=== PATIENT | female | born 1955 | race Caucasian/White ===

== ENCOUNTER 2016-09-29 16:54 | Observation (INO) | payer MEDICARE, OTHER ==
[2016-09-29 20:44] LABS: ABSOLUTE EOSINOPHILS # (AUTO) 0.1 10^3/uL (0.0-0.6); ABSOLUTE LYMPHOCYTES (AUTO) 1.5 10^3/uL (0.5-4.7); ABSOLUTE MONOCYTES (AUTO) 0.5 10^3/uL (0.1-1.4); ABSOLUTE NEUT (AUTO) 3.5 10^3/uL (1.7-8.2); BASOPHILS % (AUTO) 0.2 % (0-2); EOSINOPHILS % (AUTO) 1.1 % (0-6); HEMATOCRIT 27.2 % (36.0-47.0); HEMOGLOBIN 8.8 g/dL (12.0-15.5); HGB HCT DIFFERENCE -0.8; LYMPHOCYTES % (AUTO) 26.7 % (13-45); MEAN CORPUSCULAR HEMOGLOBIN 27.4 pg (27.0-33.4); MEAN CORPUSCULAR HGB CONC 32.3 g/dL (32.0-36.0); MEAN CORPUSCULAR VOLUME 85 fl (80-97); MONOCYTES % (AUTO) 9.6 % (3-13); RED BLOOD COUNT 3.22 10^6/uL (3.72-5.28); SEGMENTED NEUTROPHILS % (AUTO) 62.4 % (42-78); WHITE BLOOD COUNT 5.6 10^3/uL (4.0-10.5)
[2016-09-29 20:57] LABS: ALANINE AMINOTRANSFERASE 22 U/L (9-52); ALBUMIN 3.6 g/dL (3.5-5.0); ALKALINE PHOSPHATASE 97 U/L (38-126); ANION GAP 12 (5-19); ASPARTATE AMINO TRANSFERASE 16 U/L (14-36); BILIRUBIN,TOTAL 0.4 mg/dL (0.2-1.3); BLOOD UREA NITROGEN 14 mg/dL (7-20); CALCIUM 8.9 mg/dL (8.4-10.2); CARBON DIOXIDE 23 mmol/L (22-30); CHLORIDE 102 mmol/L (98-107); CREATININE RESULT 1.29 mg/dL (0.52-1.25); GLUCOSE 93 mg/dL (75-110); IRON 57 ug/dL (37-170); POTASSIUM 4.6 mmol/L (3.6-5.0); SODIUM 136.7 mmol/L (137-145); TOTAL PROTEIN 5.6 g/dL (6.3-8.2)
--- NOTE | 2016-09-29 20:59 | EKG REPORT ---
SEVERITY:- BORDERLINE ECG - SINUS RHYTHM LOW VOLTAGE THROUGHOUT : Confirmed by: Juan Manuel Clarke MD 29-Sep-2016 20:58:38
[2016-09-29 21:28] LABS: THYROID STIMULATING HORMONE < 0.02 uIU/mL (0.47-4.68)
[2016-09-29 21:57] LABS: APPEARANCE,URINE CLOUDY; BILIRUBIN,URINE NEGATIVE (NEGATIVE); GLUCOSE, URINE NEGATIVE (NEGATIVE); KETONES,URINE NEGATIVE (NEGATIVE); LEUKOCYTE ESTERASE,URINE LARGE (NEGATIVE); NITRITE,URINE NEGATIVE (NEGATIVE); PROTEIN,URINE NEGATIVE (NEGATIVE); URINE SPECIFIC GRAVITY 1.004; UROBILINOGEN,URINE NEGATIVE mg/dL (<2.0)
[2016-09-29] MEDS: KETOROLAC TROMETHAMINE INJ/PF 30 MG/1 ML SDV IV SCH (22:11)
[2016-09-29] MEDS: DOXYCYCLINE HYCLATE 100 MG TABLET PO SCH (22:16)
[2016-09-29] MEDS: AZTREONAM 1 GM in DEXTROSE 5%-WATER 50 ML IV SCH (22:17)
[2016-09-30] MEDS: KETOROLAC TROMETHAMINE INJ/PF 30 MG/1 ML SDV IV SCH ×3 (03:42→12:12)
[2016-09-30] MEDS ORDERED: ONDANSETRON HCL 8 MG TABLET PO PRN (04:49)
[2016-09-30] MEDS ORDERED: CARVEDILOL PHOSPHATE 40 MG PO SCH ×2 (05:00→15:00)
[2016-09-30] MEDS ORDERED: CYANOCOBALAMIN INJ SCH (05:00)
[2016-09-30] MEDS ORDERED: (PENDING PHARMACY ID) (Losartan/Hydrochlorothiazide [Losartan-Hctz 100-25 Mg Tab] 1 TAB) PO SCH (05:00)
[2016-09-30] MEDS ORDERED: HYDROCODONE BITARTRATE 40 MG PO SCH (05:00)
[2016-09-30] MEDS: GABAPENTIN 300 MG CAPSULE PO SCH ×3 (09:03→21:31)
[2016-09-30] MEDS: CLOPIDOGREL BISULFATE 75 MG TABLET PO SCH (09:04)
[2016-09-30] MEDS: ATORVASTATIN CALCIUM 40 MG TABLET PO SCH (09:04)
[2016-09-30] MEDS: DOXYCYCLINE HYCLATE 100 MG TABLET PO SCH ×2 (09:04→17:00)
[2016-09-30] MEDS: AZTREONAM 1 GM in DEXTROSE 5%-WATER 50 ML IV SCH ×3 (09:05→21:30)
[2016-09-30] MEDS: LUBIPROSTONE 24 MCG CAPSULE PO SCH ×2 (10:27→16:59)
[2016-09-30] MEDS: HYDROXYCHLOROQUINE SULFATE 200 MG TABLET PO SCH ×2 (10:27→17:00)
[2016-09-30] MEDS ORDERED: IRON SUCROSE COMPLEX INJ/PF 100 MG/5 ML SDV IV ONE (14:18)
[2016-09-30] MEDS ORDERED: KETOROLAC TROMETHAMINE INJ/PF 30 MG/1 ML SDV IV ONE (15:00)
[2016-09-30] MEDS ORDERED: HYDROCODONE/ACETAMINOPHEN 10-325 MG TABLET PO ONE (15:45)
[2016-09-30 16:03] LABS: ABSOLUTE LYMPHOCYTES (AUTO) 0.8 10^3/uL (0.5-4.7); ABSOLUTE MONOCYTES (AUTO) 0.5 10^3/uL (0.1-1.4); ABSOLUTE NEUT (AUTO) 5.9 10^3/uL (1.7-8.2); BASOPHILS % (AUTO) 0.1 % (0-2); EOSINOPHILS % (AUTO) 0.7 % (0-6); HEMOGLOBIN 8.3 g/dL (12.0-15.5); HGB HCT DIFFERENCE -0.1; MEAN CORPUSCULAR HEMOGLOBIN 27.7 pg (27.0-33.4); MEAN CORPUSCULAR VOLUME 84 fl (80-97); MONOCYTES % (AUTO) 7.4 % (3-13); RED BLOOD COUNT 2.99 10^6/uL (3.72-5.28); RED CELL DISTRIBUTION WIDTH 13.7 % (11.5-14.0); SEGMENTED NEUTROPHILS % (AUTO) 80.8 % (42-78); WHITE BLOOD COUNT 7.3 10^3/uL (4.0-10.5)
[2016-09-30 16:20] LABS: ALANINE AMINOTRANSFERASE 23 U/L (9-52); ALBUMIN 3.3 g/dL (3.5-5.0); ALKALINE PHOSPHATASE 95 U/L (38-126); ANION GAP 9 (5-19); ASPARTATE AMINO TRANSFERASE 18 U/L (14-36); BILIRUBIN,TOTAL 0.4 mg/dL (0.2-1.3); BLOOD UREA NITROGEN 20 mg/dL (7-20); CALCIUM 8.6 mg/dL (8.4-10.2); CARBON DIOXIDE 24 mmol/L (22-30); CHLORIDE 101 mmol/L (98-107); CREATININE RESULT 1.35 mg/dL (0.52-1.25); GLUCOSE 89 mg/dL (75-110); POTASSIUM 5.1 mmol/L (3.6-5.0); SODIUM 134.4 mmol/L (137-145); TOTAL PROTEIN 5.2 g/dL (6.3-8.2)
[2016-09-30] MEDS ORDERED: HYDROCODONE/ACETAMINOPHEN 10-325 MG TABLET PO SCH (18:00)
--- NOTE | 2016-09-30 18:08 | PDOC H&P ---
History of Present Illness Admission Date/PCP: 09/29/16 17:34 IAN MUÑOZ, History of Present Illness: VALENTE MUNOZ is a 61 year old female, she came to the office because of cellulitis of the right breast, she has a history of recurrent cellulitis of the right breast. She also complained of swelling of the the right side of the body, in the office, she was evaluated. She has cellulitis of the right breast on that is also increased extracellular volume of the lower extremities, right more than left. Past Medical History Cardiac Medical History: Reports: Congestive Heart Failure, Coronary Artery Disease, DVT, Myocardial Infarction - ? x 12 yrs ago, Hyperlipidema, Hypertension, Pulmonary Embolism Pulmonary Medical History: Reports: Bronchitis, Chronic Obstructive Pulmonary Disease (COPD) Endocrine Medical History: Reports: Hypothyroidism, Other - Syndrome of inappropriate ADH secretion Malignancy Medical History: Reports: Cervical Cancer, Ovarian Cancer GI Medical History: Reports: Gastroesophageal Reflux Disease, Hiatal Hernia - Repaired Musculoskeltal Medical History: Reports: Arthritis - Lupus, Fibromyalgia - Lupus Skin Medical History: Reports: Other - Systemic lupus erythematosus Psychiatric Medical History: Reports: Depression Hematology: Reports: Anemia Infectious Medical History: Reports: Clostridium Difficile - Was negative in October2015. Not yet successfully collected stool Past Surgical History Past Surgical History: Reports: Appendectomy, Cardiac Catheterization - X2, Section, Cholecystectomy, Coronary Stent - 3 stents, Herniorrhaphy, Hysterectomy, Orthopedic Surgery - Right knee, bilateral knee replacements and hip replacement metal plate in, Tonsillectomy Social History Smoking Status: Former Smoker Number of Years Smokin Last Time Smoked: 2012 Frequency of Alcohol Use: Occasional Hx Recreational Drug Use: No Drugs: None Hx Prescription Drug Abuse: No Family History Family History: Arthritis, COPD, Hyperlipidemia, Hypertension, Malignancy, Thyroid Disfunction Parental Family History Reviewed: Yes Children Family History Reviewed: Yes Sibling(s) Family History Reviewed.: Yes Medication/Allergy Home Medications: Atorvastatin Calcium 40 mg PO DAILY 08/25/16 Carvedilol Phosphate [Coreg CR 40 mg Ext. Release Capsule] 40 mg PO DAILY Clopidogrel Bisulfate [Clopidogrel] 75 mg PO DAILY 08/25/16 Cyanocobalamin (Vitamin B-12) [Vitamin B-12] 1 ml INJ ASDIR 08/25/16 Gabapentin 600 mg PO TID 08/25/16 Hydrocodone Bit/Acetaminophen [Hydrocodon-Acetaminophn 10-325] 10 - 325 mg PO Q6 08/25/16 Hydrocodone Bitartrate [Zohydro ER] 40 mg PO Q12 08/25/16 Hydroxychloroquine Sulfate 200 mg PO BID 08/25/16 Ipratropium/Albuterol Sulfate [Duoneb 3 ml Ampul] 2.5 mg IH PRN PRN 08/25/16 Levothyroxine Sodium 100 mcg PO DAILY #0 08/25/16 Losartan/Hydrochlorothiazide [Losartan-Hctz 100-25 mg Tab] 1 tab PO DAILY Lubiprostone [Amitiza 24 Mcg Capsule] 24 mcg PO BIDBS 08/25/16 Ondansetron HCl [Zofran 8 mg Tablet] 8 mg PO TIDP PRN 08/25/16 Promethazine HCl 25 mg PO Q8HP PRN 08/25/16 Tolvaptan [Samsca 15 mg Tablet] 15 mg PO DAILY@1930 #30 tablet 08/25/16 Allergies/Adverse Reactions: hydrocortisone [From Cortizone-10] Allergy (Severe, Verified 12/13/15 18:58) Anaphylaxis irbesartan [From Avapro] Allergy (Severe, Verified 12/13/15 18:58) swelling of face levofloxacin [From Levaquin] Allergy (Severe, Verified 12/13/15 18:58) GI upset/lips swell lidocaine [Lidocaine] Allergy (Severe, Verified 12/13/15 18:58) Anaphylaxis methadone [Methadone] Allergy (Severe, Verified 12/13/15 18:58) eyes swell nitrofurantoin macrocrystalline [From Macrobid] Allergy (Severe, Verified 10:34) Generalized edema Penicillins Allergy (Severe, Verified 12/13/15 18:58) eyes swelled pregabalin [From Lyrica] Allergy (Severe, Verified 12/13/15 18:58) Equilibrium Issues venom-honey bee [bee venom (honey bee)] Allergy (Verified 03/23/16 14:35) Anaphylaxis ciprofloxacin [From Cipro] Adverse Reaction (Severe, Verified 12/13/15 18:58) GI upset Review of Systems Constitutional: ABSENT: as per HPI, anorexia, chills, fatigue, fever(s), headache(s), night sweats, weakness, weight gain, weight loss, other Eyes: ABSENT: as per HPI, visual disturbances, other Ears: ABSENT: as per HPI, hearing changes, other Breasts: PRESENT: as per HPI Cardiovascular: ABSENT: as per HPI, chest pain, dyspnea on exertion, edema, orthropnea, palpitations, other Gastrointestinal: ABSENT: as per HPI, abdominal pain, bloating, coffee ground emesis, constipation, diarrhea, dysphagia, heartburn, hematemesis, hematochezia , melena, nausea, vomiting, other Endocrine: ABSENT: as per HPI, cold intolerance, flushing, heat intolerance, menstrual abnormalities, polydipsia, polyphagia, polyuria, other Physical Exam Vital Signs: Temp Pulse Resp BP Pulse Ox 97.9 F 76 16 121/52 L 99 09/30/16 15:30 09/30/16 15:30 09/30/16 15:30 09/30/16 15:30 09/30/16 15:30 Intake & Output 09/29/16 09/30/16 10/01/16 06:59 06:59 06:59 Intake Total 1081 740 Output Total 1400 400 Balance -319 340 Weight 98.1 kg General appearance: PRESENT: no acute distress Eye exam: PRESENT: PERRLA Mouth exam: PRESENT: moist Neck exam: PRESENT: full ROM Respiratory exam: PRESENT: clear to auscultation martínez Cardiovascular exam: PRESENT: +S1, +S2 GI/Abdominal exam: PRESENT: soft Extremities exam: PRESENT: pedal edema Musculoskeletal exam: PRESENT: other - lower extremity swelling Neurological exam: PRESENT: alert, CN II-XII grossly intact Skin exam: PRESENT: other - There is erythema, induration, tenderness of the right breast Results Laboratory Results: 09/30/16 15:55 09/30/16 15:55 09/29/16 09/29/16 09/29/16 20:25 20:25 20:25 WBC 5.6 RBC 3.22 L Hgb 8.8 L Hct 27.2 L MCV 85 MCH 27.4 MCHC 32.3 RDW 14.0 Plt Count 225 Seg Neutrophils % 62.4 Lymphocytes % 26.7 Monocytes % 9.6 Eosinophils % 1.1 Basophils % 0.2 Absolute Neutrophils 3.5 Absolute Lymphocytes 1.5 Absolute Monocytes 0.5 Absolute Eosinophils 0.1 Absolute Basophils 0.0 Sodium 136.7 L Potassium 4.6 Chloride 102 Carbon Dioxide 23 Anion Gap 12 BUN 14 Creatinine 1.29 H Est GFR ( Amer) 51 L Est GFR (Non-Af Amer) 42 L Glucose 93 Calcium 8.9 Iron 57 TIBC % Saturation Ferritin 143.00 Total Bilirubin 0.4 AST 16 ALT 22 Alkaline Phosphatase 97 Total Protein 5.6 L Albumin 3.6 TSH < 0.02 L Free T4 1.86 Free T3 pg/mL 3.40 Urine Color Urine Appearance Urine pH Ur Specific [place] Urine Protein Urine Glucose (UA) Urine Ketones Urine Blood Urine Nitrite Ur Leukocyte Esterase Urine WBC (Auto) Urine RBC (Auto) 09/29/16 09/29/16 09/30/16 20:25 21:00 15:55 WBC 7.3 RBC 2.99 L Hgb 8.3 L Hct 25.0 L MCV 84 MCH 27.7 MCHC 33.0 RDW 13.7 Plt Count 198 Seg Neutrophils % 80.8 H Lymphocytes % 11.0 L Monocytes % 7.4 Eosinophils % 0.7 Basophils % 0.1 Absolute Neutrophils 5.9 Absolute Lymphocytes 0.8 Absolute Monocytes 0.5 Absolute Eosinophils 0.0 Absolute Basophils 0.0 Sodium Potassium Chloride Carbon Dioxide Anion Gap BUN Creatinine Est GFR ( Amer) Est GFR (Non-Af Amer) Glucose Calcium Iron 57 TIBC 217 L % Saturation 26 Ferritin Total Bilirubin AST ALT Alkaline Phosphatase Total Protein Albumin TSH Free T4 Free T3 pg/mL Urine Color YELLOW Urine Appearance CLOUDY Urine pH 6.0 Ur Specific [place] 1.004 Urine Protein NEGATIVE Urine Glucose (UA) NEGATIVE Urine Ketones NEGATIVE Urine Blood SMALL H Urine Nitrite NEGATIVE Ur Leukocyte Esterase LARGE H Urine WBC (Auto) 161 Urine RBC (Auto) 4 09/30/16 15:55 WBC RBC Hgb Hct MCV MCH MCHC RDW Plt Count Seg Neutrophils % Lymphocytes % Monocytes % Eosinophils % Basophils % Absolute Neutrophils Absolute Lymphocytes Absolute Monocytes Absolute Eosinophils Absolute Basophils Sodium 134.4 L Potassium 5.1 H Chloride 101 Carbon Dioxide 24 Anion Gap 9 BUN 20 Creatinine 1.35 H Est GFR ( Amer) 48 L Est GFR (Non-Af Amer) 40 L Glucose 89 Calcium 8.6 Iron TIBC % Saturation Ferritin Total Bilirubin 0.4 AST 18 ALT 23 Alkaline Phosphatase 95 Total Protein 5.2 L Albumin 3.3 L TSH Free T4 Free T3 pg/mL Urine Color Urine Appearance Urine pH Ur Specific [place] Urine Protein Urine Glucose (UA) Urine Ketones Urine Blood Urine Nitrite Ur Leukocyte Esterase Urine WBC (Auto) Urine RBC (Auto) Impressions: Chest X-Ray 09/29/16 00:00 IMPRESSION: NO ACUTE CARDIOPULMONARY PROCESS. NO SIGNIFICANT CHANGE FROM PRIOR STUDY. Assessment & Plan - Diagnosis (1) Cellulitis of right breast Is this a current diagnosis for this admission?: YesPlan: Patient is admitted and she is started on intravenous aztreonam and Doxycycline (2) Syndrome of inappropriate ADH (SIADH) secretion Is this a current diagnosis for this admission?: Yes (3) Chronic pain syndrome Is this a current diagnosis for this admission?: Yes
[2016-09-30] MEDS: TOLVAPTAN 15 MG TABLET PO SCH (18:53)
[2016-09-30] MEDS: HYDROCODONE/ACETAMINOPHEN 10-325 MG TABLET PO SCH (21:31)
[2016-10-01] MEDS: HYDROCODONE/ACETAMINOPHEN 10-325 MG TABLET PO SCH ×6 (02:41→22:03)
[2016-10-01] MEDS: AZTREONAM 1 GM in DEXTROSE 5%-WATER 50 ML IV SCH ×3 (06:19→21:58)
[2016-10-01] MEDS: GABAPENTIN 300 MG CAPSULE PO SCH ×3 (06:27→21:58)
[2016-10-01] MEDS: LUBIPROSTONE 24 MCG CAPSULE PO SCH ×2 (07:53→17:58)
[2016-10-01] MEDS: ATORVASTATIN CALCIUM 40 MG TABLET PO SCH (10:06)
[2016-10-01] MEDS: PROMETHAZINE HCL 25 MG TABLET PO PRN ×2 (10:06→18:00)
[2016-10-01] MEDS: DOXYCYCLINE HYCLATE 100 MG TABLET PO SCH ×2 (10:07→17:59)
[2016-10-01] MEDS: LOSARTAN POTASSIUM 50 MG TABLET PO SCH (10:07)
[2016-10-01] MEDS: HYDROCHLOROTHIAZIDE 25 MG TABLET PO SCH (10:08)
[2016-10-01] MEDS: CLOPIDOGREL BISULFATE 75 MG TABLET PO SCH (10:09)
[2016-10-01] MEDS: HYDROXYCHLOROQUINE SULFATE 200 MG TABLET PO SCH ×2 (10:09→17:59)
--- NOTE | 2016-10-01 18:18 | PDOC PROGRESS REPORT ---
Subjective Progress Note for:: 10/08/16 Subjective:: Patient was admitted for observation because of cellulitis of the right breast, she is on IV antibiotic she complained of pain pain in the right hip area, bilateral hip x-ray was done it showed right total hip arthroplasty. There is no evidence of hardware complication no dislocation or fracture. Also found was the degenerative changes in the right hip including joint space narrowing and osteophyte formation. There is fusion noted Physical Exam Vital Signs: Temp Pulse Resp BP Pulse Ox 97.9 F 83 18 145/63 H 100 10/01/16 16:02 10/01/16 16:02 10/01/16 16:02 10/01/16 16:02 10/01/16 16:02 Intake & Output 09/30/16 10/01/16 10/02/16 06:59 06:59 06:59 Intake Total 1081 2800 960 Output Total 1400 2500 1000 Balance -319 300 -40 Weight 98.1 kg 97.5 kg General appearance: PRESENT: no acute distress Eye exam: PRESENT: PERRLA Respiratory exam: PRESENT: clear to auscultation martínez Cardiovascular exam: PRESENT: +S1, +S2 Results Laboratory Results: 09/30/16 15:55 09/30/16 15:55 09/29/16 21:00 Catheterized Urine Urine Culture - Final Serratia Marcescens Impressions: Chest X-Ray 09/29/16 00:00 IMPRESSION: NO ACUTE CARDIOPULMONARY PROCESS. NO SIGNIFICANT CHANGE FROM PRIOR STUDY. Hip X-Ray 10/01/16 00:00 IMPRESSION: No acute abnormality identified in the pelvis. Right total hip arthroplasty intact without complication. Degenerate changes noted in the left hip. Assessment & Plan - Diagnosis (1) Cellulitis of right breast Is this a current diagnosis for this admission?: Yes (2) Syndrome of inappropriate ADH (SIADH) secretion Is this a current diagnosis for this admission?: Yes (3) Chronic pain syndrome Is this a current diagnosis for this admission?: Yes (4) Urinary tract infection Qualifiers: Urinary tract infection type: site unspecified Hematuria presence: without hematuria Qualified Code(s): N39.0 - Urinary tract infection, site not specified Is this a current diagnosis for this admission?: YesPlan: She has serretia UTI
[2016-10-01] MEDS: CARVEDILOL 12.5 MG TABLET PO SCH (21:57)
[2016-10-01] MEDS: TOLVAPTAN 15 MG TABLET PO SCH (22:02)
[2016-10-02] MEDS: HYDROCODONE/ACETAMINOPHEN 10-325 MG TABLET PO SCH ×5 (02:06→18:08)
[2016-10-02] MEDS: GABAPENTIN 300 MG CAPSULE PO SCH ×2 (06:23→14:45)
[2016-10-02] MEDS: AZTREONAM 1 GM in DEXTROSE 5%-WATER 50 ML IV SCH ×2 (06:24→14:44)
--- NOTE | 2016-10-02 08:17 | Physician Advisory Note ---
Physician Advisor ProgressNote .: Pursuant to the plan for [facility], I have reviewed the medical record for this patient. Physician Advisor Statement: Possible documentation opportunities if attending agrees: 1. Medical Necessity: please see bolded points below. 2. "chronic diastolic CHF with mild pulmonary HTN" [ECHO also showed mod Aortic Regurg] 3. "obesity with BMI 40.2" 4. "Mild Acute Kidney Injury" [baseline Cr 0.91-1.00 on 08/25/17, Cr 1.35 on arrival] 5. "Anemia of " [Ac Blood Loss due to ___? Chronic nutritional/blood loss ___ deficiency? Chronic Kidney dz? Chronic hypothyroidism? ... - can't say just 'Anemia of Chronic Dz' anymore without specifying the type of dz] - Hgb was 11.8 on 07/10, 10.5 on 08/25, now 8.8 & 8.3. As always, please document each day the potential clinical problems you are concerned could occur if pt not kept in hospital for tx at this time. Discussion: 61yo female w/ chronic co-morbidities including chr diast CHF, CAD/MD, HTN, PE, COPD, SIADH, hypothyroidism, cervical CA, ovarian CA, fibromyalgia, SLE, chr pain - presented 09/30 w/recurrence of Rt breast cellulitis. (+) Na 134.4, K 5.1, Hgb 8.3, Cr 1.35, TIBC 217, (+)U/A. Attending ordered IV Aztreonam & po doxy. Status: AFebrile, VSS, no leukocytosis. Cellulitis severity/extent unclear from documentation. No reported failing of outpt tx prior to arrival. Appropriate to bring in as Outpt Observation initially, as was also stated by EHR. After 1 MN of care, documentation needs to indicate reasons pt could not go home for continued care outpt. Reviewers are not allowed to assume anything. If cellulitis is not sufficiently improved after 1st MN of hospital care for pt to be safely d/c'd home, & attending documents this, status can be appropriately changed to Inpatient at that point. Of course, if cellulitis IS improved sufficiently after 1st MN, then a reviewer will expect pt should be d/c'd home at that point, unless other issues are documented that require continued hospital level care. - If pt has h/o [id number] cellulitis, that would also be useful to document. Thanks for your help with documentation accuracy/specificity improvement! Bettie uHnt MD [facility] Physician Advisor, Fellow of [facility], [place]
[2016-10-02] MEDS: CLOPIDOGREL BISULFATE 75 MG TABLET PO SCH (10:35)
[2016-10-02] MEDS: LUBIPROSTONE 24 MCG CAPSULE PO SCH ×2 (10:35→18:08)
[2016-10-02] MEDS: LOSARTAN POTASSIUM 50 MG TABLET PO SCH (10:35)
[2016-10-02] MEDS: ATORVASTATIN CALCIUM 40 MG TABLET PO SCH (10:36)
[2016-10-02] MEDS: HYDROCHLOROTHIAZIDE 25 MG TABLET PO SCH (10:36)
[2016-10-02] MEDS: DOXYCYCLINE HYCLATE 100 MG TABLET PO SCH ×2 (10:36→18:07)
[2016-10-02] MEDS: HYDROXYCHLOROQUINE SULFATE 200 MG TABLET PO SCH ×2 (10:37→18:08)
[2016-10-02] MEDS: CARVEDILOL 12.5 MG TABLET PO SCH (10:37)
[2016-10-02] MEDS: PROMETHAZINE HCL 25 MG TABLET PO PRN (11:56)
[2016-10-02 14:24] LABS: PTH INTACT 69 pg/mL (15-65)
[2016-10-02] MEDS ORDERED: FUROSEMIDE INJ/PF 40 MG/4 ML SDV IV ONE (17:25)
[2016-10-02] MEDS ORDERED: FUROSEMIDE INJ/PF 100 MG/10 ML SDV IV ONE (18:15)
--- NOTE | 2016-10-02 18:16 | PDOC DISCHARGE SUMMARY ---
General - Admit/Disc Date/PCP Admission Date/Primary Care Provider: 09/29/16 17:34 IAN MUÑOZ, Discharge Date: 10/02/16 - Discharge Diagnosis (1) Cellulitis of right breast Is this a current diagnosis for this admission?: Yes (2) Syndrome of inappropriate ADH (SIADH) secretion Is this a current diagnosis for this admission?: Yes (3) Chronic pain syndrome Is this a current diagnosis for this admission?: Yes (4) Urinary tract infection Is this a current diagnosis for this admission?: Yes - Additional Information Discharge Diet: As Tolerated Discharge Activity: Activity As Tolerated Home Medications: Atorvastatin Calcium 40 mg PO DAILY 08/25/16 Carvedilol Phosphate [Coreg CR 40 mg Ext. Release Capsule] 40 mg PO DAILY Clopidogrel Bisulfate [Clopidogrel] 75 mg PO DAILY 08/25/16 Cyanocobalamin (Vitamin B-12) [Vitamin B-12] 1 ml INJ ASDIR 08/25/16 Gabapentin 600 mg PO TID 08/25/16 Hydrocodone Bit/Acetaminophen [Hydrocodon-Acetaminophn 10-325] 10 - 325 mg PO Q6 08/25/16 Hydrocodone Bitartrate [Zohydro ER] 40 mg PO Q12 08/25/16 Hydroxychloroquine Sulfate 200 mg PO BID 08/25/16 Ipratropium/Albuterol Sulfate [Duoneb 3 ml Ampul] 2.5 mg IH PRN PRN 08/25/16 Levothyroxine Sodium 100 mcg PO DAILY #0 08/25/16 Losartan/Hydrochlorothiazide [Losartan-Hctz 100-25 mg Tab] 1 tab PO DAILY Lubiprostone [Amitiza 24 Mcg Capsule] 24 mcg PO BIDBS 08/25/16 Ondansetron HCl [Zofran 8 mg Tablet] 8 mg PO TIDP PRN 08/25/16 Promethazine HCl 25 mg PO Q8HP PRN 08/25/16 Tolvaptan [Samsca 15 mg Tablet] 15 mg PO DAILY@1930 #30 tablet 08/25/16 Ciprofloxacin HCl [Cipro 500 mg Tablet] 500 mg PO BID #14 tablet 10/02/16 History of Present Illness History of Present Illness: VALENTE Hassan ROULAANJALI is a 61 year old female, she came to the office because of cellulitis of the right breast, she has a history of recurrent cellulitis of the right breast. She also complained of swelling of the the right side of the body, in the office, she was evaluated. She has cellulitis of the right breast on that is also increased extracellular volume of the lower extremities, right more than left. Hospital Course Hospital Course: Patient was admitted because of cellulitis of the right breast, she was also found to have Serratia UTI. Because of concern that she may have occult infection and because of that. Nuclear medicine white blood cell scan of the whole body was done and it was negative for any abscess or any infection process. She was admitted for observation. She'll be discharged home today Physical Exam Vital Signs: Temp Pulse Resp BP Pulse Ox 97.3 F 71 18 146/64 H 100 10/02/16 16:40 10/02/16 16:40 10/02/16 16:40 10/02/16 16:40 10/02/16 16:40 Intake & Output 10/01/16 10/02/16 10/03/16 06:59 06:59 06:59 Intake Total 2800 2380 722 Output Total 2500 3900 1500 Balance 300 1520 -778 Weight 97.5 kg 99.6 kg General appearance: PRESENT: no acute distress Eye exam: PRESENT: PERRLA Respiratory exam: PRESENT: clear to auscultation martínez Cardiovascular exam: PRESENT: +S1, +S2 Neurological exam: PRESENT: alert Results Laboratory Results: 09/30/16 15:55 09/30/16 15:55 09/30/16 18:45 PTH Intact 69 H Impressions: Chest X-Ray 09/29/16 00:00 IMPRESSION: NO ACUTE CARDIOPULMONARY PROCESS. NO SIGNIFICANT CHANGE FROM PRIOR STUDY. Hip X-Ray 10/01/16 00:00 IMPRESSION: No acute abnormality identified in the pelvis. Right total hip arthroplasty intact without complication. Degenerate changes noted in the left hip. WBC Scan Nuclear Medicine 10/02/16 06:30 IMPRESSION: No focal ectopic uptake worrisome for focal abscess
[2016-10-02] MEDS: TOLVAPTAN 15 MG TABLET PO SCH (18:57)
[2016-10-02 20:56] VITALS: BP 127/61
[2016-10-03 07:12] LABS: VITAMIN D 1,25 DIHYDROXY <5.0 pg/mL (19.9-79.3)
[2016-10-11] MEDS ORDERED: CYANOCOBALAMIN (VITAMIN B-12) INJ 1000 MCG/1 ML VIAL IM SCH (10:00)
== END 2016-10-02 21:15 | disposition home or self-care (01) ==
LOC: 3S 16:54 → UNDOADMOB 16:54 → 3S 17:30 → UNDOADMOB 17:30 → OBSVTOIN 17:34 → INTOOBSV 17:34 → 3S 17:34
PROVIDERS: ADMIT Internal Medicine; ATTEND Internal Medicine
DX: N61.0 Mastitis without abscess (principal); E22.2 Syndrome of inappropriate secretion of antidiuretic hormone; G89.4 Chronic pain syndrome; N39.0 Urinary tract infection, site not specified; I50.9 Heart failure, unspecified; I25.10 Atherosclerotic heart disease of native coronary artery without angina pectoris; I25.2 Old myocardial infarction; E78.5 Hyperlipidemia, unspecified; I10 Essential (primary) hypertension; J44.9 Chronic obstructive pulmonary disease, unspecified; Z86.711 Personal history of pulmonary embolism; E03.9 Hypothyroidism, unspecified; K21.9 Gastro-esophageal reflux disease without esophagitis; L93.0 Discoid lupus erythematosus; F32.9 Major depressive disorder, single episode, unspecified; Z87.891 Personal history of nicotine dependence; D50.9 Iron deficiency anemia, unspecified
CPT/HCPCS: 36415 ×2; 87040; 87086; 84439; 82962; 82728; 83540; 83550; 84443; 82570; 85025 ×2; 87088; 80076; 80048; 80053; 83970; 81001; 87186; 84481; 82652; 71020; 73522; 78806; 93005; 93010; G0378 ×4; G0379; A9569; A9521; J1756; A9270 ×29; J1940; J1885 ×2; J3490 ×4; S0119

== ENCOUNTER 2016-11-08 06:09 | Inpatient (IN) | payer MEDICARE, OTHER ==
--- NOTE | 2016-11-08 06:53 | ER Document Report ---
ED General - General Time seen by provider: 06:50 Mode of Arrival: Ambulatory Information source: Patient TRAVEL OUTSIDE OF THE [place] IN LAST 30 DAYS: No - HPI Onset: This morning - see HPI note; 03:00 Associated symptoms: Fever, Shortness of breath <NADINE BLOUNT - Last Filed: 11/08/16 08:19> <CHAYAFATEMEH - Last Filed: 11/08/16 17:48> - General Stated Complaint: ALTERED MENTAL STATUS Notes: Patient is a 61 year old female presenting to the emergency department for altered mental status. Patient started becoming altered around 03:00 this morning. Patient is in the ED with family members who state that the patient has episodes where she gets low potassium and sodium. Patient has been evaluated for this before the emergency department. Patient has a fever of 103.8 F and was given Tylenol via EMS. Patient was found to have an O2 saturation in the 80s and was placed on O2. Patient was supposed to see a surgeon today to possibly remove a growth on her right hip. Patient's PCP is Dr. Hilliard. (NADINE BLOUNT) - Related Data Allergies/Adverse Reactions: hydrocortisone [From Cortizone-10] Allergy (Severe, Verified 11/08/16 07:03) Anaphylaxis irbesartan [From Avapro] Allergy (Severe, Verified 11/08/16 07:03) swelling of face levofloxacin [From Levaquin] Allergy (Severe, Verified 11/08/16 07:03) GI upset/lips swell lidocaine [Lidocaine] Allergy (Severe, Verified 11/08/16 07:03) Anaphylaxis methadone [Methadone] Allergy (Severe, Verified 11/08/16 07:03) eyes swell nitrofurantoin macrocrystalline [From Macrobid] Allergy (Severe, Verified 07:03) Generalized edema Penicillins Allergy (Severe, Verified 11/08/16 07:03) eyes swelled pregabalin [From Lyrica] Allergy (Severe, Verified 11/08/16 07:03) Equilibrium Issues venom-honey bee [bee venom (honey bee)] Allergy (Verified 11/08/16 07:03) Anaphylaxis ciprofloxacin [From Cipro] Adverse Reaction (Severe, Verified 11/08/16 07:03) GI upset Home Medications: Current Home Medications Atorvastatin Calcium [Lipitor 10 mg Tablet] 10 mg PO QHS 11/08/16 [History] Carvedilol Phosphate [Coreg CR 40 mg Ext. Release Capsule] 40 mg PO DAILY [History] Clopidogrel Bisulfate [Plavix 75 mg Tablet] 75 mg PO DAILY 11/08/16 [History] Cyanocobalamin (Vitamin B-12) [Vitamin B-12] 1 ml SQ Q30MP PRN 11/08/16 [History ] Cyclobenzaprine HCl [Flexeril 10 mg Tablet] 10 mg PO Q8 11/08/16 [History] Gabapentin [Neurontin] 600 mg PO TID 11/08/16 [History] Hydrocodone Bit/Acetaminophen [Hydrocodon-Acetaminophn 10-325] 1 tab PO Q6 11/08 [History] Hydrocodone Bitartrate [Zohydro ER] 40 mg PO BID 11/08/16 [History] Hydroxychloroquine Sulfate [Plaquenil 200 mg Tablet] 200 mg PO BID 11/08/16 [ History] Levothyroxine Sodium [Synthroid] 200 mcg PO DAILY 11/08/16 [History] Losartan/Hydrochlorothiazide [Hyzaar 100-25 Tablet] 1 tab PO DAILY 11/08/16 [ History] Lubiprostone [Amitiza 24 Mcg Capsule] 24 mcg PO BID 11/08/16 [History] Meloxicam [Mobic 7.5 mg Tablet] 7.5 mg PO DAILY 11/08/16 [History] Ondansetron HCl [Zofran 8 mg Tablet] 8 mg PO TIDP PRN 11/08/16 [History] Tolvaptan [Samsca 15 mg Tablet] 15 mg PO DAILY 11/08/16 [History] Past Medical History - General Information source: Relative, Emergency Med Personnel - Social History Smoking Status: Unknown if Ever Smoked Family History: Arthritis, COPD, Hyperlipidemia, Hypertension, Malignancy, Thyroid Disfunction - Past Medical History Cardiac Medical History: Reports: Hx Congestive Heart Failure, Hx Coronary Artery Disease, Hx DVT, Hx Heart Attack - ? x 12 yrs ago, Hx Hypercholesterolemia, Hx Hypertension, Hx Pulmonary Embolism Pulmonary Medical History: Reports: Hx Bronchitis, Hx COPD Endocrine Medical History: Reports: Hx Hypothyroidism, Other - SIADH Renal/ Medical History: Reports: Hx Ovarian Cysts Malignancy Medical History: Reports: Hx Cervical Cancer, Hx Ovarian Cancer GI Medical History: Reports: Hx Gastroesophageal Reflux Disease, Hx Hiatal Hernia - Repaired, Hx Irritable Bowel, Hx Colonoscopy, Hx Endoscopy Musculoskeltal Medical History: Reports Hx Arthritis - Lupus, Reports Hx Fibromyalgia - Lupus, Reports Hx Musculoskeletal Deformity, Reports Hx Musculoskeletal Trauma Skin Medical History: Reports Hx Cellulitis - Recently treated, right breast Psychiatric Medical History: Reports: Hx Anxiety, Hx Depression Traumatic Medical History: Reports: Hx Fractures - Knee and hip Infectious Medical History: Reports: Hx C-Diff - Was negative in October2015. Not yet successfully collected stool Past Surgical History: Reports: Hx Appendectomy, Hx Bowel Surgery - Polyps, adhesions, Hx Cardiac Catheterization - X2, Hx Cardiac Surgery - 2 stents 2014, Hx Section, Hx Cholecystectomy, Hx Coronary Stent - 3 stents, Hx Herniorrhaphy, Hx Hysterectomy, Hx Orthopedic Surgery - Right knee, bilateral knee replacements and hip replacement metal plate in, Hx Tonsillectomy - Immunizations Immunizations up to date: Yes Hx Pneumococcal Vaccination: 05/20/11 <NADINE BLOUNT - Last Filed: 11/08/16 08:19> Review of Systems - Review of Systems -: Yes ROS unobtainable due to patient's medical condition <NADINE BLOUNT - Last Filed: 11/08/16 08:19> Physical Exam - Vital signs Interpretation: Tachypneic, Febrile - 103.8 - General General appearance: Other - confused and altered In distress: Mild - HEENT Head: Normocephalic, Atraumatic Eyes: Normal Pupils: PERRL Mucous membranes: Moist - Respiratory Respiratory status: No respiratory distress Chest status: Nontender Breath sounds: Rhonchi, Wheezing Chest palpation: Normal - Cardiovascular Rhythm: Regular Heart sounds: Normal auscultation Murmur: No - Abdominal Inspection: Obese Distension: No distension Bowel sounds: Normal Tenderness: Nontender Organomegaly: No organomegaly - Back Back: Normal, Nontender - Extremities General upper extremity: Normal inspection, Normal ROM, Normal strength General lower extremity: Normal inspection, Normal ROM, Normal strength. No: Edema - Neurological Neuro grossly intact: Yes Cognition: Confused [place] Coma Scale Eye Opening: Spontaneous [place] Coma Scale Verbal: Confused [place] Coma Scale Motor: Obeys Commands [place] Coma Scale Total: 14 Speech: Normal - Psychological Associated symptoms: Normal affect, Normal mood - Skin Skin Temperature: Warm Skin Moisture: Dry <NADINE BLOUNT - Last Filed: 11/08/16 08:19> <FATEMEH LARKIN - Last Filed: 11/08/16 17:48> - Vital signs Vitals: Resp 28 H 11/08/16 06:21 Resp 28 H 11/08/16 06:21 (NADINE BLOUNT) Course - Laboratory Result Diagrams: 11/08/16 06:40 11/08/16 06:40 <NADINE BLOUNT - Last Filed: 11/08/16 08:19> - Laboratory Result Diagrams: 11/08/16 06:40 11/08/16 06:40 <FATEMEH LARKIN - Last Filed: 11/08/16 17:48> - Vital Signs Vital signs: Temp Pulse Resp BP Pulse Ox 98.0 F 73 11 L 97/50 L 99 11/08/16 16:45 11/08/16 15:09 11/08/16 17:01 11/08/16 17:01 11/08/16 17:01 - Laboratory Laboratory results interpreted by me: 11/08/16 11/08/16 11/08/16 06:40 06:40 06:40 WBC 12.7 H Hgb 11.3 L Hct 33.0 L RDW 14.7 H Seg Neuts % (Manual) 86 H Lymphocytes % (Manual) 7 L Abs Neuts (Manual) 10.9 H VBG pH 7.25 L Sodium 125.9 L Potassium 5.7 H Chloride 95 L Carbon Dioxide 18 L BUN 37 H Creatinine 1.89 H Est GFR ( Amer) 33 L Est GFR (Non-Af Amer) 27 L Phosphorus Alkaline Phosphatase 164 H Creatine Kinase 194 H TSH Urine Protein Urine Blood Urine Nitrite Ur Leukocyte Esterase 11/08/16 11/08/16 11/08/16 06:40 06:40 06:51 WBC Hgb Hct RDW Seg Neuts % (Manual) Lymphocytes % (Manual) Abs Neuts (Manual) VBG pH Sodium Potassium Chloride Carbon Dioxide BUN Creatinine Est GFR ( Amer) Est GFR (Non-Af Amer) Phosphorus 4.6 H Alkaline Phosphatase Creatine Kinase TSH < 0.02 L Urine Protein 30 H Urine Blood SMALL H Urine Nitrite POSITIVE H Ur Leukocyte Esterase LARGE H Critical Care Note - Critical Care Note Total time excluding time spent on procedures (mins): 40 <FATEMEH LARKIN - Last Filed: 11/08/16 17:48> Discharge <NADINE BLOUNT - Last Filed: 11/08/16 08:19> - Discharge Admitting Provider: [facility] Unit Admitted: [facility] <FATEMEH LARKIN - Last Filed: 11/08/16 17:48> - Discharge Clinical Impression: Hyponatremia syndrome, History of SIADH, Dehydration, Metabolic acidosis, Hyperkalemia Urinary tract infection Qualifiers: Urinary tract infection type: site unspecified Hematuria presence: without hematuria Qualified Code(s): N39.0 - Urinary tract infection, site not specified Fever Qualifiers: Fever type: unspecified Qualified Code(s): R50.9 - Fever, unspecified Leukocytosis Qualifiers: Leukocytosis type: other Qualified Code(s): D72.828 - Other elevated white blood cell count Condition: Good Disposition: ADMITTED INPATIENT Scribe Attestation: 11/08/16 07:43 I personally performed the services described in the documentation, reviewed and edited the documentation which was dictated to the scribe in my presence, and it accurately records my words and actions. (FATEMEH LARKIN) Scribe Documentation - Scribe Written by Scribe:: Nadine Blount 11/08/16 08:20 acting as scribe for :: Chaya <NADINE BLOUNT - Last Filed: 11/08/16 08:19>
[2016-11-08] MEDS ORDERED: IPRATROPIUM/ALBUTEROL 0.5-2.5 MG/3 ML AMPUL NEB ONE (06:55)
[2016-11-08 07:01] LABS: VENOUS BLOOD HCO3 21.3 mmol/L (20-32); VENOUS BLOOD PCO2 49.3 mmHg (35-63); VENOUS BLOOD PH 7.25 (7.30-7.42)
[2016-11-08 07:09] LABS: PROTHROMBIN TIME 12.6 SEC (11.4-15.4)
[2016-11-08 07:10] LABS: HEMOGLOBIN 11.3 g/dL (12.0-15.5); HGB HCT DIFFERENCE 0.9; MEAN CORPUSCULAR HEMOGLOBIN 27.5 pg (27.0-33.4); MEAN CORPUSCULAR HGB CONC 34.3 g/dL (32.0-36.0); MEAN CORPUSCULAR VOLUME 80 fl (80-97); RED BLOOD COUNT 4.11 10^6/uL (3.72-5.28); RED CELL DISTRIBUTION WIDTH 14.7 % (11.5-14.0); WHITE BLOOD COUNT 12.7 10^3/uL (4.0-10.5)
[2016-11-08 07:13] LABS: APPEARANCE,URINE CLOUDY; BILIRUBIN,URINE NEGATIVE (NEGATIVE); GLUCOSE, URINE NEGATIVE (NEGATIVE); KETONES,URINE NEGATIVE (NEGATIVE); LEUKOCYTE ESTERASE,URINE LARGE (NEGATIVE); NITRITE,URINE POSITIVE (NEGATIVE); PROTEIN,URINE 30 mg/dL (NEGATIVE); URINE SPECIFIC GRAVITY 1.009; UROBILINOGEN,URINE NEGATIVE mg/dL (<2.0)
[2016-11-08] MEDS ORDERED: CEFTRIAXONE 1 GM/D5W RTU 50 ML IV ONE (07:21)
[2016-11-08 07:28] LABS: ALANINE AMINOTRANSFERASE 28 U/L (9-52); ALBUMIN 4.3 g/dL (3.5-5.0); ALKALINE PHOSPHATASE 164 U/L (38-126); ANION GAP 13 (5-19); ASPARTATE AMINO TRANSFERASE 29 U/L (14-36); BILIRUBIN,TOTAL 1.1 mg/dL (0.2-1.3); BLOOD UREA NITROGEN 37 mg/dL (7-20); CALCIUM 9.4 mg/dL (8.4-10.2); CARBON DIOXIDE 18 mmol/L (22-30); CHLORIDE 95 mmol/L (98-107); CREATINE KINASE 194 U/L (30-135); CREATININE RESULT 1.89 mg/dL (0.52-1.25); GLUCOSE 95 mg/dL (75-110); MAGNESIUM 1.8 mg/dL (1.6-2.3); POTASSIUM 5.7 mmol/L (3.6-5.0); SODIUM 125.9 mmol/L (137-145); TOTAL PROTEIN 6.8 g/dL (6.3-8.2)
[2016-11-08] MEDS ORDERED: NORMAL SALINE 1000 ML 1,000 ML IV ONE (07:33)
[2016-11-08 07:38] LABS: BASOPHILS % (MANUAL) 0 % (0-2); EOSINOPHILS % (MANUAL) 2 % (0-6); LYMPHOCYTES % (MANUAL) 7 % (13-45); TOTAL CELLS COUNTED 100
[2016-11-08 07:39] LABS: ANISOCYTOSIS SLIGHT; BURR CELLS 1+; POIKILOCYTOSIS 1+
[2016-11-08 07:40] LABS: CREATINE KINASE MB 1.29 ng/mL (<4.55); TROPONIN I < 0.012 ng/mL
--- NOTE | 2016-11-08 08:31 | EKG REPORT ---
SEVERITY:- BORDERLINE ECG - SINUS TACHYCARDIA WITH IRREGULAR RATE 68-129 LOW VOLTAGE THROUGHOUT : Confirmed by: Juan Manuel Clarke MD 08-Nov-2016 08:31:05
[2016-11-08 14:14] LABS: LIPASE 34.8 U/L (23-300); MAGNESIUM 1.8 mg/dL (1.6-2.3); PHOSPHORUS 4.6 mg/dL (2.5-4.5)
[2016-11-08 14:45] LABS: THYROID STIMULATING HORMONE < 0.02 uIU/mL (0.47-4.68)
[2016-11-08] MEDS ORDERED: ENOXAPARIN SODIUM INJ 30 MG/0.3 ML DISP.SYRIN SUBCUT ONE (15:00)
[2016-11-08 15:33] LABS: CREATINE KINASE MB 1.43 ng/mL (<4.55)
[2016-11-08 15:36] LABS: TROPONIN I < 0.012 ng/mL
[2016-11-08 15:37] LABS: URINE BARBITURATES SCREEN NEGATIVE; URINE METHADONE SCREEN NEGATIVE; URINE OPIATES LOW UNCONFIRMED POSITIVE; URINE PHENCYCLIDINE SCREEN NEGATIVE
[2016-11-08] MEDS: NORMAL SALINE 1000 ML 1,000 ML IV PRN (16:33)
--- NOTE | 2016-11-08 18:31 | PDOC H&P ---
History of Present Illness Admission Date/PCP: 11/08/16 13:26 History of Present Illness: VALENTE MUNOZ is a 61 year old female, she has multiple comorbid conditions , she came to the emergency room this morning because of the altered mental status , she was obtunded and poorly responsive, she also had fever with 104 temperature, and emergency room she was evaluated she was found to have urinary tract infection. History taking was a challenge because she is obtunded. She had blood test in the emergency room, there was leukocytosis, metabolic acidosis, venous blood glucose was gone and the pH was 7.2, this suggest metabolic acidosis. She has a history of urinary incontinence/urinary retention and she does self catheterization, this increases risk of UTI. She also had hypotension in the ED , she is known to have SIADH, The sodium was 129 , she was treated with normal saline intravenously in the ED Past Medical History Cardiac Medical History: Reports: Congestive Heart Failure, Coronary Artery Disease, DVT, Myocardial Infarction - ? x 12 yrs ago, Hyperlipidema, Hypertension, Pulmonary Embolism Pulmonary Medical History: Reports: Bronchitis, Chronic Obstructive Pulmonary Disease (COPD) Endocrine Medical History: Reports: Hypothyroidism, Other - SIADH Malignancy Medical History: Reports: Cervical Cancer, Ovarian Cancer GI Medical History: Reports: Gastroesophageal Reflux Disease, Hiatal Hernia - Repaired Musculoskeltal Medical History: Reports: Arthritis - Lupus, Fibromyalgia - Lupus Psychiatric Medical History: Reports: Depression Hematology: Reports: Anemia Infectious Medical History: Reports: Clostridium Difficile - Was negative in October2015. Not yet successfully collected stool Past Surgical History Past Surgical History: Reports: Appendectomy, Cardiac Catheterization - X2, Section, Cholecystectomy, Coronary Stent - 3 stents, Herniorrhaphy, Hysterectomy, Orthopedic Surgery - Right knee, bilateral knee replacements and hip replacement metal plate in, Tonsillectomy Social History Smoking Status: Former Smoker Frequency of Alcohol Use: Occasional Hx Recreational Drug Use: No Drugs: None Hx Prescription Drug Abuse: No - Advance Directive Resuscitation Status: Full Code Family History Family History: Arthritis, COPD, Hyperlipidemia, Hypertension, Malignancy, Thyroid Disfunction Parental Family History Reviewed: Yes Children Family History Reviewed: Yes Sibling(s) Family History Reviewed.: Yes Medication/Allergy Home Medications: Atorvastatin Calcium [Lipitor 10 mg Tablet] 10 mg PO QHS 11/08/16 Carvedilol Phosphate [Coreg CR 40 mg Ext. Release Capsule] 40 mg PO DAILY Clopidogrel Bisulfate [Plavix 75 mg Tablet] 75 mg PO DAILY 11/08/16 Cyanocobalamin (Vitamin B-12) [Vitamin B-12] 1 ml SQ Q30MP PRN 11/08/16 Cyclobenzaprine HCl [Flexeril 10 mg Tablet] 10 mg PO Q8 11/08/16 Gabapentin [Neurontin] 600 mg PO TID 11/08/16 Hydrocodone Bit/Acetaminophen [Hydrocodon-Acetaminophn 10-325] 1 tab PO Q6 11/08 Hydrocodone Bitartrate [Zohydro ER] 40 mg PO BID 11/08/16 Hydroxychloroquine Sulfate [Plaquenil 200 mg Tablet] 200 mg PO BID 11/08/16 Levothyroxine Sodium [Synthroid] 200 mcg PO DAILY 11/08/16 Losartan/Hydrochlorothiazide [Hyzaar 100-25 Tablet] 1 tab PO DAILY 11/08/16 Lubiprostone [Amitiza 24 Mcg Capsule] 24 mcg PO BID 11/08/16 Meloxicam [Mobic 7.5 mg Tablet] 7.5 mg PO DAILY 11/08/16 Ondansetron HCl [Zofran 8 mg Tablet] 8 mg PO TIDP PRN 11/08/16 Tolvaptan [Samsca 15 mg Tablet] 15 mg PO DAILY 11/08/16 Allergies/Adverse Reactions: hydrocortisone [From Cortizone-10] Allergy (Severe, Verified 11/08/16 07:03) Anaphylaxis irbesartan [From Avapro] Allergy (Severe, Verified 11/08/16 07:03) swelling of face levofloxacin [From Levaquin] Allergy (Severe, Verified 11/08/16 07:03) GI upset/lips swell lidocaine [Lidocaine] Allergy (Severe, Verified 11/08/16 07:03) Anaphylaxis methadone [Methadone] Allergy (Severe, Verified 11/08/16 07:03) eyes swell nitrofurantoin macrocrystalline [From Macrobid] Allergy (Severe, Verified 07:03) Generalized edema Penicillins Allergy (Severe, Verified 11/08/16 07:03) eyes swelled pregabalin [From Lyrica] Allergy (Severe, Verified 11/08/16 07:03) Equilibrium Issues venom-honey bee [bee venom (honey bee)] Allergy (Verified 11/08/16 07:03) Anaphylaxis ciprofloxacin [From Cipro] Adverse Reaction (Severe, Verified 11/08/16 07:03) GI upset Review of Systems ROS unobtainable: Due to mental status Physical Exam Vital Signs: Temp Pulse Resp BP Pulse Ox 98.0 F 73 11 L 97/50 L 99 11/08/16 16:45 11/08/16 15:09 11/08/16 17:01 11/08/16 17:01 11/08/16 17:01 General appearance: PRESENT: other - obtunded Head exam: PRESENT: atraumatic, normocephalic Eye exam: PRESENT: PERRLA Mouth exam: PRESENT: dry mucosa Neck exam: PRESENT: full ROM, other - The neck is supple Respiratory exam: PRESENT: clear to auscultation martínez Cardiovascular exam: PRESENT: RRR, +S1, +S2 GI/Abdominal exam: PRESENT: normal bowel sounds, soft, tenderness - There is tenderness in the suprapubic area Rectal exam: PRESENT: deferred Neurological exam: PRESENT: altered Skin exam: PRESENT: warm Results Laboratory Results: 11/08/16 14:32 CK-MB (CK-2) 1.43 Troponin I < 0.012 Impressions: Chest X-Ray 11/08/16 06:12 IMPRESSION: No acute cardiopulmonary findings. Stable. Assessment & Plan - Diagnosis (1) Sepsis Qualifiers: Sepsis type: sepsis due to unspecified organism Qualified Code(s): A41.9 - Sepsis, unspecified organism Is this a current diagnosis for this admission?: YesPlan: She has sepsis syndrome, the cause is most likely UTI, she has long list of allergy, she will be treated with intravenous Rocephin. (2) Hypotension Qualifiers: Hypotension type: unspecified hypotension type Qualified Code(s): I95.9 - Hypotension, unspecified Is this a current diagnosis for this admission?: YesPlan: The blood pressure is low, she has SIADH, the low blood pressure responds to normal saline (3) Urinary tract infection Is this a current diagnosis for this admission?: Yes (4) Syndrome of inappropriate ADH (SIADH) secretion Is this a current diagnosis for this admission?: Yes (5) Systemic lupus erythematosus Qualifiers: Systemic lupus erythematosus type: unspecified Systemic lupus erythematosus organ involvement: unspecified Qualified Code(s): M32.9 - Systemic lupus erythematosus, unspecified Is this a current diagnosis for this admission?: Yes (6) Metabolic encephalopathy Is this a current diagnosis for this admission?: YesPlan: She has metabolic encephalopathy most likely for UTI.
[2016-11-08] MEDS ORDERED: CLOPIDOGREL BISULFATE 75 MG TABLET PO ONE (19:00)
[2016-11-08] MEDS ORDERED: LEVOTHYROXINE SODIUM 0.1 MG TABLET PO ONE (19:00)
[2016-11-08] MEDS ORDERED: NYSTATIN TOPICAL POWDER 15 GM TP ONE (19:15)
[2016-11-08 21:23] LABS: CREATINE KINASE MB 2.65 ng/mL (<4.55)
[2016-11-08 21:28] LABS: TROPONIN I < 0.012 ng/mL
[2016-11-08] MEDS: HYDROXYCHLOROQUINE SULFATE 200 MG TABLET PO SCH (22:32)
[2016-11-08] MEDS: ATORVASTATIN CALCIUM 10 MG TABLET PO SCH (22:32)
[2016-11-08] MEDS: NYSTATIN TOPICAL POWDER 15 GM TP SCH (22:33)
[2016-11-09] MEDS: NORMAL SALINE 1000 ML 1,000 ML IV PRN ×2 (00:57→12:57)
[2016-11-09 02:16] LABS: CREATINE KINASE MB 3.59 ng/mL (<4.55); TROPONIN I < 0.012 ng/mL
[2016-11-09 06:11] LABS: HEMATOCRIT 28.6 % (36.0-47.0); HEMOGLOBIN 9.6 g/dL (12.0-15.5); HGB HCT DIFFERENCE 0.2; MEAN CORPUSCULAR HEMOGLOBIN 27.1 pg (27.0-33.4); MEAN CORPUSCULAR HGB CONC 33.7 g/dL (32.0-36.0); MEAN CORPUSCULAR VOLUME 80 fl (80-97); RED BLOOD COUNT 3.55 10^6/uL (3.72-5.28); RED CELL DISTRIBUTION WIDTH 14.5 % (11.5-14.0); WHITE BLOOD COUNT 12.2 10^3/uL (4.0-10.5)
[2016-11-09 06:41] LABS: ALANINE AMINOTRANSFERASE 23 U/L (9-52); ALBUMIN 3.3 g/dL (3.5-5.0); ALKALINE PHOSPHATASE 130 U/L (38-126); ANION GAP 11 (5-19); ASPARTATE AMINO TRANSFERASE 21 U/L (14-36); BILIRUBIN,TOTAL 0.5 mg/dL (0.2-1.3); BLOOD UREA NITROGEN 29 mg/dL (7-20); CALCIUM 8.9 mg/dL (8.4-10.2); CARBON DIOXIDE 19 mmol/L (22-30); CHLORIDE 104 mmol/L (98-107); CHOLESTEROL 120.19 mg/dL (0-200); CREATININE RESULT 1.25 mg/dL (0.52-1.25); Direct HDL 39 mg/dL (>40); GLUCOSE 147 mg/dL (75-110); SODIUM 133.8 mmol/L (137-145); TOTAL PROTEIN 5.6 g/dL (6.3-8.2); TRIGLYCERIDES 121 mg/dL (<150)
[2016-11-09 06:52] LABS: DIRECT LDL 58 mg/dL (<100)
[2016-11-09 06:59] LABS: POTASSIUM 4.1 mmol/L (3.6-5.0)
[2016-11-09] MEDS: ENOXAPARIN SODIUM INJ 30 MG/0.3 ML DISP.SYRIN SUBCUT SCH (10:08)
[2016-11-09] MEDS: HYDROXYCHLOROQUINE SULFATE 200 MG TABLET PO SCH ×2 (10:10→22:13)
[2016-11-09] MEDS: CLOPIDOGREL BISULFATE 75 MG TABLET PO SCH (10:11)
[2016-11-09] MEDS: LEVOTHYROXINE SODIUM 0.1 MG TABLET PO SCH (10:11)
[2016-11-09] MEDS: CEFTRIAXONE 1 GM/D5W RTU 1 GM/50 ML RTUPB IV SCH (10:19)
[2016-11-09] MEDS: NYSTATIN TOPICAL POWDER 15 GM TP SCH ×2 (12:56→22:13)
--- NOTE | 2016-11-09 20:03 | PDOC PROGRESS REPORT ---
Subjective Progress Note for:: 11/09/16 Subjective:: Patient was seen by the bedside, she is somewhat confused, trying to verbalize but she is not making any sensible speech. Physical Exam Vital Signs: Temp Pulse Resp BP Pulse Ox 98.3 F 90 22 H 153/89 H 95 11/09/16 16:05 11/09/16 16:05 11/09/16 16:05 11/09/16 16:05 11/09/16 16:05 Intake & Output 11/08/16 11/09/16 11/10/16 06:59 06:59 06:59 Intake Total 2210 2997 Balance 2210 2997 Weight 91.2 kg General appearance: PRESENT: no acute distress Eye exam: PRESENT: PERRLA Respiratory exam: PRESENT: clear to auscultation martínez Cardiovascular exam: PRESENT: +S1, +S2 GI/Abdominal exam: PRESENT: soft Neurological exam: PRESENT: alert, CN II-XII grossly intact Results Laboratory Results: 11/09/16 05:50 11/09/16 05:50 11/09/16 11/09/16 05:50 05:50 WBC 12.2 H RBC 3.55 L Hgb 9.6 L Hct 28.6 L MCV 80 MCH 27.1 MCHC 33.7 RDW 14.5 H Plt Count 185 Sodium 133.8 L Potassium 4.1 D Chloride 104 Carbon Dioxide 19 L Anion Gap 11 BUN 29 H Creatinine 1.25 Est GFR ( Amer) 52 L Est GFR (Non-Af Amer) 43 L Glucose 147 H Calcium 8.9 Total Bilirubin 0.5 AST 21 ALT 23 Alkaline Phosphatase 130 H Total Protein 5.6 L Albumin 3.3 L Triglycerides 121 Cholesterol 120.19 LDL Cholesterol Direct 58 VLDL Cholesterol 24.0 HDL Cholesterol 39 L 11/08/16 11/08/16 11/09/16 14:32 20:25 01:35 CK-MB (CK-2) 1.43 2.65 3.59 Troponin I < 0.012 < 0.012 < 0.012 Impressions: Chest X-Ray 11/08/16 06:12 IMPRESSION: No acute cardiopulmonary findings. Stable. Assessment & Plan - Diagnosis (1) Sepsis Qualifiers: Sepsis type: sepsis due to unspecified organism Qualified Code(s): A41.9 - Sepsis, unspecified organism Is this a current diagnosis for this admission?: Yes (2) Hypotension Qualifiers: Hypotension type: unspecified hypotension type Qualified Code(s): I95.9 - Hypotension, unspecified Is this a current diagnosis for this admission?: Yes (3) Urinary tract infection Is this a current diagnosis for this admission?: Yes (4) Syndrome of inappropriate ADH (SIADH) secretion Is this a current diagnosis for this admission?: Yes (5) Systemic lupus erythematosus Qualifiers: Systemic lupus erythematosus type: unspecified Systemic lupus erythematosus organ involvement: unspecified Qualified Code(s): M32.9 - Systemic lupus erythematosus, unspecified Is this a current diagnosis for this admission?: Yes (6) Metabolic encephalopathy Is this a current diagnosis for this admission?: YesPlan: She is alert but confused, MRI of the brain could not be done because she has metallic rods, CT head to be ordered
[2016-11-09] MEDS: ATORVASTATIN CALCIUM 10 MG TABLET PO SCH (22:13)
[2016-11-10] MEDS: IPRATROPIUM/ALBUTEROL 0.5-2.5 MG/3 ML AMPUL NEB PRN ×2 (01:52→12:50)
[2016-11-10] MEDS: ONDANSETRON HCL INJ/PF 4 MG/2 ML SDV IV PRN ×3 (02:11→19:03)
[2016-11-10] MEDS: NORMAL SALINE 1000 ML 1,000 ML IV PRN (02:13)
[2016-11-10 06:37] LABS: HEMOGLOBIN 9.9 g/dL (12.0-15.5); HGB HCT DIFFERENCE 0.7; MEAN CORPUSCULAR HEMOGLOBIN 27.3 pg (27.0-33.4); MEAN CORPUSCULAR HGB CONC 34.1 g/dL (32.0-36.0); MEAN CORPUSCULAR VOLUME 80 fl (80-97); RED BLOOD COUNT 3.62 10^6/uL (3.72-5.28)
[2016-11-10] MEDS: ENOXAPARIN SODIUM INJ 30 MG/0.3 ML DISP.SYRIN SUBCUT SCH (07:45)
[2016-11-10] MEDS: CEFTRIAXONE 1 GM/D5W RTU 1 GM/50 ML RTUPB IV SCH (07:45)
[2016-11-10] MEDS: LEVOTHYROXINE SODIUM 0.1 MG TABLET PO SCH (10:35)
[2016-11-10] MEDS: NYSTATIN TOPICAL POWDER 15 GM TP SCH ×2 (10:35→22:27)
[2016-11-10] MEDS: HYDROXYCHLOROQUINE SULFATE 200 MG TABLET PO SCH ×2 (10:35→22:25)
[2016-11-10] MEDS: CLOPIDOGREL BISULFATE 75 MG TABLET PO SCH (10:35)
[2016-11-10] MEDS ORDERED: HYDROCODONE/ACETAMINOPHEN 5-325 MG TABLET PO PRN (11:00)
[2016-11-10] MEDS ORDERED: OXYCODONE HCL IR 5 MG TABLET PO PRN (11:10)
[2016-11-10] MEDS ORDERED: LOSARTAN POTASSIUM 50 MG TABLET PO ONE (12:30)
[2016-11-10] MEDS ORDERED: HYDROCHLOROTHIAZIDE 25 MG TABLET PO ONE (12:30)
[2016-11-10] MEDS: HYDROCODONE/ACETAMINOPHEN 10-325 MG TABLET PO PRN ×2 (12:42→19:02)
--- NOTE | 2016-11-10 20:31 | PDOC PROGRESS REPORT ---
Subjective Subjective:: She was seen by the bedside, she is still confused and she requires a sitter, the urine culture grew 2 organisms with significant colonic count suggesting probably contamination from self catheterization. Physical Exam Vital Signs: Temp Pulse Resp BP Pulse Ox 98.2 F 84 18 167/90 H 91 L 11/10/16 16:17 11/10/16 16:40 11/10/16 16:40 11/10/16 16:17 11/10/16 16:40 Intake & Output 11/09/16 11/10/16 11/11/16 06:59 06:59 06:59 Intake Total 2210 5077 770 Output Total 0 Balance 2210 5077 770 Weight 91.2 kg 88.9 kg General appearance: PRESENT: no acute distress Eye exam: PRESENT: PERRLA Respiratory exam: PRESENT: clear to auscultation martínez Cardiovascular exam: PRESENT: +S1, +S2 GI/Abdominal exam: PRESENT: soft Neurological exam: PRESENT: alert Results Laboratory Results: 11/10/16 05:45 11/09/16 05:50 11/10/16 05:45 WBC 13.0 H RBC 3.62 L Hgb 9.9 L Hct 29.0 L MCV 80 MCH 27.3 MCHC 34.1 RDW 15.0 H Plt Count 191 11/08/16 11/08/16 11/09/16 14:32 20:25 01:35 CK-MB (CK-2) 1.43 2.65 3.59 Troponin I < 0.012 < 0.012 < 0.012 Impressions: Chest X-Ray 11/08/16 06:12 IMPRESSION: No acute cardiopulmonary findings. Stable. Head CT 11/09/16 00:00 IMPRESSION: No acute intracranial findings. Assessment & Plan - Diagnosis (1) Sepsis Qualifiers: Sepsis type: sepsis due to unspecified organism Qualified Code(s): A41.9 - Sepsis, unspecified organism Is this a current diagnosis for this admission?: Yes (2) Hypotension Qualifiers: Hypotension type: unspecified hypotension type Qualified Code(s): I95.9 - Hypotension, unspecified Is this a current diagnosis for this admission?: Yes (3) Urinary tract infection Is this a current diagnosis for this admission?: YesPlan: The urine culture grew Citrobacter and Serratia both sensitive to ceftriaxone but the KRISTIE is 8, the 2 organisms better KRISTIE with Ceftazidime with KRISTIE of 1 the antibiotic be changed to ceftazidime. (4) Syndrome of inappropriate ADH (SIADH) secretion Is this a current diagnosis for this admission?: Yes (5) Systemic lupus erythematosus Qualifiers: Systemic lupus erythematosus type: unspecified Systemic lupus erythematosus organ involvement: unspecified Qualified Code(s): M32.9 - Systemic lupus erythematosus, unspecified Is this a current diagnosis for this admission?: Yes (6) Metabolic encephalopathy Is this a current diagnosis for this admission?: Yes
[2016-11-10] MEDS: ATORVASTATIN CALCIUM 10 MG TABLET PO SCH (22:25)
[2016-11-10] MEDS: CEFTAZIDIME PENTAHYDRATE 1 GM in DEXTROSE 5%-WATER 50 ML IV SCH (22:49)
[2016-11-11] MEDS: IPRATROPIUM/ALBUTEROL 0.5-2.5 MG/3 ML AMPUL NEB PRN ×3 (00:20→23:16)
[2016-11-11] MEDS: ONDANSETRON HCL INJ/PF 4 MG/2 ML SDV IV PRN ×3 (01:48→21:44)
[2016-11-11] MEDS: HYDROCODONE/ACETAMINOPHEN 10-325 MG TABLET PO PRN ×4 (01:48→23:35)
[2016-11-11] MEDS: NORMAL SALINE 1000 ML 1,000 ML IV PRN ×2 (03:51→17:50)
[2016-11-11] MEDS: CEFTAZIDIME PENTAHYDRATE 1 GM in DEXTROSE 5%-WATER 50 ML IV SCH ×3 (05:09→21:44)
[2016-11-11 05:24] LABS: HEMATOCRIT 28.2 % (36.0-47.0); HEMOGLOBIN 9.6 g/dL (12.0-15.5); HGB HCT DIFFERENCE 0.6; MEAN CORPUSCULAR HEMOGLOBIN 26.9 pg (27.0-33.4); MEAN CORPUSCULAR HGB CONC 34.1 g/dL (32.0-36.0); MEAN CORPUSCULAR VOLUME 79 fl (80-97); RED BLOOD COUNT 3.58 10^6/uL (3.72-5.28); RED CELL DISTRIBUTION WIDTH 14.7 % (11.5-14.0); WHITE BLOOD COUNT 11.9 10^3/uL (4.0-10.5)
[2016-11-11] MEDS: ENOXAPARIN SODIUM INJ 30 MG/0.3 ML DISP.SYRIN SUBCUT SCH (09:00)
[2016-11-11] MEDS: CLOPIDOGREL BISULFATE 75 MG TABLET PO SCH (09:03)
[2016-11-11] MEDS: LOSARTAN POTASSIUM 50 MG TABLET PO SCH (09:04)
[2016-11-11] MEDS: HYDROCHLOROTHIAZIDE 25 MG TABLET PO SCH (09:04)
[2016-11-11] MEDS: LEVOTHYROXINE SODIUM 0.1 MG TABLET PO SCH (09:04)
[2016-11-11] MEDS: HYDROXYCHLOROQUINE SULFATE 200 MG TABLET PO SCH ×2 (09:06→21:44)
[2016-11-11] MEDS: NYSTATIN TOPICAL POWDER 15 GM TP SCH ×2 (09:12→21:44)
--- NOTE | 2016-11-11 16:03 | PDOC PROGRESS REPORT ---
Subjective Progress Note for:: 11/11/16 Subjective:: She is very confused, she has UTI from Serratia and Citrobacter both bacteria sensitive to ceftazidime. Her neck is supple, she does not seems to have meningitis, and serum TSH is less than 0 suggesting that she is probably taking too much Synthroid, this be discontinued. Physical Exam Vital Signs: Temp Pulse Resp BP Pulse Ox 98.2 F 85 21 H 158/73 H 99 11/11/16 11:01 11/11/16 11:01 11/11/16 11:01 11/11/16 11:01 11/11/16 11:01 Intake & Output 11/10/16 11/11/16 11/12/16 06:59 06:59 06:59 Intake Total 5077 1670 357 Output Total 300 Balance 5077 1370 357 Weight 88.9 kg 88.9 kg General appearance: PRESENT: no acute distress, well-developed, well-nourished Head exam: PRESENT: atraumatic, normocephalic Eye exam: PRESENT: conjunctiva pink, EOMI, PERRLA Ear exam: PRESENT: normal external ear exam Mouth exam: PRESENT: moist, tongue midline Neck exam: PRESENT: full ROM, other - The neck is supple Cardiovascular exam: PRESENT: RRR, +S1, +S2 Pulses: PRESENT: normal dorsalis pedis pul, +2 pedal pulses bilateral Vascular exam: PRESENT: normal capillary refill GI/Abdominal exam: PRESENT: normal bowel sounds, soft Rectal exam: PRESENT: deferred Neurological exam: PRESENT: alert, CN II-XII grossly intact Psychiatric exam: PRESENT: other - She is confused on she is requiring a sitter with restrain Skin exam: PRESENT: dry, intact, warm. ABSENT: cyanosis, rash Results Laboratory Results: 11/11/16 05:05 11/09/16 05:50 11/11/16 05:05 WBC 11.9 H RBC 3.58 L Hgb 9.6 L Hct 28.2 L MCV 79 L MCH 26.9 L MCHC 34.1 RDW 14.7 H Plt Count 208 11/08/16 11/08/16 11/09/16 14:32 20:25 01:35 CK-MB (CK-2) 1.43 2.65 3.59 Troponin I < 0.012 < 0.012 < 0.012 Impressions: Chest X-Ray 11/08/16 06:12 IMPRESSION: No acute cardiopulmonary findings. Stable. Head CT 11/09/16 00:00 IMPRESSION: No acute intracranial findings. Assessment & Plan - Diagnosis (1) Sepsis Qualifiers: Sepsis type: sepsis due to unspecified organism Qualified Code(s): A41.9 - Sepsis, unspecified organism Is this a current diagnosis for this admission?: Yes (2) Hypotension Qualifiers: Hypotension type: unspecified hypotension type Qualified Code(s): I95.9 - Hypotension, unspecified Is this a current diagnosis for this admission?: Yes (3) Urinary tract infection Is this a current diagnosis for this admission?: Yes (4) Syndrome of inappropriate ADH (SIADH) secretion Is this a current diagnosis for this admission?: Yes (5) Systemic lupus erythematosus Qualifiers: Systemic lupus erythematosus type: unspecified Systemic lupus erythematosus organ involvement: unspecified Qualified Code(s): M32.9 - Systemic lupus erythematosus, unspecified Is this a current diagnosis for this admission?: Yes (6) Metabolic encephalopathy Is this a current diagnosis for this admission?: YesPlan: She is confused, she does not need a lumbar puncture at this time, she has polymicrobial UTI both sensitive to ceftazidime, and she has period When she is very lucid
[2016-11-11] MEDS: ATORVASTATIN CALCIUM 10 MG TABLET PO SCH (21:44)
[2016-11-12] MEDS: HYDROCODONE/ACETAMINOPHEN 10-325 MG TABLET PO PRN ×3 (05:18→21:53)
[2016-11-12] MEDS: CEFTAZIDIME PENTAHYDRATE 1 GM in DEXTROSE 5%-WATER 50 ML IV SCH ×3 (05:19→21:54)
[2016-11-12] MEDS: NORMAL SALINE 1000 ML 1,000 ML IV PRN (05:58)
[2016-11-12] MEDS: ENOXAPARIN SODIUM INJ 30 MG/0.3 ML DISP.SYRIN SUBCUT SCH (08:09)
[2016-11-12] MEDS: ONDANSETRON HCL INJ/PF 4 MG/2 ML SDV IV PRN ×2 (09:24→21:52)
[2016-11-12] MEDS: NYSTATIN TOPICAL POWDER 15 GM TP SCH ×2 (09:31→21:52)
[2016-11-12 09:44] LABS: ABSOLUTE EOSINOPHILS # (AUTO) 0.1 10^3/uL (0.0-0.6); ABSOLUTE MONOCYTES (AUTO) 0.8 10^3/uL (0.1-1.4); ABSOLUTE NEUT (AUTO) 7.2 10^3/uL (1.7-8.2); BASOPHILS % (AUTO) 0.1 % (0-2); EOSINOPHILS % (AUTO) 0.9 % (0-6); HEMATOCRIT 28.7 % (36.0-47.0); HEMOGLOBIN 9.9 g/dL (12.0-15.5); LYMPHOCYTES % (AUTO) 10.7 % (13-45); MEAN CORPUSCULAR HEMOGLOBIN 27.3 pg (27.0-33.4); MEAN CORPUSCULAR HGB CONC 34.4 g/dL (32.0-36.0); MEAN CORPUSCULAR VOLUME 79 fl (80-97); MONOCYTES % (AUTO) 9.2 % (3-13); RED BLOOD COUNT 3.61 10^6/uL (3.72-5.28); RED CELL DISTRIBUTION WIDTH 14.1 % (11.5-14.0); SEGMENTED NEUTROPHILS % (AUTO) 79.1 % (42-78); WHITE BLOOD COUNT 9.1 10^3/uL (4.0-10.5)
[2016-11-12] MEDS: HYDROCHLOROTHIAZIDE 25 MG TABLET PO SCH (09:53)
[2016-11-12] MEDS: HYDROXYCHLOROQUINE SULFATE 200 MG TABLET PO SCH ×2 (09:53→22:18)
[2016-11-12] MEDS: LOSARTAN POTASSIUM 50 MG TABLET PO SCH (09:55)
[2016-11-12 10:04] LABS: ALANINE AMINOTRANSFERASE 34 U/L (9-52); ALBUMIN 3.5 g/dL (3.5-5.0); ALKALINE PHOSPHATASE 106 U/L (38-126); ANION GAP 13 (5-19); ASPARTATE AMINO TRANSFERASE 24 U/L (14-36); BILIRUBIN,TOTAL 0.7 mg/dL (0.2-1.3); BLOOD UREA NITROGEN 10 mg/dL (7-20); CALCIUM 8.9 mg/dL (8.4-10.2); CARBON DIOXIDE 24 mmol/L (22-30); CHLORIDE 101 mmol/L (98-107); CREATININE RESULT 0.93 mg/dL (0.52-1.25); GLUCOSE 97 mg/dL (75-110); SODIUM 137.8 mmol/L (137-145); TOTAL PROTEIN 5.9 g/dL (6.3-8.2)
[2016-11-12 10:26] LABS: POTASSIUM 2.7 mmol/L (3.6-5.0)
[2016-11-12] MEDS ORDERED: POTASSIUM CHLORIDE 10 MEQ TABLET.SA PO ONE ×2 (11:00→23:00)
[2016-11-12] MEDS: CLOPIDOGREL BISULFATE 75 MG TABLET PO SCH (13:21)
[2016-11-12] MEDS ORDERED: POTASSIUM CHLORIDE 10 MEQ TABLET.SA PO SCH (14:00)
--- NOTE | 2016-11-12 15:27 | PDOC PROGRESS REPORT ---
Subjective Progress Note for:: 11/12/16 Subjective:: Patient is still confused, the hemogram revealed normal white blood cell count, there is hypokalemia most likely due to intracellular shift this to be replaced Physical Exam Vital Signs: Temp Pulse Resp BP Pulse Ox 97.8 F 89 20 172/74 H 100 11/12/16 12:02 11/12/16 14:00 11/12/16 12:02 11/12/16 12:02 11/12/16 12:02 Intake & Output 11/11/16 11/12/16 11/13/16 06:59 06:59 06:59 Intake Total 1670 2475 240 Output Total 300 0 Balance 1370 2475 240 Weight 88.9 kg 88.1 kg General appearance: PRESENT: no acute distress Eye exam: PRESENT: PERRLA Respiratory exam: PRESENT: clear to auscultation martínez Cardiovascular exam: PRESENT: +S1, +S2 GI/Abdominal exam: PRESENT: soft Neurological exam: PRESENT: alert Results Laboratory Results: 11/12/16 09:25 11/12/16 09:25 11/12/16 11/12/16 09:25 09:25 WBC 9.1 RBC 3.61 L Hgb 9.9 L Hct 28.7 L MCV 79 L MCH 27.3 MCHC 34.4 RDW 14.1 H Plt Count 213 Seg Neutrophils % 79.1 H Lymphocytes % 10.7 L Monocytes % 9.2 Eosinophils % 0.9 Basophils % 0.1 Absolute Neutrophils 7.2 Absolute Lymphocytes 1.0 Absolute Monocytes 0.8 Absolute Eosinophils 0.1 Absolute Basophils 0.0 Sodium 137.8 Potassium 2.7 L* Chloride 101 Carbon Dioxide 24 Anion Gap 13 BUN 10 Creatinine 0.93 Est GFR ( Amer) > 60 Est GFR (Non-Af Amer) > 60 Glucose 97 Calcium 8.9 Total Bilirubin 0.7 AST 24 ALT 34 Alkaline Phosphatase 106 Total Protein 5.9 L Albumin 3.5 11/08/16 11/08/16 11/09/16 14:32 20:25 01:35 CK-MB (CK-2) 1.43 2.65 3.59 Troponin I < 0.012 < 0.012 < 0.012 Impressions: Chest X-Ray 11/08/16 06:12 IMPRESSION: No acute cardiopulmonary findings. Stable. Head CT 03/02/17 00:00 IMPRESSION: No acute intracranial findings. 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
[2016-11-12] MEDS: IPRATROPIUM/ALBUTEROL 0.5-2.5 MG/3 ML AMPUL NEB PRN (17:40)
[2016-11-12] MEDS: ATORVASTATIN CALCIUM 10 MG TABLET PO SCH (21:53)
[2016-11-13] MEDS: HYDROCODONE/ACETAMINOPHEN 10-325 MG TABLET PO PRN ×4 (04:13→23:25)
[2016-11-13] MEDS: ONDANSETRON HCL INJ/PF 4 MG/2 ML SDV IV PRN ×2 (04:24→10:30)
[2016-11-13] MEDS: CEFTAZIDIME PENTAHYDRATE 1 GM in DEXTROSE 5%-WATER 50 ML IV SCH ×3 (05:34→21:38)
[2016-11-13 08:14] LABS: ABSOLUTE EOSINOPHILS # (AUTO) 0.2 10^3/uL (0.0-0.6); ABSOLUTE LYMPHOCYTES (AUTO) 1.3 10^3/uL (0.5-4.7); ABSOLUTE MONOCYTES (AUTO) 0.8 10^3/uL (0.1-1.4); ABSOLUTE NEUT (AUTO) 7.7 10^3/uL (1.7-8.2); BASOPHILS % (AUTO) 0.1 % (0-2); EOSINOPHILS % (AUTO) 2.5 % (0-6); LYMPHOCYTES % (AUTO) 12.6 % (13-45); MEAN CORPUSCULAR HEMOGLOBIN 27.4 pg (27.0-33.4); MEAN CORPUSCULAR HGB CONC 34.5 g/dL (32.0-36.0); MEAN CORPUSCULAR VOLUME 79 fl (80-97); MONOCYTES % (AUTO) 7.8 % (3-13); RED BLOOD COUNT 3.65 10^6/uL (3.72-5.28); RED CELL DISTRIBUTION WIDTH 14.7 % (11.5-14.0)
[2016-11-13 08:34] LABS: ALANINE AMINOTRANSFERASE 28 U/L (9-52); ALBUMIN 3.5 g/dL (3.5-5.0); ALKALINE PHOSPHATASE 102 U/L (38-126); ANION GAP 13 (5-19); ASPARTATE AMINO TRANSFERASE 21 U/L (14-36); BILIRUBIN,TOTAL 0.7 mg/dL (0.2-1.3); BLOOD UREA NITROGEN 9 mg/dL (7-20); CALCIUM 9.1 mg/dL (8.4-10.2); CARBON DIOXIDE 24 mmol/L (22-30); CHLORIDE 101 mmol/L (98-107); GLUCOSE 105 mg/dL (75-110); POTASSIUM 3.5 mmol/L (3.6-5.0); SODIUM 137.8 mmol/L (137-145); TOTAL PROTEIN 5.9 g/dL (6.3-8.2)
[2016-11-13] MEDS: NYSTATIN TOPICAL POWDER 15 GM TP SCH ×2 (09:18→21:39)
[2016-11-13] MEDS: HYDROCHLOROTHIAZIDE 25 MG TABLET PO SCH (09:18)
[2016-11-13] MEDS: LOSARTAN POTASSIUM 50 MG TABLET PO SCH (09:18)
[2016-11-13] MEDS: HYDROXYCHLOROQUINE SULFATE 200 MG TABLET PO SCH ×2 (09:18→21:38)
[2016-11-13] MEDS: CLOPIDOGREL BISULFATE 75 MG TABLET PO SCH (09:18)
[2016-11-13] MEDS: ENOXAPARIN SODIUM INJ 30 MG/0.3 ML DISP.SYRIN SUBCUT SCH (09:19)
--- NOTE | 2016-11-13 20:21 | PDOC PROGRESS REPORT ---
Subjective Progress Note for:: 11/13/16 Subjective:: Patient sometimes lucid sometimes very confused, she is on IV antibiotic for polymicrobial UTI Physical Exam Vital Signs: Temp Pulse Resp BP Pulse Ox 97.4 F 80 20 160/72 H 100 11/13/16 15:25 11/13/16 15:25 11/13/16 15:25 11/13/16 15:25 11/13/16 15:25 Intake & Output 11/12/16 11/13/16 11/14/16 06:59 06:59 06:59 Intake Total 2475 1250 840 Output Total 0 Balance 2475 1250 840 Weight 88.1 kg 87.5 kg General appearance: PRESENT: no acute distress Eye exam: PRESENT: PERRLA Respiratory exam: PRESENT: clear to auscultation martínez Cardiovascular exam: PRESENT: +S1, +S2 GI/Abdominal exam: PRESENT: soft Neurological exam: PRESENT: alert Results Laboratory Results: 11/13/16 07:55 11/13/16 07:55 11/13/16 11/13/16 07:55 07:55 WBC 10.0 RBC 3.65 L Hgb 10.0 L Hct 29.0 L MCV 79 L MCH 27.4 MCHC 34.5 RDW 14.7 H Plt Count 214 Seg Neutrophils % 77.0 Lymphocytes % 12.6 L Monocytes % 7.8 Eosinophils % 2.5 Basophils % 0.1 Absolute Neutrophils 7.7 Absolute Lymphocytes 1.3 Absolute Monocytes 0.8 Absolute Eosinophils 0.2 Absolute Basophils 0.0 Sodium 137.8 Potassium 3.5 L Chloride 101 Carbon Dioxide 24 Anion Gap 13 BUN 9 Creatinine 0.80 Est GFR ( Amer) > 60 Est GFR (Non-Af Amer) > 60 Glucose 105 Calcium 9.1 Total Bilirubin 0.7 AST 21 ALT 28 Alkaline Phosphatase 102 Total Protein 5.9 L Albumin 3.5 11/08/16 11/08/16 11/09/16 14:32 20:25 01:35 CK-MB (CK-2) 1.43 2.65 3.59 Troponin I < 0.012 < 0.012 < 0.012 Impressions: Chest X-Ray 11/08/16 06:12 IMPRESSION: No acute cardiopulmonary findings. Stable. Head CT 11/09/16 00:00 IMPRESSION: No acute intracranial findings. 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
[2016-11-13] MEDS: ATORVASTATIN CALCIUM 10 MG TABLET PO SCH (21:38)
[2016-11-14] MEDS: ONDANSETRON HCL INJ/PF 4 MG/2 ML SDV IV PRN (04:43)
[2016-11-14 05:16] LABS: ABSOLUTE EOSINOPHILS # (AUTO) 0.3 10^3/uL (0.0-0.6); ABSOLUTE LYMPHOCYTES (AUTO) 1.4 10^3/uL (0.5-4.7); ABSOLUTE MONOCYTES (AUTO) 0.7 10^3/uL (0.1-1.4); ABSOLUTE NEUT (AUTO) 5.7 10^3/uL (1.7-8.2); BASOPHILS % (AUTO) 0.2 % (0-2); EOSINOPHILS % (AUTO) 3.3 % (0-6); HEMATOCRIT 29.9 % (36.0-47.0); HEMOGLOBIN 10.2 g/dL (12.0-15.5); HGB HCT DIFFERENCE 0.7; LYMPHOCYTES % (AUTO) 17.2 % (13-45); MEAN CORPUSCULAR HEMOGLOBIN 26.9 pg (27.0-33.4); MEAN CORPUSCULAR HGB CONC 34.1 g/dL (32.0-36.0); MEAN CORPUSCULAR VOLUME 79 fl (80-97); MONOCYTES % (AUTO) 8.2 % (3-13); RED BLOOD COUNT 3.78 10^6/uL (3.72-5.28); RED CELL DISTRIBUTION WIDTH 14.7 % (11.5-14.0); SEGMENTED NEUTROPHILS % (AUTO) 71.1 % (42-78)
[2016-11-14 05:36] LABS: ALANINE AMINOTRANSFERASE 27 U/L (9-52); ALBUMIN 3.3 g/dL (3.5-5.0); ALKALINE PHOSPHATASE 98 U/L (38-126); ANION GAP 10 (5-19); ASPARTATE AMINO TRANSFERASE 18 U/L (14-36); BILIRUBIN,TOTAL 0.6 mg/dL (0.2-1.3); BLOOD UREA NITROGEN 9 mg/dL (7-20); CALCIUM 8.8 mg/dL (8.4-10.2); CARBON DIOXIDE 27 mmol/L (22-30); CHLORIDE 98 mmol/L (98-107); CREATININE RESULT 0.78 mg/dL (0.52-1.25); GLUCOSE 82 mg/dL (75-110); POTASSIUM 3.4 mmol/L (3.6-5.0); SODIUM 134.8 mmol/L (137-145); TOTAL PROTEIN 5.7 g/dL (6.3-8.2)
[2016-11-14] MEDS: CEFTAZIDIME PENTAHYDRATE 1 GM in DEXTROSE 5%-WATER 50 ML IV SCH ×3 (05:38→21:41)
[2016-11-14] MEDS: HYDROCODONE/ACETAMINOPHEN 10-325 MG TABLET PO PRN ×3 (05:38→18:17)
[2016-11-14] MEDS: CLOPIDOGREL BISULFATE 75 MG TABLET PO SCH (10:27)
[2016-11-14] MEDS: HYDROCHLOROTHIAZIDE 25 MG TABLET PO SCH (10:27)
[2016-11-14] MEDS: LOSARTAN POTASSIUM 50 MG TABLET PO SCH (10:28)
[2016-11-14] MEDS: HYDROXYCHLOROQUINE SULFATE 200 MG TABLET PO SCH ×2 (10:28→21:40)
[2016-11-14] MEDS: ENOXAPARIN SODIUM INJ 30 MG/0.3 ML DISP.SYRIN SUBCUT SCH (10:29)
[2016-11-14] MEDS: NYSTATIN TOPICAL POWDER 15 GM TP SCH ×2 (10:29→21:41)
[2016-11-14] MEDS ORDERED: POTASSIUM CHLORIDE 10 MEQ TABLET.SA PO ONE (18:47)
--- NOTE | 2016-11-14 18:49 | PDOC PROGRESS REPORT ---
Subjective Progress Note for:: 11/14/16 Subjective:: She was seen by the bedside, she has polymicrobial UTI, she is more lucid today than previous days Physical Exam Vital Signs: Temp Pulse Resp BP Pulse Ox 98.0 F 73 18 170/74 H 98 11/14/16 11:16 11/14/16 14:00 11/14/16 12:24 11/14/16 11:16 11/14/16 12:24 Intake & Output 11/13/16 11/14/16 11/15/16 06:59 06:59 06:59 Intake Total 1250 1440 662 Output Total 300 Balance 1250 1440 362 Weight 87.5 kg 87.2 kg General appearance: PRESENT: no acute distress, well-developed, well-nourished Head exam: PRESENT: atraumatic, normocephalic Eye exam: PRESENT: conjunctiva pink, EOMI, PERRLA. ABSENT: scleral icterus Ear exam: PRESENT: normal external ear exam Mouth exam: PRESENT: moist, tongue midline Neck exam: PRESENT: full ROM Respiratory exam: PRESENT: clear to auscultation martínez Cardiovascular exam: PRESENT: RRR. ABSENT: diastolic murmur, rubs, systolic murmur Pulses: PRESENT: normal dorsalis pedis pul, +2 pedal pulses bilateral Vascular exam: PRESENT: normal capillary refill GI/Abdominal exam: PRESENT: normal bowel sounds, soft Rectal exam: PRESENT: deferred Neurological exam: PRESENT: alert, awake, oriented to person, oriented to place , oriented to time, oriented to situation, CN II-XII grossly intact. ABSENT: motor sensory deficit Psychiatric exam: PRESENT: appropriate affect, normal mood. ABSENT: homicidal ideation, suicidal ideation Skin exam: PRESENT: dry, intact, warm. ABSENT: cyanosis, rash Results Laboratory Results: 11/14/16 04:45 11/14/16 04:45 11/14/16 11/14/16 04:45 04:45 WBC 8.0 RBC 3.78 Hgb 10.2 L Hct 29.9 L MCV 79 L MCH 26.9 L MCHC 34.1 RDW 14.7 H Plt Count 227 Seg Neutrophils % 71.1 Lymphocytes % 17.2 Monocytes % 8.2 Eosinophils % 3.3 Basophils % 0.2 Absolute Neutrophils 5.7 Absolute Lymphocytes 1.4 Absolute Monocytes 0.7 Absolute Eosinophils 0.3 Absolute Basophils 0.0 Sodium 134.8 L Potassium 3.4 L Chloride 98 Carbon Dioxide 27 Anion Gap 10 BUN 9 Creatinine 0.78 Est GFR ( Amer) > 60 Est GFR (Non-Af Amer) > 60 Glucose 82 Calcium 8.8 Total Bilirubin 0.6 AST 18 ALT 27 Alkaline Phosphatase 98 Total Protein 5.7 L Albumin 3.3 L 11/08/16 11/08/16 11/09/16 14:32 20:25 01:35 CK-MB (CK-2) 1.43 2.65 3.59 Troponin I < 0.012 < 0.012 < 0.012 Impressions: Chest X-Ray 11/08/16 06:12 IMPRESSION: No acute cardiopulmonary findings. Stable. Head CT 11/09/16 00:00 IMPRESSION: No acute intracranial findings. 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
[2016-11-14] MEDS: ATORVASTATIN CALCIUM 10 MG TABLET PO SCH (21:40)
[2016-11-15] MEDS: HYDROCODONE/ACETAMINOPHEN 10-325 MG TABLET PO PRN ×3 (02:29→14:44)
[2016-11-15] MEDS: CEFTAZIDIME PENTAHYDRATE 1 GM in DEXTROSE 5%-WATER 50 ML IV SCH ×2 (05:36→13:17)
[2016-11-15] MEDS: ENOXAPARIN SODIUM INJ 30 MG/0.3 ML DISP.SYRIN SUBCUT SCH (07:55)
[2016-11-15] MEDS: CLOPIDOGREL BISULFATE 75 MG TABLET PO SCH (09:53)
[2016-11-15] MEDS: HYDROCHLOROTHIAZIDE 25 MG TABLET PO SCH (09:54)
[2016-11-15] MEDS: LOSARTAN POTASSIUM 50 MG TABLET PO SCH (09:54)
[2016-11-15] MEDS: HYDROXYCHLOROQUINE SULFATE 200 MG TABLET PO SCH (09:54)
[2016-11-15] MEDS: NYSTATIN TOPICAL POWDER 15 GM TP SCH (09:54)
[2016-11-15 16:11] LABS: ANION GAP 9 (5-19); BLOOD UREA NITROGEN 10 mg/dL (7-20); CALCIUM 8.9 mg/dL (8.4-10.2); CARBON DIOXIDE 30 mmol/L (22-30); CHLORIDE 95 mmol/L (98-107); CREATININE RESULT 0.81 mg/dL (0.52-1.25); GLUCOSE 99 mg/dL (75-110); POTASSIUM 3.4 mmol/L (3.6-5.0); SODIUM 134.1 mmol/L (137-145)
--- NOTE | 2016-11-15 17:12 | PDOC DISCHARGE SUMMARY ---
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 Release Capsule] 40 mg PO DAILY Clopidogrel Bisulfate [Plavix 75 mg Tablet] 75 mg PO DAILY 11/08/16 Cyanocobalamin (Vitamin B-12) [Vitamin B-12] 1 ml SQ Q30MP PRN 11/08/16 Gabapentin [Neurontin] 600 mg PO TID 11/08/16 Hydrocodone Bit/Acetaminophen [Hydrocodon-Acetaminophn 10-325] 1 tab PO Q6 11/08 Hydrocodone Bitartrate [Zohydro ER] 40 mg PO BID 11/08/16 Hydroxychloroquine Sulfate [Plaquenil 200 mg Tablet] 200 mg PO BID 11/08/16 Losartan/Hydrochlorothiazide [Hyzaar 100-25 Tablet] 1 tab PO DAILY 11/08/16 Lubiprostone [Amitiza 24 Mcg Capsule] 24 mcg PO BID 11/08/16 Ondansetron HCl [Zofran 8 mg Tablet] 8 mg PO TIDP PRN 11/08/16 Tolvaptan [Samsca 15 mg Tablet] 15 mg PO DAILY 11/08/16 Levothyroxine Sodium [Synthroid] 100 mcg PO DAILY #90 tablet 11/15/16 History of Present Illness History of Present Illness: VALENTE MUNOZ is a 61 year old female, she has multiple comorbid conditions , she came to the emergency room this morning because of the altered mental status , she was obtunded and poorly responsive, she also had fever with 104 temperature, and in the emergency room she was evaluated ,she was found to have urinary tract infection. History taking was a challenge because she is obtunded. She had blood test in the emergency room, there was leukocytosis, metabolic acidosis, venous blood glucose was gone and the pH was 7.2, this suggest metabolic acidosis. She has a history of urinary incontinence/urinary retention and she does self catheterization, this increases risk of UTI. She also had hypotension in the ED , she is known to have SIADH, The sodium was 129 , she was treated with normal saline intravenously in the ED Hospital Course Hospital Course: The patient was admitted for urinary tract infection, metabolic encephalopathy, urine culture grew Citrobacter and serratia, she was initially treated with ceftriaxone but the MICU was high and antibiotic was changed to ceftazidime. She had episode of confusion, CT head was done and it was negative for any acute pathology. When she was admitted blood pressure was low and she required IV fluids to restore blood pressure. When she presented she was febrile with temperature upto 104 Physical Exam Vital Signs: Temp Pulse Resp BP Pulse Ox 98.3 F 73 18 119/63 100 11/15/16 16:38 11/15/16 16:38 11/15/16 16:38 11/15/16 16:38 11/15/16 16:38 Intake & Output 11/14/16 11/15/16 11/16/16 06:59 06:59 06:59 Intake Total 1440 762 300 Output Total 300 Balance 1440 462 300 Weight 87.2 kg 87 kg General appearance: PRESENT: no acute distress, well-developed, well-nourished Head exam: PRESENT: atraumatic, normocephalic Eye exam: PRESENT: conjunctiva pink, EOMI, PERRLA Ear exam: PRESENT: normal external ear exam Mouth exam: PRESENT: moist, tongue midline Neck exam: PRESENT: full ROM Respiratory exam: PRESENT: clear to auscultation martínez Cardiovascular exam: PRESENT: RRR, +S1, +S2 Vascular exam: PRESENT: normal capillary refill GI/Abdominal exam: PRESENT: normal bowel sounds, soft Rectal exam: PRESENT: deferred Neurological exam: PRESENT: alert, awake, oriented to person, oriented to place , oriented to time, oriented to situation, CN II-XII grossly intact Psychiatric exam: PRESENT: appropriate affect, normal mood Skin exam: PRESENT: dry, intact, warm Results Laboratory Results: 11/14/16 04:45 11/15/16 15:44 11/15/16 15:44 Sodium 134.1 L Potassium 3.4 L Chloride 95 L Carbon Dioxide 30 Anion Gap 9 BUN 10 Creatinine 0.81 Est GFR ( Amer) > 60 Est GFR (Non-Af Amer) > 60 Glucose 99 Calcium 8.9 11/08/16 11/08/16 11/09/16 14:32 20:25 01:35 CK-MB (CK-2) 1.43 2.65 3.59 Troponin I < 0.012 < 0.012 < 0.012 Impressions: Chest X-Ray 11/08/16 06:12 IMPRESSION: No acute cardiopulmonary findings. Stable. Head CT 11/09/16 00:00 IMPRESSION: No acute intracranial findings.
[2016-11-15 17:29] VITALS: BP 168/73
[2016-11-15] MEDS ORDERED: POTASSIUM CHLORIDE 10 MEQ TABLET.SA PO ONE (17:45)
== END 2016-11-15 18:06 | disposition home or self-care (01) | DRG 871 ==
LOC: ER 06:09 → EH 08:15 → UNDOADMIN 08:15 → EH 13:26 → 3S 17:45
PROVIDERS: ADMIT Internal Medicine; ATTEND Internal Medicine
PROC: 3E0F73Z Introduction of Anti-inflammatory into Respiratory Tract, Via Natural or Artificial Opening (ICD-10-PCS; principal; 2016-11-08)
DX: A41.9 Sepsis, unspecified organism (principal); G93.41 Metabolic encephalopathy; N39.0 Urinary tract infection, site not specified; E22.2 Syndrome of inappropriate secretion of antidiuretic hormone; E87.5 Hyperkalemia; E86.0 Dehydration; R32 Unspecified urinary incontinence; I25.10 Atherosclerotic heart disease of native coronary artery without angina pectoris; E78.5 Hyperlipidemia, unspecified; I50.9 Heart failure, unspecified; I25.2 Old myocardial infarction; Z86.711 Personal history of pulmonary embolism; Z86.718 Personal history of other venous thrombosis and embolism; J44.9 Chronic obstructive pulmonary disease, unspecified; E03.9 Hypothyroidism, unspecified; K21.9 Gastro-esophageal reflux disease without esophagitis; F32.9 Major depressive disorder, single episode, unspecified; M19.90 Unspecified osteoarthritis, unspecified site; B96.89 Other specified bacterial agents as the cause of diseases classified elsewhere; M32.9 Systemic lupus erythematosus, unspecified; E87.6 Hypokalemia; M79.7 Fibromyalgia; D64.9 Anemia, unspecified; Z96.653 Presence of artificial knee joint, bilateral; Z95.5 Presence of coronary angioplasty implant and graft; Z90.710 Acquired absence of both cervix and uterus; Z87.891 Personal history of nicotine dependence; Z85.43 Personal history of malignant neoplasm of ovary; Z85.41 Personal history of malignant neoplasm of cervix uteri; Z90.49 Acquired absence of other specified parts of digestive tract; Z82.61 Family history of arthritis; Z82.49 Family history of ischemic heart disease and other diseases of the circulatory system; Z80.9 Family history of malignant neoplasm, unspecified; Z79.899 Other long term (current) drug therapy; Z88.8 Allergy status to other drugs, medicaments and biological substances; Z88.1 Allergy status to other antibiotic agents; Z88.0 Allergy status to penicillin; Z91.030 Bee allergy status
CPT/HCPCS: 36415; 70450; 71010; 80048; 80053; 80061; 80307; 81001; 82150; 82550; 82553; 82803; 83036; 83605; 83690; 83735; 83880; 84100; 84439; 84443; 84484; 85025; 85027; 85610; 87040; 87077; 87086; 87088; 87186; 87804; 93005; 93010; 94640; 99291; J0696; J0713; J1642; J1650; J2405; J3490; J7030; J7620

== ENCOUNTER 2017-02-13 22:08 | Inpatient (IN) | payer MEDICARE, OTHER ==
[2017-02-13] MEDS ORDERED: NALOXONE HCL INJ/PF 0.4 MG/1 ML SDV ONE (22:20)
[2017-02-13] MEDS ORDERED: NORMAL SALINE 1000 ML 2,000 ML IV ONE (22:30)
--- NOTE | 2017-02-13 22:33 | ER Document Report ---
ED General - General Stated Complaint: WEAKNESS Time Seen by Provider: 02/13/17 22:24 Cannot obtain history due to: Unstable vital signs Notes: Patient is a 61-year-old female who presents by EMS after being found minimally responsive by her family. Patient herself denies any complaints at time of arrival stating that she wishes EMS had not prior to the emergency department. She does not recall the events leading up to her hospitalization. Denies any recent medication changes and states she is drinking fluids as directed. She denies any chest pain, shortness of breath, abdominal pain nausea or vomiting. No focal weakness or numbness. She does note that she has dysuria and bilateral flank pain. Notes she has had similar symptoms in the past for her blood pressure has dropped and she has become confused when she has had urinary tract infections with associated sepsis in the past. History is otherwise limited secondary to patient's clinical status at time of arrival. TRAVEL OUTSIDE OF THE [place] IN LAST 30 DAYS: No - Related Data Allergies/Adverse Reactions: hydrocortisone [From Cortizone-10] Allergy (Severe, Verified 02/13/17 23:01) Anaphylaxis irbesartan [From Avapro] Allergy (Severe, Verified 02/13/17 23:01) swelling of face levofloxacin [From Levaquin] Allergy (Severe, Verified 02/13/17 23:01) GI upset/lips swell lidocaine [Lidocaine] Allergy (Severe, Verified 02/13/17 23:01) Anaphylaxis methadone [Methadone] Allergy (Severe, Verified 02/13/17 23:01) eyes swell nitrofurantoin macrocrystalline [From Macrobid] Allergy (Severe, Verified 23:01) Generalized edema Penicillins Allergy (Severe, Verified 02/13/17 23:01) eyes swelled pregabalin [From Lyrica] Allergy (Severe, Verified 02/13/17 23:01) Equilibrium Issues venom-honey bee [bee venom (honey bee)] Allergy (Verified 02/13/17 23:01) Anaphylaxis ciprofloxacin [From Cipro] Adverse Reaction (Severe, Verified 02/13/17 23:01) GI upset Past Medical History - General Information source: Patient - Social History Smoking Status: Former Smoker Frequency of alcohol use: None Drug Abuse: None Lives with: Family Family History: Arthritis, COPD, Hyperlipidemia, Hypertension, Malignancy, Thyroid Disfunction - Past Medical History Cardiac Medical History: Reports: Hx Congestive Heart Failure, Hx Coronary Artery Disease, Hx DVT, Hx Heart Attack - ? x 12 yrs ago, Hx Hypercholesterolemia, Hx Hypertension, Hx Pulmonary Embolism Pulmonary Medical History: Reports: Hx Bronchitis, Hx COPD Neurological Medical History: Denies: Hx Cerebrovascular Accident Endocrine Medical History: Reports: Hx Hypothyroidism. Denies: Hx Graves' Disease Renal/ Medical History: Reports: Hx Ovarian Cysts. Denies: Hx Kidney Stones, Hx Peritoneal Dialysis, Hx Pelvic Inflammatory Disease Malignancy Medical History: Reports: Hx Cervical Cancer, Hx Ovarian Cancer GI Medical History: Reports: Hx Gastroesophageal Reflux Disease, Hx Hiatal Hernia - Repaired, Hx Irritable Bowel, Hx Colonoscopy, Hx Endoscopy. Denies: Hx Liver Failure, Hx Ulcer Musculoskeltal Medical History: Reports Hx Arthritis - Lupus, Reports Hx Fibromyalgia - Lupus, Denies Hx Multiple Sclerosis, Denies Hx Muscular Dystrophy , Reports Hx Musculoskeletal Deformity, Reports Hx Musculoskeletal Trauma Skin Medical History: Reports Hx Cellulitis - Recently treated, right breast Psychiatric Medical History: Reports: Hx Anxiety, Hx Depression Denies: Hx Schizophrenia Traumatic Medical History: Reports: Hx Fractures - Knee and hip Infectious Medical History: Reports: Hx C-Diff - Was negative in October2015. Not yet successfully collected stool Past Surgical History: Reports: Hx Appendectomy, Hx Bowel Surgery - Polyps, adhesions, Hx Cardiac Catheterization - X2, Hx Cardiac Surgery - 2 stents 2014, Hx Section, Hx Cholecystectomy, Hx Coronary Stent - 3 stents, Hx Herniorrhaphy, Hx Hysterectomy, Hx Orthopedic Surgery - Right knee, bilateral knee replacements and hip replacement metal plate in, Hx Tonsillectomy - Immunizations Immunizations up to date: Yes Hx Pneumococcal Vaccination: 05/20/11 Review of Systems - Review of Systems Notes: Constitutional: Negative for fever. HENT: Negative for sore throat. Eyes: Negative for visual changes. Cardiovascular: Negative for chest pain. Respiratory: Negative for shortness of breath. Gastrointestinal: Negative for abdominal pain, vomiting or diarrhea. Genitourinary: Negative for dysuria. Musculoskeletal: Negative for back pain. Skin: Negative for rash. Neurological: Negative for headaches, weakness or numbness. 10 point ROS negative except as marked above and in HPI. Physical Exam - Vital signs Vitals: Temp BP 97.4 F 72/40 L 02/13/17 22:10 02/13/17 22:10 Interpretation: Hypotensive Notes: PHYSICAL EXAMINATION: GENERAL: Somewhat somnolent, ill in appearance HEAD: Atraumatic, normocephalic. EYES: Pupils equal round and reactive to light, extraocular movements intact, sclera anicteric, conjunctiva are normal. ENT: nares patent, oropharynx clear without exudates. Dry mucous membranes. NECK: Normal range of motion, supple without lymphadenopathy LUNGS: Breath sounds clear to auscultation bilaterally and equal. No wheezes rales or rhonchi. HEART: Regular rate and rhythm without murmurs ABDOMEN: Soft, nontender, normoactive bowel sounds. No guarding, no rebound. No masses appreciated. EXTREMITIES: Normal range of motion, no pitting or edema. No cyanosis. NEUROLOGICAL: No focal neurological deficits. Moves all extremities spontaneously and on command. PSYCH: Somnolent but does respond to questions SKIN: Warm, Dry, normal turgor, no rashes or lesions noted. Course - Re-evaluation Re-evalutation: 02/13/17 22:31 Patient is an ill-appearing 61-year-old woman who arrives in critical condition. She is somewhat altered although does respond appropriately to questions. She does have delayed responses and hesitate to open her eyes despite multiple verbal request. She has profound hypotension initially with systolic blood pressures in the upper 60s at time of my assessment. She is very difficult to access in her port will be accessed. Patient reports that she is only urinated once today and has had severe dysuria and bilateral flank pain. She was recently admitted for pyelonephritis and severe sepsis. I am concerned that this could be recurrent today. Patient also takes chronic narcotic therapy and will trial low-dose of naloxone to see if this improves patient's blood pressure although she otherwise does not have any symptoms of a narcotic overdose. As soon as vascular access is obtained we will begin administering a 2000 mL bolus of normal saline. Cultures, labs, chest x-ray will be obtained. Patient is critically ill at this time will require frequent reassessments. 02/13/17 22:54 Patient has had minimal response to naloxone. She has received 200 mL's of fluid at this time and blood pressures improved into the 80s systolic. Mentation is slightly improved. Will continue to reassess frequently. 02/14/17 00:03 Patient's laboratories do demonstrate acute kidney failure with a creatinine of 2.8 which is new. BUN creatinine ratio is 12 suggesting either prerenal or intrarenal azotemia. Blood pressure is improving at this time with systolic blood pressure at this time in the 90s. She has received a total of 1 L fluid and a second liter will be started at this time. Urinalysis is also consistent with a possible pyelonephritis with white blood cell clumps multiple bacteria and pyuria. I have discussed the findings of these labs with the patient who is agreeable to admission. She will be started on IV ceftriaxone. Will contact Dr. Hilliard for admission. 02/14/17 02:59 Dr. Hilliard did accept the patient for admission. Patient has continued to have periods of hypotension the third liter fluid has been ordered. - Vital Signs Vital signs: Temp Pulse Resp BP Pulse Ox 97.4 F 15 84/50 L 100 02/13/17 22:10 02/14/17 02:16 02/14/17 02:16 02/14/17 02:16 - Laboratory Result Diagrams: 02/13/17 22:40 02/13/17 22:40 Laboratory results interpreted by me: 02/13/17 02/13/17 02/13/17 22:40 22:40 22:40 Hgb 11.1 L Hct 32.6 L RDW 14.1 H Seg Neutrophils % 79.9 H Lymphocytes % 10.1 L VBG pH 7.25 L Sodium 124.2 L Chloride 87 L Carbon Dioxide 21 L BUN 45 H Creatinine 3.78 H Est GFR ( Amer) 15 L Est GFR (Non-Af Amer) 12 L Direct Bilirubin 0.5 H AST 121 H Urine Protein Ur Leukocyte Esterase 02/13/17 22:40 Hgb Hct RDW Seg Neutrophils % Lymphocytes % VBG pH Sodium Chloride Carbon Dioxide BUN Creatinine Est GFR ( Amer) Est GFR (Non-Af Amer) Direct Bilirubin AST Urine Protein 100 H Ur Leukocyte Esterase LARGE H - Diagnostic Test Radiology reviewed: Image reviewed, Reports reviewed Radiology results interpreted by me: 02/14/17 02:59 Chest x-ray: No acute infiltrate or pneumothorax Critical Care Note - Critical Care Note Total time excluding time spent on procedures (mins): 45 Comments: Critical care time spent obtaining history from patient or surrogate, discussions with consultants, development of treatment plan with patient or surrogate, evaluation of patient's response to treatment, examination of patient , ordering and performing treatments and interventions, ordering and review of laboratory studies, re-evaluation of patient's condition, ordering and review of radiographic studies and review of old charts Discharge - Discharge Clinical Impression: Hypovolemia, Acute kidney injury, Hyponatremia, Pyelonephritis Hypotension Qualifiers: Hypotension type: unspecified hypotension type Qualified Code(s): I95.9 - Hypotension, unspecified Disposition: ADMITTED INPATIENT Admitting Provider: [facility] Unit Admitted: [facility]
[2017-02-13 22:53] LABS: VENOUS BLOOD BASE EXCESS -4.2 mmol/L; VENOUS BLOOD HCO3 23.5 mmol/L (20-32); VENOUS BLOOD PCO2 54.5 mmHg (35-63); VENOUS BLOOD PH 7.25 (7.30-7.42)
[2017-02-13 22:54] LABS: ABSOLUTE EOSINOPHILS # (AUTO) 0.1 10^3/uL (0.0-0.6); ABSOLUTE MONOCYTES (AUTO) 0.9 10^3/uL (0.1-1.4); ABSOLUTE NEUT (AUTO) 8.2 10^3/uL (1.7-8.2); BASOPHILS % (AUTO) 0.2 % (0-2); EOSINOPHILS % (AUTO) 0.9 % (0-6); HEMATOCRIT 32.6 % (36.0-47.0); HEMOGLOBIN 11.1 g/dL (12.0-15.5); HGB HCT DIFFERENCE 0.7; LYMPHOCYTES % (AUTO) 10.1 % (13-45); MEAN CORPUSCULAR HEMOGLOBIN 28.5 pg (27.0-33.4); MEAN CORPUSCULAR HGB CONC 34.2 g/dL (32.0-36.0); MEAN CORPUSCULAR VOLUME 83 fl (80-97); MONOCYTES % (AUTO) 8.9 % (3-13); RED BLOOD COUNT 3.92 10^6/uL (3.72-5.28); RED CELL DISTRIBUTION WIDTH 14.1 % (11.5-14.0); SEGMENTED NEUTROPHILS % (AUTO) 79.9 % (42-78); WHITE BLOOD COUNT 10.3 10^3/uL (4.0-10.5)
[2017-02-13 23:14] LABS: APPEARANCE,URINE CLOUDY; BILIRUBIN,URINE NEGATIVE (NEGATIVE); GLUCOSE, URINE NEGATIVE (NEGATIVE); KETONES,URINE NEGATIVE (NEGATIVE); LEUKOCYTE ESTERASE,URINE LARGE (NEGATIVE); NITRITE,URINE NEGATIVE (NEGATIVE); PROTEIN,URINE 100 mg/dL (NEGATIVE); URINE SPECIFIC GRAVITY 1.014; UROBILINOGEN,URINE NEGATIVE mg/dL (<2.0)
--- NOTE | 2017-02-13 23:14 | RADIOLOGY REPORT (SQ) ---
EXAM DESCRIPTION: CHEST SINGLE VIEW COMPLETED DATE/TIME: 02/13/2017 11:02 pm REASON FOR STUDY: ams, hypotension, eval pneumonia COMPARISON: 11/08/2016 EXAM PARAMETERS: NUMBER OF VIEWS: One view. TECHNIQUE: Single frontal radiographic view of the chest acquired. RADIATION DOSE: NA LIMITATIONS: None. FINDINGS: LUNGS AND PLEURA: No opacities, masses or pneumothorax. No pleural effusion. MEDIASTINUM AND HILAR STRUCTURES: No masses. Contour normal. HEART AND VASCULAR STRUCTURES: Heart normal in size. Normal vasculature. BONES: No acute findings. HARDWARE: [id number] remains in place. OTHER: No other significant finding. IMPRESSION: NO ACUTE RADIOGRAPHIC FINDING IN THE CHEST. TECHNICAL DOCUMENTATION: JOB ID: [id number]
[2017-02-13 23:15] LABS: ALANINE AMINOTRANSFERASE 35 U/L (9-52); ALKALINE PHOSPHATASE 112 U/L (38-126); ANION GAP 16 (5-19); ASPARTATE AMINO TRANSFERASE 121 U/L (14-36); BILIRUBIN,DIRECT 0.5 mg/dL (0.0-0.4); BILIRUBIN,TOTAL 0.7 mg/dL (0.2-1.3); BLOOD UREA NITROGEN 45 mg/dL (7-20); CARBON DIOXIDE 21 mmol/L (22-30); CHLORIDE 87 mmol/L (98-107); CREATININE RESULT 3.78 mg/dL (0.52-1.25); GLUCOSE 104 mg/dL (75-110); POTASSIUM 3.6 mmol/L (3.6-5.0); SODIUM 124.2 mmol/L (137-145); TOTAL PROTEIN 6.7 g/dL (6.3-8.2)
[2017-02-13] MEDS ORDERED: CEFTRIAXONE 1 GM/D5W RTU 50 ML IV ONE (23:57)
[2017-02-14] MEDS ORDERED: NORMAL SALINE 1000 ML 1,000 ML IV ONE (02:35)
[2017-02-14] MEDS ORDERED: NORMAL SALINE 1000 ML 1,000 ML IV PRN (07:56)
--- NOTE | 2017-02-14 09:13 | EKG REPORT ---
SEVERITY:- ABNORMAL ECG - SINUS RHYTHM FIRST DEGREE AV BLOCK BORDERLINE T ABNORMALITIES, ANTERIOR LEADS : Confirmed by: Patti Naylor MD 14-Feb-2017 09:12:42
--- NOTE | 2017-02-14 09:14 | EKG REPORT ---
SEVERITY:- DEFECTIVE ECG - PAIRED VENTRICULAR PREMATURE COMPLEXES NONSPECIFIC INTRAVENTRICULAR CONDUCTION DELAY MINIMAL ST DEPRESSION SINUS RHYTHM BASELINE ARTIFACT,REPEAT EKG : Confirmed by: Patti Naylor MD 14-Feb-2017 09:13:35
[2017-02-14] MEDS ORDERED: ENOXAPARIN SODIUM INJ 30 MG/0.3 ML DISP.SYRIN SUBCUT ONE (11:00)
[2017-02-14 11:06] LABS: ARTERIAL BLOOD BASE EXCESS -6.5 mmol/L; ARTERIAL BLOOD O2 SATURATION 97.7 % (94-98)
[2017-02-14 11:23] LABS: LIPASE 73.5 U/L (23-300); MAGNESIUM 1.8 mg/dL (1.6-2.3); PHOSPHORUS 5.5 mg/dL (2.5-4.5)
[2017-02-14 11:25] LABS: AMYLASE < 30 U/L (30-110)
[2017-02-14 11:47] LABS: TROPONIN I < 0.012 ng/mL
[2017-02-14 11:54] LABS: THYROID STIMULATING HORMONE 0.18 uIU/mL (0.47-4.68)
[2017-02-14] MEDS: CEFTRIAXONE 1 GM/D5W RTU 50 ML IV SCH (12:44)
[2017-02-14 16:47] LABS: TROPONIN I < 0.012 ng/mL
[2017-02-14] MEDS ORDERED: CYCLOBENZAPRINE HCL 10 MG TABLET PO PRN (17:52)
[2017-02-14] MEDS ORDERED: ONDANSETRON HCL 8 MG TABLET PO PRN (17:52)
--- NOTE | 2017-02-14 18:23 | PDOC H&P ---
History of Present Illness Admission Date/PCP: 02/14/17 07:57 IAN MUÑOZ MD History of Present Illness: VALENTE MUNOZ is a 61 year old female,Patient came to the ER last night because of altered mental status, she was seen and evaluated in the emergency room , the blood pressure recorded was 78 systolic, there was associated urinary tract infection. She has a history of urinary bladder atony and she does self catheterization. She has had admission multiple times for UTI related sepsis she was resuscitated with IV fluid in the emergency room. She was also found to have acute kidney injury due to ATN from hypotension. Past Medical History Cardiac Medical History: Reports: Coronary Artery Disease, DVT, Myocardial Infarction - ? x 12 yrs ago, Hyperlipidema, Hypertension, Pulmonary Embolism Pulmonary Medical History: Reports: Bronchitis, Chronic Obstructive Pulmonary Disease (COPD) Endocrine Medical History: Reports: Hypothyroidism, Other - Syndrome of inappropriate ADH secretion Malignancy Medical History: Reports: Cervical Cancer, Ovarian Cancer GI Medical History: Reports: Gastroesophageal Reflux Disease, Hiatal Hernia - Repaired Musculoskeltal Medical History: Reports: Arthritis - Lupus, Fibromyalgia - Lupus Psychiatric Medical History: Reports: Depression Hematology: Reports: Anemia Infectious Medical History: Reports: Clostridium Difficile - Was negative in October2015. Not yet successfully collected stool Past Surgical History Past Surgical History: Reports: Appendectomy, Cardiac Catheterization - X2, Section, Cholecystectomy, Coronary Stent - 3 stents, Herniorrhaphy, Hysterectomy, Orthopedic Surgery - Right knee, bilateral knee replacements and hip replacement metal plate in, Tonsillectomy Social History Lives with: Family Smoking Status: Current Some Day Smoker Cigarettes Packs Per Day: 2 Number of Years Smokin Last Time Smoked: January 11, 2014 Frequency of Alcohol Use: None Hx Recreational Drug Use: No Drugs: None Hx Prescription Drug Abuse: No - Advance Directive Resuscitation Status: Full Code Family History Family History: Arthritis, COPD, Hyperlipidemia, Hypertension, Malignancy, Thyroid Disfunction Parental Family History Reviewed: Yes Children Family History Reviewed: Yes Sibling(s) Family History Reviewed.: Yes Medication/Allergy Home Medications: Atorvastatin Calcium [Lipitor 10 mg Tablet] 10 mg PO QHS 02/14/17 Carvedilol Phosphate [Coreg CR 40 mg Ext. Release Capsule] 1 cap.sr PO DAILY 03/26 Clopidogrel Bisulfate [Plavix 75 mg Tablet] 75 mg PO DAILY 02/14/17 Cyanocobalamin (Vitamin B-12) [Vitamin B-12 Inj 1000 Mcg/1 ml Vial] 1,000 mcg IM .MONTHLY 02/14/17 Cyclobenzaprine HCl [Flexeril 10 mg Tablet] 10 mg PO DAILYP PRN 02/14/17 Cyclobenzaprine HCl [Flexeril 10 mg Tablet] 10 mg PO QHS 02/14/17 Gabapentin [Neurontin] 600 mg PO Q8 02/14/17 Hydrocodone Bitartrate [Zohydro ER] 40 mg PO Q12 02/14/17 Hydrocodone/Acetaminophen [[place] 10-325 mg Tablet] 1 tab PO Q6HP PRN 02/14/17 Hydroxychloroquine Sulfate [Plaquenil 200 mg Tablet] 200 mg PO BID 02/14/17 Levothyroxine Sodium [Synthroid] 200 mcg PO DAILY 02/14/17 Losartan/Hydrochlorothiazide [Hyzaar 100-25 Tablet] 1 each PO DAILY 02/14/17 Lubiprostone [Amitiza 24 Mcg Capsule] 24 mcg PO BID 02/14/17 Meloxicam [Mobic 7.5 Mg Tablet] 7.5 mg PO DAILY 02/14/17 Ondansetron HCl [Zofran 8 mg Tablet] 8 mg PO TIDP PRN 02/14/17 Allergies/Adverse Reactions: hydrocortisone [From Cortizone-10] Allergy (Severe, Verified 02/13/17 23:01) Anaphylaxis irbesartan [From Avapro] Allergy (Severe, Verified 02/13/17 23:01) swelling of face levofloxacin [From Levaquin] Allergy (Severe, Verified 02/13/17 23:01) GI upset/lips swell lidocaine [Lidocaine] Allergy (Severe, Verified 02/13/17 23:01) Anaphylaxis methadone [Methadone] Allergy (Severe, Verified 02/13/17 23:01) eyes swell nitrofurantoin macrocrystalline [From Macrobid] Allergy (Severe, Verified 23:01) Generalized edema Penicillins Allergy (Severe, Verified 02/13/17 23:01) eyes swelled pregabalin [From Lyrica] Allergy (Severe, Verified 02/13/17 23:01) Equilibrium Issues venom-honey bee [bee venom (honey bee)] Allergy (Verified 02/13/17 23:01) Anaphylaxis ciprofloxacin [From Cipro] Adverse Reaction (Severe, Verified 02/13/17 23:01) GI upset Review of Systems Constitutional: ABSENT: chills, fever(s), headache(s), weight gain, weight loss Eyes: ABSENT: visual disturbances Ears: ABSENT: hearing changes Cardiovascular: ABSENT: chest pain, dyspnea on exertion, edema, orthropnea, palpitations Respiratory: ABSENT: cough, hemoptysis Gastrointestinal: PRESENT: abdominal pain Genitourinary: ABSENT: dysuria, hematuria Musculoskeletal: PRESENT: back pain. ABSENT: joint swelling Integumentary: ABSENT: rash, wounds Neurological: ABSENT: abnormal gait, abnormal speech, confusion, dizziness, focal weakness, syncope Psychiatric: ABSENT: anxiety, depression, homidical ideation, suicidal ideation Endocrine: ABSENT: cold intolerance, heat intolerance, menstrual abnormalities, polydipsia, polyuria Hematologic/Lymphatic: ABSENT: easy bleeding, easy bruising, lymphadenopathy Physical Exam Vital Signs: Temp Pulse Resp BP Pulse Ox 97.7 F 69 18 92/53 L 90 L 02/14/17 15:58 02/14/17 15:58 02/14/17 15:58 02/14/17 15:58 02/14/17 15:58 General appearance: PRESENT: mild distress Eye exam: PRESENT: PERRLA Respiratory exam: PRESENT: clear to auscultation martínez Cardiovascular exam: PRESENT: +S1, +S2 GI/Abdominal exam: PRESENT: soft Neurological exam: PRESENT: alert, CN II-XII grossly intact Results Laboratory Results: 02/14/17 02/14/17 02/14/17 10:35 10:56 10:56 Carbonic Acid 1.36 H HCO3/H2CO3 Ratio 14:1 ABG pH 7.27 L ABG pCO2 45.2 H ABG pO2 116.6 H ABG HCO3 20.2 ABG O2 Saturation 97.7 ABG Base Excess -6.5 FiO2 3.5L Phosphorus 5.5 H Magnesium 1.8 Amylase < 30 L Lipase 73.5 TSH 0.18 L Free T4 1.73 02/14/17 02/14/17 02/14/17 10:56 10:56 16:05 Creatine Kinase 8380 H 7634 H CK-MB (CK-2) 45.90 H Troponin I < 0.012 02/14/17 16:05 Creatine Kinase CK-MB (CK-2) 42.00 H Troponin I < 0.012 Impressions: Chest X-Ray 02/13/17 22:30 IMPRESSION: NO ACUTE RADIOGRAPHIC FINDING IN THE CHEST. Assessment & Plan - Diagnosis (1) Hypotension Qualifiers: Hypotension type: unspecified hypotension type Qualified Code(s): I95.9 - Hypotension, unspecified Is this a current diagnosis for this admission?: YesPlan: Hypotension is most likely sepsis related. (2) Urinary tract infection Qualifiers: Urinary tract infection type: site unspecified Hematuria presence: without hematuria Qualified Code(s): N39.0 - Urinary tract infection, site not specified Is this a current diagnosis for this admission?: YesPlan: She has a history of recurrent UTI, is most likely from self catheterization (3) NGOC (acute kidney injury) Is this a current diagnosis for this admission?: YesPlan: There is associated acute kidney injury most likely from acute tubular necrosis from low blood pressure (4) Acute tubular necrosis Is this a current diagnosis for this admission?: Yes (5) Elevated CPK Is this a current diagnosis for this admission?: Yes (6) Metabolic encephalopathy Is this a current diagnosis for this admission?: Yes (7) Hyponatremia Is this a current diagnosis for this admission?: Yes (8) History of DVT (deep vein thrombosis) Is this a current diagnosis for this admission?: Yes (9) Personal history of pulmonary embolism Is this a current diagnosis for this admission?: Yes
[2017-02-14] MEDS: GABAPENTIN 300 MG CAPSULE PO SCH (21:17)
[2017-02-14] MEDS: HYDROCODONE/ACETAMINOPHEN 10-325 MG TABLET PO PRN (21:18)
[2017-02-14] MEDS: CARVEDILOL 12.5 MG TABLET PO SCH (21:18)
[2017-02-14] MEDS: ATORVASTATIN CALCIUM 10 MG TABLET PO SCH (21:19)
[2017-02-14] MEDS: CYCLOBENZAPRINE HCL 10 MG TABLET PO SCH (21:19)
[2017-02-14] MEDS: HYDROXYCHLOROQUINE SULFATE 200 MG TABLET PO SCH (21:21)
[2017-02-14] MEDS: LUBIPROSTONE 24 MCG CAPSULE PO SCH (21:21)
[2017-02-14] MEDS ORDERED: HYDROCODONE BITARTRATE 40 MG PO SCH (22:00)
[2017-02-14 23:01] LABS: TROPONIN I < 0.012 ng/mL
[2017-02-15] MEDS: NORMAL SALINE 1000 ML 1,000 ML IV PRN (02:13)
[2017-02-15 06:12] LABS: ABSOLUTE EOSINOPHILS # (AUTO) 0.1 10^3/uL (0.0-0.6); ABSOLUTE LYMPHOCYTES (AUTO) 1.3 10^3/uL (0.5-4.7); ABSOLUTE MONOCYTES (AUTO) 0.9 10^3/uL (0.1-1.4); ABSOLUTE NEUT (AUTO) 6.5 10^3/uL (1.7-8.2); BASOPHILS % (AUTO) 0.2 % (0-2); HEMATOCRIT 28.4 % (36.0-47.0); HEMOGLOBIN 9.8 g/dL (12.0-15.5); LYMPHOCYTES % (AUTO) 14.4 % (13-45); MEAN CORPUSCULAR HEMOGLOBIN 28.5 pg (27.0-33.4); MEAN CORPUSCULAR HGB CONC 34.7 g/dL (32.0-36.0); MEAN CORPUSCULAR VOLUME 82 fl (80-97); RED BLOOD COUNT 3.44 10^6/uL (3.72-5.28); RED CELL DISTRIBUTION WIDTH 14.4 % (11.5-14.0); SEGMENTED NEUTROPHILS % (AUTO) 74.4 % (42-78); WHITE BLOOD COUNT 8.7 10^3/uL (4.0-10.5)
[2017-02-15 06:30] LABS: ANION GAP 10 (5-19); BLOOD UREA NITROGEN 41 mg/dL (7-20); CALCIUM 8.3 mg/dL (8.4-10.2); CARBON DIOXIDE 21 mmol/L (22-30); CHLORIDE 96 mmol/L (98-107); CHOLESTEROL 111.04 mg/dL (0-200); CREATININE RESULT 2.32 mg/dL (0.52-1.25); Direct HDL 35 mg/dL (>40); GLUCOSE 90 mg/dL (75-110); POTASSIUM 3.2 mmol/L (3.6-5.0); SODIUM 127.2 mmol/L (137-145); TRIGLYCERIDES 118 mg/dL (<150)
[2017-02-15 06:41] LABS: DIRECT LDL 38 mg/dL (<100)
[2017-02-15] MEDS: HYDROCODONE/ACETAMINOPHEN 10-325 MG TABLET PO PRN (06:47)
[2017-02-15] MEDS: GABAPENTIN 300 MG CAPSULE PO SCH ×3 (06:47→21:16)
[2017-02-15] MEDS: CARVEDILOL 12.5 MG TABLET PO SCH ×2 (09:55→21:17)
[2017-02-15] MEDS: CLOPIDOGREL BISULFATE 75 MG TABLET PO SCH (09:56)
[2017-02-15] MEDS: LEVOTHYROXINE SODIUM 0.1 MG TABLET PO SCH (09:56)
[2017-02-15] MEDS: ENOXAPARIN SODIUM INJ 30 MG/0.3 ML DISP.SYRIN SUBCUT SCH (09:56)
[2017-02-15] MEDS: HYDROXYCHLOROQUINE SULFATE 200 MG TABLET PO SCH ×2 (09:57→21:16)
[2017-02-15] MEDS: LOSARTAN POTASSIUM 50 MG TABLET PO SCH (09:57)
[2017-02-15] MEDS: LUBIPROSTONE 24 MCG CAPSULE PO SCH ×2 (09:58→21:15)
[2017-02-15] MEDS: MELOXICAM 7.5 MG TABLET PO SCH (09:58)
[2017-02-15] MEDS: HYDROCHLOROTHIAZIDE 25 MG TABLET PO SCH (09:58)
[2017-02-15] MEDS: CEFTRIAXONE 1 GM/D5W RTU 50 ML IV SCH (09:58)
[2017-02-15] MEDS ORDERED: (PENDING PHARMACY ID) (Losartan/Hydrochlorothiazide [Hyzaar 100-25 Tablet] 1 EACH) PO SCH (10:00)
[2017-02-15] MEDS ORDERED: POTASSIUM CHLORIDE 10 MEQ TABLET.SA PO ONE (13:30)
[2017-02-15 18:45] LABS: ABSOLUTE EOSINOPHILS # (AUTO) 0.1 10^3/uL (0.0-0.6); ABSOLUTE LYMPHOCYTES (AUTO) 0.9 10^3/uL (0.5-4.7); ABSOLUTE MONOCYTES (AUTO) 0.6 10^3/uL (0.1-1.4); ABSOLUTE NEUT (AUTO) 6.6 10^3/uL (1.7-8.2); BASOPHILS % (AUTO) 0.3 % (0-2); EOSINOPHILS % (AUTO) 1.1 % (0-6); HEMATOCRIT 27.3 % (36.0-47.0); HEMOGLOBIN 9.4 g/dL (12.0-15.5); HGB HCT DIFFERENCE 0.9; LYMPHOCYTES % (AUTO) 11.2 % (13-45); MEAN CORPUSCULAR HEMOGLOBIN 28.3 pg (27.0-33.4); MEAN CORPUSCULAR HGB CONC 34.5 g/dL (32.0-36.0); MEAN CORPUSCULAR VOLUME 82 fl (80-97); MONOCYTES % (AUTO) 7.4 % (3-13); RED BLOOD COUNT 3.33 10^6/uL (3.72-5.28); RED CELL DISTRIBUTION WIDTH 14.1 % (11.5-14.0); WHITE BLOOD COUNT 8.2 10^3/uL (4.0-10.5)
--- NOTE | 2017-02-15 19:02 | PDOC PROGRESS REPORT ---
Subjective Progress Note for:: 02/15/17 Subjective:: She was admitted yesterday because of sepsis ,UTI ,hypotension and acute kidney injury .She is still confused ocasionally Physical Exam Vital Signs: Temp Pulse Resp BP Pulse Ox 98.2 F 73 19 109/59 L 100 02/15/17 16:03 02/15/17 16:03 02/15/17 16:03 02/15/17 16:03 02/15/17 16:03 Intake & Output 02/14/17 02/15/17 02/16/17 06:59 06:59 06:59 Intake Total 2970 1291 Output Total 900 2000 Balance 2070 -709 Weight 90.7 kg General appearance: PRESENT: no acute distress Eye exam: PRESENT: PERRLA Respiratory exam: PRESENT: clear to auscultation martínez Cardiovascular exam: PRESENT: +S1, +S2 GI/Abdominal exam: PRESENT: soft Neurological exam: PRESENT: alert, CN II-XII grossly intact Results Laboratory Results: 02/15/17 18:38 02/15/17 02/15/17 02/15/17 05:58 05:58 18:38 WBC 8.7 8.2 RBC 3.44 L 3.33 L Hgb 9.8 L 9.4 L Hct 28.4 L 27.3 L MCV 82 82 MCH 28.5 28.3 MCHC 34.7 34.5 RDW 14.4 H 14.1 H Plt Count 172 174 Seg Neutrophils % 74.4 80.0 H Lymphocytes % 14.4 11.2 L Monocytes % 10.0 7.4 Eosinophils % 1.0 1.1 Basophils % 0.2 0.3 Absolute Neutrophils 6.5 6.6 Absolute Lymphocytes 1.3 0.9 Absolute Monocytes 0.9 0.6 Absolute Eosinophils 0.1 0.1 Absolute Basophils 0.0 0.0 Sodium 127.2 L Potassium 3.2 L Chloride 96 L Carbon Dioxide 21 L Anion Gap 10 BUN 41 H Creatinine 2.32 H Est GFR ( Amer) 26 L Est GFR (Non-Af Amer) 21 L Glucose 90 Calcium 8.3 L Triglycerides 118 Cholesterol 111.04 LDL Cholesterol Direct 38 VLDL Cholesterol 24.0 HDL Cholesterol 35 L 02/14/17 02/14/17 02/14/17 10:56 10:56 16:05 Creatine Kinase 8380 H 7634 H CK-MB (CK-2) 45.90 H Troponin I < 0.012 02/14/17 02/14/17 02/14/17 16:05 22:14 22:14 Creatine Kinase 5369 H CK-MB (CK-2) 42.00 H 33.00 H Troponin I < 0.012 < 0.012 Impressions: Chest X-Ray 02/13/17 22:30 IMPRESSION: NO ACUTE RADIOGRAPHIC FINDING IN THE CHEST. Assessment & Plan - Diagnosis (1) Hypotension Qualifiers: Hypotension type: unspecified hypotension type Qualified Code(s): I95.9 - Hypotension, unspecified Is this a current diagnosis for this admission?: Yes (2) Urinary tract infection Qualifiers: Urinary tract infection type: site unspecified Hematuria presence: without hematuria Qualified Code(s): N39.0 - Urinary tract infection, site not specified Is this a current diagnosis for this admission?: Yes (3) NGOC (acute kidney injury) Is this a current diagnosis for this admission?: Yes (4) Acute tubular necrosis Is this a current diagnosis for this admission?: Yes (5) Elevated CPK Is this a current diagnosis for this admission?: Yes (6) Metabolic encephalopathy Is this a current diagnosis for this admission?: Yes (7) Hyponatremia Is this a current diagnosis for this admission?: Yes (8) History of DVT (deep vein thrombosis) Is this a current diagnosis for this admission?: Yes (9) Personal history of pulmonary embolism Is this a current diagnosis for this admission?: Yes - Plan Summary Plan Summary: she will continue IV antibiotic ,IV hydration
[2017-02-15 19:05] LABS: ALANINE AMINOTRANSFERASE 37 U/L (9-52); ALKALINE PHOSPHATASE 95 U/L (38-126); ANION GAP 10 (5-19); ASPARTATE AMINO TRANSFERASE 94 U/L (14-36); BILIRUBIN,DIRECT 0.3 mg/dL (0.0-0.4); BILIRUBIN,TOTAL 0.3 mg/dL (0.2-1.3); BLOOD UREA NITROGEN 33 mg/dL (7-20); CALCIUM 8.6 mg/dL (8.4-10.2); CARBON DIOXIDE 21 mmol/L (22-30); CHLORIDE 100 mmol/L (98-107); CREATININE RESULT 1.71 mg/dL (0.52-1.25); GLUCOSE 108 mg/dL (75-110); POTASSIUM 3.4 mmol/L (3.6-5.0); SODIUM 130.8 mmol/L (137-145); TOTAL PROTEIN 5.3 g/dL (6.3-8.2)
[2017-02-15] MEDS: ATORVASTATIN CALCIUM 10 MG TABLET PO SCH (21:16)
[2017-02-15] MEDS: CYCLOBENZAPRINE HCL 10 MG TABLET PO SCH (21:16)
[2017-02-15 21:48] LABS: APPEARANCE,URINE CLEAR; BILIRUBIN,URINE NEGATIVE (NEGATIVE); GLUCOSE, URINE NEGATIVE (NEGATIVE); KETONES,URINE NEGATIVE (NEGATIVE); URINE SPECIFIC GRAVITY 1.008
[2017-02-15 21:49] LABS: LEUKOCYTE ESTERASE,URINE LARGE (NEGATIVE); NITRITE,URINE NEGATIVE (NEGATIVE); PROTEIN,URINE NEGATIVE (NEGATIVE); UROBILINOGEN,URINE NEGATIVE mg/dL (<2.0)
[2017-02-15 21:50] LABS: BACTERIA,URINE TRACE /HPF
[2017-02-15 21:58] LABS: URINE BARBITURATES SCREEN NEGATIVE; URINE METHADONE SCREEN NEGATIVE; URINE PHENCYCLIDINE SCREEN NEGATIVE
[2017-02-15 22:04] LABS: URINE OPIATES LOW UNCONFIRMED POSITIVE
[2017-02-16 05:39] LABS: ABSOLUTE EOSINOPHILS # (AUTO) 0.1 10^3/uL (0.0-0.6); ABSOLUTE LYMPHOCYTES (AUTO) 1.3 10^3/uL (0.5-4.7); ABSOLUTE MONOCYTES (AUTO) 0.5 10^3/uL (0.1-1.4); ABSOLUTE NEUT (AUTO) 4.8 10^3/uL (1.7-8.2); BASOPHILS % (AUTO) 0.5 % (0-2); EOSINOPHILS % (AUTO) 1.4 % (0-6); HEMATOCRIT 25.8 % (36.0-47.0); HEMOGLOBIN 8.8 g/dL (12.0-15.5); HGB HCT DIFFERENCE 0.6; LYMPHOCYTES % (AUTO) 19.5 % (13-45); MEAN CORPUSCULAR HEMOGLOBIN 28.3 pg (27.0-33.4); MEAN CORPUSCULAR HGB CONC 34.2 g/dL (32.0-36.0); MEAN CORPUSCULAR VOLUME 83 fl (80-97); MONOCYTES % (AUTO) 7.9 % (3-13); RED BLOOD COUNT 3.12 10^6/uL (3.72-5.28); RED CELL DISTRIBUTION WIDTH 14.1 % (11.5-14.0); SEGMENTED NEUTROPHILS % (AUTO) 70.7 % (42-78); WHITE BLOOD COUNT 6.9 10^3/uL (4.0-10.5)
[2017-02-16 05:52] LABS: ANION GAP 9 (5-19); BLOOD UREA NITROGEN 26 mg/dL (7-20); CALCIUM 8.7 mg/dL (8.4-10.2); CARBON DIOXIDE 21 mmol/L (22-30); CHLORIDE 104 mmol/L (98-107); CREATININE RESULT 1.33 mg/dL (0.52-1.25); GLUCOSE 85 mg/dL (75-110); POTASSIUM 3.9 mmol/L (3.6-5.0); SODIUM 133.8 mmol/L (137-145)
[2017-02-16] MEDS: GABAPENTIN 300 MG CAPSULE PO SCH ×3 (06:44→21:29)
[2017-02-16] MEDS: CARVEDILOL 12.5 MG TABLET PO SCH ×2 (09:18→21:30)
[2017-02-16] MEDS: LOSARTAN POTASSIUM 50 MG TABLET PO SCH (09:18)
[2017-02-16] MEDS: LEVOTHYROXINE SODIUM 0.1 MG TABLET PO SCH (09:18)
[2017-02-16] MEDS: CLOPIDOGREL BISULFATE 75 MG TABLET PO SCH (09:18)
[2017-02-16] MEDS: MELOXICAM 7.5 MG TABLET PO SCH (09:19)
[2017-02-16] MEDS: HYDROCHLOROTHIAZIDE 25 MG TABLET PO SCH (09:19)
[2017-02-16] MEDS: HYDROXYCHLOROQUINE SULFATE 200 MG TABLET PO SCH ×2 (09:19→21:29)
[2017-02-16] MEDS: CEFTRIAXONE 1 GM/D5W RTU 50 ML IV SCH (09:19)
[2017-02-16] MEDS: LUBIPROSTONE 24 MCG CAPSULE PO SCH ×2 (09:19→21:30)
[2017-02-16] MEDS: ENOXAPARIN SODIUM INJ 30 MG/0.3 ML DISP.SYRIN SUBCUT SCH (09:20)
[2017-02-16] MEDS: NORMAL SALINE 1000 ML 1,000 ML IV PRN (13:21)
[2017-02-16] MEDS: CYCLOBENZAPRINE HCL 10 MG TABLET PO SCH (21:29)
[2017-02-16] MEDS: ATORVASTATIN CALCIUM 10 MG TABLET PO SCH (21:29)
[2017-02-16] MEDS: HYDROCODONE/ACETAMINOPHEN 10-325 MG TABLET PO PRN (21:30)
[2017-02-17 05:43] LABS: ABSOLUTE EOSINOPHILS # (AUTO) 0.1 10^3/uL (0.0-0.6); ABSOLUTE LYMPHOCYTES (AUTO) 1.6 10^3/uL (0.5-4.7); ABSOLUTE MONOCYTES (AUTO) 0.5 10^3/uL (0.1-1.4); ABSOLUTE NEUT (AUTO) 3.9 10^3/uL (1.7-8.2); BASOPHILS % (AUTO) 0.2 % (0-2); EOSINOPHILS % (AUTO) 1.3 % (0-6); HEMATOCRIT 26.5 % (36.0-47.0); HGB HCT DIFFERENCE 0.5; MEAN CORPUSCULAR HEMOGLOBIN 28.2 pg (27.0-33.4); MEAN CORPUSCULAR HGB CONC 33.9 g/dL (32.0-36.0); MEAN CORPUSCULAR VOLUME 83 fl (80-97); MONOCYTES % (AUTO) 8.9 % (3-13); RED BLOOD COUNT 3.18 10^6/uL (3.72-5.28); RED CELL DISTRIBUTION WIDTH 14.1 % (11.5-14.0); SEGMENTED NEUTROPHILS % (AUTO) 63.6 % (42-78); WHITE BLOOD COUNT 6.1 10^3/uL (4.0-10.5)
[2017-02-17] MEDS: GABAPENTIN 300 MG CAPSULE PO SCH ×2 (05:49→13:24)
[2017-02-17 05:59] LABS: ANION GAP 8 (5-19); BLOOD UREA NITROGEN 15 mg/dL (7-20); CALCIUM 8.5 mg/dL (8.4-10.2); CARBON DIOXIDE 24 mmol/L (22-30); CHLORIDE 103 mmol/L (98-107); CREATININE RESULT 0.95 mg/dL (0.52-1.25); GLUCOSE 95 mg/dL (75-110); SODIUM 135.4 mmol/L (137-145)
[2017-02-17] MEDS: ENOXAPARIN SODIUM INJ 30 MG/0.3 ML DISP.SYRIN SUBCUT SCH (08:45)
[2017-02-17] MEDS: CEFTRIAXONE 1 GM/D5W RTU 50 ML IV SCH (10:38)
[2017-02-17] MEDS: LEVOTHYROXINE SODIUM 0.1 MG TABLET PO SCH (10:38)
[2017-02-17] MEDS: HYDROCODONE/ACETAMINOPHEN 10-325 MG TABLET PO PRN (10:38)
[2017-02-17] MEDS: HYDROCHLOROTHIAZIDE 25 MG TABLET PO SCH (10:38)
[2017-02-17] MEDS: CARVEDILOL 12.5 MG TABLET PO SCH (10:38)
[2017-02-17] MEDS: CLOPIDOGREL BISULFATE 75 MG TABLET PO SCH (10:38)
[2017-02-17] MEDS: LOSARTAN POTASSIUM 50 MG TABLET PO SCH (10:38)
[2017-02-17] MEDS: LUBIPROSTONE 24 MCG CAPSULE PO SCH (10:38)
[2017-02-17] MEDS: MELOXICAM 7.5 MG TABLET PO SCH (10:39)
[2017-02-17] MEDS: HYDROXYCHLOROQUINE SULFATE 200 MG TABLET PO SCH (10:39)
[2017-02-17 13:07] VITALS: BP 99/48
--- NOTE | 2017-02-17 13:54 | PDOC PROGRESS REPORT ---
Subjective Progress Note for:: 02/16/17 Subjective:: Patient is improving, she was admitted because of UTI due to Proteus mirabilis, there is associated sepsis. Physical Exam Vital Signs: Temp Pulse Resp BP Pulse Ox 98.1 F 65 20 99/48 L 92 02/17/17 13:05 02/17/17 13:05 02/17/17 13:05 02/17/17 13:05 02/17/17 13:05 Intake & Output 02/16/17 02/17/17 02/18/17 06:59 06:59 06:59 Intake Total 2489 2630 Output Total 2000 1099 Balance 488 1530 Weight 89.5 kg 88.9 kg General appearance: PRESENT: no acute distress Eye exam: PRESENT: PERRLA Respiratory exam: PRESENT: clear to auscultation martínez Cardiovascular exam: PRESENT: +S1, +S2 GI/Abdominal exam: PRESENT: soft Neurological exam: PRESENT: alert, CN II-XII grossly intact Results Laboratory Results: 02/17/17 05:25 02/17/17 05:25 02/17/17 02/17/17 05:25 05:25 WBC 6.1 RBC 3.18 L Hgb 9.0 L Hct 26.5 L MCV 83 MCH 28.2 MCHC 33.9 RDW 14.1 H Plt Count 215 Seg Neutrophils % 63.6 Lymphocytes % 26.0 Monocytes % 8.9 Eosinophils % 1.3 Basophils % 0.2 Absolute Neutrophils 3.9 Absolute Lymphocytes 1.6 Absolute Monocytes 0.5 Absolute Eosinophils 0.1 Absolute Basophils 0.0 Sodium 135.4 L Potassium 4.0 Chloride 103 Carbon Dioxide 24 Anion Gap 8 BUN 15 Creatinine 0.95 Est GFR ( Amer) > 60 Est GFR (Non-Af Amer) 59 L Glucose 95 Calcium 8.5 02/14/17 02/14/17 02/14/17 10:56 10:56 16:05 Creatine Kinase 8380 H 7634 H CK-MB (CK-2) 45.90 H Troponin I < 0.012 02/14/17 02/14/17 02/14/17 16:05 22:14 22:14 Creatine Kinase 5369 H CK-MB (CK-2) 42.00 H 33.00 H Troponin I < 0.012 < 0.012 Impressions: Chest X-Ray 02/13/17 22:30 IMPRESSION: NO ACUTE RADIOGRAPHIC FINDING IN THE CHEST. Assessment & Plan - Diagnosis (1) Hypotension Qualifiers: Hypotension type: unspecified hypotension type Qualified Code(s): I95.9 - Hypotension, unspecified Is this a current diagnosis for this admission?: Yes (2) Urinary tract infection Qualifiers: Urinary tract infection type: site unspecified Hematuria presence: without hematuria Qualified Code(s): N39.0 - Urinary tract infection, site not specified Is this a current diagnosis for this admission?: Yes (3) NGOC (acute kidney injury) Is this a current diagnosis for this admission?: Yes (4) Acute tubular necrosis Is this a current diagnosis for this admission?: Yes (5) Elevated CPK Is this a current diagnosis for this admission?: Yes (6) Metabolic encephalopathy Is this a current diagnosis for this admission?: Yes (7) Hyponatremia Is this a current diagnosis for this admission?: Yes (8) History of DVT (deep vein thrombosis) Is this a current diagnosis for this admission?: Yes (9) Personal history of pulmonary embolism Is this a current diagnosis for this admission?: Yes
--- NOTE | 2017-02-17 14:02 | PDOC DISCHARGE SUMMARY ---
General - Admit/Disc Date/PCP Admission Date/Primary Care Provider: 02/14/17 07:57 IAN MUÑOZ MD Discharge Date: 02/17/17 - Discharge Diagnosis (1) Hypotension Is this a current diagnosis for this admission?: Yes (2) Urinary tract infection Is this a current diagnosis for this admission?: Yes (3) NGOC (acute kidney injury) Is this a current diagnosis for this admission?: Yes (4) Acute tubular necrosis Is this a current diagnosis for this admission?: Yes (5) Elevated CPK Is this a current diagnosis for this admission?: Yes (6) Metabolic encephalopathy Is this a current diagnosis for this admission?: Yes (7) Hyponatremia Is this a current diagnosis for this admission?: Yes (8) History of DVT (deep vein thrombosis) Is this a current diagnosis for this admission?: Yes (9) Personal history of pulmonary embolism Is this a current diagnosis for this admission?: Yes (10) Urinary tract infection due to Proteus Is this a current diagnosis for this admission?: Yes (11) Sepsis Is this a current diagnosis for this admission?: Yes - Additional Information Resuscitation Status: Full Code Discharge Diet: As Tolerated Discharge Activity: Activity As Tolerated Home Medications: Atorvastatin Calcium [Lipitor 10 mg Tablet] 10 mg PO QHS 02/14/17 Carvedilol Phosphate [Coreg CR 40 mg Ext. Release Capsule] 1 cap.sr PO DAILY 03/26 Clopidogrel Bisulfate [Plavix 75 mg Tablet] 75 mg PO DAILY 02/14/17 Cyanocobalamin (Vitamin B-12) [Vitamin B-12 Inj 1000 Mcg/1 ml Vial] 1,000 mcg IM .MONTHLY 02/14/17 Cyclobenzaprine HCl [Flexeril 10 mg Tablet] 10 mg PO DAILYP PRN 02/14/17 Cyclobenzaprine HCl [Flexeril 10 mg Tablet] 10 mg PO QHS 02/14/17 Gabapentin [Neurontin] 600 mg PO Q8 02/14/17 Hydrocodone Bitartrate [Zohydro ER] 40 mg PO Q12 02/14/17 Hydrocodone/Acetaminophen [[place] 10-325 mg Tablet] 1 tab PO Q6HP PRN 02/14/17 Hydroxychloroquine Sulfate [Plaquenil 200 mg Tablet] 200 mg PO BID 02/14/17 Levothyroxine Sodium [Synthroid] 200 mcg PO DAILY 02/14/17 Losartan/Hydrochlorothiazide [Hyzaar 100-25 Tablet] 1 each PO DAILY 02/14/17 Lubiprostone [Amitiza 24 Mcg Capsule] 24 mcg PO BID 02/14/17 Meloxicam [Mobic 7.5 mg Tablet] 7.5 mg PO DAILY 02/14/17 Ondansetron HCl [Zofran 8 mg Tablet] 8 mg PO TIDP PRN 02/14/17 Ciprofloxacin 500 mg PO BID #20 ml 02/17/17 History of Present Illness History of Present Illness: VALENTE MUNOZ is a 61 year old female,Patient came to the ER last night because of altered mental status, she was seen and evaluated in the emergency room , the blood pressure recorded was 78 systolic, there was associated urinary tract infection. She has a history of urinary bladder atony and she does self catheterization. She has had admission multiple times for UTI related sepsis she was resuscitated with IV fluid in the emergency room. She was also found to have acute kidney injury due to ATN from hypotension. Hospital Course Hospital Course: Patient was admitted when she presented hypotension, acute kidney injury, altered mental status, hyponatremia. She was treated with IV antibiotic, Rocephin, the presentation was consistent with sepsis she was treated with normal saline infusion, the urine culture grew Proteus mirabilis, sensitive to Rocephin and Cipro. Patient responded to treatment, the blood pressure is normal, the kidney function is back normal and the electrolytes are normal. THE RISK FACTOR FOR THIS PATIENT UTI is the fact that he does self catheterization because she has retention of urine due to bladder atony. Physical Exam Vital Signs: Temp Pulse Resp BP Pulse Ox 98.1 F 65 20 99/48 L 92 02/17/17 13:05 02/17/17 13:05 02/17/17 13:05 02/17/17 13:05 02/17/17 13:05 Intake & Output 02/16/17 02/17/17 02/18/17 06:59 06:59 06:59 Intake Total 2489 2630 Output Total 2000 1100 Balance 488 1530 Weight 89.5 kg 88.9 kg General appearance: PRESENT: no acute distress, well-developed, well-nourished Head exam: PRESENT: atraumatic, normocephalic Eye exam: PRESENT: conjunctiva pink, EOMI, PERRLA Ear exam: PRESENT: normal external ear exam Mouth exam: PRESENT: moist, tongue midline Neck exam: PRESENT: full ROM Respiratory exam: PRESENT: clear to auscultation martínez Cardiovascular exam: PRESENT: RRR, +S1, +S2 Pulses: PRESENT: normal dorsalis pedis pul, +2 pedal pulses bilateral Vascular exam: PRESENT: normal capillary refill GI/Abdominal exam: PRESENT: normal bowel sounds, soft Rectal exam: PRESENT: deferred Neurological exam: PRESENT: alert, awake, oriented to person, oriented to place , oriented to time, oriented to situation, CN II-XII grossly intact Psychiatric exam: PRESENT: appropriate affect, normal mood Skin exam: PRESENT: dry, intact, warm Results Laboratory Results: 02/17/17 05:25 02/17/17 05:25 02/17/17 02/17/17 05:25 05:25 WBC 6.1 RBC 3.18 L Hgb 9.0 L Hct 26.5 L MCV 83 MCH 28.2 MCHC 33.9 RDW 14.1 H Plt Count 215 Seg Neutrophils % 63.6 Lymphocytes % 26.0 Monocytes % 8.9 Eosinophils % 1.3 Basophils % 0.2 Absolute Neutrophils 3.9 Absolute Lymphocytes 1.6 Absolute Monocytes 0.5 Absolute Eosinophils 0.1 Absolute Basophils 0.0 Sodium 135.4 L Potassium 4.0 Chloride 103 Carbon Dioxide 24 Anion Gap 8 BUN 15 Creatinine 0.95 Est GFR ( Amer) > 60 Est GFR (Non-Af Amer) 59 L Glucose 95 Calcium 8.5 02/14/17 02/14/17 02/14/17 10:56 10:56 16:05 Creatine Kinase 8380 H 7634 H CK-MB (CK-2) 45.90 H Troponin I < 0.012 02/14/17 02/14/17 02/14/17 16:05 22:14 22:14 Creatine Kinase 5369 H CK-MB (CK-2) 42.00 H 33.00 H Troponin I < 0.012 < 0.012 Impressions: Chest X-Ray 02/13/17 22:30 IMPRESSION: NO ACUTE RADIOGRAPHIC FINDING IN THE CHEST.
[2017-03-14] MEDS ORDERED: CYANOCOBALAMIN (VITAMIN B-12) INJ 1000 MCG/1 ML VIAL IM SCH (10:00)
== END 2017-02-17 13:30 | disposition home or self-care (01) | DRG 871 ==
LOC: ER 22:08 → UNDOADMIN 02-14 01:25 → EH 02-14 01:25 → 3S 02-14 06:05 → UNDOADMIN 02-14 07:57 → EH 02-14 07:57
PROVIDERS: ADMIT Internal Medicine; ATTEND Internal Medicine
DX: A41.9 Sepsis, unspecified organism (principal); N17.0 Acute kidney failure with tubular necrosis; G93.41 Metabolic encephalopathy; N39.0 Urinary tract infection, site not specified; E87.1 Hypo-osmolality and hyponatremia; B96.4 Proteus (mirabilis) (morganii) as the cause of diseases classified elsewhere; I95.9 Hypotension, unspecified; I25.10 Atherosclerotic heart disease of native coronary artery without angina pectoris; I25.2 Old myocardial infarction; I11.0 Hypertensive heart disease with heart failure; I50.9 Heart failure, unspecified; K21.9 Gastro-esophageal reflux disease without esophagitis; E03.9 Hypothyroidism, unspecified; M19.90 Unspecified osteoarthritis, unspecified site; F32.9 Major depressive disorder, single episode, unspecified; F41.9 Anxiety disorder, unspecified; D64.9 Anemia, unspecified; N31.2 Flaccid neuropathic bladder, not elsewhere classified; R33.8 Other retention of urine; Z79.899 Other long term (current) drug therapy; Z86.718 Personal history of other venous thrombosis and embolism; Z86.711 Personal history of pulmonary embolism; Z85.41 Personal history of malignant neoplasm of cervix uteri; Z85.43 Personal history of malignant neoplasm of ovary; Z90.49 Acquired absence of other specified parts of digestive tract; Z95.5 Presence of coronary angioplasty implant and graft; Z90.710 Acquired absence of both cervix and uterus; Z96.653 Presence of artificial knee joint, bilateral; Z96.649 Presence of unspecified artificial hip joint; Z82.61 Family history of arthritis; Z83.6 Family history of other diseases of the respiratory system; Z82.49 Family history of ischemic heart disease and other diseases of the circulatory system; Z80.9 Family history of malignant neoplasm, unspecified; Z83.49 Family history of other endocrine, nutritional and metabolic diseases; Z88.8 Allergy status to other drugs, medicaments and biological substances; Z88.3 Allergy status to other anti-infective agents; Z88.4 Allergy status to anesthetic agent; Z88.6 Allergy status to analgesic agent; Z88.0 Allergy status to penicillin; Z91.030 Bee allergy status; Z87.891 Personal history of nicotine dependence
CPT/HCPCS: 36415; 36591; 71010; 80048; 80053; 80061; 80307; 81001; 82150; 82550; 82553; 82803; 83036; 83605; 83690; 83735; 84100; 84439; 84443; 84484; 85025; 87040; 87086; 87088; 87186; 93005; 93010; 96361; 96365; 96375; 99291; C1751; J0696; J1650; J2310; J3490; J7030; L0172

== ENCOUNTER 2017-04-05 10:34 | Day surgery (SDC) | payer MEDICARE, OTHER ==
[~2017-04-05 10:34] MED LIST: KETOROLAC TROMETHAMINE 0.45% 4 DROP/0.4 ML DROPERETTE OD PRN
[2017-04-05] MEDS: CYCLOPENTOLATE 0.2%/PHENYLEPHRINE 1% OPH SOLN 2 ML OD PRN ×3 (10:54→11:14)
[2017-04-05] MEDS: TROPICAMIDE 1% OPH SOLN 3 ML OD PRN ×3 (10:54→11:14)
[2017-04-05] MEDS: BESIFLOXACIN HCL 0.6% OPH SUSP 5 ML BOTTLE OD PRN ×4 (10:54→12:02)
[2017-04-05] MEDS: TETRACAINE HCL 0.5% OPH SOLN 2 ML OD PRN ×3 (10:55→11:40)
[2017-04-05] MEDS ORDERED: MIDAZOLAM 2 MG/2 ML INJ ONE (11:05)
[2017-04-05] MEDS ORDERED: EPINEPHRINE INJ/PF 1 MG/1 ML AMPULE ONE (11:11)
[2017-04-05] MEDS ORDERED: CHONDR SU A NA/HYALUR INTRAOC KIT (SURGICARE) ONE (11:12)
[2017-04-05] MEDS ORDERED: TRYPAN BLUE 0.06 % OPH SOLN 0.5 ML DISP.SYRIN ONE (11:12)
[2017-04-05] MEDS ORDERED: LIDOCAINE 1% INJ-PF (10 MG/ML) 30 ML SDV ONE (11:12)
--- NOTE | 2017-04-06 07:49 | [facility] DISCHARGE SUMMARY E ---
[facility] Discharge Summary NAME: VALENTE MUNOZ AGE: 61Y ADMITTED: 04/05/2017 DISCHARGED: 04/05/2017 HOSPITAL COURSE: This is a 61-year-old female who underwent cataract extraction of the right eye. DIAGNOSIS: Cataract, right eye. INDICATIONS: She underwent surgery because she was having difficulty driving secondary to decreased vision and she was unable to see menus at restaurants. DISCHARGE INSTRUCTIONS: She should be on a regular diet. No bending at her waist. No heavy lifting. She should use her Besivance, Ilevro, and Durezol at 3 p.m. and 8 p.m. and sleep with a rigid shield. I will see her for her 1 day postoperative tomorrow. DICTATING PHYSICIAN: LAUREN HAQUE M.D. [id number] PHY#: [id number] ID: [id number] JOB#: [id number] ACCT: [id number] cc:LAUREN HAQUE M.D. >
--- NOTE | 2017-04-06 07:49 | [facility] OPERATIVE REPORT E ---
[facility] Operative Report NAME: VALENTE MUNOZ AGE: 61Y DATE OF SURGERY: 04/05/2017 ROOM: PREOPERATIVE DIAGNOSIS: CATARACT, RIGHT EYE. POSTOPERATIVE DIAGNOSIS: CATARACT, RIGHT EYE. OPERATION: Cataract extraction with intraocular lens implant of the right eye. SURGEON: LAUREN HAQUE M.D. ANESTHESIA: Topical. PROCEDURE: After obtaining appropriate consent, the patient's right eye was prepped and draped in sterile fashion as well as the surgeon in a sterile manner and cataract surgery was started. First a paracentesis blade was used to make a small side-port incision. Viscoelastic was used to inflate the anterior chamber. Next a 2.4 mm incision was made with the paracentesis blade. A continuous capsulorrhexis incision was made using a cystotome and Utrata forceps. Following this hydrodissection was carried out to make the lens fully loose and mobile and it was rotated 90 degrees. Following this, a [id number] technique was used to phacoemulsify the lens with a CDE of 5.76. The remaining cortex was removed with irrigation/aspiration. Provisc was instilled into the capsular bag to inflate the bag. A SN60WF, 20.5 diopter lens was placed. The remaining viscoelastic material was removed with irrigation/aspiration. Following this, a 10-0 nylon suture was used to close the incision and it was found to be watertight. Vigamox was instilled in the eye and a protective shield was placed over the eye. The patient returned to the postoperative recovery in stable condition. DICTATING PHYSICIAN: LAUREN HAQUE M.D. [id number] PHY#: [id number] ID: [id number] JOB#: [id number] ACCT: [id number] cc:LAUREN HAQUE M.D. >
== END 2017-04-05 13:39 | disposition home or self-care (01) ==
LOC: SC 10:34
PROVIDERS: ATTEND Internal Medicine
PROC: 08RJ3JZ Replacement of Right Lens with Synthetic Substitute, Percutaneous Approach (ICD-10-PCS; principal; 2017-04-05 12:00)
DX: H25.89 Other age-related cataract (principal); H04.123 Dry eye syndrome of bilateral lacrimal glands; D64.9 Anemia, unspecified; I10 Essential (primary) hypertension; E78.00 Pure hypercholesterolemia, unspecified; M19.90 Unspecified osteoarthritis, unspecified site; E11.9 Type 2 diabetes mellitus without complications; E03.9 Hypothyroidism, unspecified; J45.909 Unspecified asthma, uncomplicated; Z86.73 Personal history of transient ischemic attack (TIA), and cerebral infarction without residual deficits; Z79.02 Long term (current) use of antithrombotics/antiplatelets; Z87.891 Personal history of nicotine dependence; Z88.8 Allergy status to other drugs, medicaments and biological substances; Z88.0 Allergy status to penicillin; Z79.1 Long term (current) use of non-steroidal anti-inflammatories (NSAID); Z79.899 Other long term (current) drug therapy
CPT/HCPCS: 66984; V2632; J2250; J3490 ×2; A9270; J0171; 142

== ENCOUNTER 2017-04-09 15:13 | Inpatient (IN) | payer MEDICARE, OTHER ==
[2017-04-09] MEDS ORDERED: PROMETHAZINE HCL 25 MG TABLET PO ONE (16:12)
[2017-04-09] MEDS ORDERED: OXYCODONE-ACETAMINOPHEN 5-325 MG TABLET PO ONE (16:12)
--- NOTE | 2017-04-09 16:38 | ER Document Report ---
ED Fall - General Chief Complaint: Low Back Pain Stated Complaint: BACK PAIN Time Seen by Provider: 04/09/17 15:56 Notes: Patient says she began to feel lightheaded and dizzy and collapsed on the bathroom floor yesterday morning. She was unable to get up and family members helped her to bed. Patient has a history of having her right hip replaced about a year and a half ago when she walks with a walker normally. It does not fit into the bathroom so she has to hold onto things as she goes into the bathroom. She is complaining of severe pain in the right hip region and is unable to stand or bear weight or allow that area to be moved. Patient says she has been experiencing episodes of low blood pressure for the past 6-8 months. She has been told by Dr. Brooke, local skilled laborer, that her iron level is low and she was actually scheduled for a transfusion of iron at his office this morning, but unfortunately missed it. Says her left wrist hurts slightly when she can move all around and it is not swollen or deformed in any way. Patient denies head injury or neck injury or pain or any neurologic deficits. Denies any chest pains, abdominal pains, or other pains been already mentioned. History of' lumbar spinal fusion 8 years ago. Denies any recent illness, fever, etc. TRAVEL OUTSIDE OF THE [place] IN LAST 30 DAYS: No - Related data Allergies/Adverse Reactions: irbesartan [From Avapro] Allergy (Severe, Verified 04/05/17 11:02) swelling of face nitrofurantoin macrocrystalline [From Macrobid] Allergy (Severe, Verified 11:02) Generalized edema Penicillins Allergy (Severe, Verified 04/05/17 11:02) eyes swelled pregabalin [From Lyrica] Allergy (Severe, Verified 04/05/17 11:02) Equilibrium Issues venom-honey bee [bee venom (honey bee)] Allergy (Verified 04/05/17 11:02) Anaphylaxis Past Medical History - Social History Smoking Status: Former Smoker - Stopped 4 years ago. Chew tobacco use (# tins/day): No Frequency of alcohol use: None Drug Abuse: None Family History: Arthritis, COPD, Hyperlipidemia, Hypertension, Malignancy, Thyroid Disfunction - Past Medical History Cardiac Medical History: Reports: Hx Congestive Heart Failure, Hx Coronary Artery Disease, Hx DVT, Hx Hypercholesterolemia, Hx Hypertension, Hx Pulmonary Embolism Pulmonary Medical History: Reports: Hx Bronchitis, Hx COPD Endocrine Medical History: Reports: Hx Hypothyroidism Renal/ Medical History: Reports: Hx Ovarian Cysts Malignancy Medical History: Reports: Hx Cervical Cancer, Hx Ovarian Cancer GI Medical History: Reports: Hx Gastroesophageal Reflux Disease, Hx Hiatal Hernia - Repaired, Hx Irritable Bowel, Hx Colonoscopy, Hx Endoscopy Musculoskeltal Medical History: Reports Hx Arthritis - Lupus, Reports Hx Fibromyalgia - Lupus, Reports Hx Musculoskeletal Deformity, Reports Hx Musculoskeletal Trauma Skin Medical History: Reports Hx Cellulitis - Recently treated, right breast Psychiatric Medical History: Reports: Hx Anxiety, Hx Depression Traumatic Medical History: Reports: Hx Fractures - Knee and hip Infectious Medical History: Reports: Hx C-Diff - Was negative in October2015. Not yet successfully collected stool Past Surgical History: Reports: Hx Appendectomy, Hx Bowel Surgery - Polyps, adhesions, Hx Cardiac Catheterization, Hx Cardiac Surgery - 2 stents 2014, Hx Section, Hx Cholecystectomy, Hx Coronary Stent - 3 stents, Hx Herniorrhaphy, Hx Hysterectomy, Hx Orthopedic Surgery - Right knee, bilateral knee replacements and hip replacement metal plate in, Hx Tonsillectomy - Immunizations Immunizations up to date: Yes Hx Pneumococcal Vaccination: 05/20/11 Review of Systems - Review of Systems Notes: REVIEW OF SYSTEMS: CONSTITUTIONAL : Denies fever. EENT: Denies eye, ear, nose or mouth or throat pain or other symptoms. CARDIOVASCULAR: Denies chest pain. RESPIRATORY: Denies cough, chest congestion, or shortness of breath. GASTROINTESTINAL: Denies abdominal pain or nausea, vomiting, or diarrhea. GENITOURINARY: Denies difficulty or painful urinating, urinary frequency, blood in urine. MUSCULOSKELETAL: See HPI. SKIN: Denies rash or skin lesions. NEUROLOGICAL: Denies LOC or altered mental status. Denies headache. Denies sensory loss or motor deficits. ALL OTHER SYSTEMS REVIEWED AND NEGATIVE. Physical Exam - Vital signs Vitals: Temp Pulse Resp BP Pulse Ox 99.4 F 84 18 129/58 H 94 04/09/17 15:21 04/09/17 15:21 04/09/17 15:21 04/09/17 15:21 04/09/17 15:21 Interpretation: Normal, Hypotensive - Notes Notes: PHYSICAL EXAMINATION: Vital signs are all normal with the exception of her blood pressure initially of 90/70. Does not appear shocky. GENERAL: Well-appearing, in no acute distress. HEAD: Atraumatic, normocephalic. EYES: Pupils equal round and reactive to light, extraocular movements intact. ENT: oropharynx clear without exudates. Moist mucous membranes. NECK: Normal range of motion, supple. LUNGS: Breath sounds clear and equal bilaterally. HEART: Regular rate and rhythm without murmurs. ABDOMEN: Soft, nontender. No guarding or rebound. BACK: No tenderness throughout entire back. EXTREMITIES: Patient is tender in the right hip region and does not allow that joint to be moved due to pain. All other extremities with normal range of motion without pain. NEUROLOGICAL: Normal speech, normal gait. Normal sensory, motor, and reflex exams. Awake, alert, and oriented x3. Cranial nerves normal. PSYCH: Normal mood, normal affect. SKIN: Warm, dry, no rashes. Course - Re-evaluation Re-evalutation: 04/09/17 19:43 After obtaining all the patient's lab results, I called Dr. Muñoz, her primary care provider, to admit her to treat her hyponatremia and her apparent UTI. I started the first dose of Cipro 400 mg IV. Saline IV started. Admission to telemetry. 04/09/17 19:55 Patient says this low sodium and UTIs are very common for her. - Vital Signs Vital signs: Temp Pulse Resp BP Pulse Ox 99.4 F 84 18 129/58 H 94 04/09/17 15:21 04/09/17 15:21 04/09/17 15:21 04/09/17 15:21 04/09/17 15:21 - Laboratory Result Diagrams: 04/09/17 18:11 04/09/17 18:11 Laboratory results interpreted by me: 04/09/17 04/09/17 04/09/17 18:11 18:11 18:20 Hgb 11.7 L Hct 32.5 L MCV 79 L RDW 14.7 H Seg Neutrophils % 81.1 H Lymphocytes % 10.2 L Sodium 127.8 L Potassium 3.5 L Chloride 91 L Est GFR (Non-Af Amer) 54 L Alkaline Phosphatase 160 H Urine Blood SMALL H Ur Leukocyte Esterase LARGE H Discharge - Discharge Clinical Impression: Hyponatremia Urinary tract infection Qualifiers: Urinary tract infection type: site unspecified Hematuria presence: without hematuria Qualified Code(s): N39.0 - Urinary tract infection, site not specified Syncope Qualifiers: Syncope type: unspecified Qualified Code(s): R55 - Syncope and collapse Contusion of right hip Qualifiers: Encounter type: initial encounter Qualified Code(s): S70.01XA - Contusion of right hip, initial encounter Disposition: ADMITTED INPATIENT Admitting Provider: [facility] Unit Admitted: Telemetry Referrals: IAN MUÑOZ MD [Primary Care Provider] - Follow up as needed
--- NOTE | 2017-04-09 16:58 | RADIOLOGY REPORT (SQ) ---
EXAM DESCRIPTION: HIP RIGHT AP/LATERAL COMPLETED DATE/TIME: 04/09/2017 4:46 pm REASON FOR STUDY: Fell on right hip, now cannot walk COMPARISON: CT dated 08/29/2016. NUMBER OF VIEWS: Two views. TECHNIQUE: AP pelvis and additional frog-leg view of the right hip. LIMITATIONS: None. FINDINGS: MINERALIZATION: Normal. RIGHT HIP: No fracture or dislocation. Intact prosthesis. No worrisome bone lesions. LEFT HIP: No fracture or dislocation. No worrisome bone lesions. PUBIS AND ISCHIUM: No fracture. PELVIS: No fracture. SACRUM: No fracture or dislocation. No worrisome bone lesions. LOWER LUMBAR SPINE: No fracture or dislocation. No worrisome bone lesions. Surgical changes with sammy dware and stimulator electrodes. SOFT TISSUES: No findings. OTHER: No other significant finding. IMPRESSION: INTACT RIGHT HIP PROSTHESIS. NO ACUTE FINDINGS. TECHNICAL DOCUMENTATION: JOB ID: [id number] [employer]+- All Rights Reserved
[2017-04-09 18:31] LABS: ABSOLUTE EOSINOPHILS # (AUTO) 0.1 10^3/uL (0.0-0.6); ABSOLUTE MONOCYTES (AUTO) 0.8 10^3/uL (0.1-1.4); ABSOLUTE NEUT (AUTO) 7.9 10^3/uL (1.7-8.2); BASOPHILS % (AUTO) 0.3 % (0-2); EOSINOPHILS % (AUTO) 0.7 % (0-6); HEMATOCRIT 32.5 % (36.0-47.0); HEMOGLOBIN 11.7 g/dL (12.0-15.5); HGB HCT DIFFERENCE 2.6; LYMPHOCYTES % (AUTO) 10.2 % (13-45); MEAN CORPUSCULAR HEMOGLOBIN 28.3 pg (27.0-33.4); MEAN CORPUSCULAR HGB CONC 35.9 g/dL (32.0-36.0); MEAN CORPUSCULAR VOLUME 79 fl (80-97); MONOCYTES % (AUTO) 7.7 % (3-13); RED BLOOD COUNT 4.13 10^6/uL (3.72-5.28); RED CELL DISTRIBUTION WIDTH 14.7 % (11.5-14.0); SEGMENTED NEUTROPHILS % (AUTO) 81.1 % (42-78); WHITE BLOOD COUNT 9.8 10^3/uL (4.0-10.5)
[2017-04-09 18:51] LABS: ALANINE AMINOTRANSFERASE 25 U/L (9-52); ALBUMIN 3.8 g/dL (3.5-5.0); ALKALINE PHOSPHATASE 160 U/L (38-126); ANION GAP 15 (5-19); ASPARTATE AMINO TRANSFERASE 16 U/L (14-36); BILIRUBIN,DIRECT 0.4 mg/dL (0.0-0.4); BILIRUBIN,TOTAL 0.9 mg/dL (0.2-1.3); BLOOD UREA NITROGEN 13 mg/dL (7-20); CALCIUM 8.8 mg/dL (8.4-10.2); CARBON DIOXIDE 22 mmol/L (22-30); CHLORIDE 91 mmol/L (98-107); CREATINE KINASE 30 U/L (30-135); CREATININE RESULT 1.04 mg/dL (0.52-1.25); GLUCOSE 88 mg/dL (75-110); POTASSIUM 3.5 mmol/L (3.6-5.0); SODIUM 127.8 mmol/L (137-145); TOTAL PROTEIN 6.4 g/dL (6.3-8.2)
[2017-04-09 19:01] LABS: CREATINE KINASE MB 0.45 ng/mL (<4.55)
[2017-04-09 19:02] LABS: TROPONIN I < 0.012 ng/mL
[2017-04-09 19:03] LABS: APPEARANCE,URINE CLOUDY; BILIRUBIN,URINE NEGATIVE (NEGATIVE); GLUCOSE, URINE NEGATIVE (NEGATIVE); KETONES,URINE NEGATIVE (NEGATIVE); LEUKOCYTE ESTERASE,URINE LARGE (NEGATIVE); NITRITE,URINE NEGATIVE (NEGATIVE); PROTEIN,URINE NEGATIVE (NEGATIVE); URINE SPECIFIC GRAVITY 1.006; UROBILINOGEN,URINE NEGATIVE mg/dL (<2.0)
[2017-04-09] MEDS ORDERED: CIPROFLOXACIN 400 MG/D5W RTU 200 ML IV ONE (19:29)
[2017-04-09] MEDS ORDERED: NORMAL SALINE 1000 ML 1,000 ML IV ONE (19:30)
--- NOTE | 2017-04-09 20:32 | EKG REPORT ---
SEVERITY:- NORMAL ECG - SINUS RHYTHM : Confirmed by: Juan Manuel Clarke MD 09-Apr-2017 20:32:27
[2017-04-09] MEDS ORDERED: CARVEDILOL PHOSPHATE 40 MG PO SCH (21:15)
[2017-04-09] MEDS ORDERED: CYANOCOBALAMIN IM SCH (21:15)
[2017-04-09] MEDS ORDERED: (PENDING PHARMACY ID) (Losartan/Hydrochlorothiazide [Hyzaar 100-25 Tablet] 1 TAB) PO SCH (21:15)
[2017-04-09 21:41] LABS: HEMATOCRIT 32.9 % (36.0-47.0); HEMOGLOBIN 11.6 g/dL (12.0-15.5); HGB HCT DIFFERENCE 1.9; MEAN CORPUSCULAR HEMOGLOBIN 28.4 pg (27.0-33.4); MEAN CORPUSCULAR HGB CONC 35.3 g/dL (32.0-36.0); MEAN CORPUSCULAR VOLUME 80 fl (80-97); RED CELL DISTRIBUTION WIDTH 14.2 % (11.5-14.0)
[2017-04-09] MEDS ORDERED: HYDROCODONE BITARTRATE 40 MG PO SCH (22:00)
[2017-04-09 22:03] LABS: PROTHROMBIN TIME 14.2 SEC (11.4-15.4)
[2017-04-09 22:04] LABS: PARTIAL THROMBOPLASTIN TIME 48.1 SEC (23.5-35.8)
[2017-04-09 22:09] LABS: CREATININE RESULT 1.02 mg/dL (0.52-1.25)
[2017-04-09] MEDS: HYDROCODONE/ACETAMINOPHEN 10-325 MG TABLET PO SCH ×2 (23:33→23:39)
[2017-04-09] MEDS: GABAPENTIN 300 MG CAPSULE PO SCH (23:41)
[2017-04-09] MEDS: ATORVASTATIN CALCIUM 10 MG TABLET PO SCH (23:42)
[2017-04-09] MEDS: CARVEDILOL 12.5 MG TABLET PO SCH (23:43)
[2017-04-10] MEDS: CIPROFLOXACIN 400 MG/D5W RTU 200 ML IV SCH ×3 (00:55→21:29)
[2017-04-10] MEDS: HYDROCODONE/ACETAMINOPHEN 10-325 MG TABLET PO SCH (05:03)
[2017-04-10] MEDS: GABAPENTIN 300 MG CAPSULE PO SCH ×3 (05:03→21:16)
[2017-04-10] MEDS: LEVOTHYROXINE SODIUM 0.1 MG TABLET PO SCH (08:18)
[2017-04-10] MEDS: ENOXAPARIN SODIUM INJ 40 MG/0.4 ML DISP.SYRIN SUBCUT SCH (10:49)
[2017-04-10] MEDS: HYDROCHLOROTHIAZIDE 25 MG TABLET PO SCH (11:01)
[2017-04-10] MEDS: CARVEDILOL 12.5 MG TABLET PO SCH (11:02)
[2017-04-10] MEDS: ASPIRIN 325 MG TABLET PO SCH (11:03)
[2017-04-10] MEDS: LOSARTAN POTASSIUM 50 MG TABLET PO SCH (11:04)
[2017-04-10] MEDS: LUBIPROSTONE 24 MCG CAPSULE PO SCH ×2 (11:06→18:22)
[2017-04-10] MEDS: HYDROCODONE/ACETAMINOPHEN 10-325 MG TABLET PO PRN ×3 (11:46→20:38)
[2017-04-10] MEDS: NORMAL SALINE 1000 ML 1,000 ML IV PRN (18:49)
[2017-04-10] MEDS: ATORVASTATIN CALCIUM 10 MG TABLET PO SCH (21:16)
--- NOTE | 2017-04-10 21:18 | PDOC H&P ---
History of Present Illness Admission Date/PCP: 04/09/17 23:30 IAN MUÑOZ MD History of Present Illness: VALENTE MUNOZ is a 61 year old female,She is well-known to me she has multiple comorbid conditions including syndrome of inappropriate secretion of ADH, SIADH, coronary artery disease, recurrent urinary tract infection due to self catheterization, systemic lupus erythematosus, she was brought to the emergency room because of an apparent fall. The history was that she fell at home and she sustained injury to her right hip area, she could not get out of the floor because of the pain to the right hip area, in the emergency room she was evaluated she was found to have hyponatremia with a sodium of 127 and also abnormal urine dipstick, does suggest UTI because of these findings the emergency room physician wants patient admitted to the hospital for management. History of hyponatremia is chronic in this patient it is due to SIADH she was treated in the past with tolvaptan, she may have to resume this medication again the issue previously was cost, the insurance was not wanting to pay for the drug. Past Medical History Cardiac Medical History: Reports: Coronary Artery Disease Denies: Myocardial Infarction Pulmonary Medical History: Reports: Bronchitis, Chronic Obstructive Pulmonary Disease (COPD) Denies: Asthma Endocrine Medical History: Reports: Hypothyroidism Malignancy Medical History: Reports: Cervical Cancer GI Medical History: Reports: Gastroesophageal Reflux Disease, Hiatal Hernia - Repaired Musculoskeltal Medical History: Reports: Arthritis - Lupus, Fibromyalgia - Lupus Psychiatric Medical History: Reports: Depression Hematology: Reports: Anemia Denies: Sickle Cell Disease Infectious Medical History: Reports: Clostridium Difficile - Was negative in October2015. Not yet successfully collected stool Past Surgical History Past Surgical History: Reports: Appendectomy, Cardiac Catheterization, Section, Cholecystectomy, Coronary Stent - 3 stents, Herniorrhaphy, Hysterectomy , Orthopedic Surgery - Right knee, bilateral knee replacements and hip replacement metal plate in, Tonsillectomy Social History Smoking Status: Former Smoker Number of Years Smokin Last Time Smoked: 2012 Frequency of Alcohol Use: None Hx Recreational Drug Use: No Drugs: None Hx Prescription Drug Abuse: No - Advance Directive Resuscitation Status: Full Code Family History Family History: Arthritis, COPD, Hyperlipidemia, Hypertension, Malignancy, Thyroid Disfunction Parental Family History Reviewed: Yes Children Family History Reviewed: Yes Sibling(s) Family History Reviewed.: Yes Medication/Allergy Home Medications: Aspirin [Aspirin 325 mg Tablet] 325 mg PO DAILY 04/09/17 Atorvastatin Calcium [Lipitor 10 mg Tablet] 10 mg PO QHS 04/09/17 Carvedilol Phosphate [Coreg CR 40 mg Ext. Release Capsule] 40 mg PO DAILY Clopidogrel Bisulfate [Plavix 75 mg Tablet] 75 mg PO DAILY 04/09/17 Cyanocobalamin (Vitamin B-12) [Vitamin B-12] 1 ml IM [id number] 04/09/17 Cyclobenzaprine HCl [Flexeril 10 mg Tablet] 10 mg PO Q8 04/09/17 Gabapentin [Neurontin] 600 mg PO Q8 04/09/17 Hydrocodone Bitartrate [Zohydro ER] 40 mg PO Q12 04/09/17 Hydrocodone/Acetaminophen [[place] 10-325 Tablet] 1 tab PO Q6 04/09/17 Hydroxychloroquine Sulfate [Plaquenil 200 mg Tablet] 200 mg PO BID 04/09/17 Levothyroxine Sodium [Synthroid 0.1 mg Tablet] 0.1 mg PO QAM 04/09/17 Loratadine [Claritin 10 mg Tablet] 10 mg PO DAILY 04/09/17 Losartan/Hydrochlorothiazide [Hyzaar 100-25 Tablet] 1 tab PO DAILY 04/09/17 Lubiprostone [Amitiza 24 Mcg Capsule] 24 mcg PO BID 04/09/17 Promethazine HCl [Phenergan 25 mg Tablet] 25 mg PO Q8HP PRN 04/09/17 Allergies/Adverse Reactions: irbesartan [From Avapro] Allergy (Severe, Verified 04/05/17 11:02) swelling of face nitrofurantoin macrocrystalline [From Macrobid] Allergy (Severe, Verified 11:02) Generalized edema Penicillins Allergy (Severe, Verified 04/05/17 11:02) eyes swelled pregabalin [From Lyrica] Allergy (Severe, Verified 04/05/17 11:02) Equilibrium Issues venom-honey bee [bee venom (honey bee)] Allergy (Verified 04/05/17 11:02) Anaphylaxis Review of Systems Constitutional: ABSENT: chills, fever(s), headache(s), weight gain, weight loss Eyes: ABSENT: visual disturbances Ears: ABSENT: hearing changes Cardiovascular: ABSENT: chest pain, dyspnea on exertion, edema, orthropnea, palpitations Respiratory: ABSENT: cough, hemoptysis Gastrointestinal: ABSENT: abdominal pain, constipation, diarrhea, hematemesis, hematochezia, nausea, vomiting Genitourinary: ABSENT: dysuria, hematuria Musculoskeletal: PRESENT: back pain, joint swelling Integumentary: ABSENT: rash, wounds Neurological: ABSENT: abnormal gait, abnormal speech, confusion, dizziness, focal weakness, syncope Psychiatric: ABSENT: anxiety, depression, homidical ideation, suicidal ideation Endocrine: ABSENT: cold intolerance, heat intolerance, menstrual abnormalities, polydipsia, polyuria Hematologic/Lymphatic: ABSENT: easy bleeding, easy bruising, lymphadenopathy Physical Exam Vital Signs: Temp Pulse Resp BP Pulse Ox 98.4 F 79 18 107/58 L 94 04/10/17 19:00 04/10/17 19:00 04/10/17 19:00 04/10/17 19:00 04/10/17 19:00 Intake & Output 04/09/17 04/10/17 04/11/17 06:59 06:59 06:59 Intake Total 500 1360 Output Total 500 Balance 500 860 General appearance: PRESENT: no acute distress, well-developed, well-nourished Head exam: PRESENT: atraumatic, normocephalic Eye exam: PRESENT: conjunctiva pink, EOMI, PERRLA Ear exam: PRESENT: normal external ear exam Mouth exam: PRESENT: moist, tongue midline Neck exam: PRESENT: full ROM Respiratory exam: PRESENT: clear to auscultation martínez Cardiovascular exam: PRESENT: RRR, +S1, +S2 Pulses: PRESENT: normal dorsalis pedis pul, +2 pedal pulses bilateral Vascular exam: PRESENT: normal capillary refill GI/Abdominal exam: PRESENT: normal bowel sounds, soft Rectal exam: PRESENT: deferred Extremities exam: PRESENT: tenderness - There is tenderness in the right hip area Neurological exam: PRESENT: alert, awake, oriented to person, oriented to place , oriented to time, oriented to situation, CN II-XII grossly intact Psychiatric exam: PRESENT: appropriate affect, normal mood Skin exam: PRESENT: dry, intact, warm. ABSENT: cyanosis, rash Results Impressions: Hip/Pelvis X-Ray 04/09/17 16:13 IMPRESSION: INTACT RIGHT HIP PROSTHESIS. NO ACUTE FINDINGS. Assessment & Plan - Diagnosis (1) UTI (urinary tract infection) Qualifiers: Urinary tract infection type: site unspecified Hematuria presence: without hematuria Qualified Code(s): N39.0 - Urinary tract infection, site not specified Is this a current diagnosis for this admission?: YesPlan: Patient is admitted for management, she is treated with IV antibiotic (2) Hyponatremia Is this a current diagnosis for this admission?: Yes
--- NOTE | 2017-04-10 21:22 | PDOC PROGRESS REPORT ---
Subjective Progress Note for:: 04/10/17 Subjective:: She was admitted yesterday for the management of UTI, hyponatremia, she was seen by the bedside, she feels much better she wants to go home, she probably will be discharge home tomorrow Physical Exam Vital Signs: Temp Pulse Resp BP Pulse Ox 98.4 F 79 18 107/58 L 94 04/10/17 19:00 04/10/17 19:00 04/10/17 19:00 04/10/17 19:00 04/10/17 19:00 Intake & Output 04/09/17 04/10/17 04/11/17 06:59 06:59 06:59 Intake Total 500 1360 Output Total 500 Balance 500 860 General appearance: PRESENT: no acute distress Eye exam: PRESENT: PERRLA Respiratory exam: PRESENT: clear to auscultation martínez Cardiovascular exam: PRESENT: +S1, +S2 GI/Abdominal exam: PRESENT: soft Neurological exam: PRESENT: alert Results Impressions: Hip/Pelvis X-Ray 04/09/17 16:13 IMPRESSION: INTACT RIGHT HIP PROSTHESIS. NO ACUTE FINDINGS. Assessment & Plan - Diagnosis (1) UTI (urinary tract infection) Qualifiers: Urinary tract infection type: site unspecified Hematuria presence: without hematuria Qualified Code(s): N39.0 - Urinary tract infection, site not specified Is this a current diagnosis for this admission?: Yes (2) Hyponatremia Is this a current diagnosis for this admission?: Yes
[2017-04-10] MEDS: HYDROXYCHLOROQUINE SULFATE 200 MG TABLET PO SCH (21:29)
[2017-04-10 21:30] LABS: ABSOLUTE EOSINOPHILS # (AUTO) 0.2 10^3/uL (0.0-0.6); ABSOLUTE LYMPHOCYTES (AUTO) 1.5 10^3/uL (0.5-4.7); ABSOLUTE NEUT (AUTO) 5.2 10^3/uL (1.7-8.2); BASOPHILS % (AUTO) 0.3 % (0-2); EOSINOPHILS % (AUTO) 2.5 % (0-6); HEMATOCRIT 31.1 % (36.0-47.0); HEMOGLOBIN 10.9 g/dL (12.0-15.5); HGB HCT DIFFERENCE 1.6; LYMPHOCYTES % (AUTO) 18.9 % (13-45); MEAN CORPUSCULAR HGB CONC 35.2 g/dL (32.0-36.0); MEAN CORPUSCULAR VOLUME 80 fl (80-97); MONOCYTES % (AUTO) 12.5 % (3-13); RED BLOOD COUNT 3.91 10^6/uL (3.72-5.28); RED CELL DISTRIBUTION WIDTH 14.8 % (11.5-14.0); SEGMENTED NEUTROPHILS % (AUTO) 65.8 % (42-78); WHITE BLOOD COUNT 7.8 10^3/uL (4.0-10.5)
[2017-04-10 21:53] LABS: ALANINE AMINOTRANSFERASE 21 U/L (9-52); ALBUMIN 3.3 g/dL (3.5-5.0); ALKALINE PHOSPHATASE 141 U/L (38-126); ANION GAP 11 (5-19); ASPARTATE AMINO TRANSFERASE 15 U/L (14-36); BILIRUBIN,DIRECT 0.3 mg/dL (0.0-0.4); BILIRUBIN,TOTAL 0.6 mg/dL (0.2-1.3); BLOOD UREA NITROGEN 19 mg/dL (7-20); CALCIUM 8.2 mg/dL (8.4-10.2); CARBON DIOXIDE 24 mmol/L (22-30); CHLORIDE 93 mmol/L (98-107); CREATININE RESULT 1.13 mg/dL (0.52-1.25); GLUCOSE 94 mg/dL (75-110); POTASSIUM 3.2 mmol/L (3.6-5.0); SODIUM 128.3 mmol/L (137-145); TOTAL PROTEIN 5.8 g/dL (6.3-8.2)
[2017-04-11] MEDS: CARVEDILOL 12.5 MG TABLET PO SCH ×2 (00:06→09:50)
[2017-04-11] MEDS: HYDROCODONE/ACETAMINOPHEN 10-325 MG TABLET PO PRN ×6 (02:11→23:46)
[2017-04-11] MEDS: GABAPENTIN 300 MG CAPSULE PO SCH ×3 (06:51→22:05)
[2017-04-11 07:09] LABS: ABSOLUTE EOSINOPHILS # (AUTO) 0.2 10^3/uL (0.0-0.6); ABSOLUTE LYMPHOCYTES (AUTO) 1.4 10^3/uL (0.5-4.7); ABSOLUTE MONOCYTES (AUTO) 0.7 10^3/uL (0.1-1.4); BASOPHILS % (AUTO) 0.3 % (0-2); EOSINOPHILS % (AUTO) 2.9 % (0-6); HEMATOCRIT 30.4 % (36.0-47.0); HEMOGLOBIN 10.8 g/dL (12.0-15.5); LYMPHOCYTES % (AUTO) 21.7 % (13-45); MEAN CORPUSCULAR HEMOGLOBIN 28.2 pg (27.0-33.4); MEAN CORPUSCULAR HGB CONC 35.6 g/dL (32.0-36.0); MEAN CORPUSCULAR VOLUME 79 fl (80-97); MONOCYTES % (AUTO) 11.1 % (3-13); RED BLOOD COUNT 3.84 10^6/uL (3.72-5.28); RED CELL DISTRIBUTION WIDTH 14.8 % (11.5-14.0); WHITE BLOOD COUNT 6.3 10^3/uL (4.0-10.5)
[2017-04-11 07:27] LABS: ALANINE AMINOTRANSFERASE 22 U/L (9-52); ALBUMIN 3.2 g/dL (3.5-5.0); ALKALINE PHOSPHATASE 135 U/L (38-126); ANION GAP 11 (5-19); ASPARTATE AMINO TRANSFERASE 16 U/L (14-36); BILIRUBIN,DIRECT 0.3 mg/dL (0.0-0.4); BILIRUBIN,TOTAL 0.5 mg/dL (0.2-1.3); BLOOD UREA NITROGEN 15 mg/dL (7-20); CALCIUM 8.4 mg/dL (8.4-10.2); CARBON DIOXIDE 25 mmol/L (22-30); CHLORIDE 95 mmol/L (98-107); CREATININE RESULT 0.99 mg/dL (0.52-1.25); GLUCOSE 86 mg/dL (75-110); POTASSIUM 3.3 mmol/L (3.6-5.0); SODIUM 131.4 mmol/L (137-145); TOTAL PROTEIN 5.8 g/dL (6.3-8.2)
[2017-04-11] MEDS: LEVOTHYROXINE SODIUM 0.1 MG TABLET PO SCH (07:43)
[2017-04-11] MEDS: ENOXAPARIN SODIUM INJ 40 MG/0.4 ML DISP.SYRIN SUBCUT SCH (09:48)
[2017-04-11] MEDS: LUBIPROSTONE 24 MCG CAPSULE PO SCH ×2 (09:48→17:39)
[2017-04-11] MEDS: CIPROFLOXACIN 400 MG/D5W RTU 200 ML IV SCH (09:48)
[2017-04-11] MEDS: LOSARTAN POTASSIUM 50 MG TABLET PO SCH (09:49)
[2017-04-11] MEDS: ASPIRIN 325 MG TABLET PO SCH (09:49)
[2017-04-11] MEDS: HYDROCHLOROTHIAZIDE 25 MG TABLET PO SCH (09:50)
[2017-04-11] MEDS: HYDROXYCHLOROQUINE SULFATE 200 MG TABLET PO SCH ×2 (09:50→22:05)
[2017-04-11] MEDS ORDERED: POTASSIUM CHLORIDE 10 MEQ TABLET.SA PO ONE (13:15)
[2017-04-11] MEDS: NORMAL SALINE 1000 ML 1,000 ML IV PRN (15:26)
--- NOTE | 2017-04-11 18:00 | PDOC PROGRESS REPORT ---
Subjective Progress Note for:: 04/11/17 Subjective:: Patient was admitted for the management of UTI, electrolyte derangement including hyponatremia, hypokalemia. The potassium is still low Physical Exam Vital Signs: Temp Pulse Resp BP Pulse Ox 98.3 F 73 16 105/65 93 04/11/17 15:06 04/11/17 15:06 04/11/17 15:06 04/11/17 15:06 04/11/17 15:06 Intake & Output 04/10/17 04/11/17 04/12/17 06:59 06:59 06:59 Intake Total 500 2970 800 Output Total 1500 Balance 500 1470 800 Weight 86.9 kg General appearance: PRESENT: no acute distress Eye exam: PRESENT: PERRLA Respiratory exam: PRESENT: clear to auscultation martínez Cardiovascular exam: PRESENT: +S1 GI/Abdominal exam: PRESENT: soft Neurological exam: PRESENT: alert Results Laboratory Results: 04/11/17 06:45 04/11/17 06:45 04/10/17 04/10/17 04/11/17 21:05 21:05 06:45 WBC 7.8 6.3 RBC 3.91 3.84 Hgb 10.9 L 10.8 L Hct 31.1 L 30.4 L MCV 80 79 L MCH 28.0 28.2 MCHC 35.2 35.6 RDW 14.8 H 14.8 H Plt Count 221 229 Seg Neutrophils % 65.8 64.0 Lymphocytes % 18.9 21.7 Monocytes % 12.5 11.1 Eosinophils % 2.5 2.9 Basophils % 0.3 0.3 Absolute Neutrophils 5.2 4.0 Absolute Lymphocytes 1.5 1.4 Absolute Monocytes 1.0 0.7 Absolute Eosinophils 0.2 0.2 Absolute Basophils 0.0 0.0 Sodium 128.3 L Potassium 3.2 L Chloride 93 L Carbon Dioxide 24 Anion Gap 11 BUN 19 Creatinine 1.13 Est GFR ( Amer) 59 L Est GFR (Non-Af Amer) 49 L Glucose 94 Calcium 8.2 L Total Bilirubin 0.6 AST 15 ALT 21 Alkaline Phosphatase 141 H Total Protein 5.8 L Albumin 3.3 L 04/11/17 06:45 WBC RBC Hgb Hct MCV MCH MCHC RDW Plt Count Seg Neutrophils % Lymphocytes % Monocytes % Eosinophils % Basophils % Absolute Neutrophils Absolute Lymphocytes Absolute Monocytes Absolute Eosinophils Absolute Basophils Sodium 131.4 L Potassium 3.3 L Chloride 95 L Carbon Dioxide 25 Anion Gap 11 BUN 15 Creatinine 0.99 Est GFR ( Amer) > 60 Est GFR (Non-Af Amer) 57 L Glucose 86 Calcium 8.4 Total Bilirubin 0.5 AST 16 ALT 22 Alkaline Phosphatase 135 H Total Protein 5.8 L Albumin 3.2 L Impressions: Hip/Pelvis X-Ray 04/09/17 16:13 IMPRESSION: INTACT RIGHT HIP PROSTHESIS. NO ACUTE FINDINGS. Assessment & Plan - Diagnosis (1) UTI (urinary tract infection) Qualifiers: Urinary tract infection type: site unspecified Hematuria presence: without hematuria Qualified Code(s): N39.0 - Urinary tract infection, site not specified Is this a current diagnosis for this admission?: Yes (2) Hyponatremia Is this a current diagnosis for this admission?: Yes (3) Hypokalemia Is this a current diagnosis for this admission?: Yes - Plan Summary Plan Summary: Continue treatment
[2017-04-11] MEDS: CIPROFLOXACIN HCL 500 MG TABLET PO SCH (22:05)
[2017-04-11] MEDS: ATORVASTATIN CALCIUM 10 MG TABLET PO SCH (22:05)
[2017-04-12] MEDS: CARVEDILOL 12.5 MG TABLET PO SCH ×2 (00:43→10:24)
[2017-04-12] MEDS: GABAPENTIN 300 MG CAPSULE PO SCH ×2 (06:07→13:58)
[2017-04-12] MEDS: HYDROCODONE/ACETAMINOPHEN 10-325 MG TABLET PO PRN ×4 (06:07→18:57)
[2017-04-12] MEDS: LEVOTHYROXINE SODIUM 0.1 MG TABLET PO SCH (08:31)
[2017-04-12] MEDS ORDERED: POTASSIUM CHLORIDE 10 MEQ TABLET.SA PO SCH (10:00)
[2017-04-12] MEDS: ENOXAPARIN SODIUM INJ 40 MG/0.4 ML DISP.SYRIN SUBCUT SCH (10:20)
[2017-04-12] MEDS: LOSARTAN POTASSIUM 50 MG TABLET PO SCH (10:21)
[2017-04-12] MEDS: CIPROFLOXACIN HCL 500 MG TABLET PO SCH (10:24)
[2017-04-12] MEDS: ASPIRIN 325 MG TABLET PO SCH (10:24)
[2017-04-12] MEDS: HYDROCHLOROTHIAZIDE 25 MG TABLET PO SCH (10:25)
[2017-04-12] MEDS: HYDROXYCHLOROQUINE SULFATE 200 MG TABLET PO SCH (10:33)
[2017-04-12] MEDS: LUBIPROSTONE 24 MCG CAPSULE PO SCH ×2 (10:33→17:26)
[2017-04-12] MEDS: NORMAL SALINE 1000 ML 1,000 ML IV PRN (11:35)
--- NOTE | 2017-04-12 18:52 | PDOC DISCHARGE SUMMARY ---
General - Admit/Disc Date/PCP Admission Date/Primary Care Provider: 04/09/17 23:30 IAN MUÑOZ MD Discharge Date: 04/12/17 - Discharge Diagnosis (1) UTI (urinary tract infection) Is this a current diagnosis for this admission?: Yes (2) Hyponatremia Is this a current diagnosis for this admission?: Yes (3) Hypokalemia Is this a current diagnosis for this admission?: Yes (4) Urinary tract infection due to Klebsiella species Is this a current diagnosis for this admission?: Yes - Additional Information Resuscitation Status: Full Code Home Medications: Aspirin [Aspirin 325 mg Tablet] 325 mg PO DAILY 04/09/17 Atorvastatin Calcium [Lipitor 10 mg Tablet] 10 mg PO QHS 04/09/17 Carvedilol Phosphate [Coreg CR 40 mg Ext. Release Capsule] 40 mg PO DAILY Clopidogrel Bisulfate [Plavix 75 mg Tablet] 75 mg PO DAILY 04/09/17 Cyanocobalamin (Vitamin B-12) [Vitamin B-12] 1 ml IM [id number] 04/09/17 Cyclobenzaprine HCl [Flexeril 10 mg Tablet] 10 mg PO Q8 04/09/17 Gabapentin [Neurontin] 600 mg PO Q8 04/09/17 Hydrocodone Bitartrate [Zohydro ER] 40 mg PO Q12 04/09/17 Hydrocodone/Acetaminophen [[place] 10-325 Tablet] 1 tab PO Q6 04/09/17 Hydroxychloroquine Sulfate [Plaquenil 200 mg Tablet] 200 mg PO BID 04/09/17 Levothyroxine Sodium [Synthroid 0.1 mg Tablet] 0.1 mg PO QAM 04/09/17 Loratadine [Claritin 10 mg Tablet] 10 mg PO DAILY 04/09/17 Losartan/Hydrochlorothiazide [Hyzaar 100-25 Tablet] 1 tab PO DAILY 04/09/17 Lubiprostone [Amitiza 24 Mcg Capsule] 24 mcg PO BID 04/09/17 Promethazine HCl [Phenergan 25 mg Tablet] 25 mg PO Q8HP PRN 04/09/17 Ciprofloxacin HCl [Cipro 500 mg Tablet] 500 mg PO Q12 #14 tablet 04/12/17 History of Present Illness History of Present Illness: VALENTE Hassan TAMMY is a 61 year old female,She is well-known to me she has multiple comorbid conditions including syndrome of inappropriate secretion of ADH, SIADH, coronary artery disease, recurrent urinary tract infection due to self catheterization, systemic lupus erythematosus, she was brought to the emergency room because of an apparent fall. The history was that she fell at home and she sustained injury to her right hip area, she could not get out of the floor because of the pain to the right hip area, in the emergency room she was evaluated she was found to have hyponatremia with a sodium of 127 and also abnormal urine dipstick, does suggest UTI because of these findings the emergency room physician wants patient admitted to the hospital for management. History of hyponatremia is chronic in this patient it is due to SIADH she was treated in the past with tolvaptan, she may have to resume this medication again the issue previously was cost, the insurance was not wanting to pay for the drug. Hospital Course Hospital Course: Patient was admitted for the management of urinary tract infection, hyponatremia. The urinary tract infection was due to Klebsiella pansensitive to all antibiotic. She was treated successfully, she is much improved the plan is to discharge her home today. Physical Exam Vital Signs: Temp Pulse Resp BP Pulse Ox 98.1 F 73 17 126/61 H 99 04/12/17 15:43 04/12/17 15:43 04/12/17 15:43 04/12/17 15:43 04/12/17 15:43 Intake & Output 04/11/17 04/12/17 04/13/17 06:59 06:59 06:59 Intake Total 2970 3230 960 Output Total 1500 1100 1150 Balance 1470 2130 -190 Weight 86.9 kg General appearance: PRESENT: no acute distress Head exam: PRESENT: atraumatic Eye exam: PRESENT: PERRLA Neck exam: PRESENT: full ROM Respiratory exam: PRESENT: clear to auscultation martínez Cardiovascular exam: PRESENT: RRR, +S1, +S2 Vascular exam: PRESENT: normal capillary refill GI/Abdominal exam: PRESENT: normal bowel sounds, soft Rectal exam: PRESENT: deferred Neurological exam: PRESENT: alert, awake, oriented to person, oriented to place , oriented to time, oriented to situation, CN II-XII grossly intact Psychiatric exam: PRESENT: appropriate affect, normal mood Skin exam: PRESENT: dry, intact, warm Results Laboratory Results: 04/11/17 06:45 04/11/17 06:45 Impressions: Hip/Pelvis X-Ray 04/09/17 16:13 IMPRESSION: INTACT RIGHT HIP PROSTHESIS. NO ACUTE FINDINGS.
[2017-04-12 19:18] LABS: ANION GAP 11 (5-19); BLOOD UREA NITROGEN 14 mg/dL (7-20); CALCIUM 8.7 mg/dL (8.4-10.2); CARBON DIOXIDE 20 mmol/L (22-30); CHLORIDE 100 mmol/L (98-107); CREATININE RESULT 0.87 mg/dL (0.52-1.25); GLUCOSE 118 mg/dL (75-110); POTASSIUM 4.2 mmol/L (3.6-5.0); SODIUM 130.5 mmol/L (137-145)
[2017-04-12 20:22] VITALS: BP 132/56
== END 2017-04-12 20:56 | disposition home or self-care (01) | DRG 644 ==
LOC: ER 15:13 → EH 19:57 → UNDOADMIN 19:57 → 5 23:05 → EH 23:05 → 5 23:30
PROVIDERS: ADMIT Internal Medicine; ATTEND Internal Medicine
DX: E22.2 Syndrome of inappropriate secretion of antidiuretic hormone (principal); N39.0 Urinary tract infection, site not specified; E87.6 Hypokalemia; B96.1 Klebsiella pneumoniae [K. pneumoniae] as the cause of diseases classified elsewhere; I25.10 Atherosclerotic heart disease of native coronary artery without angina pectoris; M32.9 Systemic lupus erythematosus, unspecified; E03.9 Hypothyroidism, unspecified; K21.9 Gastro-esophageal reflux disease without esophagitis; M19.90 Unspecified osteoarthritis, unspecified site; Z90.49 Acquired absence of other specified parts of digestive tract; I11.0 Hypertensive heart disease with heart failure; Z95.5 Presence of coronary angioplasty implant and graft; I50.9 Heart failure, unspecified; F41.9 Anxiety disorder, unspecified; F32.9 Major depressive disorder, single episode, unspecified; S70.01XA Contusion of right hip, initial encounter; W18.30XA Fall on same level, unspecified, initial encounter; J44.9 Chronic obstructive pulmonary disease, unspecified; Y92.002 Bathroom of unspecified non-institutional (private) residence as the place of occurrence of the external cause; Z96.653 Presence of artificial knee joint, bilateral; M79.7 Fibromyalgia; D64.9 Anemia, unspecified; Z79.899 Other long term (current) drug therapy; Z88.0 Allergy status to penicillin; Z91.030 Bee allergy status; Z85.41 Personal history of malignant neoplasm of cervix uteri; Z79.1 Long term (current) use of non-steroidal anti-inflammatories (NSAID); Z90.710 Acquired absence of both cervix and uterus; Z96.641 Presence of right artificial hip joint; Z82.61 Family history of arthritis; Z82.49 Family history of ischemic heart disease and other diseases of the circulatory system; Z80.9 Family history of malignant neoplasm, unspecified; Z87.440 Personal history of urinary (tract) infections; Z83.49 Family history of other endocrine, nutritional and metabolic diseases; Z79.82 Long term (current) use of aspirin
CPT/HCPCS: 36415; 80048; 80053; 81001; 82550; 82553; 82565; 84484; 85025; 85027; 85610; 85730; 87040; 87086; 87088; 87186; 93005; 93010; 99285; G8978-GP; G8979-GP; G8980-GP; J0744; J1650; J3490; J7030

== ENCOUNTER 2017-10-05 18:19 | Inpatient (IN) | payer MEDICARE, OTHER ==
[2017-10-05] MEDS: HYDROMORPHONE HCL INJ/PF 2 MG/ML AMPULE IV PRN (20:39)
[2017-10-05] MEDS: NORMAL SALINE 1000 ML 1,000 ML IV PRN (20:40)
[2017-10-05 21:12] LABS: ABSOLUTE BASOPHILS # (AUTO) 0.1 10^3/uL (0.0-0.2); ABSOLUTE LYMPHOCYTES (AUTO) 2.2 10^3/uL (0.5-4.7); BASOPHILS % (AUTO) 0.4 % (0-2); EOSINOPHILS % (AUTO) 0.3 % (0-6); HEMATOCRIT 41.8 % (36.0-47.0); HEMOGLOBIN 14.6 g/dL (12.0-15.5); LYMPHOCYTES % (AUTO) 15.4 % (13-45); MEAN CORPUSCULAR HEMOGLOBIN 27.3 pg (27.0-33.4); MEAN CORPUSCULAR HGB CONC 34.9 g/dL (32.0-36.0); MEAN CORPUSCULAR VOLUME 78 fl (80-97); MONOCYTES % (AUTO) 6.7 % (3-13); PLATELET COUNT 367 10^3/uL (150-450); RED BLOOD COUNT 5.33 10^6/uL (3.72-5.28); SEGMENTED NEUTROPHILS % (AUTO) 77.2 % (42-78); TOTAL CELLS COUNTED % (AUTO) 100 %; WHITE BLOOD COUNT 14.3 10^3/uL (4.0-10.5)
[2017-10-05 21:26] LABS: ALANINE AMINOTRANSFERASE 30 U/L (9-52); ALBUMIN 4.4 g/dL (3.5-5.0); ALKALINE PHOSPHATASE 150 U/L (38-126); ANION GAP 13 (5-19); ASPARTATE AMINO TRANSFERASE 21 U/L (14-36); BILIRUBIN,DIRECT 0.3 mg/dL (0.0-0.4); BILIRUBIN,TOTAL 0.6 mg/dL (0.2-1.3); BLOOD UREA NITROGEN 14 mg/dL (7-20); CALCIUM 9.7 mg/dL (8.4-10.2); CARBON DIOXIDE 20 mmol/L (22-30); CHLORIDE 96 mmol/L (98-107); GLUCOSE 97 mg/dL (75-110); POTASSIUM 3.1 mmol/L (3.6-5.0); SODIUM 128.9 mmol/L (137-145); TOTAL PROTEIN 6.9 g/dL (6.3-8.2)
[2017-10-05] MEDS ORDERED: DIPHENOXYLATE HCL/ATROP SULF 2.5-0.025 MG TABLET PO PRN (21:33)
[2017-10-05] MEDS ORDERED: CYANOCOBALAMIN (VITAMIN B-12) INJ 1000 MCG/1 ML VIAL IM SCH (21:45)
[2017-10-05] MEDS ORDERED: (PENDING PHARMACY ID) (Losartan/Hydrochlorothiazide [Hyzaar 100-25 Tablet] 1 TAB) PO SCH (21:45)
[2017-10-05 21:51] LABS: APPEARANCE,URINE SLIGHTLY-CLOUDY; BILIRUBIN,URINE NEGATIVE (NEGATIVE); COLOR,URINE YELLOW; GLUCOSE, URINE NEGATIVE (NEGATIVE); KETONES,URINE NEGATIVE (NEGATIVE); LEUKOCYTE ESTERASE,URINE LARGE (NEGATIVE); NITRITE,URINE NEGATIVE (NEGATIVE); PROTEIN,URINE NEGATIVE (NEGATIVE); URINE SPECIFIC GRAVITY 1.013; UROBILINOGEN,URINE NEGATIVE mg/dL (<2.0)
[2017-10-05] MEDS ORDERED: HYDROCODONE BITARTRATE 40 MG PO SCH (22:00)
[2017-10-05] MEDS ORDERED: ASPIRIN 325 MG TABLET PO ONE (22:00)
[2017-10-05] MEDS: PROMETHAZINE HCL 25 MG TABLET PO PRN (22:23)
[2017-10-05] MEDS: GABAPENTIN 300 MG CAPSULE PO SCH (22:25)
[2017-10-05] MEDS: HYDROXYCHLOROQUINE SULFATE 200 MG TABLET PO SCH (22:25)
[2017-10-05] MEDS ORDERED: HYDROCHLOROTHIAZIDE 25 MG TABLET PO ONE (22:30)
[2017-10-05] MEDS ORDERED: LOSARTAN POTASSIUM 50 MG TABLET PO ONE (22:30)
[2017-10-05] MEDS: LORATADINE 10 MG TABLET PO SCH (22:31)
[2017-10-05] MEDS: ATORVASTATIN CALCIUM 40 MG TABLET PO SCH (22:31)
--- NOTE | 2017-10-05 23:00 | RADIOLOGY REPORT (SQ) ---
EXAM DESCRIPTION: CT ABD/PELVIS NO ORAL OR IV COMPLETED DATE/TIME: 10/05/2017 10:38 pm REASON FOR STUDY: intractable vomiting R19.7 DIARRHEA, UNSPECIFIED N39.0 URINARY TRACT INFECTION, SITE NOT SPECIFIED COMPARISON: 12/13/2015 TECHNIQUE: CT scan of the abdomen and pelvis performed without intravenous or oral contrast. Images reviewed with lung, soft tissue, and bone windows. Reconstructed coronal and sagittal MPR images revi ewed. All images stored on PACS. All CT scanners at this facility use dose modulation, iterative reconstruction, and/or weight based d osing when appropriate to reduce radiation dose to as low as reasonably achievable (ALARA). [facility]: Dose Right [facility]: CareDose [facility]: Dose Right [facility]: Teradose 4D [facility]: [employer] RADIATION DOSE: CT Rad equipment meets quality standard of care and radiation dose reduction techniq ues were employed. CTDIvol: 16.8 mGy. DLP: 824 mGy-cm.mGy. LIMITATIONS: None. FINDINGS: LOWER CHEST: No significant findings. No nodules or infiltrates. NON-CONTRASTED LIVER, SPLEEN, ADRENALS: Evaluation limited by lack of IV contrast. No identified sign ificant masses. PANCREAS: No masses. No peripancreatic inflammatory changes. GALLBLADDER: Surgically absent. RIGHT KIDNEY AND URETER: No suspicious masses. Assessment limited by lack of IV contrast. No signif icant calcifications. No hydronephrosis or hydroureter. LEFT KIDNEY AND URETER: No suspicious masses. Assessment limited by lack of IV contrast. No signifi cant calcifications. No hydronephrosis or hydroureter. AORTA AND RETROPERITONEUM: No aneurysm. No retroperitoneal masses or adenopathy. BOWEL AND PERITONEAL CAVITY: No obvious masses or inflammatory changes. No free fluid. APPENDIX: Normal. PELVIS, BLADDER, AND ABDOMINAL WALL:No abnormal masses. No free fluid. Bladder normal. BONES: No acute findings. OTHER: Postsurgical changes in lumbar spine and spinal nerve stimulator. Right total hip arthroplast y. Postsurgical changes in the lower anterior abdominal wall. IMPRESSION: NO ACUTE PROCESS IN THE ABDOMEN OR PELVIS. COMMENT: Quality ID # [id number]: Final reports with documentation of one or more dose reduction techniques (e.g., Automated exposure control, adjustment of the mA and/or kV according to patient size, use of iterative reconstruction technique) TECHNICAL DOCUMENTATION: JOB ID: [id number] 2010 [facility] [employer]- All Rights Reserved
[2017-10-06] MEDS: GABAPENTIN 300 MG CAPSULE PO SCH ×3 (05:01→21:00)
[2017-10-06] MEDS: LEVOTHYROXINE SODIUM 0.1 MG TABLET PO SCH (05:01)
[2017-10-06] MEDS: PROMETHAZINE HCL 25 MG TABLET PO PRN ×3 (05:02→17:43)
[2017-10-06] MEDS: HYDROMORPHONE HCL INJ/PF 2 MG/ML AMPULE IV PRN ×3 (07:42→17:43)
--- NOTE | 2017-10-06 08:27 | RADIOLOGY REPORT (SQ) ---
EXAM DESCRIPTION: CHEST SINGLE VIEW COMPLETED DATE/TIME: 10/05/2017 7:39 pm REASON FOR STUDY: Vomiting COMPARISON: 04/17/2017. NUMBER OF VIEWS: One view. TECHNIQUE: Single frontal radiographic view of the chest acquired. LIMITATIONS: None. FINDINGS: LUNGS AND PLEURA: No opacities, masses or pneumothorax. No pleural effusion. MEDIASTINUM AND HILAR STRUCTURES: No masses. Contour normal. HEART AND VASCULAR STRUCTURES: Heart normal in size. Normal vasculature. BONES: No acute findings. HARDWARE: Right subclavian central line, tip to the superior vena cava. Spinal leads project over th e lower mediastinum. OTHER: No abnormal gas in the limited view of the abdomen. IMPRESSION: NO SIGNIFICANT RADIOGRAPHIC FINDING IN THE CHEST. TECHNICAL DOCUMENTATION: JOB ID: [id number] [employer]- All Rights Reserved
[2017-10-06] MEDS: HYDROXYCHLOROQUINE SULFATE 200 MG TABLET PO SCH ×2 (09:32→21:00)
[2017-10-06] MEDS: ASPIRIN 325 MG TABLET PO SCH (09:32)
[2017-10-06] MEDS: LOSARTAN POTASSIUM 50 MG TABLET PO SCH (09:33)
[2017-10-06] MEDS: HYDROCHLOROTHIAZIDE 25 MG TABLET PO SCH (09:33)
[2017-10-06 15:42] LABS: ABSOLUTE EOSINOPHILS # (AUTO) 0.1 10^3/uL (0.0-0.6); ABSOLUTE LYMPHOCYTES (AUTO) 2.1 10^3/uL (0.5-4.7); ABSOLUTE MONOCYTES (AUTO) 0.9 10^3/uL (0.1-1.4); ABSOLUTE NEUT (AUTO) 6.1 10^3/uL (1.7-8.2); BASOPHILS % (AUTO) 0.4 % (0-2); EOSINOPHILS % (AUTO) 1.6 % (0-6); HEMATOCRIT 35.5 % (36.0-47.0); LYMPHOCYTES % (AUTO) 22.5 % (13-45); MEAN CORPUSCULAR HEMOGLOBIN 27.1 pg (27.0-33.4); MEAN CORPUSCULAR HGB CONC 34.3 g/dL (32.0-36.0); MEAN CORPUSCULAR VOLUME 79 fl (80-97); MONOCYTES % (AUTO) 9.4 % (3-13); PLATELET COUNT 288 10^3/uL (150-450); RED BLOOD COUNT 4.49 10^6/uL (3.72-5.28); RED CELL DISTRIBUTION WIDTH 13.8 % (11.5-14.0); SEGMENTED NEUTROPHILS % (AUTO) 66.1 % (42-78); TOTAL CELLS COUNTED % (AUTO) 100 %; WHITE BLOOD COUNT 9.2 10^3/uL (4.0-10.5)
[2017-10-06 15:48] LABS: HEMOGLOBIN 12.2 g/dL (12.0-15.5)
[2017-10-06 16:00] LABS: ALANINE AMINOTRANSFERASE 19 U/L (9-52); ALBUMIN 3.5 g/dL (3.5-5.0); ALKALINE PHOSPHATASE 108 U/L (38-126); ANION GAP 11 (5-19); ASPARTATE AMINO TRANSFERASE 20 U/L (14-36); BILIRUBIN,DIRECT 0.3 mg/dL (0.0-0.4); BILIRUBIN,TOTAL 0.3 mg/dL (0.2-1.3); BLOOD UREA NITROGEN 18 mg/dL (7-20); CALCIUM 8.1 mg/dL (8.4-10.2); CARBON DIOXIDE 24 mmol/L (22-30); CHLORIDE 97 mmol/L (98-107); GLUCOSE 106 mg/dL (75-110); SODIUM 131.9 mmol/L (137-145); TOTAL PROTEIN 5.8 g/dL (6.3-8.2)
[2017-10-06 16:09] LABS: POTASSIUM 2.7 mmol/L (3.6-5.0)
[2017-10-06] MEDS: NORMAL SALINE 1000 ML 1,000 ML IV PRN (17:11)
[2017-10-06] MEDS: POTASSIUM CHLORIDE 20 MEQ/50 ML RTU IV SCH ×2 (17:12→20:50)
--- NOTE | 2017-10-06 18:30 | PDOC H&P ---
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 She was just treated for UTI outpatient with p.o. ciprofloxacin, I do not know how much she kept because of the persistent vomiting Past Medical History Cardiac Medical History: Reports: Coronary Artery Disease, Myocardial Infarction , Pulmonary Embolism Denies: Atrial Fibrillation Pulmonary Medical History: Reports: Bronchitis, Chronic Obstructive Pulmonary Disease (COPD) Endocrine Medical History: Reports: Hypothyroidism Malignancy Medical History: Reports: Cervical Cancer, Ovarian Cancer GI Medical History: Reports: Gastroesophageal Reflux Disease, Hiatal Hernia - Repaired Denies: Crohn's Disease, Hepatitis Musculoskeltal Medical History: Reports: Arthritis - Lupus, Fibromyalgia - Lupus Psychiatric Medical History: Reports: Depression Hematology: Reports: Anemia - HX OF LOW NA AND K,LOW IRON WILL HAVE IRON TRANS FUSION 05/04. Infectious Medical History: Reports: Clostridium Difficile - Was negative in October2015. Not yet successfully collected stool Past Surgical History Past Surgical History: Reports: Appendectomy, Cardiac Catheterization, Section, Cholecystectomy, Coronary Stent - 3 stents, Herniorrhaphy, Hysterectomy , Orthopedic Surgery - Right knee, bilateral knee replacements and hip replacement metal plate in, Tonsillectomy Social History Smoking Status: Former Smoker Number of Years Smokin Frequency of Alcohol Use: None Hx Recreational Drug Use: No Drugs: None Hx Prescription Drug Abuse: No Family History Family History: Arthritis, COPD, Hyperlipidemia, Hypertension, Malignancy, Thyroid Disfunction Parental Family History Reviewed: Yes Children Family History Reviewed: Yes Sibling(s) Family History Reviewed.: Yes Medication/Allergy Home Medications: Apixaban [Eliquis 5 mg Tablet] 5 mg PO BID 10/05/17 Aspirin [Aspirin 325 mg Tablet] 325 mg PO DAILY 10/05/17 Atorvastatin Calcium [Lipitor 40 mg Tablet] 40 mg PO QHS 10/05/17 Clopidogrel Bisulfate [Plavix 75 mg Tablet] 75 mg PO DAILY 10/05/17 Cyanocobalamin (Vitamin B-12) [Vitamin B-12 Inj 1000 Mcg/1 ml Vial] 1,000 mcg IM .MONTHLY 10/05/17 Cyclobenzaprine HCl [Flexeril 10 mg Tablet] 10 mg PO TIDP PRN 10/05/17 Diphenoxylate HCl/Atropine [Lomotil Tablet] 1 each PO Q6HP PRN 10/05/17 Furosemide [Lasix 40 mg Tablet] 40 mg PO DAILY 10/05/17 Gabapentin [Neurontin] 600 mg PO Q8 10/05/17 Hydrocodone Bitartrate [Zohydro ER] 40 mg PO Q12 10/05/17 Hydrocodone/Acetaminophen [[place] 10-325 Tablet] 1 each PO Q6HP PRN 10/05/17 Hydroxychloroquine Sulfate [Plaquenil 200 mg Tablet] 200 mg PO BID 10/05/17 Levothyroxine Sodium [Synthroid 0.1 mg Tablet] 0.1 mg PO Q6AM 10/05/17 Loratadine [Claritin 10 mg Tablet] 10 mg PO DAILY 10/05/17 Losartan/Hydrochlorothiazide [Hyzaar 100-25 Tablet] 1 tab PO DAILY 10/05/17 Oxycodone HCl/Acetaminophen [Percocet 10-325 Mg Tablet] 1 each PO Q6HP PRN 10/05 Promethazine HCl [Phenergan 25 mg Tablet] 25 mg PO Q6HP PRN 10/05/17 Allergies/Adverse Reactions: irbesartan [From Avapro] Allergy (Severe, Verified 05/03/17 09:31) swelling of face nitrofurantoin macrocrystalline [From Macrobid] Allergy (Severe, Verified 09:31) Generalized edema Penicillins Allergy (Severe, Verified 05/03/17 09:31) eyes swelled pregabalin [From Lyrica] Allergy (Severe, Verified 05/03/17 09:31) Equilibrium Issues venom-honey bee [bee venom (honey bee)] Allergy (Verified 05/03/17 09:31) Anaphylaxis Review of Systems Constitutional: ABSENT: chills, fever(s), headache(s), weight gain, weight loss Eyes: ABSENT: visual disturbances Ears: ABSENT: hearing changes Cardiovascular: ABSENT: chest pain, dyspnea on exertion, edema, orthropnea, palpitations Respiratory: ABSENT: cough, hemoptysis Gastrointestinal: PRESENT: vomiting Genitourinary: ABSENT: dysuria, hematuria Musculoskeletal: ABSENT: joint swelling Integumentary: ABSENT: rash, wounds Neurological: ABSENT: abnormal gait, abnormal speech, confusion, dizziness, focal weakness, syncope Psychiatric: ABSENT: anxiety, depression, homidical ideation, suicidal ideation Endocrine: ABSENT: cold intolerance, heat intolerance, menstrual abnormalities, polydipsia, polyuria Hematologic/Lymphatic: ABSENT: easy bleeding, easy bruising, lymphadenopathy Physical Exam Vital Signs: Temp Pulse Resp BP Pulse Ox 97.9 F 79 16 104/50 L 96 10/06/17 16:00 10/06/17 16:00 10/06/17 16:00 10/06/17 16:00 10/06/17 16:00 Intake & Output 10/05/17 10/06/17 10/07/17 06:59 06:59 06:59 Intake Total 1127 1080 Output Total 500 600 Balance 627 480 Weight 88.7 kg General appearance: PRESENT: no acute distress, well-developed, well-nourished Head exam: PRESENT: atraumatic, normocephalic Eye exam: PRESENT: conjunctiva pink, EOMI, PERRLA Ear exam: PRESENT: normal external ear exam Mouth exam: PRESENT: moist, tongue midline Neck exam: PRESENT: full ROM Respiratory exam: PRESENT: clear to auscultation martínez Cardiovascular exam: PRESENT: RRR, +S1, +S2 Pulses: PRESENT: normal dorsalis pedis pul, +2 pedal pulses bilateral Vascular exam: PRESENT: normal capillary refill GI/Abdominal exam: PRESENT: normal bowel sounds, soft Rectal exam: PRESENT: deferred Neurological exam: PRESENT: alert, awake, oriented to person, oriented to place , oriented to time, oriented to situation, CN II-XII grossly intact Psychiatric exam: PRESENT: appropriate affect, normal mood Skin exam: PRESENT: dry, intact, warm Results Laboratory Results: 10/06/17 15:12 10/06/17 15:12 10/05/17 10/05/17 10/05/17 20:00 21:00 21:00 WBC 14.3 H RBC 5.33 H Hgb 14.6 Hct 41.8 MCV 78 L MCH 27.3 MCHC 34.9 RDW 14.0 Plt Count 367 Seg Neutrophils % 77.2 Lymphocytes % 15.4 Monocytes % 6.7 Eosinophils % 0.3 Basophils % 0.4 Absolute Neutrophils 11.0 H Absolute Lymphocytes 2.2 Absolute Monocytes 1.0 Absolute Eosinophils 0.0 Absolute Basophils 0.1 Sodium 128.9 L Potassium 3.1 L Chloride 96 L Carbon Dioxide 20 L Anion Gap 13 BUN 14 Creatinine 1.12 Est GFR ( Amer) 59 L Est GFR (Non-Af Amer) 49 L Glucose 97 Calcium 9.7 Total Bilirubin 0.6 AST 21 ALT 30 Alkaline Phosphatase 150 H Total Protein 6.9 Albumin 4.4 Urine Color YELLOW Urine Appearance SLIGHTLY-CLOUDY Urine pH 7.0 Ur Specific [place] 1.013 Urine Protein NEGATIVE Urine Glucose (UA) NEGATIVE Urine Ketones NEGATIVE Urine Blood NEGATIVE Urine Nitrite NEGATIVE Ur Leukocyte Esterase LARGE H Urine WBC (Auto) 92 Urine RBC (Auto) 5 10/06/17 10/06/17 15:12 15:12 WBC 9.2 RBC 4.49 Hgb 12.2 D Hct 35.5 L MCV 79 L MCH 27.1 MCHC 34.3 RDW 13.8 Plt Count 288 Seg Neutrophils % 66.1 Lymphocytes % 22.5 Monocytes % 9.4 Eosinophils % 1.6 Basophils % 0.4 Absolute Neutrophils 6.1 Absolute Lymphocytes 2.1 Absolute Monocytes 0.9 Absolute Eosinophils 0.1 Absolute Basophils 0.0 Sodium 131.9 L Potassium 2.7 L* Chloride 97 L Carbon Dioxide 24 Anion Gap 11 BUN 18 Creatinine 1.44 H Est GFR ( Amer) 44 L Est GFR (Non-Af Amer) 37 L Glucose 106 Calcium 8.1 L Total Bilirubin 0.3 AST 20 ALT 19 Alkaline Phosphatase 108 Total Protein 5.8 L Albumin 3.5 Urine Color Urine Appearance Urine pH Ur Specific [place] Urine Protein Urine Glucose (UA) Urine Ketones Urine Blood Urine Nitrite Ur Leukocyte Esterase Urine WBC (Auto) Urine RBC (Auto) Impressions: Abdomen/Pelvis CT 10/05/17 00:00 IMPRESSION: NO ACUTE PROCESS IN THE ABDOMEN OR PELVIS. Chest X-Ray 10/05/17 00:00 IMPRESSION: NO SIGNIFICANT RADIOGRAPHIC FINDING IN THE CHEST. Assessment & Plan - Diagnosis (1) Intractable vomiting Qualifiers: Vomiting type: unspecified Nausea presence: with nausea Qualified Code(s) : R11.2 - Nausea with vomiting, unspecified Is this a current diagnosis for this admission?: Yes (2) Hypokalemia Is this a current diagnosis for this admission?: Yes
[2017-10-06] MEDS ORDERED: ONDANSETRON HCL INJ/PF 4 MG/2 ML SDV ONE (18:59)
[2017-10-06] MEDS ORDERED: ONDANSETRON HCL INJ/PF 4 MG/2 ML SDV IV PRN (19:04)
[2017-10-06] MEDS: HYDROCODONE/ACETAMINOPHEN 10-325 MG TABLET PO PRN (19:44)
[2017-10-06] MEDS: LORATADINE 10 MG TABLET PO SCH (21:00)
[2017-10-06] MEDS: ATORVASTATIN CALCIUM 40 MG TABLET PO SCH (21:00)
[2017-10-07] MEDS: HYDROMORPHONE HCL INJ/PF 2 MG/ML AMPULE IV PRN ×5 (00:04→20:40)
[2017-10-07] MEDS: PROMETHAZINE HCL 25 MG TABLET PO PRN ×4 (00:09→20:40)
[2017-10-07] MEDS: POTASSIUM CHLORIDE 20 MEQ/50 ML RTU IV SCH ×2 (01:08→02:06)
[2017-10-07] MEDS: GABAPENTIN 300 MG CAPSULE PO SCH ×3 (05:31→22:29)
[2017-10-07] MEDS: LEVOTHYROXINE SODIUM 0.1 MG TABLET PO SCH (05:32)
[2017-10-07] MEDS: NORMAL SALINE 1000 ML 1,000 ML IV PRN (05:35)
[2017-10-07] MEDS: HYDROCHLOROTHIAZIDE 25 MG TABLET PO SCH (09:45)
[2017-10-07] MEDS: ASPIRIN 325 MG TABLET PO SCH (09:47)
[2017-10-07] MEDS: LOSARTAN POTASSIUM 50 MG TABLET PO SCH (09:47)
[2017-10-07] MEDS: HYDROXYCHLOROQUINE SULFATE 200 MG TABLET PO SCH ×2 (09:47→22:29)
--- NOTE | 2017-10-07 12:04 | EKG REPORT ---
SEVERITY:- BORDERLINE ECG - SINUS RHYTHM BORDERLINE PROLONGED QT INTERVAL : Confirmed by: Patti Naylor MD 07-Oct-2017 12:03:01
[2017-10-07 12:35] LABS: ALANINE AMINOTRANSFERASE 17 U/L (9-52); ALKALINE PHOSPHATASE 125 U/L (38-126); ANION GAP 10 (5-19); ASPARTATE AMINO TRANSFERASE 25 U/L (14-36); BILIRUBIN,DIRECT 0.2 mg/dL (0.0-0.4); BILIRUBIN,TOTAL 0.2 mg/dL (0.2-1.3); BLOOD UREA NITROGEN 15 mg/dL (7-20); CALCIUM 8.5 mg/dL (8.4-10.2); CARBON DIOXIDE 26 mmol/L (22-30); CHLORIDE 101 mmol/L (98-107); GLUCOSE 82 mg/dL (75-110); POTASSIUM 3.3 mmol/L (3.6-5.0); SODIUM 137.4 mmol/L (137-145); TOTAL PROTEIN 6.5 g/dL (6.3-8.2)
[2017-10-07] MEDS: HYDROCODONE/ACETAMINOPHEN 10-325 MG TABLET PO PRN (14:20)
[2017-10-07] MEDS: POTASSI CL 20 MEQ/50 ML RIDER 20 MEQ/50 ML RTUPB IV SCH ×2 (16:11→18:23)
[2017-10-07] MEDS: LORATADINE 10 MG TABLET PO SCH (22:29)
[2017-10-07] MEDS: ATORVASTATIN CALCIUM 40 MG TABLET PO SCH (22:29)
[2017-10-08] MEDS: HYDROMORPHONE HCL INJ/PF 2 MG/ML AMPULE IV PRN ×5 (00:43→21:56)
[2017-10-08] MEDS: PROMETHAZINE HCL 25 MG TABLET PO PRN ×2 (04:58→11:31)
[2017-10-08] MEDS: LEVOTHYROXINE SODIUM 0.1 MG TABLET PO SCH (05:00)
[2017-10-08] MEDS: GABAPENTIN 300 MG CAPSULE PO SCH ×3 (05:00→21:56)
[2017-10-08] MEDS: NORMAL SALINE 1000 ML 1,000 ML IV PRN ×2 (05:31→15:09)
[2017-10-08 09:08] LABS: ABSOLUTE EOSINOPHILS # (AUTO) 0.1 10^3/uL (0.0-0.6); ABSOLUTE LYMPHOCYTES (AUTO) 1.7 10^3/uL (0.5-4.7); ABSOLUTE MONOCYTES (AUTO) 0.7 10^3/uL (0.1-1.4); ABSOLUTE NEUT (AUTO) 4.8 10^3/uL (1.7-8.2); BASOPHILS % (AUTO) 0.3 % (0-2); EOSINOPHILS % (AUTO) 1.9 % (0-6); HEMATOCRIT 32.4 % (36.0-47.0); LYMPHOCYTES % (AUTO) 23.1 % (13-45); MEAN CORPUSCULAR HEMOGLOBIN 27.6 pg (27.0-33.4); MEAN CORPUSCULAR HGB CONC 34.1 g/dL (32.0-36.0); MEAN CORPUSCULAR VOLUME 81 fl (80-97); PLATELET COUNT 253 10^3/uL (150-450); RED CELL DISTRIBUTION WIDTH 13.9 % (11.5-14.0); SEGMENTED NEUTROPHILS % (AUTO) 64.7 % (42-78); TOTAL CELLS COUNTED % (AUTO) 100 %; WHITE BLOOD COUNT 7.4 10^3/uL (4.0-10.5)
[2017-10-08 09:31] LABS: ALANINE AMINOTRANSFERASE 21 U/L (9-52); ALBUMIN 3.2 g/dL (3.5-5.0); ALKALINE PHOSPHATASE 106 U/L (38-126); ANION GAP 8 (5-19); ASPARTATE AMINO TRANSFERASE 15 U/L (14-36); BLOOD UREA NITROGEN 10 mg/dL (7-20); CALCIUM 8.6 mg/dL (8.4-10.2); CARBON DIOXIDE 25 mmol/L (22-30); CHLORIDE 102 mmol/L (98-107); GLUCOSE 102 mg/dL (75-110); SODIUM 135.2 mmol/L (137-145); TOTAL PROTEIN 5.3 g/dL (6.3-8.2)
[2017-10-08 09:34] LABS: BILIRUBIN,TOTAL < 0.1 mg/dL (0.2-1.3)
[2017-10-08 09:38] LABS: POTASSIUM 4.3 mmol/L (3.6-5.0)
[2017-10-08] MEDS: ASPIRIN 325 MG TABLET PO SCH (10:10)
[2017-10-08] MEDS: HYDROXYCHLOROQUINE SULFATE 200 MG TABLET PO SCH ×2 (10:10→21:56)
[2017-10-08] MEDS: HYDROCHLOROTHIAZIDE 25 MG TABLET PO SCH (10:10)
[2017-10-08] MEDS: LOSARTAN POTASSIUM 50 MG TABLET PO SCH (10:11)
[2017-10-08] MEDS: HYDROCODONE/ACETAMINOPHEN 10-325 MG TABLET PO PRN (18:01)
[2017-10-08] MEDS ORDERED: LIDOCAINE 5% (700 MG) TRANSDERMAL ADH..PATCH TP ONE (20:15)
[2017-10-08] MEDS: CIPROFLOXACIN 400 MG/D5W RTU 400 MG/200 ML RTUPB IV SCH (21:56)
[2017-10-08] MEDS: ATORVASTATIN CALCIUM 40 MG TABLET PO SCH (21:56)
[2017-10-08] MEDS: LORATADINE 10 MG TABLET PO SCH (21:56)
[2017-10-09] MEDS: PROMETHAZINE HCL 25 MG TABLET PO PRN ×2 (01:17→09:41)
[2017-10-09] MEDS: HYDROMORPHONE HCL INJ/PF 2 MG/ML AMPULE IV PRN ×4 (02:09→13:32)
[2017-10-09] MEDS: LEVOTHYROXINE SODIUM 0.1 MG TABLET PO SCH (06:01)
[2017-10-09] MEDS: GABAPENTIN 300 MG CAPSULE PO SCH ×2 (06:01→13:33)
[2017-10-09] MEDS: ASPIRIN 325 MG TABLET PO SCH (09:39)
[2017-10-09] MEDS: HYDROCHLOROTHIAZIDE 25 MG TABLET PO SCH (09:40)
[2017-10-09] MEDS: HYDROXYCHLOROQUINE SULFATE 200 MG TABLET PO SCH (09:40)
[2017-10-09] MEDS: LOSARTAN POTASSIUM 50 MG TABLET PO SCH (09:41)
[2017-10-09] MEDS ORDERED: LIDOCAINE 5% (700 MG) TRANSDERMAL ADH..PATCH TP SCH (10:00)
[2017-10-09] MEDS: CIPROFLOXACIN 400 MG/D5W RTU 400 MG/200 ML RTUPB IV SCH (10:28)
[2017-10-09] MEDS: NORMAL SALINE 1000 ML 1,000 ML IV PRN (11:46)
[2017-10-09] MEDS: HYDROCODONE/ACETAMINOPHEN 10-325 MG TABLET PO PRN (16:16)
[2017-10-09 16:37] VITALS: BP 117/62
--- NOTE | 2017-10-09 19:33 | PDOC DISCHARGE SUMMARY ---
General - Admit/Disc Date/PCP Admission Date/Primary Care Provider: 10/08/17 13:35 IAN MUÑOZ MD Discharge Date: 10/09/17 - Discharge Diagnosis (1) Intractable vomiting Is this a current diagnosis for this admission?: Yes (2) Hypokalemia Is this a current diagnosis for this admission?: Yes (3) Coronary artery disease Is this a current diagnosis for this admission?: Yes (4) Dehydration Is this a current diagnosis for this admission?: Yes - Additional Information Discharge Diet: Regular Discharge Activity: Activity As Tolerated Home Medications: RX: Apixaban [Eliquis 5 mg Tablet] 5 mg PO BID 10/05/17 RX: Aspirin [Aspirin 325 mg Tablet] 325 mg PO DAILY 10/05/17 RX: Atorvastatin Calcium [Lipitor 40 mg Tablet] 40 mg PO QHS 10/05/17 RX: Clopidogrel Bisulfate [Plavix 75 mg Tablet] 75 mg PO DAILY 10/05/17 RX: Cyanocobalamin (Vitamin B-12) [Vitamin B-12 Inj 1000 Mcg/1 ml Vial] 1,000 mcg IM .MONTHLY 10/05/17 RX: Cyclobenzaprine HCl [Flexeril 10 mg Tablet] 10 mg PO TIDP PRN 10/05/17 RX: Diphenoxylate HCl/Atropine [Lomotil 2.5-0.025 mg Tablet] 1 each PO Q6HP PRN 10/05/17 RX: Furosemide [Lasix 40 mg Tablet] 40 mg PO DAILY 10/05/17 RX: Gabapentin [Neurontin] 600 mg PO Q8 10/05/17 RX: Hydrocodone Bitartrate [Zohydro ER] 40 mg PO Q12 10/05/17 RX: Hydrocodone/Acetaminophen [[place] 10-325 Tablet] 1 each PO Q6HP PRN 10/05/17 RX: Hydroxychloroquine Sulfate [Plaquenil 200 mg Tablet] 200 mg PO BID 10/05/17 RX: Levothyroxine Sodium [Synthroid 0.1 mg Tablet] 0.1 mg PO Q6AM 10/05/17 RX: Loratadine [Claritin 10 mg Tablet] 10 mg PO DAILY 10/05/17 RX: Losartan/Hydrochlorothiazide [Hyzaar 100-25 Tablet] 1 tab PO DAILY 10/05/17 RX: Oxycodone HCl/Acetaminophen [Percocet 10-325 mg Tablet] 1 each PO Q6HP PRN 10/05/17 RX: Promethazine HCl [Phenergan 25 mg Tablet] 25 mg PO Q6HP PRN 10/05/17 History of Present Illness History of Present Illness: VALENTE MUNOZ is a 62 year old female, she was admitted directly from outpatient because of failed outpatient treatment, she complained of vomiting persistently for the last 2 days attempt was made to treat outpatient without success, a stat CT scan of the abdomen and pelvis was done without contrast was negative for an acute pathology she has a history of recurrent urinary tract infection, she does self-catheterization 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 She was just treated for UTI outpatient with p.o. ciprofloxacin, I do not know how much she kept because of the persistent vomiting Hospital Course Hospital Course: Patient was admitted for observation and evaluation of persistent vomiting, she was treated with IV fluid for hydration she also had hypokalemia this was corrected with potassium replacement therapy she has a history of recurrent urinary tract infection, she was empirically treated with IV antibiotic ciprofloxacin Physical Exam Vital Signs: Temp Pulse Resp BP Pulse Ox 97.9 F 82 17 117/62 100 10/09/17 15:27 10/09/17 15:27 10/09/17 15:27 10/09/17 15:27 10/09/17 15:27 Intake & Output 10/08/17 10/09/17 10/10/17 06:59 06:59 06:59 Intake Total 3808 4999 Output Total 2075 4825 Balance 1733 174 Weight 100.6 kg 101.3 kg General appearance: PRESENT: no acute distress Head exam: PRESENT: atraumatic, normocephalic Eye exam: PRESENT: conjunctiva pink, EOMI, PERRLA Ear exam: PRESENT: normal external ear exam Mouth exam: PRESENT: moist, tongue midline Neck exam: PRESENT: full ROM Cardiovascular exam: PRESENT: RRR, +S1, +S2 Pulses: PRESENT: normal dorsalis pedis pul, +2 pedal pulses bilateral Vascular exam: PRESENT: normal capillary refill GI/Abdominal exam: PRESENT: normal bowel sounds, soft Rectal exam: PRESENT: deferred Neurological exam: PRESENT: alert, awake, oriented to person, oriented to place , oriented to time, oriented to situation, CN II-XII grossly intact Psychiatric exam: PRESENT: appropriate affect, normal mood Skin exam: PRESENT: dry, intact, warm Results Laboratory Results: 10/08/17 08:40 10/08/17 08:40 Impressions: Abdomen/Pelvis CT 10/05/17 00:00 IMPRESSION: NO ACUTE PROCESS IN THE ABDOMEN OR PELVIS. Chest X-Ray 10/05/17 00:00 IMPRESSION: NO SIGNIFICANT RADIOGRAPHIC FINDING IN THE CHEST.
--- NOTE | 2017-10-10 18:32 | EKG REPORT ---
SEVERITY:- BORDERLINE ECG - SINUS RHYTHM BORDERLINE PROLONGED QT INTERVAL : Confirmed by: Juan Manuel Clarke MD 10-Oct-2017 18:32:00
== END 2017-10-09 16:44 | disposition home or self-care (01) | DRG 641 ==
LOC: 5 18:19 → OBSVTOIN 10-08 13:35
PROVIDERS: ADMIT Internal Medicine; ATTEND Internal Medicine
DX: E86.0 Dehydration (principal); N39.0 Urinary tract infection, site not specified; E87.6 Hypokalemia; R19.7 Diarrhea, unspecified; I25.10 Atherosclerotic heart disease of native coronary artery without angina pectoris; J44.9 Chronic obstructive pulmonary disease, unspecified; E03.9 Hypothyroidism, unspecified; K21.9 Gastro-esophageal reflux disease without esophagitis; K44.9 Diaphragmatic hernia without obstruction or gangrene; M19.90 Unspecified osteoarthritis, unspecified site; M32.9 Systemic lupus erythematosus, unspecified; M79.7 Fibromyalgia; Z79.82 Long term (current) use of aspirin; Z79.02 Long term (current) use of antithrombotics/antiplatelets; Z79.899 Other long term (current) drug therapy; I25.2 Old myocardial infarction; Z86.711 Personal history of pulmonary embolism; Z87.891 Personal history of nicotine dependence; Z85.41 Personal history of malignant neoplasm of cervix uteri; Z85.43 Personal history of malignant neoplasm of ovary; Z95.5 Presence of coronary angioplasty implant and graft; Z90.49 Acquired absence of other specified parts of digestive tract; Z90.710 Acquired absence of both cervix and uterus; Z96.653 Presence of artificial knee joint, bilateral; Z96.649 Presence of unspecified artificial hip joint; Z88.8 Allergy status to other drugs, medicaments and biological substances; Z91.030 Bee allergy status; Z88.0 Allergy status to penicillin
CPT/HCPCS: 36415; 71045; 74176; 80048; 80053; 80076; 81001; 85025; 87086; 87088; 87186; 87493; 93005; 93010; G0378; G0379; J0744; J1170; J2405; J3480; J3490; J7030

== ENCOUNTER 2017-10-11 12:54 | Inpatient (IN) | payer MEDICARE, OTHER ==
--- NOTE | 2017-10-11 15:53 | RADIOLOGY REPORT (SQ) ---
EXAM DESCRIPTION: CHEST SINGLE VIEW COMPLETED DATE/TIME: 10/11/2017 3:24 pm REASON FOR STUDY: persting vomiting COMPARISON: 09/29/2016 EXAM PARAMETERS: NUMBER OF VIEWS: One view. TECHNIQUE: Single frontal radiographic view of the chest acquired. RADIATION DOSE: NA LIMITATIONS: None. FINDINGS: LUNGS AND PLEURA: No opacities, masses or pneumothorax. No pleural effusion. MEDIASTINUM AND HILAR STRUCTURES: No masses. Contour normal. HEART AND VASCULAR STRUCTURES: Heart normal in size. Normal vasculature. BONES: No acute findings. HARDWARE: None in the chest. OTHER: Stable position of thoracic neurostimulator and right-sided port. IMPRESSION: NO ACUTE RADIOGRAPHIC FINDING IN THE CHEST. TECHNICAL DOCUMENTATION: JOB ID: [id number] [employer] [facility] [employer]- All Rights Reserved
[2017-10-11 17:00] LABS: ALANINE AMINOTRANSFERASE 19 U/L (9-52); ALBUMIN 4.5 g/dL (3.5-5.0); ALKALINE PHOSPHATASE 121 U/L (38-126); ANION GAP 16 (5-19); ASPARTATE AMINO TRANSFERASE 20 U/L (14-36); BILIRUBIN,DIRECT 0.2 mg/dL (0.0-0.4); BILIRUBIN,TOTAL 0.2 mg/dL (0.2-1.3); BLOOD UREA NITROGEN 7 mg/dL (7-20); CALCIUM 9.6 mg/dL (8.4-10.2); CARBON DIOXIDE 23 mmol/L (22-30); CHLORIDE 96 mmol/L (98-107); CREATINE KINASE 43 U/L (30-135); GLUCOSE 146 mg/dL (75-110); SODIUM 135.1 mmol/L (137-145); TOTAL PROTEIN 6.9 g/dL (6.3-8.2)
[2017-10-11 17:18] LABS: TROPONIN I < 0.012 ng/mL
[2017-10-11 17:51] LABS: HEMATOCRIT 39.2 % (36.0-47.0); HEMOGLOBIN 13.4 g/dL (12.0-15.5); MEAN CORPUSCULAR HEMOGLOBIN 27.5 pg (27.0-33.4); MEAN CORPUSCULAR HGB CONC 34.2 g/dL (32.0-36.0); MEAN CORPUSCULAR VOLUME 80 fl (80-97); PLATELET COUNT 295 10^3/uL (150-450); RED BLOOD COUNT 4.87 10^6/uL (3.72-5.28); RED CELL DISTRIBUTION WIDTH 14.2 % (11.5-14.0); WHITE BLOOD COUNT 8.3 10^3/uL (4.0-10.5)
[2017-10-11 18:33] LABS: ERYTHROCYTE SEDIMENTATION RATE 37 mm/hr (0-30)
--- NOTE | 2017-10-11 18:57 | EKG REPORT ---
SEVERITY:- NORMAL ECG - SINUS RHYTHM : Confirmed by: Juan Manuel Clarke MD 11-Oct-2017 18:55:43
[2017-10-11] MEDS: ATORVASTATIN CALCIUM 40 MG TABLET PO SCH (20:29)
[2017-10-11] MEDS: GABAPENTIN 300 MG CAPSULE PO SCH (20:30)
[2017-10-11] MEDS: HYDROMORPHONE HCL INJ/PF 2 MG/ML AMPULE IV PRN (20:30)
[2017-10-11] MEDS: PROMETHAZINE HCL INJ 25 MG/1 ML VIAL IV PRN (20:55)
[2017-10-11] MEDS ORDERED: APIXABAN 5 MG TABLET PO SCH (22:00)
[2017-10-11] MEDS: HYDROXYCHLOROQUINE SULFATE 200 MG TABLET PO SCH (23:06)
[2017-10-11] MEDS: DIPHENOXYLATE HCL/ATROP SULF 2.5-0.025 MG TABLET PO SCH (23:08)
[2017-10-11 23:44] LABS: CREATINE KINASE MB 0.51 ng/mL (<4.55)
[2017-10-11 23:45] LABS: TROPONIN I < 0.012 ng/mL
[2017-10-12 00:27] LABS: APPEARANCE,URINE CLEAR; BILIRUBIN,URINE NEGATIVE (NEGATIVE); COLOR,URINE STRAW; GLUCOSE, URINE NEGATIVE (NEGATIVE); KETONES,URINE NEGATIVE (NEGATIVE); LEUKOCYTE ESTERASE,URINE MODERATE (NEGATIVE); NITRITE,URINE NEGATIVE (NEGATIVE); PROTEIN,URINE NEGATIVE (NEGATIVE); URINE SPECIFIC GRAVITY 1.003; UROBILINOGEN,URINE NEGATIVE mg/dL (<2.0)
[2017-10-12] MEDS: HYDROMORPHONE HCL INJ/PF 2 MG/ML AMPULE IV PRN ×5 (01:15→20:14)
[2017-10-12] MEDS: PROMETHAZINE HCL INJ 25 MG/1 ML VIAL IV PRN (01:24)
[2017-10-12] MEDS: NORMAL SALINE 1000 ML 1,000 ML IV PRN (03:03)
[2017-10-12] MEDS: LEVOTHYROXINE SODIUM 0.1 MG TABLET PO SCH (05:14)
[2017-10-12] MEDS: DIPHENOXYLATE HCL/ATROP SULF 2.5-0.025 MG TABLET PO SCH ×4 (05:14→23:46)
[2017-10-12] MEDS: GABAPENTIN 300 MG CAPSULE PO SCH ×3 (05:14→21:56)
[2017-10-12] MEDS ORDERED: FUROSEMIDE 40 MG TABLET PO SCH (08:00)
[2017-10-12 08:03] LABS: CREATINE KINASE MB 0.63 ng/mL (<4.55)
[2017-10-12 08:11] LABS: TROPONIN I < 0.012 ng/mL
[2017-10-12] MEDS: LOSARTAN POTASSIUM 50 MG TABLET PO SCH (09:49)
[2017-10-12] MEDS: HYDROCHLOROTHIAZIDE 25 MG TABLET PO SCH (09:50)
[2017-10-12] MEDS: HYDROXYCHLOROQUINE SULFATE 200 MG TABLET PO SCH ×2 (09:55→21:57)
[2017-10-12] MEDS: ASPIRIN 325 MG TABLET PO SCH (09:55)
[2017-10-12] MEDS ORDERED: (PENDING PHARMACY ID) (Losartan/Hydrochlorothiazide [Losartan-Hctz 100-25 Mg Tab] 1 TAB) PO SCH (10:00)
[2017-10-12] MEDS ORDERED: CLOPIDOGREL BISULFATE 75 MG TABLET PO SCH (10:00)
[2017-10-12] MEDS ORDERED: NALOXONE HCL INJ/PF 0.4 MG/1 ML SDV ONE (15:53)
[2017-10-12] MEDS ORDERED: FENTANYL CITRATE INJ/PF 100 MCG/2 ML AMPUL ONE (15:54)
[2017-10-12] MEDS ORDERED: FLUMAZENIL INJ 0.5 MG/5 ML VIAL ONE (15:54)
[2017-10-12] MEDS ORDERED: MIDAZOLAM 2 MG/2 ML INJ ONE (15:54)
[2017-10-12] MEDS ORDERED: GLUCAGON,HUMAN RECOMB 1 MG INJ ONE (15:55)
[2017-10-12] MEDS ORDERED: EPINEPHRINE INJ 1 MG/10 ML DISP.SYRIN ONE (15:55)
--- NOTE | 2017-10-12 17:08 | PDOC CONSULTATION ---
Consultation Consult Date: 10/11/17 History of Present Illness Admission Date/PCP: 10/11/17 12:54 IAN MUÑOZ MD History of Present Illness: This is a 62-year-old patient who was admitted again on 10/11/2017 for vomiting and abdominal pain. She was admitted initially admitted on 10/05/2017 for the same complaint after having been treated for a couple of days as outpatient. She was discharged on 10/09/2017. she has been having problems with nausea and vomiting for the last 7-8 days. She only vomits after she eats or drinks anything but does have some nausea. Vomiting is associated with diarrhea having 2-3 watery bowel movements a day. She has also had a constant upper abdominal discomfort over the last couple of years which gets worse when she is vomiting. She has episodes of vomiting a couple of times a year. She has a lot of stress in her life but denies anything unusual in the last few weeks. She had a CAT scan of the abdomen and pelvis with no oral or IV contrast on 10/07/2017 this was normal Past Medical History Cardiac Medical History: Reports: Congestive Heart Failure, Coronary Artery Disease, DVT, Myocardial Infarction, Hyperlipidema, Hypertension, Pulmonary Embolism Denies: Atrial Fibrillation, Peripheral Vascular Disease, Heart Murmur Pulmonary Medical History: Reports: Bronchitis, Chronic Obstructive Pulmonary Disease (COPD) Denies: Asthma, Pneumonia, Respiratory Failure, Sleep Apnea, Tuberculosis Neurological Medical History: Denies: Seizures Endocrine Medical History: Reports: Hypothyroidism Denies: Hyperthyroidism Renal/ Medical History: Denies: End Stage Renal Disease Malignancy Medical History: Reports: Cervical Cancer, Ovarian Cancer Denies: Breast Cancer, Leukemia, Lung Cancer GI Medical History: Reports: Gastroesophageal Reflux Disease, Hiatal Hernia - Repaired Denies: Crohn's Disease, Hepatitis Musculoskeltal Medical History: Reports: Arthritis - Lupus, Fibromyalgia - Lupus Psychiatric Medical History: Reports: Depression Denies: Bipolar Disorder, Dementia, Post Traumatic Stress Disorder Hematology: Reports: Anemia - HX OF LOW NA AND K,LOW IRON WILL HAVE IRON TRANS FUSION 05/04. Denies: Hemophilia, Sickle Cell Disease Infectious Medical History: Reports: Clostridium Difficile - Was negative in October2015. Not yet successfully collected stool Denies: HIV Past Surgical History Past Surgical History: Reports: Appendectomy, Cardiac Catheterization, Section, Cholecystectomy, Coronary Stent - 3 stents, Herniorrhaphy, Hysterectomy , Orthopedic Surgery - Right knee, bilateral knee replacements and hip replacement metal plate in, Tonsillectomy Denies: Amputation, Colostomy, Coronary Artery Bypass Graft, Gastric Bypass Surgery, Mastectomy, Pacemaker, Tubal Ligation Social History Smoking Status: Former Smoker Number of Years Smokin Last Time Smoked: 3 years Frequency of Alcohol Use: None Hx Recreational Drug Use: No Drugs: None Hx Prescription Drug Abuse: No Family History Family History: Arthritis, COPD, Hyperlipidemia, Hypertension, Malignancy, Thyroid Disfunction Parental Family History Reviewed: No Children Family History Reviewed: NA Sibling(s) Family History Reviewed.: NA Medication/Allergy Home Medications: Apixaban [Eliquis 5 mg Tablet] 5 mg PO Q12 10/11/17 Aspirin [Aspirin 325 mg Tablet] 325 mg PO DAILY 10/11/17 Atorvastatin Calcium [Lipitor 40 mg Tablet] 40 mg PO QHS 10/11/17 Clopidogrel Bisulfate [Plavix 75 mg Tablet] 75 mg PO DAILY 10/11/17 Cyanocobalamin (Vitamin B-12) [Vitamin B-12 Inj 1000 Mcg/1 ml Vial] 1,000 mcg IM .MONTHLY 10/11/17 Cyclobenzaprine HCl [Flexeril 10 mg Tablet] 10 mg PO Q8HP PRN 10/11/17 Diphenoxylate HCl/Atropine [Lomotil Tablet] 1 tab PO Q6 10/11/17 Furosemide [Lasix 40 mg Tablet] 40 mg PO QAM 10/11/17 Gabapentin [Neurontin 300 mg Capsule] 600 mg PO Q8 10/11/17 Hydroxychloroquine Sulfate [Plaquenil 200 mg Tablet] 200 mg PO Q12 10/11/17 Levothyroxine Sodium [Synthroid 0.1 mg Tablet] 0.1 mg PO Q6AM 10/11/17 Losartan/Hydrochlorothiazide [Losartan-Hctz 100-25 mg Tab] 1 tab PO DAILY Allergies/Adverse Reactions: irbesartan [From Avapro] Allergy (Severe, Verified 05/03/17 09:31) swelling of face nitrofurantoin macrocrystalline [From Macrobid] Allergy (Severe, Verified 09:31) Generalized edema Penicillins Allergy (Severe, Verified 05/03/17 09:31) eyes swelled pregabalin [From Lyrica] Allergy (Severe, Verified 05/03/17 09:31) Equilibrium Issues venom-honey bee [bee venom (honey bee)] Allergy (Verified 05/03/17 09:31) Anaphylaxis Review of Systems All systems: reviewed and no additional remarkable complaints except as stated Physical Exam Vital Signs: Temp Pulse Resp BP Pulse Ox 98.2 F 93 18 131/69 H 97 10/12/17 07:15 10/12/17 17:00 10/12/17 17:00 10/12/17 17:00 10/12/17 17:00 Intake & Output 10/11/17 10/12/17 10/13/17 06:59 06:59 06:59 Intake Total 1987 350 Output Total 400 Balance 1987 Weight 86.5 kg 88.7 kg Exam: General: Patient is alert and looks well. She is obese HEENT: There is no pallor or jaundice. PERRLA. Oropharynx normal Respiratory: No chest deformity. No respiratory distress. Chest wall palpitation was unremarkable. Breath sounds were normal Cardiovascular: Heart sounds 1 and 2 normal with no murmurs. Abdominal: Not distended. Soft and nontender. Liver and spleen not palpable. No ascites demonstrated. Bowel sounds active. Rectal examination was deferred. Extremities: No edema Neurological: Alert and oriented x4. Grossly nonfocal. Normal speech Skin: No significant rash Psychological: Normal affect Results Laboratory Results: 10/11/17 17:30 10/11/17 16:00 10/11/17 10/11/17 10/12/17 16:00 17:30 00:08 WBC 8.3 RBC 4.87 Hgb 13.4 Hct 39.2 MCV 80 MCH 27.5 MCHC 34.2 RDW 14.2 H Plt Count 295 Sodium 135.1 L Potassium 4.0 Chloride 96 L Carbon Dioxide 23 Anion Gap 16 BUN 7 Creatinine 0.92 Est GFR ( Amer) > 60 Est GFR (Non-Af Amer) > 60 Glucose 146 H Calcium 9.6 Total Bilirubin 0.2 AST 20 ALT 19 Alkaline Phosphatase 121 Total Protein 6.9 Albumin 4.5 Urine Color STRAW Urine Appearance CLEAR Urine pH 7.0 Ur Specific [place] 1.003 Urine Protein NEGATIVE Urine Glucose (UA) NEGATIVE Urine Ketones NEGATIVE Urine Blood NEGATIVE Urine Nitrite NEGATIVE Ur Leukocyte Esterase MODERATE H Urine WBC (Auto) 35 Urine RBC (Auto) 0 10/11/17 10/11/17 10/11/17 16:00 16:00 23:00 Creatine Kinase 43 49 CK-MB (CK-2) 0.40 Troponin I < 0.012 10/11/17 10/12/17 10/12/17 23:00 06:51 06:51 Creatine Kinase 54 CK-MB (CK-2) 0.51 0.63 Troponin I < 0.012 < 0.012 Impressions: Chest X-Ray 10/11/17 14:49 IMPRESSION: NO ACUTE RADIOGRAPHIC FINDING IN THE CHEST. Assessment & Plan - Diagnosis (1) Vomiting Is this a current diagnosis for this admission?: Yes Plan: Differential diagnosis for vomiting include peptic ulcer disease reflux disease , medication side effect. She will undergo an EGD for further evaluation. I will also start her on Zofran 3 times a day [id number] for 2-3 days. Hopefully this will allow her to eat. (2) Epigastric pain Is this a current diagnosis for this admission?: Yes (3) Diarrhea Is this a current diagnosis for this admission?: Yes Plan: C. difficile testing was negative. I suspect she may have an element of IBS (4) History of colon polyps Plan: She had multiple polyps in 2010 and we tried to schedule her for a follow-up colonoscopy in 2013 unsuccessfully. This could be performed as outpatient
--- NOTE | 2017-10-12 17:10 | Operative Report ---
Operative Report DATE OF SURGERY: 10/12/17 Operative Report: Pre-op diagnosis: Abdominal pain and vomiting Post-op diagnosis: Mild antral gastritis Surgery: Esophagogastroduodenoscopy with Medications: Versed 2mg Fentanyl 100mcg IV push Tissue removed: Antral biopsy for pathology Procedure: After informed consent obtained from patient, the throat was sprayed with Hurricane and conscious sedation was achieved. The upper endoscope was inserted into the esophagus under direct vision and advanced into the stomach. The duodenum was entered and examined to the second part. Endoscope was then slowly pulled out of the patient as the mucosa was examined into details. Patient tolerated procedure well. Findings Esophagus: Normal Z-line at: 35 cm Antrum: Mild erythema. Biopsy was taken Body: Normal Fundus: Normal Duodenum first part: Normal Duodenum second part: Normal Plan: Await pathology. Continue PPI and use Zofran 3 times a day for 2 days OPERATION: .
[2017-10-12] MEDS ORDERED: LANSOPRAZOLE 30 MG TAB.RAP.DR PO ONE (17:30)
--- NOTE | 2017-10-12 20:24 | PDOC H&P ---
History of Present Illness Admission Date/PCP: 10/11/17 12:54 IAN MUÑOZ MD History of Present Illness: Patient is a 62-year-old female she came to the office for evaluation of intractable vomiting associated with upper abdominal discomfort there is no diarrhea. She was recently admitted and discharged from this hospital on 2017 for similar presentation at that time a CAT scan of the abdomen and pelvis with no contrast was ordered, it was negative for any acute pathology. Patient said she feels dehydrated, she is not able to keep any food down, she has not been drinking, in the office she was examined, she looks apprehensive, she was clinically dry/dehydrated, I have no other choice other than to admit her directly from the office into the hospital for further evaluation and management. I discussed her condition with the orbitread operator Dr. Lea for upper endoscopy, she was brought in for observation, she had upper endoscopy done today, she was found to have erythema of the antrum of the stomach biopsy was taken. Past Medical History Cardiac Medical History: Reports: Coronary Artery Disease, DVT, Myocardial Infarction, Hyperlipidema, Hypertension, Pulmonary Embolism Pulmonary Medical History: Reports: Bronchitis, Chronic Obstructive Pulmonary Disease (COPD) Endocrine Medical History: Reports: Hypothyroidism Malignancy Medical History: Reports: Cervical Cancer, Ovarian Cancer GI Medical History: Reports: Gastroesophageal Reflux Disease, Hiatal Hernia - Repaired Musculoskeltal Medical History: Reports: Arthritis - Lupus, Fibromyalgia - Lupus Psychiatric Medical History: Reports: Depression Hematology: Reports: Anemia - HX OF LOW NA AND K,LOW IRON WILL HAVE IRON TRANS FUSION 05/04. Infectious Medical History: Reports: Clostridium Difficile - Was negative in October2015. Not yet successfully collected stool Past Surgical History Past Surgical History: Reports: Appendectomy, Cardiac Catheterization, Section, Cholecystectomy, Coronary Stent - 3 stents, Herniorrhaphy, Hysterectomy , Orthopedic Surgery - Right knee, bilateral knee replacements and hip replacement metal plate in, Tonsillectomy Social History Smoking Status: Former Smoker Number of Years Smokin Last Time Smoked: 3 years Frequency of Alcohol Use: None Hx Recreational Drug Use: No Drugs: None Hx Prescription Drug Abuse: No Family History Family History: Arthritis, COPD, Hyperlipidemia, Hypertension, Malignancy, Thyroid Disfunction Parental Family History Reviewed: Yes Children Family History Reviewed: Yes Sibling(s) Family History Reviewed.: Yes Medication/Allergy Home Medications: Apixaban [Eliquis 5 mg Tablet] 5 mg PO Q12 10/11/17 Aspirin [Aspirin 325 mg Tablet] 325 mg PO DAILY 10/11/17 Atorvastatin Calcium [Lipitor 40 mg Tablet] 40 mg PO QHS 10/11/17 Clopidogrel Bisulfate [Plavix 75 mg Tablet] 75 mg PO DAILY 10/11/17 Cyanocobalamin (Vitamin B-12) [Vitamin B-12 Inj 1000 Mcg/1 ml Vial] 1,000 mcg IM .MONTHLY 10/11/17 Cyclobenzaprine HCl [Flexeril 10 mg Tablet] 10 mg PO Q8HP PRN 10/11/17 Diphenoxylate HCl/Atropine [Lomotil Tablet] 1 tab PO Q6 10/11/17 Furosemide [Lasix 40 mg Tablet] 40 mg PO QAM 10/11/17 Gabapentin [Neurontin 300 mg Capsule] 600 mg PO Q8 10/11/17 Hydroxychloroquine Sulfate [Plaquenil 200 mg Tablet] 200 mg PO Q12 10/11/17 Levothyroxine Sodium [Synthroid 0.1 mg Tablet] 0.1 mg PO Q6AM 10/11/17 Losartan/Hydrochlorothiazide [Losartan-Hctz 100-25 mg Tab] 1 tab PO DAILY Allergies/Adverse Reactions: irbesartan [From Avapro] Allergy (Severe, Verified 05/03/17 09:31) swelling of face nitrofurantoin macrocrystalline [From Macrobid] Allergy (Severe, Verified 09:31) Generalized edema Penicillins Allergy (Severe, Verified 05/03/17 09:31) eyes swelled pregabalin [From Lyrica] Allergy (Severe, Verified 05/03/17 09:31) Equilibrium Issues venom-honey bee [bee venom (honey bee)] Allergy (Verified 05/03/17 09:31) Anaphylaxis Review of Systems Constitutional: ABSENT: chills, fever(s), headache(s), weight gain, weight loss Eyes: ABSENT: visual disturbances Ears: ABSENT: hearing changes Cardiovascular: ABSENT: chest pain, dyspnea on exertion, edema, orthropnea, palpitations Respiratory: ABSENT: cough, hemoptysis Gastrointestinal: PRESENT: abdominal pain, vomiting Genitourinary: ABSENT: dysuria, hematuria Musculoskeletal: ABSENT: joint swelling Integumentary: ABSENT: rash, wounds Neurological: ABSENT: abnormal gait, abnormal speech, confusion, dizziness, focal weakness, syncope Psychiatric: ABSENT: anxiety, depression, homidical ideation, suicidal ideation Endocrine: ABSENT: cold intolerance, heat intolerance, menstrual abnormalities, polydipsia, polyuria Hematologic/Lymphatic: ABSENT: easy bleeding, easy bruising, lymphadenopathy Physical Exam Vital Signs: Temp Pulse Resp BP Pulse Ox 98.4 F 95 18 120/62 100 10/12/17 18:03 10/12/17 19:00 10/12/17 18:03 10/12/17 18:03 10/12/17 18:03 Intake & Output 10/11/17 10/12/17 10/13/17 06:59 06:59 06:59 Intake Total 1987 1150 Output Total 1200 Balance 1987 Weight 86.5 kg 88.7 kg General appearance: PRESENT: no acute distress, well-developed, well-nourished Head exam: PRESENT: atraumatic, normocephalic Eye exam: PRESENT: conjunctiva pink, EOMI, PERRLA Neck exam: PRESENT: full ROM Respiratory exam: PRESENT: clear to auscultation martínez Cardiovascular exam: PRESENT: RRR, +S1, +S2 Pulses: PRESENT: normal dorsalis pedis pul, +2 pedal pulses bilateral Vascular exam: PRESENT: normal capillary refill GI/Abdominal exam: PRESENT: normal bowel sounds, soft Rectal exam: PRESENT: deferred Neurological exam: PRESENT: alert, awake, oriented to person, oriented to place , oriented to time, oriented to situation, CN II-XII grossly intact Psychiatric exam: PRESENT: appropriate affect, normal mood Skin exam: PRESENT: dry, intact, warm Results Laboratory Results: 10/11/17 17:30 10/11/17 16:00 10/12/17 00:08 Urine Color STRAW Urine Appearance CLEAR Urine pH 7.0 Ur Specific [place] 1.003 Urine Protein NEGATIVE Urine Glucose (UA) NEGATIVE Urine Ketones NEGATIVE Urine Blood NEGATIVE Urine Nitrite NEGATIVE Ur Leukocyte Esterase MODERATE H Urine WBC (Auto) 35 Urine RBC (Auto) 0 10/11/17 10/11/17 10/11/17 16:00 16:00 23:00 Creatine Kinase 43 49 CK-MB (CK-2) 0.40 Troponin I < 0.012 02/01/18 02/02/18 02/02/18 23:00 06:51 06:51 Creatine Kinase 54 CK-MB (CK-2) 0.51 0.63 Troponin I < 0.012 < 0.012 Impressions: Chest X-Ray 10/11/17 14:49 IMPRESSION: NO ACUTE RADIOGRAPHIC FINDING IN THE CHEST. Assessment & Plan - Diagnosis (1) Intractable vomiting Qualifiers: Vomiting type: unspecified Nausea presence: with nausea Qualified Code(s) : R11.2 - Nausea with vomiting, unspecified Is this a current diagnosis for this admission?: Yes Plan: There is no definitive metabolic explanation for the vomiting, the upper endoscopy is not overly abnormal for the last 24 hours she feels better with the IV fluid there is no observed vomiting so far in the hospital (2) Systemic lupus erythematosus Qualifiers: Systemic lupus erythematosus type: unspecified Systemic lupus erythematosus organ involvement: unspecified Qualified Code(s): M32.9 - Systemic lupus erythematosus, unspecified Is this a current diagnosis for this admission?: Yes
[2017-10-12] MEDS: ATORVASTATIN CALCIUM 40 MG TABLET PO SCH (21:57)
[2017-10-12] MEDS: ONDANSETRON 4 MG TAB.RAPDIS PO SCH (23:48)
[2017-10-13] MEDS: NORMAL SALINE 1000 ML 1,000 ML IV PRN ×2 (00:52→10:45)
[2017-10-13] MEDS: HYDROMORPHONE HCL INJ/PF 2 MG/ML AMPULE IV PRN ×2 (00:54→05:40)
[2017-10-13] MEDS: LEVOTHYROXINE SODIUM 0.1 MG TABLET PO SCH (05:40)
[2017-10-13] MEDS: DIPHENOXYLATE HCL/ATROP SULF 2.5-0.025 MG TABLET PO SCH ×4 (05:40→23:19)
[2017-10-13] MEDS: GABAPENTIN 300 MG CAPSULE PO SCH ×3 (05:41→22:40)
[2017-10-13] MEDS ORDERED: HYDROCODONE BITARTRATE PO SCH (10:15)
--- NOTE | 2017-10-13 10:15 | PDOC PROGRESS REPORT ---
Subjective Progress Note for:: 10/13/17 Subjective:: Patient was admitted for the intractable vomiting and nausea and underwent for the endoscopy Patient is currently doing fair able to keep the food down Is denied any chest pain denied any shortness of the breath Patients have a chronic pain and currently taking the chronic pain medications at home Reason For Visit: PERSISTANT VOMITING Physical Exam Vital Signs: Temp Pulse Resp BP Pulse Ox 98.2 F 87 12 124/52 L 100 10/13/17 08:02 10/13/17 08:02 10/13/17 08:02 10/13/17 08:02 10/13/17 08:02 Intake & Output 10/12/17 10/13/17 10/14/17 06:59 06:59 06:59 Intake Total 1987 3472 Output Total 1200 Balance 1987 2271 Weight 86.5 kg 88.7 kg General appearance: PRESENT: no acute distress, well-developed, well-nourished Head exam: PRESENT: atraumatic, normocephalic Eye exam: PRESENT: conjunctiva pink, EOMI, PERRLA. ABSENT: scleral icterus Ear exam: PRESENT: normal external ear exam Mouth exam: PRESENT: moist, tongue midline Neck exam: PRESENT: full ROM. ABSENT: carotid bruit, JVD, lymphadenopathy, thyromegaly Respiratory exam: PRESENT: clear to auscultation martínez Cardiovascular exam: PRESENT: RRR. ABSENT: diastolic murmur, rubs, systolic murmur Pulses: PRESENT: normal dorsalis pedis pul, +2 pedal pulses bilateral Vascular exam: PRESENT: normal capillary refill GI/Abdominal exam: PRESENT: normal bowel sounds, soft. ABSENT: distended, guarding, mass, organolmegaly, rebound, tenderness Rectal exam: PRESENT: deferred Extremities exam: ABSENT: pedal edema Neurological exam: PRESENT: alert, awake, oriented to person, oriented to place , oriented to time, oriented to situation, CN II-XII grossly intact. ABSENT: motor sensory deficit Psychiatric exam: PRESENT: appropriate affect, normal mood. ABSENT: homicidal ideation, suicidal ideation Skin exam: PRESENT: dry, intact, warm. ABSENT: cyanosis, rash Results Laboratory Results: 10/11/17 17:30 10/11/17 16:00 10/11/17 10/11/17 10/11/17 16:00 16:00 23:00 Creatine Kinase 43 49 CK-MB (CK-2) 0.40 Troponin I < 0.012 10/11/17 10/12/17 10/12/17 23:00 06:51 06:51 Creatine Kinase 54 CK-MB (CK-2) 0.51 0.63 Troponin I < 0.012 < 0.012 Impressions: Chest X-Ray 10/11/17 14:49 IMPRESSION: NO ACUTE RADIOGRAPHIC FINDING IN THE CHEST. Assessment & Plan - Diagnosis (1) Epigastric pain Is this a current diagnosis for this admission?: Yes Plan: Continues to PPI (2) Intractable vomiting Qualifiers: Vomiting type: unspecified Nausea presence: with nausea Qualified Code(s) : R11.2 - Nausea with vomiting, unspecified Is this a current diagnosis for this admission?: Yes Plan: This post endoscopy currently all stable This with the patient about to reduce the pain medications Advance the diet and stop the IV fluid the patient's daughter the diet (3) Systemic lupus erythematosus Qualifiers: Systemic lupus erythematosus type: unspecified Systemic lupus erythematosus organ involvement: unspecified Qualified Code(s): M32.9 - Systemic lupus erythematosus, unspecified Is this a current diagnosis for this admission?: Yes Plan: a current medication - Time Time Spent with patient: 15-24 minutes Medications reviewed and adjusted accordingly: Yes Anticipated discharge: Home Within: within 24 hours - Inpatient Certification Medical Necessity: Need Close Monitoring Due to Risk of Patient Decompensation, Need For IV Fluids Post Hospital Care: D/C Reinsurance Clerk Documentation - Plan Summary Plan Summary: Advance the diet stop the IV fluid
[2017-10-13] MEDS: ASPIRIN 325 MG TABLET PO SCH (10:45)
[2017-10-13] MEDS: HYDROCHLOROTHIAZIDE 25 MG TABLET PO SCH (10:45)
[2017-10-13] MEDS: LOSARTAN POTASSIUM 50 MG TABLET PO SCH (10:46)
[2017-10-13] MEDS: LANSOPRAZOLE 30 MG TAB.RAP.DR PO SCH (10:46)
[2017-10-13] MEDS: HYDROXYCHLOROQUINE SULFATE 200 MG TABLET PO SCH ×2 (10:47→22:40)
[2017-10-13] MEDS: HYDROCODONE/ACETAMINOPHEN 10-325 MG TABLET PO PRN ×3 (10:47→22:39)
[2017-10-13 14:38] LABS: ANTICHROMATIN AB <0.2 AI (0.0-0.9); JO-1 ANTIBODY (ANACOMP) <0.2 AI (0.0-0.9); RNP AB 2.8 AI (0.0-0.9); SCLERODERMA-70 ANTIBODIES <0.2 AI (0.0-0.9); SJOGREN'S ANTI-SS-B AB <0.2 AI (0.0-0.9); SJOGREN'S SS-A ANTIBODY <0.2 AI (0.0-0.9); SMITH AB ANA <0.2 AI (0.0-0.9)
[2017-10-13] MEDS: ONDANSETRON 4 MG TAB.RAPDIS PO SCH (16:12)
[2017-10-13] MEDS: CYCLOBENZAPRINE HCL 10 MG TABLET PO PRN (20:04)
[2017-10-13] MEDS: ATORVASTATIN CALCIUM 40 MG TABLET PO SCH (22:40)
[2017-10-13] MEDS: PROMETHAZINE HCL INJ 25 MG/1 ML VIAL IV PRN (22:53)
[2017-10-14] MEDS: NORMAL SALINE 1000 ML 1,000 ML IV PRN ×2 (01:53→14:06)
[2017-10-14] MEDS: CYCLOBENZAPRINE HCL 10 MG TABLET PO PRN ×2 (04:11→16:33)
[2017-10-14] MEDS: HYDROCODONE/ACETAMINOPHEN 10-325 MG TABLET PO PRN ×3 (04:38→19:39)
[2017-10-14 04:57] LABS: ABSOLUTE EOSINOPHILS # (AUTO) 0.1 10^3/uL (0.0-0.6); ABSOLUTE LYMPHOCYTES (AUTO) 1.4 10^3/uL (0.5-4.7); ABSOLUTE MONOCYTES (AUTO) 0.8 10^3/uL (0.1-1.4); BASOPHILS % (AUTO) 0.5 % (0-2); EOSINOPHILS % (AUTO) 1.7 % (0-6); HEMATOCRIT 35.2 % (36.0-47.0); MEAN CORPUSCULAR HEMOGLOBIN 27.3 pg (27.0-33.4); MEAN CORPUSCULAR HGB CONC 34.1 g/dL (32.0-36.0); MEAN CORPUSCULAR VOLUME 80 fl (80-97); MONOCYTES % (AUTO) 9.6 % (3-13); PLATELET COUNT 271 10^3/uL (150-450); RED BLOOD COUNT 4.39 10^6/uL (3.72-5.28); SEGMENTED NEUTROPHILS % (AUTO) 71.2 % (42-78); TOTAL CELLS COUNTED % (AUTO) 100 %; WHITE BLOOD COUNT 8.4 10^3/uL (4.0-10.5)
[2017-10-14 05:22] LABS: ANION GAP 8 (5-19); BLOOD UREA NITROGEN 5 mg/dL (7-20); CALCIUM 8.9 mg/dL (8.4-10.2); CARBON DIOXIDE 28 mmol/L (22-30); CHLORIDE 103 mmol/L (98-107); GLUCOSE 102 mg/dL (75-110); POTASSIUM 3.5 mmol/L (3.6-5.0); SODIUM 138.9 mmol/L (137-145)
[2017-10-14] MEDS: DIPHENOXYLATE HCL/ATROP SULF 2.5-0.025 MG TABLET PO SCH ×4 (05:30→23:40)
[2017-10-14] MEDS: LEVOTHYROXINE SODIUM 0.1 MG TABLET PO SCH (05:30)
[2017-10-14] MEDS: GABAPENTIN 300 MG CAPSULE PO SCH ×3 (05:31→21:26)
[2017-10-14] MEDS: LANSOPRAZOLE 30 MG TAB.RAP.DR PO SCH (07:55)
[2017-10-14] MEDS: PROMETHAZINE HCL INJ 25 MG/1 ML VIAL IV PRN ×2 (07:55→21:25)
[2017-10-14] MEDS: HYDROCHLOROTHIAZIDE 25 MG TABLET PO SCH (09:47)
[2017-10-14] MEDS: ASPIRIN 325 MG TABLET PO SCH (09:47)
[2017-10-14] MEDS: HYDROXYCHLOROQUINE SULFATE 200 MG TABLET PO SCH ×2 (09:47→21:28)
[2017-10-14] MEDS: LOSARTAN POTASSIUM 50 MG TABLET PO SCH (09:48)
[2017-10-14 10:46] LABS: DNA DOUBLE STRAND ANTIBODY ANA <1 IU/mL (0-9)
[2017-10-14] MEDS ORDERED: MAG HYDROX/AL HYDROX/SIMETH SUSP 30 ML UDCUP PO PRN (10:49)
[2017-10-14] MEDS ORDERED: POTASSI CL 20 MEQ/50 ML RIDER 20 MEQ/50 ML RTUPB IV ONE (10:50)
--- NOTE | 2017-10-14 11:31 | PDOC PROGRESS REPORT ---
Subjective Progress Note for:: 10/14/17 Subjective:: Patient is currently doing fair Still complains some nausea vomiting still unable to tolerate the solid food but able to tolerate the liquid diets Patient's urine culture is positive for the gram-positive Patient's denied any chest pain denied any shortness of the breath still have a chronic pain Reason For Visit: PERSISTANT VOMITING Physical Exam Vital Signs: Temp Pulse Resp BP Pulse Ox 97.9 F 92 20 144/87 H 97 10/14/17 08:19 10/14/17 08:19 10/14/17 08:19 10/14/17 08:19 10/14/17 08:19 Intake & Output 10/13/17 10/14/17 10/15/17 06:59 06:59 06:59 Intake Total 3472 2994 Output Total 1200 4450 Balance 2272 -1456 Weight 88.7 kg 90.5 kg General appearance: PRESENT: no acute distress, well-developed, well-nourished Head exam: PRESENT: atraumatic, normocephalic Eye exam: PRESENT: conjunctiva pink, EOMI, PERRLA. ABSENT: scleral icterus Ear exam: PRESENT: normal external ear exam Mouth exam: PRESENT: moist, tongue midline Neck exam: PRESENT: full ROM. ABSENT: carotid bruit, JVD, lymphadenopathy, thyromegaly Respiratory exam: PRESENT: clear to auscultation martínez Cardiovascular exam: PRESENT: RRR. ABSENT: diastolic murmur, rubs, systolic murmur Pulses: PRESENT: normal dorsalis pedis pul, +2 pedal pulses bilateral Vascular exam: PRESENT: normal capillary refill GI/Abdominal exam: PRESENT: normal bowel sounds, soft. ABSENT: distended, guarding, mass, organolmegaly, rebound, tenderness Rectal exam: PRESENT: deferred Extremities exam: ABSENT: pedal edema Neurological exam: PRESENT: alert, awake, oriented to person, oriented to place , oriented to time, oriented to situation, CN II-XII grossly intact. ABSENT: motor sensory deficit Psychiatric exam: PRESENT: appropriate affect, normal mood. ABSENT: homicidal ideation, suicidal ideation Skin exam: PRESENT: dry, intact, warm. ABSENT: cyanosis, rash Results Laboratory Results: 10/14/17 04:19 10/14/17 04:19 10/14/17 10/14/17 04:19 04:19 WBC 8.4 RBC 4.39 Hgb 12.0 Hct 35.2 L MCV 80 MCH 27.3 MCHC 34.1 RDW 14.0 Plt Count 271 Seg Neutrophils % 71.2 Lymphocytes % 17.0 Monocytes % 9.6 Eosinophils % 1.7 Basophils % 0.5 Absolute Neutrophils 6.0 Absolute Lymphocytes 1.4 Absolute Monocytes 0.8 Absolute Eosinophils 0.1 Absolute Basophils 0.0 Sodium 138.9 Potassium 3.5 L Chloride 103 Carbon Dioxide 28 Anion Gap 8 BUN 5 L Creatinine 0.98 Est GFR ( Amer) > 60 Est GFR (Non-Af Amer) 57 L Glucose 102 Calcium 8.9 10/11/17 10/11/17 10/11/17 16:00 16:00 23:00 Creatine Kinase 43 49 CK-MB (CK-2) 0.40 Troponin I < 0.012 10/11/17 10/12/17 10/12/17 23:00 06:51 06:51 Creatine Kinase 54 CK-MB (CK-2) 0.51 0.63 Troponin I < 0.012 < 0.012 Impressions: Chest X-Ray 10/11/17 14:49 IMPRESSION: NO ACUTE RADIOGRAPHIC FINDING IN THE CHEST. Assessment & Plan - Diagnosis (1) Epigastric pain Is this a current diagnosis for this admission?: Yes Plan: Continues to PPI (2) Intractable vomiting Qualifiers: Vomiting type: unspecified Nausea presence: with nausea Qualified Code(s) : R11.2 - Nausea with vomiting, unspecified Is this a current diagnosis for this admission?: Yes Plan: This post endoscopy currently all stable This with the patient about to reduce the pain medications Advance the diet and stop the IV fluid the patient's daughter the diet (3) Systemic lupus erythematosus Qualifiers: Systemic lupus erythematosus type: unspecified Systemic lupus erythematosus organ involvement: unspecified Qualified Code(s): M32.9 - Systemic lupus erythematosus, unspecified Is this a current diagnosis for this admission?: Yes Plan: a current medication - Time Time Spent with patient: 15-24 minutes Medications reviewed and adjusted accordingly: Yes Anticipated discharge: Home Within: Other - Inpatient Certification Medical Necessity: Need Close Monitoring Due to Risk of Patient Decompensation, Need For IV Fluids Post Hospital Care: D/C Leather [employer]ater Documentation - Plan Summary Plan Summary: Continues to current medications
[2017-10-14] MEDS: GUAIFENESIN 600 MG TABLET.SA PO SCH (21:26)
[2017-10-14] MEDS: ATORVASTATIN CALCIUM 40 MG TABLET PO SCH (21:26)
[2017-10-15] MEDS: HYDROCODONE/ACETAMINOPHEN 10-325 MG TABLET PO PRN ×2 (03:19→11:31)
[2017-10-15] MEDS: ONDANSETRON 4 MG TAB.RAPDIS PO SCH ×2 (03:20→20:19)
[2017-10-15 05:23] LABS: ANION GAP 10 (5-19); BLOOD UREA NITROGEN 5 mg/dL (7-20); CALCIUM 9.1 mg/dL (8.4-10.2); CARBON DIOXIDE 25 mmol/L (22-30); CHLORIDE 103 mmol/L (98-107); GLUCOSE 106 mg/dL (75-110); SODIUM 138.2 mmol/L (137-145)
[2017-10-15] MEDS: DIPHENOXYLATE HCL/ATROP SULF 2.5-0.025 MG TABLET PO SCH ×3 (05:53→17:22)
[2017-10-15] MEDS: LEVOTHYROXINE SODIUM 0.1 MG TABLET PO SCH (05:53)
[2017-10-15] MEDS: GABAPENTIN 300 MG CAPSULE PO SCH ×3 (05:54→21:28)
[2017-10-15] MEDS: NORMAL SALINE 1000 ML 1,000 ML IV PRN (05:56)
[2017-10-15] MEDS: LANSOPRAZOLE 30 MG TAB.RAP.DR PO SCH (09:00)
[2017-10-15] MEDS: PROMETHAZINE HCL INJ 25 MG/1 ML VIAL IV PRN ×2 (09:00→17:22)
[2017-10-15] MEDS: HYDROCHLOROTHIAZIDE 25 MG TABLET PO SCH (09:55)
[2017-10-15] MEDS: HYDROXYCHLOROQUINE SULFATE 200 MG TABLET PO SCH ×2 (09:55→21:28)
[2017-10-15] MEDS: ASPIRIN 325 MG TABLET PO SCH (09:55)
[2017-10-15] MEDS: GUAIFENESIN 600 MG TABLET.SA PO SCH ×2 (09:55→21:28)
[2017-10-15] MEDS: LOSARTAN POTASSIUM 50 MG TABLET PO SCH (09:56)
[2017-10-15] MEDS: HYDROMORPHONE HCL INJ/PF 2 MG/ML AMPULE IV PRN (20:18)
[2017-10-15] MEDS: ATORVASTATIN CALCIUM 40 MG TABLET PO SCH (21:27)
[2017-10-15] MEDS: CIPROFLOXACIN 400 MG/D5W RTU 400 MG/200 ML RTUPB IV SCH (21:29)
--- NOTE | 2017-10-15 22:19 | PDOC PROGRESS REPORT ---
Subjective Progress Note for:: 10/15/17 Subjective:: Patient still continues to have episodes of vomiting associated with urinary symptoms, she has a history of recurrent UTI Reason For Visit: EPIGASTRIC PAIN,INTRACTABLE VOMITING,SLE Physical Exam Vital Signs: Temp Pulse Resp BP Pulse Ox 98.4 F 91 20 127/90 H 100 10/15/17 19:50 10/15/17 19:50 10/15/17 19:50 10/15/17 19:50 10/15/17 19:50 Intake & Output 10/14/17 10/15/17 10/16/17 06:59 06:59 06:59 Intake Total 2994 3516 1725 Output Total 4450 3600 1600 Balance -1456 -84 125 Weight 90.5 kg 91.2 kg General appearance: PRESENT: no acute distress Eye exam: PRESENT: PERRLA Respiratory exam: PRESENT: clear to auscultation martínez Cardiovascular exam: PRESENT: +S1, +S2 GI/Abdominal exam: PRESENT: soft Neurological exam: PRESENT: alert Results Laboratory Results: 10/14/17 04:19 10/15/17 04:17 10/15/17 04:17 Sodium 138.2 Potassium 4.0 Chloride 103 Carbon Dioxide 25 Anion Gap 10 BUN 5 L Creatinine 0.83 Est GFR ( Amer) > 60 Est GFR (Non-Af Amer) > 60 Glucose 106 Calcium 9.1 10/11/17 10/11/17 10/11/17 16:00 16:00 23:00 Creatine Kinase 43 49 CK-MB (CK-2) 0.40 Troponin I < 0.012 10/11/17 10/12/17 10/12/17 23:00 06:51 06:51 Creatine Kinase 54 CK-MB (CK-2) 0.51 0.63 Troponin I < 0.012 < 0.012 Impressions: Chest X-Ray 10/11/17 14:49 IMPRESSION: NO ACUTE RADIOGRAPHIC FINDING IN THE CHEST. Assessment & Plan - Diagnosis (1) Intractable vomiting Qualifiers: Vomiting type: unspecified Nausea presence: with nausea Qualified Code(s) : R11.2 - Nausea with vomiting, unspecified Is this a current diagnosis for this admission?: Yes (2) Systemic lupus erythematosus Qualifiers: Systemic lupus erythematosus type: unspecified Systemic lupus erythematosus organ involvement: unspecified Qualified Code(s): M32.9 - Systemic lupus erythematosus, unspecified Is this a current diagnosis for this admission?: Yes (3) Gastritis Qualifiers: Gastritis type: unspecified gastritis Chronicity: acute Gastritis bleeding: without bleeding Qualified Code(s): K29.00 - Acute gastritis without bleeding Is this a current diagnosis for this admission?: Yes
[2017-10-16] MEDS: HYDROMORPHONE HCL INJ/PF 2 MG/ML AMPULE IV PRN ×4 (00:31→18:47)
[2017-10-16] MEDS: PROMETHAZINE HCL INJ 25 MG/1 ML VIAL IV PRN ×2 (00:31→11:26)
[2017-10-16] MEDS: DIPHENOXYLATE HCL/ATROP SULF 2.5-0.025 MG TABLET PO SCH ×5 (00:38→23:12)
[2017-10-16] MEDS: HYDROCODONE/ACETAMINOPHEN 10-325 MG TABLET PO PRN ×2 (04:08→22:16)
[2017-10-16] MEDS: ONDANSETRON 4 MG TAB.RAPDIS PO SCH ×2 (04:09→18:47)
[2017-10-16 05:45] LABS: ANION GAP 10 (5-19); BLOOD UREA NITROGEN 5 mg/dL (7-20); CALCIUM 9.2 mg/dL (8.4-10.2); CARBON DIOXIDE 23 mmol/L (22-30); CHLORIDE 104 mmol/L (98-107); GLUCOSE 147 mg/dL (75-110); POTASSIUM 3.6 mmol/L (3.6-5.0); SODIUM 137.2 mmol/L (137-145)
[2017-10-16] MEDS: GABAPENTIN 300 MG CAPSULE PO SCH ×3 (06:22→22:16)
[2017-10-16] MEDS: LEVOTHYROXINE SODIUM 0.1 MG TABLET PO SCH (06:23)
[2017-10-16] MEDS: LANSOPRAZOLE 30 MG TAB.RAP.DR PO SCH (07:43)
[2017-10-16] MEDS: LOSARTAN POTASSIUM 50 MG TABLET PO SCH (11:26)
[2017-10-16] MEDS: ASPIRIN 325 MG TABLET PO SCH (11:26)
[2017-10-16] MEDS: GUAIFENESIN 600 MG TABLET.SA PO SCH ×2 (11:27→22:17)
[2017-10-16] MEDS: HYDROCHLOROTHIAZIDE 25 MG TABLET PO SCH (11:27)
[2017-10-16] MEDS: CIPROFLOXACIN 400 MG/D5W RTU 400 MG/200 ML RTUPB IV SCH ×2 (11:27→22:13)
[2017-10-16] MEDS: HYDROXYCHLOROQUINE SULFATE 200 MG TABLET PO SCH ×2 (11:33→22:20)
[2017-10-16] MEDS: NORMAL SALINE 1000 ML 1,000 ML IV PRN (14:51)
--- NOTE | 2017-10-16 20:55 | PDOC PROGRESS REPORT ---
Subjective Progress Note for:: 10/16/17 Subjective:: Patient is seen by the bedside, no new complaints Reason For Visit: EPIGASTRIC PAIN,INTRACTABLE VOMITING,SLE Physical Exam Vital Signs: Temp Pulse Resp BP Pulse Ox 98.0 F 90 20 137/62 H 98 10/16/17 16:48 10/16/17 19:00 10/16/17 16:48 10/16/17 16:48 10/16/17 16:48 Intake & Output 10/15/17 10/16/17 10/17/17 06:59 06:59 06:59 Intake Total 3516 3399 2120 Output Total 3600 3000 1550 Balance -84 399 570 Weight 91.2 kg General appearance: PRESENT: no acute distress Eye exam: PRESENT: PERRLA Respiratory exam: PRESENT: clear to auscultation martínez Cardiovascular exam: PRESENT: +S1, +S2 Results Laboratory Results: 10/14/17 04:19 10/16/17 04:52 10/16/17 04:52 Sodium 137.2 Potassium 3.6 Chloride 104 Carbon Dioxide 23 Anion Gap 10 BUN 5 L Creatinine 0.83 Est GFR ( Amer) > 60 Est GFR (Non-Af Amer) > 60 Glucose 147 H Calcium 9.2 10/11/17 17:30 Blood Blood Culture - Final NO GROWTH IN 5 DAYS 10/11/17 16:00 Blood Blood Culture - Final NO GROWTH IN 5 DAYS 10/11/17 10/11/17 10/11/17 16:00 16:00 23:00 Creatine Kinase 43 49 CK-MB (CK-2) 0.40 Troponin I < 0.012 10/11/17 10/12/17 10/12/17 23:00 06:51 06:51 Creatine Kinase 54 CK-MB (CK-2) 0.51 0.63 Troponin I < 0.012 < 0.012 Impressions: Chest X-Ray 10/11/17 14:49 IMPRESSION: NO ACUTE RADIOGRAPHIC FINDING IN THE CHEST. Assessment & Plan - Diagnosis (1) Intractable vomiting Qualifiers: Vomiting type: unspecified Nausea presence: with nausea Qualified Code(s) : R11.2 - Nausea with vomiting, unspecified Is this a current diagnosis for this admission?: Yes (2) Systemic lupus erythematosus Qualifiers: Systemic lupus erythematosus type: unspecified Systemic lupus erythematosus organ involvement: unspecified Qualified Code(s): M32.9 - Systemic lupus erythematosus, unspecified Is this a current diagnosis for this admission?: Yes (3) Urinary tract infection Qualifiers: Urinary tract infection type: site unspecified Hematuria presence: without hematuria Qualified Code(s): N39.0 - Urinary tract infection, site not specified Is this a current diagnosis for this admission?: Yes (4) Gastritis Qualifiers: Gastritis type: unspecified gastritis Chronicity: acute Gastritis bleeding: without bleeding Qualified Code(s): K29.00 - Acute gastritis without bleeding Is this a current diagnosis for this admission?: Yes
[2017-10-16] MEDS: ATORVASTATIN CALCIUM 40 MG TABLET PO SCH (22:17)
[2017-10-17] MEDS: PROMETHAZINE HCL INJ 25 MG/1 ML VIAL IV PRN ×4 (00:57→21:10)
[2017-10-17] MEDS: HYDROMORPHONE HCL INJ/PF 2 MG/ML AMPULE IV PRN ×5 (00:57→23:40)
[2017-10-17] MEDS: DIPHENOXYLATE HCL/ATROP SULF 2.5-0.025 MG TABLET PO SCH ×4 (05:20→23:40)
[2017-10-17] MEDS: NORMAL SALINE 1000 ML 1,000 ML IV PRN ×2 (05:21→21:10)
[2017-10-17] MEDS: HYDROCODONE/ACETAMINOPHEN 10-325 MG TABLET PO PRN (05:21)
[2017-10-17] MEDS: LEVOTHYROXINE SODIUM 0.1 MG TABLET PO SCH (05:21)
[2017-10-17] MEDS: GABAPENTIN 300 MG CAPSULE PO SCH ×3 (05:22→21:10)
[2017-10-17] MEDS: LANSOPRAZOLE 30 MG TAB.RAP.DR PO SCH (08:11)
[2017-10-17] MEDS: CIPROFLOXACIN 400 MG/D5W RTU 400 MG/200 ML RTUPB IV SCH ×2 (12:00→21:10)
[2017-10-17] MEDS: HYDROXYCHLOROQUINE SULFATE 200 MG TABLET PO SCH ×2 (12:00→21:10)
[2017-10-17] MEDS: ASPIRIN 325 MG TABLET PO SCH (12:00)
[2017-10-17] MEDS: HYDROCHLOROTHIAZIDE 25 MG TABLET PO SCH (12:01)
[2017-10-17] MEDS: GUAIFENESIN 600 MG TABLET.SA PO SCH ×2 (12:01→21:10)
[2017-10-17] MEDS: LOSARTAN POTASSIUM 50 MG TABLET PO SCH (12:04)
--- NOTE | 2017-10-17 20:35 | PDOC PROGRESS REPORT ---
Subjective Progress Note for:: 10/17/17 Subjective:: Patient was seen by the bedside she stated she vomited earlier today, she also complained of right flank pain that she thought could be from kidney stone because she has history of kidney stone previously Reason For Visit: EPIGASTRIC PAIN,INTRACTABLE VOMITING,SLE Physical Exam Vital Signs: Temp Pulse Resp BP Pulse Ox 98.5 F 92 18 138/69 H 98 10/17/17 15:35 10/17/17 15:35 10/17/17 15:35 10/17/17 15:35 10/17/17 15:35 Intake & Output 10/16/17 10/17/17 10/18/17 06:59 06:59 06:59 Intake Total 3399 4057 1064 Output Total 3000 2550 1800 Balance 399 1507 -736 Weight 92.1 kg General appearance: PRESENT: no acute distress Eye exam: PRESENT: PERRLA Respiratory exam: PRESENT: clear to auscultation martínez Cardiovascular exam: PRESENT: +S1, +S2 GI/Abdominal exam: PRESENT: soft Neurological exam: PRESENT: alert Results Laboratory Results: 10/14/17 04:19 10/16/17 04:52 10/11/17 17:30 Blood Blood Culture - Final NO GROWTH IN 5 DAYS 10/11/17 16:00 Blood Blood Culture - Final NO GROWTH IN 5 DAYS 10/11/17 10/11/17 10/11/17 16:00 16:00 23:00 Creatine Kinase 43 49 CK-MB (CK-2) 0.40 Troponin I < 0.012 10/11/17 10/12/17 10/12/17 23:00 06:51 06:51 Creatine Kinase 54 CK-MB (CK-2) 0.51 0.63 Troponin I < 0.012 < 0.012 Impressions: Chest X-Ray 10/11/17 14:49 IMPRESSION: NO ACUTE RADIOGRAPHIC FINDING IN THE CHEST. Assessment & Plan - Diagnosis (1) Intractable vomiting Qualifiers: Vomiting type: unspecified Nausea presence: with nausea Qualified Code(s) : R11.2 - Nausea with vomiting, unspecified Is this a current diagnosis for this admission?: Yes (2) Systemic lupus erythematosus Qualifiers: Systemic lupus erythematosus type: unspecified Systemic lupus erythematosus organ involvement: unspecified Qualified Code(s): M32.9 - Systemic lupus erythematosus, unspecified Is this a current diagnosis for this admission?: Yes (3) Urinary tract infection Qualifiers: Urinary tract infection type: site unspecified Hematuria presence: without hematuria Qualified Code(s): N39.0 - Urinary tract infection, site not specified Is this a current diagnosis for this admission?: Yes (4) Gastritis Qualifiers: Gastritis type: unspecified gastritis Chronicity: acute Gastritis bleeding: without bleeding Qualified Code(s): K29.00 - Acute gastritis without bleeding Is this a current diagnosis for this admission?: Yes
[2017-10-17] MEDS: ATORVASTATIN CALCIUM 40 MG TABLET PO SCH (21:10)
[2017-10-18] MEDS: HYDROMORPHONE HCL INJ/PF 2 MG/ML AMPULE IV PRN ×5 (03:50→23:32)
[2017-10-18] MEDS: PROMETHAZINE HCL INJ 25 MG/1 ML VIAL IV PRN ×3 (03:52→19:02)
[2017-10-18] MEDS: GABAPENTIN 300 MG CAPSULE PO SCH ×3 (05:18→21:28)
[2017-10-18] MEDS: DIPHENOXYLATE HCL/ATROP SULF 2.5-0.025 MG TABLET PO SCH ×4 (05:18→23:07)
[2017-10-18] MEDS: LEVOTHYROXINE SODIUM 0.1 MG TABLET PO SCH (05:19)
[2017-10-18] MEDS: LANSOPRAZOLE 30 MG TAB.RAP.DR PO SCH (07:55)
[2017-10-18] MEDS: LOSARTAN POTASSIUM 50 MG TABLET PO SCH (11:26)
[2017-10-18] MEDS: GUAIFENESIN 600 MG TABLET.SA PO SCH ×2 (11:27→21:29)
[2017-10-18] MEDS: CIPROFLOXACIN 400 MG/D5W RTU 400 MG/200 ML RTUPB IV SCH (11:27)
[2017-10-18] MEDS: HYDROCHLOROTHIAZIDE 25 MG TABLET PO SCH (11:27)
[2017-10-18] MEDS: ASPIRIN 325 MG TABLET PO SCH (11:27)
[2017-10-18] MEDS: HYDROXYCHLOROQUINE SULFATE 200 MG TABLET PO SCH ×2 (11:27→21:29)
[2017-10-18] MEDS: NORMAL SALINE 1000 ML 1,000 ML IV PRN (14:03)
[2017-10-18] MEDS: ATORVASTATIN CALCIUM 40 MG TABLET PO SCH (21:28)
[2017-10-18] MEDS ORDERED: VANCOMYCIN HCL 0 MG in DEXTROSE 5%-WATER 250 ML IV NR (21:30)
--- NOTE | 2017-10-18 21:30 | PDOC PROGRESS REPORT ---
Subjective Progress Note for:: 10/18/17 Subjective:: She was seen by the bedside, she continues to complain of dysuria and vomiting, the urine culture grew enterococcus faecalis resistant to fluoroquinolone sensitive to nitrofurantoin and vancomycin. Patient presently on Cipro, this will be discontinued she also cannot take nitrofurantoin because she is allergic to weight unfortunately the only medication she can use his vancomycin which is only in the IV form. She continues to require Dilaudid for control pain. The colonic count for the E faecalis is not significant but because she is symptomatic with dysuria, abdominal pain or vomiting it is prudent that she be treated with vancomycin. Reason For Visit: EPIGASTRIC PAIN,INTRACTABLE VOMITING,SLE Physical Exam Vital Signs: Temp Pulse Resp BP Pulse Ox 98.4 F 82 16 121/61 98 10/18/17 15:53 10/18/17 15:53 10/18/17 15:53 10/18/17 15:53 10/18/17 15:53 Intake & Output 10/17/17 10/18/17 10/19/17 06:59 06:59 06:59 Intake Total 4057 2714 1850 Output Total 2550 3400 1600 Balance 1507 -686 250 Weight 92.1 kg 91.8 kg General appearance: PRESENT: no acute distress Eye exam: PRESENT: PERRLA Respiratory exam: PRESENT: clear to auscultation martínez Cardiovascular exam: PRESENT: +S1, +S2 GI/Abdominal exam: PRESENT: soft Neurological exam: PRESENT: alert, CN II-XII grossly intact Results Laboratory Results: 10/14/17 04:19 10/16/17 04:52 10/11/17 10/11/17 10/11/17 16:00 16:00 23:00 Creatine Kinase 43 49 CK-MB (CK-2) 0.40 Troponin I < 0.012 10/11/17 10/12/17 10/12/17 23:00 06:51 06:51 Creatine Kinase 54 CK-MB (CK-2) 0.51 0.63 Troponin I < 0.012 < 0.012 Impressions: Chest X-Ray 10/11/17 14:49 IMPRESSION: NO ACUTE RADIOGRAPHIC FINDING IN THE CHEST. Assessment & Plan - Diagnosis (1) Intractable vomiting Qualifiers: Vomiting type: unspecified Nausea presence: with nausea Qualified Code(s) : R11.2 - Nausea with vomiting, unspecified Is this a current diagnosis for this admission?: Yes (2) Systemic lupus erythematosus Qualifiers: Systemic lupus erythematosus type: unspecified Systemic lupus erythematosus organ involvement: unspecified Qualified Code(s): M32.9 - Systemic lupus erythematosus, unspecified Is this a current diagnosis for this admission?: Yes (3) Urinary tract infection Qualifiers: Urinary tract infection type: site unspecified Hematuria presence: without hematuria Qualified Code(s): N39.0 - Urinary tract infection, site not specified Is this a current diagnosis for this admission?: Yes (4) Gastritis Qualifiers: Gastritis type: unspecified gastritis Chronicity: acute Gastritis bleeding: without bleeding Qualified Code(s): K29.00 - Acute gastritis without bleeding Is this a current diagnosis for this admission?: Yes (5) Urinary tract infection due to Enterococcus Is this a current diagnosis for this admission?: Yes Plan: Start vancomycin
[2017-10-18] MEDS: VANCOMYCIN HCL 750 MG in DEXTROSE 5%-WATER 250 ML IV SCH (22:13)
[2017-10-18] MEDS: ONDANSETRON 4 MG TAB.RAPDIS PO SCH (23:07)
[2017-10-19] MEDS: HYDROMORPHONE HCL INJ/PF 2 MG/ML AMPULE IV PRN ×5 (03:19→20:10)
[2017-10-19] MEDS: PROMETHAZINE HCL INJ 25 MG/1 ML VIAL IV PRN ×3 (03:19→22:44)
[2017-10-19] MEDS: GABAPENTIN 300 MG CAPSULE PO SCH ×3 (05:29→22:40)
[2017-10-19] MEDS: LEVOTHYROXINE SODIUM 0.1 MG TABLET PO SCH (05:30)
[2017-10-19] MEDS: LANSOPRAZOLE 30 MG TAB.RAP.DR PO SCH (07:55)
[2017-10-19] MEDS: LOSARTAN POTASSIUM 50 MG TABLET PO SCH (09:16)
[2017-10-19] MEDS: HYDROCHLOROTHIAZIDE 25 MG TABLET PO SCH (09:16)
[2017-10-19] MEDS: GUAIFENESIN 600 MG TABLET.SA PO SCH ×2 (09:17→22:40)
[2017-10-19] MEDS: ONDANSETRON 4 MG TAB.RAPDIS PO SCH (09:17)
[2017-10-19] MEDS: ASPIRIN 325 MG TABLET PO SCH (09:17)
[2017-10-19] MEDS: HYDROXYCHLOROQUINE SULFATE 200 MG TABLET PO SCH ×2 (09:17→22:40)
[2017-10-19] MEDS: VANCOMYCIN HCL 750 MG in DEXTROSE 5%-WATER 250 ML IV SCH ×2 (11:36→23:53)
--- NOTE | 2017-10-19 18:12 | PDOC PROGRESS REPORT ---
Subjective Progress Note for:: 10/19/17 Subjective:: Patient with enterococcus faecalis UTI sensitive to vancomycin and nitrofurantoin, patient cannot take nitrofurantoin because of allergy. She will continue antibiotic for 7 days before discharge. She continues to complain of dysuria, urinary urgency and frequency Reason For Visit: EPIGASTRIC PAIN,INTRACTABLE VOMITING,SLE Physical Exam Vital Signs: Temp Pulse Resp BP Pulse Ox 98.7 F 83 16 127/61 H 99 10/19/17 07:34 10/19/17 14:00 10/19/17 07:34 10/19/17 07:34 10/19/17 07:34 Intake & Output 10/18/17 10/19/17 10/20/17 06:59 06:59 06:59 Intake Total 2714 2773 Output Total 3400 1600 Balance -686 1173 Weight 91.8 kg General appearance: PRESENT: no acute distress, well-developed, well-nourished Head exam: PRESENT: atraumatic, normocephalic Eye exam: PRESENT: conjunctiva pink, EOMI, PERRLA Neck exam: PRESENT: full ROM Respiratory exam: PRESENT: clear to auscultation martínez Cardiovascular exam: PRESENT: RRR, +S1, +S2 Vascular exam: PRESENT: normal capillary refill GI/Abdominal exam: PRESENT: normal bowel sounds, soft Rectal exam: PRESENT: deferred Neurological exam: PRESENT: alert Psychiatric exam: PRESENT: appropriate affect, normal mood Skin exam: PRESENT: dry, intact, warm. ABSENT: cyanosis, rash Results Laboratory Results: 10/14/17 04:19 10/16/17 04:52 10/11/17 10/11/17 10/11/17 16:00 16:00 23:00 Creatine Kinase 43 49 CK-MB (CK-2) 0.40 Troponin I < 0.012 10/11/17 10/12/17 10/12/17 23:00 06:51 06:51 Creatine Kinase 54 CK-MB (CK-2) 0.51 0.63 Troponin I < 0.012 < 0.012 Impressions: Chest X-Ray 10/11/17 14:49 IMPRESSION: NO ACUTE RADIOGRAPHIC FINDING IN THE CHEST. Assessment & Plan - Diagnosis (1) Intractable vomiting Qualifiers: Vomiting type: unspecified Nausea presence: with nausea Qualified Code(s) : R11.2 - Nausea with vomiting, unspecified Is this a current diagnosis for this admission?: Yes (2) Systemic lupus erythematosus Qualifiers: Systemic lupus erythematosus type: unspecified Systemic lupus erythematosus organ involvement: unspecified Qualified Code(s): M32.9 - Systemic lupus erythematosus, unspecified Is this a current diagnosis for this admission?: Yes (3) Urinary tract infection Qualifiers: Urinary tract infection type: site unspecified Hematuria presence: without hematuria Qualified Code(s): N39.0 - Urinary tract infection, site not specified Is this a current diagnosis for this admission?: Yes (4) Gastritis Qualifiers: Gastritis type: unspecified gastritis Chronicity: acute Gastritis bleeding: without bleeding Qualified Code(s): K29.00 - Acute gastritis without bleeding Is this a current diagnosis for this admission?: Yes (5) Urinary tract infection due to Enterococcus Is this a current diagnosis for this admission?: Yes - Plan Summary Plan Summary: Continue IV antibiotic
[2017-10-19] MEDS: ATORVASTATIN CALCIUM 40 MG TABLET PO SCH (22:40)
[2017-10-20] MEDS: HYDROMORPHONE HCL INJ/PF 2 MG/ML AMPULE IV PRN ×5 (00:25→21:29)
[2017-10-20] MEDS: ONDANSETRON 4 MG TAB.RAPDIS PO SCH (04:22)
[2017-10-20] MEDS: LEVOTHYROXINE SODIUM 0.1 MG TABLET PO SCH (06:11)
[2017-10-20] MEDS: GABAPENTIN 300 MG CAPSULE PO SCH ×3 (06:11→21:29)
[2017-10-20] MEDS: HYDROCODONE/ACETAMINOPHEN 10-325 MG TABLET PO PRN (06:12)
[2017-10-20] MEDS: PROMETHAZINE HCL INJ 25 MG/1 ML VIAL IV PRN ×3 (09:52→22:30)
[2017-10-20] MEDS: LANSOPRAZOLE 30 MG TAB.RAP.DR PO SCH (09:52)
[2017-10-20] MEDS: HYDROCHLOROTHIAZIDE 25 MG TABLET PO SCH (09:53)
[2017-10-20] MEDS: LOSARTAN POTASSIUM 50 MG TABLET PO SCH (09:53)
[2017-10-20] MEDS: HYDROXYCHLOROQUINE SULFATE 200 MG TABLET PO SCH ×2 (09:53→21:44)
[2017-10-20] MEDS: GUAIFENESIN 600 MG TABLET.SA PO SCH ×2 (09:53→21:30)
[2017-10-20] MEDS: NORMAL SALINE 1000 ML 1,000 ML IV PRN (09:54)
[2017-10-20] MEDS: ASPIRIN 325 MG TABLET PO SCH (10:01)
[2017-10-20 11:53] LABS: VANCOMYCIN,TROUGH 11.9 ug/mL (5.0-20.0)
[2017-10-20] MEDS: VANCOMYCIN HCL 750 MG in DEXTROSE 5%-WATER 250 ML IV SCH ×2 (12:33→23:59)
--- NOTE | 2017-10-20 17:41 | PDOC PROGRESS REPORT ---
Subjective Progress Note for:: 10/20/17 Subjective:: She was seen by the bedside, still complaining of dysuria, urinary incontinence Reason For Visit: EPIGASTRIC PAIN,INTRACTABLE VOMITING,SLE Physical Exam Vital Signs: Temp Pulse Resp BP Pulse Ox 97.8 F 88 16 100/53 L 97 10/20/17 11:58 10/20/17 14:00 10/20/17 11:58 10/20/17 11:58 10/20/17 11:58 Intake & Output 10/19/17 10/20/17 10/21/17 06:59 06:59 06:59 Intake Total 2773 3745 150 Output Total 1600 1300 900 Balance 1173 2445 -750 Weight 90.8 kg General appearance: PRESENT: no acute distress, well-developed, well-nourished Head exam: PRESENT: atraumatic, normocephalic Eye exam: PRESENT: conjunctiva pink, EOMI, PERRLA Ear exam: PRESENT: normal external ear exam Mouth exam: PRESENT: moist, tongue midline Neck exam: PRESENT: full ROM Respiratory exam: PRESENT: clear to auscultation martínez Cardiovascular exam: PRESENT: RRR, +S1, +S2 Vascular exam: PRESENT: normal capillary refill GI/Abdominal exam: PRESENT: normal bowel sounds, soft Rectal exam: PRESENT: deferred Neurological exam: PRESENT: alert Psychiatric exam: PRESENT: appropriate affect, normal mood Skin exam: PRESENT: dry, intact, warm. ABSENT: cyanosis, rash Results Laboratory Results: 10/14/17 04:19 10/20/17 10:43 10/20/17 10:43 Creatinine 0.97 Est GFR ( Amer) > 60 Est GFR (Non-Af Amer) 58 L 10/11/17 10/11/17 10/11/17 16:00 16:00 23:00 Creatine Kinase 43 49 CK-MB (CK-2) 0.40 Troponin I < 0.012 10/11/17 10/12/17 10/12/17 23:00 06:51 06:51 Creatine Kinase 54 CK-MB (CK-2) 0.51 0.63 Troponin I < 0.012 < 0.012 Impressions: Chest X-Ray 10/11/17 14:49 IMPRESSION: NO ACUTE RADIOGRAPHIC FINDING IN THE CHEST. Assessment & Plan - Diagnosis (1) Urinary tract infection due to Enterococcus Is this a current diagnosis for this admission?: Yes Plan: She will continue IV vancomycin for E faecalis UTI (2) Intractable vomiting Qualifiers: Vomiting type: unspecified Nausea presence: with nausea Qualified Code(s) : R11.2 - Nausea with vomiting, unspecified Is this a current diagnosis for this admission?: Yes (3) Systemic lupus erythematosus Qualifiers: Systemic lupus erythematosus type: unspecified Systemic lupus erythematosus organ involvement: unspecified Qualified Code(s): M32.9 - Systemic lupus erythematosus, unspecified Is this a current diagnosis for this admission?: Yes (4) Urinary tract infection Qualifiers: Urinary tract infection type: site unspecified Hematuria presence: without hematuria Qualified Code(s): N39.0 - Urinary tract infection, site not specified Is this a current diagnosis for this admission?: Yes (5) Gastritis Qualifiers: Gastritis type: unspecified gastritis Chronicity: acute Gastritis bleeding: without bleeding Qualified Code(s): K29.00 - Acute gastritis without bleeding Is this a current diagnosis for this admission?: Yes
[2017-10-20] MEDS ORDERED: NYSTATIN TOPICAL POWDER 15 GM TP PRN (17:52)
[2017-10-20] MEDS ORDERED: GUAIFENESIN SYRP 200 MG/10 ML UDC PO PRN (17:52)
[2017-10-20] MEDS ORDERED: HYDROCODONE/ACETAMINOPHEN 10-325 MG TABLET PO PRN (20:36)
[2017-10-20] MEDS: ATORVASTATIN CALCIUM 40 MG TABLET PO SCH (21:30)
[2017-10-21] MEDS: DIPHENOXYLATE HCL/ATROP SULF 2.5-0.025 MG TABLET PO SCH ×4 (00:56→17:22)
[2017-10-21] MEDS: GABAPENTIN 300 MG CAPSULE PO SCH ×3 (05:37→22:56)
[2017-10-21] MEDS: LEVOTHYROXINE SODIUM 0.1 MG TABLET PO SCH (05:37)
[2017-10-21] MEDS: HYDROCHLOROTHIAZIDE 25 MG TABLET PO SCH (10:14)
[2017-10-21] MEDS: ASPIRIN 325 MG TABLET PO SCH (10:14)
[2017-10-21] MEDS: GUAIFENESIN 600 MG TABLET.SA PO SCH ×2 (10:14→22:56)
[2017-10-21] MEDS: LANSOPRAZOLE 30 MG TAB.RAP.DR PO SCH (10:15)
[2017-10-21] MEDS: HYDROMORPHONE HCL INJ/PF 2 MG/ML AMPULE IV PRN ×4 (10:15→22:53)
[2017-10-21] MEDS: LOSARTAN POTASSIUM 50 MG TABLET PO SCH (10:15)
[2017-10-21] MEDS: HYDROXYCHLOROQUINE SULFATE 200 MG TABLET PO SCH ×2 (10:15→22:57)
[2017-10-21] MEDS: PROMETHAZINE HCL INJ 25 MG/1 ML VIAL IV PRN ×3 (10:16→22:55)
[2017-10-21] MEDS: VANCOMYCIN HCL 750 MG in DEXTROSE 5%-WATER 250 ML IV SCH ×2 (10:50→22:57)
[2017-10-21 11:55] LABS: ABSOLUTE EOSINOPHILS # (AUTO) 0.1 10^3/uL (0.0-0.6); ABSOLUTE LYMPHOCYTES (AUTO) 1.2 10^3/uL (0.5-4.7); ABSOLUTE MONOCYTES (AUTO) 0.3 10^3/uL (0.1-1.4); BASOPHILS % (AUTO) 0.2 % (0-2); EOSINOPHILS % (AUTO) 1.5 % (0-6); HEMATOCRIT 37.7 % (36.0-47.0); HEMOGLOBIN 12.6 g/dL (12.0-15.5); LYMPHOCYTES % (AUTO) 17.8 % (13-45); MEAN CORPUSCULAR HEMOGLOBIN 26.6 pg (27.0-33.4); MEAN CORPUSCULAR HGB CONC 33.3 g/dL (32.0-36.0); MEAN CORPUSCULAR VOLUME 80 fl (80-97); MONOCYTES % (AUTO) 5.2 % (3-13); PLATELET COUNT 305 10^3/uL (150-450); RED BLOOD COUNT 4.72 10^6/uL (3.72-5.28); RED CELL DISTRIBUTION WIDTH 14.2 % (11.5-14.0); SEGMENTED NEUTROPHILS % (AUTO) 75.3 % (42-78); TOTAL CELLS COUNTED % (AUTO) 100 %; WHITE BLOOD COUNT 6.7 10^3/uL (4.0-10.5)
[2017-10-21 12:13] LABS: ALANINE AMINOTRANSFERASE 15 U/L (9-52); ALKALINE PHOSPHATASE 124 U/L (38-126); ANION GAP 12 (5-19); ASPARTATE AMINO TRANSFERASE 17 U/L (14-36); BILIRUBIN,DIRECT 0.1 mg/dL (0.0-0.4); BILIRUBIN,TOTAL 0.3 mg/dL (0.2-1.3); BLOOD UREA NITROGEN 8 mg/dL (7-20); CALCIUM 9.6 mg/dL (8.4-10.2); CARBON DIOXIDE 25 mmol/L (22-30); CHLORIDE 101 mmol/L (98-107); GLUCOSE 141 mg/dL (75-110); POTASSIUM 4.5 mmol/L (3.6-5.0); SODIUM 138.2 mmol/L (137-145); TOTAL PROTEIN 6.1 g/dL (6.3-8.2)
--- NOTE | 2017-10-21 17:22 | PDOC PROGRESS REPORT ---
Subjective Progress Note for:: 10/21/17 Subjective:: Patient seen by the bedside, she has no new complaints Reason For Visit: EPIGASTRIC PAIN,INTRACTABLE VOMITING,SLE Physical Exam Vital Signs: Temp Pulse Resp BP Pulse Ox 98.1 F 88 17 112/72 94 10/21/17 12:03 10/21/17 14:00 10/21/17 12:03 10/21/17 12:03 10/21/17 12:03 Intake & Output 10/20/17 10/21/17 10/22/17 06:59 06:59 06:59 Intake Total 3745 2813 840 Output Total 1300 1702 Balance 2445 1111 840 Weight 90.8 kg 90.8 kg General appearance: PRESENT: no acute distress, well-developed, well-nourished Head exam: PRESENT: atraumatic, normocephalic Eye exam: PRESENT: conjunctiva pink, EOMI, PERRLA Ear exam: PRESENT: normal external ear exam Mouth exam: PRESENT: moist, tongue midline Neck exam: PRESENT: full ROM Respiratory exam: PRESENT: clear to auscultation martínez Cardiovascular exam: PRESENT: RRR, +S1, +S2 Pulses: PRESENT: normal dorsalis pedis pul, +2 pedal pulses bilateral Vascular exam: PRESENT: normal capillary refill GI/Abdominal exam: PRESENT: normal bowel sounds, soft Rectal exam: PRESENT: deferred Neurological exam: PRESENT: alert, awake, oriented to person, oriented to place , oriented to time, oriented to situation, CN II-XII grossly intact Psychiatric exam: PRESENT: appropriate affect, normal mood Skin exam: PRESENT: dry, intact, warm Results Laboratory Results: 10/21/17 11:19 10/21/17 11:19 10/21/17 10/21/17 11:19 11:19 WBC 6.7 RBC 4.72 Hgb 12.6 Hct 37.7 MCV 80 MCH 26.6 L MCHC 33.3 RDW 14.2 H Plt Count 305 Seg Neutrophils % 75.3 Lymphocytes % 17.8 Monocytes % 5.2 Eosinophils % 1.5 Basophils % 0.2 Absolute Neutrophils 5.0 Absolute Lymphocytes 1.2 Absolute Monocytes 0.3 Absolute Eosinophils 0.1 Absolute Basophils 0.0 Sodium 138.2 Potassium 4.5 Chloride 101 Carbon Dioxide 25 Anion Gap 12 BUN 8 Creatinine 0.97 Est GFR ( Amer) > 60 Est GFR (Non-Af Amer) 58 L Glucose 141 H Calcium 9.6 Total Bilirubin 0.3 AST 17 ALT 15 Alkaline Phosphatase 124 Total Protein 6.1 L Albumin 4.0 10/15/17 20:07 Blood Blood Culture - Final NO GROWTH IN 5 DAYS 10/15/17 19:29 Blood Blood Culture - Final NO GROWTH IN 5 DAYS 10/11/17 10/11/17 10/11/17 16:00 16:00 23:00 Creatine Kinase 43 49 CK-MB (CK-2) 0.40 Troponin I < 0.012 10/11/17 10/12/17 10/12/17 23:00 06:51 06:51 Creatine Kinase 54 CK-MB (CK-2) 0.51 0.63 Troponin I < 0.012 < 0.012 Impressions: Chest X-Ray 10/11/17 14:49 IMPRESSION: NO ACUTE RADIOGRAPHIC FINDING IN THE CHEST. Assessment & Plan - Diagnosis (1) Urinary tract infection due to Enterococcus Is this a current diagnosis for this admission?: Yes (2) Intractable vomiting Qualifiers: Vomiting type: unspecified Nausea presence: with nausea Qualified Code(s) : R11.2 - Nausea with vomiting, unspecified Is this a current diagnosis for this admission?: Yes (3) Systemic lupus erythematosus Qualifiers: Systemic lupus erythematosus type: unspecified Systemic lupus erythematosus organ involvement: unspecified Qualified Code(s): M32.9 - Systemic lupus erythematosus, unspecified Is this a current diagnosis for this admission?: Yes (4) Urinary tract infection Qualifiers: Urinary tract infection type: site unspecified Hematuria presence: without hematuria Qualified Code(s): N39.0 - Urinary tract infection, site not specified Is this a current diagnosis for this admission?: Yes (5) Gastritis Qualifiers: Gastritis type: unspecified gastritis Chronicity: acute Gastritis bleeding: without bleeding Qualified Code(s): K29.00 - Acute gastritis without bleeding Is this a current diagnosis for this admission?: Yes
[2017-10-21] MEDS: NORMAL SALINE 1000 ML 1,000 ML IV PRN (18:35)
[2017-10-21] MEDS: ATORVASTATIN CALCIUM 40 MG TABLET PO SCH (22:55)
[2017-10-22] MEDS: DIPHENOXYLATE HCL/ATROP SULF 2.5-0.025 MG TABLET PO SCH ×4 (01:37→17:54)
[2017-10-22] MEDS: GABAPENTIN 300 MG CAPSULE PO SCH ×3 (05:12→22:55)
[2017-10-22] MEDS: LEVOTHYROXINE SODIUM 0.1 MG TABLET PO SCH (05:12)
[2017-10-22] MEDS: HYDROMORPHONE HCL INJ/PF 2 MG/ML AMPULE IV PRN ×3 (05:13→18:20)
[2017-10-22] MEDS: PROMETHAZINE HCL INJ 25 MG/1 ML VIAL IV PRN ×3 (05:14→18:20)
[2017-10-22] MEDS: NORMAL SALINE 1000 ML 1,000 ML IV PRN (09:25)
[2017-10-22] MEDS: ASPIRIN 325 MG TABLET PO SCH (09:26)
[2017-10-22] MEDS: GUAIFENESIN 600 MG TABLET.SA PO SCH ×2 (09:26→22:55)
[2017-10-22] MEDS: LOSARTAN POTASSIUM 50 MG TABLET PO SCH (09:26)
[2017-10-22] MEDS: HYDROCHLOROTHIAZIDE 25 MG TABLET PO SCH (09:27)
[2017-10-22] MEDS: LANSOPRAZOLE 30 MG TAB.RAP.DR PO SCH (09:27)
[2017-10-22] MEDS: HYDROXYCHLOROQUINE SULFATE 200 MG TABLET PO SCH ×2 (09:28→22:55)
[2017-10-22] MEDS: VANCOMYCIN HCL 750 MG in DEXTROSE 5%-WATER 250 ML IV SCH ×2 (10:31→22:55)
[2017-10-22 11:33] LABS: ABSOLUTE EOSINOPHILS # (AUTO) 0.1 10^3/uL (0.0-0.6); ABSOLUTE LYMPHOCYTES (AUTO) 1.7 10^3/uL (0.5-4.7); ABSOLUTE MONOCYTES (AUTO) 0.6 10^3/uL (0.1-1.4); ABSOLUTE NEUT (AUTO) 4.2 10^3/uL (1.7-8.2); BASOPHILS % (AUTO) 0.2 % (0-2); EOSINOPHILS % (AUTO) 2.1 % (0-6); HEMATOCRIT 35.8 % (36.0-47.0); HEMOGLOBIN 11.9 g/dL (12.0-15.5); LYMPHOCYTES % (AUTO) 25.4 % (13-45); MEAN CORPUSCULAR HEMOGLOBIN 26.8 pg (27.0-33.4); MEAN CORPUSCULAR HGB CONC 33.4 g/dL (32.0-36.0); MEAN CORPUSCULAR VOLUME 80 fl (80-97); MONOCYTES % (AUTO) 9.3 % (3-13); PLATELET COUNT 294 10^3/uL (150-450); RED BLOOD COUNT 4.45 10^6/uL (3.72-5.28); RED CELL DISTRIBUTION WIDTH 14.1 % (11.5-14.0); TOTAL CELLS COUNTED % (AUTO) 100 %; WHITE BLOOD COUNT 6.7 10^3/uL (4.0-10.5)
[2017-10-22 11:56] LABS: ALANINE AMINOTRANSFERASE 22 U/L (9-52); ALBUMIN 3.8 g/dL (3.5-5.0); ALKALINE PHOSPHATASE 113 U/L (38-126); ANION GAP 8 (5-19); ASPARTATE AMINO TRANSFERASE 20 U/L (14-36); BILIRUBIN,DIRECT 0.4 mg/dL (0.0-0.4); BILIRUBIN,TOTAL 0.4 mg/dL (0.2-1.3); BLOOD UREA NITROGEN 7 mg/dL (7-20); CALCIUM 9.2 mg/dL (8.4-10.2); CARBON DIOXIDE 30 mmol/L (22-30); CHLORIDE 98 mmol/L (98-107); GLUCOSE 95 mg/dL (75-110); POTASSIUM 4.3 mmol/L (3.6-5.0); SODIUM 136.2 mmol/L (137-145); TOTAL PROTEIN 6.2 g/dL (6.3-8.2)
--- NOTE | 2017-10-22 21:09 | PDOC PROGRESS REPORT ---
Subjective Progress Note for:: 10/22/17 Subjective:: She was seen by the bedside, she would continue present treatment Reason For Visit: EPIGASTRIC PAIN,INTRACTABLE VOMITING,SLE Physical Exam Vital Signs: Temp Pulse Resp BP Pulse Ox 97.9 F 82 16 117/54 L 97 10/22/17 16:01 10/22/17 16:01 10/22/17 16:01 10/22/17 16:01 10/22/17 16:01 Intake & Output 10/21/17 10/22/17 10/23/17 06:59 06:59 06:59 Intake Total 2813 5540 821 Output Total 1702 1500 Balance 1111 4040 821 Weight 90.8 kg 90.8 kg General appearance: PRESENT: no acute distress, well-developed, well-nourished Head exam: PRESENT: atraumatic, normocephalic Eye exam: PRESENT: conjunctiva pink, EOMI, PERRLA. ABSENT: scleral icterus Ear exam: PRESENT: normal external ear exam Mouth exam: PRESENT: moist, tongue midline Neck exam: PRESENT: full ROM Respiratory exam: PRESENT: clear to auscultation martínez Cardiovascular exam: PRESENT: RRR, +S1, +S2 Pulses: PRESENT: normal dorsalis pedis pul, +2 pedal pulses bilateral Vascular exam: PRESENT: normal capillary refill GI/Abdominal exam: PRESENT: normal bowel sounds, soft Rectal exam: PRESENT: deferred Neurological exam: PRESENT: alert, awake, oriented to person, oriented to place , oriented to time, oriented to situation, CN II-XII grossly intact. ABSENT: motor sensory deficit Psychiatric exam: PRESENT: appropriate affect, normal mood Skin exam: PRESENT: dry, intact, warm Results Laboratory Results: 10/22/17 11:12 10/22/17 11:12 10/22/17 10/22/17 11:12 11:12 WBC 6.7 RBC 4.45 Hgb 11.9 L Hct 35.8 L MCV 80 MCH 26.8 L MCHC 33.4 RDW 14.1 H Plt Count 294 Seg Neutrophils % 63.0 Lymphocytes % 25.4 Monocytes % 9.3 Eosinophils % 2.1 Basophils % 0.2 Absolute Neutrophils 4.2 Absolute Lymphocytes 1.7 Absolute Monocytes 0.6 Absolute Eosinophils 0.1 Absolute Basophils 0.0 Sodium 136.2 L Potassium 4.3 Chloride 98 Carbon Dioxide 30 Anion Gap 8 BUN 7 Creatinine 1.00 Est GFR ( Amer) > 60 Est GFR (Non-Af Amer) 56 L Glucose 95 Calcium 9.2 Total Bilirubin 0.4 AST 20 ALT 22 Alkaline Phosphatase 113 Total Protein 6.2 L Albumin 3.8 10/11/17 10/11/17 10/11/17 16:00 16:00 23:00 Creatine Kinase 43 49 CK-MB (CK-2) 0.40 Troponin I < 0.012 10/11/17 10/12/17 10/12/17 23:00 06:51 06:51 Creatine Kinase 54 CK-MB (CK-2) 0.51 0.63 Troponin I < 0.012 < 0.012 Impressions: Chest X-Ray 10/11/17 14:49 IMPRESSION: NO ACUTE RADIOGRAPHIC FINDING IN THE CHEST. Assessment & Plan - Diagnosis (1) Urinary tract infection due to Enterococcus Is this a current diagnosis for this admission?: Yes (2) Intractable vomiting Qualifiers: Vomiting type: unspecified Nausea presence: with nausea Qualified Code(s) : R11.2 - Nausea with vomiting, unspecified Is this a current diagnosis for this admission?: Yes (3) Systemic lupus erythematosus Qualifiers: Systemic lupus erythematosus type: unspecified Systemic lupus erythematosus organ involvement: unspecified Qualified Code(s): M32.9 - Systemic lupus erythematosus, unspecified Is this a current diagnosis for this admission?: Yes (4) Urinary tract infection Qualifiers: Urinary tract infection type: site unspecified Hematuria presence: without hematuria Qualified Code(s): N39.0 - Urinary tract infection, site not specified Is this a current diagnosis for this admission?: Yes (5) Gastritis Qualifiers: Gastritis type: unspecified gastritis Chronicity: acute Gastritis bleeding: without bleeding Qualified Code(s): K29.00 - Acute gastritis without bleeding Is this a current diagnosis for this admission?: Yes
[2017-10-22] MEDS: ATORVASTATIN CALCIUM 40 MG TABLET PO SCH (22:55)
[2017-10-23] MEDS: DIPHENOXYLATE HCL/ATROP SULF 2.5-0.025 MG TABLET PO SCH ×4 (00:19→16:58)
[2017-10-23] MEDS: HYDROMORPHONE HCL INJ/PF 2 MG/ML AMPULE IV PRN ×6 (00:19→22:55)
[2017-10-23] MEDS: PROMETHAZINE HCL INJ 25 MG/1 ML VIAL IV PRN ×4 (00:19→19:32)
[2017-10-23] MEDS: NORMAL SALINE 1000 ML 1,000 ML IV PRN ×2 (00:20→16:59)
[2017-10-23] MEDS: LEVOTHYROXINE SODIUM 0.1 MG TABLET PO SCH (05:52)
[2017-10-23] MEDS: GABAPENTIN 300 MG CAPSULE PO SCH ×3 (05:52→22:11)
[2017-10-23] MEDS: ASPIRIN 325 MG TABLET PO SCH (09:15)
[2017-10-23] MEDS: LOSARTAN POTASSIUM 50 MG TABLET PO SCH (09:15)
[2017-10-23] MEDS: GUAIFENESIN 600 MG TABLET.SA PO SCH ×2 (09:15→22:11)
[2017-10-23] MEDS: LANSOPRAZOLE 30 MG TAB.RAP.DR PO SCH (09:16)
[2017-10-23] MEDS: HYDROCHLOROTHIAZIDE 25 MG TABLET PO SCH (09:16)
[2017-10-23] MEDS: HYDROXYCHLOROQUINE SULFATE 200 MG TABLET PO SCH ×2 (09:17→22:11)
[2017-10-23] MEDS: VANCOMYCIN HCL 750 MG in DEXTROSE 5%-WATER 250 ML IV SCH ×2 (12:11→22:11)
--- NOTE | 2017-10-23 21:13 | PDOC PROGRESS REPORT ---
Subjective Progress Note for:: 10/23/17 Subjective:: She was seen by the bedside, she would continue present treatment Reason For Visit: EPIGASTRIC PAIN,INTRACTABLE VOMITING,SLE Physical Exam Vital Signs: Temp Pulse Resp BP Pulse Ox 98.6 F 89 17 138/66 H 99 10/23/17 16:01 10/23/17 16:01 10/23/17 16:01 10/23/17 16:01 10/23/17 16:01 Intake & Output 10/22/17 10/23/17 10/24/17 06:59 06:59 06:59 Intake Total 5540 2111 1321 Output Total 1500 2300 1200 Balance 4040 -189 121 Weight 90.8 kg 91.7 kg General appearance: PRESENT: no acute distress Eye exam: PRESENT: PERRLA Respiratory exam: PRESENT: clear to auscultation martínez Cardiovascular exam: PRESENT: +S1, +S2 GI/Abdominal exam: PRESENT: soft Neurological exam: PRESENT: alert, CN II-XII grossly intact Results Laboratory Results: 10/22/17 11:12 10/22/17 11:12 10/11/17 10/11/17 10/11/17 16:00 16:00 23:00 Creatine Kinase 43 49 CK-MB (CK-2) 0.40 Troponin I < 0.012 10/11/17 10/12/17 10/12/17 23:00 06:51 06:51 Creatine Kinase 54 CK-MB (CK-2) 0.51 0.63 Troponin I < 0.012 < 0.012 Impressions: Chest X-Ray 10/11/17 14:49 IMPRESSION: NO ACUTE RADIOGRAPHIC FINDING IN THE CHEST. Assessment & Plan - Diagnosis (1) Urinary tract infection due to Enterococcus Is this a current diagnosis for this admission?: Yes (2) Intractable vomiting Qualifiers: Vomiting type: unspecified Nausea presence: with nausea Qualified Code(s) : R11.2 - Nausea with vomiting, unspecified Is this a current diagnosis for this admission?: Yes (3) Systemic lupus erythematosus Qualifiers: Systemic lupus erythematosus type: unspecified Systemic lupus erythematosus organ involvement: unspecified Qualified Code(s): M32.9 - Systemic lupus erythematosus, unspecified Is this a current diagnosis for this admission?: Yes (4) Urinary tract infection Qualifiers: Urinary tract infection type: site unspecified Hematuria presence: without hematuria Qualified Code(s): N39.0 - Urinary tract infection, site not specified Is this a current diagnosis for this admission?: Yes (5) Gastritis Qualifiers: Gastritis type: unspecified gastritis Chronicity: acute Gastritis bleeding: without bleeding Qualified Code(s): K29.00 - Acute gastritis without bleeding Is this a current diagnosis for this admission?: Yes
[2017-10-23] MEDS: ATORVASTATIN CALCIUM 40 MG TABLET PO SCH (22:11)
[2017-10-24] MEDS: DIPHENOXYLATE HCL/ATROP SULF 2.5-0.025 MG TABLET PO SCH ×5 (00:08→23:29)
[2017-10-24] MEDS: PROMETHAZINE HCL INJ 25 MG/1 ML VIAL IV PRN ×4 (01:57→21:42)
[2017-10-24] MEDS: HYDROMORPHONE HCL INJ/PF 2 MG/ML AMPULE IV PRN ×5 (03:04→21:41)
[2017-10-24] MEDS: LEVOTHYROXINE SODIUM 0.1 MG TABLET PO SCH (06:00)
[2017-10-24] MEDS: GABAPENTIN 300 MG CAPSULE PO SCH ×3 (06:00→21:42)
[2017-10-24] MEDS: LANSOPRAZOLE 30 MG TAB.RAP.DR PO SCH (08:12)
[2017-10-24] MEDS: ASPIRIN 325 MG TABLET PO SCH (10:45)
[2017-10-24] MEDS: GUAIFENESIN 600 MG TABLET.SA PO SCH ×2 (10:45→21:42)
[2017-10-24] MEDS: HYDROCHLOROTHIAZIDE 25 MG TABLET PO SCH (10:45)
[2017-10-24] MEDS: VANCOMYCIN HCL 750 MG in DEXTROSE 5%-WATER 250 ML IV SCH ×2 (10:46→23:27)
[2017-10-24] MEDS: LOSARTAN POTASSIUM 50 MG TABLET PO SCH (10:46)
[2017-10-24] MEDS: HYDROXYCHLOROQUINE SULFATE 200 MG TABLET PO SCH ×2 (10:46→21:42)
--- NOTE | 2017-10-24 18:01 | PDOC PROGRESS REPORT ---
Subjective Progress Note for:: 10/24/17 Subjective:: Patient was seen by the bedside, she still complains of nausea vomiting but she has no more dysuria which is a positive finding Reason For Visit: EPIGASTRIC PAIN,INTRACTABLE VOMITING,SLE Physical Exam Vital Signs: Temp Pulse Resp BP Pulse Ox 98.2 F 80 16 122/5 L 94 10/24/17 16:00 10/24/17 16:00 10/24/17 16:00 10/24/17 16:00 10/24/17 16:00 Intake & Output 10/23/17 10/24/17 10/25/17 06:59 06:59 06:59 Intake Total 2111 3016 790 Output Total 2300 2100 Balance -189 916 790 Weight 91.7 kg 91.7 kg General appearance: PRESENT: no acute distress Head exam: PRESENT: atraumatic, normocephalic Eye exam: PRESENT: conjunctiva pink, EOMI, PERRLA Ear exam: PRESENT: normal external ear exam Mouth exam: PRESENT: moist, tongue midline Neck exam: PRESENT: full ROM Respiratory exam: PRESENT: clear to auscultation martínez Cardiovascular exam: PRESENT: RRR, +S1, +S2 GI/Abdominal exam: PRESENT: normal bowel sounds, soft Rectal exam: PRESENT: deferred Neurological exam: PRESENT: alert, awake, oriented to person, oriented to place , oriented to time, oriented to situation, CN II-XII grossly intact Psychiatric exam: PRESENT: appropriate affect, normal mood Skin exam: PRESENT: dry, intact, warm. ABSENT: cyanosis, rash Results Laboratory Results: 10/22/17 11:12 10/22/17 11:12 10/11/17 10/11/17 10/11/17 16:00 16:00 23:00 Creatine Kinase 43 49 CK-MB (CK-2) 0.40 Troponin I < 0.012 10/11/17 10/12/17 10/12/17 23:00 06:51 06:51 Creatine Kinase 54 CK-MB (CK-2) 0.51 0.63 Troponin I < 0.012 < 0.012 Impressions: Chest X-Ray 10/11/17 14:49 IMPRESSION: NO ACUTE RADIOGRAPHIC FINDING IN THE CHEST. Assessment & Plan - Diagnosis (1) Urinary tract infection due to Enterococcus Is this a current diagnosis for this admission?: Yes (2) Intractable vomiting Qualifiers: Vomiting type: unspecified Nausea presence: with nausea Qualified Code(s) : R11.2 - Nausea with vomiting, unspecified Is this a current diagnosis for this admission?: Yes (3) Systemic lupus erythematosus Qualifiers: Systemic lupus erythematosus type: unspecified Systemic lupus erythematosus organ involvement: unspecified Qualified Code(s): M32.9 - Systemic lupus erythematosus, unspecified Is this a current diagnosis for this admission?: Yes (4) Urinary tract infection Qualifiers: Urinary tract infection type: site unspecified Hematuria presence: without hematuria Qualified Code(s): N39.0 - Urinary tract infection, site not specified Is this a current diagnosis for this admission?: Yes (5) Gastritis Qualifiers: Gastritis type: unspecified gastritis Chronicity: acute Gastritis bleeding: without bleeding Qualified Code(s): K29.00 - Acute gastritis without bleeding Is this a current diagnosis for this admission?: Yes
[2017-10-24] MEDS: ATORVASTATIN CALCIUM 40 MG TABLET PO SCH (21:42)
[2017-10-25] MEDS: PROMETHAZINE HCL INJ 25 MG/1 ML VIAL IV PRN ×4 (03:29→22:09)
[2017-10-25] MEDS: HYDROMORPHONE HCL INJ/PF 2 MG/ML AMPULE IV PRN ×5 (03:29→22:09)
[2017-10-25] MEDS: LEVOTHYROXINE SODIUM 0.1 MG TABLET PO SCH (05:39)
[2017-10-25] MEDS: GABAPENTIN 300 MG CAPSULE PO SCH ×3 (05:39→21:07)
[2017-10-25] MEDS: DIPHENOXYLATE HCL/ATROP SULF 2.5-0.025 MG TABLET PO SCH ×3 (05:39→17:54)
[2017-10-25] MEDS: LANSOPRAZOLE 30 MG TAB.RAP.DR PO SCH (08:26)
[2017-10-25] MEDS: HYDROCHLOROTHIAZIDE 25 MG TABLET PO SCH (09:58)
[2017-10-25] MEDS: LOSARTAN POTASSIUM 50 MG TABLET PO SCH (09:59)
[2017-10-25] MEDS: GUAIFENESIN 600 MG TABLET.SA PO SCH ×2 (09:59→21:07)
[2017-10-25] MEDS: ASPIRIN 325 MG TABLET PO SCH (09:59)
[2017-10-25] MEDS: HYDROXYCHLOROQUINE SULFATE 200 MG TABLET PO SCH ×2 (10:00→21:07)
[2017-10-25 11:45] LABS: VANCOMYCIN,TROUGH 17.7 ug/mL (5.0-20.0)
[2017-10-25] MEDS: VANCOMYCIN HCL 750 MG in DEXTROSE 5%-WATER 250 ML IV SCH (12:34)
[2017-10-25] MEDS: NORMAL SALINE 1000 ML 1,000 ML IV PRN (17:59)
--- NOTE | 2017-10-25 21:01 | PDOC PROGRESS REPORT ---
Subjective Progress Note for:: 10/25/17 Subjective:: She stated she vomited twice, the RN said no one witnessed vomiting. Reason For Visit: EPIGASTRIC PAIN,INTRACTABLE VOMITING,SLE Physical Exam Vital Signs: Temp Pulse Resp BP Pulse Ox 98.6 F 91 16 116/60 100 10/25/17 16:18 10/25/17 16:18 10/25/17 16:18 10/25/17 16:18 10/25/17 16:18 Intake & Output 10/24/17 10/25/17 10/26/17 06:59 06:59 06:59 Intake Total 3016 3765 2412 Output Total 2100 1000 Balance 916 2765 2412 Weight 91.7 kg 91.7 kg General appearance: PRESENT: no acute distress Eye exam: PRESENT: PERRLA Respiratory exam: PRESENT: clear to auscultation martínez Cardiovascular exam: PRESENT: +S1, +S2 GI/Abdominal exam: PRESENT: soft Neurological exam: PRESENT: alert Results Laboratory Results: 10/22/17 11:12 10/22/17 11:12 10/11/17 10/11/17 10/11/17 16:00 16:00 23:00 Creatine Kinase 43 49 CK-MB (CK-2) 0.40 Troponin I < 0.012 10/11/17 10/12/17 10/12/17 23:00 06:51 06:51 Creatine Kinase 54 CK-MB (CK-2) 0.51 0.63 Troponin I < 0.012 < 0.012 Impressions: Chest X-Ray 10/11/17 14:49 IMPRESSION: NO ACUTE RADIOGRAPHIC FINDING IN THE CHEST. Assessment & Plan - Diagnosis (1) Urinary tract infection due to Enterococcus Is this a current diagnosis for this admission?: Yes (2) Intractable vomiting Qualifiers: Vomiting type: unspecified Nausea presence: with nausea Qualified Code(s) : R11.2 - Nausea with vomiting, unspecified Is this a current diagnosis for this admission?: Yes (3) Systemic lupus erythematosus Qualifiers: Systemic lupus erythematosus type: unspecified Systemic lupus erythematosus organ involvement: unspecified Qualified Code(s): M32.9 - Systemic lupus erythematosus, unspecified Is this a current diagnosis for this admission?: Yes (4) Urinary tract infection Qualifiers: Urinary tract infection type: site unspecified Hematuria presence: without hematuria Qualified Code(s): N39.0 - Urinary tract infection, site not specified Is this a current diagnosis for this admission?: Yes (5) Gastritis Qualifiers: Gastritis type: unspecified gastritis Chronicity: acute Gastritis bleeding: without bleeding Qualified Code(s): K29.00 - Acute gastritis without bleeding Is this a current diagnosis for this admission?: Yes
[2017-10-25] MEDS: ATORVASTATIN CALCIUM 40 MG TABLET PO SCH (21:07)
[2017-10-25 22:10] LABS: ABSOLUTE BASOPHILS # (AUTO) 0.1 10^3/uL (0.0-0.2); ABSOLUTE EOSINOPHILS # (AUTO) 0.1 10^3/uL (0.0-0.6); ABSOLUTE LYMPHOCYTES (AUTO) 1.4 10^3/uL (0.5-4.7); ABSOLUTE MONOCYTES (AUTO) 0.5 10^3/uL (0.1-1.4); ABSOLUTE NEUT (AUTO) 5.3 10^3/uL (1.7-8.2); BASOPHILS % (AUTO) 0.9 % (0-2); EOSINOPHILS % (AUTO) 1.6 % (0-6); HEMATOCRIT 35.5 % (36.0-47.0); HEMOGLOBIN 12.1 g/dL (12.0-15.5); MEAN CORPUSCULAR HEMOGLOBIN 26.9 pg (27.0-33.4); MEAN CORPUSCULAR HGB CONC 34.1 g/dL (32.0-36.0); MEAN CORPUSCULAR VOLUME 79 fl (80-97); MONOCYTES % (AUTO) 6.3 % (3-13); PLATELET COUNT 309 10^3/uL (150-450); RED CELL DISTRIBUTION WIDTH 13.7 % (11.5-14.0); SEGMENTED NEUTROPHILS % (AUTO) 72.2 % (42-78); TOTAL CELLS COUNTED % (AUTO) 100 %; WHITE BLOOD COUNT 7.3 10^3/uL (4.0-10.5)
[2017-10-25 22:29] LABS: ALANINE AMINOTRANSFERASE 18 U/L (9-52); ALBUMIN 4.1 g/dL (3.5-5.0); ALKALINE PHOSPHATASE 125 U/L (38-126); ANION GAP 12 (5-19); ASPARTATE AMINO TRANSFERASE 21 U/L (14-36); BILIRUBIN,DIRECT 0.1 mg/dL (0.0-0.4); BILIRUBIN,TOTAL 0.2 mg/dL (0.2-1.3); BLOOD UREA NITROGEN 5 mg/dL (7-20); CALCIUM 9.3 mg/dL (8.4-10.2); CARBON DIOXIDE 27 mmol/L (22-30); CHLORIDE 99 mmol/L (98-107); GLUCOSE 111 mg/dL (75-110); SODIUM 138.1 mmol/L (137-145); TOTAL PROTEIN 6.4 g/dL (6.3-8.2)
[2017-10-26] MEDS: DIPHENOXYLATE HCL/ATROP SULF 2.5-0.025 MG TABLET PO SCH ×5 (02:12→23:42)
[2017-10-26] MEDS: HYDROMORPHONE HCL INJ/PF 2 MG/ML AMPULE IV PRN ×6 (02:12→23:42)
[2017-10-26] MEDS: PROMETHAZINE HCL INJ 25 MG/1 ML VIAL IV PRN ×4 (04:02→23:42)
[2017-10-26] MEDS: GABAPENTIN 300 MG CAPSULE PO SCH ×3 (06:56→21:25)
[2017-10-26] MEDS: LEVOTHYROXINE SODIUM 0.1 MG TABLET PO SCH (06:56)
[2017-10-26] MEDS: LANSOPRAZOLE 30 MG TAB.RAP.DR PO SCH (08:01)
[2017-10-26] MEDS: NORMAL SALINE 1000 ML 1,000 ML IV PRN ×2 (08:01→21:25)
[2017-10-26] MEDS: LOSARTAN POTASSIUM 50 MG TABLET PO SCH (11:25)
[2017-10-26] MEDS: GUAIFENESIN 600 MG TABLET.SA PO SCH ×2 (11:25→21:25)
[2017-10-26] MEDS: ASPIRIN 325 MG TABLET PO SCH (11:26)
[2017-10-26] MEDS: HYDROCHLOROTHIAZIDE 25 MG TABLET PO SCH (11:26)
[2017-10-26] MEDS: HYDROXYCHLOROQUINE SULFATE 200 MG TABLET PO SCH ×2 (11:28→21:25)
--- NOTE | 2017-10-26 21:10 | PDOC PROGRESS REPORT ---
Subjective Progress Note for:: 10/26/17 Subjective:: There is no new complaints Reason For Visit: EPIGASTRIC PAIN,INTRACTABLE VOMITING,SLE Physical Exam Vital Signs: Temp Pulse Resp BP Pulse Ox 98.1 F 83 17 133/65 H 100 10/26/17 16:08 10/26/17 16:08 10/26/17 16:08 10/26/17 16:08 10/26/17 16:08 Intake & Output 10/25/17 10/26/17 10/27/17 06:59 06:59 06:59 Intake Total 3765 3892 1500 Output Total 2403 163 9761 Balance 2765 3192 -1100 Weight 91.7 kg 91.7 kg General appearance: PRESENT: no acute distress Eye exam: PRESENT: PERRLA Respiratory exam: PRESENT: clear to auscultation martínez Cardiovascular exam: PRESENT: +S1, +S2 GI/Abdominal exam: PRESENT: soft Results Laboratory Results: 10/25/17 21:25 10/25/17 21:25 10/25/17 10/25/17 21:25 21:25 WBC 7.3 RBC 4.50 Hgb 12.1 Hct 35.5 L MCV 79 L MCH 26.9 L MCHC 34.1 RDW 13.7 Plt Count 309 Seg Neutrophils % 72.2 Lymphocytes % 19.0 Monocytes % 6.3 Eosinophils % 1.6 Basophils % 0.9 Absolute Neutrophils 5.3 Absolute Lymphocytes 1.4 Absolute Monocytes 0.5 Absolute Eosinophils 0.1 Absolute Basophils 0.1 Sodium 138.1 Potassium 4.0 Chloride 99 Carbon Dioxide 27 Anion Gap 12 BUN 5 L Creatinine 0.95 Est GFR ( Amer) > 60 Est GFR (Non-Af Amer) 59 L Glucose 111 H Calcium 9.3 Total Bilirubin 0.2 AST 21 ALT 18 Alkaline Phosphatase 125 Total Protein 6.4 Albumin 4.1 10/11/17 10/11/17 10/11/17 16:00 16:00 23:00 Creatine Kinase 43 49 CK-MB (CK-2) 0.40 Troponin I < 0.012 10/11/17 10/12/17 10/12/17 23:00 06:51 06:51 Creatine Kinase 54 CK-MB (CK-2) 0.51 0.63 Troponin I < 0.012 < 0.012 Impressions: Chest X-Ray 02/01/18 14:49 IMPRESSION: NO ACUTE RADIOGRAPHIC FINDING IN THE CHEST. Assessment & Plan - Diagnosis (1) Urinary tract infection due to Enterococcus Is this a current diagnosis for this admission?: Yes (2) Intractable vomiting Qualifiers: Vomiting type: unspecified Nausea presence: with nausea Qualified Code(s) : R11.2 - Nausea with vomiting, unspecified Is this a current diagnosis for this admission?: Yes (3) Systemic lupus erythematosus Qualifiers: Systemic lupus erythematosus type: unspecified Systemic lupus erythematosus organ involvement: unspecified Qualified Code(s): M32.9 - Systemic lupus erythematosus, unspecified Is this a current diagnosis for this admission?: Yes (4) Urinary tract infection Qualifiers: Urinary tract infection type: site unspecified Hematuria presence: without hematuria Qualified Code(s): N39.0 - Urinary tract infection, site not specified Is this a current diagnosis for this admission?: Yes (5) Gastritis Qualifiers: Gastritis type: unspecified gastritis Chronicity: acute Gastritis bleeding: without bleeding Qualified Code(s): K29.00 - Acute gastritis without bleeding Is this a current diagnosis for this admission?: Yes
[2017-10-26] MEDS: ATORVASTATIN CALCIUM 40 MG TABLET PO SCH (21:25)
[2017-10-27] MEDS: HYDROMORPHONE HCL INJ/PF 2 MG/ML AMPULE IV PRN ×5 (04:34→22:33)
[2017-10-27] MEDS: PROMETHAZINE HCL INJ 25 MG/1 ML VIAL IV PRN ×3 (05:53→18:25)
[2017-10-27] MEDS: GABAPENTIN 300 MG CAPSULE PO SCH ×3 (05:53→21:44)
[2017-10-27] MEDS: LEVOTHYROXINE SODIUM 0.1 MG TABLET PO SCH (05:53)
[2017-10-27] MEDS: DIPHENOXYLATE HCL/ATROP SULF 2.5-0.025 MG TABLET PO SCH ×3 (05:54→18:25)
[2017-10-27] MEDS: LANSOPRAZOLE 30 MG TAB.RAP.DR PO SCH (08:16)
[2017-10-27] MEDS: ASPIRIN 325 MG TABLET PO SCH (10:06)
[2017-10-27] MEDS: GUAIFENESIN 600 MG TABLET.SA PO SCH ×2 (10:09→21:44)
[2017-10-27] MEDS: LOSARTAN POTASSIUM 50 MG TABLET PO SCH (10:09)
[2017-10-27] MEDS: HYDROCHLOROTHIAZIDE 25 MG TABLET PO SCH (10:09)
[2017-10-27] MEDS: HYDROXYCHLOROQUINE SULFATE 200 MG TABLET PO SCH ×2 (10:12→21:43)
--- NOTE | 2017-10-27 13:06 | PDOC PROGRESS REPORT ---
Subjective Progress Note for:: 10/27/17 Subjective:: Patient reported improvement in nausea and vomiting. Minimal abdominal pain. No fever or chills. No chest pain or difficulty with breathing. Reason For Visit: EPIGASTRIC PAIN,INTRACTABLE VOMITING,SLE Physical Exam Vital Signs: Temp Pulse Resp BP Pulse Ox 98.4 F 78 18 117/58 L 96 10/27/17 11:55 10/27/17 11:55 10/27/17 11:55 10/27/17 11:55 10/27/17 11:55 Intake & Output 10/26/17 10/27/17 10/28/17 06:59 06:59 06:59 Intake Total 3892 3290 Output Total 700 5300 Balance 3192 -2009 Weight 91.7 kg 89.9 kg General appearance: PRESENT: obese Head exam: PRESENT: atraumatic, normocephalic Eye exam: PRESENT: conjunctiva pink, EOMI, PERRLA. ABSENT: scleral icterus Mouth exam: PRESENT: moist Respiratory exam: PRESENT: clear to auscultation martínez Cardiovascular exam: PRESENT: RRR. ABSENT: diastolic murmur, rubs, systolic murmur Vascular exam: PRESENT: normal capillary refill. ABSENT: pallor GI/Abdominal exam: PRESENT: normal bowel sounds, soft. ABSENT: distended, guarding, mass, organolmegaly, rebound, tenderness Extremities exam: ABSENT: pedal edema Musculoskeletal exam: PRESENT: deformity - related to multiple joints involvement with arthritis Neurological exam: PRESENT: alert, awake, oriented to person, oriented to place , oriented to time, oriented to situation, CN II-XII grossly intact. ABSENT: motor sensory deficit Psychiatric exam: PRESENT: appropriate affect, normal mood. ABSENT: homicidal ideation, suicidal ideation Skin exam: PRESENT: dry, intact, warm. ABSENT: cyanosis, rash Results Laboratory Results: 10/25/17 21:25 10/25/17 21:25 10/11/17 10/11/17 10/11/17 16:00 16:00 23:00 Creatine Kinase 43 49 CK-MB (CK-2) 0.40 Troponin I < 0.012 10/11/17 10/12/17 10/12/17 23:00 06:51 06:51 Creatine Kinase 54 CK-MB (CK-2) 0.51 0.63 Troponin I < 0.012 < 0.012 Impressions: Chest X-Ray 10/11/17 14:49 IMPRESSION: NO ACUTE RADIOGRAPHIC FINDING IN THE CHEST. Assessment & Plan - Diagnosis (1) Urinary tract infection due to Enterococcus Is this a current diagnosis for this admission?: Yes Plan: Improved with IV Vancomycin therapy. (2) Gastritis Qualifiers: Gastritis type: unspecified gastritis Chronicity: acute Gastritis bleeding: without bleeding Qualified Code(s): K29.00 - Acute gastritis without bleeding Is this a current diagnosis for this admission?: Yes Plan: Improving with resolution of presenting symptoms. (3) Systemic lupus erythematosus Qualifiers: Systemic lupus erythematosus type: unspecified Systemic lupus erythematosus organ involvement: unspecified Qualified Code(s): M32.9 - Systemic lupus erythematosus, unspecified Is this a current diagnosis for this admission?: Yes Plan: See covering attending physician orders. - Time Time Spent with patient: 25-34 minutes Medications reviewed and adjusted accordingly: Yes Anticipated discharge: Home with Homehealth Within: Other - Inpatient Certification Based on my medical assessment, after consideration of the patient's comorbidities, presenting symptoms, or acuity I expect that the services needed warrant INPATIENT care.: Yes I certify that my determination is in accordance with my understanding of Medicare's requirements for reasonable and necessary INPATIENT services [42 CFR 412.3e].: Yes Medical Necessity: Need Close Monitoring Due to Risk of Patient Decompensation, Need For IV Fluids, Need For Continuous Telemetry Monitoring, Risk of Complication if Not Cared For in Hospital Post 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
[2017-10-27] MEDS: NORMAL SALINE 1000 ML 1,000 ML IV PRN (13:28)
[2017-10-27] MEDS: ATORVASTATIN CALCIUM 40 MG TABLET PO SCH (21:43)
[2017-10-28] MEDS: DIPHENOXYLATE HCL/ATROP SULF 2.5-0.025 MG TABLET PO SCH (00:30)
[2017-10-28] MEDS: PROMETHAZINE HCL INJ 25 MG/1 ML VIAL IV PRN ×4 (00:30→19:53)
[2017-10-28] MEDS: HYDROMORPHONE HCL INJ/PF 2 MG/ML AMPULE IV PRN ×6 (02:30→23:25)
[2017-10-28] MEDS: LEVOTHYROXINE SODIUM 0.1 MG TABLET PO SCH (06:19)
[2017-10-28] MEDS: GABAPENTIN 300 MG CAPSULE PO SCH ×3 (06:19→21:24)
[2017-10-28] MEDS: LANSOPRAZOLE 30 MG TAB.RAP.DR PO SCH (08:29)
[2017-10-28] MEDS: HYDROXYCHLOROQUINE SULFATE 200 MG TABLET PO SCH ×2 (09:03→21:24)
[2017-10-28] MEDS: ASPIRIN 325 MG TABLET PO SCH (09:03)
[2017-10-28] MEDS: HYDROCHLOROTHIAZIDE 25 MG TABLET PO SCH (09:03)
[2017-10-28] MEDS: GUAIFENESIN 600 MG TABLET.SA PO SCH ×2 (09:04→21:24)
[2017-10-28] MEDS: LOSARTAN POTASSIUM 50 MG TABLET PO SCH (09:04)
--- NOTE | 2017-10-28 15:46 | PDOC PROGRESS REPORT ---
Subjective Progress Note for:: 10/28/17 Subjective:: No chest pain or difficulty with breathing. No nausea, vomiting or abdominal pain. Tolerating oral feeding. No fever or chills. Reason For Visit: EPIGASTRIC PAIN,INTRACTABLE VOMITING,SLE Physical Exam Vital Signs: Temp Pulse Resp BP Pulse Ox 98.1 F 87 18 114/59 L 95 10/28/17 12:15 10/28/17 14:00 10/28/17 12:15 10/28/17 12:15 10/28/17 12:15 Intake & Output 10/27/17 10/28/17 10/29/17 06:59 06:59 06:59 Intake Total 3290 3111 Output Total 5300 2100 -2009 1011 Weight 89.9 kg 90.1 kg Physical Exam: General appearance: PRESENT: obese Head exam: PRESENT: atraumatic, normocephalic Eye exam: PRESENT: conjunctiva pink, EOMI, PERRLA. ABSENT: scleral icterus Mouth exam: PRESENT: moist Respiratory exam: PRESENT: clear to auscultation martínez Cardiovascular exam: PRESENT: RRR. ABSENT: diastolic murmur, rubs, systolic murmur Vascular exam: PRESENT: normal capillary refill. ABSENT: pallor GI/Abdominal exam: PRESENT: normal bowel sounds, soft. ABSENT: distended, guarding, mass, organomegaly, rebound, tenderness Extremities exam: ABSENT: pedal edema Musculoskeletal exam: PRESENT: deformity - related to multiple joints involvement with arthritis Neurological exam: PRESENT: alert, awake, oriented to person, oriented to place , oriented to time, oriented to situation, CN II-XII grossly intact. ABSENT: motor sensory deficit Psychiatric exam: PRESENT: appropriate affect, normal mood. ABSENT: homicidal ideation, suicidal ideation Skin exam: PRESENT: dry, intact, warm. ABSENT: cyanosis, rash Results Laboratory Results: 10/25/17 21:25 10/25/17 21:25 10/11/17 10/11/17 10/11/17 16:00 16:00 23:00 Creatine Kinase 43 49 CK-MB (CK-2) 0.40 Troponin I < 0.012 10/11/17 10/12/17 10/12/17 23:00 06:51 06:51 Creatine Kinase 54 CK-MB (CK-2) 0.51 0.63 Troponin I < 0.012 < 0.012 Impressions: Chest X-Ray 10/11/17 14:49 IMPRESSION: NO ACUTE RADIOGRAPHIC FINDING IN THE CHEST. Assessment & Plan - Diagnosis (1) Urinary tract infection due to Enterococcus Is this a current diagnosis for this admission?: Yes (2) Gastritis Qualifiers: Gastritis type: unspecified gastritis Chronicity: acute Gastritis bleeding: without bleeding Qualified Code(s): K29.00 - Acute gastritis without bleeding Is this a current diagnosis for this admission?: Yes (3) Systemic lupus erythematosus Qualifiers: Systemic lupus erythematosus type: unspecified Systemic lupus erythematosus organ involvement: unspecified Qualified Code(s): M32.9 - Systemic lupus erythematosus, unspecified Is this a current diagnosis for this admission?: Yes - Time Time Spent with patient: 25-34 minutes Medications reviewed and adjusted accordingly: Yes Anticipated discharge: Home with Homehealth Within: Other - Inpatient Certification Based on my medical assessment, after consideration of the patient's comorbidities, presenting symptoms, or acuity I expect that the services needed warrant INPATIENT care.: Yes I certify that my determination is in accordance with my understanding of Medicare's requirements for reasonable and necessary INPATIENT services [42 CFR 412.3e].: Yes Medical Necessity: Need Close Monitoring Due to Risk of Patient Decompensation, Need For IV Fluids, Need For Continuous Telemetry Monitoring, Risk of Complication if Not Cared For in Hospital Post Hospital 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 Obtain CBC with diff and BMP in AM.
[2017-10-28] MEDS: NORMAL SALINE 1000 ML 1,000 ML IV PRN (16:23)
[2017-10-28] MEDS: ATORVASTATIN CALCIUM 40 MG TABLET PO SCH (21:24)
[2017-10-29] MEDS: HYDROMORPHONE HCL INJ/PF 2 MG/ML AMPULE IV PRN ×5 (03:21→21:39)
[2017-10-29] MEDS: PROMETHAZINE HCL INJ 25 MG/1 ML VIAL IV PRN ×4 (03:21→21:39)
[2017-10-29] MEDS: LEVOTHYROXINE SODIUM 0.1 MG TABLET PO SCH (05:27)
[2017-10-29] MEDS: GABAPENTIN 300 MG CAPSULE PO SCH ×3 (05:27→21:39)
[2017-10-29] MEDS: NORMAL SALINE 1000 ML 1,000 ML IV PRN (05:50)
[2017-10-29] MEDS: LANSOPRAZOLE 30 MG TAB.RAP.DR PO SCH (07:48)
[2017-10-29 08:03] LABS: ABSOLUTE EOSINOPHILS # (AUTO) 0.1 10^3/uL (0.0-0.6); ABSOLUTE MONOCYTES (AUTO) 0.6 10^3/uL (0.1-1.4); ABSOLUTE NEUT (AUTO) 5.2 10^3/uL (1.7-8.2); BASOPHILS % (AUTO) 0.3 % (0-2); EOSINOPHILS % (AUTO) 1.6 % (0-6); HEMATOCRIT 34.6 % (36.0-47.0); HEMOGLOBIN 11.8 g/dL (12.0-15.5); LYMPHOCYTES % (AUTO) 25.1 % (13-45); MEAN CORPUSCULAR HEMOGLOBIN 26.8 pg (27.0-33.4); MEAN CORPUSCULAR VOLUME 79 fl (80-97); MONOCYTES % (AUTO) 7.2 % (3-13); PLATELET COUNT 356 10^3/uL (150-450); RED BLOOD COUNT 4.38 10^6/uL (3.72-5.28); RED CELL DISTRIBUTION WIDTH 13.8 % (11.5-14.0); SEGMENTED NEUTROPHILS % (AUTO) 65.8 % (42-78); TOTAL CELLS COUNTED % (AUTO) 100 %; WHITE BLOOD COUNT 7.9 10^3/uL (4.0-10.5)
[2017-10-29 08:18] LABS: ANION GAP 12 (5-19); BLOOD UREA NITROGEN 7 mg/dL (7-20); CALCIUM 9.2 mg/dL (8.4-10.2); CARBON DIOXIDE 22 mmol/L (22-30); CHLORIDE 103 mmol/L (98-107); GLUCOSE 104 mg/dL (75-110); POTASSIUM 3.8 mmol/L (3.6-5.0); SODIUM 137.4 mmol/L (137-145)
[2017-10-29] MEDS: HYDROXYCHLOROQUINE SULFATE 200 MG TABLET PO SCH ×2 (09:32→21:39)
[2017-10-29] MEDS: ASPIRIN 325 MG TABLET PO SCH (09:32)
[2017-10-29] MEDS: HYDROCHLOROTHIAZIDE 25 MG TABLET PO SCH (09:33)
[2017-10-29] MEDS: LOSARTAN POTASSIUM 50 MG TABLET PO SCH (09:33)
[2017-10-29] MEDS: GUAIFENESIN 600 MG TABLET.SA PO SCH ×2 (09:33→21:39)
--- NOTE | 2017-10-29 20:06 | PDOC PROGRESS REPORT ---
Subjective Progress Note for:: 10/29/17 Subjective:: She was seen by the bedside, she is symptomatic with nausea ,vomiting Reason For Visit: EPIGASTRIC PAIN,INTRACTABLE VOMITING,SLE Physical Exam Vital Signs: Temp Pulse Resp BP Pulse Ox 98.4 F 87 16 113/59 L 100 10/29/17 15:37 10/29/17 15:37 10/29/17 15:37 10/29/17 15:37 10/29/17 15:37 Intake & Output 10/28/17 10/29/17 10/30/17 06:59 06:59 06:59 Intake Total 3111 3865 1646 Output Total 2100 1700 Balance 1011 2165 1646 Weight 90.1 kg 90.4 kg General appearance: PRESENT: no acute distress Eye exam: PRESENT: PERRLA Ear exam: PRESENT: normal external ear exam Neck exam: PRESENT: full ROM Cardiovascular exam: PRESENT: RRR, +S1, +S2 Vascular exam: PRESENT: normal capillary refill GI/Abdominal exam: PRESENT: normal bowel sounds, soft Rectal exam: PRESENT: deferred Neurological exam: PRESENT: alert Results Laboratory Results: 10/29/17 07:49 10/29/17 07:49 10/29/17 10/29/17 07:49 07:49 WBC 7.9 RBC 4.38 Hgb 11.8 L Hct 34.6 L MCV 79 L MCH 26.8 L MCHC 34.0 RDW 13.8 Plt Count 356 Seg Neutrophils % 65.8 Lymphocytes % 25.1 Monocytes % 7.2 Eosinophils % 1.6 Basophils % 0.3 Absolute Neutrophils 5.2 Absolute Lymphocytes 2.0 Absolute Monocytes 0.6 Absolute Eosinophils 0.1 Absolute Basophils 0.0 Sodium 137.4 Potassium 3.8 Chloride 103 Carbon Dioxide 22 Anion Gap 12 BUN 7 Creatinine 0.85 Est GFR ( Amer) > 60 Est GFR (Non-Af Amer) > 60 Glucose 104 Calcium 9.2 10/11/17 10/11/17 10/11/17 16:00 16:00 23:00 Creatine Kinase 43 49 CK-MB (CK-2) 0.40 Troponin I < 0.012 10/11/17 10/12/17 10/12/17 23:00 06:51 06:51 Creatine Kinase 54 CK-MB (CK-2) 0.51 0.63 Troponin I < 0.012 < 0.012 Impressions: Chest X-Ray 10/11/17 14:49 IMPRESSION: NO ACUTE RADIOGRAPHIC FINDING IN THE CHEST. Assessment & Plan - Diagnosis (1) Urinary tract infection due to Enterococcus Is this a current diagnosis for this admission?: Yes (2) Intractable vomiting Qualifiers: Vomiting type: unspecified Nausea presence: with nausea Qualified Code(s) : R11.2 - Nausea with vomiting, unspecified Is this a current diagnosis for this admission?: Yes (3) Systemic lupus erythematosus Qualifiers: Systemic lupus erythematosus type: unspecified Systemic lupus erythematosus organ involvement: unspecified Qualified Code(s): M32.9 - Systemic lupus erythematosus, unspecified Is this a current diagnosis for this admission?: Yes (4) Urinary tract infection Qualifiers: Urinary tract infection type: site unspecified Hematuria presence: without hematuria Qualified Code(s): N39.0 - Urinary tract infection, site not specified Is this a current diagnosis for this admission?: Yes (5) Gastritis Qualifiers: Gastritis type: unspecified gastritis Chronicity: acute Gastritis bleeding: without bleeding Qualified Code(s): K29.00 - Acute gastritis without bleeding Is this a current diagnosis for this admission?: Yes
[2017-10-29] MEDS: ATORVASTATIN CALCIUM 40 MG TABLET PO SCH (21:39)
[2017-10-30] MEDS: PROMETHAZINE HCL INJ 25 MG/1 ML VIAL IV PRN ×3 (04:54→18:03)
[2017-10-30] MEDS: LEVOTHYROXINE SODIUM 0.1 MG TABLET PO SCH (06:04)
[2017-10-30] MEDS: GABAPENTIN 300 MG CAPSULE PO SCH ×3 (06:04→22:16)
[2017-10-30] MEDS: LANSOPRAZOLE 30 MG TAB.RAP.DR PO SCH (08:06)
[2017-10-30] MEDS: HYDROMORPHONE HCL INJ/PF 2 MG/ML AMPULE IV PRN ×4 (08:06→22:16)
[2017-10-30] MEDS: ASPIRIN 325 MG TABLET PO SCH (10:19)
[2017-10-30] MEDS: HYDROCHLOROTHIAZIDE 25 MG TABLET PO SCH (10:19)
[2017-10-30] MEDS: HYDROXYCHLOROQUINE SULFATE 200 MG TABLET PO SCH ×2 (10:20→22:16)
[2017-10-30] MEDS: LOSARTAN POTASSIUM 50 MG TABLET PO SCH (10:20)
[2017-10-30] MEDS: GUAIFENESIN 600 MG TABLET.SA PO SCH ×2 (10:20→22:16)
[2017-10-30] MEDS: ATORVASTATIN CALCIUM 40 MG TABLET PO SCH (22:16)
--- NOTE | 2017-10-30 22:35 | PDOC PROGRESS REPORT ---
Subjective Progress Note for:: 10/30/17 Subjective:: Patient was seen by the bedside, she stated that she still have nausea and vomiting, at this stage it seems that she has optimize inpatient care, she be discharged home in a.m. Reason For Visit: EPIGASTRIC PAIN,INTRACTABLE VOMITING,SLE Physical Exam Vital Signs: Temp Pulse Resp BP Pulse Ox 98.6 F 85 18 127/63 H 98 10/30/17 20:39 10/30/17 20:39 10/30/17 20:39 10/30/17 20:39 10/30/17 20:39 Intake & Output 10/29/17 10/30/17 10/31/17 06:59 06:59 06:59 Intake Total 3865 3146 900 Output Total 1700 550 Balance 2165 2596 900 Weight 90.4 kg 90.1 kg General appearance: PRESENT: no acute distress Eye exam: PRESENT: PERRLA Neck exam: PRESENT: full ROM Respiratory exam: PRESENT: clear to auscultation martínez Cardiovascular exam: PRESENT: RRR, +S1, +S2 Vascular exam: PRESENT: normal capillary refill GI/Abdominal exam: PRESENT: normal bowel sounds, soft Rectal exam: PRESENT: deferred Neurological exam: PRESENT: alert Psychiatric exam: PRESENT: appropriate affect, normal mood Skin exam: PRESENT: dry, intact, warm Results Laboratory Results: 10/29/17 07:49 10/29/17 07:49 10/11/17 10/11/17 10/11/17 16:00 16:00 23:00 Creatine Kinase 43 49 CK-MB (CK-2) 0.40 Troponin I < 0.012 10/11/17 10/12/17 10/12/17 23:00 06:51 06:51 Creatine Kinase 54 CK-MB (CK-2) 0.51 0.63 Troponin I < 0.012 < 0.012 Impressions: Chest X-Ray 10/11/17 14:49 IMPRESSION: NO ACUTE RADIOGRAPHIC FINDING IN THE CHEST. Assessment & Plan - Diagnosis (1) Urinary tract infection due to Enterococcus Is this a current diagnosis for this admission?: Yes (2) Intractable vomiting Qualifiers: Vomiting type: unspecified Nausea presence: with nausea Qualified Code(s) : R11.2 - Nausea with vomiting, unspecified Is this a current diagnosis for this admission?: Yes (3) Systemic lupus erythematosus Qualifiers: Systemic lupus erythematosus type: unspecified Systemic lupus erythematosus organ involvement: unspecified Qualified Code(s): M32.9 - Systemic lupus erythematosus, unspecified Is this a current diagnosis for this admission?: Yes (4) Urinary tract infection Qualifiers: Urinary tract infection type: site unspecified Hematuria presence: without hematuria Qualified Code(s): N39.0 - Urinary tract infection, site not specified Is this a current diagnosis for this admission?: Yes (5) Gastritis Qualifiers: Gastritis type: unspecified gastritis Chronicity: acute Gastritis bleeding: without bleeding Qualified Code(s): K29.00 - Acute gastritis without bleeding Is this a current diagnosis for this admission?: Yes
[2017-10-31] MEDS: PROMETHAZINE HCL INJ 25 MG/1 ML VIAL IV PRN ×3 (00:10→13:52)
[2017-10-31] MEDS: NORMAL SALINE 1000 ML 1,000 ML IV PRN (03:05)
[2017-10-31] MEDS: HYDROMORPHONE HCL INJ/PF 2 MG/ML AMPULE IV PRN ×4 (03:07→16:08)
[2017-10-31] MEDS: LEVOTHYROXINE SODIUM 0.1 MG TABLET PO SCH (05:37)
[2017-10-31] MEDS: GABAPENTIN 300 MG CAPSULE PO SCH ×2 (05:37→13:52)
[2017-10-31] MEDS: LANSOPRAZOLE 30 MG TAB.RAP.DR PO SCH (07:39)
[2017-10-31] MEDS: HYDROCHLOROTHIAZIDE 25 MG TABLET PO SCH (11:57)
[2017-10-31] MEDS: GUAIFENESIN 600 MG TABLET.SA PO SCH (11:57)
[2017-10-31] MEDS: ASPIRIN 325 MG TABLET PO SCH (11:57)
[2017-10-31] MEDS: LOSARTAN POTASSIUM 50 MG TABLET PO SCH (11:58)
[2017-10-31] MEDS: HYDROXYCHLOROQUINE SULFATE 200 MG TABLET PO SCH (11:58)
--- NOTE | 2017-10-31 15:32 | PDOC DISCHARGE SUMMARY ---
General - Admit/Disc Date/PCP Admission Date/Primary Care Provider: 10/15/17 08:00 IAN MUÑOZ MD Discharge Date: 10/31/17 - Discharge Diagnosis (1) Urinary tract infection due to Enterococcus Is this a current diagnosis for this admission?: Yes (2) Intractable vomiting Is this a current diagnosis for this admission?: Yes (3) Systemic lupus erythematosus Is this a current diagnosis for this admission?: Yes (4) Urinary tract infection Is this a current diagnosis for this admission?: Yes (5) Gastritis Is this a current diagnosis for this admission?: Yes (6) Coronary artery disease Is this a current diagnosis for this admission?: Yes - Additional Information Resuscitation Status: Full Code Discharge Activity: Activity As Tolerated Home Medications: Aspirin [Aspirin 325 mg Tablet] 325 mg PO DAILY 10/11/17 Atorvastatin Calcium [Lipitor 40 mg Tablet] 40 mg PO QHS 10/11/17 Cyanocobalamin (Vitamin B-12) [Vitamin B-12 Inj 1000 Mcg/1 ml Vial] 1,000 mcg IM .MONTHLY 10/11/17 Cyclobenzaprine HCl [Flexeril 10 mg Tablet] 10 mg PO Q8HP PRN 10/11/17 Diphenoxylate HCl/Atropine [Lomotil 2.5-0.025 mg Tablet] 1 tab PO Q6 10/11/17 Gabapentin [Neurontin 300 mg Capsule] 600 mg PO Q8 10/11/17 Hydroxychloroquine Sulfate [Plaquenil 200 mg Tablet] 200 mg PO Q12 10/11/17 Levothyroxine Sodium [Synthroid 0.1 mg Tablet] 0.1 mg PO Q6AM 10/11/17 Losartan/Hydrochlorothiazide [Losartan-Hctz 100-25 mg Tab] 1 tab PO DAILY Hydrocodone Bitartrate [Zohydro ER] 1 tab PO Q12H 10/13/17 Hydrocodone/Acetaminophen [Hydrocodone-Acetamin 10-325 mg] 1 tab PO Q6HP PRN 11/25 History of Present Illness History of Present Illness: Patient is a 62-year-old female she came to the office for evaluation of intractable vomiting associated with upper abdominal discomfort there is no diarrhea. She was recently admitted and discharged from this hospital on 2017 for similar presentation at that time a CAT scan of the abdomen and pelvis with no contrast was ordered, it was negative for any acute pathology. Patient said she feels dehydrated, she is not able to keep any food down, she has not been drinking, in the office she was examined, she looks apprehensive, she was clinically dry/dehydrated, I have no other choice other than to admit her directly from the office into the hospital for further evaluation and management. I discussed her condition with the ore miner Dr. Lea for upper endoscopy, she was brought in for observation, she had upper endoscopy done today, she was found to have erythema of the antrum of the stomach biopsy was taken. Hospital Course Hospital Course: Patient was admitted for the management of persistent vomiting despite outpatient treatment, she was seen by Dr. Lea ore miner, she underwent EGD, she was found to have gastritis. The urine culture grew enterococcus faecalis sensitive to vancomycin and nitrofurantoin. She has allergy to nitrofurantoin, she was treated with IV vancomycin, hospital course was protracted partly because of persistent vomiting. She was treated with antiemetics, Zofran, she also have chronic pain requiring, Dilaudid for pain control. Physical Exam Vital Signs: Temp Pulse Resp BP Pulse Ox 98.3 F 78 18 131/56 H 98 10/31/17 07:37 10/31/17 07:37 10/31/17 07:37 10/31/17 07:37 10/31/17 07:37 Intake & Output 10/30/17 10/31/17 11/01/17 06:59 06:59 06:59 Intake Total 3146 3000 Output Total 550 1300 Balance 2596 1700 Weight 90.1 kg 89.5 kg General appearance: PRESENT: no acute distress Eye exam: PRESENT: PERRLA Neck exam: PRESENT: full ROM Respiratory exam: PRESENT: clear to auscultation martínez Cardiovascular exam: PRESENT: RRR, +S1, +S2 Vascular exam: PRESENT: normal capillary refill GI/Abdominal exam: PRESENT: normal bowel sounds, soft Rectal exam: PRESENT: deferred Neurological exam: PRESENT: alert Psychiatric exam: PRESENT: appropriate affect, normal mood Skin exam: PRESENT: dry, intact, warm Results Laboratory Results: 10/29/17 07:49 10/29/17 07:49 10/11/17 10/11/17 10/11/17 16:00 16:00 23:00 Creatine Kinase 43 49 CK-MB (CK-2) 0.40 Troponin I < 0.012 10/11/17 10/12/17 10/12/17 23:00 06:51 06:51 Creatine Kinase 54 CK-MB (CK-2) 0.51 0.63 Troponin I < 0.012 < 0.012 Impressions: Chest X-Ray 10/11/17 14:49 IMPRESSION: NO ACUTE RADIOGRAPHIC FINDING IN THE CHEST. Qualifiers - * PATEINT BEING DISCHARGED WITH ANY OF THE FOLLOWING DIAGNOSIS?: No VTE patient discharged on overlapping Therapy?: No
[2017-10-31 15:58] VITALS: BP 134/72
[2017-11-03] MEDS ORDERED: CYANOCOBALAMIN (VITAMIN B-12) INJ 1000 MCG/1 ML VIAL IM SCH (10:00)
== END 2017-10-31 16:00 | disposition home or self-care (01) | DRG 392 ==
LOC: EH 12:54 → 3W 16:39 → OBSVTOIN 10-15 08:00 → 4N 10-21 01:39
PROVIDERS: ADMIT Internal Medicine; ATTEND Internal Medicine
PROC: 0DB68ZX Excision of Stomach, Via Natural or Artificial Opening Endoscopic, Diagnostic (ICD-10-PCS; principal; 2017-10-12 15:00)
DX: K29.00 Acute gastritis without bleeding (principal); N39.0 Urinary tract infection, site not specified; E86.0 Dehydration; M32.9 Systemic lupus erythematosus, unspecified; I25.10 Atherosclerotic heart disease of native coronary artery without angina pectoris; B95.2 Enterococcus as the cause of diseases classified elsewhere; G89.29 Other chronic pain; M79.7 Fibromyalgia; K44.9 Diaphragmatic hernia without obstruction or gangrene; Z96.653 Presence of artificial knee joint, bilateral; I50.9 Heart failure, unspecified; E03.9 Hypothyroidism, unspecified; Z96.649 Presence of unspecified artificial hip joint; Z79.82 Long term (current) use of aspirin; Z79.02 Long term (current) use of antithrombotics/antiplatelets; Z79.899 Other long term (current) drug therapy; Z86.711 Personal history of pulmonary embolism; Z87.891 Personal history of nicotine dependence; Z85.41 Personal history of malignant neoplasm of cervix uteri; Z85.43 Personal history of malignant neoplasm of ovary; Z95.5 Presence of coronary angioplasty implant and graft; Z90.49 Acquired absence of other specified parts of digestive tract; Z90.710 Acquired absence of both cervix and uterus; Z88.8 Allergy status to other drugs, medicaments and biological substances; Z91.030 Bee allergy status; Z88.0 Allergy status to penicillin; Z86.010 Personal history of colon polyps; Z87.442 Personal history of urinary calculi
CPT/HCPCS: 36415; 43239; 71045; 80048; 80053; 80076; 80202; 81001; 82550; 82553; 82565; 84484; 85025; 85027; 85652; 86225; 86235; 87040; 87086; 87088; 87186; 88305; 88342; 93005; 93010; G0378; G0379; J0171; J0744; J1170; J1610; J2250; J2310; J2550; J3010; J3370; J3480; J3490; J7030; J7060; S0119

== ENCOUNTER 2017-11-05 14:14 | Inpatient (IN) | payer MEDICARE, OTHER ==
[2017-11-05 15:54] LABS: AMORPHOUS SEDIMENT,URINE TRACE /HPF; APPEARANCE,URINE CLOUDY; BILIRUBIN,URINE NEGATIVE (NEGATIVE); COLOR,URINE YELLOW; GLUCOSE, URINE NEGATIVE (NEGATIVE); KETONES,URINE NEGATIVE (NEGATIVE); LEUKOCYTE ESTERASE,URINE LARGE (NEGATIVE); NITRITE,URINE POSITIVE (NEGATIVE); PROTEIN,URINE NEGATIVE (NEGATIVE); URINE SPECIFIC GRAVITY 1.014; UROBILINOGEN,URINE NEGATIVE mg/dL (<2.0)
[2017-11-05 16:02] LABS: ABSOLUTE LYMPHOCYTES (AUTO) 1.1 10^3/uL (0.5-4.7); ABSOLUTE MONOCYTES (AUTO) 0.6 10^3/uL (0.1-1.4); ABSOLUTE NEUT (AUTO) 5.8 10^3/uL (1.7-8.2); BASOPHILS % (AUTO) 0.2 % (0-2); EOSINOPHILS % (AUTO) 0.2 % (0-6); HEMATOCRIT 38.4 % (36.0-47.0); MEAN CORPUSCULAR HEMOGLOBIN 26.4 pg (27.0-33.4); MEAN CORPUSCULAR HGB CONC 33.8 g/dL (32.0-36.0); MEAN CORPUSCULAR VOLUME 78 fl (80-97); MONOCYTES % (AUTO) 7.7 % (3-13); PLATELET COUNT 349 10^3/uL (150-450); RED BLOOD COUNT 4.93 10^6/uL (3.72-5.28); RED CELL DISTRIBUTION WIDTH 14.3 % (11.5-14.0); SEGMENTED NEUTROPHILS % (AUTO) 76.9 % (42-78); TOTAL CELLS COUNTED % (AUTO) 100 %; WHITE BLOOD COUNT 7.6 10^3/uL (4.0-10.5)
--- NOTE | 2017-11-05 16:10 | RADIOLOGY REPORT (SQ) ---
EXAM DESCRIPTION: CT HEAD WITHOUT COMPLETED DATE/TIME: 11/05/2017 3:57 pm REASON FOR STUDY: headache D50.9 IRON DEFICIENCY ANEMIA, UNSPECIFIED G44.201 TENSION-TYPE HEADACHE , UNSPECIFIED, INTRACTABLE R10.0 ACUTE ABDOMEN COMPARISON: [address] brain exams since 06/03/2010, most recently 11/09/2016 TECHNIQUE: Axial images acquired through the brain without intravenous contrast. Images reviewed wi th bone, brain and subdural windows. Images stored on PACS. All CT scanners at this facility use dose modulation, iterative reconstruction, and/or weight based d osing when appropriate to reduce radiation dose to as low as reasonably achievable (ALARA). [facility]: Dose Right [facility]: CareDose [facility]: Dose Right [facility]: Teradose 4D [facility]: KeenSkim RADIATION DOSE: CT Rad equipment meets quality standard of care and radiation dose reduction techniq ues were employed. CTDIvol: 64.6 mGy. DLP: 1163 mGy-cm. mGy. LIMITATIONS: Mild motion artifact FINDINGS: VENTRICLES: Normal size and contour. CEREBRUM: No masses. No hemorrhage. No midline shift. No evidence for acute infarction. Normal gra y/white matter differentiation. No areas of low density in the white matter. CEREBELLUM: No masses. No hemorrhage. No alteration of density. No evidence for acute infarction. EXTRAAXIAL SPACES: No fluid collections. No masses. ORBITS AND GLOBE: No intra- or extraconal masses. Normal contour of globe without masses. CALVARIUM: No fracture. PARANASAL SINUSES: No fluid or mucosal thickening. SOFT TISSUES: No mass or hematoma. OTHER: No other significant finding. IMPRESSION: NORMAL BRAIN CT WITHOUT CONTRAST. EVIDENCE OF ACUTE STROKE: NO. COMMENT: Quality ID # [id number]: Final reports with documentation of one or more dose reduction techniques (e.g., Automated exposure control, adjustment of the mA and/or kV according to patient size, use of iterative reconstruction technique) TECHNICAL DOCUMENTATION: JOB ID: [id number] [employer]- All Rights Reserved Reading location - IP/workstation name: [email or web address]
[2017-11-05 16:28] LABS: ALANINE AMINOTRANSFERASE 23 U/L (9-52); ALKALINE PHOSPHATASE 126 U/L (38-126); ANION GAP 12 (5-19); ASPARTATE AMINO TRANSFERASE 27 U/L (14-36); BILIRUBIN,DIRECT 0.4 mg/dL (0.0-0.4); BILIRUBIN,TOTAL 0.4 mg/dL (0.2-1.3); BLOOD UREA NITROGEN 13 mg/dL (7-20); CALCIUM 9.5 mg/dL (8.4-10.2); CARBON DIOXIDE 25 mmol/L (22-30); CHLORIDE 99 mmol/L (98-107); GLUCOSE 109 mg/dL (75-110); POTASSIUM 3.6 mmol/L (3.6-5.0); SODIUM 135.6 mmol/L (137-145); TOTAL PROTEIN 6.5 g/dL (6.3-8.2)
[2017-11-05] MEDS ORDERED: (PENDING PHARMACY ID) (Losartan/Hydrochlorothiazide [Losartan-Hctz 100-25 Mg Tab] 1 TAB) PO SCH (18:30)
[2017-11-05] MEDS: NORMAL SALINE 1000 ML 1,000 ML IV PRN (19:03)
[2017-11-05] MEDS: HYDROMORPHONE HCL INJ/PF 2 MG/ML AMPULE IV PRN ×2 (19:03→23:38)
[2017-11-05] MEDS: ONDANSETRON HCL INJ/PF 4 MG/2 ML SDV IV PRN (19:04)
[2017-11-05] MEDS ORDERED: HYDROCHLOROTHIAZIDE 25 MG TABLET PO ONE (19:30)
[2017-11-05] MEDS ORDERED: LOSARTAN POTASSIUM 50 MG TABLET PO ONE (20:00)
[2017-11-05] MEDS ORDERED: CYCLOBENZAPRINE HCL 10 MG TABLET PO PRN (21:47)
--- NOTE | 2017-11-05 21:54 | PDOC H&P ---
History of Present Illness Admission Date/PCP: 11/05/17 14:29 IAN MUÑOZ MD History of Present Illness: VALENTE MUNOZ is a 62 year old female, She was just discharged on 2017 when she was admitted for the management of intractable vomiting at the time she was found to have enterococcus faecalis UTI. She came to the office today, she stated that since she was discharged she has not stop vomiting, she said she is not able to keep any food down, the last time she was in the hospital she had EGD done, it showed mild gastritis otherwise it was a negative study. I am not sure what the etiology of this persistent intractable vomiting is . Past Medical History Cardiac Medical History: Reports: Congestive Heart Failure, Coronary Artery Disease, DVT, Myocardial Infarction, Hyperlipidema, Hypertension, Pulmonary Embolism Pulmonary Medical History: Reports: Bronchitis, Chronic Obstructive Pulmonary Disease (COPD) Endocrine Medical History: Reports: Hypothyroidism Malignancy Medical History: Reports: Cervical Cancer, Ovarian Cancer GI Medical History: Reports: Gastroesophageal Reflux Disease, Hiatal Hernia - Repaired Musculoskeltal Medical History: Reports: Arthritis - Lupus, Fibromyalgia - Lupus Psychiatric Medical History: Reports: Depression Denies: Bipolar Disorder, Dementia, Post Traumatic Stress Disorder Hematology: Reports: Anemia - HX OF LOW NA AND K,LOW IRON WILL HAVE IRON TRANS FUSION 05/04. Infectious Medical History: Reports: Clostridium Difficile - Was negative in October2015. Not yet successfully collected stool Denies: HIV Past Surgical History Past Surgical History: Reports: Appendectomy, Cardiac Catheterization, Section, Cholecystectomy, Coronary Stent - 3 stents, Herniorrhaphy, Hysterectomy , Orthopedic Surgery - Right knee, bilateral knee replacements and hip replacement metal plate in, Tonsillectomy Social History Smoking Status: Former Smoker Last Time Smoked: 2013 Frequency of Alcohol Use: Occasional Hx Recreational Drug Use: No Drugs: None Hx Prescription Drug Abuse: No Family History Family History: Arthritis, COPD, Hyperlipidemia, Hypertension, Malignancy, Thyroid Disfunction Parental Family History Reviewed: Yes Children Family History Reviewed: Yes Sibling(s) Family History Reviewed.: Yes Medication/Allergy Home Medications: Aspirin [Aspirin 325 mg Tablet] 325 mg PO DAILY 10/11/17 Atorvastatin Calcium [Lipitor 40 mg Tablet] 40 mg PO QHS 10/11/17 Cyanocobalamin (Vitamin B-12) [Vitamin B-12 Inj 1000 Mcg/1 ml Vial] 1,000 mcg IM .MONTHLY 10/11/17 Cyclobenzaprine HCl [Flexeril 10 mg Tablet] 10 mg PO Q8HP PRN 10/11/17 Diphenoxylate HCl/Atropine [Lomotil 2.5-0.025 mg Tablet] 1 tab PO Q6 10/11/17 Gabapentin [Neurontin 300 mg Capsule] 600 mg PO Q8 10/11/17 Hydroxychloroquine Sulfate [Plaquenil 200 mg Tablet] 200 mg PO Q12 10/11/17 Levothyroxine Sodium [Synthroid 0.1 mg Tablet] 0.1 mg PO Q6AM 10/11/17 Losartan/Hydrochlorothiazide [Losartan-Hctz 100-25 mg Tab] 1 tab PO DAILY Hydrocodone Bitartrate [Zohydro ER] 1 tab PO Q12 10/13/17 Hydrocodone/Acetaminophen [Hydrocodone-Acetamin 10-325 mg] 1 tab PO Q6HP PRN 11/25 Allergies/Adverse Reactions: irbesartan [From Avapro] Allergy (Severe, Verified 05/03/17 09:31) swelling of face nitrofurantoin macrocrystalline [From Macrobid] Allergy (Severe, Verified 09:31) Generalized edema Penicillins Allergy (Severe, Verified 05/03/17 09:31) eyes swelled pregabalin [From Lyrica] Allergy (Severe, Verified 05/03/17 09:31) Equilibrium Issues venom-honey bee [bee venom (honey bee)] Allergy (Verified 05/03/17 09:31) Anaphylaxis Review of Systems Constitutional: ABSENT: chills, fever(s), headache(s), weight gain, weight loss Eyes: ABSENT: visual disturbances Ears: ABSENT: hearing changes Cardiovascular: ABSENT: chest pain, dyspnea on exertion, edema, orthropnea, palpitations Respiratory: ABSENT: cough, hemoptysis Gastrointestinal: PRESENT: vomiting Genitourinary: ABSENT: dysuria, hematuria Musculoskeletal: ABSENT: joint swelling Integumentary: ABSENT: rash, wounds Neurological: ABSENT: abnormal gait, abnormal speech, confusion, dizziness, focal weakness, syncope Psychiatric: ABSENT: anxiety, depression, homidical ideation, suicidal ideation Endocrine: ABSENT: cold intolerance, heat intolerance, menstrual abnormalities, polydipsia, polyuria Hematologic/Lymphatic: ABSENT: easy bleeding, easy bruising, lymphadenopathy Physical Exam Vital Signs: Temp Pulse Resp BP Pulse Ox 97.6 F 83 16 140/46 H 96 11/05/17 21:15 11/05/17 21:15 11/05/17 21:15 11/05/17 21:15 11/05/17 21:15 Intake & Output 11/04/17 11/05/17 11/06/17 06:59 06:59 06:59 Weight 80.4 kg General appearance: PRESENT: no acute distress, well-developed, well-nourished Head exam: PRESENT: atraumatic, normocephalic Eye exam: PRESENT: conjunctiva pink, EOMI, PERRLA Ear exam: PRESENT: normal external ear exam Mouth exam: PRESENT: moist, tongue midline Neck exam: PRESENT: full ROM Respiratory exam: PRESENT: clear to auscultation martínez Cardiovascular exam: PRESENT: RRR, +S1, +S2 Vascular exam: PRESENT: normal capillary refill GI/Abdominal exam: PRESENT: normal bowel sounds, soft Rectal exam: PRESENT: deferred Neurological exam: PRESENT: alert Psychiatric exam: PRESENT: appropriate affect, normal mood Skin exam: PRESENT: dry, intact, warm Results Laboratory Results: 11/05/17 15:48 11/05/17 15:48 11/05/17 11/05/17 11/05/17 15:30 15:48 15:48 WBC 7.6 RBC 4.93 Hgb 13.0 Hct 38.4 MCV 78 L MCH 26.4 L MCHC 33.8 RDW 14.3 H Plt Count 349 Seg Neutrophils % 76.9 Lymphocytes % 15.0 Monocytes % 7.7 Eosinophils % 0.2 Basophils % 0.2 Absolute Neutrophils 5.8 Absolute Lymphocytes 1.1 Absolute Monocytes 0.6 Absolute Eosinophils 0.0 Absolute Basophils 0.0 Sodium 135.6 L Potassium 3.6 Chloride 99 Carbon Dioxide 25 Anion Gap 12 BUN 13 Creatinine 0.94 Est GFR ( Amer) > 60 Est GFR (Non-Af Amer) > 60 Glucose 109 Calcium 9.5 Total Bilirubin 0.4 AST 27 ALT 23 Alkaline Phosphatase 126 Total Protein 6.5 Albumin 4.0 Urine Color YELLOW Urine Appearance CLOUDY Urine pH 7.0 Ur Specific [place] 1.014 Urine Protein NEGATIVE Urine Glucose (UA) NEGATIVE Urine Ketones NEGATIVE Urine Blood NEGATIVE Urine Nitrite POSITIVE H Ur Leukocyte Esterase LARGE H Urine WBC (Auto) >182 Urine RBC (Auto) 4 Impressions: Head CT 11/05/17 00:00 IMPRESSION: NORMAL BRAIN CT WITHOUT CONTRAST. EVIDENCE OF ACUTE STROKE: NO. Assessment & Plan - Diagnosis (1) Intractable vomiting Qualifiers: Nausea presence: with nausea Is this a current diagnosis for this admission?: Yes Plan: The last time she was admitted to the hospital, CAT scan of the abdomen and pelvis was done, no acute pathology was identified, I do not see any value in obtaining on the CAT scan at the moment especially with a benign abdomen on examination. She also add upper endoscopy done the last time she was admitted she was found to have mild erythema of the stomach mucosa thought to be due to nonspecific gastritis.The etiology of this vomiting is not clear at this time
[2017-11-05] MEDS ORDERED: HYDROCODONE BITARTRATE PO SCH (22:00)
[2017-11-05] MEDS ORDERED: CYANOCOBALAMIN (VITAMIN B-12) INJ 1000 MCG/1 ML VIAL IM SCH (22:00)
[2017-11-05] MEDS: ATORVASTATIN CALCIUM 40 MG TABLET PO SCH (22:47)
[2017-11-05] MEDS: GABAPENTIN 300 MG CAPSULE PO SCH (22:47)
[2017-11-05] MEDS: DIPHENOXYLATE HCL/ATROP SULF 2.5-0.025 MG TABLET PO SCH (22:55)
[2017-11-05] MEDS ORDERED: HYDROXYCHLOROQUINE SULFATE 200 MG TABLET ONE (23:04)
[2017-11-05] MEDS: HYDROXYCHLOROQUINE SULFATE 200 MG TABLET PO SCH (23:38)
[2017-11-06] MEDS: ONDANSETRON HCL INJ/PF 4 MG/2 ML SDV IV PRN ×4 (01:57→21:18)
[2017-11-06] MEDS: HYDROCODONE/ACETAMINOPHEN 10-325 MG TABLET PO PRN (03:01)
[2017-11-06] MEDS: HYDROMORPHONE HCL INJ/PF 2 MG/ML AMPULE IV PRN ×5 (03:51→21:18)
[2017-11-06] MEDS: LEVOTHYROXINE SODIUM 0.1 MG TABLET PO SCH (05:46)
[2017-11-06] MEDS: DIPHENOXYLATE HCL/ATROP SULF 2.5-0.025 MG TABLET PO SCH ×4 (05:46→23:15)
[2017-11-06] MEDS: GABAPENTIN 300 MG CAPSULE PO SCH ×3 (05:46→21:18)
[2017-11-06] MEDS: NORMAL SALINE 1000 ML 1,000 ML IV PRN (08:28)
[2017-11-06] MEDS: HYDROXYCHLOROQUINE SULFATE 200 MG TABLET PO SCH ×2 (09:30→21:18)
[2017-11-06] MEDS: LOSARTAN POTASSIUM 50 MG TABLET PO SCH (09:35)
[2017-11-06] MEDS: HYDROCHLOROTHIAZIDE 25 MG TABLET PO SCH (09:35)
--- NOTE | 2017-11-06 19:37 | PDOC PROGRESS REPORT ---
Subjective Progress Note for:: 11/06/17 Subjective:: She complained of burning sensation on urination, the last time she was admitted which was recently she was diagnosed with Enterococcus faecalis UTI, she was treated with intravenous vancomycin for a total of 10 days. The urine dipstick showed pyuria, bacteriuria but no specific organism is so far culture from the urine. She also continues to complain of vomiting Reason For Visit: INTRACTABLE BOWELS Physical Exam Vital Signs: Temp Pulse Resp BP Pulse Ox 98.2 F 81 14 122/58 L 97 11/06/17 16:16 11/06/17 16:16 11/06/17 16:16 11/06/17 16:16 11/06/17 16:16 Intake & Output 11/05/17 11/06/17 11/07/17 06:59 06:59 06:59 Intake Total 1400 2005 Output Total 200 400 Balance 1200 1605 Weight 80.4 kg General appearance: PRESENT: no acute distress, well-developed, well-nourished Head exam: PRESENT: atraumatic, normocephalic Eye exam: PRESENT: conjunctiva pink, EOMI, PERRLA Ear exam: PRESENT: normal external ear exam Mouth exam: PRESENT: moist, tongue midline Neck exam: PRESENT: full ROM Respiratory exam: PRESENT: clear to auscultation martínez Cardiovascular exam: PRESENT: RRR, +S1, +S2 Pulses: PRESENT: normal dorsalis pedis pul, +2 pedal pulses bilateral GI/Abdominal exam: PRESENT: normal bowel sounds, soft Rectal exam: PRESENT: deferred Neurological exam: PRESENT: alert Psychiatric exam: PRESENT: appropriate affect, normal mood Skin exam: PRESENT: dry, intact, warm Results Laboratory Results: 11/05/17 15:48 11/05/17 15:48 Impressions: Head CT 11/05/17 00:00 IMPRESSION: NORMAL BRAIN CT WITHOUT CONTRAST. EVIDENCE OF ACUTE STROKE: NO. Assessment & Plan - Diagnosis (1) Intractable vomiting Qualifiers: Nausea presence: with nausea (2) Systemic lupus erythematosus Qualifiers: Systemic lupus erythematosus type: unspecified Systemic lupus erythematosus organ involvement: unspecified Qualified Code(s): M32.9 - Systemic lupus erythematosus, unspecified Is this a current diagnosis for this admission?: Yes (3) Coronary artery disease Qualifiers: Coronary Disease-Associated Artery/Lesion type: [place] artery [place] vs. transplanted heart: [place] heart Is this a current diagnosis for this admission?: Yes
[2017-11-06] MEDS: ATORVASTATIN CALCIUM 40 MG TABLET PO SCH (21:18)
[2017-11-07] MEDS: ONDANSETRON HCL INJ/PF 4 MG/2 ML SDV IV PRN ×4 (03:14→23:08)
[2017-11-07] MEDS: HYDROMORPHONE HCL INJ/PF 2 MG/ML AMPULE IV PRN ×5 (03:14→23:08)
[2017-11-07] MEDS: DIPHENOXYLATE HCL/ATROP SULF 2.5-0.025 MG TABLET PO SCH ×4 (05:04→23:08)
[2017-11-07] MEDS: LEVOTHYROXINE SODIUM 0.1 MG TABLET PO SCH (05:31)
[2017-11-07] MEDS: GABAPENTIN 300 MG CAPSULE PO SCH ×3 (05:31→22:20)
[2017-11-07] MEDS: HYDROCHLOROTHIAZIDE 25 MG TABLET PO SCH (09:32)
[2017-11-07] MEDS: HYDROXYCHLOROQUINE SULFATE 200 MG TABLET PO SCH ×2 (09:32→22:20)
[2017-11-07] MEDS: LOSARTAN POTASSIUM 50 MG TABLET PO SCH (09:32)
--- NOTE | 2017-11-07 21:14 | PDOC PROGRESS REPORT ---
Subjective Progress Note for:: 11/07/17 Subjective:: She complained of burning sensation on urination, the last time she was admitted which was recently she was diagnosed with Enterococcus faecalis UTI, she was treated with intravenous vancomycin for a total of 10 days. The urine dipstick showed pyuria, bacteriuria but no specific organism is so far culture from the urine. She also continues to complain of vomiting Reason For Visit: INTRACTABLE BOWELS Physical Exam Vital Signs: Temp Pulse Resp BP Pulse Ox 98.6 F 79 12 122/60 97 11/07/17 15:41 11/07/17 15:41 11/07/17 15:41 11/07/17 15:41 11/07/17 15:41 Intake & Output 11/06/17 11/07/17 11/08/17 06:59 06:59 06:59 Intake Total 1400 2725 1324 Output Total 200 1300 1500 Balance 1200 1425 -176 Weight 80.4 kg General appearance: PRESENT: no acute distress, well-developed, well-nourished Head exam: PRESENT: atraumatic, normocephalic Eye exam: PRESENT: conjunctiva pink, EOMI, PERRLA Ear exam: PRESENT: normal external ear exam Mouth exam: PRESENT: moist, tongue midline Neck exam: PRESENT: full ROM Respiratory exam: PRESENT: clear to auscultation martínez Cardiovascular exam: PRESENT: RRR, +S1, +S2 Vascular exam: PRESENT: normal capillary refill GI/Abdominal exam: PRESENT: normal bowel sounds, soft Rectal exam: PRESENT: deferred Neurological exam: PRESENT: alert. ABSENT: motor sensory deficit Psychiatric exam: PRESENT: appropriate affect, normal mood Skin exam: PRESENT: dry, intact, warm. ABSENT: cyanosis, rash Results Laboratory Results: 11/05/17 15:48 11/05/17 15:48 Impressions: Head CT 11/05/17 00:00 IMPRESSION: NORMAL BRAIN CT WITHOUT CONTRAST. EVIDENCE OF ACUTE STROKE: NO. Assessment & Plan - Diagnosis (1) Intractable vomiting Qualifiers: Nausea presence: with nausea Is this a current diagnosis for this admission?: Yes (2) Systemic lupus erythematosus Qualifiers: Systemic lupus erythematosus type: unspecified Systemic lupus erythematosus organ involvement: unspecified Qualified Code(s): M32.9 - Systemic lupus erythematosus, unspecified Is this a current diagnosis for this admission?: Yes (3) Coronary artery disease Qualifiers: Coronary Disease-Associated Artery/Lesion type: [place] artery [place] vs. transplanted heart: [place] heart Is this a current diagnosis for this admission?: Yes (4) Recurrent urinary tract infection Is this a current diagnosis for this admission?: Yes Plan: Start IV Cipro
[2017-11-07] MEDS: CIPROFLOXACIN 400 MG/D5W RTU 400 MG/200 ML RTUPB IV SCH (22:20)
[2017-11-07] MEDS: ATORVASTATIN CALCIUM 40 MG TABLET PO SCH (22:20)
[2017-11-08] MEDS: HYDROMORPHONE HCL INJ/PF 2 MG/ML AMPULE IV PRN ×5 (03:46→22:14)
[2017-11-08] MEDS: DIPHENOXYLATE HCL/ATROP SULF 2.5-0.025 MG TABLET PO SCH ×3 (05:03→17:55)
[2017-11-08] MEDS: GABAPENTIN 300 MG CAPSULE PO SCH ×3 (05:03→21:36)
[2017-11-08] MEDS: ONDANSETRON HCL INJ/PF 4 MG/2 ML SDV IV PRN ×3 (05:03→17:55)
[2017-11-08] MEDS: LEVOTHYROXINE SODIUM 0.1 MG TABLET PO SCH (05:03)
[2017-11-08] MEDS: NORMAL SALINE 1000 ML 1,000 ML IV PRN ×2 (05:06→20:31)
[2017-11-08] MEDS: HYDROCHLOROTHIAZIDE 25 MG TABLET PO SCH (10:52)
[2017-11-08] MEDS: HYDROXYCHLOROQUINE SULFATE 200 MG TABLET PO SCH ×2 (10:52→21:36)
[2017-11-08] MEDS: LOSARTAN POTASSIUM 50 MG TABLET PO SCH (10:52)
[2017-11-08] MEDS: CIPROFLOXACIN 400 MG/D5W RTU 400 MG/200 ML RTUPB IV SCH (10:52)
[2017-11-08] MEDS ORDERED: IMIPENEM/CILASTATIN SODIUM 1,000 MG in NORMAL SALINE 250 ML IV SCH (17:00)
[2017-11-08] MEDS: IMIPENEM/CILASTATIN SODIUM 500 MG in NORMAL SALINE 100 ML IV SCH (18:57)
[2017-11-08] MEDS: ATORVASTATIN CALCIUM 40 MG TABLET PO SCH (21:36)
--- NOTE | 2017-11-08 22:27 | PDOC PROGRESS REPORT ---
Subjective Progress Note for:: 11/08/17 Subjective:: The urine culture grew ESBL Klebsiella specie Reason For Visit: INTRACTABLE BOWEL Physical Exam Vital Signs: Temp Pulse Resp BP Pulse Ox 98.6 F 89 18 127/56 H 100 11/08/17 19:42 11/08/17 19:42 11/08/17 19:42 11/08/17 19:42 11/08/17 19:42 Intake & Output 11/07/17 11/08/17 11/09/17 06:59 06:59 06:59 Intake Total 2725 2774 1200 Output Total 1300 2100 Balance 6315 429 7367 General appearance: PRESENT: no acute distress Eye exam: PRESENT: PERRLA Respiratory exam: PRESENT: clear to auscultation martínez Cardiovascular exam: PRESENT: +S1, +S2 GI/Abdominal exam: PRESENT: soft Neurological exam: PRESENT: alert, CN II-XII grossly intact Results Laboratory Results: 11/05/17 15:48 11/05/17 15:48 11/05/17 15:30 Clean Catch Midstream Urine Culture - Final Klebsiella Pneumoniae-Esbl Impressions: Head CT 11/05/17 00:00 IMPRESSION: NORMAL BRAIN CT WITHOUT CONTRAST. EVIDENCE OF ACUTE STROKE: NO. Assessment & Plan - Diagnosis (1) Intractable vomiting Qualifiers: Nausea presence: with nausea Is this a current diagnosis for this admission?: Yes (2) Systemic lupus erythematosus Qualifiers: Systemic lupus erythematosus type: unspecified Systemic lupus erythematosus organ involvement: unspecified Qualified Code(s): M32.9 - Systemic lupus erythematosus, unspecified Is this a current diagnosis for this admission?: Yes (3) Coronary artery disease Qualifiers: Coronary Disease-Associated Artery/Lesion type: [place] artery [place] vs. transplanted heart: [place] heart Is this a current diagnosis for this admission?: Yes (4) Recurrent urinary tract infection Is this a current diagnosis for this admission?: Yes (5) Infection due to ESBL-producing Klebsiella pneumoniae Is this a current diagnosis for this admission?: Yes (6) Urinary tract infection due to ESBL Klebsiella Is this a current diagnosis for this admission?: Yes Plan: Discontinue Cipro, start IV imipenem
[2017-11-09] MEDS: IMIPENEM/CILASTATIN SODIUM 500 MG in NORMAL SALINE 100 ML IV SCH ×4 (00:13→17:49)
[2017-11-09] MEDS: DIPHENOXYLATE HCL/ATROP SULF 2.5-0.025 MG TABLET PO SCH ×4 (00:14→17:49)
[2017-11-09] MEDS: ONDANSETRON HCL INJ/PF 4 MG/2 ML SDV IV PRN ×4 (00:14→19:31)
[2017-11-09] MEDS: HYDROMORPHONE HCL INJ/PF 2 MG/ML AMPULE IV PRN ×5 (02:28→22:05)
[2017-11-09] MEDS: GABAPENTIN 300 MG CAPSULE PO SCH ×3 (05:37→22:04)
[2017-11-09] MEDS: LEVOTHYROXINE SODIUM 0.1 MG TABLET PO SCH (05:38)
[2017-11-09] MEDS: HYDROXYCHLOROQUINE SULFATE 200 MG TABLET PO SCH (11:28)
[2017-11-09] MEDS: HYDROCHLOROTHIAZIDE 25 MG TABLET PO SCH (11:34)
[2017-11-09] MEDS: LOSARTAN POTASSIUM 50 MG TABLET PO SCH (11:34)
--- NOTE | 2017-11-09 21:39 | PDOC PROGRESS REPORT ---
Subjective Progress Note for:: 11/09/17 Subjective:: She has recurrent urinary tract infection the last time she was admitted urine culture grew Enterococcus faecalis sensitive to vancomycin, she was treated for 7 days, she was discharged to home, throughout hospital stay at the last hospital admission she vomited when she got home vomiting continued she came to the office for evaluation with a complaint of difficulty eating ,keeping food down the stomach, she was admitted directly from the office into the hospital then she complained of urinary symptoms dysuria, she was empirically started on Cipro but urine culture grew ESBL Klebsiella specie sensitive to IV imipenem Reason For Visit: INTRACTABLE BOWEL Physical Exam Vital Signs: Temp Pulse Resp BP Pulse Ox 98.6 F 87 18 135/58 H 91 L 11/09/17 20:00 11/09/17 20:00 11/09/17 20:00 11/09/17 20:00 11/09/17 20:00 Intake & Output 11/08/17 11/09/17 11/10/17 06:59 06:59 06:59 Intake Total 2774 2606 940 Output Total 2100 1500 300 Balance 674 1106 640 Weight 89.9 kg General appearance: PRESENT: no acute distress Eye exam: PRESENT: PERRLA Respiratory exam: PRESENT: clear to auscultation martínez Cardiovascular exam: PRESENT: +S1, +S2 GI/Abdominal exam: PRESENT: soft Neurological exam: PRESENT: alert, CN II-XII grossly intact Results Laboratory Results: 11/05/17 15:48 11/05/17 15:48 Impressions: Head CT 11/05/17 00:00 IMPRESSION: NORMAL BRAIN CT WITHOUT CONTRAST. EVIDENCE OF ACUTE STROKE: NO. Assessment & Plan - Diagnosis (1) Infection due to ESBL-producing Klebsiella pneumoniae Is this a current diagnosis for this admission?: Yes Plan: Continue IV antibiotic (2) Intractable vomiting Qualifiers: Nausea presence: with nausea Is this a current diagnosis for this admission?: Yes (3) Systemic lupus erythematosus Qualifiers: Systemic lupus erythematosus type: unspecified Systemic lupus erythematosus organ involvement: unspecified Qualified Code(s): M32.9 - Systemic lupus erythematosus, unspecified Is this a current diagnosis for this admission?: Yes (4) Coronary artery disease Qualifiers: Coronary Disease-Associated Artery/Lesion type: [place] artery [place] vs. transplanted heart: [place] heart Is this a current diagnosis for this admission?: Yes (5) Recurrent urinary tract infection Is this a current diagnosis for this admission?: Yes (6) Urinary tract infection due to ESBL Klebsiella Is this a current diagnosis for this admission?: Yes
[2017-11-09] MEDS: ATORVASTATIN CALCIUM 40 MG TABLET PO SCH (22:04)
[2017-11-10] MEDS: HYDROXYCHLOROQUINE SULFATE 200 MG TABLET PO SCH ×3 (01:04→21:24)
[2017-11-10] MEDS: IMIPENEM/CILASTATIN SODIUM 500 MG in NORMAL SALINE 100 ML IV SCH ×5 (02:20→23:20)
[2017-11-10] MEDS: DIPHENOXYLATE HCL/ATROP SULF 2.5-0.025 MG TABLET PO SCH ×5 (02:21→23:20)
[2017-11-10] MEDS: HYDROMORPHONE HCL INJ/PF 2 MG/ML AMPULE IV PRN ×5 (02:21→21:25)
[2017-11-10] MEDS: ONDANSETRON HCL INJ/PF 4 MG/2 ML SDV IV PRN ×3 (02:21→17:07)
[2017-11-10] MEDS: GABAPENTIN 300 MG CAPSULE PO SCH ×3 (07:10→21:25)
[2017-11-10] MEDS: LEVOTHYROXINE SODIUM 0.1 MG TABLET PO SCH (07:12)
[2017-11-10] MEDS: HYDROCHLOROTHIAZIDE 25 MG TABLET PO SCH (10:39)
[2017-11-10] MEDS: LOSARTAN POTASSIUM 50 MG TABLET PO SCH (10:42)
--- NOTE | 2017-11-10 11:32 | PDOC PROGRESS REPORT ---
Subjective Progress Note for:: 11/10/17 Subjective:: Patient is currently doing well She is denied any chest pain denied any shortness of the breath Patients has a ESBL in the urinary tract and currently on IV antibiotic Reason For Visit: INTRACTABLE BOWEL Physical Exam Vital Signs: Temp Pulse Resp BP Pulse Ox 97.4 F 81 20 150/69 H 98 11/10/17 08:11 11/10/17 08:11 11/10/17 08:11 11/10/17 08:11 11/10/17 08:11 Intake & Output 11/09/17 11/10/17 11/11/17 06:59 06:59 06:59 Intake Total 2606 2455 Output Total 1500 1430 Balance 1106 1025 Weight 89.9 kg General appearance: PRESENT: no acute distress, well-developed, well-nourished Head exam: PRESENT: atraumatic, normocephalic Eye exam: PRESENT: conjunctiva pink, EOMI, PERRLA. ABSENT: scleral icterus Ear exam: PRESENT: normal external ear exam Mouth exam: PRESENT: moist, tongue midline Neck exam: PRESENT: full ROM. ABSENT: carotid bruit, JVD, lymphadenopathy, thyromegaly Respiratory exam: PRESENT: clear to auscultation martínez Cardiovascular exam: PRESENT: RRR. ABSENT: diastolic murmur, rubs, systolic murmur Pulses: PRESENT: normal dorsalis pedis pul, +2 pedal pulses bilateral Vascular exam: PRESENT: normal capillary refill GI/Abdominal exam: PRESENT: normal bowel sounds, soft. ABSENT: distended, guarding, mass, organolmegaly, rebound, tenderness Rectal exam: PRESENT: deferred Extremities exam: ABSENT: pedal edema Neurological exam: PRESENT: alert, awake, oriented to person, oriented to place , oriented to time, oriented to situation, CN II-XII grossly intact. ABSENT: motor sensory deficit Psychiatric exam: PRESENT: appropriate affect, normal mood. ABSENT: homicidal ideation, suicidal ideation Skin exam: PRESENT: dry, intact, warm. ABSENT: cyanosis, rash Results Laboratory Results: 11/05/17 15:48 11/05/17 15:48 11/08/17 04:00 Clean Catch Midstream Urine Culture - Final Klebsiella Pneumoniae-Esbl Impressions: Head CT 11/05/17 00:00 IMPRESSION: NORMAL BRAIN CT WITHOUT CONTRAST. EVIDENCE OF ACUTE STROKE: NO. Assessment & Plan - Diagnosis (1) Infection due to ESBL-producing Klebsiella pneumoniae Is this a current diagnosis for this admission?: Yes (2) Anemia Qualifiers: Anemia type: bone marrow failure Bone marrow failure anemia type: other bone marrow failure Qualified Code(s): D61.89 - Other specified aplastic anemias and other bone marrow failure syndromes Is this a current diagnosis for this admission?: Yes (3) Coronary artery disease Qualifiers: Coronary Disease-Associated Artery/Lesion type: [place] artery [place] vs. 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
[2017-11-10] MEDS: ATORVASTATIN CALCIUM 40 MG TABLET PO SCH (21:24)
[2017-11-11] MEDS: ONDANSETRON HCL INJ/PF 4 MG/2 ML SDV IV PRN ×4 (01:20→18:41)
[2017-11-11] MEDS: HYDROMORPHONE HCL INJ/PF 2 MG/ML AMPULE IV PRN ×3 (01:21→09:53)
[2017-11-11] MEDS: DIPHENOXYLATE HCL/ATROP SULF 2.5-0.025 MG TABLET PO SCH ×3 (05:28→17:43)
[2017-11-11] MEDS: IMIPENEM/CILASTATIN SODIUM 500 MG in NORMAL SALINE 100 ML IV SCH ×3 (05:29→17:43)
[2017-11-11] MEDS: LEVOTHYROXINE SODIUM 0.1 MG TABLET PO SCH (05:29)
[2017-11-11] MEDS: GABAPENTIN 300 MG CAPSULE PO SCH ×3 (05:29→22:00)
[2017-11-11] MEDS: LOSARTAN POTASSIUM 50 MG TABLET PO SCH (09:52)
[2017-11-11] MEDS: HYDROXYCHLOROQUINE SULFATE 200 MG TABLET PO SCH ×2 (09:53→22:00)
[2017-11-11] MEDS: HYDROCHLOROTHIAZIDE 25 MG TABLET PO SCH (09:53)
--- NOTE | 2017-11-11 10:32 | PDOC PROGRESS REPORT ---
Subjective Progress Note for:: 11/11/17 Subjective:: Patient is currently doing well She is denied any chest pain denied any shortness of the breath Patients has a ESBL in the urinary tract and currently on IV antibiotic Reason For Visit: INTRACTABLE BOWEL Physical Exam Vital Signs: Temp Pulse Resp BP Pulse Ox 97.5 F 76 20 124/80 98 11/11/17 07:47 11/11/17 07:47 11/11/17 07:47 11/11/17 07:47 11/11/17 07:47 Intake & Output 11/10/17 11/11/17 11/12/17 06:59 06:59 06:59 Intake Total 2455 2038 Output Total 1430 1300 Balance 1025 738 Weight 80.6 kg General appearance: PRESENT: no acute distress, well-developed, well-nourished Head exam: PRESENT: atraumatic, normocephalic Eye exam: PRESENT: conjunctiva pink, EOMI, PERRLA. ABSENT: scleral icterus Ear exam: PRESENT: normal external ear exam Mouth exam: PRESENT: moist, tongue midline Neck exam: PRESENT: full ROM. ABSENT: carotid bruit, JVD, lymphadenopathy, thyromegaly Respiratory exam: PRESENT: clear to auscultation martínez Cardiovascular exam: PRESENT: RRR. ABSENT: diastolic murmur, rubs, systolic murmur Pulses: PRESENT: normal dorsalis pedis pul, +2 pedal pulses bilateral Vascular exam: PRESENT: normal capillary refill GI/Abdominal exam: PRESENT: normal bowel sounds, soft. ABSENT: distended, guarding, mass, organolmegaly, rebound, tenderness Rectal exam: PRESENT: deferred Neurological exam: PRESENT: alert, awake, oriented to person, oriented to place , oriented to time, oriented to situation, CN II-XII grossly intact. ABSENT: motor sensory deficit Psychiatric exam: PRESENT: appropriate affect, normal mood. ABSENT: homicidal ideation, suicidal ideation Skin exam: PRESENT: dry, intact, warm. ABSENT: cyanosis, rash Results Laboratory Results: 11/05/17 15:48 11/05/17 15:48 11/08/17 04:00 Clean Catch Midstream Urine Culture - Final Klebsiella Pneumoniae-Esbl Impressions: Head CT 11/05/17 00:00 IMPRESSION: NORMAL BRAIN CT WITHOUT CONTRAST. EVIDENCE OF ACUTE STROKE: NO. 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 medications as needed
[2017-11-11] MEDS: HYDROMORPHONE HCL 2 MG TABLET PO PRN ×3 (13:12→21:03)
[2017-11-11] MEDS: NORMAL SALINE 1000 ML 1,000 ML IV PRN (17:45)
[2017-11-11] MEDS ORDERED: KETOROLAC TROMETHAMINE INJ/PF 30 MG/1 ML SDV IV ONE (19:30)
[2017-11-11] MEDS: ATORVASTATIN CALCIUM 40 MG TABLET PO SCH (22:00)
[2017-11-12] MEDS: DIPHENOXYLATE HCL/ATROP SULF 2.5-0.025 MG TABLET PO SCH ×4 (00:19→17:30)
[2017-11-12] MEDS: IMIPENEM/CILASTATIN SODIUM 500 MG in NORMAL SALINE 100 ML IV SCH ×4 (00:19→20:04)
[2017-11-12] MEDS: ONDANSETRON HCL INJ/PF 4 MG/2 ML SDV IV PRN ×4 (01:24→21:45)
[2017-11-12] MEDS: HYDROMORPHONE HCL 2 MG TABLET PO PRN ×6 (01:25→21:45)
[2017-11-12] MEDS: LEVOTHYROXINE SODIUM 0.1 MG TABLET PO SCH (05:31)
[2017-11-12] MEDS: GABAPENTIN 300 MG CAPSULE PO SCH ×3 (05:31→21:45)
[2017-11-12] MEDS: NORMAL SALINE 1000 ML 1,000 ML IV PRN (06:49)
[2017-11-12] MEDS: LOSARTAN POTASSIUM 50 MG TABLET PO SCH (09:19)
[2017-11-12] MEDS: HYDROCHLOROTHIAZIDE 25 MG TABLET PO SCH (09:20)
[2017-11-12] MEDS: HYDROXYCHLOROQUINE SULFATE 200 MG TABLET PO SCH ×2 (09:20→21:46)
[2017-11-12] MEDS: HYDROCODONE/ACETAMINOPHEN 10-325 MG TABLET PO PRN (13:24)
--- NOTE | 2017-11-12 21:09 | PDOC PROGRESS REPORT ---
Subjective Progress Note for:: 11/12/17 Subjective:: Patient seen by the bedside, admitted for management of ESBL Klebsiella UTI Reason For Visit: INTRACTABLE BOWEL Physical Exam Vital Signs: Temp Pulse Resp BP Pulse Ox 98.4 F 94 15 151/70 H 95 11/12/17 20:00 11/12/17 20:00 11/12/17 20:00 11/12/17 20:00 11/12/17 20:00 Intake & Output 11/11/17 11/12/17 11/13/17 06:59 06:59 06:59 Intake Total 2038 2994 1680 Output Total 1300 1900 Balance 738 1094 1680 Weight 80.6 kg 80 kg General appearance: PRESENT: no acute distress Eye exam: PRESENT: PERRLA Respiratory exam: PRESENT: clear to auscultation martínez Cardiovascular exam: PRESENT: +S1, +S2 Neurological exam: PRESENT: alert Results Laboratory Results: 11/05/17 15:48 11/05/17 15:48 Impressions: Head CT 11/05/17 00:00 IMPRESSION: NORMAL BRAIN CT WITHOUT CONTRAST. EVIDENCE OF ACUTE STROKE: NO. Assessment & Plan - Diagnosis (1) Infection due to ESBL-producing Klebsiella pneumoniae Is this a current diagnosis for this admission?: Yes (2) Intractable vomiting Qualifiers: Nausea presence: with nausea Is this a current diagnosis for this admission?: Yes (3) Systemic lupus erythematosus Qualifiers: Systemic lupus erythematosus type: unspecified Systemic lupus erythematosus organ involvement: unspecified Qualified Code(s): M32.9 - Systemic lupus erythematosus, unspecified Is this a current diagnosis for this admission?: Yes (4) Coronary artery disease Qualifiers: Coronary Disease-Associated Artery/Lesion type: [place] artery [place] vs. transplanted heart: [place] heart Is this a current diagnosis for this admission?: Yes (5) Recurrent urinary tract infection Is this a current diagnosis for this admission?: Yes (6) Urinary tract infection due to ESBL Klebsiella Is this a current diagnosis for this admission?: Yes
[2017-11-12] MEDS: ATORVASTATIN CALCIUM 40 MG TABLET PO SCH (21:45)
[2017-11-13] MEDS: IMIPENEM/CILASTATIN SODIUM 500 MG in NORMAL SALINE 100 ML IV SCH ×4 (01:40→17:51)
[2017-11-13] MEDS: HYDROMORPHONE HCL 2 MG TABLET PO PRN ×6 (01:41→22:30)
[2017-11-13] MEDS ORDERED: HYDROCODONE/ACETAMINOPHEN 10-325 MG TABLET PO ONE (02:45)
[2017-11-13] MEDS: ONDANSETRON HCL INJ/PF 4 MG/2 ML SDV IV PRN ×4 (03:55→22:30)
[2017-11-13] MEDS: LEVOTHYROXINE SODIUM 0.1 MG TABLET PO SCH (06:02)
[2017-11-13] MEDS: GABAPENTIN 300 MG CAPSULE PO SCH ×3 (06:02→22:30)
[2017-11-13] MEDS: HYDROCHLOROTHIAZIDE 25 MG TABLET PO SCH (10:21)
[2017-11-13] MEDS: NORMAL SALINE 1000 ML 1,000 ML IV PRN ×2 (10:21→22:30)
[2017-11-13] MEDS: HYDROXYCHLOROQUINE SULFATE 200 MG TABLET PO SCH ×2 (10:22→22:30)
[2017-11-13] MEDS: LOSARTAN POTASSIUM 50 MG TABLET PO SCH (10:22)
--- NOTE | 2017-11-13 20:41 | PDOC PROGRESS REPORT ---
Subjective Progress Note for:: 11/13/17 Subjective:: Patient seen by the bedside she has ESBL Klebsiella UTI no new complaints Reason For Visit: INTRACTABLE BOWEL Physical Exam Vital Signs: Temp Pulse Resp BP Pulse Ox 98.2 F 81 20 126/58 H 100 11/13/17 16:04 11/13/17 16:04 11/13/17 16:04 11/13/17 16:04 11/13/17 16:04 Intake & Output 11/12/17 11/13/17 11/14/17 06:59 06:59 06:59 Intake Total 2994 2130 2792 Output Total 1900 Balance 1094 2130 2792 Weight 80 kg 80 kg General appearance: PRESENT: no acute distress Eye exam: PRESENT: PERRLA Respiratory exam: PRESENT: clear to auscultation martínez Cardiovascular exam: PRESENT: +S1, +S2 GI/Abdominal exam: PRESENT: soft Neurological exam: PRESENT: alert Results Laboratory Results: 11/05/17 15:48 11/05/17 15:48 Impressions: Head CT 11/05/17 00:00 IMPRESSION: NORMAL BRAIN CT WITHOUT CONTRAST. EVIDENCE OF ACUTE STROKE: NO. Assessment & Plan - Diagnosis (1) Infection due to ESBL-producing Klebsiella pneumoniae Is this a current diagnosis for this admission?: Yes (2) Intractable vomiting Qualifiers: Nausea presence: with nausea Is this a current diagnosis for this admission?: Yes (3) Systemic lupus erythematosus Qualifiers: Systemic lupus erythematosus type: unspecified Systemic lupus erythematosus organ involvement: unspecified Qualified Code(s): M32.9 - Systemic lupus erythematosus, unspecified Is this a current diagnosis for this admission?: Yes (4) Coronary artery disease Qualifiers: Coronary Disease-Associated Artery/Lesion type: [place] artery [place] vs. transplanted heart: [place] heart Is this a current diagnosis for this admission?: Yes (5) Recurrent urinary tract infection Is this a current diagnosis for this admission?: Yes (6) Urinary tract infection due to ESBL Klebsiella Is this a current diagnosis for this admission?: Yes
[2017-11-13] MEDS: ATORVASTATIN CALCIUM 40 MG TABLET PO SCH (22:30)
[2017-11-14] MEDS: IMIPENEM/CILASTATIN SODIUM 500 MG in NORMAL SALINE 100 ML IV SCH ×5 (00:46→23:54)
[2017-11-14] MEDS: HYDROMORPHONE HCL 2 MG TABLET PO PRN ×5 (02:38→20:30)
[2017-11-14] MEDS: ONDANSETRON HCL INJ/PF 4 MG/2 ML SDV IV PRN ×3 (04:39→21:20)
[2017-11-14] MEDS: GABAPENTIN 300 MG CAPSULE PO SCH ×3 (06:31→21:23)
[2017-11-14] MEDS: LEVOTHYROXINE SODIUM 0.1 MG TABLET PO SCH (06:31)
[2017-11-14] MEDS: LOSARTAN POTASSIUM 50 MG TABLET PO SCH (09:12)
[2017-11-14] MEDS: HYDROXYCHLOROQUINE SULFATE 200 MG TABLET PO SCH ×2 (09:12→21:24)
[2017-11-14] MEDS: HYDROCHLOROTHIAZIDE 25 MG TABLET PO SCH (09:13)
--- NOTE | 2017-11-14 15:18 | PDOC PROGRESS REPORT ---
Subjective Progress Note for:: 11/14/17 Subjective:: She was by the bedside on IV antibiotic, She would continue treatment for 10 days, presently on p.o. Dilaudid there is no IV Dilaudid or morphine in the hospital Reason For Visit: INTRACTABLE BOWEL Physical Exam Vital Signs: Temp Pulse Resp BP Pulse Ox 98.3 F 80 16 132/64 H 100 11/14/17 12:21 11/14/17 12:21 11/14/17 12:21 11/14/17 12:21 11/14/17 12:21 Intake & Output 11/13/17 11/14/17 11/15/17 06:59 06:59 06:59 Intake Total 2130 3492 Output Total 1900 Balance 2130 1592 Weight 80 kg General appearance: PRESENT: no acute distress Eye exam: PRESENT: PERRLA Respiratory exam: PRESENT: clear to auscultation martínez Cardiovascular exam: PRESENT: +S1, +S2 GI/Abdominal exam: PRESENT: soft Neurological exam: PRESENT: alert Results Laboratory Results: 11/05/17 15:48 11/05/17 15:48 Impressions: Head CT 11/05/17 00:00 IMPRESSION: NORMAL BRAIN CT WITHOUT CONTRAST. EVIDENCE OF ACUTE STROKE: NO. Assessment & Plan - Diagnosis (1) Infection due to ESBL-producing Klebsiella pneumoniae Is this a current diagnosis for this admission?: Yes (2) Intractable vomiting Qualifiers: Nausea presence: with nausea Is this a current diagnosis for this admission?: Yes (3) Systemic lupus erythematosus Qualifiers: Systemic lupus erythematosus type: unspecified Systemic lupus erythematosus organ involvement: unspecified Qualified Code(s): M32.9 - Systemic lupus erythematosus, unspecified Is this a current diagnosis for this admission?: Yes (4) Coronary artery disease Qualifiers: Coronary Disease-Associated Artery/Lesion type: [place] artery [place] vs. transplanted heart: [place] heart Is this a current diagnosis for this admission?: Yes (5) Recurrent urinary tract infection Is this a current diagnosis for this admission?: Yes (6) Urinary tract infection due to ESBL Klebsiella Is this a current diagnosis for this admission?: Yes
[2017-11-14] MEDS: HYDROCODONE/ACETAMINOPHEN 10-325 MG TABLET PO PRN ×2 (16:51→22:55)
[2017-11-14] MEDS: ATORVASTATIN CALCIUM 40 MG TABLET PO SCH (21:23)
[2017-11-14] MEDS: NORMAL SALINE 1000 ML 1,000 ML IV PRN (23:55)
[2017-11-15] MEDS: HYDROMORPHONE HCL 2 MG TABLET PO PRN ×5 (02:46→20:49)
[2017-11-15] MEDS: LEVOTHYROXINE SODIUM 0.1 MG TABLET PO SCH (06:00)
[2017-11-15] MEDS: ONDANSETRON HCL INJ/PF 4 MG/2 ML SDV IV PRN ×3 (06:00→18:30)
[2017-11-15] MEDS: IMIPENEM/CILASTATIN SODIUM 500 MG in NORMAL SALINE 100 ML IV SCH ×2 (06:01→21:27)
[2017-11-15] MEDS: GABAPENTIN 300 MG CAPSULE PO SCH ×3 (06:04→21:28)
[2017-11-15] MEDS: LOSARTAN POTASSIUM 50 MG TABLET PO SCH (09:23)
[2017-11-15] MEDS: HYDROCODONE/ACETAMINOPHEN 10-325 MG TABLET PO PRN ×3 (09:24→23:15)
[2017-11-15] MEDS: HYDROCHLOROTHIAZIDE 25 MG TABLET PO SCH (09:24)
[2017-11-15] MEDS: HYDROXYCHLOROQUINE SULFATE 200 MG TABLET PO SCH ×2 (09:24→21:28)
[2017-11-15] MEDS: NORMAL SALINE 1000 ML 1,000 ML IV PRN (17:38)
--- NOTE | 2017-11-15 20:36 | PDOC PROGRESS REPORT ---
Subjective Progress Note for:: 11/15/17 Subjective:: She was by the bedside on IV antibiotic, She would continue treatment for 10 days, presently on p.o. Dilaudid there is no IV Dilaudid or morphine in the hospital Reason For Visit: INTRACTABLE BOWEL Physical Exam Vital Signs: Temp Pulse Resp BP Pulse Ox 98.2 F 78 18 119/53 L 100 11/15/17 16:00 11/15/17 16:00 11/15/17 16:00 11/15/17 16:00 11/15/17 16:00 Intake & Output 11/14/17 11/15/17 11/16/17 06:59 06:59 06:59 Intake Total 3492 1645 2430 Output Total 9627 719 2508 Balance 1592 1245 -520 General appearance: PRESENT: no acute distress Eye exam: PRESENT: PERRLA Respiratory exam: PRESENT: clear to auscultation martínez Cardiovascular exam: PRESENT: +S1, +S2 GI/Abdominal exam: PRESENT: soft Neurological exam: PRESENT: alert Results Laboratory Results: 11/05/17 15:48 11/05/17 15:48 Impressions: Head CT 11/05/17 00:00 IMPRESSION: NORMAL BRAIN CT WITHOUT CONTRAST. EVIDENCE OF ACUTE STROKE: NO. Assessment & Plan - Diagnosis (1) Infection due to ESBL-producing Klebsiella pneumoniae Is this a current diagnosis for this admission?: Yes (2) Intractable vomiting Qualifiers: Nausea presence: with nausea Is this a current diagnosis for this admission?: Yes (3) Systemic lupus erythematosus Qualifiers: Systemic lupus erythematosus type: unspecified Systemic lupus erythematosus organ involvement: unspecified Qualified Code(s): M32.9 - Systemic lupus erythematosus, unspecified Is this a current diagnosis for this admission?: Yes (4) Coronary artery disease Qualifiers: Coronary Disease-Associated Artery/Lesion type: [place] artery [place] vs. transplanted heart: [place] heart Is this a current diagnosis for this admission?: Yes (5) Recurrent urinary tract infection Is this a current diagnosis for this admission?: Yes (6) Urinary tract infection due to ESBL Klebsiella Is this a current diagnosis for this admission?: Yes
[2017-11-15] MEDS: ATORVASTATIN CALCIUM 40 MG TABLET PO SCH (21:28)
[2017-11-16] MEDS: ONDANSETRON HCL INJ/PF 4 MG/2 ML SDV IV PRN ×4 (01:04→20:59)
[2017-11-16] MEDS: HYDROMORPHONE HCL 2 MG TABLET PO PRN ×4 (01:04→20:59)
[2017-11-16] MEDS: IMIPENEM/CILASTATIN SODIUM 500 MG in NORMAL SALINE 100 ML IV SCH ×4 (03:26→20:58)
[2017-11-16] MEDS: GABAPENTIN 300 MG CAPSULE PO SCH ×3 (05:24→20:58)
[2017-11-16] MEDS: LEVOTHYROXINE SODIUM 0.1 MG TABLET PO SCH (05:25)
[2017-11-16] MEDS: HYDROXYCHLOROQUINE SULFATE 200 MG TABLET PO SCH ×2 (09:17→21:01)
[2017-11-16] MEDS: LOSARTAN POTASSIUM 50 MG TABLET PO SCH (09:18)
[2017-11-16] MEDS: HYDROCODONE/ACETAMINOPHEN 10-325 MG TABLET PO PRN ×2 (09:18→23:36)
[2017-11-16] MEDS: HYDROCHLOROTHIAZIDE 25 MG TABLET PO SCH (09:18)
[2017-11-16] MEDS: NORMAL SALINE 1000 ML 1,000 ML IV PRN (11:00)
[2017-11-16] MEDS ORDERED: IMIPENEM/CILASTATIN SODIUM INJ 500 MG VIAL IV SCH (18:00)
--- NOTE | 2017-11-16 20:34 | PDOC PROGRESS REPORT ---
Subjective Progress Note for:: 11/16/17 Subjective:: She has ESBL Klebsiella UTI, she continues to require antibiotic for eradication. She is also on intravenous painkiller Reason For Visit: INTRACTABLE BOWEL Physical Exam Vital Signs: Temp Pulse Resp BP Pulse Ox 98.3 F 81 18 138/68 H 100 11/16/17 16:00 11/16/17 16:00 11/16/17 16:00 11/16/17 16:00 11/16/17 16:00 Intake & Output 11/15/17 11/16/17 11/17/17 06:59 06:59 06:59 Intake Total 1645 3293 2120 Output Total 400 4450 Balance 1245 -1157 2120 General appearance: PRESENT: no acute distress Eye exam: PRESENT: PERRLA Respiratory exam: PRESENT: clear to auscultation martínez Cardiovascular exam: PRESENT: +S1, +S2 GI/Abdominal exam: PRESENT: soft Neurological exam: PRESENT: alert Results Laboratory Results: 11/05/17 15:48 11/05/17 15:48 Impressions: Head CT 11/05/17 00:00 IMPRESSION: NORMAL BRAIN CT WITHOUT CONTRAST. EVIDENCE OF ACUTE STROKE: NO. Assessment & Plan - Diagnosis (1) Urinary tract infection due to ESBL Klebsiella Is this a current diagnosis for this admission?: Yes Plan: Continue IV antibiotic (2) Infection due to ESBL-producing Klebsiella pneumoniae Is this a current diagnosis for this admission?: Yes (3) Intractable vomiting Qualifiers: Nausea presence: with nausea Is this a current diagnosis for this admission?: Yes (4) Systemic lupus erythematosus Qualifiers: Systemic lupus erythematosus type: unspecified Systemic lupus erythematosus organ involvement: unspecified Qualified Code(s): M32.9 - Systemic lupus erythematosus, unspecified Is this a current diagnosis for this admission?: Yes (5) Coronary artery disease Qualifiers: Coronary Disease-Associated Artery/Lesion type: [place] artery [place] vs. transplanted heart: [place] heart Is this a current diagnosis for this admission?: Yes (6) Recurrent urinary tract infection Is this a current diagnosis for this admission?: Yes
[2017-11-16] MEDS: ATORVASTATIN CALCIUM 40 MG TABLET PO SCH (20:59)
[2017-11-16] MEDS ORDERED: IMIPENEM/CILASTATIN SODIUM 500 MG in NORMAL SALINE 100 ML IV SCH (21:00)
[2017-11-17] MEDS: IMIPENEM/CILASTATIN SODIUM 500 MG in NORMAL SALINE 100 ML IV SCH ×4 (03:08→21:02)
[2017-11-17] MEDS: NORMAL SALINE 1000 ML 1,000 ML IV PRN ×2 (03:10→21:10)
[2017-11-17] MEDS: HYDROMORPHONE HCL 2 MG TABLET PO PRN ×4 (03:10→21:02)
[2017-11-17] MEDS: ONDANSETRON HCL INJ/PF 4 MG/2 ML SDV IV PRN ×3 (03:10→21:02)
[2017-11-17] MEDS: GABAPENTIN 300 MG CAPSULE PO SCH ×3 (05:27→21:02)
[2017-11-17] MEDS: LEVOTHYROXINE SODIUM 0.1 MG TABLET PO SCH (05:27)
[2017-11-17] MEDS: HYDROXYCHLOROQUINE SULFATE 200 MG TABLET PO SCH ×2 (09:53→21:02)
[2017-11-17] MEDS: HYDROCHLOROTHIAZIDE 25 MG TABLET PO SCH (09:54)
[2017-11-17] MEDS: LOSARTAN POTASSIUM 50 MG TABLET PO SCH (09:54)
--- NOTE | 2017-11-17 14:36 | PDOC PROGRESS REPORT ---
Subjective Progress Note for:: 11/17/17 Subjective:: She was seen by the bedside, she complained of nausea vomiting, there is no intravenous Dilaudid or morphine presently in the hospital. She is on p.o. pain medication, she said she has nausea and vomiting and not able to keep the medication down Reason For Visit: INTRACTABLE BOWEL Physical Exam Vital Signs: Temp Pulse Resp BP Pulse Ox 98.1 F 75 16 117/58 L 100 11/17/17 11:23 11/17/17 11:23 11/17/17 11:23 11/17/17 11:23 11/17/17 11:23 Intake & Output 11/16/17 11/17/17 11/18/17 06:59 06:59 07:59 Intake Total 3293 3272 Output Total 4450 Balance -1157 3272 General appearance: PRESENT: no acute distress Eye exam: PRESENT: PERRLA Respiratory exam: PRESENT: clear to auscultation martínez Cardiovascular exam: PRESENT: +S1, +S2 GI/Abdominal exam: PRESENT: soft Neurological exam: PRESENT: alert, CN II-XII grossly intact Results Laboratory Results: 11/05/17 15:48 11/05/17 15:48 Impressions: Head CT 11/05/17 00:00 IMPRESSION: NORMAL BRAIN CT WITHOUT CONTRAST. EVIDENCE OF ACUTE STROKE: NO. Assessment & Plan - Diagnosis (1) Urinary tract infection due to ESBL Klebsiella Is this a current diagnosis for this admission?: Yes (2) Infection due to ESBL-producing Klebsiella pneumoniae Is this a current diagnosis for this admission?: Yes (3) Intractable vomiting Qualifiers: Nausea presence: with nausea Is this a current diagnosis for this admission?: Yes (4) Systemic lupus erythematosus Qualifiers: Systemic lupus erythematosus type: unspecified Systemic lupus erythematosus organ involvement: unspecified Qualified Code(s): M32.9 - Systemic lupus erythematosus, unspecified Is this a current diagnosis for this admission?: Yes (5) Coronary artery disease Qualifiers: Coronary Disease-Associated Artery/Lesion type: [place] artery [place] vs. transplanted heart: [place] heart Is this a current diagnosis for this admission?: Yes (6) Recurrent urinary tract infection Is this a current diagnosis for this admission?: Yes
[2017-11-17] MEDS: ATORVASTATIN CALCIUM 40 MG TABLET PO SCH (21:02)
[2017-11-18] MEDS: HYDROMORPHONE HCL 2 MG TABLET PO PRN ×3 (01:07→12:04)
[2017-11-18] MEDS: IMIPENEM/CILASTATIN SODIUM 500 MG in NORMAL SALINE 100 ML IV SCH ×2 (03:21→09:10)
[2017-11-18] MEDS: HYDROCODONE/ACETAMINOPHEN 10-325 MG TABLET PO PRN (04:34)
[2017-11-18] MEDS: ONDANSETRON HCL INJ/PF 4 MG/2 ML SDV IV PRN ×2 (04:35→12:04)
[2017-11-18] MEDS: GABAPENTIN 300 MG CAPSULE PO SCH (05:09)
[2017-11-18] MEDS: LEVOTHYROXINE SODIUM 0.1 MG TABLET PO SCH (05:09)
[2017-11-18] MEDS: LOSARTAN POTASSIUM 50 MG TABLET PO SCH (09:11)
[2017-11-18] MEDS: HYDROCHLOROTHIAZIDE 25 MG TABLET PO SCH (09:11)
[2017-11-18] MEDS: HYDROXYCHLOROQUINE SULFATE 200 MG TABLET PO SCH (09:12)
--- NOTE | 2017-11-18 12:16 | PDOC DISCHARGE SUMMARY ---
General - Admit/Disc Date/PCP Admission Date/Primary Care Provider: 11/05/17 14:29 IAN MUÑOZ MD Discharge Date: 11/18/17 - Discharge Diagnosis (1) Urinary tract infection due to ESBL Klebsiella Is this a current diagnosis for this admission?: Yes (2) Infection due to ESBL-producing Klebsiella pneumoniae Is this a current diagnosis for this admission?: Yes (3) Intractable vomiting Is this a current diagnosis for this admission?: Yes (4) Systemic lupus erythematosus Is this a current diagnosis for this admission?: Yes (5) Coronary artery disease Is this a current diagnosis for this admission?: Yes (6) Recurrent urinary tract infection Is this a current diagnosis for this admission?: Yes - Additional Information Prescriptions: Ondansetron [Zofran Odt 4 mg Tablet] 4 mg PO Q6H PRN #30 tab.rapdis PRN Reason: Promethazine HCl 12.5 mg PO Q8H #30 tablet Home Medications: Aspirin [Aspirin 325 mg Tablet] 325 mg PO DAILY 10/11/17 Atorvastatin Calcium [Lipitor 40 mg Tablet] 40 mg PO QHS 10/11/17 Cyanocobalamin (Vitamin B-12) [Vitamin B-12 Inj 1000 Mcg/1 ml Vial] 1,000 mcg IM .MONTHLY 10/11/17 Cyclobenzaprine HCl [Flexeril 10 mg Tablet] 10 mg PO Q8HP PRN 10/11/17 Gabapentin [Neurontin 300 mg Capsule] 600 mg PO Q8 10/11/17 Hydroxychloroquine Sulfate [Plaquenil 200 mg Tablet] 200 mg PO Q12 10/11/17 Levothyroxine Sodium [Synthroid 0.1 mg Tablet] 0.1 mg PO Q6AM 10/11/17 Losartan/Hydrochlorothiazide [Losartan-Hctz 100-25 mg Tab] 1 tab PO DAILY Hydrocodone Bitartrate [Zohydro ER] 1 tab PO Q12 10/13/17 Hydrocodone/Acetaminophen [Hydrocodone-Acetamin 10-325 mg] 1 tab PO Q6HP PRN 11/25 Ondansetron [Zofran Odt 4 mg Tablet] 4 mg PO Q6H PRN #30 tab.rapdis 11/18/17 Promethazine HCl 12.5 mg PO Q8H #30 tablet 11/18/17 History of Present Illness History of Present Illness: VALENTE MUNOZ is a 62 year old female, She was just discharged on 2017 when she was admitted for the management of intractable vomiting at the time she was found to have enterococcus faecalis UTI. She came to the office today, she stated that since she was discharged she has not stop vomiting, she said she is not able to keep any food down, the last time she was in the hospital she had EGD done, it showed mild gastritis otherwise it was a negative study. I am not sure what the etiology of this persistent intractable vomiting is . Hospital Course Hospital Course: She was admitted for the management of intractable persistent vomiting subsequent to management she was found to have ESBL Klebsiella pneumonia UTI sensitive only carbapem, she was treated with IV imipenem. She had episode of vomiting requiring antiemetics, she also have chronic pain that required IV pain medication. Physical Exam Vital Signs: Temp Pulse Resp BP Pulse Ox 97.6 F 77 16 116/95 H 100 11/18/17 07:56 11/18/17 07:56 11/18/17 07:56 11/18/17 07:56 11/18/17 07:56 Intake & Output 11/17/17 11/18/17 11/19/17 05:59 06:59 06:59 Intake Total Balance General appearance: PRESENT: no acute distress Eye exam: PRESENT: conjunctiva pink, EOMI, PERRLA Ear exam: PRESENT: normal external ear exam Neck exam: PRESENT: full ROM Respiratory exam: PRESENT: clear to auscultation martínez Cardiovascular exam: PRESENT: RRR, +S1, +S2 Vascular exam: PRESENT: normal capillary refill GI/Abdominal exam: PRESENT: normal bowel sounds, soft Rectal exam: PRESENT: deferred Neurological exam: PRESENT: alert Psychiatric exam: PRESENT: appropriate affect, normal mood Skin exam: PRESENT: dry, intact, warm Results Laboratory Results: 11/05/17 15:48 11/05/17 15:48 Impressions: Head CT 11/05/17 00:00 IMPRESSION: NORMAL BRAIN CT WITHOUT CONTRAST. EVIDENCE OF ACUTE STROKE: NO. Qualifiers - * PATEINT BEING DISCHARGED WITH ANY OF THE FOLLOWING DIAGNOSIS?: No VTE patient discharged on overlapping Therapy?: Yes
[2017-11-18 12:26] VITALS: BP 112/57
== END 2017-11-18 12:30 | disposition home or self-care (01) | DRG 690 ==
LOC: ER 14:14 → EH 14:29 → OBSVTOIN 14:29 → EH 19:50 → 4W 21:06
PROVIDERS: ADMIT Internal Medicine; ATTEND Internal Medicine
DX: N39.0 Urinary tract infection, site not specified (principal); M32.9 Systemic lupus erythematosus, unspecified; I25.10 Atherosclerotic heart disease of native coronary artery without angina pectoris; F41.9 Anxiety disorder, unspecified; B96.1 Klebsiella pneumoniae [K. pneumoniae] as the cause of diseases classified elsewhere; J44.9 Chronic obstructive pulmonary disease, unspecified; I50.9 Heart failure, unspecified; B96.20 Unspecified Escherichia coli [E. coli] as the cause of diseases classified elsewhere; E03.9 Hypothyroidism, unspecified; I10 Essential (primary) hypertension; Z79.82 Long term (current) use of aspirin; Z79.02 Long term (current) use of antithrombotics/antiplatelets; Z79.899 Other long term (current) drug therapy; Z86.711 Personal history of pulmonary embolism; Z96.653 Presence of artificial knee joint, bilateral; Z87.891 Personal history of nicotine dependence; Z85.41 Personal history of malignant neoplasm of cervix uteri; Z85.43 Personal history of malignant neoplasm of ovary; Z95.5 Presence of coronary angioplasty implant and graft; Z90.49 Acquired absence of other specified parts of digestive tract; Z90.710 Acquired absence of both cervix and uterus; Z88.8 Allergy status to other drugs, medicaments and biological substances; Z91.030 Bee allergy status; Z88.0 Allergy status to penicillin; Z87.442 Personal history of urinary calculi; Z86.010 Personal history of colon polyps; Z82.49 Family history of ischemic heart disease and other diseases of the circulatory system
CPT/HCPCS: 36415; 70450; 80048; 80076; 81001; 85025; 87086; 87088; 87186; G0378; J0743; J0744; J1170; J1885; J2405; J3490; J7030

== ENCOUNTER 2017-11-19 21:35 | Emergency (ER) | payer MEDICARE, OTHER ==
[2017-11-19] MEDS ORDERED: ONDANSETRON HCL INJ/PF 4 MG/2 ML SDV IV ONE (22:39)
[2017-11-19] MEDS ORDERED: NORMAL SALINE 1000 ML 1,000 ML IV ONE (22:39)
[2017-11-19] MEDS ORDERED: FENTANYL CITRATE INJ/PF 100 MCG/2 ML AMPUL IV ONE (22:39)
--- NOTE | 2017-11-19 22:41 | ER Document Report ---
ED GI/ - General Chief Complaint: Nausea/Vomiting/Diarrhea, abdominal pain Stated Complaint: ABDOMINAL PAIN Time Seen by Provider: 11/19/17 22:21 Notes: Patient is a 62-year-old female that comes emergency department for chief complaint of vomiting every time she tries to eat. She has vomited 5 times today. She also has had several episodes of loose stools. She denies fever, chest pain, shortness of breath, passing out. She was discharged yesterday from the hospital after being hospitalized for 6 weeks, had ES Klebsiella urinary tract infection along with C. difficile. She comes by EMS, given Zofran , states she vomited soon as it hit her mouth, she also was given IM Benadryl for nausea. Past medical history of type 2 diabetes, lupus, CAD, has had a cholecystectomy, has had an appendectomy. TRAVEL OUTSIDE OF THE [place] IN LAST 30 DAYS: No - Related Data Allergies/Adverse Reactions: irbesartan [From Avapro] Allergy (Severe, Verified 05/03/17 09:31) swelling of face nitrofurantoin macrocrystalline [From Macrobid] Allergy (Severe, Verified 09:31) Generalized edema Penicillins Allergy (Severe, Verified 05/03/17 09:31) eyes swelled pregabalin [From Lyrica] Allergy (Severe, Verified 05/03/17 09:31) Equilibrium Issues venom-honey bee [bee venom (honey bee)] Allergy (Verified 05/03/17 09:31) Anaphylaxis Past Medical History - General Information source: Patient - Social History Smoking Status: Never Smoker Frequency of alcohol use: None Drug Abuse: None Lives with: Family Family History: Arthritis, COPD, Hyperlipidemia, Hypertension, Malignancy, Thyroid Disfunction - Past Medical History Cardiac Medical History: Reports: Hx Congestive Heart Failure, Hx Coronary Artery Disease, Hx DVT, Hx Heart Attack, Hx Hypercholesterolemia, Hx Hypertension, Hx Pulmonary Embolism Denies: Hx Atrial Fibrillation, Hx Peripheral Vascular Disease, Hx Heart Murmur Pulmonary Medical History: Reports: Hx Bronchitis, Hx COPD Denies: Hx Asthma, Hx Pneumonia, Hx Respiratory Failure, Hx Sleep Apnea, Hx Tuberculosis Neurological Medical History: Denies: Hx Cerebrovascular Accident, Hx Seizures Endocrine Medical History: Reports: Hx Hypothyroidism. Denies: Hx Hyperthyroidism Renal/ Medical History: Reports: Hx Ovarian Cysts. Denies: Hx End Stage Renal Disease, Hx Peritoneal Dialysis Malignancy Medical History: Reports: Hx Cervical Cancer, Hx Ovarian Cancer. Denies: Hx Breast Cancer, Hx Leukemia, Hx Lung Cancer GI Medical History: Reports: Hx Gastroesophageal Reflux Disease, Hx Hiatal Hernia - Repaired, Hx Irritable Bowel, Hx Colonoscopy, Hx Endoscopy. Denies: Hx Crohn's Disease, Hx Hepatitis, Hx Pancreatitis, Hx Ulcer Musculoskeltal Medical History: Reports Hx Arthritis - Lupus, Reports Hx Fibromyalgia - Lupus, Reports Hx Musculoskeletal Deformity, Reports Hx Musculoskeletal Trauma Skin Medical History: Reports Hx Cellulitis - Recently treated, right breast Psychiatric Medical History: Reports: Hx Anxiety, Hx Depression Denies: Hx Bipolar Disorder, Hx Dementia, Hx Post Traumatic Stress Disorder Traumatic Medical History: Reports: Hx Fractures - Knee and hip Infectious Medical History: Reports: Hx C-Diff - Was negative in October2015. Not yet successfully collected stool. Denies: Hx Hepatitis, Hx HIV Past Surgical History: Reports: Hx Appendectomy, Hx Bowel Surgery - Polyps, adhesions, Hx Cardiac Catheterization, Hx Cardiac Surgery - 2 stents 2014, Hx Section, Hx Cholecystectomy, Hx Coronary Stent - 3 stents, Hx Herniorrhaphy, Hx Hysterectomy, Hx Orthopedic Surgery - Right knee, bilateral knee replacements and hip replacement metal plate in, Hx Tonsillectomy. Denies : Hx Colostomy, Hx Coronary Artery Bypass Graft, Hx Gastric Bypass Surgery, Hx Mastectomy, Hx Open Heart Surgery, Hx Pacemaker, Hx Tubal Ligation - Immunizations Immunizations up to date: Yes Hx Pneumococcal Vaccination: 05/20/11 Review of Systems - Review of Systems Constitutional: No symptoms reported EENT: No symptoms reported Cardiovascular: No symptoms reported Respiratory: No symptoms reported Gastrointestinal: See HPI Genitourinary: See HPI Female Genitourinary: No symptoms reported Musculoskeletal: No symptoms reported Skin: No symptoms reported Hematologic/Lymphatic: No symptoms reported Neurological/Psychological: No symptoms reported Physical Exam - Vital signs Vitals: Temp Pulse Resp BP Pulse Ox 97.5 F 111 H 18 114/68 96 11/19/17 21:47 11/19/17 21:47 11/19/17 21:47 11/19/17 21:47 11/19/17 21:47 - General General appearance: Appears well In distress: None - HEENT Head: Normocephalic Eyes: Normal Extraocular movements intact: Yes Eyelashes: Normal Pupils: PERRL Mucous membranes: Dry Pharynx: Normal Neck: Normal - Respiratory Respiratory status: No respiratory distress Breath sounds: Normal. No: Decreased air movement, Wheezing - Cardiovascular Rhythm: Regular, Tachycardia Heart sounds: Normal auscultation, S1 appreciated, S2 appreciated - Abdominal Inspection: Normal Distension: No distension Bowel sounds: Hyperactive Tenderness: Nontender. No: Tender, McBurney's point, Hugo's sign, Guarding - Back Back: Normal, Nontender. No: Tender - Extremities General upper extremity: Normal inspection, Nontender, Normal strength, Normal temperature General lower extremity: Normal inspection, Nontender, Normal strength, Normal temperature. No: Edema - Neurological Neuro grossly intact: Yes Cognition: Normal Orientation: AAOx4 [place] Coma Scale Eye Opening: Spontaneous [place] Coma Scale Verbal: Oriented [place] Coma Scale Motor: Obeys Commands Paul[place] Coma Scale Total: 15 Speech: Normal Cranial nerves: Normal Cerebellar coordination: Normal Motor strength normal: LUE, RUE, LLE, RLE Additional motor exam normals: Equal department coordinator Sensory: Normal - Psychological Associated symptoms: Anxious - Skin Skin Temperature: Warm Skin Moisture: Dry Skin Color: Normal Course - Re-evaluation Re-evalutation: Patient initially tachycardic and uncomfortable, however her abdomen is benign, she is still well-appearing, she does not appear to be in distress. She did have a large bowel movement (reportedly brownish diarrhea, non-bloody), unfortunately this was cleaned up and no sample was able to be obtained. CBC shows mild leukocytosis, nonspecific with reported vomiting. Chemistry shows bicarbonate of 20, mild hyponatremia, patient was provided with 1.5 L of IV fluids, afterwards tachycardia resolved, patient states she actually feels much better. Patient was provided with pain and nausea medication. Urine shows moderate leukocyte esterase, some white blood cells. No dysuria. No flank pain. No fever. Urine was cultured. Patient is tolerating oral fluids without any difficulty now. She continues to say she feels much better. I called and spoke with Dr. Muñoz, patient's provider, discussed presentation, workup. He does not recommend admission at this time, recommends follow-up in the office for additional evaluation and management. I discussed this with patient and family, they are actually very satisfied with this plan, they state they will be seen later today in the office. Discussed return precautions, patient and daughter state understanding and agreement. - Vital Signs Vital signs: Temp Pulse Resp BP Pulse Ox 97.5 F 111 H 18 119/62 98 11/19/17 21:47 11/19/17 21:47 11/20/17 03:01 11/20/17 03:01 11/20/17 03:01 - Laboratory Result Diagrams: 11/19/17 23:40 11/19/17 23:40 Laboratory results interpreted by me: 11/19/17 11/19/17 11/20/17 23:40 23:40 02:12 WBC 11.1 H RBC 5.39 H MCV 78 L MCH 26.7 L RDW 14.7 H Seg Neutrophils % 82.9 H Lymphocytes % 10.2 L Absolute Neutrophils 9.2 H Sodium 134.6 L Carbon Dioxide 20 L Est GFR (Non-Af Amer) 58 L Alkaline Phosphatase 141 H Ur Leukocyte Esterase MODERATE H Discharge - Discharge Clinical Impression: Vomiting and diarrhea, Dehydration Condition: Stable Disposition: HOME, SELF-CARE Additional Instructions: We have a urine culture growing in our lab again. Follow-up closely with your primary provider within the next couple of days for additional evaluation including stool testing and additional treatments. I recommend taking the Zantac because of the vomiting, take Phenergan for nausea , drink clear fluids, progress to bland food. Return if you worsen including uncontrolled vomiting, fever, severe abdominal pain, or any other concerning or worsening symptoms. Prescriptions: Promethazine HCl [Phenergan 25 mg Tablet] 1 - 2 tab PO Q6H PRN #15 tablet PRN Reason: Ranitidine HCl [Zantac 150 mg Tablet] 150 mg PO BID #30 tablet Referrals: IAN MUÑOZ MD [Primary Care Provider] - 11/22/17
[2017-11-19 23:50] LABS: ABSOLUTE LYMPHOCYTES (AUTO) 1.1 10^3/uL (0.5-4.7); ABSOLUTE MONOCYTES (AUTO) 0.7 10^3/uL (0.1-1.4); ABSOLUTE NEUT (AUTO) 9.2 10^3/uL (1.7-8.2); BASOPHILS % (AUTO) 0.2 % (0-2); EOSINOPHILS % (AUTO) 0.1 % (0-6); HEMOGLOBIN 14.4 g/dL (12.0-15.5); LYMPHOCYTES % (AUTO) 10.2 % (13-45); MEAN CORPUSCULAR HEMOGLOBIN 26.7 pg (27.0-33.4); MEAN CORPUSCULAR HGB CONC 34.3 g/dL (32.0-36.0); MEAN CORPUSCULAR VOLUME 78 fl (80-97); MONOCYTES % (AUTO) 6.6 % (3-13); PLATELET COUNT 254 10^3/uL (150-450); RED BLOOD COUNT 5.39 10^6/uL (3.72-5.28); RED CELL DISTRIBUTION WIDTH 14.7 % (11.5-14.0); SEGMENTED NEUTROPHILS % (AUTO) 82.9 % (42-78); TOTAL CELLS COUNTED % (AUTO) 100 %; WHITE BLOOD COUNT 11.1 10^3/uL (4.0-10.5)
[2017-11-20 00:08] LABS: ALANINE AMINOTRANSFERASE 20 U/L (9-52); ALBUMIN 4.5 g/dL (3.5-5.0); ALKALINE PHOSPHATASE 141 U/L (38-126); ANION GAP 15 (5-19); ASPARTATE AMINO TRANSFERASE 32 U/L (14-36); BILIRUBIN,DIRECT 0.2 mg/dL (0.0-0.4); BILIRUBIN,TOTAL 0.6 mg/dL (0.2-1.3); BLOOD UREA NITROGEN 17 mg/dL (7-20); CALCIUM 9.9 mg/dL (8.4-10.2); CARBON DIOXIDE 20 mmol/L (22-30); CHLORIDE 100 mmol/L (98-107); GLUCOSE 105 mg/dL (75-110); LIPASE 65.7 U/L (23-300); POTASSIUM 3.7 mmol/L (3.6-5.0); SODIUM 134.6 mmol/L (137-145); TOTAL PROTEIN 7.1 g/dL (6.3-8.2)
[2017-11-20] MEDS ORDERED: NORMAL SALINE 1000 ML 500 ML IV ONE (00:50)
[2017-11-20] MEDS ORDERED: HYDROMORPHONE HCL INJ/PF 2 MG/ML AMPULE IV ONE (00:51)
[2017-11-20 02:26] LABS: APPEARANCE,URINE CLEAR; BILIRUBIN,URINE NEGATIVE (NEGATIVE); COLOR,URINE YELLOW; GLUCOSE, URINE NEGATIVE (NEGATIVE); KETONES,URINE NEGATIVE (NEGATIVE); LEUKOCYTE ESTERASE,URINE MODERATE (NEGATIVE); NITRITE,URINE NEGATIVE (NEGATIVE); PROTEIN,URINE NEGATIVE (NEGATIVE); UROBILINOGEN,URINE NEGATIVE mg/dL (<2.0)
[2017-11-20 03:28] VITALS: BP 119/62
[2017-11-20] MEDS ORDERED: ONDANSETRON ODT 4 MG TAB (6 TAB/ER DISP) PO PRN (03:55)
[2017-11-20] MEDS ORDERED: HYDROCODONE/ACETAMINOPHEN 5-325 MG (6 TAB/ER DISP) PO PRN (03:55)
--- NOTE | 2017-11-20 07:33 | EKG REPORT ---
SEVERITY:- BORDERLINE ECG - SINUS RHYTHM CONSIDER INFERIOR INFARCT : Confirmed by: Juan Manuel Clarke MD 20-Nov-2017 07:33:23
== END 2017-11-20 04:53 | disposition home or self-care (01) ==
LOC: ER 21:35
DX: R11.2 Nausea with vomiting, unspecified (principal); R19.7 Diarrhea, unspecified; E86.0 Dehydration; D72.829 Elevated white blood cell count, unspecified; E87.1 Hypo-osmolality and hyponatremia; J44.9 Chronic obstructive pulmonary disease, unspecified; E11.9 Type 2 diabetes mellitus without complications; I25.10 Atherosclerotic heart disease of native coronary artery without angina pectoris; Z90.49 Acquired absence of other specified parts of digestive tract
CPT/HCPCS: 93005; 36591; 99284; 96361; 51701; 96374; 96375; 36415; 87086; 83690; 85025; 87088; 80053; 81001; 84484; 87186; 93010; J3010; J1170; J2405; J7030 ×2; A9270 ×2

== ENCOUNTER 2017-11-20 12:47 | Observation (INO) | payer MEDICARE, OTHER ==
[2017-11-20] MEDS ORDERED: HYDROMORPHONE HCL INJ/PF 2 MG/ML AMPULE IV PRN (13:30)
--- NOTE | 2017-11-20 15:03 | PDOC CONSULTATION ---
Consultation Consult Date: 11/20/17 Attending physician:: JEANETTE RAMOS Consult reason:: Nausea and vomiting History of Present Illness Admission Date/PCP: 11/20/17 12:47 IAN MUÑOZ MD History of Present Illness: VALENTE MUNOZ is a 62 year old female patient having multiple admission has nausea and vomiting last time she was here, Dr Lea saw her EGD was done, biopsies are negative I had performed a colonoscopy in 2016, biopsies at that time negative for collagenous , lymphocytic and microscopic colitis she is on chronic pain medication no indication that she is a brittle diabetic she has had a cholecystectomy in the past ? if due to autonomic issues patient need a gastric emptying study to see if any potential gastroparesis could be due to pain medication that is cause slow motility Past Medical History Cardiac Medical History: Reports: Congestive Heart Failure, Coronary Artery Disease, DVT, Myocardial Infarction, Hyperlipidema, Hypertension, Pulmonary Embolism Denies: Atrial Fibrillation, Peripheral Vascular Disease, Heart Murmur Pulmonary Medical History: Reports: Bronchitis, Chronic Obstructive Pulmonary Disease (COPD) Denies: Asthma, Pneumonia, Respiratory Failure, Sleep Apnea, Tuberculosis Neurological Medical History: Denies: Seizures Endocrine Medical History: Reports: Hypothyroidism Denies: Hyperthyroidism Renal/ Medical History: Denies: End Stage Renal Disease Malignancy Medical History: Reports: Cervical Cancer, Ovarian Cancer Denies: Breast Cancer, Leukemia, Lung Cancer GI Medical History: Reports: Gastroesophageal Reflux Disease, Hiatal Hernia - Repaired Denies: Crohn's Disease, Hepatitis Musculoskeltal Medical History: Reports: Arthritis - Lupus, Fibromyalgia - Lupus Psychiatric Medical History: Reports: Depression Denies: Bipolar Disorder, Dementia, Post Traumatic Stress Disorder Hematology: Reports: Anemia - HX OF LOW NA AND K,LOW IRON WILL HAVE IRON TRANS FUSION 05/04. Denies: Hemophilia, Sickle Cell Disease Infectious Medical History: Reports: Clostridium Difficile - Was negative in October2015. Not yet successfully collected stool Denies: HIV Past Surgical History Past Surgical History: Reports: Appendectomy, Cardiac Catheterization, Section, Cholecystectomy, Coronary Stent - 3 stents, Herniorrhaphy, Hysterectomy , Orthopedic Surgery - Right knee, bilateral knee replacements and hip replacement metal plate in, Tonsillectomy Denies: Amputation, Colostomy, Coronary Artery Bypass Graft, Gastric Bypass Surgery, Mastectomy, Pacemaker, Tubal Ligation Social History Smoking Status: Former Smoker Frequency of Alcohol Use: None Hx Recreational Drug Use: No Drugs: None Hx Prescription Drug Abuse: No Family History Family History: Arthritis, COPD, Hyperlipidemia, Hypertension, Malignancy, Thyroid Disfunction Parental Family History Reviewed: Yes Children Family History Reviewed: Unknown Sibling(s) Family History Reviewed.: Unknown Medication/Allergy Home Medications: Aspirin [Aspirin 325 mg Tablet] 325 mg PO DAILY 10/11/17 Atorvastatin Calcium [Lipitor 40 mg Tablet] 40 mg PO QHS 10/11/17 Cyanocobalamin (Vitamin B-12) [Vitamin B-12 Inj 1000 Mcg/1 ml Vial] 1,000 mcg IM .MONTHLY 10/11/17 Cyclobenzaprine HCl [Flexeril 10 mg Tablet] 10 mg PO Q8HP PRN 10/11/17 Gabapentin [Neurontin 300 mg Capsule] 600 mg PO Q8 10/11/17 Hydroxychloroquine Sulfate [Plaquenil 200 mg Tablet] 200 mg PO Q12 10/11/17 Levothyroxine Sodium [Synthroid 0.1 mg Tablet] 0.1 mg PO Q6AM 10/11/17 Losartan/Hydrochlorothiazide [Losartan-Hctz 100-25 mg Tab] 1 tab PO DAILY Hydrocodone Bitartrate [Zohydro ER] 1 tab PO Q12 10/13/17 Hydrocodone/Acetaminophen [Hydrocodone-Acetamin 10-325 mg] 1 tab PO Q6HP PRN 11/25 Ondansetron [Zofran Odt 4 mg Tablet] 4 mg PO Q6H PRN #30 tab.rapdis 11/18/17 Promethazine HCl 12.5 mg PO Q8H #30 tablet 11/18/17 Promethazine HCl [Phenergan 25 mg Tablet] 1 - 2 tab PO Q6H PRN #15 tablet Ranitidine HCl [Zantac 150 mg Tablet] 150 mg PO BID #30 tablet 11/20/17 Allergies/Adverse Reactions: irbesartan [From Avapro] Allergy (Severe, Verified 05/03/17 09:31) swelling of face nitrofurantoin macrocrystalline [From Macrobid] Allergy (Severe, Verified 09:31) Generalized edema Penicillins Allergy (Severe, Verified 05/03/17 09:31) eyes swelled pregabalin [From Lyrica] Allergy (Severe, Verified 05/03/17 09:31) Equilibrium Issues venom-honey bee [bee venom (honey bee)] Allergy (Verified 05/03/17 09:31) Anaphylaxis Review of Systems Constitutional: ABSENT: fever(s), night sweats Eyes: ABSENT: visual disturbances Ears: ABSENT: hearing changes Nose, Mouth, and Throat: ABSENT: mouth pain Cardiovascular: ABSENT: chest pain, orthropnea Respiratory: ABSENT: dyspnea, hemoptysis Gastrointestinal: PRESENT: nausea, vomiting. ABSENT: dysphagia, hematemesis, hematochezia, melena Genitourinary: ABSENT: dysuria, hematuria Integumentary: ABSENT: pruritus Neurological: ABSENT: syncope, tingling, tremor(s), weakness Endocrine: ABSENT: polydipsia, polyphagia, polyuria Physical Exam Vital Signs: Intake & Output 11/19/17 11/20/17 11/21/17 06:59 06:59 06:59 Weight 84.822 kg General appearance: PRESENT: morbidly obese Head exam: PRESENT: atraumatic, normocephalic Eye exam: PRESENT: EOMI, PERRLA. ABSENT: nystagmus, periorbital swelling, scleral icterus Mouth exam: PRESENT: moist, neck supple Throat exam: ABSENT: tonsillar exudate, tonsillogmegaly Neck exam: ABSENT: meningismus, tenderness, thyromegaly Respiratory exam: PRESENT: symmetrical, unlabored. ABSENT: chest wall tenderness Cardiovascular exam: PRESENT: RRR, +S1, +S2 GI/Abdominal exam: PRESENT: soft. ABSENT: Hugo's sign, rebound, rigid, tenderness Extremities exam: ABSENT: joint swelling Musculoskeletal exam: PRESENT: full ROM Neurological exam: PRESENT: oriented to time, oriented to situation, CN II-XII grossly intact Focused psych exam: ABSENT: restlessness Skin exam: PRESENT: mottled, normal color. ABSENT: urticaria, vesicles Assessment & Plan - Diagnosis (1) Nausea and vomiting Plan: recent EGD in Oct normal, no gastric outlet obstruction no H.Pylori would recommend gastric emptying study however patient is on pain medication and should be interpreted with that knowledge no further need to repeat EGD patient has had cholecystectomy (2) Diarrhea Plan: check for C.Diff patient had colonoscopy done in 2016, negative findings at that time biospies are negative again, not sure if repeating would be helpful check for C.Diff ? due to medications check for thyroid antibodies , TSH etc will follow along - Time Time Spent: 50 to 70 Minutes
[2017-11-20 15:19] LABS: HEMATOCRIT 42.5 % (36.0-47.0); HEMOGLOBIN 14.3 g/dL (12.0-15.5); MEAN CORPUSCULAR HEMOGLOBIN 26.1 pg (27.0-33.4); MEAN CORPUSCULAR HGB CONC 33.7 g/dL (32.0-36.0); MEAN CORPUSCULAR VOLUME 77 fl (80-97); PLATELET COUNT 279 10^3/uL (150-450); RED BLOOD COUNT 5.49 10^6/uL (3.72-5.28); RED CELL DISTRIBUTION WIDTH 14.7 % (11.5-14.0); WHITE BLOOD COUNT 9.2 10^3/uL (4.0-10.5)
[2017-11-20 15:32] LABS: ALANINE AMINOTRANSFERASE 23 U/L (9-52); ALBUMIN 4.5 g/dL (3.5-5.0); ALKALINE PHOSPHATASE 142 U/L (38-126); ANION GAP 14 (5-19); ASPARTATE AMINO TRANSFERASE 35 U/L (14-36); BILIRUBIN,DIRECT 0.5 mg/dL (0.0-0.4); BILIRUBIN,TOTAL 0.9 mg/dL (0.2-1.3); BLOOD UREA NITROGEN 18 mg/dL (7-20); CALCIUM 10.2 mg/dL (8.4-10.2); CARBON DIOXIDE 21 mmol/L (22-30); CHLORIDE 102 mmol/L (98-107); GLUCOSE 99 mg/dL (75-110); SODIUM 136.5 mmol/L (137-145); TOTAL PROTEIN 7.4 g/dL (6.3-8.2)
[2017-11-20 17:27] LABS: APPEARANCE,URINE CLEAR; BILIRUBIN,URINE NEGATIVE (NEGATIVE); COLOR,URINE YELLOW; GLUCOSE, URINE NEGATIVE (NEGATIVE); KETONES,URINE NEGATIVE (NEGATIVE); LEUKOCYTE ESTERASE,URINE LARGE (NEGATIVE); NITRITE,URINE NEGATIVE (NEGATIVE); PROTEIN,URINE NEGATIVE (NEGATIVE); URINE SPECIFIC GRAVITY 1.012; UROBILINOGEN,URINE NEGATIVE mg/dL (<2.0)
--- NOTE | 2017-11-20 18:51 | RADIOLOGY REPORT (SQ) ---
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 TECHNIQUE: Supine radiographic image of the abdomen acquired. LIMITATIONS: None. FINDINGS: BOWEL GAS PATTERN: Normal bowel gas pattern. No dilated loops. CALCIFICATIONS: No suspicious calcifications. SOFT TISSUES: No gross mass or suggestion of organomegaly. HARDWARE: Battery pack with neurostimulator electrodes over the lower thoracic spine. Lumbar fusion hardware. Old ventral hernia repair metallic pat. Right hip replacement. BONES: Osteoporotic with chronic L1 compression deformity. OTHER: No other significant finding. IMPRESSION: Nonobstructive bowel gas pattern TECHNICAL DOCUMENTATION: JOB ID: [id number] [employer]- All Rights Reserved Reading location - IP/workstation name: [email or web address]
[2017-11-20] MEDS ORDERED: METRONIDAZOLE 500 MG TABLET PO ONE (19:00)
[2017-11-20 19:11] LABS: HEMATOCRIT 41.4 % (36.0-47.0); MEAN CORPUSCULAR HEMOGLOBIN 26.6 pg (27.0-33.4); MEAN CORPUSCULAR HGB CONC 33.9 g/dL (32.0-36.0); MEAN CORPUSCULAR VOLUME 78 fl (80-97); PLATELET COUNT 293 10^3/uL (150-450); RED BLOOD COUNT 5.29 10^6/uL (3.72-5.28); RED CELL DISTRIBUTION WIDTH 14.9 % (11.5-14.0); WHITE BLOOD COUNT 9.2 10^3/uL (4.0-10.5)
[2017-11-20 19:17] LABS: INTERNATIONAL RATION (INR) 0.94; PROTHROMBIN TIME 13.3 SEC (11.4-15.4)
[2017-11-20 19:18] LABS: PARTIAL THROMBOPLASTIN TIME 36.3 SEC (23.5-35.8)
[2017-11-20] MEDS ORDERED: HYDROCODONE BITARTRATE PO SCH (20:00)
[2017-11-20] MEDS: ONDANSETRON 4 MG TAB.RAPDIS PO PRN (21:08)
[2017-11-20] MEDS: HYDROCODONE/ACETAMINOPHEN 10-325 MG TABLET PO PRN (21:09)
--- NOTE | 2017-11-20 21:35 | PDOC H&P ---
History of Present Illness Admission Date/PCP: 11/20/17 12:47 IAN MUÑOZ MD History of Present Illness: She was just discharged from this hospital on Sunday roughly 2 days ago she came to the emergency room last night because she was vomiting she also complained of diarrhea. She came to the office this morning in a wheelchair for evaluation of vomiting and diarrhea, she was recently admitted for the management of persistent vomiting and she was diagnosed at the time with ESBL Klebsiella pneumonia UTI before the last admission she was admitted for the same persistent vomiting she was also found at that time to have VRE UTI. She has had E EGD done as part of evaluation for persistent vomiting. The stool was positive for C. difficile toxin that will explain the diarrhea but not the vomiting that she has had for multiple weeks Past Medical History Cardiac Medical History: Reports: Congestive Heart Failure, Coronary Artery Disease, DVT, Myocardial Infarction, Hyperlipidema, Hypertension, Pulmonary Embolism Denies: Atrial Fibrillation, Peripheral Vascular Disease, Heart Murmur Pulmonary Medical History: Reports: Bronchitis, Chronic Obstructive Pulmonary Disease (COPD) Denies: Asthma, Pneumonia, Respiratory Failure, Sleep Apnea, Tuberculosis Neurological Medical History: Denies: Seizures Endocrine Medical History: Reports: Hypothyroidism Denies: Hyperthyroidism Renal/ Medical History: Denies: End Stage Renal Disease Malignancy Medical History: Reports: Cervical Cancer, Ovarian Cancer Denies: Breast Cancer, Leukemia, Lung Cancer GI Medical History: Reports: Gastroesophageal Reflux Disease, Hiatal Hernia - Repaired Denies: Crohn's Disease, Hepatitis Musculoskeltal Medical History: Reports: Arthritis - Lupus, Fibromyalgia - Lupus Psychiatric Medical History: Reports: Depression Denies: Bipolar Disorder, Dementia, Post Traumatic Stress Disorder Hematology: Reports: Anemia - HX OF LOW NA AND K,LOW IRON WILL HAVE IRON TRANS FUSION 05/04. Denies: Hemophilia, Sickle Cell Disease Infectious Medical History: Reports: Clostridium Difficile - Was negative in October2015. Not yet successfully collected stool Denies: HIV Past Surgical History Past Surgical History: Reports: Appendectomy, Cardiac Catheterization, Section, Cholecystectomy, Coronary Stent - 3 stents, Herniorrhaphy, Hysterectomy , Orthopedic Surgery - Right knee, bilateral knee replacements and hip replacement metal plate in, Tonsillectomy Denies: Amputation, Colostomy, Coronary Artery Bypass Graft, Gastric Bypass Surgery, Mastectomy, Pacemaker, Tubal Ligation Social History Smoking Status: Former Smoker Frequency of Alcohol Use: None Hx Recreational Drug Use: No Drugs: None Hx Prescription Drug Abuse: No Family History Family History: Arthritis, COPD, Hyperlipidemia, Hypertension, Malignancy, Thyroid Disfunction Parental Family History Reviewed: Yes Children Family History Reviewed: Yes Sibling(s) Family History Reviewed.: Yes Medication/Allergy Home Medications: Aspirin [Aspirin 325 mg Tablet] 325 mg PO DAILY 10/11/17 Atorvastatin Calcium [Lipitor 40 mg Tablet] 40 mg PO QHS 10/11/17 Cyanocobalamin (Vitamin B-12) [Vitamin B-12 Inj 1000 Mcg/1 ml Vial] 1,000 mcg IM .MONTHLY 10/11/17 Cyclobenzaprine HCl [Flexeril 10 mg Tablet] 10 mg PO Q8HP PRN 10/11/17 Gabapentin [Neurontin 300 mg Capsule] 600 mg PO Q8 10/11/17 Hydroxychloroquine Sulfate [Plaquenil 200 mg Tablet] 200 mg PO Q12 10/11/17 Levothyroxine Sodium [Synthroid 0.1 mg Tablet] 0.1 mg PO QPM 10/11/17 Losartan/Hydrochlorothiazide [Losartan-Hctz 100-25 mg Tab] 1 tab PO DAILY Hydrocodone Bitartrate [Zohydro ER] 1 tab PO Q12 10/13/17 Hydrocodone/Acetaminophen [Hydrocodone-Acetamin 10-325 mg] 1 tab PO Q6HP PRN 11/25 Apixaban [Eliquis 5 mg Tablet] 5 mg PO BID 11/21/17 Clopidogrel Bisulfate [Plavix 75 mg Tablet] 75 mg PO DAILY 11/21/17 Furosemide [Lasix 40 mg Tablet] 40 mg PO QAM 11/21/17 Promethazine HCl [Phenergan 25 mg Tablet] 1 tab PO Q6HP PRN 11/21/17 Metronidazole [Flagyl 500 mg Tablet] 500 mg PO Q8 #30 tablet 18 Allergies/Adverse Reactions: irbesartan [From Avapro] Allergy (Severe, Verified 05/03/17 09:31) swelling of face nitrofurantoin macrocrystalline [From Macrobid] Allergy (Severe, Verified 09:31) Generalized edema Penicillins Allergy (Severe, Verified 05/03/17 09:31) eyes swelled pregabalin [From Lyrica] Allergy (Severe, Verified 05/03/17 09:31) Equilibrium Issues venom-honey bee [bee venom (honey bee)] Allergy (Verified 05/03/17 09:31) Anaphylaxis Review of Systems Constitutional: ABSENT: chills, fever(s), headache(s), weight gain, weight loss Eyes: ABSENT: visual disturbances Ears: ABSENT: hearing changes Cardiovascular: ABSENT: chest pain, dyspnea on exertion, edema, orthropnea, palpitations Respiratory: ABSENT: cough, hemoptysis Gastrointestinal: PRESENT: diarrhea, vomiting Genitourinary: ABSENT: dysuria, hematuria Musculoskeletal: PRESENT: back pain, joint swelling Integumentary: ABSENT: rash, wounds Neurological: ABSENT: abnormal gait, abnormal speech, confusion, dizziness, focal weakness, syncope Psychiatric: ABSENT: anxiety, depression, homidical ideation, suicidal ideation Endocrine: ABSENT: cold intolerance, heat intolerance, menstrual abnormalities, polydipsia, polyuria Hematologic/Lymphatic: ABSENT: easy bleeding, easy bruising, lymphadenopathy Physical Exam Vital Signs: Temp Pulse Resp BP Pulse Ox 98.2 F 92 19 123/58 L 98 11/20/17 16:46 11/20/17 16:46 11/20/17 16:46 11/20/17 16:46 11/20/17 16:46 Intake & Output 11/19/17 11/20/17 11/21/17 06:59 06:59 06:59 Intake Total 100 Balance 100 Weight 84.822 kg General appearance: PRESENT: no acute distress Head exam: PRESENT: atraumatic, normocephalic Eye exam: PRESENT: conjunctiva pink, EOMI, PERRLA Ear exam: PRESENT: normal external ear exam Mouth exam: PRESENT: moist, tongue midline Neck exam: PRESENT: full ROM Respiratory exam: PRESENT: clear to auscultation martínez Cardiovascular exam: PRESENT: RRR, +S1, +S2 Pulses: PRESENT: normal dorsalis pedis pul, +2 pedal pulses bilateral Vascular exam: PRESENT: normal capillary refill GI/Abdominal exam: PRESENT: normal bowel sounds, soft Rectal exam: PRESENT: deferred Neurological exam: PRESENT: alert Psychiatric exam: PRESENT: appropriate affect, normal mood Skin exam: PRESENT: dry, intact, warm. ABSENT: cyanosis, rash Results Laboratory Results: 11/20/17 18:59 11/20/17 18:59 11/20/17 11/20/17 11/20/17 15:03 15:03 16:39 WBC 9.2 RBC 5.49 H Hgb 14.3 Hct 42.5 MCV 77 L MCH 26.1 L MCHC 33.7 RDW 14.7 H Plt Count 279 Sodium 136.5 L Potassium 4.0 Chloride 102 Carbon Dioxide 21 L Anion Gap 14 BUN 18 Creatinine 1.08 Est GFR ( Amer) > 60 Est GFR (Non-Af Amer) 51 L Glucose 99 Calcium 10.2 Total Bilirubin 0.9 AST 35 ALT 23 Alkaline Phosphatase 142 H Total Protein 7.4 Albumin 4.5 Urine Color YELLOW Urine Appearance CLEAR Urine pH 7.0 Ur Specific [place] 1.012 Urine Protein NEGATIVE Urine Glucose (UA) NEGATIVE Urine Ketones NEGATIVE Urine Blood SMALL H Urine Nitrite NEGATIVE Ur Leukocyte Esterase LARGE H Urine WBC (Auto) 14 Urine RBC (Auto) 1 11/20/17 11/20/17 18:59 18:59 WBC 9.2 RBC 5.29 H Hgb 14.0 Hct 41.4 MCV 78 L MCH 26.6 L MCHC 33.9 RDW 14.9 H Plt Count 293 Sodium Potassium Chloride Carbon Dioxide Anion Gap BUN Creatinine 1.01 Est GFR ( Amer) > 60 Est GFR (Non-Af Amer) 55 L Glucose Calcium Total Bilirubin AST ALT Alkaline Phosphatase Total Protein Albumin Urine Color Urine Appearance Urine pH Ur Specific [place] Urine Protein Urine Glucose (UA) Urine Ketones Urine Blood Urine Nitrite Ur Leukocyte Esterase Urine WBC (Auto) Urine RBC (Auto) Impressions: KUB X-Ray 11/20/17 00:00 IMPRESSION: Nonobstructive bowel gas pattern Assessment & Plan - Diagnosis (1) Clostridium difficile diarrhea Is this a current diagnosis for this admission?: Yes Plan: Start Flagyl p.o. (2) Vomiting Qualifiers: Vomiting type: unspecified Vomiting Intractability: intractable Nausea presence: with nausea Qualified Code(s): R11.2 - Nausea with vomiting, unspecified Is this a current diagnosis for this admission?: Yes
[2017-11-21] MEDS: HYDROCODONE/ACETAMINOPHEN 10-325 MG TABLET PO PRN ×3 (04:35→22:10)
[2017-11-21] MEDS: ONDANSETRON 4 MG TAB.RAPDIS PO PRN ×2 (04:36→10:39)
[2017-11-21] MEDS: METRONIDAZOLE 500 MG TABLET PO SCH ×3 (04:36→22:10)
[2017-11-21] MEDS: NORMAL SALINE 1000 ML 1,000 ML IV PRN ×2 (04:36→16:21)
[2017-11-21] MEDS: ENOXAPARIN SODIUM INJ 40 MG/0.4 ML DISP.SYRIN SUBCUT SCH (10:38)
[2017-11-21] MEDS ORDERED: ONDANSETRON HCL INJ/PF 4 MG/2 ML SDV ONE (11:15)
--- NOTE | 2017-11-21 12:58 | PDOC PROGRESS REPORT ---
Subjective Progress Note for:: 11/21/17 Subjective:: Spoke with patient, states that previously could not ingest egg sandwich to get gastric emptying test done had C.Diff patient currently on treatment patient had EGD done last month by Dr Lea, negative studies she will need to have her symptoms improve and proceed with the test in the meanwhile, PPI and antiemetics no plans to repeat EGD for now Reason For Visit: PERSISTENT INTRACTABLE VOMITING,DIARRHEA Physical Exam Vital Signs: Temp Pulse Resp BP Pulse Ox 97.9 F 80 16 145/62 H 100 11/21/17 11:12 11/21/17 11:12 11/21/17 11:12 11/21/17 11:12 11/21/17 11:12 Intake & Output 11/20/17 11/21/17 11/22/17 06:59 06:59 06:59 Intake Total 1840 Balance 1840 Weight 85.3 kg General appearance: PRESENT: no acute distress, well-developed, well-nourished Head exam: PRESENT: atraumatic, normocephalic Eye exam: PRESENT: EOMI, PERRLA. ABSENT: nystagmus, periorbital swelling, scleral icterus Mouth exam: PRESENT: moist Throat exam: ABSENT: tonsillar exudate, tonsillogmegaly Neck exam: ABSENT: meningismus, tenderness, thyromegaly Respiratory exam: PRESENT: symmetrical, unlabored. ABSENT: wheezes Cardiovascular exam: PRESENT: RRR, +S1, +S2 GI/Abdominal exam: PRESENT: soft. ABSENT: rebound, rigid, tenderness Extremities exam: ABSENT: joint swelling Neurological exam: PRESENT: alert, awake, oriented to time, CN II-XII grossly intact Psychiatric exam: PRESENT: flat affect Focused psych exam: ABSENT: restlessness Skin exam: PRESENT: normal color. ABSENT: mottled, pallor, petechiae, urticaria , vesicles Results Laboratory Results: 11/20/17 18:59 11/20/17 18:59 11/20/17 11/20/17 11/20/17 15:03 15:03 16:39 WBC 9.2 RBC 5.49 H Hgb 14.3 Hct 42.5 MCV 77 L MCH 26.1 L MCHC 33.7 RDW 14.7 H Plt Count 279 Sodium 136.5 L Potassium 4.0 Chloride 102 Carbon Dioxide 21 L Anion Gap 14 BUN 18 Creatinine 1.08 Est GFR ( Amer) > 60 Est GFR (Non-Af Amer) 51 L Glucose 99 Calcium 10.2 Total Bilirubin 0.9 AST 35 ALT 23 Alkaline Phosphatase 142 H Total Protein 7.4 Albumin 4.5 Urine Color YELLOW Urine Appearance CLEAR Urine pH 7.0 Ur Specific [place] 1.012 Urine Protein NEGATIVE Urine Glucose (UA) NEGATIVE Urine Ketones NEGATIVE Urine Blood SMALL H Urine Nitrite NEGATIVE Ur Leukocyte Esterase LARGE H Urine WBC (Auto) 14 Urine RBC (Auto) 1 11/20/17 11/20/17 18:59 18:59 WBC 9.2 RBC 5.29 H Hgb 14.0 Hct 41.4 MCV 78 L MCH 26.6 L MCHC 33.9 RDW 14.9 H Plt Count 293 Sodium Potassium Chloride Carbon Dioxide Anion Gap BUN Creatinine 1.01 Est GFR ( Amer) > 60 Est GFR (Non-Af Amer) 55 L Glucose Calcium Total Bilirubin AST ALT Alkaline Phosphatase Total Protein Albumin Urine Color Urine Appearance Urine pH Ur Specific [place] Urine Protein Urine Glucose (UA) Urine Ketones Urine Blood Urine Nitrite Ur Leukocyte Esterase Urine WBC (Auto) Urine RBC (Auto) Impressions: KUB X-Ray 11/20/17 00:00 IMPRESSION: Nonobstructive bowel gas pattern Assessment & Plan - Diagnosis (1) Nausea and vomiting Plan: s/p cholecystectomy, negative EGD for and biopsies are negative on chronic pain medication has nausea and vomiting needs gastric emptying scan patient states does not think that she can tolerate?? at this point that would be the test of choice would not repeat EGD given negative findings only recently (2) Diarrhea Plan: C.Diff , treat as per protocol patient needs to avoid ETOH if outpatient treatment to be continued since she is on Flagyl that will make more nauseated and cause more vomiting
[2017-11-21] MEDS: ONDANSETRON HCL INJ/PF 4 MG/2 ML SDV IV PRN ×2 (16:21→22:10)
[2017-11-21] MEDS: FENTANYL CITRATE INJ/PF 100 MCG/2 ML AMPUL IV PRN (19:10)
[2017-11-22] MEDS: ONDANSETRON HCL INJ/PF 4 MG/2 ML SDV IV PRN (04:29)
[2017-11-22] MEDS: FENTANYL CITRATE INJ/PF 100 MCG/2 ML AMPUL IV PRN ×2 (04:29→10:51)
[2017-11-22] MEDS: HYDROCODONE/ACETAMINOPHEN 10-325 MG TABLET PO PRN (06:22)
[2017-11-22] MEDS: METRONIDAZOLE 500 MG TABLET PO SCH (06:23)
[2017-11-22] MEDS: ENOXAPARIN SODIUM INJ 40 MG/0.4 ML DISP.SYRIN SUBCUT SCH (09:44)
[2017-11-22 12:20] VITALS: BP 125/82
--- NOTE | 2017-11-22 17:52 | PDOC DISCHARGE SUMMARY ---
General - Admit/Disc Date/PCP Admission Date/Primary Care Provider: 11/20/17 12:47 IAN MUÑOZ MD Discharge Date: 11/22/17 - Discharge Diagnosis (1) Clostridium difficile diarrhea Is this a current diagnosis for this admission?: Yes (2) Vomiting Is this a current diagnosis for this admission?: Yes - Additional Information Discharge Diet: As Tolerated Discharge Activity: Activity As Tolerated Prescriptions: Metronidazole [Flagyl 500 mg Tablet] 500 mg PO Q8 #30 tablet Home Medications: Aspirin [Aspirin 325 mg Tablet] 325 mg PO DAILY 10/11/17 Atorvastatin Calcium [Lipitor 40 mg Tablet] 40 mg PO QHS 10/11/17 Cyanocobalamin (Vitamin B-12) [Vitamin B-12 Inj 1000 Mcg/1 ml Vial] 1,000 mcg IM .MONTHLY 10/11/17 Cyclobenzaprine HCl [Flexeril 10 mg Tablet] 10 mg PO Q8HP PRN 10/11/17 Gabapentin [Neurontin 300 mg Capsule] 600 mg PO Q8 10/11/17 Hydroxychloroquine Sulfate [Plaquenil 200 mg Tablet] 200 mg PO Q12 10/11/17 Levothyroxine Sodium [Synthroid 0.1 mg Tablet] 0.1 mg PO QPM 10/11/17 Losartan/Hydrochlorothiazide [Losartan-Hctz 100-25 mg Tab] 1 tab PO DAILY Hydrocodone Bitartrate [Zohydro ER] 1 tab PO Q12 10/13/17 Hydrocodone/Acetaminophen [Hydrocodone-Acetamin 10-325 mg] 1 tab PO Q6HP PRN 11/25 Apixaban [Eliquis 5 mg Tablet] 5 mg PO BID 11/21/17 Clopidogrel Bisulfate [Plavix 75 mg Tablet] 75 mg PO DAILY 11/21/17 Furosemide [Lasix 40 mg Tablet] 40 mg PO QAM 11/21/17 Promethazine HCl [Phenergan 25 mg Tablet] 1 tab PO Q6HP PRN 11/21/17 Metronidazole [Flagyl 500 mg Tablet] 500 mg PO Q8 #30 tablet 11/22/17 History of Present Illness History of Present Illness: She was just discharged from this hospital on Sunday roughly 2 days ago she came to the emergency room last night because she was vomiting she also complained of diarrhea. She came to the office this morning in a wheelchair for evaluation of vomiting and diarrhea, she was recently admitted for the management of persistent vomiting and she was diagnosed at the time with ESBL Klebsiella pneumonia UTI before the last admission she was admitted for the same persistent vomiting she was also found at that time to have VRE UTI. She has had E EGD done as part of evaluation for persistent vomiting. The stool was positive for C. difficile toxin that will explain the diarrhea but not the vomiting that she has had for multiple weeks Hospital Course Hospital Course: .Was admitted for the management of diarrhea due to Clostridium difficile, she was treated with p.o. Flagyl, she also had vomiting she was seen by GI. Dr. Banerjee she was admitted for observation.She also had pain requiring intravenous pain medication for the control pain pain medication Physical Exam Vital Signs: Temp Pulse Resp BP Pulse Ox 98.5 F 78 18 125/82 100 11/22/17 13:47 11/22/17 13:47 11/22/17 13:47 11/22/17 13:47 11/22/17 13:47 Intake & Output 11/21/17 11/22/17 11/23/17 06:59 06:59 06:59 Intake Total 1840 3800 Output Total 810 Balance 1840 2990 Weight 85.3 kg General appearance: PRESENT: no acute distress, well-developed, well-nourished Head exam: PRESENT: atraumatic, normocephalic Eye exam: PRESENT: conjunctiva pink, EOMI, PERRLA Ear exam: PRESENT: normal external ear exam Mouth exam: PRESENT: moist, tongue midline Neck exam: PRESENT: full ROM Respiratory exam: PRESENT: clear to auscultation martínez Cardiovascular exam: PRESENT: RRR, +S1, +S2 Pulses: PRESENT: normal dorsalis pedis pul, +2 pedal pulses bilateral Vascular exam: PRESENT: normal capillary refill GI/Abdominal exam: PRESENT: normal bowel sounds, soft Rectal exam: PRESENT: deferred Neurological exam: PRESENT: alert, awake, oriented to person, oriented to place , oriented to time, oriented to situation, CN II-XII grossly intact Psychiatric exam: PRESENT: appropriate affect, normal mood Skin exam: PRESENT: dry, intact, warm Results Laboratory Results: 11/20/17 18:59 11/20/17 18:59 11/20/17 16:39 Clean Catch Midstream Urine Culture - Final Klebsiella Pneumoniae-Esbl Impressions: KUB X-Ray 11/20/17 00:00 IMPRESSION: Nonobstructive bowel gas pattern Qualifiers - * PATEINT BEING DISCHARGED WITH ANY OF THE FOLLOWING DIAGNOSIS?: No VTE patient discharged on overlapping Therapy?: Yes
== END 2017-11-22 14:10 | disposition home or self-care (01) ==
LOC: 5 12:47
PROVIDERS: ADMIT Internal Medicine; ATTEND Internal Medicine
DX: A04.72 Enterocolitis due to Clostridium difficile, not specified as recurrent (principal); R11.2 Nausea with vomiting, unspecified; E66.01 Morbid (severe) obesity due to excess calories; E03.9 Hypothyroidism, unspecified; E78.5 Hyperlipidemia, unspecified; I25.10 Atherosclerotic heart disease of native coronary artery without angina pectoris; I11.0 Hypertensive heart disease with heart failure; I50.9 Heart failure, unspecified; M25.40 Effusion, unspecified joint; R82.79 Other abnormal findings on microbiological examination of urine; G89.29 Other chronic pain; Z68.34 Body mass index [BMI] 34.0-34.9, adult; Z86.19 Personal history of other infectious and parasitic diseases; Z87.440 Personal history of urinary (tract) infections; Z87.01 Personal history of pneumonia (recurrent); Z90.49 Acquired absence of other specified parts of digestive tract; Z85.41 Personal history of malignant neoplasm of cervix uteri; Z85.43 Personal history of malignant neoplasm of ovary; Z98.890 Other specified postprocedural states; Z90.710 Acquired absence of both cervix and uterus; Z95.5 Presence of coronary angioplasty implant and graft; Z80.9 Family history of malignant neoplasm, unspecified; Z87.891 Personal history of nicotine dependence; Z79.82 Long term (current) use of aspirin; Z79.02 Long term (current) use of antithrombotics/antiplatelets
CPT/HCPCS: 36415; 87040; 87086; 82565; 85027; 85610; 85730; 87088; 80076; 80048; 81001; 87186; 87493; 74018; G0378 ×3; G0379; A9270 ×8; J3010 ×2; J1650 ×2; J2405 ×2; J7030; J1642; S0119

== ENCOUNTER 2017-11-23 12:46 | Observation (INO) | payer MEDICARE, OTHER ==
[2017-11-23] MEDS: ONDANSETRON HCL INJ/PF 4 MG/2 ML SDV IV PRN (15:35)
[2017-11-23 16:17] LABS: ABSOLUTE LYMPHOCYTES (AUTO) 1.3 10^3/uL (0.5-4.7); ABSOLUTE MONOCYTES (AUTO) 0.5 10^3/uL (0.1-1.4); ABSOLUTE NEUT (AUTO) 6.2 10^3/uL (1.7-8.2); BASOPHILS % (AUTO) 0.4 % (0-2); EOSINOPHILS % (AUTO) 0.3 % (0-6); HEMATOCRIT 40.3 % (36.0-47.0); HEMOGLOBIN 13.6 g/dL (12.0-15.5); LYMPHOCYTES % (AUTO) 16.1 % (13-45); MEAN CORPUSCULAR HEMOGLOBIN 26.4 pg (27.0-33.4); MEAN CORPUSCULAR HGB CONC 33.8 g/dL (32.0-36.0); MEAN CORPUSCULAR VOLUME 78 fl (80-97); MONOCYTES % (AUTO) 6.6 % (3-13); PLATELET COUNT 286 10^3/uL (150-450); RED BLOOD COUNT 5.16 10^6/uL (3.72-5.28); RED CELL DISTRIBUTION WIDTH 14.7 % (11.5-14.0); SEGMENTED NEUTROPHILS % (AUTO) 76.6 % (42-78); TOTAL CELLS COUNTED % (AUTO) 100 %; WHITE BLOOD COUNT 8.1 10^3/uL (4.0-10.5)
[2017-11-23 16:29] LABS: ANION GAP 14 (5-19); BLOOD UREA NITROGEN 9 mg/dL (7-20); CALCIUM 9.8 mg/dL (8.4-10.2); CARBON DIOXIDE 22 mmol/L (22-30); CHLORIDE 103 mmol/L (98-107); GLUCOSE 69 mg/dL (75-110); POTASSIUM 3.7 mmol/L (3.6-5.0); SODIUM 138.9 mmol/L (137-145)
--- NOTE | 2017-11-23 20:43 | PDOC H&P ---
History of Present Illness Admission Date/PCP: 11/23/17 12:46 INA MUÑOZ MD History of Present Illness: VALENTE MUNOZ is a 62 year old female.She was just discharged from the hospital 24 hours ago when she was admitted for diarrhea and vomiting she was diagnosed with clostridium difficile colitis, she was treated with Flagyl and she was discharged home. She came to the office today with complaint of profuse diarrhea not able to keep any food down she feels dehydrated. She has had multiple hospital admission for GI related symptoms. She feels that she was getting dehydrated because she is not able to drink and she is losing fluid due to frequent diarrhea. The last time she was admitted to the hospital when she had C. difficile colitis diagnosed she did not have any profuse diarrhea for 24 hours she was then discharged home on p.o. Flagyl but she said since she got home she developed profuse diarrhea and vomiting.It seems that we have to make provision for this patient to receive IV fluid at home because she has had many admission on the basis of vomiting she may need a prokinetic drug like metoclopramide but we cannot initiate the medication with ongoing diarrhea that may exacerbate the diarrhea Past Medical History Cardiac Medical History: Reports: DVT, Myocardial Infarction, Hyperlipidema, Hypertension, Pulmonary Embolism Pulmonary Medical History: Reports: Bronchitis, Chronic Obstructive Pulmonary Disease (COPD) Neurological Medical History: Denies: Seizures Endocrine Medical History: Reports: Hypothyroidism Denies: Hyperthyroidism Malignancy Medical History: Reports: Cervical Cancer, Ovarian Cancer GI Medical History: Reports: Gastroesophageal Reflux Disease, Hiatal Hernia - Repaired Musculoskeltal Medical History: Reports: Arthritis - Lupus, Fibromyalgia - Lupus Psychiatric Medical History: Reports: Depression Hematology: Reports: Anemia - HX OF LOW NA AND K,LOW IRON WILL HAVE IRON TRANS FUSION 05/04. Infectious Medical History: Reports: Clostridium Difficile - Was negative in October2015. Not yet successfully collected stool Past Surgical History Past Surgical History: Reports: Appendectomy, Cardiac Catheterization, Section, Cholecystectomy, Coronary Stent - 3 stents, Herniorrhaphy, Hysterectomy , Orthopedic Surgery - Right knee, bilateral knee replacements and hip replacement metal plate in, Tonsillectomy Social History Smoking Status: Unknown if Ever Smoked Frequency of Alcohol Use: None Hx Recreational Drug Use: No Drugs: None Hx Prescription Drug Abuse: No - Advance Directive Resuscitation Status: Full Code Family History Family History: Arthritis, COPD, Hyperlipidemia, Hypertension, Malignancy, Thyroid Disfunction Parental Family History Reviewed: Yes Children Family History Reviewed: Yes Sibling(s) Family History Reviewed.: Yes Medication/Allergy Home Medications: Aspirin [Aspirin 325 mg Tablet] 325 mg PO DAILY 10/11/17 Atorvastatin Calcium [Lipitor 40 mg Tablet] 40 mg PO QHS 10/11/17 Cyanocobalamin (Vitamin B-12) [Vitamin B-12 Inj 1000 Mcg/1 ml Vial] 1,000 mcg IM .MONTHLY 10/11/17 Cyclobenzaprine HCl [Flexeril 10 mg Tablet] 10 mg PO Q8HP PRN 10/11/17 Gabapentin [Neurontin 300 mg Capsule] 600 mg PO Q8 10/11/17 Hydroxychloroquine Sulfate [Plaquenil 200 mg Tablet] 200 mg PO Q12 10/11/17 Levothyroxine Sodium [Synthroid 0.1 mg Tablet] 0.1 mg PO QPM 10/11/17 Losartan/Hydrochlorothiazide [Losartan-Hctz 100-25 mg Tab] 1 tab PO DAILY Hydrocodone Bitartrate [Zohydro ER] 1 tab PO Q12 10/13/17 Hydrocodone/Acetaminophen [Hydrocodone-Acetamin 10-325 mg] 1 tab PO Q6HP PRN 11/25 Apixaban [Eliquis 5 mg Tablet] 5 mg PO BID 11/21/17 Clopidogrel Bisulfate [Plavix 75 mg Tablet] 75 mg PO DAILY 11/21/17 Furosemide [Lasix 40 mg Tablet] 40 mg PO QAM 11/21/17 Promethazine HCl [Phenergan 25 mg Tablet] 1 tab PO Q6HP PRN 11/21/17 Metronidazole [Flagyl 500 mg Tablet] 500 mg PO Q8 #30 tablet 11/22/17 Allergies/Adverse Reactions: irbesartan [From Avapro] Allergy (Severe, Verified 05/03/17 09:31) swelling of face nitrofurantoin macrocrystalline [From Macrobid] Allergy (Severe, Verified 09:31) Generalized edema Penicillins Allergy (Severe, Verified 05/03/17 09:31) eyes swelled pregabalin [From Lyrica] Allergy (Severe, Verified 05/03/17 09:31) Equilibrium Issues venom-honey bee [bee venom (honey bee)] Allergy (Verified 05/03/17 09:31) Anaphylaxis Review of Systems Constitutional: ABSENT: chills, fever(s), headache(s), weight gain, weight loss Eyes: ABSENT: visual disturbances Ears: ABSENT: hearing changes Cardiovascular: ABSENT: chest pain, dyspnea on exertion, edema, orthropnea, palpitations Respiratory: ABSENT: cough, hemoptysis Gastrointestinal: PRESENT: diarrhea, vomiting Genitourinary: ABSENT: dysuria, hematuria Musculoskeletal: ABSENT: joint swelling Integumentary: ABSENT: rash, wounds Neurological: ABSENT: abnormal gait, abnormal speech, confusion, dizziness, focal weakness, syncope Psychiatric: ABSENT: anxiety, depression, homidical ideation, suicidal ideation Endocrine: ABSENT: cold intolerance, heat intolerance, menstrual abnormalities, polydipsia, polyuria Hematologic/Lymphatic: ABSENT: easy bleeding, easy bruising, lymphadenopathy Physical Exam Vital Signs: Temp Pulse Resp BP Pulse Ox 98.0 F 80 16 152/64 H 98 11/23/17 20:10 11/23/17 20:10 11/23/17 20:10 11/23/17 20:10 11/23/17 20:10 Intake & Output 11/22/17 11/23/17 11/24/17 06:59 06:59 06:59 Intake Total 300 Balance 300 Weight 88.995 kg Head exam: PRESENT: atraumatic, normocephalic Eye exam: PRESENT: conjunctiva pink, EOMI, PERRLA Ear exam: PRESENT: normal external ear exam Mouth exam: PRESENT: dry mucosa, moist, tongue midline Neck exam: PRESENT: full ROM Respiratory exam: PRESENT: clear to auscultation martínez Cardiovascular exam: PRESENT: RRR, +S1, +S2 Pulses: PRESENT: normal dorsalis pedis pul, +2 pedal pulses bilateral Vascular exam: PRESENT: normal capillary refill GI/Abdominal exam: PRESENT: normal bowel sounds, soft Rectal exam: PRESENT: deferred Neurological exam: PRESENT: alert Psychiatric exam: PRESENT: appropriate affect, normal mood Skin exam: PRESENT: dry, intact, warm Results Laboratory Results: 11/23/17 16:08 11/23/17 16:08 11/23/17 11/23/17 11/23/17 16:08 16:08 16:08 WBC 8.1 RBC 5.16 Hgb 13.6 Hct 40.3 MCV 78 L MCH 26.4 L MCHC 33.8 RDW 14.7 H Plt Count 286 Seg Neutrophils % 76.6 Lymphocytes % 16.1 Monocytes % 6.6 Eosinophils % 0.3 Basophils % 0.4 Absolute Neutrophils 6.2 Absolute Lymphocytes 1.3 Absolute Monocytes 0.5 Absolute Eosinophils 0.0 Absolute Basophils 0.0 Sodium 138.9 Potassium 3.7 Chloride 103 Carbon Dioxide 22 Anion Gap 14 BUN 9 Creatinine 0.86 Est GFR ( Amer) > 60 Est GFR (Non-Af Amer) > 60 Glucose 69 L Calcium 9.8 TSH 1.06 Free T4 Cancelled 11/23/17 18:27 WBC RBC Hgb Hct MCV MCH MCHC RDW Plt Count Seg Neutrophils % Lymphocytes % Monocytes % Eosinophils % Basophils % Absolute Neutrophils Absolute Lymphocytes Absolute Monocytes Absolute Eosinophils Absolute Basophils Sodium Potassium Chloride Carbon Dioxide Anion Gap BUN Creatinine Est GFR ( Amer) Est GFR (Non-Af Amer) Glucose Calcium TSH Free T4 1.36 Assessment & Plan - Diagnosis (1) Clostridium difficile diarrhea Is this a current diagnosis for this admission?: Yes Plan: Admitted to the hospital for management (2) Coronary artery disease Qualifiers: Coronary Disease-Associated Artery/Lesion type: [place] artery [place] vs. transplanted heart: [place] heart (3) Systemic lupus erythematosus Qualifiers: Systemic lupus erythematosus type: unspecified Systemic lupus erythematosus organ involvement: unspecified Qualified Code(s): M32.9 - Systemic lupus erythematosus, unspecified Is this a current diagnosis for this admission?: Yes
[2017-11-23] MEDS ORDERED: FENTANYL CITRATE INJ/PF 50 MCG/1 ML 50 ML SDV IV SCH (22:00)
[2017-11-23] MEDS: FENTANYL CITRATE INJ/PF 100 MCG/2 ML AMPUL INJ SCH (22:07)
[2017-11-23] MEDS: METRONIDAZOLE 500 MG/NS RTU 100 ML IV SCH (22:07)
[2017-11-24] MEDS: ONDANSETRON HCL INJ/PF 4 MG/2 ML SDV IV PRN ×3 (02:56→19:47)
[2017-11-24] MEDS ORDERED: METRONIDAZOLE 500 MG/NS RTU 100 ML IV ONE (06:12)
[2017-11-24] MEDS: METRONIDAZOLE 500 MG/NS RTU 100 ML IV SCH ×2 (06:17→13:58)
[2017-11-24] MEDS: FENTANYL CITRATE INJ/PF 100 MCG/2 ML AMPUL INJ SCH ×3 (06:18→21:08)
[2017-11-24] MEDS: NORMAL SALINE 1000 ML 1,000 ML IV PRN ×2 (06:18→21:27)
--- NOTE | 2017-11-24 17:50 | PDOC PROGRESS REPORT ---
Subjective Progress Note for:: 11/24/17 Subjective:: Patient reported resolution of diarrhea, nausea and vomiting since lunch today. She remain on IV Metronidazole. Her stool C.difficile toxin was reported positive on 11/20/2017. No chest pain or difficulty with breathing. No fever or chills. Reason For Visit: DEHYDRATION,DIARRHEA,VOMITING Physical Exam Vital Signs: Temp Pulse Resp BP Pulse Ox 98.8 F 88 18 142/82 H 99 11/24/17 15:47 11/24/17 15:47 11/24/17 15:47 11/24/17 15:47 11/24/17 15:47 Intake & Output 11/23/17 11/24/17 11/25/17 06:59 06:59 06:59 Intake Total 300 850 Balance 300 850 Weight 88.995 kg General appearance: PRESENT: no acute distress, well-developed, well-nourished Head exam: PRESENT: atraumatic, normocephalic Eye exam: PRESENT: conjunctiva pink, EOMI, PERRLA. ABSENT: scleral icterus Mouth exam: PRESENT: moist Respiratory exam: PRESENT: clear to auscultation martínez Cardiovascular exam: PRESENT: RRR. ABSENT: diastolic murmur, rubs, systolic murmur Vascular exam: PRESENT: normal capillary refill. ABSENT: pallor GI/Abdominal exam: PRESENT: normal bowel sounds, soft. ABSENT: distended, guarding, mass, organolmegaly, rebound, tenderness Extremities exam: ABSENT: pedal edema Musculoskeletal exam: PRESENT: normal inspection Neurological exam: PRESENT: alert, awake, oriented to person, oriented to place , oriented to time, oriented to situation, CN II-XII grossly intact. ABSENT: motor sensory deficit Psychiatric exam: PRESENT: appropriate affect, normal mood. ABSENT: homicidal ideation, suicidal ideation Skin exam: PRESENT: dry, intact, warm. ABSENT: cyanosis, rash Results Laboratory Results: 11/23/17 16:08 11/23/17 16:08 11/23/17 18:27 Free T4 1.36 Assessment & Plan - Diagnosis (1) Clostridium difficile diarrhea Is this a current diagnosis for this admission?: Yes Plan: See covering attending physician orders. (2) Dehydration Is this a current diagnosis for this admission?: Yes Plan: See covering attending physician orders. - Time Time Spent with patient: 25-34 minutes Medications reviewed and adjusted accordingly: Yes Anticipated discharge: Home Within: within 24 hours - Plan Summary Plan Summary: D/C IV Metronidazole. Start on oral Metronidazole 500 mg po tid. Maintain on IV fluid infusion. Obtain CBC with diff and BMP in AM
[2017-11-24] MEDS: METRONIDAZOLE 500 MG TABLET PO SCH (21:08)
[2017-11-25] MEDS: ONDANSETRON HCL INJ/PF 4 MG/2 ML SDV IV PRN ×2 (04:30→12:03)
[2017-11-25] MEDS: METRONIDAZOLE 500 MG TABLET PO SCH ×2 (05:15→14:35)
[2017-11-25] MEDS: FENTANYL CITRATE INJ/PF 100 MCG/2 ML AMPUL INJ SCH ×2 (05:15→12:53)
[2017-11-25] MEDS: NORMAL SALINE 1000 ML 1,000 ML IV PRN (10:18)
[2017-11-25 14:30] LABS: ABSOLUTE EOSINOPHILS # (AUTO) 0.1 10^3/uL (0.0-0.6); ABSOLUTE LYMPHOCYTES (AUTO) 1.4 10^3/uL (0.5-4.7); ABSOLUTE MONOCYTES (AUTO) 0.4 10^3/uL (0.1-1.4); ABSOLUTE NEUT (AUTO) 5.4 10^3/uL (1.7-8.2); BASOPHILS % (AUTO) 0.4 % (0-2); EOSINOPHILS % (AUTO) 0.8 % (0-6); HEMATOCRIT 37.8 % (36.0-47.0); HEMOGLOBIN 12.9 g/dL (12.0-15.5); LYMPHOCYTES % (AUTO) 18.7 % (13-45); MEAN CORPUSCULAR HEMOGLOBIN 26.5 pg (27.0-33.4); MEAN CORPUSCULAR VOLUME 78 fl (80-97); MONOCYTES % (AUTO) 5.3 % (3-13); PLATELET COUNT 300 10^3/uL (150-450); RED BLOOD COUNT 4.87 10^6/uL (3.72-5.28); RED CELL DISTRIBUTION WIDTH 15.2 % (11.5-14.0); SEGMENTED NEUTROPHILS % (AUTO) 74.8 % (42-78); TOTAL CELLS COUNTED % (AUTO) 100 %; WHITE BLOOD COUNT 7.3 10^3/uL (4.0-10.5)
[2017-11-25 14:37] LABS: ANION GAP 11 (5-19); BLOOD UREA NITROGEN 7 mg/dL (7-20); CALCIUM 9.2 mg/dL (8.4-10.2); CARBON DIOXIDE 19 mmol/L (22-30); CHLORIDE 105 mmol/L (98-107); GLUCOSE 126 mg/dL (75-110); POTASSIUM 3.7 mmol/L (3.6-5.0); SODIUM 134.6 mmol/L (137-145)
--- NOTE | 2017-11-25 15:27 | PDOC DISCHARGE SUMMARY ---
General - Admit/Disc Date/PCP Admission Date/Primary Care Provider: 11/23/17 12:46 IAN MUÑOZ MD Discharge Date: 11/25/17 - Discharge Diagnosis (1) Clostridium difficile diarrhea Is this a current diagnosis for this admission?: Yes (2) Dehydration Is this a current diagnosis for this admission?: Yes - Additional Information Resuscitation Status: Full Code Home Medications: Aspirin [Aspirin 325 mg Tablet] 325 mg PO DAILY 10/11/17 Atorvastatin Calcium [Lipitor 40 mg Tablet] 40 mg PO QHS 10/11/17 Cyanocobalamin (Vitamin B-12) [Vitamin B-12 Inj 1000 Mcg/1 ml Vial] 1,000 mcg IM .MONTHLY 10/11/17 Cyclobenzaprine HCl [Flexeril 10 mg Tablet] 10 mg PO Q8HP PRN 10/11/17 Gabapentin [Neurontin 300 mg Capsule] 600 mg PO Q8 10/11/17 Hydroxychloroquine Sulfate [Plaquenil 200 mg Tablet] 200 mg PO Q12 10/11/17 Levothyroxine Sodium [Synthroid 0.1 mg Tablet] 0.1 mg PO QPM 10/11/17 Losartan/Hydrochlorothiazide [Losartan-Hctz 100-25 mg Tab] 1 tab PO DAILY Hydrocodone Bitartrate [Zohydro ER] 1 tab PO Q12 10/13/17 Hydrocodone/Acetaminophen [Hydrocodone-Acetamin 10-325 mg] 1 tab PO Q6HP PRN 11/25 Apixaban [Eliquis 5 mg Tablet] 5 mg PO BID 11/21/17 Clopidogrel Bisulfate [Plavix 75 mg Tablet] 75 mg PO DAILY 11/21/17 Furosemide [Lasix 40 mg Tablet] 40 mg PO QAM 11/21/17 Promethazine HCl [Phenergan 25 mg Tablet] 1 tab PO Q6HP PRN 11/21/17 Metronidazole [Flagyl 500 mg Tablet] 500 mg PO Q8 #30 tablet 11/22/17 History of Present Illness Patient complains of: Diarrhea and vomiting History of Present Illness: VALENTE MUNOZ is a 62 year old female.She was just discharged from the hospital 24 hours ago when she was admitted for diarrhea and vomiting she was diagnosed with clostridium difficile colitis, she was treated with Flagyl and she was discharged home. She came to the office today with complaint of profuse diarrhea not able to keep any food down she feels dehydrated. She has had multiple hospital admission for GI related symptoms. She feels that she was getting dehydrated because she is not able to drink and she is losing fluid due to frequent diarrhea. The last time she was admitted to the hospital when she had C. difficile colitis diagnosed she did not have any profuse diarrhea for 24 hours she was then discharged home on p.o. Flagyl but she said since she got home she developed profuse diarrhea and vomiting.It seems that we have to make provision for this patient to receive IV fluid at home because she has had many admission on the basis of vomiting she may need a prokinetic drug like metoclopramide but we cannot initiate the medication with ongoing diarrhea that may exacerbate the diarrhea Hospital Course Hospital Course: Patient was treated with IV fluid support, antiemetic and IV Metronidazole. Her nasuae and vomiting did resolved and her diarrhea improved. She has been able to tolerate oral feeding. No abdominal pain. She is currently on oral Metronidazole 500mg po tid. She is agreeable to discharge home today. She will remain on oral Metronidazole 500 mg po tid x 10 days. She will follow up with Dr Muñoz as instructed upon discharge. Physical Exam Vital Signs: Temp Pulse Resp BP Pulse Ox 98.3 F 79 20 146/60 H 98 11/25/17 11:37 11/25/17 11:37 11/25/17 11:37 11/25/17 11:37 11/25/17 11:37 Intake & Output 11/24/17 11/25/17 11/26/17 06:59 06:59 06:59 Intake Total 300 850 Balance 300 850 Weight 88.995 kg Physical Exam: General appearance: PRESENT: no acute distress, well-developed, well-nourished Head exam: PRESENT: atraumatic, normocephalic Eye exam: PRESENT: conjunctiva pink, EOMI, PERRLA. ABSENT: scleral icterus Mouth exam: PRESENT: moist Respiratory exam: PRESENT: clear to auscultation martínez Cardiovascular exam: PRESENT: RRR. ABSENT: diastolic murmur, rubs, systolic murmur Vascular exam: PRESENT: normal capillary refill. ABSENT: pallor GI/Abdominal exam: PRESENT: normal bowel sounds, soft. ABSENT: distended, guarding, mass, organomegaly, rebound, tenderness Extremities exam: ABSENT: pedal edema Musculoskeletal exam: PRESENT: normal inspection Neurological exam: PRESENT: alert, awake, oriented to person, oriented to place , oriented to time, oriented to situation, CN II-XII grossly intact. ABSENT: motor sensory deficit Psychiatric exam: PRESENT: appropriate affect, normal mood. ABSENT: homicidal ideation, suicidal ideation Skin exam: PRESENT: dry, intact, warm. ABSENT: cyanosis, rash Results Laboratory Results: 11/25/17 14:00 11/25/17 14:00 11/25/17 11/25/17 14:00 14:00 WBC 7.3 RBC 4.87 Hgb 12.9 Hct 37.8 MCV 78 L MCH 26.5 L MCHC 34.0 RDW 15.2 H Plt Count 300 Seg Neutrophils % 74.8 Lymphocytes % 18.7 Monocytes % 5.3 Eosinophils % 0.8 Basophils % 0.4 Absolute Neutrophils 5.4 Absolute Lymphocytes 1.4 Absolute Monocytes 0.4 Absolute Eosinophils 0.1 Absolute Basophils 0.0 Sodium 134.6 L Potassium 3.7 Chloride 105 Carbon Dioxide 19 L Anion Gap 11 BUN 7 Creatinine 0.77 Est GFR ( Amer) > 60 Est GFR (Non-Af Amer) > 60 Glucose 126 H Calcium 9.2 Qualifiers - * PATEINT BEING DISCHARGED WITH ANY OF THE FOLLOWING DIAGNOSIS?: No Plan Discharge Plan: D/C Home today. Follow up with Dr Muñoz as instructed upon discharge. Time Spent: Less than 30 Minutes
[2017-11-25 15:49] VITALS: BP 148/74
== END 2017-11-25 16:58 | disposition home or self-care (01) ==
LOC: 2S 12:46
PROVIDERS: ADMIT Internal Medicine; ATTEND Internal Medicine
DX: A04.72 Enterocolitis due to Clostridium difficile, not specified as recurrent (principal); E86.0 Dehydration; M32.9 Systemic lupus erythematosus, unspecified; I25.10 Atherosclerotic heart disease of native coronary artery without angina pectoris; I10 Essential (primary) hypertension; E78.5 Hyperlipidemia, unspecified; E03.9 Hypothyroidism, unspecified; Z85.41 Personal history of malignant neoplasm of cervix uteri; Z85.43 Personal history of malignant neoplasm of ovary; Z98.890 Other specified postprocedural states; Z90.49 Acquired absence of other specified parts of digestive tract; Z90.710 Acquired absence of both cervix and uterus; Z79.899 Other long term (current) drug therapy; Z95.5 Presence of coronary angioplasty implant and graft; Z79.82 Long term (current) use of aspirin; Z79.02 Long term (current) use of antithrombotics/antiplatelets
CPT/HCPCS: 36415 ×2; 84439; 84443; 85025 ×2; 80048 ×2; J3010 ×4; J2405 ×3; A9270 ×2; J7030 ×2; J1642

== ENCOUNTER 2017-12-24 18:02 | Inpatient (IN) | payer MEDICARE, OTHER ==
[2017-12-24] MEDS ORDERED: NORMAL SALINE 1000 ML 1,000 ML IV PRN (18:40)
[2017-12-24 20:04] LABS: HEMATOCRIT 38.9 % (36.0-47.0); HEMOGLOBIN 13.3 g/dL (12.0-15.5); MEAN CORPUSCULAR HEMOGLOBIN 26.8 pg (27.0-33.4); MEAN CORPUSCULAR HGB CONC 34.3 g/dL (32.0-36.0); MEAN CORPUSCULAR VOLUME 78 fl (80-97); PLATELET COUNT 348 10^3/uL (150-450); RED BLOOD COUNT 4.97 10^6/uL (3.72-5.28); RED CELL DISTRIBUTION WIDTH 15.3 % (11.5-14.0); WHITE BLOOD COUNT 10.2 10^3/uL (4.0-10.5)
[2017-12-24 20:27] LABS: ALANINE AMINOTRANSFERASE 28 U/L (9-52); ALBUMIN 3.8 g/dL (3.5-5.0); ALKALINE PHOSPHATASE 105 U/L (38-126); ANION GAP 14 (5-19); ASPARTATE AMINO TRANSFERASE 16 U/L (14-36); BILIRUBIN,DIRECT 0.2 mg/dL (0.0-0.4); BILIRUBIN,TOTAL 0.3 mg/dL (0.2-1.3); BLOOD UREA NITROGEN 10 mg/dL (7-20); CALCIUM 9.2 mg/dL (8.4-10.2); CARBON DIOXIDE 24 mmol/L (22-30); CHLORIDE 95 mmol/L (98-107); GLUCOSE 76 mg/dL (75-110); SODIUM 133.3 mmol/L (137-145); TOTAL PROTEIN 6.1 g/dL (6.3-8.2)
[2017-12-24 20:34] LABS: POTASSIUM 2.8 mmol/L (3.6-5.0)
[2017-12-24 20:41] LABS: FREE T4 (FREE THYROXINE) 1.52 ng/dL (0.78-2.19)
[2017-12-24 20:55] LABS: THYROID STIMULATING HORMONE 0.95 uIU/mL (0.47-4.68)
--- NOTE | 2017-12-24 21:47 | RADIOLOGY REPORT (SQ) ---
EXAM DESCRIPTION: KUB/ABDOMEN (SINGLE VIEW) COMPLETED DATE/TIME: 12/24/2017 9:23 pm REASON FOR STUDY: Dehydration and persistent diarrhea E86.0 DEHYDRATION R19.7 DIARRHEA, UNSPECIFIE D COMPARISON: None. NUMBER OF VIEWS: One view. TECHNIQUE: Supine radiographic image of the abdomen acquired. LIMITATIONS: None. FINDINGS: BOWEL GAS PATTERN: There is a paucity of bowel gas. CALCIFICATIONS: No suspicious calcifications. SOFT TISSUES: No gross mass or suggestion of organomegaly. HARDWARE: Neural stimulator. Hardware in the spine. Skin pat over the pelvis. BONES: No acute fracture. No worrisome bone lesions. OTHER: No other significant finding. IMPRESSION: Nonspecific abdomen. TECHNICAL DOCUMENTATION: JOB ID: [id number] [employer]- All Rights Reserved Reading location - IP/workstation name: [email or web address]
[2017-12-24] MEDS: POTASSIUM CHLORIDE 10 MEQ TABLET.SA PO SCH (21:51)
[2017-12-24] MEDS: HYDROMORPHONE HCL INJ/PF 2 MG/ML AMPULE IV PRN (21:52)
[2017-12-24] MEDS: PROMETHAZINE HCL INJ 25 MG/1 ML VIAL IV PRN (21:52)
[2017-12-24 23:58] LABS: APPEARANCE,URINE SLIGHTLY-CLOUDY; BILIRUBIN,URINE NEGATIVE (NEGATIVE); COLOR,URINE YELLOW; GLUCOSE, URINE NEGATIVE (NEGATIVE); KETONES,URINE NEGATIVE (NEGATIVE); LEUKOCYTE ESTERASE,URINE LARGE (NEGATIVE); NITRITE,URINE POSITIVE (NEGATIVE); PROTEIN,URINE NEGATIVE (NEGATIVE); URINE SPECIFIC GRAVITY 1.005; UROBILINOGEN,URINE NEGATIVE mg/dL (<2.0)
[2017-12-25] MEDS: POTASSIUM CHLORIDE 10 MEQ TABLET.SA PO SCH ×2 (01:14→05:57)
[2017-12-25] MEDS: PROMETHAZINE HCL INJ 25 MG/1 ML VIAL IV PRN ×3 (05:57→20:20)
[2017-12-25] MEDS: HYDROMORPHONE HCL INJ/PF 2 MG/ML AMPULE IV PRN ×3 (05:57→20:20)
--- NOTE | 2017-12-25 08:11 | Physician Advisory Note ---
Physician Advisor ProgressNote .: Pursuant to the plan for Yesy Gatica, I have reviewed the medical record for this patient. Physician Advisor Statement: Please consider documenting, if you agree: 1. "acute diarrhea/weakness, suspect due to ____, with associated intravascular volume depletion" 2. "Acute hyponatremia due to " [intravascular volume depletion?] 3. "chronic diastolic CHF with mild pulmonary HTN" [per ECHO 2015] 4. ? "chronic opioid dependence due to chronic ____ pain" 5. "SLE" 6. Medical necessity: please explicitly document reason(s) pt needed hospitalization 4/16 PM, as well as reason(s) she continues to need hospital care/monitoring 4 PM. Status: Medicare pt, appropriately brought in as Observation for nonspecific sx initially. If she is not safe for d/c today, please consider changing to Inpatient status with documentation of reasons ["persistent N/V, unable to tolerate adequate po intake", "continued need for IVF at careful rate given underlying CHF, with close monitoring of fluid status & lytes", "continued significant acute hyponatremia/hypokalemia", ... Thanks! CK
[2017-12-25] MEDS ORDERED: PROMETHAZINE HCL INJ 25 MG/1 ML VIAL ONE (14:12)
[2017-12-25] MEDS ORDERED: CYCLOBENZAPRINE HCL 10 MG TABLET PO PRN (14:15)
[2017-12-25] MEDS ORDERED: DEXTROSE 50%-WATER 25 GM/50 ML DISP.SYRIN IV PRN ×2 (20:29)
[2017-12-25] MEDS ORDERED: GLUCAGON,HUMAN RECOMB 1 MG INJ SUBCUT PRN (20:29)
[2017-12-25] MEDS ORDERED: DEXTROSE 40% GEL 15 GM TUBE PO PRN ×2 (20:29)
[2017-12-25] MEDS ORDERED: CLINDAMYCIN 600 MG/D5W RTU 600 MG/50 ML RTUPB IV PRN (20:42)
--- NOTE | 2017-12-25 20:42 | PDOC CONSULTATION ---
Consultation Consult Date: 12/25/17 Consult reason:: portacath replacement History of Present Illness Admission Date/PCP: 12/24/17 18:02 IAN MUÑOZ MD History of Present Illness: VALENTE MUNOZ is a 62 year old female with a right upper chest portacath x 20 years, initially placed because of the need of chemotherapy for cancer. Subsequently, the patient wished to keep the portacath because of poor peripheral access. I have been requeste to replace the portacath as it is not functional anymore. Past Medical History Cardiac Medical History: Reports: Congestive Heart Failure, Coronary Artery Disease, DVT, Myocardial Infarction, Hyperlipidema, Hypertension, Pulmonary Embolism Denies: Atrial Fibrillation, Peripheral Vascular Disease, Heart Murmur Pulmonary Medical History: Reports: Bronchitis, Chronic Obstructive Pulmonary Disease (COPD) Denies: Asthma, Pneumonia, Respiratory Failure, Sleep Apnea, Tuberculosis Neurological Medical History: Denies: Seizures Endocrine Medical History: Reports: Hypothyroidism Denies: Hyperthyroidism Renal/ Medical History: Denies: End Stage Renal Disease Malignancy Medical History: Reports: Cervical Cancer, Ovarian Cancer Denies: Breast Cancer, Leukemia, Lung Cancer GI Medical History: Reports: Gastroesophageal Reflux Disease, Hiatal Hernia - Repaired Denies: Cirrhosis, Crohn's Disease, Hepatitis Musculoskeltal Medical History: Reports: Arthritis - Lupus, Fibromyalgia - Lupus Psychiatric Medical History: Reports: Depression Denies: Bipolar Disorder, Dementia, Post Traumatic Stress Disorder Hematology: Reports: Anemia - HX OF LOW NA AND K,LOW IRON WILL HAVE IRON TRANS FUSION 05/04. Denies: Hemophilia, Sickle Cell Disease, Bleeding Tendencies Infectious Medical History: Reports: Clostridium Difficile - Was negative in October2015. Not yet successfully collected stool Denies: HIV Past Surgical History Past Surgical History: Reports: Appendectomy, Cardiac Catheterization, Section, Cholecystectomy, Coronary Stent - 3 stents, Herniorrhaphy, Hysterectomy , Orthopedic Surgery - Right knee, bilateral knee replacements and hip replacement metal plate in, Tonsillectomy Denies: Amputation, Colostomy, Coronary Artery Bypass Graft, Gastric Bypass Surgery, Mastectomy, Pacemaker, Tubal Ligation Social History Smoking Status: Former Smoker Frequency of Alcohol Use: Rare Hx Recreational Drug Use: No Drugs: None Hx Prescription Drug Abuse: No Family History Family History: Arthritis, COPD, Hyperlipidemia, Hypertension, Malignancy, Thyroid Disfunction Parental Family History Reviewed: No Children Family History Reviewed: No Sibling(s) Family History Reviewed.: No Medication/Allergy Home Medications: Aspirin [Aspirin 325 mg Tablet] 325 mg PO DAILY 10/11/17 Atorvastatin Calcium [Lipitor 40 mg Tablet] 40 mg PO QHS 10/11/17 Cyclobenzaprine HCl [Flexeril 10 mg Tablet] 10 mg PO Q8HP PRN 10/11/17 Gabapentin [Neurontin 300 mg Capsule] 600 mg PO Q8 10/11/17 Hydroxychloroquine Sulfate [Plaquenil 200 mg Tablet] 200 mg PO Q12 10/11/17 Levothyroxine Sodium [Synthroid 0.1 mg Tablet] 0.1 mg PO Q6AM 10/11/17 Losartan/Hydrochlorothiazide [Losartan-Hctz 100-25 mg Tab] 1 tab PO DAILY Hydrocodone Bitartrate [Zohydro ER] 40 mg PO Q12 10/13/17 Apixaban [Eliquis 5 mg Tablet] 5 mg PO Q12 11/21/17 Clopidogrel Bisulfate [Plavix 75 mg Tablet] 75 mg PO DAILY 11/21/17 Furosemide [Lasix 40 mg Tablet] 40 mg PO QAM 11/21/17 Promethazine HCl [Phenergan 25 mg Tablet] 25 mg PO Q6HP PRN 18 Hydrocodone Bit/Acetaminophen [Hydrocodon-Acetaminophn 10-325] 1 tab PO Q6HP PRN 12/24/17 Zaleplon [Sonata] 10 mg PO QHS 18 Allergies/Adverse Reactions: irbesartan [From Avapro] Allergy (Severe, Verified 05/03/17 09:31) swelling of face nitrofurantoin macrocrystalline [From Macrobid] Allergy (Severe, Verified 09:31) Generalized edema Penicillins Allergy (Severe, Verified 05/03/17 09:31) eyes swelled pregabalin [From Lyrica] Allergy (Severe, Verified 05/03/17 09:31) Equilibrium Issues venom-honey bee [bee venom (honey bee)] Allergy (Verified 05/03/17 09:31) Anaphylaxis Physical Exam Vital Signs: Temp Pulse Resp BP Pulse Ox 98.1 F 84 16 106/62 99 12/25/17 04:00 12/25/17 19:00 12/25/17 04:00 12/25/17 04:00 12/25/17 04:00 Intake & Output 12/24/17 12/25/17 12/26/17 06:59 06:59 06:59 Intake Total 600 952 Output Total 1050 750 Balance -450 202 Weight 85.2 kg 85.2 kg General appearance: PRESENT: no acute distress Head exam: PRESENT: atraumatic Eye exam: PRESENT: EOMI Neck exam: PRESENT: full ROM Respiratory exam: PRESENT: clear to auscultation martínez, other - right upper chest portacath Cardiovascular exam: PRESENT: RRR GI/Abdominal exam: PRESENT: soft Results Laboratory Results: 12/24/17 19:57 12/24/17 19:57 12/24/17 12/24/17 12/24/17 19:57 19:57 23:35 Sodium 133.3 L Potassium 2.8 L* Chloride 95 L Carbon Dioxide 24 Anion Gap 14 BUN 10 Creatinine 0.99 Est GFR ( Amer) > 60 Est GFR (Non-Af Amer) 56 L Glucose 76 Calcium 9.2 Total Bilirubin 0.3 AST 16 ALT 28 Alkaline Phosphatase 105 Total Protein 6.1 L Albumin 3.8 TSH 0.95 Free T4 1.52 Urine Color YELLOW Urine Appearance SLIGHTLY-CLOUDY Urine pH 6.0 Ur Specific [place] 1.005 Urine Protein NEGATIVE Urine Glucose (UA) NEGATIVE Urine Ketones NEGATIVE Urine Blood SMALL H Urine Nitrite POSITIVE H Ur Leukocyte Esterase LARGE H Urine WBC (Auto) 157 Urine RBC (Auto) 5 Impressions: KUB X-Ray 12/24/17 00:00 IMPRESSION: Nonspecific abdomen. Assessment & Plan - Diagnosis (1) portacath Is this a current diagnosis for this admission?: Yes - Plan Summary Plan Summary: A/ Malfunctioning 18 y/o portacath Patient off E;liquis P/ Place new portacath and removal of old one. Procedure, risks, benefits explained to the patient, she understands and decides to proceed tomorrow. Clindamycin 600 mg IVPB preop
[2017-12-25 21:31] LABS: ANION GAP 12 (5-19); BLOOD UREA NITROGEN 12 mg/dL (7-20); CALCIUM 8.7 mg/dL (8.4-10.2); CARBON DIOXIDE 23 mmol/L (22-30); CHLORIDE 100 mmol/L (98-107); GLUCOSE 95 mg/dL (75-110); POTASSIUM 4.4 mmol/L (3.6-5.0); SODIUM 134.8 mmol/L (137-145)
--- NOTE | 2017-12-25 21:53 | PDOC H&P ---
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 The comprehensive metabolic panel showed hypokalemia from GI losses Past Medical History Cardiac Medical History: Reports: Congestive Heart Failure, Coronary Artery Disease, DVT, Myocardial Infarction, Hyperlipidema, Hypertension, Pulmonary Embolism Pulmonary Medical History: Reports: Bronchitis, Chronic Obstructive Pulmonary Disease (COPD) Endocrine Medical History: Reports: Hypothyroidism Malignancy Medical History: Reports: Cervical Cancer, Ovarian Cancer GI Medical History: Reports: Gastroesophageal Reflux Disease, Hiatal Hernia - Repaired Musculoskeltal Medical History: Reports: Arthritis - Lupus, Fibromyalgia - Lupus Psychiatric Medical History: Reports: Depression Hematology: Reports: Anemia - HX OF LOW NA AND K,LOW IRON WILL HAVE IRON TRANS FUSION 05/04. Infectious Medical History: Reports: Clostridium Difficile - Was negative in October2015. Not yet successfully collected stool, Vancomycin-Resistant Enterococci Past Surgical History Past Surgical History: Reports: Appendectomy, Cardiac Catheterization, Section, Cholecystectomy, Coronary Stent - 3 stents, Herniorrhaphy, Hysterectomy , Orthopedic Surgery - Right knee, bilateral knee replacements and hip replacement metal plate in, Tonsillectomy Social History Smoking Status: Former Smoker Frequency of Alcohol Use: Rare Hx Recreational Drug Use: No Drugs: None Hx Prescription Drug Abuse: No Family History Family History: Arthritis, COPD, Hyperlipidemia, Hypertension, Malignancy, Thyroid Disfunction Parental Family History Reviewed: Yes Children Family History Reviewed: Yes Sibling(s) Family History Reviewed.: Yes Medication/Allergy Home Medications: Aspirin [Aspirin 325 mg Tablet] 325 mg PO DAILY 10/11/17 Atorvastatin Calcium [Lipitor 40 mg Tablet] 40 mg PO QHS 10/11/17 Cyclobenzaprine HCl [Flexeril 10 mg Tablet] 10 mg PO Q8HP PRN 10/11/17 Gabapentin [Neurontin 300 mg Capsule] 600 mg PO Q8 10/11/17 Hydroxychloroquine Sulfate [Plaquenil 200 mg Tablet] 200 mg PO Q12 10/11/17 Levothyroxine Sodium [Synthroid 0.1 mg Tablet] 0.1 mg PO Q6AM 10/11/17 Losartan/Hydrochlorothiazide [Losartan-Hctz 100-25 mg Tab] 1 tab PO DAILY Hydrocodone Bitartrate [Zohydro ER] 40 mg PO Q12 10/13/17 Apixaban [Eliquis 5 mg Tablet] 5 mg PO Q12 11/21/17 Clopidogrel Bisulfate [Plavix 75 mg Tablet] 75 mg PO DAILY 11/21/17 Furosemide [Lasix 40 mg Tablet] 40 mg PO QAM 11/21/17 Promethazine HCl [Phenergan 25 mg Tablet] 25 mg PO Q6HP PRN 11/21/17 Hydrocodone Bit/Acetaminophen [Hydrocodon-Acetaminophn 10-325] 1 tab PO Q6HP PRN 12/24/17 Zaleplon [Sonata] 10 mg PO QHS 12/24/17 Allergies/Adverse Reactions: irbesartan [From Avapro] Allergy (Severe, Verified 05/03/17 09:31) swelling of face nitrofurantoin macrocrystalline [From Macrobid] Allergy (Severe, Verified 09:31) Generalized edema Penicillins Allergy (Severe, Verified 05/03/17 09:31) eyes swelled pregabalin [From Lyrica] Allergy (Severe, Verified 05/03/17 09:31) Equilibrium Issues venom-honey bee [bee venom (honey bee)] Allergy (Verified 05/03/17 09:31) Anaphylaxis Review of Systems Constitutional: PRESENT: anorexia Eyes: ABSENT: visual disturbances Ears: ABSENT: hearing changes Cardiovascular: ABSENT: as per HPI, chest pain, dyspnea on exertion, edema, orthropnea, palpitations, other Respiratory: ABSENT: cough, hemoptysis Gastrointestinal: PRESENT: diarrhea, vomiting Genitourinary: ABSENT: dysuria, hematuria Musculoskeletal: ABSENT: joint swelling Integumentary: ABSENT: rash, wounds Neurological: ABSENT: abnormal gait, abnormal speech, confusion, dizziness, focal weakness, syncope Psychiatric: ABSENT: anxiety, depression, homidical ideation, suicidal ideation Endocrine: ABSENT: cold intolerance, heat intolerance, menstrual abnormalities, polydipsia, polyuria Hematologic/Lymphatic: ABSENT: easy bleeding, easy bruising, lymphadenopathy Physical Exam Vital Signs: Temp Pulse Resp BP Pulse Ox 98.1 F 84 16 106/62 99 12/25/17 04:00 12/25/17 19:00 12/25/17 04:00 12/25/17 04:00 12/25/17 04:00 Intake & Output 12/24/17 12/25/17 12/26/17 06:59 06:59 06:59 Intake Total 600 952 Output Total 1050 750 Balance -450 202 Weight 85.2 kg 85.2 kg General appearance: PRESENT: cooperative Head exam: PRESENT: atraumatic, normocephalic Eye exam: PRESENT: PERRLA Ear exam: PRESENT: normal external ear exam Mouth exam: PRESENT: dry mucosa Neck exam: PRESENT: full ROM Respiratory exam: PRESENT: clear to auscultation martínez Cardiovascular exam: PRESENT: RRR, +S1, +S2 Pulses: PRESENT: normal dorsalis pedis pul, +2 pedal pulses bilateral Vascular exam: PRESENT: normal capillary refill GI/Abdominal exam: PRESENT: normal bowel sounds, soft Rectal exam: PRESENT: deferred Neurological exam: PRESENT: alert, awake, oriented to person, oriented to place , oriented to time, oriented to situation, CN II-XII grossly intact. ABSENT: motor sensory deficit Psychiatric exam: PRESENT: appropriate affect, normal mood Skin exam: PRESENT: dry, intact, warm Results Laboratory Results: 12/24/17 19:57 12/25/17 20:55 12/24/17 12/25/17 23:35 20:55 Sodium 134.8 L Potassium 4.4 Chloride 100 Carbon Dioxide 23 Anion Gap 12 BUN 12 Creatinine 1.06 Est GFR ( Amer) > 60 Est GFR (Non-Af Amer) 52 L Glucose 95 Calcium 8.7 Urine Color YELLOW Urine Appearance SLIGHTLY-CLOUDY Urine pH 6.0 Ur Specific [place] 1.005 Urine Protein NEGATIVE Urine Glucose (UA) NEGATIVE Urine Ketones NEGATIVE Urine Blood SMALL H Urine Nitrite POSITIVE H Ur Leukocyte Esterase LARGE H Urine WBC (Auto) 157 Urine RBC (Auto) 5 Impressions: KUB X-Ray 12/24/17 00:00 IMPRESSION: Nonspecific abdomen. Assessment & Plan - Diagnosis (1) Gastroenteritis Is this a current diagnosis for this admission?: Yes (2) Hypokalemia Is this a current diagnosis for this admission?: Yes Plan: replace potassium (3) Systemic lupus erythematosus Qualifiers: Systemic lupus erythematosus type: unspecified Systemic lupus erythematosus organ involvement: unspecified Qualified Code(s): M32.9 - Systemic lupus erythematosus, unspecified Is this a current diagnosis for this admission?: Yes (4) Dehydration Is this a current diagnosis for this admission?: Yes Plan: hydrate patient with fluid
--- NOTE | 2017-12-25 21:56 | PDOC PROGRESS REPORT ---
Subjective Progress Note for:: 12/25/17 Subjective:: She was admitted for the management of dehydration, hypokalemia due to prolonged gastroenteritis. The indwelling Port-A-Cath is not functioning, consultation will be obtained from surgery for placement of a new one Reason For Visit: DEHYDRATION Physical Exam Vital Signs: Temp Pulse Resp BP Pulse Ox 98.1 F 84 16 106/62 99 12/25/17 04:00 12/25/17 19:00 12/25/17 04:00 12/25/17 04:00 12/25/17 04:00 Intake & Output 12/24/17 12/25/17 12/26/17 06:59 06:59 06:59 Intake Total 600 952 Output Total 1050 750 Balance -450 202 Weight 85.2 kg 85.2 kg General appearance: PRESENT: no acute distress Eye exam: PRESENT: PERRLA Respiratory exam: PRESENT: clear to auscultation martínez Cardiovascular exam: PRESENT: +S1, +S2 GI/Abdominal exam: PRESENT: soft Neurological exam: PRESENT: alert Results Laboratory Results: 12/24/17 19:57 12/25/17 20:55 12/24/17 12/25/17 23:35 20:55 Sodium 134.8 L Potassium 4.4 Chloride 100 Carbon Dioxide 23 Anion Gap 12 BUN 12 Creatinine 1.06 Est GFR ( Amer) > 60 Est GFR (Non-Af Amer) 52 L Glucose 95 Calcium 8.7 Urine Color YELLOW Urine Appearance SLIGHTLY-CLOUDY Urine pH 6.0 Ur Specific [place] 1.005 Urine Protein NEGATIVE Urine Glucose (UA) NEGATIVE Urine Ketones NEGATIVE Urine Blood SMALL H Urine Nitrite POSITIVE H Ur Leukocyte Esterase LARGE H Urine WBC (Auto) 157 Urine RBC (Auto) 5 Impressions: KUB X-Ray 12/24/17 00:00 IMPRESSION: Nonspecific abdomen. Assessment & Plan - Diagnosis (1) Gastroenteritis Is this a current diagnosis for this admission?: Yes (2) Hypokalemia Is this a current diagnosis for this admission?: Yes (3) Systemic lupus erythematosus Qualifiers: Systemic lupus erythematosus type: unspecified Systemic lupus erythematosus organ involvement: unspecified Qualified Code(s): M32.9 - Systemic lupus erythematosus, unspecified Is this a current diagnosis for this admission?: Yes (4) Dehydration Is this a current diagnosis for this admission?: Yes
[2017-12-25] MEDS: HYDROXYCHLOROQUINE SULFATE 200 MG TABLET PO SCH (21:57)
[2017-12-25] MEDS ORDERED: HYDROCODONE BITARTRATE 40 MG PO SCH (22:00)
[2017-12-25] MEDS ORDERED: (PENDING PHARMACY ID) (Zaleplon [Sonata] 10 MG) PO SCH (22:00)
[2017-12-25] MEDS ORDERED: APIXABAN 5 MG TABLET PO SCH (22:00)
[2017-12-25] MEDS: GABAPENTIN 300 MG CAPSULE PO SCH (22:01)
[2017-12-25] MEDS: ATORVASTATIN CALCIUM 40 MG TABLET PO SCH (22:01)
[2017-12-26] MEDS: HYDROMORPHONE HCL INJ/PF 2 MG/ML AMPULE IV PRN ×4 (02:17→20:31)
[2017-12-26] MEDS: PROMETHAZINE HCL INJ 25 MG/1 ML VIAL IV PRN ×4 (02:17→20:31)
[2017-12-26] MEDS: GABAPENTIN 300 MG CAPSULE PO SCH ×3 (06:01→22:35)
[2017-12-26] MEDS: LEVOTHYROXINE SODIUM 0.1 MG TABLET PO SCH (06:02)
[2017-12-26] MEDS ORDERED: PROPOFOL INJ 200 MG/20 ML VIAL IV ONE ×2 (08:59→12:44)
[2017-12-26] MEDS ORDERED: ONDANSETRON HCL INJ/PF 4 MG/2 ML SDV ONE (08:59)
[2017-12-26] MEDS ORDERED: KETAMINE HCL INJ 500 MG/10 ML VIAL ONE (08:59)
[2017-12-26] MEDS ORDERED: MIDAZOLAM 2 MG/2 ML INJ ONE (08:59)
[2017-12-26] MEDS ORDERED: FENTANYL CITRATE INJ/PF 100 MCG/2 ML AMPUL ONE (08:59)
[2017-12-26] MEDS ORDERED: CLINDAMYCIN 600 MG/D5W RTU 600 MG/50 ML RTUPB IV ONE (09:24)
[2017-12-26] MEDS ORDERED: LIDOCAINE 1%/EPINEPHRINE INJ 20 ML VIAL ONE ×2 (09:58→11:06)
[2017-12-26] MEDS ORDERED: (PENDING PHARMACY ID) (Losartan/Hydrochlorothiazide [Losartan-Hctz 100-25 Mg Tab] 1 TAB) PO SCH (10:00)
[2017-12-26] MEDS ORDERED: FENTANYL CITRATE INJ/PF 100 MCG/2 ML AMPUL IV PRN ×3 (10:24)
[2017-12-26] MEDS ORDERED: DIPHENHYDRAMINE HCL 50 MG/ML VIAL IV PRN (10:24)
[2017-12-26] MEDS ORDERED: LIDOCAINE 0.5%/EPINEPHRINE INJ 50 ML VIAL ONE (11:07)
--- NOTE | 2017-12-26 13:10 | RADIOLOGY REPORT (SQ) ---
EXAM DESCRIPTION: CHEST SINGLE VIEW COMPLETED DATE/TIME: 12/26/2017 12:51 pm REASON FOR STUDY: port a cath COMPARISON: 10/11/2017 EXAM PARAMETERS: NUMBER OF VIEWS: One view. TECHNIQUE: Single frontal radiographic view of the chest acquired. RADIATION DOSE: NA LIMITATIONS: None. FINDINGS: LUNGS AND PLEURA: No opacities, masses or pneumothorax. No pleural effusion. MEDIASTINUM AND HILAR STRUCTURES: No masses. Contour normal. HEART AND VASCULAR STRUCTURES: Heart normal in size. Normal vasculature. BONES: No acute findings. HARDWARE: A new right-sided Port-A-Cath has been inserted with its tip at the level of the superior v irina cava. The Port-A-Cath loops superiorly in the right cervical region and a portion of the Port-A- Cath is not included on the image obtained. There is a remnant of original Port-A-Cath on the right present with its tip at the level of the superior vena cava. OTHER: No other significant finding. IMPRESSION: New Port-A-Cath insertion as noted above. No pneumothorax is seen. Other findings as n oted above. TECHNICAL DOCUMENTATION: JOB ID: [id number] [employer]- All Rights Reserved Reading location - IP/workstation name: [email or web address]
[2017-12-26] MEDS: FUROSEMIDE 40 MG TABLET PO SCH (13:28)
[2017-12-26] MEDS: ASPIRIN 325 MG TABLET PO SCH (13:28)
[2017-12-26] MEDS: HYDROCHLOROTHIAZIDE 25 MG TABLET PO SCH (13:29)
[2017-12-26] MEDS: LOSARTAN POTASSIUM 50 MG TABLET PO SCH (13:30)
[2017-12-26] MEDS: CLOPIDOGREL BISULFATE 75 MG TABLET PO SCH (13:31)
--- NOTE | 2017-12-26 15:14 | RADIOLOGY REPORT (SQ) ---
EXAM DESCRIPTION: FLUORO/CV PLACEMENT COMPLETED DATE/TIME: 12/26/2017 1:28 pm REASON FOR STUDY: PORTACATH PLCMT RT SIDE ASST WITH FLUORO IN OR E86.0 DEHYDRATION R19.7 DIARRHEA, UNSPECIFIED COMPARISON: None. FLUOROSCOPY TIME: 5.2 minute 5 images saved to PACS. TECHNIQUE: Intra-operative images acquired during surgical procedure to evaluate progress. NUMBER OF IMAGES: 5 image LIMITATIONS: None. FINDINGS: Fluoroscopic images were obtained during placement of a Port-A-Cath. Tip is identified at the level of the superior vena cava. Please refer to the surgeon's operative report for additional information IMPRESSION: IMAGE(S) OBTAINED DURING PROCEDURE. COMMENT: Quality ID [id number]: Final reports for procedures using fluoroscopy that document radiation exp osure indices, or exposure time and number of fluorographic images (if radiation exposure indices are not available) Please consult full operative report of the attending physician for description of the procedure. TECHNICAL DOCUMENTATION: JOB ID: [id number] [employer]- All Rights Reserved Reading location - IP/workstation name: [email or web address]
[2017-12-26] MEDS: HYDROXYCHLOROQUINE SULFATE 200 MG TABLET PO SCH ×2 (15:32→22:35)
--- NOTE | 2017-12-26 16:08 | OPERATIVE REPORT E ---
Operative Report NAME: VALENTE MUNOZ : 1955 AGE: 62Y DATE OF SURGERY: 12/26/2017 ROOM: 426 PREOPERATIVE DIAGNOSES: 1. MALFUNCTIONING RIGHT UPPER CHEST [id number]-M-[id number]. 2. NEED OF IV ACCESS. POSTOPERATIVE DIAGNOSES: 1. MALFUNCTIONING RIGHT UPPER CHEST IUVUT-M-RHGY. 2. NEED OF IV ACCESS. OPERATION: 1. Diagnostic fluoroscopy. 2. Diagnostic intraoperative ultrasound. 3. ATTEMPT OF PLACEMENT OF LEFT UPPER CHEST NDLNV-N-LXTF. 4. INSERTION OF RIGHT UPPER CHEST JYPUL-G-RSUS. 5. REMOVAL OF OLD RIGHT UPPER CHEST WDKAL-G-GNKV. SURGEON: CATRINA WOODS M.D. DOCUMENT CONTROL ASSOCIATE: Dr. Gomez was the medical administrative assistant during the first part of the procedure. COMPLICATIONS: None. ANESTHESIA: IV sedation plus a total of 50 mL 1% lidocaine with epinephrine. FLUIDS: 600 ESTIMATED BLOOD LOSS: Less than 10 mL INDICATION AND FINDINGS: This is a 62-year-old female in need of IV access because of multiple ulcerations. The patient is currently being hospitalized for nausea, vomiting, and bloody diarrhea, and the old right upper chest Jxdpt-W-Ydgp, which was inserted about 20 years ago, is currently nonfunctioning. The patient needs a peripheral IV inserted in the right breast. I am also requested to remove the old Uvrzc-I-Pwhl and insert a new one. The procedure benefits and complications explained to the patient. She agrees and decides to proceed. PROCEDURE: This was done in the operating room. The patient was placed supine and then in the Trendelenburg position. Both sides of the chest and neck were prepped and draped in the usual fashion. The left neck was approached first. With ultrasound, the right internal jugular vein was identified, and then cannulated first with a fine needle 31-gauge and then with a 16-gauge needle without difficulty. A guidewire was inserted through the needle under fluoroscopy, and it was noted that the wire stopped at the junction of the left internal jugular vein and left subclavian. A Glidewire was utilized for the same purpose and it could not be advanced passed the juncture of the left internal jugular vein and subclavian vein as well. Additional attempts were then made to re-access the left internal jugular vein, which could not be identified anymore. In addition, the left subclavian approach was attempted and this was not successful as well as the vein could not be identified. At this point, the attention was turned towards the right side of the chest. Ultrasound of the neck revealed a large internal jugular vein. This was easily approached with a 16-gauge needle and a guidewire was inserted with some difficulty because it stopped in the mid chest. This guidewire was removed and a Glidewire was inserted through the needle into the right IJ and superior vena cava without problems. The needle was then removed. The Glidewire was tagged to the patient's drapes and a right upper chest Hptzi-L-Zthj planned area was infiltrated with a local anesthetic. The skin pocket was developed with blunt and Bovie dissection. The Wrrif-C-Wrlf was inserted into the subcutaneous pocket and found to be satisfactory. It was then tagged to the pectoralis fascia with two 2-0 Prolene sutures which were left untied. The planned subcutaneous route of the Feuwi-W-Zoza catheter was marked with a surgical marker first, infiltrated with Marcaine, and using a tunneler, the catheter was placed subcutaneously from the new Fbqno-K-Xfsx subcutaneous pocket after the insertion point of the guidewire which was later enlarged with a #15 blade. The tunneler was then removed. The catheter was connected to the Qzdwu-Z-Qzvf and locked in place. The Npbms-C-Lrgi was then placed into the subcutaneous pocket and tied to the pectoralis fascia. When this was accomplished, under the aid of fluoroscopy, a tissue dilator and sheath were slowly advanced over the Glidewire into the right IJ and superior vena cava. This was done under fluoroscopy carefully; however, at the level of the mid chest, a resistance was met and with slow motion by advancing it gently; both the tissue dilator and introducer, were advanced. After this was accomplished, the guidewire and the tissue dilator were removed. The catheter was then inserted through the sheath for the entire length. The sheath was pulled out. A fluoroscopy was then obtained confirming good position of the catheter without kinking. The Iaztn-H-Mcaw was then accessed with a Boudreaux needle, aspirated and flushed multiple times with heparinized solution without difficulty and with good blood return. At this point, the insertion point of the guidewire was closed with subcutaneous 2-0 Vicryl suture. The new Zlvzq-A-Bgxy subcutaneous pocket was closed with inverted interrupted deep 3-0 Vicryl sutures and with 4-0 Vicryl running subcuticular suture with Dermabond applied. The new Pniev-L-Iufl was then accessed with a Boudreaux needle and then sterile Teqaderm was applied to the wound. The old Bhwgk-R-Qhhx was removed by infiltrating the skin with lidocaine, making a transverse incision, and dividing the subcutaneous fat with Bovie. The old Ndcpe-Z-Nhzs was then removed. This was an old dual port Vgcnx-Q-Uhyz. After the Uxcqx-Y-Uacs removal, the capsule was excised as well. Hemostasis was obtained with the Bovie and the skin was closed with interrupted deep inverted 3-0 Vicryl sutures and with 4-0 Vicryl running subcuticular suture with Dermabond applied. The patient tolerated the procedure well and advanced to the recovery room in satisfactory condition. A chest x-ray was then obtained confirming good position of the line. DICTATING PHYSICIAN: CATRINA WOODS M.D. [id number] PHY#: [id number] ID: [id number] JOB#: [id number] ACCT: [id number] cc:CATRINA WOODS M.D. > MTDD
--- NOTE | 2017-12-26 19:03 | RADIOLOGY REPORT (SQ) ---
EXAM DESCRIPTION: CTA NECK COMPLETED DATE/TIME: 12/26/2017 6:47 pm REASON FOR STUDY: suspect Stenosis of Great vessels of left neck E86.0 DEHYDRATION R19.7 DIARRHEA , UNSPECIFIED COMPARISON: None. TECHNIQUE: Axial dynamic scanning technique with dynamic contrast enhancement through the extra-craft worker nial carotid and vertebral arteries. Multiplanar reconstruction. 3-D MIPS and Volume-rendered imag es acquired at the workstation and saved to PACS. Images are reviewed in soft tissue, bone, lung w indows. All CT scanners at this facility use dose modulation, iterative reconstruction, and/or weight based d osing when appropriate to reduce radiation dose to as low as reasonably achievable (ALARA). [facility]: Dose Right [facility]: CareDose [facility]: Dose Right [facility]: Teradose 4D [facility]: Ark CONTRAST TYPE AND DOSE: contrast/concentration: Isovue 370.00 mg/ml; Total Contrast Delivered: 70.0 ml; Total Saline Delivered: 75.0 ml RENAL FUNCTION: BUN 12 creatinine 1.06 LIMITATIONS: None. FINDINGS: AORTIC ARCH: Normal three-vessel origin. Bilateral subclavian arteries are patent. No d issection. RIGHT CAROTIDS: Patent common, internal and external carotid arteries without suggestion of significa nt stenosis or irregular plaque. No dissection. RIGHT VERTEBRAL: Patent. No dissection. LEFT CAROTIDS: Patent common, internal, and external carotid arteries. There is moderate calcified p laque in the carotid bulb at the origin of the internal carotid suggesting approximately 50% stenosis at the origin of the internal carotid. LEFT VERTEBRAL: Patent. No dissection. OTHER: No other significant finding. OTHER: 3-D reconstructions confirm findings. IMPRESSION: There is approximately 50% stenosis of the proximal left internal carotid artery. COMMENT: Quality ID #[id number]: Measurements of distal internal carotid diameter were used as the denomina tor for stenosis measurement. TECHNICAL DOCUMENTATION: JOB ID: [id number] Quality ID # [id number]: Final reports with documentation of one or more dose reduction techniques (e.g., Au tomated exposure control, adjustment of the mA and/or kV according to patient size, use of iterative reconstruction technique) 2010 [employer]- All Rights Reserved Reading location - IP/workstation name: [email or web address]
[2017-12-26] MEDS: CIPROFLOXACIN 400 MG/D5W RTU 400 MG/200 ML RTUPB IV SCH (22:35)
[2017-12-26] MEDS: ATORVASTATIN CALCIUM 40 MG TABLET PO SCH (22:35)
[2017-12-27] MEDS: HYDROMORPHONE HCL INJ/PF 2 MG/ML AMPULE IV PRN ×4 (03:20→22:23)
[2017-12-27] MEDS: PROMETHAZINE HCL INJ 25 MG/1 ML VIAL IV PRN ×4 (03:20→22:23)
[2017-12-27] MEDS: NORMAL SALINE 1000 ML 1,000 ML IV PRN (05:34)
[2017-12-27] MEDS: LEVOTHYROXINE SODIUM 0.1 MG TABLET PO SCH (05:34)
[2017-12-27] MEDS: GABAPENTIN 300 MG CAPSULE PO SCH ×3 (05:34→22:09)
[2017-12-27] MEDS: FUROSEMIDE 40 MG TABLET PO SCH (08:06)
[2017-12-27] MEDS: ASPIRIN 325 MG TABLET PO SCH (10:13)
[2017-12-27] MEDS: HYDROCHLOROTHIAZIDE 25 MG TABLET PO SCH (10:13)
[2017-12-27] MEDS: CIPROFLOXACIN 400 MG/D5W RTU 400 MG/200 ML RTUPB IV SCH ×2 (10:13→22:10)
[2017-12-27] MEDS: LOSARTAN POTASSIUM 50 MG TABLET PO SCH (10:14)
[2017-12-27] MEDS: CLOPIDOGREL BISULFATE 75 MG TABLET PO SCH (10:14)
[2017-12-27] MEDS: HYDROXYCHLOROQUINE SULFATE 200 MG TABLET PO SCH (10:40)
--- NOTE | 2017-12-27 16:21 | PDOC PROGRESS REPORT ---
Subjective Progress Note for:: 12/27/17 Subjective:: no pains Reason For Visit: DEHYDRATION Physical Exam Vital Signs: Temp Pulse Resp BP Pulse Ox 97.6 F 87 16 133/85 H 99 12/27/17 12:00 12/27/17 14:00 12/27/17 12:00 12/27/17 12:00 12/27/17 12:00 Intake & Output 12/26/17 12/27/17 12/28/17 06:59 06:59 06:59 Intake Total 1312 2666 Output Total 1450 5425 Balance -138 -2759 Weight 85.2 kg Exam: darin-cath fxning well Results Laboratory Results: 12/24/17 19:57 12/25/17 20:55 Impressions: KUB X-Ray 12/24/17 00:00 IMPRESSION: Nonspecific abdomen. Chest X-Ray 12/26/17 00:00 IMPRESSION: New Port-A-Cath insertion as noted above. No pneumothorax is seen. Other findings as noted above. Guidance Fluoroscopy 12/26/17 00:00 IMPRESSION: IMAGE(S) OBTAINED DURING PROCEDURE. Neck CTA 12/26/17 00:00 IMPRESSION: There is approximately 50% stenosis of the proximal left internal carotid artery.
[2017-12-27] MEDS: HYDROCODONE/ACETAMINOPHEN 10-325 MG TABLET PO PRN (17:43)
[2017-12-27] MEDS: ATORVASTATIN CALCIUM 40 MG TABLET PO SCH (22:09)
--- NOTE | 2017-12-27 22:39 | PDOC PROGRESS REPORT ---
Subjective Progress Note for:: 12/27/17 Subjective:: She was seen by the bedside she had a Port-A-Cath placement done his surgeon gave the impression that she does not have any accessible venous system on the left neck area, CTA of the neck was done which was normal. She continues to experience GI symptoms of vomiting ,nausea, diarrhea, abdominal pain requiring continued IV fluid replacement therapy Reason For Visit: DEHYDRATION Physical Exam Vital Signs: Temp Pulse Resp BP Pulse Ox 99.0 F 91 18 111/64 100 12/27/17 19:14 12/27/17 19:14 12/27/17 19:14 12/27/17 19:14 12/27/17 19:14 Intake & Output 12/26/17 12/27/17 12/28/17 06:59 06:59 06:59 Intake Total 1312 2666 1115 Output Total 1450 5425 Balance -138 -1979 1115 Weight 85.2 kg General appearance: PRESENT: no acute distress Eye exam: PRESENT: PERRLA Respiratory exam: PRESENT: clear to auscultation martínez Cardiovascular exam: PRESENT: +S1, +S2 GI/Abdominal exam: PRESENT: soft Neurological exam: PRESENT: alert Results Laboratory Results: 12/24/17 19:57 12/25/17 20:55 Impressions: KUB X-Ray 12/24/17 00:00 IMPRESSION: Nonspecific abdomen. Chest X-Ray 12/26/17 00:00 IMPRESSION: New Port-A-Cath insertion as noted above. No pneumothorax is seen. Other findings as noted above. Guidance Fluoroscopy 12/26/17 00:00 IMPRESSION: IMAGE(S) OBTAINED DURING PROCEDURE. Neck CTA 12/26/17 00:00 IMPRESSION: There is approximately 50% stenosis of the proximal left internal carotid artery. Assessment & Plan - Diagnosis (1) Gastroenteritis Is this a current diagnosis for this admission?: Yes (2) Hypokalemia Is this a current diagnosis for this admission?: Yes (3) Systemic lupus erythematosus Qualifiers: Systemic lupus erythematosus type: unspecified Systemic lupus erythematosus organ involvement: unspecified Qualified Code(s): M32.9 - Systemic lupus erythematosus, unspecified Is this a current diagnosis for this admission?: Yes (4) Dehydration Is this a current diagnosis for this admission?: Yes
--- NOTE | 2017-12-28 00:40 | RADIOLOGY REPORT (SQ) ---
EXAM DESCRIPTION: CT ABDOMEN AND PELVIS WITH CONTRAST CLINICAL HISTORY: bilateral hip pain COMPARISON: 10/05/2017 TECHNIQUE: CT of the abdomen and pelvis performed following IV administration of 50 mL of Isovue-370. DLP: 1068.44 mGycm FINDINGS: Bones: No destructive bone lesions identified. Partial visualization of posterior ilia and screw fixation involving the L4-S1 vertebral bodies. Dorsal generator identified. Right total hip arthroplasty. Degenerative change of the sacroiliac joints. Mild degenerative change of the left hip. No acute fracture identified. Pelvis: Bladder: Urinary bladder is unremarkable. Bowel: No dilated loops of the visualized large or small bowel. Appendix: No evidence of appendicitis. Pelvis: Postoperative changes in the anterior abdominal wall and anterior pelvis are stable. Prior hysterectomy. Gluteal injection granulomas. Aortoiliac atherosclerosis. IMPRESSION: 1. No acute hip fracture identified. Right total hip arthroplasty. Mild degenerative change of the left hip. This exam was performed according to our departmental dose-optimization program, which includes automated exposure control, adjustment of the mA and/or kV according to patient size and/or use of iterative reconstruction technique.
[2017-12-28] MEDS: HYDROXYCHLOROQUINE SULFATE 200 MG TABLET PO SCH ×3 (01:45→21:51)
[2017-12-28] MEDS: HYDROCODONE/ACETAMINOPHEN 10-325 MG TABLET PO PRN ×3 (02:18→17:42)
[2017-12-28] MEDS: LEVOTHYROXINE SODIUM 0.1 MG TABLET PO SCH (05:33)
[2017-12-28] MEDS: GABAPENTIN 300 MG CAPSULE PO SCH ×3 (05:33→21:50)
[2017-12-28] MEDS: HYDROMORPHONE HCL INJ/PF 2 MG/ML AMPULE IV PRN ×3 (05:34→21:51)
[2017-12-28] MEDS: ASPIRIN 325 MG TABLET PO SCH (09:37)
[2017-12-28] MEDS: HYDROCHLOROTHIAZIDE 25 MG TABLET PO SCH (09:37)
[2017-12-28] MEDS: CLOPIDOGREL BISULFATE 75 MG TABLET PO SCH (09:37)
[2017-12-28] MEDS: CIPROFLOXACIN 400 MG/D5W RTU 400 MG/200 ML RTUPB IV SCH ×2 (09:37→21:51)
[2017-12-28] MEDS: FUROSEMIDE 40 MG TABLET PO SCH (09:37)
[2017-12-28] MEDS: LOSARTAN POTASSIUM 50 MG TABLET PO SCH (09:38)
[2017-12-28] MEDS ORDERED: APIXABAN 5 MG TABLET PO SCH (10:00)
[2017-12-28] MEDS: PROMETHAZINE HCL 25 MG TABLET PO PRN (14:33)
--- NOTE | 2017-12-28 16:34 | PDOC PROGRESS REPORT ---
Subjective Progress Note for:: 12/28/17 Subjective:: no pains. Reason For Visit: DEHYDRATION Physical Exam Vital Signs: Temp Pulse Resp BP Pulse Ox 98.6 F 84 17 150/68 H 98 12/28/17 11:12 12/28/17 14:00 12/28/17 11:12 12/28/17 11:12 12/28/17 11:12 Intake & Output 12/27/17 12/28/17 12/29/17 06:59 06:59 06:59 Intake Total 2666 3185 Output Total 5425 1425 Balance -2759 1760 Exam: marisa cath in place and functioning well. Non tender. Results Laboratory Results: 12/24/17 19:57 12/25/17 20:55 Impressions: KUB X-Ray 12/24/17 00:00 IMPRESSION: Nonspecific abdomen. Chest X-Ray 12/26/17 00:00 IMPRESSION: New Port-A-Cath insertion as noted above. No pneumothorax is seen. Other findings as noted above. Guidance Fluoroscopy 12/26/17 00:00 IMPRESSION: IMAGE(S) OBTAINED DURING PROCEDURE. Neck CTA 12/26/17 00:00 IMPRESSION: There is approximately 50% stenosis of the proximal left internal carotid artery. Pelvis CT 12/28/17 00:00 IMPRESSION: 1. No acute hip fracture identified. Right total hip arthroplasty. Mild degenerative change of the left hip. This exam was performed according to our departmental dose-optimization program, which includes automated exposure control, adjustment of the mA and/or kV according to patient size and/or use of iterative reconstruction technique. Assessment & Plan - Time Time Spent with patient: 15-24 minutes - Plan Summary Plan Summary: Marisa cath fuctioning well without evidence of infection. Will sign off.
[2017-12-28] MEDS: ATORVASTATIN CALCIUM 40 MG TABLET PO SCH (21:50)
[2017-12-28] MEDS: PROMETHAZINE HCL INJ 25 MG/1 ML VIAL IV PRN (21:51)
--- NOTE | 2017-12-28 22:46 | PDOC PROGRESS REPORT ---
Subjective Progress Note for:: 12/28/17 Subjective:: She was seen by the bedside she had a Port-A-Cath placement done his surgeon gave the impression that she does not have any accessible venous system on the left neck area, CTA of the neck was done which was normal. She continues to experience GI symptoms of vomiting ,nausea, diarrhea, abdominal pain requiring continued IV fluid replacement therapy Reason For Visit: DEHYDRATION Physical Exam Vital Signs: Temp Pulse Resp BP Pulse Ox 98.8 F 92 19 138/58 H 97 12/28/17 19:19 12/28/17 19:19 12/28/17 19:19 12/28/17 19:19 12/28/17 19:19 Intake & Output 12/27/17 12/28/17 12/29/17 06:59 06:59 06:59 Intake Total 2666 3185 1123 Output Total 5425 1425 Balance -2759 1760 1123 Head exam: PRESENT: atraumatic, normocephalic Eye exam: PRESENT: PERRLA Ear exam: PRESENT: normal external ear exam Mouth exam: PRESENT: moist, tongue midline Neck exam: PRESENT: full ROM Respiratory exam: PRESENT: clear to auscultation martínez Cardiovascular exam: PRESENT: RRR, +S1, +S2 Pulses: PRESENT: normal dorsalis pedis pul, +2 pedal pulses bilateral Vascular exam: PRESENT: normal capillary refill GI/Abdominal exam: PRESENT: normal bowel sounds, soft Rectal exam: PRESENT: deferred Neurological exam: PRESENT: alert. ABSENT: motor sensory deficit Psychiatric exam: PRESENT: appropriate affect, normal mood Skin exam: PRESENT: dry, intact, warm. ABSENT: cyanosis, rash Results Laboratory Results: 12/24/17 19:57 12/25/17 20:55 Impressions: KUB X-Ray 12/24/17 00:00 IMPRESSION: Nonspecific abdomen. Chest X-Ray 12/26/17 00:00 IMPRESSION: New Port-A-Cath insertion as noted above. No pneumothorax is seen. Other findings as noted above. Guidance Fluoroscopy 12/26/17 00:00 IMPRESSION: IMAGE(S) OBTAINED DURING PROCEDURE. Neck CTA 12/26/17 00:00 IMPRESSION: There is approximately 50% stenosis of the proximal left internal carotid artery. Pelvis CT 12/28/17 00:00 IMPRESSION: 1. No acute hip fracture identified. Right total hip arthroplasty. Mild degenerative change of the left hip. This exam was performed according to our departmental dose-optimization program, which includes automated exposure control, adjustment of the mA and/or kV according to patient size and/or use of iterative reconstruction technique. Assessment & Plan - Diagnosis (1) Gastroenteritis Is this a current diagnosis for this admission?: Yes (2) Hypokalemia Is this a current diagnosis for this admission?: Yes (3) Systemic lupus erythematosus Qualifiers: Systemic lupus erythematosus type: unspecified Systemic lupus erythematosus organ involvement: unspecified Qualified Code(s): M32.9 - Systemic lupus erythematosus, unspecified Is this a current diagnosis for this admission?: Yes (4) Dehydration Is this a current diagnosis for this admission?: Yes
[2017-12-28 23:38] LABS: ABSOLUTE EOSINOPHILS # (AUTO) 0.1 10^3/uL (0.0-0.6); ABSOLUTE LYMPHOCYTES (AUTO) 1.8 10^3/uL (0.5-4.7); ABSOLUTE MONOCYTES (AUTO) 0.7 10^3/uL (0.1-1.4); ABSOLUTE NEUT (AUTO) 5.6 10^3/uL (1.7-8.2); BASOPHILS % (AUTO) 0.3 % (0-2); EOSINOPHILS % (AUTO) 0.9 % (0-6); HEMATOCRIT 33.6 % (36.0-47.0); HEMOGLOBIN 11.4 g/dL (12.0-15.5); LYMPHOCYTES % (AUTO) 22.3 % (13-45); MEAN CORPUSCULAR HEMOGLOBIN 26.4 pg (27.0-33.4); MEAN CORPUSCULAR HGB CONC 33.8 g/dL (32.0-36.0); MEAN CORPUSCULAR VOLUME 78 fl (80-97); MONOCYTES % (AUTO) 8.3 % (3-13); PLATELET COUNT 321 10^3/uL (150-450); RED BLOOD COUNT 4.31 10^6/uL (3.72-5.28); RED CELL DISTRIBUTION WIDTH 15.1 % (11.5-14.0); SEGMENTED NEUTROPHILS % (AUTO) 68.2 % (42-78); TOTAL CELLS COUNTED % (AUTO) 100 %; WHITE BLOOD COUNT 8.2 10^3/uL (4.0-10.5)
[2017-12-28 23:49] LABS: ALANINE AMINOTRANSFERASE 13 U/L (9-52); ALBUMIN 3.6 g/dL (3.5-5.0); ALKALINE PHOSPHATASE 87 U/L (38-126); ANION GAP 11 (5-19); ASPARTATE AMINO TRANSFERASE 17 U/L (14-36); BILIRUBIN,DIRECT 0.2 mg/dL (0.0-0.4); BILIRUBIN,TOTAL 0.2 mg/dL (0.2-1.3); BLOOD UREA NITROGEN 12 mg/dL (7-20); CALCIUM 8.5 mg/dL (8.4-10.2); CARBON DIOXIDE 28 mmol/L (22-30); CHLORIDE 98 mmol/L (98-107); GLUCOSE 98 mg/dL (75-110); POTASSIUM 3.5 mmol/L (3.6-5.0); SODIUM 137.3 mmol/L (137-145); TOTAL PROTEIN 5.6 g/dL (6.3-8.2)
[2017-12-29] MEDS: PROMETHAZINE HCL INJ 25 MG/1 ML VIAL IV PRN ×4 (04:31→23:08)
[2017-12-29] MEDS: HYDROMORPHONE HCL INJ/PF 2 MG/ML AMPULE IV PRN ×4 (04:32→23:08)
[2017-12-29] MEDS: GABAPENTIN 300 MG CAPSULE PO SCH ×3 (05:25→21:11)
[2017-12-29] MEDS: LEVOTHYROXINE SODIUM 0.1 MG TABLET PO SCH (05:26)
[2017-12-29 05:52] LABS: ABSOLUTE EOSINOPHILS # (AUTO) 0.1 10^3/uL (0.0-0.6); ABSOLUTE LYMPHOCYTES (AUTO) 1.5 10^3/uL (0.5-4.7); ABSOLUTE MONOCYTES (AUTO) 0.7 10^3/uL (0.1-1.4); ABSOLUTE NEUT (AUTO) 6.1 10^3/uL (1.7-8.2); BASOPHILS % (AUTO) 0.3 % (0-2); EOSINOPHILS % (AUTO) 1.1 % (0-6); HEMATOCRIT 32.8 % (36.0-47.0); HEMOGLOBIN 11.2 g/dL (12.0-15.5); LYMPHOCYTES % (AUTO) 17.9 % (13-45); MEAN CORPUSCULAR HEMOGLOBIN 26.5 pg (27.0-33.4); MEAN CORPUSCULAR HGB CONC 34.1 g/dL (32.0-36.0); MEAN CORPUSCULAR VOLUME 78 fl (80-97); PLATELET COUNT 307 10^3/uL (150-450); RED BLOOD COUNT 4.23 10^6/uL (3.72-5.28); RED CELL DISTRIBUTION WIDTH 15.4 % (11.5-14.0); SEGMENTED NEUTROPHILS % (AUTO) 72.7 % (42-78); TOTAL CELLS COUNTED % (AUTO) 100 %; WHITE BLOOD COUNT 8.4 10^3/uL (4.0-10.5)
[2017-12-29 06:16] LABS: ALANINE AMINOTRANSFERASE 19 U/L (9-52); ALBUMIN 2.8 g/dL (3.5-5.0); ALKALINE PHOSPHATASE 77 U/L (38-126); ANION GAP 11 (5-19); ASPARTATE AMINO TRANSFERASE 14 U/L (14-36); BILIRUBIN,DIRECT 0.2 mg/dL (0.0-0.4); BILIRUBIN,TOTAL 0.2 mg/dL (0.2-1.3); BLOOD UREA NITROGEN 9 mg/dL (7-20); CALCIUM 7.1 mg/dL (8.4-10.2); CARBON DIOXIDE 23 mmol/L (22-30); CHLORIDE 105 mmol/L (98-107); GLUCOSE 94 mg/dL (75-110); SODIUM 139.1 mmol/L (137-145); TOTAL PROTEIN 4.6 g/dL (6.3-8.2)
[2017-12-29 06:21] LABS: POTASSIUM 2.8 mmol/L (3.6-5.0)
[2017-12-29] MEDS ORDERED: POTASSIUM CHLORIDE 10 MEQ TABLET.SA PO ONE ×2 (07:00→10:00)
[2017-12-29] MEDS: FUROSEMIDE 40 MG TABLET PO SCH (10:50)
[2017-12-29] MEDS: HYDROCHLOROTHIAZIDE 25 MG TABLET PO SCH (10:51)
[2017-12-29] MEDS: ASPIRIN 325 MG TABLET PO SCH (10:51)
[2017-12-29] MEDS: LOSARTAN POTASSIUM 50 MG TABLET PO SCH (10:51)
[2017-12-29] MEDS: HYDROXYCHLOROQUINE SULFATE 200 MG TABLET PO SCH ×2 (10:52→21:11)
[2017-12-29] MEDS: CLOPIDOGREL BISULFATE 75 MG TABLET PO SCH (10:52)
[2017-12-29] MEDS: CIPROFLOXACIN 400 MG/D5W RTU 400 MG/200 ML RTUPB IV SCH ×2 (10:53→21:09)
[2017-12-29] MEDS: NORMAL SALINE 1000 ML 1,000 ML IV PRN (10:53)
--- NOTE | 2017-12-29 11:25 | PDOC PROGRESS REPORT ---
Subjective Progress Note for:: 12/29/17 Subjective:: Patient is currently doing fair Patients admitted because of the gastroenteritis Patient's denied any abdominal pain today She has denied any nausea no vomiting Patient's potassium is still low Reason For Visit: DEHYDRATION Physical Exam Vital Signs: Temp Pulse Resp BP Pulse Ox 98.6 F 93 20 132/87 H 93 12/29/17 08:00 12/29/17 08:00 12/29/17 08:00 12/29/17 08:00 12/29/17 08:00 Intake & Output 12/28/17 12/29/17 12/30/17 06:59 06:59 06:59 Intake Total 3185 3103 Output Total 1425 800 Balance 1760 2303 General appearance: PRESENT: no acute distress, well-developed, well-nourished Head exam: PRESENT: atraumatic, normocephalic Eye exam: PRESENT: conjunctiva pink, EOMI, PERRLA. ABSENT: scleral icterus Ear exam: PRESENT: normal external ear exam Mouth exam: PRESENT: moist, tongue midline Neck exam: PRESENT: full ROM. ABSENT: carotid bruit, JVD, lymphadenopathy, thyromegaly Respiratory exam: PRESENT: clear to auscultation martínez Cardiovascular exam: PRESENT: RRR. ABSENT: diastolic murmur, rubs, systolic murmur Pulses: PRESENT: normal dorsalis pedis pul, +2 pedal pulses bilateral Vascular exam: PRESENT: normal capillary refill GI/Abdominal exam: PRESENT: normal bowel sounds, soft. ABSENT: distended, guarding, mass, organolmegaly, rebound, tenderness Rectal exam: PRESENT: deferred Extremities exam: ABSENT: pedal edema Neurological exam: PRESENT: alert, awake, oriented to person, oriented to place , oriented to time, oriented to situation, CN II-XII grossly intact. ABSENT: motor sensory deficit Psychiatric exam: PRESENT: appropriate affect, normal mood. ABSENT: homicidal ideation, suicidal ideation Skin exam: PRESENT: dry, intact, warm. ABSENT: cyanosis, rash Results Laboratory Results: 12/29/17 05:30 12/29/17 05:30 12/28/17 12/28/17 12/29/17 23:20 23:20 05:30 WBC 8.2 8.4 RBC 4.31 4.23 Hgb 11.4 L 11.2 L Hct 33.6 L 32.8 L MCV 78 L 78 L MCH 26.4 L 26.5 L MCHC 33.8 34.1 RDW 15.1 H 15.4 H Plt Count 321 307 Seg Neutrophils % 68.2 72.7 Lymphocytes % 22.3 17.9 Monocytes % 8.3 8.0 Eosinophils % 0.9 1.1 Basophils % 0.3 0.3 Absolute Neutrophils 5.6 6.1 Absolute Lymphocytes 1.8 1.5 Absolute Monocytes 0.7 0.7 Absolute Eosinophils 0.1 0.1 Absolute Basophils 0.0 0.0 Sodium 137.3 Potassium 3.5 L Chloride 98 Carbon Dioxide 28 Anion Gap 11 BUN 12 Creatinine 1.02 Est GFR ( Amer) > 60 Est GFR (Non-Af Amer) 55 L Glucose 98 Calcium 8.5 Total Bilirubin 0.2 AST 17 ALT 13 Alkaline Phosphatase 87 Total Protein 5.6 L Albumin 3.6 12/29/17 05:30 WBC RBC Hgb Hct MCV MCH MCHC RDW Plt Count Seg Neutrophils % Lymphocytes % Monocytes % Eosinophils % Basophils % Absolute Neutrophils Absolute Lymphocytes Absolute Monocytes Absolute Eosinophils Absolute Basophils Sodium 139.1 Potassium 2.8 L* Chloride 105 Carbon Dioxide 23 Anion Gap 11 BUN 9 Creatinine 0.75 Est GFR ( Amer) > 60 Est GFR (Non-Af Amer) > 60 Glucose 94 Calcium 7.1 L Total Bilirubin 0.2 AST 14 ALT 19 Alkaline Phosphatase 77 Total Protein 4.6 L Albumin 2.8 L Impressions: KUB X-Ray 12/24/17 00:00 IMPRESSION: Nonspecific abdomen. Chest X-Ray 12/26/17 00:00 IMPRESSION: New Port-A-Cath insertion as noted above. No pneumothorax is seen. Other findings as noted above. Guidance Fluoroscopy 12/26/17 00:00 IMPRESSION: IMAGE(S) OBTAINED DURING PROCEDURE. Neck CTA 12/26/17 00:00 IMPRESSION: There is approximately 50% stenosis of the proximal left internal carotid artery. Pelvis CT 12/28/17 00:00 IMPRESSION: 1. No acute hip fracture identified. Right total hip arthroplasty. Mild degenerative change of the left hip. This exam was performed according to our departmental dose-optimization program, which includes automated exposure control, adjustment of the mA and/or kV according to patient size and/or use of iterative reconstruction technique. Assessment & Plan - Diagnosis (1) Dehydration Is this a current diagnosis for this admission?: Yes (2) Gastroenteritis Is this a current diagnosis for this admission?: Yes (3) Hypokalemia Is this a current diagnosis for this admission?: Yes (4) Systemic lupus erythematosus Qualifiers: Systemic lupus erythematosus type: unspecified Systemic lupus erythematosus organ involvement: unspecified Qualified Code(s): M32.9 - Systemic lupus erythematosus, unspecified Is this a current diagnosis for this admission?: Yes - Time Time Spent with patient: 15-24 minutes Medications reviewed and adjusted accordingly: Yes Anticipated discharge: Other Within: Other - Inpatient Certification Medical Necessity: Need Close Monitoring Due to Risk of Patient Decompensation Post Hospital Care: D/C Television Actor Documentation - Plan Summary Plan Summary: Current medication replace the potassium
[2017-12-29] MEDS: ATORVASTATIN CALCIUM 40 MG TABLET PO SCH (21:11)
[2017-12-30] MEDS: GABAPENTIN 300 MG CAPSULE PO SCH ×3 (05:33→21:53)
[2017-12-30] MEDS: PROMETHAZINE HCL INJ 25 MG/1 ML VIAL IV PRN (05:33)
[2017-12-30] MEDS: HYDROMORPHONE HCL INJ/PF 2 MG/ML AMPULE IV PRN ×3 (05:33→17:51)
[2017-12-30] MEDS: LEVOTHYROXINE SODIUM 0.1 MG TABLET PO SCH (05:33)
[2017-12-30 06:59] LABS: ABSOLUTE EOSINOPHILS # (AUTO) 0.1 10^3/uL (0.0-0.6); ABSOLUTE LYMPHOCYTES (AUTO) 1.5 10^3/uL (0.5-4.7); ABSOLUTE MONOCYTES (AUTO) 0.6 10^3/uL (0.1-1.4); ABSOLUTE NEUT (AUTO) 4.5 10^3/uL (1.7-8.2); BASOPHILS % (AUTO) 0.3 % (0-2); EOSINOPHILS % (AUTO) 1.4 % (0-6); HEMATOCRIT 30.5 % (36.0-47.0); HEMOGLOBIN 10.4 g/dL (12.0-15.5); LYMPHOCYTES % (AUTO) 21.8 % (13-45); MEAN CORPUSCULAR HEMOGLOBIN 26.7 pg (27.0-33.4); MEAN CORPUSCULAR HGB CONC 34.2 g/dL (32.0-36.0); MEAN CORPUSCULAR VOLUME 78 fl (80-97); MONOCYTES % (AUTO) 8.7 % (3-13); PLATELET COUNT 289 10^3/uL (150-450); RED BLOOD COUNT 3.89 10^6/uL (3.72-5.28); RED CELL DISTRIBUTION WIDTH 15.4 % (11.5-14.0); SEGMENTED NEUTROPHILS % (AUTO) 67.8 % (42-78); TOTAL CELLS COUNTED % (AUTO) 100 %; WHITE BLOOD COUNT 6.7 10^3/uL (4.0-10.5)
[2017-12-30 07:23] LABS: ANION GAP 10 (5-19); BLOOD UREA NITROGEN 7 mg/dL (7-20); CARBON DIOXIDE 27 mmol/L (22-30); CHLORIDE 102 mmol/L (98-107); GLUCOSE 94 mg/dL (75-110); POTASSIUM 3.6 mmol/L (3.6-5.0)
[2017-12-30] MEDS: FUROSEMIDE 40 MG TABLET PO SCH (08:53)
--- NOTE | 2017-12-30 10:38 | PDOC PROGRESS REPORT ---
Subjective Progress Note for:: 12/30/17 Subjective:: She is currently denied any chest pain denied any shortness of the breath no Abdominal pain no nausea no eating Reason For Visit: DEHYDRATION Physical Exam Vital Signs: Temp Pulse Resp BP Pulse Ox 97.9 F 113 H 18 130/99 H 91 L 12/30/17 08:49 12/30/17 08:49 12/30/17 08:49 12/30/17 08:49 12/30/17 08:49 Intake & Output 12/29/17 12/30/17 12/31/17 06:59 06:59 06:59 Intake Total 3103 4337 Output Total 800 2000 Balance 2303 2337 Weight 90.3 kg General appearance: PRESENT: no acute distress, well-developed, well-nourished Head exam: PRESENT: atraumatic, normocephalic Eye exam: PRESENT: conjunctiva pink, EOMI, PERRLA. ABSENT: scleral icterus Ear exam: PRESENT: normal external ear exam Mouth exam: PRESENT: moist, tongue midline Neck exam: PRESENT: full ROM. ABSENT: carotid bruit, JVD, lymphadenopathy, thyromegaly Respiratory exam: PRESENT: clear to auscultation martínez Cardiovascular exam: PRESENT: RRR. ABSENT: diastolic murmur, rubs, systolic murmur Pulses: PRESENT: normal dorsalis pedis pul, +2 pedal pulses bilateral Vascular exam: PRESENT: normal capillary refill GI/Abdominal exam: PRESENT: normal bowel sounds, soft. ABSENT: distended, guarding, mass, organolmegaly, rebound, tenderness Rectal exam: PRESENT: deferred Extremities exam: ABSENT: pedal edema Musculoskeletal exam: PRESENT: ambulatory Neurological exam: PRESENT: alert, awake, oriented to person, oriented to place , oriented to time, oriented to situation, CN II-XII grossly intact. ABSENT: motor sensory deficit Psychiatric exam: PRESENT: appropriate affect, normal mood. ABSENT: homicidal ideation, suicidal ideation Skin exam: PRESENT: dry, intact, warm. ABSENT: cyanosis, rash Results Laboratory Results: 12/30/17 06:35 12/30/17 06:35 12/30/17 12/30/17 06:35 06:35 WBC 6.7 RBC 3.89 Hgb 10.4 L Hct 30.5 L MCV 78 L MCH 26.7 L MCHC 34.2 RDW 15.4 H Plt Count 289 Seg Neutrophils % 67.8 Lymphocytes % 21.8 Monocytes % 8.7 Eosinophils % 1.4 Basophils % 0.3 Absolute Neutrophils 4.5 Absolute Lymphocytes 1.5 Absolute Monocytes 0.6 Absolute Eosinophils 0.1 Absolute Basophils 0.0 Sodium 139.0 Potassium 3.6 Chloride 102 Carbon Dioxide 27 Anion Gap 10 BUN 7 Creatinine 0.83 Est GFR ( Amer) > 60 Est GFR (Non-Af Amer) > 60 Glucose 94 Calcium 8.0 L Impressions: KUB X-Ray 12/24/17 00:00 IMPRESSION: Nonspecific abdomen. Chest X-Ray 12/26/17 00:00 IMPRESSION: New Port-A-Cath insertion as noted above. No pneumothorax is seen. Other findings as noted above. Guidance Fluoroscopy 12/26/17 00:00 IMPRESSION: IMAGE(S) OBTAINED DURING PROCEDURE. Neck CTA 12/26/17 00:00 IMPRESSION: There is approximately 50% stenosis of the proximal left internal carotid artery. Pelvis CT 12/28/17 00:00 IMPRESSION: 1. No acute hip fracture identified. Right total hip arthroplasty. Mild degenerative change of the left hip. This exam was performed according to our departmental dose-optimization program, which includes automated exposure control, adjustment of the mA and/or kV according to patient size and/or use of iterative reconstruction technique. Assessment & Plan - Diagnosis (1) Dehydration Is this a current diagnosis for this admission?: Yes (2) Gastroenteritis Is this a current diagnosis for this admission?: Yes (3) Hypokalemia Is this a current diagnosis for this admission?: Yes (4) Systemic lupus erythematosus Qualifiers: Systemic lupus erythematosus type: unspecified Systemic lupus erythematosus organ involvement: unspecified Qualified Code(s): M32.9 - Systemic lupus erythematosus, unspecified Is this a current diagnosis for this admission?: Yes - Time Time Spent with patient: 15-24 minutes Medications reviewed and adjusted accordingly: Yes Anticipated discharge: Home Within: within 24 hours - Inpatient Certification Medical Necessity: Need Close Monitoring Due to Risk of Patient Decompensation, Need For IV Fluids Post Hospital Care: D/C Abstractor Documentation - Plan Summary Plan Summary: Patient is currently doing much better hopefully discharge in next 24 hours
[2017-12-30] MEDS: ASPIRIN 325 MG TABLET PO SCH (11:16)
[2017-12-30] MEDS: LOSARTAN POTASSIUM 50 MG TABLET PO SCH (11:17)
[2017-12-30] MEDS: HYDROXYCHLOROQUINE SULFATE 200 MG TABLET PO SCH ×2 (11:17→21:53)
[2017-12-30] MEDS: CIPROFLOXACIN 400 MG/D5W RTU 400 MG/200 ML RTUPB IV SCH ×2 (11:18→21:53)
[2017-12-30] MEDS: HYDROCHLOROTHIAZIDE 25 MG TABLET PO SCH (11:19)
[2017-12-30] MEDS: NORMAL SALINE 1000 ML 1,000 ML IV PRN (11:19)
[2017-12-30] MEDS: CLOPIDOGREL BISULFATE 75 MG TABLET PO SCH (11:19)
[2017-12-30] MEDS: ATORVASTATIN CALCIUM 40 MG TABLET PO SCH (21:53)
[2017-12-31] MEDS: HYDROMORPHONE HCL INJ/PF 2 MG/ML AMPULE IV PRN ×4 (00:02→20:44)
[2017-12-31] MEDS: PROMETHAZINE HCL INJ 25 MG/1 ML VIAL IV PRN ×3 (00:02→20:44)
[2017-12-31] MEDS: LEVOTHYROXINE SODIUM 0.1 MG TABLET PO SCH (06:06)
[2017-12-31] MEDS: GABAPENTIN 300 MG CAPSULE PO SCH ×3 (06:06→22:12)
[2017-12-31 07:36] LABS: ANION GAP 14 (5-19); BLOOD UREA NITROGEN 10 mg/dL (7-20); CALCIUM 8.1 mg/dL (8.4-10.2); CARBON DIOXIDE 27 mmol/L (22-30); CHLORIDE 98 mmol/L (98-107); GLUCOSE 86 mg/dL (75-110); POTASSIUM 3.5 mmol/L (3.6-5.0); SODIUM 138.5 mmol/L (137-145)
[2017-12-31] MEDS: NORMAL SALINE 1000 ML 1,000 ML IV PRN (08:21)
[2017-12-31] MEDS: FUROSEMIDE 40 MG TABLET PO SCH (08:24)
[2017-12-31] MEDS: HYDROCHLOROTHIAZIDE 25 MG TABLET PO SCH (10:38)
[2017-12-31] MEDS: ASPIRIN 325 MG TABLET PO SCH (10:38)
[2017-12-31] MEDS: CIPROFLOXACIN 400 MG/D5W RTU 400 MG/200 ML RTUPB IV SCH ×2 (10:38→22:12)
[2017-12-31] MEDS: LOSARTAN POTASSIUM 50 MG TABLET PO SCH (10:39)
[2017-12-31] MEDS: CLOPIDOGREL BISULFATE 75 MG TABLET PO SCH (10:39)
[2017-12-31] MEDS: HYDROXYCHLOROQUINE SULFATE 200 MG TABLET PO SCH ×2 (10:41→22:12)
[2017-12-31] MEDS: ATORVASTATIN CALCIUM 40 MG TABLET PO SCH (22:12)
--- NOTE | 2017-12-31 22:21 | PDOC PROGRESS REPORT ---
Subjective Progress Note for:: 12/31/17 Subjective:: She continues to complain of urinary symptoms, dysuria, she is presently empirically on ciprofloxacin, she has a history of VRE UTI, ESBL UTI, so far urine culture is growing no organism Reason For Visit: DEHYDRATION Physical Exam Vital Signs: Temp Pulse Resp BP Pulse Ox 98.1 F 88 20 109/72 98 12/31/17 16:40 12/31/17 16:40 12/31/17 16:40 12/31/17 16:40 12/31/17 16:40 Intake & Output 12/30/17 12/31/17 01/01/18 06:59 06:59 06:59 Intake Total 4337 2443 802 Output Total 2000 700 Balance 2337 1743 802 Weight 90.3 kg General appearance: PRESENT: no acute distress Eye exam: PRESENT: PERRLA Respiratory exam: PRESENT: clear to auscultation martínez Cardiovascular exam: PRESENT: +S1, +S2 GI/Abdominal exam: PRESENT: soft Results Laboratory Results: 12/30/17 06:35 12/31/17 06:20 12/31/17 06:20 Sodium 138.5 Potassium 3.5 L Chloride 98 Carbon Dioxide 27 Anion Gap 14 BUN 10 Creatinine 0.98 Est GFR ( Amer) > 60 Est GFR (Non-Af Amer) 57 L Glucose 86 Calcium 8.1 L Impressions: KUB X-Ray 12/24/17 00:00 IMPRESSION: Nonspecific abdomen. Chest X-Ray 12/26/17 00:00 IMPRESSION: New Port-A-Cath insertion as noted above. No pneumothorax is seen. Other findings as noted above. Guidance Fluoroscopy 12/26/17 00:00 IMPRESSION: IMAGE(S) OBTAINED DURING PROCEDURE. Neck CTA 12/26/17 00:00 IMPRESSION: There is approximately 50% stenosis of the proximal left internal carotid artery. Pelvis CT 12/28/17 00:00 IMPRESSION: 1. No acute hip fracture identified. Right total hip arthroplasty. Mild degenerative change of the left hip. This exam was performed according to our departmental dose-optimization program, which includes automated exposure control, adjustment of the mA and/or kV according to patient size and/or use of iterative reconstruction technique. Assessment & Plan - Diagnosis (1) Gastroenteritis Is this a current diagnosis for this admission?: Yes (2) Hypokalemia Is this a current diagnosis for this admission?: Yes (3) Systemic lupus erythematosus Qualifiers: Systemic lupus erythematosus type: unspecified Systemic lupus erythematosus organ involvement: unspecified Qualified Code(s): M32.9 - Systemic lupus erythematosus, unspecified Is this a current diagnosis for this admission?: Yes (4) Dehydration Is this a current diagnosis for this admission?: Yes (5) Urinary tract infection Qualifiers: Urinary tract infection type: acute cystitis Hematuria presence: without hematuria Qualified Code(s): N30.00 - Acute cystitis without hematuria Is this a current diagnosis for this admission?: Yes
[2018-01-01] MEDS: NORMAL SALINE 1000 ML 1,000 ML IV PRN (03:12)
[2018-01-01] MEDS: HYDROMORPHONE HCL INJ/PF 2 MG/ML AMPULE IV PRN ×4 (03:14→21:12)
[2018-01-01] MEDS: PROMETHAZINE HCL INJ 25 MG/1 ML VIAL IV PRN ×4 (03:14→21:12)
[2018-01-01] MEDS: LEVOTHYROXINE SODIUM 0.1 MG TABLET PO SCH (05:47)
[2018-01-01] MEDS: GABAPENTIN 300 MG CAPSULE PO SCH ×3 (05:47→21:12)
[2018-01-01 06:44] LABS: ANION GAP 16 (5-19); BLOOD UREA NITROGEN 11 mg/dL (7-20); CALCIUM 8.3 mg/dL (8.4-10.2); CARBON DIOXIDE 27 mmol/L (22-30); CHLORIDE 97 mmol/L (98-107); GLUCOSE 99 mg/dL (75-110); POTASSIUM 3.7 mmol/L (3.6-5.0); SODIUM 140.2 mmol/L (137-145)
[2018-01-01] MEDS: FUROSEMIDE 40 MG TABLET PO SCH (08:14)
[2018-01-01] MEDS: HYDROXYCHLOROQUINE SULFATE 200 MG TABLET PO SCH ×2 (09:14→21:12)
[2018-01-01] MEDS: ASPIRIN 325 MG TABLET PO SCH (09:14)
[2018-01-01] MEDS: HYDROCHLOROTHIAZIDE 25 MG TABLET PO SCH (09:14)
[2018-01-01] MEDS: LOSARTAN POTASSIUM 50 MG TABLET PO SCH (09:16)
[2018-01-01] MEDS: CLOPIDOGREL BISULFATE 75 MG TABLET PO SCH (09:16)
[2018-01-01] MEDS: CIPROFLOXACIN 400 MG/D5W RTU 400 MG/200 ML RTUPB IV SCH ×2 (09:17→21:12)
--- NOTE | 2018-01-01 20:57 | PDOC PROGRESS REPORT ---
Subjective Progress Note for:: 01/01/18 Subjective:: Patient is seen by the bedside,She has less vomiting today Reason For Visit: DEHYDRATION Physical Exam Vital Signs: Temp Pulse Resp BP Pulse Ox 98.7 F 91 16 110/58 L 98 01/01/18 17:06 01/01/18 17:06 01/01/18 17:06 01/01/18 17:06 01/01/18 17:06 Intake & Output 12/31/17 01/01/18 01/02/18 06:59 06:59 06:59 Intake Total 2443 2768 490 Output Total 700 Balance 1743 2768 490 Weight 89.4 kg General appearance: PRESENT: no acute distress, well-developed, well-nourished Head exam: PRESENT: atraumatic, normocephalic Eye exam: PRESENT: conjunctiva pink, EOMI, PERRLA Ear exam: PRESENT: normal external ear exam Mouth exam: PRESENT: moist, tongue midline Neck exam: PRESENT: full ROM Respiratory exam: PRESENT: clear to auscultation martínez Cardiovascular exam: PRESENT: RRR, +S1, +S2 Vascular exam: PRESENT: normal capillary refill GI/Abdominal exam: PRESENT: normal bowel sounds, soft Rectal exam: PRESENT: deferred Neurological exam: PRESENT: alert, CN II-XII grossly intact Skin exam: PRESENT: dry, intact, warm. ABSENT: cyanosis, rash Results Laboratory Results: 12/30/17 06:35 01/01/18 05:51 01/01/18 05:51 Sodium 140.2 Potassium 3.7 Chloride 97 L Carbon Dioxide 27 Anion Gap 16 BUN 11 Creatinine 1.05 Est GFR ( Amer) > 60 Est GFR (Non-Af Amer) 53 L Glucose 99 Calcium 8.3 L Impressions: KUB X-Ray 12/24/17 00:00 IMPRESSION: Nonspecific abdomen. Chest X-Ray 12/26/17 00:00 IMPRESSION: New Port-A-Cath insertion as noted above. No pneumothorax is seen. Other findings as noted above. Guidance Fluoroscopy 12/26/17 00:00 IMPRESSION: IMAGE(S) OBTAINED DURING PROCEDURE. Neck CTA 12/26/17 00:00 IMPRESSION: There is approximately 50% stenosis of the proximal left internal carotid artery. Pelvis CT 12/28/17 00:00 IMPRESSION: 1. No acute hip fracture identified. Right total hip arthroplasty. Mild degenerative change of the left hip. This exam was performed according to our departmental dose-optimization program, which includes automated exposure control, adjustment of the mA and/or kV according to patient size and/or use of iterative reconstruction technique. Assessment & Plan - Diagnosis (1) Gastroenteritis Is this a current diagnosis for this admission?: Yes (2) Hypokalemia Is this a current diagnosis for this admission?: Yes (3) Systemic lupus erythematosus Qualifiers: Systemic lupus erythematosus type: unspecified Systemic lupus erythematosus organ involvement: unspecified Qualified Code(s): M32.9 - Systemic lupus erythematosus, unspecified Is this a current diagnosis for this admission?: Yes (4) Dehydration Is this a current diagnosis for this admission?: Yes (5) Urinary tract infection Qualifiers: Urinary tract infection type: acute cystitis Hematuria presence: without hematuria Qualified Code(s): N30.00 - Acute cystitis without hematuria Is this a current diagnosis for this admission?: Yes
[2018-01-01] MEDS: ATORVASTATIN CALCIUM 40 MG TABLET PO SCH (21:11)
[2018-01-01] MEDS: PHENAZOPYRIDINE HCL 100 MG TABLET PO SCH (21:12)
[2018-01-02] MEDS: HYDROMORPHONE HCL INJ/PF 2 MG/ML AMPULE IV PRN ×6 (01:24→22:42)
[2018-01-02] MEDS: PROMETHAZINE HCL INJ 25 MG/1 ML VIAL IV PRN ×3 (05:55→18:29)
[2018-01-02] MEDS: GABAPENTIN 300 MG CAPSULE PO SCH ×3 (05:55→21:42)
[2018-01-02] MEDS: LEVOTHYROXINE SODIUM 0.1 MG TABLET PO SCH (05:55)
[2018-01-02] MEDS: PHENAZOPYRIDINE HCL 100 MG TABLET PO SCH ×3 (05:55→21:42)
[2018-01-02] MEDS: FUROSEMIDE 40 MG TABLET PO SCH (07:33)
[2018-01-02] MEDS: ASPIRIN 325 MG TABLET PO SCH (11:08)
[2018-01-02] MEDS: HYDROCHLOROTHIAZIDE 25 MG TABLET PO SCH (11:09)
[2018-01-02] MEDS: LOSARTAN POTASSIUM 50 MG TABLET PO SCH (11:10)
[2018-01-02] MEDS: CLOPIDOGREL BISULFATE 75 MG TABLET PO SCH (11:10)
[2018-01-02] MEDS: HYDROXYCHLOROQUINE SULFATE 200 MG TABLET PO SCH ×2 (11:11→21:42)
[2018-01-02] MEDS: CIPROFLOXACIN 400 MG/D5W RTU 400 MG/200 ML RTUPB IV SCH (11:12)
--- NOTE | 2018-01-02 18:29 | PDOC PROGRESS REPORT ---
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 She told me that she was advised by a urologist that she has "a pocket" in the urinary bladder and that is why it was recommended that she does self- catheterization. The recurrent UTI will explain the vomiting that she is always experiencing, she has had in the past VRE, ESBL Klebsiella she has urinary symptoms does suggest UTI with dysuria she was given Pyridium Reason For Visit: DEHYDRATION Physical Exam Vital Signs: Temp Pulse Resp BP Pulse Ox 98.2 F 90 16 92/63 L 97 01/02/18 15:02 01/02/18 15:02 01/02/18 15:02 01/02/18 15:02 01/02/18 15:02 Intake & Output 01/01/18 01/02/18 01/03/18 06:59 06:59 06:59 Intake Total 2768 1890 Output Total 800 Balance 2768 1090 Weight 89.4 kg General appearance: PRESENT: no acute distress, well-developed, well-nourished Head exam: PRESENT: atraumatic, normocephalic Eye exam: PRESENT: conjunctiva pink, EOMI, PERRLA. ABSENT: scleral icterus Ear exam: PRESENT: normal external ear exam Mouth exam: PRESENT: moist, tongue midline Neck exam: PRESENT: full ROM. ABSENT: carotid bruit, JVD, lymphadenopathy, thyromegaly Cardiovascular exam: PRESENT: RRR. ABSENT: diastolic murmur, rubs, systolic murmur Pulses: PRESENT: normal dorsalis pedis pul, +2 pedal pulses bilateral Vascular exam: PRESENT: normal capillary refill GI/Abdominal exam: PRESENT: normal bowel sounds, soft. ABSENT: distended, guarding, mass, organolmegaly, rebound, tenderness Rectal exam: PRESENT: deferred Neurological exam: PRESENT: alert, awake, oriented to person, oriented to place , oriented to time, oriented to situation, CN II-XII grossly intact. ABSENT: motor sensory deficit Psychiatric exam: PRESENT: appropriate affect, normal mood. ABSENT: homicidal ideation, suicidal ideation Skin exam: PRESENT: dry, intact, warm. ABSENT: cyanosis, rash Results Laboratory Results: 12/30/17 06:35 01/01/18 05:51 Impressions: KUB X-Ray 12/24/17 00:00 IMPRESSION: Nonspecific abdomen. Chest X-Ray 12/26/17 00:00 IMPRESSION: New Port-A-Cath insertion as noted above. No pneumothorax is seen. Other findings as noted above. Guidance Fluoroscopy 12/26/17 00:00 IMPRESSION: IMAGE(S) OBTAINED DURING PROCEDURE. Neck CTA 12/26/17 00:00 IMPRESSION: There is approximately 50% stenosis of the proximal left internal carotid artery. Pelvis CT 12/28/17 00:00 IMPRESSION: 1. No acute hip fracture identified. Right total hip arthroplasty. Mild degenerative change of the left hip. This exam was performed according to our departmental dose-optimization program, which includes automated exposure control, adjustment of the mA and/or kV according to patient size and/or use of iterative reconstruction technique. Assessment & Plan - Diagnosis (1) Gastroenteritis Is this a current diagnosis for this admission?: Yes (2) Hypokalemia Is this a current diagnosis for this admission?: Yes (3) Systemic lupus erythematosus Qualifiers: Systemic lupus erythematosus type: unspecified Systemic lupus erythematosus organ involvement: unspecified Qualified Code(s): M32.9 - Systemic lupus erythematosus, unspecified Is this a current diagnosis for this admission?: Yes (4) Dehydration Is this a current diagnosis for this admission?: Yes (5) Urinary tract infection Qualifiers: Urinary tract infection type: acute cystitis Hematuria presence: without hematuria Qualified Code(s): N30.00 - Acute cystitis without hematuria Is this a current diagnosis for this admission?: Yes (6) Recurrent urinary tract infection Is this a current diagnosis for this admission?: Yes Plan: Urology consultation
[2018-01-02] MEDS: NORMAL SALINE 1000 ML 1,000 ML IV PRN (18:31)
[2018-01-02] MEDS: ATORVASTATIN CALCIUM 40 MG TABLET PO SCH (21:42)
[2018-01-03] MEDS: PROMETHAZINE HCL INJ 25 MG/1 ML VIAL IV PRN ×2 (01:31→22:03)
[2018-01-03] MEDS: HYDROMORPHONE HCL INJ/PF 2 MG/ML AMPULE IV PRN ×5 (03:06→22:03)
[2018-01-03] MEDS: PROMETHAZINE HCL 25 MG TABLET PO PRN ×3 (04:09→15:57)
[2018-01-03] MEDS: LEVOTHYROXINE SODIUM 0.1 MG TABLET PO SCH (05:10)
[2018-01-03] MEDS: PHENAZOPYRIDINE HCL 100 MG TABLET PO SCH ×3 (05:10→21:03)
[2018-01-03] MEDS: GABAPENTIN 300 MG CAPSULE PO SCH ×3 (05:10→21:03)
[2018-01-03] MEDS: FUROSEMIDE 40 MG TABLET PO SCH (08:15)
[2018-01-03] MEDS: ASPIRIN 325 MG TABLET PO SCH (09:52)
[2018-01-03] MEDS: CLOPIDOGREL BISULFATE 75 MG TABLET PO SCH (09:52)
[2018-01-03] MEDS: LOSARTAN POTASSIUM 50 MG TABLET PO SCH (09:52)
[2018-01-03] MEDS: HYDROXYCHLOROQUINE SULFATE 200 MG TABLET PO SCH ×2 (09:52→21:03)
[2018-01-03] MEDS: HYDROCHLOROTHIAZIDE 25 MG TABLET PO SCH (09:53)
[2018-01-03] MEDS: ATORVASTATIN CALCIUM 40 MG TABLET PO SCH (21:03)
--- NOTE | 2018-01-03 21:56 | PDOC PROGRESS REPORT ---
Subjective Progress Note for:: 01/03/18 Subjective:: She was seen by the bedside, there is no urologist precision inspector for the next 4 weeks , she has recurrent urinary tract infection partly due to retention of urine in the bladder. She probably could benefit from muscarinic agonist, Urecholine, I discussed this with the patient today, she will empirically be treated with this medication while she is in the hospital there is no evidence of any obstruction beyond the bladder that could be a contraindication to the use of this drug. She has had multiple hospital admission for UTI related complication including vomiting and metabolic encephalopathy. She has a history of VRE, ESBL Klebsiella pneumonia UTI. Reason For Visit: DEHYDRATION Physical Exam Vital Signs: Temp Pulse Resp BP Pulse Ox 98.0 F 87 18 94/47 L 97 01/03/18 15:25 01/03/18 19:00 01/03/18 15:25 01/03/18 15:25 01/03/18 15:25 Intake & Output 01/02/18 01/03/18 01/04/18 06:59 06:59 06:59 Intake Total 1890 2280 1663 Output Total 800 1800 700 Balance 1090 480 963 General appearance: PRESENT: no acute distress Head exam: PRESENT: atraumatic, normocephalic Eye exam: PRESENT: conjunctiva pink, EOMI, PERRLA Ear exam: PRESENT: normal external ear exam Mouth exam: PRESENT: moist, tongue midline Neck exam: PRESENT: full ROM Respiratory exam: PRESENT: clear to auscultation martínez Cardiovascular exam: PRESENT: RRR, +S1, +S2 Pulses: PRESENT: normal dorsalis pedis pul, +2 pedal pulses bilateral Vascular exam: PRESENT: normal capillary refill GI/Abdominal exam: PRESENT: normal bowel sounds, soft Rectal exam: PRESENT: deferred Neurological exam: PRESENT: alert Psychiatric exam: PRESENT: appropriate affect, normal mood Skin exam: PRESENT: dry, intact, warm. ABSENT: cyanosis, rash Results Laboratory Results: 12/30/17 06:35 01/01/18 05:51 Impressions: KUB X-Ray 12/24/17 00:00 IMPRESSION: Nonspecific abdomen. Chest X-Ray 12/26/17 00:00 IMPRESSION: New Port-A-Cath insertion as noted above. No pneumothorax is seen. Other findings as noted above. Guidance Fluoroscopy 12/26/17 00:00 IMPRESSION: IMAGE(S) OBTAINED DURING PROCEDURE. Neck CTA 12/26/17 00:00 IMPRESSION: There is approximately 50% stenosis of the proximal left internal carotid artery. Pelvis CT 12/28/17 00:00 IMPRESSION: 1. No acute hip fracture identified. Right total hip arthroplasty. Mild degenerative change of the left hip. This exam was performed according to our departmental dose-optimization program, which includes automated exposure control, adjustment of the mA and/or kV according to patient size and/or use of iterative reconstruction technique. Assessment & Plan - Diagnosis (1) Gastroenteritis Is this a current diagnosis for this admission?: Yes (2) Hypokalemia Is this a current diagnosis for this admission?: Yes (3) Systemic lupus erythematosus Qualifiers: Systemic lupus erythematosus type: unspecified Systemic lupus erythematosus organ involvement: unspecified Qualified Code(s): M32.9 - Systemic lupus erythematosus, unspecified Is this a current diagnosis for this admission?: Yes (4) Dehydration Is this a current diagnosis for this admission?: Yes (5) Urinary tract infection Qualifiers: Urinary tract infection type: acute cystitis Hematuria presence: without hematuria Qualified Code(s): N30.00 - Acute cystitis without hematuria Is this a current diagnosis for this admission?: Yes (6) Retention of urine Is this a current diagnosis for this admission?: Yes Plan: Start Urecholine 10 mg 1 tablet 3 times a day
[2018-01-03] MEDS ORDERED: BETHANECHOL CHLORIDE 25 MG TABLET PO SCH (22:00)
[2018-01-03] MEDS: BETHANECHOL CHLORIDE 25 MG TABLET PO SCH (22:16)
[2018-01-04] MEDS: HYDROMORPHONE HCL INJ/PF 2 MG/ML AMPULE IV PRN ×6 (02:06→23:55)
[2018-01-04] MEDS: PROMETHAZINE HCL INJ 25 MG/1 ML VIAL IV PRN ×4 (04:12→23:55)
[2018-01-04] MEDS: PHENAZOPYRIDINE HCL 100 MG TABLET PO SCH ×2 (05:53→13:19)
[2018-01-04] MEDS: BETHANECHOL CHLORIDE 25 MG TABLET PO SCH ×3 (05:53→23:54)
[2018-01-04] MEDS: LEVOTHYROXINE SODIUM 0.1 MG TABLET PO SCH (05:53)
[2018-01-04] MEDS: GABAPENTIN 300 MG CAPSULE PO SCH ×3 (05:53→23:54)
[2018-01-04] MEDS: FUROSEMIDE 40 MG TABLET PO SCH (08:24)
[2018-01-04] MEDS: ASPIRIN 325 MG TABLET PO SCH (10:34)
[2018-01-04] MEDS: HYDROCHLOROTHIAZIDE 25 MG TABLET PO SCH (10:34)
[2018-01-04] MEDS: CLOPIDOGREL BISULFATE 75 MG TABLET PO SCH (10:34)
[2018-01-04] MEDS: HYDROXYCHLOROQUINE SULFATE 200 MG TABLET PO SCH ×2 (11:56→23:52)
[2018-01-04] MEDS: LOSARTAN POTASSIUM 50 MG TABLET PO SCH (18:28)
--- NOTE | 2018-01-04 21:55 | PDOC PROGRESS REPORT ---
Subjective Progress Note for:: 01/04/18 Subjective:: She was seen by the bedside she is still complaining of nausea and vomiting, yesterday she was started on Urecholine a muscarinic agonist hopefully this will improve bladder emptying and prevent recurrent UTI. Reason For Visit: DEHYDRATION Physical Exam Vital Signs: Temp Pulse Resp BP Pulse Ox 98.5 F 85 16 123/51 L 95 01/04/18 20:00 01/04/18 20:00 01/04/18 20:00 01/04/18 20:00 01/04/18 20:00 Intake & Output 01/03/18 01/04/18 01/05/18 06:59 06:59 06:59 Intake Total 2280 1663 10 Output Total 1800 700 Balance 480 963 10 General appearance: PRESENT: no acute distress, well-developed, well-nourished Head exam: PRESENT: atraumatic, normocephalic Eye exam: PRESENT: conjunctiva pink, EOMI, PERRLA Ear exam: PRESENT: normal external ear exam Mouth exam: PRESENT: moist, tongue midline Neck exam: PRESENT: full ROM Respiratory exam: PRESENT: clear to auscultation martínez Cardiovascular exam: PRESENT: RRR, +S1, +S2 Pulses: PRESENT: normal dorsalis pedis pul, +2 pedal pulses bilateral Vascular exam: PRESENT: normal capillary refill GI/Abdominal exam: PRESENT: normal bowel sounds, soft Rectal exam: PRESENT: deferred Neurological exam: PRESENT: alert, awake, oriented to person, oriented to place , oriented to time, oriented to situation, CN II-XII grossly intact Psychiatric exam: PRESENT: appropriate affect, normal mood Skin exam: PRESENT: dry, intact, warm Results Laboratory Results: 12/30/17 06:35 01/01/18 05:51 Impressions: KUB X-Ray 12/24/17 00:00 IMPRESSION: Nonspecific abdomen. Chest X-Ray 12/26/17 00:00 IMPRESSION: New Port-A-Cath insertion as noted above. No pneumothorax is seen. Other findings as noted above. Guidance Fluoroscopy 12/26/17 00:00 IMPRESSION: IMAGE(S) OBTAINED DURING PROCEDURE. Neck CTA 12/26/17 00:00 IMPRESSION: There is approximately 50% stenosis of the proximal left internal carotid artery. Pelvis CT 12/28/17 00:00 IMPRESSION: 1. No acute hip fracture identified. Right total hip arthroplasty. Mild degenerative change of the left hip. This exam was performed according to our departmental dose-optimization program, which includes automated exposure control, adjustment of the mA and/or kV according to patient size and/or use of iterative reconstruction technique. Assessment & Plan - Diagnosis (1) Gastroenteritis Is this a current diagnosis for this admission?: Yes (2) Hypokalemia Is this a current diagnosis for this admission?: Yes (3) Systemic lupus erythematosus Qualifiers: Systemic lupus erythematosus type: unspecified Systemic lupus erythematosus organ involvement: unspecified Qualified Code(s): M32.9 - Systemic lupus erythematosus, unspecified Is this a current diagnosis for this admission?: Yes (4) Dehydration Is this a current diagnosis for this admission?: Yes (5) Urinary tract infection Qualifiers: Urinary tract infection type: acute cystitis Hematuria presence: without hematuria Qualified Code(s): N30.00 - Acute cystitis without hematuria Is this a current diagnosis for this admission?: Yes (6) Retention of urine Is this a current diagnosis for this admission?: Yes - Plan Summary Plan Summary: She will continue present treatment
[2018-01-04] MEDS: ATORVASTATIN CALCIUM 40 MG TABLET PO SCH (23:54)
[2018-01-05] MEDS: HYDROMORPHONE HCL INJ/PF 2 MG/ML AMPULE IV PRN ×4 (03:56→20:06)
[2018-01-05] MEDS: BETHANECHOL CHLORIDE 25 MG TABLET PO SCH ×3 (06:17→22:02)
[2018-01-05] MEDS: PROMETHAZINE HCL INJ 25 MG/1 ML VIAL IV PRN (06:18)
[2018-01-05] MEDS: LEVOTHYROXINE SODIUM 0.1 MG TABLET PO SCH (06:18)
[2018-01-05] MEDS: GABAPENTIN 300 MG CAPSULE PO SCH ×3 (06:18→22:02)
[2018-01-05] MEDS: FUROSEMIDE 40 MG TABLET PO SCH (08:44)
[2018-01-05] MEDS: ASPIRIN 325 MG TABLET PO SCH (10:39)
[2018-01-05] MEDS: HYDROCHLOROTHIAZIDE 25 MG TABLET PO SCH (10:39)
[2018-01-05] MEDS: CLOPIDOGREL BISULFATE 75 MG TABLET PO SCH (10:39)
[2018-01-05] MEDS: HYDROXYCHLOROQUINE SULFATE 200 MG TABLET PO SCH ×2 (10:39→22:02)
[2018-01-05] MEDS: LOSARTAN POTASSIUM 50 MG TABLET PO SCH (10:39)
[2018-01-05] MEDS: PROMETHAZINE HCL 25 MG TABLET PO PRN ×2 (15:10→22:02)
--- NOTE | 2018-01-05 16:34 | PDOC PROGRESS REPORT ---
Subjective Progress Note for:: 01/05/18 Subjective:: She was seen with the bedside she stated that she vomited today but the nurse could not confirm that,hopefully she be discharge home tomorrow Reason For Visit: DEHYDRATION Physical Exam Vital Signs: Temp Pulse Resp BP Pulse Ox 97.7 F 80 14 108/59 L 98 01/05/18 07:58 01/05/18 14:00 01/05/18 07:58 01/05/18 07:58 01/05/18 07:58 Intake & Output 01/04/18 01/05/18 01/06/18 06:59 06:59 06:59 Intake Total 1663 1410 444 Output Total 700 1600 2400 Balance 139 -275 -6394 General appearance: PRESENT: no acute distress Eye exam: PRESENT: PERRLA Respiratory exam: PRESENT: clear to auscultation martínez Cardiovascular exam: PRESENT: +S1, +S2 GI/Abdominal exam: PRESENT: soft Neurological exam: PRESENT: alert Results Laboratory Results: 12/30/17 06:35 01/01/18 05:51 Impressions: KUB X-Ray 12/24/17 00:00 IMPRESSION: Nonspecific abdomen. Chest X-Ray 12/26/17 00:00 IMPRESSION: New Port-A-Cath insertion as noted above. No pneumothorax is seen. Other findings as noted above. Guidance Fluoroscopy 12/26/17 00:00 IMPRESSION: IMAGE(S) OBTAINED DURING PROCEDURE. Neck CTA 12/26/17 00:00 IMPRESSION: There is approximately 50% stenosis of the proximal left internal carotid artery. Pelvis CT 12/28/17 00:00 IMPRESSION: 1. No acute hip fracture identified. Right total hip arthroplasty. Mild degenerative change of the left hip. This exam was performed according to our departmental dose-optimization program, which includes automated exposure control, adjustment of the mA and/or kV according to patient size and/or use of iterative reconstruction technique. Assessment & Plan - Diagnosis (1) Gastroenteritis Is this a current diagnosis for this admission?: Yes (2) Hypokalemia Is this a current diagnosis for this admission?: Yes (3) Systemic lupus erythematosus Qualifiers: Systemic lupus erythematosus type: unspecified Systemic lupus erythematosus organ involvement: unspecified Qualified Code(s): M32.9 - Systemic lupus erythematosus, unspecified Is this a current diagnosis for this admission?: Yes (4) Dehydration Is this a current diagnosis for this admission?: Yes (5) Urinary tract infection Qualifiers: Urinary tract infection type: acute cystitis Hematuria presence: without hematuria Qualified Code(s): N30.00 - Acute cystitis without hematuria Is this a current diagnosis for this admission?: Yes (6) Retention of urine Is this a current diagnosis for this admission?: Yes
[2018-01-05] MEDS: ATORVASTATIN CALCIUM 40 MG TABLET PO SCH (22:01)
[2018-01-05 22:29] LABS: ABSOLUTE EOSINOPHILS # (AUTO) 0.1 10^3/uL (0.0-0.6); ABSOLUTE LYMPHOCYTES (AUTO) 1.5 10^3/uL (0.5-4.7); ABSOLUTE MONOCYTES (AUTO) 0.6 10^3/uL (0.1-1.4); ABSOLUTE NEUT (AUTO) 5.9 10^3/uL (1.7-8.2); BASOPHILS % (AUTO) 0.2 % (0-2); EOSINOPHILS % (AUTO) 1.2 % (0-6); HEMATOCRIT 32.8 % (36.0-47.0); HEMOGLOBIN 11.1 g/dL (12.0-15.5); MEAN CORPUSCULAR HEMOGLOBIN 26.2 pg (27.0-33.4); MEAN CORPUSCULAR HGB CONC 33.7 g/dL (32.0-36.0); MEAN CORPUSCULAR VOLUME 78 fl (80-97); MONOCYTES % (AUTO) 7.6 % (3-13); PLATELET COUNT 347 10^3/uL (150-450); RED BLOOD COUNT 4.22 10^6/uL (3.72-5.28); RED CELL DISTRIBUTION WIDTH 14.8 % (11.5-14.0); TOTAL CELLS COUNTED % (AUTO) 100 %; WHITE BLOOD COUNT 8.1 10^3/uL (4.0-10.5)
[2018-01-05 22:42] LABS: ALANINE AMINOTRANSFERASE 19 U/L (9-52); ALBUMIN 3.3 g/dL (3.5-5.0); ALKALINE PHOSPHATASE 97 U/L (38-126); ANION GAP 9 (5-19); ASPARTATE AMINO TRANSFERASE 16 U/L (14-36); BILIRUBIN,DIRECT 0.2 mg/dL (0.0-0.4); BILIRUBIN,TOTAL 0.2 mg/dL (0.2-1.3); BLOOD UREA NITROGEN 12 mg/dL (7-20); CALCIUM 8.7 mg/dL (8.4-10.2); CARBON DIOXIDE 33 mmol/L (22-30); CHLORIDE 94 mmol/L (98-107); GLUCOSE 103 mg/dL (75-110); POTASSIUM 3.1 mmol/L (3.6-5.0); TOTAL PROTEIN 5.7 g/dL (6.3-8.2)
[2018-01-06] MEDS: HYDROMORPHONE HCL INJ/PF 2 MG/ML AMPULE IV PRN ×3 (00:49→10:01)
[2018-01-06] MEDS: PROMETHAZINE HCL 25 MG TABLET PO PRN (05:55)
[2018-01-06] MEDS: GABAPENTIN 300 MG CAPSULE PO SCH (05:56)
[2018-01-06] MEDS: LEVOTHYROXINE SODIUM 0.1 MG TABLET PO SCH (05:56)
[2018-01-06] MEDS: BETHANECHOL CHLORIDE 25 MG TABLET PO SCH (05:56)
[2018-01-06] MEDS: FUROSEMIDE 40 MG TABLET PO SCH (08:54)
[2018-01-06 08:59] LABS: ABSOLUTE EOSINOPHILS # (AUTO) 0.1 10^3/uL (0.0-0.6); ABSOLUTE MONOCYTES (AUTO) 0.6 10^3/uL (0.1-1.4); BASOPHILS % (AUTO) 0.4 % (0-2); EOSINOPHILS % (AUTO) 1.6 % (0-6); HEMATOCRIT 35.8 % (36.0-47.0); HEMOGLOBIN 12.1 g/dL (12.0-15.5); MEAN CORPUSCULAR HEMOGLOBIN 26.4 pg (27.0-33.4); MEAN CORPUSCULAR HGB CONC 33.9 g/dL (32.0-36.0); MEAN CORPUSCULAR VOLUME 78 fl (80-97); MONOCYTES % (AUTO) 6.4 % (3-13); PLATELET COUNT 379 10^3/uL (150-450); RED BLOOD COUNT 4.59 10^6/uL (3.72-5.28); RED CELL DISTRIBUTION WIDTH 15.3 % (11.5-14.0); SEGMENTED NEUTROPHILS % (AUTO) 68.6 % (42-78); TOTAL CELLS COUNTED % (AUTO) 100 %; WHITE BLOOD COUNT 8.7 10^3/uL (4.0-10.5)
[2018-01-06 09:20] LABS: ALANINE AMINOTRANSFERASE 16 U/L (9-52); ALBUMIN 3.8 g/dL (3.5-5.0); ALKALINE PHOSPHATASE 111 U/L (38-126); ANION GAP 13 (5-19); ASPARTATE AMINO TRANSFERASE 19 U/L (14-36); BILIRUBIN,DIRECT 0.3 mg/dL (0.0-0.4); BILIRUBIN,TOTAL 0.3 mg/dL (0.2-1.3); BLOOD UREA NITROGEN 11 mg/dL (7-20); CALCIUM 9.2 mg/dL (8.4-10.2); CARBON DIOXIDE 31 mmol/L (22-30); CHLORIDE 95 mmol/L (98-107); GLUCOSE 107 mg/dL (75-110); POTASSIUM 3.6 mmol/L (3.6-5.0); SODIUM 139.2 mmol/L (137-145); TOTAL PROTEIN 6.4 g/dL (6.3-8.2)
[2018-01-06] MEDS: HYDROCHLOROTHIAZIDE 25 MG TABLET PO SCH (10:00)
[2018-01-06] MEDS: CLOPIDOGREL BISULFATE 75 MG TABLET PO SCH (10:00)
[2018-01-06] MEDS: ASPIRIN 325 MG TABLET PO SCH (10:00)
[2018-01-06] MEDS: HYDROXYCHLOROQUINE SULFATE 200 MG TABLET PO SCH (10:01)
[2018-01-06] MEDS: LOSARTAN POTASSIUM 50 MG TABLET PO SCH (10:01)
--- NOTE | 2018-01-06 11:24 | PDOC DISCHARGE SUMMARY ---
General - Admit/Disc Date/PCP Admission Date/Primary Care Provider: 12/28/17 09:35 IAN MUÑOZ MD Discharge Date: 01/06/18 - Discharge Diagnosis (1) Gastroenteritis Is this a current diagnosis for this admission?: Yes (2) Hypokalemia Is this a current diagnosis for this admission?: Yes (3) Systemic lupus erythematosus Is this a current diagnosis for this admission?: Yes (4) Dehydration Is this a current diagnosis for this admission?: Yes (5) Urinary tract infection Is this a current diagnosis for this admission?: Yes (6) Retention of urine Is this a current diagnosis for this admission?: Yes - Additional Information Resuscitation Status: Full Code Prescriptions: Bethanechol Chloride [Urecholine 25 mg Tablet] 10 mg PO Q8 #90 tablet Home Medications: Aspirin [Aspirin 325 mg Tablet] 325 mg PO DAILY 10/11/17 Atorvastatin Calcium [Lipitor 40 mg Tablet] 40 mg PO QHS 10/11/17 Cyclobenzaprine HCl [Flexeril 10 mg Tablet] 10 mg PO Q8HP PRN 10/11/17 Gabapentin [Neurontin 300 mg Capsule] 600 mg PO Q8 10/11/17 Hydroxychloroquine Sulfate [Plaquenil 200 mg Tablet] 200 mg PO Q12 10/11/17 Levothyroxine Sodium [Synthroid 0.1 mg Tablet] 0.1 mg PO Q6AM 10/11/17 Losartan/Hydrochlorothiazide [Losartan-Hctz 100-25 mg Tab] 1 tab PO DAILY Hydrocodone Bitartrate [Zohydro ER] 40 mg PO Q12 10/13/17 Apixaban [Eliquis 5 mg Tablet] 5 mg PO Q12 11/21/17 Clopidogrel Bisulfate [Plavix 75 mg Tablet] 75 mg PO DAILY 11/21/17 Furosemide [Lasix 40 mg Tablet] 40 mg PO QAM 11/21/17 Promethazine HCl [Phenergan 25 mg Tablet] 25 mg PO Q6HP PRN 11/21/17 Hydrocodone Bit/Acetaminophen [Hydrocodon-Acetaminophn 10-325] 1 tab PO Q6HP PRN 12/24/17 Zaleplon [Sonata] 10 mg PO QHS 12/24/17 Bethanechol Chloride [Urecholine 25 mg Tablet] 10 mg PO Q8 #90 tablet 01/06/18 History of Present Illness History of Present Illness: VALENTE MUNOZ is a 62 year old female, She has a history of systemic lupus erythematosus, coronary artery disease, history 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 The comprehensive metabolic panel showed hypokalemia from GI losses Hospital Course Hospital Course: She was admitted initially for evaluation of vomiting ,diarrhea, there was associated hypokalemia. Hospital course was complicated with urinary tract infection with vomiting. She was initially admitted for observation this was transitioned to inpatient care because of persistent vomiting. 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 She does self catheterization because of inability to empty the urinary bladder, she has had multiple hospital admission for urinary tract infection related conditions. On this admission she was started on Urecholine cholinergic agonist. She also was empirically treated with p.o. antibiotic Cipro for urinary symptoms no specific organism was cultured from the urine on this admission unlike previous UTI when she had VRE, ESBL UTIs. Physical Exam Vital Signs: Temp Pulse Resp BP Pulse Ox 98.3 F 78 16 109/51 L 96 01/06/18 08:25 01/06/18 08:25 01/06/18 08:25 01/06/18 08:25 01/06/18 08:25 Intake & Output 01/05/18 01/06/18 01/07/18 06:59 06:59 06:59 Intake Total 1410 2616 Output Total 1600 3600 Balance -190 -984 General appearance: PRESENT: no acute distress, well-developed, well-nourished Head exam: PRESENT: atraumatic, normocephalic Eye exam: PRESENT: conjunctiva pink, EOMI, PERRLA Ear exam: PRESENT: normal external ear exam Mouth exam: PRESENT: moist, tongue midline Neck exam: PRESENT: full ROM Respiratory exam: PRESENT: clear to auscultation martínez Cardiovascular exam: PRESENT: RRR, +S1, +S2 Pulses: PRESENT: normal dorsalis pedis pul, +2 pedal pulses bilateral Vascular exam: PRESENT: normal capillary refill GI/Abdominal exam: PRESENT: normal bowel sounds, soft Rectal exam: PRESENT: deferred Neurological exam: PRESENT: alert, awake, oriented to person, oriented to place , oriented to time, oriented to situation, CN II-XII grossly intact Psychiatric exam: PRESENT: appropriate affect, normal mood Skin exam: PRESENT: dry, intact, warm Results Laboratory Results: 01/06/18 08:29 01/06/18 08:29 01/05/18 01/05/18 01/06/18 22:13 22:13 08:29 WBC 8.1 8.7 RBC 4.22 4.59 Hgb 11.1 L 12.1 Hct 32.8 L 35.8 L MCV 78 L 78 L MCH 26.2 L 26.4 L MCHC 33.7 33.9 RDW 14.8 H 15.3 H Plt Count 347 379 Seg Neutrophils % 73.0 68.6 Lymphocytes % 18.0 23.0 Monocytes % 7.6 6.4 Eosinophils % 1.2 1.6 Basophils % 0.2 0.4 Absolute Neutrophils 5.9 6.0 Absolute Lymphocytes 1.5 2.0 Absolute Monocytes 0.6 0.6 Absolute Eosinophils 0.1 0.1 Absolute Basophils 0.0 0.0 Sodium 136.0 L Potassium 3.1 L Chloride 94 L Carbon Dioxide 33 H Anion Gap 9 BUN 12 Creatinine 0.92 Est GFR ( Amer) > 60 Est GFR (Non-Af Amer) > 60 Glucose 103 Calcium 8.7 Total Bilirubin 0.2 AST 16 ALT 19 Alkaline Phosphatase 97 Total Protein 5.7 L Albumin 3.3 L 01/06/18 08:29 WBC RBC Hgb Hct MCV MCH MCHC RDW Plt Count Seg Neutrophils % Lymphocytes % Monocytes % Eosinophils % Basophils % Absolute Neutrophils Absolute Lymphocytes Absolute Monocytes Absolute Eosinophils Absolute Basophils Sodium 139.2 Potassium 3.6 Chloride 95 L Carbon Dioxide 31 H Anion Gap 13 BUN 11 Creatinine 0.91 Est GFR ( Amer) > 60 Est GFR (Non-Af Amer) > 60 Glucose 107 Calcium 9.2 Total Bilirubin 0.3 AST 19 ALT 16 Alkaline Phosphatase 111 Total Protein 6.4 Albumin 3.8 Impressions: KUB X-Ray 12/24/17 00:00 IMPRESSION: Nonspecific abdomen. Chest X-Ray 12/26/17 00:00 IMPRESSION: New Port-A-Cath insertion as noted above. No pneumothorax is seen. Other findings as noted above. Guidance Fluoroscopy 12/26/17 00:00 IMPRESSION: IMAGE(S) OBTAINED DURING PROCEDURE. Neck CTA 12/26/17 00:00 IMPRESSION: There is approximately 50% stenosis of the proximal left internal carotid artery. Pelvis CT 12/28/17 00:00 IMPRESSION: 1. No acute hip fracture identified. Right total hip arthroplasty. Mild degenerative change of the left hip. This exam was performed according to our departmental dose-optimization program, which includes automated exposure control, adjustment of the mA and/or kV according to patient size and/or use of iterative reconstruction technique. Qualifiers - * PATIENT BEING DISCHARGED WITH ANY OF THE FOLLOWING DIAGNOSIS: No
[2018-01-06 12:30] VITALS: BP 109/51
== END 2018-01-06 12:55 | disposition home or self-care (01) | DRG 392 ==
LOC: INTOOBSV 18:02 → OBSVTOIN 18:02 → 4S 18:02 → OBSVTOIN 12-28 09:35
PROVIDERS: ADMIT Internal Medicine; ATTEND Internal Medicine
PROC: 0JPT3WZ Removal of Totally Implantable Vascular Access Device from Trunk Subcutaneous Tissue and Fascia, Percutaneous Approach (ICD-10-PCS; 2017-12-26)
PROC: B5181ZA Fluoroscopy of Superior Vena Cava using Low Osmolar Contrast, Guidance (ICD-10-PCS; 2017-12-26)
PROC: 0JH63WZ Insertion of Totally Implantable Vascular Access Device into Chest Subcutaneous Tissue and Fascia, Percutaneous Approach (ICD-10-PCS; principal; 2017-12-26 09:15)
DX: K52.9 Noninfective gastroenteritis and colitis, unspecified (principal); T85.618A Breakdown (mechanical) of other specified internal prosthetic devices, implants and grafts, initial encounter; N30.00 Acute cystitis without hematuria; E86.0 Dehydration; E87.6 Hypokalemia; M32.9 Systemic lupus erythematosus, unspecified; R33.9 Retention of urine, unspecified; I25.10 Atherosclerotic heart disease of native coronary artery without angina pectoris; I50.9 Heart failure, unspecified; E78.00 Pure hypercholesterolemia, unspecified; I11.0 Hypertensive heart disease with heart failure; J44.9 Chronic obstructive pulmonary disease, unspecified; E03.9 Hypothyroidism, unspecified; K21.9 Gastro-esophageal reflux disease without esophagitis; K44.9 Diaphragmatic hernia without obstruction or gangrene; F32.9 Major depressive disorder, single episode, unspecified; D64.9 Anemia, unspecified; M79.7 Fibromyalgia; I65.22 Occlusion and stenosis of left carotid artery; I25.2 Old myocardial infarction; Z79.899 Other long term (current) drug therapy; Z86.711 Personal history of pulmonary embolism; Z79.01 Long term (current) use of anticoagulants; Z85.41 Personal history of malignant neoplasm of cervix uteri; Z85.43 Personal history of malignant neoplasm of ovary; Z95.5 Presence of coronary angioplasty implant and graft; Z90.49 Acquired absence of other specified parts of digestive tract; Z90.710 Acquired absence of both cervix and uterus; Z88.0 Allergy status to penicillin; Z88.8 Allergy status to other drugs, medicaments and biological substances; Z88.6 Allergy status to analgesic agent; Z88.3 Allergy status to other anti-infective agents; Z91.030 Bee allergy status; Z96.653 Presence of artificial knee joint, bilateral; Z96.649 Presence of unspecified artificial hip joint; Z87.891 Personal history of nicotine dependence; Z82.61 Family history of arthritis; Z83.6 Family history of other diseases of the respiratory system; Z80.9 Family history of malignant neoplasm, unspecified; Z83.49 Family history of other endocrine, nutritional and metabolic diseases; Z82.49 Family history of ischemic heart disease and other diseases of the circulatory system; Z45.2 Encounter for adjustment and management of vascular access device
CPT/HCPCS: 36415; 532; 70498; 71045; 72193; 74018; 77001; 80048; 80053; 80076; 81001; 84439; 84443; 85025; 85027; 88304; C1769; C1788; G0378; G0379; J0744; J1170; J1642; J2250; J2405; J2550; J2704; J3010; J3490; J7030

== ENCOUNTER 2018-01-08 12:40 | Inpatient (IN) | payer MEDICARE, OTHER ==
[2018-01-08] MEDS ORDERED: NORMAL SALINE 1000 ML 1,000 ML IV PRN (13:34)
[2018-01-08] MEDS: METRONIDAZOLE 500 MG/NS RTU 100 ML IV SCH ×2 (16:12→21:08)
[2018-01-08 16:47] LABS: ABSOLUTE LYMPHOCYTES (AUTO) 2.2 10^3/uL (0.5-4.7); ABSOLUTE MONOCYTES (AUTO) 0.7 10^3/uL (0.1-1.4); ABSOLUTE NEUT (AUTO) 6.8 10^3/uL (1.7-8.2); BASOPHILS % (AUTO) 0.4 % (0-2); EOSINOPHILS % (AUTO) 0.3 % (0-6); HEMOGLOBIN 12.8 g/dL (12.0-15.5); LYMPHOCYTES % (AUTO) 22.5 % (13-45); MEAN CORPUSCULAR HEMOGLOBIN 26.3 pg (27.0-33.4); MEAN CORPUSCULAR HGB CONC 34.5 g/dL (32.0-36.0); MEAN CORPUSCULAR VOLUME 76 fl (80-97); PLATELET COUNT 405 10^3/uL (150-450); RED BLOOD COUNT 4.86 10^6/uL (3.72-5.28); RED CELL DISTRIBUTION WIDTH 14.8 % (11.5-14.0); SEGMENTED NEUTROPHILS % (AUTO) 69.8 % (42-78); TOTAL CELLS COUNTED % (AUTO) 100 %; WHITE BLOOD COUNT 9.7 10^3/uL (4.0-10.5)
[2018-01-08 17:04] LABS: ALANINE AMINOTRANSFERASE 27 U/L (9-52); ALBUMIN 3.8 g/dL (3.5-5.0); ALKALINE PHOSPHATASE 109 U/L (38-126); ANION GAP 15 (5-19); ASPARTATE AMINO TRANSFERASE 21 U/L (14-36); BILIRUBIN,DIRECT 0.2 mg/dL (0.0-0.4); BILIRUBIN,TOTAL 0.4 mg/dL (0.2-1.3); BLOOD UREA NITROGEN 15 mg/dL (7-20); CALCIUM 9.2 mg/dL (8.4-10.2); CARBON DIOXIDE 26 mmol/L (22-30); CHLORIDE 95 mmol/L (98-107); GLUCOSE 94 mg/dL (75-110); SODIUM 135.8 mmol/L (137-145); TOTAL PROTEIN 6.3 g/dL (6.3-8.2)
[2018-01-08 17:09] LABS: POTASSIUM 2.8 mmol/L (3.6-5.0)
[2018-01-08] MEDS: POTASSI CL 40 MEQ/NS 1L 1,000 ML IV PRN (18:11)
[2018-01-08] MEDS ORDERED: CARVEDILOL PHOSPHATE 40 MG PO SCH (18:15)
[2018-01-08] MEDS ORDERED: ATORVASTATIN CALCIUM 40 MG TABLET PO SCH (18:15)
[2018-01-08] MEDS ORDERED: HYDROCODONE BITARTRATE 40 MG PO SCH (18:15)
[2018-01-08] MEDS ORDERED: OMEGA-3 ACID ETHYL ESTERS 1 GM CAPSULE PO ONE (19:00)
[2018-01-08] MEDS ORDERED: HYDROXYCHLOROQUINE SULFATE 200 MG TABLET PO ONE (19:30)
[2018-01-08] MEDS ORDERED: (PENDING PHARMACY ID) (Zaleplon [Sonata] 10 MG) PO PRN (20:29)
[2018-01-08] MEDS ORDERED: CYCLOBENZAPRINE HCL 10 MG TABLET PO PRN (20:29)
[2018-01-08] MEDS: ONDANSETRON HCL INJ/PF 4 MG/2 ML SDV IV PRN (20:36)
[2018-01-08] MEDS: BETHANECHOL CHLORIDE 25 MG TABLET PO SCH (21:07)
[2018-01-08] MEDS: ATORVASTATIN CALCIUM 40 MG TABLET PO SCH (21:08)
[2018-01-08] MEDS: CARVEDILOL 12.5 MG TABLET PO SCH (21:09)
[2018-01-08] MEDS: HYDROCODONE/ACETAMINOPHEN 10-325 MG TABLET PO PRN (21:34)
[2018-01-08] MEDS ORDERED: (PENDING PHARMACY ID) (Doxepin Hcl [Silenor] 6 MG) PO SCH (22:00)
[2018-01-09] MEDS: HYDROCODONE/ACETAMINOPHEN 10-325 MG TABLET PO PRN ×5 (01:16→19:42)
[2018-01-09] MEDS: ONDANSETRON HCL INJ/PF 4 MG/2 ML SDV IV PRN ×3 (02:55→20:38)
[2018-01-09] MEDS: LEVOTHYROXINE SODIUM 0.1 MG TABLET PO SCH (05:23)
[2018-01-09] MEDS: POTASSI CL 40 MEQ/NS 1L 1,000 ML IV PRN ×2 (05:23→17:59)
[2018-01-09] MEDS: LANSOPRAZOLE 30 MG TAB.RAP.DR PO SCH ×2 (05:23→18:01)
[2018-01-09] MEDS: METRONIDAZOLE 500 MG/NS RTU 100 ML IV SCH ×3 (05:25→21:19)
[2018-01-09] MEDS: OMEGA-3 ACID ETHYL ESTERS 1 GM CAPSULE PO SCH ×2 (09:40→17:59)
[2018-01-09] MEDS: LOSARTAN POTASSIUM 50 MG TABLET PO SCH (09:40)
[2018-01-09] MEDS: HYDROXYCHLOROQUINE SULFATE 200 MG TABLET PO SCH ×2 (09:41→17:59)
[2018-01-09] MEDS: CARVEDILOL 12.5 MG TABLET PO SCH ×2 (09:41→21:19)
[2018-01-09] MEDS: FUROSEMIDE 40 MG TABLET PO SCH (09:41)
[2018-01-09] MEDS: BETHANECHOL CHLORIDE 25 MG TABLET PO SCH ×2 (09:41→21:19)
--- NOTE | 2018-01-09 20:08 | PDOC H&P ---
History of Present Illness Admission Date/PCP: 01/08/18 12:40 IAN MUÑOZ MD History of Present Illness: VALENTE MUNOZ is a 62 year old female.She was just discharged 2 days ago from the hospital, she came to the office with her daughter because she said she was having diarrhea, vomiting not able to keep any food down she has had multiple hospital admission the last few weeks for similar complaints, she has recurrent urinary tract infection partly due to retention of urine, at the last hospital visit she was started on Urecholine a muscarinic agonist with the intent to enhance urinary bladder contraction and hopefully would empty her bladder and prevent recurrent UTI. Past Medical History Cardiac Medical History: Reports: Congestive Heart Failure, Coronary Artery Disease, DVT, Myocardial Infarction, Hyperlipidema, Hypertension, Pulmonary Embolism Pulmonary Medical History: Reports: Bronchitis, Chronic Obstructive Pulmonary Disease (COPD) Neurological Medical History: Denies: Seizures Endocrine Medical History: Reports: Hypothyroidism Malignancy Medical History: Reports: Cervical Cancer, Ovarian Cancer GI Medical History: Reports: Gastroesophageal Reflux Disease, Hiatal Hernia - Repaired Musculoskeltal Medical History: Reports: Arthritis - Lupus, Fibromyalgia - Lupus Psychiatric Medical History: Reports: Depression Hematology: Reports: Anemia - HX OF LOW NA AND K,LOW IRON WILL HAVE IRON TRANS FUSION 05/04. Infectious Medical History: Reports: Clostridium Difficile - Was negative in October2015. Not yet successfully collected stool, Vancomycin-Resistant Enterococci Past Surgical History Past Surgical History: Reports: Appendectomy, Cardiac Catheterization, Section, Cholecystectomy, Coronary Stent - 3 stents, Herniorrhaphy, Hysterectomy , Orthopedic Surgery - Right knee, bilateral knee replacements and hip replacement metal plate in, Tonsillectomy Social History Smoking Status: Former Smoker Frequency of Alcohol Use: Rare Hx Recreational Drug Use: No Drugs: None Hx Prescription Drug Abuse: No Family History Family History: Arthritis, COPD, Hyperlipidemia, Hypertension, Malignancy, Thyroid Disfunction Parental Family History Reviewed: Yes Children Family History Reviewed: Yes Sibling(s) Family History Reviewed.: Yes Medication/Allergy Home Medications: Atorvastatin Calcium [Lipitor 40 mg Tablet] 40 mg PO DAILY 01/08/18 Carvedilol Phosphate [Coreg CR 40 mg Ext. Release Capsule] 40 mg PO [id number] 09/27 Cyclobenzaprine HCl [Flexeril 10 mg Tablet] 10 mg PO Q8HP PRN 01/08/18 Dexlansoprazole [Dexilant 60 mg Capsule] 60 mg PO BID 01/08/18 Doxepin HCl [Silenor] 6 mg PO QHS 01/08/18 Hydrocodone Bitartrate [Zohydro ER] 40 mg PO Q12 01/08/18 Hydroxychloroquine Sulfate [Plaquenil] 200 mg PO BID 01/08/18 Levothyroxine Sodium [Synthroid 0.1 mg Tablet] 0.1 mg PO Q6AM 01/08/18 Losartan Potassium [Cozaar 50 mg Tablet] 50 mg PO DAILY 01/08/18 [place]-3 Acid Ethyl Esters [Lovaza 1 gm Capsule] 2 gm PO BID 01/08/18 Zaleplon [Sonata] 10 mg PO HSP PRN 01/08/18 Bethanechol Chloride [Urecholine 25 mg Tablet] 25 mg PO Q12 tablet 01/10/18 Allergies/Adverse Reactions: irbesartan [From Avapro] Allergy (Severe, Verified 05/03/17 09:31) swelling of face nitrofurantoin macrocrystalline [From Macrobid] Allergy (Severe, Verified 09:31) Generalized edema Penicillins Allergy (Severe, Verified 05/03/17 09:31) eyes swelled pregabalin [From Lyrica] Allergy (Severe, Verified 05/03/17 09:31) Equilibrium Issues venom-honey bee [bee venom (honey bee)] Allergy (Verified 05/03/17 09:31) Anaphylaxis Review of Systems Constitutional: PRESENT: fatigue Eyes: ABSENT: visual disturbances Ears: ABSENT: hearing changes Cardiovascular: ABSENT: chest pain, dyspnea on exertion, edema, orthropnea, palpitations Respiratory: ABSENT: cough, hemoptysis Gastrointestinal: PRESENT: diarrhea, vomiting Genitourinary: ABSENT: dysuria, hematuria Musculoskeletal: ABSENT: joint swelling Integumentary: ABSENT: rash, wounds Neurological: ABSENT: abnormal gait, abnormal speech, confusion, dizziness, focal weakness, syncope Psychiatric: PRESENT: depression. ABSENT: anxiety, homidical ideation, suicidal ideation Endocrine: ABSENT: cold intolerance, heat intolerance, menstrual abnormalities, polydipsia, polyuria Hematologic/Lymphatic: ABSENT: easy bleeding, easy bruising, lymphadenopathy Physical Exam Vital Signs: Temp Pulse Resp BP Pulse Ox 98.3 F 65 16 100/47 L 100 01/09/18 16:50 01/09/18 16:50 01/09/18 16:50 01/09/18 16:50 01/09/18 16:50 Intake & Output 01/08/18 01/09/18 01/10/18 06:59 06:59 06:59 Intake Total 918 1241 Balance 918 1241 Weight 82 kg General appearance: PRESENT: no acute distress Head exam: PRESENT: atraumatic, normocephalic Eye exam: PRESENT: conjunctiva pink, EOMI, PERRLA Ear exam: PRESENT: normal external ear exam Mouth exam: PRESENT: dry mucosa Neck exam: PRESENT: full ROM Respiratory exam: PRESENT: clear to auscultation martínez Cardiovascular exam: PRESENT: RRR, +S1, +S2 Pulses: PRESENT: normal dorsalis pedis pul, +2 pedal pulses bilateral Vascular exam: PRESENT: normal capillary refill GI/Abdominal exam: PRESENT: normal bowel sounds, soft Rectal exam: PRESENT: deferred Neurological exam: PRESENT: alert, awake, oriented to person, oriented to place , oriented to time, oriented to situation, CN II-XII grossly intact Psychiatric exam: PRESENT: appropriate affect, normal mood Skin exam: PRESENT: dry, intact, warm Results Laboratory Results: 01/08/18 16:20 01/08/18 16:20 Assessment & Plan - Diagnosis (1) Diarrhea Qualifiers: Diarrhea type: unspecified type Qualified Code(s): R19.7 - Diarrhea, unspecified Is this a current diagnosis for this admission?: Yes (2) Hypokalemia Is this a current diagnosis for this admission?: Yes Plan: She is admitted for management of severe hypokalemia, this is probably from GI losses due to diarrhea, this will be replaced she is admitted for observation
[2018-01-09] MEDS: ATORVASTATIN CALCIUM 40 MG TABLET PO SCH (21:19)
[2018-01-10] MEDS: HYDROCODONE/ACETAMINOPHEN 10-325 MG TABLET PO PRN ×5 (00:53→19:44)
[2018-01-10] MEDS: POTASSI CL 40 MEQ/NS 1L 1,000 ML IV PRN (04:19)
[2018-01-10] MEDS: LANSOPRAZOLE 30 MG TAB.RAP.DR PO SCH ×2 (05:05→18:03)
[2018-01-10] MEDS: LEVOTHYROXINE SODIUM 0.1 MG TABLET PO SCH (05:05)
[2018-01-10] MEDS: METRONIDAZOLE 500 MG/NS RTU 100 ML IV SCH ×3 (05:06→22:14)
[2018-01-10] MEDS: HYDROXYCHLOROQUINE SULFATE 200 MG TABLET PO SCH ×2 (09:53→18:02)
[2018-01-10] MEDS: OMEGA-3 ACID ETHYL ESTERS 1 GM CAPSULE PO SCH ×2 (09:53→18:02)
[2018-01-10] MEDS: BETHANECHOL CHLORIDE 25 MG TABLET PO SCH ×2 (09:53→22:21)
[2018-01-10] MEDS: LOSARTAN POTASSIUM 50 MG TABLET PO SCH (09:54)
[2018-01-10] MEDS: FUROSEMIDE 40 MG TABLET PO SCH (09:54)
[2018-01-10] MEDS: CARVEDILOL 12.5 MG TABLET PO SCH ×2 (09:54→22:19)
[2018-01-10 18:10] LABS: ABSOLUTE EOSINOPHILS # (AUTO) 0.1 10^3/uL (0.0-0.6); ABSOLUTE LYMPHOCYTES (AUTO) 1.5 10^3/uL (0.5-4.7); ABSOLUTE MONOCYTES (AUTO) 0.5 10^3/uL (0.1-1.4); ABSOLUTE NEUT (AUTO) 5.3 10^3/uL (1.7-8.2); BASOPHILS % (AUTO) 0.4 % (0-2); EOSINOPHILS % (AUTO) 1.7 % (0-6); HEMATOCRIT 34.7 % (36.0-47.0); HEMOGLOBIN 11.8 g/dL (12.0-15.5); LYMPHOCYTES % (AUTO) 19.6 % (13-45); MEAN CORPUSCULAR HEMOGLOBIN 26.5 pg (27.0-33.4); MEAN CORPUSCULAR VOLUME 78 fl (80-97); MONOCYTES % (AUTO) 6.2 % (3-13); PLATELET COUNT 323 10^3/uL (150-450); RED BLOOD COUNT 4.45 10^6/uL (3.72-5.28); RED CELL DISTRIBUTION WIDTH 15.1 % (11.5-14.0); SEGMENTED NEUTROPHILS % (AUTO) 72.1 % (42-78); TOTAL CELLS COUNTED % (AUTO) 100 %; WHITE BLOOD COUNT 7.4 10^3/uL (4.0-10.5)
[2018-01-10 18:21] LABS: ALANINE AMINOTRANSFERASE 27 U/L (9-52); ALBUMIN 3.4 g/dL (3.5-5.0); ALKALINE PHOSPHATASE 97 U/L (38-126); ANION GAP 14 (5-19); ASPARTATE AMINO TRANSFERASE 19 U/L (14-36); BILIRUBIN,DIRECT 0.2 mg/dL (0.0-0.4); BILIRUBIN,TOTAL 0.2 mg/dL (0.2-1.3); BLOOD UREA NITROGEN 11 mg/dL (7-20); CALCIUM 8.8 mg/dL (8.4-10.2); CARBON DIOXIDE 22 mmol/L (22-30); CHLORIDE 102 mmol/L (98-107); GLUCOSE 101 mg/dL (75-110); POTASSIUM 4.4 mmol/L (3.6-5.0); SODIUM 138.2 mmol/L (137-145); TOTAL PROTEIN 5.3 g/dL (6.3-8.2)
--- NOTE | 2018-01-10 20:04 | PDOC DISCHARGE SUMMARY ---
General - Admit/Disc Date/PCP Admission Date/Primary Care Provider: 01/08/18 16:58 IAN MUÑOZ MD Discharge Date: 01/11/18 - Discharge Diagnosis (1) Diarrhea Is this a current diagnosis for this admission?: Yes (2) Hypokalemia Is this a current diagnosis for this admission?: Yes (3) Systemic lupus erythematosus Is this a current diagnosis for this admission?: Yes - Additional Information Home Medications: Atorvastatin Calcium [Lipitor 40 mg Tablet] 40 mg PO DAILY 01/08/18 Carvedilol Phosphate [Coreg CR 40 mg Ext. Release Capsule] 40 mg PO [id number] 09/27 Cyclobenzaprine HCl [Flexeril 10 mg Tablet] 10 mg PO Q8HP PRN 01/08/18 Dexlansoprazole [Dexilant 60 mg Capsule] 60 mg PO BID 01/08/18 Doxepin HCl [Silenor] 6 mg PO QHS 01/08/18 Hydrocodone Bitartrate [Zohydro ER] 40 mg PO Q12 01/08/18 Hydroxychloroquine Sulfate [Plaquenil] 200 mg PO BID 01/08/18 Levothyroxine Sodium [Synthroid 0.1 mg Tablet] 0.1 mg PO Q6AM 01/08/18 Losartan Potassium [Cozaar 50 mg Tablet] 50 mg PO DAILY 01/08/18 [place]-3 Acid Ethyl Esters [Lovaza 1 gm Capsule] 2 gm PO BID 01/08/18 Zaleplon [Sonata] 10 mg PO HSP PRN 01/08/18 Bethanechol Chloride [Urecholine 25 mg Tablet] 25 mg PO Q12 tablet 01/10/18 History of Present Illness History of Present Illness: VALENTE MUNOZ is a 62 year old female.She was just discharged 2 days ago from the hospital, she came to the office with her daughter because she said she was having diarrhea, vomiting not able to keep any food down she has had multiple hospital admission the last few weeks for similar complaints, she has recurrent urinary tract infection partly due to retention of urine, at the last hospital visit she was started on Urecholine a muscarinic agonist with the intent to enhance urinary bladder contraction and hopefully would empty her bladder and prevent recurrent UTI. Hospital Course Hospital Course: She was admitted for the management of hypokalemia presumably due to diarrhea. She was brought in for observation, throughout hospital stay there was no passage of loose stool or diarrhea. The potassium was replaced, she will be discharge home today Physical Exam Vital Signs: Temp Pulse Resp BP Pulse Ox 97.7 F 71 18 105/60 100 01/10/18 15:24 01/10/18 19:00 01/10/18 15:24 01/10/18 15:24 01/10/18 15:24 Intake & Output 01/09/18 01/10/18 01/11/18 06:59 06:59 06:59 Intake Total 918 1678 237 Output Total 4 Balance 918 1678 233 Weight 82 kg 83.9 kg General appearance: PRESENT: no acute distress Head exam: PRESENT: atraumatic, normocephalic Eye exam: PRESENT: conjunctiva pink, EOMI, PERRLA Ear exam: PRESENT: normal external ear exam Mouth exam: PRESENT: moist, tongue midline Neck exam: PRESENT: full ROM Respiratory exam: PRESENT: clear to auscultation martínez Cardiovascular exam: PRESENT: RRR, +S1, +S2 Pulses: PRESENT: normal dorsalis pedis pul, +2 pedal pulses bilateral Vascular exam: PRESENT: normal capillary refill GI/Abdominal exam: PRESENT: normal bowel sounds, soft Rectal exam: PRESENT: deferred Neurological exam: PRESENT: alert, awake, oriented to person, oriented to place , oriented to time, oriented to situation, CN II-XII grossly intact Psychiatric exam: PRESENT: appropriate affect, normal mood Skin exam: PRESENT: dry, intact, warm Results Laboratory Results: 01/10/18 17:50 01/10/18 17:50 01/10/18 01/10/18 17:50 17:50 WBC 7.4 RBC 4.45 Hgb 11.8 L Hct 34.7 L MCV 78 L MCH 26.5 L MCHC 34.0 RDW 15.1 H Plt Count 323 Seg Neutrophils % 72.1 Lymphocytes % 19.6 Monocytes % 6.2 Eosinophils % 1.7 Basophils % 0.4 Absolute Neutrophils 5.3 Absolute Lymphocytes 1.5 Absolute Monocytes 0.5 Absolute Eosinophils 0.1 Absolute Basophils 0.0 Sodium 138.2 Potassium 4.4 Chloride 102 Carbon Dioxide 22 Anion Gap 14 BUN 11 Creatinine 0.97 Est GFR ( Amer) > 60 Est GFR (Non-Af Amer) 58 L Glucose 101 Calcium 8.8 Total Bilirubin 0.2 AST 19 ALT 27 Alkaline Phosphatase 97 Total Protein 5.3 L Albumin 3.4 L Qualifiers - * PATIENT BEING DISCHARGED WITH ANY OF THE FOLLOWING DIAGNOSIS: No
[2018-01-10] MEDS: ATORVASTATIN CALCIUM 40 MG TABLET PO SCH (22:19)
[2018-01-11] MEDS: HYDROCODONE/ACETAMINOPHEN 10-325 MG TABLET PO PRN (06:08)
[2018-01-11] MEDS: LANSOPRAZOLE 30 MG TAB.RAP.DR PO SCH (06:08)
[2018-01-11] MEDS: LEVOTHYROXINE SODIUM 0.1 MG TABLET PO SCH (06:08)
[2018-01-11] MEDS: METRONIDAZOLE 500 MG/NS RTU 100 ML IV SCH (06:09)
--- NOTE | 2018-01-11 08:25 | Physician Advisory Note ---
Physician Advisor ProgressNote .: Pursuant to the plan for On License Of [facility], I have reviewed the medical record for this patient. Physician Advisor Statement: Please specify, if possible, the most likely/possible cause of pt's diarrhea. Thanks! CK
[2018-01-11 09:34] VITALS: BP 131/52
== END 2018-01-11 09:56 | disposition home or self-care (01) | DRG 641 ==
LOC: 3S 12:40 → OBSVTOIN 16:58
PROVIDERS: ADMIT Internal Medicine; ATTEND Internal Medicine
DX: E87.6 Hypokalemia (principal); N39.0 Urinary tract infection, site not specified; R19.7 Diarrhea, unspecified; E86.0 Dehydration; M32.9 Systemic lupus erythematosus, unspecified; I50.9 Heart failure, unspecified; I25.10 Atherosclerotic heart disease of native coronary artery without angina pectoris; E78.00 Pure hypercholesterolemia, unspecified; I10 Essential (primary) hypertension; J44.9 Chronic obstructive pulmonary disease, unspecified; E03.9 Hypothyroidism, unspecified; K21.9 Gastro-esophageal reflux disease without esophagitis; F32.9 Major depressive disorder, single episode, unspecified; D64.9 Anemia, unspecified; M96.1 Postlaminectomy syndrome, not elsewhere classified; G89.4 Chronic pain syndrome; Z96.653 Presence of artificial knee joint, bilateral; Z96.649 Presence of unspecified artificial hip joint; I25.2 Old myocardial infarction; Z86.718 Personal history of other venous thrombosis and embolism; Z79.899 Other long term (current) drug therapy; Z86.711 Personal history of pulmonary embolism; Z85.41 Personal history of malignant neoplasm of cervix uteri; Z85.43 Personal history of malignant neoplasm of ovary; Z90.49 Acquired absence of other specified parts of digestive tract; Z95.5 Presence of coronary angioplasty implant and graft; Z90.710 Acquired absence of both cervix and uterus; Z87.891 Personal history of nicotine dependence; Z82.61 Family history of arthritis; Z83.6 Family history of other diseases of the respiratory system; Z80.9 Family history of malignant neoplasm, unspecified; Z82.49 Family history of ischemic heart disease and other diseases of the circulatory system; Z88.0 Allergy status to penicillin; Z88.8 Allergy status to other drugs, medicaments and biological substances; Z88.6 Allergy status to analgesic agent; Z88.3 Allergy status to other anti-infective agents; Z91.030 Bee allergy status
CPT/HCPCS: 36415; 80048; 80053; 80076; 85025; G0378; G0379; G8978-GP; G8979-GP; J1642; J2405; J3480; J3490; J7030

== ENCOUNTER 2018-01-11 17:06 | Emergency (ER) | payer MEDICARE, OTHER ==
[2018-01-11] MEDS ORDERED: ONDANSETRON HCL INJ/PF 4 MG/2 ML SDV IV ONE (17:50)
[2018-01-11] MEDS ORDERED: FENTANYL CITRATE INJ/PF 100 MCG/2 ML AMPUL IV ONE (17:50)
--- NOTE | 2018-01-11 17:52 | ER Document Report ---
ED Medical Screen (RME) - General Chief Complaint: Hip Pain Stated Complaint: FALL/RIGHT HIP PAIN Time Seen by Provider: 01/11/18 17:44 Notes: 62-year-old female patient who had right hip replaced in July 2017, was recently admitted for nausea vomiting diarrhea. She left the hospital this morning because she wanted to go home although she was still symptomatic with the nausea and vomiting. While at home she was very weak and when she got up to go to the bathroom, she fell landing on the right hip. She is complaining of pain to the right posterior hip region. Brief exam shows there is no pain to internally externally rotate the joint or to lift the thigh up and down passively. There is considerable pain if she tries to actively move the hip using her muscles. I have greeted and performed a rapid initial assessment of this patient. A comprehensive ED assessment and evaluation of the patient, analysis of test results and completion of the medical decision making process will be conducted by additional ED providers. TRAVEL OUTSIDE OF THE [place] IN LAST 30 DAYS: No - Related Data Allergies/Adverse Reactions: irbesartan [From Avapro] Allergy (Severe, Verified 01/11/18 17:45) swelling of face nitrofurantoin macrocrystalline [From Macrobid] Allergy (Severe, Verified 17:45) Generalized edema Penicillins Allergy (Severe, Verified 01/11/18 17:45) eyes swelled pregabalin [From Lyrica] Allergy (Severe, Verified 01/11/18 17:45) Equilibrium Issues venom-honey bee [bee venom (honey bee)] Allergy (Verified 01/11/18 17:45) Anaphylaxis Past Medical History - Past Medical History Cardiac Medical History: Reports: Hx Congestive Heart Failure, Hx Coronary Artery Disease, Hx DVT, Hx Heart Attack, Hx Hypercholesterolemia, Hx Hypertension, Hx Pulmonary Embolism Pulmonary Medical History: Reports: Hx Bronchitis, Hx COPD Denies: Hx Asthma, Hx Pneumonia, Hx Tuberculosis Neurological Medical History: Denies: Hx Cerebrovascular Accident, Hx Seizures Endocrine Medical History: Reports: Hx Hypothyroidism Renal/ Medical History: Reports: Hx Ovarian Cysts. Denies: Hx End Stage Renal Disease, Hx Kidney Stones, Hx Peritoneal Dialysis Malignancy Medical History: Reports: Hx Cervical Cancer, Hx Ovarian Cancer GI Medical History: Reports: Hx Gastroesophageal Reflux Disease, Hx Hiatal Hernia - Repaired, Hx Irritable Bowel, Hx Colonoscopy, Hx Endoscopy. Denies: Hx Cirrhosis, Hx Pancreatitis, Hx Ulcer Musculoskeltal Medical History: Reports Hx Arthritis - Lupus, Reports Hx Fibromyalgia - Lupus, Denies Hx Multiple Sclerosis, Reports Hx Musculoskeletal Deformity, Reports Hx Musculoskeletal Trauma Skin Medical History: Reports Hx Cellulitis - Recently treated, right breast Psychiatric Medical History: Reports: Hx Anxiety, Hx Depression Denies: Hx Bipolar Disorder, Hx Dementia, Hx Post Traumatic Stress Disorder, Hx Schizophrenia Traumatic Medical History: Reports: Hx Fractures - Knee and hip Infectious Medical History: Reports: Hx C-Diff - Was negative in October2015. Not yet successfully collected stool, Hx VRE Past Surgical History: Reports: Hx Appendectomy, Hx Bowel Surgery - Polyps, adhesions, Hx Cardiac Catheterization, Hx Cardiac Surgery - 2 stents 2014, Hx Section, Hx Cholecystectomy, Hx Coronary Stent - 3 stents, Hx Herniorrhaphy, Hx Hysterectomy, Hx Orthopedic Surgery - Right knee, bilateral knee replacements and hip replacement metal plate in, Hx Tonsillectomy. Denies : Hx Open Heart Surgery - Immunizations Immunizations up to date: Yes History of Influenza Vaccine for 06/2017 - 11/2017 Season: Yes Influenza Administration Date for 06/2017 - 11/2017 Season: 06/10/17 Physical Exam - Vital signs Vitals: Temp Pulse Resp BP Pulse Ox 98.5 F 94 16 138/88 H 97 01/11/18 17:27 01/11/18 17:27 01/11/18 17:27 01/11/18 17:27 01/11/18 17:27 Course - Vital Signs Vital signs: Temp Pulse Resp BP Pulse Ox 98.5 F 94 16 138/88 H 97 01/11/18 17:27 01/11/18 17:27 01/11/18 17:27 01/11/18 17:27 01/11/18 17:27
--- NOTE | 2018-01-11 18:18 | RADIOLOGY REPORT (SQ) ---
EXAM DESCRIPTION: HIP RIGHT AP/LATERAL COMPLETED DATE/TIME: 01/11/2018 6:09 pm REASON FOR STUDY: Fall, right hip pain, S/P R hip replacement COMPARISON: CT 12/28/2017 NUMBER OF VIEWS: Two views. TECHNIQUE: AP pelvis and additional frog-leg view of the right hip. LIMITATIONS: None. FINDINGS: MINERALIZATION: Normal. RIGHT HIP: Prior hip replacement. Device appears appropriate. LEFT HIP: No fracture or dislocation. No worrisome bone lesions. PUBIS AND ISCHIUM: No fracture. PELVIS: No fracture. SACRUM: No fracture or dislocation. No worrisome bone lesions. LOWER LUMBAR SPINE: Prior surgery. SOFT TISSUES: Rosy. OTHER: Neurostimulator. IMPRESSION: Right total hip replacement. No acute findings. TECHNICAL DOCUMENTATION: JOB ID: [id number] appening- All Rights Reserved Reading location - IP/workstation name: [email or web address]
[2018-01-11] MEDS ORDERED: NORMAL SALINE 1000 ML 1,000 ML IV ONE (19:45)
[2018-01-11 20:08] LABS: ABSOLUTE LYMPHOCYTES (AUTO) 1.3 10^3/uL (0.5-4.7); ABSOLUTE MONOCYTES (AUTO) 0.4 10^3/uL (0.1-1.4); ABSOLUTE NEUT (AUTO) 5.4 10^3/uL (1.7-8.2); BASOPHILS % (AUTO) 0.5 % (0-2); EOSINOPHILS % (AUTO) 0.4 % (0-6); HEMATOCRIT 36.3 % (36.0-47.0); HEMOGLOBIN 12.3 g/dL (12.0-15.5); LYMPHOCYTES % (AUTO) 18.4 % (13-45); MEAN CORPUSCULAR HEMOGLOBIN 26.4 pg (27.0-33.4); MEAN CORPUSCULAR HGB CONC 33.9 g/dL (32.0-36.0); MEAN CORPUSCULAR VOLUME 78 fl (80-97); MONOCYTES % (AUTO) 6.1 % (3-13); PLATELET COUNT 343 10^3/uL (150-450); RED BLOOD COUNT 4.66 10^6/uL (3.72-5.28); RED CELL DISTRIBUTION WIDTH 14.9 % (11.5-14.0); SEGMENTED NEUTROPHILS % (AUTO) 74.6 % (42-78); TOTAL CELLS COUNTED % (AUTO) 100 %; WHITE BLOOD COUNT 7.3 10^3/uL (4.0-10.5)
--- NOTE | 2018-01-11 20:08 | ER Document Report ---
ED General - General Chief Complaint: Hip Pain Stated Complaint: FALL/RIGHT HIP PAIN Time Seen by Provider: 01/11/18 17:44 Notes: Patient is a 62-year-old female with complex medical history as recorded who presents after being discharged earlier today after a presyncopal event. The patient reports that she became very lightheaded and generally weak while walking next to her daughter. She states that her daughter helped her fall to the ground when she could not walk any further but she still landed on her left hip and buttock. Since that time she has had a dull, constant, throbbing pain to the affected area. Nothing improves or worsens the pain. She has been able to bear weight and walk since that time. She states that when she was discharged this morning she cannot tolerate oral intake and continues to have difficulty tolerating any form of oral intake even water. She also notes that she continues to have watery diarrhea. She states that she feels her lightheadedness is due to poor oral intake and dehydration. Her daughter did contact Dr. Muñoz's office and they instructed her to come to the emergency department. Family reports that her presentation is overall similar to what had her hospitalized for the past 2 weeks. TRAVEL OUTSIDE OF THE [place] IN LAST 30 DAYS: No - Related Data Allergies/Adverse Reactions: irbesartan [From Avapro] Allergy (Severe, Verified 01/11/18 17:45) swelling of face nitrofurantoin macrocrystalline [From Macrobid] Allergy (Severe, Verified 17:45) Generalized edema Penicillins Allergy (Severe, Verified 01/11/18 17:45) eyes swelled pregabalin [From Lyrica] Allergy (Severe, Verified 01/11/18 17:45) Equilibrium Issues venom-honey bee [bee venom (honey bee)] Allergy (Verified 01/11/18 17:45) Anaphylaxis Past Medical History - General Information source: Patient - Social History Smoking Status: Never Smoker Chew tobacco use (# tins/day): No Frequency of alcohol use: None Drug Abuse: None Lives with: Family Family History: Arthritis, COPD, Hyperlipidemia, Hypertension, Malignancy, Thyroid Disfunction Patient has suicidal ideation: No Patient has homicidal ideation: No - Past Medical History Cardiac Medical History: Reports: Hx Congestive Heart Failure, Hx Coronary Artery Disease, Hx DVT, Hx Heart Attack, Hx Hypercholesterolemia, Hx Hypertension, Hx Pulmonary Embolism Pulmonary Medical History: Reports: Hx Bronchitis, Hx COPD Denies: Hx Asthma, Hx Pneumonia, Hx Tuberculosis Neurological Medical History: Denies: Hx Cerebrovascular Accident, Hx Seizures Endocrine Medical History: Reports: Hx Hypothyroidism Renal/ Medical History: Reports: Hx Ovarian Cysts. Denies: Hx End Stage Renal Disease, Hx Kidney Stones, Hx Peritoneal Dialysis Malignancy Medical History: Reports: Hx Cervical Cancer, Hx Ovarian Cancer GI Medical History: Reports: Hx Gastroesophageal Reflux Disease, Hx Hiatal Hernia - Repaired, Hx Irritable Bowel, Hx Colonoscopy, Hx Endoscopy. Denies: Hx Cirrhosis, Hx Pancreatitis, Hx Ulcer Musculoskeltal Medical History: Reports Hx Arthritis - Lupus, Reports Hx Fibromyalgia - Lupus, Denies Hx Multiple Sclerosis, Reports Hx Musculoskeletal Deformity, Reports Hx Musculoskeletal Trauma Skin Medical History: Reports Hx Cellulitis - Recently treated, right breast Psychiatric Medical History: Reports: Hx Anxiety, Hx Depression Denies: Hx Bipolar Disorder, Hx Dementia, Hx Post Traumatic Stress Disorder, Hx Schizophrenia Traumatic Medical History: Reports: Hx Fractures - Knee and hip Infectious Medical History: Reports: Hx C-Diff - Was negative in October2015. Not yet successfully collected stool, Hx VRE Past Surgical History: Reports: Hx Appendectomy, Hx Bowel Surgery - Polyps, adhesions, Hx Cardiac Catheterization, Hx Cardiac Surgery - 2 stents 2014, Hx Section, Hx Cholecystectomy, Hx Coronary Stent - 3 stents, Hx Genitourinary Surgery - bladder sling, Hx Herniorrhaphy, Hx Hysterectomy, Hx Orthopedic Surgery - Right knee, bilateral knee replacements and hip replacement metal plate in, Hx Tonsillectomy. Denies: Hx Open Heart Surgery - Immunizations Immunizations up to date: Yes Hx Pneumococcal Vaccination: 05/20/11 Review of Systems - Review of Systems Notes: Constitutional: Negative for fever. Positive for generalized weakness HENT: Negative for sore throat. Eyes: Negative for visual changes. Cardiovascular: Negative for chest pain. Respiratory: Negative for shortness of breath. Gastrointestinal: Positive for abdominal cramping, nausea, vomiting and diarrhea Genitourinary: Negative for dysuria. Musculoskeletal: Negative for back pain. Skin: Negative for rash. Neurological: Negative for headaches, weakness or numbness. 10 point ROS negative except as marked above and in HPI. Physical Exam - Vital signs Vitals: Temp Pulse Resp BP Pulse Ox 98.5 F 94 16 138/88 H 97 05/04/18 17:27 01/11/18 17:27 01/11/18 17:27 01/11/18 17:27 01/11/18 17:27 Interpretation: Normal Notes: PHYSICAL EXAMINATION: GENERAL: Somewhat pale, appears slightly uncomfortable but no acute distress HEAD: Atraumatic, normocephalic. EYES: Pupils equal round and reactive to light, extraocular movements intact, sclera anicteric, conjunctiva are normal. ENT: nares patent, oropharynx clear without exudates. Moderately dry mucous membranes. NECK: Normal range of motion, supple without lymphadenopathy LUNGS: Breath sounds clear to auscultation bilaterally and equal. No wheezes rales or rhonchi. HEART: Regular rate and rhythm without murmurs ABDOMEN: Soft, nontender, normoactive bowel sounds. No guarding, no rebound. No masses appreciated. EXTREMITIES: Full range of motion of the bilateral hips, mild pain with axial loading and internal rotation on right. No pitting or edema. No cyanosis. NEUROLOGICAL: No focal neurological deficits. Moves all extremities spontaneously and on command. PSYCH: Normal mood, normal affect. SKIN: Warm, Dry, normal turgor, no rashes or lesions noted. Course - Re-evaluation Re-evalutation: 01/11/18 20:07 Patient presents after being discharged from the hospital several hours ago after a near syncopal episode in which she states she became so weak she can hardly stand and fell to the ground landing on her right hip. X-ray of the hip is unremarkable without any evidence of an acute fracture or hardware displacement. The patient reports that she was unable to tolerate oral intake prior to discharge today and continues to be unable to tolerate even fluids which is likely the source of her general weakness. On examination she has no focal abdominal tenderness to suggest acute biliary pathology, bowel obstruction , acute appendicitis or mesenteric ischemia. She was treated for Clostridium difficile colitis with IV metronidazole per the family report was apparently never advanced to oral vancomycin and reports that she continues to have diarrhea and regular abdominal cramping. Will access her port, provide IV fluids, obtain basic laboratories, repeat C. difficile assay testing and contact her primary doctor for hospitalization as patient continues to be able to unable to tolerate oral intake and continues to be so weak that she can hardly walk. 01/11/18 20:[address] Mike who is on-call for Dr. Muñoz and based on her reassuring labs and vitals he does not believe that she requires readmission to the hospital. He has recommended that she be discharged home on oral antiemetics and oral vancomycin. I am attempting contact Dr. Muñoz to ensure that he is comfortable with this plan as apparently he communicated to the patient that should she return to the hospital he believes she would require readmission. However I have been unable to reach him. I discussed this with the patient and she is comfortable with discharge home. Will start oral vancomycin given her ongoing diarrhea. She has antiemetics at home. At this time will discharge with return precautions and follow-up recommendations. Verbal discharge instructions given a the bedside and opportunity for questions given. Medication warnings reviewed. Patient is in agreement with this plan and has verbalized understanding of return precautions and the need for primary care follow-up in the next 24-72 hours. - Vital Signs Vital signs: Temp Pulse Resp BP Pulse Ox 98.5 F 94 16 138/88 H 97 01/11/18 17:27 01/11/18 17:27 01/11/18 17:27 01/11/18 17:27 01/11/18 17:27 - Laboratory Result Diagrams: 01/11/18 19:57 01/11/18 19:57 Laboratory results interpreted by me: 01/11/18 01/11/18 01/11/18 19:57 19:57 20:13 MCV 78 L MCH 26.4 L RDW 14.9 H Sodium 135.1 L Glucose 71 L Total Protein 6.0 L Urine Ketones TRACE H Urine Blood SMALL H Urine Nitrite POSITIVE H Ur Leukocyte Esterase SMALL H - Diagnostic Test Radiology reviewed: Image reviewed, Reports reviewed Radiology results interpreted by me: 01/11/18 20:08 Right hip x-ray: No hardware displacement or acute fracture. Discharge - Discharge Clinical Impression: C. difficile colitis, Pre-syncope Diarrhea Qualifiers: Diarrhea type: presumed infectious Qualified Code(s): R19.7 - Diarrhea, unspecified Fall Qualifiers: Encounter type: initial encounter Qualified Code(s): W19.XXXA - Unspecified fall, initial encounter Blunt trauma of right hip Qualifiers: Encounter type: initial encounter Qualified Code(s): S79.811A - Other specified injuries of right hip, initial encounter Condition: Stable Disposition: HOME, SELF-CARE Additional Instructions: Please follow-up with Dr. Muñoz in the office on Sunday. Your being started on oral vancomycin given your ongoing diarrhea and vomiting as this does suggest that your C. difficile has not cleared. Please return to the emergency department sooner if you continue to have persistent vomiting, pass out, worsening pain, or have any other symptoms that are worrisome to you. Prescriptions: Vancomycin HCl [Vancocin HCl] 125 mg PO Q6H #40 capsule Referrals: IAN MUÑOZ MD [Primary Care Provider] - 01/14/18
[2018-01-11 20:33] LABS: ALANINE AMINOTRANSFERASE 28 U/L (9-52); ALBUMIN 3.7 g/dL (3.5-5.0); ALKALINE PHOSPHATASE 112 U/L (38-126); ANION GAP 10 (5-19); ASPARTATE AMINO TRANSFERASE 32 U/L (14-36); BILIRUBIN,DIRECT 0.2 mg/dL (0.0-0.4); BILIRUBIN,TOTAL 0.3 mg/dL (0.2-1.3); BLOOD UREA NITROGEN 10 mg/dL (7-20); CALCIUM 9.6 mg/dL (8.4-10.2); CARBON DIOXIDE 24 mmol/L (22-30); CHLORIDE 101 mmol/L (98-107); GLUCOSE 71 mg/dL (75-110); POTASSIUM 4.1 mmol/L (3.6-5.0); SODIUM 135.1 mmol/L (137-145)
[2018-01-11 20:48] LABS: APPEARANCE,URINE SLIGHTLY-CLOUDY; BILIRUBIN,URINE NEGATIVE (NEGATIVE); COLOR,URINE YELLOW; GLUCOSE, URINE NEGATIVE (NEGATIVE); KETONES,URINE TRACE mg/dL (NEGATIVE); LEUKOCYTE ESTERASE,URINE SMALL (NEGATIVE); NITRITE,URINE POSITIVE (NEGATIVE); PROTEIN,URINE NEGATIVE (NEGATIVE); URINE SPECIFIC GRAVITY 1.009; UROBILINOGEN,URINE NEGATIVE mg/dL (<2.0)
[2018-01-11] MEDS ORDERED: VANCOMYCIN HCL INJ 500 MG VIAL PO ONE (21:00)
[2018-01-11] MEDS ORDERED: MORPHINE SULFATE IR 15 MG TABLET PO ONE (21:00)
--- NOTE | 2018-01-11 21:47 | EKG REPORT ---
SEVERITY:- BORDERLINE ECG - SINUS RHYTHM LOW VOLTAGE THROUGHOUT : Confirmed by: Ellen Gutierrez 11-Jan-2018 21:47:06
[2018-01-11 22:04] VITALS: BP 149/92
== END 2018-01-11 22:04 | disposition home or self-care (01) ==
LOC: ER 17:06
DX: S79.911A Unspecified injury of right hip, initial encounter (principal); M25.551 Pain in right hip; W18.39XA Other fall on same level, initial encounter; Y92.009 Unspecified place in unspecified non-institutional (private) residence as the place of occurrence of the external cause; A04.72 Enterocolitis due to Clostridium difficile, not specified as recurrent; R55 Syncope and collapse; R53.1 Weakness; R10.9 Unspecified abdominal pain; I25.10 Atherosclerotic heart disease of native coronary artery without angina pectoris; I10 Essential (primary) hypertension; J44.9 Chronic obstructive pulmonary disease, unspecified; Z96.641 Presence of right artificial hip joint; Z88.8 Allergy status to other drugs, medicaments and biological substances; Z88.0 Allergy status to penicillin; Z88.6 Allergy status to analgesic agent; Z87.892 Personal history of anaphylaxis; Z91.030 Bee allergy status; Z95.5 Presence of coronary angioplasty implant and graft; Z85.41 Personal history of malignant neoplasm of cervix uteri; Z85.43 Personal history of malignant neoplasm of ovary
CPT/HCPCS: 93005; 36591; 99284; 96361; 96374; 96375; 36415; 85025; 80053; 81001; 84484; 87493; 73502; 93010; J3010; J2405; J3370; J7030; A9270

== ENCOUNTER 2018-02-03 14:04 | Emergency (ER) | payer MEDICARE, OTHER ==
[2018-02-03 14:13] VITALS: BP 106/78
[2018-02-03] MEDS ORDERED: ONDANSETRON 4 MG TAB.RAPDIS PO ONE (14:59)
[2018-02-03] MEDS ORDERED: OXYCODONE HCL IR 5 MG TABLET PO ONE (14:59)
--- NOTE | 2018-02-03 15:01 | ER Document Report ---
ED Medical Screen (RME) - General Chief Complaint: Flank Pain Stated Complaint: FLANK PAIN Time Seen by Provider: 02/03/18 14:56 Notes: RAPID MEDICAL EVALUATION DISCLOSURE I have seen this patient as part of a Rapid Medical Evaluation and, if applicable, placed any initially appropriate orders. The patient will be seen and fully evaluated, including a full history and physical exam, by a provider ( in Main ED or Fast Track) when a room becomes available. 62-year-old female PMH pyelonephritis here with complaints of bilateral lower back pain dysuria frequency hesitancy fevers to 103 Fahrenheit ongoing for the past few days. She states that she has gone into "kidney failure" with her previous kidney infections and so she came today because she did not want to take any chances. She has been using Tylenol and Motrin which have helped resolve the fever. Denies any abdominal pain diarrhea nausea vomiting. EXAM CTAB RRR No abdominal TTP TRAVEL OUTSIDE OF THE [place] IN LAST 30 DAYS: No - Related Data Allergies/Adverse Reactions: irbesartan [From Avapro] Allergy (Severe, Verified 02/03/18 14:05) swelling of face nitrofurantoin macrocrystalline [From Macrobid] Allergy (Severe, Verified 14:05) Generalized edema Penicillins Allergy (Severe, Verified 02/03/18 14:05) eyes swelled pregabalin [From Lyrica] Allergy (Severe, Verified 02/03/18 14:05) Equilibrium Issues venom-honey bee [bee venom (honey bee)] Allergy (Verified 02/03/18 14:05) Anaphylaxis Past Medical History - Past Medical History Cardiac Medical History: Reports: Hx Congestive Heart Failure, Hx Coronary Artery Disease, Hx DVT, Hx Heart Attack, Hx Hypercholesterolemia, Hx Hypertension, Hx Pulmonary Embolism Pulmonary Medical History: Reports: Hx Bronchitis, Hx COPD Denies: Hx Asthma, Hx Pneumonia, Hx Tuberculosis Neurological Medical History: Denies: Hx Cerebrovascular Accident, Hx Seizures Endocrine Medical History: Reports: Hx Hypothyroidism Renal/ Medical History: Reports: Hx Ovarian Cysts. Denies: Hx End Stage Renal Disease, Hx Kidney Stones, Hx Peritoneal Dialysis Malignancy Medical History: Reports: Hx Cervical Cancer, Hx Ovarian Cancer GI Medical History: Reports: Hx Gastroesophageal Reflux Disease, Hx Hiatal Hernia - Repaired, Hx Irritable Bowel, Hx Colonoscopy, Hx Endoscopy. Denies: Hx Cirrhosis, Hx Pancreatitis, Hx Ulcer Musculoskeltal Medical History: Reports Hx Arthritis - Lupus, Reports Hx Fibromyalgia - Lupus, Denies Hx Multiple Sclerosis, Reports Hx Musculoskeletal Deformity, Reports Hx Musculoskeletal Trauma Skin Medical History: Reports Hx Cellulitis - Recently treated, right breast Psychiatric Medical History: Reports: Hx Anxiety, Hx Depression Denies: Hx Bipolar Disorder, Hx Dementia, Hx Post Traumatic Stress Disorder, Hx Schizophrenia Traumatic Medical History: Reports: Hx Fractures - Knee and hip Infectious Medical History: Reports: Hx C-Diff - Was negative in October2015. Not yet successfully collected stool, Hx VRE Past Surgical History: Reports: Hx Appendectomy, Hx Bowel Surgery - Polyps, adhesions, Hx Cardiac Catheterization, Hx Cardiac Surgery - 2 stents 2014, Hx Section, Hx Cholecystectomy, Hx Coronary Stent - 3 stents, Hx Genitourinary Surgery - bladder sling, Hx Herniorrhaphy, Hx Hysterectomy, Hx Orthopedic Surgery - Right knee, bilateral knee replacements and hip replacement metal plate in, Hx Tonsillectomy. Denies: Hx Open Heart Surgery - Immunizations Immunizations up to date: Yes History of Influenza Vaccine for 06/2017 - 11/2017 Season: Yes Influenza Administration Date for 06/2017 - 11/2017 Season: 06/10/17 Physical Exam - Vital signs Vitals: Temp Pulse Resp BP Pulse Ox 98.2 F 100 18 106/78 94 02/03/18 14:11 02/03/18 14:11 02/03/18 14:11 02/03/18 14:11 02/03/18 14:11 Course - Vital Signs Vital signs: Temp Pulse Resp BP Pulse Ox 98.2 F 100 18 106/78 94 02/03/18 14:11 02/03/18 14:11 02/03/18 14:11 02/03/18 14:11 02/03/18 14:11
[2018-02-03 17:08] LABS: ABSOLUTE EOSINOPHILS # (AUTO) 0.1 10^3/uL (0.0-0.6); ABSOLUTE LYMPHOCYTES (AUTO) 0.7 10^3/uL (0.5-4.7); ABSOLUTE MONOCYTES (AUTO) 0.5 10^3/uL (0.1-1.4); ABSOLUTE NEUT (AUTO) 6.4 10^3/uL (1.7-8.2); BASOPHILS % (AUTO) 0.6 % (0-2); HEMATOCRIT 38.5 % (36.0-47.0); HEMOGLOBIN 13.2 g/dL (12.0-15.5); LYMPHOCYTES % (AUTO) 8.6 % (13-45); MEAN CORPUSCULAR HEMOGLOBIN 26.5 pg (27.0-33.4); MEAN CORPUSCULAR HGB CONC 34.3 g/dL (32.0-36.0); MEAN CORPUSCULAR VOLUME 77 fl (80-97); MONOCYTES % (AUTO) 6.9 % (3-13); PLATELET COUNT 263 10^3/uL (150-450); RED BLOOD COUNT 4.99 10^6/uL (3.72-5.28); SEGMENTED NEUTROPHILS % (AUTO) 82.9 % (42-78); TOTAL CELLS COUNTED % (AUTO) 100 %; WHITE BLOOD COUNT 7.8 10^3/uL (4.0-10.5)
[2018-02-03 17:25] LABS: ALANINE AMINOTRANSFERASE 25 U/L (9-52); ALBUMIN 4.1 g/dL (3.5-5.0); ALKALINE PHOSPHATASE 110 U/L (38-126); ANION GAP 16 (5-19); ASPARTATE AMINO TRANSFERASE 18 U/L (14-36); BILIRUBIN,DIRECT 0.4 mg/dL (0.0-0.4); BILIRUBIN,TOTAL 0.7 mg/dL (0.2-1.3); BLOOD UREA NITROGEN 15 mg/dL (7-20); CALCIUM 9.2 mg/dL (8.4-10.2); CARBON DIOXIDE 19 mmol/L (22-30); CHLORIDE 100 mmol/L (98-107); GLUCOSE 104 mg/dL (75-110); LIPASE 19.5 U/L (23-300); POTASSIUM 3.5 mmol/L (3.6-5.0); SODIUM 135.3 mmol/L (137-145); TOTAL PROTEIN 6.7 g/dL (6.3-8.2)
[2018-02-03] MEDS ORDERED: SULFAMETHOXAZOLE/TRIMETHOPRIM 800-160 MG TABLET PO ONE (17:35)
[2018-02-03] MEDS ORDERED: PHENAZOPYRIDINE HCL 200 MG TABLET PO ONE (17:36)
--- NOTE | 2018-02-03 17:38 | ER Document Report ---
ED GI/ - General Chief Complaint: Flank Pain Stated Complaint: FLANK PAIN Time Seen by Provider: 02/03/18 14:56 Notes: The patient is a 62-year-old female, past medical history frequent UTIs that grew out ESBL Klebsiella, prior kidney stones, presents with 3 days of worsening bilateral flank pain, similar to her episodes of pyelonephritis. She said this does not feel like her kidney stone episodes. She also had a fever to 102 last night, which resolved after Tylenol. She denies nausea, vomiting, diarrhea, constipation or hematuria. TRAVEL OUTSIDE OF THE [place] IN LAST 30 DAYS: No - Related Data Allergies/Adverse Reactions: irbesartan [From Avapro] Allergy (Severe, Verified 02/03/18 14:05) swelling of face nitrofurantoin macrocrystalline [From Macrobid] Allergy (Severe, Verified 14:05) Generalized edema Penicillins Allergy (Severe, Verified 02/03/18 14:05) eyes swelled pregabalin [From Lyrica] Allergy (Severe, Verified 02/03/18 14:05) Equilibrium Issues venom-honey bee [bee venom (honey bee)] Allergy (Verified 02/03/18 14:05) Anaphylaxis Past Medical History - General Information source: Patient, Relative - Social History Smoking Status: Former Smoker Chew tobacco use (# tins/day): No Frequency of alcohol use: Occasional Drug Abuse: None Family History: Arthritis, COPD, Hyperlipidemia, Hypertension, Malignancy, Thyroid Disfunction Patient has suicidal ideation: No Patient has homicidal ideation: No - Past Medical History Cardiac Medical History: Reports: Hx Congestive Heart Failure, Hx Coronary Artery Disease, Hx DVT, Hx Heart Attack, Hx Hypercholesterolemia, Hx Hypertension, Hx Pulmonary Embolism Pulmonary Medical History: Reports: Hx Bronchitis, Hx COPD Denies: Hx Asthma, Hx Pneumonia, Hx Tuberculosis Neurological Medical History: Denies: Hx Cerebrovascular Accident, Hx Seizures Endocrine Medical History: Reports: Hx Hypothyroidism Renal/ Medical History: Reports: Hx Ovarian Cysts. Denies: Hx End Stage Renal Disease, Hx Kidney Stones, Hx Peritoneal Dialysis Malignancy Medical History: Reports: Hx Cervical Cancer, Hx Ovarian Cancer GI Medical History: Reports: Hx Gastroesophageal Reflux Disease, Hx Hiatal Hernia - Repaired, Hx Irritable Bowel, Hx Colonoscopy, Hx Endoscopy. Denies: Hx Cirrhosis, Hx Pancreatitis, Hx Ulcer Musculoskeltal Medical History: Reports Hx Arthritis - Lupus, Reports Hx Fibromyalgia - Lupus, Denies Hx Multiple Sclerosis, Reports Hx Musculoskeletal Deformity, Reports Hx Musculoskeletal Trauma Skin Medical History: Reports Hx Cellulitis - Recently treated, right breast Psychiatric Medical History: Reports: Hx Anxiety, Hx Depression Denies: Hx Bipolar Disorder, Hx Dementia, Hx Post Traumatic Stress Disorder, Hx Schizophrenia Traumatic Medical History: Reports: Hx Fractures - Knee and hip Infectious Medical History: Reports: Hx C-Diff - Was negative in October2015. Not yet successfully collected stool, Hx VRE Past Surgical History: Reports: Hx Appendectomy, Hx Bowel Surgery - Polyps, adhesions, Hx Cardiac Catheterization, Hx Cardiac Surgery - 2 stents 2014, Hx Section, Hx Cholecystectomy, Hx Coronary Stent - 3 stents, Hx Genitourinary Surgery - bladder sling, Hx Herniorrhaphy, Hx Hysterectomy, Hx Orthopedic Surgery - Right knee, bilateral knee replacements and hip replacement metal plate in, Hx Tonsillectomy. Denies: Hx Open Heart Surgery - Immunizations Immunizations up to date: Yes Hx Pneumococcal Vaccination: 05/20/11 Review of Systems - Review of Systems Notes: REVIEW OF SYSTEMS: CONSTITUTIONAL: -fevers, -chills EENT: -eye pain, -difficulty swallowing, -nasal congestion CARDIOVASCULAR: -chest pain, -syncope. RESPIRATORY: -cough, -SOB GASTROINTESTINAL: -abdominal pain, -nausea, -vomiting, -diarrhea GENITOURINARY: +dysuria, -hematuria MUSCULOSKELETAL: +back pain, -neck pain SKIN: -rash or skin lesions. HEMATOLOGIC: -easy bruising or bleeding. LYMPHATIC: -swollen, enlarged glands. NEUROLOGICAL: -altered mental status or loss of consciousness, -headache, - neurologic symptoms PSYCHIATRIC: -anxiety, -depression. ALL OTHER SYSTEMS REVIEWED AND NEGATIVE. Physical Exam - Vital signs Vitals: Temp Pulse Resp BP Pulse Ox 98.2 F 100 18 106/78 94 02/03/18 14:11 02/03/18 14:11 02/03/18 14:11 02/03/18 14:11 02/03/18 14:11 - Notes Notes: PHYSICAL EXAMINATION: GENERAL: Well-appearing, well-nourished and in no acute distress. HEAD: Atraumatic, normocephalic. EYES: Pupils equal round and reactive to light, extraocular movements intact, sclera anicteric, conjunctiva are normal. ENT: nares patent, oropharynx clear without exudates. Moist mucous membranes. NECK: Normal range of motion, supple without lymphadenopathy LUNGS: Breath sounds clear to auscultation bilaterally and equal. No wheezes rales or rhonchi. HEART: Regular rate and rhythm without murmurs ABDOMEN: Soft, nontender, normoactive bowel sounds. No guarding, no rebound. No masses appreciated. BACK: B/L CVA tenderness EXTREMITIES: Normal range of motion, no pitting or edema. No cyanosis. NEUROLOGICAL: Cranial nerves grossly intact. Normal speech, normal gait. Normal sensory and motor exams. PSYCH: Normal mood, normal affect. SKIN: Warm, Dry, normal turgor, no rashes or lesions noted. Course - Re-evaluation Re-evalutation: Patient appears well. She does have signs and symptoms of early pyelonephritis. Blood work is unremarkable and her creatinine is 1.0. Urinalysis does show evidence of a UTI and patient is having dysuria, so looking through all culture results, will treat her with Bactrim DS for 14 days for pyelonephritis. Even though she has a history of kidney stones, she says this does not feel like her usual kidney stone pain. She will follow-up with Dr. Muñoz in 2 days. Given very strict return precautions and she understands. - Vital Signs Vital signs: Temp Pulse Resp BP Pulse Ox 98.2 F 100 18 106/78 94 02/03/18 14:11 02/03/18 14:11 02/03/18 14:11 02/03/18 14:11 02/03/18 14:11 - Laboratory Result Diagrams: 02/03/18 16:46 02/03/18 16:46 Laboratory results interpreted by me: 02/03/18 02/03/18 02/03/18 16:46 16:46 16:46 MCV 77 L MCH 26.5 L RDW 15.0 H Seg Neutrophils % 82.9 H Lymphocytes % 8.6 L Sodium 135.3 L Potassium 3.5 L Carbon Dioxide 19 L Est GFR (Non-Af Amer) 50 L Lipase 19.5 L Urine Blood SMALL H Ur Leukocyte Esterase SMALL H Discharge - Discharge Clinical Impression: Pyelonephritis Condition: Stable Disposition: HOME, SELF-CARE Additional Instructions: PYELONEPHRITIS: Your evaluation shows evidence of pyelonephritis. This is an infection in the kidney. Typical symptoms are fever, pain in the flank, pain on urination, and frequent urination. Many cases of pyelonephritis can be treated at home. Hospital care may be necessary for patients who are very ill, or elderly or . Pyelonephritis is treated with antibiotics. Be sure to take all the medication as prescribed. Drink plenty of liquids (about three quarts per day) . You may take acetaminophen for fever. You should feel significantly improved within two days. You should have a recheck of your urine in about one week to insure that the infection is gone. Return for a re-examination if your symptoms worsen in any way -- such as high fever, shaking chills, severe weakness or dizziness, severe pain, or inability to pass your urine. ANTIBIOTIC THERAPY: You have been given an antibiotic prescription. It's important that you take all the medication, unless instructed otherwise by your physician. Failure to complete the entire course can result in relapse of your condition. Common side effects of antibiotics include nausea, intestinal cramping, or diarrhea. Women may develop vaginal yeast infections, and babies can get yeast (thrush) in the mouth following the use of antibiotics. Contact your physician if you develop significant side effects from this medication. Allergy to this antibiotic can result in hives, wheezing, faintness, or itching. If symptoms of allergy occur, stop the medication and call the doctor. TRIMETHOPRIM-SULFA: You have been given a prescription for trimethoprim-sulfa (TMS, Septra, Bactrim). This is a combination antibiotic of the sulfa class, often used for urinary tract infections, middle ear infections, bronchitis, shigella intestinal infection, and Pneumocystis pneumonia. TMS is usually well-tolerated. Occasional side effects include nausea and decreased appetite. Septra is not recommended for infants less than two months of age. Do not take this medication if you have experienced severe side effects or allergy to sulfa medicine. You should stop this medicine at once and contact your physician if you develop any rash, joint pain, shortness of breath, bruising, or jaundice ( yellow color in the skin), or if you develop any other new or unusual symptoms. USE OF ACETAMINOPHEN (Tylenol): Acetaminophen may be taken for pain relief or fever control. It's much safer than aspirin, offering a wider range of "safe" dosages. It is safe during . Some brand names are Tylenol, Panadol, Datril, Anacin 3, Tempra, and Liquiprin. Acetaminophen can be repeated every four hours. The following are maximum recommended dosages: >89 pounds or adults 650 mg to 900 mg Acetaminophen can be repeated every four hours. Maximum dose not to exceed 4000 mg a day. FOLLOW-UP CARE: If you have been referred to a physician for follow-up care, call the physician s office for an appointment as you were instructed or within the next two days. If you experience worsening or a significant change in your symptoms, notify the physician immediately or return to the Emergency Department at any time for re-evaluation. Prescriptions: Phenazopyridine HCl [Pyridium 200 mg Tablet] 200 mg PO TID #15 tablet Sulfamethoxazole/Trimethoprim [Bactrim Ds Tablet] 1 each PO BID 14 Days tablet Referrals: IAN MUÑOZ MD [Primary Care Provider] - Follow up as needed
[2018-02-03 18:23] LABS: APPEARANCE,URINE SLIGHTLY-CLOUDY; BILIRUBIN,URINE NEGATIVE (NEGATIVE); COLOR,URINE YELLOW; GLUCOSE, URINE NEGATIVE (NEGATIVE); KETONES,URINE NEGATIVE (NEGATIVE); LEUKOCYTE ESTERASE,URINE SMALL (NEGATIVE); NITRITE,URINE NEGATIVE (NEGATIVE); PROTEIN,URINE NEGATIVE (NEGATIVE); URINE SPECIFIC GRAVITY 1.008; UROBILINOGEN,URINE NEGATIVE mg/dL (<2.0)
== END 2018-02-03 19:09 | disposition home or self-care (01) ==
LOC: ER 14:04
DX: N12 Tubulo-interstitial nephritis, not specified as acute or chronic (principal); R10.9 Unspecified abdominal pain; I50.9 Heart failure, unspecified; I25.10 Atherosclerotic heart disease of native coronary artery without angina pectoris; Z87.440 Personal history of urinary (tract) infections; Z88.0 Allergy status to penicillin; Z87.442 Personal history of urinary calculi; Z86.718 Personal history of other venous thrombosis and embolism; I25.2 Old myocardial infarction
CPT/HCPCS: 36591; 99284; 36415; 87040; 87086; 83690; 85025; 87088; 80053; 81001; 87186; A9270 ×4; J3490; S0119

== ENCOUNTER 2018-03-06 12:50 | Inpatient (IN) | payer MEDICARE, OTHER ==
[2018-03-06 14:33] LABS: HEMATOCRIT 38.1 % (36.0-47.0); MEAN CORPUSCULAR HEMOGLOBIN 25.5 pg (27.0-33.4); MEAN CORPUSCULAR VOLUME 75 fl (80-97); PLATELET COUNT 432 10^3/uL (150-450); RED BLOOD COUNT 5.08 10^6/uL (3.72-5.28); WHITE BLOOD COUNT 8.9 10^3/uL (4.0-10.5)
[2018-03-06 15:02] LABS: ANION GAP 15 (5-19); BLOOD UREA NITROGEN 16 mg/dL (7-20); CALCIUM 9.2 mg/dL (8.4-10.2); CARBON DIOXIDE 22 mmol/L (22-30); CHLORIDE 100 mmol/L (98-107); CREATINE KINASE 28 U/L (30-135); GLUCOSE 77 mg/dL (75-110); POTASSIUM 3.2 mmol/L (3.6-5.0); SODIUM 136.8 mmol/L (137-145)
[2018-03-06] MEDS: NORMAL SALINE 1000 ML 1,000 ML IV PRN (15:07)
[2018-03-06] MEDS: METRONIDAZOLE 500 MG/NS RTU 500 MG/100 ML RTUPB IV SCH ×2 (15:08→20:58)
--- NOTE | 2018-03-06 15:13 | RADIOLOGY REPORT (SQ) ---
EXAM DESCRIPTION: CHEST SINGLE VIEW COMPLETED DATE/TIME: 03/06/2018 3:02 pm REASON FOR STUDY: MULT COMORBITIES COMPARISON: Chest films 10/05/2017, 10/11/2017, 12/26/2017 EXAM PARAMETERS: NUMBER OF VIEWS: One view. TECHNIQUE: Single frontal radiographic view of the chest acquired. RADIATION DOSE: NA LIMITATIONS: None. FINDINGS: LUNGS AND PLEURA: No opacities, masses or pneumothorax. No pleural effusion. MEDIASTINUM AND HILAR STRUCTURES: No masses. Contour normal. HEART AND VASCULAR STRUCTURES: Heart normal in size. Normal vasculature. Curvilinear calcification right heart border likely a right coronary stent. BONES: No acute findings. HARDWARE: The right-sided permanent central line catheter tip is at the junction of the left jugular vein and left subclavian vein. This appears to have been pulled back since 12/26/2017. There is an a bandoned segment of right subclavian central venous catheter in the subclavian vein and superior vena cava unchanged from prior studies. Old abandoned neurostimulator leads over the lower thoracic spin al canal. OTHER: No other significant finding. IMPRESSION: No acute infiltrates. No cardiomegaly. Right-sided permanent central line tip of the catheter has worked its way retrograde, catheter tip is now at the junction of the left jugular vein and subclavian vein. TECHNICAL DOCUMENTATION: JOB ID: [id number] [employer]- All Rights Reserved Reading location - IP/workstation name: [facility]
[2018-03-06] MEDS: MORPHINE SULFATE 10 MG/ML INJ IV PRN ×2 (15:14→20:59)
[2018-03-06 15:15] LABS: CREATINE KINASE MB 0.41 ng/mL (<4.55)
[2018-03-06 15:20] LABS: TROPONIN I < 0.012 ng/mL
[2018-03-06] MEDS ORDERED: POTASSIUM CHLORIDE 10 MEQ CAPSULE.ER PO ONE (16:00)
[2018-03-06 17:40] LABS: ALANINE AMINOTRANSFERASE 15 U/L (9-52); ALBUMIN 3.8 g/dL (3.5-5.0); ALKALINE PHOSPHATASE 131 U/L (38-126); ASPARTATE AMINO TRANSFERASE 16 U/L (14-36); BILIRUBIN,DIRECT 0.4 mg/dL (0.0-0.4); BILIRUBIN,TOTAL 0.6 mg/dL (0.2-1.3); TOTAL PROTEIN 6.3 g/dL (6.3-8.2)
[2018-03-06] MEDS ORDERED: (PENDING PHARMACY ID) (Oxycodone Hcl/Acetaminophen [Oxycodone-Acetaminophen 10-325] 1 EACH PO PRN (19:34)
[2018-03-06] MEDS ORDERED: (PENDING PHARMACY ID) (Zaleplon [Sonata] 10 MG) PO PRN (19:34)
--- NOTE | 2018-03-06 19:40 | PDOC H&P ---
History of Present Illness Admission Date/PCP: 03/06/18 12:50 IAN MUÑOZ MD History of Present Illness: VALENTE MUNOZ is a 62 year old female, She came to the office today for evaluation of severe diarrhea ,vomiting, she has the symptoms in the last 3 days, she is unable to keep any food down, the diarrhea is profuse loose watery , she was admitted directly from the office to the hospital for evaluation and management she was clinically dehydrated, the stool study came back positive for Clostridium difficile toxin Past Medical History Cardiac Medical History: Reports: Congestive Heart Failure, Coronary Artery Disease, DVT, Myocardial Infarction, Hyperlipidema, Hypertension, Pulmonary Embolism Pulmonary Medical History: Reports: Bronchitis, Chronic Obstructive Pulmonary Disease (COPD) Endocrine Medical History: Reports: Hypothyroidism Malignancy Medical History: Reports: Cervical Cancer Musculoskeltal Medical History: Reports: Arthritis - Lupus, Fibromyalgia - Lupus Psychiatric Medical History: Reports: Depression Hematology: Reports: Anemia - HX OF LOW NA AND K,LOW IRON WILL HAVE IRON TRANS FUSION 05/04. Infectious Medical History: Reports: Clostridium Difficile - Was negative in October2015. Not yet successfully collected stool, Methicillin-Resistant Staph Aureus, Vancomycin-Resistant Enterococci Past Surgical History Past Surgical History: Reports: Appendectomy, Cardiac Catheterization, Section, Cholecystectomy, Coronary Stent - 3 stents, Herniorrhaphy, Hysterectomy , Orthopedic Surgery - Right knee, bilateral knee replacements and hip replacement metal plate in, Tonsillectomy Social History Smoking Status: Former Smoker Frequency of Alcohol Use: Rare Hx Recreational Drug Use: No Drugs: None Hx Prescription Drug Abuse: No Family History Family History: Arthritis, COPD, Hyperlipidemia, Hypertension, Malignancy, Thyroid Disfunction Parental Family History Reviewed: Yes Children Family History Reviewed: Yes Sibling(s) Family History Reviewed.: Yes Medication/Allergy Home Medications: Atorvastatin Calcium [Lipitor 40 mg Tablet] 40 mg PO QHS 01/08/18 Cyclobenzaprine HCl [Flexeril 10 mg Tablet] 10 mg PO Q8HP PRN 01/08/18 Hydroxychloroquine Sulfate [Plaquenil] 200 mg PO BID 01/08/18 Zaleplon [Sonata] 10 mg PO HSP PRN 01/08/18 Clopidogrel Bisulfate [Clopidogrel] 75 mg PO DAILY 01/11/18 Gabapentin 600 mg PO TID 01/11/18 Promethazine HCl 25 mg PO QID 01/11/18 Apixaban [Eliquis] 5 mg PO BID 03/06/18 Bethanechol Chloride [Urecholine 10 mg Tablet] 10 mg PO Q8 03/06/18 Furosemide [Lasix 40 mg Tablet] 40 mg PO QAM 03/06/18 Hydrocodone Bitartrate [Zohydro ER] 40 mg PO Q12 03/06/18 Oxycodone HCl/Acetaminophen [Oxycodone-Acetaminophen 10-325] 1 each PO Q6HP PRN 03/06/18 Tizanidine HCl [Zanaflex 4 Mg Tablet] 4 mg PO HSP PRN 03/06/18 Allergies/Adverse Reactions: irbesartan [From Avapro] Allergy (Severe, Verified 03/06/18 15:35) swelling of face nitrofurantoin macrocrystalline [From Macrobid] Allergy (Severe, Verified 15:35) Generalized edema Penicillins Allergy (Severe, Verified 03/06/18 15:35) eyes swelled pregabalin [From Lyrica] Allergy (Severe, Verified 03/06/18 15:35) Equilibrium Issues venom-honey bee [bee venom (honey bee)] Allergy (Verified 03/06/18 15:35) Anaphylaxis Review of Systems Constitutional: PRESENT: chills Eyes: ABSENT: visual disturbances Ears: ABSENT: hearing changes Cardiovascular: ABSENT: chest pain, dyspnea on exertion, edema, orthropnea, palpitations Respiratory: ABSENT: cough, hemoptysis Gastrointestinal: PRESENT: abdominal pain, diarrhea Genitourinary: ABSENT: dysuria, hematuria Musculoskeletal: ABSENT: joint swelling Integumentary: ABSENT: rash, wounds Neurological: ABSENT: abnormal gait, abnormal speech, confusion, dizziness, focal weakness, syncope Psychiatric: ABSENT: anxiety, depression, homidical ideation, suicidal ideation Endocrine: ABSENT: cold intolerance, heat intolerance, menstrual abnormalities, polydipsia, polyuria Hematologic/Lymphatic: ABSENT: easy bleeding, easy bruising, lymphadenopathy Physical Exam Vital Signs: Temp Pulse Resp BP Pulse Ox 97.6 F 89 20 118/82 94 03/06/18 14:22 03/06/18 16:30 03/06/18 14:22 03/06/18 14:22 03/06/18 14:22 Intake & Output 03/05/18 03/06/18 03/07/18 06:59 06:59 06:59 Weight 79.9 kg General appearance: PRESENT: mild distress Head exam: PRESENT: atraumatic, normocephalic Eye exam: PRESENT: PERRLA Ear exam: PRESENT: normal external ear exam Mouth exam: PRESENT: dry mucosa Neck exam: PRESENT: full ROM Respiratory exam: PRESENT: clear to auscultation martínez Cardiovascular exam: PRESENT: RRR, +S1, +S2 Pulses: PRESENT: normal dorsalis pedis pul, +2 pedal pulses bilateral Vascular exam: PRESENT: normal capillary refill GI/Abdominal exam: PRESENT: normal bowel sounds, soft Rectal exam: PRESENT: deferred Neurological exam: PRESENT: alert, awake, oriented to person, oriented to place , oriented to time, oriented to situation, CN II-XII grossly intact Psychiatric exam: PRESENT: appropriate affect, normal mood Skin exam: PRESENT: dry, intact, warm. ABSENT: cyanosis, rash Results Laboratory Results: 03/06/18 14:07 03/06/18 14:07 03/06/18 03/06/18 03/06/18 14:07 14:07 14:15 WBC 8.9 RBC 5.08 Hgb 13.0 Hct 38.1 MCV 75 L MCH 25.5 L MCHC 34.0 RDW 16.0 H Plt Count 432 Sodium 136.8 L Potassium 3.2 L Chloride 100 Carbon Dioxide 22 Anion Gap 15 BUN 16 Creatinine 1.07 Est GFR ( Amer) > 60 Est GFR (Non-Af Amer) 52 L Glucose 77 Calcium 9.2 Total Bilirubin 0.6 AST 16 ALT 15 Alkaline Phosphatase 131 H Total Protein 6.3 Albumin 3.8 03/06/18 03/06/18 14:07 14:07 Creatine Kinase 28 L CK-MB (CK-2) 0.41 Troponin I < 0.012 Impressions: Chest X-Ray 03/06/18 13:23 IMPRESSION: No acute infiltrates. No cardiomegaly. Right-sided permanent central line tip of the catheter has worked its way retrograde, catheter tip is now at the junction of the left jugular vein and subclavian vein. Assessment & Plan - Diagnosis (1) Gastroenteritis due to Clostridium difficile Is this a current diagnosis for this admission?: Yes Plan: She is admitted for the management of diarrhea due to Clostridium difficile colitis (2) Hypokalemia Is this a current diagnosis for this admission?: Yes Plan: She has hypokalemia
[2018-03-06] MEDS ORDERED: BETHANECHOL CHLORIDE 10 MG PO SCH (19:45)
[2018-03-06] MEDS: GABAPENTIN 300 MG CAPSULE PO SCH (20:57)
[2018-03-06] MEDS: ATORVASTATIN CALCIUM 40 MG TABLET PO SCH (20:57)
[2018-03-06] MEDS: PROMETHAZINE HCL INJ 25 MG/1 ML VIAL IV PRN (20:58)
[2018-03-06] MEDS ORDERED: HYDROXYCHLOROQUINE SULFATE 200 MG TABLET PO ONE (21:00)
[2018-03-06] MEDS: PROMETHAZINE HCL 25 MG TABLET PO SCH (21:01)
[2018-03-06 21:39] LABS: CREATINE KINASE MB 0.29 ng/mL (<4.55)
[2018-03-06 21:43] LABS: TROPONIN I < 0.012 ng/mL
[2018-03-06] MEDS ORDERED: HYDROCODONE BITARTRATE 40 MG PO SCH (22:00)
[2018-03-07] MEDS: VANCOMYCIN HCL INJ 500 MG VIAL PO SCH ×5 (00:07→23:21)
[2018-03-07] MEDS: MORPHINE SULFATE 10 MG/ML INJ IV PRN ×4 (02:55→22:02)
[2018-03-07] MEDS: PROMETHAZINE HCL INJ 25 MG/1 ML VIAL IV PRN ×4 (02:55→22:02)
[2018-03-07 03:35] LABS: CREATINE KINASE MB 0.39 ng/mL (<4.55)
[2018-03-07 03:37] LABS: TROPONIN I < 0.012 ng/mL
[2018-03-07] MEDS: GABAPENTIN 300 MG CAPSULE PO SCH ×3 (05:27→22:02)
[2018-03-07] MEDS: METRONIDAZOLE 500 MG/NS RTU 500 MG/100 ML RTUPB IV SCH ×3 (05:27→22:02)
[2018-03-07] MEDS: NORMAL SALINE 1000 ML 1,000 ML IV PRN ×2 (05:27→15:50)
--- NOTE | 2018-03-07 07:53 | EKG REPORT ---
SEVERITY:- ABNORMAL ECG - SINUS ARRHYTHMIA, RATE 72-110 PROBABLE INFERIOR INFARCT, OLD : Confirmed by: Patti Naylor MD 07-Mar-2018 07:52:35
[2018-03-07] MEDS: PROMETHAZINE HCL 25 MG TABLET PO SCH ×4 (09:07→21:38)
[2018-03-07] MEDS: POTASSIUM CHLORIDE 10 MEQ CAPSULE.ER PO SCH (09:21)
[2018-03-07] MEDS: APIXABAN 5 MG TABLET PO SCH ×2 (09:22→17:40)
[2018-03-07] MEDS: HYDROXYCHLOROQUINE SULFATE 200 MG TABLET PO SCH ×2 (09:22→17:40)
[2018-03-07] MEDS: ATORVASTATIN CALCIUM 40 MG TABLET PO SCH (22:01)
[2018-03-08] MEDS: MORPHINE SULFATE 10 MG/ML INJ IV PRN ×5 (03:58→23:55)
[2018-03-08] MEDS: PROMETHAZINE HCL INJ 25 MG/1 ML VIAL IV PRN ×3 (03:58→15:11)
[2018-03-08] MEDS: NORMAL SALINE 1000 ML 1,000 ML IV PRN (05:14)
[2018-03-08] MEDS: GABAPENTIN 300 MG CAPSULE PO SCH ×3 (05:14→21:20)
[2018-03-08] MEDS: METRONIDAZOLE 500 MG/NS RTU 500 MG/100 ML RTUPB IV SCH ×3 (05:14→21:21)
[2018-03-08] MEDS: VANCOMYCIN HCL INJ 500 MG VIAL PO SCH ×4 (05:14→23:25)
[2018-03-08] MEDS: POTASSIUM CHLORIDE 10 MEQ CAPSULE.ER PO SCH (10:10)
[2018-03-08] MEDS: APIXABAN 5 MG TABLET PO SCH ×2 (10:10→17:23)
[2018-03-08] MEDS: HYDROXYCHLOROQUINE SULFATE 200 MG TABLET PO SCH ×2 (10:11→17:23)
[2018-03-08] MEDS: PROMETHAZINE HCL 25 MG TABLET PO SCH ×4 (10:12→21:20)
--- NOTE | 2018-03-08 18:55 | RADIOLOGY REPORT (SQ) ---
EXAM DESCRIPTION: HIP RIGHT AP/LATERAL COMPLETED DATE/TIME: 03/08/2018 6:47 pm REASON FOR STUDY: recent fall, assess hip COMPARISON: None. NUMBER OF VIEWS: Two views. TECHNIQUE: AP pelvis and additional frog-leg view of the right hip. LIMITATIONS: None. FINDINGS: MINERALIZATION: Normal. RIGHT HIP: No acute fracture. Total hip replacement. LEFT HIP: No fracture or dislocation. No worrisome bone lesions. PUBIS AND ISCHIUM: No fracture. PELVIS: No fracture. SACRUM: No fracture or dislocation. No worrisome bone lesions. LOWER LUMBAR SPINE: Surgical changes. Neurostimulator. SOFT TISSUES: No findings. OTHER: No other significant finding. IMPRESSION: No acute fracture. TECHNICAL DOCUMENTATION: JOB ID: [id number] [employer]- All Rights Reserved Reading location - IP/workstation name: [email or web address]
--- NOTE | 2018-03-08 21:10 | PDOC PROGRESS REPORT ---
Subjective Progress Note for:: 03/08/18 Subjective:: Patient was admitted for the management of severe diarrhea due to Clostridium difficile infection, dehydration, hypokalemia she was seen today by the bedside , she complained of pain in the right hip area due to fall, x-ray was done, negative for any fracture or dislocation. Patient continues to receive p.o. vancomycin and IV Flagyl Reason For Visit: PERSISTANT VOMITING Physical Exam Vital Signs: Temp Pulse Resp BP Pulse Ox 98.4 F 73 16 129/53 H 89 L 03/08/18 17:47 03/08/18 19:00 03/08/18 17:47 03/08/18 17:47 03/08/18 17:47 Intake & Output 03/07/18 03/08/18 03/09/18 06:59 06:59 06:59 Intake Total 330 4430 3608 Output Total 500 Balance -170 4430 3608 Weight 82.4 kg 80.8 kg General appearance: PRESENT: no acute distress Eye exam: PRESENT: PERRLA Respiratory exam: PRESENT: clear to auscultation martínez Cardiovascular exam: PRESENT: +S1, +S2 GI/Abdominal exam: PRESENT: soft Neurological exam: PRESENT: alert Results Laboratory Results: 03/06/18 14:07 03/06/18 14:07 03/06/18 03/06/18 03/06/18 14:07 14:07 20:57 Creatine Kinase 28 L 23 L CK-MB (CK-2) 0.41 Troponin I < 0.012 03/06/18 03/07/18 03/07/18 20:57 03:00 03:00 Creatine Kinase 27 L CK-MB (CK-2) 0.29 0.39 Troponin I < 0.012 < 0.012 Impressions: Chest X-Ray 03/06/18 13:23 IMPRESSION: No acute infiltrates. No cardiomegaly. Right-sided permanent central line tip of the catheter has worked its way retrograde, catheter tip is now at the junction of the left jugular vein and subclavian vein. Hip/Pelvis X-Ray 03/08/18 00:00 IMPRESSION: No acute fracture. Assessment & Plan - Diagnosis (1) Gastroenteritis due to Clostridium difficile Is this a current diagnosis for this admission?: Yes (2) Hypokalemia Is this a current diagnosis for this admission?: Yes (3) Coronary artery disease Qualifiers: Coronary Disease-Associated Artery/Lesion type: [place] artery [place] vs. transplanted heart: [place] heart Is this a current diagnosis for this admission?: Yes
[2018-03-08] MEDS: ATORVASTATIN CALCIUM 40 MG TABLET PO SCH (21:20)
[2018-03-09] MEDS: MORPHINE SULFATE 10 MG/ML INJ IV PRN ×5 (03:44→22:04)
[2018-03-09] MEDS: PROMETHAZINE HCL INJ 25 MG/1 ML VIAL IV PRN ×4 (04:12→21:59)
[2018-03-09] MEDS: METRONIDAZOLE 500 MG/NS RTU 500 MG/100 ML RTUPB IV SCH ×3 (07:39→21:58)
[2018-03-09] MEDS: VANCOMYCIN HCL INJ 500 MG VIAL PO SCH ×4 (07:39→23:13)
[2018-03-09] MEDS: GABAPENTIN 300 MG CAPSULE PO SCH ×3 (07:40→22:02)
[2018-03-09] MEDS: PROMETHAZINE HCL 25 MG TABLET PO SCH ×4 (09:59→22:14)
[2018-03-09] MEDS: POTASSIUM CHLORIDE 10 MEQ CAPSULE.ER PO SCH (10:04)
[2018-03-09] MEDS: APIXABAN 5 MG TABLET PO SCH ×2 (10:04→17:19)
[2018-03-09] MEDS: HYDROXYCHLOROQUINE SULFATE 200 MG TABLET PO SCH ×2 (10:04→17:19)
--- NOTE | 2018-03-09 16:04 | PDOC DISCHARGE SUMMARY ---
General - Admit/Disc Date/PCP Admission Date/Primary Care Provider: 03/09/18 08:50 IAN MUÑOZ MD Discharge Date: 03/09/18 - Discharge Diagnosis (1) Gastroenteritis due to Clostridium difficile Is this a current diagnosis for this admission?: Yes (2) Hypokalemia Is this a current diagnosis for this admission?: Yes (3) Coronary artery disease Is this a current diagnosis for this admission?: Yes - Additional Information Prescriptions: RX: Vancomycin HCl [Vancocin Inj 500 mg Vial] 250 mg PO Q6 #28 vial Home Medications: RX: Atorvastatin Calcium [Lipitor 40 mg Tablet] 40 mg PO QHS 01/08/18 RX: Hydroxychloroquine Sulfate [Plaquenil] 200 mg PO BID 01/08/18 RX: Zaleplon [Sonata] 10 mg PO HSP PRN 01/08/18 RX: Gabapentin 600 mg PO TID 01/11/18 RX: Apixaban [Eliquis] 5 mg PO BID 03/06/18 RX: Bethanechol Chloride [Urecholine 10 mg Tablet] 10 mg PO Q8 03/06/18 RX: Hydrocodone Bitartrate [Zohydro ER] 40 mg PO Q12 03/06/18 RX: Oxycodone HCl/Acetaminophen [Oxycodone-Acetaminophen 10-325] 1 each PO Q6HP PRN 03/06/18 RX: Vancomycin HCl [Vancocin Inj 500 mg Vial] 250 mg PO Q6 #28 vial 03/09/18 History of Present Illness History of Present Illness: VALENTE MUNOZ is a 62 year old female, She came to the office today for evaluation of severe diarrhea ,vomiting, she has the symptoms in the last 3 days, she is unable to keep any food down, the diarrhea is profuse loose watery , she was admitted directly from the office to the hospital for evaluation and management she was clinically dehydrated, the stool study came back positive for Clostridium difficile toxin Hospital Course Hospital Course: She was admitted for the management of C. difficile colitis, she presented with severe diarrhea with dehydration she was treated with IV fluids, p.o. vancomycin and IV Flagyl. This combination was effective in treating the C. difficile she was brought in for observation. She has chronic pain on chronic opioid therapy, the chronic pain was controlled with IV morphine and Phenergan for nausea. Physical Exam Vital Signs: Temp Pulse Resp BP Pulse Ox 98.0 F 92 16 129/61 H 85 L 03/09/18 14:23 03/09/18 14:23 03/09/18 14:23 03/09/18 14:23 03/09/18 14:23 Intake & Output 03/08/18 03/09/18 03/10/18 06:59 06:59 06:59 Intake Total 4430 3608 949 Output Total 1900 1600 Balance 4430 1708 -651 Weight 80.8 kg 87.09 kg General appearance: PRESENT: no acute distress, well-developed, well-nourished Head exam: PRESENT: atraumatic, normocephalic Eye exam: PRESENT: PERRLA Ear exam: PRESENT: normal external ear exam Neck exam: PRESENT: full ROM Cardiovascular exam: PRESENT: RRR, +S1, +S2 Pulses: PRESENT: normal dorsalis pedis pul, +2 pedal pulses bilateral Vascular exam: PRESENT: normal capillary refill GI/Abdominal exam: PRESENT: normal bowel sounds, soft Rectal exam: PRESENT: deferred Neurological exam: PRESENT: alert, awake, oriented to person, oriented to place , oriented to time, oriented to situation, CN II-XII grossly intact Psychiatric exam: PRESENT: appropriate affect, normal mood Skin exam: PRESENT: dry, intact, warm Results Laboratory Results: 03/06/18 14:07 03/06/18 14:07 03/06/18 03/06/18 03/06/18 14:07 14:07 20:57 Creatine Kinase 28 L 23 L CK-MB (CK-2) 0.41 Troponin I < 0.012 03/06/18 03/07/18 03/07/18 20:57 03:00 03:00 Creatine Kinase 27 L CK-MB (CK-2) 0.29 0.39 Troponin I < 0.012 < 0.012 Impressions: Chest X-Ray 03/06/18 13:23 IMPRESSION: No acute infiltrates. No cardiomegaly. Right-sided permanent central line tip of the catheter has worked its way retrograde, catheter tip is now at the junction of the left jugular vein and subclavian vein. Hip/Pelvis X-Ray 03/08/18 00:00 IMPRESSION: No acute fracture. Qualifiers - * PATIENT BEING DISCHARGED WITH ANY OF THE FOLLOWING DIAGNOSIS: No
[2018-03-09] MEDS: ATORVASTATIN CALCIUM 40 MG TABLET PO SCH (22:02)
[2018-03-09] MEDS: ZOLPIDEM TARTRATE 5 MG TABLET PO SCH (22:03)
[2018-03-09] MEDS: NORMAL SALINE 1000 ML 1,000 ML IV PRN (22:13)
[2018-03-10] MEDS: MORPHINE SULFATE 10 MG/ML INJ IV PRN ×6 (02:05→22:12)
[2018-03-10] MEDS: PROMETHAZINE HCL INJ 25 MG/1 ML VIAL IV PRN ×4 (04:16→22:13)
[2018-03-10] MEDS: METRONIDAZOLE 500 MG/NS RTU 500 MG/100 ML RTUPB IV SCH ×3 (05:21→22:12)
[2018-03-10] MEDS: GABAPENTIN 300 MG CAPSULE PO SCH ×3 (05:22→22:12)
[2018-03-10] MEDS: VANCOMYCIN HCL INJ 500 MG VIAL PO SCH ×4 (05:23→23:31)
[2018-03-10] MEDS: HYDROXYCHLOROQUINE SULFATE 200 MG TABLET PO SCH ×2 (09:48→17:53)
[2018-03-10] MEDS: APIXABAN 5 MG TABLET PO SCH ×2 (09:48→17:53)
[2018-03-10] MEDS: PROMETHAZINE HCL 25 MG TABLET PO SCH ×4 (09:49→21:58)
[2018-03-10] MEDS: POTASSIUM CHLORIDE 10 MEQ CAPSULE.ER PO SCH (09:49)
--- NOTE | 2018-03-10 15:45 | RADIOLOGY REPORT (SQ) ---
EXAM DESCRIPTION: CT ABD/PELVIS NO ORAL OR IV COMPLETED DATE/TIME: 03/10/2018 3:03 pm REASON FOR STUDY: Pain bilateral lower quadrants. COMPARISON: CT abdomen and pelvis 10/05/2017. TECHNIQUE: CT scan of the abdomen and pelvis performed without intravenous or oral contrast. Images reviewed with lung, soft tissue, and bone windows. Reconstructed coronal and sagittal MPR images revi ewed. All images stored on PACS. All CT scanners at this facility use dose modulation, iterative reconstruction, and/or weight based d osing when appropriate to reduce radiation dose to as low as reasonably achievable (ALARA). [facility]: Dose Right [facility]: CareDose [facility]: Dose Right [facility]: Teradose 4D [facility]: Smart Acteavo RADIATION DOSE: CT Rad equipment meets quality standard of care and radiation dose reduction techniq ues were employed. CTDIvol: 13.9 mGy. DLP: 664 mGy-cm.mGy. LIMITATIONS: None. FINDINGS: LOWER CHEST: No consolidation or pleural effusion. NON-CONTRASTED LIVER, SPLEEN, ADRENALS: Evaluation limited by lack of IV contrast. No identified sign ificant masses. PANCREAS: No peripancreatic inflammatory changes. GALLBLADDER: Surgically absent. RIGHT KIDNEY AND URETER: Assessment for masses limited by lack of IV contrast. No significant calci fications. No hydronephrosis or hydroureter. LEFT KIDNEY AND URETER: Assessment for masses limited by lack of IV contrast. No significant calcif ications. No hydronephrosis or hydroureter. AORTA AND RETROPERITONEUM: No abdominal aortic aneurysm. No retroperitoneal masses or hemorrhage. BOWEL AND PERITONEAL CAVITY: No dilated bowel loops or inflammatory changes. No free fluid. Feces li ke material at the distal small bowel. Moderate amount of stool at the colon. APPENDIX: Surgically absent. PELVIS, BLADDER, AND ABDOMINAL WALL:The pelvis is partially obscured by streak artifact from the righ t hip prosthesis. The urinary bladder is partially distended. The uterus is surgically absent. No obvious pelvic mass or free fluid. Postsurgical changes at the anterior abdominal wall. BONES: Redemonstration of compression deformity at L1 vertebral body. Postsurgical changes with orth opedic hardware at the lumbar spine. Spine or neural stimulator with the battery pack at the right g luteal region and the leads extending to the thoracic spine. The patient is status post total right hip arthroplasty. IMPRESSION: 1. No urinary tract calculi or hydronephrosis. 2. Feces like material at the distal small bowel, suggestive of delayed intestinal transit. Moderate amount of stool at the colon. COMMENT: Quality ID # [id number]: Final reports with documentation of one or more dose reduction techniques (e.g., Automated exposure control, adjustment of the mA and/or kV according to patient size, use of iterative reconstruction technique) TECHNICAL DOCUMENTATION: JOB ID: [id number] 2010 [employer]- All Rights Reserved Reading location - IP/workstation name: [email or web address]
[2018-03-10 16:04] LABS: APPEARANCE,URINE CLEAR; BILIRUBIN,URINE NEGATIVE (NEGATIVE); COLOR,URINE STRAW; GLUCOSE, URINE NEGATIVE (NEGATIVE); KETONES,URINE NEGATIVE (NEGATIVE); LEUKOCYTE ESTERASE,URINE MODERATE (NEGATIVE); NITRITE,URINE NEGATIVE (NEGATIVE); PROTEIN,URINE NEGATIVE (NEGATIVE); URINE SPECIFIC GRAVITY 1.004; UROBILINOGEN,URINE NEGATIVE mg/dL (<2.0)
--- NOTE | 2018-03-10 19:59 | PDOC PROGRESS REPORT ---
Subjective Progress Note for:: 03/10/18 Subjective:: Patient was supposed to be discharged him this morning, she developed urinary symptoms dysuria and frequency, history of recurrent UTI, history of ESBL UTI, VRE UTI, she said it felt that she has kidney stone, CAT scan was obtained no stone was found Reason For Visit: PERSISTANT VOMITING, C-DIFF Physical Exam Vital Signs: Temp Pulse Resp BP Pulse Ox 98.6 F 79 18 132/62 H 100 03/10/18 16:13 03/10/18 19:00 03/10/18 16:13 03/10/18 16:13 03/10/18 16:13 Intake & Output 03/09/18 03/10/18 03/11/18 06:59 06:59 06:59 Intake Total 3608 4984 2068 Output Total 1900 3200 Balance 1708 1784 2068 Weight 87.09 kg 86.5 kg General appearance: PRESENT: no acute distress Eye exam: PRESENT: PERRLA Respiratory exam: PRESENT: clear to auscultation martínez Cardiovascular exam: PRESENT: +S1, +S2 GI/Abdominal exam: PRESENT: soft Neurological exam: PRESENT: alert Results Laboratory Results: 03/06/18 14:07 03/06/18 14:07 03/10/18 15:40 Urine Color STRAW Urine Appearance CLEAR Urine pH 5.0 Ur Specific [place] 1.004 Urine Protein NEGATIVE Urine Glucose (UA) NEGATIVE Urine Ketones NEGATIVE Urine Blood SMALL H Urine Nitrite NEGATIVE Ur Leukocyte Esterase MODERATE H Urine WBC (Auto) 36 Urine RBC (Auto) 1 03/06/18 03/06/18 03/06/18 14:07 14:07 20:57 Creatine Kinase 28 L 23 L CK-MB (CK-2) 0.41 Troponin I < 0.012 03/06/18 03/07/18 03/07/18 20:57 03:00 03:00 Creatine Kinase 27 L CK-MB (CK-2) 0.29 0.39 Troponin I < 0.012 < 0.012 Impressions: Chest X-Ray 03/06/18 13:23 IMPRESSION: No acute infiltrates. No cardiomegaly. Right-sided permanent central line tip of the catheter has worked its way retrograde, catheter tip is now at the junction of the left jugular vein and subclavian vein. Hip/Pelvis X-Ray 03/08/18 00:00 IMPRESSION: No acute fracture. Abdomen/Pelvis CT 03/10/18 00:00 IMPRESSION: 1. No urinary tract calculi or hydronephrosis. 2. Feces like material at the distal small bowel, suggestive of delayed intestinal transit. Moderate amount of stool at the colon. Assessment & Plan - Diagnosis (1) Gastroenteritis due to Clostridium difficile Is this a current diagnosis for this admission?: Yes (2) Hypokalemia Is this a current diagnosis for this admission?: Yes (3) Coronary artery disease Qualifiers: Coronary Disease-Associated Artery/Lesion type: [place] artery [place] vs. transplanted heart: [place] heart Is this a current diagnosis for this admission?: Yes (4) Recurrent urinary tract infection Is this a current diagnosis for this admission?: Yes Plan: Start ertapenem
[2018-03-10] MEDS: ZOLPIDEM TARTRATE 5 MG TABLET PO SCH (22:12)
[2018-03-10] MEDS: ATORVASTATIN CALCIUM 40 MG TABLET PO SCH (22:12)
[2018-03-10] MEDS ORDERED: ERTAPENEM SODIUM INJ 1 GM VIAL ONE (22:56)
[2018-03-10] MEDS: ERTAPENEM SODIUM 1 GM in NORMAL SALINE 50 ML IV SCH (23:39)
[2018-03-11] MEDS: PROMETHAZINE HCL INJ 25 MG/1 ML VIAL IV PRN (04:30)
[2018-03-11] MEDS: MORPHINE SULFATE 10 MG/ML INJ IV PRN ×4 (04:30→22:24)
[2018-03-11] MEDS: VANCOMYCIN HCL INJ 500 MG VIAL PO SCH ×4 (05:34→22:23)
[2018-03-11] MEDS: GABAPENTIN 300 MG CAPSULE PO SCH ×3 (05:37→20:37)
[2018-03-11] MEDS: METRONIDAZOLE 500 MG/NS RTU 500 MG/100 ML RTUPB IV SCH ×3 (05:37→20:37)
[2018-03-11] MEDS: HYDROXYCHLOROQUINE SULFATE 200 MG TABLET PO SCH ×2 (11:19→17:21)
[2018-03-11] MEDS: APIXABAN 5 MG TABLET PO SCH ×2 (11:19→17:21)
[2018-03-11] MEDS: POTASSIUM CHLORIDE 10 MEQ CAPSULE.ER PO SCH (11:20)
[2018-03-11] MEDS: PROMETHAZINE HCL 25 MG TABLET PO SCH ×4 (11:20→20:36)
--- NOTE | 2018-03-11 20:01 | PDOC PROGRESS REPORT ---
Subjective Progress Note for:: 03/18/18 Subjective:: The urine culture grew gram-negative ilia continue empiric IV antibiotic Reason For Visit: PERSISTANT VOMITING, C-DIFF Physical Exam Vital Signs: Temp Pulse Resp BP Pulse Ox 98.4 F 79 17 144/65 H 99 03/11/18 19:32 03/11/18 19:32 03/11/18 19:32 03/11/18 19:32 03/11/18 19:32 Intake & Output 03/10/18 03/11/18 03/12/18 06:59 06:59 06:59 Intake Total 4984 3734 1780 Output Total 3200 1525 600 Balance 1784 2209 1180 Weight 86.5 kg 196.9 kg General appearance: PRESENT: no acute distress, well-developed, well-nourished Head exam: PRESENT: atraumatic, normocephalic Eye exam: PRESENT: conjunctiva pink, EOMI, PERRLA Ear exam: PRESENT: normal external ear exam Mouth exam: PRESENT: moist, tongue midline Neck exam: PRESENT: full ROM Respiratory exam: PRESENT: clear to auscultation martínez Cardiovascular exam: PRESENT: RRR, +S1, +S2 Pulses: PRESENT: normal dorsalis pedis pul, +2 pedal pulses bilateral Vascular exam: PRESENT: normal capillary refill GI/Abdominal exam: PRESENT: normal bowel sounds, soft. ABSENT: distended, guarding, mass, organolmegaly, rebound, tenderness Rectal exam: PRESENT: deferred Neurological exam: PRESENT: alert, awake, oriented to person, oriented to place , oriented to time, oriented to situation, CN II-XII grossly intact Psychiatric exam: PRESENT: appropriate affect, normal mood Skin exam: PRESENT: dry, intact, warm. ABSENT: cyanosis, rash Results Laboratory Results: 03/06/18 14:07 03/06/18 14:07 03/06/18 03/06/18 03/06/18 14:07 14:07 20:57 Creatine Kinase 28 L 23 L CK-MB (CK-2) 0.41 Troponin I < 0.012 03/06/18 03/07/18 03/07/18 20:57 03:00 03:00 Creatine Kinase 27 L CK-MB (CK-2) 0.29 0.39 Troponin I < 0.012 < 0.012 Impressions: Chest X-Ray 03/06/18 13:23 IMPRESSION: No acute infiltrates. No cardiomegaly. Right-sided permanent central line tip of the catheter has worked its way retrograde, catheter tip is now at the junction of the left jugular vein and subclavian vein. Hip/Pelvis X-Ray 03/08/18 00:00 IMPRESSION: No acute fracture. Abdomen/Pelvis CT 03/10/18 00:00 IMPRESSION: 1. No urinary tract calculi or hydronephrosis. 2. Feces like material at the distal small bowel, suggestive of delayed intestinal transit. Moderate amount of stool at the colon. Assessment & Plan - Diagnosis (1) Gastroenteritis due to Clostridium difficile Is this a current diagnosis for this admission?: Yes (2) Hypokalemia Is this a current diagnosis for this admission?: Yes (3) Coronary artery disease Qualifiers: Coronary Disease-Associated Artery/Lesion type: [place] artery [place] vs. transplanted heart: [place] heart Is this a current diagnosis for this admission?: Yes (4) Recurrent urinary tract infection Is this a current diagnosis for this admission?: Yes
[2018-03-11] MEDS: NORMAL SALINE 1000 ML 1,000 ML IV PRN (20:34)
[2018-03-11] MEDS: ATORVASTATIN CALCIUM 40 MG TABLET PO SCH (20:37)
[2018-03-11] MEDS: ZOLPIDEM TARTRATE 5 MG TABLET PO SCH (20:37)
[2018-03-11] MEDS: ERTAPENEM SODIUM 1 GM in NORMAL SALINE 50 ML IV SCH (20:38)
[2018-03-12] MEDS: MORPHINE SULFATE 10 MG/ML INJ IV PRN ×3 (02:50→13:56)
[2018-03-12] MEDS: VANCOMYCIN HCL INJ 500 MG VIAL PO SCH ×4 (06:18→23:46)
[2018-03-12] MEDS: GABAPENTIN 300 MG CAPSULE PO SCH ×3 (06:18→21:37)
[2018-03-12] MEDS: METRONIDAZOLE 500 MG/NS RTU 500 MG/100 ML RTUPB IV SCH ×3 (06:18→21:38)
[2018-03-12] MEDS: APIXABAN 5 MG TABLET PO SCH ×2 (10:32→18:46)
[2018-03-12] MEDS: POTASSIUM CHLORIDE 10 MEQ CAPSULE.ER PO SCH (10:33)
[2018-03-12] MEDS: HYDROXYCHLOROQUINE SULFATE 200 MG TABLET PO SCH ×2 (10:33→18:46)
[2018-03-12] MEDS: PROMETHAZINE HCL 25 MG TABLET PO SCH ×4 (10:34→21:36)
[2018-03-12] MEDS: OXYCODONE-ACETAMINOPHEN 5-325 MG TABLET PO PRN ×2 (10:48→21:35)
[2018-03-12] MEDS: NORMAL SALINE 1000 ML 1,000 ML IV PRN ×2 (10:50→21:40)
[2018-03-12] MEDS: ZOLPIDEM TARTRATE 5 MG TABLET PO SCH (21:35)
[2018-03-12] MEDS: ATORVASTATIN CALCIUM 40 MG TABLET PO SCH (21:36)
[2018-03-12] MEDS: OXYCODONE HCL IR 5 MG TABLET PO PRN (21:36)
[2018-03-12] MEDS ORDERED: VANCOMYCIN HCL INJ 500 MG VIAL ONE (23:34)
[2018-03-12] MEDS: SULFAMETHOXAZOLE/TRIMETHOPRIM 800-160 MG TABLET PO SCH (23:45)
[2018-03-13] MEDS: OXYCODONE HCL IR 5 MG TABLET PO PRN ×3 (02:47→18:31)
[2018-03-13] MEDS: OXYCODONE-ACETAMINOPHEN 5-325 MG TABLET PO PRN ×3 (02:47→18:30)
[2018-03-13] MEDS: MORPHINE SULFATE 10 MG/ML INJ IV PRN ×3 (06:43→21:40)
[2018-03-13] MEDS: METRONIDAZOLE 500 MG/NS RTU 500 MG/100 ML RTUPB IV SCH (06:46)
[2018-03-13] MEDS: GABAPENTIN 300 MG CAPSULE PO SCH ×3 (06:47→21:37)
[2018-03-13] MEDS: VANCOMYCIN HCL INJ 500 MG VIAL PO SCH ×3 (06:49→18:29)
[2018-03-13] MEDS: HYDROXYCHLOROQUINE SULFATE 200 MG TABLET PO SCH ×2 (10:30→18:30)
[2018-03-13] MEDS: POTASSIUM CHLORIDE 10 MEQ CAPSULE.ER PO SCH (10:30)
[2018-03-13] MEDS: APIXABAN 5 MG TABLET PO SCH ×2 (10:30→18:30)
[2018-03-13] MEDS: SULFAMETHOXAZOLE/TRIMETHOPRIM 800-160 MG TABLET PO SCH ×2 (10:30→21:38)
[2018-03-13] MEDS: PROMETHAZINE HCL 25 MG TABLET PO SCH ×4 (10:31→21:38)
--- NOTE | 2018-03-13 12:44 | PDOC DISCHARGE SUMMARY ---
General - Admit/Disc Date/PCP Admission Date/Primary Care Provider: 03/09/18 08:50 INA MUÑOZ MD Discharge Date: 03/14/18 - Discharge Diagnosis (1) Gastroenteritis due to Clostridium difficile Is this a current diagnosis for this admission?: Yes (2) Hypokalemia Is this a current diagnosis for this admission?: Yes (3) Coronary artery disease Is this a current diagnosis for this admission?: Yes (4) Recurrent urinary tract infection Is this a current diagnosis for this admission?: Yes (5) E. coli UTI (urinary tract infection) Is this a current diagnosis for this admission?: Yes - Additional Information Prescriptions: Metronidazole [Flagyl 500 mg Tablet] 500 mg PO TID #21 tablet Sulfamethoxazole/Trimethoprim [Bactrim 400-80 mg Tablet] 1 each PO BID #14 tablet Home Medications: Atorvastatin Calcium [Lipitor 40 mg Tablet] 40 mg PO QHS 01/08/18 Hydroxychloroquine Sulfate [Plaquenil] 200 mg PO BID 01/08/18 Zaleplon [Sonata] 10 mg PO HSP PRN 01/08/18 Gabapentin 600 mg PO TID 01/11/18 Apixaban [Eliquis] 5 mg PO BID 03/06/18 Bethanechol Chloride [Urecholine 10 mg Tablet] 10 mg PO Q8 03/06/18 Hydrocodone Bitartrate [Zohydro ER] 40 mg PO Q12 03/06/18 Oxycodone HCl/Acetaminophen [Oxycodone-Acetaminophen 10-325] 1 each PO Q6HP PRN 03/06/18 Metronidazole [Flagyl 500 mg Tablet] 500 mg PO TID #21 tablet 03/13/18 Sulfamethoxazole/Trimethoprim [Bactrim 400-80 mg Tablet] 1 each PO BID #14 tablet 03/13/18 History of Present Illness History of Present Illness: VALENTE MUNOZ is a 62 year old female, She came to the office today for evaluation of severe diarrhea ,vomiting, she has the symptoms in the last 3 days, she is unable to keep any food down, the diarrhea is profuse loose watery , she was admitted directly from the office to the hospital for evaluation and management she was clinically dehydrated, the stool study came back positive for Clostridium difficile toxin Hospital Course Hospital Course: Patient was admitted initially for observation for the management of C. difficile colitis, hospital course was complicated with UTI due to E. coli sensitive to all antibiotic. She has history of recurrent UTI due to different organisms including ESBL E. coli and Enterococcus faecalis, she was empirically treated with IV ertapenem because of previous history of ESBL E. coli. The urine culture came back as E. coli sensitive to all antibiotic. She was admitted initially for C. difficile colitis this was treated with p.o. vancomycin and IV Flagyl. She was admitted for observation, but because of the urinary symptoms she had a prolonged hospital stay beyond 24 hours that is typical for observation. Physical Exam Vital Signs: Temp Pulse Resp BP Pulse Ox 98.2 F 81 18 131/57 H 100 03/13/18 12:16 03/13/18 12:16 03/13/18 12:16 03/13/18 12:16 03/13/18 12:16 Intake & Output 03/12/18 03/13/18 03/14/18 06:59 06:59 06:59 Intake Total 3300 7186 Output Total 4050 Balance -750 7186 Weight 89.7 kg 89.7 kg General appearance: PRESENT: no acute distress Eye exam: PRESENT: PERRLA Respiratory exam: PRESENT: clear to auscultation martínez Cardiovascular exam: PRESENT: +S1, +S2 Neurological exam: PRESENT: alert Results Laboratory Results: 03/06/18 14:07 03/06/18 14:07 03/06/18 03/06/18 03/06/18 14:07 14:07 20:57 Creatine Kinase 28 L 23 L CK-MB (CK-2) 0.41 Troponin I < 0.012 03/06/18 03/07/18 03/07/18 20:57 03:00 03:00 Creatine Kinase 27 L CK-MB (CK-2) 0.29 0.39 Troponin I < 0.012 < 0.012 Impressions: Chest X-Ray 03/06/18 13:23 IMPRESSION: No acute infiltrates. No cardiomegaly. Right-sided permanent central line tip of the catheter has worked its way retrograde, catheter tip is now at the junction of the left jugular vein and subclavian vein. Hip/Pelvis X-Ray 03/08/18 00:00 IMPRESSION: No acute fracture. Abdomen/Pelvis CT 03/10/18 00:00 IMPRESSION: 1. No urinary tract calculi or hydronephrosis. 2. Feces like material at the distal small bowel, suggestive of delayed intestinal transit. Moderate amount of stool at the colon. Qualifiers - * PATIENT BEING DISCHARGED WITH ANY OF THE FOLLOWING DIAGNOSIS: No
[2018-03-13] MEDS ORDERED: HYDROXYCHLOROQUINE SULFATE 200 MG TABLET ONE (18:26)
[2018-03-13] MEDS: ZOLPIDEM TARTRATE 5 MG TABLET PO SCH (21:38)
[2018-03-13] MEDS: ATORVASTATIN CALCIUM 40 MG TABLET PO SCH (21:38)
[2018-03-13] MEDS: NORMAL SALINE 1000 ML 1,000 ML IV PRN (21:45)
[2018-03-14] MEDS: VANCOMYCIN HCL INJ 500 MG VIAL PO SCH (00:10)
[2018-03-14] MEDS: MORPHINE SULFATE 10 MG/ML INJ IV PRN ×3 (03:18→13:16)
[2018-03-14] MEDS: GABAPENTIN 300 MG CAPSULE PO SCH ×2 (06:11→13:16)
[2018-03-14] MEDS: NORMAL SALINE 1000 ML 1,000 ML IV PRN (07:44)
[2018-03-14] MEDS: HYDROXYCHLOROQUINE SULFATE 200 MG TABLET PO SCH (10:13)
[2018-03-14] MEDS: APIXABAN 5 MG TABLET PO SCH (10:13)
[2018-03-14] MEDS: PROMETHAZINE HCL 25 MG TABLET PO SCH ×2 (10:13→13:16)
[2018-03-14] MEDS: POTASSIUM CHLORIDE 10 MEQ CAPSULE.ER PO SCH (10:13)
[2018-03-14] MEDS: SULFAMETHOXAZOLE/TRIMETHOPRIM 800-160 MG TABLET PO SCH (10:13)
[2018-03-14 16:43] VITALS: BP 102/46
== END 2018-03-14 17:29 | disposition home or self-care (01) | DRG 372 ==
LOC: INTOOBSV 12:50 → UNDOADMIN 12:50 → 4N 12:50 → OBSVTOIN 03-09 08:50
PROVIDERS: ADMIT Internal Medicine; ATTEND Internal Medicine
DX: A04.72 Enterocolitis due to Clostridium difficile, not specified as recurrent (principal); N39.0 Urinary tract infection, site not specified; E87.6 Hypokalemia; E86.0 Dehydration; I11.0 Hypertensive heart disease with heart failure; I50.9 Heart failure, unspecified; I25.10 Atherosclerotic heart disease of native coronary artery without angina pectoris; E78.5 Hyperlipidemia, unspecified; J44.9 Chronic obstructive pulmonary disease, unspecified; E03.9 Hypothyroidism, unspecified; M25.551 Pain in right hip; B96.20 Unspecified Escherichia coli [E. coli] as the cause of diseases classified elsewhere; I25.2 Old myocardial infarction; Z79.01 Long term (current) use of anticoagulants; Z79.899 Other long term (current) drug therapy
CPT/HCPCS: 36415; 71045; 74176; 80048; 80076; 81001; 82550; 82553; 84484; 85027; 87086; 87088; 87186; 87493; 93005; 93010; G0378; G0379; J1642; J2270; J2550; J3370; J3490; J7030

== ENCOUNTER 2018-03-16 13:26 | Emergency (ER) | payer MEDICARE, OTHER ==
[2018-03-16] MEDS ORDERED: NORMAL SALINE 1000 ML 1,000 ML IV ONE (13:41)
[2018-03-16] MEDS ORDERED: ONDANSETRON 4 MG TAB.RAPDIS PO ONE (13:41)
[2018-03-16] MEDS ORDERED: KETOROLAC TROMETHAMINE INJ/PF 30 MG/1 ML SDV IV ONE (13:41)
[2018-03-16] MEDS ORDERED: MORPHINE SULFATE 10 MG/ML INJ IV ONE (13:41)
--- NOTE | 2018-03-16 13:46 | ER Document Report ---
ED Medical Screen (RME) - General Chief Complaint: Abdominal Pain Stated Complaint: VOMITING Time Seen by Provider: 03/16/18 13:35 Notes: The patient is a 62-year-old female, past medical history frequent UTIs that grew out ESBL, diverticulitis, C. diff, presents with 3 days of nausea, vomiting and lower abdominal pain. She was discharged from the hospital 2 days ago due to dehydration from C. difficile. She is unable to take her medications because she is vomiting too much. She has also not had anything to eat or drink for the past 2 days. Primary care physician is Dr. Muñoz. PE: Tachycardia, tenderness over lower abdomen (limited exam in RME chair), normal bowel sounds I have greeted and performed a rapid initial assessment of this patient. A comprehensive ED assessment and evaluation of the patient, analysis of test results and completion of the medical decision making process will be conducted by additional ED providers. TRAVEL OUTSIDE OF THE [place] IN LAST 30 DAYS: No - Related Data Allergies/Adverse Reactions: irbesartan [From Avapro] Allergy (Severe, Verified 03/16/18 13:27) swelling of face nitrofurantoin macrocrystalline [From Macrobid] Allergy (Severe, Verified 13:27) Generalized edema Penicillins Allergy (Severe, Verified 03/16/18 13:27) eyes swelled pregabalin [From Lyrica] Allergy (Severe, Verified 03/16/18 13:27) Equilibrium Issues venom-honey bee [bee venom (honey bee)] Allergy (Verified 03/16/18 13:27) Anaphylaxis Past Medical History - Social History Chew tobacco use (# tins/day): No Frequency of alcohol use: None Drug Abuse: None - Past Medical History Cardiac Medical History: Reports: Hx Congestive Heart Failure, Hx Coronary Artery Disease, Hx DVT, Hx Heart Attack, Hx Hypercholesterolemia, Hx Hypertension, Hx Pulmonary Embolism Denies: Hx Atrial Fibrillation, Hx Peripheral Vascular Disease, Hx Heart Murmur Pulmonary Medical History: Reports: Hx Bronchitis, Hx COPD Denies: Hx Asthma, Hx Pneumonia, Hx Respiratory Failure, Hx Sleep Apnea, Hx Tuberculosis Neurological Medical History: Denies: Hx Cerebrovascular Accident, Hx Seizures Endocrine Medical History: Reports: Hx Hypothyroidism. Denies: Hx Hyperthyroidism Renal/ Medical History: Reports: Hx Ovarian Cysts. Denies: Hx End Stage Renal Disease, Hx Kidney Stones, Hx Peritoneal Dialysis Malignancy Medical History: Reports: Hx Cervical Cancer, Hx Ovarian Cancer. Denies: Hx Breast Cancer, Hx Leukemia, Hx Lung Cancer GI Medical History: Reports: Hx Gastroesophageal Reflux Disease, Hx Hiatal Hernia - Repaired, Hx Irritable Bowel, Hx Colonoscopy, Hx Endoscopy. Denies: Hx Cirrhosis, Hx Crohn's Disease, Hx Hepatitis, Hx Pancreatitis, Hx Ulcer Musculoskeltal Medical History: Reports Hx Arthritis - Lupus, Reports Hx Fibromyalgia - Lupus, Denies Hx Multiple Sclerosis, Reports Hx Musculoskeletal Deformity, Reports Hx Musculoskeletal Trauma Skin Medical History: Reports Hx Cellulitis - Recently treated, right breast Psychiatric Medical History: Reports: Hx Anxiety, Hx Depression Denies: Hx Bipolar Disorder, Hx Dementia, Hx Post Traumatic Stress Disorder, Hx Schizophrenia Traumatic Medical History: Reports: Hx Fractures - Knee and hip Infectious Medical History: Reports: Hx C-Diff - Was negative in October2015. Not yet successfully collected stool, Hx MRSA, Hx VRE. Denies: Hx Hepatitis, Hx HIV Past Surgical History: Reports: Hx Appendectomy, Hx Bowel Surgery - Polyps, adhesions, Hx Cardiac Catheterization, Hx Cardiac Surgery - 2 stents 2014, Hx Section, Hx Cholecystectomy, Hx Coronary Stent - 3 stents, Hx Genitourinary Surgery - bladder sling, Hx Herniorrhaphy, Hx Hysterectomy, Hx Orthopedic Surgery - Right knee, bilateral knee replacements and hip replacement metal plate in, Hx Tonsillectomy. Denies: Hx Colostomy, Hx Coronary Artery Bypass Graft, Hx Gastric Bypass Surgery, Hx Mastectomy, Hx Open Heart Surgery, Hx Pacemaker, Hx Tubal Ligation - Immunizations Immunizations up to date: Yes History of Influenza Vaccine for 06/2017 - 11/2017 Season: Yes Influenza Administration Date for 06/2017 - 11/2017 Season: 06/10/17 Physical Exam - Vital signs Vitals: Temp Pulse Resp BP 98.4 F 103 H 18 118/75 03/16/18 13:33 03/16/18 13:33 03/16/18 13:33 03/16/18 13:33 Course - Vital Signs Vital signs: Temp Pulse Resp BP Pulse Ox 98.4 F 103 H 18 118/75 03/16/18 13:33 03/16/18 13:33 03/16/18 13:33 03/16/18 13:33 Doctor's Discharge - Discharge Referrals: IAN MUÑOZ MD [Primary Care Provider] - Follow up as needed
--- NOTE | 2018-03-16 14:37 | ER Document Report ---
ED General - General Chief Complaint: Abdominal Pain Stated Complaint: VOMITING Time Seen by Provider: 03/16/18 13:35 Mode of Arrival: Ambulatory Information source: Patient TRAVEL OUTSIDE OF THE [place] IN LAST 30 DAYS: No - HPI Notes: 62-year-old female with an extensive history of UTIs that grew out ESBL kielbsiella, hypokalemia,nephrolithiasis, pyelonephritis, C. difficile, VRE, ovarian and cervical cancer, CHF, CAD, PE, hypertension, DVT, pneumonia, CVA, seizures, end-stage renal disease, lupus, etc. presents to the ED with complaints of 3 days of nausea vomiting diarrhea with lower abdominal pain, was recently discharged from the hospital on March 13 for weakness, nausea vomiting diarrhea and symptoms of pyelonephritis. Patient was advised to follow-up with her primary care, Dr. Muñoz, within 2 days. Patient states that she has been really she has had excessive nausea marked weakness. Patient states her bowel movements have appear to be darker in color than normal. Denies fevers, chills, chest pain,palpitations, shortness of breath, dyspnea,hematuria, blurred vision, double vision, loss of vision, speech changes, LH, dizziness, syncope, headaches, wheezing, ST, URI, neck pain, bowel or bladder dysfunction, saddle anesthesia, numbness or tingling in bilateral upper or lower extremities equally, muscle paralysis, weakness in bilateral upper or lower extremities equally or rash. Denies IV drug use. - Related Data Allergies/Adverse Reactions: irbesartan [From Avapro] Allergy (Severe, Verified 03/16/18 13:27) swelling of face nitrofurantoin macrocrystalline [From Macrobid] Allergy (Severe, Verified 13:27) Generalized edema Penicillins Allergy (Severe, Verified 03/16/18 13:27) eyes swelled pregabalin [From Lyrica] Allergy (Severe, Verified 03/16/18 13:27) Equilibrium Issues venom-honey bee [bee venom (honey bee)] Allergy (Verified 03/16/18 13:27) Anaphylaxis Past Medical History - General Information source: Patient, Relative - Social History Smoking Status: Never Smoker Chew tobacco use (# tins/day): No Frequency of alcohol use: None Drug Abuse: None Family History: Arthritis, COPD, Hyperlipidemia, Hypertension, Malignancy, Thyroid Disfunction Patient has suicidal ideation: No Patient has homicidal ideation: No - Past Medical History Cardiac Medical History: Reports: Hx Congestive Heart Failure, Hx Coronary Artery Disease, Hx DVT, Hx Heart Attack, Hx Hypercholesterolemia, Hx Hypertension, Hx Pulmonary Embolism Denies: Hx Atrial Fibrillation, Hx Peripheral Vascular Disease, Hx Heart Murmur Pulmonary Medical History: Reports: Hx Bronchitis, Hx COPD Denies: Hx Asthma, Hx Pneumonia, Hx Respiratory Failure, Hx Sleep Apnea, Hx Tuberculosis Neurological Medical History: Denies: Hx Cerebrovascular Accident, Hx Seizures Endocrine Medical History: Reports: Hx Hypothyroidism. Denies: Hx Hyperthyroidism Renal/ Medical History: Reports: Hx Ovarian Cysts. Denies: Hx End Stage Renal Disease, Hx Kidney Stones, Hx Peritoneal Dialysis Malignancy Medical History: Reports: Hx Cervical Cancer, Hx Ovarian Cancer. Denies: Hx Breast Cancer, Hx Leukemia, Hx Lung Cancer GI Medical History: Reports: Hx Gastroesophageal Reflux Disease, Hx Hiatal Hernia - Repaired, Hx Irritable Bowel, Hx Colonoscopy, Hx Endoscopy. Denies: Hx Cirrhosis, Hx Crohn's Disease, Hx Hepatitis, Hx Pancreatitis, Hx Ulcer Musculoskeltal Medical History: Reports Hx Arthritis - Lupus, Reports Hx Fibromyalgia - Lupus, Denies Hx Multiple Sclerosis, Reports Hx Musculoskeletal Deformity, Reports Hx Musculoskeletal Trauma Skin Medical History: Reports Hx Cellulitis - Recently treated, right breast Psychiatric Medical History: Reports: Hx Anxiety, Hx Depression Denies: Hx Bipolar Disorder, Hx Dementia, Hx Post Traumatic Stress Disorder, Hx Schizophrenia Traumatic Medical History: Reports: Hx Fractures - Knee and hip Infectious Medical History: Reports: Hx C-Diff - Was negative in October2015. Not yet successfully collected stool, Hx MRSA, Hx VRE. Denies: Hx Hepatitis, Hx HIV Past Surgical History: Reports: Hx Appendectomy, Hx Bowel Surgery - Polyps, adhesions, Hx Cardiac Catheterization, Hx Cardiac Surgery - 2 stents 2014, Hx Section, Hx Cholecystectomy, Hx Coronary Stent - 3 stents, Hx Genitourinary Surgery - bladder sling, Hx Herniorrhaphy, Hx Hysterectomy, Hx Orthopedic Surgery - Right knee, bilateral knee replacements and hip replacement metal plate in, Hx Tonsillectomy. Denies: Hx Colostomy, Hx Coronary Artery Bypass Graft, Hx Gastric Bypass Surgery, Hx Mastectomy, Hx Open Heart Surgery, Hx Pacemaker, Hx Tubal Ligation - Immunizations Immunizations up to date: Yes Hx Pneumococcal Vaccination: 05/20/11 Review of Systems - Review of Systems Constitutional: See HPI EENT: No symptoms reported Cardiovascular: No symptoms reported Respiratory: No symptoms reported Gastrointestinal: See HPI Genitourinary: See HPI Female Genitourinary: No symptoms reported Musculoskeletal: No symptoms reported Skin: No symptoms reported Hematologic/Lymphatic: No symptoms reported Neurological/Psychological: Weakness Physical Exam - Vital signs Vitals: Temp Pulse Resp BP 98.4 F 103 H 18 118/75 03/16/18 13:33 03/16/18 13:33 03/16/18 13:03/16/18 13:33 - Notes Notes: PHYSICAL EXAMINATION: GENERAL: Chronically ill-appearing, well-nourished and in no acute distress. HEAD: Atraumatic, normocephalic. EYES: Pupils equal round and reactive to light, extraocular movements intact, conjunctiva are normal. ENT: Nares patent, oropharynx clear without exudates. Moist mucous membranes. NECK: Normal range of motion, supple without lymphadenopathy LUNGS: Breath sounds clear to auscultation bilaterally and equal. No wheezes rales or rhonchi. HEART: Regular rate and rhythm without murmurs ABDOMEN: Soft, generalized abdomen. No guarding, no rebound. No masses appreciated. Bilateral CVA tenderness Female : deferred Musculoskeletal: Normal range of motion, no pitting or edema. No cyanosis. NEUROLOGICAL: Cranial nerves grossly intact. Normal speech, normal gait. Normal sensory, motor exams PSYCH: Normal mood, normal affect. SKIN: Warm, Dry, normal turgor, no rashes or lesions noted. Course - Re-evaluation Re-evalutation: 65-year-old female presents to the ED with complaints of nausea vomiting, dehydration for the last 3 days. Patient was recently discharged from the ED on March 13, came back to the ED for complaints of nausea and vomiting and concerns of dehydration. Does have a significant history of ESBL UTIs, however patient's urinalysis today was negative for UTI, hematuria proteinuria. CMP was unremarkable, EKG was negative for STEMI, chest x-ray was normal. CBC shows slight leukocytosis. Renal ultrasound was negative for any acute findings as well as a KUB negative for any acute abdominal disease. Chest x- ray. Guaiac was negative. 1750- 150/77 BP, 100 pulse ox, 73 HR, 20RR. patient has not had any nausea, vomiting or diarrhea throughout the duration of her stay in the ED. Discussed laboratory, diagnostic and clinical findings with Dr. Giovanna Noguera, hospitalist covering for Dr. Muñoz, felt that patient would be appropriate to be discharged home due to laboratory findings being within normal limits, all imaging normal, patient not having any active nausea vomiting or diarrhea while she, guaiac stool negative, discussed findings with patient and family, discussed with him that if any symptoms become worse such as increased weakness, fever, irretractable vomiting, diarrhea, coffee-ground emesis, black tarry stool, etc. to return to the ED immediately by calling 911. I have reevaluated this patient multiple times and no significant life threatening changes such as acute appendicitis, bowel obstruction, acute cholecystitis, diverticulitis, hernia, pancreatitis, pelvic inflammatory disease , perforated ulcer, tubo-ovarian abscess, no signs of toxicity, sepsis or peritonitis are noted. The patient and I have discussed the diagnosis and risks , and we agree with discharging home and close follow-up. We also discussed returning to the Emergency Department immediately if new or worsening symptoms occur with the understanding that symptoms and presentations can change. At this time will discharge with return precautions and follow-up recommendations. Verbal discharge instructions given a the bedside and opportunity for questions given. We have discussed the symptoms which are most concerning (e.g. , bloody stool, fever, changing or worsening pain, vomiting) that necessitate immediate return. Medication warnings reviewed. All questions and concerns answered by this provider. Patient is in agreement with this plan and has verbalized understanding of return precautions and the need for primary care follow-up in the next 24-72 hours. Patient verbalized understanding of plan of care and agree with plan of care. - Vital Signs Vital signs: Temp Pulse Resp BP Pulse Ox 98.4 F 103 H 15 158/70 H 100 03/16/18 13:33 03/16/18 13:33 03/16/18 18:02 03/16/18 18:02 03/16/18 18:02 - Laboratory Result Diagrams: 03/16/18 14:19 03/16/18 14:19 Laboratory results interpreted by me: 03/16/18 03/16/18 03/16/18 14:19 14:19 17:00 WBC 10.7 H Hgb 11.8 L Hct 34.8 L MCV 77 L MCH 26.3 L RDW 17.9 H Seg Neutrophils % 87.4 H Lymphocytes % 7.6 L Absolute Neutrophils 9.3 H APTT 36.7 H BUN 4 L Discharge - Discharge Clinical Impression: Gastroenteritis, resolved, Dehydration Condition: Stable Disposition: HOME, SELF-CARE Instructions: Dehydration ([facility]), Gastroenteritis (adult) ([facility]) Additional Instructions: You have been seen in the Emergency Department (ED) today for nausea and vomiting. Your work up today has not shown a clear cause for your symptoms. You have been prescribed Zofran; please use as prescribed as needed for your nausea. Follow up with your doctor as soon as possible regarding today's emergent visit and your symptoms of nausea. Return to the Emergency Department (ED) if you develop abdominal pain, bloody vomiting, bloody diarrhea, if you are unable to tolerate fluids due to vomiting , or if you develop other symptoms that concern you. Please be sure to drink plenty of fluids while out in the heat. You can purchase packets of electrolyte replacement solutions such as Pedialyte or propel that you can add to plain water. This will help to make sure that you are getting adequate electrolytes in addition to fluids while working outside. Please return to the emergency department if you pass out, developed diffuse muscle cramping, have persistent vomiting, or have any other symptoms that are worrisome to you. Prescriptions: Ondansetron [Zofran Odt 4 mg Tablet] 1 - 2 tab PO Q4H PRN #15 tab.rapdis PRN Reason: For Nausea/Vomiting Referrals: IAN MUÑOZ MD [Primary Care Provider] - Follow up tomorrow
[2018-03-16 15:06] LABS: ABSOLUTE LYMPHOCYTES (AUTO) 0.8 10^3/uL (0.5-4.7); ABSOLUTE MONOCYTES (AUTO) 0.5 10^3/uL (0.1-1.4); ABSOLUTE NEUT (AUTO) 9.3 10^3/uL (1.7-8.2); BASOPHILS % (AUTO) 0.3 % (0-2); EOSINOPHILS % (AUTO) 0.1 % (0-6); HEMATOCRIT 34.8 % (36.0-47.0); HEMOGLOBIN 11.8 g/dL (12.0-15.5); LYMPHOCYTES % (AUTO) 7.6 % (13-45); MEAN CORPUSCULAR HEMOGLOBIN 26.3 pg (27.0-33.4); MEAN CORPUSCULAR VOLUME 77 fl (80-97); MONOCYTES % (AUTO) 4.6 % (3-13); PLATELET COUNT 330 10^3/uL (150-450); RED CELL DISTRIBUTION WIDTH 17.9 % (11.5-14.0); SEGMENTED NEUTROPHILS % (AUTO) 87.4 % (42-78); TOTAL CELLS COUNTED % (AUTO) 100 %; WHITE BLOOD COUNT 10.7 10^3/uL (4.0-10.5)
[2018-03-16 15:10] LABS: ALANINE AMINOTRANSFERASE 19 U/L (9-52); ALBUMIN 3.8 g/dL (3.5-5.0); ALKALINE PHOSPHATASE 105 U/L (38-126); ANION GAP 12 (5-19); ASPARTATE AMINO TRANSFERASE 16 U/L (14-36); BILIRUBIN,DIRECT 0.3 mg/dL (0.0-0.4); BILIRUBIN,TOTAL 0.5 mg/dL (0.2-1.3); BLOOD UREA NITROGEN 4 mg/dL (7-20); CALCIUM 9.1 mg/dL (8.4-10.2); CARBON DIOXIDE 24 mmol/L (22-30); CHLORIDE 101 mmol/L (98-107); GLUCOSE 105 mg/dL (75-110); LIPASE 56.2 U/L (23-300); POTASSIUM 3.6 mmol/L (3.6-5.0); SODIUM 137.1 mmol/L (137-145); TOTAL PROTEIN 6.3 g/dL (6.3-8.2)
--- NOTE | 2018-03-16 15:47 | RADIOLOGY REPORT (SQ) ---
EXAM DESCRIPTION: CHEST SINGLE VIEW COMPLETED DATE/TIME: 03/16/2018 3:18 pm REASON FOR STUDY: n/v/d, weakness COMPARISON: 03/06/2018 EXAM PARAMETERS: NUMBER OF VIEWS: One view. TECHNIQUE: Single frontal radiographic view of the chest acquired. RADIATION DOSE: NA LIMITATIONS: None. FINDINGS: LUNGS AND PLEURA: No opacities, masses or pneumothorax. No pleural effusion. MEDIASTINUM AND HILAR STRUCTURES: No masses. Contour normal. HEART AND VASCULAR STRUCTURES: Heart normal in size. Normal vasculature. BONES: No acute findings. HARDWARE: Right-sided central vascular access catheter appears stable in position. Likewise, a right anterior chest wall Port-A-Cath demonstrates stable positioning. Lower thoracic neurostimulator yenni ds are present. OTHER: No other significant finding. IMPRESSION: Stable radiographic appearance of the chest. No evidence of acute cardiopulmonary abnor mality. TECHNICAL DOCUMENTATION: JOB ID: [id number] [email or web address]- All Rights Reserved Reading location - IP/workstation name: [email or web address]
--- NOTE | 2018-03-16 15:49 | RADIOLOGY REPORT (SQ) ---
EXAM DESCRIPTION: KUB/ABDOMEN (SINGLE VIEW) COMPLETED DATE/TIME: 03/16/2018 3:18 pm REASON FOR STUDY: n/v/d, weakness COMPARISON: 11/20/2016 NUMBER OF VIEWS: One view. TECHNIQUE: Supine radiographic image of the abdomen acquired. LIMITATIONS: None. FINDINGS: BOWEL GAS PATTERN: Normal bowel gas pattern. No dilated loops. CALCIFICATIONS: Stable appearance of pelvic soft tissue calcifications. SOFT TISSUES: No gross mass or suggestion of organomegaly. HARDWARE: Stable position and appearance of a right lower abdominal medical office scheduler with thoracolumbar neurostimulator leads. Lumbosacral fusion hardware without evidence of complication. Ventral herni orrhaphy clips. Status post right total hip arthroplasty. BONES: Re- demonstration of an L1 compression deformity which does not appear to be significantly pro gressed in the study interval. OTHER: No other significant finding. IMPRESSION: NO RADIOGRAPHIC EVIDENCE FOR ACUTE ABDOMINAL DISEASE. TECHNICAL DOCUMENTATION: JOB ID: [id number] [employer]- All Rights Reserved Reading location - IP/workstation name: [email or web address]
[2018-03-16 16:08] LABS: CREATINE KINASE MB 0.44 ng/mL (<4.55); TROPONIN I 0.013 ng/mL
--- NOTE | 2018-03-16 16:29 | RADIOLOGY REPORT (SQ) ---
EXAM DESCRIPTION: U[employer] COMPLETED DATE/TIME: 03/16/2018 3:59 pm REASON FOR STUDY: cva tenderness, hx of nephrolithiasis COMPARISON: 10/26/2015 TECHNIQUE: Dynamic and static grayscale images acquired of the kidneys and bladder and recorded on P ACS. Additional selected color Doppler and spectral images recorded. LIMITATIONS: None. FINDINGS: RIGHT KIDNEY: Normal size. Normal echogenicity. No solid or suspicious masses. No h ydronephrosis. No calcifications. LEFT KIDNEY: Normal size. Normal echogenicity. No solid or suspicious masses. No hydronephrosi s. No calcifications. BLADDER: No masses. OTHER FINDINGS: No other significant finding. IMPRESSION: No evidence of obstructing urolithiasis. TECHNICAL DOCUMENTATION: JOB ID: [id number] [employer]- All Rights Reserved Reading location - IP/workstation name: [email or web address]
[2018-03-16 17:02] LABS: APPEARANCE,URINE CLEAR; BILIRUBIN,URINE NEGATIVE (NEGATIVE); COLOR,URINE STRAW; GLUCOSE, URINE NEGATIVE (NEGATIVE); KETONES,URINE NEGATIVE (NEGATIVE); LEUKOCYTE ESTERASE,URINE NEGATIVE (NEGATIVE); NITRITE,URINE NEGATIVE (NEGATIVE); PROTEIN,URINE NEGATIVE (NEGATIVE); URINE SPECIFIC GRAVITY 1.006; UROBILINOGEN,URINE NEGATIVE mg/dL (<2.0)
[2018-03-16] MEDS ORDERED: NORMAL SALINE 1000 ML 1,000 ML IV PRN (17:09)
[2018-03-16 17:18] LABS: INTERNATIONAL RATION (INR) 1.03
[2018-03-16 17:19] LABS: PARTIAL THROMBOPLASTIN TIME 36.7 SEC (23.5-35.8)
[2018-03-16] MEDS ORDERED: HEPARIN SOD (PORCINE) 1 UNIT/ML PF 3 ML SYRINGE IV PRN (19:01)
[2018-03-16 19:15] VITALS: BP 145/76
--- NOTE | 2018-03-16 21:07 | EKG REPORT ---
SEVERITY:- NORMAL ECG - SINUS RHYTHM : Confirmed by: Juan Manuel Clarke MD 16-Mar-2018 21:06:56
== END 2018-03-16 19:35 | disposition home or self-care (01) ==
LOC: ER 13:26
DX: K52.9 Noninfective gastroenteritis and colitis, unspecified (principal); E86.0 Dehydration; I25.10 Atherosclerotic heart disease of native coronary artery without angina pectoris; E03.9 Hypothyroidism, unspecified; Z87.440 Personal history of urinary (tract) infections; Z90.49 Acquired absence of other specified parts of digestive tract; Z95.5 Presence of coronary angioplasty implant and graft; Z90.710 Acquired absence of both cervix and uterus; Z96.653 Presence of artificial knee joint, bilateral; Z88.0 Allergy status to penicillin; Z91.030 Bee allergy status; Z88.8 Allergy status to other drugs, medicaments and biological substances
CPT/HCPCS: 93005; 36591; 99285; 36415; 87040; 87086; 82553; 82550; 83690; 85025; 85610; 85730; 82272; 80053; 81001; 84484; 83605; 71045; 74018; 76775; 93010; A9270; J1885; J2270; J7030; S0119

== ENCOUNTER 2018-03-18 14:51 | Inpatient (IN) | payer MEDICARE, OTHER ==
[2018-03-18] MEDS ORDERED: (PENDING PHARMACY ID) (Zaleplon [Sonata] 10 MG) PO PRN (16:52)
[2018-03-18] MEDS ORDERED: (PENDING PHARMACY ID) (Oxycodone Hcl/Acetaminophen [Oxycodone-Acetaminophen 10-325] 1 TAB) PO PRN (16:52)
[2018-03-18] MEDS ORDERED: CYCLOBENZAPRINE HCL 10 MG TABLET PO PRN (16:52)
[2018-03-18] MEDS ORDERED: (PENDING PHARMACY ID) (Sulfamethoxazole/Trimethoprim [Bactrim 400-80 Mg Tablet] 1 EACH) PO SCH (18:00)
[2018-03-18] MEDS: NORMAL SALINE 1000 ML 1,000 ML IV PRN (18:20)
[2018-03-18 18:29] LABS: APPEARANCE,URINE CLEAR; BILIRUBIN,URINE NEGATIVE (NEGATIVE); COLOR,URINE YELLOW; GLUCOSE, URINE NEGATIVE (NEGATIVE); HEMATOCRIT 35.5 % (36.0-47.0); KETONES,URINE NEGATIVE (NEGATIVE); LEUKOCYTE ESTERASE,URINE NEGATIVE (NEGATIVE); MEAN CORPUSCULAR HEMOGLOBIN 25.8 pg (27.0-33.4); MEAN CORPUSCULAR HGB CONC 33.8 g/dL (32.0-36.0); MEAN CORPUSCULAR VOLUME 77 fl (80-97); NITRITE,URINE NEGATIVE (NEGATIVE); PLATELET COUNT 328 10^3/uL (150-450); PROTEIN,URINE NEGATIVE (NEGATIVE); RED BLOOD COUNT 4.64 10^6/uL (3.72-5.28); RED CELL DISTRIBUTION WIDTH 17.6 % (11.5-14.0); URINE SPECIFIC GRAVITY 1.008; UROBILINOGEN,URINE NEGATIVE mg/dL (<2.0); WHITE BLOOD COUNT 11.5 10^3/uL (4.0-10.5)
[2018-03-18 18:50] LABS: ALANINE AMINOTRANSFERASE 15 U/L (9-52); ALBUMIN 3.8 g/dL (3.5-5.0); ALKALINE PHOSPHATASE 115 U/L (38-126); ANION GAP 14 (5-19); ASPARTATE AMINO TRANSFERASE 17 U/L (14-36); BILIRUBIN,DIRECT 0.4 mg/dL (0.0-0.4); BILIRUBIN,TOTAL 0.5 mg/dL (0.2-1.3); BLOOD UREA NITROGEN 5 mg/dL (7-20); CALCIUM 9.1 mg/dL (8.4-10.2); CARBON DIOXIDE 22 mmol/L (22-30); CHLORIDE 100 mmol/L (98-107); GLUCOSE 72 mg/dL (75-110); POTASSIUM 3.5 mmol/L (3.6-5.0); SODIUM 136.4 mmol/L (137-145); TOTAL PROTEIN 6.6 g/dL (6.3-8.2)
[2018-03-18] MEDS: OXYCODONE HCL IR 5 MG TABLET PO PRN (19:05)
[2018-03-18] MEDS: OXYCODONE-ACETAMINOPHEN 5-325 MG TABLET PO PRN (19:05)
[2018-03-18] MEDS ORDERED: (PENDING PHARMACY ID) (Oxycodone Hcl/Acetaminophen [Endocet 10-325 Mg Tablet] 1 TAB) PO PRN (20:14)
[2018-03-18] MEDS ORDERED: TIZANIDINE HCL 4 MG TABLET PO PRN (20:44)
[2018-03-18] MEDS: PROMETHAZINE HCL 25 MG TABLET PO PRN (21:56)
[2018-03-18] MEDS: APIXABAN 5 MG TABLET PO SCH (21:56)
[2018-03-18] MEDS: GABAPENTIN 300 MG CAPSULE PO SCH (21:56)
[2018-03-18] MEDS: ATORVASTATIN CALCIUM 40 MG TABLET PO SCH (21:56)
[2018-03-18] MEDS: HYDROXYCHLOROQUINE SULFATE 200 MG TABLET PO SCH (21:57)
[2018-03-18] MEDS ORDERED: BETHANECHOL CHLORIDE 10 MG PO SCH ×2 (22:00)
[2018-03-18] MEDS ORDERED: HYDROCODONE BITARTRATE 40 MG PO SCH (22:00)
[2018-03-18] MEDS ORDERED: ATORVASTATIN CALCIUM 40 MG TABLET PO SCH (22:00)
[2018-03-18] MEDS ORDERED: METRONIDAZOLE 500 MG TABLET PO SCH (22:00)
[2018-03-18] MEDS ORDERED: TIZANIDINE HCL 4 MG TABLET PO SCH (22:00)
[2018-03-18] MEDS ORDERED: CLOPIDOGREL BISULFATE 75 MG TABLET PO ONE (22:00)
--- NOTE | 2018-03-18 22:34 | PDOC H&P ---
History of Present Illness Admission Date/PCP: 03/18/18 14:51 IAN MUÑOZ MD History of Present Illness: VALENTE MUNOZ is a 62 year old female,She has persistent intractable diarrhea and vomiting, she was recently admitted in this hospital for evaluation of diarrhea, was positive for Clostridium difficile toxin, she was treated with improvement she was discharged home last week, she came to the office today with her daughter because she stated that she is not able to keep any food down. 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 She has underwent multiple endoscopies for evaluation of vomiting and diarrhea it was felt that she has gastroparesis, she was admitted because of concern for dehydration due to persistent vomiting she is brought here for observation. Past Medical History Cardiac Medical History: Reports: Congestive Heart Failure, Coronary Artery Disease, DVT, Myocardial Infarction, Hyperlipidema, Hypertension, Pulmonary Embolism Pulmonary Medical History: Reports: Bronchitis, Chronic Obstructive Pulmonary Disease (COPD) Endocrine Medical History: Reports: Hypothyroidism Malignancy Medical History: Reports: Cervical Cancer, Ovarian Cancer GI Medical History: Reports: Gastroesophageal Reflux Disease, Hiatal Hernia - Repaired Musculoskeltal Medical History: Reports: Arthritis - Lupus, Fibromyalgia - Lupus Psychiatric Medical History: Reports: Depression Hematology: Reports: Anemia - HX OF LOW NA AND K,LOW IRON WILL HAVE IRON TRANS FUSION 05/04. Infectious Medical History: Reports: Clostridium Difficile - Was negative in October2015. Not yet successfully collected stool, Methicillin-Resistant Staph Aureus, Vancomycin-Resistant Enterococci Past Surgical History Past Surgical History: Reports: Appendectomy, Cardiac Catheterization, Section, Cholecystectomy, Coronary Stent - 3 stents, Herniorrhaphy, Hysterectomy , Orthopedic Surgery - Right knee, bilateral knee replacements and hip replacement metal plate in, Tonsillectomy Social History Smoking Status: Former Smoker Frequency of Alcohol Use: Rare Hx Recreational Drug Use: No Drugs: None Hx Prescription Drug Abuse: No Family History Family History: Arthritis, COPD, Hyperlipidemia, Hypertension, Malignancy, Thyroid Disfunction Parental Family History Reviewed: Yes Children Family History Reviewed: Yes Sibling(s) Family History Reviewed.: Yes Medication/Allergy Home Medications: Atorvastatin Calcium [Lipitor 40 mg Tablet] 40 mg PO QHS 07/09/18 Bethanechol Chloride [Urecholine 10 mg Tablet] 10 mg PO Q8 03/18/18 Clopidogrel Bisulfate [Plavix 75 mg Tablet] 75 mg PO DAILY 03/18/18 Furosemide [Lasix 40 mg Tablet] 40 mg PO DAILY 03/18/18 Gabapentin [Neurontin] 600 mg PO Q8 03/18/18 Hydrocodone Bitartrate [Zohydro ER] 40 mg PO Q12 03/18/18 Oxycodone HCl/Acetaminophen [Endocet 10-325 mg Tablet] 1 tab PO Q6HP PRN Promethazine HCl [Phenergan 25 mg Tablet] 25 mg PO Q6HP PRN 03/18/18 Tizanidine HCl [Zanaflex 4 mg Tablet] 4 mg PO HSP PRN 03/18/18 Allergies/Adverse Reactions: irbesartan [From Avapro] Allergy (Severe, Verified 03/18/18 16:19) swelling of face nitrofurantoin macrocrystalline [From Macrobid] Allergy (Severe, Verified 16:19) Generalized edema Penicillins Allergy (Severe, Verified 03/18/18 16:19) eyes swelled pregabalin [From Lyrica] Allergy (Severe, Verified 03/18/18 16:19) Equilibrium Issues venom-honey bee [bee venom (honey bee)] Allergy (Verified 03/18/18 16:19) Anaphylaxis Review of Systems Constitutional: ABSENT: chills, fever(s), headache(s), weight gain, weight loss Eyes: ABSENT: visual disturbances Ears: ABSENT: hearing changes Cardiovascular: ABSENT: chest pain, dyspnea on exertion, edema, orthropnea, palpitations Respiratory: ABSENT: cough, hemoptysis Gastrointestinal: PRESENT: diarrhea, vomiting Genitourinary: ABSENT: dysuria, hematuria Musculoskeletal: ABSENT: joint swelling Integumentary: ABSENT: rash, wounds Neurological: ABSENT: abnormal gait, abnormal speech, confusion, dizziness, focal weakness, syncope Psychiatric: ABSENT: anxiety, depression, homidical ideation, suicidal ideation Endocrine: ABSENT: cold intolerance, heat intolerance, menstrual abnormalities, polydipsia, polyuria Hematologic/Lymphatic: ABSENT: easy bleeding, easy bruising, lymphadenopathy Physical Exam Vital Signs: Temp Pulse Resp BP Pulse Ox 98.5 F 86 18 147/94 H 99 03/18/18 19:25 03/18/18 21:31 03/18/18 19:25 03/18/18 19:25 03/18/18 19:25 Intake & Output 03/17/18 03/18/18 03/19/18 06:59 06:59 06:59 Weight 82.1 kg General appearance: PRESENT: no acute distress Head exam: PRESENT: atraumatic, normocephalic Eye exam: PRESENT: conjunctiva pink, EOMI, PERRLA Ear exam: PRESENT: normal external ear exam Mouth exam: PRESENT: dry mucosa Neck exam: PRESENT: full ROM Respiratory exam: PRESENT: clear to auscultation martínez Cardiovascular exam: PRESENT: RRR, +S1, +S2 GI/Abdominal exam: PRESENT: normal bowel sounds, soft Rectal exam: PRESENT: deferred Neurological exam: PRESENT: alert, CN II-XII grossly intact. ABSENT: motor sensory deficit Results Laboratory Results: 03/18/18 18:10 03/18/18 18:10 03/18/18 03/18/18 03/18/18 18:10 18:10 18:10 WBC 11.5 H RBC 4.64 Hgb 12.0 Hct 35.5 L MCV 77 L MCH 25.8 L MCHC 33.8 RDW 17.6 H Plt Count 328 Sodium 136.4 L Potassium 3.5 L Chloride 100 Carbon Dioxide 22 Anion Gap 14 BUN 5 L Creatinine 0.83 Est GFR ( Amer) > 60 Est GFR (Non-Af Amer) > 60 Glucose 72 L Calcium 9.1 Total Bilirubin 0.5 AST 17 ALT 15 Alkaline Phosphatase 115 Total Protein 6.6 Albumin 3.8 Urine Color YELLOW Urine Appearance CLEAR Urine pH 7.0 Ur Specific [place] 1.008 Urine Protein NEGATIVE Urine Glucose (UA) NEGATIVE Urine Ketones NEGATIVE Urine Blood NEGATIVE Urine Nitrite NEGATIVE Ur Leukocyte Esterase NEGATIVE Urine WBC (Auto) 3 Urine RBC (Auto) 1 Assessment & Plan - Diagnosis (1) Intractable vomiting Qualifiers: Nausea presence: with nausea Is this a current diagnosis for this admission?: Yes Plan: She is admitted for the management of vomiting and dehydration (2) Dehydration Is this a current diagnosis for this admission?: Yes
[2018-03-18] MEDS: MORPHINE SULFATE 10 MG/ML INJ IV PRN (23:39)
[2018-03-19] MEDS: OXYCODONE-ACETAMINOPHEN 5-325 MG TABLET PO PRN ×3 (04:44→18:17)
[2018-03-19] MEDS: PROMETHAZINE HCL 25 MG TABLET PO PRN ×3 (04:44→18:17)
[2018-03-19] MEDS: OXYCODONE HCL IR 5 MG TABLET PO PRN ×3 (04:45→18:17)
[2018-03-19] MEDS: GABAPENTIN 300 MG CAPSULE PO SCH ×3 (05:12→21:37)
[2018-03-19] MEDS: MORPHINE SULFATE 10 MG/ML INJ IV PRN ×4 (07:53→20:06)
[2018-03-19] MEDS: NORMAL SALINE 1000 ML 1,000 ML IV PRN ×2 (07:53→21:40)
[2018-03-19] MEDS: CLOPIDOGREL BISULFATE 75 MG TABLET PO SCH (09:07)
[2018-03-19] MEDS: HYDROXYCHLOROQUINE SULFATE 200 MG TABLET PO SCH ×2 (09:07→21:37)
[2018-03-19] MEDS: APIXABAN 5 MG TABLET PO SCH ×2 (09:07→21:37)
--- NOTE | 2018-03-19 09:16 | Physician Advisory Note ---
Physician Advisor ProgressNote .: Pursuant to the plan for Yesy Gatica, I have reviewed the medical record for this patient. Physician Advisor Statement: Please consider documenting, if you agree: 1. "Chronic diastolic CHF, mild pulmonary HTN" 2. Medical necessity: see below. Please explicitly document that "IVF rate is more cautious than I otherwise would give in this situation due to chr diast CHF", as long as that is an accurate statement. Status: approp'ly Obs to start. - If she does not improve adequately for d/c to be safe later today as expected , please document ongoing clinical issues/concerns that require hospital level tx/monitoring, & then she may become appropriate for change to Inpatient status. Thanks! CK
[2018-03-19] MEDS ORDERED: PROMETHAZINE HCL 25 MG TABLET PO SCH (10:00)
--- NOTE | 2018-03-19 21:05 | PDOC PROGRESS REPORT ---
Subjective Progress Note for:: 03/19/18 Subjective:: Patient continues to have nausea and vomiting, history of gastroparesis, chronic UTI. Reason For Visit: INTRACTABLE VOMITING,DIARRHEA Physical Exam Vital Signs: Temp Pulse Resp BP Pulse Ox 97.4 F 70 16 102/54 L 100 03/19/18 07:53 03/19/18 07:53 03/19/18 07:53 03/19/18 07:53 03/19/18 07:53 Intake & Output 03/18/18 03/19/18 03/20/18 06:59 06:59 06:59 Intake Total 1080 222 Output Total 900 Balance 180 222 Weight 82.1 kg General appearance: PRESENT: no acute distress Eye exam: PRESENT: PERRLA Respiratory exam: PRESENT: clear to auscultation martínez Cardiovascular exam: PRESENT: +S1, +S2 GI/Abdominal exam: PRESENT: soft Neurological exam: PRESENT: alert Results Laboratory Results: 03/18/18 18:10 03/18/18 18:10 Assessment & Plan - Diagnosis (1) Intractable vomiting Qualifiers: Nausea presence: with nausea Is this a current diagnosis for this admission?: Yes (2) Dehydration Is this a current diagnosis for this admission?: Yes
[2018-03-19] MEDS: ATORVASTATIN CALCIUM 40 MG TABLET PO SCH (21:37)
[2018-03-20] MEDS: OXYCODONE-ACETAMINOPHEN 5-325 MG TABLET PO PRN ×4 (00:28→18:53)
[2018-03-20] MEDS: OXYCODONE HCL IR 5 MG TABLET PO PRN ×4 (00:28→18:53)
[2018-03-20] MEDS: MORPHINE SULFATE 10 MG/ML INJ IV PRN ×4 (02:17→20:58)
[2018-03-20] MEDS: GABAPENTIN 300 MG CAPSULE PO SCH ×3 (05:09→21:01)
[2018-03-20] MEDS: PROMETHAZINE HCL 25 MG TABLET PO PRN ×3 (06:31→18:54)
[2018-03-20] MEDS: CLOPIDOGREL BISULFATE 75 MG TABLET PO SCH (09:05)
[2018-03-20] MEDS: HYDROXYCHLOROQUINE SULFATE 200 MG TABLET PO SCH ×2 (09:05→21:00)
[2018-03-20] MEDS: APIXABAN 5 MG TABLET PO SCH ×2 (09:05→21:00)
[2018-03-20] MEDS: NORMAL SALINE 1000 ML 1,000 ML IV PRN (14:17)
[2018-03-20] MEDS: ATORVASTATIN CALCIUM 40 MG TABLET PO SCH (21:00)
--- NOTE | 2018-03-20 21:03 | PDOC PROGRESS REPORT ---
Subjective Progress Note for:: 03/20/18 Subjective:: Patient continues to require IV fluids, antiemetics, she was admitted for observation, history of recurrent UTI, intractable vomiting, multiple readmission for vomiting related conditions including UTI, C. difficile and other comorbid conditions, may need to arrange outpatient IV fluid therapy for this patient Reason For Visit: INTRACTABLE VOMITING,DIARRHEA Physical Exam Vital Signs: Temp Pulse Resp BP Pulse Ox 98.3 F 80 15 132/61 H 99 03/20/18 19:19 03/20/18 19:19 03/20/18 19:19 03/20/18 19:19 03/20/18 19:19 Intake & Output 03/19/18 03/20/18 03/21/18 06:59 06:59 06:59 Intake Total 1080 1542 884 Output Total 900 1200 1700 Balance 180 342 -816 Weight 82.1 kg 82.2 kg General appearance: PRESENT: no acute distress Eye exam: PRESENT: PERRLA Respiratory exam: PRESENT: clear to auscultation martínez Cardiovascular exam: PRESENT: +S1, +S2 GI/Abdominal exam: PRESENT: soft Neurological exam: PRESENT: alert Results Laboratory Results: 03/18/18 18:10 03/18/18 18:10 Assessment & Plan - Diagnosis (1) Intractable vomiting Qualifiers: Nausea presence: with nausea Is this a current diagnosis for this admission?: Yes (2) Dehydration Is this a current diagnosis for this admission?: Yes
[2018-03-21] MEDS: OXYCODONE-ACETAMINOPHEN 5-325 MG TABLET PO PRN ×3 (00:53→15:20)
[2018-03-21] MEDS: PROMETHAZINE HCL 25 MG TABLET PO PRN ×2 (00:53→07:01)
[2018-03-21] MEDS: OXYCODONE HCL IR 5 MG TABLET PO PRN ×3 (00:53→15:20)
[2018-03-21] MEDS: MORPHINE SULFATE 10 MG/ML INJ IV PRN ×5 (04:10→22:37)
[2018-03-21] MEDS: GABAPENTIN 300 MG CAPSULE PO SCH ×3 (05:11→22:38)
[2018-03-21] MEDS: NORMAL SALINE 1000 ML 1,000 ML IV PRN ×2 (05:11→19:43)
[2018-03-21 05:44] LABS: ABSOLUTE EOSINOPHILS # (AUTO) 0.1 10^3/uL (0.0-0.6); ABSOLUTE LYMPHOCYTES (AUTO) 1.9 10^3/uL (0.5-4.7); ABSOLUTE MONOCYTES (AUTO) 0.5 10^3/uL (0.1-1.4); ABSOLUTE NEUT (AUTO) 4.2 10^3/uL (1.7-8.2); BASOPHILS % (AUTO) 0.4 % (0-2); HEMATOCRIT 31.1 % (36.0-47.0); HEMOGLOBIN 10.5 g/dL (12.0-15.5); LYMPHOCYTES % (AUTO) 28.4 % (13-45); MEAN CORPUSCULAR HEMOGLOBIN 26.5 pg (27.0-33.4); MEAN CORPUSCULAR HGB CONC 33.9 g/dL (32.0-36.0); MEAN CORPUSCULAR VOLUME 78 fl (80-97); MONOCYTES % (AUTO) 7.8 % (3-13); PLATELET COUNT 262 10^3/uL (150-450); RED BLOOD COUNT 3.98 10^6/uL (3.72-5.28); RED CELL DISTRIBUTION WIDTH 17.9 % (11.5-14.0); SEGMENTED NEUTROPHILS % (AUTO) 61.4 % (42-78); TOTAL CELLS COUNTED % (AUTO) 100 %; WHITE BLOOD COUNT 6.8 10^3/uL (4.0-10.5)
[2018-03-21 06:00] LABS: ALANINE AMINOTRANSFERASE 18 U/L (9-52); ALKALINE PHOSPHATASE 100 U/L (38-126); ANION GAP 11 (5-19); ASPARTATE AMINO TRANSFERASE 16 U/L (14-36); BILIRUBIN,DIRECT 0.2 mg/dL (0.0-0.4); BILIRUBIN,TOTAL 0.2 mg/dL (0.2-1.3); BLOOD UREA NITROGEN 5 mg/dL (7-20); CARBON DIOXIDE 23 mmol/L (22-30); CHLORIDE 106 mmol/L (98-107); GLUCOSE 93 mg/dL (75-110); POTASSIUM 3.9 mmol/L (3.6-5.0); SODIUM 140.1 mmol/L (137-145); TOTAL PROTEIN 5.6 g/dL (6.3-8.2)
[2018-03-21] MEDS: APIXABAN 5 MG TABLET PO SCH ×2 (10:43→22:38)
[2018-03-21] MEDS: CLOPIDOGREL BISULFATE 75 MG TABLET PO SCH (10:43)
[2018-03-21] MEDS: HYDROXYCHLOROQUINE SULFATE 200 MG TABLET PO SCH ×2 (10:43→22:38)
[2018-03-21] MEDS: PROMETHAZINE HCL INJ 25 MG/1 ML VIAL IV PRN ×2 (15:20→22:55)
--- NOTE | 2018-03-21 21:12 | PDOC PROGRESS REPORT ---
Subjective Progress Note for:: 03/21/18 Subjective:: Patient continues to require IV fluids, antiemetics, she was admitted for observation, history of recurrent UTI, intractable vomiting, multiple readmission for vomiting related conditions including UTI, C. difficile and other comorbid conditions, may need to arrange outpatient IV fluid therapy for this patient Reason For Visit: INTRACTABLE PAIN SECONDARY TO CANCER, UTI, C. DIFF Physical Exam Vital Signs: Temp Pulse Resp BP Pulse Ox 98.5 F 81 15 130/72 H 100 03/21/18 19:29 03/21/18 19:29 03/21/18 19:29 03/21/18 19:29 03/21/18 19:29 Intake & Output 03/20/18 03/21/18 03/22/18 06:59 06:59 06:59 Intake Total 1542 1204 360 Output Total 1200 1700 Balance 342 -496 360 Weight 82.2 kg General appearance: PRESENT: no acute distress Eye exam: PRESENT: PERRLA Respiratory exam: PRESENT: clear to auscultation martínez Cardiovascular exam: PRESENT: +S1, +S2 Neurological exam: PRESENT: alert Results Laboratory Results: 03/21/18 05:10 03/21/18 05:10 03/21/18 03/21/18 05:10 05:10 WBC 6.8 RBC 3.98 Hgb 10.5 L Hct 31.1 L MCV 78 L MCH 26.5 L MCHC 33.9 RDW 17.9 H Plt Count 262 Seg Neutrophils % 61.4 Lymphocytes % 28.4 Monocytes % 7.8 Eosinophils % 2.0 Basophils % 0.4 Absolute Neutrophils 4.2 Absolute Lymphocytes 1.9 Absolute Monocytes 0.5 Absolute Eosinophils 0.1 Absolute Basophils 0.0 Sodium 140.1 Potassium 3.9 Chloride 106 Carbon Dioxide 23 Anion Gap 11 BUN 5 L Creatinine 0.81 Est GFR ( Amer) > 60 Est GFR (Non-Af Amer) > 60 Glucose 93 Calcium 8.0 L Total Bilirubin 0.2 AST 16 ALT 18 Alkaline Phosphatase 100 Total Protein 5.6 L Albumin 3.0 L Assessment & Plan - Diagnosis (1) Intractable vomiting Qualifiers: Nausea presence: with nausea Is this a current diagnosis for this admission?: Yes (2) Dehydration Is this a current diagnosis for this admission?: Yes
[2018-03-21] MEDS: ATORVASTATIN CALCIUM 40 MG TABLET PO SCH (22:38)
[2018-03-22] MEDS: MORPHINE SULFATE 10 MG/ML INJ IV PRN ×5 (03:42→22:02)
[2018-03-22] MEDS: PROMETHAZINE HCL INJ 25 MG/1 ML VIAL IV PRN ×3 (06:55→20:06)
[2018-03-22] MEDS: GABAPENTIN 300 MG CAPSULE PO SCH ×3 (06:55→22:02)
[2018-03-22] MEDS: CLOPIDOGREL BISULFATE 75 MG TABLET PO SCH (11:21)
[2018-03-22] MEDS: HYDROXYCHLOROQUINE SULFATE 200 MG TABLET PO SCH ×2 (11:22→22:02)
[2018-03-22] MEDS: APIXABAN 5 MG TABLET PO SCH ×2 (11:22→22:02)
[2018-03-22] MEDS: NORMAL SALINE 1000 ML 1,000 ML IV PRN (11:24)
--- NOTE | 2018-03-22 20:59 | PDOC PROGRESS REPORT ---
Subjective Progress Note for:: 03/22/18 Subjective:: Patient continues to require IV fluids, antiemetics, she was admitted for observation, history of recurrent UTI, intractable vomiting, multiple readmission for vomiting related conditions including UTI, C. difficile and other comorbid conditions, may need to arrange outpatient IV fluid therapy for this patient Reason For Visit: INTRACTABLE PAIN SECONDARY TO CANCER, UTI, C. DIFF Physical Exam Vital Signs: Temp Pulse Resp BP Pulse Ox 98.1 F 61 14 149/72 H 93 03/22/18 19:59 03/22/18 19:59 03/22/18 19:59 03/22/18 19:59 03/22/18 19:59 Intake & Output 03/21/18 03/22/18 03/23/18 06:59 06:59 06:59 Intake Total 1204 1840 474 Output Total 1700 1600 1200 Balance -496 240 -726 General appearance: PRESENT: no acute distress Eye exam: PRESENT: PERRLA Respiratory exam: PRESENT: clear to auscultation martínez Cardiovascular exam: PRESENT: +S1, +S2 GI/Abdominal exam: PRESENT: soft Neurological exam: PRESENT: alert Results Laboratory Results: 03/21/18 05:10 03/21/18 05:10 Assessment & Plan - Diagnosis (1) Intractable vomiting Qualifiers: Nausea presence: with nausea Is this a current diagnosis for this admission?: Yes (2) Dehydration Is this a current diagnosis for this admission?: Yes
[2018-03-22] MEDS: ATORVASTATIN CALCIUM 40 MG TABLET PO SCH (22:02)
[2018-03-23] MEDS: NORMAL SALINE 1000 ML 1,000 ML IV PRN (02:48)
[2018-03-23] MEDS: PROMETHAZINE HCL INJ 25 MG/1 ML VIAL IV PRN ×3 (02:48→17:04)
[2018-03-23] MEDS: MORPHINE SULFATE 10 MG/ML INJ IV PRN ×5 (02:48→21:09)
[2018-03-23] MEDS: GABAPENTIN 300 MG CAPSULE PO SCH ×3 (07:03→21:09)
[2018-03-23] MEDS: APIXABAN 5 MG TABLET PO SCH ×2 (09:44→21:10)
[2018-03-23] MEDS: HYDROXYCHLOROQUINE SULFATE 200 MG TABLET PO SCH ×2 (09:44→21:10)
[2018-03-23] MEDS: CLOPIDOGREL BISULFATE 75 MG TABLET PO SCH (09:44)
--- NOTE | 2018-03-23 15:11 | PDOC PROGRESS REPORT ---
Subjective Progress Note for:: 03/23/18 Subjective:: Patient seen by the bedside, she sais she still vomiting but no seems to see the vomitus Reason For Visit: INTRACTABLE PAIN SECONDARY TO CANCER, UTI, C. DIFF Physical Exam Vital Signs: Temp Pulse Resp BP Pulse Ox 97.9 F 78 16 145/64 H 99 03/23/18 12:29 03/23/18 12:29 03/23/18 12:29 03/23/18 12:29 03/23/18 12:29 Intake & Output 03/22/18 03/23/18 03/24/18 06:59 06:59 06:59 Intake Total 1840 858 840 Output Total 1600 2000 Balance 240 -1142 840 General appearance: PRESENT: no acute distress Eye exam: PRESENT: PERRLA Respiratory exam: PRESENT: clear to auscultation martínez Cardiovascular exam: PRESENT: +S1, +S2 Neurological exam: PRESENT: alert Results Laboratory Results: 03/21/18 05:10 03/21/18 05:10 Assessment & Plan - Diagnosis (1) Intractable vomiting Qualifiers: Nausea presence: with nausea Is this a current diagnosis for this admission?: Yes (2) Dehydration Is this a current diagnosis for this admission?: Yes
[2018-03-23] MEDS: ATORVASTATIN CALCIUM 40 MG TABLET PO SCH (21:09)
[2018-03-24] MEDS: PROMETHAZINE HCL INJ 25 MG/1 ML VIAL IV PRN ×4 (00:09→22:26)
[2018-03-24] MEDS: MORPHINE SULFATE 10 MG/ML INJ IV PRN ×5 (01:49→22:26)
[2018-03-24] MEDS: GABAPENTIN 300 MG CAPSULE PO SCH ×3 (06:11→22:26)
[2018-03-24] MEDS: CLOPIDOGREL BISULFATE 75 MG TABLET PO SCH (11:40)
[2018-03-24] MEDS: APIXABAN 5 MG TABLET PO SCH ×2 (11:41→22:26)
[2018-03-24] MEDS: HYDROXYCHLOROQUINE SULFATE 200 MG TABLET PO SCH ×2 (11:41→22:26)
--- NOTE | 2018-03-24 15:57 | PDOC PROGRESS REPORT ---
Subjective Progress Note for:: 03/24/18 Subjective:: Patient seen by the bedside Reason For Visit: INTRACTABLE PAIN SECONDARY TO CANCER, UTI, C. DIFF Physical Exam Vital Signs: Temp Pulse Resp BP Pulse Ox 97.9 F 109 H 24 H 138/68 H 100 03/24/18 12:00 03/24/18 08:25 03/24/18 12:00 03/24/18 12:00 03/24/18 12:00 Intake & Output 03/23/18 03/24/18 03/25/18 06:59 06:59 06:59 Intake Total 858 1850 Output Total 2000 1500 Balance -1142 350 Weight 83.1 kg General appearance: PRESENT: no acute distress Eye exam: PRESENT: PERRLA Respiratory exam: PRESENT: clear to auscultation martínez Cardiovascular exam: PRESENT: +S1 GI/Abdominal exam: PRESENT: soft Results Laboratory Results: 03/21/18 05:10 03/21/18 05:10 Assessment & Plan - Diagnosis (1) Intractable vomiting Qualifiers: Nausea presence: with nausea Is this a current diagnosis for this admission?: Yes (2) Dehydration Is this a current diagnosis for this admission?: Yes
[2018-03-24] MEDS ORDERED: HYDRALAZINE HCL INJ/PF 20 MG/1 ML SDV IV PRN (18:00)
[2018-03-24] MEDS: ATORVASTATIN CALCIUM 40 MG TABLET PO SCH (22:26)
[2018-03-24] MEDS: NORMAL SALINE 1000 ML 1,000 ML IV PRN (22:27)
[2018-03-25] MEDS: MORPHINE SULFATE 10 MG/ML INJ IV PRN ×4 (03:34→22:49)
[2018-03-25] MEDS: PROMETHAZINE HCL INJ 25 MG/1 ML VIAL IV PRN ×3 (04:21→18:31)
[2018-03-25 05:07] LABS: ABSOLUTE EOSINOPHILS # (AUTO) 0.1 10^3/uL (0.0-0.6); ABSOLUTE LYMPHOCYTES (AUTO) 2.1 10^3/uL (0.5-4.7); ABSOLUTE MONOCYTES (AUTO) 0.5 10^3/uL (0.1-1.4); BASOPHILS % (AUTO) 0.4 % (0-2); EOSINOPHILS % (AUTO) 1.8 % (0-6); HEMATOCRIT 30.4 % (36.0-47.0); HEMOGLOBIN 10.3 g/dL (12.0-15.5); LYMPHOCYTES % (AUTO) 31.3 % (13-45); MEAN CORPUSCULAR HEMOGLOBIN 26.5 pg (27.0-33.4); MEAN CORPUSCULAR VOLUME 78 fl (80-97); MONOCYTES % (AUTO) 7.7 % (3-13); PLATELET COUNT 311 10^3/uL (150-450); RED BLOOD COUNT 3.89 10^6/uL (3.72-5.28); RED CELL DISTRIBUTION WIDTH 18.1 % (11.5-14.0); SEGMENTED NEUTROPHILS % (AUTO) 58.8 % (42-78); TOTAL CELLS COUNTED % (AUTO) 100 %; WHITE BLOOD COUNT 6.7 10^3/uL (4.0-10.5)
[2018-03-25 05:25] LABS: ALANINE AMINOTRANSFERASE 16 U/L (9-52); ALKALINE PHOSPHATASE 108 U/L (38-126); ANION GAP 12 (5-19); ASPARTATE AMINO TRANSFERASE 13 U/L (14-36); BILIRUBIN,DIRECT 0.2 mg/dL (0.0-0.4); BILIRUBIN,TOTAL 0.2 mg/dL (0.2-1.3); BLOOD UREA NITROGEN 3 mg/dL (7-20); CALCIUM 8.1 mg/dL (8.4-10.2); CARBON DIOXIDE 24 mmol/L (22-30); CHLORIDE 107 mmol/L (98-107); GLUCOSE 95 mg/dL (75-110); POTASSIUM 3.8 mmol/L (3.6-5.0); TOTAL PROTEIN 5.4 g/dL (6.3-8.2)
[2018-03-25] MEDS: GABAPENTIN 300 MG CAPSULE PO SCH ×3 (06:41→22:49)
[2018-03-25] MEDS: HYDROXYCHLOROQUINE SULFATE 200 MG TABLET PO SCH ×2 (10:58→22:49)
[2018-03-25] MEDS: APIXABAN 5 MG TABLET PO SCH ×2 (10:58→22:49)
[2018-03-25] MEDS: CLOPIDOGREL BISULFATE 75 MG TABLET PO SCH (10:58)
--- NOTE | 2018-03-25 21:02 | PDOC PROGRESS REPORT ---
Subjective Progress Note for:: 03/25/18 Subjective:: She still continues to vomit, consultation will be requested from GI Reason For Visit: INTRACTABLE PAIN SECONDARY TO CANCER, UTI, C. DIFF Physical Exam Vital Signs: Temp Pulse Resp BP Pulse Ox 98.3 F 84 18 147/68 H 100 03/25/18 19:55 03/25/18 19:55 03/25/18 19:55 03/25/18 19:55 03/25/18 19:55 Intake & Output 03/24/18 03/25/18 03/26/18 06:59 06:59 06:59 Intake Total 1850 1610 358 Output Total 1500 3800 1950 Balance 350 -2555 -1126 Weight 83.1 kg 84.7 kg General appearance: PRESENT: no acute distress Eye exam: PRESENT: PERRLA Respiratory exam: PRESENT: clear to auscultation martínez Cardiovascular exam: PRESENT: +S1, +S2 GI/Abdominal exam: PRESENT: soft Results Laboratory Results: 03/25/18 04:30 03/25/18 04:30 03/25/18 03/25/18 04:30 04:30 WBC 6.7 RBC 3.89 Hgb 10.3 L Hct 30.4 L MCV 78 L MCH 26.5 L MCHC 34.0 RDW 18.1 H Plt Count 311 Seg Neutrophils % 58.8 Lymphocytes % 31.3 Monocytes % 7.7 Eosinophils % 1.8 Basophils % 0.4 Absolute Neutrophils 4.0 Absolute Lymphocytes 2.1 Absolute Monocytes 0.5 Absolute Eosinophils 0.1 Absolute Basophils 0.0 Sodium 143.0 Potassium 3.8 Chloride 107 Carbon Dioxide 24 Anion Gap 12 BUN 3 L Creatinine 0.61 Est GFR ( Amer) > 60 Est GFR (Non-Af Amer) > 60 Glucose 95 Calcium 8.1 L Total Bilirubin 0.2 AST 13 L ALT 16 Alkaline Phosphatase 108 Total Protein 5.4 L Albumin 3.0 L Assessment & Plan - Diagnosis (1) Intractable vomiting Qualifiers: Nausea presence: with nausea Is this a current diagnosis for this admission?: Yes (2) Dehydration Is this a current diagnosis for this admission?: Yes
[2018-03-25] MEDS: ATORVASTATIN CALCIUM 40 MG TABLET PO SCH (22:49)
[2018-03-26] MEDS: PROMETHAZINE HCL INJ 25 MG/1 ML VIAL IV PRN ×3 (02:08→14:57)
[2018-03-26] MEDS: MORPHINE SULFATE 10 MG/ML INJ IV PRN ×4 (02:45→14:57)
[2018-03-26] MEDS: GABAPENTIN 300 MG CAPSULE PO SCH ×3 (06:50→21:29)
[2018-03-26] MEDS: APIXABAN 5 MG TABLET PO SCH ×2 (10:22→21:28)
[2018-03-26] MEDS: CLOPIDOGREL BISULFATE 75 MG TABLET PO SCH (10:22)
[2018-03-26] MEDS: HYDROXYCHLOROQUINE SULFATE 200 MG TABLET PO SCH ×2 (10:22→21:29)
--- NOTE | 2018-03-26 20:42 | PDOC PROGRESS REPORT ---
Subjective Progress Note for:: 03/26/18 Subjective:: She still continues to vomit, consultation will be requested from GI Reason For Visit: INTRACTABLE PAIN SECONDARY TO CANCER, UTI, C. DIFF Physical Exam Vital Signs: Temp Pulse Resp BP Pulse Ox 98.4 F 88 16 129/43 H 100 03/26/18 16:41 03/26/18 16:41 03/26/18 16:41 03/26/18 16:41 03/26/18 16:41 Intake & Output 03/25/18 03/26/18 03/27/18 06:59 06:59 06:59 Intake Total 1610 718 880 Output Total 3800 2750 1600 Balance -2189 -2031 -720 Weight 84.7 kg 81.9 kg General appearance: PRESENT: no acute distress Eye exam: PRESENT: PERRLA Respiratory exam: PRESENT: clear to auscultation martínez Cardiovascular exam: PRESENT: +S1, +S2 GI/Abdominal exam: PRESENT: soft Neurological exam: PRESENT: alert Results Laboratory Results: 03/25/18 04:30 03/25/18 04:30 Assessment & Plan - Diagnosis (1) Intractable vomiting Qualifiers: Nausea presence: with nausea Is this a current diagnosis for this admission?: Yes (2) Dehydration Is this a current diagnosis for this admission?: Yes (3) Coronary artery disease Qualifiers: Coronary Disease-Associated Artery/Lesion type: [place] artery [place] vs. transplanted heart: [place] heart Associated angina: angina presence unspecified Qualified Code(s): I25.10 - Atherosclerotic heart disease of [place] coronary artery without angina pectoris Is this a current diagnosis for this admission?: Yes (4) Systemic lupus erythematosus Qualifiers: Systemic lupus erythematosus type: unspecified Systemic lupus erythematosus organ involvement: unspecified Qualified Code(s): M32.9 - Systemic lupus erythematosus, unspecified Is this a current diagnosis for this admission?: Yes
[2018-03-26] MEDS: OXYCODONE HCL IR 5 MG TABLET PO PRN (21:28)
[2018-03-26] MEDS: ATORVASTATIN CALCIUM 40 MG TABLET PO SCH (21:29)
[2018-03-26] MEDS: PROMETHAZINE HCL 25 MG TABLET PO PRN (21:29)
[2018-03-27] MEDS: NORMAL SALINE 1000 ML 1,000 ML IV PRN (06:14)
[2018-03-27] MEDS: GABAPENTIN 300 MG CAPSULE PO SCH ×3 (06:16→20:46)
[2018-03-27] MEDS: PROMETHAZINE HCL 25 MG TABLET PO PRN ×3 (06:16→20:47)
[2018-03-27] MEDS: OXYCODONE HCL IR 5 MG TABLET PO PRN ×3 (06:17→20:47)
[2018-03-27] MEDS: HYDROXYCHLOROQUINE SULFATE 200 MG TABLET PO SCH ×2 (11:40→20:47)
[2018-03-27] MEDS: APIXABAN 5 MG TABLET PO SCH ×2 (11:40→20:46)
[2018-03-27] MEDS: CLOPIDOGREL BISULFATE 75 MG TABLET PO SCH (11:41)
[2018-03-27] MEDS: OXYCODONE-ACETAMINOPHEN 5-325 MG TABLET PO PRN (12:45)
--- NOTE | 2018-03-27 17:12 | PDOC PROGRESS REPORT ---
Subjective Progress Note for:: 03/27/18 Subjective:: Patient continues to vomit she is scheduled for EGD Reason For Visit: INTRACTABLE PAIN SECONDARY TO CANCER, UTI, C. DIFF Physical Exam Vital Signs: Temp Pulse Resp BP Pulse Ox 98.2 F 81 17 126/71 H 96 03/27/18 15:09 03/27/18 15:09 03/27/18 15:09 03/27/18 15:09 03/27/18 15:09 Intake & Output 03/26/18 03/27/18 03/28/18 06:59 06:59 06:59 Intake Total 718 880 Output Total 2750 3600 Balance -2031 Weight 81.9 kg 82.1 kg General appearance: PRESENT: no acute distress Eye exam: PRESENT: PERRLA Respiratory exam: PRESENT: clear to auscultation martínez Cardiovascular exam: PRESENT: +S1, +S2 GI/Abdominal exam: PRESENT: soft Results Laboratory Results: 03/25/18 04:30 03/25/18 04:30 Assessment & Plan - Diagnosis (1) Intractable vomiting Qualifiers: Nausea presence: with nausea Is this a current diagnosis for this admission?: Yes (2) Dehydration Is this a current diagnosis for this admission?: Yes (3) Coronary artery disease Qualifiers: Coronary Disease-Associated Artery/Lesion type: [place] artery [place] vs. transplanted heart: [place] heart Associated angina: angina presence unspecified Qualified Code(s): I25.10 - Atherosclerotic heart disease of [place] coronary artery without angina pectoris Is this a current diagnosis for this admission?: Yes (4) Systemic lupus erythematosus Qualifiers: Systemic lupus erythematosus type: unspecified Systemic lupus erythematosus organ involvement: unspecified Qualified Code(s): M32.9 - Systemic lupus erythematosus, unspecified Is this a current diagnosis for this admission?: Yes
[2018-03-27] MEDS: ATORVASTATIN CALCIUM 40 MG TABLET PO SCH (20:45)
[2018-03-28] MEDS: GABAPENTIN 300 MG CAPSULE PO SCH ×3 (05:44→20:26)
[2018-03-28] MEDS: PROMETHAZINE HCL 25 MG TABLET PO PRN ×3 (05:45→20:25)
[2018-03-28] MEDS: OXYCODONE HCL IR 5 MG TABLET PO PRN ×3 (05:45→20:25)
[2018-03-28] MEDS: APIXABAN 5 MG TABLET PO SCH ×2 (11:05→20:26)
[2018-03-28] MEDS: HYDROXYCHLOROQUINE SULFATE 200 MG TABLET PO SCH ×2 (11:06→20:27)
[2018-03-28] MEDS: CLOPIDOGREL BISULFATE 75 MG TABLET PO SCH (11:06)
[2018-03-28] MEDS: OXYCODONE-ACETAMINOPHEN 5-325 MG TABLET PO PRN ×2 (12:01→20:25)
[2018-03-28] MEDS ORDERED: DIPHENHYDRAMINE HCL 50 MG/ML VIAL ONE (17:59)
[2018-03-28] MEDS ORDERED: ONDANSETRON HCL INJ/PF 4 MG/2 ML SDV ONE (17:59)
[2018-03-28] MEDS ORDERED: GLUCAGON,HUMAN RECOMB 1 MG INJ ONE (18:00)
[2018-03-28] MEDS ORDERED: FLUMAZENIL INJ 0.5 MG/5 ML VIAL ONE (18:00)
[2018-03-28] MEDS ORDERED: EPINEPHRINE INJ 1 MG/10 ML DISP.SYRIN ONE (18:00)
[2018-03-28] MEDS ORDERED: NALOXONE HCL INJ/PF 0.4 MG/1 ML SDV ONE (18:00)
[2018-03-28] MEDS ORDERED: FENTANYL CITRATE INJ/PF 100 MCG/2 ML AMPUL ONE (18:00)
[2018-03-28] MEDS: MIDAZOLAM 2 MG/2 ML INJ ONE ×2 (19:25→19:30)
--- NOTE | 2018-03-28 19:30 | PDOC CONSULTATION ---
Consultation Consult Date: 03/27/18 History of Present Illness Admission Date/PCP: 03/21/18 10:53 IAN MUÑOZ MD History of Present Illness: VALENTE MUNOZ is a 62 year old femalePatient who was admitted on 03/18/2018 with intractable abdominal pain, diarrhea and vomiting. Her stool was positive for C. difficile toxin on a recent admission in January. According to the patient she has episodes of abdominal pain and vomiting about once or twice a year and this has been going on for the last 3 years. Currently she continues to have abdominal pain. There was a suspicion for gastroparesis in the past. She had a gastric emptying study in September 2011 which showed a 27% emptying at 90 minutes. The study was not performed up till the recommended 4 hours. On admission her hemoglobin was 12 with a low MCV and MCH. Her LFTs were normal with a potassium of 3.5 Past Medical History Cardiac Medical History: Reports: Congestive Heart Failure, Coronary Artery Disease, DVT, Myocardial Infarction, Hyperlipidema, Hypertension, Pulmonary Embolism Denies: Atrial Fibrillation, Peripheral Vascular Disease, Heart Murmur Pulmonary Medical History: Reports: Bronchitis, Chronic Obstructive Pulmonary Disease (COPD) Denies: Asthma, Pneumonia, Respiratory Failure, Sleep Apnea, Tuberculosis Neurological Medical History: Denies: Seizures Endocrine Medical History: Reports: Hypothyroidism Denies: Hyperthyroidism Renal/ Medical History: Denies: End Stage Renal Disease Malignancy Medical History: Reports: Cervical Cancer, Ovarian Cancer Denies: Breast Cancer, Leukemia, Lung Cancer GI Medical History: Reports: Gastroesophageal Reflux Disease, Hiatal Hernia - Repaired Denies: Cirrhosis, Crohn's Disease, Hepatitis Musculoskeltal Medical History: Reports: Arthritis - Lupus, Fibromyalgia - Lupus Psychiatric Medical History: Reports: Depression Denies: Bipolar Disorder, Dementia, Post Traumatic Stress Disorder Hematology: Reports: Anemia - HX OF LOW NA AND K,LOW IRON WILL HAVE IRON TRANS FUSION 05/04. Denies: Hemophilia, Sickle Cell Disease, Bleeding Tendencies Infectious Medical History: Reports: Clostridium Difficile - Was negative in October2015. Not yet successfully collected stool, Methicillin-Resistant Staph Aureus, Vancomycin-Resistant Enterococci Denies: HIV Past Surgical History Past Surgical History: Reports: Appendectomy, Cardiac Catheterization, Section, Cholecystectomy, Coronary Stent - 3 stents, Herniorrhaphy, Hysterectomy , Orthopedic Surgery - Right knee, bilateral knee replacements and hip replacement metal plate in, Tonsillectomy Denies: Amputation, Colostomy, Coronary Artery Bypass Graft, Gastric Bypass Surgery, Mastectomy, Pacemaker, Tubal Ligation Social History Smoking Status: Former Smoker Frequency of Alcohol Use: Rare Hx Recreational Drug Use: No Drugs: None Hx Prescription Drug Abuse: No - Advance Directive Resuscitation Status: Full Code Family History Family History: Arthritis, COPD, Hyperlipidemia, Hypertension, Malignancy, Thyroid Disfunction Parental Family History Reviewed: No Children Family History Reviewed: NA Sibling(s) Family History Reviewed.: NA Medication/Allergy Home Medications: Atorvastatin Calcium [Lipitor 40 mg Tablet] 40 mg PO QHS 03/18/18 Bethanechol Chloride [Urecholine 10 mg Tablet] 10 mg PO Q8 03/18/18 Clopidogrel Bisulfate [Plavix 75 mg Tablet] 75 mg PO DAILY 03/18/18 Furosemide [Lasix 40 mg Tablet] 40 mg PO DAILY 03/18/18 Gabapentin [Neurontin] 600 mg PO Q8 03/18/18 Hydrocodone Bitartrate [Zohydro ER] 40 mg PO Q12 03/18/18 Oxycodone HCl/Acetaminophen [Endocet 10-325 mg Tablet] 1 tab PO Q6HP PRN Promethazine HCl [Phenergan 25 mg Tablet] 25 mg PO Q6HP PRN 03/18/18 Tizanidine HCl [Zanaflex 4 mg Tablet] 4 mg PO HSP PRN 18 Allergies/Adverse Reactions: irbesartan [From Avapro] Allergy (Severe, Verified 03/18/18 16:19) swelling of face nitrofurantoin macrocrystalline [From Macrobid] Allergy (Severe, Verified 16:19) Generalized edema Penicillins Allergy (Severe, Verified 03/18/18 16:19) eyes swelled pregabalin [From Lyrica] Allergy (Severe, Verified 03/18/18 16:19) Equilibrium Issues venom-honey bee [bee venom (honey bee)] Allergy (Verified 03/18/18 16:19) Anaphylaxis Review of Systems All systems: reviewed and no additional remarkable complaints except as stated Physical Exam Vital Signs: Temp Pulse Resp BP Pulse Ox 98.5 F 95 25 H 147/86 H 91 L 03/28/18 16:03 03/28/18 19:25 03/28/18 19:25 03/28/18 19:25 03/28/18 19:25 Intake & Output 03/27/18 03/28/18 03/29/18 06:59 06:59 06:59 Intake Total 880 555 Output Total 3600 3400 244 Balance -8752 -7671 -384 Weight 82.1 kg 82.2 kg Exam: General: Patient is alert and looks well. She is obese HEENT: There is no pallor or jaundice. PERRLA. Oropharynx normal Respiratory: No chest deformity. No respiratory distress. Chest wall palpitation was unremarkable. Breath sounds were normal Cardiovascular: Heart sounds 1 and 2 normal with no murmurs. Abdominal: Not distended. There is mild epigastric tenderness. Liver and spleen not palpable. No ascites demonstrated. Bowel sounds active. Rectal examination was deferred. Extremities: No edema Neurological: Alert and oriented x4. Grossly nonfocal. Normal speech Skin: No significant rash Psychological: Normal affect Results Laboratory Results: 03/25/18 04:30 03/25/18 04:30 Assessment & Plan - Diagnosis (1) Abdominal pain Qualifiers: Abdominal location: generalized Qualified Code(s): R10.84 - Generalized abdominal pain Is this a current diagnosis for this admission?: Yes Plan: The etiology for recurrent abdominal pain and vomiting is unclear. This could be functional in nature or related to her other medical conditions. She will undergo an EGD for further evaluation. (2) Vomiting Is this a current diagnosis for this admission?: Yes
--- NOTE | 2018-03-28 19:39 | Operative Report ---
Operative Report DATE OF SURGERY: 03/28/18 Operative Report: Pre-op diagnosis: Abdominal pain and vomiting Post-op diagnosis: Grade C esophagitis Surgery: Esophagogastroduodenoscopy with biopsy Medications: Versed 3 mg Fentanyl 100 mcg IV push Tissue removed: Antral and gastric body biopsy for pathology Procedure: After informed consent obtained from patient, the throat was sprayed with Hurricane and conscious sedation was achieved. The upper endoscope was inserted into the esophagus under direct vision and advanced into the stomach. The duodenum was entered and examined to the second part. Endoscope was then slowly pulled out of the patient as the mucosa was examined into details. Patient tolerated procedure well. Findings Esophagus: Single erosion involving 2 folds but less than 75% of the circumference Z-line at: 36 cm Antrum: Normal Body: Normal Fundus: Normal Duodenum first part: Normal Duodenum second part: Normal Plan: Await pathology. She should be on a PPI once a day preferably pantoprazole due to her use of Plavix OPERATION: .
[2018-03-28] MEDS ORDERED: LANSOPRAZOLE 30 MG TAB.RAP.DR PO ONE (19:45)
[2018-03-28] MEDS: ATORVASTATIN CALCIUM 40 MG TABLET PO SCH (20:25)
--- NOTE | 2018-03-28 22:02 | PDOC PROGRESS REPORT ---
Subjective Progress Note for:: 03/28/18 Subjective:: She had upper endoscopy done today Reason For Visit: INTRACTABLE PAIN SECONDARY TO CANCER, UTI, C. DIFF Physical Exam Vital Signs: Temp Pulse Resp BP Pulse Ox 98.5 F 90 16 120/58 L 100 03/28/18 20:17 03/28/18 20:17 03/28/18 20:17 03/28/18 20:17 03/28/18 20:17 Intake & Output 03/27/18 03/28/18 03/29/18 06:59 06:59 06:59 Intake Total 880 555 300 Output Total 3600 3400 600 Balance -2720 -2845 -300 Weight 82.1 kg 82.2 kg General appearance: PRESENT: no acute distress Eye exam: PRESENT: PERRLA Respiratory exam: PRESENT: clear to auscultation martínez Cardiovascular exam: PRESENT: +S1, +S2 Neurological exam: PRESENT: alert Results Laboratory Results: 03/25/18 04:30 03/25/18 04:30 Assessment & Plan - Diagnosis (1) Intractable vomiting Qualifiers: Nausea presence: with nausea Is this a current diagnosis for this admission?: Yes (2) Dehydration Is this a current diagnosis for this admission?: Yes (3) Coronary artery disease Qualifiers: Coronary Disease-Associated Artery/Lesion type: [place] artery [place] vs. transplanted heart: [place] heart Associated angina: angina presence unspecified Qualified Code(s): I25.10 - Atherosclerotic heart disease of [place] coronary artery without angina pectoris Is this a current diagnosis for this admission?: Yes (4) Systemic lupus erythematosus Qualifiers: Systemic lupus erythematosus type: unspecified Systemic lupus erythematosus organ involvement: unspecified Qualified Code(s): M32.9 - Systemic lupus erythematosus, unspecified Is this a current diagnosis for this admission?: Yes
[2018-03-29] MEDS: OXYCODONE HCL IR 5 MG TABLET PO PRN ×3 (02:09→15:26)
[2018-03-29] MEDS: OXYCODONE-ACETAMINOPHEN 5-325 MG TABLET PO PRN ×3 (02:09→15:26)
[2018-03-29] MEDS: PROMETHAZINE HCL 25 MG TABLET PO PRN ×3 (02:09→15:25)
[2018-03-29] MEDS: GABAPENTIN 300 MG CAPSULE PO SCH ×2 (06:22→15:25)
[2018-03-29] MEDS ORDERED: LANSOPRAZOLE 30 MG TAB.RAP.DR PO SCH (08:00)
[2018-03-29] MEDS: APIXABAN 5 MG TABLET PO SCH (09:53)
[2018-03-29] MEDS: HYDROXYCHLOROQUINE SULFATE 200 MG TABLET PO SCH (09:53)
[2018-03-29 18:22] VITALS: BP 141/58
--- NOTE | 2018-03-29 19:13 | PDOC DISCHARGE SUMMARY ---
General - Admit/Disc Date/PCP Admission Date/Primary Care Provider: 03/21/18 10:53 IAN MUÑOZ MD Discharge Date: 03/29/18 - Discharge Diagnosis (1) Intractable vomiting Is this a current diagnosis for this admission?: Yes (2) Dehydration Is this a current diagnosis for this admission?: Yes (3) Coronary artery disease Is this a current diagnosis for this admission?: Yes (4) Systemic lupus erythematosus Is this a current diagnosis for this admission?: Yes (5) Esophagitis Is this a current diagnosis for this admission?: Yes - Additional Information Resuscitation Status: Full Code Discharge Diet: As Tolerated Discharge Activity: Activity As Tolerated Home Medications: Atorvastatin Calcium [Lipitor 40 mg Tablet] 40 mg PO QHS 03/18/18 Bethanechol Chloride [Urecholine 10 mg Tablet] 10 mg PO Q8 03/18/18 Clopidogrel Bisulfate [Plavix 75 mg Tablet] 75 mg PO DAILY 03/18/18 Furosemide [Lasix 40 mg Tablet] 40 mg PO DAILY 03/18/18 Gabapentin [Neurontin] 600 mg PO Q8 03/18/18 Hydrocodone Bitartrate [Zohydro ER] 40 mg PO Q12 03/18/18 Oxycodone HCl/Acetaminophen [Endocet 10-325 mg Tablet] 1 tab PO Q6HP PRN Promethazine HCl [Phenergan 25 mg Tablet] 25 mg PO Q6HP PRN 03/18/18 Tizanidine HCl [Zanaflex 4 mg Tablet] 4 mg PO HSP PRN 03/18/18 History of Present Illness History of Present Illness: VALENTE MUNOZ is a 62 year old female,She has persistent intractable diarrhea and vomiting, she was recently admitted in this hospital for evaluation of diarrhea, was positive for Clostridium difficile toxin, she was treated with improvement she was discharged home last week, she came to the office today with her daughter because she stated that she is not able to keep any food down. 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 She has underwent multiple endoscopies for evaluation of vomiting and diarrhea it was felt that she has gastroparesis, she was admitted because of concern for dehydration due to persistent vomiting she is brought here for observation. Hospital Course Hospital Course: Patient was admitted for the management of intractable vomiting with associated abdominal pain, she was treated with IV fluids, antiemetics and pain medication she was seen in consultation by GI with elevated she underwent upper endoscopy, this demonstrated esophagitis patient vomiting was intractable the exact etiology was not clear she was kept n.p.o. subsequently she had clear liquid diet and ultimately solid food for the last two yaya Physical Exam Vital Signs: Temp Pulse Resp BP Pulse Ox 98.4 F 92 17 141/58 H 99 03/29/18 18:19 03/29/18 18:19 03/29/18 18:19 03/29/18 18:19 03/29/18 18:19 Intake & Output 03/28/18 03/29/18 03/30/18 06:59 06:59 06:59 Intake Total 555 475 551 Output Total 3400 5750 900 Balance -2845 -5275 -349 Weight 82.2 kg 84 kg General appearance: PRESENT: no acute distress, well-developed, well-nourished Head exam: PRESENT: atraumatic, normocephalic Eye exam: PRESENT: conjunctiva pink, EOMI, PERRLA Ear exam: PRESENT: normal external ear exam Mouth exam: PRESENT: moist, tongue midline Neck exam: PRESENT: full ROM Respiratory exam: PRESENT: clear to auscultation martínez Cardiovascular exam: PRESENT: RRR, +S1, +S2 Vascular exam: PRESENT: normal capillary refill GI/Abdominal exam: PRESENT: normal bowel sounds, soft Rectal exam: PRESENT: deferred Neurological exam: PRESENT: alert, awake, oriented to person, oriented to place , oriented to time, oriented to situation, CN II-XII grossly intact Psychiatric exam: PRESENT: appropriate affect, normal mood Skin exam: PRESENT: dry, intact, warm Results Laboratory Results: 03/25/18 04:30 03/25/18 04:30 Qualifiers - * PATIENT BEING DISCHARGED WITH ANY OF THE FOLLOWING DIAGNOSIS: No
== END 2018-03-29 18:36 | disposition home or self-care (01) | DRG 381 ==
LOC: 2N 14:51 → 4N 03-20 05:56 → OBSVTOIN 03-21 10:53
PROVIDERS: ADMIT Internal Medicine; ATTEND Internal Medicine
PROC: 0DB78ZX Excision of Stomach, Pylorus, Via Natural or Artificial Opening Endoscopic, Diagnostic (ICD-10-PCS; principal; 2018-03-28 18:00)
DX: K22.10 Ulcer of esophagus without bleeding (principal); N39.0 Urinary tract infection, site not specified; C56.9 Malignant neoplasm of unspecified ovary; E86.0 Dehydration; I50.9 Heart failure, unspecified; I11.0 Hypertensive heart disease with heart failure; D64.9 Anemia, unspecified; E03.9 Hypothyroidism, unspecified; I25.10 Atherosclerotic heart disease of native coronary artery without angina pectoris; E78.5 Hyperlipidemia, unspecified; J44.9 Chronic obstructive pulmonary disease, unspecified; K21.9 Gastro-esophageal reflux disease without esophagitis; R33.9 Retention of urine, unspecified; C53.9 Malignant neoplasm of cervix uteri, unspecified; L93.0 Discoid lupus erythematosus; M79.7 Fibromyalgia; I25.2 Old myocardial infarction; Z86.718 Personal history of other venous thrombosis and embolism; Z86.711 Personal history of pulmonary embolism; Z79.01 Long term (current) use of anticoagulants; Z79.899 Other long term (current) drug therapy
CPT/HCPCS: 36415; 43239; 80048; 80053; 80076; 81001; 85025; 85027; 88305; G0378; G0379; J0171; J1200; J1610; J2250; J2270; J2310; J2405; J2550; J3010; J3490; J7030

== ENCOUNTER 2018-04-02 13:43 | Inpatient (IN) | payer MEDICARE, OTHER ==
--- NOTE | 2018-04-02 15:29 | RADIOLOGY REPORT (SQ) ---
EXAM DESCRIPTION: CHEST 2 VIEWS COMPLETED DATE/TIME: 04/02/2018 3:19 pm REASON FOR STUDY: Admit, SEVERE NAUSEA, VOMITING COMPARISON: 03/16/2018 EXAM PARAMETERS: NUMBER OF VIEWS: two views TECHNIQUE: Digital Frontal and Lateral radiographic views of the chest acquired. RADIATION DOSE: NA LIMITATIONS: none FINDINGS: LUNGS AND PLEURA: No opacities, masses or pneumothorax. No pleural effusion. MEDIASTINUM AND HILAR STRUCTURES: No masses or contour abnormalities. HEART AND VASCULAR STRUCTURES: Heart normal size. No evidence for failure. BONES: No acute findings. HARDWARE: None in the chest. OTHER: Unchanged position of support apparatus. IMPRESSION: NO ACUTE RADIOGRAPHIC FINDING IN THE CHEST. TECHNICAL DOCUMENTATION: JOB ID: [id number] [employer]- All Rights Reserved Reading location - IP/workstation name: [email or web address]
[2018-04-02] MEDS ORDERED: RINGERS SOLUTION,LACTATED 1,000 ML IV ONE (15:43)
[2018-04-02] MEDS ORDERED: ONDANSETRON HCL INJ/PF 4 MG/2 ML SDV IV ONE (15:43)
[2018-04-02] MEDS ORDERED: METOCLOPRAMIDE HCL INJ/PF 10 MG/2 ML SDV IV ONE (15:44)
[2018-04-02] MEDS ORDERED: DIPHENHYDRAMINE HCL 50 MG/ML VIAL IV ONE (15:45)
--- NOTE | 2018-04-02 15:46 | ER Document Report ---
ED Medical Screen (RME) - General Chief Complaint: Vomiting/Diarrhea Stated Complaint: DIRECT ADMIT/PERSISTENT DIARRHEA,VOMITING Time Seen by Provider: 04/02/18 15:39 Notes: Patient is here to be readmitted to the hospital for diarrhea, almost always due to C differential. Patient has had this illness for many years. Recently, she is having an outbreak of it every other month. She was just in the hospital here for a couple of weeks and discharged on Sunday but comes back because she is having continuous persistent diarrhea and is unable to eat or keep any oral intake going. Diffuse abdominal pains. Denies fever. TRAVEL OUTSIDE OF THE [place] IN LAST 30 DAYS: No - Related Data Allergies/Adverse Reactions: irbesartan [From Avapro] Allergy (Severe, Verified 04/02/18 13:44) swelling of face nitrofurantoin macrocrystalline [From Macrobid] Allergy (Severe, Verified 13:44) Generalized edema Penicillins Allergy (Severe, Verified 04/02/18 13:44) eyes swelled pregabalin [From Lyrica] Allergy (Severe, Verified 04/02/18 13:44) Equilibrium Issues venom-honey bee [bee venom (honey bee)] Allergy (Verified 04/02/18 13:44) Anaphylaxis Past Medical History - Past Medical History Cardiac Medical History: Reports: Hx Congestive Heart Failure, Hx Coronary Artery Disease, Hx DVT, Hx Heart Attack, Hx Hypercholesterolemia, Hx Hypertension, Hx Pulmonary Embolism Denies: Hx Atrial Fibrillation, Hx Peripheral Vascular Disease, Hx Heart Murmur Pulmonary Medical History: Reports: Hx Bronchitis, Hx COPD Denies: Hx Asthma, Hx Pneumonia, Hx Respiratory Failure, Hx Sleep Apnea, Hx Tuberculosis Neurological Medical History: Denies: Hx Cerebrovascular Accident, Hx Seizures Endocrine Medical History: Reports: Hx Hypothyroidism. Denies: Hx Hyperthyroidism Renal/ Medical History: Reports: Hx Ovarian Cysts. Denies: Hx End Stage Renal Disease, Hx Kidney Stones, Hx Peritoneal Dialysis Malignancy Medical History: Reports: Hx Cervical Cancer, Hx Ovarian Cancer. Denies: Hx Breast Cancer, Hx Leukemia, Hx Lung Cancer GI Medical History: Reports: Hx Gastroesophageal Reflux Disease, Hx Hiatal Hernia - Repaired, Hx Irritable Bowel, Hx Colonoscopy, Hx Endoscopy. Denies: Hx Cirrhosis, Hx Crohn's Disease, Hx Hepatitis, Hx Pancreatitis, Hx Ulcer Musculoskeltal Medical History: Reports Hx Arthritis - Lupus, Reports Hx Fibromyalgia - Lupus, Denies Hx Multiple Sclerosis, Reports Hx Musculoskeletal Deformity, Reports Hx Musculoskeletal Trauma Skin Medical History: Reports Hx Cellulitis - Recently treated, right breast Psychiatric Medical History: Reports: Hx Anxiety, Hx Depression Denies: Hx Bipolar Disorder, Hx Dementia, Hx Post Traumatic Stress Disorder, Hx Schizophrenia Traumatic Medical History: Reports: Hx Fractures - Knee and hip Infectious Medical History: Reports: Hx C-Diff - Was negative in October2015. Not yet successfully collected stool, Hx MRSA, Hx VRE. Denies: Hx Hepatitis, Hx HIV Past Surgical History: Reports: Hx Appendectomy, Hx Bowel Surgery - Polyps, adhesions, Hx Cardiac Catheterization, Hx Cardiac Surgery - 2 stents 2014, Hx Section, Hx Cholecystectomy, Hx Coronary Stent - 3 stents, Hx Genitourinary Surgery - bladder sling, Hx Herniorrhaphy, Hx Hysterectomy, Hx Orthopedic Surgery - Right knee, bilateral knee replacements and hip replacement metal plate in, Hx Tonsillectomy. Denies: Hx Colostomy, Hx Coronary Artery Bypass Graft, Hx Gastric Bypass Surgery, Hx Mastectomy, Hx Open Heart Surgery, Hx Pacemaker, Hx Tubal Ligation - Immunizations Immunizations up to date: Yes History of Influenza Vaccine for 06/2017 - 11/2017 Season: Yes Influenza Administration Date for 06/2017 - 11/2017 Season: 06/10/17 Physical Exam - Vital signs Vitals: Temp Pulse Resp BP Pulse Ox 98.0 F 101 H 20 140/90 H 97 04/02/18 13:49 04/02/18 13:49 04/02/18 13:49 04/02/18 13:49 04/02/18 13:49 Course - Vital Signs Vital signs: Temp Pulse Resp BP Pulse Ox 98.0 F 101 H 20 140/90 H 97 04/02/18 13:49 04/02/18 13:49 04/02/18 13:49 04/02/18 13:49 04/02/18 13:49 Doctor's Discharge - Discharge Referrals: IAN MUÑOZ MD [Primary Care Provider] - Follow up as needed
[2018-04-02 16:54] LABS: ABSOLUTE LYMPHOCYTES (AUTO) 1.6 10^3/uL (0.5-4.7); ABSOLUTE MONOCYTES (AUTO) 0.7 10^3/uL (0.1-1.4); ABSOLUTE NEUT (AUTO) 7.3 10^3/uL (1.7-8.2); BASOPHILS % (AUTO) 0.3 % (0-2); EOSINOPHILS % (AUTO) 0.1 % (0-6); HEMATOCRIT 38.5 % (36.0-47.0); HEMOGLOBIN 13.1 g/dL (12.0-15.5); LYMPHOCYTES % (AUTO) 16.5 % (13-45); MEAN CORPUSCULAR HEMOGLOBIN 25.9 pg (27.0-33.4); MEAN CORPUSCULAR HGB CONC 33.9 g/dL (32.0-36.0); MEAN CORPUSCULAR VOLUME 76 fl (80-97); MONOCYTES % (AUTO) 7.4 % (3-13); PLATELET COUNT 467 10^3/uL (150-450); RED BLOOD COUNT 5.05 10^6/uL (3.72-5.28); RED CELL DISTRIBUTION WIDTH 18.3 % (11.5-14.0); SEGMENTED NEUTROPHILS % (AUTO) 75.7 % (42-78); TOTAL CELLS COUNTED % (AUTO) 100 %; WHITE BLOOD COUNT 9.6 10^3/uL (4.0-10.5)
[2018-04-02 17:09] LABS: ALANINE AMINOTRANSFERASE 20 U/L (9-52); ALBUMIN 4.2 g/dL (3.5-5.0); ALKALINE PHOSPHATASE 155 U/L (38-126); ANION GAP 19 (5-19); ASPARTATE AMINO TRANSFERASE 17 U/L (14-36); BILIRUBIN,DIRECT 0.3 mg/dL (0.0-0.4); BILIRUBIN,TOTAL 0.9 mg/dL (0.2-1.3); BLOOD UREA NITROGEN 16 mg/dL (7-20); CALCIUM 9.6 mg/dL (8.4-10.2); CARBON DIOXIDE 18 mmol/L (22-30); CHLORIDE 99 mmol/L (98-107); GLUCOSE 73 mg/dL (75-110); LIPASE 91.7 U/L (23-300); POTASSIUM 3.6 mmol/L (3.6-5.0); SODIUM 136.1 mmol/L (137-145); TOTAL PROTEIN 7.4 g/dL (6.3-8.2)
--- NOTE | 2018-04-02 17:33 | PDOC CONSULTATION ---
Consultation Consult Date: 04/02/18 Attending physician:: JEANETTE BANERJEE Consult reason:: change in bowel habits History of Present Illness Admission Date/PCP: 04/02/18 15:54 IAN MUÑOZ MD History of Present Illness: VALENTE MUNOZ is a 62 year old female she has had multiple admission and multiple GI work up she was just discharged and now has to be re-admitted review of her records performed patient states has " persistent diarrhea" but has a normal potassium on admission previous GI work up reviewed it is listed here in this note for future reference 03/[address] Lea , showing esophagitis 2/ EGD performed by Dr Lea 2015 Colonoscopy performed, Dr Banerjee, prep was good, biopsies negative for collagenous , lymphocytic, microscopic colitis EGD performed , Dr Banerjee similar findings as per Dr Lea from this year has had multiple procedures at this point would not recommend further scoping on this patient Past Medical History Cardiac Medical History: Reports: Congestive Heart Failure, Coronary Artery Disease, DVT, Myocardial Infarction, Hyperlipidema, Hypertension, Pulmonary Embolism Denies: Atrial Fibrillation, Peripheral Vascular Disease, Heart Murmur Pulmonary Medical History: Reports: Bronchitis, Chronic Obstructive Pulmonary Disease (COPD) Denies: Asthma, Pneumonia, Respiratory Failure, Sleep Apnea, Tuberculosis Neurological Medical History: Denies: Seizures Endocrine Medical History: Reports: Hypothyroidism Denies: Hyperthyroidism Renal/ Medical History: Denies: End Stage Renal Disease Malignancy Medical History: Reports: Cervical Cancer, Ovarian Cancer Denies: Breast Cancer, Leukemia, Lung Cancer GI Medical History: Reports: Gastroesophageal Reflux Disease, Hiatal Hernia - Repaired Denies: Cirrhosis, Crohn's Disease, Hepatitis Musculoskeltal Medical History: Reports: Arthritis - Lupus, Fibromyalgia - Lupus Psychiatric Medical History: Reports: Depression Denies: Bipolar Disorder, Dementia, Post Traumatic Stress Disorder Hematology: Reports: Anemia - HX OF LOW NA AND K,LOW IRON WILL HAVE IRON TRANS FUSION 05/04. Denies: Hemophilia, Sickle Cell Disease, Bleeding Tendencies Infectious Medical History: Reports: Clostridium Difficile - Was negative in October2015. Not yet successfully collected stool, Methicillin-Resistant Staph Aureus, Vancomycin-Resistant Enterococci Denies: HIV Past Surgical History Past Surgical History: Reports: Appendectomy, Cardiac Catheterization, Section, Cholecystectomy, Coronary Stent - 3 stents, Herniorrhaphy, Hysterectomy , Orthopedic Surgery - Right knee, bilateral knee replacements and hip replacement metal plate in, Tonsillectomy Denies: Amputation, Colostomy, Coronary Artery Bypass Graft, Gastric Bypass Surgery, Mastectomy, Pacemaker, Tubal Ligation Social History Smoking Status: Former Smoker Frequency of Alcohol Use: Rare Hx Recreational Drug Use: No Drugs: None Hx Prescription Drug Abuse: No Family History Family History: Arthritis, COPD, Hyperlipidemia, Hypertension, Malignancy, Thyroid Disfunction Parental Family History Reviewed: Yes Children Family History Reviewed: Unknown Sibling(s) Family History Reviewed.: Unknown Medication/Allergy Home Medications: Atorvastatin Calcium [Lipitor 40 mg Tablet] 40 mg PO QHS 03/18/18 Bethanechol Chloride [Urecholine 10 mg Tablet] 10 mg PO Q8 03/18/18 Clopidogrel Bisulfate [Plavix 75 mg Tablet] 75 mg PO DAILY 03/18/18 Furosemide [Lasix 40 mg Tablet] 40 mg PO DAILY 03/18/18 Gabapentin [Neurontin] 600 mg PO Q8 03/18/18 Hydrocodone Bitartrate [Zohydro ER] 40 mg PO Q12 03/18/18 Oxycodone HCl/Acetaminophen [Endocet 10-325 mg Tablet] 1 tab PO Q6HP PRN Promethazine HCl [Phenergan 25 mg Tablet] 25 mg PO Q6HP PRN 03/18/18 Tizanidine HCl [Zanaflex 4 mg Tablet] 4 mg PO HSP PRN 03/18/18 Allergies/Adverse Reactions: irbesartan [From Avapro] Allergy (Severe, Verified 04/02/18 13:44) swelling of face nitrofurantoin macrocrystalline [From Macrobid] Allergy (Severe, Verified 13:44) Generalized edema Penicillins Allergy (Severe, Verified 04/02/18 13:44) eyes swelled pregabalin [From Lyrica] Allergy (Severe, Verified 04/02/18 13:44) Equilibrium Issues venom-honey bee [bee venom (honey bee)] Allergy (Verified 04/02/18 13:44) Anaphylaxis Review of Systems Constitutional: ABSENT: fever(s), headache(s), night sweats Eyes: ABSENT: visual disturbances Ears: ABSENT: hearing changes Nose, Mouth, and Throat: ABSENT: mouth pain, sore throat Cardiovascular: ABSENT: edema, orthropnea, palpitations Respiratory: ABSENT: dyspnea, hemoptysis Gastrointestinal: ABSENT: hematochezia, melena Genitourinary: ABSENT: dysuria, hematuria Integumentary: ABSENT: pruritus Neurological: ABSENT: syncope, tingling, tremor(s), vertigo Endocrine: PRESENT: polydipsia. ABSENT: polyphagia, polyuria Hematologic/Lymphatic: ABSENT: easy bruising Physical Exam Vital Signs: Temp Pulse Resp BP Pulse Ox 98.0 F 101 H 20 140/90 H 97 04/02/18 13:49 04/02/18 13:49 04/02/18 13:49 04/02/18 13:49 04/02/18 13:49 General appearance: PRESENT: no acute distress, well-developed, well-nourished Head exam: PRESENT: atraumatic, normocephalic Eye exam: PRESENT: EOMI, PERRLA. ABSENT: nystagmus, periorbital swelling, scleral icterus Mouth exam: PRESENT: moist, neck supple Throat exam: ABSENT: tonsillar exudate, tonsillogmegaly Respiratory exam: PRESENT: symmetrical, unlabored. ABSENT: tachypnea, wheezes Cardiovascular exam: PRESENT: +S1, +S2 GI/Abdominal exam: PRESENT: soft. ABSENT: rebound, rigid, tenderness Neurological exam: PRESENT: oriented to time, oriented to situation, CN II-XII grossly intact Skin exam: PRESENT: normal color. ABSENT: mottled, pallor, urticaria, vesicles Results Laboratory Results: 04/02/18 16:38 04/02/18 16:38 04/02/18 04/02/18 16:38 16:38 WBC 9.6 RBC 5.05 Hgb 13.1 Hct 38.5 MCV 76 L MCH 25.9 L MCHC 33.9 RDW 18.3 H Plt Count 467 H Seg Neutrophils % 75.7 Lymphocytes % 16.5 Monocytes % 7.4 Eosinophils % 0.1 Basophils % 0.3 Absolute Neutrophils 7.3 Absolute Lymphocytes 1.6 Absolute Monocytes 0.7 Absolute Eosinophils 0.0 Absolute Basophils 0.0 Sodium 136.1 L Potassium 3.6 Chloride 99 Carbon Dioxide 18 L Anion Gap 19 BUN 16 Creatinine 1.10 Est GFR ( Amer) > 60 Est GFR (Non-Af Amer) 50 L Glucose 73 L Calcium 9.6 Total Bilirubin 0.9 AST 17 ALT 20 Alkaline Phosphatase 155 H Total Protein 7.4 Albumin 4.2 Lipase 91.7 Impressions: Chest X-Ray 04/02/18 00:00 IMPRESSION: NO ACUTE RADIOGRAPHIC FINDING IN THE CHEST. Assessment & Plan - Diagnosis (1) Diarrhea Plan: potassium on admission is normal ? chronicity as per patient has had work up in the past no etiology has been found recommend other work up at this point 1.recheck thyroid studies 2.patient may have small bowel intestinal overgrowth trial of Xifaxin to see if that would help 3.check for C.Diff and treat as needed 4. Review all medications as that is traditionally the usual cause 5. Do not believe that scoping her would be useful in this case - Time Time Spent: 50 to 70 Minutes
[2018-04-02] MEDS: VANCOMYCIN HCL INJ 500 MG VIAL PO SCH ×2 (18:56→23:55)
--- NOTE | 2018-04-02 19:38 | Progress Note ---
Provider Note Provider Note: C. Diff toxin is positive would recommend Dificid for 10 days 200mg po BID for 10 days minimize use of antibiotics start daily probiotic treatment as an outpatient.
[2018-04-02] MEDS ORDERED: BETHANECHOL CHLORIDE 10 MG PO SCH (22:00)
[2018-04-02] MEDS: GABAPENTIN 300 MG CAPSULE PO SCH (22:01)
[2018-04-02] MEDS: OXYCODONE HCL IR 5 MG TABLET PO PRN (22:01)
[2018-04-02] MEDS: ATORVASTATIN CALCIUM 40 MG TABLET PO SCH (22:02)
[2018-04-02] MEDS: SUCRALFATE 1 GM TABLET PO SCH (22:02)
[2018-04-02] MEDS: PROMETHAZINE HCL 25 MG TABLET PO PRN (22:02)
[2018-04-02] MEDS: OXYCODONE-ACETAMINOPHEN 5-325 MG TABLET PO PRN (22:02)
[2018-04-03] MEDS: NORMAL SALINE 1000 ML 1,000 ML IV PRN ×3 (00:43→21:51)
[2018-04-03] MEDS: OXYCODONE-ACETAMINOPHEN 5-325 MG TABLET PO PRN ×4 (04:00→23:38)
[2018-04-03] MEDS: PROMETHAZINE HCL 25 MG TABLET PO PRN ×4 (04:01→23:39)
[2018-04-03] MEDS: OXYCODONE HCL IR 5 MG TABLET PO PRN ×4 (04:01→23:39)
[2018-04-03] MEDS ORDERED: VANCOMYCIN HCL INJ 500 MG VIAL ONE (05:50)
[2018-04-03] MEDS: VANCOMYCIN HCL INJ 500 MG VIAL PO SCH ×4 (06:17→23:38)
[2018-04-03] MEDS: LANSOPRAZOLE 30 MG TAB.RAP.DR PO SCH ×2 (06:17→17:32)
[2018-04-03] MEDS: GABAPENTIN 300 MG CAPSULE PO SCH ×3 (06:20→21:51)
[2018-04-03 06:52] LABS: APPEARANCE,URINE SLIGHTLY-CLOUDY; BILIRUBIN,URINE NEGATIVE (NEGATIVE); COLOR,URINE YELLOW; GLUCOSE, URINE NEGATIVE (NEGATIVE); KETONES,URINE NEGATIVE (NEGATIVE); LEUKOCYTE ESTERASE,URINE LARGE (NEGATIVE); NITRITE,URINE NEGATIVE (NEGATIVE); PROTEIN,URINE NEGATIVE (NEGATIVE); UROBILINOGEN,URINE NEGATIVE mg/dL (<2.0)
[2018-04-03] MEDS: SERTRALINE HCL 50 MG TABLET PO SCH (10:17)
[2018-04-03] MEDS: SUCRALFATE 1 GM TABLET PO SCH ×4 (10:18→21:51)
--- NOTE | 2018-04-03 20:52 | PDOC H&P ---
History of Present Illness Admission Date/PCP: 04/02/18 15:54 IAN MUÑOZ MD History of Present Illness: VALENTE MUNOZ is a 62 year old female, She came to the office today for evaluation of diarrhea and vomiting, she was discharged from this hospital last week , she came to the office on Sunday of this week for evaluation of vomiting and diarrhea, she return the office again today on Sunday for the same problem she was admitted directly for evaluation, the stool was positive for C. difficile toxin Past Medical History Cardiac Medical History: Reports: Congestive Heart Failure, Coronary Artery Disease, DVT, Myocardial Infarction, Hyperlipidema, Hypertension, Pulmonary Embolism Denies: Atrial Fibrillation, Peripheral Vascular Disease, Heart Murmur Pulmonary Medical History: Reports: Bronchitis, Chronic Obstructive Pulmonary Disease (COPD) Denies: Asthma, Pneumonia, Respiratory Failure, Sleep Apnea, Tuberculosis Neurological Medical History: Denies: Seizures Endocrine Medical History: Reports: Hypothyroidism Denies: Hyperthyroidism Renal/ Medical History: Denies: End Stage Renal Disease Malignancy Medical History: Reports: Cervical Cancer, Ovarian Cancer Denies: Breast Cancer, Leukemia, Lung Cancer GI Medical History: Reports: Gastroesophageal Reflux Disease, Hiatal Hernia - Repaired Denies: Cirrhosis, Crohn's Disease, Hepatitis Musculoskeltal Medical History: Reports: Arthritis - Lupus, Fibromyalgia - Lupus Psychiatric Medical History: Reports: Depression Denies: Bipolar Disorder, Dementia, Post Traumatic Stress Disorder Hematology: Reports: Anemia - HX OF LOW NA AND K,LOW IRON WILL HAVE IRON TRANS FUSION 05/04. Denies: Hemophilia, Sickle Cell Disease, Bleeding Tendencies Infectious Medical History: Reports: Clostridium Difficile - Was negative in October2015. Not yet successfully collected stool, Methicillin-Resistant Staph Aureus, Vancomycin-Resistant Enterococci Denies: HIV Past Surgical History Past Surgical History: Reports: Appendectomy, Cardiac Catheterization, Section, Cholecystectomy, Coronary Stent - 3 stents, Herniorrhaphy, Hysterectomy , Orthopedic Surgery - Right knee, bilateral knee replacements and hip replacement metal plate in, Tonsillectomy Denies: Amputation, Colostomy, Coronary Artery Bypass Graft, Gastric Bypass Surgery, Mastectomy, Pacemaker, Tubal Ligation Social History Smoking Status: Former Smoker Frequency of Alcohol Use: Rare Hx Recreational Drug Use: No Drugs: None Hx Prescription Drug Abuse: No - Advance Directive Resuscitation Status: Full Code Family History Family History: Arthritis, COPD, Hyperlipidemia, Hypertension, Malignancy, Thyroid Disfunction Parental Family History Reviewed: Yes Children Family History Reviewed: Yes Sibling(s) Family History Reviewed.: Yes Medication/Allergy Home Medications: Atorvastatin Calcium [Lipitor 40 mg Tablet] 40 mg PO QHS 03/18/18 Bethanechol Chloride [Urecholine 10 mg Tablet] 10 mg PO Q8 03/18/18 Clopidogrel Bisulfate [Plavix 75 mg Tablet] 75 mg PO DAILY 03/18/18 Furosemide [Lasix 40 mg Tablet] 40 mg PO DAILY 03/18/18 Gabapentin [Neurontin] 600 mg PO Q8 03/18/18 Hydrocodone Bitartrate [Zohydro ER] 40 mg PO Q12 03/18/18 Oxycodone HCl/Acetaminophen [Endocet 10-325 mg Tablet] 1 tab PO Q6HP PRN Promethazine HCl [Phenergan 25 mg Tablet] 25 mg PO Q6HP PRN 03/18/18 Tizanidine HCl [Zanaflex 4 mg Tablet] 4 mg PO HSP PRN 03/18/18 Pantoprazole Sodium [Protonix] 40 mg PO BID 04/02/18 Sertraline HCl [Zoloft 50 mg Tablet] 50 mg PO DAILY 04/02/18 Sucralfate [Carafate 1 gm Tablet] 1 gm PO QID 04/02/18 Allergies/Adverse Reactions: irbesartan [From Avapro] Allergy (Severe, Verified 04/02/18 18:38) swelling of face nitrofurantoin macrocrystalline [From Macrobid] Allergy (Severe, Verified 18:38) Generalized edema Penicillins Allergy (Severe, Verified 04/02/18 18:38) eyes swelled pregabalin [From Lyrica] Allergy (Severe, Verified 04/02/18 18:38) Equilibrium Issues venom-honey bee [bee venom (honey bee)] Allergy (Verified 04/02/18 18:38) Anaphylaxis Review of Systems Constitutional: ABSENT: chills, fever(s), headache(s), weight gain, weight loss Eyes: ABSENT: visual disturbances Ears: ABSENT: hearing changes Cardiovascular: ABSENT: chest pain, dyspnea on exertion, edema, orthropnea, palpitations Respiratory: ABSENT: cough, hemoptysis Gastrointestinal: PRESENT: diarrhea, vomiting Genitourinary: ABSENT: dysuria, hematuria Musculoskeletal: ABSENT: joint swelling Integumentary: ABSENT: rash, wounds Neurological: ABSENT: abnormal gait, abnormal speech, confusion, dizziness, focal weakness, syncope Psychiatric: ABSENT: anxiety, depression, homidical ideation, suicidal ideation Endocrine: ABSENT: cold intolerance, heat intolerance, menstrual abnormalities, polydipsia, polyuria Hematologic/Lymphatic: ABSENT: easy bleeding, easy bruising, lymphadenopathy Physical Exam Vital Signs: Temp Pulse Resp BP Pulse Ox 98.5 F 80 19 120/60 100 04/03/18 16:14 04/03/18 16:14 04/03/18 16:14 04/03/18 16:14 04/03/18 16:14 Intake & Output 04/02/18 04/03/18 04/04/18 06:59 06:59 06:59 Intake Total 2745 Output Total 0 Balance 0 2745 Weight 80.9 kg General appearance: PRESENT: mild distress Head exam: PRESENT: atraumatic, normocephalic Eye exam: PRESENT: PERRLA. ABSENT: scleral icterus Ear exam: PRESENT: normal external ear exam Mouth exam: PRESENT: dry mucosa Neck exam: PRESENT: full ROM Respiratory exam: PRESENT: clear to auscultation martínez Cardiovascular exam: PRESENT: +S1, +S2 Pulses: PRESENT: normal dorsalis pedis pul, +2 pedal pulses bilateral Vascular exam: PRESENT: normal capillary refill GI/Abdominal exam: PRESENT: normal bowel sounds, soft Rectal exam: PRESENT: deferred Neurological exam: PRESENT: alert, awake, oriented to person, oriented to place , oriented to time, oriented to situation, CN II-XII grossly intact Psychiatric exam: PRESENT: appropriate affect, normal mood Skin exam: PRESENT: dry, intact, warm Results Laboratory Results: 04/02/18 16:38 04/02/18 16:38 04/03/18 06:00 Urine Color YELLOW Urine Appearance SLIGHTLY-CLOUDY Urine pH 6.0 Ur Specific [place] 1.010 Urine Protein NEGATIVE Urine Glucose (UA) NEGATIVE Urine Ketones NEGATIVE Urine Blood NEGATIVE Urine Nitrite NEGATIVE Ur Leukocyte Esterase LARGE H Urine WBC (Auto) 87 Urine RBC (Auto) 10 Impressions: Chest X-Ray 04/02/18 00:00 IMPRESSION: NO ACUTE RADIOGRAPHIC FINDING IN THE CHEST. Assessment & Plan - Diagnosis (1) Recurrent Clostridium difficile diarrhea Is this a current diagnosis for this admission?: Yes Plan: Patient is admitted for management (2) Dehydration Is this a current diagnosis for this admission?: Yes
[2018-04-03] MEDS: ATORVASTATIN CALCIUM 40 MG TABLET PO SCH (21:50)
[2018-04-04] MEDS: GABAPENTIN 300 MG CAPSULE PO SCH ×3 (05:49→21:33)
[2018-04-04] MEDS: LANSOPRAZOLE 30 MG TAB.RAP.DR PO SCH ×2 (05:49→18:30)
[2018-04-04] MEDS: OXYCODONE-ACETAMINOPHEN 5-325 MG TABLET PO PRN ×3 (05:49→18:29)
[2018-04-04] MEDS: OXYCODONE HCL IR 5 MG TABLET PO PRN ×3 (05:49→18:30)
[2018-04-04] MEDS: PROMETHAZINE HCL 25 MG TABLET PO PRN ×3 (05:49→18:30)
[2018-04-04] MEDS: VANCOMYCIN HCL INJ 500 MG VIAL PO SCH ×3 (05:50→18:28)
[2018-04-04] MEDS: SUCRALFATE 1 GM TABLET PO SCH ×4 (11:54→21:33)
[2018-04-04] MEDS: SERTRALINE HCL 50 MG TABLET PO SCH (11:54)
[2018-04-04] MEDS: NORMAL SALINE 1000 ML 1,000 ML IV PRN ×2 (11:55→21:36)
--- NOTE | 2018-04-04 12:30 | Progress Note ---
Provider Note Provider Note: noted that patient started on Vancomycin instead of Dificid patient had EGD done last week by Dr Lea, biopsies are negative no further need to repeat EGD on this readmission perhaps outpatient testing for gastric emptying study discharge when stable.
--- NOTE | 2018-04-04 21:01 | PDOC PROGRESS REPORT ---
Subjective Progress Note for:: 04/04/18 Subjective:: She has recurrent C. difficile colitis seen by the bedside on treatment requiring pain medication, IV fluids Reason For Visit: PERSISTENT DIARRHEA Physical Exam Vital Signs: Temp Pulse Resp BP Pulse Ox 98.0 F 80 17 150/80 H 100 04/04/18 16:00 04/04/18 16:00 04/04/18 16:00 04/04/18 16:00 04/04/18 16:00 Intake & Output 04/03/18 04/04/18 04/05/18 06:59 06:59 06:59 Intake Total 4129 2380 Output Total 0 1400 1050 Balance 0 2729 1330 Weight 80.9 kg 84.8 kg General appearance: PRESENT: no acute distress Eye exam: PRESENT: PERRLA Respiratory exam: PRESENT: clear to auscultation martínez Cardiovascular exam: PRESENT: +S1, +S2 Neurological exam: PRESENT: alert Results Laboratory Results: 04/02/18 16:38 04/02/18 16:38 Impressions: Chest X-Ray 04/02/18 00:00 IMPRESSION: NO ACUTE RADIOGRAPHIC FINDING IN THE CHEST. Assessment & Plan - Diagnosis (1) Recurrent Clostridium difficile diarrhea Is this a current diagnosis for this admission?: Yes (2) Dehydration Is this a current diagnosis for this admission?: Yes
[2018-04-04] MEDS: ATORVASTATIN CALCIUM 40 MG TABLET PO SCH (21:33)
[2018-04-04 21:58] LABS: ALANINE AMINOTRANSFERASE 18 U/L (9-52); ALBUMIN 3.3 g/dL (3.5-5.0); ALKALINE PHOSPHATASE 119 U/L (38-126); ANION GAP 11 (5-19); ASPARTATE AMINO TRANSFERASE 16 U/L (14-36); BILIRUBIN,DIRECT 0.3 mg/dL (0.0-0.4); BILIRUBIN,TOTAL 0.3 mg/dL (0.2-1.3); BLOOD UREA NITROGEN 8 mg/dL (7-20); CALCIUM 8.1 mg/dL (8.4-10.2); CARBON DIOXIDE 22 mmol/L (22-30); CHLORIDE 106 mmol/L (98-107); GLUCOSE 84 mg/dL (75-110); POTASSIUM 3.6 mmol/L (3.6-5.0); SODIUM 138.5 mmol/L (137-145); TOTAL PROTEIN 5.8 g/dL (6.3-8.2)
[2018-04-05] MEDS: OXYCODONE-ACETAMINOPHEN 5-325 MG TABLET PO PRN ×5 (00:24→23:45)
[2018-04-05] MEDS: PROMETHAZINE HCL 25 MG TABLET PO PRN ×3 (00:24→12:59)
[2018-04-05] MEDS: OXYCODONE HCL IR 5 MG TABLET PO PRN ×5 (00:25→23:45)
[2018-04-05] MEDS: VANCOMYCIN HCL INJ 500 MG VIAL PO SCH ×5 (00:27→23:44)
[2018-04-05] MEDS: LANSOPRAZOLE 30 MG TAB.RAP.DR PO SCH ×2 (06:31→18:29)
[2018-04-05] MEDS: GABAPENTIN 300 MG CAPSULE PO SCH ×3 (06:31→22:14)
[2018-04-05 07:23] LABS: ALANINE AMINOTRANSFERASE 16 U/L (9-52); ALBUMIN 3.3 g/dL (3.5-5.0); ALKALINE PHOSPHATASE 113 U/L (38-126); ANION GAP 12 (5-19); ASPARTATE AMINO TRANSFERASE 15 U/L (14-36); BILIRUBIN,DIRECT 0.3 mg/dL (0.0-0.4); BILIRUBIN,TOTAL 0.3 mg/dL (0.2-1.3); BLOOD UREA NITROGEN 6 mg/dL (7-20); CALCIUM 8.2 mg/dL (8.4-10.2); CARBON DIOXIDE 21 mmol/L (22-30); CHLORIDE 107 mmol/L (98-107); GLUCOSE 86 mg/dL (75-110); POTASSIUM 3.9 mmol/L (3.6-5.0); SODIUM 139.8 mmol/L (137-145); TOTAL PROTEIN 5.8 g/dL (6.3-8.2)
[2018-04-05] MEDS: SERTRALINE HCL 50 MG TABLET PO SCH (10:03)
[2018-04-05] MEDS: SUCRALFATE 1 GM TABLET PO SCH ×4 (10:03→22:13)
[2018-04-05] MEDS: NORMAL SALINE 1000 ML 1,000 ML IV PRN ×2 (10:03→19:30)
--- NOTE | 2018-04-05 20:59 | PDOC PROGRESS REPORT ---
Subjective Progress Note for:: 04/05/18 Subjective:: She was admitted for the management of recurrent diarrhea and vomiting due to recurrent Clostridium difficile toxinemia. She is prone to UTI because she does self catheterization, whenever she is treated with antibiotic for UTI she developed C. difficile infection with subsequent GI symptoms diarrhea, vomiting complicated with dehydration requiring hospital admission that has been the pattern for few weeks Reason For Visit: PERSISTENT DIARRHEA Physical Exam Vital Signs: Temp Pulse Resp BP Pulse Ox 98.3 F 83 18 134/62 H 99 04/05/18 15:45 04/05/18 15:45 04/05/18 15:45 04/05/18 15:45 04/05/18 15:45 Intake & Output 04/04/18 04/05/18 04/06/18 06:59 06:59 06:59 Intake Total 4129 4300 2660 Output Total 1400 3050 1100 Balance 2729 1250 1560 Weight 84.8 kg 87.5 kg Eye exam: PRESENT: PERRLA Respiratory exam: PRESENT: clear to auscultation martínez Cardiovascular exam: PRESENT: +S1, +S2 GI/Abdominal exam: PRESENT: soft Neurological exam: PRESENT: alert Results Laboratory Results: 04/02/18 16:38 04/05/18 06:49 04/04/18 04/05/18 21:30 06:49 Sodium 138.5 139.8 Potassium 3.6 3.9 Chloride 106 107 Carbon Dioxide 22 21 L Anion Gap 11 12 BUN 8 6 L Creatinine 0.89 0.83 Est GFR ( Amer) > 60 > 60 Est GFR (Non-Af Amer) > 60 > 60 Glucose 84 86 Calcium 8.1 L 8.2 L Total Bilirubin 0.3 0.3 AST 16 15 ALT 18 16 Alkaline Phosphatase 119 113 Total Protein 5.8 L 5.8 L Albumin 3.3 L 3.3 L Impressions: Chest X-Ray 04/02/18 00:00 IMPRESSION: NO ACUTE RADIOGRAPHIC FINDING IN THE CHEST. Assessment & Plan - Diagnosis (1) Recurrent Clostridium difficile diarrhea Is this a current diagnosis for this admission?: Yes (2) Dehydration Is this a current diagnosis for this admission?: Yes
[2018-04-05] MEDS: ATORVASTATIN CALCIUM 40 MG TABLET PO SCH (22:13)
[2018-04-05] MEDS: PROMETHAZINE HCL INJ 25 MG/1 ML VIAL IV PRN (23:44)
[2018-04-06] MEDS: OXYCODONE-ACETAMINOPHEN 5-325 MG TABLET PO PRN ×3 (04:27→20:38)
[2018-04-06] MEDS: OXYCODONE HCL IR 5 MG TABLET PO PRN ×3 (04:28→20:39)
[2018-04-06] MEDS: VANCOMYCIN HCL INJ 500 MG VIAL PO SCH ×3 (05:56→20:38)
[2018-04-06] MEDS: PROMETHAZINE HCL INJ 25 MG/1 ML VIAL IV PRN ×3 (05:56→20:38)
[2018-04-06] MEDS: GABAPENTIN 300 MG CAPSULE PO SCH ×3 (05:57→22:45)
[2018-04-06] MEDS: LANSOPRAZOLE 30 MG TAB.RAP.DR PO SCH ×2 (05:57→18:08)
[2018-04-06] MEDS: NORMAL SALINE 1000 ML 1,000 ML IV PRN ×2 (05:57→15:48)
[2018-04-06] MEDS: SUCRALFATE 1 GM TABLET PO SCH ×4 (11:08→22:45)
[2018-04-06] MEDS: SERTRALINE HCL 50 MG TABLET PO SCH (11:08)
--- NOTE | 2018-04-06 15:56 | PDOC PROGRESS REPORT ---
Subjective Progress Note for:: 04/06/18 Subjective:: She was admitted for the management of recurrent diarrhea and vomiting due to recurrent Clostridium difficile toxinemia. She is prone to UTI because she does self catheterization, whenever she is treated with antibiotic for UTI she developed C. difficile infection with subsequent GI symptoms diarrhea, vomiting complicated with dehydration requiring hospital admission that has been the pattern for few weeks Reason For Visit: PERSISTENT DIARRHEA Physical Exam Vital Signs: Temp Pulse Resp BP Pulse Ox 98.3 F 76 15 147/65 H 100 04/06/18 11:47 04/06/18 11:47 04/06/18 11:47 04/06/18 11:47 04/06/18 11:47 Intake & Output 04/05/18 04/06/18 04/07/18 06:59 06:59 06:59 Intake Total 985 Balance 985 General appearance: PRESENT: no acute distress Eye exam: PRESENT: PERRLA Respiratory exam: PRESENT: clear to auscultation martínez Cardiovascular exam: PRESENT: +S1, +S2 GI/Abdominal exam: PRESENT: soft Results Impressions: Chest X-Ray 04/02/18 00:00 IMPRESSION: NO ACUTE RADIOGRAPHIC FINDING IN THE CHEST. Assessment & Plan - Diagnosis (1) Recurrent Clostridium difficile diarrhea Is this a current diagnosis for this admission?: Yes (2) Dehydration Is this a current diagnosis for this admission?: Yes
[2018-04-06] MEDS ORDERED: TIZANIDINE HCL 4 MG TABLET PO PRN (20:16)
[2018-04-06] MEDS ORDERED: HYDROCODONE BITARTRATE 40 MG PO SCH (22:00)
[2018-04-06] MEDS: ATORVASTATIN CALCIUM 40 MG TABLET PO SCH (22:45)
[2018-04-07] MEDS: VANCOMYCIN HCL INJ 500 MG VIAL PO SCH ×4 (00:23→17:29)
[2018-04-07] MEDS: NORMAL SALINE 1000 ML 1,000 ML IV PRN ×4 (01:11→23:27)
[2018-04-07] MEDS: OXYCODONE HCL IR 5 MG TABLET PO PRN ×5 (01:11→20:52)
[2018-04-07] MEDS: OXYCODONE-ACETAMINOPHEN 5-325 MG TABLET PO PRN ×5 (01:12→20:53)
[2018-04-07] MEDS: PROMETHAZINE HCL INJ 25 MG/1 ML VIAL IV PRN ×4 (02:38→22:14)
[2018-04-07] MEDS: GABAPENTIN 300 MG CAPSULE PO SCH ×3 (05:35→22:14)
[2018-04-07] MEDS: LANSOPRAZOLE 30 MG TAB.RAP.DR PO SCH ×2 (05:36→17:29)
[2018-04-07] MEDS: SERTRALINE HCL 50 MG TABLET PO SCH (09:02)
[2018-04-07] MEDS: CLOPIDOGREL BISULFATE 75 MG TABLET PO SCH (09:02)
[2018-04-07] MEDS: FUROSEMIDE 40 MG TABLET PO SCH (09:02)
[2018-04-07] MEDS: SUCRALFATE 1 GM TABLET PO SCH ×4 (09:02→22:14)
[2018-04-07] MEDS: HYDROXYCHLOROQUINE SULFATE 200 MG TABLET PO SCH ×2 (09:02→17:29)
[2018-04-07 13:53] LABS: ABSOLUTE EOSINOPHILS # (AUTO) 0.1 10^3/uL (0.0-0.6); ABSOLUTE LYMPHOCYTES (AUTO) 0.9 10^3/uL (0.5-4.7); ABSOLUTE MONOCYTES (AUTO) 0.4 10^3/uL (0.1-1.4); ABSOLUTE NEUT (AUTO) 4.3 10^3/uL (1.7-8.2); BASOPHILS % (AUTO) 0.4 % (0-2); EOSINOPHILS % (AUTO) 1.7 % (0-6); HEMATOCRIT 29.8 % (36.0-47.0); HEMOGLOBIN 10.3 g/dL (12.0-15.5); LYMPHOCYTES % (AUTO) 15.7 % (13-45); MEAN CORPUSCULAR HEMOGLOBIN 26.9 pg (27.0-33.4); MEAN CORPUSCULAR HGB CONC 34.5 g/dL (32.0-36.0); MEAN CORPUSCULAR VOLUME 78 fl (80-97); MONOCYTES % (AUTO) 6.5 % (3-13); PLATELET COUNT 320 10^3/uL (150-450); RED BLOOD COUNT 3.82 10^6/uL (3.72-5.28); RED CELL DISTRIBUTION WIDTH 18.1 % (11.5-14.0); SEGMENTED NEUTROPHILS % (AUTO) 75.7 % (42-78); TOTAL CELLS COUNTED % (AUTO) 100 %; WHITE BLOOD COUNT 5.7 10^3/uL (4.0-10.5)
[2018-04-07 14:11] LABS: ALANINE AMINOTRANSFERASE 18 U/L (9-52); ALBUMIN 3.1 g/dL (3.5-5.0); ALKALINE PHOSPHATASE 101 U/L (38-126); ANION GAP 7 (5-19); ASPARTATE AMINO TRANSFERASE 16 U/L (14-36); BILIRUBIN,DIRECT 0.2 mg/dL (0.0-0.4); BILIRUBIN,TOTAL 0.3 mg/dL (0.2-1.3); BLOOD UREA NITROGEN 3 mg/dL (7-20); CALCIUM 8.2 mg/dL (8.4-10.2); CARBON DIOXIDE 28 mmol/L (22-30); CHLORIDE 109 mmol/L (98-107); GLUCOSE 87 mg/dL (75-110); POTASSIUM 3.6 mmol/L (3.6-5.0); TOTAL PROTEIN 5.5 g/dL (6.3-8.2)
--- NOTE | 2018-04-07 15:37 | PDOC PROGRESS REPORT ---
Subjective Progress Note for:: 04/07/18 Subjective:: She was admitted for the management of recurrent diarrhea and vomiting due to recurrent Clostridium difficile toxinemia. She is prone to UTI because she does self catheterization, whenever she is treated with antibiotic for UTI she developed C. difficile infection with subsequent GI symptoms diarrhea, vomiting complicated with dehydration requiring hospital admission that has been the pattern for few weeks Reason For Visit: PERSISTENT DIARRHEA Physical Exam Vital Signs: Temp Pulse Resp BP Pulse Ox 97.9 F 91 17 152/70 H 96 04/07/18 10:53 04/07/18 10:53 04/07/18 10:53 04/07/18 10:53 04/07/18 10:53 Intake & Output 04/06/18 04/07/18 04/08/18 06:59 06:59 06:59 Intake Total 3751 1113 Balance 3751 1113 Weight 91.1 kg General appearance: PRESENT: no acute distress Eye exam: PRESENT: PERRLA Respiratory exam: PRESENT: clear to auscultation martínez Cardiovascular exam: PRESENT: +S1, +S2 GI/Abdominal exam: PRESENT: soft Neurological exam: PRESENT: alert Results Laboratory Results: 04/07/18 13:38 04/07/18 13:38 04/07/18 04/07/18 13:38 13:38 WBC 5.7 RBC 3.82 Hgb 10.3 L Hct 29.8 L MCV 78 L MCH 26.9 L MCHC 34.5 RDW 18.1 H Plt Count 320 Seg Neutrophils % 75.7 Lymphocytes % 15.7 Monocytes % 6.5 Eosinophils % 1.7 Basophils % 0.4 Absolute Neutrophils 4.3 Absolute Lymphocytes 0.9 Absolute Monocytes 0.4 Absolute Eosinophils 0.1 Absolute Basophils 0.0 Sodium 144.0 Potassium 3.6 Chloride 109 H Carbon Dioxide 28 Anion Gap 7 BUN 3 L Creatinine 0.89 Est GFR ( Amer) > 60 Est GFR (Non-Af Amer) > 60 Glucose 87 Calcium 8.2 L Total Bilirubin 0.3 AST 16 ALT 18 Alkaline Phosphatase 101 Total Protein 5.5 L Albumin 3.1 L Impressions: Chest X-Ray 04/02/18 00:00 IMPRESSION: NO ACUTE RADIOGRAPHIC FINDING IN THE CHEST. Assessment & Plan - Diagnosis (1) Recurrent Clostridium difficile diarrhea Is this a current diagnosis for this admission?: Yes (2) Dehydration Is this a current diagnosis for this admission?: Yes
[2018-04-07] MEDS: ATORVASTATIN CALCIUM 40 MG TABLET PO SCH (22:14)
[2018-04-08] MEDS: OXYCODONE HCL IR 5 MG TABLET PO PRN ×4 (01:24→14:46)
[2018-04-08] MEDS: VANCOMYCIN HCL INJ 500 MG VIAL PO SCH ×5 (01:24→23:15)
[2018-04-08] MEDS: OXYCODONE-ACETAMINOPHEN 5-325 MG TABLET PO PRN ×4 (01:25→14:45)
[2018-04-08] MEDS: GABAPENTIN 300 MG CAPSULE PO SCH ×3 (05:47→23:15)
[2018-04-08] MEDS: LANSOPRAZOLE 30 MG TAB.RAP.DR PO SCH ×2 (05:47→18:10)
[2018-04-08] MEDS: PROMETHAZINE HCL INJ 25 MG/1 ML VIAL IV PRN ×2 (05:47→19:55)
[2018-04-08 06:43] LABS: ABSOLUTE EOSINOPHILS # (AUTO) 0.2 10^3/uL (0.0-0.6); ABSOLUTE LYMPHOCYTES (AUTO) 2.3 10^3/uL (0.5-4.7); ABSOLUTE MONOCYTES (AUTO) 0.5 10^3/uL (0.1-1.4); ABSOLUTE NEUT (AUTO) 4.6 10^3/uL (1.7-8.2); BASOPHILS % (AUTO) 0.3 % (0-2); EOSINOPHILS % (AUTO) 2.1 % (0-6); HEMATOCRIT 29.2 % (36.0-47.0); HEMOGLOBIN 9.9 g/dL (12.0-15.5); LYMPHOCYTES % (AUTO) 30.1 % (13-45); MEAN CORPUSCULAR HEMOGLOBIN 26.6 pg (27.0-33.4); MEAN CORPUSCULAR VOLUME 78 fl (80-97); MONOCYTES % (AUTO) 6.7 % (3-13); PLATELET COUNT 333 10^3/uL (150-450); RED BLOOD COUNT 3.73 10^6/uL (3.72-5.28); RED CELL DISTRIBUTION WIDTH 18.4 % (11.5-14.0); SEGMENTED NEUTROPHILS % (AUTO) 60.8 % (42-78); TOTAL CELLS COUNTED % (AUTO) 100 %; WHITE BLOOD COUNT 7.5 10^3/uL (4.0-10.5)
[2018-04-08 06:58] LABS: ALANINE AMINOTRANSFERASE 17 U/L (9-52); ALBUMIN 3.1 g/dL (3.5-5.0); ALKALINE PHOSPHATASE 95 U/L (38-126); ANION GAP 13 (5-19); ASPARTATE AMINO TRANSFERASE 15 U/L (14-36); BILIRUBIN,DIRECT 0.1 mg/dL (0.0-0.4); BILIRUBIN,TOTAL 0.1 mg/dL (0.2-1.3); BLOOD UREA NITROGEN 4 mg/dL (7-20); CALCIUM 7.9 mg/dL (8.4-10.2); CARBON DIOXIDE 23 mmol/L (22-30); CHLORIDE 106 mmol/L (98-107); GLUCOSE 92 mg/dL (75-110); POTASSIUM 3.4 mmol/L (3.6-5.0); SODIUM 142.4 mmol/L (137-145); TOTAL PROTEIN 5.5 g/dL (6.3-8.2)
[2018-04-08] MEDS: NORMAL SALINE 1000 ML 1,000 ML IV PRN ×2 (10:08→19:57)
[2018-04-08] MEDS: SUCRALFATE 1 GM TABLET PO SCH ×4 (10:14→23:15)
[2018-04-08] MEDS: FUROSEMIDE 40 MG TABLET PO SCH (10:15)
[2018-04-08] MEDS: CLOPIDOGREL BISULFATE 75 MG TABLET PO SCH (10:15)
[2018-04-08] MEDS: SERTRALINE HCL 50 MG TABLET PO SCH (10:15)
[2018-04-08] MEDS: HYDROXYCHLOROQUINE SULFATE 200 MG TABLET PO SCH ×2 (10:21→18:10)
[2018-04-08] MEDS: PROMETHAZINE HCL 25 MG TABLET PO PRN (14:47)
[2018-04-08] MEDS: HYDROMORPHONE HCL INJ/PF 2 MG/ML AMPULE IV PRN (19:56)
--- NOTE | 2018-04-08 20:36 | PDOC PROGRESS REPORT ---
Subjective Progress Note for:: 04/08/18 Subjective:: Patient with persistent diarrhea Reason For Visit: PERSISTENT DIARRHEA Physical Exam Vital Signs: Temp Pulse Resp BP Pulse Ox 98.4 F 77 18 129/68 H 97 04/08/18 07:07 04/08/18 07:07 04/08/18 07:07 04/08/18 07:07 04/08/18 07:07 Intake & Output 04/07/18 04/08/18 04/09/18 06:59 06:59 06:59 Intake Total 3751 3125 2750 Output Total 1425 1800 Balance 3751 1700 950 Weight 91.1 kg 93.2 kg General appearance: PRESENT: no acute distress Eye exam: PRESENT: PERRLA Respiratory exam: PRESENT: clear to auscultation martínez Cardiovascular exam: PRESENT: +S1, +S2 Neurological exam: PRESENT: alert Results Laboratory Results: 04/08/18 05:45 04/08/18 05:45 04/08/18 04/08/18 05:45 05:45 WBC 7.5 RBC 3.73 Hgb 9.9 L Hct 29.2 L MCV 78 L MCH 26.6 L MCHC 34.0 RDW 18.4 H Plt Count 333 Seg Neutrophils % 60.8 Lymphocytes % 30.1 Monocytes % 6.7 Eosinophils % 2.1 Basophils % 0.3 Absolute Neutrophils 4.6 Absolute Lymphocytes 2.3 Absolute Monocytes 0.5 Absolute Eosinophils 0.2 Absolute Basophils 0.0 Sodium 142.4 Potassium 3.4 L Chloride 106 Carbon Dioxide 23 Anion Gap 13 BUN 4 L Creatinine 0.83 Est GFR ( Amer) > 60 Est GFR (Non-Af Amer) > 60 Glucose 92 Calcium 7.9 L Total Bilirubin 0.1 L AST 15 ALT 17 Alkaline Phosphatase 95 Total Protein 5.5 L Albumin 3.1 L Impressions: Chest X-Ray 04/02/18 00:00 IMPRESSION: NO ACUTE RADIOGRAPHIC FINDING IN THE CHEST. Assessment & Plan - Diagnosis (1) Recurrent Clostridium difficile diarrhea Is this a current diagnosis for this admission?: Yes (2) Dehydration Is this a current diagnosis for this admission?: Yes
[2018-04-08] MEDS: ATORVASTATIN CALCIUM 40 MG TABLET PO SCH (23:15)
[2018-04-09] MEDS: HYDROMORPHONE HCL INJ/PF 2 MG/ML AMPULE IV PRN ×5 (02:50→23:28)
[2018-04-09] MEDS: PROMETHAZINE HCL INJ 25 MG/1 ML VIAL IV PRN ×4 (02:50→23:28)
[2018-04-09] MEDS: LANSOPRAZOLE 30 MG TAB.RAP.DR PO SCH ×2 (05:34→18:36)
[2018-04-09] MEDS: GABAPENTIN 300 MG CAPSULE PO SCH ×3 (05:34→23:27)
[2018-04-09] MEDS: VANCOMYCIN HCL INJ 500 MG VIAL PO SCH ×4 (05:34→23:28)
[2018-04-09] MEDS: NORMAL SALINE 1000 ML 1,000 ML IV PRN ×2 (05:36→18:44)
[2018-04-09] MEDS: CLOPIDOGREL BISULFATE 75 MG TABLET PO SCH (09:21)
[2018-04-09] MEDS: SUCRALFATE 1 GM TABLET PO SCH ×4 (13:56→23:27)
[2018-04-09] MEDS: FUROSEMIDE 40 MG TABLET PO SCH (13:57)
[2018-04-09] MEDS: HYDROXYCHLOROQUINE SULFATE 200 MG TABLET PO SCH ×2 (13:58→19:26)
[2018-04-09] MEDS: SERTRALINE HCL 50 MG TABLET PO SCH (13:59)
--- NOTE | 2018-04-09 21:48 | PDOC PROGRESS REPORT ---
Subjective Progress Note for:: 04/09/18 Subjective:: She has persistent diarrhea, from recurrent C. difficile colitis due to antibiotic usage for recurrent UTI Reason For Visit: PERSISTENT DIARRHEA Physical Exam Vital Signs: Temp Pulse Resp BP Pulse Ox 98.6 F 88 14 152/70 H 98 04/09/18 19:42 04/09/18 19:42 04/09/18 19:42 04/09/18 19:42 04/09/18 19:42 Intake & Output 04/08/18 04/09/18 04/10/18 06:59 06:59 06:59 Intake Total 3125 4640 1473 Output Total 1425 3800 1100 Balance 1700 840 373 Weight 93.2 kg 92.8 kg General appearance: PRESENT: no acute distress Eye exam: PRESENT: PERRLA Respiratory exam: PRESENT: clear to auscultation martínez Cardiovascular exam: PRESENT: +S1, +S2 GI/Abdominal exam: PRESENT: soft Neurological exam: PRESENT: alert Results Laboratory Results: 04/08/18 05:45 04/08/18 05:45 Impressions: Chest X-Ray 04/02/18 00:00 IMPRESSION: NO ACUTE RADIOGRAPHIC FINDING IN THE CHEST. Assessment & Plan - Diagnosis (1) Recurrent Clostridium difficile diarrhea Is this a current diagnosis for this admission?: Yes (2) Dehydration Is this a current diagnosis for this admission?: Yes
[2018-04-09] MEDS: ATORVASTATIN CALCIUM 40 MG TABLET PO SCH (23:27)
[2018-04-10] MEDS: VANCOMYCIN HCL INJ 500 MG VIAL PO SCH ×3 (06:02→17:21)
[2018-04-10] MEDS: PROMETHAZINE HCL INJ 25 MG/1 ML VIAL IV PRN ×3 (06:03→18:27)
[2018-04-10] MEDS: GABAPENTIN 300 MG CAPSULE PO SCH ×3 (06:03→21:57)
[2018-04-10] MEDS: HYDROMORPHONE HCL INJ/PF 2 MG/ML AMPULE IV PRN ×5 (06:03→22:31)
[2018-04-10] MEDS: LANSOPRAZOLE 30 MG TAB.RAP.DR PO SCH ×2 (06:03→17:21)
[2018-04-10] MEDS: FUROSEMIDE 40 MG TABLET PO SCH (10:19)
[2018-04-10] MEDS: HYDROXYCHLOROQUINE SULFATE 200 MG TABLET PO SCH ×2 (10:19→17:21)
[2018-04-10] MEDS: SUCRALFATE 1 GM TABLET PO SCH ×4 (10:20→21:58)
[2018-04-10] MEDS: CLOPIDOGREL BISULFATE 75 MG TABLET PO SCH (10:20)
[2018-04-10] MEDS: SERTRALINE HCL 50 MG TABLET PO SCH (10:20)
[2018-04-10] MEDS: NORMAL SALINE 1000 ML 1,000 ML IV PRN (17:23)
--- NOTE | 2018-04-10 17:38 | PDOC PROGRESS REPORT ---
Subjective Progress Note for:: 04/10/18 Subjective:: Patient continues to require IV fluid therapy, she still have diarrhea Reason For Visit: PERSISTENT DIARRHEA Physical Exam Vital Signs: Temp Pulse Resp BP Pulse Ox 98.1 F 70 18 131/78 H 100 04/10/18 16:00 04/10/18 16:00 04/10/18 16:00 04/10/18 16:00 04/10/18 16:00 Intake & Output 04/09/18 04/10/18 04/11/18 06:59 06:59 06:59 Intake Total 4640 1828 1000 Output Total 3800 1100 Balance 518 500 6996 Weight 92.8 kg 92.5 kg General appearance: PRESENT: no acute distress Eye exam: PRESENT: PERRLA Respiratory exam: PRESENT: clear to auscultation martínez Cardiovascular exam: PRESENT: +S1, +S2 GI/Abdominal exam: PRESENT: soft Neurological exam: PRESENT: alert Results Laboratory Results: 04/08/18 05:45 04/08/18 05:45 Impressions: Chest X-Ray 04/02/18 00:00 IMPRESSION: NO ACUTE RADIOGRAPHIC FINDING IN THE CHEST. Assessment & Plan - Diagnosis (1) Recurrent Clostridium difficile diarrhea Is this a current diagnosis for this admission?: Yes (2) Dehydration Is this a current diagnosis for this admission?: Yes (3) Diarrhea Qualifiers: Diarrhea type: unspecified type Qualified Code(s): R19.7 - Diarrhea, unspecified Is this a current diagnosis for this admission?: Yes
[2018-04-10] MEDS: ATORVASTATIN CALCIUM 40 MG TABLET PO SCH (21:58)
[2018-04-11] MEDS: PROMETHAZINE HCL INJ 25 MG/1 ML VIAL IV PRN ×4 (00:46→20:11)
[2018-04-11] MEDS: VANCOMYCIN HCL INJ 500 MG VIAL PO SCH ×5 (00:49→23:42)
[2018-04-11] MEDS: LANSOPRAZOLE 30 MG TAB.RAP.DR PO SCH ×2 (05:53→17:37)
[2018-04-11] MEDS: GABAPENTIN 300 MG CAPSULE PO SCH ×3 (05:53→23:42)
[2018-04-11] MEDS: HYDROMORPHONE HCL INJ/PF 2 MG/ML AMPULE IV PRN ×4 (06:05→20:10)
[2018-04-11] MEDS: NORMAL SALINE 1000 ML 1,000 ML IV PRN ×3 (06:10→23:41)
[2018-04-11] MEDS: SUCRALFATE 1 GM TABLET PO SCH ×4 (09:16→23:41)
[2018-04-11] MEDS: SERTRALINE HCL 50 MG TABLET PO SCH (09:16)
[2018-04-11] MEDS: FUROSEMIDE 40 MG TABLET PO SCH (09:16)
[2018-04-11] MEDS: CLOPIDOGREL BISULFATE 75 MG TABLET PO SCH (09:16)
[2018-04-11] MEDS: HYDROXYCHLOROQUINE SULFATE 200 MG TABLET PO SCH ×2 (09:16→17:37)
[2018-04-11] MEDS: POTASSIUM CHLORIDE 10 MEQ CAPSULE.ER PO SCH ×2 (18:58→23:42)
[2018-04-11] MEDS: OXYCODONE HCL IR 5 MG TABLET PO PRN (18:59)
--- NOTE | 2018-04-11 21:05 | PDOC PROGRESS REPORT ---
Subjective Progress Note for:: 04/11/18 Subjective:: She has low potassium today Reason For Visit: PERSISTENT DIARRHEA Physical Exam Vital Signs: Temp Pulse Resp BP Pulse Ox 97.9 F 78 16 147/64 H 98 04/11/18 15:59 04/11/18 15:59 04/11/18 15:59 04/11/18 15:59 04/11/18 15:59 Intake & Output 04/10/18 04/11/18 04/12/18 06:59 06:59 06:59 Intake Total 1828 3900 2541 Output Total 1100 1000 Balance 728 2900 2541 Weight 92.5 kg 92 kg General appearance: PRESENT: no acute distress Eye exam: PRESENT: PERRLA Respiratory exam: PRESENT: clear to auscultation martínez Cardiovascular exam: PRESENT: +S1, +S2 Results Laboratory Results: 04/08/18 05:45 04/08/18 05:45 Impressions: Chest X-Ray 04/02/18 00:00 IMPRESSION: NO ACUTE RADIOGRAPHIC FINDING IN THE CHEST. Assessment & Plan - Diagnosis (1) Recurrent Clostridium difficile diarrhea Is this a current diagnosis for this admission?: Yes (2) Dehydration Is this a current diagnosis for this admission?: Yes (3) Diarrhea Qualifiers: Diarrhea type: unspecified type Qualified Code(s): R19.7 - Diarrhea, unspecified Is this a current diagnosis for this admission?: Yes
[2018-04-11] MEDS: ATORVASTATIN CALCIUM 40 MG TABLET PO SCH (23:42)
[2018-04-12] MEDS: HYDROMORPHONE HCL INJ/PF 2 MG/ML AMPULE IV PRN ×6 (00:05→23:39)
[2018-04-12] MEDS: LANSOPRAZOLE 30 MG TAB.RAP.DR PO SCH ×2 (06:15→17:12)
[2018-04-12] MEDS: GABAPENTIN 300 MG CAPSULE PO SCH ×3 (06:15→22:20)
[2018-04-12] MEDS: VANCOMYCIN HCL INJ 500 MG VIAL PO SCH ×4 (06:15→23:39)
[2018-04-12] MEDS: PROMETHAZINE HCL INJ 25 MG/1 ML VIAL IV PRN ×3 (06:15→18:19)
[2018-04-12] MEDS: SUCRALFATE 1 GM TABLET PO SCH ×4 (07:37→22:20)
[2018-04-12] MEDS: FUROSEMIDE 40 MG TABLET PO SCH (11:07)
[2018-04-12] MEDS: CLOPIDOGREL BISULFATE 75 MG TABLET PO SCH (11:07)
[2018-04-12] MEDS: SERTRALINE HCL 50 MG TABLET PO SCH (11:07)
[2018-04-12] MEDS: HYDROXYCHLOROQUINE SULFATE 200 MG TABLET PO SCH ×2 (11:07→17:12)
[2018-04-12] MEDS: NORMAL SALINE 1000 ML 1,000 ML IV PRN ×2 (11:15→22:20)
--- NOTE | 2018-04-12 20:30 | PDOC PROGRESS REPORT ---
Subjective Progress Note for:: 04/12/18 Subjective:: Patient was seen by the bedside she has no new complaints other than diarrhea Reason For Visit: PERSISTENT DIARRHEA Physical Exam Vital Signs: Temp Pulse Resp BP Pulse Ox 98.6 F 81 18 145/65 H 99 04/12/18 16:48 04/12/18 16:48 04/12/18 16:48 04/12/18 16:48 04/12/18 16:48 Intake & Output 04/11/18 04/12/18 04/13/18 06:59 06:59 06:59 Intake Total 3900 3790 1000 Output Total 1000 Balance 2900 3790 1000 Weight 92 kg General appearance: PRESENT: no acute distress Eye exam: PRESENT: PERRLA Respiratory exam: PRESENT: clear to auscultation martínez Cardiovascular exam: PRESENT: +S1, +S2 GI/Abdominal exam: PRESENT: soft Neurological exam: PRESENT: alert Results Laboratory Results: 04/08/18 05:45 04/08/18 05:45 Impressions: Chest X-Ray 04/02/18 00:00 IMPRESSION: NO ACUTE RADIOGRAPHIC FINDING IN THE CHEST. Assessment & Plan - Diagnosis (1) Recurrent Clostridium difficile diarrhea Is this a current diagnosis for this admission?: Yes (2) Dehydration Is this a current diagnosis for this admission?: Yes (3) Diarrhea Qualifiers: Diarrhea type: unspecified type Qualified Code(s): R19.7 - Diarrhea, unspecified Is this a current diagnosis for this admission?: Yes
[2018-04-12] MEDS: ATORVASTATIN CALCIUM 40 MG TABLET PO SCH (22:20)
[2018-04-13] MEDS: PROMETHAZINE HCL INJ 25 MG/1 ML VIAL IV PRN ×4 (02:07→20:07)
[2018-04-13] MEDS: HYDROMORPHONE HCL INJ/PF 2 MG/ML AMPULE IV PRN ×5 (04:04→22:14)
[2018-04-13] MEDS: LANSOPRAZOLE 30 MG TAB.RAP.DR PO SCH ×2 (06:31→18:10)
[2018-04-13] MEDS: GABAPENTIN 300 MG CAPSULE PO SCH ×3 (06:31→22:14)
[2018-04-13] MEDS: VANCOMYCIN HCL INJ 500 MG VIAL PO SCH ×4 (06:32→23:25)
[2018-04-13] MEDS: SUCRALFATE 1 GM TABLET PO SCH ×4 (07:47→22:14)
[2018-04-13] MEDS: CLOPIDOGREL BISULFATE 75 MG TABLET PO SCH (09:22)
[2018-04-13] MEDS: HYDROXYCHLOROQUINE SULFATE 200 MG TABLET PO SCH ×2 (09:22→18:08)
[2018-04-13] MEDS: SERTRALINE HCL 50 MG TABLET PO SCH (09:22)
[2018-04-13] MEDS: FUROSEMIDE 40 MG TABLET PO SCH (09:22)
[2018-04-13] MEDS: NORMAL SALINE 1000 ML 1,000 ML IV PRN ×2 (09:24→19:28)
--- NOTE | 2018-04-13 16:37 | PDOC PROGRESS REPORT ---
Subjective Progress Note for:: 04/13/18 Subjective:: She has persistent diarrhea, despite this many days in the hospital, she continues to require IV fluid she has a lot of nausea and vomiting Reason For Visit: PERSISTENT DIARRHEA Physical Exam Vital Signs: Temp Pulse Resp BP Pulse Ox 98.2 F 80 15 140/68 H 100 04/13/18 16:00 04/13/18 16:00 04/13/18 16:00 04/13/18 16:00 04/13/18 16:00 Intake & Output 04/12/18 04/13/18 04/14/18 06:59 06:59 06:59 Intake Total 3790 2600 1000 Balance 3790 2600 1000 Weight 86.8 kg General appearance: PRESENT: no acute distress Eye exam: PRESENT: PERRLA Respiratory exam: PRESENT: clear to auscultation martínez Cardiovascular exam: PRESENT: +S1, +S2 GI/Abdominal exam: PRESENT: soft Results Laboratory Results: 04/08/18 05:45 04/08/18 05:45 Impressions: Chest X-Ray 04/02/18 00:00 IMPRESSION: NO ACUTE RADIOGRAPHIC FINDING IN THE CHEST. Assessment & Plan - Diagnosis (1) Recurrent Clostridium difficile diarrhea Is this a current diagnosis for this admission?: Yes (2) Dehydration Is this a current diagnosis for this admission?: Yes (3) Diarrhea Qualifiers: Diarrhea type: unspecified type Qualified Code(s): R19.7 - Diarrhea, unspecified Is this a current diagnosis for this admission?: Yes
[2018-04-13] MEDS: ATORVASTATIN CALCIUM 40 MG TABLET PO SCH (22:14)
[2018-04-14] MEDS: PROMETHAZINE HCL INJ 25 MG/1 ML VIAL IV PRN ×3 (03:57→22:38)
[2018-04-14] MEDS: HYDROMORPHONE HCL INJ/PF 2 MG/ML AMPULE IV PRN ×5 (03:57→20:16)
[2018-04-14] MEDS: GABAPENTIN 300 MG CAPSULE PO SCH ×3 (06:42→22:37)
[2018-04-14] MEDS: VANCOMYCIN HCL INJ 500 MG VIAL PO SCH (06:42)
[2018-04-14] MEDS: NORMAL SALINE 1000 ML 1,000 ML IV PRN ×2 (06:43→16:40)
[2018-04-14] MEDS: LANSOPRAZOLE 30 MG TAB.RAP.DR PO SCH ×2 (06:44→17:09)
[2018-04-14] MEDS: SUCRALFATE 1 GM TABLET PO SCH ×4 (07:29→22:37)
[2018-04-14] MEDS: FUROSEMIDE 40 MG TABLET PO SCH (09:58)
[2018-04-14] MEDS: CLOPIDOGREL BISULFATE 75 MG TABLET PO SCH (09:58)
[2018-04-14] MEDS: HYDROXYCHLOROQUINE SULFATE 200 MG TABLET PO SCH ×2 (09:59→17:09)
[2018-04-14] MEDS: SERTRALINE HCL 50 MG TABLET PO SCH (09:59)
--- NOTE | 2018-04-14 13:55 | PDOC PROGRESS REPORT ---
Subjective Progress Note for:: 04/14/18 Subjective:: Patient with persistent diarrhea Reason For Visit: PERSISTENT DIARRHEA Physical Exam Vital Signs: Temp Pulse Resp BP Pulse Ox 98.0 F 79 17 114/54 L 95 04/14/18 11:56 04/14/18 11:56 04/14/18 11:56 04/14/18 11:56 04/14/18 11:56 Intake & Output 04/13/18 04/14/18 04/15/18 06:59 06:59 06:59 Intake Total 2600 3360 Balance 2600 3360 Weight 86.8 kg 86.4 kg General appearance: PRESENT: no acute distress Eye exam: PRESENT: PERRLA Respiratory exam: PRESENT: clear to auscultation martínez Cardiovascular exam: PRESENT: +S1, +S2 GI/Abdominal exam: PRESENT: soft Results Laboratory Results: 04/08/18 05:45 04/08/18 05:45 Impressions: Chest X-Ray 04/02/18 00:00 IMPRESSION: NO ACUTE RADIOGRAPHIC FINDING IN THE CHEST. Assessment & Plan - Diagnosis (1) Recurrent Clostridium difficile diarrhea Is this a current diagnosis for this admission?: Yes (2) Dehydration Is this a current diagnosis for this admission?: Yes
[2018-04-14] MEDS: ATORVASTATIN CALCIUM 40 MG TABLET PO SCH (22:37)
[2018-04-15] MEDS: HYDROMORPHONE HCL INJ/PF 2 MG/ML AMPULE IV PRN ×5 (00:16→21:05)
[2018-04-15] MEDS: NORMAL SALINE 1000 ML 1,000 ML IV PRN ×2 (03:12→11:45)
[2018-04-15] MEDS: PROMETHAZINE HCL INJ 25 MG/1 ML VIAL IV PRN ×3 (05:39→17:48)
[2018-04-15] MEDS: GABAPENTIN 300 MG CAPSULE PO SCH ×3 (05:41→21:04)
[2018-04-15] MEDS: LANSOPRAZOLE 30 MG TAB.RAP.DR PO SCH ×2 (05:53→17:50)
[2018-04-15] MEDS: SERTRALINE HCL 50 MG TABLET PO SCH (11:43)
[2018-04-15] MEDS: SUCRALFATE 1 GM TABLET PO SCH ×4 (11:43→21:05)
[2018-04-15] MEDS: CLOPIDOGREL BISULFATE 75 MG TABLET PO SCH (11:43)
[2018-04-15] MEDS: FUROSEMIDE 40 MG TABLET PO SCH (11:44)
[2018-04-15] MEDS: HYDROXYCHLOROQUINE SULFATE 200 MG TABLET PO SCH ×2 (11:44→17:50)
[2018-04-15] MEDS: ATORVASTATIN CALCIUM 40 MG TABLET PO SCH (21:05)
--- NOTE | 2018-04-15 22:10 | PDOC PROGRESS REPORT ---
Subjective Progress Note for:: 04/15/18 Subjective:: She was seen by the bedside Reason For Visit: PERSISTENT DIARRHEA Physical Exam Vital Signs: Temp Pulse Resp BP Pulse Ox 98.1 F 85 18 137/61 H 97 04/15/18 14:54 04/15/18 14:54 04/15/18 14:54 04/15/18 14:54 04/15/18 14:54 Intake & Output 04/14/18 04/15/18 04/16/18 06:59 06:59 06:59 Intake Total 3360 3501 1121 Balance 3360 3501 1121 Weight 86.4 kg 86.7 kg General appearance: PRESENT: no acute distress, well-developed, well-nourished Head exam: PRESENT: atraumatic, normocephalic Eye exam: PRESENT: conjunctiva pink, EOMI, PERRLA Ear exam: PRESENT: normal external ear exam Mouth exam: PRESENT: moist, tongue midline Neck exam: PRESENT: full ROM Respiratory exam: PRESENT: clear to auscultation martínez Cardiovascular exam: PRESENT: RRR, +S1, +S2 Pulses: PRESENT: normal dorsalis pedis pul, +2 pedal pulses bilateral Vascular exam: PRESENT: normal capillary refill GI/Abdominal exam: PRESENT: normal bowel sounds, soft Rectal exam: PRESENT: deferred Neurological exam: PRESENT: alert, awake, oriented to person, oriented to place , oriented to time, oriented to situation, CN II-XII grossly intact Psychiatric exam: PRESENT: appropriate affect, normal mood Skin exam: PRESENT: dry, intact, warm Results Laboratory Results: 04/08/18 05:45 04/08/18 05:45 Impressions: Chest X-Ray 04/02/18 00:00 IMPRESSION: NO ACUTE RADIOGRAPHIC FINDING IN THE CHEST. Assessment & Plan - Diagnosis (1) Recurrent Clostridium difficile diarrhea Is this a current diagnosis for this admission?: Yes (2) Dehydration Is this a current diagnosis for this admission?: Yes
[2018-04-16] MEDS: NORMAL SALINE 1000 ML 1,000 ML IV PRN ×2 (04:02→14:05)
[2018-04-16] MEDS: LANSOPRAZOLE 30 MG TAB.RAP.DR PO SCH ×2 (06:46→17:46)
[2018-04-16] MEDS: GABAPENTIN 300 MG CAPSULE PO SCH ×3 (06:46→22:25)
[2018-04-16] MEDS: SUCRALFATE 1 GM TABLET PO SCH ×4 (08:02→22:25)
[2018-04-16] MEDS: PROMETHAZINE HCL INJ 25 MG/1 ML VIAL IV PRN ×2 (12:12→18:24)
[2018-04-16] MEDS: SERTRALINE HCL 50 MG TABLET PO SCH (14:06)
[2018-04-16] MEDS: FUROSEMIDE 40 MG TABLET PO SCH (14:06)
[2018-04-16] MEDS: CLOPIDOGREL BISULFATE 75 MG TABLET PO SCH (14:06)
[2018-04-16] MEDS: HYDROXYCHLOROQUINE SULFATE 200 MG TABLET PO SCH ×2 (14:07→18:29)
[2018-04-16] MEDS: HYDROMORPHONE HCL INJ/PF 2 MG/ML AMPULE IV PRN (17:40)
[2018-04-16] MEDS: OXYCODONE-ACETAMINOPHEN 5-325 MG TABLET PO PRN (20:53)
[2018-04-16] MEDS: PROMETHAZINE HCL 25 MG TABLET PO PRN (20:53)
--- NOTE | 2018-04-16 21:27 | PDOC PROGRESS REPORT ---
Subjective Progress Note for:: 04/16/18 Subjective:: She was seen by the bedside,Still have diarrhea Reason For Visit: PERSISTENT DIARRHEA Physical Exam Vital Signs: Temp Pulse Resp BP Pulse Ox 98.1 F 87 18 120/56 L 95 04/16/18 14:53 04/16/18 14:53 04/16/18 14:53 04/16/18 14:53 04/16/18 14:53 Intake & Output 04/15/18 04/16/18 04/17/18 06:59 06:59 06:59 Intake Total 3501 2121 1000 Output Total 500 Balance 3501 1621 1000 Weight 86.7 kg 86 kg Eye exam: PRESENT: PERRLA Respiratory exam: PRESENT: clear to auscultation martínez Cardiovascular exam: PRESENT: +S1, +S2 GI/Abdominal exam: PRESENT: soft Results Laboratory Results: 04/08/18 05:45 04/08/18 05:45 Impressions: Chest X-Ray 04/02/18 00:00 IMPRESSION: NO ACUTE RADIOGRAPHIC FINDING IN THE CHEST. Assessment & Plan - Diagnosis (1) Recurrent Clostridium difficile diarrhea Is this a current diagnosis for this admission?: Yes (2) Dehydration Is this a current diagnosis for this admission?: Yes
[2018-04-16] MEDS: ATORVASTATIN CALCIUM 40 MG TABLET PO SCH (22:25)
[2018-04-17] MEDS: PROMETHAZINE HCL INJ 25 MG/1 ML VIAL IV PRN ×3 (02:32→17:42)
[2018-04-17] MEDS: HYDROMORPHONE HCL INJ/PF 2 MG/ML AMPULE IV PRN ×5 (02:32→19:43)
[2018-04-17] MEDS: GABAPENTIN 300 MG CAPSULE PO SCH ×2 (06:44→13:02)
[2018-04-17] MEDS: LANSOPRAZOLE 30 MG TAB.RAP.DR PO SCH ×2 (06:45→17:42)
[2018-04-17] MEDS: SUCRALFATE 1 GM TABLET PO SCH ×3 (08:32→17:42)
[2018-04-17] MEDS: HYDROXYCHLOROQUINE SULFATE 200 MG TABLET PO SCH ×2 (10:32→17:42)
[2018-04-17] MEDS: SERTRALINE HCL 50 MG TABLET PO SCH (10:32)
[2018-04-17] MEDS: FUROSEMIDE 40 MG TABLET PO SCH (10:32)
[2018-04-17] MEDS: CLOPIDOGREL BISULFATE 75 MG TABLET PO SCH (10:34)
[2018-04-17] MEDS: NORMAL SALINE 1000 ML 1,000 ML IV PRN (10:44)
--- NOTE | 2018-04-17 19:52 | PDOC PROGRESS REPORT ---
Subjective Progress Note for:: 04/17/18 Subjective:: She was seen by the bedside Reason For Visit: PERSISTENT DIARRHEA Physical Exam Vital Signs: Temp Pulse Resp BP Pulse Ox 98.3 F 78 16 107/60 96 04/17/18 15:43 04/17/18 15:43 04/17/18 15:43 04/17/18 15:43 04/17/18 15:43 Intake & Output 04/16/18 04/17/18 04/18/18 06:59 06:59 06:59 Intake Total 2121 2365 Output Total 500 1 Balance 1621 2364 Weight 86 kg 85.3 kg General appearance: PRESENT: no acute distress Eye exam: PRESENT: PERRLA Respiratory exam: PRESENT: clear to auscultation martínez Cardiovascular exam: PRESENT: +S1, +S2 GI/Abdominal exam: PRESENT: soft Neurological exam: PRESENT: alert Results Laboratory Results: 04/08/18 05:45 04/08/18 05:45 Impressions: Chest X-Ray 04/02/18 00:00 IMPRESSION: NO ACUTE RADIOGRAPHIC FINDING IN THE CHEST. Assessment & Plan - Diagnosis (1) Recurrent Clostridium difficile diarrhea Is this a current diagnosis for this admission?: Yes (2) Dehydration Is this a current diagnosis for this admission?: Yes
[2018-04-18] MEDS: PROMETHAZINE HCL INJ 25 MG/1 ML VIAL IV PRN ×4 (00:12→20:07)
[2018-04-18] MEDS: HYDROMORPHONE HCL INJ/PF 2 MG/ML AMPULE IV PRN ×6 (00:14→23:08)
[2018-04-18] MEDS: SUCRALFATE 1 GM TABLET PO SCH ×5 (00:15→21:11)
[2018-04-18] MEDS: ATORVASTATIN CALCIUM 40 MG TABLET PO SCH ×2 (00:15→21:11)
[2018-04-18] MEDS: GABAPENTIN 300 MG CAPSULE PO SCH ×4 (00:27→21:11)
[2018-04-18] MEDS: LANSOPRAZOLE 30 MG TAB.RAP.DR PO SCH ×2 (05:14→17:15)
[2018-04-18] MEDS: CLOPIDOGREL BISULFATE 75 MG TABLET PO SCH (09:44)
[2018-04-18] MEDS: SERTRALINE HCL 50 MG TABLET PO SCH (09:44)
[2018-04-18] MEDS: HYDROXYCHLOROQUINE SULFATE 200 MG TABLET PO SCH ×2 (09:44→17:15)
[2018-04-18] MEDS: FUROSEMIDE 40 MG TABLET PO SCH (09:53)
[2018-04-18] MEDS: NORMAL SALINE 1000 ML 1,000 ML IV PRN (18:48)
--- NOTE | 2018-04-18 20:57 | PDOC DISCHARGE SUMMARY ---
General - Admit/Disc Date/PCP Admission Date/Primary Care Provider: 04/06/18 10:00 IAN MUÑOZ MD Discharge Date: 04/18/18 - Discharge Diagnosis (1) Recurrent Clostridium difficile diarrhea Is this a current diagnosis for this admission?: Yes (2) Dehydration Is this a current diagnosis for this admission?: Yes - Additional Information Resuscitation Status: Full Code Prescriptions: Fidaxomicin [Dificid] 200 mg PO BID #20 tablet Home Medications: Atorvastatin Calcium [Lipitor 40 mg Tablet] 40 mg PO QHS 03/18/18 Bethanechol Chloride [Urecholine 10 mg Tablet] 10 mg PO Q8 03/18/18 Clopidogrel Bisulfate [Plavix 75 mg Tablet] 75 mg PO DAILY 03/18/18 Gabapentin [Neurontin] 600 mg PO Q8 03/18/18 Hydrocodone Bitartrate [Zohydro ER] 40 mg PO Q12 03/18/18 Oxycodone HCl/Acetaminophen [Endocet 10-325 mg Tablet] 1 tab PO Q6HP PRN Promethazine HCl [Phenergan 25 mg Tablet] 25 mg PO Q6HP PRN 03/18/18 Pantoprazole Sodium [Protonix] 40 mg PO BID 04/02/18 Sertraline HCl [Zoloft 50 mg Tablet] 50 mg PO DAILY 04/02/18 Sucralfate [Carafate 1 gm Tablet] 1 gm PO QID 04/02/18 Hydroxychloroquine Sulfate [Plaquenil 200 mg Tablet] 200 mg PO BID 04/06/18 Fidaxomicin [Dificid] 200 mg PO BID #20 tablet 04/18/18 History of Present Illness History of Present Illness: VALENTE MUNOZ is a 62 year old female, She came to the office today for evaluation of diarrhea and vomiting, she was discharged from this hospital last week , she came to the office on Sunday of this week for evaluation of vomiting and diarrhea, she return the office again today on Sunday for the same problem she was admitted directly for evaluation, the stool was positive for C. difficile toxin Hospital Course Hospital Course: She has recurrent Clostridium difficile colitis she was treated with p.o. vancomycin IV fluid therapy and also morphine for pain management. She had protracted chronic diarrhea that was refractory to treatment hospital course was prolonged because of the persistent diarrhea ultimately controlled the last 2 days. She is being discharged home on Dificid, 200 mg 1 tablet twice daily for 10 days Physical Exam Vital Signs: Temp Pulse Resp BP Pulse Ox 98.5 F 72 20 146/79 H 100 04/18/18 20:00 04/18/18 20:00 04/18/18 20:00 04/18/18 20:00 04/18/18 20:00 Intake & Output 04/17/18 04/18/18 04/19/18 06:59 06:59 06:59 Intake Total 2365 1386 266 Output Total 1 Balance 2363 1386 266 Weight 85.3 kg 86.9 kg General appearance: PRESENT: no acute distress, well-developed, well-nourished Head exam: PRESENT: atraumatic, normocephalic Eye exam: PRESENT: conjunctiva pink, EOMI, PERRLA Ear exam: PRESENT: normal external ear exam Mouth exam: PRESENT: moist, tongue midline Neck exam: PRESENT: full ROM Respiratory exam: PRESENT: clear to auscultation martínez Cardiovascular exam: PRESENT: RRR, +S1, +S2 Pulses: PRESENT: normal dorsalis pedis pul, +2 pedal pulses bilateral Vascular exam: PRESENT: normal capillary refill GI/Abdominal exam: PRESENT: normal bowel sounds, soft Rectal exam: PRESENT: deferred Neurological exam: PRESENT: alert, awake, oriented to person, oriented to place , oriented to time, oriented to situation, CN II-XII grossly intact Psychiatric exam: PRESENT: appropriate affect, normal mood Skin exam: PRESENT: dry, intact, warm Results Laboratory Results: 04/08/18 05:45 04/08/18 05:45 Impressions: Chest X-Ray 04/02/18 00:00 IMPRESSION: NO ACUTE RADIOGRAPHIC FINDING IN THE CHEST. Qualifiers - * PATIENT BEING DISCHARGED WITH ANY OF THE FOLLOWING DIAGNOSIS: No
[2018-04-19] MEDS: PROMETHAZINE HCL INJ 25 MG/1 ML VIAL IV PRN ×2 (02:24→08:36)
[2018-04-19] MEDS: HYDROMORPHONE HCL INJ/PF 2 MG/ML AMPULE IV PRN ×2 (04:11→08:37)
[2018-04-19] MEDS: GABAPENTIN 300 MG CAPSULE PO SCH (06:28)
[2018-04-19] MEDS: LANSOPRAZOLE 30 MG TAB.RAP.DR PO SCH (06:28)
[2018-04-19] MEDS: SUCRALFATE 1 GM TABLET PO SCH (08:38)
[2018-04-19 08:52] VITALS: BP 147/74
== END 2018-04-19 10:14 | disposition home or self-care (01) | DRG 373 ==
LOC: ER 13:43 → EH 15:54 → 4N 04-03 00:18 → OBSVTOIN 04-06 10:00
PROVIDERS: ADMIT Internal Medicine; ATTEND Internal Medicine
DX: A04.71 Enterocolitis due to Clostridium difficile, recurrent (principal); E86.0 Dehydration; I50.9 Heart failure, unspecified; I25.10 Atherosclerotic heart disease of native coronary artery without angina pectoris; E78.00 Pure hypercholesterolemia, unspecified; I11.0 Hypertensive heart disease with heart failure; J44.9 Chronic obstructive pulmonary disease, unspecified; E03.9 Hypothyroidism, unspecified; K21.9 Gastro-esophageal reflux disease without esophagitis; K44.9 Diaphragmatic hernia without obstruction or gangrene; M32.9 Systemic lupus erythematosus, unspecified; F32.9 Major depressive disorder, single episode, unspecified; D64.9 Anemia, unspecified; I25.2 Old myocardial infarction; Z96.653 Presence of artificial knee joint, bilateral; Z96.649 Presence of unspecified artificial hip joint; Z79.899 Other long term (current) drug therapy; Z86.718 Personal history of other venous thrombosis and embolism; Z86.711 Personal history of pulmonary embolism; Z85.41 Personal history of malignant neoplasm of cervix uteri; Z85.43 Personal history of malignant neoplasm of ovary; Z86.14 Personal history of Methicillin resistant Staphylococcus aureus infection; Z87.898 Personal history of other specified conditions; Z87.891 Personal history of nicotine dependence; Z88.0 Allergy status to penicillin; Z88.8 Allergy status to other drugs, medicaments and biological substances; Z88.6 Allergy status to analgesic agent; Z88.3 Allergy status to other anti-infective agents; Z91.030 Bee allergy status; Z95.5 Presence of coronary angioplasty implant and graft; Z90.49 Acquired absence of other specified parts of digestive tract; Z90.710 Acquired absence of both cervix and uterus; Z80.9 Family history of malignant neoplasm, unspecified; Z79.02 Long term (current) use of antithrombotics/antiplatelets; Z82.61 Family history of arthritis; Z83.6 Family history of other diseases of the respiratory system; Z82.49 Family history of ischemic heart disease and other diseases of the circulatory system
CPT/HCPCS: 36415; 71046; 80053; 81001; 83690; 85025; 87493; G0378; J1170; J1200; J2405; J2550; J2765; J3370; J3490; J7030; J7120

== ENCOUNTER 2018-07-08 14:17 | Inpatient (IN) | payer MEDICARE, OTHER ==
[2018-07-08] MEDS: HYDROMORPHONE HCL INJ/PF 2 MG/ML AMPULE IV PRN ×2 (15:56→22:47)
[2018-07-08] MEDS: NORMAL SALINE 1000 ML 1,000 ML IV PRN (15:57)
[2018-07-08] MEDS: PROMETHAZINE HCL INJ 25 MG/1 ML VIAL IV PRN (15:57)
[2018-07-08 17:00] LABS: HEMATOCRIT 35.4 % (36.0-47.0); HEMOGLOBIN 12.1 g/dL (12.0-15.5); MEAN CORPUSCULAR HEMOGLOBIN 26.4 pg (27.0-33.4); MEAN CORPUSCULAR HGB CONC 34.3 g/dL (32.0-36.0); MEAN CORPUSCULAR VOLUME 77 fl (80-97); PLATELET COUNT 376 10^3/uL (150-450); RED BLOOD COUNT 4.59 10^6/uL (3.72-5.28); RED CELL DISTRIBUTION WIDTH 15.1 % (11.5-14.0); WHITE BLOOD COUNT 7.9 10^3/uL (4.0-10.5)
[2018-07-08 17:06] LABS: ALANINE AMINOTRANSFERASE 20 U/L (9-52); ALBUMIN 3.5 g/dL (3.5-5.0); ALKALINE PHOSPHATASE 124 U/L (38-126); ANION GAP 15 (5-19); ASPARTATE AMINO TRANSFERASE 21 U/L (14-36); BILIRUBIN,DIRECT 0.1 mg/dL (0.0-0.4); BILIRUBIN,TOTAL 0.3 mg/dL (0.2-1.3); BLOOD UREA NITROGEN 7 mg/dL (7-20); CALCIUM 9.1 mg/dL (8.4-10.2); CARBON DIOXIDE 22 mmol/L (22-30); CHLORIDE 101 mmol/L (98-107); GLUCOSE 84 mg/dL (75-110); POTASSIUM 4.3 mmol/L (3.6-5.0); SODIUM 137.9 mmol/L (137-145); TOTAL PROTEIN 6.2 g/dL (6.3-8.2)
[2018-07-08] MEDS ORDERED: ALTEPLASE INJ 2 MG VIAL (CATH CLEARANCE) INJ ONE (19:30)
[2018-07-08] MEDS ORDERED: (PENDING PHARMACY ID) (Zaleplon [Sonata] 10 MG) PO PRN (20:36)
[2018-07-08] MEDS ORDERED: CARVEDILOL PHOSPHATE 40 MG PO SCH (20:45)
--- NOTE | 2018-07-08 20:46 | PDOC H&P ---
History of Present Illness Admission Date/PCP: 07/08/18 14:17 IAN MUÑOZ MD History of Present Illness: VALENTE MUNOZ is a 62 year old female, She came to the office today for evaluation of continued diarrhea, urinary symptoms frequency ,urgency of urination She was in the office last week for evaluation of the same symptom, she was empirically treated for UTI and also C. difficile colitis because of her history of C. difficile colitis and recurrent UTI. She has chronic comorbid conditions with multiple hospital admission for various indications. 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 She has a history of VRE, ESBL urinary tract infection, history of allergy to penicillin, nitrofurantoin. Past Medical History Cardiac Medical History: Reports: Coronary Artery Disease, DVT, Myocardial Infarction, Hyperlipidema, Hypertension, Pulmonary Embolism Pulmonary Medical History: Reports: Bronchitis, Chronic Obstructive Pulmonary Disease (COPD) Endocrine Medical History: Reports: Hypothyroidism Malignancy Medical History: Reports: Cervical Cancer, Ovarian Cancer GI Medical History: Reports: Gastroesophageal Reflux Disease, Hiatal Hernia - Repaired Musculoskeltal Medical History: Reports: Arthritis - Lupus, Fibromyalgia - Lupus Psychiatric Medical History: Reports: Depression Hematology: Reports: Anemia - HX OF LOW NA AND K,LOW IRON WILL HAVE IRON TRANS FUSION 05/04. Infectious Medical History: Reports: Clostridium Difficile - Was negative in October2015. Not yet successfully collected stool, Methicillin-Resistant Staph Aureus, Vancomycin-Resistant Enterococci Past Surgical History Past Surgical History: Reports: Appendectomy, Cardiac Catheterization, Section, Cholecystectomy, Coronary Stent - 3 stents, Herniorrhaphy, Hysterectomy , Orthopedic Surgery - Right knee, bilateral knee replacements and hip replacement metal plate in, Tonsillectomy Social History Smoking Status: Never Smoker Frequency of Alcohol Use: Rare Hx Recreational Drug Use: No Drugs: None Hx Prescription Drug Abuse: No Family History Family History: Arthritis, COPD, Hyperlipidemia, Hypertension, Malignancy, Thyroid Disfunction Parental Family History Reviewed: Yes Children Family History Reviewed: Yes Sibling(s) Family History Reviewed.: Yes Medication/Allergy Home Medications: Aspirin [Aspirin 81 mg Chewable Tablet] 81 mg PO DAILY 07/08/18 Atorvastatin Calcium [Lipitor 40 mg Tablet] 40 mg PO DAILY 07/08/18 Carvedilol Phosphate [Coreg Cr] 40 mg PO DAILY 07/08/18 Cyclobenzaprine HCl [Flexeril 10 mg Tablet] 10 mg PO TIDP PRN 07/08/18 Dexlansoprazole [Dexilant 60 mg Capsule] 60 mg PO BID 07/08/18 Doxepin HCl [Silenor] 6 mg PO QHS 07/08/18 Furosemide [Lasix 40 mg Tablet] 40 mg PO DAILY 07/08/18 Hydrocodone Bitartrate [Zohydro ER] 40 mg PO Q12 07/08/18 Hydroxychloroquine Sulfate [Plaquenil 200 mg Tablet] 200 mg PO BID 07/08/18 Levothyroxine Sodium [Synthroid] 100 mcg PO Q6AM 07/08/18 Losartan Potassium [Cozaar 50 mg Tablet] 50 mg PO DAILY 07/08/18 [place]-3 Acid Ethyl Esters [Lovaza 1 gm Capsule] 2 gm PO BID 07/08/18 Pantoprazole Sodium [Protonix] 40 mg PO BID 07/08/18 Promethazine HCl [Phenergan 25 mg Tablet] 25 mg PO Q6HP PRN 07/08/18 Sertraline HCl [Zoloft 50 mg Tablet] 50 mg PO DAILY 07/08/18 Sucralfate [Carafate 1 gm Tablet] 1 gm PO QID 07/08/18 Zaleplon [Sonata] 10 mg PO HSP PRN 07/08/18 Allergies/Adverse Reactions: irbesartan [From Avapro] Allergy (Severe, Verified 04/02/18 18:38) swelling of face nitrofurantoin macrocrystalline [From Macrobid] Allergy (Severe, Verified 18:38) Generalized edema Penicillins Allergy (Severe, Verified 04/02/18 18:38) eyes swelled pregabalin [From Lyrica] Allergy (Severe, Verified 04/02/18 18:38) Equilibrium Issues venom-honey bee [bee venom (honey bee)] Allergy (Verified 04/02/18 18:38) Anaphylaxis Review of Systems Constitutional: ABSENT: chills, fever(s), headache(s), weight gain, weight loss Eyes: ABSENT: visual disturbances Ears: ABSENT: hearing changes Cardiovascular: ABSENT: chest pain, dyspnea on exertion, edema, orthropnea, palpitations Respiratory: ABSENT: cough, hemoptysis Gastrointestinal: PRESENT: diarrhea. ABSENT: abdominal pain, constipation, hematemesis, hematochezia, nausea, vomiting Genitourinary: PRESENT: difficulty urinating, dysuria. ABSENT: hematuria Musculoskeletal: ABSENT: joint swelling Integumentary: ABSENT: rash, wounds Neurological: ABSENT: abnormal gait, abnormal speech, confusion, dizziness, focal weakness, syncope Psychiatric: ABSENT: anxiety, depression, homidical ideation, suicidal ideation Endocrine: ABSENT: cold intolerance, heat intolerance, menstrual abnormalities, polydipsia, polyuria Hematologic/Lymphatic: ABSENT: easy bleeding, easy bruising, lymphadenopathy Physical Exam Vital Signs: Temp Pulse Resp BP Pulse Ox 98.2 F 85 16 122/73 100 07/08/18 15:00 07/08/18 15:00 07/08/18 15:00 07/08/18 15:00 07/08/18 15:00 Intake & Output 07/07/18 07/08/18 07/09/18 06:59 06:59 06:59 Weight 84.2 kg Head exam: PRESENT: atraumatic, normocephalic Eye exam: PRESENT: conjunctiva pink, EOMI, PERRLA Ear exam: PRESENT: normal external ear exam Mouth exam: PRESENT: moist, tongue midline Neck exam: PRESENT: full ROM Respiratory exam: PRESENT: clear to auscultation martínez Cardiovascular exam: PRESENT: RRR, +S1, +S2 Vascular exam: PRESENT: normal capillary refill GI/Abdominal exam: PRESENT: normal bowel sounds, soft Rectal exam: PRESENT: deferred Neurological exam: PRESENT: alert, awake, oriented to person, oriented to place , oriented to time, oriented to situation, CN II-XII grossly intact Psychiatric exam: PRESENT: appropriate affect, normal mood Skin exam: PRESENT: dry, intact, warm Results Laboratory Results: 07/08/18 16:10 07/08/18 16:10 07/08/18 07/08/18 16:10 16:10 WBC 7.9 RBC 4.59 Hgb 12.1 Hct 35.4 L MCV 77 L MCH 26.4 L MCHC 34.3 RDW 15.1 H Plt Count 376 Sodium 137.9 Potassium 4.3 Chloride 101 Carbon Dioxide 22 Anion Gap 15 BUN 7 Creatinine 1.14 Est GFR ( Amer) 58 L Est GFR (Non-Af Amer) 48 L Glucose 84 Calcium 9.1 Total Bilirubin 0.3 AST 21 ALT 20 Alkaline Phosphatase 124 Total Protein 6.2 L Albumin 3.5 Assessment & Plan - Diagnosis (1) Urinary tract infection Qualifiers: Urinary tract infection type: acute cystitis Hematuria presence: without hematuria Qualified Code(s): N30.00 - Acute cystitis without hematuria Is this a current diagnosis for this admission?: Yes Plan: Patient is admitted to the hospital start patient on IV Cipro (2) Failure of outpatient treatment Is this a current diagnosis for this admission?: Yes (3) Diarrhea Qualifiers: Diarrhea type: unspecified type Qualified Code(s): R19.7 - Diarrhea, unspecified Is this a current diagnosis for this admission?: Yes
[2018-07-08] MEDS: LOSARTAN POTASSIUM 50 MG TABLET PO SCH (22:49)
[2018-07-08] MEDS: ATORVASTATIN CALCIUM 40 MG TABLET PO SCH (22:49)
[2018-07-08] MEDS: SERTRALINE HCL 50 MG TABLET PO SCH (22:49)
[2018-07-08] MEDS: SUCRALFATE 1 GM TABLET PO SCH (22:49)
[2018-07-08] MEDS: LANSOPRAZOLE 30 MG TAB.RAP.DR PO SCH (22:49)
[2018-07-08] MEDS: CIPROFLOXACIN 400 MG/D5W RTU 400 MG/200 ML RTUPB IV SCH (22:53)
[2018-07-09] MEDS: HYDROXYCHLOROQUINE SULFATE 200 MG TABLET PO SCH ×3 (00:29→23:00)
[2018-07-09] MEDS: PROMETHAZINE HCL INJ 25 MG/1 ML VIAL IV PRN ×3 (00:29→16:13)
[2018-07-09 00:52] LABS: APPEARANCE,URINE SLIGHTLY-CLOUDY; BILIRUBIN,URINE NEGATIVE (NEGATIVE); COLOR,URINE YELLOW; GLUCOSE, URINE NEGATIVE (NEGATIVE); KETONES,URINE NEGATIVE (NEGATIVE); LEUKOCYTE ESTERASE,URINE LARGE (NEGATIVE); NITRITE,URINE POSITIVE (NEGATIVE); PROTEIN,URINE NEGATIVE (NEGATIVE); URINE SPECIFIC GRAVITY 1.005; UROBILINOGEN,URINE NEGATIVE mg/dL (<2.0)
[2018-07-09] MEDS: HYDROMORPHONE HCL INJ/PF 2 MG/ML AMPULE IV PRN ×4 (05:49→20:14)
[2018-07-09] MEDS: NORMAL SALINE 1000 ML 1,000 ML IV PRN (05:50)
[2018-07-09] MEDS: LANSOPRAZOLE 30 MG TAB.RAP.DR PO SCH ×2 (05:50→18:16)
[2018-07-09] MEDS: LEVOTHYROXINE SODIUM 0.1 MG TABLET PO SCH (05:50)
[2018-07-09] MEDS: SUCRALFATE 1 GM TABLET PO SCH ×4 (11:53→22:59)
[2018-07-09] MEDS: LOSARTAN POTASSIUM 50 MG TABLET PO SCH (11:53)
[2018-07-09] MEDS: CIPROFLOXACIN 400 MG/D5W RTU 400 MG/200 ML RTUPB IV SCH ×2 (11:53→22:59)
[2018-07-09] MEDS: SERTRALINE HCL 50 MG TABLET PO SCH (11:54)
--- NOTE | 2018-07-09 21:57 | PDOC PROGRESS REPORT ---
Subjective Progress Note for:: 07/09/18 Subjective:: Patient seen by the bedside, urine culture is growing gram-negative rods, patient empirically on IV antibiotic Cipro. She continues to require pain medication opioid Reason For Visit: PERSISTENT GASTROENTERITIS Physical Exam Vital Signs: Temp Pulse Resp BP Pulse Ox 98.9 F 85 17 118/50 L 97 07/09/18 19:30 07/09/18 19:30 07/09/18 19:30 07/09/18 19:30 07/09/18 19:30 Intake & Output 07/08/18 07/09/18 07/10/18 06:59 06:59 06:59 Intake Total 1200 656 Output Total 500 Balance 700 656 Weight 86.1 kg General appearance: PRESENT: no acute distress Eye exam: PRESENT: PERRLA Respiratory exam: PRESENT: clear to auscultation martínez Cardiovascular exam: PRESENT: +S1, +S2 GI/Abdominal exam: PRESENT: soft Neurological exam: PRESENT: alert Results Laboratory Results: 07/08/18 16:10 07/08/18 16:10 07/09/18 00:30 Urine Color YELLOW Urine Appearance SLIGHTLY-CLOUDY Urine pH 7.0 Ur Specific [place] 1.005 Urine Protein NEGATIVE Urine Glucose (UA) NEGATIVE Urine Ketones NEGATIVE Urine Blood NEGATIVE Urine Nitrite POSITIVE H Ur Leukocyte Esterase LARGE H Urine WBC (Auto) 39 Urine RBC (Auto) 1 Assessment & Plan - Diagnosis (1) Diarrhea Qualifiers: Diarrhea type: unspecified type Qualified Code(s): R19.7 - Diarrhea, unspecified Is this a current diagnosis for this admission?: Yes (2) Failure of outpatient treatment Is this a current diagnosis for this admission?: Yes (3) Urinary tract infection Qualifiers: Urinary tract infection type: acute cystitis Hematuria presence: without hematuria Qualified Code(s): N30.00 - Acute cystitis without hematuria Is this a current diagnosis for this admission?: Yes - Plan Summary Plan Summary: Continue treatment
[2018-07-09] MEDS: ATORVASTATIN CALCIUM 40 MG TABLET PO SCH (23:00)
[2018-07-10] MEDS: PROMETHAZINE HCL INJ 25 MG/1 ML VIAL IV PRN ×3 (00:46→18:03)
[2018-07-10] MEDS: HYDROMORPHONE HCL INJ/PF 2 MG/ML AMPULE IV PRN ×6 (00:46→22:38)
[2018-07-10] MEDS: NORMAL SALINE 1000 ML 1,000 ML IV PRN ×3 (04:59→22:42)
[2018-07-10] MEDS: LEVOTHYROXINE SODIUM 0.1 MG TABLET PO SCH (04:59)
[2018-07-10] MEDS: LANSOPRAZOLE 30 MG TAB.RAP.DR PO SCH ×2 (04:59→18:02)
[2018-07-10] MEDS: CIPROFLOXACIN 400 MG/D5W RTU 400 MG/200 ML RTUPB IV SCH ×2 (09:03→21:10)
[2018-07-10] MEDS: LOSARTAN POTASSIUM 50 MG TABLET PO SCH (09:04)
[2018-07-10] MEDS: SUCRALFATE 1 GM TABLET PO SCH ×4 (09:04→21:10)
[2018-07-10] MEDS: SERTRALINE HCL 50 MG TABLET PO SCH (09:05)
[2018-07-10] MEDS: HYDROXYCHLOROQUINE SULFATE 200 MG TABLET PO SCH ×2 (09:07→21:10)
[2018-07-10] MEDS ORDERED: CYCLOBENZAPRINE HCL 10 MG TABLET PO PRN (16:20)
[2018-07-10] MEDS ORDERED: HYDROCODONE BITARTRATE 40 MG PO SCH (16:30)
[2018-07-10] MEDS: ASPIRIN 81 MG TABLET, CHEWABLE PO SCH (18:01)
[2018-07-10] MEDS: FUROSEMIDE 40 MG TABLET PO SCH (18:01)
[2018-07-10] MEDS: OMEGA-3 ACID ETHYL ESTERS 1 GM CAPSULE PO SCH (18:02)
[2018-07-10] MEDS: ATORVASTATIN CALCIUM 40 MG TABLET PO SCH (21:10)
[2018-07-10] MEDS ORDERED: (PENDING PHARMACY ID) (Doxepin Hcl [Silenor] 6 MG) PO SCH (22:00)
[2018-07-11] MEDS: PROMETHAZINE HCL INJ 25 MG/1 ML VIAL IV PRN ×3 (02:52→19:48)
[2018-07-11] MEDS: HYDROMORPHONE HCL INJ/PF 2 MG/ML AMPULE IV PRN ×6 (02:52→23:48)
[2018-07-11] MEDS: LEVOTHYROXINE SODIUM 0.1 MG TABLET PO SCH (06:43)
[2018-07-11] MEDS: LANSOPRAZOLE 30 MG TAB.RAP.DR PO SCH ×2 (06:43→17:33)
[2018-07-11] MEDS: LOSARTAN POTASSIUM 50 MG TABLET PO SCH (09:06)
[2018-07-11] MEDS: HYDROXYCHLOROQUINE SULFATE 200 MG TABLET PO SCH ×2 (09:06→21:53)
[2018-07-11] MEDS: OMEGA-3 ACID ETHYL ESTERS 1 GM CAPSULE PO SCH ×2 (09:06→17:33)
[2018-07-11] MEDS: SERTRALINE HCL 50 MG TABLET PO SCH (09:06)
[2018-07-11] MEDS: LIDOCAINE 5% (700 MG) TRANSDERMAL ADH..PATCH TP SCH (09:06)
[2018-07-11] MEDS: FUROSEMIDE 40 MG TABLET PO SCH (09:06)
[2018-07-11] MEDS: ASPIRIN 81 MG TABLET, CHEWABLE PO SCH (09:06)
[2018-07-11] MEDS: CIPROFLOXACIN 400 MG/D5W RTU 400 MG/200 ML RTUPB IV SCH (09:07)
[2018-07-11] MEDS: CARVEDILOL 12.5 MG TABLET PO SCH ×2 (09:15→21:52)
[2018-07-11] MEDS: NORMAL SALINE 1000 ML 1,000 ML IV PRN ×2 (11:12→19:47)
[2018-07-11] MEDS: SUCRALFATE 1 GM TABLET PO SCH ×3 (11:12→21:52)
--- NOTE | 2018-07-11 20:25 | PDOC PROGRESS REPORT ---
Subjective Progress Note for:: 07/11/18 Subjective:: Patient seen by the bedside, had episode of vomiting today Reason For Visit: PERSISTENT GASTROENTERITIS Physical Exam Vital Signs: Temp Pulse Resp BP Pulse Ox 98.3 F 71 18 118/83 100 07/11/18 15:23 07/11/18 15:23 07/11/18 15:23 07/11/18 15:23 07/11/18 15:23 Intake & Output 07/10/18 07/11/18 07/12/18 06:59 06:59 06:59 Intake Total 2376 3183 2824 Output Total 3700 1400 Balance 2146 -268 1424 Weight 88.9 kg 89.1 kg General appearance: PRESENT: no acute distress Eye exam: PRESENT: PERRLA Respiratory exam: PRESENT: clear to auscultation martínez Cardiovascular exam: PRESENT: +S1, +S2 GI/Abdominal exam: PRESENT: soft Neurological exam: PRESENT: alert Results Laboratory Results: 07/08/18 16:10 07/08/18 16:10 Assessment & Plan - Diagnosis (1) Diarrhea Qualifiers: Diarrhea type: unspecified type Qualified Code(s): R19.7 - Diarrhea, unspecified Is this a current diagnosis for this admission?: Yes (2) Failure of outpatient treatment Is this a current diagnosis for this admission?: Yes (3) Urinary tract infection Qualifiers: Urinary tract infection type: acute cystitis Hematuria presence: without hematuria Qualified Code(s): N30.00 - Acute cystitis without hematuria Is this a current diagnosis for this admission?: Yes
[2018-07-11] MEDS: ATORVASTATIN CALCIUM 40 MG TABLET PO SCH (21:52)
[2018-07-11] MEDS: PHARMACY COMMUNICATION ORDER MC SCH (21:53)
[2018-07-11] MEDS: CIPROFLOXACIN HCL 500 MG TABLET PO SCH (21:53)
[2018-07-12] MEDS: NORMAL SALINE 1000 ML 1,000 ML IV PRN ×2 (04:38→19:38)
[2018-07-12] MEDS: PROMETHAZINE HCL INJ 25 MG/1 ML VIAL IV PRN ×3 (04:38→19:37)
[2018-07-12] MEDS: HYDROMORPHONE HCL INJ/PF 2 MG/ML AMPULE IV PRN ×5 (04:38→21:39)
[2018-07-12] MEDS: LANSOPRAZOLE 30 MG TAB.RAP.DR PO SCH ×2 (05:01→17:16)
[2018-07-12] MEDS: LEVOTHYROXINE SODIUM 0.1 MG TABLET PO SCH (05:01)
[2018-07-12] MEDS: SUCRALFATE 1 GM TABLET PO SCH ×4 (08:50→21:28)
[2018-07-12] MEDS: ASPIRIN 81 MG TABLET, CHEWABLE PO SCH (11:35)
[2018-07-12] MEDS: CIPROFLOXACIN HCL 500 MG TABLET PO SCH ×2 (11:35→21:27)
[2018-07-12] MEDS: CARVEDILOL 12.5 MG TABLET PO SCH ×2 (11:35→21:27)
[2018-07-12] MEDS: SERTRALINE HCL 50 MG TABLET PO SCH (11:36)
[2018-07-12] MEDS: LIDOCAINE 5% (700 MG) TRANSDERMAL ADH..PATCH TP SCH (11:36)
[2018-07-12] MEDS: OMEGA-3 ACID ETHYL ESTERS 1 GM CAPSULE PO SCH ×2 (11:36→17:16)
[2018-07-12] MEDS: LOSARTAN POTASSIUM 50 MG TABLET PO SCH (11:36)
[2018-07-12] MEDS: HYDROXYCHLOROQUINE SULFATE 200 MG TABLET PO SCH ×2 (11:37→21:28)
[2018-07-12] MEDS: FUROSEMIDE 40 MG TABLET PO SCH (11:37)
[2018-07-12] MEDS: GENTAMICIN SULFATE 0.1% OINTMENT 15 GM TP SCH ×2 (14:10→21:28)
--- NOTE | 2018-07-12 20:05 | PDOC PROGRESS REPORT ---
Subjective Progress Note for:: 07/12/18 Subjective:: The urine culture grew Morganella morganii sensitive to Cipro Reason For Visit: PERSISTENT GASTROENTERITIS Physical Exam Vital Signs: Temp Pulse Resp BP Pulse Ox 98.4 F 130 H 17 113/92 H 100 07/12/18 16:41 07/12/18 16:41 07/12/18 16:41 07/12/18 16:41 07/12/18 16:41 Intake & Output 07/11/18 07/12/18 07/13/18 06:59 06:59 06:59 Intake Total 3183 4111 1975 Output Total 3700 1900 1875 Balance -517 2211 100 Weight 89.1 kg 89.1 kg General appearance: PRESENT: no acute distress Eye exam: PRESENT: PERRLA Respiratory exam: PRESENT: clear to auscultation martínez Cardiovascular exam: PRESENT: +S1, +S2 GI/Abdominal exam: PRESENT: soft Neurological exam: PRESENT: alert, CN II-XII grossly intact Results Laboratory Results: 07/08/18 16:10 07/08/18 16:10 07/09/18 00:30 Clean Catch Midstream Urine Culture - Final Morganella Morganii Assessment & Plan - Diagnosis (1) Diarrhea Qualifiers: Diarrhea type: unspecified type Qualified Code(s): R19.7 - Diarrhea, unspecified Is this a current diagnosis for this admission?: Yes (2) Failure of outpatient treatment Is this a current diagnosis for this admission?: Yes (3) Urinary tract infection Qualifiers: Urinary tract infection type: acute cystitis Hematuria presence: without hematuria Qualified Code(s): N30.00 - Acute cystitis without hematuria Is this a current diagnosis for this admission?: Yes Plan: Continue with antibiotic
[2018-07-12] MEDS: ATORVASTATIN CALCIUM 40 MG TABLET PO SCH (21:28)
[2018-07-12] MEDS: PHARMACY COMMUNICATION ORDER MC SCH (21:29)
[2018-07-13] MEDS: PROMETHAZINE HCL INJ 25 MG/1 ML VIAL IV PRN ×4 (02:13→22:39)
[2018-07-13] MEDS: HYDROMORPHONE HCL INJ/PF 2 MG/ML AMPULE IV PRN ×5 (02:13→22:39)
[2018-07-13] MEDS: LANSOPRAZOLE 30 MG TAB.RAP.DR PO SCH ×2 (05:05→17:33)
[2018-07-13] MEDS: LEVOTHYROXINE SODIUM 0.1 MG TABLET PO SCH (05:05)
[2018-07-13] MEDS: GENTAMICIN SULFATE 0.1% OINTMENT 15 GM TP SCH ×3 (05:07→22:39)
[2018-07-13] MEDS: NORMAL SALINE 1000 ML 1,000 ML IV PRN ×2 (05:07→18:56)
[2018-07-13] MEDS: SUCRALFATE 1 GM TABLET PO SCH ×4 (08:21→22:38)
--- NOTE | 2018-07-13 10:43 | PDOC PROGRESS REPORT ---
Subjective Progress Note for:: 07/13/18 Subjective:: As usual for persistent nausea vomiting and chronic pain issues Patient is currently doing fair Denied any chest pain denied any shortness of the breath According to the nursing staff did not notice any diarrhea patient's p.o. intake with the medicine is fair Reason For Visit: PERSISTENT GASTROENTERITIS Physical Exam Vital Signs: Temp Pulse Resp BP Pulse Ox 98.1 F 69 13 131/75 H 100 07/13/18 08:00 07/13/18 08:00 07/13/18 08:00 07/13/18 08:00 07/13/18 08:00 Intake & Output 07/12/18 07/13/18 07/14/18 06:59 06:59 05:59 Intake Total 4111 3772 Output Total 1900 2675 Balance 2211 1097 Weight 89.1 kg 89.1 kg General appearance: PRESENT: no acute distress, well-developed, well-nourished Head exam: PRESENT: atraumatic, normocephalic Eye exam: PRESENT: conjunctiva pink, EOMI, PERRLA. ABSENT: scleral icterus Ear exam: PRESENT: normal external ear exam Mouth exam: PRESENT: moist, tongue midline Neck exam: PRESENT: full ROM. ABSENT: carotid bruit, JVD, lymphadenopathy, thyromegaly Respiratory exam: PRESENT: clear to auscultation martínez Cardiovascular exam: PRESENT: RRR. ABSENT: diastolic murmur, rubs, systolic murmur Pulses: PRESENT: normal dorsalis pedis pul, +2 pedal pulses bilateral Vascular exam: PRESENT: normal capillary refill GI/Abdominal exam: PRESENT: normal bowel sounds, soft. ABSENT: distended, guarding, mass, organolmegaly, rebound, tenderness Rectal exam: PRESENT: deferred Neurological exam: PRESENT: alert, awake, oriented to person, oriented to place , oriented to time, oriented to situation, CN II-XII grossly intact. ABSENT: motor sensory deficit Psychiatric exam: PRESENT: appropriate affect, normal mood. ABSENT: homicidal ideation, suicidal ideation Skin exam: PRESENT: dry, intact, warm. 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 failure anemia type: other bone marrow failure Qualified Code(s): D61.89 - Other specified aplastic anemias and other bone marrow failure syndromes Is this a current diagnosis for this admission?: Yes (4) Coronary artery disease Is this a current diagnosis for this admission?: Yes (5) Gastroenteritis Is this a current diagnosis for this admission?: Yes - Time Time Spent with patient: 15-24 minutes Medications reviewed and adjusted accordingly: Yes Anticipated discharge: Other Within: Other - Inpatient Certification Based on my medical assessment, after consideration of the patient's comorbidities, presenting symptoms, or acuity I expect that the services needed warrant INPATIENT care.: Yes I certify that my determination is in accordance with my understanding of Medicare's requirements for reasonable and necessary INPATIENT services [42 CFR 412.3e].: Yes Medical Necessity: Need Close Monitoring Due to Risk of Patient Decompensation, Need For IV Fluids Post Hospital Care: 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
[2018-07-13] MEDS: ASPIRIN 81 MG TABLET, CHEWABLE PO SCH (11:02)
[2018-07-13] MEDS: FUROSEMIDE 40 MG TABLET PO SCH (11:03)
[2018-07-13] MEDS: CARVEDILOL 12.5 MG TABLET PO SCH ×2 (11:03→22:38)
[2018-07-13] MEDS: LOSARTAN POTASSIUM 50 MG TABLET PO SCH (11:03)
[2018-07-13] MEDS: OMEGA-3 ACID ETHYL ESTERS 1 GM CAPSULE PO SCH ×2 (11:03→17:33)
[2018-07-13] MEDS: SERTRALINE HCL 50 MG TABLET PO SCH (11:03)
[2018-07-13] MEDS: LIDOCAINE 5% (700 MG) TRANSDERMAL ADH..PATCH TP SCH (11:04)
[2018-07-13] MEDS: CIPROFLOXACIN HCL 500 MG TABLET PO SCH ×2 (11:12→22:38)
[2018-07-13] MEDS: HYDROXYCHLOROQUINE SULFATE 200 MG TABLET PO SCH ×2 (11:12→22:38)
[2018-07-13] MEDS: ATORVASTATIN CALCIUM 40 MG TABLET PO SCH (22:38)
[2018-07-13] MEDS: PHARMACY COMMUNICATION ORDER MC SCH (22:49)
[2018-07-14] MEDS: HYDROMORPHONE HCL INJ/PF 2 MG/ML AMPULE IV PRN ×6 (02:24→23:43)
[2018-07-14] MEDS: PROMETHAZINE HCL INJ 25 MG/1 ML VIAL IV PRN ×4 (04:19→23:44)
[2018-07-14] MEDS: LANSOPRAZOLE 30 MG TAB.RAP.DR PO SCH ×2 (05:09→17:18)
[2018-07-14] MEDS: LEVOTHYROXINE SODIUM 0.1 MG TABLET PO SCH (05:09)
[2018-07-14] MEDS: GENTAMICIN SULFATE 0.1% OINTMENT 15 GM TP SCH ×3 (05:11→21:19)
[2018-07-14] MEDS: NORMAL SALINE 1000 ML 1,000 ML IV PRN ×2 (06:51→19:29)
--- NOTE | 2018-07-14 09:20 | PDOC PROGRESS REPORT ---
Subjective Progress Note for:: 07/14/18 Subjective:: As usual for persistent nausea vomiting and chronic pain issues Patient is currently doing fair Denied any chest pain denied any shortness of the breath According to the nursing staff did not notice any diarrhea patient's p.o. intake with the medicine is fair Reason For Visit: PERSISTENT GASTROENTERITIS Physical Exam Vital Signs: Temp Pulse Resp BP Pulse Ox 98.1 F 71 18 140/91 H 99 07/13/18 23:02 07/13/18 23:02 07/13/18 23:02 07/13/18 23:02 07/13/18 23:02 Intake & Output 07/13/18 07/14/18 07/15/18 07:59 06:59 06:59 Intake Total Output Total Balance Weight General appearance: PRESENT: no acute distress, well-developed, well-nourished Head exam: PRESENT: atraumatic, normocephalic Eye exam: PRESENT: conjunctiva pink, EOMI, PERRLA. ABSENT: scleral icterus Ear exam: PRESENT: normal external ear exam Mouth exam: PRESENT: moist, tongue midline Neck exam: PRESENT: full ROM. ABSENT: carotid bruit, JVD, lymphadenopathy, thyromegaly Respiratory exam: PRESENT: clear to auscultation martínez Cardiovascular exam: PRESENT: RRR. ABSENT: diastolic murmur, rubs, systolic murmur Pulses: PRESENT: normal dorsalis pedis pul, +2 pedal pulses bilateral Vascular exam: PRESENT: normal capillary refill GI/Abdominal exam: PRESENT: normal bowel sounds, soft. ABSENT: distended, guarding, mass, organolmegaly, rebound, tenderness Rectal exam: PRESENT: deferred Extremities exam: ABSENT: pedal edema Neurological exam: PRESENT: alert, awake, oriented to person, oriented to place , oriented to time, oriented to situation, CN II-XII grossly intact. ABSENT: motor sensory deficit Psychiatric exam: PRESENT: appropriate affect, normal mood. ABSENT: homicidal ideation, suicidal ideation Skin exam: PRESENT: dry, intact, warm. 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 failure anemia type: other bone marrow failure Qualified Code(s): D61.89 - Other specified aplastic anemias and other bone marrow failure syndromes Is this a current diagnosis for this admission?: Yes (4) Coronary artery disease Is this a current diagnosis for this admission?: Yes (5) Gastroenteritis Is this a current diagnosis for this admission?: Yes - Time Time Spent with patient: 15-24 minutes Medications reviewed and adjusted accordingly: Yes Anticipated discharge: Home Within: Other - Inpatient Certification Based on my medical assessment, after consideration of the patient's comorbidities, presenting symptoms, or acuity I expect that the services needed warrant INPATIENT care.: Yes I certify that my determination is in accordance with my understanding of Medicare's requirements for reasonable and necessary INPATIENT services [42 CFR 412.3e].: Yes Medical Necessity: Need Close Monitoring Due to Risk of Patient Decompensation 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
[2018-07-14] MEDS: LOSARTAN POTASSIUM 50 MG TABLET PO SCH (09:38)
[2018-07-14] MEDS: FUROSEMIDE 40 MG TABLET PO SCH (09:38)
[2018-07-14] MEDS: OMEGA-3 ACID ETHYL ESTERS 1 GM CAPSULE PO SCH ×2 (09:38→17:18)
[2018-07-14] MEDS: LIDOCAINE 5% (700 MG) TRANSDERMAL ADH..PATCH TP SCH (09:38)
[2018-07-14] MEDS: ASPIRIN 81 MG TABLET, CHEWABLE PO SCH (09:38)
[2018-07-14] MEDS: CARVEDILOL 12.5 MG TABLET PO SCH ×2 (09:39→21:19)
[2018-07-14] MEDS: SERTRALINE HCL 50 MG TABLET PO SCH (09:39)
[2018-07-14] MEDS: SUCRALFATE 1 GM TABLET PO SCH ×4 (09:39→21:19)
[2018-07-14] MEDS: CIPROFLOXACIN HCL 500 MG TABLET PO SCH ×2 (09:40→21:19)
[2018-07-14] MEDS: HYDROXYCHLOROQUINE SULFATE 200 MG TABLET PO SCH ×2 (09:40→21:18)
[2018-07-14] MEDS: ATORVASTATIN CALCIUM 40 MG TABLET PO SCH (21:19)
[2018-07-14] MEDS: PHARMACY COMMUNICATION ORDER MC SCH (21:21)
[2018-07-15] MEDS: HYDROMORPHONE HCL INJ/PF 2 MG/ML AMPULE IV PRN ×5 (04:05→23:04)
[2018-07-15] MEDS: GENTAMICIN SULFATE 0.1% OINTMENT 15 GM TP SCH ×3 (05:42→22:28)
[2018-07-15] MEDS: LEVOTHYROXINE SODIUM 0.1 MG TABLET PO SCH (05:42)
[2018-07-15] MEDS: LANSOPRAZOLE 30 MG TAB.RAP.DR PO SCH ×2 (05:42→17:08)
[2018-07-15] MEDS: PROMETHAZINE HCL INJ 25 MG/1 ML VIAL IV PRN ×2 (05:44→20:01)
[2018-07-15 06:06] LABS: ABSOLUTE EOSINOPHILS # (AUTO) 0.1 10^3/uL (0.0-0.6); ABSOLUTE LYMPHOCYTES (AUTO) 1.8 10^3/uL (0.5-4.7); ABSOLUTE MONOCYTES (AUTO) 0.5 10^3/uL (0.1-1.4); ABSOLUTE NEUT (AUTO) 3.6 10^3/uL (1.7-8.2); BASOPHILS % (AUTO) 0.5 % (0-2); EOSINOPHILS % (AUTO) 1.2 % (0-6); HEMATOCRIT 27.5 % (36.0-47.0); HEMOGLOBIN 9.5 g/dL (12.0-15.5); LYMPHOCYTES % (AUTO) 30.5 % (13-45); MEAN CORPUSCULAR HEMOGLOBIN 27.2 pg (27.0-33.4); MEAN CORPUSCULAR HGB CONC 34.5 g/dL (32.0-36.0); MEAN CORPUSCULAR VOLUME 79 fl (80-97); MONOCYTES % (AUTO) 8.1 % (3-13); PLATELET COUNT 284 10^3/uL (150-450); RED BLOOD COUNT 3.49 10^6/uL (3.72-5.28); RED CELL DISTRIBUTION WIDTH 15.4 % (11.5-14.0); SEGMENTED NEUTROPHILS % (AUTO) 59.7 % (42-78); TOTAL CELLS COUNTED % (AUTO) 100 %
[2018-07-15 06:44] LABS: ANION GAP 8 (5-19); BLOOD UREA NITROGEN 5 mg/dL (7-20); CALCIUM 8.1 mg/dL (8.4-10.2); CARBON DIOXIDE 27 mmol/L (22-30); CHLORIDE 105 mmol/L (98-107); GLUCOSE 84 mg/dL (75-110); POTASSIUM 3.7 mmol/L (3.6-5.0); SODIUM 139.5 mmol/L (137-145)
[2018-07-15] MEDS: SUCRALFATE 1 GM TABLET PO SCH ×4 (07:57→22:27)
[2018-07-15] MEDS: NORMAL SALINE 1000 ML 1,000 ML IV PRN ×2 (08:14→22:26)
[2018-07-15] MEDS: CARVEDILOL 12.5 MG TABLET PO SCH ×2 (09:52→22:27)
[2018-07-15] MEDS: FUROSEMIDE 40 MG TABLET PO SCH (09:52)
[2018-07-15] MEDS: CIPROFLOXACIN HCL 500 MG TABLET PO SCH ×2 (09:52→22:27)
[2018-07-15] MEDS: ASPIRIN 81 MG TABLET, CHEWABLE PO SCH (09:52)
[2018-07-15] MEDS: SERTRALINE HCL 50 MG TABLET PO SCH (09:52)
[2018-07-15] MEDS: LIDOCAINE 5% (700 MG) TRANSDERMAL ADH..PATCH TP SCH (09:52)
[2018-07-15] MEDS: PROMETHAZINE HCL 25 MG TABLET PO PRN (09:53)
[2018-07-15] MEDS: HYDROXYCHLOROQUINE SULFATE 200 MG TABLET PO SCH ×2 (09:53→22:27)
[2018-07-15] MEDS: LOSARTAN POTASSIUM 50 MG TABLET PO SCH (09:53)
[2018-07-15] MEDS: OMEGA-3 ACID ETHYL ESTERS 1 GM CAPSULE PO SCH ×2 (09:53→17:08)
--- NOTE | 2018-07-15 20:44 | PDOC PROGRESS REPORT ---
Subjective Progress Note for:: 07/15/18 Subjective:: Patient seen by the bedside Reason For Visit: PERSISTENT GASTROENTERITIS Physical Exam Vital Signs: Temp Pulse Resp BP Pulse Ox 98.4 F 67 17 149/63 H 100 07/15/18 20:38 07/15/18 20:38 07/15/18 20:38 07/15/18 20:38 07/15/18 20:38 Intake & Output 07/14/18 07/15/18 07/16/18 06:59 06:59 06:59 Intake Total 3787 1612 Output Total 3100 800 Balance 687 812 Weight 92.2 kg General appearance: PRESENT: no acute distress Eye exam: PRESENT: PERRLA Respiratory exam: PRESENT: clear to auscultation martínez Cardiovascular exam: PRESENT: +S1, +S2 GI/Abdominal exam: PRESENT: soft Neurological exam: PRESENT: alert Results Laboratory Results: 07/15/18 05:49 07/15/18 05:49 07/15/18 07/15/18 05:49 05:49 WBC 6.0 RBC 3.49 L Hgb 9.5 L Hct 27.5 L MCV 79 L MCH 27.2 MCHC 34.5 RDW 15.4 H Plt Count 284 Seg Neutrophils % 59.7 Lymphocytes % 30.5 Monocytes % 8.1 Eosinophils % 1.2 Basophils % 0.5 Absolute Neutrophils 3.6 Absolute Lymphocytes 1.8 Absolute Monocytes 0.5 Absolute Eosinophils 0.1 Absolute Basophils 0.0 Sodium 139.5 Potassium 3.7 Chloride 105 Carbon Dioxide 27 Anion Gap 8 BUN 5 L Creatinine 0.83 Est GFR ( Amer) > 60 Est GFR (Non-Af Amer) > 60 Glucose 84 Calcium 8.1 L Assessment & Plan - Diagnosis (1) Urinary tract infection Qualifiers: Urinary tract infection type: acute cystitis Hematuria presence: without hematuria Qualified Code(s): N30.00 - Acute cystitis without hematuria Is this a current diagnosis for this admission?: Yes Plan: She continues to have dysuria, start Pyridium (2) Diarrhea Qualifiers: Diarrhea type: unspecified type Qualified Code(s): R19.7 - Diarrhea, unspecified Is this a current diagnosis for this admission?: Yes (3) Failure of outpatient treatment Is this a current diagnosis for this admission?: Yes
[2018-07-15] MEDS: ATORVASTATIN CALCIUM 40 MG TABLET PO SCH (22:27)
[2018-07-15] MEDS: PHENAZOPYRIDINE HCL 200 MG TABLET PO SCH (22:27)
[2018-07-15] MEDS: PHARMACY COMMUNICATION ORDER MC SCH (22:30)
[2018-07-16] MEDS: PROMETHAZINE HCL INJ 25 MG/1 ML VIAL IV PRN ×2 (02:07→21:15)
[2018-07-16] MEDS: HYDROMORPHONE HCL INJ/PF 2 MG/ML AMPULE IV PRN ×5 (04:15→20:13)
[2018-07-16] MEDS: PHENAZOPYRIDINE HCL 200 MG TABLET PO SCH ×3 (05:58→21:17)
[2018-07-16] MEDS: LEVOTHYROXINE SODIUM 0.1 MG TABLET PO SCH (05:58)
[2018-07-16] MEDS: LANSOPRAZOLE 30 MG TAB.RAP.DR PO SCH ×2 (05:59→17:00)
[2018-07-16] MEDS: GENTAMICIN SULFATE 0.1% OINTMENT 15 GM TP SCH ×3 (05:59→21:18)
[2018-07-16 06:46] LABS: ANION GAP 8 (5-19); BLOOD UREA NITROGEN 6 mg/dL (7-20); CALCIUM 8.1 mg/dL (8.4-10.2); CARBON DIOXIDE 27 mmol/L (22-30); CHLORIDE 105 mmol/L (98-107); GLUCOSE 134 mg/dL (75-110); POTASSIUM 3.4 mmol/L (3.6-5.0); SODIUM 140.2 mmol/L (137-145)
[2018-07-16] MEDS: SUCRALFATE 1 GM TABLET PO SCH ×4 (07:57→21:17)
[2018-07-16] MEDS: PROMETHAZINE HCL 25 MG TABLET PO PRN ×2 (08:04→14:06)
[2018-07-16] MEDS: OMEGA-3 ACID ETHYL ESTERS 1 GM CAPSULE PO SCH ×2 (10:21→17:00)
[2018-07-16] MEDS: CARVEDILOL 12.5 MG TABLET PO SCH ×2 (10:21→21:17)
[2018-07-16] MEDS: FUROSEMIDE 40 MG TABLET PO SCH (10:22)
[2018-07-16] MEDS: ASPIRIN 81 MG TABLET, CHEWABLE PO SCH (10:22)
[2018-07-16] MEDS: SERTRALINE HCL 50 MG TABLET PO SCH (10:22)
[2018-07-16] MEDS: LOSARTAN POTASSIUM 50 MG TABLET PO SCH (10:22)
[2018-07-16] MEDS: CIPROFLOXACIN HCL 500 MG TABLET PO SCH ×2 (10:25→21:18)
[2018-07-16] MEDS: HYDROXYCHLOROQUINE SULFATE 200 MG TABLET PO SCH ×2 (10:26→21:17)
[2018-07-16] MEDS: LIDOCAINE 5% (700 MG) TRANSDERMAL ADH..PATCH TP SCH (10:26)
[2018-07-16] MEDS: NORMAL SALINE 1000 ML 1,000 ML IV PRN (12:20)
[2018-07-16] MEDS ORDERED: POTASSIUM CHLORIDE 10 MEQ CAPSULE.ER PO ONE (19:30)
--- NOTE | 2018-07-16 19:46 | PDOC PROGRESS REPORT ---
Subjective Progress Note for:: 07/16/18 Subjective:: Patient seen by the bedside Reason For Visit: PERSISTENT GASTROENTERITIS Physical Exam Vital Signs: Temp Pulse Resp BP Pulse Ox 98.4 F 66 20 130/56 H 100 07/16/18 16:00 07/16/18 16:00 07/16/18 16:00 07/16/18 16:00 07/16/18 16:00 Intake & Output 07/15/18 07/16/18 07/17/18 06:59 06:59 06:59 Intake Total 3787 3132 1720 Output Total 3100 800 Balance 687 2332 1720 Weight 92.2 kg 89.1 kg General appearance: PRESENT: no acute distress Eye exam: PRESENT: PERRLA Respiratory exam: PRESENT: clear to auscultation martínez Cardiovascular exam: PRESENT: +S1, +S2 GI/Abdominal exam: PRESENT: soft Neurological exam: PRESENT: alert Results Laboratory Results: 07/15/18 05:49 07/16/18 06:13 07/16/18 06:13 Sodium 140.2 Potassium 3.4 L Chloride 105 Carbon Dioxide 27 Anion Gap 8 BUN 6 L Creatinine 0.85 Est GFR ( Amer) > 60 Est GFR (Non-Af Amer) > 60 Glucose 134 H Calcium 8.1 L Assessment & Plan - Diagnosis (1) Urinary tract infection Qualifiers: Urinary tract infection type: acute cystitis Hematuria presence: without hematuria Qualified Code(s): N30.00 - Acute cystitis without hematuria Is this a current diagnosis for this admission?: Yes (2) Diarrhea Qualifiers: Diarrhea type: unspecified type Qualified Code(s): R19.7 - Diarrhea, unspecified Is this a current diagnosis for this admission?: Yes (3) Failure of outpatient treatment Is this a current diagnosis for this admission?: Yes
[2018-07-16] MEDS: ATORVASTATIN CALCIUM 40 MG TABLET PO SCH (21:17)
[2018-07-16] MEDS: PHARMACY COMMUNICATION ORDER MC SCH (21:19)
[2018-07-17] MEDS: NORMAL SALINE 1000 ML 1,000 ML IV PRN ×2 (00:46→14:33)
[2018-07-17] MEDS: HYDROMORPHONE HCL INJ/PF 2 MG/ML AMPULE IV PRN ×5 (03:27→20:34)
[2018-07-17] MEDS: PHENAZOPYRIDINE HCL 200 MG TABLET PO SCH ×3 (05:34→21:27)
[2018-07-17] MEDS: LANSOPRAZOLE 30 MG TAB.RAP.DR PO SCH ×2 (05:34→17:54)
[2018-07-17] MEDS: PROMETHAZINE HCL INJ 25 MG/1 ML VIAL IV PRN ×3 (05:34→19:30)
[2018-07-17] MEDS: LEVOTHYROXINE SODIUM 0.1 MG TABLET PO SCH (05:34)
[2018-07-17] MEDS: GENTAMICIN SULFATE 0.1% OINTMENT 15 GM TP SCH ×3 (05:48→21:30)
[2018-07-17 06:35] LABS: ANION GAP 12 (5-19); BLOOD UREA NITROGEN 6 mg/dL (7-20); CALCIUM 8.4 mg/dL (8.4-10.2); CARBON DIOXIDE 25 mmol/L (22-30); CHLORIDE 104 mmol/L (98-107); GLUCOSE 115 mg/dL (75-110); POTASSIUM 4.2 mmol/L (3.6-5.0); SODIUM 140.9 mmol/L (137-145)
[2018-07-17] MEDS: SUCRALFATE 1 GM TABLET PO SCH ×4 (07:32→21:29)
[2018-07-17] MEDS: ASPIRIN 81 MG TABLET, CHEWABLE PO SCH (10:13)
[2018-07-17] MEDS: FUROSEMIDE 40 MG TABLET PO SCH (10:13)
[2018-07-17] MEDS: OMEGA-3 ACID ETHYL ESTERS 1 GM CAPSULE PO SCH ×2 (10:13→17:54)
[2018-07-17] MEDS: LIDOCAINE 5% (700 MG) TRANSDERMAL ADH..PATCH TP SCH (10:13)
[2018-07-17] MEDS: CIPROFLOXACIN HCL 500 MG TABLET PO SCH ×2 (10:13→21:28)
[2018-07-17] MEDS: LOSARTAN POTASSIUM 50 MG TABLET PO SCH (10:16)
[2018-07-17] MEDS: SERTRALINE HCL 50 MG TABLET PO SCH (10:16)
[2018-07-17] MEDS: HYDROXYCHLOROQUINE SULFATE 200 MG TABLET PO SCH ×2 (10:17→21:28)
[2018-07-17] MEDS: CARVEDILOL 12.5 MG TABLET PO SCH ×2 (10:17→21:28)
--- NOTE | 2018-07-17 18:22 | PDOC PROGRESS REPORT ---
Subjective Progress Note for:: 07/17/18 Subjective:: Patient seen by the bedside Reason For Visit: PERSISTENT GASTROENTERITIS Physical Exam Vital Signs: Temp Pulse Resp BP Pulse Ox 98.1 F 64 18 119/51 L 98 07/17/18 16:16 07/17/18 16:16 07/17/18 16:16 07/17/18 16:16 07/17/18 16:16 Intake & Output 07/16/18 07/17/18 07/18/18 06:59 06:59 06:59 Intake Total 3132 3072 1622 Output Total 800 1400 Balance 2332 3072 222 Weight 89.1 kg 89.1 kg General appearance: PRESENT: no acute distress Eye exam: PRESENT: PERRLA Respiratory exam: PRESENT: clear to auscultation martínez Cardiovascular exam: PRESENT: +S1, +S2 GI/Abdominal exam: PRESENT: soft Neurological exam: PRESENT: alert Results Laboratory Results: 07/15/18 05:49 07/17/18 05:35 07/17/18 05:35 Sodium 140.9 Potassium 4.2 Chloride 104 Carbon Dioxide 25 Anion Gap 12 BUN 6 L Creatinine 0.85 Est GFR ( Amer) > 60 Est GFR (Non-Af Amer) > 60 Glucose 115 H Calcium 8.4 Assessment & Plan - Diagnosis (1) Urinary tract infection Qualifiers: Urinary tract infection type: acute cystitis Hematuria presence: without hematuria Qualified Code(s): N30.00 - Acute cystitis without hematuria Is this a current diagnosis for this admission?: Yes (2) Diarrhea Qualifiers: Diarrhea type: unspecified type Qualified Code(s): R19.7 - Diarrhea, unspecified Is this a current diagnosis for this admission?: Yes (3) Failure of outpatient treatment Is this a current diagnosis for this admission?: Yes
[2018-07-17] MEDS: ATORVASTATIN CALCIUM 40 MG TABLET PO SCH (21:29)
[2018-07-17] MEDS: PROMETHAZINE HCL 25 MG TABLET PO PRN (23:52)
[2018-07-18] MEDS: HYDROMORPHONE HCL INJ/PF 2 MG/ML AMPULE IV PRN ×5 (00:49→20:21)
[2018-07-18] MEDS: NORMAL SALINE 1000 ML 1,000 ML IV PRN ×2 (04:00→17:51)
[2018-07-18] MEDS: PROMETHAZINE HCL INJ 25 MG/1 ML VIAL IV PRN (04:50)
[2018-07-18] MEDS: PHENAZOPYRIDINE HCL 200 MG TABLET PO SCH ×3 (05:35→22:13)
[2018-07-18] MEDS: LANSOPRAZOLE 30 MG TAB.RAP.DR PO SCH ×2 (05:35→16:38)
[2018-07-18] MEDS: LEVOTHYROXINE SODIUM 0.1 MG TABLET PO SCH (05:36)
[2018-07-18] MEDS: GENTAMICIN SULFATE 0.1% OINTMENT 15 GM TP SCH ×3 (05:36→22:12)
[2018-07-18] MEDS: PHARMACY COMMUNICATION ORDER MC SCH ×2 (05:40→22:16)
[2018-07-18] MEDS: SUCRALFATE 1 GM TABLET PO SCH ×4 (08:03→22:13)
[2018-07-18] MEDS: OMEGA-3 ACID ETHYL ESTERS 1 GM CAPSULE PO SCH ×2 (10:17→17:52)
[2018-07-18] MEDS: ASPIRIN 81 MG TABLET, CHEWABLE PO SCH (10:18)
[2018-07-18] MEDS: CARVEDILOL 12.5 MG TABLET PO SCH ×2 (10:18→22:13)
[2018-07-18] MEDS: LOSARTAN POTASSIUM 50 MG TABLET PO SCH (10:19)
[2018-07-18] MEDS: FUROSEMIDE 40 MG TABLET PO SCH (10:19)
[2018-07-18] MEDS: SERTRALINE HCL 50 MG TABLET PO SCH (10:19)
[2018-07-18] MEDS: PROMETHAZINE HCL 25 MG TABLET PO PRN ×2 (10:19→20:21)
[2018-07-18] MEDS: CIPROFLOXACIN HCL 500 MG TABLET PO SCH (10:20)
[2018-07-18] MEDS: HYDROXYCHLOROQUINE SULFATE 200 MG TABLET PO SCH ×2 (10:20→22:13)
[2018-07-18] MEDS: LIDOCAINE 5% (700 MG) TRANSDERMAL ADH..PATCH TP SCH (10:20)
--- NOTE | 2018-07-18 21:13 | PDOC DISCHARGE SUMMARY ---
General - Admit/Disc Date/PCP Admission Date/Primary Care Provider: 07/08/18 14:17 IAN MUÑOZ MD Discharge Date: 07/18/18 - Discharge Diagnosis (1) Urinary tract infection Is this a current diagnosis for this admission?: Yes (2) Diarrhea Is this a current diagnosis for this admission?: Yes (3) Failure of outpatient treatment Is this a current diagnosis for this admission?: Yes (4) Vomiting Is this a current diagnosis for this admission?: Yes - Additional Information Home Medications: RX: Aspirin [Aspirin 81 mg Chewable Tablet] 81 mg PO DAILY 07/08/18 RX: Atorvastatin Calcium [Lipitor 40 mg Tablet] 40 mg PO DAILY 07/08/18 RX: Carvedilol Phosphate [Coreg CR 40 mg Ext. Release Capsule] 40 mg PO DAILY RX: Cyclobenzaprine HCl [Flexeril 10 mg Tablet] 10 mg PO TIDP PRN 07/08/18 RX: Dexlansoprazole [Dexilant 60 mg Capsule] 60 mg PO BID 07/08/18 RX: Doxepin HCl [Silenor] 6 mg PO QHS 07/08/18 RX: Furosemide [Lasix 40 mg Tablet] 40 mg PO DAILY 07/08/18 RX: Hydrocodone Bitartrate [Zohydro ER] 40 mg PO Q12 07/08/18 RX: Hydroxychloroquine Sulfate [Plaquenil 200 mg Tablet] 200 mg PO BID 07/08/18 RX: Levothyroxine Sodium [Synthroid] 100 mcg PO Q6AM 07/08/18 RX: Losartan Potassium [Cozaar 50 mg Tablet] 50 mg PO DAILY 07/08/18 RX: Duncan-3 Acid Ethyl Esters [Lovaza 1 gm Capsule] 2 gm PO BID 07/08/18 RX: Pantoprazole Sodium [Protonix] 40 mg PO BID 07/08/18 RX: Promethazine HCl [Phenergan 25 mg Tablet] 25 mg PO Q6HP PRN 07/08/18 RX: Sertraline HCl [Zoloft 50 mg Tablet] 50 mg PO DAILY 07/08/18 RX: Sucralfate [Carafate 1 gm Tablet] 1 gm PO QID 07/08/18 RX: Zaleplon [Sonata] 10 mg PO HSP PRN 07/08/18 History of Present Illness History of Present Illness: VALENTE MUNOZ is a 62 year old female, She came to the office today for evaluation of continued diarrhea, urinary symptoms frequency ,urgency of urination She was in the office last week for evaluation of the same symptom, she was empirically treated for UTI and also C. difficile colitis because of her history of C. difficile colitis and recurrent UTI. She has chronic comorbid conditions with multiple hospital admission for various indications. 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 She has a history of VRE, ESBL urinary tract infection, history of allergy to penicillin, nitrofurantoin. Hospital Course Hospital Course: Patient was admitted for the management of urinary tract infection, chronic pain and diarrhea. She was treated with IV antibiotic empirically, ciprofloxacin, urine culture grew Morganella. She has multiple comorbid conditions, hospital course was prolonged because of continued vomiting, not able to keep any food down Physical Exam Vital Signs: Temp Pulse Resp BP Pulse Ox 98.6 F 65 18 143/64 H 97 07/18/18 20:21 07/18/18 20:21 07/18/18 20:21 07/18/18 20:21 07/18/18 20:21 Intake & Output 07/17/18 07/18/18 07/19/18 06:59 06:59 06:59 Intake Total 3072 2622 1590 Output Total 1400 1200 Balance 3072 1222 390 Weight 89.1 kg 89.1 kg General appearance: PRESENT: no acute distress Eye exam: PRESENT: conjunctiva pink, EOMI, PERRLA Ear exam: PRESENT: normal external ear exam Mouth exam: PRESENT: moist, tongue midline Neck exam: PRESENT: full ROM Respiratory exam: PRESENT: clear to auscultation martínez Cardiovascular exam: PRESENT: RRR, +S1, +S2 Pulses: PRESENT: normal dorsalis pedis pul, +2 pedal pulses bilateral Vascular exam: PRESENT: normal capillary refill GI/Abdominal exam: PRESENT: normal bowel sounds, soft Rectal exam: PRESENT: deferred Neurological exam: PRESENT: alert, CN II-XII grossly intact Psychiatric exam: PRESENT: appropriate affect Skin exam: PRESENT: dry, intact, warm Results Laboratory Results: 07/15/18 05:49 07/17/18 05:35 Qualifiers - * PATIENT BEING DISCHARGED WITH ANY OF THE FOLLOWING DIAGNOSIS: No
[2018-07-18] MEDS: ATORVASTATIN CALCIUM 40 MG TABLET PO SCH (22:13)
[2018-07-19] MEDS: PROMETHAZINE HCL INJ 25 MG/1 ML VIAL IV PRN (00:22)
[2018-07-19] MEDS: HYDROMORPHONE HCL INJ/PF 2 MG/ML AMPULE IV PRN ×3 (00:22→08:48)
[2018-07-19] MEDS: NORMAL SALINE 1000 ML 1,000 ML IV PRN (04:52)
[2018-07-19] MEDS: LANSOPRAZOLE 30 MG TAB.RAP.DR PO SCH (05:16)
[2018-07-19] MEDS: PHENAZOPYRIDINE HCL 200 MG TABLET PO SCH (05:16)
[2018-07-19] MEDS: LEVOTHYROXINE SODIUM 0.1 MG TABLET PO SCH (05:16)
[2018-07-19] MEDS: GENTAMICIN SULFATE 0.1% OINTMENT 15 GM TP SCH (05:18)
[2018-07-19] MEDS: PROMETHAZINE HCL 25 MG TABLET PO PRN (06:54)
[2018-07-19] MEDS: SUCRALFATE 1 GM TABLET PO SCH (07:36)
[2018-07-19 08:26] VITALS: BP 119/54
== END 2018-07-19 09:38 | disposition home or self-care (01) | DRG 392 ==
LOC: 5 14:17
PROVIDERS: ADMIT Internal Medicine; ATTEND Internal Medicine
DX: K52.9 Noninfective gastroenteritis and colitis, unspecified (principal); N30.00 Acute cystitis without hematuria; N17.9 Acute kidney failure, unspecified; B96.89 Other specified bacterial agents as the cause of diseases classified elsewhere; I25.10 Atherosclerotic heart disease of native coronary artery without angina pectoris; E78.00 Pure hypercholesterolemia, unspecified; I10 Essential (primary) hypertension; J44.9 Chronic obstructive pulmonary disease, unspecified; E03.9 Hypothyroidism, unspecified; K21.9 Gastro-esophageal reflux disease without esophagitis; M32.9 Systemic lupus erythematosus, unspecified; F32.9 Major depressive disorder, single episode, unspecified; I25.2 Old myocardial infarction; Z23 Encounter for immunization; Z86.718 Personal history of other venous thrombosis and embolism; Z86.711 Personal history of pulmonary embolism; Z85.41 Personal history of malignant neoplasm of cervix uteri; Z85.43 Personal history of malignant neoplasm of ovary; Z90.49 Acquired absence of other specified parts of digestive tract; Z95.5 Presence of coronary angioplasty implant and graft; Z96.653 Presence of artificial knee joint, bilateral; Z96.643 Presence of artificial hip joint, bilateral; Z79.82 Long term (current) use of aspirin; Z79.899 Other long term (current) drug therapy; Z88.0 Allergy status to penicillin; Z88.8 Allergy status to other drugs, medicaments and biological substances; Z88.6 Allergy status to analgesic agent; Z88.3 Allergy status to other anti-infective agents; Z91.030 Bee allergy status; Z82.61 Family history of arthritis; Z83.6 Family history of other diseases of the respiratory system; Z82.49 Family history of ischemic heart disease and other diseases of the circulatory system; Z80.9 Family history of malignant neoplasm, unspecified
CPT/HCPCS: 36415; 80048; 80076; 81001; 85025; 85027; 87040; 87086; 87088; 87186; 90471; 90686; G0008; J0744; J1170; J2550; J2997; J3490; J7030

== ENCOUNTER 2018-07-21 16:44 | Inpatient (IN) | payer MEDICARE ==
[2018-07-21] MEDS ORDERED: NORMAL SALINE 1000 ML 1,000 ML IV ONE (17:03)
[2018-07-21] MEDS ORDERED: ONDANSETRON HCL INJ/PF 4 MG/2 ML SDV IV ONE (17:03)
--- NOTE | 2018-07-21 17:04 | ER Document Report ---
ED Medical Screen (RME) - General Chief Complaint: Nausea/Vomiting/Diarrhea Stated Complaint: NAUSEA/VOMITING/DIARRHEA Time Seen by Provider: 07/21/18 17:02 Mode of Arrival: Wheelchair Information source: Patient, Relative TRAVEL OUTSIDE OF THE [place] IN LAST 30 DAYS: No - HPI Patient complains to provider of: N/V/D Onset: Yesterday - pt d/c'd from [facility] 2 days ago with C diff with recurrent N/V/D - Related Data Allergies/Adverse Reactions: irbesartan [From Avapro] Allergy (Severe, Verified 04/02/18 18:38) swelling of face nitrofurantoin macrocrystalline [From Macrobid] Allergy (Severe, Verified 18:38) Generalized edema Penicillins Allergy (Severe, Verified 04/02/18 18:38) eyes swelled pregabalin [From Lyrica] Allergy (Severe, Verified 04/02/18 18:38) Equilibrium Issues venom-honey bee [bee venom (honey bee)] Allergy (Verified 04/02/18 18:38) Anaphylaxis Past Medical History - Past Medical History Cardiac Medical History: Reports: Hx Congestive Heart Failure, Hx Coronary Artery Disease, Hx DVT, Hx Heart Attack, Hx Hypercholesterolemia, Hx Hypertension, Hx Pulmonary Embolism Pulmonary Medical History: Reports: Hx Bronchitis, Hx COPD Neurological Medical History: Denies: Hx Cerebrovascular Accident Endocrine Medical History: Reports: Hx Hypothyroidism Renal/ Medical History: Reports: Hx Ovarian Cysts. Denies: Hx Kidney Stones, Hx Peritoneal Dialysis Malignancy Medical History: Reports: Hx Cervical Cancer, Hx Ovarian Cancer GI Medical History: Reports: Hx Gastroesophageal Reflux Disease, Hx Hiatal Hernia - Repaired, Hx Irritable Bowel, Hx Colonoscopy, Hx Endoscopy. Denies: Hx Pancreatitis, Hx Ulcer Musculoskeltal Medical History: Reports Hx Arthritis - Lupus, Reports Hx Fibromyalgia - Lupus, Denies Hx Multiple Sclerosis, Reports Hx Musculoskeletal Deformity, Reports Hx Musculoskeletal Trauma Skin Medical History: Reports Hx Cellulitis - Recently treated, right breast Psychiatric Medical History: Reports: Hx Anxiety, Hx Depression Denies: Hx Schizophrenia Traumatic Medical History: Reports: Hx Fractures - Knee and hip Infectious Medical History: Reports: Hx C-Diff - Was negative in October2015. Not yet successfully collected stool, Hx MRSA, Hx VRE. Denies: Hx HIV Past Surgical History: Reports: Hx Appendectomy, Hx Bowel Surgery - Polyps, adhesions, Hx Cardiac Catheterization, Hx Cardiac Surgery - 2 stents 2014, Hx Section, Hx Cholecystectomy, Hx Coronary Stent - 3 stents, Hx Genitourinary Surgery - bladder sling, Hx Herniorrhaphy, Hx Hysterectomy, Hx Orthopedic Surgery - Right knee, bilateral knee replacements and hip replacement metal plate in, Hx Tonsillectomy. Denies: Hx Colostomy, Hx Coronary Artery Bypass Graft, Hx Gastric Bypass Surgery, Hx Mastectomy, Hx Open Heart Surgery, Hx Pacemaker, Hx Tubal Ligation - Immunizations Immunizations up to date: Yes History of Influenza Vaccine for 06/2017 - 11/2017 Season: Yes Influenza Administration Date for 06/2017 - 11/2017 Season: 06/10/17 Physical Exam - Vital signs Vitals: Temp Pulse Resp BP Pulse Ox 98.4 F 87 22 H 134/93 H 99 07/21/18 16:50 07/21/18 16:50 07/21/18 16:50 07/21/18 16:50 07/21/18 16:50 Course - Vital Signs Vital signs: Temp Pulse Resp BP Pulse Ox 98.4 F 87 22 H 134/93 H 99 07/21/18 16:50 07/21/18 16:50 07/21/18 16:50 07/21/18 16:50 07/21/18 16:50 Doctor's Discharge - Discharge Referrals: IAN MUÑOZ MD [Primary Care Provider] - Follow up as needed
[2018-07-21] MEDS ORDERED: HYDROMORPHONE HCL INJ/PF 2 MG/ML AMPULE IV ONE ×2 (17:59→18:50)
[2018-07-21 18:08] LABS: ABSOLUTE MONOCYTES (AUTO) 0.5 10^3/uL (0.1-1.4); ABSOLUTE NEUT (AUTO) 8.2 10^3/uL (1.7-8.2); BASOPHILS % (AUTO) 0.2 % (0-2); HEMATOCRIT 40.1 % (36.0-47.0); HEMOGLOBIN 13.5 g/dL (12.0-15.5); MEAN CORPUSCULAR HEMOGLOBIN 26.2 pg (27.0-33.4); MEAN CORPUSCULAR HGB CONC 33.7 g/dL (32.0-36.0); MEAN CORPUSCULAR VOLUME 78 fl (80-97); MONOCYTES % (AUTO) 5.2 % (3-13); PLATELET COUNT 337 10^3/uL (150-450); RED BLOOD COUNT 5.15 10^6/uL (3.72-5.28); RED CELL DISTRIBUTION WIDTH 15.2 % (11.5-14.0); SEGMENTED NEUTROPHILS % (AUTO) 84.6 % (42-78); TOTAL CELLS COUNTED % (AUTO) 100 %; WHITE BLOOD COUNT 9.7 10^3/uL (4.0-10.5)
[2018-07-21 18:31] LABS: ALANINE AMINOTRANSFERASE 20 U/L (9-52); ALBUMIN 4.4 g/dL (3.5-5.0); ALKALINE PHOSPHATASE 129 U/L (38-126); ANION GAP 19 (5-19); ASPARTATE AMINO TRANSFERASE 42 U/L (14-36); BILIRUBIN,DIRECT 0.4 mg/dL (0.0-0.4); BLOOD UREA NITROGEN 6 mg/dL (7-20); CALCIUM 9.4 mg/dL (8.4-10.2); CARBON DIOXIDE 24 mmol/L (22-30); CHLORIDE 99 mmol/L (98-107); GLUCOSE 126 mg/dL (75-110); LIPASE 38.6 U/L (23-300); SODIUM 141.6 mmol/L (137-145); TOTAL PROTEIN 7.7 g/dL (6.3-8.2)
[2018-07-21 18:38] LABS: POTASSIUM 2.5 mmol/L (3.6-5.0)
[2018-07-21] MEDS ORDERED: RINGERS SOLUTION,LACTATED 1,000 ML IV ONE (18:40)
[2018-07-21] MEDS ORDERED: PROMETHAZINE HCL INJ 25 MG/1 ML VIAL IV ONE ×2 (18:50→20:26)
--- NOTE | 2018-07-21 18:57 | ER Document Report ---
ED General - General Chief Complaint: Nausea/Vomiting/Diarrhea Stated Complaint: NAUSEA/VOMITING/DIARRHEA Time Seen by Provider: 07/21/18 17:02 Mode of Arrival: Wheelchair Notes: Patient is a 62-year-old female with recent admission for diarrhea and C. difficile that presents to the emergency department for chief complaint of nausea, vomiting and diarrhea. Patient reports that she was discharged on Sunday, for having symptoms of nausea, vomiting diarrhea, she states she was not feeling well at that time, but actually got worse over the last 48 hours so she decided come back to the emergency department. She denies noting any blood in the stool or the vomit. She feels very weak, and has very low energy. She is also complaining of generalized abdominal pain associated with this as well. She currently rates her pain as a 7 out of 10, describes as a constant aching sensation, nothing seems to make it better or worse. Past Medical History: Lupus, C. difficile, VRE infections, hypertension, CAD, hyperlipidemia Past Surgical History: Appendectomy, PCI with stenting, orthopedic surgeries Social History: Denies current tobacco, alcohol or drug use. Family History: Reviewed and noncontributory for presenting illness Allergies: Reviewed, see documented allergy list. REVIEW OF SYSTEMS: Other than noted above, the 12 point review of systems was reviewed with the patient and were negative, all pertinent findings are included in the HPI. PHYSICAL EXAMINATION: Vital signs reviewed, nursing noted reviewed. GENERAL: Patient is ill-appearing, and appears uncomfortable HEAD: Atraumatic, normocephalic. EYES: Eyes appear normal, extraocular movements intact, sclera anicteric, conjunctiva are normal. ENT: nares patent, oropharynx clear without exudates. Moist mucous membranes. NECK: Normal range of motion, supple without lymphadenopathy LUNGS: Breath sounds clear to auscultation bilaterally and equal. No wheezes rales or rhonchi. HEART: Regular rate and rhythm without murmurs ABDOMEN: Soft, diffuse abdominal tenderness with palpation normoactive bowel sounds. No rebound, guarding, or rigidity. No masses appreciated. EXTREMITIES: Nontender, good range of motion, no pitting or edema. NEUROLOGICAL: No focal neurological deficits. Moves all extremities spontaneously Motor and sensory grossly intact on exam. PSYCH: Appears uncomfortable, flat affect, but appropriate SKIN: Warm, Dry, normal turgor, appears pale on exam TRAVEL OUTSIDE OF THE [place] IN LAST 30 DAYS: No - Related Data Allergies/Adverse Reactions: irbesartan [From Avapro] Allergy (Severe, Verified 04/02/18 18:38) swelling of face nitrofurantoin macrocrystalline [From Macrobid] Allergy (Severe, Verified 18:38) Generalized edema Penicillins Allergy (Severe, Verified 04/02/18 18:38) eyes swelled pregabalin [From Lyrica] Allergy (Severe, Verified 04/02/18 18:38) Equilibrium Issues venom-honey bee [bee venom (honey bee)] Allergy (Verified 04/02/18 18:38) Anaphylaxis Past Medical History - General Information source: Patient, Relative - Social History Smoking Status: Never Smoker Chew tobacco use (# tins/day): No Frequency of alcohol use: None Drug Abuse: None Family History: Arthritis, COPD, Hyperlipidemia, Hypertension, Malignancy, Thyroid Disfunction Patient has suicidal ideation: No Patient has homicidal ideation: No - Past Medical History Cardiac Medical History: Reports: Hx Congestive Heart Failure, Hx Coronary Artery Disease, Hx DVT, Hx Heart Attack, Hx Hypercholesterolemia, Hx Hypertension, Hx Pulmonary Embolism Pulmonary Medical History: Reports: Hx Bronchitis, Hx COPD Neurological Medical History: Denies: Hx Cerebrovascular Accident Endocrine Medical History: Reports: Hx Hypothyroidism Renal/ Medical History: Reports: Hx Ovarian Cysts. Denies: Hx Kidney Stones, Hx Peritoneal Dialysis Malignancy Medical History: Reports: Hx Cervical Cancer, Hx Ovarian Cancer GI Medical History: Reports: Hx Gastroesophageal Reflux Disease, Hx Hiatal Hernia - Repaired, Hx Irritable Bowel, Hx Colonoscopy, Hx Endoscopy. Denies: Hx Pancreatitis, Hx Ulcer Musculoskeletal Medical History: Reports Hx Arthritis - Lupus, Reports Hx Fibromyalgia - Lupus, Denies Hx Multiple Sclerosis, Reports Hx Musculoskeletal Deformity, Reports Hx Musculoskeletal Trauma Skin Medical History: Reports Hx Cellulitis - Recently treated, right breast Psychiatric Medical History: Reports: Hx Anxiety, Hx Depression Denies: Hx Schizophrenia Traumatic Medical History: Reports: Hx Fractures - Knee and hip Infectious Medical History: Reports: Hx C-Diff - Was negative in October2015. Not yet successfully collected stool, Hx MRSA, Hx VRE. Denies: Hx HIV Past Surgical History: Reports: Hx Appendectomy, Hx Bowel Surgery - Polyps, adhesions, Hx Cardiac Catheterization, Hx Cardiac Surgery - 2 stents 2014, Hx Section, Hx Cholecystectomy, Hx Coronary Stent - 3 stents, Hx Genitourinary Surgery - bladder sling, Hx Herniorrhaphy, Hx Hysterectomy, Hx Orthopedic Surgery - Right knee, bilateral knee replacements and hip replacement metal plate in, Hx Tonsillectomy. Denies: Hx Colostomy, Hx Coronary Artery Bypass Graft, Hx Gastric Bypass Surgery, Hx Mastectomy, Hx Open Heart Surgery, Hx Pacemaker, Hx Tubal Ligation - Immunizations Immunizations up to date: Yes Hx Pneumococcal Vaccination: 05/20/11 Physical Exam - Vital signs Vitals: Temp Pulse Resp BP Pulse Ox 98.4 F 87 22 H 134/93 H 99 07/21/18 16:50 07/21/18 16:50 07/21/18 16:50 07/21/18 16:50 07/21/18 16:50 Course - Re-evaluation Re-evalutation: Patient seen and examined vital signs reviewed. Laboratory data and imaging were ordered as appropriate for the patient's presenting symptoms and complaint, with consideration of any critical or life threatening conditions that may be associated with their obtained history and exam as noted above. Patient was treated with IV fluids, IV Zofran and Phenergan, patient was having abdominal pain initially given 1 mg of Dilaudid, her pain was persistent so she was given an additional 1 mg. Results were reviewed when available and demonstrated severe hypokalemia, she was also had an elevated lactic acid at 3.5, likely secondary to significant dehydration, from nausea vomiting and diarrhea, she was also hypomagnesemic, she was given replacement for both her potassium and magnesium with IV replacement. I gave the patient a dose of IV Flagyl, given her history of C. difficile. C. difficile toxin testing and stool testing was ordered. The patient was re-evaluated and was improved, but still needing continued management and admission Evaluation was most consistent with severe diarrhea, dehydration, hypokalemia, hypomagnesemia, and dehydration Results were discussed with the patient at this point after careful consideration I feel that that patient should be admitted to the hospital. This was discussed with the patient that it is in the best interest for their care to be admitted for further evaluation and management. Patient agreed with this plan of care. A call was placed to the admitted physician, Dr. Mike who graciously accepted the patient onto their service. *Note is created using voice recognition software and may contain spelling, syntax or grammatical errors. Laboratory 07/21/18 07/21/18 07/21/18 17:50 17:50 17:50 WBC 9.7 RBC 5.15 Hgb 13.5 Hct 40.1 MCV 78 L MCH 26.2 L MCHC 33.7 RDW 15.2 H Plt Count 337 Seg Neutrophils % 84.6 H Lymphocytes % 10.0 L Monocytes % 5.2 Eosinophils % 0.0 Basophils % 0.2 Absolute Neutrophils 8.2 Absolute Lymphocytes 1.0 Absolute Monocytes 0.5 Absolute Eosinophils 0.0 Absolute Basophils 0.0 Sodium 141.6 Potassium 2.5 L* Chloride 99 Carbon Dioxide 24 Anion Gap 19 BUN 6 L Creatinine 1.00 Est GFR ( Amer) > 60 Est GFR (Non-Af Amer) 56 L Glucose 126 H Lactic Acid Calcium 9.4 Magnesium Total Bilirubin 1.0 Direct Bilirubin 0.4 Neonat Total Bilirubin Not Reportable Neonat Direct Bilirubin Not Reportable Neonat Indirect Bili Not Reportable AST 42 H ALT 20 Alkaline Phosphatase 129 H Troponin I < 0.012 Total Protein 7.7 Albumin 4.4 Lipase 38.6 07/21/18 07/21/18 17:50 17:50 WBC RBC Hgb Hct MCV MCH MCHC RDW Plt Count Seg Neutrophils % Lymphocytes % Monocytes % Eosinophils % Basophils % Absolute Neutrophils Absolute Lymphocytes Absolute Monocytes Absolute Eosinophils Absolute Basophils Sodium Potassium Chloride Carbon Dioxide Anion Gap BUN Creatinine Est GFR ( Amer) Est GFR (Non-Af Amer) Glucose Lactic Acid 3.2 H Calcium Magnesium 1.3 L Total Bilirubin Direct Bilirubin Neonat Total Bilirubin Neonat Direct Bilirubin Neonat Indirect Bili AST ALT Alkaline Phosphatase Troponin I Total Protein Albumin Lipase - Vital Signs Vital signs: Temp Pulse Resp BP Pulse Ox 98.4 F 87 22 H 134/93 H 99 07/21/18 16:50 07/21/18 16:50 07/21/18 16:50 07/21/18 16:50 07/21/18 16:50 - Laboratory Result Diagrams: 07/21/18 17:50 07/21/18 17:50 Laboratory results interpreted by me: 07/21/18 07/21/18 07/21/18 17:50 17:50 17:50 MCV 78 L MCH 26.2 L RDW 15.2 H Seg Neutrophils % 84.6 H Lymphocytes % 10.0 L Potassium 2.5 L* BUN 6 L Est GFR (Non-Af Amer) 56 L Glucose 126 H Lactic Acid 3.2 H Magnesium AST 42 H Alkaline Phosphatase 129 H 07/21/18 17:50 MCV MCH RDW Seg Neutrophils % Lymphocytes % Potassium BUN Est GFR (Non-Af Amer) Glucose Lactic Acid Magnesium 1.3 L AST Alkaline Phosphatase - EKG Interpretation by Me Additional EKG results interpreted by me: EKG demonstrates sinus rhythm with a ventricular rate of 74 bpm, normal axis, QTC 533 ms, no evidence of acute ischemia on this EKG, this is compared with prior EKG from 03/16/2018, where her QTC is prolonged compared to the prior EKG. Critical Care Note - Critical Care Note Total time excluding time spent on procedures (mins): 45 Comments: Critical care time 45 minutes exclusive from separate billable procedures for a patient requiring complex medical decision making, and high potential for clinical deterioration. In a patient with severe electrolyte abnormalities requiring IV replacement and close monitoring and resuscitation. Time spent obtaining history from patient or surrogate, discussions with consultants, development of treatment plan with patient or surrogate, evaluation of patient' s response to treatment, examination of patient, ordering and performing treatments and interventions, ordering and review of laboratory studies, re- evaluation of patient's condition, ordering and review of radiographic studies and review of old charts Discharge - Discharge Clinical Impression: Severe diarrhea, Hypokalemia, Lactic acidosis, Dehydration Condition: Stable Disposition: ADMITTED INPATIENT Admitting Provider: Cee Unit Admitted: [facility]
[2018-07-21] MEDS: POTASSI CL 20 MEQ/50 ML RIDER 20 MEQ/50 ML RTUPB IV SCH ×2 (19:18→21:16)
[2018-07-21] MEDS ORDERED: METRONIDAZOLE 500 MG/NS RTU 500 MG/100 ML RTUPB IV ONE (19:34)
[2018-07-21] MEDS: MAGNESIUM SULFATE/D5W 1 GM/100 ML RTUPB IV SCH ×3 (20:39→23:33)
--- NOTE | 2018-07-21 21:11 | EKG REPORT ---
SEVERITY:- ABNORMAL ECG - SINUS RHYTHM ATRIAL PREMATURE COMPLEX PROLONGED QT INTERVAL : Confirmed by: Juan Manuel Clarke MD 21-Jul-2018 21:10:04
[2018-07-21] MEDS ORDERED: PROCHLORPERAZINE EDISYLATE INJ 10 MG/2 ML VIAL IM ONE (21:26)
[2018-07-22] MEDS ORDERED: METRONIDAZOLE 500 MG/NS RTU 500 MG/100 ML RTUPB IV ONE (00:59)
[2018-07-22] MEDS: ONDANSETRON HCL INJ/PF 4 MG/2 ML SDV IV PRN ×3 (02:46→22:35)
[2018-07-22] MEDS: MORPHINE SULFATE 10 MG/ML INJ IV PRN ×5 (02:46→23:47)
[2018-07-22] MEDS: NORMAL SALINE 1000 ML 1,000 ML IV PRN ×2 (02:49→18:34)
[2018-07-22] MEDS: METRONIDAZOLE 500 MG/NS RTU 500 MG/100 ML RTUPB IV SCH ×4 (09:13→23:48)
[2018-07-22 09:39] LABS: ANION GAP 11 (5-19); BLOOD UREA NITROGEN 6 mg/dL (7-20); CALCIUM 8.2 mg/dL (8.4-10.2); CARBON DIOXIDE 24 mmol/L (22-30); CHLORIDE 105 mmol/L (98-107); GLUCOSE 96 mg/dL (75-110); SODIUM 139.8 mmol/L (137-145)
[2018-07-22 09:56] LABS: POTASSIUM 2.7 mmol/L (3.6-5.0)
[2018-07-22 10:33] LABS: APPEARANCE,URINE CLEAR; BILIRUBIN,URINE NEGATIVE (NEGATIVE); COLOR,URINE YELLOW; GLUCOSE, URINE NEGATIVE (NEGATIVE); KETONES,URINE NEGATIVE (NEGATIVE); LEUKOCYTE ESTERASE,URINE MODERATE (NEGATIVE); NITRITE,URINE NEGATIVE (NEGATIVE); PROTEIN,URINE NEGATIVE (NEGATIVE); URINE SPECIFIC GRAVITY 1.004; UROBILINOGEN,URINE NEGATIVE mg/dL (<2.0)
[2018-07-22] MEDS: POTASSIUM CHLORIDE 10 MEQ CAPSULE.ER PO SCH ×3 (12:22→18:32)
--- NOTE | 2018-07-22 21:01 | PDOC H&P ---
History of Present Illness Admission Date/PCP: 07/21/18 19:24 IAN MUÑOZ MD History of Present Illness: VALENTE MUNOZ is a 62 year old female, She was discharged from this hospital 07/18/2018, she came to emergency room for evaluation of vomiting and diarrhea, she was found to have hypokalemia, the ED physician advised hospital admission.She has had multiple hospital admission for UTI related problems, difficulty keeping food down with vomiting she has had multiple upper endoscopies, colonoscopies. She has chronic pain on opioid therapy, it is very possible that the GI symptoms she is experiencing could be related to the chronic opioid use, she was advised that she would not be treated with any IV opiate therapy on this admission. Past Medical History Cardiac Medical History: Reports: Congestive Heart Failure, Coronary Artery Disease, DVT, Myocardial Infarction, Hyperlipidema, Hypertension, Pulmonary Embolism Pulmonary Medical History: Reports: Bronchitis, Chronic Obstructive Pulmonary Disease (COPD) Endocrine Medical History: Reports: Hypothyroidism Malignancy Medical History: Reports: Cervical Cancer, Ovarian Cancer GI Medical History: Reports: Gastroesophageal Reflux Disease, Hiatal Hernia - Repaired Musculoskeltal Medical History: Reports: Arthritis - Lupus, Fibromyalgia - Lupus Psychiatric Medical History: Reports: Depression Hematology: Reports: Anemia - HX OF LOW NA AND K,LOW IRON WILL HAVE IRON TRANS FUSION 05/04. Infectious Medical History: Reports: Clostridium Difficile - Was negative in October2015. Not yet successfully collected stool, Methicillin-Resistant Staph Aureus, Vancomycin-Resistant Enterococci Past Surgical History Past Surgical History: Reports: Appendectomy, Cardiac Catheterization, Section, Cholecystectomy, Coronary Stent - 3 stents, Herniorrhaphy, Hysterectomy , Orthopedic Surgery - Right knee, bilateral knee replacements and hip replacement metal plate in, Tonsillectomy Social History Smoking Status: Former Smoker Number of Years Smokin Last Time Smoked: 2010 Frequency of Alcohol Use: None Hx Recreational Drug Use: No Drugs: None Hx Prescription Drug Abuse: No - Advance Directive Resuscitation Status: Full Code Family History Family History: Arthritis, COPD, Hyperlipidemia, Hypertension, Malignancy, Thyroid Disfunction Parental Family History Reviewed: Yes Children Family History Reviewed: Yes Sibling(s) Family History Reviewed.: Yes Medication/Allergy Home Medications: Aspirin [Aspirin 81 mg Chewable Tablet] 81 mg PO DAILY 07/08/18 Atorvastatin Calcium [Lipitor 40 mg Tablet] 40 mg PO DAILY 07/08/18 Carvedilol Phosphate [Coreg CR 40 mg Ext. Release Capsule] 40 mg PO DAILY Cyclobenzaprine HCl [Flexeril 10 mg Tablet] 10 mg PO TIDP PRN 07/08/18 Dexlansoprazole [Dexilant 60 mg Capsule] 60 mg PO BID 07/08/18 Furosemide [Lasix 40 mg Tablet] 40 mg PO DAILY 07/08/18 Hydrocodone Bitartrate [Zohydro ER] 40 mg PO Q12 07/08/18 Hydroxychloroquine Sulfate [Plaquenil 200 mg Tablet] 200 mg PO BID 07/08/18 Levothyroxine Sodium [Synthroid] 100 mcg PO Q6AM 07/08/18 Losartan Potassium [Cozaar 50 mg Tablet] 50 mg PO DAILY 07/08/18 [place]-3 Acid Ethyl Esters [Lovaza 1 gm Capsule] 2 gm PO BID 07/08/18 Pantoprazole Sodium [Protonix] 40 mg PO BID 07/08/18 Promethazine HCl [Phenergan 25 mg Tablet] 25 mg PO Q6HP PRN 07/08/18 Sertraline HCl [Zoloft 50 mg Tablet] 50 mg PO DAILY 07/08/18 Sucralfate [Carafate 1 gm Tablet] 1 gm PO QID 07/08/18 Zaleplon [Sonata] 10 mg PO HSP PRN 07/08/18 Allergies/Adverse Reactions: irbesartan [From Avapro] Allergy (Severe, Verified 04/02/18 18:38) swelling of face nitrofurantoin macrocrystalline [From Macrobid] Allergy (Severe, Verified 18:38) Generalized edema Penicillins Allergy (Severe, Verified 04/02/18 18:38) eyes swelled pregabalin [From Lyrica] Allergy (Severe, Verified 04/02/18 18:38) Equilibrium Issues venom-honey bee [bee venom (honey bee)] Allergy (Verified 04/02/18 18:38) Anaphylaxis Review of Systems Constitutional: ABSENT: chills, fever(s), headache(s), weight gain, weight loss Eyes: ABSENT: visual disturbances Ears: ABSENT: hearing changes Cardiovascular: ABSENT: chest pain, dyspnea on exertion, edema, orthropnea, palpitations Respiratory: ABSENT: cough, hemoptysis Gastrointestinal: PRESENT: diarrhea, nausea, vomiting Genitourinary: ABSENT: dysuria, hematuria Musculoskeletal: ABSENT: joint swelling Integumentary: ABSENT: rash, wounds Neurological: ABSENT: abnormal gait, abnormal speech, confusion, dizziness, focal weakness, syncope Psychiatric: ABSENT: anxiety, depression, homidical ideation, suicidal ideation Endocrine: ABSENT: cold intolerance, heat intolerance, menstrual abnormalities, polydipsia, polyuria Hematologic/Lymphatic: ABSENT: easy bleeding, easy bruising, lymphadenopathy Physical Exam Vital Signs: Temp Pulse Resp BP Pulse Ox 97.8 F 66 20 125/56 L 97 07/22/18 19:40 07/22/18 19:40 07/22/18 19:40 07/22/18 19:40 07/22/18 19:40 Intake & Output 07/21/18 07/22/18 07/23/18 06:59 06:59 06:59 Intake Total 2599 1600 Balance 2599 1600 Weight 84.1 kg General appearance: PRESENT: no acute distress Eye exam: PRESENT: PERRLA Ear exam: PRESENT: normal external ear exam Mouth exam: PRESENT: moist, tongue midline Neck exam: PRESENT: full ROM Respiratory exam: PRESENT: clear to auscultation martínez Cardiovascular exam: PRESENT: +S1, +S2 Vascular exam: PRESENT: normal capillary refill GI/Abdominal exam: PRESENT: normal bowel sounds, soft Rectal exam: PRESENT: deferred Neurological exam: PRESENT: alert Psychiatric exam: PRESENT: appropriate affect, normal mood Skin exam: PRESENT: dry, intact, warm Results Laboratory Results: 07/22/18 08:39 07/22/18 07/22/18 07/22/18 00:45 08:39 08:39 Sodium 139.8 Potassium 2.7 L* Chloride 105 Carbon Dioxide 24 Anion Gap 11 BUN 6 L Creatinine 0.88 Est GFR ( Amer) > 60 Est GFR (Non-Af Amer) > 60 Glucose 96 Lactic Acid 1.8 Calcium 8.2 L Magnesium 2.3 D Urine Color Urine Appearance Urine pH Ur Specific [place] Urine Protein Urine Glucose (UA) Urine Ketones Urine Blood Urine Nitrite Ur Leukocyte Esterase Urine WBC (Auto) Urine RBC (Auto) 07/22/18 10:15 Sodium Potassium Chloride Carbon Dioxide Anion Gap BUN Creatinine Est GFR ( Amer) Est GFR (Non-Af Amer) Glucose Lactic Acid Calcium Magnesium Urine Color YELLOW Urine Appearance CLEAR Urine pH 7.0 Ur Specific [place] 1.004 Urine Protein NEGATIVE Urine Glucose (UA) NEGATIVE Urine Ketones NEGATIVE Urine Blood NEGATIVE Urine Nitrite NEGATIVE Ur Leukocyte Esterase MODERATE H Urine WBC (Auto) 10 Urine RBC (Auto) 1 Assessment & Plan - Diagnosis (1) Hypokalemia Is this a current diagnosis for this admission?: Yes (2) Diarrhea Qualifiers: Diarrhea type: unspecified type Qualified Code(s): R19.7 - Diarrhea, unspecified Is this a current diagnosis for this admission?: Yes (3) Vomiting Qualifiers: Vomiting type: unspecified Vomiting Intractability: intractable Nausea presence: with nausea Qualified Code(s): R11.2 - Nausea with vomiting, unspecified Is this a current diagnosis for this admission?: Yes Plan: She was extensively evaluated for this vomiting this is protracted ongoing no specific etiology was found
[2018-07-23] MEDS: MORPHINE SULFATE 10 MG/ML INJ IV PRN ×2 (04:46→09:02)
[2018-07-23] MEDS: ONDANSETRON HCL INJ/PF 4 MG/2 ML SDV IV PRN ×5 (04:46→21:14)
[2018-07-23] MEDS: NORMAL SALINE 1000 ML 1,000 ML IV PRN (05:30)
[2018-07-23] MEDS: METRONIDAZOLE 500 MG/NS RTU 500 MG/100 ML RTUPB IV SCH (05:30)
[2018-07-23] MEDS ORDERED: CARVEDILOL PHOSPHATE 40 MG PO SCH (10:45)
[2018-07-23] MEDS ORDERED: HYDROCODONE BITARTRATE 40 MG PO SCH (10:45)
[2018-07-23] MEDS: HYDROXYCHLOROQUINE SULFATE 200 MG TABLET PO SCH ×2 (11:53→17:12)
[2018-07-23] MEDS: LEVOTHYROXINE SODIUM 0.1 MG TABLET PO SCH (11:53)
[2018-07-23] MEDS: OMEGA-3 ACID ETHYL ESTERS 1 GM CAPSULE PO SCH ×2 (11:53→17:12)
[2018-07-23] MEDS: SERTRALINE HCL 50 MG TABLET PO SCH (11:53)
[2018-07-23] MEDS: ATORVASTATIN CALCIUM 40 MG TABLET PO SCH (11:53)
[2018-07-23] MEDS: ASPIRIN 81 MG TABLET, CHEWABLE PO SCH (11:53)
[2018-07-23] MEDS: LOSARTAN POTASSIUM 50 MG TABLET PO SCH (11:53)
[2018-07-23 12:38] LABS: ALANINE AMINOTRANSFERASE 23 U/L (9-52); ALKALINE PHOSPHATASE 85 U/L (38-126); ANION GAP 7 (5-19); ASPARTATE AMINO TRANSFERASE 33 U/L (14-36); BILIRUBIN,DIRECT 0.3 mg/dL (0.0-0.4); BILIRUBIN,TOTAL 0.5 mg/dL (0.2-1.3); BLOOD UREA NITROGEN 7 mg/dL (7-20); CALCIUM 8.5 mg/dL (8.4-10.2); CARBON DIOXIDE 18 mmol/L (22-30); CHLORIDE 110 mmol/L (98-107); GLUCOSE 79 mg/dL (75-110); POTASSIUM 4.2 mmol/L (3.6-5.0); SODIUM 135.3 mmol/L (137-145); TOTAL PROTEIN 5.4 g/dL (6.3-8.2)
[2018-07-23] MEDS ORDERED: LANSOPRAZOLE 30 MG TAB.RAP.DR PO SCH (14:00)
[2018-07-23] MEDS: OXYCODONE-ACETAMINOPHEN 5-325 MG TABLET PO PRN ×2 (14:11→20:28)
[2018-07-23] MEDS: OXYCODONE HCL IR 5 MG TABLET PO PRN ×2 (14:11→20:29)
[2018-07-23] MEDS: PROMETHAZINE HCL 25 MG TABLET PO PRN ×2 (14:55→20:30)
[2018-07-23] MEDS: LANSOPRAZOLE 30 MG TAB.RAP.DR PO SCH (16:20)
[2018-07-23] MEDS: SUCRALFATE 1 GM TABLET PO SCH ×2 (16:20→21:13)
--- NOTE | 2018-07-23 19:49 | PDOC PROGRESS REPORT ---
Subjective Progress Note for:: 07/23/18 Subjective:: She was readmitted again yesterday for vomiting, this is a chronic problem for this patient she had gastric emptying study done back on September 15, 2011 that demonstrated delayed gastric emptying time Reason For Visit: VOMITING AND DEHYDRATION Physical Exam Vital Signs: Temp Pulse Resp BP Pulse Ox 98.3 F 78 16 174/61 H 96 07/23/18 15:44 07/23/18 15:44 07/23/18 15:44 07/23/18 15:44 07/23/18 15:44 Intake & Output 07/22/18 07/23/18 07/24/18 06:59 06:59 06:59 Intake Total 2599 2800 1318 Output Total 550 900 Balance 2599 2250 418 Weight 84.1 kg 86.1 kg General appearance: PRESENT: no acute distress Eye exam: PRESENT: PERRLA Respiratory exam: PRESENT: clear to auscultation martínez Cardiovascular exam: PRESENT: +S1, +S2 GI/Abdominal exam: PRESENT: soft Neurological exam: PRESENT: alert Results Laboratory Results: 07/23/18 12:15 07/23/18 07/23/18 10:21 12:15 Sodium 135.3 L Potassium 4.2 Chloride 110 H Carbon Dioxide 18 L Anion Gap 7 BUN 7 Creatinine 0.93 Est GFR ( Amer) > 60 Est GFR (Non-Af Amer) > 60 Glucose 79 Calcium 8.5 Total Bilirubin 0.5 AST 33 ALT 23 Alkaline Phosphatase 85 Total Protein 5.4 L Albumin 3.0 L Stool for White Cells NO WBCs SEEN Assessment & Plan - Diagnosis (1) Hypokalemia Is this a current diagnosis for this admission?: Yes (2) Diarrhea Qualifiers: Diarrhea type: unspecified type Qualified Code(s): R19.7 - Diarrhea, unspecified Is this a current diagnosis for this admission?: Yes (3) Hypokalemia Is this a current diagnosis for this admission?: Yes (4) Intractable vomiting Qualifiers: Vomiting type: unspecified Nausea presence: with nausea Qualified Code(s) : R11.2 - Nausea with vomiting, unspecified Is this a current diagnosis for this admission?: Yes
[2018-07-23] MEDS: CARVEDILOL 12.5 MG TABLET PO SCH (21:13)
[2018-07-23] MEDS ORDERED: (PENDING PHARMACY ID) (Doxepin Hcl [Silenor] 6 MG) PO SCH (22:00)
[2018-07-24] MEDS: ONDANSETRON HCL INJ/PF 4 MG/2 ML SDV IV PRN ×4 (01:09→20:01)
[2018-07-24] MEDS: LEVOTHYROXINE SODIUM 0.1 MG TABLET PO SCH (05:15)
[2018-07-24] MEDS: OXYCODONE HCL IR 5 MG TABLET PO PRN ×2 (05:15→23:44)
[2018-07-24] MEDS: OXYCODONE-ACETAMINOPHEN 5-325 MG TABLET PO PRN ×4 (05:15→23:45)
[2018-07-24] MEDS: LANSOPRAZOLE 30 MG TAB.RAP.DR PO SCH ×2 (05:15→17:11)
--- NOTE | 2018-07-24 09:10 | RADIOLOGY REPORT (SQ) ---
EXAM DESCRIPTION: L SPINE 2 VIEWS COMPLETED DATE/TIME: 07/24/2018 8:29 am REASON FOR STUDY: low back pain COMPARISON: 07/05/2011. Correlation: CT lumbar spine 06/01/2015, chest x-ray 04/02/2018. NUMBER OF VIEWS: Two views. TECHNIQUE: AP and lateral radiographic images acquired of the lumbar spine. LIMITATIONS: Overlying support apparatus. FINDINGS: Multilevel spondylosis status post posterior decompression and fusion L4- 5, L5-S1. Chron ic compression fracture L1. Alignment is unchanged. Thoracic neurostimulator position not significa ntly changed. IMPRESSION: Stable, chronic changes. TECHNICAL DOCUMENTATION: JOB ID: [id number] [employer]- All Rights Reserved Reading location - IP/workstation name: [email or web address]
[2018-07-24] MEDS: CARVEDILOL 12.5 MG TABLET PO SCH ×2 (09:12→21:36)
[2018-07-24] MEDS: ATORVASTATIN CALCIUM 40 MG TABLET PO SCH (09:12)
[2018-07-24] MEDS: LOSARTAN POTASSIUM 50 MG TABLET PO SCH (09:13)
[2018-07-24] MEDS: SUCRALFATE 1 GM TABLET PO SCH ×4 (09:13→21:36)
[2018-07-24] MEDS: ASPIRIN 81 MG TABLET, CHEWABLE PO SCH (09:13)
[2018-07-24] MEDS: OMEGA-3 ACID ETHYL ESTERS 1 GM CAPSULE PO SCH ×2 (09:13→17:11)
[2018-07-24] MEDS: HYDROXYCHLOROQUINE SULFATE 200 MG TABLET PO SCH ×2 (09:13→17:12)
[2018-07-24] MEDS: SERTRALINE HCL 50 MG TABLET PO SCH (09:22)
[2018-07-24] MEDS: PROMETHAZINE HCL 25 MG TABLET PO PRN ×2 (12:36→18:25)
[2018-07-24] MEDS ORDERED: ACETAMINOPHEN 325 MG TABLET PO PRN (16:19)
[2018-07-24 17:51] LABS: ABSOLUTE EOSINOPHILS # (AUTO) 0.1 10^3/uL (0.0-0.6); ABSOLUTE LYMPHOCYTES (AUTO) 1.7 10^3/uL (0.5-4.7); ABSOLUTE MONOCYTES (AUTO) 0.5 10^3/uL (0.1-1.4); ABSOLUTE NEUT (AUTO) 5.7 10^3/uL (1.7-8.2); BASOPHILS % (AUTO) 0.2 % (0-2); EOSINOPHILS % (AUTO) 0.8 % (0-6); HEMATOCRIT 35.2 % (36.0-47.0); HEMOGLOBIN 11.7 g/dL (12.0-15.5); LYMPHOCYTES % (AUTO) 21.4 % (13-45); MEAN CORPUSCULAR HEMOGLOBIN 26.1 pg (27.0-33.4); MEAN CORPUSCULAR HGB CONC 33.2 g/dL (32.0-36.0); MEAN CORPUSCULAR VOLUME 79 fl (80-97); MONOCYTES % (AUTO) 6.6 % (3-13); PLATELET COUNT 318 10^3/uL (150-450); RED BLOOD COUNT 4.48 10^6/uL (3.72-5.28); RED CELL DISTRIBUTION WIDTH 15.2 % (11.5-14.0); TOTAL CELLS COUNTED % (AUTO) 100 %
[2018-07-24 18:16] LABS: ANION GAP 13 (5-19); BLOOD UREA NITROGEN 6 mg/dL (7-20); CALCIUM 9.1 mg/dL (8.4-10.2); CARBON DIOXIDE 22 mmol/L (22-30); CHLORIDE 99 mmol/L (98-107); GLUCOSE 78 mg/dL (75-110); POTASSIUM 3.7 mmol/L (3.6-5.0); SODIUM 133.5 mmol/L (137-145)
[2018-07-25] MEDS: ONDANSETRON HCL INJ/PF 4 MG/2 ML SDV IV PRN ×6 (00:19→23:02)
[2018-07-25] MEDS: PROMETHAZINE HCL 25 MG TABLET PO PRN ×3 (01:44→21:07)
[2018-07-25] MEDS: LANSOPRAZOLE 30 MG TAB.RAP.DR PO SCH ×2 (06:10→17:27)
[2018-07-25] MEDS: LEVOTHYROXINE SODIUM 0.1 MG TABLET PO SCH (06:10)
[2018-07-25] MEDS: SUCRALFATE 1 GM TABLET PO SCH ×4 (08:41→21:07)
[2018-07-25] MEDS: OXYCODONE-ACETAMINOPHEN 5-325 MG TABLET PO PRN ×3 (08:41→21:06)
[2018-07-25] MEDS: OMEGA-3 ACID ETHYL ESTERS 1 GM CAPSULE PO SCH ×2 (08:59→17:27)
[2018-07-25] MEDS: LOSARTAN POTASSIUM 50 MG TABLET PO SCH (08:59)
[2018-07-25] MEDS: ATORVASTATIN CALCIUM 40 MG TABLET PO SCH (08:59)
[2018-07-25] MEDS: CARVEDILOL 12.5 MG TABLET PO SCH ×2 (08:59→21:07)
[2018-07-25] MEDS: SERTRALINE HCL 50 MG TABLET PO SCH (09:00)
[2018-07-25] MEDS: ASPIRIN 81 MG TABLET, CHEWABLE PO SCH (09:00)
[2018-07-25] MEDS: HYDROXYCHLOROQUINE SULFATE 200 MG TABLET PO SCH ×2 (09:00→17:27)
[2018-07-25] MEDS: PROMETHAZINE HCL 25 MG SUPP.RECT PR PRN (18:33)
[2018-07-25 18:53] LABS: HEMATOCRIT 38.7 % (36.0-47.0); HEMOGLOBIN 13.2 g/dL (12.0-15.5); MEAN CORPUSCULAR HEMOGLOBIN 26.3 pg (27.0-33.4); MEAN CORPUSCULAR HGB CONC 34.1 g/dL (32.0-36.0); MEAN CORPUSCULAR VOLUME 77 fl (80-97); PLATELET COUNT 364 10^3/uL (150-450); RED BLOOD COUNT 5.03 10^6/uL (3.72-5.28); RED CELL DISTRIBUTION WIDTH 15.4 % (11.5-14.0); WHITE BLOOD COUNT 11.3 10^3/uL (4.0-10.5)
[2018-07-25] MEDS ORDERED: DEXTROSE 40% GEL 15 GM TUBE X 2 PO PRN (18:53)
[2018-07-25] MEDS ORDERED: INSULIN REG, HUMAN 100 UNIT/ML 3 ML VIAL (PYX) SUBCUT PRN (18:53)
[2018-07-25] MEDS ORDERED: DEXTROSE 50%-WATER SYRINGE 25 GM/50 ML DOSE IV PRN (18:53)
[2018-07-25] MEDS ORDERED: DEXTROSE 50%-WATER SYRINGE 12.5 GM/25 ML DOSE IV PRN (18:53)
[2018-07-25] MEDS ORDERED: DEXTROSE 10%-WATER 1,000 ML IV PRN (18:53)
[2018-07-25] MEDS ORDERED: GLUCAGON,HUMAN RECOMB 1 MG INJ IM PRN (18:53)
[2018-07-25] MEDS ORDERED: DEXTROSE 40% GEL 15 GM TUBE PO PRN (18:53)
[2018-07-25 18:56] LABS: INTERNATIONAL RATION (INR) 1.09; PROTHROMBIN TIME 14.7 SEC (11.4-15.4)
--- NOTE | 2018-07-25 20:16 | PDOC PROGRESS REPORT ---
Subjective Progress Note for:: 07/25/18 Subjective:: Patient continues to vomit the cause is not clear multiple hospital admission for the same problem probably related to medication/opioid. Start TPN Reason For Visit: VOMITING AND DEHYDRATION Physical Exam Vital Signs: Temp Pulse Resp BP Pulse Ox 97.9 F 68 22 H 158/58 H 100 07/25/18 15:25 07/25/18 19:33 07/25/18 15:25 07/25/18 15:25 07/25/18 15:25 Intake & Output 07/24/18 07/25/18 07/26/18 06:59 06:59 06:59 Intake Total 2318 722 437 Output Total 1635 1150 Balance 243 -428 437 Weight 84.2 kg 82.2 kg General appearance: PRESENT: mild distress Eye exam: PRESENT: PERRLA Respiratory exam: PRESENT: clear to auscultation martínez Cardiovascular exam: PRESENT: +S1, +S2 GI/Abdominal exam: PRESENT: soft Neurological exam: PRESENT: alert Results Laboratory Results: 07/25/18 18:30 07/24/18 17:30 07/25/18 07/25/18 18:30 18:30 WBC 11.3 H RBC 5.03 Hgb 13.2 Hct 38.7 MCV 77 L MCH 26.3 L MCHC 34.1 RDW 15.4 H Plt Count 364 Magnesium 1.5 L Triglycerides 141 Impressions: Lumbar Spine X-Ray 07/23/18 00:00 IMPRESSION: Stable, chronic changes. Assessment & Plan - Diagnosis (1) Hypokalemia Is this a current diagnosis for this admission?: Yes (2) Diarrhea Qualifiers: Diarrhea type: unspecified type Qualified Code(s): R19.7 - Diarrhea, unspecified Is this a current diagnosis for this admission?: Yes (3) Intractable vomiting Qualifiers: Vomiting type: unspecified Nausea presence: with nausea Qualified Code(s) : R11.2 - Nausea with vomiting, unspecified Is this a current diagnosis for this admission?: Yes Plan: Start TPN, continue antiemetics
[2018-07-25] MEDS: OXYCODONE HCL IR 5 MG TABLET PO PRN (21:06)
[2018-07-26] MEDS: PROMETHAZINE HCL 25 MG SUPP.RECT PR PRN ×2 (00:53→14:41)
[2018-07-26] MEDS: ONDANSETRON HCL INJ/PF 4 MG/2 ML SDV IV PRN ×3 (03:05→17:11)
[2018-07-26] MEDS: OXYCODONE-ACETAMINOPHEN 5-325 MG TABLET PO PRN ×3 (05:21→19:16)
[2018-07-26] MEDS: LEVOTHYROXINE SODIUM 0.1 MG TABLET PO SCH (05:21)
[2018-07-26] MEDS: OXYCODONE HCL IR 5 MG TABLET PO PRN ×3 (05:21→19:17)
[2018-07-26 06:04] LABS: ALANINE AMINOTRANSFERASE 21 U/L (9-52); ALBUMIN 3.7 g/dL (3.5-5.0); ALKALINE PHOSPHATASE 93 U/L (38-126); ANION GAP 14 (5-19); ASPARTATE AMINO TRANSFERASE 21 U/L (14-36); BILIRUBIN,DIRECT 0.3 mg/dL (0.0-0.4); BILIRUBIN,TOTAL 0.5 mg/dL (0.2-1.3); BLOOD UREA NITROGEN 8 mg/dL (7-20); CALCIUM 9.1 mg/dL (8.4-10.2); CARBON DIOXIDE 22 mmol/L (22-30); CHLORIDE 101 mmol/L (98-107); GLUCOSE 89 mg/dL (75-110); PHOSPHORUS 3.3 mg/dL (2.5-4.5); POTASSIUM 3.5 mmol/L (3.6-5.0); SODIUM 137.3 mmol/L (137-145); TOTAL PROTEIN 6.3 g/dL (6.3-8.2)
[2018-07-26 06:11] LABS: PREALBUMIN 21.6 mg/dL (17.6-36.0)
[2018-07-26] MEDS: PROMETHAZINE HCL 25 MG TABLET PO PRN ×3 (08:25→19:17)
[2018-07-26] MEDS: SUCRALFATE 1 GM TABLET PO SCH ×4 (08:25→21:06)
[2018-07-26] MEDS: OMEGA-3 ACID ETHYL ESTERS 1 GM CAPSULE PO SCH ×2 (11:28→17:05)
[2018-07-26] MEDS: LOSARTAN POTASSIUM 50 MG TABLET PO SCH (11:28)
[2018-07-26] MEDS: ASPIRIN 81 MG TABLET, CHEWABLE PO SCH (11:29)
[2018-07-26] MEDS: ATORVASTATIN CALCIUM 40 MG TABLET PO SCH (11:29)
[2018-07-26] MEDS: SERTRALINE HCL 50 MG TABLET PO SCH (11:29)
[2018-07-26] MEDS: CARVEDILOL 12.5 MG TABLET PO SCH ×2 (11:29→21:05)
[2018-07-26] MEDS: HYDROXYCHLOROQUINE SULFATE 200 MG TABLET PO SCH ×2 (11:29→19:15)
[2018-07-26] MEDS: AMINO ACIDS 5%/D25W 1,000 ML IV PRN (17:14)
[2018-07-26] MEDS: PROMETHAZINE HCL INJ 25 MG/1 ML VIAL IV PRN (20:51)
--- NOTE | 2018-07-26 21:24 | PDOC PROGRESS REPORT ---
Subjective Progress Note for:: 07/26/18 Subjective:: She is not able to keep any food down she will be started on TPN Reason For Visit: VOMITING AND DEHYDRATION Physical Exam Vital Signs: Temp Pulse Resp BP Pulse Ox 97.6 F 63 20 162/60 H 100 07/26/18 15:17 07/26/18 20:55 07/26/18 15:17 07/26/18 15:17 07/26/18 15:17 Intake & Output 07/25/18 07/26/18 07/27/18 06:59 06:59 06:59 Intake Total 722 858 236 Output Total 1150 1000 Balance -428 -142 236 Weight 82.2 kg 81.7 kg General appearance: PRESENT: no acute distress Eye exam: PRESENT: PERRLA Respiratory exam: PRESENT: clear to auscultation martínez Cardiovascular exam: PRESENT: +S1, +S2 GI/Abdominal exam: PRESENT: soft Neurological exam: PRESENT: alert Results Laboratory Results: 07/25/18 18:30 07/26/18 05:11 07/26/18 05:11 Sodium 137.3 Potassium 3.5 L Chloride 101 Carbon Dioxide 22 Anion Gap 14 BUN 8 Creatinine 0.82 Est GFR ( Amer) > 60 Est GFR (Non-Af Amer) > 60 Glucose 89 Calcium 9.1 Phosphorus 3.3 Total Bilirubin 0.5 AST 21 ALT 21 Alkaline Phosphatase 93 Total Protein 6.3 Albumin 3.7 Prealbumin 21.6 07/23/18 10:21 Stool - Stool - Final 07/23/18 10:21 Stool - Stool Stool Culture - Final NO SALMONELLA, SHIGELLA, CAMPYLOBACTER, OR E.COLI 0157 RECOVERED. NEGATIVE FOR SHIGA TOXINS 1&2. Impressions: Lumbar Spine X-Ray 07/23/18 00:00 IMPRESSION: Stable, chronic changes. Assessment & Plan - Diagnosis (1) Hypokalemia Is this a current diagnosis for this admission?: Yes (2) Diarrhea Qualifiers: Diarrhea type: unspecified type Qualified Code(s): R19.7 - Diarrhea, unspecified Is this a current diagnosis for this admission?: Yes (3) Intractable vomiting Qualifiers: Vomiting type: unspecified Nausea presence: with nausea Qualified Code(s) : R11.2 - Nausea with vomiting, unspecified Is this a current diagnosis for this admission?: Yes
[2018-07-27] MEDS: ONDANSETRON HCL INJ/PF 4 MG/2 ML SDV IV PRN ×3 (01:09→13:26)
[2018-07-27] MEDS: PROMETHAZINE HCL INJ 25 MG/1 ML VIAL IV PRN ×4 (03:09→21:07)
[2018-07-27] MEDS: OXYCODONE HCL IR 5 MG TABLET PO PRN ×3 (05:25→21:08)
[2018-07-27] MEDS: LEVOTHYROXINE SODIUM 0.1 MG TABLET PO SCH (05:25)
[2018-07-27] MEDS: OXYCODONE-ACETAMINOPHEN 5-325 MG TABLET PO PRN ×3 (05:26→21:08)
[2018-07-27 08:31] LABS: ALANINE AMINOTRANSFERASE 13 U/L (9-52); ALBUMIN 3.7 g/dL (3.5-5.0); ALKALINE PHOSPHATASE 85 U/L (38-126); ANION GAP 15 (5-19); ASPARTATE AMINO TRANSFERASE 17 U/L (14-36); BILIRUBIN,DIRECT 0.2 mg/dL (0.0-0.4); BILIRUBIN,TOTAL 0.5 mg/dL (0.2-1.3); BLOOD UREA NITROGEN 12 mg/dL (7-20); CALCIUM 9.2 mg/dL (8.4-10.2); CARBON DIOXIDE 22 mmol/L (22-30); CHLORIDE 99 mmol/L (98-107); GLUCOSE 156 mg/dL (75-110); POTASSIUM 3.6 mmol/L (3.6-5.0); SODIUM 135.6 mmol/L (137-145); TOTAL PROTEIN 6.1 g/dL (6.3-8.2)
[2018-07-27 08:39] LABS: PREALBUMIN 23.3 mg/dL (17.6-36.0)
[2018-07-27] MEDS: SUCRALFATE 1 GM TABLET PO SCH ×4 (09:05→21:09)
[2018-07-27] MEDS: OMEGA-3 ACID ETHYL ESTERS 1 GM CAPSULE PO SCH ×2 (09:12→20:15)
[2018-07-27] MEDS: ATORVASTATIN CALCIUM 40 MG TABLET PO SCH (09:13)
[2018-07-27] MEDS: LOSARTAN POTASSIUM 50 MG TABLET PO SCH (09:13)
[2018-07-27] MEDS: CARVEDILOL 12.5 MG TABLET PO SCH ×2 (09:13→21:09)
[2018-07-27] MEDS: ASPIRIN 81 MG TABLET, CHEWABLE PO SCH (09:13)
[2018-07-27] MEDS: SERTRALINE HCL 50 MG TABLET PO SCH (09:14)
[2018-07-27] MEDS: HYDROXYCHLOROQUINE SULFATE 200 MG TABLET PO SCH ×2 (09:14→21:13)
--- NOTE | 2018-07-27 15:30 | PDOC PROGRESS REPORT ---
Subjective Progress Note for:: 07/27/18 Subjective:: She is on TPN still, complains of vomiting Reason For Visit: VOMITING AND DEHYDRATION Physical Exam Vital Signs: Temp Pulse Resp BP Pulse Ox 98.5 F 66 16 132/52 H 97 07/27/18 11:03 07/27/18 11:03 07/27/18 11:03 07/27/18 11:03 07/27/18 11:03 Intake & Output 07/26/18 07/27/18 07/28/18 06:59 06:59 06:59 Intake Total 858 436 Output Total 1000 300 Balance -142 136 Weight 81.7 kg 80.7 kg General appearance: PRESENT: no acute distress, well-developed, well-nourished Head exam: PRESENT: atraumatic, normocephalic Eye exam: PRESENT: conjunctiva pink, EOMI, PERRLA Ear exam: PRESENT: normal external ear exam Mouth exam: PRESENT: moist, tongue midline Neck exam: PRESENT: full ROM Cardiovascular exam: PRESENT: RRR, +S1, +S2 Pulses: PRESENT: normal dorsalis pedis pul, +2 pedal pulses bilateral Vascular exam: PRESENT: normal capillary refill GI/Abdominal exam: PRESENT: normal bowel sounds, soft Rectal exam: PRESENT: deferred Neurological exam: PRESENT: alert, awake, oriented to person, oriented to place , oriented to time, oriented to situation, CN II-XII grossly intact Psychiatric exam: PRESENT: appropriate affect, normal mood Skin exam: PRESENT: dry, intact, warm Results Laboratory Results: 07/25/18 18:30 07/27/18 07:57 07/27/18 07/27/18 05:34 07:57 Sodium Cancelled 135.6 L Potassium Cancelled 3.6 Chloride Cancelled 99 Carbon Dioxide Cancelled 22 Anion Gap Cancelled 15 BUN Cancelled 12 Creatinine Cancelled 0.74 Est GFR ( Amer) Cancelled > 60 Est GFR (Non-Af Amer) Cancelled > 60 Glucose Cancelled 156 H Calcium Cancelled 9.2 Phosphorus Cancelled 3.0 Total Bilirubin Cancelled 0.5 AST Cancelled 17 ALT Cancelled 13 Alkaline Phosphatase Cancelled 85 Total Protein Cancelled 6.1 L Albumin Cancelled 3.7 Prealbumin Cancelled 23.3 Impressions: Lumbar Spine X-Ray 07/23/18 00:00 IMPRESSION: Stable, chronic changes. Assessment & Plan - Diagnosis (1) Hypokalemia Is this a current diagnosis for this admission?: Yes (2) Diarrhea Qualifiers: Diarrhea type: unspecified type Qualified Code(s): R19.7 - Diarrhea, unspecified Is this a current diagnosis for this admission?: Yes (3) Intractable vomiting Qualifiers: Vomiting type: unspecified Nausea presence: with nausea Qualified Code(s) : R11.2 - Nausea with vomiting, unspecified Is this a current diagnosis for this admission?: Yes
[2018-07-27] MEDS: AMINO ACIDS 5%/D25W 1,000 ML IV PRN (18:04)
[2018-07-27] MEDS: NYSTATIN CREAM 15 GM TP SCH ×2 (20:33→21:09)
[2018-07-28] MEDS: PROMETHAZINE HCL INJ 25 MG/1 ML VIAL IV PRN ×4 (03:29→20:50)
[2018-07-28] MEDS: ONDANSETRON HCL INJ/PF 4 MG/2 ML SDV IV PRN ×5 (05:14→23:47)
[2018-07-28] MEDS: LEVOTHYROXINE SODIUM 0.1 MG TABLET PO SCH (05:58)
[2018-07-28 07:26] LABS: ALANINE AMINOTRANSFERASE 12 U/L (9-52); ALBUMIN 3.6 g/dL (3.5-5.0); ALKALINE PHOSPHATASE 77 U/L (38-126); ANION GAP 14 (5-19); ASPARTATE AMINO TRANSFERASE 15 U/L (14-36); BILIRUBIN,DIRECT 0.4 mg/dL (0.0-0.4); BILIRUBIN,TOTAL 0.6 mg/dL (0.2-1.3); BLOOD UREA NITROGEN 18 mg/dL (7-20); CALCIUM 9.4 mg/dL (8.4-10.2); CARBON DIOXIDE 24 mmol/L (22-30); CHLORIDE 98 mmol/L (98-107); GLUCOSE 124 mg/dL (75-110); PHOSPHORUS 3.2 mg/dL (2.5-4.5); POTASSIUM 3.5 mmol/L (3.6-5.0); SODIUM 136.2 mmol/L (137-145); TOTAL PROTEIN 6.1 g/dL (6.3-8.2)
[2018-07-28 07:32] LABS: PREALBUMIN 25.3 mg/dL (17.6-36.0)
[2018-07-28] MEDS: SUCRALFATE 1 GM TABLET PO SCH ×4 (09:17→21:57)
[2018-07-28] MEDS: NYSTATIN CREAM 15 GM TP SCH ×4 (09:17→21:58)
[2018-07-28] MEDS: OMEGA-3 ACID ETHYL ESTERS 1 GM CAPSULE PO SCH ×2 (09:23→17:09)
[2018-07-28] MEDS: HYDROXYCHLOROQUINE SULFATE 200 MG TABLET PO SCH ×2 (09:57→17:16)
[2018-07-28] MEDS: ASPIRIN 81 MG TABLET, CHEWABLE PO SCH (09:57)
[2018-07-28] MEDS: SERTRALINE HCL 50 MG TABLET PO SCH (09:57)
[2018-07-28] MEDS: ATORVASTATIN CALCIUM 40 MG TABLET PO SCH (09:57)
[2018-07-28] MEDS: LOSARTAN POTASSIUM 50 MG TABLET PO SCH (09:57)
[2018-07-28] MEDS: CARVEDILOL 12.5 MG TABLET PO SCH ×2 (09:57→21:58)
--- NOTE | 2018-07-28 15:37 | PDOC PROGRESS REPORT ---
Subjective Progress Note for:: 07/28/18 Subjective:: She has seen by the bedside still vomiting Reason For Visit: VOMITING AND DEHYDRATION Physical Exam Vital Signs: Temp Pulse Resp BP Pulse Ox 98.7 F 71 16 175/63 H 97 07/28/18 11:51 07/28/18 14:00 07/28/18 11:51 07/28/18 11:51 07/28/18 11:51 Intake & Output 07/27/18 07/28/18 07/29/18 06:59 06:59 06:59 Intake Total 436 1645 Output Total 300 900 Balance 136 745 Weight 80.7 kg 82.5 kg General appearance: PRESENT: no acute distress Eye exam: PRESENT: PERRLA Respiratory exam: PRESENT: clear to auscultation martínez Cardiovascular exam: PRESENT: +S1, +S2 GI/Abdominal exam: PRESENT: soft Neurological exam: PRESENT: alert, CN II-XII grossly intact Results Laboratory Results: 07/25/18 18:30 07/28/18 05:51 07/28/18 05:51 Sodium 136.2 L Potassium 3.5 L Chloride 98 Carbon Dioxide 24 Anion Gap 14 BUN 18 Creatinine 0.79 Est GFR ( Amer) > 60 Est GFR (Non-Af Amer) > 60 Glucose 124 H Calcium 9.4 Phosphorus 3.2 Total Bilirubin 0.6 AST 15 ALT 12 Alkaline Phosphatase 77 Total Protein 6.1 L Albumin 3.6 Prealbumin 25.3 Impressions: Lumbar Spine X-Ray 07/23/18 00:00 IMPRESSION: Stable, chronic changes. Assessment & Plan - Diagnosis (1) Hypokalemia Is this a current diagnosis for this admission?: Yes (2) Diarrhea Qualifiers: Diarrhea type: unspecified type Qualified Code(s): R19.7 - Diarrhea, unspecified Is this a current diagnosis for this admission?: Yes (3) Intractable vomiting Qualifiers: Vomiting type: unspecified Nausea presence: with nausea Qualified Code(s) : R11.2 - Nausea with vomiting, unspecified Is this a current diagnosis for this admission?: Yes
[2018-07-28] MEDS: KETOROLAC TROMETHAMINE INJ/PF 30 MG/1 ML SDV IV PRN ×2 (16:33→23:47)
[2018-07-28] MEDS: AMINO ACIDS 5%/D25W 1,000 ML IV PRN (17:10)
[2018-07-29] MEDS: PROMETHAZINE HCL INJ 25 MG/1 ML VIAL IV PRN ×3 (03:29→18:32)
[2018-07-29] MEDS: ONDANSETRON HCL INJ/PF 4 MG/2 ML SDV IV PRN ×4 (04:55→21:35)
[2018-07-29] MEDS: LEVOTHYROXINE SODIUM 0.1 MG TABLET PO SCH (05:15)
[2018-07-29 05:20] LABS: ALANINE AMINOTRANSFERASE 13 U/L (9-52); ALBUMIN 3.5 g/dL (3.5-5.0); ALKALINE PHOSPHATASE 77 U/L (38-126); ANION GAP 15 (5-19); ASPARTATE AMINO TRANSFERASE 14 U/L (14-36); BILIRUBIN,DIRECT 0.3 mg/dL (0.0-0.4); BILIRUBIN,TOTAL 0.7 mg/dL (0.2-1.3); BLOOD UREA NITROGEN 22 mg/dL (7-20); CALCIUM 9.3 mg/dL (8.4-10.2); CARBON DIOXIDE 22 mmol/L (22-30); CHLORIDE 97 mmol/L (98-107); GLUCOSE 121 mg/dL (75-110); PHOSPHORUS 3.2 mg/dL (2.5-4.5); POTASSIUM 3.4 mmol/L (3.6-5.0); SODIUM 133.9 mmol/L (137-145)
[2018-07-29 05:27] LABS: PREALBUMIN 26.5 mg/dL (17.6-36.0)
[2018-07-29 06:30] LABS: INTERNATIONAL RATION (INR) 0.94
[2018-07-29] MEDS: KETOROLAC TROMETHAMINE INJ/PF 30 MG/1 ML SDV IV PRN (07:52)
[2018-07-29] MEDS: SUCRALFATE 1 GM TABLET PO SCH ×4 (08:25→21:36)
[2018-07-29] MEDS: OXYCODONE-ACETAMINOPHEN 5-325 MG TABLET PO PRN ×2 (09:47→16:06)
[2018-07-29] MEDS: SERTRALINE HCL 50 MG TABLET PO SCH (09:47)
[2018-07-29] MEDS: LOSARTAN POTASSIUM 50 MG TABLET PO SCH (09:47)
[2018-07-29] MEDS: ASPIRIN 81 MG TABLET, CHEWABLE PO SCH (09:47)
[2018-07-29] MEDS: CARVEDILOL 12.5 MG TABLET PO SCH ×2 (09:48→21:36)
[2018-07-29] MEDS: OMEGA-3 ACID ETHYL ESTERS 1 GM CAPSULE PO SCH ×2 (09:48→18:09)
[2018-07-29] MEDS: OXYCODONE HCL IR 5 MG TABLET PO PRN ×3 (09:48→22:07)
[2018-07-29] MEDS: ATORVASTATIN CALCIUM 40 MG TABLET PO SCH (09:48)
[2018-07-29] MEDS: NYSTATIN CREAM 15 GM TP SCH ×4 (09:49→21:44)
[2018-07-29] MEDS: HYDROXYCHLOROQUINE SULFATE 200 MG TABLET PO SCH ×2 (09:50→18:10)
[2018-07-29] MEDS ORDERED: FAT EMULSIONS 250 ML IV SCH (10:00)
[2018-07-29] MEDS: AMINO ACIDS 5%/D25W 1,000 ML IV PRN (16:51)
--- NOTE | 2018-07-29 21:19 | PDOC PROGRESS REPORT ---
Subjective Progress Note for:: 07/29/18 Subjective:: I spoke to [facility] today about this patient regarding her condition and the need for transfer the transfer was declined it was suggested the patient stay here in this hospital Reason For Visit: VOMITING AND DEHYDRATION Physical Exam Vital Signs: Temp Pulse Resp BP Pulse Ox 98.2 F 72 20 131/54 H 99 07/29/18 20:25 07/29/18 20:25 07/29/18 20:25 07/29/18 20:25 07/29/18 20:25 Intake & Output 07/28/18 07/29/18 07/30/18 06:59 06:59 06:59 Intake Total 1645 1218 1750 Output Total 900 600 900 Balance 745 618 850 Weight 82.5 kg 82.4 kg General appearance: PRESENT: no acute distress Eye exam: PRESENT: PERRLA Respiratory exam: PRESENT: clear to auscultation martínez Cardiovascular exam: PRESENT: +S1, +S2 GI/Abdominal exam: PRESENT: soft Neurological exam: PRESENT: alert Results Laboratory Results: 07/25/18 18:30 07/29/18 04:10 07/29/18 07/29/18 04:10 19:55 Sodium 133.9 L Potassium 3.4 L Chloride 97 L Carbon Dioxide 22 Anion Gap 15 BUN 22 H Creatinine 0.83 Est GFR ( Amer) > 60 Est GFR (Non-Af Amer) > 60 Glucose 121 H Calcium 9.3 Phosphorus 3.2 Magnesium 1.7 Total Bilirubin 0.7 AST 14 ALT 13 Alkaline Phosphatase 77 Total Protein 6.0 L Albumin 3.5 Prealbumin 26.5 Triglycerides 154 H Impressions: Lumbar Spine X-Ray 07/23/18 00:00 IMPRESSION: Stable, chronic changes. Assessment & Plan - Diagnosis (1) Intractable vomiting Qualifiers: Vomiting type: unspecified Nausea presence: with nausea Qualified Code(s) : R11.2 - Nausea with vomiting, unspecified Is this a current diagnosis for this admission?: Yes (2) Hypokalemia Is this a current diagnosis for this admission?: Yes (3) Diarrhea Qualifiers: Diarrhea type: unspecified type Qualified Code(s): R19.7 - Diarrhea, unspecified Is this a current diagnosis for this admission?: Yes
--- NOTE | 2018-07-29 21:28 | PDOC DISCHARGE SUMMARY ---
General - Admit/Disc Date/PCP Admission Date/Primary Care Provider: 07/21/18 19:24 IAN MUÑOZ MD Discharge Date: 07/30/18 - Discharge Diagnosis (1) Hypokalemia Is this a current diagnosis for this admission?: Yes (2) Diarrhea Is this a current diagnosis for this admission?: Yes (3) Intractable vomiting Is this a current diagnosis for this admission?: Yes - Additional Information Resuscitation Status: Full Code Home Medications: Atorvastatin Calcium [Lipitor 40 mg Tablet] 40 mg PO DAILY 07/08/18 Carvedilol Phosphate [Coreg CR 40 mg Ext. Release Capsule] 40 mg PO DAILY Dexlansoprazole [Dexilant 60 mg Capsule] 60 mg PO BID 07/08/18 Hydrocodone Bitartrate [Zohydro ER] 40 mg PO Q12 07/08/18 Hydroxychloroquine Sulfate [Plaquenil 200 mg Tablet] 200 mg PO BID 07/08/18 Levothyroxine Sodium [Synthroid] 100 mcg PO Q6AM 07/08/18 Losartan Potassium [Cozaar 50 mg Tablet] 50 mg PO DAILY 07/08/18 [place]-3 Acid Ethyl Esters [Lovaza 1 gm Capsule] 2 gm PO BID 07/08/18 Pantoprazole Sodium [Protonix] 40 mg PO BID 07/08/18 Sertraline HCl [Zoloft 50 mg Tablet] 50 mg PO DAILY 07/08/18 Sucralfate [Carafate 1 gm Tablet] 1 gm PO QID 07/08/18 Zaleplon [Sonata] 10 mg PO HSP PRN 07/08/18 Physical Exam Vital Signs: Temp Pulse Resp BP Pulse Ox 98.2 F 72 20 131/54 H 99 07/29/18 20:25 07/29/18 20:25 07/29/18 20:25 07/29/18 20:25 07/29/18 20:25 Intake & Output 07/28/18 07/29/18 07/30/18 06:59 06:59 06:59 Intake Total 1645 1218 1750 Output Total 900 600 900 Balance 745 618 850 Weight 82.5 kg 82.4 kg Results Laboratory Results: 07/25/18 18:30 07/29/18 04:10 11/19/18 11/19/18 04:10 19:55 Sodium 133.9 L Potassium 3.4 L Chloride 97 L Carbon Dioxide 22 Anion Gap 15 BUN 22 H Creatinine 0.83 Est GFR ( Amer) > 60 Est GFR (Non-Af Amer) > 60 Glucose 121 H Calcium 9.3 Phosphorus 3.2 Magnesium 1.7 Total Bilirubin 0.7 AST 14 ALT 13 Alkaline Phosphatase 77 Total Protein 6.0 L Albumin 3.5 Prealbumin 26.5 Triglycerides 154 H Impressions: Lumbar Spine X-Ray 07/23/18 00:00 IMPRESSION: Stable, chronic changes.
[2018-07-30] MEDS: PROMETHAZINE HCL INJ 25 MG/1 ML VIAL IV PRN ×2 (00:32→09:18)
[2018-07-30] MEDS: OXYCODONE-ACETAMINOPHEN 5-325 MG TABLET PO PRN (04:03)
[2018-07-30] MEDS: ONDANSETRON HCL INJ/PF 4 MG/2 ML SDV IV PRN (04:03)
[2018-07-30] MEDS: LEVOTHYROXINE SODIUM 0.1 MG TABLET PO SCH (05:00)
[2018-07-30] MEDS: SUCRALFATE 1 GM TABLET PO SCH ×2 (08:25→12:19)
[2018-07-30] MEDS: ATORVASTATIN CALCIUM 40 MG TABLET PO SCH (09:17)
[2018-07-30] MEDS: OMEGA-3 ACID ETHYL ESTERS 1 GM CAPSULE PO SCH (09:17)
[2018-07-30] MEDS: SERTRALINE HCL 50 MG TABLET PO SCH (09:17)
[2018-07-30] MEDS: ASPIRIN 81 MG TABLET, CHEWABLE PO SCH (09:17)
[2018-07-30] MEDS: CARVEDILOL 12.5 MG TABLET PO SCH (09:17)
[2018-07-30] MEDS: OXYCODONE HCL IR 5 MG TABLET PO PRN (09:17)
[2018-07-30] MEDS: LOSARTAN POTASSIUM 50 MG TABLET PO SCH (09:18)
[2018-07-30] MEDS: NYSTATIN CREAM 15 GM TP SCH (09:19)
[2018-07-30] MEDS: HYDROXYCHLOROQUINE SULFATE 200 MG TABLET PO SCH (09:20)
[2018-07-30 13:11] VITALS: BP 107/54
== END 2018-07-30 13:37 | disposition home or self-care (01) | DRG 641 ==
LOC: ER 16:44 → EH 19:24 → 3S 23:03 → 3N 07-28 22:17
PROVIDERS: ADMIT Internal Medicine Geriatric Medicine; ATTEND Internal Medicine
PROC: 3E0336Z Introduction of Nutritional Substance into Peripheral Vein, Percutaneous Approach (ICD-10-PCS; principal; 2018-07-26)
DX: E87.6 Hypokalemia (principal); E86.0 Dehydration; I25.10 Atherosclerotic heart disease of native coronary artery without angina pectoris; J44.9 Chronic obstructive pulmonary disease, unspecified; I25.2 Old myocardial infarction; I11.0 Hypertensive heart disease with heart failure; I50.9 Heart failure, unspecified; E03.9 Hypothyroidism, unspecified; K21.9 Gastro-esophageal reflux disease without esophagitis; M32.9 Systemic lupus erythematosus, unspecified; M79.7 Fibromyalgia; R11.2 Nausea with vomiting, unspecified; E87.2 Acidosis; R19.7 Diarrhea, unspecified; Z86.718 Personal history of other venous thrombosis and embolism; Z88.0 Allergy status to penicillin; Z88.6 Allergy status to analgesic agent; Z88.8 Allergy status to other drugs, medicaments and biological substances; Z86.14 Personal history of Methicillin resistant Staphylococcus aureus infection; G89.29 Other chronic pain; F32.9 Major depressive disorder, single episode, unspecified; Z90.49 Acquired absence of other specified parts of digestive tract; Z95.5 Presence of coronary angioplasty implant and graft; Z90.710 Acquired absence of both cervix and uterus; Z86.711 Personal history of pulmonary embolism; Z96.653 Presence of artificial knee joint, bilateral; Z96.649 Presence of unspecified artificial hip joint; Z79.899 Other long term (current) drug therapy; Z85.41 Personal history of malignant neoplasm of cervix uteri; Z85.43 Personal history of malignant neoplasm of ovary; Z87.891 Personal history of nicotine dependence; Z79.82 Long term (current) use of aspirin; Z87.440 Personal history of urinary (tract) infections; Z91.030 Bee allergy status; Z82.61 Family history of arthritis; Z83.438 Family history of other disorder of lipoprotein metabolism and other lipidemia; Z82.49 Family history of ischemic heart disease and other diseases of the circulatory system; Z80.9 Family history of malignant neoplasm, unspecified
CPT/HCPCS: 36415; 72100; 80048; 80053; 81001; 82962; 83605; 83690; 83735; 84100; 84134; 84478; 84484; 85025; 85027; 85610; 87045; 87205; 87493; 89055; 93005; 93010; 96374; 96375; 96376; 99291; J0780; J1170; J1885; J2270; J2405; J2550; J3475; J3480; J3490; J7030; J7120

== ENCOUNTER 2018-08-19 18:44 | Inpatient (IN) | payer MEDICARE, OTHER ==
[2018-08-19] MEDS ORDERED: (PENDING PHARMACY ID) (Zaleplon [Sonata] 10 MG) PO PRN (21:22)
--- NOTE | 2018-08-19 21:25 | PDOC H&P ---
History of Present Illness Admission Date/PCP: 08/19/18 18:44 IAN MUÑOZ MD History of Present Illness: VALENTE MUNOZ is a 63 year old female, She was admitted because of persistent vomiting she has gastroparesis most likely due to chronic opioid use. She has had multiple hospital admission for the same problem she was brought in essentially for hydration she may need to have outpatient infusion set up Past Medical History Cardiac Medical History: Reports: Congestive Heart Failure, Coronary Artery Disease, DVT, Myocardial Infarction, Hyperlipidema, Hypertension, Pulmonary Embolism Pulmonary Medical History: Reports: Bronchitis, Chronic Obstructive Pulmonary Disease (COPD) Endocrine Medical History: Reports: Hypothyroidism Malignancy Medical History: Reports: Cervical Cancer, Ovarian Cancer GI Medical History: Reports: Gastroesophageal Reflux Disease, Hiatal Hernia - Repaired Musculoskeltal Medical History: Reports: Arthritis - Lupus, Fibromyalgia - Lupus Psychiatric Medical History: Reports: Depression Hematology: Reports: Anemia - HX OF LOW NA AND K,LOW IRON WILL HAVE IRON TRANS FUSION 05/04. Infectious Medical History: Reports: Clostridium Difficile - Was negative in October2015. Not yet successfully collected stool, Methicillin-Resistant Staph Aureus, Vancomycin-Resistant Enterococci Past Surgical History Past Surgical History: Reports: Appendectomy, Cardiac Catheterization, Section, Cholecystectomy, Coronary Stent - 3 stents, Herniorrhaphy, Hysterectomy , Orthopedic Surgery - Right knee, bilateral knee replacements and hip replacement metal plate in, Tonsillectomy Social History Frequency of Alcohol Use: None Hx Recreational Drug Use: No Drugs: None Hx Prescription Drug Abuse: No Family History Family History: Arthritis, COPD, Hyperlipidemia, Hypertension, Malignancy, Thyroid Disfunction Parental Family History Reviewed: Yes Children Family History Reviewed: Yes Sibling(s) Family History Reviewed.: Yes Medication/Allergy Home Medications: Atorvastatin Calcium [Lipitor 40 mg Tablet] 40 mg PO QHS 07/08/18 Hydrocodone Bitartrate [Zohydro ER] 40 mg PO Q12 07/08/18 Hydroxychloroquine Sulfate [Plaquenil 200 mg Tablet] 200 mg PO BID 07/08/18 Levothyroxine Sodium [Synthroid] 100 mcg PO Q6AM 07/08/18 Pantoprazole Sodium [Protonix] 40 mg PO BID 07/08/18 Sertraline HCl [Zoloft 50 mg Tablet] 50 mg PO DAILY 07/08/18 Sucralfate [Carafate 1 gm Tablet] 1 gm PO QID 07/08/18 Zaleplon [Sonata] 10 mg PO HSP PRN 07/08/18 Bethanechol Chloride [Urecholine] 10 mg PO BID 08/19/18 Clopidogrel Bisulfate [Plavix 75 mg Tablet] 75 mg PO DAILY 08/19/18 Cyclobenzaprine HCl [Flexeril 10 mg Tablet] 10 mg PO TIDP PRN 08/19/18 Gabapentin [Neurontin] 600 mg PO TID 08/19/18 Lidocaine [Lidoderm 5% (700 mg) Transdermal Patch] 1 patch TP DAILY 08/19/18 Nitroglycerin [Nitrostat 0.4 mg (1/150 Gr) Tabs 25/Bottle] 1 tab SL Q5MP PRN 06/27 Ondansetron [Zofran Odt 4 mg Tablet] 4 mg PO Q6HP PRN 08/19/18 Oxycodone HCl/Acetaminophen [Percocet 10-325 Mg Tablet] 1 each PO Q6HP PRN 08/19 Promethazine HCl [Phenergan 25 mg Tablet] 25 mg PO Q6HP PRN 08/19/18 Allergies/Adverse Reactions: irbesartan [From Avapro] Allergy (Severe, Verified 08/19/18 20:40) swelling of face nitrofurantoin macrocrystalline [From Macrobid] Allergy (Severe, Verified 20:40) Generalized edema Penicillins Allergy (Severe, Verified 08/19/18 20:40) eyes swelled pregabalin [From Lyrica] Allergy (Severe, Verified 08/19/18 20:40) Equilibrium Issues venom-honey bee [bee venom (honey bee)] Allergy (Verified 08/19/18 20:40) Anaphylaxis Review of Systems Constitutional: ABSENT: chills, fever(s), headache(s), weight gain, weight loss Eyes: ABSENT: visual disturbances Ears: ABSENT: hearing changes Cardiovascular: ABSENT: chest pain, dyspnea on exertion, edema, orthropnea, palpitations Respiratory: ABSENT: cough, hemoptysis Gastrointestinal: PRESENT: nausea, vomiting Genitourinary: ABSENT: dysuria, hematuria Musculoskeletal: ABSENT: joint swelling Integumentary: ABSENT: rash, wounds Neurological: ABSENT: abnormal gait, abnormal speech, confusion, dizziness, focal weakness, syncope Psychiatric: ABSENT: anxiety, depression, homidical ideation, suicidal ideation Endocrine: ABSENT: cold intolerance, heat intolerance, menstrual abnormalities, polydipsia, polyuria Hematologic/Lymphatic: ABSENT: easy bleeding, easy bruising, lymphadenopathy Physical Exam General appearance: PRESENT: no acute distress Head exam: PRESENT: atraumatic, normocephalic Eye exam: PRESENT: conjunctiva pink, EOMI, PERRLA Ear exam: PRESENT: normal external ear exam Mouth exam: PRESENT: moist, tongue midline Neck exam: PRESENT: full ROM Respiratory exam: PRESENT: clear to auscultation martínez Cardiovascular exam: PRESENT: RRR, +S1, +S2 Vascular exam: PRESENT: normal capillary refill GI/Abdominal exam: PRESENT: normal bowel sounds, soft Rectal exam: PRESENT: deferred Neurological exam: PRESENT: alert Psychiatric exam: PRESENT: appropriate affect, normal mood Skin exam: PRESENT: dry, intact, warm Assessment & Plan - Diagnosis (1) Gastroparesis Is this a current diagnosis for this admission?: Yes (2) Intractable vomiting Qualifiers: Vomiting type: unspecified Nausea presence: with nausea Qualified Code(s) : R11.2 - Nausea with vomiting, unspecified Is this a current diagnosis for this admission?: Yes
[2018-08-19] MEDS ORDERED: BETHANECHOL CHLORIDE 10 MG PO SCH (21:30)
[2018-08-19] MEDS: ONDANSETRON 4 MG TAB.RAPDIS PO PRN (22:47)
[2018-08-19] MEDS: ATORVASTATIN CALCIUM 40 MG TABLET PO SCH (22:47)
[2018-08-19] MEDS: HYDROMORPHONE HCL INJ/PF 2 MG/ML AMPULE IV PRN (22:48)
[2018-08-19] MEDS: METOCLOPRAMIDE HCL INJ/PF 10 MG/2 ML SDV IV SCH (22:48)
[2018-08-19] MEDS: CLOPIDOGREL BISULFATE 75 MG TABLET PO SCH (22:50)
[2018-08-19 23:07] LABS: ABSOLUTE BASOPHILS # (AUTO) 0.1 10^3/uL (0.0-0.2); ABSOLUTE EOSINOPHILS # (AUTO) 0.1 10^3/uL (0.0-0.6); ABSOLUTE LYMPHOCYTES (AUTO) 2.7 10^3/uL (0.5-4.7); ABSOLUTE MONOCYTES (AUTO) 0.7 10^3/uL (0.1-1.4); ABSOLUTE NEUT (AUTO) 6.4 10^3/uL (1.7-8.2); BASOPHILS % (AUTO) 0.5 % (0-2); EOSINOPHILS % (AUTO) 0.6 % (0-6); HEMATOCRIT 38.1 % (36.0-47.0); HEMOGLOBIN 13.1 g/dL (12.0-15.5); LYMPHOCYTES % (AUTO) 27.2 % (13-45); MEAN CORPUSCULAR HEMOGLOBIN 26.9 pg (27.0-33.4); MEAN CORPUSCULAR HGB CONC 34.5 g/dL (32.0-36.0); MEAN CORPUSCULAR VOLUME 78 fl (80-97); MONOCYTES % (AUTO) 7.2 % (3-13); PLATELET COUNT 424 10^3/uL (150-450); RED BLOOD COUNT 4.89 10^6/uL (3.72-5.28); RED CELL DISTRIBUTION WIDTH 15.4 % (11.5-14.0); SEGMENTED NEUTROPHILS % (AUTO) 64.5 % (42-78); TOTAL CELLS COUNTED % (AUTO) 100 %; WHITE BLOOD COUNT 9.9 10^3/uL (4.0-10.5)
[2018-08-19 23:38] LABS: ALANINE AMINOTRANSFERASE 15 U/L (9-52); ALBUMIN 3.6 g/dL (3.5-5.0); ALKALINE PHOSPHATASE 114 U/L (38-126); ANION GAP 13 (5-19); ASPARTATE AMINO TRANSFERASE 15 U/L (14-36); BILIRUBIN,DIRECT 0.3 mg/dL (0.0-0.4); BILIRUBIN,TOTAL 0.4 mg/dL (0.2-1.3); BLOOD UREA NITROGEN 13 mg/dL (7-20); CALCIUM 9.6 mg/dL (8.4-10.2); CARBON DIOXIDE 21 mmol/L (22-30); CHLORIDE 100 mmol/L (98-107); GLUCOSE 99 mg/dL (75-110); POTASSIUM 3.8 mmol/L (3.6-5.0); SODIUM 134.3 mmol/L (137-145); TOTAL PROTEIN 6.4 g/dL (6.3-8.2)
[2018-08-19] MEDS: NORMAL SALINE IV PRN ×2 (23:44)
[2018-08-19] MEDS: POTASSIUM CHLORIDE IV PRN ×2 (23:44)
[2018-08-20 02:31] LABS: APPEARANCE,URINE SLIGHTLY-CLOUDY; BILIRUBIN,URINE NEGATIVE (NEGATIVE); COLOR,URINE YELLOW; GLUCOSE, URINE NEGATIVE (NEGATIVE); KETONES,URINE NEGATIVE (NEGATIVE); LEUKOCYTE ESTERASE,URINE LARGE (NEGATIVE); NITRITE,URINE NEGATIVE (NEGATIVE); PROTEIN,URINE NEGATIVE (NEGATIVE); URINE SPECIFIC GRAVITY 1.011; UROBILINOGEN,URINE NEGATIVE mg/dL (<2.0)
--- NOTE | 2018-08-20 03:57 | Physician Advisory Note ---
Physician Advisor ProgressNote .: Pursuant to the plan for Yesy Gatica, I have reviewed the medical record for this patient. Physician Advisor Statement: Please consider documenting, if you agree: 1. Details of the vomiting this time - frequency, ability to take po & when, ... 2. "Chronic diastolic CHF w/mod AR & mild pulmonary hypertension" 3. "opiate dependence" 4. Any ongoing significant clinical issue that requires continuing hospitalization as of 12/11 PM (which may make change to Inpt status appropriate ) Status: approp'ly Obs to start. See above. CK
[2018-08-20] MEDS: LEVOTHYROXINE SODIUM 0.1 MG TABLET PO SCH (05:39)
[2018-08-20] MEDS: METOCLOPRAMIDE HCL INJ/PF 10 MG/2 ML SDV IV SCH ×3 (05:39→22:42)
[2018-08-20] MEDS: ONDANSETRON 4 MG TAB.RAPDIS PO PRN ×3 (05:39→18:11)
[2018-08-20] MEDS: HYDROMORPHONE HCL INJ/PF 2 MG/ML AMPULE IV PRN ×3 (05:39→18:11)
[2018-08-20] MEDS: HYDROXYCHLOROQUINE SULFATE 200 MG TABLET PO SCH ×2 (09:06→17:14)
[2018-08-20] MEDS: CLOPIDOGREL BISULFATE 75 MG TABLET PO SCH (09:06)
[2018-08-20] MEDS: LANSOPRAZOLE 30 MG TAB.RAP.DR PO SCH ×2 (09:06→17:14)
[2018-08-20] MEDS: NORMAL SALINE IV PRN ×2 (17:55)
[2018-08-20] MEDS: POTASSIUM CHLORIDE IV PRN ×2 (17:55)
[2018-08-20] MEDS ORDERED: SERTRALINE HCL 50 MG TABLET PO SCH (20:15)
[2018-08-20] MEDS: ATORVASTATIN CALCIUM 40 MG TABLET PO SCH (22:42)
[2018-08-21] MEDS: HYDROMORPHONE HCL INJ/PF 2 MG/ML AMPULE IV PRN ×5 (00:18→23:17)
[2018-08-21] MEDS: ONDANSETRON 4 MG TAB.RAPDIS PO PRN ×3 (00:18→12:43)
[2018-08-21] MEDS: NORMAL SALINE IV PRN ×4 (04:54→17:11)
[2018-08-21] MEDS: POTASSIUM CHLORIDE IV PRN ×4 (04:54→17:11)
[2018-08-21] MEDS: METOCLOPRAMIDE HCL INJ/PF 10 MG/2 ML SDV IV SCH ×3 (06:42→21:43)
[2018-08-21] MEDS: LEVOTHYROXINE SODIUM 0.1 MG TABLET PO SCH (06:43)
[2018-08-21] MEDS: CLOPIDOGREL BISULFATE 75 MG TABLET PO SCH (10:16)
[2018-08-21] MEDS: LIDOCAINE 5% (700 MG) TRANSDERMAL ADH..PATCH TP SCH (10:16)
[2018-08-21] MEDS: HYDROXYCHLOROQUINE SULFATE 200 MG TABLET PO SCH ×2 (10:16→17:10)
[2018-08-21] MEDS: LANSOPRAZOLE 30 MG TAB.RAP.DR PO SCH ×2 (10:16→17:10)
--- NOTE | 2018-08-21 20:33 | PDOC PROGRESS REPORT ---
Subjective Progress Note for:: 08/21/18 Subjective:: She complains of urinary symptoms burning sensation history of recurrent UTI Reason For Visit: GASTROPERESIS, NARCOTIC INDUCED Physical Exam Vital Signs: Temp Pulse Resp BP Pulse Ox 98.2 F 92 18 134/46 H 97 08/21/18 11:48 08/21/18 14:00 08/21/18 11:48 08/21/18 11:48 08/21/18 11:48 Intake & Output 08/20/18 08/21/18 08/22/18 06:59 06:59 06:59 Intake Total 1280 3340 1858 Output Total 1400 675 Balance 1280 1940 1183 Weight 70.4 kg General appearance: PRESENT: no acute distress Eye exam: PRESENT: PERRLA Respiratory exam: PRESENT: clear to auscultation martínez Cardiovascular exam: PRESENT: +S1, +S2 GI/Abdominal exam: PRESENT: soft Neurological exam: PRESENT: alert Results Laboratory Results: 08/19/18 23:00 08/19/18 23:00 Assessment & Plan - Diagnosis (1) Gastroparesis Is this a current diagnosis for this admission?: Yes (2) Intractable vomiting Qualifiers: Vomiting type: unspecified Nausea presence: with nausea Qualified Code(s) : R11.2 - Nausea with vomiting, unspecified Is this a current diagnosis for this admission?: Yes (3) Urinary tract infection Qualifiers: Urinary tract infection type: site unspecified Hematuria presence: without hematuria Qualified Code(s): N39.0 - Urinary tract infection, site not specified Is this a current diagnosis for this admission?: Yes Plan: Start Macrobid
[2018-08-21] MEDS: ATORVASTATIN CALCIUM 40 MG TABLET PO SCH (21:43)
[2018-08-21] MEDS: NITROFURANTOIN MONOHYD/M-CRYST 100 MG CAPSULE PO SCH (23:17)
[2018-08-22] MEDS: HYDROMORPHONE HCL INJ/PF 2 MG/ML AMPULE IV PRN ×3 (05:47→18:24)
[2018-08-22] MEDS: METOCLOPRAMIDE HCL INJ/PF 10 MG/2 ML SDV IV SCH ×3 (05:48→21:35)
[2018-08-22] MEDS: LEVOTHYROXINE SODIUM 0.1 MG TABLET PO SCH (05:48)
[2018-08-22] MEDS: ONDANSETRON 4 MG TAB.RAPDIS PO PRN ×3 (05:48→18:24)
[2018-08-22] MEDS: NORMAL SALINE IV PRN ×4 (08:25→18:24)
[2018-08-22] MEDS: POTASSIUM CHLORIDE IV PRN ×4 (08:25→18:24)
[2018-08-22] MEDS: HYDROXYCHLOROQUINE SULFATE 200 MG TABLET PO SCH ×2 (09:35→18:24)
[2018-08-22] MEDS: LIDOCAINE 5% (700 MG) TRANSDERMAL ADH..PATCH TP SCH (09:35)
[2018-08-22] MEDS: NITROFURANTOIN MONOHYD/M-CRYST 100 MG CAPSULE PO SCH (09:35)
[2018-08-22] MEDS: LANSOPRAZOLE 30 MG TAB.RAP.DR PO SCH ×2 (09:35→15:57)
[2018-08-22] MEDS: CLOPIDOGREL BISULFATE 75 MG TABLET PO SCH (09:35)
[2018-08-22] MEDS: ATORVASTATIN CALCIUM 40 MG TABLET PO SCH (21:35)
[2018-08-22] MEDS: PHARMACY COMMUNICATION ORDER MC SCH (21:36)
--- NOTE | 2018-08-22 22:24 | PDOC PROGRESS REPORT ---
Subjective Progress Note for:: 08/22/18 Subjective:: She complains of urinary symptoms dysuria, itching, she cannot tolerate Reason For Visit: GASTROPERESIS, NARCOTIC INDUCED Physical Exam Vital Signs: Temp Pulse Resp BP Pulse Ox 98.5 F 92 18 134/53 H 100 08/22/18 19:56 08/22/18 19:56 08/22/18 19:56 08/22/18 19:56 08/22/18 19:56 Intake & Output 08/21/18 08/22/18 08/23/18 06:59 06:59 06:59 Intake Total 3340 3968 998 Output Total 1400 675 Balance 1940 3293 998 Weight 75.7 kg 75.7 kg Results Laboratory Results: 08/19/18 23:00 08/19/18 23:00 Assessment & Plan - Diagnosis (1) Gastroparesis Is this a current diagnosis for this admission?: Yes (2) Intractable vomiting Qualifiers: Vomiting type: unspecified Nausea presence: with nausea Qualified Code(s) : R11.2 - Nausea with vomiting, unspecified Is this a current diagnosis for this admission?: Yes (3) Urinary tract infection Qualifiers: Urinary tract infection type: site unspecified Hematuria presence: without hematuria Qualified Code(s): N39.0 - Urinary tract infection, site not specified Is this a current diagnosis for this admission?: Yes Plan: TRE Macrobid start Cipro IV
[2018-08-22] MEDS ORDERED: CIPROFLOXACIN 400 MG/D5W RTU 400 MG/200 ML RTUPB IV ONE (23:00)
[2018-08-23] MEDS: ONDANSETRON 4 MG TAB.RAPDIS PO PRN ×4 (00:32→19:12)
[2018-08-23] MEDS: HYDROMORPHONE HCL INJ/PF 2 MG/ML AMPULE IV PRN ×4 (00:32→19:12)
[2018-08-23] MEDS: METOCLOPRAMIDE HCL INJ/PF 10 MG/2 ML SDV IV SCH ×3 (05:15→22:00)
[2018-08-23] MEDS: POTASSIUM CHLORIDE IV PRN ×4 (05:15→18:23)
[2018-08-23] MEDS: LEVOTHYROXINE SODIUM 0.1 MG TABLET PO SCH (05:15)
[2018-08-23] MEDS: NORMAL SALINE IV PRN ×4 (05:15→18:23)
[2018-08-23] MEDS: LANSOPRAZOLE 30 MG TAB.RAP.DR PO SCH ×2 (08:41→18:15)
[2018-08-23] MEDS: LIDOCAINE 5% (700 MG) TRANSDERMAL ADH..PATCH TP SCH (09:54)
[2018-08-23] MEDS: CIPROFLOXACIN 400 MG/D5W RTU 400 MG/200 ML RTUPB IV SCH ×2 (09:54→22:00)
[2018-08-23] MEDS: CLOPIDOGREL BISULFATE 75 MG TABLET PO SCH (09:54)
[2018-08-23] MEDS: HYDROXYCHLOROQUINE SULFATE 200 MG TABLET PO SCH ×2 (09:55→18:14)
--- NOTE | 2018-08-23 21:34 | PDOC DISCHARGE SUMMARY ---
General - Admit/Disc Date/PCP Admission Date/Primary Care Provider: 08/22/18 12:14 IAN MUÑOZ MD - Discharge Diagnosis (1) Gastroparesis Is this a current diagnosis for this admission?: Yes (2) Intractable vomiting Is this a current diagnosis for this admission?: Yes (3) Urinary tract infection Is this a current diagnosis for this admission?: Yes - Additional Information Home Medications: RX: Atorvastatin Calcium [Lipitor 40 mg Tablet] 40 mg PO QHS 07/08/18 RX: Hydrocodone Bitartrate [Zohydro ER] 40 mg PO Q12 07/08/18 RX: Hydroxychloroquine Sulfate [Plaquenil 200 mg Tablet] 200 mg PO BID 07/08/18 RX: Levothyroxine Sodium [Synthroid] 100 mcg PO Q6AM 07/08/18 RX: Pantoprazole Sodium [Protonix] 40 mg PO BID 07/08/18 RX: Sertraline HCl [Zoloft 50 mg Tablet] 50 mg PO DAILY 07/08/18 RX: Sucralfate [Carafate 1 gm Tablet] 1 gm PO QID 07/08/18 RX: Zaleplon [Sonata] 10 mg PO HSP PRN 07/08/18 Bethanechol Chloride [Urecholine] 10 mg PO BID 08/19/18 Clopidogrel Bisulfate [Plavix 75 mg Tablet] 75 mg PO DAILY 08/19/18 Cyclobenzaprine HCl [Flexeril 10 mg Tablet] 10 mg PO TIDP PRN 08/19/18 Gabapentin [Neurontin] 600 mg PO TID 08/19/18 Lidocaine [Lidoderm 5% (700 mg) Transdermal Patch] 1 patch TP DAILY 08/19/18 Nitroglycerin [Nitrostat 0.4 mg (1/150 Gr) Tabs 25/Bottle] 1 tab SL Q5MP PRN 06/27 Ondansetron [Zofran Odt 4 mg Tablet] 4 mg PO Q6HP PRN 08/19/18 Oxycodone HCl/Acetaminophen [Percocet 10-325 Mg Tablet] 1 each PO Q6HP PRN 08/19 Promethazine HCl [Phenergan 25 mg Tablet] 25 mg PO Q6HP PRN 08/19/18 History of Present Illness History of Present Illness: VALENET Hassan TAMMY is a 63 year old female, She was admitted because of persistent vomiting she has gastroparesis most likely due to chronic opioid use. She has had multiple hospital admission for the same problem she was brought in essentially for hydration she may need to have outpatient infusion set up Physical Exam Vital Signs: Temp Pulse Resp BP Pulse Ox 98.0 F 87 18 150/63 H 100 08/23/18 19:52 08/23/18 19:52 08/23/18 19:52 08/23/18 19:52 08/23/18 19:52 Intake & Output 08/22/18 08/23/18 08/24/18 06:59 06:59 06:59 Intake Total 3968 3188 2412 Output Total 675 1200 Balance 3293 3188 1212 Weight 75.7 kg 76.9 kg Results Laboratory Results: 08/19/18 23:00 08/19/18 23:00
[2018-08-23] MEDS: PHARMACY COMMUNICATION ORDER MC SCH (22:01)
[2018-08-23] MEDS: ATORVASTATIN CALCIUM 40 MG TABLET PO SCH (22:01)
[2018-08-24] MEDS: ONDANSETRON 4 MG TAB.RAPDIS PO PRN ×2 (01:17→08:14)
[2018-08-24] MEDS: HYDROMORPHONE HCL INJ/PF 2 MG/ML AMPULE IV PRN ×2 (01:17→08:14)
[2018-08-24] MEDS: LEVOTHYROXINE SODIUM 0.1 MG TABLET PO SCH (05:04)
[2018-08-24] MEDS: METOCLOPRAMIDE HCL INJ/PF 10 MG/2 ML SDV IV SCH (05:04)
[2018-08-24] MEDS: POTASSIUM CHLORIDE IV PRN ×2 (05:50)
[2018-08-24] MEDS: NORMAL SALINE IV PRN ×2 (05:50)
[2018-08-24] MEDS: LANSOPRAZOLE 30 MG TAB.RAP.DR PO SCH (08:14)
[2018-08-24] MEDS: LIDOCAINE 5% (700 MG) TRANSDERMAL ADH..PATCH TP SCH (09:25)
[2018-08-24] MEDS: HYDROXYCHLOROQUINE SULFATE 200 MG TABLET PO SCH (09:27)
[2018-08-24] MEDS: CLOPIDOGREL BISULFATE 75 MG TABLET PO SCH (09:27)
[2018-08-24] MEDS: CIPROFLOXACIN 400 MG/D5W RTU 400 MG/200 ML RTUPB IV SCH (09:27)
[2018-08-24 10:08] VITALS: BP 135/67
== END 2018-08-24 10:50 | disposition home health service (06) | DRG 392 ==
LOC: 4N 18:44 → OBSVTOIN 08-22 12:14
PROVIDERS: ADMIT Internal Medicine; ATTEND Internal Medicine
DX: K31.84 Gastroparesis (principal); N39.0 Urinary tract infection, site not specified; I11.0 Hypertensive heart disease with heart failure; I50.9 Heart failure, unspecified; I25.10 Atherosclerotic heart disease of native coronary artery without angina pectoris; I25.2 Old myocardial infarction; E78.5 Hyperlipidemia, unspecified; Z86.718 Personal history of other venous thrombosis and embolism; K21.9 Gastro-esophageal reflux disease without esophagitis; J44.9 Chronic obstructive pulmonary disease, unspecified; D64.9 Anemia, unspecified; M32.9 Systemic lupus erythematosus, unspecified; Z79.891 Long term (current) use of opiate analgesic; Z90.49 Acquired absence of other specified parts of digestive tract; Z95.5 Presence of coronary angioplasty implant and graft; Z90.710 Acquired absence of both cervix and uterus; Z96.653 Presence of artificial knee joint, bilateral; Z82.49 Family history of ischemic heart disease and other diseases of the circulatory system; Z83.438 Family history of other disorder of lipoprotein metabolism and other lipidemia; Z80.9 Family history of malignant neoplasm, unspecified; Z82.61 Family history of arthritis; Z88.0 Allergy status to penicillin; Z88.6 Allergy status to analgesic agent; Z85.41 Personal history of malignant neoplasm of cervix uteri; Z85.43 Personal history of malignant neoplasm of ovary
CPT/HCPCS: 36415; 80048; 80076; 81001; 85025; G0378; G0379; J0744; J1170; J2765; J3480; J3490; J7030; J8499; S0119

== ENCOUNTER 2018-09-16 16:42 | Inpatient (IN) | payer MEDICARE, OTHER ==
[2018-09-16 18:28] LABS: ABSOLUTE LYMPHOCYTES (AUTO) 2.2 10^3/uL (0.5-4.7); ABSOLUTE MONOCYTES (AUTO) 0.9 10^3/uL (0.1-1.4); ABSOLUTE NEUT (AUTO) 7.6 10^3/uL (1.7-8.2); BASOPHILS % (AUTO) 0.2 % (0-2); EOSINOPHILS % (AUTO) 0.3 % (0-6); HEMATOCRIT 42.2 % (36.0-47.0); HEMOGLOBIN 14.4 g/dL (12.0-15.5); LYMPHOCYTES % (AUTO) 20.4 % (13-45); MEAN CORPUSCULAR HEMOGLOBIN 26.1 pg (27.0-33.4); MEAN CORPUSCULAR HGB CONC 34.2 g/dL (32.0-36.0); MEAN CORPUSCULAR VOLUME 76 fl (80-97); MONOCYTES % (AUTO) 8.5 % (3-13); PLATELET COUNT 342 10^3/uL (150-450); RED BLOOD COUNT 5.54 10^6/uL (3.72-5.28); RED CELL DISTRIBUTION WIDTH 15.3 % (11.5-14.0); SEGMENTED NEUTROPHILS % (AUTO) 70.6 % (42-78); TOTAL CELLS COUNTED % (AUTO) 100 %; WHITE BLOOD COUNT 10.8 10^3/uL (4.0-10.5)
[2018-09-16] MEDS: POTASSI CL 40 MEQ/NS 1L 1,000 ML IV PRN (18:28)
[2018-09-16 18:51] LABS: ALANINE AMINOTRANSFERASE 15 U/L (9-52); ALBUMIN 4.1 g/dL (3.5-5.0); ALKALINE PHOSPHATASE 106 U/L (38-126); ANION GAP 12 (5-19); ASPARTATE AMINO TRANSFERASE 24 U/L (14-36); BILIRUBIN,DIRECT 0.4 mg/dL (0.0-0.4); BILIRUBIN,TOTAL 0.6 mg/dL (0.2-1.3); BLOOD UREA NITROGEN 13 mg/dL (7-20); CALCIUM 9.8 mg/dL (8.4-10.2); CARBON DIOXIDE 24 mmol/L (22-30); CHLORIDE 96 mmol/L (98-107); CREATINE KINASE 25 U/L (30-135); GLUCOSE 96 mg/dL (75-110); POTASSIUM 4.3 mmol/L (3.6-5.0); SODIUM 132.1 mmol/L (137-145); TOTAL PROTEIN 6.9 g/dL (6.3-8.2)
[2018-09-16 19:02] LABS: CREATINE KINASE MB 0.22 ng/mL (<4.55)
[2018-09-16 19:05] LABS: TROPONIN I < 0.012 ng/mL
--- NOTE | 2018-09-16 20:08 | RADIOLOGY REPORT (SQ) ---
EXAM DESCRIPTION: KUB/ABDOMEN (SINGLE VIEW) COMPLETED DATE/TIME: 09/16/2018 7:54 pm REASON FOR STUDY: vomiting COMPARISON: 03/16/2018 NUMBER OF VIEWS: One view. TECHNIQUE: Supine radiographic image of the abdomen acquired. LIMITATIONS: None. FINDINGS: BOWEL GAS PATTERN: Abundant gas and fecal material within nondilated colon. CALCIFICATIONS: No suspicious calcifications. SOFT TISSUES: No gross mass or suggestion of organomegaly. HARDWARE: Multiple, unchanged. BONES: No bone lesions or fracture. OTHER: No other significant finding. IMPRESSION: Fecal retention. Reading location - IP/workstation name: [email or web address]
--- NOTE | 2018-09-16 20:39 | EKG REPORT ---
SEVERITY:- ABNORMAL ECG - SINUS RHYTHM MULTIPLE ATRIAL PREMATURE COMPLEXES CONSIDER INFERIOR INFARCT : Confirmed by: Juan Manuel Clarke MD 16-Sep-2018 20:39:08
[2018-09-16 21:38] LABS: AMORPHOUS SEDIMENT,URINE TRACE /HPF; APPEARANCE,URINE CLOUDY; BILIRUBIN,URINE NEGATIVE (NEGATIVE); COLOR,URINE YELLOW; GLUCOSE, URINE NEGATIVE (NEGATIVE); KETONES,URINE NEGATIVE (NEGATIVE); LEUKOCYTE ESTERASE,URINE LARGE (NEGATIVE); NITRITE,URINE POSITIVE (NEGATIVE); PROTEIN,URINE NEGATIVE (NEGATIVE); URINE SPECIFIC GRAVITY 1.008; UROBILINOGEN,URINE NEGATIVE mg/dL (<2.0)
[2018-09-16] MEDS ORDERED: (PENDING PHARMACY ID) (Zaleplon [Sonata] 10 MG) PO PRN (21:41)
--- NOTE | 2018-09-16 21:41 | PDOC H&P ---
History of Present Illness Admission Date/PCP: 09/16/18 16:42 IAN MUÑOZ MD History of Present Illness: VALENTE MUNOZ is a 63 year old female, Patient was admitted for the [facility] of intractable vomiting, failed outpatient management, she has a history of gastroparesis, this ongoing problem, the last time she was admitted to the hospital, I made arrangements for outpatient infusion with normal saline for patient to receive IV normal saline 3 times a week.She has a history of recurrent urinary tract infection partly due to self catheterization, she has a history of vancomycin resistant enterococcus, ESBL E. coli UTI, the urinalysis that was obtained also showed abnormal urinalysis, bacteriuria, pyuria that suggest impending UTI and probably sepsis. Unfortunately attempts to keep patient out of the hospital as continuously been unsuccessful Past Medical History Cardiac Medical History: Reports: Congestive Heart Failure, Coronary Artery Disease, DVT, Myocardial Infarction, Hyperlipidema, Hypertension, Pulmonary Embolism Pulmonary Medical History: Reports: Bronchitis, Chronic Obstructive Pulmonary Disease (COPD) Endocrine Medical History: Reports: Hypothyroidism Malignancy Medical History: Reports: Cervical Cancer, Ovarian Cancer GI Medical History: Reports: Gastroesophageal Reflux Disease, Hiatal Hernia - Repaired Musculoskeltal Medical History: Reports: Arthritis - Lupus, Fibromyalgia - Lupus Psychiatric Medical History: Reports: Depression Hematology: Reports: Anemia - HX OF LOW NA AND K,LOW IRON WILL HAVE IRON TRANS FUSION 05/04. Infectious Medical History: Reports: Clostridium Difficile - Was negative in October2015. Not yet successfully collected stool, Methicillin-Resistant Staph Aureus, Vancomycin-Resistant Enterococci Past Surgical History Past Surgical History: Reports: Appendectomy, Cardiac Catheterization, Section, Cholecystectomy, Coronary Stent - 3 stents, Herniorrhaphy, Hysterectomy, Orthopedic Surgery - Right knee, bilateral knee replacements and hip replacement metal plate in, Tonsillectomy Social History Smoking Status: Former Smoker Cigarettes Packs Per Day: 3 Number of Years Smokin Frequency of Alcohol Use: Occasional Hx Recreational Drug Use: No Drugs: None Hx Prescription Drug Abuse: No Family History Family History: Arthritis, COPD, Hyperlipidemia, Hypertension, Malignancy, Thyroid Disfunction Parental Family History Reviewed: Yes Children Family History Reviewed: Yes Sibling(s) Family History Reviewed.: Yes Medication/Allergy Home Medications: Hydrocodone Bitartrate [Zohydro ER] 40 mg PO Q12 07/08/18 Levothyroxine Sodium [Synthroid] 100 mcg PO Q6AM 07/08/18 Pantoprazole Sodium [Protonix] 40 mg PO BID 07/08/18 Sertraline HCl [Zoloft 50 mg Tablet] 100 mg PO DAILY 07/08/18 Sucralfate [Carafate 1 gm Tablet] 1 gm PO QID 07/08/18 Zaleplon [Sonata] 10 mg PO HSP PRN 07/08/18 Bethanechol Chloride [Urecholine 10 mg Tablet] 10 mg PO Q8H 08/19/18 Clopidogrel Bisulfate [Plavix 75 mg Tablet] 75 mg PO DAILY 08/19/18 Cyclobenzaprine HCl [Flexeril 10 mg Tablet] 10 mg PO TIDP PRN 08/19/18 Gabapentin [Neurontin] 600 mg PO TID 08/19/18 Lidocaine [Lidoderm 5% (700 mg) Transdermal Patch] 1 patch TP DAILY 08/19/18 Ondansetron [Zofran Odt 4 mg Tablet] 4 mg PO Q6HP PRN 08/19/18 Oxycodone HCl/Acetaminophen [Percocet 10-325 mg Tablet] 1 each PO Q6HP PRN 08/19/18 Promethazine HCl [Phenergan 25 mg Tablet] 12.5 mg PO Q8HP PRN 08/19/18 Cyanocobalamin (Vitamin B-12) [Vitamin B-12 Inj 1000 Mcg/1 ml Vial] 1,000 mcg IM .MONTHLY 09/16/18 Montelukast Sodium [Singulair 10 mg Tablet] 10 mg PO QHS 09/16/18 Tizanidine HCl [Zanaflex 4 Mg Tablet] 4 mg PO HSP PRN 09/16/18 Allergies/Adverse Reactions: irbesartan [From Avapro] Allergy (Severe, Verified 08/19/18 20:40) swelling of face nitrofurantoin macrocrystalline [From Macrobid] Allergy (Severe, Verified 08/19/18 20:40) Generalized edema Penicillins Allergy (Severe, Verified 08/19/18 20:40) eyes swelled pregabalin [From Lyrica] Allergy (Severe, Verified 08/19/18 20:40) Equilibrium Issues venom-honey bee [bee venom (honey bee)] Allergy (Verified 08/19/18 20:40) Anaphylaxis Review of Systems Eyes: ABSENT: visual disturbances Ears: ABSENT: hearing changes Cardiovascular: ABSENT: as per HPI, chest pain, dyspnea on exertion, edema, orthropnea, palpitations, other Respiratory: ABSENT: cough, hemoptysis Gastrointestinal: PRESENT: abdominal pain, vomiting Genitourinary: ABSENT: dysuria, hematuria Musculoskeletal: ABSENT: joint swelling Integumentary: ABSENT: rash, wounds Neurological: PRESENT: abnormal gait Psychiatric: PRESENT: anxiety, depression Endocrine: ABSENT: cold intolerance, heat intolerance, menstrual abnormalities, polydipsia, polyuria Hematologic/Lymphatic: ABSENT: easy bleeding, easy bruising, lymphadenopathy Physical Exam Vital Signs: Temp Pulse Resp BP Pulse Ox 98.7 F 84 20 132/71 H 100 09/16/18 20:48 09/16/18 20:48 09/16/18 20:48 09/16/18 20:48 09/16/18 20:48 Intake & Output 09/15/18 09/16/18 09/17/18 06:59 06:59 06:59 Intake Total 0 Balance 0 Weight 82.1 kg General appearance: PRESENT: other - Patient is alert oriented with depressed affect Head exam: PRESENT: atraumatic, normocephalic Eye exam: PRESENT: PERRLA Neck exam: PRESENT: full ROM Respiratory exam: PRESENT: clear to auscultation martínez Cardiovascular exam: PRESENT: RRR, +S1, +S2 Vascular exam: PRESENT: normal capillary refill GI/Abdominal exam: PRESENT: normal bowel sounds, soft Rectal exam: PRESENT: deferred Neurological exam: PRESENT: alert, CN II-XII grossly intact Psychiatric exam: PRESENT: appropriate affect, normal mood Skin exam: PRESENT: dry, intact, warm Results Laboratory Results: 09/16/18 18:20 09/16/18 18:20 09/16/18 09/16/18 18:20 18:20 WBC 10.8 H RBC 5.54 H Hgb 14.4 Hct 42.2 MCV 76 L MCH 26.1 L MCHC 34.2 RDW 15.3 H Plt Count 342 Seg Neutrophils % 70.6 Lymphocytes % 20.4 Monocytes % 8.5 Eosinophils % 0.3 Basophils % 0.2 Absolute Neutrophils 7.6 Absolute Lymphocytes 2.2 Absolute Monocytes 0.9 Absolute Eosinophils 0.0 Absolute Basophils 0.0 Sodium 132.1 L Potassium 4.3 Chloride 96 L Carbon Dioxide 24 Anion Gap 12 BUN 13 Creatinine 1.16 Est GFR ( Amer) 57 L Est GFR (Non-Af Amer) 47 L Glucose 96 Calcium 9.8 Total Bilirubin 0.6 AST 24 ALT 15 Alkaline Phosphatase 106 Total Protein 6.9 Albumin 4.1 09/16/18 09/16/18 18:20 18:20 Creatine Kinase 25 L CK-MB (CK-2) 0.22 Troponin I < 0.012 Impressions: KUB X-Ray 09/16/18 00:00 IMPRESSION: Fecal retention. Assessment & Plan - Diagnosis (1) Intractable vomiting Qualifiers: Vomiting type: unspecified Nausea presence: with nausea Qualified Code(s): R11.2 - Nausea with vomiting, unspecified Is this a current diagnosis for this admission?: Yes Plan: Patient admitted to the hospital, the etiology is multifactorial including gastroparesis, UTI (2) Urinary tract infection Qualifiers: Urinary tract infection type: site unspecified Hematuria presence: without hematuria Qualified Code(s): N39.0 - Urinary tract infection, site not specified Is this a current diagnosis for this admission?: Yes (3) Lupus erythematosus Qualifiers: Lupus erythematosus form: systemic Systemic lupus erythematosus type: unspecified Systemic lupus erythematosus organ involvement: unspecified Qualified Code(s): M32.9 - Systemic lupus erythematosus, unspecified Is this a current diagnosis for this admission?: Yes (4) Coronary artery disease Qualifiers: Coronary Disease-Associated Artery/Lesion type: [place] artery [place] vs. transplanted heart: [place] heart Associated angina: without angina Qualified Code(s): I25.10 - Atherosclerotic heart disease of [place] coronary artery without angina pectoris Is this a current diagnosis for this admission?: Yes
[2018-09-16] MEDS ORDERED: BETHANECHOL CHLORIDE 10 MG PO SCH (21:45)
[2018-09-16] MEDS: ONDANSETRON HCL INJ/PF 4 MG/2 ML SDV IV PRN (21:55)
[2018-09-16] MEDS ORDERED: HYDROCODONE BITARTRATE 40 MG PO SCH (22:00)
[2018-09-16] MEDS ORDERED: LANSOPRAZOLE 30 MG TAB.RAP.DR PO ONE (22:15)
[2018-09-16] MEDS: LIDOCAINE 5% (700 MG) TRANSDERMAL ADH..PATCH TP SCH (23:28)
[2018-09-16] MEDS: SUCRALFATE 1 GM TABLET PO SCH (23:29)
[2018-09-16] MEDS: MONTELUKAST SODIUM 10 MG TABLET PO SCH (23:29)
[2018-09-16] MEDS: GABAPENTIN 300 MG CAPSULE PO SCH (23:29)
[2018-09-16] MEDS: CLOPIDOGREL BISULFATE 75 MG TABLET PO SCH (23:29)
[2018-09-16] MEDS: SERTRALINE HCL 50 MG TABLET PO SCH (23:29)
[2018-09-16] MEDS: OXYCODONE-ACETAMINOPHEN 5-325 MG TABLET PO PRN (23:39)
[2018-09-17] MEDS: ONDANSETRON HCL INJ/PF 4 MG/2 ML SDV IV PRN ×3 (01:55→22:59)
[2018-09-17 03:08] LABS: CREATINE KINASE MB 0.36 ng/mL (<4.55)
[2018-09-17 03:14] LABS: TROPONIN I < 0.012 ng/mL
[2018-09-17] MEDS: PROMETHAZINE HCL 25 MG TABLET PO PRN (04:05)
[2018-09-17] MEDS: POTASSI CL 40 MEQ/NS 1L 1,000 ML IV PRN ×2 (04:08→15:57)
[2018-09-17] MEDS: GABAPENTIN 300 MG CAPSULE PO SCH ×3 (05:57→23:32)
[2018-09-17] MEDS: LEVOTHYROXINE SODIUM 0.1 MG TABLET PO SCH (05:57)
[2018-09-17] MEDS: OXYCODONE-ACETAMINOPHEN 5-325 MG TABLET PO PRN ×2 (08:13→19:39)
[2018-09-17] MEDS: SERTRALINE HCL 50 MG TABLET PO SCH (10:14)
[2018-09-17] MEDS: SUCRALFATE 1 GM TABLET PO SCH ×4 (10:14→23:32)
[2018-09-17] MEDS: CLOPIDOGREL BISULFATE 75 MG TABLET PO SCH (10:14)
[2018-09-17] MEDS: LANSOPRAZOLE 30 MG TAB.RAP.DR PO SCH ×2 (10:15→17:33)
[2018-09-17 11:12] LABS: CREATINE KINASE MB 0.41 ng/mL (<4.55)
[2018-09-17 11:20] LABS: TROPONIN I < 0.012 ng/mL
[2018-09-17] MEDS: CYCLOBENZAPRINE HCL 10 MG TABLET PO PRN (11:43)
[2018-09-17] MEDS: CIPROFLOXACIN 400 MG/D5W RTU 400 MG/200 ML RTUPB IV SCH (20:43)
--- NOTE | 2018-09-17 20:48 | PDOC PROGRESS REPORT ---
Subjective Progress Note for:: 09/17/18 Subjective:: Patient was seen by the bedside she complains of pain Reason For Visit: PERSISTENT VOMITING,FAILED OUTPATIENT THERAPY Physical Exam Vital Signs: Temp Pulse Resp BP Pulse Ox 98.2 F 79 16 128/56 H 96 09/17/18 20:09 09/17/18 20:09 09/17/18 20:09 09/17/18 20:09 09/17/18 20:09 Intake & Output 09/16/18 09/17/18 09/18/18 06:59 06:59 06:59 Intake Total 1167 2037 Output Total 600 Balance 1167 1437 Weight 84 kg 84 kg General appearance: PRESENT: no acute distress Eye exam: PRESENT: PERRLA Respiratory exam: PRESENT: clear to auscultation martínez Cardiovascular exam: PRESENT: +S1, +S2 GI/Abdominal exam: PRESENT: soft Neurological exam: PRESENT: alert Results Laboratory Results: 09/16/18 18:20 09/16/18 18:20 09/16/18 21:10 Urine Color YELLOW Urine Appearance CLOUDY Urine pH 6.0 Ur Specific [place] 1.008 Urine Protein NEGATIVE Urine Glucose (UA) NEGATIVE Urine Ketones NEGATIVE Urine Blood NEGATIVE Urine Nitrite POSITIVE H Ur Leukocyte Esterase LARGE H Urine WBC (Auto) >182 Urine RBC (Auto) 2 09/16/18 09/16/18 09/17/18 18:20 18:20 02:34 Creatine Kinase 25 L 30 CK-MB (CK-2) 0.22 Troponin I < 0.012 09/17/18 09/17/18 09/17/18 02:34 10:20 10:20 Creatine Kinase 29 L CK-MB (CK-2) 0.36 0.41 Troponin I < 0.012 < 0.012 Impressions: KUB X-Ray 09/16/18 00:00 IMPRESSION: Fecal retention. Assessment & Plan - Diagnosis (1) Intractable vomiting Qualifiers: Vomiting type: unspecified Nausea presence: with nausea Qualified Code(s): R11.2 - Nausea with vomiting, unspecified Is this a current diagnosis for this admission?: Yes (2) Urinary tract infection Qualifiers: Urinary tract infection type: site unspecified Hematuria presence: without hematuria Qualified Code(s): N39.0 - Urinary tract infection, site not specified Is this a current diagnosis for this admission?: Yes Plan: Start IV Cipro (3) Lupus erythematosus Qualifiers: Lupus erythematosus form: systemic Systemic lupus erythematosus type: unspecified Systemic lupus erythematosus organ involvement: unspecified Qualified Code(s): M32.9 - Systemic lupus erythematosus, unspecified Is this a current diagnosis for this admission?: Yes (4) Coronary artery disease Qualifiers: Coronary Disease-Associated Artery/Lesion type: [place] artery [place] vs. transplanted heart: [place] heart Associated angina: without angina Qualified Code(s): I25.10 - Atherosclerotic heart disease of [place] coronary artery without angina pectoris Is this a current diagnosis for this admission?: Yes - Plan Summary Plan Summary: Continue antiemetics IV fluid pain control start Cipro antibiotic for UTI
[2018-09-17] MEDS: LIDOCAINE 5% (700 MG) TRANSDERMAL ADH..PATCH TP SCH (22:59)
[2018-09-17] MEDS: HYDROMORPHONE HCL INJ/PF 2 MG/ML AMPULE IV PRN (23:17)
[2018-09-17] MEDS: MONTELUKAST SODIUM 10 MG TABLET PO SCH (23:32)
[2018-09-18] MEDS: OXYCODONE-ACETAMINOPHEN 5-325 MG TABLET PO PRN ×3 (03:25→17:14)
[2018-09-18] MEDS: POTASSI CL 40 MEQ/NS 1L 1,000 ML IV PRN ×2 (03:30→13:32)
[2018-09-18] MEDS: ONDANSETRON HCL INJ/PF 4 MG/2 ML SDV IV PRN ×4 (03:40→21:23)
[2018-09-18] MEDS: LEVOTHYROXINE SODIUM 0.1 MG TABLET PO SCH (05:10)
[2018-09-18] MEDS: GABAPENTIN 300 MG CAPSULE PO SCH ×3 (05:10→21:23)
[2018-09-18] MEDS: CIPROFLOXACIN 400 MG/D5W RTU 400 MG/200 ML RTUPB IV SCH ×2 (05:11→17:15)
[2018-09-18] MEDS: HYDROMORPHONE HCL INJ/PF 2 MG/ML AMPULE IV PRN ×3 (05:25→20:05)
[2018-09-18] MEDS: LANSOPRAZOLE 30 MG TAB.RAP.DR PO SCH ×2 (10:10→17:15)
[2018-09-18] MEDS: CLOPIDOGREL BISULFATE 75 MG TABLET PO SCH (10:10)
[2018-09-18] MEDS: SUCRALFATE 1 GM TABLET PO SCH ×3 (10:10→21:22)
[2018-09-18] MEDS: SERTRALINE HCL 50 MG TABLET PO SCH (10:10)
[2018-09-18] MEDS: PROMETHAZINE HCL 25 MG TABLET PO PRN (13:31)
--- NOTE | 2018-09-18 18:58 | PDOC PROGRESS REPORT ---
Subjective Progress Note for:: 09/18/18 Subjective:: She has polymicrobial UTI, urine culture grew Citrobacter and Klebsiella both sensitive to Cipro patient presently on Cipro, continue some antibiotic Reason For Visit: PERSISTENT VOMITING,FAILED OUTPATIENT THERAPY Physical Exam Vital Signs: Temp Pulse Resp BP Pulse Ox 98.8 F 85 16 122/76 96 09/18/18 15:32 09/18/18 15:32 09/18/18 15:32 09/18/18 15:32 09/18/18 15:32 Intake & Output 09/17/18 09/18/18 09/19/18 06:59 06:59 06:59 Intake Total 1167 3237 1518 Output Total 1600 1100 Balance 1167 1637 418 Weight 84 kg 88.2 kg General appearance: PRESENT: no acute distress Eye exam: PRESENT: PERRLA Cardiovascular exam: PRESENT: +S1, +S2 Neurological exam: PRESENT: alert Results Laboratory Results: 09/16/18 18:20 09/16/18 18:20 09/16/18 21:10 Clean Catch Midstream Urine Culture - Final Citrobacter Freundii Klebsiella Pneumoniae 09/16/18 09/16/18 09/17/18 18:20 18:20 02:34 Creatine Kinase 25 L 30 CK-MB (CK-2) 0.22 Troponin I < 0.012 09/17/18 09/17/18 09/17/18 02:34 10:20 10:20 Creatine Kinase 29 L CK-MB (CK-2) 0.36 0.41 Troponin I < 0.012 < 0.012 Impressions: KUB X-Ray 09/16/18 00:00 IMPRESSION: Fecal retention. Assessment & Plan - Diagnosis (1) Intractable vomiting Qualifiers: Vomiting type: unspecified Nausea presence: with nausea Qualified Code(s): R11.2 - Nausea with vomiting, unspecified Is this a current diagnosis for this admission?: Yes (2) Urinary tract infection Qualifiers: Urinary tract infection type: site unspecified Hematuria presence: without hematuria Qualified Code(s): N39.0 - Urinary tract infection, site not specified Is this a current diagnosis for this admission?: Yes (3) Lupus erythematosus Qualifiers: Lupus erythematosus form: systemic Systemic lupus erythematosus type: unspecified Systemic lupus erythematosus organ involvement: unspecified Qualified Code(s): M32.9 - Systemic lupus erythematosus, unspecified Is this a current diagnosis for this admission?: Yes (4) Coronary artery disease Qualifiers: Coronary Disease-Associated Artery/Lesion type: [place] artery [place] vs. transplanted heart: [place] heart Associated angina: without angina Qualified Code(s): I25.10 - Atherosclerotic heart disease of [place] coronary artery wit hout angina pectoris Is this a current diagnosis for this admission?: Yes (5) Urinary tract infection due to Klebsiella species Is this a current diagnosis for this admission?: Yes Plan: Continue IV Cipro (6) Infection due to Citrobacter Is this a current diagnosis for this admission?: Yes
[2018-09-18] MEDS: MONTELUKAST SODIUM 10 MG TABLET PO SCH (21:22)
[2018-09-18] MEDS: CYCLOBENZAPRINE HCL 10 MG TABLET PO PRN (21:22)
[2018-09-18] MEDS: LIDOCAINE 5% (700 MG) TRANSDERMAL ADH..PATCH TP SCH (21:24)
[2018-09-19] MEDS: OXYCODONE-ACETAMINOPHEN 5-325 MG TABLET PO PRN ×4 (00:12→19:01)
[2018-09-19] MEDS: PROMETHAZINE HCL 25 MG TABLET PO PRN ×3 (00:13→21:23)
[2018-09-19] MEDS: POTASSI CL 40 MEQ/NS 1L 1,000 ML IV PRN ×2 (00:18→11:17)
[2018-09-19] MEDS: HYDROMORPHONE HCL INJ/PF 2 MG/ML AMPULE IV PRN ×4 (02:38→21:22)
[2018-09-19] MEDS: ONDANSETRON HCL INJ/PF 4 MG/2 ML SDV IV PRN (02:39)
[2018-09-19] MEDS: CIPROFLOXACIN 400 MG/D5W RTU 400 MG/200 ML RTUPB IV SCH ×2 (05:52→17:10)
[2018-09-19] MEDS: GABAPENTIN 300 MG CAPSULE PO SCH ×3 (05:54→21:21)
[2018-09-19] MEDS: CYCLOBENZAPRINE HCL 10 MG TABLET PO PRN (05:54)
[2018-09-19] MEDS: LEVOTHYROXINE SODIUM 0.1 MG TABLET PO SCH (05:54)
[2018-09-19] MEDS: SUCRALFATE 1 GM TABLET PO SCH ×4 (08:11→21:21)
[2018-09-19 09:14] LABS: ABSOLUTE EOSINOPHILS # (AUTO) 0.1 10^3/uL (0.0-0.6); ABSOLUTE LYMPHOCYTES (AUTO) 0.8 10^3/uL (0.5-4.7); ABSOLUTE MONOCYTES (AUTO) 0.5 10^3/uL (0.1-1.4); ABSOLUTE NEUT (AUTO) 4.5 10^3/uL (1.7-8.2); BASOPHILS % (AUTO) 0.4 % (0-2); HEMATOCRIT 31.8 % (36.0-47.0); LYMPHOCYTES % (AUTO) 13.4 % (13-45); MEAN CORPUSCULAR HGB CONC 33.6 g/dL (32.0-36.0); MEAN CORPUSCULAR VOLUME 77 fl (80-97); MONOCYTES % (AUTO) 8.4 % (3-13); PLATELET COUNT 259 10^3/uL (150-450); RED BLOOD COUNT 4.12 10^6/uL (3.72-5.28); RED CELL DISTRIBUTION WIDTH 14.9 % (11.5-14.0); SEGMENTED NEUTROPHILS % (AUTO) 76.8 % (42-78); TOTAL CELLS COUNTED % (AUTO) 100 %; WHITE BLOOD COUNT 5.9 10^3/uL (4.0-10.5)
[2018-09-19 09:20] LABS: HEMOGLOBIN 10.7 g/dL (12.0-15.5)
[2018-09-19 09:31] LABS: ANION GAP 10 (5-19); BLOOD UREA NITROGEN 5 mg/dL (7-20); CALCIUM 8.3 mg/dL (8.4-10.2); CARBON DIOXIDE 17 mmol/L (22-30); CHLORIDE 103 mmol/L (98-107); GLUCOSE 114 mg/dL (75-110); POTASSIUM 4.3 mmol/L (3.6-5.0); SODIUM 129.8 mmol/L (137-145)
[2018-09-19] MEDS: LANSOPRAZOLE 30 MG TAB.RAP.DR PO SCH ×2 (11:10→17:10)
[2018-09-19] MEDS: CLOPIDOGREL BISULFATE 75 MG TABLET PO SCH (11:10)
[2018-09-19] MEDS: SERTRALINE HCL 50 MG TABLET PO SCH (11:10)
[2018-09-19] MEDS: PHARMACY COMMUNICATION ORDER MC SCH (11:12)
[2018-09-19] MEDS: ONDANSETRON 4 MG TAB.RAPDIS PO PRN ×2 (14:43→19:01)
--- NOTE | 2018-09-19 20:05 | PDOC PROGRESS REPORT ---
Subjective Progress Note for:: 09/19/18 Subjective:: Patient seen by the bedside, the urine culture grew Citrobacter species and Klebsiella Reason For Visit: PERSISTENT VOMITING,FAILED OUTPATIENT THERAPY Physical Exam Vital Signs: Temp Pulse Resp BP Pulse Ox 99.8 F 85 18 122/54 L 99 09/19/18 15:32 09/19/18 15:32 09/19/18 15:32 09/19/18 15:32 09/19/18 15:32 Intake & Output 09/18/18 09/19/18 09/20/18 06:59 06:59 06:59 Intake Total 3237 3251 2025 Output Total 1600 3900 600 Balance 1637 -649 1425 Weight 88.2 kg 91.1 kg General appearance: PRESENT: no acute distress Eye exam: PRESENT: PERRLA Respiratory exam: PRESENT: clear to auscultation martínez Cardiovascular exam: PRESENT: +S1, +S2 GI/Abdominal exam: PRESENT: soft Neurological exam: PRESENT: alert Results Laboratory Results: 09/19/18 08:55 09/19/18 08:55 09/19/18 09/19/18 08:55 08:55 WBC 5.9 RBC 4.12 Hgb 10.7 L D Hct 31.8 L MCV 77 L MCH 26.0 L MCHC 33.6 RDW 14.9 H Plt Count 259 Seg Neutrophils % 76.8 Lymphocytes % 13.4 Monocytes % 8.4 Eosinophils % 1.0 Basophils % 0.4 Absolute Neutrophils 4.5 Absolute Lymphocytes 0.8 Absolute Monocytes 0.5 Absolute Eosinophils 0.1 Absolute Basophils 0.0 Sodium 129.8 L Potassium 4.3 Chloride 103 Carbon Dioxide 17 L Anion Gap 10 BUN 5 L Creatinine 0.98 Est GFR ( Amer) > 60 Est GFR (Non-Af Amer) 57 L Glucose 114 H Calcium 8.3 L 09/16/18 09/16/18 09/17/18 18:20 18:20 02:34 Creatine Kinase 25 L 30 CK-MB (CK-2) 0.22 Troponin I < 0.012 09/17/18 09/17/18 09/17/18 02:34 10:20 10:20 Creatine Kinase 29 L CK-MB (CK-2) 0.36 0.41 Troponin I < 0.012 < 0.012 Impressions: KUB X-Ray 09/16/18 00:00 IMPRESSION: Fecal retention. Assessment & Plan - Diagnosis (1) Intractable vomiting Qualifiers: Vomiting type: unspecified Nausea presence: with nausea Qualified Code(s): R11.2 - Nausea with vomiting, unspecified Is this a current diagnosis for this admission?: Yes (2) Urinary tract infection Qualifiers: Urinary tract infection type: site unspecified Hematuria presence: without hematuria Qualified Code(s): N39.0 - Urinary tract infection, site not specified Is this a current diagnosis for this admission?: Yes Plan: Start IV Cipro (3) Lupus erythematosus Qualifiers: Lupus erythematosus form: systemic Systemic lupus erythematosus type: unspecified Systemic lupus erythematosus organ involvement: unspecified Qualified Code(s): M32.9 - Systemic lupus erythematosus, unspecified Is this a current diagnosis for this admission?: Yes (4) Coronary artery disease Qualifiers: Coronary Disease-Associated Artery/Lesion type: [place] artery [place] vs. transplanted heart: [place] heart Associated angina: without angina Qualified Code(s): I25.10 - Atherosclerotic heart disease of [place] coronary artery without angina pectoris Is this a current diagnosis for this admission?: Yes (5) Urinary tract infection due to Klebsiella species Is this a current diagnosis for this admission?: Yes (6) Infection due to Citrobacter Is this a current diagnosis for this admission?: Yes
[2018-09-19] MEDS: LIDOCAINE 5% (700 MG) TRANSDERMAL ADH..PATCH TP SCH (21:21)
[2018-09-19] MEDS: MONTELUKAST SODIUM 10 MG TABLET PO SCH (21:22)
[2018-09-20] MEDS: ONDANSETRON 4 MG TAB.RAPDIS PO PRN ×3 (00:39→21:27)
[2018-09-20] MEDS: OXYCODONE-ACETAMINOPHEN 5-325 MG TABLET PO PRN ×4 (00:40→21:27)
[2018-09-20] MEDS: POTASSI CL 40 MEQ/NS 1L 1,000 ML IV PRN ×2 (00:41→12:38)
[2018-09-20] MEDS: HYDROMORPHONE HCL INJ/PF 2 MG/ML AMPULE IV PRN ×3 (04:40→16:51)
[2018-09-20] MEDS: ONDANSETRON HCL INJ/PF 4 MG/2 ML SDV IV PRN ×3 (04:40→16:52)
[2018-09-20] MEDS: LEVOTHYROXINE SODIUM 0.1 MG TABLET PO SCH (05:09)
[2018-09-20] MEDS: GABAPENTIN 300 MG CAPSULE PO SCH ×3 (05:09→21:26)
[2018-09-20] MEDS: CIPROFLOXACIN 400 MG/D5W RTU 400 MG/200 ML RTUPB IV SCH ×2 (05:10→17:40)
[2018-09-20] MEDS: CLOPIDOGREL BISULFATE 75 MG TABLET PO SCH (09:10)
[2018-09-20] MEDS: LANSOPRAZOLE 30 MG TAB.RAP.DR PO SCH ×2 (09:10→17:40)
[2018-09-20] MEDS: SERTRALINE HCL 50 MG TABLET PO SCH (09:10)
[2018-09-20] MEDS: SUCRALFATE 1 GM TABLET PO SCH ×4 (09:11→21:26)
[2018-09-20] MEDS: PHARMACY COMMUNICATION ORDER MC SCH (09:16)
[2018-09-20] MEDS: MONTELUKAST SODIUM 10 MG TABLET PO SCH (21:26)
[2018-09-20] MEDS: LIDOCAINE 5% (700 MG) TRANSDERMAL ADH..PATCH TP SCH (21:27)
--- NOTE | 2018-09-20 21:45 | PDOC PROGRESS REPORT ---
Subjective Progress Note for:: 09/20/18 Subjective:: Patient seen by the bedside, complaining of pain Reason For Visit: PERSISTENT VOMITING,FAILED OUTPATIENT THERAPY Physical Exam Vital Signs: Temp Pulse Resp BP Pulse Ox 99.2 F 83 20 132/53 H 99 09/20/18 19:42 09/20/18 19:42 09/20/18 19:42 09/20/18 19:42 09/20/18 19:42 Intake & Output 09/19/18 09/20/18 09/21/18 06:59 06:59 06:59 Intake Total 3251 3225 1380 Output Total 3900 2550 950 Balance -649 675 430 Weight 91.1 kg 91.6 kg General appearance: PRESENT: no acute distress Eye exam: PRESENT: PERRLA Respiratory exam: PRESENT: clear to auscultation martínez Cardiovascular exam: PRESENT: +S1, +S2 GI/Abdominal exam: PRESENT: soft Results Laboratory Results: 09/19/18 08:55 09/19/18 08:55 09/16/18 09/16/18 09/17/18 18:20 18:20 02:34 Creatine Kinase 25 L 30 CK-MB (CK-2) 0.22 Troponin I < 0.012 09/17/18 09/17/18 09/17/18 02:34 10:20 10:20 Creatine Kinase 29 L CK-MB (CK-2) 0.36 0.41 Troponin I < 0.012 < 0.012 Impressions: KUB X-Ray 09/16/18 00:00 IMPRESSION: Fecal retention. Assessment & Plan - Diagnosis (1) Intractable vomiting Qualifiers: Vomiting type: unspecified Nausea presence: with nausea Qualified Code(s): R11.2 - Nausea with vomiting, unspecified Is this a current diagnosis for this admission?: Yes (2) Urinary tract infection Qualifiers: Urinary tract infection type: site unspecified Hematuria presence: without hematuria Qualified Code(s): N39.0 - Urinary tract infection, site not specified Is this a current diagnosis for this admission?: Yes (3) Lupus erythematosus Qualifiers: Lupus erythematosus form: systemic Systemic lupus erythematosus type: unspecified Systemic lupus erythematosus organ involvement: unspecified Qualified Code(s): M32.9 - Systemic lupus erythematosus, unspecified Is this a current diagnosis for this admission?: Yes (4) Coronary artery disease Qualifiers: Coronary Disease-Associated Artery/Lesion type: [place] artery [place] vs. transplanted heart: [place] heart Associated angina: without angina Qualified Code(s): I25.10 - Atherosclerotic heart disease of [place] coronary artery without angina pectoris Is this a current diagnosis for this admission?: Yes (5) Urinary tract infection due to Klebsiella species Is this a current diagnosis for this admission?: Yes Plan: Continue IV antibiotic (6) Infection due to Citrobacter Is this a current diagnosis for this admission?: Yes
[2018-09-21] MEDS: HYDROMORPHONE HCL INJ/PF 2 MG/ML AMPULE IV PRN ×4 (00:55→21:31)
[2018-09-21] MEDS: PROMETHAZINE HCL 25 MG TABLET PO PRN ×3 (00:56→18:15)
[2018-09-21] MEDS: POTASSI CL 40 MEQ/NS 1L 1,000 ML IV PRN ×3 (00:56→23:45)
[2018-09-21] MEDS: ONDANSETRON 4 MG TAB.RAPDIS PO PRN (03:56)
[2018-09-21] MEDS: OXYCODONE-ACETAMINOPHEN 5-325 MG TABLET PO PRN ×3 (03:56→18:15)
[2018-09-21] MEDS: CIPROFLOXACIN 400 MG/D5W RTU 400 MG/200 ML RTUPB IV SCH ×2 (05:38→17:14)
[2018-09-21] MEDS: LEVOTHYROXINE SODIUM 0.1 MG TABLET PO SCH (05:39)
[2018-09-21] MEDS: GABAPENTIN 300 MG CAPSULE PO SCH ×3 (05:39→21:31)
[2018-09-21] MEDS: SUCRALFATE 1 GM TABLET PO SCH ×4 (08:06→21:32)
[2018-09-21] MEDS: PHARMACY COMMUNICATION ORDER MC SCH (09:55)
[2018-09-21] MEDS: LANSOPRAZOLE 30 MG TAB.RAP.DR PO SCH ×2 (10:02→17:14)
[2018-09-21] MEDS: SERTRALINE HCL 50 MG TABLET PO SCH (10:03)
[2018-09-21] MEDS: CLOPIDOGREL BISULFATE 75 MG TABLET PO SCH (10:03)
--- NOTE | 2018-09-21 18:03 | PDOC PROGRESS REPORT ---
Subjective Progress Note for:: 09/21/18 Subjective:: Patient seen by the bedside, complaining of pain Reason For Visit: PERSISTENT VOMITING,FAILED OUTPATIENT THERAPY Physical Exam Vital Signs: Temp Pulse Resp BP Pulse Ox 98.6 F 83 16 135/61 H 96 09/21/18 11:05 09/21/18 14:00 09/21/18 11:05 09/21/18 11:05 09/21/18 11:05 Intake & Output 09/20/18 09/21/18 09/22/18 06:59 06:59 06:59 Intake Total 3225 2880 1000 Output Total 2550 950 Balance 675 1930 1000 Weight 91.6 kg 92.9 kg General appearance: PRESENT: no acute distress, well-developed, well-nourished Head exam: PRESENT: atraumatic, normocephalic Eye exam: PRESENT: conjunctiva pink, EOMI, PERRLA Ear exam: PRESENT: normal external ear exam Mouth exam: PRESENT: moist, tongue midline Neck exam: PRESENT: full ROM Respiratory exam: PRESENT: clear to auscultation martínez Cardiovascular exam: PRESENT: RRR, +S1, +S2 Pulses: PRESENT: normal dorsalis pedis pul, +2 pedal pulses bilateral Vascular exam: PRESENT: normal capillary refill GI/Abdominal exam: PRESENT: normal bowel sounds, soft Rectal exam: PRESENT: deferred Neurological exam: PRESENT: alert, awake, oriented to person, oriented to place, oriented to time, oriented to situation, CN II-XII grossly intact Psychiatric exam: PRESENT: appropriate affect, normal mood Skin exam: PRESENT: dry, intact, warm Results Laboratory Results: 09/19/18 08:55 09/19/18 08:55 09/16/18 09/16/18 09/17/18 18:20 18:20 02:34 Creatine Kinase 25 L 30 CK-MB (CK-2) 0.22 Troponin I < 0.012 09/17/18 09/17/18 09/17/18 02:34 10:20 10:20 Creatine Kinase 29 L CK-MB (CK-2) 0.36 0.41 Troponin I < 0.012 < 0.012 Impressions: KUB X-Ray 09/16/18 00:00 IMPRESSION: Fecal retention. Assessment & Plan - Diagnosis (1) Intractable vomiting Qualifiers: Vomiting type: unspecified Nausea presence: with nausea Qualified Code(s): R11.2 - Nausea with vomiting, unspecified Is this a current diagnosis for this admission?: Yes (2) Urinary tract infection Qualifiers: Urinary tract infection type: site unspecified Hematuria presence: without hematuria Qualified Code(s): N39.0 - Urinary tract infection, site not specified Is this a current diagnosis for this admission?: Yes (3) Lupus erythematosus Qualifiers: Lupus erythematosus form: systemic Systemic lupus erythematosus type: unspecified Systemic lupus erythematosus organ involvement: unspecified Qualified Code(s): M32.9 - Systemic lupus erythematosus, unspecified Is this a current diagnosis for this admission?: Yes (4) Coronary artery disease Qualifiers: Coronary Disease-Associated Artery/Lesion type: [place] artery [place] vs. transplanted heart: [place] heart Associated angina: without angina Qualified Code(s): I25.10 - Atherosclerotic heart disease of [place] coronary artery with out angina pectoris Is this a current diagnosis for this admission?: Yes (5) Urinary tract infection due to Klebsiella species Is this a current diagnosis for this admission?: Yes Plan: Continue IV antibiotic (6) Infection due to Citrobacter Is this a current diagnosis for this admission?: Yes
[2018-09-21] MEDS: ONDANSETRON HCL INJ/PF 4 MG/2 ML SDV IV PRN (21:31)
[2018-09-21] MEDS: MONTELUKAST SODIUM 10 MG TABLET PO SCH (21:32)
[2018-09-21] MEDS: LIDOCAINE 5% (700 MG) TRANSDERMAL ADH..PATCH TP SCH (21:39)
[2018-09-22] MEDS: ONDANSETRON 4 MG TAB.RAPDIS PO PRN ×3 (01:03→16:04)
[2018-09-22] MEDS: OXYCODONE-ACETAMINOPHEN 5-325 MG TABLET PO PRN ×4 (01:03→20:14)
[2018-09-22] MEDS: HYDROMORPHONE HCL INJ/PF 2 MG/ML AMPULE IV PRN ×2 (03:51→09:57)
[2018-09-22] MEDS: ONDANSETRON HCL INJ/PF 4 MG/2 ML SDV IV PRN ×3 (03:51→14:23)
[2018-09-22] MEDS: LEVOTHYROXINE SODIUM 0.1 MG TABLET PO SCH (05:26)
[2018-09-22] MEDS: GABAPENTIN 300 MG CAPSULE PO SCH ×3 (05:26→21:52)
[2018-09-22] MEDS: CIPROFLOXACIN 400 MG/D5W RTU 400 MG/200 ML RTUPB IV SCH ×2 (05:27→17:32)
[2018-09-22] MEDS: SUCRALFATE 1 GM TABLET PO SCH ×4 (08:05→21:52)
[2018-09-22] MEDS: CLOPIDOGREL BISULFATE 75 MG TABLET PO SCH (09:37)
[2018-09-22] MEDS: SERTRALINE HCL 50 MG TABLET PO SCH (09:37)
[2018-09-22] MEDS: PHARMACY COMMUNICATION ORDER MC SCH (09:38)
[2018-09-22] MEDS: LANSOPRAZOLE 30 MG TAB.RAP.DR PO SCH ×2 (09:48→17:32)
[2018-09-22] MEDS: POTASSI CL 40 MEQ/NS 1L 1,000 ML IV PRN ×2 (11:09→21:55)
--- NOTE | 2018-09-22 14:37 | PDOC PROGRESS REPORT ---
Subjective Progress Note for:: 09/22/18 Subjective:: She has oral thrush Reason For Visit: PERSISTENT VOMITING,FAILED OUTPATIENT THERAPY Physical Exam Vital Signs: Temp Pulse Resp BP Pulse Ox 98.3 F 77 18 122/53 L 99 09/22/18 04:35 09/22/18 07:00 09/22/18 04:35 09/22/18 04:35 09/22/18 04:35 Intake & Output 09/21/18 09/22/18 09/23/18 06:59 06:59 06:59 Intake Total 2880 2400 1200 Output Total 950 3600 Balance 1930 -1200 1200 Weight 92.9 kg 92.9 kg General appearance: PRESENT: no acute distress Eye exam: PRESENT: PERRLA Respiratory exam: PRESENT: clear to auscultation martínez Cardiovascular exam: PRESENT: +S1, +S2 Neurological exam: PRESENT: alert Results Laboratory Results: 09/19/18 08:55 09/19/18 08:55 09/16/18 09/16/18 09/17/18 18:20 18:20 02:34 Creatine Kinase 25 L 30 CK-MB (CK-2) 0.22 Troponin I < 0.012 09/17/18 09/17/18 09/17/18 02:34 10:20 10:20 Creatine Kinase 29 L CK-MB (CK-2) 0.36 0.41 Troponin I < 0.012 < 0.012 Impressions: KUB X-Ray 09/16/18 00:00 IMPRESSION: Fecal retention. Assessment & Plan - Diagnosis (1) Intractable vomiting Qualifiers: Vomiting type: unspecified Nausea presence: with nausea Qualified Code(s): R11.2 - Nausea with vomiting, unspecified Is this a current diagnosis for this admission?: Yes (2) Urinary tract infection Qualifiers: Urinary tract infection type: site unspecified Hematuria presence: without hematuria Qualified Code(s): N39.0 - Urinary tract infection, site not specified Is this a current diagnosis for this admission?: Yes Plan: Continue IV Cipro (3) Lupus erythematosus Qualifiers: Lupus erythematosus form: systemic Systemic lupus erythematosus type: unspecified Systemic lupus erythematosus organ involvement: unspecified Qualified Code(s): M32.9 - Systemic lupus erythematosus, unspecified Is this a current diagnosis for this admission?: Yes (4) Coronary artery disease Qualifiers: Coronary Disease-Associated Artery/Lesion type: [place] artery [place] vs. transplanted heart: [place] heart Associated angina: without angina Qualified Code(s): I25.10 - Atherosclerotic heart disease of [place] coronary artery without angina pectoris Is this a current diagnosis for this admission?: Yes (5) Urinary tract infection due to Klebsiella species Is this a current diagnosis for this admission?: Yes (6) Infection due to Citrobacter Is this a current diagnosis for this admission?: Yes - Plan Summary Plan Summary: [facility] Physical therapy
[2018-09-22] MEDS: CYCLOBENZAPRINE HCL 10 MG TABLET PO PRN (16:04)
[2018-09-22] MEDS: NYSTATIN/DEXAMETH/DIPHEN SUSP 120 ML PO SCH ×2 (17:30→21:54)
[2018-09-22] MEDS: PROMETHAZINE HCL 25 MG TABLET PO PRN (21:52)
[2018-09-22] MEDS: MONTELUKAST SODIUM 10 MG TABLET PO SCH (21:52)
[2018-09-22] MEDS: LIDOCAINE 5% (700 MG) TRANSDERMAL ADH..PATCH TP SCH (21:52)
[2018-09-23] MEDS: CYCLOBENZAPRINE HCL 10 MG TABLET PO PRN ×3 (01:25→19:57)
[2018-09-23] MEDS: OXYCODONE-ACETAMINOPHEN 5-325 MG TABLET PO PRN ×4 (03:46→23:10)
[2018-09-23] MEDS: NYSTATIN/DEXAMETH/DIPHEN SUSP 120 ML PO SCH ×5 (05:38→21:32)
[2018-09-23] MEDS: CIPROFLOXACIN 400 MG/D5W RTU 400 MG/200 ML RTUPB IV SCH ×2 (05:38→17:07)
[2018-09-23] MEDS: GABAPENTIN 300 MG CAPSULE PO SCH ×3 (05:38→21:32)
[2018-09-23] MEDS: LEVOTHYROXINE SODIUM 0.1 MG TABLET PO SCH (05:38)
[2018-09-23] MEDS: SUCRALFATE 1 GM TABLET PO SCH ×4 (08:57→21:32)
[2018-09-23] MEDS: ONDANSETRON HCL INJ/PF 4 MG/2 ML SDV IV PRN (09:02)
[2018-09-23] MEDS: CLOPIDOGREL BISULFATE 75 MG TABLET PO SCH (09:53)
[2018-09-23] MEDS: SERTRALINE HCL 50 MG TABLET PO SCH (09:53)
[2018-09-23] MEDS: PHARMACY COMMUNICATION ORDER MC SCH (09:54)
[2018-09-23] MEDS: LANSOPRAZOLE 30 MG TAB.RAP.DR PO SCH ×2 (09:58→17:09)
[2018-09-23] MEDS: POTASSI CL 40 MEQ/NS 1L 1,000 ML IV PRN ×2 (10:00→21:33)
[2018-09-23] MEDS: PROMETHAZINE HCL 25 MG TABLET PO PRN (19:57)
--- NOTE | 2018-09-23 20:55 | PDOC PROGRESS REPORT ---
Subjective Progress Note for:: 09/23/18 Subjective:: She said she is improving Reason For Visit: PERSISTENT VOMITING,FAILED OUTPATIENT THERAPY Physical Exam Vital Signs: Temp Pulse Resp BP Pulse Ox 98.2 F 78 16 130/64 H 97 09/23/18 16:32 09/23/18 16:32 09/23/18 16:32 09/23/18 16:32 09/23/18 16:32 Intake & Output 09/22/18 09/23/18 09/24/18 06:59 06:59 06:59 Intake Total 2400 3952 1218 Output Total 3600 2585 1400 Balance -1200 1367 -182 Weight 92.9 kg 93.6 kg General appearance: PRESENT: no acute distress Head exam: PRESENT: atraumatic, normocephalic Eye exam: PRESENT: PERRLA Neck exam: PRESENT: full ROM Respiratory exam: PRESENT: chest wall tenderness Cardiovascular exam: PRESENT: RRR, +S1, +S2 Vascular exam: PRESENT: normal capillary refill GI/Abdominal exam: PRESENT: normal bowel sounds, soft Rectal exam: PRESENT: deferred Neurological exam: PRESENT: alert, CN II-XII grossly intact Psychiatric exam: PRESENT: appropriate affect, normal mood Skin exam: PRESENT: dry, intact, warm Results Laboratory Results: 09/19/18 08:55 09/19/18 08:55 09/16/18 09/16/18 09/17/18 18:20 18:20 02:34 Creatine Kinase 25 L 30 CK-MB (CK-2) 0.22 Troponin I < 0.012 09/17/18 09/17/18 09/17/18 02:34 10:20 10:20 Creatine Kinase 29 L CK-MB (CK-2) 0.36 0.41 Troponin I < 0.012 < 0.012 Impressions: KUB X-Ray 09/16/18 00:00 IMPRESSION: Fecal retention. Assessment & Plan - Diagnosis (1) Intractable vomiting Qualifiers: Vomiting type: unspecified Nausea presence: with nausea Qualified Code(s): R11.2 - Nausea with vomiting, unspecified Is this a current diagnosis for this admission?: Yes (2) Urinary tract infection Qualifiers: Urinary tract infection type: site unspecified Hematuria presence: without hematuria Qualified Code(s): N39.0 - Urinary tract infection, site not specified Is this a current diagnosis for this admission?: Yes Plan: Continue IV Cipro (3) Lupus erythematosus Qualifiers: Lupus erythematosus form: systemic Systemic lupus erythematosus type: unspecified Systemic lupus erythematosus organ involvement: unspecified Qualified Code(s): M32.9 - Systemic lupus erythematosus, unspecified Is this a current diagnosis for this admission?: Yes (4) Coronary artery disease Qualifiers: Coronary Disease-Associated Artery/Lesion type: [place] artery [place] vs. transplanted heart: [place] heart Associated angina: without angina Qualified Code(s): I25.10 - Atherosclerotic heart disease of [place] coronary artery without angina pectoris Is this a current diagnosis for this admission?: Yes (5) Urinary tract infection due to Klebsiella species Is this a current diagnosis for this admission?: Yes Plan: Continue IV antibiotic (6) Infection due to Citrobacter Is this a current diagnosis for this admission?: Yes
[2018-09-23] MEDS: MONTELUKAST SODIUM 10 MG TABLET PO SCH (21:32)
[2018-09-23] MEDS: LIDOCAINE 5% (700 MG) TRANSDERMAL ADH..PATCH TP SCH (21:32)
[2018-09-23] MEDS: ONDANSETRON 4 MG TAB.RAPDIS PO PRN (23:10)
[2018-09-24] MEDS: LEVOTHYROXINE SODIUM 0.1 MG TABLET PO SCH (05:27)
[2018-09-24] MEDS: NYSTATIN/DEXAMETH/DIPHEN SUSP 120 ML PO SCH ×5 (05:27→21:50)
[2018-09-24] MEDS: GABAPENTIN 300 MG CAPSULE PO SCH ×3 (05:27→21:49)
[2018-09-24] MEDS: ONDANSETRON HCL INJ/PF 4 MG/2 ML SDV IV PRN (05:27)
[2018-09-24] MEDS: OXYCODONE-ACETAMINOPHEN 5-325 MG TABLET PO PRN ×3 (05:27→18:57)
[2018-09-24] MEDS: CIPROFLOXACIN 400 MG/D5W RTU 400 MG/200 ML RTUPB IV SCH ×2 (05:27→17:39)
[2018-09-24] MEDS: SUCRALFATE 1 GM TABLET PO SCH ×4 (08:09→21:49)
[2018-09-24] MEDS: PROMETHAZINE HCL 25 MG TABLET PO PRN ×2 (08:09→18:57)
[2018-09-24] MEDS: CYCLOBENZAPRINE HCL 10 MG TABLET PO PRN ×2 (08:09→17:39)
[2018-09-24] MEDS: CLOPIDOGREL BISULFATE 75 MG TABLET PO SCH (09:08)
[2018-09-24] MEDS: SERTRALINE HCL 50 MG TABLET PO SCH (09:08)
[2018-09-24] MEDS: LANSOPRAZOLE 30 MG TAB.RAP.DR PO SCH ×2 (09:08→17:39)
[2018-09-24] MEDS: PHARMACY COMMUNICATION ORDER MC SCH (09:09)
[2018-09-24] MEDS: POTASSI CL 40 MEQ/NS 1L 1,000 ML IV PRN ×2 (09:10→20:27)
--- NOTE | 2018-09-24 21:07 | PDOC DISCHARGE SUMMARY ---
General - Admit/Disc Date/PCP Admission Date/Primary Care Provider: 09/16/18 16:42 IAN MUÑOZ MD Discharge Date: 09/24/18 - Discharge Diagnosis (1) Intractable vomiting Is this a current diagnosis for this admission?: Yes (2) Urinary tract infection Is this a current diagnosis for this admission?: Yes (3) Lupus erythematosus Is this a current diagnosis for this admission?: Yes (4) Coronary artery disease Is this a current diagnosis for this admission?: Yes (5) Urinary tract infection due to Klebsiella species Is this a current diagnosis for this admission?: Yes (6) Infection due to Citrobacter Is this a current diagnosis for this admission?: Yes - Additional Information Discharge Activity: Activity As Tolerated Home Medications: Hydrocodone Bitartrate [Zohydro ER] 40 mg PO Q12 07/08/18 Levothyroxine Sodium [Synthroid] 100 mcg PO Q6AM 07/08/18 Pantoprazole Sodium [Protonix] 40 mg PO BID 07/08/18 Sertraline HCl [Zoloft 50 mg Tablet] 100 mg PO DAILY 07/08/18 Sucralfate [Carafate 1 gm Tablet] 1 gm PO QID 07/08/18 Zaleplon [Sonata] 10 mg PO HSP PRN 07/08/18 Bethanechol Chloride [Urecholine 10 mg Tablet] 10 mg PO Q8H 08/19/18 Clopidogrel Bisulfate [Plavix 75 mg Tablet] 75 mg PO DAILY 08/19/18 Gabapentin [Neurontin] 600 mg PO TID 08/19/18 Lidocaine [Lidoderm 5% (700 mg) Transdermal Patch] 1 patch TP DAILY 08/19/18 Ondansetron [Zofran Odt 4 mg Tablet] 4 mg PO Q6HP PRN 08/19/18 Oxycodone HCl/Acetaminophen [Percocet 10-325 mg Tablet] 1 each PO Q6HP PRN 08/19/18 Promethazine HCl [Phenergan 25 mg Tablet] 12.5 mg PO Q8HP PRN 08/19/18 Cyanocobalamin (Vitamin B-12) [Vitamin B-12 Inj 1000 Mcg/1 ml Vial] 1,000 mcg IM .MONTHLY 09/16/18 Montelukast Sodium [Singulair 10 mg Tablet] 10 mg PO QHS 09/16/18 Clopidogrel Bisulfate [Plavix 75 mg Tablet] 75 mg PO DAILY tablet 09/24/18 History of Present Illness History of Present Illness: VALENTE MUNOZ is a 63 year old female, Patient was admitted for the management of intractable vomiting, failed outpatient management, she has a history of gastroparesis, this ongoing problem, the last time she was admitted to the hospital, I made arrangements for outpatient infusion with normal saline for patient to receive IV normal saline 3 times a week.She has a history of recurrent urinary tract infection partly due to self catheterization, she has a history of vancomycin resistant enterococcus, ESBL E. coli UTI, the urinalysis that was obtained also showed abnormal urinalysis, bacteriuria, pyuria that sug gest impending UTI and probably sepsis. Unfortunately attempts to keep patient out of the hospital as continuously been unsuccessful Hospital Course Hospital Course: Patient was admitted for the management of persistent, intractable vomiting ,urinary tract infection due to Citrobacter,and Klebsiella pneumonia.The bacteria were sensitive to ciprofloxacin she was treated with IV Cipro.She also require pain medication opioid Dilaudid low-dose for pain control, patient's problem is chronic ,arrangement was made previously for outpatient therapy with normal saline about 3 times a week this process was effective in the first 2 months she was kept out of the hospital for about a month without readmission for the same problem.She has gastroparesis with increased risk of vomiting Physical Exam Vital Signs: Temp Pulse Resp BP Pulse Ox 98.4 F 76 18 150/57 H 99 09/24/18 19:29 09/24/18 19:29 09/24/18 19:29 09/24/18 19:29 09/24/18 19:29 Intake & Output 09/23/18 09/24/18 09/25/18 06:59 06:59 06:59 Intake Total 3952 2858 2969 Output Total 2580 8825 1225 Balance 1367 -1717 1744 Weight 93.6 kg 94.2 kg General appearance: PRESENT: no acute distress, well-developed, well-nourished Head exam: PRESENT: atraumatic, normocephalic Eye exam: PRESENT: conjunctiva pink, EOMI, PERRLA Ear exam: PRESENT: normal external ear exam Mouth exam: PRESENT: moist, tongue midline Neck exam: PRESENT: full ROM Respiratory exam: PRESENT: clear to auscultation martínez Cardiovascular exam: PRESENT: RRR, +S1, +S2 Pulses: PRESENT: normal dorsalis pedis pul, +2 pedal pulses bilateral Vascular exam: PRESENT: normal capillary refill GI/Abdominal exam: PRESENT: normal bowel sounds, soft Neurological exam: PRESENT: alert, awake, oriented to person, oriented to place, oriented to time, oriented to situation, CN II-XII grossly intact Psychiatric exam: PRESENT: appropriate affect, normal mood Skin exam: PRESENT: dry, intact, warm Results Laboratory Results: 09/19/18 08:55 09/19/18 08:55 09/16/18 09/16/18 09/17/18 18:20 18:20 02:34 Creatine Kinase 25 L 30 CK-MB (CK-2) 0.22 Troponin I < 0.012 09/17/18 09/17/18 09/17/18 02:34 10:20 10:20 Creatine Kinase 29 L CK-MB (CK-2) 0.36 0.41 Troponin I < 0.012 < 0.012 Impressions: KUB X-Ray 09/16/18 00:00 IMPRESSION: Fecal retention. Qualifiers - * PATIENT BEING DISCHARGED WITH ANY OF THE FOLLOWING DIAGNOSIS: No
[2018-09-24] MEDS: LIDOCAINE 5% (700 MG) TRANSDERMAL ADH..PATCH TP SCH (21:49)
[2018-09-24] MEDS: MONTELUKAST SODIUM 10 MG TABLET PO SCH (21:49)
[2018-09-25] MEDS: ONDANSETRON 4 MG TAB.RAPDIS PO PRN (02:39)
[2018-09-25] MEDS: OXYCODONE-ACETAMINOPHEN 5-325 MG TABLET PO PRN ×2 (02:39→10:06)
[2018-09-25] MEDS: NYSTATIN/DEXAMETH/DIPHEN SUSP 120 ML PO SCH ×2 (05:42→10:06)
[2018-09-25] MEDS: GABAPENTIN 300 MG CAPSULE PO SCH (05:44)
[2018-09-25] MEDS: LEVOTHYROXINE SODIUM 0.1 MG TABLET PO SCH (05:44)
[2018-09-25] MEDS: SUCRALFATE 1 GM TABLET PO SCH (07:28)
[2018-09-25] MEDS: POTASSI CL 40 MEQ/NS 1L 1,000 ML IV PRN (07:28)
[2018-09-25] MEDS: SERTRALINE HCL 50 MG TABLET PO SCH (10:06)
[2018-09-25] MEDS: CLOPIDOGREL BISULFATE 75 MG TABLET PO SCH (10:06)
[2018-09-25] MEDS: ONDANSETRON HCL INJ/PF 4 MG/2 ML SDV IV PRN (10:06)
[2018-09-25] MEDS: LANSOPRAZOLE 30 MG TAB.RAP.DR PO SCH (10:06)
[2018-09-25] MEDS: PHARMACY COMMUNICATION ORDER MC SCH (10:07)
[2018-09-25 11:00] VITALS: BP 119/68
[2018-10-02] MEDS ORDERED: CYANOCOBALAMIN (VITAMIN B-12) INJ 1000 MCG/1 ML VIAL IM SCH (10:00)
== END 2018-09-25 11:36 | disposition home or self-care (01) | DRG 392 ==
LOC: 3N 16:42
PROVIDERS: ADMIT Internal Medicine; ATTEND Internal Medicine
DX: K31.84 Gastroparesis (principal); N39.0 Urinary tract infection, site not specified; M32.9 Systemic lupus erythematosus, unspecified; J44.9 Chronic obstructive pulmonary disease, unspecified; I25.10 Atherosclerotic heart disease of native coronary artery without angina pectoris; E78.5 Hyperlipidemia, unspecified; E03.9 Hypothyroidism, unspecified; K21.9 Gastro-esophageal reflux disease without esophagitis; M19.90 Unspecified osteoarthritis, unspecified site; M79.7 Fibromyalgia; F32.9 Major depressive disorder, single episode, unspecified; D64.9 Anemia, unspecified; F41.9 Anxiety disorder, unspecified; B96.1 Klebsiella pneumoniae [K. pneumoniae] as the cause of diseases classified elsewhere; B96.89 Other specified bacterial agents as the cause of diseases classified elsewhere; I10 Essential (primary) hypertension; Z96.653 Presence of artificial knee joint, bilateral; Z96.649 Presence of unspecified artificial hip joint; Z87.440 Personal history of urinary (tract) infections; Z86.14 Personal history of Methicillin resistant Staphylococcus aureus infection; Z95.5 Presence of coronary angioplasty implant and graft; Z86.718 Personal history of other venous thrombosis and embolism; I25.2 Old myocardial infarction; Z86.711 Personal history of pulmonary embolism; Z85.41 Personal history of malignant neoplasm of cervix uteri; Z85.43 Personal history of malignant neoplasm of ovary; Z87.891 Personal history of nicotine dependence
CPT/HCPCS: 36415; 74018; 80048; 80076; 81001; 82550; 82553; 82962; 84484; 85025; 87086; 87088; 87186; 93005; 93010; J0744; J1170; J1642; J2405; J3480; J3490; S0119

== ENCOUNTER → 2018-10-01 | Outpatient (CLI) | payer MEDICARE, OTHER ==
[2018-10-01 15:57] LABS: ABSOLUTE LYMPHOCYTES (AUTO) 1.5 10^3/uL (0.5-4.7); ABSOLUTE MONOCYTES (AUTO) 0.6 10^3/uL (0.1-1.4); ABSOLUTE NEUT (AUTO) 6.2 10^3/uL (1.7-8.2); BASOPHILS % (AUTO) 0.3 % (0-2); EOSINOPHILS % (AUTO) 0.3 % (0-6); HEMATOCRIT 42.3 % (36.0-47.0); HEMOGLOBIN 14.2 g/dL (12.0-15.5); LYMPHOCYTES % (AUTO) 18.3 % (13-45); MEAN CORPUSCULAR HEMOGLOBIN 25.3 pg (27.0-33.4); MEAN CORPUSCULAR HGB CONC 33.5 g/dL (32.0-36.0); MEAN CORPUSCULAR VOLUME 76 fl (80-97); MONOCYTES % (AUTO) 6.9 % (3-13); PLATELET COUNT 363 10^3/uL (150-450); RED CELL DISTRIBUTION WIDTH 15.6 % (11.5-14.0); SEGMENTED NEUTROPHILS % (AUTO) 74.2 % (42-78); TOTAL CELLS COUNTED % (AUTO) 100 %; WHITE BLOOD COUNT 8.4 10^3/uL (4.0-10.5)
[2018-10-01 16:28] LABS: ALANINE AMINOTRANSFERASE 23 U/L (9-52); ALBUMIN 4.5 g/dL (3.5-5.0); ALKALINE PHOSPHATASE 126 U/L (38-126); ANION GAP 11 (5-19); ASPARTATE AMINO TRANSFERASE 34 U/L (14-36); BILIRUBIN,DIRECT 0.4 mg/dL (0.0-0.4); BILIRUBIN,TOTAL 0.6 mg/dL (0.2-1.3); BLOOD UREA NITROGEN 12 mg/dL (7-20); CALCIUM 9.7 mg/dL (8.4-10.2); CARBON DIOXIDE 23 mmol/L (22-30); CHLORIDE 100 mmol/L (98-107); GLUCOSE 88 mg/dL (75-110); POTASSIUM 4.5 mmol/L (3.6-5.0); SODIUM 134.3 mmol/L (137-145); TOTAL PROTEIN 7.1 g/dL (6.3-8.2)
== END ==
LOC: OD 14:03
PROVIDERS: ATTEND Internal Medicine
DX: R19.7 Diarrhea, unspecified (principal); R11.10 Vomiting, unspecified
CPT/HCPCS: 36415; 80053; 84436; 84443; 85025

== ENCOUNTER 2018-10-04 14:45 | Inpatient (IN) | payer MEDICARE ==
[2018-10-04] MEDS ORDERED: NORMAL SALINE 1000 ML 1,000 ML IV ONE (17:21)
--- NOTE | 2018-10-04 17:25 | ER Document Report ---
ED General - General Chief Complaint: Nausea/Vomiting/Diarrhea Stated Complaint: VOMITING Notes: 63-year-old female patient with history gastroparesis presents the emergency department having been sent in from Dr. Hilliard's office as a direct admit. Patient is supposed to be a direct admit for dehydration from nausea, vomiting and diarrhea however there are no beds available in the hospital at this time. Dr. Hilliard felt the patient was too unstable to remain waiting at home as per hospital policy for bed to become available so patient was rechecked by myself as the emergency physician in triage. Patient complains that she typically gets IV fluids through her Port-A-Cath twice a week and today they were unable to give her fluids, she feels like her usual diarrhea has increased in rate and frequency. Complains of increasing nausea as well. When asked if she could give us a stool sample she says she is unable to have a bowel movement as she has not had much to eat recently. Patient does have a history of C. difficile colitis. Denies fevers or abdominal pain. Denies blood in her emesis or stool. TRAVEL OUTSIDE OF THE [place] IN LAST 30 DAYS: No - Related Data Allergies/Adverse Reactions: irbesartan [From Avapro] Allergy (Severe, Verified 10/04/18 14:48) swelling of face nitrofurantoin macrocrystalline [From Macrobid] Allergy (Severe, Verified 10/04/18 14:48) Generalized edema Penicillins Allergy (Severe, Verified 10/04/18 14:48) eyes swelled pregabalin [From Lyrica] Allergy (Severe, Verified 10/04/18 14:48) Equilibrium Issues venom-honey bee [bee venom (honey bee)] Allergy (Verified 10/04/18 14:48) Anaphylaxis Past Medical History - General Information source: Patient - Social History Smoking Status: Current Every Day Smoker Chew tobacco use (# tins/day): No Frequency of alcohol use: None Drug Abuse: None Family History: Arthritis, COPD, Hyperlipidemia, Hypertension, Malignancy, Thyroid Disfunction Patient has suicidal ideation: No Patient has homicidal ideation: No - Past Medical History Cardiac Medical History: Reports: Hx Congestive Heart Failure, Hx Coronary Artery Disease, Hx DVT, Hx Heart Attack, Hx Hypercholesterolemia, Hx Hypertension, Hx Pulmonary Embolism Denies: Hx Atrial Fibrillation, Hx Peripheral Vascular Disease, Hx Heart Murmur Pulmonary Medical History: Reports: Hx Bronchitis, Hx COPD Denies: Hx Asthma, Hx Pneumonia, Hx Respiratory Failure, Hx Sleep Apnea, Hx Tuberculosis Neurological Medical History: Denies: Hx Cerebrovascular Accident, Hx Seizures Endocrine Medical History: Reports: Hx Hypothyroidism. Denies: Hx Hyperthyroidism Renal/ Medical History: Reports: Hx Ovarian Cysts. Denies: Hx End Stage Renal Disease, Hx Kidney Stones, Hx Peritoneal Dialysis Malignancy Medical History: Reports: Hx Cervical Cancer, Hx Ovarian Cancer. Denies: Hx Breast Cancer, Hx Leukemia, Hx Lung Cancer GI Medical History: Reports: Hx Gastroesophageal Reflux Disease, Hx Hiatal Hernia - Repaired, Hx Irritable Bowel, Hx Colonoscopy, Hx Endoscopy. Denies: Hx Cirrhosis, Hx Crohn's Disease, Hx Hepatitis, Hx Pancreatitis, Hx Ulcer Musculoskeletal Medical History: Reports Hx Arthritis - Lupus, Reports Hx Fibromyalgia - Lupus, Denies Hx Multiple Sclerosis, Reports Hx Musculoskeletal Deformity, Reports Hx Musculoskeletal Trauma Skin Medical History: Reports Hx Cellulitis - Recently treated, right breast Psychiatric Medical History: Reports: Hx Anxiety, Hx Depression Denies: Hx Bipolar Disorder, Hx Dementia, Hx Post Traumatic Stress Disorder, Hx Schizophrenia Traumatic Medical History: Reports: Hx Fractures - Knee and hip Infectious Medical History: Reports: Hx C-Diff - Was negative in October2015. Not yet successfully collected stool, Hx MRSA, Hx VRE. Denies: Hx Hepatitis, Hx HIV Past Surgical History: Reports: Hx Appendectomy, Hx Bowel Surgery - Polyps, adhesions, Hx Cardiac Catheterization, Hx Cardiac Surgery - 2 stents 2014, Hx Section, Hx Cholecystectomy, Hx Coronary Stent - 3 stents, Hx Genitourinary Surgery - bladder sling, Hx Herniorrhaphy, Hx Hysterectomy, Hx Orthopedic Surgery - Right knee, bilateral knee replacements and hip replacement metal plate in, Hx Tonsillectomy. Denies: Hx Colostomy, Hx Coronary Artery Bypass Graft, Hx Gastric Bypass Surgery, Hx Mastectomy, Hx Open Heart Surgery, Hx Pacemaker, Hx Tubal Ligation - Immunizations Immunizations up to date: Yes Hx Pneumococcal Vaccination: 05/20/11 Review of Systems - Review of Systems Constitutional: Malaise, Weakness EENT: No symptoms reported Gastrointestinal: See HPI -: Yes All other systems reviewed and negative Physical Exam - Vital signs Vitals: Temp Pulse Resp BP Pulse Ox 97.6 F 107 H 20 138/88 H 95 10/04/18 15:11 10/04/18 15:11 10/04/18 15:11 10/04/18 15:11 10/04/18 15:11 Interpretation: Tachycardic - Notes Notes: GENERAL: Alert, interacts well. No acute distress. HEAD: Normocephalic, atraumatic EYES: Pupils equal, round and reactive to light, extraocular movements intact. ENT: Oral mucosa dry, tongue midline. NECK: Full range of motion, supple, trachea midline. LUNGS: Clear to auscultation bilaterally, no wheezes, rales or rhonchi, no respiratory distress. HEART: Regular rate and rhythm, no murmurs, gallops, rubs. ABDOMEN: Soft, nontender, nondistended, bowel sounds present in all 4 quadrants. EXTREMITIES: Moves all 4 extremities spontaneously, no edema, radial and dorsalis pedis pulses 2/4 bilaterally. No cyanosis. NEUROLOGICAL: Alert and oriented x3, normal speech. PSYCH: Normal mood, normal affect. SKIN: Warm, Dry, normal turgor, no rashes or lesions noted. Course - Re-evaluation Re-evalutation: 10/04/18 17:[address] Hilliard's orders, no emergent intervention needed at this time, patient will continue to wait for an inpatient bed. IV access will be obtained by ER nursing, handwritten admit orders will be entered by typing secretary and carried out as per Dr. Hilliard's orders. Patient will receive IV fluids while waiting for a bed. - Vital Signs Vital signs: Temp Pulse Resp BP Pulse Ox 97.6 F 107 H 20 138/88 H 95 10/04/18 15:11 10/04/18 15:11 10/04/18 15:11 10/04/18 15:11 10/04/18 15:11 Discharge - Discharge Clinical Impression: Nausea vomiting and diarrhea, Dehydration Condition: Good Disposition: ADMITTED OBSERVATION Admitting Provider: Arm[facility] Unit Admitted: Medical Floor
[2018-10-04] MEDS ORDERED: CYANOCOBALAMIN (VITAMIN B-12) INJ 1000 MCG/1 ML VIAL IM SCH (20:00)
[2018-10-04] MEDS ORDERED: (PENDING PHARMACY ID) (Oxycodone Hcl/Acetaminophen [Percocet 10-325 Mg Tablet] 1 EACH) PO PRN (20:00)
[2018-10-04] MEDS ORDERED: GLUCAGON,HUMAN RECOMB 1 MG INJ SUBCUT PRN (20:04)
[2018-10-04] MEDS ORDERED: DEXTROSE 50%-WATER 25 GM/50 ML DISP.SYRIN IV PRN ×2 (20:04)
[2018-10-04] MEDS ORDERED: DEXTROSE 40% GEL 15 GM TUBE PO PRN ×2 (20:04)
[2018-10-04 20:39] LABS: ABSOLUTE BASOPHILS # (AUTO) 0.2 10^3/uL (0.0-0.2); ABSOLUTE EOSINOPHILS # (AUTO) 0.1 10^3/uL (0.0-0.6); ABSOLUTE LYMPHOCYTES (AUTO) 2.9 10^3/uL (0.5-4.7); ABSOLUTE MONOCYTES (AUTO) 0.7 10^3/uL (0.1-1.4); ABSOLUTE NEUT (AUTO) 6.4 10^3/uL (1.7-8.2); BASOPHILS % (AUTO) 1.6 % (0-2); EOSINOPHILS % (AUTO) 0.6 % (0-6); HEMATOCRIT 42.3 % (36.0-47.0); HEMOGLOBIN 14.3 g/dL (12.0-15.5); MEAN CORPUSCULAR HEMOGLOBIN 25.6 pg (27.0-33.4); MEAN CORPUSCULAR HGB CONC 33.7 g/dL (32.0-36.0); MEAN CORPUSCULAR VOLUME 76 fl (80-97); MONOCYTES % (AUTO) 6.8 % (3-13); RED BLOOD COUNT 5.58 10^6/uL (3.72-5.28); RED CELL DISTRIBUTION WIDTH 15.9 % (11.5-14.0); TOTAL CELLS COUNTED % (AUTO) 100 %; WHITE BLOOD COUNT 10.2 10^3/uL (4.0-10.5)
[2018-10-04 20:53] LABS: PLATELET COUNT 255 10^3/uL (150-450)
--- NOTE | 2018-10-04 21:07 | RADIOLOGY REPORT (SQ) ---
EXAM DESCRIPTION: XR CHEST 1 VIEW COMPLETED DATE/TME: 10/04/2018 17:30 CLINICAL HISTORY: 63 years, Female, cp COMPARISON: 04/02/2018 chest NUMBER OF VIEWS: 1 TECHNIQUE: Frontal view chest LIMITATIONS: None. FINDINGS: Heart size is normal. [id number] catheter in place. Stability wires project over the thoracic spine. No pneumothorax. Osteopenia. Lungs are clear. IMPRESSION: No acute cardiopulmonary process copyright 2010 [employer]- All Rights Reserved
[2018-10-04 21:09] LABS: ALANINE AMINOTRANSFERASE 16 U/L (9-52); ALBUMIN 4.4 g/dL (3.5-5.0); ALKALINE PHOSPHATASE 121 U/L (38-126); ANION GAP 12 (5-19); ASPARTATE AMINO TRANSFERASE 28 U/L (14-36); BILIRUBIN,DIRECT 0.4 mg/dL (0.0-0.4); BILIRUBIN,TOTAL 0.7 mg/dL (0.2-1.3); BLOOD UREA NITROGEN 11 mg/dL (7-20); CALCIUM 9.7 mg/dL (8.4-10.2); CARBON DIOXIDE 23 mmol/L (22-30); CHLORIDE 98 mmol/L (98-107); GLUCOSE 98 mg/dL (75-110); SODIUM 133.1 mmol/L (137-145); TOTAL PROTEIN 7.2 g/dL (6.3-8.2)
[2018-10-04] MEDS: GABAPENTIN 300 MG CAPSULE PO SCH (21:38)
[2018-10-04] MEDS: SUCRALFATE 1 GM TABLET PO SCH (21:38)
[2018-10-04] MEDS: MONTELUKAST SODIUM 10 MG TABLET PO SCH (21:38)
[2018-10-04] MEDS ORDERED: HYDROCODONE BITARTRATE 40 MG PO SCH (22:00)
[2018-10-04] MEDS: OXYCODONE-ACETAMINOPHEN 5-325 MG TABLET PO PRN (22:11)
[2018-10-04] MEDS: CLOPIDOGREL BISULFATE 75 MG TABLET PO SCH (22:41)
[2018-10-04] MEDS: SERTRALINE HCL 50 MG TABLET PO SCH (22:41)
[2018-10-04] MEDS: LANSOPRAZOLE 30 MG TAB.RAP.DR PO SCH (22:42)
[2018-10-05] MEDS: OXYCODONE HCL IR 5 MG TABLET PO PRN ×3 (02:03→18:03)
[2018-10-05] MEDS: OXYCODONE-ACETAMINOPHEN 5-325 MG TABLET PO PRN ×3 (04:15→18:02)
[2018-10-05] MEDS: LEVOTHYROXINE SODIUM 0.1 MG TABLET PO SCH (06:33)
[2018-10-05] MEDS: GABAPENTIN 300 MG CAPSULE PO SCH ×3 (06:33→21:17)
[2018-10-05] MEDS: LIDOCAINE 5% (700 MG) TRANSDERMAL ADH..PATCH TP SCH ×2 (09:57→10:07)
[2018-10-05] MEDS: LANSOPRAZOLE 30 MG TAB.RAP.DR PO SCH ×2 (10:07→17:56)
[2018-10-05] MEDS: SERTRALINE HCL 50 MG TABLET PO SCH (10:07)
[2018-10-05] MEDS: CLOPIDOGREL BISULFATE 75 MG TABLET PO SCH (10:07)
[2018-10-05] MEDS: SUCRALFATE 1 GM TABLET PO SCH ×4 (10:07→21:18)
--- NOTE | 2018-10-05 10:32 | PDOC CONSULTATION ---
Consultation Consult Date: 10/05/18 Consult reason:: malfunctioning portacath History of Present Illness Admission Date/PCP: 10/04/18 15:29 IAN MUÑOZ MD malfunctioning portacath History of Present Illness: VALENTE MUNOZ is a 63 year old female with long hx of portacath now with malfunctioning port in need of venous access. Past Medical History Cardiac Medical History: Reports: Congestive Heart Failure, Coronary Artery Disease, DVT, Myocardial Infarction, Hyperlipidema, Hypertension, Pulmonary Embolism Denies: Atrial Fibrillation, Peripheral Vascular Disease, Heart Murmur Pulmonary Medical History: Reports: Bronchitis, Chronic Obstructive Pulmonary Disease (COPD) Denies: Asthma, Pneumonia, Respiratory Failure, Sleep Apnea, Tuberculosis Neurological Medical History: Denies: Seizures Endocrine Medical History: Reports: Hypothyroidism Denies: Hyperthyroidism Renal/ Medical History: Denies: End Stage Renal Disease Malignancy Medical History: Reports: Cervical Cancer, Ovarian Cancer Denies: Breast Cancer, Leukemia, Lung Cancer GI Medical History: Reports: Gastroesophageal Reflux Disease, Hiatal Hernia - Repaired Denies: Cirrhosis, Crohn's Disease, Hepatitis Musculoskeltal Medical History: Reports: Arthritis - Lupus, Fibromyalgia - Lupus Psychiatric Medical History: Reports: Depression Denies: Bipolar Disorder, Dementia, Post Traumatic Stress Disorder Hematology: Reports: Anemia - HX OF LOW NA AND K,LOW IRON WILL HAVE IRON TRANS FUSION 05/04. Denies: Hemophilia, Sickle Cell Disease, Bleeding Tendencies Infectious Medical History: Reports: Clostridium Difficile - Was negative in October2015. Not yet successfully collected stool, Methicillin-Resistant Staph Aureus, Vancomycin-Resistant Enterococci Denies: HIV Past Surgical History Past Surgical History: Reports: Appendectomy, Cardiac Catheterization, Section, Cholecystectomy, Coronary Stent - 3 stents, Herniorrhaphy, Hysterectomy, Orthopedic Surgery - Right knee, bilateral knee replacements and hip replacement metal plate in, Tonsillectomy Denies: Amputation, Colostomy, Coronary Artery Bypass Graft, Gastric Bypass Surgery, Mastectomy, Pacemaker, Tubal Ligation Social History Smoking Status: Never Smoker Frequency of Alcohol Use: None Hx Recreational Drug Use: No Drugs: None Hx Prescription Drug Abuse: No Family History Family History: Arthritis, COPD, Hyperlipidemia, Hypertension, Malignancy, Thyroid Disfunction Parental Family History Reviewed: No Children Family History Reviewed: NA Sibling(s) Family History Reviewed.: NA Medication/Allergy Home Medications: Hydrocodone Bitartrate [Zohydro ER] 40 mg PO Q12 07/08/18 Levothyroxine Sodium [Synthroid] 100 mcg PO Q6AM 07/08/18 Pantoprazole Sodium [Protonix] 40 mg PO BID 07/08/18 Sertraline HCl [Zoloft 50 mg Tablet] 100 mg PO DAILY 07/08/18 Sucralfate [Carafate 1 gm Tablet] 1 gm PO QID 07/08/18 Bethanechol Chloride [Urecholine 10 mg Tablet] 10 mg PO Q8 08/19/18 Clopidogrel Bisulfate [Plavix 75 mg Tablet] 75 mg PO DAILY 08/19/18 Gabapentin [Neurontin] 600 mg PO Q8 08/19/18 Lidocaine [Lidoderm 5% (700 mg) Transdermal Patch] 1 patch TP DAILY 08/19/18 Oxycodone HCl/Acetaminophen [Percocet 10-325 mg Tablet] 1 each PO Q6HP PRN 08/19/18 Cyanocobalamin (Vitamin B-12) [Vitamin B-12 Inj 1000 Mcg/1 ml Vial] 1,000 mcg IM .MONTHLY 09/16/18 Montelukast Sodium [Singulair 10 mg Tablet] 10 mg PO QHS 09/16/18 Cyclobenzaprine HCl [Flexeril 10 mg Tablet] 10 mg PO Q8HP PRN 10/04/18 Tizanidine HCl [Zanaflex 4 Mg Tablet] 4 mg PO HSP PRN MDD 8 MG 10/04/18 Zaleplon [Sonata] 10 mg PO HSP PRN 10/04/18 Allergies/Adverse Reactions: irbesartan [From Avapro] Allergy (Severe, Verified 10/04/18 14:48) swelling of face nitrofurantoin macrocrystalline [From Macrobid] Allergy (Severe, Verified 10/04/18 14:48) Generalized edema Penicillins Allergy (Severe, Verified 10/04/18 14:48) eyes swelled pregabalin [From Lyrica] Allergy (Severe, Verified 10/04/18 14:48) Equilibrium Issues venom-honey bee [bee venom (honey bee)] Allergy (Verified 10/04/18 14:48) Anaphylaxis Review of Systems Constitutional: PRESENT: as per HPI Eyes: PRESENT: as per HPI Ears: PRESENT: as per HPI Nose, Mouth, and Throat: PRESENT: as per HPI Breasts: PRESENT: as per HPI Gastrointestinal: PRESENT: as per HPI Genitourinary: PRESENT: as per HPI Musculoskeletal: PRESENT: as per HPI Integumentary: PRESENT: as per HPI Neurological: PRESENT: as per HPI Psychiatric: PRESENT: as per HPI Endocrine: PRESENT: as per HPI Hematologic/Lymphatic: PRESENT: as per HPI Allergic/Immunologic: PRESENT: as per HPI Physical Exam Vital Signs: Temp Pulse Resp BP Pulse Ox 97.7 F 68 17 133/51 H 100 10/05/18 08:46 10/05/18 08:46 10/05/18 08:46 10/05/18 08:46 10/05/18 08:46 Intake & Output 10/04/18 10/05/18 10/06/18 06:59 06:59 06:59 Intake Total 0 Output Total 0 Balance 0 Weight 81.4 kg General appearance: PRESENT: no acute distress Head exam: PRESENT: atraumatic Neck exam: PRESENT: full ROM - portacath palpated on left chest port easily accessed no return flow. Respiratory exam: PRESENT: clear to auscultation martínez, unlabored Cardiovascular exam: PRESENT: RRR Pulses: PRESENT: normal carotid pulses, normal radial pulses, normal femoral pulses GI/Abdominal exam: PRESENT: soft Extremities exam: PRESENT: full ROM Musculoskeletal exam: PRESENT: full ROM Neurological exam: PRESENT: alert, awake Skin exam: PRESENT: dry Results Laboratory Results: 10/04/18 20:25 10/04/18 20:25 10/04/18 10/04/18 20:25 20:25 WBC 10.2 RBC 5.58 H Hgb 14.3 Hct 42.3 MCV 76 L MCH 25.6 L MCHC 33.7 RDW 15.9 H Plt Count 255 Seg Neutrophils % 63.0 Lymphocytes % 28.0 Monocytes % 6.8 Eosinophils % 0.6 Basophils % 1.6 Absolute Neutrophils 6.4 Absolute Lymphocytes 2.9 Absolute Monocytes 0.7 Absolute Eosinophils 0.1 Absolute Basophils 0.2 Sodium 133.1 L Potassium 4.0 Chloride 98 Carbon Dioxide 23 Anion Gap 12 BUN 11 Creatinine 0.87 Est GFR ( Amer) > 60 Est GFR (Non-Af Amer) > 60 Glucose 98 Calcium 9.7 Total Bilirubin 0.7 AST 28 ALT 16 Alkaline Phosphatase 121 Total Protein 7.2 Albumin 4.4 Impressions: Chest X-Ray 10/04/18 17:30 IMPRESSION: No acute cardiopulmonary process copyright 2011 [employer]- All Rights Reserved Status: Image reviewed by me - catheter from port seems to have migrated out of vein old defunctionalized cath in place' cxr discussed iwth Dr Cortez Assessment & Plan - Plan Summary Plan Summary: pt will need new portacath placed on left side and old nonfunctioning port on riight needs to be removed I discussed risks and benifits with pt. they incluided pneumothorax, bleeding injury to major blood vessels bleeding possible she understands and agrees to proceed.
[2018-10-05 12:20] LABS: APPEARANCE,URINE CLEAR; BILIRUBIN,URINE NEGATIVE (NEGATIVE); COLOR,URINE YELLOW; GLUCOSE, URINE NEGATIVE (NEGATIVE); KETONES,URINE NEGATIVE (NEGATIVE); LEUKOCYTE ESTERASE,URINE SMALL (NEGATIVE); NITRITE,URINE NEGATIVE (NEGATIVE); PROTEIN,URINE NEGATIVE (NEGATIVE); URINE SPECIFIC GRAVITY 1.012; UROBILINOGEN,URINE NEGATIVE mg/dL (<2.0)
[2018-10-05] MEDS: LIDOCAINE 1% INJ-PF (10 MG/ML) 30 ML SDV INJ ONE ×2 (14:47→18:06)
[2018-10-05] MEDS ORDERED: VANCOMYCIN HCL 1,000 MG in DEXTROSE 5%-WATER 250 ML IV ONE (15:00)
[2018-10-05] MEDS ORDERED: MIDAZOLAM 2 MG/2 ML INJ ONE (15:10)
[2018-10-05] MEDS ORDERED: LIDOCAINE 2% INJ-PF (20 MG/ML) 10 ML AMPUL ONE (15:10)
[2018-10-05] MEDS ORDERED: FENTANYL CITRATE INJ/PF 100 MCG/2 ML AMPUL ONE (15:10)
[2018-10-05] MEDS ORDERED: PROPOFOL INJ 200 MG/20 ML VIAL IV ONE (15:11)
--- NOTE | 2018-10-05 16:48 | PDOC H&P ---
History of Present Illness Admission Date/PCP: 10/04/18 15:29 IAN MUÑOZ MD History of Present Illness: VALENTE MUNOZ is a 63 year old female,She has gastroparesis with chronic vomiting syndrome with multiple hospitalization arrangement was made for her to receive IV fluid 3 times a week outpatient but unfortunately the Port-A-Cath was malfunctioning, she came to the office because of vomiting and the fact that she was not able to get IV fluid through the Port-A-Cath, so she was admitted essentially for IV fluid therapy and to prevent dehydration which is very prone to. She has a history of recurrent UTI due to the fact that she does self urinary catheterization due to bladder atony.She has other comorbid conditions including systemic lupus atheromatosis, ischemic heart disease status post stent placement of coronary vessels, history of pulmonary embolism Past Medical History Cardiac Medical History: Reports: Congestive Heart Failure, Coronary Artery Disease, DVT, Myocardial Infarction, Hyperlipidema, Hypertension, Pulmonary Embolism Pulmonary Medical History: Reports: Bronchitis, Chronic Obstructive Pulmonary Disease (COPD) Endocrine Medical History: Reports: Hypothyroidism Malignancy Medical History: Reports: Cervical Cancer, Ovarian Cancer GI Medical History: Reports: Gastroesophageal Reflux Disease, Hiatal Hernia - Repaired Musculoskeltal Medical History: Reports: Arthritis - Lupus, Fibromyalgia - Lupus Psychiatric Medical History: Reports: Depression Hematology: Reports: Anemia - HX OF LOW NA AND K,LOW IRON WILL HAVE IRON TRANS FUSION 05/04. Infectious Medical History: Reports: Clostridium Difficile - Was negative in October2015. Not yet successfully collected stool, Methicillin-Resistant Staph Aureus, Vancomycin-Resistant Enterococci Past Surgical History Past Surgical History: Reports: Appendectomy, Cardiac Catheterization, Section, Cholecystectomy, Coronary Stent - 3 stents, Herniorrhaphy, Hysterectomy, Orthopedic Surgery - Right knee, bilateral knee replacements and hip replacement metal plate in, Tonsillectomy Social History Smoking Status: Former Smoker Frequency of Alcohol Use: None Hx Recreational Drug Use: No Drugs: None Hx Prescription Drug Abuse: No Family History Family History: Arthritis, COPD, Hyperlipidemia, Hypertension, Malignancy, Thyroid Disfunction Parental Family History Reviewed: Yes Children Family History Reviewed: Yes Sibling(s) Family History Reviewed.: Yes Medication/Allergy Home Medications: RX: Hydrocodone Bitartrate [Zohydro ER] 40 mg PO Q12 07/08/18 RX: Levothyroxine Sodium [Synthroid] 100 mcg PO Q6AM 07/08/18 RX: Pantoprazole Sodium [Protonix] 40 mg PO BID 07/08/18 RX: Sertraline HCl [Zoloft 50 mg Tablet] 100 mg PO DAILY 07/08/18 RX: Sucralfate [Carafate 1 gm Tablet] 1 gm PO QID 07/08/18 RX: Bethanechol Chloride [Urecholine 10 mg Tablet] 10 mg PO Q8 08/19/18 RX: Clopidogrel Bisulfate [Plavix 75 mg Tablet] 75 mg PO DAILY 08/19/18 RX: Gabapentin [Neurontin] 600 mg PO Q8 08/19/18 RX: Lidocaine [Lidoderm 5% (700 mg) Transdermal Patch] 1 patch TP DAILY 08/19/18 RX: Oxycodone HCl/Acetaminophen [Percocet 10-325 mg Tablet] 1 each PO Q6HP PRN 08/19/18 RX: Cyanocobalamin (Vitamin B-12) [Vitamin B-12 Inj 1000 Mcg/1 ml Vial] 1,000 mcg IM .MONTHLY 09/16/18 RX: Montelukast Sodium [Singulair 10 mg Tablet] 10 mg PO QHS 09/16/18 Cyclobenzaprine HCl [Flexeril 10 mg Tablet] 10 mg PO Q8HP PRN 10/04/18 Tizanidine HCl [Zanaflex 4 Mg Tablet] 4 mg PO HSP PRN MDD 8 MG 10/04/18 Zaleplon [Sonata] 10 mg PO HSP PRN 10/04/18 Allergies/Adverse Reactions: irbesartan [From Avapro] Allergy (Severe, Verified 10/04/18 14:48) swelling of face nitrofurantoin macrocrystalline [From Macrobid] Allergy (Severe, Verified 10/04/18 14:48) Generalized edema Penicillins Allergy (Severe, Verified 10/04/18 14:48) eyes swelled pregabalin [From Lyrica] Allergy (Severe, Verified 10/04/18 14:48) Equilibrium Issues venom-honey bee [bee venom (honey bee)] Allergy (Verified 10/04/18 14:48) Anaphylaxis Review of Systems Constitutional: ABSENT: chills, fever(s), headache(s), weight gain, weight loss Eyes: ABSENT: visual disturbances Ears: ABSENT: hearing changes Cardiovascular: ABSENT: chest pain, dyspnea on exertion, edema, orthropnea, palpitations Respiratory: ABSENT: cough, hemoptysis Gastrointestinal: PRESENT: vomiting. ABSENT: abdominal pain, constipation, diarrhea, hematemesis, hematochezia, nausea Genitourinary: ABSENT: dysuria, hematuria Musculoskeletal: ABSENT: joint swelling Integumentary: ABSENT: rash, wounds Neurological: ABSENT: abnormal gait, abnormal speech, confusion, dizziness, focal weakness, syncope Psychiatric: ABSENT: anxiety, depression, homidical ideation, suicidal ideation Endocrine: ABSENT: cold intolerance, heat intolerance, menstrual abnormalities, polydipsia, polyuria Hematologic/Lymphatic: ABSENT: easy bleeding, easy bruising, lymphadenopathy Physical Exam Vital Signs: Temp Pulse Resp BP Pulse Ox 97.3 F 77 17 134/69 H 100 10/05/18 14:58 10/05/18 14:58 10/05/18 14:58 10/05/18 14:58 10/05/18 14:58 Intake & Output 10/04/18 10/05/18 10/06/18 06:59 06:59 06:59 Intake Total 0 Output Total 0 Balance 0 Weight 81.4 kg General appearance: PRESENT: no acute distress Head exam: PRESENT: atraumatic, normocephalic Eye exam: PRESENT: PERRLA Neck exam: PRESENT: full ROM, tenderness Respiratory exam: PRESENT: clear to auscultation martínez Cardiovascular exam: PRESENT: RRR, +S1, +S2 Vascular exam: PRESENT: normal capillary refill GI/Abdominal exam: PRESENT: normal bowel sounds, soft Rectal exam: PRESENT: deferred Neurological exam: PRESENT: alert, CN II-XII grossly intact Psychiatric exam: PRESENT: appropriate affect, normal mood Skin exam: PRESENT: dry, intact, warm Results Laboratory Results: 10/04/18 20:25 10/04/18 20:25 10/04/18 10/04/18 10/05/18 20:25 20:25 11:30 WBC 10.2 RBC 5.58 H Hgb 14.3 Hct 42.3 MCV 76 L MCH 25.6 L MCHC 33.7 RDW 15.9 H Plt Count 255 Seg Neutrophils % 63.0 Lymphocytes % 28.0 Monocytes % 6.8 Eosinophils % 0.6 Basophils % 1.6 Absolute Neutrophils 6.4 Absolute Lymphocytes 2.9 Absolute Monocytes 0.7 Absolute Eosinophils 0.1 Absolute Basophils 0.2 Sodium 133.1 L Potassium 4.0 Chloride 98 Carbon Dioxide 23 Anion Gap 12 BUN 11 Creatinine 0.87 Est GFR ( Amer) > 60 Est GFR (Non-Af Amer) > 60 Glucose 98 Calcium 9.7 Total Bilirubin 0.7 AST 28 ALT 16 Alkaline Phosphatase 121 Total Protein 7.2 Albumin 4.4 Urine Color YELLOW Urine Appearance CLEAR Urine pH 6.0 Ur Specific Lowber 1.012 Urine Protein NEGATIVE Urine Glucose (UA) NEGATIVE Urine Ketones NEGATIVE Urine Blood NEGATIVE Urine Nitrite NEGATIVE Ur Leukocyte Esterase SMALL H Urine WBC (Auto) 17 Urine RBC (Auto) 4 Assessment & Plan - Diagnosis (1) Intractable vomiting Qualifiers: Vomiting type: unspecified Nausea presence: with nausea Qualified Code(s): R11.2 - Nausea with vomiting, unspecified Is this a current diagnosis for this admission?: Yes Plan: Patient is admitted for management (2) Gastroparesis Is this a current diagnosis for this admission?: Yes
--- NOTE | 2018-10-05 17:41 | RADIOLOGY REPORT (SQ) ---
EXAM DESCRIPTION: CHEST SINGLE VIEW COMPLETED DATE/TIME: 10/05/2018 3:03 pm REASON FOR STUDY: central line placement check COMPARISON: 10/04/2018 NUMBER OF VIEWS: One view. TECHNIQUE: Single frontal radiographic view of the chest acquired. LIMITATIONS: None. FINDINGS: New Central venous access catheter placed via right IJ approach. Catheter tip at cavoatri al junction.. Indwelling subclavian catheter tip at the cavoatrial junction. Indwelling IJ catheter tip in the distal IJ. No pneumothorax. Radiographic appearance of the chest otherwise stable. No pneumothorax. IMPRESSION: New venous access catheter via right IJ approach. Tip at the cavoatrial junction. No p neumothorax. TECHNICAL DOCUMENTATION: JOB ID: [id number] [employer]- All Rights Reserved Reading location - IP/workstation name: [email or web address]
[2018-10-05] MEDS: NORMAL SALINE 1000 ML 1,000 ML IV PRN (17:57)
--- NOTE | 2018-10-05 17:57 | OPERATIVE REPORT E ---
Operative Report NAME: VALENTE MUNOZ : 1955 AGE: 63Y DATE OF SURGERY: 10/05/2018 ROOM: 416 PREOPERATIVE DIAGNOSIS: POOR VEINS FOR IV ACCESS AND NONFUNCTIONING [id number]. POSTOPERATIVE DIAGNOSIS: POOR VEINS FOR IV ACCESS AND NONFUNCTIONING [id number]. OPERATION: Placement of right internal jugular vein triple lumen catheter under ultrasound guidance. SURGEON: GREG BURGESS M.D. ANESTHESIA: Local. INDICATION: This is a 63-year-old female who needed IV medications and does not have any IV access with poor veins and port-a-cath not working. The patient is needing central line placement for now prior to being taken to the OR for placement of new port-a-cath and removal of the old one. PROCEDURE: The patient was placed in the slight Trendelenburg position and both neck areas were then checked with ultrasound. I was not able to see any prominent vein in the left side. She did have previous rvos-c-igrvc before on this side. The right internal jugular vein was noted to be relatively patent with the tip of the port-a-cath appears to be right into the internal jugular vein but unfortunately somehow the port-a-cath got occluded. She does have an old catheter which appears to be through the subclavian vein that is not functioning and left in place. It was then decided to use the right internal jugular vein. The right internal jugular vein area was subsequently prepped and draped in the usual sterile fashion.The internal jugular vein was then identified with the use of ultrasound. and the skin subsequently anesthetized with 1% lidocaine. The right internal jugular vein was subsequently punctured under ultrasound guidance. A guidewire was then passed through the needle towards the area of the superior vena cava. I could only thread the guidewire to about 20 cm. At this point, the puncture site was enlarged and dilated. Dilator was removed and a triple lumen catheter inserted through the guidewire to a distance of about 16 cm. The proximal 2 ports able to aspirate blood and infused saline easily. The more proximal port was not able to aspirate any blood but can inject saline. The catheter was then anchored to the skin with 3-0 silk. A Biopatch placed at the insertion site and after placement of 3-0 silk suture around the catheter keeping the catheter in place. Biopatch was placed at insertion site and a transparent sterile dressing placed over the insertion site. A chest x-ray will be obtained for placement. The patient will be given prophylactic antibiotics for this catheter and possibly use this for anesthesia purposes when she goes to the OR today for placement of a new shhd-h-mxajebry and removal of the old bzdj-o-iigehujz. Patient tolerated the procedure well. A chest x ray was done which showed the catheter coiled up into the neck. No pneumothorax. Since the 2 distal ports are functioning well, the catheter was left in place. It appears that there is occlusion or severe stenosis to the superior vena cava, i decided to hold off placement of new port a catheter. May not be able to place a new one with inability to see the left IJ on ultrasound. Patient and daughter appraised of the situation. Will just leave the Right IJ catheter for this admission. DICTATING PHYSICIAN: GREG BURGESS M.D. [id number] PHY#: [id number] ID: [id number] JOB#: [id number] ACCT: [id number] cc:GREG BURGESS M.D. > MTDD
[2018-10-05] MEDS: MONTELUKAST SODIUM 10 MG TABLET PO SCH (21:17)
[2018-10-06] MEDS: OXYCODONE-ACETAMINOPHEN 5-325 MG TABLET PO PRN ×2 (02:14→17:24)
[2018-10-06] MEDS: OXYCODONE HCL IR 5 MG TABLET PO PRN ×2 (02:15→17:23)
[2018-10-06] MEDS: LEVOTHYROXINE SODIUM 0.1 MG TABLET PO SCH (06:22)
[2018-10-06] MEDS: GABAPENTIN 300 MG CAPSULE PO SCH ×3 (06:22→21:37)
[2018-10-06] MEDS: ONDANSETRON HCL INJ/PF 4 MG/2 ML SDV IV PRN ×2 (07:29→23:40)
[2018-10-06] MEDS: LANSOPRAZOLE 30 MG TAB.RAP.DR PO SCH ×2 (07:29→16:26)
[2018-10-06] MEDS: SUCRALFATE 1 GM TABLET PO SCH ×4 (10:39→21:37)
[2018-10-06] MEDS: LIDOCAINE 5% (700 MG) TRANSDERMAL ADH..PATCH TP SCH (10:39)
[2018-10-06] MEDS: SERTRALINE HCL 50 MG TABLET PO SCH (10:39)
[2018-10-06] MEDS: CLOPIDOGREL BISULFATE 75 MG TABLET PO SCH (10:39)
[2018-10-06] MEDS: PROMETHAZINE HCL 25 MG TABLET PO PRN ×2 (12:06→17:24)
[2018-10-06] MEDS: NORMAL SALINE 1000 ML 1,000 ML IV PRN (19:54)
[2018-10-06] MEDS: MONTELUKAST SODIUM 10 MG TABLET PO SCH (21:37)
[2018-10-06] MEDS: HYDROMORPHONE HCL INJ/PF 2 MG/ML AMPULE IV PRN (23:23)
[2018-10-07] MEDS: PROMETHAZINE HCL 25 MG TABLET PO PRN ×2 (01:12→19:24)
[2018-10-07] MEDS: LEVOTHYROXINE SODIUM 0.1 MG TABLET PO SCH (06:03)
[2018-10-07] MEDS: HYDROMORPHONE HCL INJ/PF 2 MG/ML AMPULE IV PRN ×3 (06:03→21:45)
[2018-10-07] MEDS: GABAPENTIN 300 MG CAPSULE PO SCH ×3 (06:03→21:44)
[2018-10-07] MEDS: ONDANSETRON HCL INJ/PF 4 MG/2 ML SDV IV PRN ×3 (06:04→21:47)
[2018-10-07] MEDS ORDERED: MIDAZOLAM 2 MG/2 ML INJ ONE (08:17)
[2018-10-07] MEDS ORDERED: LIDOCAINE 2% INJ-PF (20 MG/ML) 10 ML AMPUL ONE (08:17)
[2018-10-07] MEDS ORDERED: FENTANYL CITRATE INJ/PF 100 MCG/2 ML AMPUL ONE (08:17)
[2018-10-07] MEDS ORDERED: PROPOFOL INJ 200 MG/20 ML VIAL IV ONE (08:17)
[2018-10-07] MEDS ORDERED: LIDOCAINE 1%/EPINEPHRINE INJ 20 ML VIAL ONE (08:35)
[2018-10-07] MEDS ORDERED: KETAMINE HCL INJ 500 MG/10 ML VIAL ONE (08:36)
[2018-10-07] MEDS: SUCRALFATE 1 GM TABLET PO SCH ×4 (10:00→21:44)
--- NOTE | 2018-10-07 10:21 | Physician Advisory Note ---
Physician Advisor ProgressNote .: Pursuant to the plan for Yesy Gatica, I have reviewed the medical record for this patient. Physician Advisor Statement: ECHO 2015= nl EF, grade I/IV diast dysfunction, mod AR, mild pulm HTN. Meds list includes long acting hydrocodone 40mg q12h. Meds list includes Lasix 40mg qday, per H&P from office, but pt requiring IVF 3x/wk for recurrent dehydration due to gastroparesis/vomiting - please clarify: is Lasix actually PRN, or needed daily despite need for recurrent IVF because ? Please consider documenting, if you agree: 1. "Chronic diastolic CHF w/moderate AR & mild pulmonary HTN", or what other type of CHF does she have? 2. "Chronic opioid dependence"? Or not? (see above) 3. "Chronic hyponatremia, likely due to ____", or "Acute hyponatremia, likely due to ____" 4. Status/medical necessity: Medicare pt in hospital care starting 10/04 PM. Needing IVF that she was unable to get outside of hospital due to nonfunctioning port, that, per Dr. Green, had migrated out of the vein and needed to be replaced. - Appropriately made Obs to start due to needing to eval port, give IVF w/close monitoring due to underlying CHF meanwhile, but expecting short stay. Expectation of payer would be that she would then go for new port the next day, 10/05, & then go home unless there was a complication or new acute issue. - If port replacement could not be done 10/05 or 10/06 due to acute PATIENT issues, please document them, & pt may be appropriate for change to Inpatient status for that reason. (If not done 10/05 or 10/06 due to logistical issues unrelated to the pt's clinical status (such as hospital staffing/OR a vailability/dr hernandez), this is not a reason payer will cover change to INpt status.) - Pt was ordered Zofran/Phenergan/IV DIlaudid on 10/06. If this was due to acute/developing/worsening clinical status issues (rather than attg just hadn't gotten these orders done earlier but meant to), then please document the clinical issues/concerns, & pt may be appropriate for change to Inpt status for that reason. Thanks! CK
[2018-10-07] MEDS ORDERED: DIPHENHYDRAMINE HCL 50 MG/ML VIAL IV PRN (10:57)
[2018-10-07] MEDS ORDERED: ONDANSETRON HCL INJ/PF 4 MG/2 ML SDV IV PRN (10:57)
[2018-10-07] MEDS ORDERED: MORPHINE SULFATE 10 MG/ML INJ IV PRN (10:57)
[2018-10-07] MEDS ORDERED: FENTANYL CITRATE INJ/PF 100 MCG/2 ML AMPUL IV PRN ×3 (10:57)
[2018-10-07] MEDS ORDERED: PROMETHAZINE HCL INJ 25 MG/1 ML VIAL IV PRN ×2 (10:57)
[2018-10-07] MEDS ORDERED: MEPERIDINE HCL/PF INJ 25 MG/1 ML DISP.SYRIN IV PRN (10:57)
[2018-10-07] MEDS ORDERED: CEFAZOLIN INJ 1 GM VIAL ONE (11:22)
--- NOTE | 2018-10-07 12:06 | Operative Report ---
Operative Report DATE OF SURGERY: 10/07/18 PREOPERATIVE DIAGNOSIS: Chronic nausea and vomiting. Malfunctioning right subc lavian Plxfud-c-Uetk catheter, single-chamber POSTOPERATIVE DIAGNOSIS: Same with superior vena cava abnormality OPERATION: 1. Angiography with interpretation of the right internal jugular and superior vena cava via right internal jugular vein catheter. 2. Removal of right subclavian Wuwcoz-y-Alqr catheter. 3. Unsuccessful attempt at access lef t brachial vein. SURGEON: RASHIDA KUMAR ANESTHESIA: LMAC TISSUE REMOVED OR ALTERED: See below COMPLICATIONS: None ESTIMATED BLOOD LOSS: Scant INTRAOPERATIVE FINDINGS: See below PROCEDURE: The patient was found to have a nonfunctioning right subclavian Dibtrw-e-Rvwq catheter on physical examination. Despite this catheter ended in the clavian space possibly out of the venous system. On the ipsilateral side, in the right internal jugular vein, the patient had a triple-lumen central venous access catheter into approximately 18 cm from tip to skin edge. In addition on x-ray the patient had a embedded fragment of what appeared to be a dual lumen catheter starting in the subclavian space and ending the mid right chest. Imaging reviewed with Dr. Sarah Prater. The consensus was to take the patient to the operating room perform angiography, define the pathoanatomy of the deep venous system, remove the nonfunctional Frassk-d-Oshs, and make an attempt at port placement in the left upper extremity. Of note the patient has multiple scars on the right and left subclavian positions. The patient was taken to the operating room where appropriate level of LMAC anesthesia was induced. Left arm was abducted, right neck and chest exposed. Surgical plan surgical timeout were reviewed as described above. Using sterile technique, a series of dilute Isovue images were now shot through the distal and mid position ports on the right internal jugular central venous access catheter. Real-time angiography of digital subtraction was performed. These images revealed multiple, dilated circuitous veins without an apparent grafts into the superior vena cava. Findings were distant with superior vena cava stenosis or obstruction. This portion of the procedure was felt to be complete. We now felt that removal of the right subclavian Fedcxv-y-Vwqc catheter was appropriate as it was accomplishing no useful task. The port site was prepped with Betadine, knees to toes 1% plain lidocaine, 3 cm incision made over the previous scar in the Uzbuac-y-Boku catheter, single-chamber which was affixed to the capsule with Prolene suture was removed in its entirety along with the catheter, and cough. There was no significant bleeding. Wound pocket irrigated. The pseudocapsule was not removed in its entirety. The wound closed with 3-0 Vicryl benzoin Steri-Strips. We now approached the left upper extremity which is prepped and draped sterile fashion in anticipation of a port placement. Resources at [facility] explored and no dedicated arm port could be located. We chose to set her placing a 8 Japanese catheter into a single chamber port. Using ultrasonographic guidance is assist device, the left basilic and brachial veins were identified. Skin was anesthetized 1% plain lidocaine. The left brachial vein was accessed several times with the micro-introducer needle, however the wire could never be advanced satisfactorily up the venous system. The procedure was aborted. We felt that additional expertise would be appropriate in this very complex patient with multiple previous venous access procedures. Dressings were applied. Postop procedure well taken recovery in stable condition.
[2018-10-07] MEDS: CLOPIDOGREL BISULFATE 75 MG TABLET PO SCH (13:52)
[2018-10-07] MEDS: LIDOCAINE 5% (700 MG) TRANSDERMAL ADH..PATCH TP SCH (13:52)
[2018-10-07] MEDS: SERTRALINE HCL 50 MG TABLET PO SCH (13:52)
[2018-10-07] MEDS: LANSOPRAZOLE 30 MG TAB.RAP.DR PO SCH ×2 (13:54→19:28)
[2018-10-07] MEDS: NORMAL SALINE 1000 ML 1,000 ML IV PRN (14:03)
--- NOTE | 2018-10-07 14:38 | RADIOLOGY REPORT (SQ) ---
EXAM DESCRIPTION: NO CHG FLUORO; CHEST SINGLE VIEW COMPLETED DATE/TIME: 10/07/2018 1:49 pm REASON FOR STUDY: RT SIDE ANGIOGRAM IN OR COMPARISON: None. FLUOROSCOPY TIME: 0.5 minutes. 7 images saved to PACS. TECHNIQUE: Intra-operative images acquired during surgical procedure to evaluate progress. NUMBER OF IMAGES: 7 images. LIMITATIONS: None. FINDINGS: Images of the chest acquired during the procedure. IMPRESSION: IMAGE(S) OBTAINED DURING PROCEDURE. COMMENT: Quality ID 145: Final reports for procedures using fluoroscopy that document radiation exp osure indices, or exposure time and number of fluorographic images (if radiation exposure indices are not available) Please consult full operative report of the attending physician for description of the procedure. TECHNICAL DOCUMENTATION: JOB ID: [id number] [employer]- All Rights Reserved Reading location - IP/workstation name: [email or web address]
--- NOTE | 2018-10-07 14:38 | RADIOLOGY REPORT (SQ) ---
EXAM DESCRIPTION: NO CHG FLUORO; CHEST SINGLE VIEW COMPLETED DATE/TIME: 10/07/2018 1:49 pm REASON FOR STUDY: RT SIDE ANGIOGRAM IN OR COMPARISON: None. FLUOROSCOPY TIME: 0.5 minutes. 7 images saved to PACS. TECHNIQUE: Intra-operative images acquired during surgical procedure to evaluate progress. NUMBER OF IMAGES: 7 images. LIMITATIONS: None. FINDINGS: Images of the chest acquired during the procedure. IMPRESSION: IMAGE(S) OBTAINED DURING PROCEDURE. COMMENT: Quality ID 145: Final reports for procedures using fluoroscopy that document radiation exp osure indices, or exposure time and number of fluorographic images (if radiation exposure indices are not available) Please consult full operative report of the attending physician for description of the procedure. TECHNICAL DOCUMENTATION: JOB ID: [id number] [employer]- All Rights Reserved Reading location - IP/workstation name: [email or web address]
[2018-10-07] MEDS: OXYCODONE HCL IR 5 MG TABLET PO PRN (19:25)
[2018-10-07] MEDS: OXYCODONE-ACETAMINOPHEN 5-325 MG TABLET PO PRN (19:26)
--- NOTE | 2018-10-07 21:17 | PDOC PROGRESS REPORT ---
Subjective Progress Note for:: 10/07/18 Subjective:: Patient was seen by the surgeon to 'fix' the malfunctioning Port-A-cath. The surgeon is having difficulty with IV access/Port-A-Cath of this patient. The medication list from the office is not up-to-date furosemide was listed as a medication she takes at home but she is not really taking furosemide because of the recurrent vomiting and diarrhea, she has not been taking any diuretic. Patient was brought in for observation, it seems that she she may stay past 2 midnights because the surgeon could not fix the Port-A-Cath she may require a more specialized vascular surgeon to fix the Port-A-Cath this will make her stay beyond 2 midnights that may qualify for inpatient care she is still on IV fluid maintenance therapy Reason For Visit: PORT MALFUNCTION Physical Exam Vital Signs: Temp Pulse Resp BP Pulse Ox 98.5 F 79 17 136/62 H 98 10/07/18 18:20 10/07/18 18:20 10/07/18 18:20 10/07/18 18:20 10/07/18 18:20 Intake & Output 10/06/18 10/07/18 10/08/18 06:59 06:59 06:59 Intake Total 1336 2820 2741 Output Total 1999 5 Balance -664 2820 2736 Weight 83.7 kg 85.5 kg General appearance: PRESENT: no acute distress Eye exam: PRESENT: PERRLA Respiratory exam: PRESENT: clear to auscultation martínez Cardiovascular exam: PRESENT: +S1, +S2 GI/Abdominal exam: PRESENT: soft Neurological exam: PRESENT: alert, CN II-XII grossly intact Results Laboratory Results: 10/04/18 20:25 10/04/18 20:25 Impressions: Chest X-Ray 10/07/18 00:00 IMPRESSION: IMAGE(S) OBTAINED DURING PROCEDURE. Fluoroscopy 10/07/18 00:00 IMPRESSION: IMAGE(S) OBTAINED DURING PROCEDURE. Assessment & Plan - Diagnosis (1) Intractable vomiting Qualifiers: Vomiting type: unspecified Nausea presence: with nausea Qualified Code(s): R11.2 - Nausea with vomiting, unspecified Is this a current diagnosis for this admission?: Yes Plan: Continue IV fluid therapy (2) Gastroparesis Is this a current diagnosis for this admission?: Yes
[2018-10-07] MEDS: MONTELUKAST SODIUM 10 MG TABLET PO SCH (21:44)
[2018-10-08] MEDS: OXYCODONE HCL IR 5 MG TABLET PO PRN ×3 (01:28→16:28)
[2018-10-08] MEDS: OXYCODONE-ACETAMINOPHEN 5-325 MG TABLET PO PRN ×3 (01:29→16:29)
[2018-10-08] MEDS: PROMETHAZINE HCL 25 MG TABLET PO PRN ×3 (01:30→16:30)
[2018-10-08] MEDS: HYDROMORPHONE HCL INJ/PF 2 MG/ML AMPULE IV PRN ×2 (04:04→13:41)
[2018-10-08] MEDS: ONDANSETRON HCL INJ/PF 4 MG/2 ML SDV IV PRN ×2 (04:05→13:42)
[2018-10-08] MEDS: NORMAL SALINE 1000 ML 1,000 ML IV PRN ×2 (04:13→19:41)
--- NOTE | 2018-10-08 05:38 | Physician Advisory Note ---
Physician Advisor ProgressNote .: Pursuant to the plan for [facility], I have reviewed the medical record for this patient. Physician Advisor Statement: Please see previous Physician Advisor note as well, r.e. status points & dx.s to clarify/document as appropriate - Operation on 10/07 did not go as planned due to very difficult pt anatomy/scarring; unsuccessful attempt to place new port for IV access for recurrent IVF pt needs for maintenance of hydration. Surgeon felt additional expertise appropriate for another attempt, pt still needing to be in hospital at least another night for continued IVF to maintain hydration while she has no IV access that can be safely managed outside of hospital. Appropriate for conversion to Inpatient status. CK
[2018-10-08] MEDS: GABAPENTIN 300 MG CAPSULE PO SCH ×3 (05:49→21:15)
[2018-10-08] MEDS: LEVOTHYROXINE SODIUM 0.1 MG TABLET PO SCH (05:49)
[2018-10-08] MEDS: LANSOPRAZOLE 30 MG TAB.RAP.DR PO SCH ×2 (08:01→16:30)
[2018-10-08] MEDS: CLOPIDOGREL BISULFATE 75 MG TABLET PO SCH (09:25)
[2018-10-08] MEDS: SUCRALFATE 1 GM TABLET PO SCH ×4 (09:25→21:15)
[2018-10-08] MEDS: SERTRALINE HCL 50 MG TABLET PO SCH (09:25)
[2018-10-08] MEDS: LIDOCAINE 5% (700 MG) TRANSDERMAL ADH..PATCH TP SCH (09:28)
--- NOTE | 2018-10-08 20:15 | PDOC PROGRESS REPORT ---
Subjective Progress Note for:: 10/08/18 Subjective:: Patient was seen by the surgeon to 'fix' the malfunctioning Port-A-cath. The surgeon is having difficulty with IV access/Port-A-Cath of this patient. The medication list from the office is not up-to-date furosemide was listed as a medication she takes at home but she is not really taking furosemide because of the recurrent vomiting and diarrhea, she has not been taking any diuretic. Patient was brought in for observation, it seems that she she may stay past 2 midnights because the surgeon could not fix the Port-A-Cath she may require a more specialized vascular surgeon to fix the Port-A-Cath this will make her stay beyond 2 midnights that may qualify for inpatient care she is still on IV fluid maintenance therapy Reason For Visit: PORT MALFUNCTION Physical Exam Vital Signs: Temp Pulse Resp BP Pulse Ox 98.5 F 87 17 139/70 H 98 10/08/18 15:31 10/08/18 15:31 10/08/18 15:31 10/08/18 15:31 10/08/18 15:31 Intake & Output 10/07/18 10/08/18 10/09/18 06:59 06:59 06:59 Intake Total 2820 4651 1000 Output Total 5 Balance 2820 4646 1000 Weight 85.5 kg 88.3 kg General appearance: PRESENT: no acute distress Eye exam: PRESENT: PERRLA Respiratory exam: PRESENT: clear to auscultation martínez Cardiovascular exam: PRESENT: +S1, +S2 GI/Abdominal exam: PRESENT: soft Neurological exam: PRESENT: alert, CN II-XII grossly intact Results Laboratory Results: 10/04/18 20:25 10/04/18 20:25 Impressions: Chest X-Ray 10/07/18 00:00 IMPRESSION: IMAGE(S) OBTAINED DURING PROCEDURE. Fluoroscopy 10/07/18 00:00 IMPRESSION: IMAGE(S) OBTAINED DURING PROCEDURE. Assessment & Plan - Diagnosis (1) Intractable vomiting Qualifiers: Vomiting type: unspecified Nausea presence: with nausea Qualified Code(s): R11.2 - Nausea with vomiting, unspecified Is this a current diagnosis for this admission?: Yes Plan: Continue IV fluid therapy (2) Gastroparesis Is this a current diagnosis for this admission?: Yes
[2018-10-08] MEDS: MONTELUKAST SODIUM 10 MG TABLET PO SCH (21:14)
[2018-10-09] MEDS: ONDANSETRON HCL INJ/PF 4 MG/2 ML SDV IV PRN ×3 (02:04→17:00)
[2018-10-09] MEDS: HYDROMORPHONE HCL INJ/PF 2 MG/ML AMPULE IV PRN ×3 (02:04→16:59)
[2018-10-09] MEDS: LEVOTHYROXINE SODIUM 0.1 MG TABLET PO SCH (05:01)
[2018-10-09] MEDS: PROMETHAZINE HCL 25 MG TABLET PO PRN ×3 (05:01→21:05)
[2018-10-09] MEDS: GABAPENTIN 300 MG CAPSULE PO SCH ×3 (05:01→21:05)
[2018-10-09] MEDS: OXYCODONE-ACETAMINOPHEN 5-325 MG TABLET PO PRN (05:02)
[2018-10-09] MEDS: LANSOPRAZOLE 30 MG TAB.RAP.DR PO SCH ×2 (09:35→16:59)
[2018-10-09] MEDS: CLOPIDOGREL BISULFATE 75 MG TABLET PO SCH (09:36)
[2018-10-09] MEDS: LIDOCAINE 5% (700 MG) TRANSDERMAL ADH..PATCH TP SCH (09:36)
[2018-10-09] MEDS: SERTRALINE HCL 50 MG TABLET PO SCH (09:36)
[2018-10-09] MEDS: SUCRALFATE 1 GM TABLET PO SCH ×4 (09:36→21:05)
[2018-10-09] MEDS: NORMAL SALINE 1000 ML 1,000 ML IV PRN (09:37)
[2018-10-09] MEDS: OXYCODONE HCL IR 5 MG TABLET PO PRN ×2 (13:40→21:06)
--- NOTE | 2018-10-09 19:56 | PDOC PROGRESS REPORT ---
Subjective Progress Note for:: 10/09/18 Subjective:: Patient seen by the bedside Reason For Visit: INTRACTABLE VOMITING Physical Exam Vital Signs: Temp Pulse Resp BP Pulse Ox 98.3 F 77 16 134/74 H 100 10/09/18 12:00 10/09/18 12:00 10/09/18 12:00 10/09/18 12:00 10/09/18 12:00 Intake & Output 10/08/18 10/09/18 10/10/18 06:59 06:59 06:59 Intake Total 4651 2019 1474 Output Total 5 Balance 4646 2019 147 Weight 88.3 kg 91.1 kg 91.1 kg General appearance: PRESENT: no acute distress Eye exam: PRESENT: PERRLA Respiratory exam: PRESENT: clear to auscultation martínez Cardiovascular exam: PRESENT: +S1, +S2 GI/Abdominal exam: PRESENT: soft Neurological exam: PRESENT: alert, CN II-XII grossly intact Results Laboratory Results: 10/04/18 20:25 10/04/18 20:25 Impressions: Chest X-Ray 10/07/18 00:00 IMPRESSION: IMAGE(S) OBTAINED DURING PROCEDURE. Fluoroscopy 10/07/18 00:00 IMPRESSION: IMAGE(S) OBTAINED DURING PROCEDURE. Assessment & Plan - Diagnosis (1) Intractable vomiting Qualifiers: Vomiting type: unspecified Nausea presence: with nausea Qualified Code(s): R11.2 - Nausea with vomiting, unspecified Is this a current diagnosis for this admission?: Yes (2) Gastroparesis Is this a current diagnosis for this admission?: Yes
[2018-10-09] MEDS: MONTELUKAST SODIUM 10 MG TABLET PO SCH (21:05)
[2018-10-09 22:00] LABS: ABSOLUTE EOSINOPHILS # (AUTO) 0.2 10^3/uL (0.0-0.6); ABSOLUTE MONOCYTES (AUTO) 0.7 10^3/uL (0.1-1.4); ABSOLUTE NEUT (AUTO) 3.3 10^3/uL (1.7-8.2); BASOPHILS % (AUTO) 0.5 % (0-2); HEMATOCRIT 32.3 % (36.0-47.0); HEMOGLOBIN 10.6 g/dL (12.0-15.5); LYMPHOCYTES % (AUTO) 32.1 % (13-45); MEAN CORPUSCULAR HEMOGLOBIN 25.5 pg (27.0-33.4); MEAN CORPUSCULAR HGB CONC 32.9 g/dL (32.0-36.0); MEAN CORPUSCULAR VOLUME 78 fl (80-97); MONOCYTES % (AUTO) 10.7 % (3-13); PLATELET COUNT 322 10^3/uL (150-450); RED BLOOD COUNT 4.17 10^6/uL (3.72-5.28); RED CELL DISTRIBUTION WIDTH 16.1 % (11.5-14.0); SEGMENTED NEUTROPHILS % (AUTO) 53.7 % (42-78); TOTAL CELLS COUNTED % (AUTO) 100 %; WHITE BLOOD COUNT 6.2 10^3/uL (4.0-10.5)
[2018-10-09 22:15] LABS: ALANINE AMINOTRANSFERASE 23 U/L (9-52); ALBUMIN 3.4 g/dL (3.5-5.0); ALKALINE PHOSPHATASE 95 U/L (38-126); ANION GAP 8 (5-19); ASPARTATE AMINO TRANSFERASE 20 U/L (14-36); BILIRUBIN,DIRECT 0.2 mg/dL (0.0-0.4); BILIRUBIN,TOTAL 0.3 mg/dL (0.2-1.3); BLOOD UREA NITROGEN 8 mg/dL (7-20); CALCIUM 8.8 mg/dL (8.4-10.2); CARBON DIOXIDE 24 mmol/L (22-30); CHLORIDE 105 mmol/L (98-107); GLUCOSE 96 mg/dL (75-110); POTASSIUM 3.9 mmol/L (3.6-5.0); SODIUM 136.8 mmol/L (137-145)
[2018-10-10] MEDS: NORMAL SALINE 1000 ML 1,000 ML IV PRN ×2 (00:06→14:24)
[2018-10-10] MEDS: ONDANSETRON HCL INJ/PF 4 MG/2 ML SDV IV PRN ×4 (00:08→19:20)
[2018-10-10] MEDS: HYDROMORPHONE HCL INJ/PF 2 MG/ML AMPULE IV PRN ×4 (00:08→19:20)
[2018-10-10] MEDS: PROMETHAZINE HCL 25 MG TABLET PO PRN ×3 (04:04→22:09)
[2018-10-10] MEDS: OXYCODONE HCL IR 5 MG TABLET PO PRN ×3 (04:04→22:08)
[2018-10-10 05:38] LABS: ABSOLUTE EOSINOPHILS # (AUTO) 0.2 10^3/uL (0.0-0.6); ABSOLUTE LYMPHOCYTES (AUTO) 1.5 10^3/uL (0.5-4.7); ABSOLUTE MONOCYTES (AUTO) 0.6 10^3/uL (0.1-1.4); ABSOLUTE NEUT (AUTO) 3.4 10^3/uL (1.7-8.2); BASOPHILS % (AUTO) 0.4 % (0-2); EOSINOPHILS % (AUTO) 2.7 % (0-6); HEMOGLOBIN 9.9 g/dL (12.0-15.5); LYMPHOCYTES % (AUTO) 25.7 % (13-45); MEAN CORPUSCULAR HEMOGLOBIN 25.9 pg (27.0-33.4); MEAN CORPUSCULAR VOLUME 76 fl (80-97); MONOCYTES % (AUTO) 11.2 % (3-13); PLATELET COUNT 318 10^3/uL (150-450); RED BLOOD COUNT 3.81 10^6/uL (3.72-5.28); RED CELL DISTRIBUTION WIDTH 15.7 % (11.5-14.0); TOTAL CELLS COUNTED % (AUTO) 100 %; WHITE BLOOD COUNT 5.7 10^3/uL (4.0-10.5)
[2018-10-10 05:52] LABS: ALANINE AMINOTRANSFERASE 16 U/L (9-52); ALBUMIN 3.1 g/dL (3.5-5.0); ALKALINE PHOSPHATASE 91 U/L (38-126); ANION GAP 7 (5-19); ASPARTATE AMINO TRANSFERASE 12 U/L (14-36); BILIRUBIN,DIRECT 0.2 mg/dL (0.0-0.4); BILIRUBIN,TOTAL 0.3 mg/dL (0.2-1.3); BLOOD UREA NITROGEN 6 mg/dL (7-20); CALCIUM 8.6 mg/dL (8.4-10.2); CARBON DIOXIDE 25 mmol/L (22-30); CHLORIDE 104 mmol/L (98-107); GLUCOSE 94 mg/dL (75-110); POTASSIUM 4.3 mmol/L (3.6-5.0); SODIUM 136.4 mmol/L (137-145); TOTAL PROTEIN 5.3 g/dL (6.3-8.2)
[2018-10-10] MEDS: GABAPENTIN 300 MG CAPSULE PO SCH ×3 (06:04→22:09)
[2018-10-10] MEDS: LEVOTHYROXINE SODIUM 0.1 MG TABLET PO SCH (06:07)
[2018-10-10] MEDS: OXYCODONE-ACETAMINOPHEN 5-325 MG TABLET PO PRN ×2 (07:50→17:41)
[2018-10-10] MEDS: LANSOPRAZOLE 30 MG TAB.RAP.DR PO SCH ×2 (07:50→17:39)
[2018-10-10] MEDS: SERTRALINE HCL 50 MG TABLET PO SCH (10:17)
[2018-10-10] MEDS: SUCRALFATE 1 GM TABLET PO SCH ×4 (10:17→22:08)
[2018-10-10] MEDS: CLOPIDOGREL BISULFATE 75 MG TABLET PO SCH (10:17)
[2018-10-10] MEDS: LIDOCAINE 5% (700 MG) TRANSDERMAL ADH..PATCH TP SCH (10:19)
--- NOTE | 2018-10-10 21:50 | PDOC PROGRESS REPORT ---
Subjective Progress Note for:: 10/10/18 Subjective:: Patient seen by the bedside,Still requiring IV fluid, no Port-A-Cath revision yet Reason For Visit: INTRACTABLE VOMITING Physical Exam Vital Signs: Temp Pulse Resp BP Pulse Ox 99.1 F 83 17 126/79 H 95 10/10/18 15:43 10/10/18 15:43 10/10/18 15:43 10/10/18 15:43 10/10/18 15:43 Intake & Output 10/09/18 10/10/18 10/11/18 06:59 06:59 06:59 Intake Total 2019 3375 1650 Balance 2019 3375 1650 Weight 91.1 kg 91.2 kg General appearance: PRESENT: no acute distress Eye exam: PRESENT: PERRLA Respiratory exam: PRESENT: clear to auscultation martínez Cardiovascular exam: PRESENT: +S1, +S2 GI/Abdominal exam: PRESENT: soft Neurological exam: PRESENT: alert Results Laboratory Results: 10/10/18 05:22 10/10/18 05:22 10/09/18 10/09/18 10/10/18 21:50 21:50 05:22 WBC 6.2 5.7 RBC 4.17 3.81 Hgb 10.6 L 9.9 L Hct 32.3 L 29.0 L MCV 78 L 76 L MCH 25.5 L 25.9 L MCHC 32.9 34.0 RDW 16.1 H 15.7 H Plt Count 322 318 Seg Neutrophils % 53.7 60.0 Lymphocytes % 32.1 25.7 Monocytes % 10.7 11.2 Eosinophils % 3.0 2.7 Basophils % 0.5 0.4 Absolute Neutrophils 3.3 3.4 Absolute Lymphocytes 2.0 1.5 Absolute Monocytes 0.7 0.6 Absolute Eosinophils 0.2 0.2 Absolute Basophils 0.0 0.0 Sodium 136.8 L Potassium 3.9 Chloride 105 Carbon Dioxide 24 Anion Gap 8 BUN 8 Creatinine 0.80 Est GFR ( Amer) > 60 Est GFR (Non-Af Amer) > 60 Glucose 96 Calcium 8.8 Total Bilirubin 0.3 AST 20 ALT 23 Alkaline Phosphatase 95 Total Protein 6.0 L Albumin 3.4 L 10/10/18 05:22 WBC RBC Hgb Hct MCV MCH MCHC RDW Plt Count Seg Neutrophils % Lymphocytes % Monocytes % Eosinophils % Basophils % Absolute Neutrophils Absolute Lymphocytes Absolute Monocytes Absolute Eosinophils Absolute Basophils Sodium 136.4 L Potassium 4.3 Chloride 104 Carbon Dioxide 25 Anion Gap 7 BUN 6 L Creatinine 0.80 Est GFR ( Amer) > 60 Est GFR (Non-Af Amer) > 60 Glucose 94 Calcium 8.6 Total Bilirubin 0.3 AST 12 L ALT 16 Alkaline Phosphatase 91 Total Protein 5.3 L Albumin 3.1 L Impressions: Chest X-Ray 10/07/18 00:00 IMPRESSION: IMAGE(S) OBTAINED DURING PROCEDURE. Fluoroscopy 10/07/18 00:00 IMPRESSION: IMAGE(S) OBTAINED DURING PROCEDURE. Assessment & Plan - Diagnosis (1) Intractable vomiting Qualifiers: Vomiting type: unspecified Nausea presence: with nausea Qualified Code(s): R11.2 - Nausea with vomiting, unspecified Is this a current diagnosis for this admission?: Yes Plan: Continue IV fluid therapy (2) Gastroparesis Is this a current diagnosis for this admission?: Yes
[2018-10-10] MEDS: MONTELUKAST SODIUM 10 MG TABLET PO SCH (22:08)
[2018-10-11] MEDS: HYDROMORPHONE HCL INJ/PF 2 MG/ML AMPULE IV PRN ×4 (03:00→22:46)
[2018-10-11] MEDS: ONDANSETRON HCL INJ/PF 4 MG/2 ML SDV IV PRN ×4 (03:00→22:46)
[2018-10-11] MEDS: NORMAL SALINE 1000 ML 1,000 ML IV PRN ×2 (05:10→17:03)
[2018-10-11] MEDS: GABAPENTIN 300 MG CAPSULE PO SCH ×3 (05:11→22:45)
[2018-10-11] MEDS: OXYCODONE HCL IR 5 MG TABLET PO PRN ×3 (05:12→19:54)
[2018-10-11] MEDS: LEVOTHYROXINE SODIUM 0.1 MG TABLET PO SCH (05:12)
[2018-10-11] MEDS: PROMETHAZINE HCL 25 MG TABLET PO PRN ×3 (05:12→19:55)
[2018-10-11] MEDS: SUCRALFATE 1 GM TABLET PO SCH ×4 (09:17→22:46)
[2018-10-11] MEDS: LIDOCAINE 5% (700 MG) TRANSDERMAL ADH..PATCH TP SCH (09:17)
[2018-10-11] MEDS: CLOPIDOGREL BISULFATE 75 MG TABLET PO SCH (09:17)
[2018-10-11] MEDS: LANSOPRAZOLE 30 MG TAB.RAP.DR PO SCH ×2 (09:17→16:58)
[2018-10-11] MEDS: SERTRALINE HCL 50 MG TABLET PO SCH (09:17)
[2018-10-11] MEDS: OXYCODONE-ACETAMINOPHEN 5-325 MG TABLET PO PRN (19:54)
--- NOTE | 2018-10-11 20:24 | PDOC PROGRESS REPORT ---
Subjective Progress Note for:: 10/11/18 Subjective:: Patient seen by the bedside,Still requiring IV fluid, no Port-A-Cath revision yet Reason For Visit: INTRACTABLE VOMITING Physical Exam Vital Signs: Temp Pulse Resp BP Pulse Ox 98.6 F 88 17 146/81 H 94 10/11/18 19:43 10/11/18 19:43 10/11/18 15:56 10/11/18 19:43 10/11/18 19:43 Intake & Output 10/10/18 10/11/18 10/12/18 06:59 06:59 06:59 Intake Total 3375 3550 2432 Balance 3375 3550 2432 Weight 91.2 kg 91.9 kg General appearance: PRESENT: no acute distress Eye exam: PRESENT: PERRLA Respiratory exam: PRESENT: clear to auscultation martínez Cardiovascular exam: PRESENT: +S1, +S2 Neurological exam: PRESENT: alert Results Laboratory Results: 10/10/18 05:22 10/10/18 05:22 Impressions: Chest X-Ray 10/07/18 00:00 IMPRESSION: IMAGE(S) OBTAINED DURING PROCEDURE. Fluoroscopy 10/07/18 00:00 IMPRESSION: IMAGE(S) OBTAINED DURING PROCEDURE. Assessment & Plan - Diagnosis (1) Intractable vomiting Qualifiers: Vomiting type: unspecified Nausea presence: with nausea Qualified Code(s): R11.2 - Nausea with vomiting, unspecified Is this a current diagnosis for this admission?: Yes Plan: Continue IV fluid therapy (2) Gastroparesis Is this a current diagnosis for this admission?: Yes
[2018-10-11] MEDS: MONTELUKAST SODIUM 10 MG TABLET PO SCH (22:45)
[2018-10-12] MEDS: OXYCODONE HCL IR 5 MG TABLET PO PRN ×4 (02:00→23:34)
[2018-10-12] MEDS: PROMETHAZINE HCL 25 MG TABLET PO PRN ×4 (02:01→23:34)
[2018-10-12] MEDS: OXYCODONE-ACETAMINOPHEN 5-325 MG TABLET PO PRN ×4 (02:01→23:35)
[2018-10-12] MEDS: HYDROMORPHONE HCL INJ/PF 2 MG/ML AMPULE IV PRN ×3 (05:10→18:43)
[2018-10-12] MEDS: GABAPENTIN 300 MG CAPSULE PO SCH ×3 (05:14→21:44)
[2018-10-12] MEDS: LEVOTHYROXINE SODIUM 0.1 MG TABLET PO SCH (05:14)
[2018-10-12] MEDS: ONDANSETRON HCL INJ/PF 4 MG/2 ML SDV IV PRN ×3 (05:15→18:44)
[2018-10-12] MEDS: NORMAL SALINE 1000 ML 1,000 ML IV PRN ×2 (05:23→17:37)
[2018-10-12] MEDS: LANSOPRAZOLE 30 MG TAB.RAP.DR PO SCH ×2 (08:15→17:33)
[2018-10-12] MEDS: SERTRALINE HCL 50 MG TABLET PO SCH (09:39)
[2018-10-12] MEDS: SUCRALFATE 1 GM TABLET PO SCH ×4 (09:39→21:44)
[2018-10-12] MEDS: LIDOCAINE 5% (700 MG) TRANSDERMAL ADH..PATCH TP SCH (09:39)
[2018-10-12] MEDS: CLOPIDOGREL BISULFATE 75 MG TABLET PO SCH (09:39)
--- NOTE | 2018-10-12 16:57 | PDOC PROGRESS REPORT ---
Subjective Progress Note for:: 10/12/18 Subjective:: Patient continue to experience nausea but no vomiting. No abdominal pain. She reported right breast pain since attempts at placing new port-a-cath device. No chest pain or difficulty with breathing. Reason For Visit: INTRACTABLE VOMITING Physical Exam Vital Signs: Temp Pulse Resp BP Pulse Ox 98.0 F 77 18 130/56 H 96 10/12/18 15:13 10/12/18 15:13 10/12/18 15:13 10/12/18 15:13 10/12/18 15:13 Intake & Output 10/11/18 10/12/18 10/13/18 06:59 06:59 06:59 Intake Total 3550 4195 580 Output Total 200 Balance 3550 4195 380 Weight 91.9 kg 92.4 kg General appearance: PRESENT: no acute distress, obese Head exam: PRESENT: atraumatic, normocephalic Eye exam: PRESENT: conjunctiva pink, EOMI, PERRLA. ABSENT: scleral icterus Ear exam: PRESENT: normal external ear exam Mouth exam: PRESENT: moist Respiratory exam: PRESENT: clear to auscultation martínez Cardiovascular exam: PRESENT: RRR. ABSENT: diastolic murmur, rubs, systolic murmur Vascular exam: PRESENT: normal capillary refill. ABSENT: pallor GI/Abdominal exam: PRESENT: normal bowel sounds, soft. ABSENT: distended, guarding, mass, organolmegaly, rebound, tenderness Extremities exam: ABSENT: pedal edema Neurological exam: PRESENT: alert, awake, oriented to person, oriented to place, oriented to time, oriented to situation, CN II-XII grossly intact. ABSENT: motor sensory deficit Psychiatric exam: PRESENT: appropriate affect, normal mood. ABSENT: homicidal ideation, suicidal ideation Skin exam: PRESENT: dry, warm Results Laboratory Results: 10/10/18 05:22 10/10/18 05:22 Impressions: Chest X-Ray 10/07/18 00:00 IMPRESSION: IMAGE(S) OBTAINED DURING PROCEDURE. Fluoroscopy 10/07/18 00:00 IMPRESSION: IMAGE(S) OBTAINED DURING PROCEDURE. Assessment & Plan - Diagnosis (1) Gastroparesis Is this a current diagnosis for this admission?: Yes (2) Intractable vomiting Qualifiers: Vomiting type: unspecified Nausea presence: with nausea Qualified Code(s): R11.2 - Nausea with vomiting, unspecified Is this a current diagnosis for this admission?: Yes - Time Time Spent with patient: 25-34 minutes Medications reviewed and adjusted accordingly: Yes Anticipated discharge: Home with Homehealth Within: Other - Inpatient Certification Based on my medical assessment, after consideration of the patient's co morbidities, presenting symptoms, or acuity I expect that the services needed warrant INPATIENT care.: Yes I certify that my determination is in accordance with my understanding of Medicare's requirements for reasonable and necessary INPATIENT services [42 CFR 412.3e].: Yes Medical Necessity: Need Close Monitoring Due to Risk of Patient Decompensation, Need For IV Fluids, Risk of Complication if Not Cared For in Hospital Post Hospital Care: D/C Puncher And Fastener Documentation - Plan Summary Plan Summary: Continue current IV fluid support. Follow up on surgical consult need for port-a-cath placement.
[2018-10-12] MEDS: MONTELUKAST SODIUM 10 MG TABLET PO SCH (21:44)
[2018-10-13] MEDS: ONDANSETRON HCL INJ/PF 4 MG/2 ML SDV IV PRN ×4 (00:42→21:05)
[2018-10-13] MEDS: HYDROMORPHONE HCL INJ/PF 2 MG/ML AMPULE IV PRN ×4 (00:43→21:05)
[2018-10-13] MEDS: NORMAL SALINE 1000 ML 1,000 ML IV PRN ×3 (06:07→23:16)
[2018-10-13] MEDS: GABAPENTIN 300 MG CAPSULE PO SCH ×3 (06:07→21:05)
[2018-10-13] MEDS: OXYCODONE HCL IR 5 MG TABLET PO PRN ×3 (06:07→19:25)
[2018-10-13] MEDS: PROMETHAZINE HCL 25 MG TABLET PO PRN ×3 (06:08→19:25)
[2018-10-13] MEDS: OXYCODONE-ACETAMINOPHEN 5-325 MG TABLET PO PRN (06:08)
[2018-10-13] MEDS: LEVOTHYROXINE SODIUM 0.1 MG TABLET PO SCH (06:08)
[2018-10-13] MEDS: LANSOPRAZOLE 30 MG TAB.RAP.DR PO SCH ×2 (07:51→16:59)
[2018-10-13] MEDS: SUCRALFATE 1 GM TABLET PO SCH ×4 (09:30→21:06)
[2018-10-13] MEDS: CLOPIDOGREL BISULFATE 75 MG TABLET PO SCH (09:30)
[2018-10-13] MEDS: SERTRALINE HCL 50 MG TABLET PO SCH (09:30)
[2018-10-13] MEDS: LIDOCAINE 5% (700 MG) TRANSDERMAL ADH..PATCH TP SCH (09:31)
--- NOTE | 2018-10-13 13:39 | PDOC PROGRESS REPORT ---
Subjective Progress Note for:: 10/13/18 Subjective:: Patient reported right breast discomfort is better with application of warm compress since last evaluation. Her nausea is getting better. No vomiting or abdominal pain. No chest pain or difficulty with breathing. Reason For Visit: INTRACTABLE VOMITING Physical Exam Vital Signs: Temp Pulse Resp BP Pulse Ox 98.2 F 79 16 113/54 L 97 10/13/18 11:25 10/13/18 11:25 10/13/18 11:25 10/13/18 11:25 10/13/18 11:25 Intake & Output 10/12/18 10/13/18 10/14/18 06:59 06:59 06:59 Intake Total 4195 3085 128 Output Total 600 Balance 4195 2485 128 Weight 92.4 kg 94 kg Physical Exam: General appearance: PRESENT: no acute distress, obese Head exam: PRESENT: atraumatic, normocephalic Eye exam: PRESENT: conjunctiva pink, EOMI, PERRLA. ABSENT: pallor, scleral icterus Ear exam: PRESENT: normal external ear exam Mouth exam: PRESENT: moist Respiratory exam: PRESENT: clear to auscultation martínez Cardiovascular exam: PRESENT: RRR. ABSENT: diastolic murmur, rubs, systolic murmur GI/Abdominal exam: PRESENT: normal bowel sounds, soft. ABSENT: distended, guarding, mass, organomegaly, rebound, tenderness Extremities exam: ABSENT: pedal edema Neurological exam: PRESENT: alert, awake, oriented to person, oriented to place, oriented to time, oriented to situation, CN II-XII grossly intact. ABSENT: motor sensory deficit Psychiatric exam: PRESENT: appropriate affect, normal mood. ABSENT: homicidal ideation, suicidal ideation Skin exam: PRESENT: dry, warm Results Laboratory Results: 10/10/18 05:22 10/10/18 05:22 Impressions: Chest X-Ray 10/07/18 00:00 IMPRESSION: IMAGE(S) OBTAINED DURING PROCEDURE. Fluoroscopy 10/07/18 00:00 IMPRESSION: IMAGE(S) OBTAINED DURING PROCEDURE. Assessment & Plan - Diagnosis (1) Gastroparesis Is this a current diagnosis for this admission?: Yes (2) Intractable vomiting Qualifiers: Vomiting type: unspecified Nausea presence: with nausea Qualified Code(s): R11.2 - Nausea with vomiting, unspecified Is this a current diagnosis for this admission?: Yes - Time Time Spent with patient: 25-34 minutes Medications reviewed and adjusted accordingly: Yes Anticipated discharge: Home with Homehealth Within: Other - Inpatient Certification Based on my medical assessment, after consideration of the patient's comorbidities, presenting symptoms, or acuity I expect that the services needed warrant INPATIENT care.: Yes I certify that my determination is in accordance with my understanding of Medicare's requirements for reasonable and necessary INPATIENT services [42 CFR 412.3e].: Yes Medical Necessity: Need Close Monitoring Due to Risk of Patient Decompensation, Need For IV Fluids, Need For Continuous Telemetry Monitoring, Risk of Complication if Not Cared For in Hospital Post Hospital Care: D/C Manager Of Drilling Documentation - Plan Summary Plan Summary: Continue current medication management. Follow up on port-a -cath device placement.
[2018-10-13] MEDS: MONTELUKAST SODIUM 10 MG TABLET PO SCH (21:06)
[2018-10-14] MEDS: OXYCODONE HCL IR 5 MG TABLET PO PRN ×3 (01:42→17:35)
[2018-10-14] MEDS: PROMETHAZINE HCL 25 MG TABLET PO PRN ×4 (01:42→22:39)
[2018-10-14] MEDS: ONDANSETRON HCL INJ/PF 4 MG/2 ML SDV IV PRN ×3 (04:32→17:32)
[2018-10-14] MEDS: HYDROMORPHONE HCL INJ/PF 2 MG/ML AMPULE IV PRN ×3 (04:32→22:38)
[2018-10-14] MEDS: LEVOTHYROXINE SODIUM 0.1 MG TABLET PO SCH (06:03)
[2018-10-14] MEDS: GABAPENTIN 300 MG CAPSULE PO SCH ×3 (06:03→22:39)
[2018-10-14] MEDS: LANSOPRAZOLE 30 MG TAB.RAP.DR PO SCH ×2 (08:25→15:21)
[2018-10-14] MEDS: LIDOCAINE 5% (700 MG) TRANSDERMAL ADH..PATCH TP SCH (09:22)
[2018-10-14] MEDS: SERTRALINE HCL 50 MG TABLET PO SCH (09:23)
[2018-10-14] MEDS: SUCRALFATE 1 GM TABLET PO SCH ×4 (09:23→22:39)
[2018-10-14] MEDS: CLOPIDOGREL BISULFATE 75 MG TABLET PO SCH (09:23)
[2018-10-14] MEDS ORDERED: LIDOCAINE 0.5% INJ-PF (5 MG/ML) 50 ML SDV ONE (12:35)
[2018-10-14] MEDS ORDERED: BACITRACIN INJ 50,000 UNIT VIAL ONE (12:36)
[2018-10-14] MEDS ORDERED: FENTANYL CITRATE INJ/PF 100 MCG/2 ML AMPUL ONE (12:36)
[2018-10-14] MEDS ORDERED: HEPARIN SODIUM,PORCINE/NS/PF 0 UNIT/0 ML RTUINJ IV ONE (12:36)
[2018-10-14] MEDS ORDERED: MIDAZOLAM 2 MG/2 ML INJ ONE (12:36)
[2018-10-14] MEDS ORDERED: VANCOMYCIN HCL INJ 500 MG VIAL IV PRN (12:52)
[2018-10-14] MEDS ORDERED: PROMETHAZINE HCL INJ 25 MG/1 ML VIAL ONE (12:55)
[2018-10-14] MEDS ORDERED: ONDANSETRON HCL INJ/PF 4 MG/2 ML SDV ONE (12:55)
[2018-10-14] MEDS ORDERED: VANCOMYCIN HCL 500 MG in DEXTROSE 5%-WATER 100 ML IV PRN (13:15)
--- NOTE | 2018-10-14 14:33 | Operative Report ---
Operative Report DATE OF SURGERY: 10/07/18 PREOPERATIVE DIAGNOSIS: Chronic nausea and vomiting. 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 OPERATION: 1. Ultrasound evaluation and real-time access in the left basilic vein. 2. Insertion of arm based Port-A-Cath via real-time access in the left basilic vein. 3. Angiogram and interpretation. SURGEON: NOBLERTO NULL FURNITURE REPAIR TECHNICIAN: None. ANESTHESIA: Moderate Sedation TISSUE REMOVED OR ALTERED: Not applicable. COMPLICATIONS: None. The catheter tip is intentionally in the left subclavian adjacent to the occluded left innominate. ESTIMATED BLOOD LOSS: 5 mL. INTRAOPERATIVE FINDINGS: Of a satisfactory left basilic vein measuring about 3.2 mm in depth. Satisfactory access under real-time ultrasound guidance. Angiogram demonstrated no named vessels after the left subclavian. Collaterals seen possibly going down into the left azygous and upwards and also in the first part of the left innominate. 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 A site for the tip of the catheter was selected in the most proximal subclavian. This allowed easy egress of blood and ingress of post insertion angiogram was also satisfactory for function and position. The port itself was positioned over the biceps about 3 cm above the elbow. There was a gentle curve to the basilic which was elucidated on oblique projection. There was easy egress of blood and ingress of heparinized solution through the single port. PROCEDURE: After obtaining informed consent, the patient was taken to the Catering Truck Driver and positioned supine. The left arm were prepared with chlorhexidine and draped out with sterile linen. After the " universal timeout", in which it was verified that the patient continued to receive antibiotic, the procedure commenced. A steriley sheathed ultrasound probe was used to evaluate the left basilic vein. Local anesthesia was infiltrated adjacent to the probe. Access into the left basilic vein was obtained using a micropuncture needle, followed by micropuncture wire and then a micropuncture catheter. This was followed by introduction of a 0.035 guidewire the tip of which was placed up to the proximal subclavian. An angiogram was note done which demonstrated the central stenosis. Based on the patient's desperate need for ongoing access I believe this is the best opportunity and we will go ahead with port insertion. In future the femoral veins may need to be evaluated. . The port site was marked , locally anesthetized and incision made. Dissection now proceeded to the deep subcutaneous subcutaneous tissues so that a pocket for the port was made. Meticulous hemostasis was secured and the catheter was tunneled between the 2 incisions. Proximally, the catheter was now positioned using a peel-away sheath. Distally the catheter was tailored to an appropriate length and then mated to the port using the contained fixating device. The port was now placed in the pocket and the catheter optimally positioned. The port was accessed with a Boudreaux needle and an angiogram done under digital subtraction. The findings as dictated. With adequate and satisfactory positioning, the lumen of the chamber were irrigated with heparinized solution. The wounds were now closed using inte rrupted 3-0 PDS to the subcutaneous tissues and a continuous subcuticular suture of 4-0 Monocryl to the skin. These are reinforced with Steri-Strips over benzoin and then dressings applied. Time: 0.2 minute. Dose: 21.04 m Gy Contrast: 5 Mls. Isovue 300. Copies of the dictated operative report for Dr. Nolberto Prater MD.
--- NOTE | 2018-10-14 14:38 | PDOC CONSULTATION ---
Consultation Consult Date: 10/13/18 Attending physician:: NOLBERTO HERNANDEZ Consult reason:: Need for permanent access for IV infusions twice weekly. History of Present Illness Admission Date/PCP: 10/04/18 15:29 IAN MUÑOZ MD History of Present Illness: VALENTE MUNOZ is a 63 year old female This patient was admitted and treated for various issues. She has chronic gastroparesis and requires IV infusion of fluid in order to avoid dehydration. This is been going on for many years the patient has had many ports inserted and used. At least 5 to her recollection. Unfortunately the last one has stopped functioning. Attempts at the port insertion and central line have been generally unsuccessful. An angiogram done through the existing port shows that it ends in unnamed vessels. Past Medical History Cardiac Medical History: Reports: Congestive Heart Failure, Coronary Artery Disease, DVT, Myocardial Infarction, Hyperlipidema, Hypertension, Pulmonary Embolism Denies: Atrial Fibrillation, Peripheral Vascular Disease, Heart Murmur Pulmonary Medical History: Reports: Bronchitis, Chronic Obstructive Pulmonary Di sease (COPD) Denies: Asthma, Pneumonia, Respiratory Failure, Sleep Apnea, Tuberculosis Neurological Medical History: Denies: Seizures Endocrine Medical History: Reports: Hypothyroidism Denies: Hyperthyroidism Renal/ Medical History: Denies: End Stage Renal Disease Malignancy Medical History: Reports: Cervical Cancer, Ovarian Cancer Denies: Breast Cancer, Leukemia, Lung Cancer GI Medical History: Reports: Gastroesophageal Reflux Disease, Hiatal Hernia - Repaired Denies: Cirrhosis, Crohn's Disease, Hepatitis Musculoskeltal Medical History: Reports: Arthritis - Lupus, Fibromyalgia - Lupus Psychiatric Medical History: Reports: Depression Denies: Bipolar Disorder, Dementia, Post Traumatic Stress Disorder Hematology: Reports: Anemia - HX OF LOW NA AND K,LOW IRON WILL HAVE IRON TRANS F USION 05/04. Denies: Hemophilia, Sickle Cell Disease, Bleeding Tendencies Infectious Medical History: Reports: Clostridium Difficile - Was negative in October2015. Not yet successfully collected stool, Methicillin-Resistant Staph Aureus, Vancomycin-Resistant Enterococci Denies: HIV Past Surgical History Past Surgical History: Reports: Appendectomy, Cardiac Catheterization, Section, Cholecystectomy, Coronary Stent - 3 stents, Herniorrhaphy, Hysterectomy, Orthopedic Surgery - Right knee, bilateral knee replacements and h ip replacement metal plate in, Tonsillectomy Denies: Amputation, Colostomy, Coronary Artery Bypass Graft, Gastric Bypass Surgery, Mastectomy, Pacemaker, Tubal Ligation Social History Smoking Status: Former Smoker Frequency of Alcohol Use: None Hx Recreational Drug Use: No Drugs: None Hx Prescription Drug Abuse: No - Advance Directive Resuscitation Status: Full Code Family History Family History: Arthritis, COPD, Hyperlipidemia, Hypertension, Malignancy, Thyroid Disfunction Parental Family History Reviewed: No Children Family History Reviewed: No Sibling(s) Family History Reviewed.: No Medication/Allergy Home Medications: Hydrocodone Bitartrate [Zohydro ER] 40 mg PO Q12 07/08/18 Levothyroxine Sodium [Synthroid] 100 mcg PO Q6AM 07/08/18 Pantoprazole Sodium [Protonix] 40 mg PO BID 07/08/18 Sertraline HCl [Zoloft 50 mg Tablet] 100 mg PO DAILY 07/08/18 Sucralfate [Carafate 1 gm Tablet] 1 gm PO QID 07/08/18 Bethanechol Chloride [Urecholine 10 mg Tablet] 10 mg PO Q8 08/19/18 Clopidogrel Bisulfate [Plavix 75 mg Tablet] 75 mg PO DAILY 08/19/18 Gabapentin [Neurontin] 600 mg PO Q8 08/19/18 Lidocaine [Lidoderm 5% (700 mg) Transdermal Patch] 1 patch TP DAILY 08/19/18 Oxycodone HCl/Acetaminophen [Percocet 10-325 mg Tablet] 1 each PO Q6HP PRN 08/19 Cyanocobalamin (Vitamin B-12) [Vitamin B-12 Inj 1000 Mcg/1 ml Vial] 1,000 mcg IM .MONTHLY 09/16/18 Montelukast Sodium [Singulair 10 mg Tablet] 10 mg PO QHS 09/16/18 Cyclobenzaprine HCl [Flexeril 10 mg Tablet] 10 mg PO Q8HP PRN 10/04/18 Tizanidine HCl [Zanaflex 4 Mg Tablet] 4 mg PO HSP PRN MDD 8 MG 10/04/18 Zaleplon [Sonata] 10 mg PO HSP PRN 10/04/18 Allergies/Adverse Reactions: irbesartan [From Avapro] Allergy (Severe, Verified 10/04/18 14:48) swelling of face nitrofurantoin macrocrystalline [From Macrobid] Allergy (Severe, Verified 10/04/18 14:48) Generalized edema Penicillins Allergy (Severe, Verified 10/04/18 14:48) eyes swelled pregabalin [From Lyrica] Allergy (Severe, Verified 10/04/18 14:48) Equilibrium Issues venom-honey bee [bee venom (honey bee)] Allergy (Verified 10/04/18 14:48) Anaphylaxis Physical Exam Vital Signs: Temp Pulse Resp BP Pulse Ox 98.2 F 79 16 113/54 L 97 10/13/18 11:25 10/13/18 11:25 10/13/18 11:25 10/13/18 11:25 10/13/18 11:25 Intake & Output 10/12/18 10/13/18 10/14/18 06:59 06:59 06:59 Intake Total 4195 3085 128 Output Total 600 Balance 4195 2485 128 Weight 92.4 kg 94 kg Additional comments: Constitutional: Well-developed well-nourished lady, obese body habi tus. No apparent acute distress. Eyes: Mucous membranes pink and moist, pupils equal and reactive to light. Conjunctiva normal. Cornea normal. ENT: Hearing grossly normal. External pinna normal to inspection. T. Tongue normal to inspection. Respiratory: Normal respiratory effort. Psychiatric: Judgment, memory, insight seem normal. Mood is pleasant and appropriate. Extremities: Upper extremities show normal range of movement. Pulses present noted to the radial arteries. Capillary refill normal. No cyanosis noted. No muscle wasting noted. Results Laboratory Results: 10/10/18 05:22 10/10/18 05:22 Impressions: Chest X-Ray 10/07/18 00:00 IMPRESSION: IMAGE(S) OBTAINED DURING PROCEDURE. Fluoroscopy 10/07/18 00:00 IMPRESSION: IMAGE(S) OBTAINED DURING PROCEDURE. Assessment & Plan - Diagnosis (1) Gastroparesis Is this a current diagnosis for this admission?: Yes (2) Intractable vomiting Qualifiers: Vomiting type: unspecified Nausea presence: with nausea Qualified Code(s): R11.2 - Nausea with vomiting, unspecified Is this a current diagnosis for this admission?: Yes - Plan Summary Plan Summary: In this patient with a prolonged history of gastroparesis and vomiting permanent venous access is certainly well indicated in order that she can get her twice weekly IV infusions. Unfortunately she has had 5 ports in many years and finding a place for a new port is a deep challenge. I have ordered in an arm catheter and plan to evaluate her tomorrow in the Compliance Manager to find a position for port placement. This may mean 1 of the upper extremities or possibly even a femoral. None of these is ultimately desirable particularly not a femoral but the situation is dire.
--- NOTE | 2018-10-14 15:16 | RADIOLOGY REPORT (SQ) ---
EXAM DESCRIPTION: PORTACATH INSERTION COMPLETED DATE/TIME: 10/14/2018 2:50 pm REASON FOR STUDY: NEED FOR VASCULAR ACCESS COMPARISON: None. FLUOROSCOPY TIME: 0.2 minutes 44 images saved to PACS. TECHNIQUE: Intra-operative images acquired during surgical procedure to evaluate progress. NUMBER OF IMAGES: 44 LIMITATIONS: None. FINDINGS: Selected images from venography and placement of a left upper extremity port. IMPRESSION: IMAGE(S) OBTAINED DURING PROCEDURE. COMMENT: Quality ID [id number]: Final reports for procedures using fluoroscopy that document radiation exp osure indices, or exposure time and number of fluorographic images (if radiation exposure indices are not available) Please consult full operative report of the attending physician for description of the procedure. TECHNICAL DOCUMENTATION: JOB ID: [id number]- All Rights Reserved Reading location - IP/workstation name: [email or web address]
[2018-10-14] MEDS: OXYCODONE-ACETAMINOPHEN 5-325 MG TABLET PO PRN (15:21)
[2018-10-14] MEDS: NORMAL SALINE 1000 ML 1,000 ML IV PRN (15:46)
--- NOTE | 2018-10-14 22:00 | PDOC PROGRESS REPORT ---
Subjective Progress Note for:: 10/14/18 Subjective:: Patient was seen by the bedside she had a left upper arm Port-A-Cath insertion done today, the port is not accessible for use yet, she is still presently have the central line was inserted for IV access purposes. She still had episode of vomiting. Reason For Visit: INTRACTABLE VOMITING Physical Exam Vital Signs: Temp Pulse Resp BP Pulse Ox 98.6 F 83 18 144/78 H 99 10/14/18 19:50 10/14/18 19:50 10/14/18 16:41 10/14/18 19:50 10/14/18 19:50 Intake & Output 10/13/18 10/14/18 10/15/18 06:59 06:59 06:59 Intake Total 3085 1602 1000 Output Total 016 094 8411 Balance 2485 1052 -1000 Weight 94 kg 93.8 kg General appearance: PRESENT: no acute distress Eye exam: PRESENT: PERRLA Respiratory exam: PRESENT: clear to auscultation martínez Cardiovascular exam: PRESENT: +S1, +S2 GI/Abdominal exam: PRESENT: soft Neurological exam: PRESENT: alert Results Laboratory Results: 10/10/18 05:22 10/10/18 05:22 Impressions: Chest X-Ray 10/07/18 00:00 IMPRESSION: IMAGE(S) OBTAINED DURING PROCEDURE. Fluoroscopy 10/07/18 00:00 IMPRESSION: IMAGE(S) OBTAINED DURING PROCEDURE. Insertion Tunneled Catheter 10/14/18 00:00 IMPRESSION: IMAGE(S) OBTAINED DURING PROCEDURE. Assessment & Plan - Diagnosis (1) Intractable vomiting Qualifiers: Vomiting type: unspecified Nausea presence: with nausea Qualified Code(s): R11.2 - Nausea with vomiting, unspecified Is this a current diagnosis for this admission?: Yes (2) Gastroparesis Is this a current diagnosis for this admission?: Yes
[2018-10-14] MEDS: MONTELUKAST SODIUM 10 MG TABLET PO SCH (22:39)
[2018-10-15] MEDS: OXYCODONE HCL IR 5 MG TABLET PO PRN ×3 (01:43→20:14)
[2018-10-15] MEDS: ONDANSETRON HCL INJ/PF 4 MG/2 ML SDV IV PRN (01:44)
[2018-10-15] MEDS: OXYCODONE-ACETAMINOPHEN 5-325 MG TABLET PO PRN ×3 (04:44→17:16)
[2018-10-15] MEDS: LEVOTHYROXINE SODIUM 0.1 MG TABLET PO SCH (05:14)
[2018-10-15] MEDS: PROMETHAZINE HCL 25 MG TABLET PO PRN ×3 (05:14→20:07)
[2018-10-15] MEDS: GABAPENTIN 300 MG CAPSULE PO SCH ×3 (05:14→21:26)
[2018-10-15] MEDS: NORMAL SALINE 1000 ML 1,000 ML IV PRN ×2 (05:15→20:11)
[2018-10-15] MEDS: LANSOPRAZOLE 30 MG TAB.RAP.DR PO SCH ×2 (08:34→16:00)
[2018-10-15] MEDS: SERTRALINE HCL 50 MG TABLET PO SCH (10:56)
[2018-10-15] MEDS: LIDOCAINE 5% (700 MG) TRANSDERMAL ADH..PATCH TP SCH (10:58)
[2018-10-15] MEDS: CLOPIDOGREL BISULFATE 75 MG TABLET PO SCH (11:00)
[2018-10-15] MEDS: SUCRALFATE 1 GM TABLET PO SCH ×4 (11:00→21:26)
--- NOTE | 2018-10-15 20:26 | PDOC PROGRESS REPORT ---
Subjective Progress Note for:: 10/15/18 Subjective:: Patient was seen by the bedside she had a left upper arm Port-A-Cath insertion done today, the port is not accessible for use yet, she is still presently have the central line was inserted for IV access purposes. She still had episode of vomiting. Reason For Visit: INTRACTABLE VOMITING Physical Exam Vital Signs: Temp Pulse Resp BP Pulse Ox 98.5 F 86 18 121/51 L 97 10/15/18 16:38 10/15/18 16:38 10/15/18 16:38 10/15/18 16:38 10/15/18 16:38 Intake & Output 10/14/18 10/15/18 10/16/18 06:59 06:59 06:59 Intake Total 1602 2184 1300 Output Total 550 2000 Balance 2694 423 9064 Weight 93.8 kg 93.82 kg General appearance: PRESENT: no acute distress Eye exam: PRESENT: PERRLA Cardiovascular exam: PRESENT: +S1 GI/Abdominal exam: PRESENT: soft Results Laboratory Results: 10/10/18 05:22 10/10/18 05:22 Impressions: Chest X-Ray 10/07/18 00:00 IMPRESSION: IMAGE(S) OBTAINED DURING PROCEDURE. Fluoroscopy 10/07/18 00:00 IMPRESSION: IMAGE(S) OBTAINED DURING PROCEDURE. Insertion Tunneled Catheter 10/14/18 00:00 IMPRESSION: IMAGE(S) OBTAINED DURING PROCEDURE. Assessment & Plan - Diagnosis (1) Intractable vomiting Qualifiers: Vomiting type: unspecified Nausea presence: with nausea Qualified Code(s): R11.2 - Nausea with vomiting, unspecified Is this a current diagnosis for this admission?: Yes (2) Gastroparesis Is this a current diagnosis for this admission?: Yes
[2018-10-15] MEDS: MONTELUKAST SODIUM 10 MG TABLET PO SCH (21:26)
[2018-10-16] MEDS: OXYCODONE-ACETAMINOPHEN 5-325 MG TABLET PO PRN ×4 (00:04→19:56)
[2018-10-16] MEDS: OXYCODONE HCL IR 5 MG TABLET PO PRN ×4 (02:11→22:35)
[2018-10-16] MEDS: GABAPENTIN 300 MG CAPSULE PO SCH ×3 (06:01→21:29)
[2018-10-16] MEDS: LEVOTHYROXINE SODIUM 0.1 MG TABLET PO SCH (06:02)
[2018-10-16] MEDS: PROMETHAZINE HCL 25 MG TABLET PO PRN (06:04)
[2018-10-16] MEDS: ONDANSETRON HCL INJ/PF 4 MG/2 ML SDV IV PRN ×2 (08:38→21:29)
[2018-10-16] MEDS: LANSOPRAZOLE 30 MG TAB.RAP.DR PO SCH ×2 (08:38→16:34)
[2018-10-16] MEDS: NORMAL SALINE 1000 ML 1,000 ML IV PRN ×2 (10:38→23:34)
[2018-10-16] MEDS: SUCRALFATE 1 GM TABLET PO SCH ×4 (10:39→21:29)
[2018-10-16] MEDS: CLOPIDOGREL BISULFATE 75 MG TABLET PO SCH (10:39)
[2018-10-16] MEDS: SERTRALINE HCL 50 MG TABLET PO SCH (10:39)
[2018-10-16] MEDS: LIDOCAINE 5% (700 MG) TRANSDERMAL ADH..PATCH TP SCH (10:39)
[2018-10-16] MEDS: HYDROMORPHONE HCL INJ/PF 2 MG/ML AMPULE IV PRN ×2 (17:28→23:28)
--- NOTE | 2018-10-16 17:35 | PDOC PROGRESS REPORT ---
Subjective Progress Note for:: 10/16/18 Subjective:: She complains of pain at the site of the port a-cath insertion Reason For Visit: INTRACTABLE VOMITING Physical Exam Vital Signs: Temp Pulse Resp BP Pulse Ox 98.7 F 80 18 150/63 H 97 10/16/18 12:35 10/16/18 12:35 10/16/18 12:35 10/16/18 12:35 10/16/18 12:35 Intake & Output 10/15/18 10/16/18 10/17/18 06:59 06:59 06:59 Intake Total 2184 1540 2280 Output Total 1999 Balance 184 1540 2280 Weight 93.82 kg 99.1 kg General appearance: PRESENT: no acute distress Eye exam: PRESENT: PERRLA Respiratory exam: PRESENT: clear to auscultation martínez Cardiovascular exam: PRESENT: +S1, +S2 GI/Abdominal exam: PRESENT: soft Neurological exam: PRESENT: alert Results Laboratory Results: 10/10/18 05:22 10/10/18 05:22 Impressions: Chest X-Ray 10/07/18 00:00 IMPRESSION: IMAGE(S) OBTAINED DURING PROCEDURE. Fluoroscopy 10/07/18 00:00 IMPRESSION: IMAGE(S) OBTAINED DURING PROCEDURE. Insertion Tunneled Catheter 10/14/18 00:00 IMPRESSION: IMAGE(S) OBTAINED DURING PROCEDURE. Assessment & Plan - Diagnosis (1) Intractable vomiting Qualifiers: Vomiting type: unspecified Nausea presence: with nausea Qualified Code(s): R11.2 - Nausea with vomiting, unspecified Is this a current diagnosis for this admission?: Yes (2) Gastroparesis Is this a current diagnosis for this admission?: Yes (3) Coronary artery disease Qualifiers: Coronary Disease-Associated Artery/Lesion type: [place] artery [place] vs. transplanted heart: [place] heart Associated angina: without angina Qualified Code(s): I25.10 - Atherosclerotic heart disease of [place] coronary artery without angina pectoris Is this a current diagnosis for this admission?: Yes (4) Lupus erythematosus Qualifiers: Lupus erythematosus form: systemic Systemic lupus erythematosus type: un specified Systemic lupus erythematosus organ involvement: unspecified Qualified Code(s): M32.9 - Systemic lupus erythematosus, unspecified Is this a current diagnosis for this admission?: Yes Plan: Continue treatment
[2018-10-16] MEDS: MONTELUKAST SODIUM 10 MG TABLET PO SCH (21:29)
[2018-10-17] MEDS: PROMETHAZINE HCL 25 MG TABLET PO PRN ×2 (00:53→17:20)
[2018-10-17] MEDS: OXYCODONE-ACETAMINOPHEN 5-325 MG TABLET PO PRN ×2 (02:01→19:25)
[2018-10-17] MEDS: ONDANSETRON HCL INJ/PF 4 MG/2 ML SDV IV PRN ×2 (03:26→21:50)
[2018-10-17] MEDS: OXYCODONE HCL IR 5 MG TABLET PO PRN ×3 (04:27→23:16)
[2018-10-17] MEDS: HYDROMORPHONE HCL INJ/PF 2 MG/ML AMPULE IV PRN ×3 (05:42→21:50)
[2018-10-17] MEDS: GABAPENTIN 300 MG CAPSULE PO SCH ×3 (07:30→21:51)
[2018-10-17] MEDS: LEVOTHYROXINE SODIUM 0.1 MG TABLET PO SCH (07:33)
[2018-10-17] MEDS: LIDOCAINE 5% (700 MG) TRANSDERMAL ADH..PATCH TP SCH (09:10)
[2018-10-17] MEDS: SUCRALFATE 1 GM TABLET PO SCH ×4 (09:11→21:51)
[2018-10-17] MEDS: CLOPIDOGREL BISULFATE 75 MG TABLET PO SCH (09:11)
[2018-10-17] MEDS: LANSOPRAZOLE 30 MG TAB.RAP.DR PO SCH ×2 (09:11→16:05)
[2018-10-17] MEDS: SERTRALINE HCL 50 MG TABLET PO SCH (09:11)
--- NOTE | 2018-10-17 13:09 | PDOC PROGRESS REPORT ---
Subjective Progress Note for:: 10/17/18 Subjective:: The patient continues to receive IV fluid and treatments via her right-sided central line. The operative site of the left arm Port-A-Cath appears satisfactory. She does have some bruising posteriorly. Reason For Visit: INTRACTABLE VOMITING Physical Exam Vital Signs: Temp Pulse Resp BP Pulse Ox 98.8 F 78 16 153/64 H 96 10/17/18 11:41 10/17/18 11:41 10/17/18 11:41 10/17/18 11:41 10/17/18 11:41 Intake & Output 10/16/18 10/17/18 10/18/18 06:59 06:59 06:59 Intake Total 1540 3665 Balance 1540 3665 Weight 91.2 kg Additional comments: Constitutional: Well-developed well-nourished lady, obese body habitus. No apparent acute distress. Eyes: Mucous membranes pink and moist, pupils equal and reactive to light. Conjunctiva normal. Cornea normal. Respiratory: Normal respiratory effort. Psychiatric: Judgment, memory, insight seem normal. Mood is pleasant and appropriate. Extremities: Upper extremities show normal range of movement. Pulses present noted to the radial arteries. Capillary refill normal. No cyanosis noted. No muscle wasting noted. Dressings in place in the left arm Port-A-Cath sites. Results Laboratory Results: 10/10/18 05:22 10/10/18 05:22 Impressions: Chest X-Ray 10/07/18 00:00 IMPRESSION: IMAGE(S) OBTAINED DURING PROCEDURE. Fluoroscopy 10/07/18 00:00 IMPRESSION: IMAGE(S) OBTAINED DURING PROCEDURE. Insertion Tunneled Catheter 10/14/18 00:00 IMPRESSION: IMAGE(S) OBTAINED DURING PROCEDURE. Assessment & Plan - Diagnosis (1) Gastroparesis Is this a current diagnosis for this admission?: Yes (2) Intractable vomiting Qualifiers: Vomiting type: unspecified Nausea presence: with nausea Qualified Code(s): R11.2 - Nausea with vomiting, unspecified Is this a current diagnosis for this admission?: Yes - Plan Summary Plan Summary: The patient's left arm Port-A-Cath should be available to use by next Sunday or Sunday. I would like to see her as an outpatient to verify that this is progressing adequately. The hope is for prolonged usage and access for her chronic need for IV. 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 She may need subsequent equivalent femoral Port-A-Cath in the months to years ahead.
[2018-10-17] MEDS: NORMAL SALINE 1000 ML 1,000 ML IV PRN (14:44)
--- NOTE | 2018-10-17 20:54 | PDOC PROGRESS REPORT ---
Subjective Progress Note for:: 10/17/18 Subjective:: Patient seen by the bedside,she was seen by the surgeon today Reason For Visit: INTRACTABLE VOMITING Physical Exam Vital Signs: Temp Pulse Resp BP Pulse Ox 98.2 F 76 16 124/60 99 10/17/18 16:00 10/17/18 16:00 10/17/18 16:00 10/17/18 16:00 10/17/18 16:00 Intake & Output 10/16/18 10/17/18 10/18/18 06:59 06:59 06:59 Intake Total 1540 3665 1000 Balance 1540 3665 1000 Weight 91.2 kg General appearance: PRESENT: no acute distress Eye exam: PRESENT: PERRLA Respiratory exam: PRESENT: clear to auscultation martínez Cardiovascular exam: PRESENT: +S1, +S2 Results Laboratory Results: 10/10/18 05:22 10/10/18 05:22 Impressions: Chest X-Ray 10/07/18 00:00 IMPRESSION: IMAGE(S) OBTAINED DURING PROCEDURE. Fluoroscopy 10/07/18 00:00 IMPRESSION: IMAGE(S) OBTAINED DURING PROCEDURE. Insertion Tunneled Catheter 10/14/18 00:00 IMPRESSION: IMAGE(S) OBTAINED DURING PROCEDURE. Assessment & Plan - Diagnosis (1) Intractable vomiting Qualifiers: Vomiting type: unspecified Nausea presence: with nausea Qualified Code(s): R11.2 - Nausea with vomiting, unspecified Is this a current diagnosis for this admission?: Yes (2) Gastroparesis Is this a current diagnosis for this admission?: Yes (3) Coronary artery disease Qualifiers: Coronary Disease-Associated Artery/Lesion type: [place] artery [place] vs. transplanted heart: [place] heart Associated angina: without angina Qualified Code(s): I25.10 - Atherosclerotic heart disease of [place] coronary artery without angina pectoris Is this a current diagnosis for this admission?: Yes (4) Lupus erythematosus Qualifiers: Lupus erythematosus form: systemic Systemic lupus erythematosus type: unspecified Systemic lupus erythematosus organ involvement: unspecified Qualified Code(s): M32.9 - Systemic lupus erythematosus, unspecified Is this a current diagnosis for this admission?: Yes
[2018-10-17] MEDS: MONTELUKAST SODIUM 10 MG TABLET PO SCH (21:51)
[2018-10-18] MEDS: PROMETHAZINE HCL 25 MG TABLET PO PRN ×2 (04:25→14:45)
[2018-10-18] MEDS: OXYCODONE-ACETAMINOPHEN 5-325 MG TABLET PO PRN ×3 (04:26→21:29)
[2018-10-18] MEDS: NORMAL SALINE 1000 ML 1,000 ML IV PRN ×2 (04:27→17:52)
[2018-10-18] MEDS: LEVOTHYROXINE SODIUM 0.1 MG TABLET PO SCH (06:40)
[2018-10-18] MEDS: ONDANSETRON HCL INJ/PF 4 MG/2 ML SDV IV PRN (06:59)
[2018-10-18] MEDS: OXYCODONE HCL IR 5 MG TABLET PO PRN ×3 (07:01→21:28)
[2018-10-18] MEDS: GABAPENTIN 300 MG CAPSULE PO SCH ×3 (08:35→21:28)
[2018-10-18] MEDS: LANSOPRAZOLE 30 MG TAB.RAP.DR PO SCH ×2 (08:42→15:07)
[2018-10-18] MEDS: SUCRALFATE 1 GM TABLET PO SCH ×3 (10:21→17:53)
[2018-10-18] MEDS: LIDOCAINE 5% (700 MG) TRANSDERMAL ADH..PATCH TP SCH (10:21)
[2018-10-18] MEDS: CLOPIDOGREL BISULFATE 75 MG TABLET PO SCH (10:22)
[2018-10-18] MEDS: SERTRALINE HCL 50 MG TABLET PO SCH (10:22)
[2018-10-18] MEDS ORDERED: CYANOCOBALAMIN (VITAMIN B-12) INJ 1000 MCG/1 ML VIAL IM SCH (12:00)
[2018-10-18] MEDS: HYDROMORPHONE HCL INJ/PF 2 MG/ML AMPULE IV PRN (18:01)
--- NOTE | 2018-10-18 20:50 | PDOC DISCHARGE SUMMARY ---
General - Admit/Disc Date/PCP Admission Date/Primary Care Provider: 10/04/18 15:29 IAN MUÑOZ MD Discharge Date: 10/18/18 - Discharge Diagnosis (1) Intractable vomiting Is this a current diagnosis for this admission?: Yes (2) Gastroparesis Is this a current diagnosis for this admission?: Yes (3) Coronary artery disease Is this a current diagnosis for this admission?: Yes (4) Lupus erythematosus Is this a current diagnosis for this admission?: Yes (5) Stenosis of superior vena cava Is this a current diagnosis for this admission?: Yes - Additional Information Resuscitation Status: Full Code Home Medications: Hydrocodone Bitartrate [Zohydro ER] 40 mg PO Q12 07/08/18 Levothyroxine Sodium [Synthroid] 100 mcg PO Q6AM 07/08/18 Pantoprazole Sodium [Protonix] 40 mg PO BID 07/08/18 Sertraline HCl [Zoloft 50 mg Tablet] 100 mg PO DAILY 07/08/18 Sucralfate [Carafate 1 gm Tablet] 1 gm PO QID 07/08/18 Bethanechol Chloride [Urecholine 10 mg Tablet] 10 mg PO Q8 08/19/18 Clopidogrel Bisulfate [Plavix 75 mg Tablet] 75 mg PO DAILY 08/19/18 Gabapentin [Neurontin] 600 mg PO Q8 08/19/18 Lidocaine [Lidoderm 5% (700 mg) Transdermal Patch] 1 patch TP DAILY 08/19/18 Oxycodone HCl/Acetaminophen [Percocet 10-325 mg Tablet] 1 each PO Q6HP PRN 08/19/18 Cyanocobalamin (Vitamin B-12) [Vitamin B-12 Inj 1000 Mcg/1 ml Vial] 1,000 mcg IM .MONTHLY 09/16/18 Montelukast Sodium [Singulair 10 mg Tablet] 10 mg PO QHS 09/16/18 Cyclobenzaprine HCl [Flexeril 10 mg Tablet] 10 mg PO Q8HP PRN 10/04/18 Tizanidine HCl [Zanaflex 4 mg Tablet] 4 mg PO HSP PRN MDD 8 MG 10/04/18 Zaleplon [Sonata] 10 mg PO HSP PRN 10/04/18 History of Present Illness History of Present Illness: VALENTE Hassan RANDALLFELISHA is a 63 year old female,She has gastroparesis with chronic vomiting syndrome with multiple hospitalization arrangement was made for her to receive IV fluid 3 times a week outpatient but unfortunately the Port-A-Cath was malfunctioning, she came to the office because of vomiting and the fact that she was not able to get IV fluid through the Port-A-Cath, so she was admitted essentially for IV fluid therapy and to prevent dehydration which is very prone to. She has a history of recurrent UTI due to the fact that she does self urinary catheterization due to bladder atony.She has other comorbid conditions including systemic lupus atheromatosis, ischemic heart disease status post stent placement of coronary vessels, history of pulmonary embolism Hospital Course Hospital Course: She has chronic intractable vomiting partly due to gastroparesis, she has a Port-A-Cath that was malfunctioning she normally receives intravenous normal saline at home 3 times a week but because of the malfunction of the port-A-cath and with no IV access she was admitted for hydration she was seen by the vascul ar surgeon a new port-A-cath was inserted in the left arm. 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 Physical Exam Vital Signs: Temp Pulse Resp BP Pulse Ox 98.0 F 78 16 140/61 H 99 10/18/18 15:37 10/18/18 15:37 10/18/18 15:37 10/18/18 15:37 10/18/18 15:37 Intake & Output 10/17/18 10/18/18 10/19/18 06:59 06:59 06:59 Intake Total 3665 1960 939 Balance 3665 1960 939 Weight 91.2 kg 91.2 kg General appearance: PRESENT: no acute distress Head exam: PRESENT: atraumatic, normocephalic Eye exam: PRESENT: PERRLA Neck exam: PRESENT: full ROM Respiratory exam: PRESENT: clear to auscultation martínez Cardiovascular exam: PRESENT: RRR, +S1, +S2 Pulses: PRESENT: normal dorsalis pedis pul, +2 pedal pulses bilateral Vascular exam: PRESENT: normal capillary refill GI/Abdominal exam: PRESENT: normal bowel sounds, soft Rectal exam: PRESENT: deferred Neurological exam: PRESENT: alert, CN II-XII grossly intact Psychiatric exam: PRESENT: appropriate affect, normal mood Skin exam: PRESENT: dry, intact, warm Results Laboratory Results: 10/10/18 05:22 10/10/18 05:22 Impressions: Chest X-Ray 10/07/18 00:00 IMPRESSION: IMAGE(S) OBTAINED DURING PROCEDURE. Fluoroscopy 10/07/18 00:00 IMPRESSION: IMAGE(S) OBTAINED DURING PROCEDURE. Insertion Tunneled Catheter 10/14/18 00:00 IMPRESSION: IMAGE(S) OBTAINED DURING PROCEDURE. Qualifiers - * PATIENT BEING DISCHARGED WITH ANY OF THE FOLLOWING DIAGNOSIS: No
[2018-10-18] MEDS: MONTELUKAST SODIUM 10 MG TABLET PO SCH (21:28)
[2018-10-19] MEDS: SUCRALFATE 1 GM TABLET PO SCH ×2 (00:11→09:07)
[2018-10-19] MEDS: HYDROMORPHONE HCL INJ/PF 2 MG/ML AMPULE IV PRN ×2 (00:11→06:53)
[2018-10-19] MEDS: PROMETHAZINE HCL 25 MG TABLET PO PRN (02:16)
[2018-10-19] MEDS: LEVOTHYROXINE SODIUM 0.1 MG TABLET PO SCH (06:53)
[2018-10-19] MEDS: NORMAL SALINE 1000 ML 1,000 ML IV PRN (06:54)
[2018-10-19] MEDS: LANSOPRAZOLE 30 MG TAB.RAP.DR PO SCH (09:07)
[2018-10-19] MEDS: SERTRALINE HCL 50 MG TABLET PO SCH (09:08)
[2018-10-19] MEDS: LIDOCAINE 5% (700 MG) TRANSDERMAL ADH..PATCH TP SCH (09:08)
[2018-10-19] MEDS: CLOPIDOGREL BISULFATE 75 MG TABLET PO SCH (09:08)
[2018-10-19 10:56] VITALS: BP 149/67
[2018-10-19] MEDS: GABAPENTIN 300 MG CAPSULE PO SCH (11:31)
== END 2018-10-19 12:15 | disposition home or self-care (01) | DRG 315 ==
LOC: ER 14:45 → EH 15:29 → INTOOBSV 15:29 → OBSVTOIN 15:29 → 4W 19:20 → 2N 10-15 02:14
PROVIDERS: ADMIT Internal Medicine; ATTEND Internal Medicine
PROC: 02HV33Z Insertion of Infusion Device into Superior Vena Cava, Percutaneous Approach (ICD-10-PCS; principal; 2018-10-05)
PROC: B548ZZA Ultrasonography of Superior Vena Cava, Guidance (ICD-10-PCS; 2018-10-05)
PROC: 02PY33Z Removal of Infusion Device from Great Vessel, Percutaneous Approach (ICD-10-PCS; 2018-10-07)
PROC: B50 Imaging, Veins, Plain Radiography (ICD-10-PCS; 2018-10-07)
PROC: 02HV33Z Insertion of Infusion Device into Superior Vena Cava, Percutaneous Approach (ICD-10-PCS; 2018-10-14)
PROC: B548ZZA Ultrasonography of Superior Vena Cava, Guidance (ICD-10-PCS; 2018-10-14)
DX: T82.594A Other mechanical complication of infusion catheter, initial encounter (principal); I87.1 Compression of vein; R11.2 Nausea with vomiting, unspecified; K31.84 Gastroparesis; I25.10 Atherosclerotic heart disease of native coronary artery without angina pectoris; M32.9 Systemic lupus erythematosus, unspecified; N31.2 Flaccid neuropathic bladder, not elsewhere classified; Z95.5 Presence of coronary angioplasty implant and graft; Z86.711 Personal history of pulmonary embolism; I11.0 Hypertensive heart disease with heart failure; I50.9 Heart failure, unspecified; E78.5 Hyperlipidemia, unspecified; I25.2 Old myocardial infarction; Z85.41 Personal history of malignant neoplasm of cervix uteri; Z85.43 Personal history of malignant neoplasm of ovary; K21.9 Gastro-esophageal reflux disease without esophagitis; K44.9 Diaphragmatic hernia without obstruction or gangrene; M19.90 Unspecified osteoarthritis, unspecified site; M79.7 Fibromyalgia; Z86.14 Personal history of Methicillin resistant Staphylococcus aureus infection; Z90.49 Acquired absence of other specified parts of digestive tract; Z96.653 Presence of artificial knee joint, bilateral; Z96.649 Presence of unspecified artificial hip joint; Z87.891 Personal history of nicotine dependence; Z79.899 Other long term (current) drug therapy; Z88.8 Allergy status to other drugs, medicaments and biological substances; Z88.0 Allergy status to penicillin; Z91.030 Bee allergy status; Z90.710 Acquired absence of both cervix and uterus; Y82.8 Other medical devices associated with adverse incidents
CPT/HCPCS: 36415; 36561; 532; 71045; 76937; 77001; 80048; 80053; 80076; 81001; 85025; 87086; 99284; C1751; C1752; C1788; G0378; G0379; J0690; J1170; J1642; J1644; J2250; J2405; J2550; J2704; J3010; J3490; J7030; Q9967

== ENCOUNTER 2018-10-21 16:03 | Emergency (ER) | payer MEDICARE, OTHER ==
--- NOTE | 2018-10-21 17:57 | ER Document Report ---
ED Medical Screen (RME) - General Chief Complaint: Nausea/Vomiting/Diarrhea Stated Complaint: NAUSEA Time Seen by Provider: 10/21/18 17:51 Primary Care Provider: IAN MUÑOZ MD [Primary Care Provider] - Follow up as needed Notes: Patient is a 63-year-old female who appears to have an extensive history of vomiting and diarrhea with multiple admissions for the same. States she was recently discharged from this facility after being admitted for C. difficile. States for the last 24 hours she continues with nausea vomiting and diarrhea. States her home health nurse said that her diarrhea was too much which is why she should come to the emergency room. Patient is denying any fever but is complaining of generalized lower abdominal cramping. Patient does have a history of appendectomy and a cholecystectomy and a hysterectomy. Patient's denying any blood to her emesis or stool. GENERAL: Alert, interacts well. Intermittently moaning holding her lower abdomen ABDOMEN: Soft, Non-distended. Bowel sounds present in all 4 quadrants. Generalized tenderness right and left lower quadrants noted Patient is afebrile, non-tachycardic, non-hypotensive at this time. I have greeted and performed a rapid initial assessment of this patient. A comprehensive ED assessment and evaluation of the patient, analysis of test results and completion of the medical decision making process will be conducted by additional ED providers. TRAVEL OUTSIDE OF THE [place] IN LAST 30 DAYS: No - Related Data Allergies/Adverse Reactions: irbesartan [From Avapro] Allergy (Severe, Verified 10/04/18 14:48) swelling of face nitrofurantoin macrocrystalline [From Macrobid] Allergy (Severe, Verified 10/04/18 14:48) Generalized edema Penicillins Allergy (Severe, Verified 10/04/18 14:48) eyes swelled pregabalin [From Lyrica] Allergy (Severe, Verified 10/04/18 14:48) Equilibrium Issues venom-honey bee [bee venom (honey bee)] Allergy (Verified 10/04/18 14:48) Anaphylaxis Past Medical History - Past Medical History Cardiac Medical History: Reports: Hx Congestive Heart Failure, Hx Coronary Artery Disease, Hx DVT, Hx Heart Attack, Hx Hypercholesterolemia, Hx Hypertension, Hx Pulmonary Embolism Denies: Hx Atrial Fibrillation, Hx Peripheral Vascular Disease, Hx Heart Murmur Pulmonary Medical History: Reports: Hx Bronchitis, Hx COPD Denies: Hx Asthma, Hx Pneumonia, Hx Respiratory Failure, Hx Sleep Apnea, Hx Tuberculosis Neurological Medical History: Denies: Hx Cerebrovascular Accident, Hx Seizures Endocrine Medical History: Reports: Hx Hypothyroidism. Denies: Hx Hyperthyroidism Renal/ Medical History: Reports: Hx Ovarian Cysts. Denies: Hx End Stage Renal Disease, Hx Kidney Stones, Hx Peritoneal Dialysis Malignancy Medical History: Reports: Hx Cervical Cancer, Hx Ovarian Cancer. Denies: Hx Breast Cancer, Hx Leukemia, Hx Lung Cancer GI Medical History: Reports: Hx Gastroesophageal Reflux Disease, Hx Hiatal Hernia - Repaired, Hx Irritable Bowel, Hx Colonoscopy, Hx Endoscopy. Denies: Hx Cirrhosis, Hx Crohn's Disease, Hx Hepatitis, Hx Pancreatitis, Hx Ulcer Musculoskeltal Medical History: Reports Hx Arthritis - Lupus, Reports Hx Fibromyalgia - Lupus, Denies Hx Multiple Sclerosis, Reports Hx Musculoskeletal Deformity, Reports Hx Musculoskeletal Trauma Skin Medical History: Reports Hx Cellulitis - Recently treated, right breast Psychiatric Medical History: Reports: Hx Anxiety, Hx Depression Denies: Hx Bipolar Disorder, Hx Dementia, Hx Post Traumatic Stress Disorder, Hx Schizophrenia Traumatic Medical History: Reports: Hx Fractures - Knee and hip Infectious Medical History: Reports: Hx C-Diff - Was negative in October2015. Not yet successfully collected stool, Hx MRSA, Hx VRE. Denies: Hx Hepatitis, Hx HIV Past Surgical History: Reports: Hx Appendectomy, Hx Bowel Surgery - Polyps, adhesions, Hx Cardiac Catheterization, Hx Cardiac Surgery - 2 stents 2014, Hx Section, Hx Cholecystectomy, Hx Coronary Stent - 3 stents, Hx Genitourinary Surgery - bladder sling, Hx Herniorrhaphy, Hx Hysterectomy, Hx Orthopedic Surgery - Right knee, bilateral knee replacements and hip replacement metal plate in, Hx Tonsillectomy. Denies: Hx Colostomy, Hx Coronary Artery Bypass Graft, Hx Gastric Bypass Surgery, Hx Mastectomy, Hx Open Heart Surgery, Hx Pacemaker, Hx Tubal Ligation - Immunizations Immunizations up to date: Yes History of Influenza Vaccine for 06/2017 - 11/2017 Season: Yes Influenza Administration Date for 06/2017 - 11/2017 Season: 07/24/18 Physical Exam - Vital signs Vitals: Temp Pulse Resp BP Pulse Ox 99 F 92 20 115/80 93 10/21/18 16:12 10/21/18 16:12 10/21/18 16:12 10/21/18 16:12 10/21/18 16:12 Course - Vital Signs Vital signs: Temp Pulse Resp BP Pulse Ox 99 F 92 20 115/80 93 10/21/18 16:12 10/21/18 16:12 10/21/18 16:12 10/21/18 16:12 10/21/18 16:12 Doctor's Discharge - Discharge Referrals: IAN MUÑOZ MD [Primary Care Provider] - Follow up as needed
[2018-10-21] MEDS ORDERED: ONDANSETRON HCL INJ/PF 4 MG/2 ML SDV IV ONE (17:58)
[2018-10-21] MEDS ORDERED: NORMAL SALINE 1000 ML 1,000 ML IV ONE (17:58)
[2018-10-21] MEDS ORDERED: MORPHINE SULFATE 10 MG/ML INJ IV ONE (18:31)
--- NOTE | 2018-10-21 18:35 | ER Document Report ---
ED General - General Chief Complaint: Nausea/Vomiting/Diarrhea Stated Complaint: NAUSEA Time Seen by Provider: 10/21/18 17:51 Primary Care Provider: IAN MUÑOZ MD [Primary Care Provider] - Follow up as needed TRAVEL OUTSIDE OF THE [place] IN LAST 30 DAYS: No - HPI Notes: Patient presents to the emergency department for evaluation of abdominal pain, nausea, vomiting, diarrhea. She has a known history of C. difficile. She was actually discharged from the hospital 2 days ago. Her home health nurse recommended she come back to the emergency room today based on the amount of vomiting and diarrhea she has had. She states he has had 5 episodes of bright yellow emesis, too numerous to count episodes of diarrhea. No known fevers. She has lower abdominal pain that she describes as a cramping. No known fevers. She is not currently on any antibiotic therapies. - Related Data Allergies/Adverse Reactions: irbesartan [From Avapro] Allergy (Severe, Verified 10/04/18 14:48) swelling of face nitrofurantoin macrocrystalline [From Macrobid] Allergy (Severe, Verified 10/04/18 14:48) Generalized edema Penicillins Allergy (Severe, Verified 10/04/18 14:48) eyes swelled pregabalin [From Lyrica] Allergy (Severe, Verified 10/04/18 14:48) Equilibrium Issues venom-honey bee [bee venom (honey bee)] Allergy (Verified 10/04/18 14:48) Anaphylaxis Past Medical History - General Information source: Patient - Social History Smoking Status: Former Smoker Chew tobacco use (# tins/day): No Drug Abuse: None Family History: Arthritis, COPD, Hyperlipidemia, Hypertension, Malignancy, Thyroid Disfunction Patient has suicidal ideation: No Patient has homicidal ideation: No - Past Medical History Cardiac Medical History: Reports: Hx Congestive Heart Failure, Hx Coronary Artery Disease, Hx DVT, Hx Heart Attack, Hx Hypercholesterolemia, Hx Hypertension, Hx Pulmonary Embolism Denies: Hx Atrial Fibrillation, Hx Peripheral Vascular Disease, Hx Heart Murmur Pulmonary Medical History: Reports: Hx Bronchitis, Hx COPD Denies: Hx Asthma, Hx Pneumonia, Hx Respiratory Failure, Hx Sleep Apnea, Hx Tuberculosis Neurological Medical History: Denies: Hx Cerebrovascular Accident, Hx Seizures Endocrine Medical History: Reports: Hx Hypothyroidism. Denies: Hx Hyperthyroidism Renal/ Medical History: Reports: Hx Ovarian Cysts. Denies: Hx End Stage Renal Disease, Hx Kidney Stones, Hx Peritoneal Dialysis Malignancy Medical History: Reports: Hx Cervical Cancer, Hx Ovarian Cancer. Denies: Hx Breast Cancer, Hx Leukemia, Hx Lung Cancer GI Medical History: Reports: Hx Gastroesophageal Reflux Disease, Hx Hiatal Hernia - Repaired, Hx Irritable Bowel, Hx Colonoscopy, Hx Endoscopy. Denies: Hx Cirrhosis, Hx Crohn's Disease, Hx Hepatitis, Hx Pancreatitis, Hx Ulcer Musculoskeletal Medical History: Reports Hx Arthritis - Lupus, Reports Hx Fibromyalgia - Lupus, Denies Hx Multiple Sclerosis, Reports Hx Musculoskeletal Deformity, Reports Hx Musculoskeletal Trauma Skin Medical History: Reports Hx Cellulitis - Recently treated, right breast Psychiatric Medical History: Reports: Hx Anxiety, Hx Depression Denies: Hx Bipolar Disorder, Hx Dementia, Hx Post Traumatic Stress Disorder, Hx Schizophrenia Traumatic Medical History: Reports: Hx Fractures - Knee and hip Infectious Medical History: Reports: Hx C-Diff - Was negative in October2015. Not yet successfully collected stool, Hx MRSA, Hx VRE. Denies: Hx Hepatitis, Hx HIV Past Surgical History: Reports: Hx Appendectomy, Hx Bowel Surgery - Polyps, adhesions, Hx Cardiac Catheterization, Hx Cardiac Surgery - 2 stents 2014, Hx Section, Hx Cholecystectomy, Hx Coronary Stent - 3 stents, Hx Genitourinary Surgery - bladder sling, Hx Herniorrhaphy, Hx Hysterectomy, Hx Orthopedic Surgery - Right knee, bilateral knee replacements and hip replacement metal plate in, Hx Tonsillectomy. Denies: Hx Colostomy, Hx Coronary Artery Bypass Graft, Hx Gastric Bypass Surgery, Hx Mastectomy, Hx Open Heart Surgery, Hx Pacemaker, Hx Tubal Ligation - Immunizations Immunizations up to date: Yes Hx Pneumococcal Vaccination: 05/20/11 Review of Systems - Review of Systems Constitutional: Malaise EENT: No symptoms reported Cardiovascular: No symptoms reported Respiratory: No symptoms reported Gastrointestinal: Abdominal pain, Diarrhea, Nausea, Vomiting Musculoskeletal: No symptoms reported Skin: No symptoms reported Neurological/Psychological: No symptoms reported Physical Exam - Vital signs Vitals: Temp Pulse Resp BP Pulse Ox 99 F 92 20 115/80 93 10/21/18 16:12 10/21/18 16:12 10/21/18 16:12 10/21/18 16:12 10/21/18 16:12 - Notes Notes: Vital signs reviewed, please refer to chart. Patient is normocephalic, atraumatic. Pupils equal round, reactive to light. Neck is supple without meningismus. Heart is regular rate and rhythm. Lungs are clear to auscultation bilaterally. Abdomen is soft, tender to bilateral lower quadrants without rebound or guarding. Normoactive bowel sounds throughout.. Extremities without cyanosis, clubbing. Peripheral pulses are equal. Skin is warm and dry. Patient is awake, alert, neurological exam is nonfocal. Course - Re-evaluation Re-evalutation: 10/21/18 18:35 Patient presents to the emergency department for evaluation of nausea, vomiting, diarrhea. Laboratory investigations ordered through triage. Patient was additionally given pain medication and IV fluids. She was notified of the need for a stool sample to test for C. difficile toxin. 10/21/18 20:40 Patient reexamined. She remains minimally tender but serial abdominal exams are nonsurgical. She has had no diarrhea while here. No vomiting while here. I spoke to her primary care physician who agrees that she could be handled as an outpatient. He will see her in the office in follow-up. She actually missed a follow-up appointment today. - Vital Signs Vital signs: Temp Pulse Resp BP Pulse Ox 98.6 F 92 17 164/68 H 98 10/21/18 20:49 10/21/18 16:12 10/21/18 20:01 10/21/18 20:01 10/21/18 20:01 - Laboratory Result Diagrams: 10/21/18 19:43 10/21/18 19:43 Laboratory results interpreted by me: 10/21/18 10/21/18 19:43 19:43 WBC 11.3 H MCV 75 L MCH 25.2 L RDW 16.2 H Plt Count 494 H Absolute Neutrophils 8.8 H Carbon Dioxide 20 L Est GFR (Non-Af Amer) 50 L AST 46 H Alkaline Phosphatase 138 H - Consults [place] Consulted provider: follow-up in office Discharge - Discharge Clinical Impression: Diarrhea, Vomiting Condition: Fair Disposition: HOME, SELF-CARE Instructions: Diarrhea, Nonspecific ([facility]), Vomiting ([facility]) Additional Instructions: Follow-up with your primary care physician this week. Continue your home medications as previously prescribed. Return to the emergency department with worsening or new concerning symptoms. Referrals: IAN MUÑOZ MD [Primary Care Provider] - Follow up as needed
--- NOTE | 2018-10-21 19:13 | RADIOLOGY REPORT (SQ) ---
EXAM DESCRIPTION: ACUTE ABDOMEN SERIES COMPLETED DATE/TIME: 10/21/2018 6:25 pm REASON FOR STUDY: general pain COMPARISON: Abdominal films 09/16/2018, 03/16/2018, 11/20/2017 CT abdomen pelvis 03/10/2018 NUMBER OF VIEWS: Three views. TECHNIQUE: Frontal chest, supine abdomen and upright abdomen radiographic images acquired. LIMITATIONS: None. FINDINGS: CHEST: Lungs clear of infiltrates. Cardiac silhouette size, shonda unremarkable. Left PICC line tip in the left brachiocephalic vein. Old catheter tubing from right permanent central line. Electrodes over the midthoracic spine from dorsal column stimulator. FREE AIR: No subdiaphragmatic free air BOWEL GAS PATTERN: Nonobstructive pattern. No dilated loops or air fluid levels. CALCIFICATIONS: No suspicious calcifications. HARDWARE: Old ventral hernia repair. Lower lumbar fusion hardware. Battery pack for spine electrode s over the right gluteal region. Right hip replacement. Calcification in the pelvis between the jean dder and symphysis pubis. SOFT TISSUES: No gross mass or suggestion of organomegaly. BONES: No acute fracture. No worrisome bone lesions. OTHER: No other significant finding. IMPRESSION: Nonobstructive bowel gas pattern. No acute pulmonary infiltrates TECHNICAL DOCUMENTATION: JOB ID: [id number] [employer]- All Rights Reserved Reading location - IP/workstation name: [email or web address]
[2018-10-21 19:57] LABS: ABSOLUTE LYMPHOCYTES (AUTO) 1.5 10^3/uL (0.5-4.7); ABSOLUTE NEUT (AUTO) 8.8 10^3/uL (1.7-8.2); BASOPHILS % (AUTO) 0.4 % (0-2); EOSINOPHILS % (AUTO) 0.2 % (0-6); HEMATOCRIT 36.7 % (36.0-47.0); HEMOGLOBIN 12.3 g/dL (12.0-15.5); LYMPHOCYTES % (AUTO) 13.3 % (13-45); MEAN CORPUSCULAR HEMOGLOBIN 25.2 pg (27.0-33.4); MEAN CORPUSCULAR HGB CONC 33.6 g/dL (32.0-36.0); MEAN CORPUSCULAR VOLUME 75 fl (80-97); MONOCYTES % (AUTO) 8.5 % (3-13); PLATELET COUNT 494 10^3/uL (150-450); RED BLOOD COUNT 4.89 10^6/uL (3.72-5.28); RED CELL DISTRIBUTION WIDTH 16.2 % (11.5-14.0); SEGMENTED NEUTROPHILS % (AUTO) 77.6 % (42-78); TOTAL CELLS COUNTED % (AUTO) 100 %; WHITE BLOOD COUNT 11.3 10^3/uL (4.0-10.5)
[2018-10-21 20:18] LABS: ALANINE AMINOTRANSFERASE 17 U/L (9-52); ALKALINE PHOSPHATASE 138 U/L (38-126); ANION GAP 12 (5-19); ASPARTATE AMINO TRANSFERASE 46 U/L (14-36); BILIRUBIN,DIRECT 0.4 mg/dL (0.0-0.4); BILIRUBIN,TOTAL 0.5 mg/dL (0.2-1.3); BLOOD UREA NITROGEN 14 mg/dL (7-20); CALCIUM 9.4 mg/dL (8.4-10.2); CARBON DIOXIDE 20 mmol/L (22-30); CHLORIDE 107 mmol/L (98-107); GLUCOSE 101 mg/dL (75-110); POTASSIUM 3.8 mmol/L (3.6-5.0); SODIUM 138.8 mmol/L (137-145); TOTAL PROTEIN 6.7 g/dL (6.3-8.2)
[2018-10-21 21:23] VITALS: BP 178/81
== END 2018-10-21 21:23 | disposition home or self-care (01) ==
LOC: ER 16:03
DX: R11.2 Nausea with vomiting, unspecified (principal); R19.7 Diarrhea, unspecified; R10.9 Unspecified abdominal pain; R53.81 Other malaise; Z87.891 Personal history of nicotine dependence; I50.9 Heart failure, unspecified; I25.10 Atherosclerotic heart disease of native coronary artery without angina pectoris; I11.0 Hypertensive heart disease with heart failure; J44.9 Chronic obstructive pulmonary disease, unspecified
CPT/HCPCS: 99284; 96361; 96374; 96375; 36415; 83690; 85025; 80053; 74022; J2270; J2405; J7030

== ENCOUNTER 2018-10-30 12:04 | Inpatient (IN) | payer MEDICARE, OTHER ==
[2018-10-30] MEDS ORDERED: NORMAL SALINE 1000 ML 1,000 ML IV ONE (13:17)
[2018-10-30] MEDS ORDERED: ONDANSETRON HCL INJ/PF 4 MG/2 ML SDV IV ONE (13:19)
[2018-10-30] MEDS ORDERED: MORPHINE SULFATE 10 MG/ML INJ IV ONE (13:19)
--- NOTE | 2018-10-30 13:20 | ER Document Report ---
ED General - General Chief Complaint: Vomiting/Diarrhea Stated Complaint: VOMITING Time Seen by Provider: 10/30/18 13:10 Mode of Arrival: Wheelchair Information source: Patient, Relative, Dr. Sanchez, [facility] Records Notes: 63-year-old female with congestive heart failure, coronary artery disease, hypertension, COPD, previous CVA, recent hospitalization for C differential colitis presents with complaint of nausea, vomiting and lower abdominal pain that started 1 week prior to arrival. Patient reports her lower abdominal pain as cramping. She reports a inability to tolerate anything by mouth. She also reports pain with urination and increased urinary frequency. She denies fever, chills, chest pain, shortness of breath. Patient was sent by her primary care physician for direct admission. TRAVEL OUTSIDE OF THE [place] IN LAST 30 DAYS: No - HPI Onset: Other Onset/Duration: Persistent Quality of pain: Achy, Throbbing Severity: Moderate Associated symptoms: Diarrhea, Nausea, Vomiting, Other - Abdominal pain Exacerbated by: Food Relieved by: Denies Similar symptoms previously: Yes Recently seen / treated by doctor: Yes - Related Data Allergies/Adverse Reactions: irbesartan [From Avapro] Allergy (Severe, Verified 10/30/18 12:05) swelling of face nitrofurantoin macrocrystalline [From Macrobid] Allergy (Severe, Verified 10/30/18 12:05) Generalized edema Penicillins Allergy (Severe, Verified 10/30/18 12:05) eyes swelled pregabalin [From Lyrica] Allergy (Severe, Verified 10/30/18 12:05) Equilibrium Issues venom-honey bee [bee venom (honey bee)] Allergy (Verified 10/30/18 12:05) Anaphylaxis Past Medical History - General Information source: Patient, Relative, Dr. Sanchez, [facility] Records - Social History Smoking Status: Never Smoker Frequency of alcohol use: None Drug Abuse: None Lives with: Family Family History: Arthritis, COPD, Hyperlipidemia, Hypertension, Malignancy, Thyroid Disfunction - Past Medical History Cardiac Medical History: Reports: Hx Congestive Heart Failure, Hx Coronary Artery Disease, Hx DVT, Hx Heart Attack, Hx Hypercholesterolemia, Hx Hypertension, Hx Pulmonary Embolism Denies: Hx Atrial Fibrillation, Hx Peripheral Vascular Disease, Hx Heart Murmur Pulmonary Medical History: Reports: Hx Bronchitis, Hx COPD Denies: Hx Asthma, Hx Pneumonia, Hx Respiratory Failure, Hx Sleep Apnea, Hx Tuberculosis Neurological Medical History: Denies: Hx Cerebrovascular Accident, Hx Seizures Endocrine Medical History: Reports: Hx Hypothyroidism. Denies: Hx Hyperthyroidism Renal/ Medical History: Reports: Hx Ovarian Cysts. Denies: Hx End Stage Renal Disease, Hx Kidney Stones, Hx Peritoneal Dialysis Malignancy Medical History: Reports: Hx Cervical Cancer, Hx Ovarian Cancer. Denies: Hx Breast Cancer, Hx Leukemia, Hx Lung Cancer GI Medical History: Reports: Hx Gastroesophageal Reflux Disease, Hx Hiatal Hernia - Repaired, Hx Irritable Bowel, Hx Colonoscopy, Hx Endoscopy. Denies: Hx Cirrhosis, Hx Crohn's Disease, Hx Hepatitis, Hx Pancreatitis, Hx Ulcer Musculoskeletal Medical History: Reports Hx Arthritis - Lupus, Reports Hx Fibromyalgia - Lupus, Denies Hx Multiple Sclerosis, Reports Hx Musculoskeletal Deformity, Reports Hx Musculoskeletal Trauma Skin Medical History: Reports Hx Cellulitis - Recently treated, right breast Psychiatric Medical History: Reports: Hx Anxiety, Hx Depression Denies: Hx Bipolar Disorder, Hx Dementia, Hx Post Traumatic Stress Disorder, Hx Schizophrenia Traumatic Medical History: Reports: Hx Fractures - Knee and hip Infectious Medical History: Reports: Hx C-Diff - Was negative in October2015. Not yet successfully collected stool, Hx MRSA, Hx VRE. Denies: Hx Hepatitis, Hx HIV Past Surgical History: Reports: Hx Appendectomy, Hx Bowel Surgery - Polyps, adhesions, Hx Cardiac Catheterization, Hx Cardiac Surgery - 2 stents 2014, Hx Section, Hx Cholecystectomy, Hx Coronary Stent - 3 stents, Hx Genitourinary Surgery - bladder sling, Hx Herniorrhaphy, Hx Hysterectomy, Hx Orthopedic Surgery - Right knee, bilateral knee replacements and hip replacement metal plate in, Hx Tonsillectomy. Denies: Hx Colostomy, Hx Coronary Artery Bypass Graft, Hx Gastric Bypass Surgery, Hx Mastectomy, Hx Open Heart Surgery, Hx Pacemaker, Hx Tubal Ligation - Immunizations Immunizations up to date: Yes Hx Pneumococcal Vaccination: 05/20/11 Review of Systems - Review of Systems Constitutional: Malaise, Weakness, Recent illness EENT: denies: Blurred vision Cardiovascular: Dizziness, Lightheaded. denies: Chest pain, Palpitations Respiratory: denies: Cough, Short of breath Gastrointestinal: Abdominal pain, Diarrhea, Nausea, Vomiting, Poor appetite, Poor fluid intake Genitourinary: Dysuria, Frequency Female Genitourinary: No symptoms reported Musculoskeletal: No symptoms reported Skin: denies: Rash Hematologic/Lymphatic: No symptoms reported Neurological/Psychological: denies: Seizure, Lost consciousness, Headaches -: Yes All other systems reviewed and negative Physical Exam - Vital signs Vitals: Temp Pulse Resp BP Pulse Ox 98.4 F 95 16 148/74 H 100 10/30/18 12:08 10/30/18 12:08 10/30/18 12:08 10/30/18 12:08 10/30/18 12:08 - Notes Notes: PHYSICAL EXAMINATION: GENERAL: Ill-appearing, no acute distress HEAD: Atraumatic, normocephalic. EYES: Pupils equal round and reactive to light, extraocular movements intact, conjunctiva are normal. ENT: Nares patent, oropharynx clear without exudates. Moist mucous membranes. NECK: Normal range of motion, supple without lymphadenopathy LUNGS: Breath sounds clear to auscultation bilaterally and equal. No wheezes rales or rhonchi. HEART: Regular rate and rhythm without murmurs ABDOMEN: Diffuse abdominal tenderness no guarding, no rebound. No masses appreciated. Female : deferred Musculoskeletal: Normal range of motion, no pitting or edema. No cyanosis. NEUROLOGICAL: Cranial nerves grossly intact. Normal speech, normal gait. Normal sensory, motor exams PSYCH: Normal mood, normal affect. SKIN: Warm, Dry, normal turgor, no rashes or lesions noted. Course - Re-evaluation Re-evalutation: Temp Pulse Resp BP Pulse Ox 98.4 F 95 16 148/74 H 100 10/30/18 12:08 10/30/18 12:08 10/30/18 12:08 10/30/18 12:08 10/30/18 12:08 Temp Pulse Resp BP Pulse Ox 98.4 F 76 17 151/59 H 99 10/30/18 12:08 10/30/18 19:00 10/30/18 19:05 10/30/18 19:05 10/30/18 19:05 Abdomen/Pelvis CT 10/30/18 00:00 IMPRESSION: No acute findings. Chest X-Ray 10/30/18 13:16 IMPRESSION: NO ACUTE RADIOGRAPHIC FINDING IN THE CHEST. 10/30/18 14:05 63-year-old female was sent by her primary care physician Dr. Hilliard for direct admission due to persistent nausea, vomiting, diarrhea, history of gastroparesis. Patient was recently hospitalized and discharged on October 18, 2017 after being treated for C. difficile colitis. Patient is complaining of weakness, poor p.o. intake. Patient's admission orders were placed except for surgery consultation. Patient did receive IV fluids, morphine, Zofran. Has remained stable throughout her ED course. Bed request placed. 10/30/18 20:03 10/30/18 20:03 - Vital Signs Vital signs: Temp Pulse Resp BP Pulse Ox 98.4 F 76 17 151/59 H 99 10/30/18 12:08 10/30/18 19:00 10/30/18 19:05 10/30/18 19:05 10/30/18 19:05 - Laboratory Result Diagrams: 10/30/18 15:17 10/30/18 15:17 - Diagnostic Test Radiology reviewed: Image reviewed, Reports reviewed Discharge - Discharge Clinical Impression: Gastroparesis Intractable vomiting Qualifiers: Vomiting type: unspecified Nausea presence: with nausea Qualified Code(s): R11.2 - Nausea with vomiting, unspecified Diarrhea Qualifiers: Diarrhea type: unspecified type Qualified Code(s): R19.7 - Diarrhea, unspecified Condition: Good Disposition: ADMITTED INPATIENT Admitting Provider: [facility] Unit Admitted: Telemetry
--- NOTE | 2018-10-30 14:03 | RADIOLOGY REPORT (SQ) ---
EXAM DESCRIPTION: CHEST 2 VIEWS COMPLETED DATE/TIME: 10/30/2018 1:51 pm REASON FOR STUDY: cough COMPARISON: 04/02/2018 EXAM PARAMETERS: NUMBER OF VIEWS: two views TECHNIQUE: Digital Frontal and Lateral radiographic views of the chest acquired. RADIATION DOSE: NA LIMITATIONS: none FINDINGS: LUNGS AND PLEURA: No opacities, masses or pneumothorax. No pleural effusion. MEDIASTINUM AND HILAR STRUCTURES: No masses or contour abnormalities. HEART AND VASCULAR STRUCTURES: Heart normal size. No evidence for failure. BONES: No acute findings. HARDWARE: None in the chest. OTHER: Right subclavian vascular catheter. Thoracic stimulator leads. IMPRESSION: NO ACUTE RADIOGRAPHIC FINDING IN THE CHEST. TECHNICAL DOCUMENTATION: JOB ID: [id number] [employer]- All Rights Reserved Reading location - IP/workstation name: [email or web address]
[2018-10-30 15:27] LABS: ABSOLUTE BASOPHILS # (AUTO) 0.1 10^3/uL (0.0-0.2); ABSOLUTE LYMPHOCYTES (AUTO) 2.3 10^3/uL (0.5-4.7); ABSOLUTE MONOCYTES (AUTO) 1.3 10^3/uL (0.1-1.4); ABSOLUTE NEUT (AUTO) 8.4 10^3/uL (1.7-8.2); BASOPHILS % (AUTO) 0.6 % (0-2); EOSINOPHILS % (AUTO) 0.4 % (0-6); HEMATOCRIT 39.8 % (36.0-47.0); HEMOGLOBIN 13.2 g/dL (12.0-15.5); LYMPHOCYTES % (AUTO) 19.2 % (13-45); MEAN CORPUSCULAR HEMOGLOBIN 25.4 pg (27.0-33.4); MEAN CORPUSCULAR HGB CONC 33.2 g/dL (32.0-36.0); MEAN CORPUSCULAR VOLUME 77 fl (80-97); MONOCYTES % (AUTO) 10.4 % (3-13); PLATELET COUNT 429 10^3/uL (150-450); RED CELL DISTRIBUTION WIDTH 16.3 % (11.5-14.0); SEGMENTED NEUTROPHILS % (AUTO) 69.4 % (42-78); TOTAL CELLS COUNTED % (AUTO) 100 %
[2018-10-30 16:10] LABS: ALANINE AMINOTRANSFERASE 6 U/L (9-52); ALBUMIN 4.2 g/dL (3.5-5.0); ALKALINE PHOSPHATASE 132 U/L (38-126); ANION GAP 13 (5-19); ASPARTATE AMINO TRANSFERASE 15 U/L (14-36); BILIRUBIN,DIRECT 0.3 mg/dL (0.0-0.4); BILIRUBIN,TOTAL 0.4 mg/dL (0.2-1.3); BLOOD UREA NITROGEN 11 mg/dL (7-20); CALCIUM 9.6 mg/dL (8.4-10.2); CARBON DIOXIDE 24 mmol/L (22-30); CHLORIDE 101 mmol/L (98-107); GLUCOSE 91 mg/dL (75-110); LIPASE 123.8 U/L (23-300); POTASSIUM 4.6 mmol/L (3.6-5.0); SODIUM 137.5 mmol/L (137-145); TOTAL PROTEIN 6.7 g/dL (6.3-8.2)
[2018-10-30 16:25] LABS: APPEARANCE,URINE CLEAR; BILIRUBIN,URINE NEGATIVE (NEGATIVE); COLOR,URINE AMBER; GLUCOSE, URINE NEGATIVE (NEGATIVE); KETONES,URINE NEGATIVE (NEGATIVE); LEUKOCYTE ESTERASE,URINE TRACE (NEGATIVE); NITRITE,URINE POSITIVE (NEGATIVE); PROTEIN,URINE NEGATIVE (NEGATIVE); URINE SPECIFIC GRAVITY 1.006
--- NOTE | 2018-10-30 16:34 | RADIOLOGY REPORT (SQ) ---
EXAM DESCRIPTION: CT ABD/PELVIS WITH IV ORAL COMPLETED DATE/TIME: 10/30/2018 4:24 pm REASON FOR STUDY: abd pain COMPARISON: 03/10/2018 TECHNIQUE: CT scan of the abdomen and pelvis performed with intravenous and oral contrast using lenora yan scanning technique with dynamic intravenous contrast injection. Images reviewed with lung, soft t issue, and bone windows. Reconstructed coronal and sagittal MPR images reviewed. Delayed images for e valuation of the urinary system also acquired. All images stored on PACS. All CT scanners at this facility use dose modulation, iterative reconstruction, and/or weight based d osing when appropriate to reduce radiation dose to as low as reasonably achievable (ALARA). [facility]: Dose Right [facility]: CareDose [facility]: Dose Right [facility]: Teradose 4D [facility]: Plethora CONTRAST TYPE AND DOSE: contrast/concentration: Isovue mg/ml; Total Contrast Delivered: 96.0 ml; To giorgi Saline Delivered: 71.0 ml RENAL FUNCTION: GFR > 60. RADIATION DOSE: CT Rad equipment meets quality standard of care and radiation dose reduction techniq ues were employed. CTDIvol: 15.8 - 19.4 mGy. DLP: 1812 mGy-cm. . LIMITATIONS: Metal artifact right hip arthroplasty and lower lumbar fusion. FINDINGS: LOWER CHEST: No significant findings. No nodules or infiltrates. LIVER: Normal size. No masses. No dilated ducts. SPLEEN: Normal size. No focal lesions. PANCREAS: No masses. No significant calcifications. No adjacent inflammation or peripancreatic fluid collections. Pancreatic duct not dilated. GALLBLADDER: Surgically absent. ADRENAL GLANDS: No significant masses or asymmetry. RIGHT KIDNEY AND URETER: No solid masses. No significant calcifications. No hydronephrosis or hyd roureter. LEFT KIDNEY AND URETER: No solid masses. No significant calcifications. No hydronephrosis or hydr oureter. AORTA AND VESSELS: No aneurysm. RETROPERITONEUM: No retroperitoneal adenopathy, hemorrhage or masses. BOWEL AND PERITONEAL CAVITY: No obstruction. No visualized masses. No free fluid. No inflammatory ch anges or thickening of bowel wall. APPENDIX: Not visualized. PELVIS: No significant masses. Normal bladder. No free fluid. ABDOMINAL WALL: Prior anterior abdominal wall hernia repair. BONES: Nothing acute. Chronic compression fracture L1. OTHER: No other significant finding. IMPRESSION: No acute findings. TECHNICAL DOCUMENTATION: JOB ID: [id number] Quality ID # [id number]: Final reports with documentation of one or more dose reduction techniques (e.g., Au tomated exposure control, adjustment of the mA and/or kV according to patient size, use of iterative reconstruction technique) 2010 [employer]- All Rights Reserved Reading location - IP/workstation name: [email or web address]
--- NOTE | 2018-10-30 18:52 | PDOC H&P ---
History of Present Illness Admission Date/PCP: 10/30/18 13:40 IAN MUÑOZ MD History of Present Illness: VALENTE MUNOZ is a 63 year old female, she came to the office for evaluation of vomiting, she has a history of multiple hospitalization for similar complaints, I have exhausted all therapeutic options available to me for this patient's I suggest may be a temporary jejunostomy may be beneficial because she stated she cannot keep food down, my concern is she is going to be depleted of nutrients that she needed for survival, CT scan of the abdomen and pelvis with contrast was obtained, this was negative for any pathology, consultation from the surgeon will be obtained for placement of jejunostomy tube Past Medical History Cardiac Medical History: Reports: Coronary Artery Disease, DVT, Myocardial Infarction, Hyperlipidema, Hypertension, Pulmonary Embolism Pulmonary Medical History: Reports: Bronchitis, Chronic Obstructive Pulmonary Disease (COPD) Endocrine Medical History: Reports: Hypothyroidism Malignancy Medical History: Reports: Cervical Cancer, Ovarian Cancer GI Medical History: Reports: Gastroesophageal Reflux Disease, Hiatal Hernia - Repaired Musculoskeltal Medical History: Reports: Arthritis - Lupus, Fibromyalgia - Lupus, Other - Systemic lupus erythematosus Psychiatric Medical History: Reports: Depression Hematology: Reports: Anemia - HX OF LOW NA AND K,LOW IRON WILL HAVE IRON TRANS FUSION 05/04. Infectious Medical History: Reports: Clostridium Difficile - Was negative in October2015. Not yet successfully collected stool, Methicillin-Resistant Staph Aureus, Vancomycin-Resistant Enterococci Past Surgical History Past Surgical History: Reports: Appendectomy, Cardiac Catheterization, Section, Cholecystectomy, Coronary Stent - 3 stents, Herniorrhaphy, H ysterectomy, Orthopedic Surgery - Right knee, bilateral knee replacements and hip replacement metal plate in, Tonsillectomy Social History Lives with: Family Smoking Status: Former Smoker Frequency of Alcohol Use: None Hx Recreational Drug Use: No Drugs: None Hx Prescription Drug Abuse: No Family History Family History: Arthritis, COPD, Hyperlipidemia, Hypertension, Malignancy, Thyroid Disfunction Parental Family History Reviewed: Yes Children Family History Reviewed: Yes Sibling(s) Family History Reviewed.: Yes Medication/Allergy Home Medications: Hydrocodone Bitartrate [Zohydro ER] 40 mg PO Q12 07/08/18 Levothyroxine Sodium [Synthroid] 100 mcg PO Q6AM 07/08/18 Pantoprazole Sodium [Protonix] 40 mg PO BID 07/08/18 Sertraline HCl [Zoloft 50 mg Tablet] 100 mg PO DAILY 07/08/18 Sucralfate [Carafate 1 gm Tablet] 1 gm PO QID 07/08/18 Bethanechol Chloride [Urecholine 10 mg Tablet] 10 mg PO Q8 08/19/18 Clopidogrel Bisulfate [Plavix 75 mg Tablet] 75 mg PO DAILY 08/19/18 Gabapentin [Neurontin] 600 mg PO Q8 08/19/18 Lidocaine [Lidoderm 5% (700 mg) Transdermal Patch] 1 patch TP DAILY 08/19/18 Oxycodone HCl/Acetaminophen [Percocet 10-325 mg Tablet] 1 each PO Q6HP PRN 08/19/18 Cyanocobalamin (Vitamin B-12) [Vitamin B-12 Inj 1000 Mcg/1 ml Vial] 1,000 mcg IM .MONTHLY 09/16/18 Montelukast Sodium [Singulair 10 mg Tablet] 10 mg PO QHS 09/16/18 Cyclobenzaprine HCl [Flexeril 10 mg Tablet] 10 mg PO Q8HP PRN 10/04/18 Tizanidine HCl [Zanaflex 4 mg Tablet] 4 mg PO HSP PRN MDD 8 MG 10/04/18 Zaleplon [Sonata] 10 mg PO HSP PRN 10/04/18 Allergies/Adverse Reactions: irbesartan [From Avapro] Allergy (Severe, Verified 10/30/18 12:05) swelling of face nitrofurantoin macrocrystalline [From Macrobid] Allergy (Severe, Verified 10/30/18 12:05) Generalized edema Penicillins Allergy (Severe, Verified 10/30/18 12:05) eyes swelled pregabalin [From Lyrica] Allergy (Severe, Verified 10/30/18 12:05) Equilibrium Issues venom-honey bee [bee venom (honey bee)] Allergy (Verified 10/30/18 12:05) Anaphylaxis Review of Systems Constitutional: ABSENT: chills, fever(s), headache(s), weight gain, weight loss Eyes: ABSENT: visual disturbances Ears: ABSENT: hearing changes Cardiovascular: ABSENT: chest pain, dyspnea on exertion, edema, orthropnea, palpitations Respiratory: ABSENT: cough, hemoptysis Gastrointestinal: PRESENT: diarrhea, nausea, vomiting Genitourinary: ABSENT: dysuria, hematuria Musculoskeletal: ABSENT: joint swelling Integumentary: ABSENT: rash, wounds Neurological: ABSENT: abnormal gait, abnormal speech, confusion, dizziness, focal weakness, syncope Psychiatric: ABSENT: anxiety, depression, homidical ideation, suicidal ideation Endocrine: ABSENT: cold intolerance, heat intolerance, menstrual abnormalities, polydipsia, polyuria Hematologic/Lymphatic: ABSENT: easy bleeding, easy bruising, lymphadenopathy Physical Exam Vital Signs: Temp Pulse Resp BP Pulse Ox 98.4 F 95 26 H 143/69 H 100 10/30/18 12:08 10/30/18 12:08 10/30/18 17:03 10/30/18 17:03 10/30/18 17:03 Intake & Output 10/29/18 10/30/18 10/31/18 06:59 06:59 06:59 Weight 84.6 kg General appearance: PRESENT: no acute distress, well-developed, well-nourished Head exam: PRESENT: atraumatic, normocephalic Eye exam: PRESENT: conjunctiva pink, EOMI, PERRLA Ear exam: PRESENT: normal external ear exam Mouth exam: PRESENT: moist, tongue midline Neck exam: PRESENT: full ROM Respiratory exam: PRESENT: clear to auscultation martínez Cardiovascular exam: PRESENT: RRR, +S1, +S2 Pulses: PRESENT: normal dorsalis pedis pul, +2 pedal pulses bilateral Vascular exam: PRESENT: normal capillary refill GI/Abdominal exam: PRESENT: normal bowel sounds, soft Rectal exam: PRESENT: deferred Extremities exam: PRESENT: other - left upper swelling Neurological exam: PRESENT: alert, CN II-XII grossly intact Psychiatric exam: PRESENT: appropriate affect, normal mood Skin exam: PRESENT: dry, intact, warm Results Laboratory Results: 10/30/18 15:17 10/30/18 15:17 10/30/18 10/30/18 10/30/18 15:17 15:17 15:54 WBC 12.0 H RBC 5.20 Hgb 13.2 Hct 39.8 MCV 77 L MCH 25.4 L MCHC 33.2 RDW 16.3 H Plt Count 429 Seg Neutrophils % 69.4 Lymphocytes % 19.2 Monocytes % 10.4 Eosinophils % 0.4 Basophils % 0.6 Absolute Neutrophils 8.4 H Absolute Lymphocytes 2.3 Absolute Monocytes 1.3 Absolute Eosinophils 0.0 Absolute Basophils 0.1 Sodium 137.5 Potassium 4.6 Chloride 101 Carbon Dioxide 24 Anion Gap 13 BUN 11 Creatinine 0.92 Est GFR ( Amer) > 60 Est GFR (Non-Af Amer) > 60 Glucose 91 Calcium 9.6 Total Bilirubin 0.4 AST 15 ALT 6 L Alkaline Phosphatase 132 H Total Protein 6.7 Albumin 4.2 Lipase 123.8 Urine Color JAMES Urine Appearance CLEAR Urine pH 7.0 Ur Specific [place] 1.006 Urine Protein NEGATIVE Urine Glucose (UA) NEGATIVE Urine Ketones NEGATIVE Urine Blood NEGATIVE Urine Nitrite POSITIVE H Ur Leukocyte Esterase TRACE H Urine WBC (Auto) 1 Urine RBC (Auto) 0 Impressions: Abdomen/Pelvis CT 10/30/18 00:00 IMPRESSION: No acute findings. Chest X-Ray 10/30/18 13:16 IMPRESSION: NO ACUTE RADIOGRAPHIC FINDING IN THE CHEST. Assessment & Plan - Diagnosis (1) Intractable vomiting with nausea Qualifiers: Vomiting type: unspecified Qualified Code(s): R11.2 - Nausea with vomiting, unspecified Is this a current diagnosis for this admission?: Yes Plan: She has multiple hospitalization for the management of persistent vomiting I felt that she may benefit from jejunostomy tube, consultation will be requested from surgery (2) Gastroparesis Is this a current diagnosis for this admission?: Yes (3) Deep vein thrombosis of axillary vein of left upper extremity Qualifiers: Chronicity: acute Qualified Code(s): I82.A12 - Acute embolism and thrombosis of left axillary vein Is this a current diagnosis for this admission?: Yes Plan: She had deep vein thrombosis of the left axillary vein of the left upper extremity
[2018-10-30] MEDS ORDERED: (PENDING PHARMACY ID) (Zaleplon [Sonata] 10 MG) PO PRN (21:24)
[2018-10-30] MEDS ORDERED: (PENDING PHARMACY ID) (Oxycodone Hcl/Acetaminophen [Percocet 10-325 Mg Tablet] 1 EACH) PO PRN (21:24)
[2018-10-30] MEDS ORDERED: BETHANECHOL CHLORIDE 10 MG PO SCH (22:00)
[2018-10-30] MEDS: GABAPENTIN 300 MG CAPSULE PO SCH (22:00)
[2018-10-30] MEDS: SERTRALINE HCL 50 MG TABLET PO SCH (22:00)
[2018-10-30] MEDS ORDERED: HYDROCODONE BITARTRATE 40 MG PO SCH (22:00)
[2018-10-30] MEDS: OXYCODONE-ACETAMINOPHEN 5-325 MG TABLET PO PRN (22:00)
[2018-10-30] MEDS: SUCRALFATE 1 GM TABLET PO SCH (22:01)
[2018-10-30] MEDS: LIDOCAINE 5% (700 MG) TRANSDERMAL ADH..PATCH TP SCH (22:01)
[2018-10-30] MEDS: POTASSI CL 40 MEQ/NS 1L 1,000 ML IV PRN (23:02)
[2018-10-30] MEDS: ONDANSETRON HCL INJ/PF 4 MG/2 ML SDV IV PRN (23:02)
[2018-10-31] MEDS: OXYCODONE HCL IR 5 MG TABLET PO PRN ×3 (01:27→17:17)
[2018-10-31] MEDS: OXYCODONE-ACETAMINOPHEN 5-325 MG TABLET PO PRN ×3 (03:57→22:15)
[2018-10-31] MEDS: LEVOTHYROXINE SODIUM 0.1 MG TABLET PO SCH (05:16)
[2018-10-31] MEDS: GABAPENTIN 300 MG CAPSULE PO SCH ×3 (05:16→22:16)
[2018-10-31] MEDS: ONDANSETRON HCL INJ/PF 4 MG/2 ML SDV IV PRN ×3 (05:17→22:15)
--- NOTE | 2018-10-31 06:59 | PDOC CONSULTATION ---
Consultation Consult Date: 10/31/18 Consult reason:: Gastroparesis History of Present Illness Admission Date/PCP: 10/30/18 13:40 IAN MUÑOZ MD Patient complains of: Nausea, vomiting, diarrhea. History of Present Illness: VALENTE MUNOZ is a 63 year old female with a long history of nausea and vomiting. She was diagnosed with gastroparesis. She had 23% ejection of food through the stomach at 90 minutes, which is abnormally low. Patient reports vomiting with solid foods, but not liquids. The patient reports frequent diarrhea. She reports cramping, lower abdominal pain that is intermittent and does not radiate. The patient denies chest pain, shortness of breath, fevers, chills, dizziness, headache, orthostasis. The patient does note malaise, fatigue, and weight loss. Past Medical History Cardiac Medical History: Reports: Congestive Heart Failure, Coronary Artery Disease, DVT, Myocardial Infarction, Hyperlipidema, Hypertension, Pulmonary Embolism Denies: Atrial Fibrillation, Peripheral Vascular Disease, Heart Murmur Pulmonary Medical History: Reports: Bronchitis, Chronic Obstructive Pulmonary Disease (COPD) Denies: Asthma, Pneumonia, Respiratory Failure, Sleep Apnea, Tuberculosis Neurological Medical History: Denies: Seizures Endocrine Medical History: Reports: Hypothyroidism Denies: Hyperthyroidism Renal/ Medical History: Denies: End Stage Renal Disease Malignancy Medical History: Reports: Cervical Cancer, Ovarian Cancer Denies: Breast Cancer, Leukemia, Lung Cancer GI Medical History: Reports: Gastroesophageal Reflux Disease, Hiatal Hernia - Repaired Denies: Cirrhosis, Crohn's Disease, Hepatitis Musculoskeltal Medical History: Reports: Arthritis - Lupus, Fibromyalgia - Lupus Psychiatric Medical History: Reports: Depression Denies: Bipolar Disorder, Dementia, Post Traumatic Stress Disorder Hematology: Reports: Anemia - HX OF LOW NA AND K,LOW IRON WILL HAVE IRON TRANS FUSION 05/04. Denies: Hemophilia, Sickle Cell Disease, Bleeding Tendencies Infectious Medical History: Reports: Clostridium Difficile - Was negative in October2015. Not yet successfully collected stool, Methicillin-Resistant Staph Aureus, Vancomycin-Resistant Enterococci Denies: HIV Past Surgical History Past Surgical History: Reports: Appendectomy, Cardiac Catheterization, Section, Cholecystectomy, Coronary Stent - 3 stents, Herniorrhaphy, Hysterectomy, Orthopedic Surgery - Right knee, bilateral knee replacements and hip replacement metal plate in, Tonsillectomy Denies: Amputation, Colostomy, Coronary Artery Bypass Graft, Gastric Bypass Surgery, Mastectomy, Pacemaker, Tubal Ligation Social History Lives with: Family Smoking Status: Never Smoker Frequency of Alcohol Use: None Hx Recreational Drug Use: No Drugs: None Hx Prescription Drug Abuse: No - Advance Directive Resuscitation Status: Full Code Family History Family History: Arthritis, COPD, Hyperlipidemia, Hypertension, Malignancy, Thyroid Disfunction Parental Family History Reviewed: Yes Children Family History Reviewed: Yes Sibling(s) Family History Reviewed.: Yes Medication/Allergy Home Medications: Hydrocodone Bitartrate [Zohydro ER] 40 mg PO Q12 07/08/18 Levothyroxine Sodium [Synthroid] 100 mcg PO Q6AM 07/08/18 Pantoprazole Sodium [Protonix] 40 mg PO BID 07/08/18 Sertraline HCl [Zoloft 50 mg Tablet] 100 mg PO DAILY 07/08/18 Sucralfate [Carafate 1 gm Tablet] 1 gm PO QID 07/08/18 Bethanechol Chloride [Urecholine 10 mg Tablet] 10 mg PO Q8 08/19/18 Clopidogrel Bisulfate [Plavix 75 mg Tablet] 75 mg PO DAILY 08/19/18 Gabapentin [Neurontin] 600 mg PO Q8 08/19/18 Lidocaine [Lidoderm 5% (700 mg) Transdermal Patch] 1 patch TP DAILY 08/19/18 Oxycodone HCl/Acetaminophen [Percocet 10-325 mg Tablet] 1 each PO Q6HP PRN 08/19/18 Cyanocobalamin (Vitamin B-12) [Vitamin B-12 Inj 1000 Mcg/1 ml Vial] 1,000 mcg IM .MONTHLY 09/16/18 Montelukast Sodium [Singulair 10 mg Tablet] 10 mg PO QHS 09/16/18 Cyclobenzaprine HCl [Flexeril 10 mg Tablet] 10 mg PO Q8HP PRN 10/04/18 Tizanidine HCl [Zanaflex 4 mg Tablet] 4 mg PO HSP PRN MDD 8 MG 10/04/18 Zaleplon [Sonata] 10 mg PO HSP PRN 10/04/18 Allergies/Adverse Reactions: irbesartan [From Avapro] Allergy (Severe, Verified 10/30/18 12:05) swelling of face nitrofurantoin macrocrystalline [From Macrobid] Allergy (Severe, Verified 10/30/18 12:05) Generalized edema Penicillins Allergy (Severe, Verified 10/30/18 12:05) eyes swelled pregabalin [From Lyrica] Allergy (Severe, Verified 10/30/18 12:05) Equilibrium Issues venom-honey bee [bee venom (honey bee)] Allergy (Verified 10/30/18 12:05) Anaphylaxis Review of Systems Constitutional: PRESENT: weight loss. ABSENT: chills, fatigue, fever(s), headache(s) Eyes: ABSENT: visual disturbances Ears: ABSENT: hearing changes Nose, Mouth, and Throat: ABSENT: sore throat Cardiovascular: ABSENT: chest pain Respiratory: ABSENT: cough, dyspnea Gastrointestinal: PRESENT: abdominal pain, bloating, constipation, diarrhea. ABSENT: hematemesis, hematochezia, melena Genitourinary: ABSENT: dysuria Integumentary: ABSENT: pruritus, rash Neurological: ABSENT: confusion, convulsions, dizziness Psychiatric: ABSENT: anxiety Endocrine: ABSENT: cold intolerance, heat intolerance Hematologic/Lymphatic: PRESENT: easy bleeding, easy bruising Physical Exam Vital Signs: Temp Pulse Resp BP Pulse Ox 98.0 F 74 15 103/36 L 97 10/31/18 03:58 10/31/18 03:58 10/31/18 03:58 10/31/18 03:58 10/31/18 03:58 Intake & Output 10/29/18 10/30/18 10/31/18 06:59 06:59 06:59 Intake Total 1675 Output Total 750 Balance 925 Weight 85.4 kg General appearance: PRESENT: no acute distress, cooperative Head exam: PRESENT: atraumatic, normocephalic Eye exam: PRESENT: EOMI, PERRLA. ABSENT: scleral icterus Mouth exam: PRESENT: moist, neck supple Teeth exam: ABSENT: poor dentation Neck exam: ABSENT: meningismus, tenderness, thyromegaly, tracheal deviation Respiratory exam: PRESENT: clear to auscultation martínez, unlabored. ABSENT: chest wall tenderness, tachypnea Cardiovascular exam: PRESENT: RRR Pulses: PRESENT: normal radial pulses GI/Abdominal exam: PRESENT: soft. ABSENT: distended, guarding, rigid, tenderness Rectal exam: PRESENT: deferred Extremities exam: ABSENT: clubbing Musculoskeletal exam: ABSENT: deformity Neurological exam: PRESENT: alert, awake, oriented to person, oriented to place, oriented to time, oriented to situation Psychiatric exam: ABSENT: agitated, anxious, depressed Focused psych exam: ABSENT: delusional Skin exam: ABSENT: cyanosis, erythema, jaundice Results Laboratory Results: 10/30/18 15:17 10/30/18 15:17 10/30/18 10/30/18 10/30/18 15:17 15:17 15:54 WBC 12.0 H RBC 5.20 Hgb 13.2 Hct 39.8 MCV 77 L MCH 25.4 L MCHC 33.2 RDW 16.3 H Plt Count 429 Seg Neutrophils % 69.4 Lymphocytes % 19.2 Monocytes % 10.4 Eosinophils % 0.4 Basophils % 0.6 Absolute Neutrophils 8.4 H Absolute Lymphocytes 2.3 Absolute Monocytes 1.3 Absolute Eosinophils 0.0 Absolute Basophils 0.1 Sodium 137.5 Potassium 4.6 Chloride 101 Carbon Dioxide 24 Anion Gap 13 BUN 11 Creatinine 0.92 Est GFR ( Amer) > 60 Est GFR (Non-Af Amer) > 60 Glucose 91 Calcium 9.6 Total Bilirubin 0.4 AST 15 ALT 6 L Alkaline Phosphatase 132 H Total Protein 6.7 Albumin 4.2 Lipase 123.8 Urine Color JAMES Urine Appearance CLEAR Urine pH 7.0 Ur Specific [place] 1.006 Urine Protein NEGATIVE Urine Glucose (UA) NEGATIVE Urine Ketones NEGATIVE Urine Blood NEGATIVE Urine Nitrite POSITIVE H Ur Leukocyte Esterase TRACE H Urine WBC (Auto) 1 Urine RBC (Auto) 0 Impressions: Abdomen/Pelvis CT 10/30/18 00:00 IMPRESSION: No acute findings. Chest X-Ray 10/30/18 13:16 IMPRESSION: NO ACUTE RADIOGRAPHIC FINDING IN THE CHEST. Assessment & Plan - Diagnosis (1) Constipation Qualifiers: Constipation type: slow transit constipation Qualified Code(s): K59.01 - Slow transit constipation Is this a current diagnosis for this admission?: Yes (2) Gastroparesis Is this a current diagnosis for this admission?: Yes (3) Vomiting Qualifiers: Vomiting Intractability: intractable Nausea presence: with nausea Is this a current diagnosis for this admission?: Yes - Plan Summary Plan Summary: This is a 63-year-old female with a long history of nausea and vomiting. She was diagnosed with gastroparesis after a gastric emptying study was found to have slow transit through the stomach. The patient also suffers from constipation. I have reviewed her recent CT scan, showing fecal stasis throughout much of the colon. I have several recommendations for the patient. For her gastroparesis, Reglan may be of some benefit in controlling her symptoms. I would start the patient on 5 mg 3 times daily with meals and progress to 10 mg 3 times daily with meals, if tolerated. The patient takes chronic opioids and muscle relaxants at home. This slows transit to the colon. I would recommend daily stool softeners. The patient does have evidence of severe constipation on CT scan. I have discussed feeding jejunostomy with the patient at length. At this time, the patient is not ready to agree to surgical intervention for feedings. The patient is willing to adopt a high calorie, high protein liquid diet to maintain her weight. I have encouraged her that if her weight loss continues, and she will require a feeding jejunostomy she should contact us immediately. I will see the patient again on an as-needed basis. Please renotify with any questions or concerns.
[2018-10-31] MEDS: LIDOCAINE 5% (700 MG) TRANSDERMAL ADH..PATCH TP SCH (08:59)
[2018-10-31] MEDS: SUCRALFATE 1 GM TABLET PO SCH ×4 (08:59→22:15)
[2018-10-31] MEDS: SERTRALINE HCL 50 MG TABLET PO SCH (08:59)
[2018-10-31] MEDS ORDERED: CYANOCOBALAMIN (VITAMIN B-12) INJ 1000 MCG/1 ML VIAL IM SCH (10:00)
[2018-10-31] MEDS: ENOXAPARIN SODIUM INJ 100 MG/1 ML DISP.SYRIN SUBCUT SCH (22:14)
[2018-11-01] MEDS: OXYCODONE HCL IR 5 MG TABLET PO PRN ×3 (01:02→19:58)
[2018-11-01] MEDS: OXYCODONE-ACETAMINOPHEN 5-325 MG TABLET PO PRN ×4 (04:18→23:33)
[2018-11-01] MEDS: LEVOTHYROXINE SODIUM 0.1 MG TABLET PO SCH (05:44)
[2018-11-01] MEDS: GABAPENTIN 300 MG CAPSULE PO SCH ×3 (05:44→21:44)
[2018-11-01 07:41] LABS: HEMATOCRIT 31.7 % (36.0-47.0); MEAN CORPUSCULAR HEMOGLOBIN 25.7 pg (27.0-33.4); MEAN CORPUSCULAR HGB CONC 33.6 g/dL (32.0-36.0); MEAN CORPUSCULAR VOLUME 77 fl (80-97); PLATELET COUNT 313 10^3/uL (150-450); RED BLOOD COUNT 4.15 10^6/uL (3.72-5.28); RED CELL DISTRIBUTION WIDTH 16.4 % (11.5-14.0); WHITE BLOOD COUNT 7.5 10^3/uL (4.0-10.5)
[2018-11-01 07:44] LABS: HEMOGLOBIN 10.7 g/dL (12.0-15.5)
--- NOTE | 2018-11-01 08:21 | RADIOLOGY REPORT (SQ) ---
EXAM DESCRIPTION: VENOUS UNILATERAL UPPER COMPLETED DATE/TIME: 10/31/2018 8:16 pm REASON FOR STUDY: portacath site red and swollen COMPARISON: 10/25/2015 TECHNIQUE: Dynamic and static metzger scale and color images acquired of the left arm venous system. Se lected spectral images acquired with additional compression and augmentation maneuvers. The contralat eral subclavian vein and internal jugular vein were also imaged. Images stored on PACS. LIMITATIONS: None. FINDINGS: INTERNAL JUGULAR VEIN: Normal phasicity, compression, augmentation. No visualized echogeni c material on metzger scale. No defects on color images. Comparison opposite side normal. SUBCLAVIAN VEIN: Normal compression, augmentation. No visualized echogenic material on metzger scale. No defects on color images. AXILLARY VEIN: Occlusive thrombus within the left axillary vein; a catheter is visualized within the vessel. BRACHIAL VEIN: Normal compression, augmentation. No visualized echogenic material on metzger scale. No d efects on color images. BASILIC VEIN: Normal compression, augmentation. No visualized echogenic material on metzger scale. No de fects on color images. CEPHALIC VEIN: Normal compression, augmentation. No visualized echogenic material on metzger scale. No d efects on color images. OTHER: No other significant finding. CONTRALATERAL SUBCLAVIAN VEIN AND INTERNAL JUGULAR VEIN: Normal phasicity, compression and augmentation. No visualized echogenic material on metzger scale. No de fects on color images. IMPRESSION: Occlusive deep venous thrombus within the left axillary vein; a catheter is visualized w ithin the vessel. Preliminary results reported to Dr. Hilliard by conveyor belt operator at the time of examination. TECHNICAL DOCUMENTATION: JOB ID: [id number] [employer]- All Rights Reserved Reading location - IP/workstation name: [email or web address]
[2018-11-01] MEDS: TIZANIDINE HCL 4 MG TABLET PO PRN ×2 (10:30→23:39)
[2018-11-01] MEDS: SUCRALFATE 1 GM TABLET PO SCH ×3 (10:31→21:44)
[2018-11-01] MEDS: ENOXAPARIN SODIUM INJ 100 MG/1 ML DISP.SYRIN SUBCUT SCH ×2 (10:31→21:43)
[2018-11-01] MEDS: LIDOCAINE 5% (700 MG) TRANSDERMAL ADH..PATCH TP SCH (10:31)
[2018-11-01] MEDS: SERTRALINE HCL 50 MG TABLET PO SCH (10:31)
[2018-11-01] MEDS: ONDANSETRON HCL INJ/PF 4 MG/2 ML SDV IV PRN ×3 (11:08→23:33)
[2018-11-01 11:50] LABS: BLOOD UREA NITROGEN 10 mg/dL (7-20); CALCIUM 8.7 mg/dL (8.4-10.2); GLUCOSE 91 mg/dL (75-110); POTASSIUM 4.1 mmol/L (3.6-5.0)
[2018-11-01 11:51] LABS: ANION GAP 8 (5-19); CARBON DIOXIDE 25 mmol/L (22-30); CHLORIDE 102 mmol/L (98-107); SODIUM 135.4 mmol/L (137-145)
[2018-11-01] MEDS: POTASSI CL 40 MEQ/NS 1L 1,000 ML IV PRN ×2 (12:42→23:33)
--- NOTE | 2018-11-01 20:59 | PDOC PROGRESS REPORT ---
Subjective Progress Note for:: 11/01/18 Subjective:: She has swelling of the left upper extremities at the site of the Port-A-Cath venous Doppler was done demonstrated occlusive thrombus within the left axillary vein the catheter was visualized within the vein Reason For Visit: PERSISTANT VOMITING DUE TO GASTROPARESIS,DIARRHEA Physical Exam Vital Signs: Temp Pulse Resp BP Pulse Ox 97.8 F 81 16 90/60 L 99 11/01/18 13:00 11/01/18 19:00 11/01/18 13:00 11/01/18 13:00 11/01/18 13:00 Intake & Output 10/31/18 11/01/18 11/02/18 06:59 06:59 06:59 Intake Total 1675 2434 736 Output Total 888 600 2033 Balance 925 1534 -764 Weight 85.4 kg 88.1 kg 88.1 kg General appearance: PRESENT: no acute distress, well-developed, well-nourished Head exam: PRESENT: atraumatic, normocephalic Eye exam: PRESENT: conjunctiva pink, EOMI, PERRLA Ear exam: PRESENT: normal external ear exam Mouth exam: PRESENT: moist, tongue midline Neck exam: PRESENT: full ROM Respiratory exam: PRESENT: clear to auscultation martínez Cardiovascular exam: PRESENT: RRR, +S1, +S2 Vascular exam: PRESENT: normal capillary refill GI/Abdominal exam: PRESENT: normal bowel sounds, soft Rectal exam: PRESENT: deferred Neurological exam: PRESENT: alert, CN II-XII grossly intact. ABSENT: motor sensory deficit Psychiatric exam: PRESENT: appropriate affect, normal mood Skin exam: PRESENT: dry, intact, warm Results Laboratory Results: 11/01/18 06:19 11/01/18 06:19 11/01/18 11/01/18 06:19 06:19 WBC 7.5 RBC 4.15 Hgb 10.7 L D Hct 31.7 L MCV 77 L MCH 25.7 L MCHC 33.6 RDW 16.4 H Plt Count 313 Sodium 135.4 L Potassium 4.1 Chloride 102 Carbon Dioxide 25 Anion Gap 8 BUN 10 Creatinine 1.00 Est GFR ( Amer) > 60 Est GFR (Non-Af Amer) 56 L Glucose 91 Calcium 8.7 10/30/18 15:54 Clean Catch Midstream Urine Culture - Final Mixed Urogenital Mary Impressions: Abdomen/Pelvis CT 10/30/18 00:00 IMPRESSION: No acute findings. Chest X-Ray 10/30/18 13:16 IMPRESSION: NO ACUTE RADIOGRAPHIC FINDING IN THE CHEST. Venous Doppler Study 10/31/18 00:00 IMPRESSION: Occlusive deep venous thrombus within the left axillary vein; a catheter is visualized within the vessel. Preliminary results reported to Dr. Hilliard by nursing scheduler at the time of examination. Assessment & Plan - Diagnosis (1) Deep vein thrombosis of left upper extremity Qualifiers: Affected thrombotic vein of extremity: axillary Chronicity: acute Qualified Code(s): I82.A12 - Acute embolism and thrombosis of left axillary vein Is this a current diagnosis for this admission?: Yes Plan: continue lovenox (2) Gastroparesis Is this a current diagnosis for this admission?: Yes (3) Intractable vomiting Qualifiers: Vomiting type: unspecified Nausea presence: with nausea Qualified Code(s): R11.2 - Nausea with vomiting, unspecified Is this a current diagnosis for this admission?: Yes
[2018-11-01] MEDS: PHARMACY COMMUNICATION ORDER MC SCH (21:46)
[2018-11-02] MEDS: OXYCODONE HCL IR 5 MG TABLET PO PRN ×4 (03:03→21:55)
[2018-11-02] MEDS: GABAPENTIN 300 MG CAPSULE PO SCH ×3 (05:32→21:54)
[2018-11-02] MEDS: OXYCODONE-ACETAMINOPHEN 5-325 MG TABLET PO PRN ×3 (05:32→18:53)
[2018-11-02] MEDS: ONDANSETRON HCL INJ/PF 4 MG/2 ML SDV IV PRN (05:32)
[2018-11-02] MEDS: LEVOTHYROXINE SODIUM 0.1 MG TABLET PO SCH (05:32)
[2018-11-02] MEDS: LIDOCAINE 5% (700 MG) TRANSDERMAL ADH..PATCH TP SCH (08:57)
[2018-11-02] MEDS: ENOXAPARIN SODIUM INJ 100 MG/1 ML DISP.SYRIN SUBCUT SCH ×2 (08:57→21:54)
[2018-11-02] MEDS: SERTRALINE HCL 50 MG TABLET PO SCH (08:57)
[2018-11-02] MEDS: SUCRALFATE 1 GM TABLET PO SCH ×4 (09:16→21:54)
--- NOTE | 2018-11-02 16:48 | Progress Note ---
Provider Note Provider Note: Pt with an upper extremity DVT associated with a port. Mediport is still functional. It is ok to continue using the mediport. The pt should have full anticoagulation for at least 3 months. If there is concern for infection, the mediport will need to be removed. Will check blood cultures to ensure there is no sign of infection. Please draw one blood culture through the mediport.
--- NOTE | 2018-11-02 18:40 | PDOC PROGRESS REPORT ---
Subjective Progress Note for:: 11/02/18 Subjective:: Patient was seen by the bedside she has deep vein thrombosis of the left axillary vein provoked by the Port-A-Cath, I am not sure if it is safe to use this Port-A-Cath for IV fluid administration I asked the nurses to consult the surgeon, she was brought in because of persistent vomiting and also for may be placement of J-tube Reason For Visit: PERSISTANT VOMITING DUE TO GASTROPARESIS,DIARRHEA Physical Exam Vital Signs: Temp Pulse Resp BP Pulse Ox 98.1 F 82 17 112/53 L 100 11/02/18 11:38 11/02/18 14:00 11/02/18 11:38 11/02/18 11:38 11/02/18 11:38 Intake & Output 11/01/18 11/02/18 11/03/18 06:59 06:59 06:59 Intake Total 2434 1736 1503 Output Total 900 1500 Balance 4584 245 1854 Weight 88.1 kg 90.1 kg General appearance: PRESENT: no acute distress Eye exam: PRESENT: PERRLA Cardiovascular exam: PRESENT: +S1, +S2 GI/Abdominal exam: PRESENT: soft Neurological exam: PRESENT: alert Results Laboratory Results: 11/01/18 06:19 11/01/18 06:19 Impressions: Abdomen/Pelvis CT 10/30/18 00:00 IMPRESSION: No acute findings. Chest X-Ray 10/30/18 13:16 IMPRESSION: NO ACUTE RADIOGRAPHIC FINDING IN THE CHEST. Venous Doppler Study 10/31/18 00:00 IMPRESSION: Occlusive deep venous thrombus within the left axillary vein; a catheter is visualized within the vessel. Preliminary results reported to Dr. Hilliard by tire trimmer hand at the time of examination. Assessment & Plan - Diagnosis (1) Intractable vomiting with nausea Qualifiers: Vomiting type: unspecified Qualified Code(s): R11.2 - Nausea with vomiting, unspecified Is this a current diagnosis for this admission?: Yes (2) Gastroparesis Is this a current diagnosis for this admission?: Yes (3) Deep vein thrombosis of axillary vein of left upper extremity Qualifiers: Chronicity: acute Qualified Code(s): I82.A12 - Acute embolism and thrombosis of left axillary vein Is this a current diagnosis for this admission?: Yes Plan: She had deep vein thrombosis of the left axillary vein of the left upper extremity,Continue Lovenox
[2018-11-02] MEDS ORDERED: ONDANSETRON 4 MG TAB.RAPDIS ONE (21:52)
[2018-11-02] MEDS: ONDANSETRON 4 MG TAB.RAPDIS PO PRN (21:57)
[2018-11-02] MEDS: TIZANIDINE HCL 4 MG TABLET PO PRN (21:59)
[2018-11-02] MEDS: PHARMACY COMMUNICATION ORDER MC SCH (23:04)
[2018-11-03] MEDS: ONDANSETRON 4 MG TAB.RAPDIS PO PRN ×3 (05:47→18:53)
[2018-11-03] MEDS: GABAPENTIN 300 MG CAPSULE PO SCH ×3 (05:47→21:39)
[2018-11-03] MEDS: OXYCODONE HCL IR 5 MG TABLET PO PRN ×3 (05:48→18:53)
[2018-11-03] MEDS: LEVOTHYROXINE SODIUM 0.1 MG TABLET PO SCH (05:48)
[2018-11-03] MEDS: OXYCODONE-ACETAMINOPHEN 5-325 MG TABLET PO PRN ×3 (05:48→18:53)
[2018-11-03] MEDS: SERTRALINE HCL 50 MG TABLET PO SCH (09:40)
[2018-11-03] MEDS: LIDOCAINE 5% (700 MG) TRANSDERMAL ADH..PATCH TP SCH (09:41)
[2018-11-03] MEDS: ENOXAPARIN SODIUM INJ 100 MG/1 ML DISP.SYRIN SUBCUT SCH ×2 (09:41→21:39)
[2018-11-03] MEDS: SUCRALFATE 1 GM TABLET PO SCH ×4 (09:41→21:39)
--- NOTE | 2018-11-03 17:59 | PDOC PROGRESS REPORT ---
Subjective Progress Note for:: 11/03/18 Subjective:: Patient was seen by the bedside she has deep vein thrombosis of the left axillary vein provoked by the Port-A-Cath, I am not sure if it is safe to use this Port-A-Cath for IV fluid administration I asked the nurses to consult the surgeon, she was brought in because of persistent vomiting and also for may be placement of J-tube Reason For Visit: PERSISTANT VOMITING DUE TO GASTROPARESIS,DIARRHEA Physical Exam Vital Signs: Temp Pulse Resp BP Pulse Ox 98.2 F 76 20 142/51 H 100 11/03/18 15:19 11/03/18 15:19 11/03/18 15:19 11/03/18 15:19 11/03/18 15:19 Intake & Output 11/02/18 11/03/18 11/04/18 06:59 06:59 06:59 Intake Total 1736 2203 1150 Output Total 1500 2200 Balance 236 2203 -1050 Weight 90.1 kg General appearance: PRESENT: no acute distress Eye exam: PRESENT: PERRLA Respiratory exam: PRESENT: clear to auscultation martínez Cardiovascular exam: PRESENT: +S1, +S2 GI/Abdominal exam: PRESENT: soft Neurological exam: PRESENT: alert Results Laboratory Results: 11/01/18 06:19 11/01/18 06:19 Impressions: Abdomen/Pelvis CT 10/30/18 00:00 IMPRESSION: No acute findings. Chest X-Ray 10/30/18 13:16 IMPRESSION: NO ACUTE RADIOGRAPHIC FINDING IN THE CHEST. Venous Doppler Study 10/31/18 00:00 IMPRESSION: Occlusive deep venous thrombus within the left axillary vein; a catheter is visualized within the vessel. Preliminary results reported to Dr. Hilliard by education administrative assistant at the time of examination. Assessment & Plan - Diagnosis (1) Intractable vomiting with nausea Qualifiers: Vomiting type: unspecified Qualified Code(s): R11.2 - Nausea with vomiting, unspecified Is this a current diagnosis for this admission?: Yes (2) Gastroparesis Is this a current diagnosis for this admission?: Yes (3) Deep vein thrombosis of axillary vein of left upper extremity Qualifiers: Chronicity: acute Qualified Code(s): I82.A12 - Acute embolism and thrombosis of left axillary vein Is this a current diagnosis for this admission?: Yes Plan: She had deep vein thrombosis of the left axillary vein of the left upper extremity,Continue Lovenox
[2018-11-03] MEDS: PHARMACY COMMUNICATION ORDER MC SCH (21:40)
[2018-11-04] MEDS: ONDANSETRON 4 MG TAB.RAPDIS PO PRN ×4 (01:33→21:05)
[2018-11-04] MEDS: OXYCODONE HCL IR 5 MG TABLET PO PRN ×3 (01:33→16:05)
[2018-11-04] MEDS: OXYCODONE-ACETAMINOPHEN 5-325 MG TABLET PO PRN ×4 (01:34→21:05)
[2018-11-04] MEDS: LEVOTHYROXINE SODIUM 0.1 MG TABLET PO SCH (05:18)
[2018-11-04] MEDS: GABAPENTIN 300 MG CAPSULE PO SCH ×3 (05:18→21:07)
[2018-11-04 06:43] LABS: ABSOLUTE BASOPHILS # (AUTO) 0.1 10^3/uL (0.0-0.2); ABSOLUTE EOSINOPHILS # (AUTO) 0.1 10^3/uL (0.0-0.6); ABSOLUTE LYMPHOCYTES (AUTO) 1.6 10^3/uL (0.5-4.7); ABSOLUTE MONOCYTES (AUTO) 0.8 10^3/uL (0.1-1.4); ABSOLUTE NEUT (AUTO) 4.4 10^3/uL (1.7-8.2); EOSINOPHILS % (AUTO) 1.6 % (0-6); HEMATOCRIT 31.2 % (36.0-47.0); HEMOGLOBIN 10.3 g/dL (12.0-15.5); LYMPHOCYTES % (AUTO) 22.7 % (13-45); MEAN CORPUSCULAR HEMOGLOBIN 25.3 pg (27.0-33.4); MEAN CORPUSCULAR HGB CONC 33.2 g/dL (32.0-36.0); MEAN CORPUSCULAR VOLUME 76 fl (80-97); MONOCYTES % (AUTO) 11.5 % (3-13); PLATELET COUNT 269 10^3/uL (150-450); RED BLOOD COUNT 4.08 10^6/uL (3.72-5.28); RED CELL DISTRIBUTION WIDTH 16.6 % (11.5-14.0); SEGMENTED NEUTROPHILS % (AUTO) 63.2 % (42-78); TOTAL CELLS COUNTED % (AUTO) 100 %
[2018-11-04 08:26] LABS: ANION GAP 10 (5-19); BLOOD UREA NITROGEN 6 mg/dL (7-20); CALCIUM 9.2 mg/dL (8.4-10.2); CARBON DIOXIDE 26 mmol/L (22-30); CHLORIDE 102 mmol/L (98-107); GLUCOSE 90 mg/dL (75-110); POTASSIUM 4.7 mmol/L (3.6-5.0); SODIUM 137.8 mmol/L (137-145)
[2018-11-04] MEDS: SUCRALFATE 1 GM TABLET PO SCH ×4 (09:49→21:04)
[2018-11-04] MEDS: LIDOCAINE 5% (700 MG) TRANSDERMAL ADH..PATCH TP SCH (09:52)
[2018-11-04] MEDS: ENOXAPARIN SODIUM INJ 100 MG/1 ML DISP.SYRIN SUBCUT SCH ×2 (09:52→21:04)
[2018-11-04] MEDS: SERTRALINE HCL 50 MG TABLET PO SCH (09:53)
[2018-11-04] MEDS: PHARMACY COMMUNICATION ORDER MC SCH (21:09)
[2018-11-05] MEDS: TIZANIDINE HCL 4 MG TABLET PO PRN ×2 (01:18→20:57)
[2018-11-05] MEDS: OXYCODONE HCL IR 5 MG TABLET PO PRN ×4 (01:18→20:54)
[2018-11-05] MEDS: OXYCODONE-ACETAMINOPHEN 5-325 MG TABLET PO PRN ×4 (03:27→23:09)
[2018-11-05] MEDS: ONDANSETRON 4 MG TAB.RAPDIS PO PRN ×4 (03:27→23:09)
[2018-11-05] MEDS: GABAPENTIN 300 MG CAPSULE PO SCH ×3 (06:11→21:05)
[2018-11-05] MEDS: LEVOTHYROXINE SODIUM 0.1 MG TABLET PO SCH (06:11)
[2018-11-05] MEDS: SERTRALINE HCL 50 MG TABLET PO SCH (09:33)
[2018-11-05] MEDS: SUCRALFATE 1 GM TABLET PO SCH ×4 (09:33→21:04)
[2018-11-05] MEDS: ENOXAPARIN SODIUM INJ 100 MG/1 ML DISP.SYRIN SUBCUT SCH ×2 (09:34→21:04)
[2018-11-05] MEDS: LIDOCAINE 5% (700 MG) TRANSDERMAL ADH..PATCH TP SCH (09:34)
--- NOTE | 2018-11-05 19:50 | PDOC PROGRESS REPORT ---
Subjective Progress Note for:: 11/04/18 Subjective:: Patient was seen by the bedside Reason For Visit: PERSISTANT VOMITING DUE TO GASTROPARESIS,DIARRHEA Physical Exam Vital Signs: Temp Pulse Resp BP Pulse Ox 98.5 F 74 18 132/60 H 100 11/05/18 16:01 11/05/18 16:01 11/05/18 16:01 11/05/18 16:01 11/05/18 16:01 Intake & Output 11/04/18 11/05/18 11/06/18 06:59 06:59 06:59 Intake Total 1950 884 520 Output Total 2400 3650 500 Balance -450 -2409 20 Weight 92.1 kg General appearance: PRESENT: no acute distress Eye exam: PRESENT: PERRLA Respiratory exam: PRESENT: clear to auscultation martínez Cardiovascular exam: PRESENT: +S1, +S2 Neurological exam: PRESENT: alert Results Laboratory Results: 11/04/18 06:10 11/04/18 07:35 Impressions: Abdomen/Pelvis CT 10/30/18 00:00 IMPRESSION: No acute findings. Chest X-Ray 10/30/18 13:16 IMPRESSION: NO ACUTE RADIOGRAPHIC FINDING IN THE CHEST. Venous Doppler Study 10/31/18 00:00 IMPRESSION: Occlusive deep venous thrombus within the left axillary vein; a catheter is visualized within the vessel. Preliminary results reported to Dr. Hilliard by electronic transaction implementer at the time of examination. Assessment & Plan - Diagnosis (1) Intractable vomiting with nausea Qualifiers: Vomiting type: unspecified Qualified Code(s): R11.2 - Nausea with vomiting, unspecified Is this a current diagnosis for this admission?: Yes (2) Gastroparesis Is this a current diagnosis for this admission?: Yes (3) Deep vein thrombosis of axillary vein of left upper extremity Qualifiers: Chronicity: acute Qualified Code(s): I82.A12 - Acute embolism and thrombosis of left axillary vein Is this a current diagnosis for this admission?: Yes
--- NOTE | 2018-11-05 19:51 | PDOC PROGRESS REPORT ---
Subjective Progress Note for:: 11/05/18 Subjective:: Patient was seen by the bedside she has no new complaints Reason For Visit: PERSISTANT VOMITING DUE TO GASTROPARESIS,DIARRHEA Physical Exam Vital Signs: Temp Pulse Resp BP Pulse Ox 98.5 F 74 18 132/60 H 100 11/05/18 16:01 11/05/18 16:01 11/05/18 16:01 11/05/18 16:01 11/05/18 16:01 Intake & Output 11/04/18 11/05/18 11/06/18 06:59 06:59 06:59 Intake Total 1950 884 520 Output Total 2400 3650 500 Balance -450 -8076 20 Weight 92.1 kg General appearance: PRESENT: no acute distress Eye exam: PRESENT: PERRLA Respiratory exam: PRESENT: clear to auscultation martínez Cardiovascular exam: PRESENT: +S1, +S2 GI/Abdominal exam: PRESENT: soft Results Laboratory Results: 11/04/18 06:10 11/04/18 07:35 Impressions: Abdomen/Pelvis CT 10/30/18 00:00 IMPRESSION: No acute findings. Chest X-Ray 10/30/18 13:16 IMPRESSION: NO ACUTE RADIOGRAPHIC FINDING IN THE CHEST. Venous Doppler Study 10/31/18 00:00 IMPRESSION: Occlusive deep venous thrombus within the left axillary vein; a catheter is visualized within the vessel. Preliminary results reported to Dr. Hilliard by client relations specialist at the time of examination. Assessment & Plan - Diagnosis (1) Intractable vomiting with nausea Qualifiers: Vomiting type: unspecified Qualified Code(s): R11.2 - Nausea with vomiting, unspecified Is this a current diagnosis for this admission?: Yes (2) Gastroparesis Is this a current diagnosis for this admission?: Yes (3) Deep vein thrombosis of axillary vein of left upper extremity Qualifiers: Chronicity: acute Qualified Code(s): I82.A12 - Acute embolism and thrombosis of left axillary vein Is this a current diagnosis for this admission?: Yes
[2018-11-05] MEDS: PHARMACY COMMUNICATION ORDER MC SCH (21:07)
[2018-11-06] MEDS: LEVOTHYROXINE SODIUM 0.1 MG TABLET PO SCH (05:11)
[2018-11-06] MEDS: GABAPENTIN 300 MG CAPSULE PO SCH ×3 (05:11→21:43)
[2018-11-06] MEDS: ONDANSETRON 4 MG TAB.RAPDIS PO PRN ×3 (05:12→21:43)
[2018-11-06] MEDS: OXYCODONE-ACETAMINOPHEN 5-325 MG TABLET PO PRN ×3 (05:12→19:54)
[2018-11-06 06:43] LABS: HEMATOCRIT 30.1 % (36.0-47.0); HEMOGLOBIN 10.1 g/dL (12.0-15.5); MEAN CORPUSCULAR HEMOGLOBIN 25.8 pg (27.0-33.4); MEAN CORPUSCULAR HGB CONC 33.7 g/dL (32.0-36.0); MEAN CORPUSCULAR VOLUME 77 fl (80-97); PLATELET COUNT 177 10^3/uL (150-450); RED BLOOD COUNT 3.94 10^6/uL (3.72-5.28); RED CELL DISTRIBUTION WIDTH 17.1 % (11.5-14.0); WHITE BLOOD COUNT 5.3 10^3/uL (4.0-10.5)
[2018-11-06] MEDS: SUCRALFATE 1 GM TABLET PO SCH ×4 (08:00→21:43)
[2018-11-06] MEDS: OXYCODONE HCL IR 5 MG TABLET PO PRN ×3 (08:05→21:43)
[2018-11-06] MEDS: SERTRALINE HCL 50 MG TABLET PO SCH (10:00)
[2018-11-06] MEDS: ENOXAPARIN SODIUM INJ 100 MG/1 ML DISP.SYRIN SUBCUT SCH ×2 (10:00→21:44)
[2018-11-06] MEDS: LIDOCAINE 5% (700 MG) TRANSDERMAL ADH..PATCH TP SCH (10:01)
--- NOTE | 2018-11-06 17:12 | PDOC PROGRESS REPORT ---
Subjective Progress Note for:: 11/06/18 Subjective:: Patient was seen by the bedside Reason For Visit: PERSISTANT VOMITING DUE TO GASTROPARESIS,DIARRHEA Physical Exam Vital Signs: Temp Pulse Resp BP Pulse Ox 98.6 F 76 17 140/58 H 98 11/06/18 14:53 11/06/18 14:53 11/06/18 14:53 11/06/18 14:53 11/06/18 14:53 Intake & Output 11/05/18 11/06/18 11/07/18 06:59 06:59 06:59 Intake Total 884 880 618 Output Total 3650 1900 400 Balance -7866 -1020 218 Weight 92.3 kg General appearance: PRESENT: no acute distress Eye exam: PRESENT: PERRLA Respiratory exam: PRESENT: clear to auscultation martínez Cardiovascular exam: PRESENT: +S1, +S2 Neurological exam: PRESENT: alert Results Laboratory Results: 11/06/18 05:46 11/04/18 07:35 11/06/18 05:46 WBC 5.3 RBC 3.94 Hgb 10.1 L Hct 30.1 L MCV 77 L MCH 25.8 L MCHC 33.7 RDW 17.1 H Plt Count 177 Impressions: Abdomen/Pelvis CT 10/30/18 00:00 IMPRESSION: No acute findings. Chest X-Ray 10/30/18 13:16 IMPRESSION: NO ACUTE RADIOGRAPHIC FINDING IN THE CHEST. Venous Doppler Study 10/31/18 00:00 IMPRESSION: Occlusive deep venous thrombus within the left axillary vein; a catheter is visualized within the vessel. Preliminary results reported to Dr. Hilliard by director of category management at the time of examination. Assessment & Plan - Diagnosis (1) Intractable vomiting with nausea Qualifiers: Vomiting type: unspecified Qualified Code(s): R11.2 - Nausea with vomiting, unspecified Is this a current diagnosis for this admission?: Yes (2) Gastroparesis Is this a current diagnosis for this admission?: Yes (3) Deep vein thrombosis of axillary vein of left upper extremity Qualifiers: Chronicity: acute Qualified Code(s): I82.A12 - Acute embolism and thrombosis of left axillary vein Is this a current diagnosis for this admission?: Yes
[2018-11-06] MEDS: PHARMACY COMMUNICATION ORDER MC SCH (21:45)
[2018-11-07] MEDS: ONDANSETRON 4 MG TAB.RAPDIS PO PRN ×3 (05:37→18:06)
[2018-11-07] MEDS: OXYCODONE-ACETAMINOPHEN 5-325 MG TABLET PO PRN ×3 (05:37→18:06)
[2018-11-07] MEDS: OXYCODONE HCL IR 5 MG TABLET PO PRN ×3 (05:37→18:06)
[2018-11-07] MEDS: LEVOTHYROXINE SODIUM 0.1 MG TABLET PO SCH (05:37)
[2018-11-07] MEDS: GABAPENTIN 300 MG CAPSULE PO SCH ×2 (05:37→13:26)
[2018-11-07] MEDS: SUCRALFATE 1 GM TABLET PO SCH ×3 (08:34→15:19)
[2018-11-07] MEDS: LIDOCAINE 5% (700 MG) TRANSDERMAL ADH..PATCH TP SCH (09:58)
[2018-11-07] MEDS: ENOXAPARIN SODIUM INJ 100 MG/1 ML DISP.SYRIN SUBCUT SCH (09:58)
[2018-11-07] MEDS: SERTRALINE HCL 50 MG TABLET PO SCH (09:58)
--- NOTE | 2018-11-07 21:37 | PDOC PROGRESS REPORT ---
Subjective Progress Note for:: 11/07/18 Subjective:: Patient was seen by the bedside Reason For Visit: PERSISTANT VOMITING DUE TO GASTROPARESIS,DIARRHEA Physical Exam Vital Signs: Temp Pulse Resp BP Pulse Ox 98.3 F 82 16 126/58 H 98 11/07/18 15:39 11/07/18 19:00 11/07/18 15:39 11/07/18 15:39 11/07/18 15:39 Intake & Output 11/06/18 11/07/18 11/08/18 06:59 06:59 06:59 Intake Total 880 1609 950 Output Total 1900 2800 1600 Balance -1020 -1191 -650 Weight 92.3 kg 93.2 kg General appearance: PRESENT: no acute distress Eye exam: PRESENT: PERRLA Respiratory exam: PRESENT: clear to auscultation martínez Cardiovascular exam: PRESENT: +S1, +S2 GI/Abdominal exam: PRESENT: soft Neurological exam: PRESENT: alert Results Laboratory Results: 11/06/18 05:46 11/04/18 07:35 11/02/18 19:20 Blood Blood Culture - Final NO GROWTH IN 5 DAYS 11/02/18 17:20 Blood Blood Culture - Final NO GROWTH IN 5 DAYS Impressions: Abdomen/Pelvis CT 10/30/18 00:00 IMPRESSION: No acute findings. Chest X-Ray 10/30/18 13:16 IMPRESSION: NO ACUTE RADIOGRAPHIC FINDING IN THE CHEST. Venous Doppler Study 10/31/18 00:00 IMPRESSION: Occlusive deep venous thrombus within the left axillary vein; a catheter is visualized within the vessel. Preliminary results reported to Dr. Hilliard by tassel clipper at the time of examination. Assessment & Plan - Diagnosis (1) Intractable vomiting with nausea Qualifiers: Vomiting type: unspecified Qualified Code(s): R11.2 - Nausea with vomiting, unspecified Is this a current diagnosis for this admission?: Yes (2) Gastroparesis Is this a current diagnosis for this admission?: Yes (3) Deep vein thrombosis of axillary vein of left upper extremity Qualifiers: Chronicity: acute Qualified Code(s): I82.A12 - Acute embolism and thrombosis of left axillary vein Is this a current diagnosis for this admission?: Yes
[2018-11-08] MEDS: SUCRALFATE 1 GM TABLET PO SCH ×5 (00:22→22:00)
[2018-11-08] MEDS: GABAPENTIN 300 MG CAPSULE PO SCH ×4 (00:22→22:00)
[2018-11-08] MEDS: ENOXAPARIN SODIUM INJ 100 MG/1 ML DISP.SYRIN SUBCUT SCH ×3 (00:23→22:00)
[2018-11-08] MEDS: ONDANSETRON 4 MG TAB.RAPDIS PO PRN ×4 (00:23→22:00)
[2018-11-08] MEDS: OXYCODONE HCL IR 5 MG TABLET PO PRN ×4 (00:23→22:01)
[2018-11-08] MEDS: OXYCODONE-ACETAMINOPHEN 5-325 MG TABLET PO PRN ×4 (00:23→22:01)
[2018-11-08] MEDS: PHARMACY COMMUNICATION ORDER MC SCH ×2 (00:24→23:15)
[2018-11-08 05:52] LABS: HEMATOCRIT 30.5 % (36.0-47.0); HEMOGLOBIN 10.3 g/dL (12.0-15.5); MEAN CORPUSCULAR HEMOGLOBIN 25.8 pg (27.0-33.4); MEAN CORPUSCULAR HGB CONC 33.7 g/dL (32.0-36.0); MEAN CORPUSCULAR VOLUME 77 fl (80-97); PLATELET COUNT 247 10^3/uL (150-450); RED BLOOD COUNT 3.98 10^6/uL (3.72-5.28); RED CELL DISTRIBUTION WIDTH 17.1 % (11.5-14.0)
[2018-11-08] MEDS: LEVOTHYROXINE SODIUM 0.1 MG TABLET PO SCH (06:45)
[2018-11-08] MEDS: SERTRALINE HCL 50 MG TABLET PO SCH (09:27)
[2018-11-08] MEDS: LIDOCAINE 5% (700 MG) TRANSDERMAL ADH..PATCH TP SCH (09:27)
[2018-11-08] MEDS: TIZANIDINE HCL 4 MG TABLET PO PRN (22:04)
--- NOTE | 2018-11-08 22:37 | PDOC PROGRESS REPORT ---
Subjective Progress Note for:: 11/08/18 Subjective:: Patient was seen by the bedside Reason For Visit: PERSISTANT VOMITING DUE TO GASTROPARESIS,DIARRHEA Physical Exam Vital Signs: Temp Pulse Resp BP Pulse Ox 98.4 F 71 16 146/83 H 95 11/08/18 19:08 11/08/18 19:08 11/08/18 19:08 11/08/18 19:08 11/08/18 19:08 Intake & Output 11/07/18 11/08/18 11/09/18 06:59 06:59 06:59 Intake Total 1609 1400 1037 Output Total 2800 2120 800 Balance -1191 -720 237 Weight 93.2 kg 94.2 kg General appearance: PRESENT: no acute distress Eye exam: PRESENT: PERRLA Respiratory exam: PRESENT: clear to auscultation martínez Cardiovascular exam: PRESENT: +S1, +S2 GI/Abdominal exam: PRESENT: soft Neurological exam: PRESENT: alert Results Laboratory Results: 11/08/18 05:27 11/04/18 07:35 11/08/18 05:27 WBC 5.0 RBC 3.98 Hgb 10.3 L Hct 30.5 L MCV 77 L MCH 25.8 L MCHC 33.7 RDW 17.1 H Plt Count 247 11/02/18 19:20 Blood Blood Culture - Final NO GROWTH IN 5 DAYS Impressions: Abdomen/Pelvis CT 10/30/18 00:00 IMPRESSION: No acute findings. Chest X-Ray 10/30/18 13:16 IMPRESSION: NO ACUTE RADIOGRAPHIC FINDING IN THE CHEST. Venous Doppler Study 10/31/18 00:00 IMPRESSION: Occlusive deep venous thrombus within the left axillary vein; a cat heter is visualized within the vessel. Preliminary results reported to Dr. Hilliard by planner internship at the time of examination. Assessment & Plan - Diagnosis (1) Intractable vomiting with nausea Qualifiers: Vomiting type: unspecified Qualified Code(s): R11.2 - Nausea with vomiting, unspecified Is this a current diagnosis for this admission?: Yes (2) Gastroparesis Is this a current diagnosis for this admission?: Yes (3) Deep vein thrombosis of axillary vein of left upper extremity Qualifiers: Chronicity: acute Qualified Code(s): I82.A12 - Acute embolism and thrombosis of left axillary vein Is this a current diagnosis for this admission?: Yes Plan: She had deep vein thrombosis of the left axillary vein of the left upper extremity,Continue Lovenox
[2018-11-09] MEDS: GABAPENTIN 300 MG CAPSULE PO SCH ×2 (06:56→13:03)
[2018-11-09] MEDS: ONDANSETRON 4 MG TAB.RAPDIS PO PRN ×3 (06:56→18:55)
[2018-11-09] MEDS: OXYCODONE-ACETAMINOPHEN 5-325 MG TABLET PO PRN ×3 (06:56→18:55)
[2018-11-09] MEDS: LEVOTHYROXINE SODIUM 0.1 MG TABLET PO SCH (06:56)
[2018-11-09] MEDS: OXYCODONE HCL IR 5 MG TABLET PO PRN ×3 (06:56→18:55)
[2018-11-09] MEDS: SUCRALFATE 1 GM TABLET PO SCH ×3 (08:11→16:36)
[2018-11-09] MEDS: SERTRALINE HCL 50 MG TABLET PO SCH (09:21)
[2018-11-09] MEDS: LIDOCAINE 5% (700 MG) TRANSDERMAL ADH..PATCH TP SCH (09:21)
[2018-11-09] MEDS: ENOXAPARIN SODIUM INJ 100 MG/1 ML DISP.SYRIN SUBCUT SCH (09:21)
--- NOTE | 2018-11-09 10:39 | PDOC PROGRESS REPORT ---
Subjective Progress Note for:: 11/09/18 Subjective:: Patient is currently doing fair Patient's edges were admitted because of persistent nausea vomiting seen by the general surgery patient do not want to go for any tube feeding placement Patient also have a DVT in the left upper extremity currently on Lovenox therapy Patient is denied any chest pain to than any shortness of the breath Reason For Visit: PERSISTANT VOMITING DUE TO GASTROPARESIS,DIARRHEA Physical Exam Vital Signs: Temp Pulse Resp BP Pulse Ox 98.0 F 66 18 150/59 H 100 11/09/18 08:00 11/09/18 08:00 11/09/18 08:00 11/09/18 08:00 11/09/18 08:00 Intake & Output 11/08/18 11/09/18 11/10/18 06:59 06:59 06:59 Intake Total 1400 1626 Output Total 2120 800 Balance -720 826 Weight 94.2 kg 89 kg General appearance: PRESENT: no acute distress, well-developed, well-nourished Head exam: PRESENT: atraumatic, normocephalic Eye exam: PRESENT: conjunctiva pink, EOMI, PERRLA. ABSENT: scleral icterus Ear exam: PRESENT: normal external ear exam Mouth exam: PRESENT: moist, tongue midline Neck exam: PRESENT: full ROM. ABSENT: carotid bruit, JVD, lymphadenopathy, thyromegaly Respiratory exam: PRESENT: clear to auscultation martínez Cardiovascular exam: PRESENT: RRR. ABSENT: diastolic murmur, rubs, systolic murmur Vascular exam: PRESENT: normal capillary refill GI/Abdominal exam: PRESENT: normal bowel sounds, soft. ABSENT: distended, guarding, mass, organolmegaly, rebound, tenderness Rectal exam: PRESENT: deferred Neurological exam: PRESENT: alert, awake, oriented to person, oriented to place, oriented to time, oriented to situation, CN II-XII grossly intact. ABSENT: motor sensory deficit Psychiatric exam: PRESENT: appropriate affect, normal mood. ABSENT: homicidal ideation, suicidal ideation Skin exam: PRESENT: dry, intact, warm. ABSENT: cyanosis, rash Results Laboratory Results: 11/08/18 05:27 11/04/18 07:35 Impressions: Abdomen/Pelvis CT 10/30/18 00:00 IMPRESSION: No acute findings. Chest X-Ray 10/30/18 13:16 IMPRESSION: NO ACUTE RADIOGRAPHIC FINDING IN THE CHEST. Venous Doppler Study 10/31/18 00:00 IMPRESSION: Occlusive deep venous thrombus within the left axillary vein; a catheter is visualized within the vessel. Preliminary results reported to Dr. Hilliard by general utility maintenance repairer at the time of examination. Assessment & Plan - Diagnosis (1) Deep vein thrombosis of axillary vein of left upper extremity Qualifiers: Chronicity: acute Qualified Code(s): I82.A12 - Acute embolism and thrombosis of left axillary vein Is this a current diagnosis for this admission?: Yes (2) Gastroparesis Is this a current diagnosis for this admission?: Yes (3) Intractable vomiting with nausea Qualifiers: Vomiting type: unspecified Qualified Code(s): R11.2 - Nausea with vomiting, unspecified Is this a current diagnosis for this admission?: Yes (4) Anemia Qualifiers: Anemia type: iron deficiency Iron deficiency anemia type: unspecified iron deficiency Qualified Code(s): D50.9 - Iron deficiency anemia, unspecified Is this a current diagnosis for this admission?: Yes - Time Time Spent with patient: 15-24 minutes Medications reviewed and adjusted accordingly: Yes Anticipated discharge: Other Within: Other - Plan Summary Plan Summary: Continues to current medications
[2018-11-10] MEDS: ENOXAPARIN SODIUM INJ 100 MG/1 ML DISP.SYRIN SUBCUT SCH ×3 (01:10→23:44)
[2018-11-10] MEDS: OXYCODONE HCL IR 5 MG TABLET PO PRN ×4 (01:11→20:05)
[2018-11-10] MEDS: OXYCODONE-ACETAMINOPHEN 5-325 MG TABLET PO PRN ×4 (01:11→20:05)
[2018-11-10] MEDS: SUCRALFATE 1 GM TABLET PO SCH ×5 (01:11→23:44)
[2018-11-10] MEDS: GABAPENTIN 300 MG CAPSULE PO SCH ×4 (01:11→23:44)
[2018-11-10] MEDS: ONDANSETRON 4 MG TAB.RAPDIS PO PRN ×4 (01:11→20:05)
[2018-11-10] MEDS: PHARMACY COMMUNICATION ORDER MC SCH (01:12)
[2018-11-10] MEDS: LEVOTHYROXINE SODIUM 0.1 MG TABLET PO SCH (05:18)
[2018-11-10] MEDS: SERTRALINE HCL 50 MG TABLET PO SCH (09:29)
[2018-11-10] MEDS: LIDOCAINE 5% (700 MG) TRANSDERMAL ADH..PATCH TP SCH (09:29)
--- NOTE | 2018-11-10 10:37 | PDOC PROGRESS REPORT ---
Subjective Progress Note for:: 11/10/18 Subjective:: Patient is currently doing fair Patient's edges were admitted because of persistent nausea vomiting seen by the general surgery patient do not want to go for any tube feeding placement Patient also have a DVT in the left upper extremity currently on Lovenox therapy Patient is denied any chest pain to than any shortness of the breath Reason For Visit: PERSISTANT VOMITING DUE TO GASTROPARESIS,DIARRHEA Physical Exam Vital Signs: Temp Pulse Resp BP Pulse Ox 97.6 F 71 18 145/59 H 100 11/10/18 08:00 11/10/18 08:00 11/10/18 08:00 11/10/18 08:00 11/10/18 08:00 Intake & Output 11/09/18 11/10/18 11/11/18 06:59 06:59 06:59 Intake Total 1626 1623 Output Total 800 1575 Balance 826 48 Weight 89 kg 89.5 kg General appearance: PRESENT: no acute distress, well-developed, well-nourished Head exam: PRESENT: atraumatic, normocephalic Eye exam: PRESENT: conjunctiva pink, EOMI, PERRLA. ABSENT: scleral icterus Ear exam: PRESENT: normal external ear exam Mouth exam: PRESENT: moist, tongue midline Neck exam: PRESENT: full ROM. ABSENT: carotid bruit, JVD, lymphadenopathy, thyromegaly Respiratory exam: PRESENT: clear to auscultation martínez Cardiovascular exam: PRESENT: RRR. ABSENT: diastolic murmur, rubs, systolic murmur Vascular exam: PRESENT: normal capillary refill GI/Abdominal exam: PRESENT: normal bowel sounds, soft. ABSENT: distended, guarding, mass, organolmegaly, rebound, tenderness Rectal exam: PRESENT: deferred Musculoskeletal exam: PRESENT: ambulatory Neurological exam: PRESENT: alert, awake, oriented to person, oriented to place, oriented to time, oriented to situation, CN II-XII grossly intact. ABSENT: motor sensory deficit Psychiatric exam: PRESENT: appropriate affect, normal mood. ABSENT: homicidal ideation, suicidal ideation Skin exam: PRESENT: dry, intact, warm. ABSENT: cyanosis, rash Results Laboratory Results: 11/08/18 05:27 11/04/18 07:35 Impressions: Abdomen/Pelvis CT 10/30/18 00:00 IMPRESSION: No acute findings. Chest X-Ray 10/30/18 13:16 IMPRESSION: NO ACUTE RADIOGRAPHIC FINDING IN THE CHEST. Venous Doppler Study 10/31/18 00:00 IMPRESSION: Occlusive deep venous thrombus within the left axillary vein; a catheter is visualized within the vessel. Preliminary results reported to Dr. Hilliard by benzol operator at the time of examination. Assessment & Plan - Diagnosis (1) Deep vein thrombosis of axillary vein of left upper extremity Qualifiers: Chronicity: acute Qualified Code(s): I82.A12 - Acute embolism and thrombosis of left axillary vein Is this a current diagnosis for this admission?: Yes (2) Gastroparesis Is this a current diagnosis for this admission?: Yes (3) Intractable vomiting with nausea Qualifiers: Vomiting type: unspecified Qualified Code(s): R11.2 - Nausea with vomiting, unspecified Is this a current diagnosis for this admission?: Yes (4) Anemia Qualifiers: Anemia type: iron deficiency Iron deficiency anemia type: unspecified iron deficiency Qualified Code(s): D50.9 - Iron deficiency anemia, unspecified Is this a current diagnosis for this admission?: Yes - Time Time Spent with patient: 15-24 minutes Medications reviewed and adjusted accordingly: Yes Anticipated discharge: Home Within: Other - Plan Summary Plan Summary: Continues to current medications No new complaints
[2018-11-11] MEDS: PHARMACY COMMUNICATION ORDER MC SCH ×2 (00:03→23:04)
[2018-11-11] MEDS: OXYCODONE-ACETAMINOPHEN 5-325 MG TABLET PO PRN ×4 (02:30→23:03)
[2018-11-11] MEDS: OXYCODONE HCL IR 5 MG TABLET PO PRN ×4 (02:30→23:03)
[2018-11-11] MEDS: ONDANSETRON 4 MG TAB.RAPDIS PO PRN ×4 (02:30→23:03)
[2018-11-11] MEDS: LEVOTHYROXINE SODIUM 0.1 MG TABLET PO SCH (05:24)
[2018-11-11] MEDS: GABAPENTIN 300 MG CAPSULE PO SCH ×3 (05:24→23:03)
[2018-11-11 06:22] LABS: HEMATOCRIT 31.5 % (36.0-47.0); HEMOGLOBIN 10.5 g/dL (12.0-15.5); MEAN CORPUSCULAR HEMOGLOBIN 25.4 pg (27.0-33.4); MEAN CORPUSCULAR HGB CONC 33.2 g/dL (32.0-36.0); MEAN CORPUSCULAR VOLUME 76 fl (80-97); PLATELET COUNT 250 10^3/uL (150-450); RED BLOOD COUNT 4.12 10^6/uL (3.72-5.28); RED CELL DISTRIBUTION WIDTH 16.8 % (11.5-14.0); WHITE BLOOD COUNT 5.8 10^3/uL (4.0-10.5)
[2018-11-11 06:35] LABS: ANION GAP 7 (5-19); BLOOD UREA NITROGEN 11 mg/dL (7-20); CALCIUM 9.3 mg/dL (8.4-10.2); CARBON DIOXIDE 30 mmol/L (22-30); CHLORIDE 100 mmol/L (98-107); GLUCOSE 111 mg/dL (75-110); POTASSIUM 4.5 mmol/L (3.6-5.0); SODIUM 136.7 mmol/L (137-145)
[2018-11-11] MEDS: SUCRALFATE 1 GM TABLET PO SCH ×4 (07:48→23:04)
[2018-11-11] MEDS: LIDOCAINE 5% (700 MG) TRANSDERMAL ADH..PATCH TP SCH (09:13)
[2018-11-11] MEDS: SERTRALINE HCL 50 MG TABLET PO SCH (09:14)
[2018-11-11] MEDS: ENOXAPARIN SODIUM INJ 100 MG/1 ML DISP.SYRIN SUBCUT SCH ×2 (09:14→23:04)
--- NOTE | 2018-11-11 19:42 | PDOC DISCHARGE SUMMARY ---
General - Admit/Disc Date/PCP Admission Date/Primary Care Provider: 10/30/18 13:40 IAN MUÑOZ MD Discharge Date: 11/11/18 - Discharge Diagnosis (1) Intractable vomiting with nausea Is this a current diagnosis for this admission?: Yes (2) Gastroparesis Is this a current diagnosis for this admission?: Yes (3) Deep vein thrombosis of axillary vein of left upper extremity Is this a current diagnosis for this admission?: Yes - Additional Information Resuscitation Status: Full Code Prescriptions: Enoxaparin Sodium [Lovenox Inj 100 mg/1 ml Disp.syrin] 85 mg SUBCUT Q12 #60 disp.syrin Home Medications: Hydrocodone Bitartrate [Zohydro ER] 40 mg PO Q12 07/08/18 Levothyroxine Sodium [Synthroid] 100 mcg PO Q6AM 07/08/18 Pantoprazole Sodium [Protonix] 40 mg PO BID 07/08/18 Sertraline HCl [Zoloft 50 mg Tablet] 100 mg PO DAILY 07/08/18 Sucralfate [Carafate 1 gm Tablet] 1 gm PO QID 07/08/18 Bethanechol Chloride [Urecholine 10 mg Tablet] 10 mg PO Q8 08/19/18 Gabapentin [Neurontin] 600 mg PO Q8 08/19/18 Lidocaine [Lidoderm 5% (700 mg) Transdermal Patch] 1 patch TP DAILY 08/19/18 Oxycodone HCl/Acetaminophen [Percocet 10-325 mg Tablet] 1 each PO Q6HP PRN 08/19/18 Cyanocobalamin (Vitamin B-12) [Vitamin B-12 Inj 1000 Mcg/1 ml Vial] 1,000 mcg IM .MONTHLY 09/16/18 Montelukast Sodium [Singulair 10 mg Tablet] 10 mg PO QHS 09/16/18 Cyclobenzaprine HCl [Flexeril 10 mg Tablet] 10 mg PO Q8HP PRN 10/04/18 Zaleplon [Sonata] 10 mg PO HSP PRN 10/04/18 Enoxaparin Sodium [Lovenox Inj 100 mg/1 ml Disp.syrin] 85 mg SUBCUT Q12 #60 disp.syrin 11/11/18 History of Present Illness History of Present Illness: VALENTE Hassan RANDALLFELISHA is a 63 year old female, she came to the office for evaluation of vomiting, she has a history of multiple hospitalization for similar complaints, I have exhausted all therapeutic options available to me for this patient's I suggest may be a temporary jejunostomy may be beneficial because she stated she cannot keep food down, my concern is she is going to be depleted of nutrients that she needed for survival, CT scan of the abdomen and pelvis with contrast was obtained, this was negative for any pathology, consultation from the surgeon will be obtained for placement of jejunostomy tube Hospital Course Hospital Course: Patient was admitted for the management of persistent vomiting, the plan initially was to obtain jejunostomy tube, she was evaluated by the surgeon with the intent to pursue this procedure but patient ultimately declined the procedure. The hospital course was complicated with deep vein thrombosis of the left upper extremities, the provocative factor was the Port-A-Cath was inserted in the left upper extremities there was no evidence of infection of the device. patient complained of vomiting but no nursing staff noticed any vomiting ,she ultimately was transitioned to p.o. food and medication, it seems that patient tolerate food and medication orally without any problem Physical Exam Vital Signs: Temp Pulse Resp BP Pulse Ox 98.0 F 69 16 138/67 H 98 11/11/18 15:21 11/11/18 15:21 11/11/18 15:21 11/11/18 15:21 11/11/18 15:21 Intake & Output 11/10/18 11/11/18 11/12/18 06:59 06:59 06:59 Intake Total 1623 1250 1040 Output Total 1575 1700 3 Balance 48 -450 1037 Weight 89.5 kg 89.1 kg General appearance: PRESENT: no acute distress Eye exam: PRESENT: PERRLA Respiratory exam: PRESENT: clear to auscultation martínez Cardiovascular exam: PRESENT: +S1, +S2 GI/Abdominal exam: PRESENT: soft Extremities exam: PRESENT: full ROM Neurological exam: PRESENT: alert, CN II-XII grossly intact Results Laboratory Results: 11/11/18 06:00 11/11/18 06:00 11/11/18 11/11/18 06:00 06:00 WBC 5.8 RBC 4.12 Hgb 10.5 L Hct 31.5 L MCV 76 L MCH 25.4 L MCHC 33.2 RDW 16.8 H Plt Count 250 Sodium 136.7 L Potassium 4.5 Chloride 100 Carbon Dioxide 30 Anion Gap 7 BUN 11 Creatinine 1.11 Est GFR ( Amer) > 60 Est GFR (Non-Af Amer) 49 L Glucose 111 H Calcium 9.3 Impressions: Abdomen/Pelvis CT 10/30/18 00:00 IMPRESSION: No acute findings. Chest X-Ray 10/30/18 13:16 IMPRESSION: NO ACUTE RADIOGRAPHIC FINDING IN THE CHEST. Venous Doppler Study 10/31/18 00:00 IMPRESSION: Occlusive deep venous thrombus within the left axillary vein; a catheter is visualized within the vessel. Preliminary results reported to Dr. Muñoz by drophammer operator at the time of examination. Qualifiers - * PATIENT BEING DISCHARGED WITH ANY OF THE FOLLOWING DIAGNOSIS: No
[2018-11-12] MEDS: OXYCODONE HCL IR 5 MG TABLET PO PRN ×2 (05:03→11:19)
[2018-11-12] MEDS: OXYCODONE-ACETAMINOPHEN 5-325 MG TABLET PO PRN ×2 (05:03→11:19)
[2018-11-12] MEDS: LEVOTHYROXINE SODIUM 0.1 MG TABLET PO SCH (05:19)
[2018-11-12] MEDS: GABAPENTIN 300 MG CAPSULE PO SCH (05:20)
[2018-11-12 06:50] LABS: ANION GAP 8 (5-19); BLOOD UREA NITROGEN 13 mg/dL (7-20); CALCIUM 9.1 mg/dL (8.4-10.2); CARBON DIOXIDE 28 mmol/L (22-30); CHLORIDE 100 mmol/L (98-107); GLUCOSE 96 mg/dL (75-110); POTASSIUM 4.6 mmol/L (3.6-5.0); SODIUM 135.9 mmol/L (137-145)
[2018-11-12] MEDS: SUCRALFATE 1 GM TABLET PO SCH ×2 (09:14→11:19)
[2018-11-12] MEDS: SERTRALINE HCL 50 MG TABLET PO SCH (09:14)
[2018-11-12] MEDS: ENOXAPARIN SODIUM INJ 100 MG/1 ML DISP.SYRIN SUBCUT SCH (09:14)
[2018-11-12] MEDS: LIDOCAINE 5% (700 MG) TRANSDERMAL ADH..PATCH TP SCH (09:14)
[2018-11-12] MEDS: ONDANSETRON 4 MG TAB.RAPDIS PO PRN (11:19)
[2018-11-12 11:55] VITALS: BP 152/81
== END 2018-11-12 11:45 | disposition home health service (06) | DRG 392 ==
LOC: ER 12:04 → EH 13:40 → 4W 21:30
PROVIDERS: ADMIT Internal Medicine; ATTEND Internal Medicine
DX: K31.84 Gastroparesis (principal); T82.868A Thrombosis due to vascular prosthetic devices, implants and grafts, initial encounter; I25.10 Atherosclerotic heart disease of native coronary artery without angina pectoris; E78.5 Hyperlipidemia, unspecified; I11.0 Hypertensive heart disease with heart failure; I50.9 Heart failure, unspecified; J44.9 Chronic obstructive pulmonary disease, unspecified; E03.9 Hypothyroidism, unspecified; K21.9 Gastro-esophageal reflux disease without esophagitis; F32.9 Major depressive disorder, single episode, unspecified; M32.9 Systemic lupus erythematosus, unspecified; K59.01 Slow transit constipation; Y84.8 Other medical procedures as the cause of abnormal reaction of the patient, or of later complication, without mention of misadventure at the time of the procedure; D50.9 Iron deficiency anemia, unspecified; I25.2 Old myocardial infarction; Z90.49 Acquired absence of other specified parts of digestive tract; Z79.899 Other long term (current) drug therapy; Z79.890 Hormone replacement therapy; Z85.41 Personal history of malignant neoplasm of cervix uteri; Z85.43 Personal history of malignant neoplasm of ovary; Z95.5 Presence of coronary angioplasty implant and graft; Z90.710 Acquired absence of both cervix and uterus; Z96.653 Presence of artificial knee joint, bilateral; Z96.649 Presence of unspecified artificial hip joint; Z82.61 Family history of arthritis; Z83.6 Family history of other diseases of the respiratory system; Z80.9 Family history of malignant neoplasm, unspecified; Z82.49 Family history of ischemic heart disease and other diseases of the circulatory system; Z88.0 Allergy status to penicillin; Z88.8 Allergy status to other drugs, medicaments and biological substances; Z88.6 Allergy status to analgesic agent; Z88.3 Allergy status to other anti-infective agents; Z91.030 Bee allergy status; Z87.891 Personal history of nicotine dependence
CPT/HCPCS: 36415; 71046; 74177; 80048; 80053; 81001; 83690; 85025; 85027; 87040; 87086; 93971; 99283; J1650; J2270; J2405; J3420; J3480; J3490; J7030; S0119

== ENCOUNTER → 2019-02-10 | Outpatient (CLI) | payer MEDICARE, OTHER ==
--- NOTE | 2019-02-11 10:24 | XCELERA REPORT ---
[address] [address] Upper Extremity Venous Evaluation Name: VALENTE MUNOZ Age: 63 yrs Gender: Female : 1955 Patient Status: Outpatient Patient Location: Study Date: 02/10/2019 01:06 PM Procedure: Unilateral duplex scan of the left upper extremity veins was performed, including responses to compression and other maneuvers. Reason For Study: LUE PAIN Ordering Physician: IAN MUÑOZ Performed By: Jazz Aponte Left Sided Venous Evaluation Normal vessel filling wall to wall, compression and augmentation as well as Colour flow down to the forearm veins. Interpretation Summary No duplex evidence of DVT or obstruction in the left upper extremity. : IAN MUÑOZ > Rik Prater
== END ==
LOC: SP 12:11
PROVIDERS: ATTEND Internal Medicine
DX: I82.A12 Acute embolism and thrombosis of left axillary vein (principal)
CPT/HCPCS: 93971

== ENCOUNTER 2019-04-18 23:10 | Emergency (ER) | payer MEDICARE, OTHER ==
[2019-04-18 23:20] VITALS: BP 149/67
[2019-04-19] MEDS ORDERED: CEPHALEXIN 500 MG CAPSULE PO ONE (00:32)
[2019-04-19] MEDS ORDERED: SULFAMETHOXAZOLE/TRIMETHOPRIM 800-160 MG TABLET PO ONE (00:32)
[2019-04-19] MEDS ORDERED: MUPIROCIN 2% OINTMENT 22 GM TP ONE (00:32)
--- NOTE | 2019-04-19 00:38 | ER Document Report ---
HPI - HPI Patient complains to provider of: insect bite Time Seen by Provider: 04/19/19 00:17 Onset/Duration: Worse Quality of pain: Burning Pain Level: 4 Context: Patient states she got bit by an insect to the right cheek 5 days ago. Patient states that the area has been pruritic and she has been scratching it. 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 Patient states today she noticed the area was swollen and had become red. Patient denies any fever. Patient states that she is concerned she may have cellulitis as she has had this in the past and does have a history of MRSA. Associated Symptoms: Other - Facial insect bite with surrounding erythema. denies: Fever Exacerbated by: Denies Relieved by: Denies Similar symptoms previously: Yes Recently seen / treated by doctor: No - ROS ROS below otherwise negative: Yes Systems Reviewed and Negative: Yes All other systems reviewed and negative - CONSTITUTIONAL Constitutional: DENIES: Fever, Chills - EENT EENT: DENIES: Sore Throat, Congestion - RESPIRATORY Respiratory: DENIES: Trouble Breathing, Coughing - GASTROINTESTINAL Gastrointestinal: DENIES: Nausea, Patient vomiting - DERM Skin Color: Erythema Notes: Insect bite to right cheek Past Medical History - General Information source: Patient, Relative - Social History Smoking Status: Never Smoker Lives with: Family Family History: Arthritis, COPD, Hyperlipidemia, Hypertension, Malignancy, Thyroid Disfunction - Past Medical History Cardiac Medical History: Reports: Hx Congestive Heart Failure, Hx Coronary Artery Disease, Hx DVT, Hx Heart Attack, Hx Hypercholesterolemia, Hx Hypertension, Hx Pulmonary Embolism Denies: Hx Atrial Fibrillation, Hx Peripheral Vascular Disease, Hx Heart Murmur Pulmonary Medical History: Reports: Hx Bronchitis, Hx COPD Neurological Medical History: Denies: Hx Cerebrovascular Accident, Hx Seizures Endocrine Medical History: Reports: Hx Hypothyroidism. Denies: Hx Hyperthyroidism Renal/ Medical History: Reports: Hx Ovarian Cysts Malignancy Medical History: Reports: Hx Cervical Cancer, Hx Ovarian Cancer GI Medical History: Reports: Hx Gastroesophageal Reflux Disease, Hx Hiatal Hernia - Repaired, Hx Irritable Bowel, Hx Colonoscopy, Hx Endoscopy Musculoskeletal Medical History: Reports Hx Arthritis - Lupus, Reports Hx Fibromyalgia - Lupus, Reports Hx Musculoskeletal Deformity, Reports Hx Musculoskeletal Trauma, Reports Hx Systemic Lupus Erythematosus Skin Medical History: Reports Hx Cellulitis - Recently treated, right breast Psychiatric Medical History: Reports: Hx Anxiety, Hx Depression Traumatic Medical History: Reports: Hx Fractures - Knee and hip Infectious Medical History: Reports: Hx C-Diff - Was negative in October2015. Not yet successfully collected stool, Hx MRSA, Hx VRE Past Surgical History: Reports: Hx Appendectomy, Hx Bowel Surgery - Polyps, adhesions, Hx Cardiac Catheterization, Hx Cardiac Surgery - 2 stents 2014, Hx Section, Hx Cholecystectomy, Hx Coronary Stent - 3 stents, Hx Genitourinary Surgery - bladder sling, Hx Herniorrhaphy, Hx Hysterectomy, Hx Orthopedic Surgery - Right knee, bilateral knee replacements and hip replacement metal plate in, Hx Tonsillectomy - Immunizations Immunizations up to date: Yes Hx Pneumococcal Vaccination: 05/20/11 Vertical Provider Document - CONSTITUTIONAL Agree With Documented VS: Yes Exam Limitations: No Limitations General Appearance: WD/WN, No Apparent Distress Notes: Patient frequently scratching at right cheek - INFECTION CONTROL TRAVEL OUTSIDE OF THE [place] IN LAST 30 DAYS: No - HEENT HEENT: Atraumatic, Normocephalic Notes: Erythema surrounding excoriated skin lesion to right cheek - NECK Neck: Normal Inspection, Supple. negative: Lymphadenopathy-Left, Lymphadenopathy-Right Notes: No submental or sublingual swelling - RESPIRATORY Respiratory: Breath Sounds Normal, No Respiratory Distress - CARDIOVASCULAR Cardiovascular: Regular Rate, Regular Rhythm - MUSCULOSKELETAL/EXTREMETIES Musculoskeletal/Extremeties: MAEW - NEURO Level of Consciousness: Awake, Alert, Appropriate Motor/Sensory: No Motor Deficit - DERM Integumentary: Warm, Dry. negative: Abscess Notes: Patient with excoriated skin lesion to right cheek with surrounding erythema. No induration, no fluctuance, no concern for abscess Course - Re-evaluation Re-evalutation: 04/19/19 00:34 Patient with excoriated insect bite with surrounding erythema worrisome for cellulitis. Patient does report a history of MRSA in the past and states that she frequently has to get placed on Keflex and Bactrim. Patient without any previous history of any renal insufficiency. Patient with stable vital signs and no fever. Patient reports erythema only started today. Patient agreeable with starting antibiotics to treat cellulitis. Discussed worsening symptoms that patient should return immediately for. Patient and family verbalized understanding and agree with this plan of care. - Vital Signs Vital signs: Temp Pulse Resp BP Pulse Ox 98.8 F 78 16 149/67 H 95 04/18/19 23:16 04/18/19 23:16 04/18/19 23:16 04/18/19 23:16 04/18/19 23:16 Discharge - Discharge Clinical Impression: Facial cellulitis, Skin picking habit Insect bite Qualifiers: Encounter type: initial encounter Site of insect bite: head Site of insect bite of head: unspecified part Qualified Code(s): S00.96XA - Insect bite (nonvenomous) of unspecified part of head, initial encounter Condition: Stable Disposition: HOME, SELF-CARE Instructions: Bactroban Ointment ([facility]), Cellulitis ([facility]), Cephalexin ([facility]), Insect Bites ([facility]), Trimethoprim-Sulfa ([facility]) Additional Instructions: Return immediately for any new or worsening symptoms: Fever, increased swelling, increased redness, lack of improvement or any concerning symptoms Followup with your primary care provider, call tomorrow to make a followup appointment Avoid picking at the skin Prescriptions: Cephalexin Monohydrate [Keflex 500 mg Capsule] 500 mg PO Q6H 5 Days capsule Sulfamethoxazole/Trimethoprim [Bactrim Ds Tablet] 1 each PO BID #20 tablet Referrals: IAN MUÑOZ MD [Primary Care Provider] - 04/21/19
== END 2019-04-19 01:27 | disposition home or self-care (01) ==
LOC: ER 23:10
DX: S00.86XA Insect bite (nonvenomous) of other part of head, initial encounter (principal); L03.211 Cellulitis of face; W57.XXXA Bitten or stung by nonvenomous insect and other nonvenomous arthropods, initial encounter; Z86.14 Personal history of Methicillin resistant Staphylococcus aureus infection
CPT/HCPCS: A9270 ×3; 99283; J3490

== ENCOUNTER 2019-06-06 14:58 | Inpatient (IN) | payer MEDICARE, OTHER ==
[2019-06-06 16:09] LABS: ABSOLUTE LYMPHOCYTES (AUTO) 1.5 10^3/uL (0.5-4.7); ABSOLUTE MONOCYTES (AUTO) 0.5 10^3/uL (0.1-1.4); ABSOLUTE NEUT (AUTO) 6.6 10^3/uL (1.7-8.2); BASOPHILS % (AUTO) 0.3 % (0-2); EOSINOPHILS % (AUTO) 0.4 % (0-6); HEMATOCRIT 39.8 % (36.0-47.0); HEMOGLOBIN 13.2 g/dL (12.0-15.5); MEAN CORPUSCULAR HEMOGLOBIN 24.6 pg (27.0-33.4); MEAN CORPUSCULAR VOLUME 75 fl (80-97); PLATELET COUNT 356 10^3/uL (150-450); RED BLOOD COUNT 5.35 10^6/uL (3.72-5.28); RED CELL DISTRIBUTION WIDTH 15.4 % (11.5-14.0); SEGMENTED NEUTROPHILS % (AUTO) 76.3 % (42-78); TOTAL CELLS COUNTED % (AUTO) 100 %; WHITE BLOOD COUNT 8.6 10^3/uL (4.0-10.5)
[2019-06-06 16:26] LABS: ALBUMIN 4.1 g/dL (3.5-5.0); ALKALINE PHOSPHATASE 123 U/L (38-126); ANION GAP 13 (5-19); ASPARTATE AMINO TRANSFERASE 19 U/L (14-36); BILIRUBIN,DIRECT 0.1 mg/dL (0.0-0.4); BILIRUBIN,TOTAL 0.5 mg/dL (0.2-1.3); BLOOD UREA NITROGEN 18 mg/dL (7-20); CALCIUM 9.7 mg/dL (8.4-10.2); CARBON DIOXIDE 21 mmol/L (22-30); CHLORIDE 100 mmol/L (98-107); GLUCOSE 113 mg/dL (75-110); POTASSIUM 4.2 mmol/L (3.6-5.0)
--- NOTE | 2019-06-06 16:38 | RADIOLOGY REPORT (SQ) ---
EXAM DESCRIPTION: KUB/ABDOMEN (SINGLE VIEW) COMPLETED DATE/TIME: 06/06/2019 4:22 pm REASON FOR STUDY: persistent diarrhea COMPARISON: CT abdomen pelvis 2292 Abdominal films 10/21/2018, 09/16/2018 NUMBER OF VIEWS: One view. TECHNIQUE: Supine radiographic image of the abdomen acquired. LIMITATIONS: None. FINDINGS: BOWEL GAS PATTERN: Normal bowel gas pattern. No dilated loops. CALCIFICATIONS: Curvilinear calcification along the bladder base likely post bladder 3. This correla anam with findings on prior CT 10/30/2018. No ectopic calcifications worrisome for urinary stones SOFT TISSUES: No gross mass or suggestion of organomegaly. HARDWARE: Lower lumbar fusion hardware. Right hip replacement. Low anterior abdominal wall radiopaq ue sutures. Neurostimulator with battery pack over the right gluteal region. Clips post cholecystec bertha right upper quadrant BONES: No acute fracture. No worrisome bone lesions. OTHER: No other significant finding. IMPRESSION: NO RADIOGRAPHIC EVIDENCE FOR ACUTE ABDOMINAL DISEASE. TECHNICAL DOCUMENTATION: JOB ID: [id number] [employer]- All Rights Reserved Reading location - IP/workstation name: [email or web address]
[2019-06-06 16:40] LABS: FREE T4 (FREE THYROXINE) 1.06 ng/dL (0.78-2.19)
[2019-06-06 16:54] LABS: THYROID STIMULATING HORMONE 1.82 uIU/mL (0.47-4.68)
[2019-06-06] MEDS: PROMETHAZINE HCL INJ 25 MG/1 ML VIAL IV PRN (18:25)
[2019-06-06] MEDS: HYDROMORPHONE HCL INJ/PF 2 MG/ML AMPULE IV PRN (18:25)
[2019-06-06] MEDS: DEXTROSE 5%-NORMAL SALINE 1,000 ML IV PRN (19:00)
[2019-06-06 20:59] LABS: APPEARANCE,URINE CLEAR; BILIRUBIN,URINE NEGATIVE (NEGATIVE); COLOR,URINE YELLOW; GLUCOSE, URINE NEGATIVE (NEGATIVE); KETONES,URINE NEGATIVE (NEGATIVE); LEUKOCYTE ESTERASE,URINE NEGATIVE (NEGATIVE); NITRITE,URINE NEGATIVE (NEGATIVE); PROTEIN,URINE NEGATIVE (NEGATIVE); URINE SPECIFIC GRAVITY 1.011; UROBILINOGEN,URINE NEGATIVE mg/dL (<2.0)
--- NOTE | 2019-06-06 22:12 | PDOC H&P ---
History of Present Illness Admission Date/PCP: 06/06/19 14:58 IAN MUÑOZ MD History of Present Illness: VALENTE MUNOZ is a 63 year old female,Patient is well-known to me, she has a history of systemic lupus erythematosus, SLE, gastroparesis, history of coronary artery disease, hip arthropathy status post hip replacement, history of recurrent UTI partly due to bladder atony/dystony. She presented to the office for evaluation of persistent, intractable vomiting, diarrhea. She has had these problems previously, she was particularly concerned about dehydration, she stated that she is not able to keep any food down. She was admitted directly from the office into the hospital for evaluation Past Medical History Cardiac Medical History: Reports: Congestive Heart Failure, Coronary Artery Disease, DVT, Myocardial Infarction, Hyperlipidema, Hypertension, Pulmonary Embolism Pulmonary Medical History: Reports: Bronchitis, Chronic Obstructive Pulmonary Disease (COPD) Endocrine Medical History: Reports: Hypothyroidism Malignancy Medical History: Reports: Cervical Cancer, Ovarian Cancer GI Medical History: Reports: Gastroesophageal Reflux Disease, Hiatal Hernia - Repaired Musculoskeltal Medical History: Reports: Arthritis - Lupus, Fibromyalgia - Lupus Psychiatric Medical History: Reports: Depression Hematology: Reports: Anemia - HX OF LOW NA AND K,LOW IRON WILL HAVE IRON TRANS FUSION 05/04. Infectious Medical History: Reports: Clostridium Difficile - Was negative in October2015. Not yet successfully collected stool, Methicillin-Resistant Staph Aureus, Vancomycin-Resistant Enterococci Denies: HIV Past Surgical History Past Surgical History: Reports: Appendectomy, Cardiac Catheterization, Section, Cholecystectomy, Coronary Stent - 3 stents, Herniorrhaphy, Hysterectomy, Orthopedic Surgery - Right knee, bilateral knee replacements and hip replacement metal plate in, Tonsillectomy Social History Smoking Status: Former Smoker Frequency of Alcohol Use: None Hx Recreational Drug Use: No Drugs: None Hx Prescription Drug Abuse: No Family History Family History: Arthritis, COPD, Hyperlipidemia, Hypertension, Malignancy, Thyroid Disfunction Parental Family History Reviewed: Yes Children Family History Reviewed: Yes Sibling(s) Family History Reviewed.: Yes Medication/Allergy Home Medications: Hydrocodone Bitartrate [Zohydro ER] 40 mg PO Q12 07/08/18 Levothyroxine Sodium [Synthroid] 100 mcg PO Q6AM 07/08/18 Pantoprazole Sodium [Protonix] 40 mg PO BID 10/29/18 Sertraline HCl [Zoloft 50 mg Tablet] 100 mg PO DAILY 07/08/18 Sucralfate [Carafate 1 gm Tablet] 1 gm PO QID 07/08/18 Bethanechol Chloride [Urecholine 10 mg Tablet] 10 mg PO Q8 08/19/18 Gabapentin [Neurontin] 600 mg PO Q8 08/19/18 Lidocaine [Lidoderm 5% (700 mg) Transdermal Patch] 1 patch TP DAILY 08/19/18 Oxycodone HCl/Acetaminophen [Percocet 10-325 mg Tablet] 1 each PO Q6HP PRN 08/19/18 Cyanocobalamin (Vitamin B-12) [Vitamin B-12 Inj 1000 Mcg/1 ml Vial] 1,000 mcg IM .MONTHLY 09/16/18 Montelukast Sodium [Singulair 10 mg Tablet] 10 mg PO QHS 09/16/18 Cyclobenzaprine HCl [Flexeril 10 mg Tablet] 10 mg PO Q8HP PRN 10/04/18 Zaleplon [Sonata] 10 mg PO HSP PRN 10/04/18 Clopidogrel Bisulfate [Plavix 75 mg Tablet] 75 mg PO DAILY 06/07/19 Allergies/Adverse Reactions: irbesartan [From Avapro] Allergy (Severe, Verified 04/19/19 01:21) swelling of face nitrofurantoin macrocrystalline [From Macrobid] Allergy (Severe, Verified 04/19/19 01:21) Generalized edema Penicillins Allergy (Severe, Verified 04/19/19 01:21) eyes swelled pregabalin [From Lyrica] Allergy (Severe, Verified 04/19/19 01:21) Equilibrium Issues venom-honey bee [bee venom (honey bee)] Allergy (Verified 04/19/19 01:21) Anaphylaxis Review of Systems Constitutional: ABSENT: chills, fever(s), headache(s), weight gain, weight loss Eyes: ABSENT: visual disturbances Ears: ABSENT: hearing changes Cardiovascular: ABSENT: chest pain, dyspnea on exertion, edema, orthropnea, palpitations Respiratory: ABSENT: cough, hemoptysis Gastrointestinal: PRESENT: abdominal pain, diarrhea, vomiting Genitourinary: ABSENT: dysuria, hematuria Musculoskeletal: ABSENT: joint swelling Integumentary: ABSENT: rash, wounds Neurological: ABSENT: abnormal gait, abnormal speech, confusion, dizziness, focal weakness, syncope Psychiatric: ABSENT: anxiety, depression, homidical ideation, suicidal ideation Endocrine: ABSENT: cold intolerance, heat intolerance, menstrual abnormalities, polydipsia, polyuria Hematologic/Lymphatic: ABSENT: easy bleeding, easy bruising, lymphadenopathy Physical Exam Vital Signs: Temp Pulse Resp BP Pulse Ox 98.3 F 84 17 142/77 H 94 06/06/19 19:41 06/06/19 19:41 06/06/19 19:41 06/06/19 19:41 06/06/19 19:41 Intake & Output 06/05/19 06/06/19 06/07/19 06:59 06:59 06:59 Weight 89.811 kg General appearance: PRESENT: no acute distress, well-developed, well-nourished Head exam: PRESENT: atraumatic, normocephalic Eye exam: PRESENT: conjunctiva pink, EOMI, PERRLA Ear exam: PRESENT: normal external ear exam Mouth exam: PRESENT: moist, tongue midline Neck exam: PRESENT: full ROM Respiratory exam: PRESENT: clear to auscultation martínez Cardiovascular exam: PRESENT: RRR, +S1, +S2 Pulses: PRESENT: normal dorsalis pedis pul, +2 pedal pulses bilateral Vascular exam: PRESENT: normal capillary refill GI/Abdominal exam: PRESENT: normal bowel sounds, soft Rectal exam: PRESENT: deferred Neurological exam: PRESENT: alert, awake, oriented to person, oriented to place, oriented to time, oriented to situation, CN II-XII grossly intact Psychiatric exam: PRESENT: appropriate affect, normal mood Skin exam: PRESENT: dry, intact, warm. ABSENT: cyanosis, rash Results Laboratory Results: 06/06/19 15:44 06/06/19 15:44 06/06/19 06/06/19 06/06/19 15:44 15:44 15:44 WBC 8.6 RBC 5.35 H Hgb 13.2 Hct 39.8 MCV 75 L MCH 24.6 L MCHC 33.0 RDW 15.4 H Plt Count 356 Seg Neutrophils % 76.3 Sodium 134.1 L Potassium 4.2 Chloride 100 Carbon Dioxide 21 L Anion Gap 13 BUN 18 Creatinine 0.94 Est GFR ( Amer) > 60 Glucose 113 H Calcium 9.7 Total Bilirubin 0.5 AST 19 Alkaline Phosphatase 123 Total Protein 7.0 Albumin 4.1 TSH 1.82 Free T4 1.06 Urine Color Urine Appearance Urine pH Ur Specific [place] Urine Protein Urine Glucose (UA) Urine Ketones Urine Blood Urine Nitrite Ur Leukocyte Esterase Urine WBC (Auto) Urine RBC (Auto) 06/06/19 20:09 WBC RBC Hgb Hct MCV MCH MCHC RDW Plt Count Seg Neutrophils % Sodium Potassium Chloride Carbon Dioxide Anion Gap BUN Creatinine Est GFR ( Amer) Glucose Calcium Total Bilirubin AST Alkaline Phosphatase Total Protein Albumin TSH Free T4 Urine Color YELLOW Urine Appearance CLEAR Urine pH 6.0 Ur Specific [place] 1.011 Urine Protein NEGATIVE Urine Glucose (UA) NEGATIVE Urine Ketones NEGATIVE Urine Blood SMALL H Urine Nitrite NEGATIVE Ur Leukocyte Esterase NEGATIVE Urine WBC (Auto) 0 Urine RBC (Auto) 1 Impressions: KUB X-Ray 06/06/19 00:00 IMPRESSION: NO RADIOGRAPHIC EVIDENCE FOR ACUTE ABDOMINAL DISEASE. Assessment & Plan - Diagnosis (1) Acute gastroenteritis Is this a current diagnosis for this admission?: Yes Plan: Patient is admitted for management.The etiology of the gastroenteritis is not cl ear, it could be infectious versus noninfectious, more importantly the goal at this time is to prevent dehydration especially because the symptoms has been ongoing for the last 3 to 5 days, she resisted coming for evaluation because she does not want to be admitted to the hospital, as I indicated she has had this problem multiple times in the past but recently she has not had any episode of vomiting and diarrhea until now (2) Coronary artery disease Qualifiers: Coronary Disease-Associated Artery/Lesion type: [place] artery [place] vs. t ransplanted heart: [place] heart Associated angina: without angina Qualified Code(s): I25.10 - Atherosclerotic heart disease of [place] coronary artery without angina pectoris Is this a current diagnosis for this admission?: Yes
[2019-06-07] MEDS: HYDROMORPHONE HCL INJ/PF 2 MG/ML AMPULE IV PRN ×4 (00:59→21:15)
[2019-06-07] MEDS: PROMETHAZINE HCL INJ 25 MG/1 ML VIAL IV PRN ×4 (00:59→21:15)
[2019-06-07] MEDS: DEXTROSE 5%-NORMAL SALINE 1,000 ML IV PRN ×2 (05:38→21:19)
[2019-06-07] MEDS ORDERED: (PENDING PHARMACY ID) (Zaleplon [Sonata] 10 MG) PO PRN (16:16)
[2019-06-07] MEDS ORDERED: (PENDING PHARMACY ID) (Oxycodone Hcl/Acetaminophen [Percocet 10-325 Mg Tablet] 1 EACH) PO PRN (16:16)
--- NOTE | 2019-06-07 16:16 | PDOC PROGRESS REPORT ---
Subjective Progress Note for:: 06/07/19 Subjective:: Patient was admitted For the management of acute gastroenteritis Reason For Visit: INTRACTABLE VOMITING, PERSISTENT DIARRHEA Physical Exam Vital Signs: Temp Pulse Resp BP Pulse Ox 97.8 F 71 16 137/54 H 100 06/07/19 15:44 06/07/19 15:44 06/07/19 15:44 06/07/19 15:44 06/07/19 15:44 Intake & Output 06/06/19 06/07/19 06/08/19 06:59 06:59 06:59 Intake Total 1236 360 Output Total 600 Balance 636 360 Weight 90.1 kg General appearance: PRESENT: no acute distress Eye exam: PRESENT: PERRLA Respiratory exam: PRESENT: clear to auscultation martíenz Cardiovascular exam: PRESENT: +S1, +S2 GI/Abdominal exam: PRESENT: soft Neurological exam: PRESENT: alert, CN II-XII grossly intact Results Laboratory Results: 06/06/19 15:44 06/06/19 15:44 06/06/19 06/06/19 06/06/19 15:44 15:44 20:09 Sodium 134.1 L Potassium 4.2 Chloride 100 Carbon Dioxide 21 L Anion Gap 13 BUN 18 Creatinine 0.94 Est GFR ( Amer) > 60 Glucose 113 H Calcium 9.7 Total Bilirubin 0.5 AST 19 Alkaline Phosphatase 123 Total Protein 7.0 Albumin 4.1 TSH 1.82 Free T4 1.06 Urine Color YELLOW Urine Appearance CLEAR Urine pH 6.0 Ur Specific [place] 1.011 Urine Protein NEGATIVE Urine Glucose (UA) NEGATIVE Urine Ketones NEGATIVE Urine Blood SMALL H Urine Nitrite NEGATIVE Ur Leukocyte Esterase NEGATIVE Urine WBC (Auto) 0 Urine RBC (Auto) 1 Impressions: KUB X-Ray 06/06/19 00:00 IMPRESSION: NO RADIOGRAPHIC EVIDENCE FOR ACUTE ABDOMINAL DISEASE. Assessment & Plan - Diagnosis (1) Acute gastroenteritis Is this a current diagnosis for this admission?: Yes (2) Coronary artery disease Qualifiers: Coronary Disease-Associated Artery/Lesion type: [place] artery [place] vs. transplanted heart: [place] heart Associated angina: without angina Qualified Code(s): I25.10 - Atherosclerotic heart disease of [place] coronary artery without angina pectoris Is this a current diagnosis for this admission?: Yes (3) Dehydration Is this a current diagnosis for this admission?: Yes (4) History of SIADH Is this a current diagnosis for this admission?: Yes
[2019-06-07] MEDS ORDERED: HYDROCODONE BITARTRATE 40 MG PO SCH (16:30)
[2019-06-07] MEDS: SUCRALFATE 1 GM TABLET PO SCH ×2 (17:10→21:15)
[2019-06-07] MEDS: PANTOPRAZOLE SODIUM 40 MG TABLET.DR PO SCH (17:10)
[2019-06-07] MEDS: CLOPIDOGREL BISULFATE 75 MG TABLET PO SCH (17:10)
[2019-06-07] MEDS: GABAPENTIN 300 MG CAPSULE PO SCH ×2 (17:10→21:15)
[2019-06-07] MEDS: LEVOTHYROXINE SODIUM 0.1 MG TABLET PO SCH (17:10)
[2019-06-07] MEDS: LIDOCAINE 5% (700 MG) TRANSDERMAL ADH..PATCH TP SCH (17:11)
[2019-06-07] MEDS: SERTRALINE HCL 50 MG TABLET PO SCH (17:11)
[2019-06-07] MEDS: MONTELUKAST SODIUM 10 MG TABLET PO SCH (21:15)
[2019-06-07] MEDS ORDERED: BETHANECHOL CHLORIDE 10 MG PO SCH (22:00)
[2019-06-08] MEDS: PROMETHAZINE HCL INJ 25 MG/1 ML VIAL IV PRN ×5 (04:08→21:28)
[2019-06-08] MEDS: HYDROMORPHONE HCL INJ/PF 2 MG/ML AMPULE IV PRN ×5 (04:08→21:28)
[2019-06-08] MEDS: LEVOTHYROXINE SODIUM 0.1 MG TABLET PO SCH (05:25)
[2019-06-08] MEDS: GABAPENTIN 300 MG CAPSULE PO SCH ×3 (05:25→21:28)
[2019-06-08] MEDS ORDERED: CYANOCOBALAMIN (VITAMIN B-12) INJ 1000 MCG/1 ML VIAL IM SCH (10:00)
[2019-06-08] MEDS: LIDOCAINE 5% (700 MG) TRANSDERMAL ADH..PATCH TP SCH (10:04)
[2019-06-08] MEDS: SERTRALINE HCL 50 MG TABLET PO SCH (10:05)
[2019-06-08] MEDS: SUCRALFATE 1 GM TABLET PO SCH ×4 (10:05→21:28)
[2019-06-08] MEDS: CLOPIDOGREL BISULFATE 75 MG TABLET PO SCH (10:05)
[2019-06-08] MEDS: PANTOPRAZOLE SODIUM 40 MG TABLET.DR PO SCH ×2 (10:05→17:12)
--- NOTE | 2019-06-08 14:00 | PDOC PROGRESS REPORT ---
Subjective Progress Note for:: 06/08/19 Subjective:: Patient seen by the bedside, she continues to vomit Reason For Visit: INTRACTABLE VOMITING, PERSISTENT DIARRHEA Physical Exam Vital Signs: Temp Pulse Resp BP Pulse Ox 98.8 F 84 16 153/74 H 98 06/08/19 11:58 06/08/19 11:58 06/08/19 11:58 06/08/19 11:58 06/08/19 11:58 Intake & Output 06/07/19 06/08/19 06/09/19 06:59 06:59 06:59 Intake Total 1236 1600 1360 Output Total 600 Balance 636 1600 1360 Weight 90.1 kg 72.2 kg General appearance: PRESENT: no acute distress Eye exam: PRESENT: PERRLA Respiratory exam: PRESENT: clear to auscultation martínez Cardiovascular exam: PRESENT: +S1, +S2 GI/Abdominal exam: PRESENT: soft Neurological exam: PRESENT: alert Results Laboratory Results: 06/06/19 15:44 06/06/19 15:44 Impressions: KUB X-Ray 06/06/19 00:00 IMPRESSION: NO RADIOGRAPHIC EVIDENCE FOR ACUTE ABDOMINAL DISEASE. Assessment & Plan - Diagnosis (1) Acute gastroenteritis Is this a current diagnosis for this admission?: Yes (2) Coronary artery disease Qualifiers: Coronary Disease-Associated Artery/Lesion type: [place] artery [place] vs. transplanted heart: [place] heart Associated angina: without angina Qualified Code(s): I25.10 - Atherosclerotic heart disease of [place] coronary artery without angina pectoris Is this a current diagnosis for this admission?: Yes (3) Dehydration Is this a current diagnosis for this admission?: Yes (4) History of SIADH Is this a current diagnosis for this admission?: Yes
[2019-06-08] MEDS: MONTELUKAST SODIUM 10 MG TABLET PO SCH (21:28)
[2019-06-08] MEDS: DEXTROSE 5%-NORMAL SALINE 1,000 ML IV PRN (21:30)
[2019-06-09] MEDS: PROMETHAZINE HCL INJ 25 MG/1 ML VIAL IV PRN ×5 (01:57→18:44)
[2019-06-09] MEDS: HYDROMORPHONE HCL INJ/PF 2 MG/ML AMPULE IV PRN ×5 (01:57→18:44)
[2019-06-09] MEDS: LEVOTHYROXINE SODIUM 0.1 MG TABLET PO SCH (06:40)
[2019-06-09] MEDS: GABAPENTIN 300 MG CAPSULE PO SCH ×3 (06:40→21:33)
[2019-06-09] MEDS: SUCRALFATE 1 GM TABLET PO SCH ×4 (10:43→21:36)
[2019-06-09] MEDS: CLOPIDOGREL BISULFATE 75 MG TABLET PO SCH (10:43)
[2019-06-09] MEDS: PANTOPRAZOLE SODIUM 40 MG TABLET.DR PO SCH ×2 (10:43→17:25)
[2019-06-09] MEDS: SERTRALINE HCL 50 MG TABLET PO SCH (10:44)
[2019-06-09] MEDS: LIDOCAINE 5% (700 MG) TRANSDERMAL ADH..PATCH TP SCH (10:44)
--- NOTE | 2019-06-09 18:48 | PDOC PROGRESS REPORT ---
Subjective Progress Note for:: 06/09/19 Subjective:: Patient seen by the bedside, IV access is a challenge Reason For Visit: INTRACTABLE VOMITING, PERSISTENT DIARRHEA Physical Exam Vital Signs: Temp Pulse Resp BP Pulse Ox 98.8 F 78 20 106/89 H 95 06/09/19 14:55 06/09/19 14:55 06/09/19 14:55 06/09/19 14:55 06/09/19 14:55 Intake & Output 06/08/19 06/09/19 06/10/19 06:59 06:59 06:59 Intake Total 1600 1480 1360 Balance 1600 1480 1360 Weight 72.2 kg 69.3 kg General appearance: PRESENT: no acute distress Eye exam: PRESENT: PERRLA Respiratory exam: PRESENT: clear to auscultation martínez Cardiovascular exam: PRESENT: +S1, +S2 GI/Abdominal exam: PRESENT: soft Neurological exam: PRESENT: alert Results Laboratory Results: 06/06/19 15:44 06/06/19 15:44 06/06/19 20:09 Clean Catch Midstream Urine Culture - Final Mixed Urogenital Mary Impressions: KUB X-Ray 06/06/19 00:00 IMPRESSION: NO RADIOGRAPHIC EVIDENCE FOR ACUTE ABDOMINAL DISEASE. Assessment & Plan - Diagnosis (1) Acute gastroenteritis Is this a current diagnosis for this admission?: Yes (2) Coronary artery disease Qualifiers: Coronary Disease-Associated Artery/Lesion type: [place] artery [place] vs. transplanted heart: [place] heart Associated angina: without angina Qualified Code(s): I25.10 - Atherosclerotic heart disease of [place] coronary artery without angina pectoris Is this a current diagnosis for this admission?: Yes (3) Dehydration Is this a current diagnosis for this admission?: Yes (4) History of SIADH Is this a current diagnosis for this admission?: Yes
[2019-06-09] MEDS: MONTELUKAST SODIUM 10 MG TABLET PO SCH (21:33)
[2019-06-09] MEDS: OXYCODONE-ACETAMINOPHEN 5-325 MG TABLET PO PRN (21:34)
[2019-06-09] MEDS: PHARMACY COMMUNICATION ORDER MC SCH (21:35)
[2019-06-10] MEDS: PROMETHAZINE HCL INJ 25 MG/1 ML VIAL IV PRN ×3 (00:12→17:18)
[2019-06-10] MEDS: HYDROMORPHONE HCL INJ/PF 2 MG/ML AMPULE IV PRN ×4 (00:14→17:18)
[2019-06-10] MEDS: DEXTROSE 5%-NORMAL SALINE 1,000 ML IV PRN ×2 (00:56→12:51)
[2019-06-10] MEDS: GABAPENTIN 300 MG CAPSULE PO SCH ×3 (05:51→21:32)
[2019-06-10] MEDS: LEVOTHYROXINE SODIUM 0.1 MG TABLET PO SCH (05:51)
[2019-06-10] MEDS: CLOPIDOGREL BISULFATE 75 MG TABLET PO SCH (09:38)
[2019-06-10] MEDS: SERTRALINE HCL 50 MG TABLET PO SCH (09:38)
[2019-06-10] MEDS: PANTOPRAZOLE SODIUM 40 MG TABLET.DR PO SCH ×2 (09:38→17:18)
[2019-06-10] MEDS: LIDOCAINE 5% (700 MG) TRANSDERMAL ADH..PATCH TP SCH (09:38)
[2019-06-10] MEDS: SUCRALFATE 1 GM TABLET PO SCH ×4 (09:38→21:29)
[2019-06-10] MEDS: OXYCODONE-ACETAMINOPHEN 5-325 MG TABLET PO PRN (12:50)
[2019-06-10] MEDS: OXYCODONE HCL IR 5 MG TABLET PO PRN (12:50)
--- NOTE | 2019-06-10 18:56 | PDOC DISCHARGE SUMMARY ---
Impression - Admit/DC Date/PCP Admission Date/Primary Care Provider: 06/06/19 14:58 IAN MUÑOZ MD Discharge Date: 06/10/19 - Discharge Diagnosis (1) Acute gastroenteritis Is this a current diagnosis for this admission?: Yes (2) Coronary artery disease Is this a current diagnosis for this admission?: Yes (3) Dehydration Is this a current diagnosis for this admission?: Yes (4) History of SIADH Is this a current diagnosis for this admission?: Yes (5) Systemic lupus erythematosus Is this a current diagnosis for this admission?: Yes - Additional Information Referrals: IAN MUÑOZ MD [Primary Care Provider] - Home Medications: Hydrocodone Bitartrate [Zohydro ER] 40 mg PO Q12 07/08/18 Levothyroxine Sodium [Synthroid] 100 mcg PO Q6AM 07/08/18 Pantoprazole Sodium [Protonix] 40 mg PO BID 07/08/18 Sertraline HCl [Zoloft 50 mg Tablet] 100 mg PO DAILY 07/08/18 Sucralfate [Carafate 1 gm Tablet] 1 gm PO QID 07/08/18 Bethanechol Chloride [Urecholine 10 mg Tablet] 10 mg PO Q8 08/19/18 Gabapentin [Neurontin] 600 mg PO Q8 08/19/18 Lidocaine [Lidoderm 5% (700 mg) Transdermal Patch] 1 patch TP DAILY 08/19/18 Oxycodone HCl/Acetaminophen [Percocet 10-325 mg Tablet] 1 each PO Q6HP PRN 08/19/18 Cyanocobalamin (Vitamin B-12) [Vitamin B-12 Inj 1000 Mcg/1 ml Vial] 1,000 mcg IM .MONTHLY 09/16/18 Montelukast Sodium [Singulair 10 mg Tablet] 10 mg PO QHS 09/16/18 Cyclobenzaprine HCl [Flexeril 10 mg Tablet] 10 mg PO Q8HP PRN 10/04/18 Zaleplon [Sonata] 10 mg PO HSP PRN 10/04/18 Clopidogrel Bisulfate [Plavix 75 mg Tablet] 75 mg PO DAILY 06/07/19 History of Present Illiness History of Present Illness: VALENTE MUNOZ is a 63 year old female,Patient is well-known to me, she has a history of systemic lupus erythematosus, SLE, gastroparesis, history of coronary artery disease, hip arthropathy status post hip replacement, history of recurrent UTI partly due to bladder atony/dystony. She presented to the office for evaluation of persistent, intractable vomiting, diarrhea. She has had these problems previously, she was particularly concerned about dehydration, she stated that she is not able to keep any food down. She was admitted directly from the office into the hospital for evaluation Hospital Course Hospital Course: Patient was admitted for the management of acute gastroenteritis, dehydration, abdominal pain. She was treated IV fluid for rehydration, pain control was achieved with intravenous Dilaudid. Patient did not produce any stool sample throughout hospital stay, she had vomiting. She has a history of gastroparesis, she was admitted previously when she presented in a similar fashion, in prior admission there is usually associated urinary tract infection, dehydration. On this admission there was no documented UTI, diarrhea. It was felt that patient at this point as optimized inpatient care and needed to be discharged home Physical Exam Vital Signs: Temp Pulse Resp BP Pulse Ox 98.6 F 88 20 138/66 H 92 06/10/19 14:54 06/10/19 14:54 06/10/19 14:54 06/10/19 14:54 06/10/19 14:54 Intake & Output 06/09/19 06/10/19 06/11/19 06:59 06:59 06:59 Intake Total 1480 1720 1480 Balance 1480 1720 1480 Weight 69.3 kg 69.7 kg General appearance: PRESENT: no acute distress Eye exam: PRESENT: PERRLA Respiratory exam: PRESENT: clear to auscultation martínez Cardiovascular exam: PRESENT: +S1, +S2 GI/Abdominal exam: PRESENT: soft Neurological exam: PRESENT: alert, CN II-XII grossly intact Results Laboratory Results: WBC 8.6 10^3/uL (4.0-10.5) 06/06/19 15:44 RBC 5.35 10^6/uL (3.72-5.28) H 06/06/19 15:44 Hgb 13.2 g/dL (12.0-15.5) 06/06/19 15:44 Hct 39.8 % (36.0-47.0) 06/06/19 15:44 MCV 75 fl (80-97) L 06/06/19 15:44 MCH 24.6 pg (27.0-33.4) L 06/06/19 15:44 MCHC 33.0 g/dL (32.0-36.0) 06/06/19 15:44 RDW 15.4 % (11.5-14.0) H 06/06/19 15:44 Plt Count 356 10^3/uL (150-450) 06/06/19 15:44 Lymph % (Auto) 17.0 % (13-45) 06/06/19 15:44 [place] % (Auto) 6.0 % (3-13) 06/06/19 15:44 Eos % (Auto) 0.4 % (0-6) 06/06/19 15:44 Baso % (Auto) 0.3 % (0-2) 06/06/19 15:44 Absolute Neuts (auto) 6.6 10^3/uL (1.7-8.2) 06/06/19 15:44 Absolute Lymphs (auto) 1.5 10^3/uL (0.5-4.7) 06/06/19 15:44 Absolute Monos (auto) 0.5 10^3/uL (0.1-1.4) 06/06/19 15:44 Absolute Eos (auto) 0.0 10^3/uL (0.0-0.6) 06/06/19 15:44 Absolute Basos (auto) 0.0 10^3/uL (0.0-0.2) 06/06/19 15:44 Seg Neutrophils % 76.3 % (42-78) 06/06/19 15:44 Sodium 134.1 mmol/L (137-145) L 06/06/19 15:44 Potassium 4.2 mmol/L (3.6-5.0) 06/06/19 15:44 Chloride 100 mmol/L (98-107) 06/06/19 15:44 Carbon Dioxide 21 mmol/L (22-30) L 06/06/19 15:44 Anion Gap 13 (5-19) 06/06/19 15:44 BUN 18 mg/dL (7-20) 06/06/19 15:44 Creatinine 0.94 mg/dL (0.52-1.25) 06/06/19 15:44 Est GFR ( Amer) > 60 (>60) 06/06/19 15:44 Est GFR (MDRD) Non-Af > 60 (>60) 06/06/19 15:44 Glucose 113 mg/dL (75-110) H 06/06/19 15:44 Calcium 9.7 mg/dL (8.4-10.2) 06/06/19 15:44 Total Bilirubin 0.5 mg/dL (0.2-1.3) 06/06/19 15:44 Direct Bilirubin 0.1 mg/dL (0.0-0.4) 06/06/19 15:44 Neonat Total Bilirubin Not Reportable 06/06/19 15:44 Neonat Direct Bilirubin Not Reportable 06/06/19 15:44 Neonat Indirect Bili Not Reportable 06/06/19 15:44 AST 19 U/L (14-36) 06/06/19 15:44 ALT 11 U/L (<35) 06/06/19 15:44 Alkaline Phosphatase 123 U/L (38-126) 06/06/19 15:44 Total Protein 7.0 g/dL (6.3-8.2) 06/06/19 15:44 Albumin 4.1 g/dL (3.5-5.0) 06/06/19 15:44 TSH 1.82 uIU/mL (0.47-4.68) 06/06/19 15:44 Free T4 1.06 ng/dL (0.78-2.19) 06/06/19 15:44 Urine Color YELLOW 06/06/19 20:09 Urine Appearance CLEAR 06/06/19 20:09 Urine pH 6.0 (5.0-9.0) 06/06/19 20:09 Ur Specific [place] 1.011 06/06/19 20:09 Urine Protein NEGATIVE mg/dL (NEGATIVE) 06/06/19 20:09 Urine Glucose (UA) NEGATIVE mg/dL (NEGATIVE) 06/06/19 20:09 Urine Ketones NEGATIVE mg/dL (NEGATIVE) 06/06/19 20:09 Urine Blood SMALL (NEGATIVE) H 06/06/19 20:09 Urine Nitrite NEGATIVE (NEGATIVE) 06/06/19 20:09 Urine Bilirubin NEGATIVE (NEGATIVE) 06/06/19 20:09 Urine Urobilinogen NEGATIVE mg/dL (<2.0) 06/06/19 20:09 Ur Leukocyte Esterase NEGATIVE (NEGATIVE) 06/06/19 20:09 Urine WBC (Auto) 0 /HPF 06/06/19 20:09 Urine RBC (Auto) 1 /HPF 06/06/19 20:09 Urine Mucus (Auto) RARE /LPF 06/06/19 20:09 Urine Ascorbic Acid NEGATIVE (NEGATIVE) 06/06/19 20:09 Impressions: KUB X-Ray 06/06/19 00:00 IMPRESSION: NO RADIOGRAPHIC EVIDENCE FOR ACUTE ABDOMINAL DISEASE. Stroke Is this a Stroke Patient?: No Reason(s) for not prescribing Anti-thrombolytic therapy:: Not indicated Stroke Pt being discharged on Anti-coagulation therapy?: No Reason(s) for not prescribing Anti-coagulation therapy:: Not indicated Stroke Pt being discharged on Statins?: No Reason(s) for not prescribing Statins therapy:: Not indicated Acute Heart Failure - Is this a Heart Failure Patient?: No Follow-up Appointment scheduled within 7 days?: Yes
[2019-06-10] MEDS: MONTELUKAST SODIUM 10 MG TABLET PO SCH (21:29)
[2019-06-10] MEDS: PHARMACY COMMUNICATION ORDER MC SCH (21:33)
[2019-06-11] MEDS: HYDROMORPHONE HCL INJ/PF 2 MG/ML AMPULE IV PRN ×2 (02:18→06:36)
[2019-06-11] MEDS: PROMETHAZINE HCL INJ 25 MG/1 ML VIAL IV PRN ×2 (02:18→06:35)
[2019-06-11] MEDS: LEVOTHYROXINE SODIUM 0.1 MG TABLET PO SCH (06:31)
[2019-06-11] MEDS: GABAPENTIN 300 MG CAPSULE PO SCH ×3 (06:31→21:50)
[2019-06-11] MEDS ORDERED: NALOXONE HCL INJ/PF 0.4 MG/1 ML SDV ONE ×2 (08:34→08:37)
[2019-06-11] MEDS: CLOPIDOGREL BISULFATE 75 MG TABLET PO SCH (09:48)
[2019-06-11] MEDS: SERTRALINE HCL 50 MG TABLET PO SCH (09:49)
[2019-06-11] MEDS: PANTOPRAZOLE SODIUM 40 MG TABLET.DR PO SCH ×2 (09:49→18:09)
[2019-06-11] MEDS: LIDOCAINE 5% (700 MG) TRANSDERMAL ADH..PATCH TP SCH (09:52)
[2019-06-11] MEDS: SUCRALFATE 1 GM TABLET PO SCH ×4 (09:52→21:50)
[2019-06-11] MEDS ORDERED: ACETAMINOPHEN 325 MG TABLET ONE (14:37)
[2019-06-11 14:45] LABS: HEMATOCRIT 29.6 % (36.0-47.0); HEMOGLOBIN 9.9 g/dL (12.0-15.5); MEAN CORPUSCULAR HEMOGLOBIN 25.2 pg (27.0-33.4); MEAN CORPUSCULAR HGB CONC 33.6 g/dL (32.0-36.0); MEAN CORPUSCULAR VOLUME 75 fl (80-97); PLATELET COUNT 268 10^3/uL (150-450); RED BLOOD COUNT 3.95 10^6/uL (3.72-5.28); RED CELL DISTRIBUTION WIDTH 15.9 % (11.5-14.0); WHITE BLOOD COUNT 9.2 10^3/uL (4.0-10.5)
--- NOTE | 2019-06-11 15:03 | RADIOLOGY REPORT (SQ) ---
EXAM DESCRIPTION: CHEST SINGLE VIEW COMPLETED DATE/TIME: 06/11/2019 2:51 pm REASON FOR STUDY: fever COMPARISON: 10/30/2018 NUMBER OF VIEWS: One view. TECHNIQUE: Single frontal radiographic view of the chest acquired. LIMITATIONS: None. FINDINGS: LUNGS AND PLEURA: No opacities, masses or pneumothorax. No pleural effusion. MEDIASTINUM AND HILAR STRUCTURES: No masses. Contour normal. HEART AND VASCULAR STRUCTURES: Stable in appearance. BONES: No acute findings. HARDWARE: Nurse chamber leads overlie the dorsal spine. [id number] is in place. OTHER: No other significant finding. IMPRESSION: NO SIGNIFICANT RADIOGRAPHIC FINDING IN THE CHEST. TECHNICAL DOCUMENTATION: JOB ID: [id number] All Rights Reserved Reading location - IP/workstation name: [email or web address]
[2019-06-11 15:06] LABS: ABSOLUTE LYMPHOCYTES# (MANUAL) 0.5 10^3/uL (0.5-4.7); ABSOLUTE MONOCYTES # (MANUAL) 0.4 10^3/uL (0.1-1.4); BAND NEUTROPHILS % (MANUAL) 1 % (3-5); BASOPHILS % (MANUAL) 0 % (0-2); EOSINOPHILS % (MANUAL) 0 % (0-6); LYMPHOCYTES % (MANUAL) 5 % (13-45); MONOCYTES % (MANUAL) 4 % (3-13); SEGMENTED NEUTROPHILS % (MAN) 90 % (42-78); TOTAL CELLS COUNTED 100
[2019-06-11 15:07] LABS: ANISOCYTOSIS 1+; PLATELET COMMENT ADEQUATE
[2019-06-11] MEDS: CEFTRIAXONE 1 GM/D5W RTU 1 GM/50 ML RTUPB IV SCH (15:35)
[2019-06-11 16:28] LABS: APPEARANCE,URINE CLEAR; BILIRUBIN,URINE NEGATIVE (NEGATIVE); COLOR,URINE YELLOW; GLUCOSE, URINE NEGATIVE (NEGATIVE); KETONES,URINE NEGATIVE (NEGATIVE); LEUKOCYTE ESTERASE,URINE NEGATIVE (NEGATIVE); NITRITE,URINE NEGATIVE (NEGATIVE); PROTEIN,URINE NEGATIVE (NEGATIVE); UROBILINOGEN,URINE NEGATIVE mg/dL (<2.0)
--- NOTE | 2019-06-11 17:12 | PDOC PROGRESS REPORT ---
Subjective Progress Note for:: 06/11/19 Subjective:: Patient was supposed to be discharged today, she developed fever with a temperature, 102.9, the discharge plan was canceled. Septic work-up instituted, the source of the fever is not clear, she has a history of recurrent UTI Reason For Visit: INTRACTABLE VOMITING, PERSISTENT DIARRHEA Physical Exam Vital Signs: Temp Pulse Resp BP Pulse Ox 102.9 F H 94 18 150/76 H 96 06/11/19 13:38 06/11/19 13:38 06/11/19 13:38 06/11/19 13:38 06/11/19 13:38 Intake & Output 06/10/19 06/11/19 06/12/19 06:59 06:59 06:59 Intake Total 1720 1480 1000 Balance 1720 1480 1000 Weight 69.7 kg 79.3 kg General appearance: PRESENT: no acute distress Eye exam: PRESENT: PERRLA Respiratory exam: PRESENT: clear to auscultation martínez Cardiovascular exam: PRESENT: +S1, +S2 GI/Abdominal exam: PRESENT: soft Neurological exam: PRESENT: alert Results Laboratory Results: 06/11/19 14:29 06/06/19 15:44 06/11/19 06/11/19 14:29 16:00 WBC 9.2 RBC 3.95 Hgb 9.9 L Hct 29.6 L MCV 75 L MCH 25.2 L MCHC 33.6 RDW 15.9 H Plt Count 268 Seg Neutrophils % Not Reportable Urine Color YELLOW Urine Appearance CLEAR Urine pH 6.0 Ur Specific [place] 1.010 Urine Protein NEGATIVE Urine Glucose (UA) NEGATIVE Urine Ketones NEGATIVE Urine Blood MODERATE H Urine Nitrite NEGATIVE Ur Leukocyte Esterase NEGATIVE Urine WBC (Auto) 2 Urine RBC (Auto) 3 06/06/19 15:44 Blood Blood Culture - Final NO GROWTH IN 5 DAYS Impressions: KUB X-Ray 06/06/19 00:00 IMPRESSION: NO RADIOGRAPHIC EVIDENCE FOR ACUTE ABDOMINAL DISEASE. Chest X-Ray 06/11/19 00:00 IMPRESSION: NO SIGNIFICANT RADIOGRAPHIC FINDING IN THE CHEST. Assessment & Plan - Diagnosis (1) Acute gastroenteritis Is this a current diagnosis for this admission?: Yes (2) Coronary artery disease Qualifiers: Coronary Disease-Associated Artery/Lesion type: [place] artery [place] vs. transplanted heart: [place] heart Associated angina: without angina Qualified Code(s): I25.10 - Atherosclerotic heart disease of [place] coronary artery without angina pectoris Is this a current diagnosis for this admission?: Yes (3) Dehydration Is this a current diagnosis for this admission?: Yes (4) History of SIADH Is this a current diagnosis for this admission?: Yes (5) Systemic lupus erythematosus Is this a current diagnosis for this admission?: Yes (6) Fever Qualifiers: Fever type: unspecified Qualified Code(s): R50.9 - Fever, unspecified Is this a current diagnosis for this admission?: Yes Plan: , Blood culture, urine culture chest x-ray ordered, the etiology of this was not clear start empiric IV antibiotic for UTI, chest x-ray was negative for pneumonia
[2019-06-11] MEDS: MONTELUKAST SODIUM 10 MG TABLET PO SCH (21:50)
[2019-06-11] MEDS: PHARMACY COMMUNICATION ORDER MC SCH (21:51)
[2019-06-12] MEDS: ACETAMINOPHEN 325 MG TABLET PO PRN ×3 (06:57→21:11)
[2019-06-12] MEDS: GABAPENTIN 300 MG CAPSULE PO SCH ×3 (06:58→21:07)
[2019-06-12] MEDS: LEVOTHYROXINE SODIUM 0.1 MG TABLET PO SCH (06:58)
[2019-06-12] MEDS: SERTRALINE HCL 50 MG TABLET PO SCH (09:57)
[2019-06-12] MEDS: PANTOPRAZOLE SODIUM 40 MG TABLET.DR PO SCH ×2 (09:57→18:20)
[2019-06-12] MEDS: CLOPIDOGREL BISULFATE 75 MG TABLET PO SCH (09:57)
[2019-06-12] MEDS: SUCRALFATE 1 GM TABLET PO SCH ×4 (09:58→21:07)
[2019-06-12] MEDS: LIDOCAINE 5% (700 MG) TRANSDERMAL ADH..PATCH TP SCH (09:58)
[2019-06-12] MEDS: CEFTRIAXONE 1 GM/D5W RTU 1 GM/50 ML RTUPB IV SCH (10:02)
[2019-06-12] MEDS: CYCLOBENZAPRINE HCL 10 MG TABLET PO PRN (15:08)
--- NOTE | 2019-06-12 19:54 | PDOC PROGRESS REPORT ---
Subjective Progress Note for:: 06/12/19 Subjective:: Patient seen by the bedside, she is somewhat better today Reason For Visit: INTRACTABLE VOMITING, PERSISTENT DIARRHEA Physical Exam Vital Signs: Temp Pulse Resp BP Pulse Ox 98.4 F 75 12 148/80 H 99 06/12/19 16:09 06/12/19 16:09 06/12/19 08:23 06/12/19 16:09 06/12/19 16:09 Intake & Output 06/11/19 06/12/19 06/13/19 06:59 06:59 06:59 Intake Total 1480 1050 400 Balance 1480 1050 400 Weight 79.3 kg 79 kg General appearance: PRESENT: no acute distress Eye exam: PRESENT: PERRLA Respiratory exam: PRESENT: clear to auscultation martínez Cardiovascular exam: PRESENT: +S1, +S2 GI/Abdominal exam: PRESENT: soft Neurological exam: PRESENT: alert, CN II-XII grossly intact Results Laboratory Results: 06/11/19 14:29 06/06/19 15:44 06/11/19 16:00 Clean Catch Midstream Urine Culture - Final Mixed Urogenital Mary 06/06/19 16:53 Blood Blood Culture - Final NO GROWTH IN 5 DAYS 06/06/19 15:44 Blood Blood Culture - Final NO GROWTH IN 5 DAYS Impressions: KUB X-Ray 06/06/19 00:00 IMPRESSION: NO RADIOGRAPHIC EVIDENCE FOR ACUTE ABDOMINAL DISEASE. Chest X-Ray 06/11/19 00:00 IMPRESSION: NO SIGNIFICANT RADIOGRAPHIC FINDING IN THE CHEST. Assessment & Plan - Diagnosis (1) Acute gastroenteritis Is this a current diagnosis for this admission?: Yes Plan: Continue treatment (2) Coronary artery disease Qualifiers: Coronary Disease-Associated Artery/Lesion type: [place] artery [place] vs. transplanted heart: [place] heart Associated angina: without angina Qualified Code(s): I25.10 - Atherosclerotic heart disease of [place] coronary artery without angina pectoris Is this a current diagnosis for this admission?: Yes (3) Dehydration Is this a current diagnosis for this admission?: Yes (4) History of SIADH Is this a current diagnosis for this admission?: Yes (5) Systemic lupus erythematosus Is this a current diagnosis for this admission?: Yes (6) Fever Qualifiers: Fever type: unspecified Qualified Code(s): R50.9 - Fever, unspecified Is this a current diagnosis for this admission?: Yes
[2019-06-12] MEDS: MONTELUKAST SODIUM 10 MG TABLET PO SCH (21:07)
[2019-06-12] MEDS: DEXTROSE 5%-NORMAL SALINE 1,000 ML IV PRN (21:08)
[2019-06-12] MEDS: PHARMACY COMMUNICATION ORDER MC SCH (21:08)
[2019-06-13] MEDS: GABAPENTIN 300 MG CAPSULE PO SCH ×3 (05:01→21:02)
[2019-06-13] MEDS: ACETAMINOPHEN 325 MG TABLET PO PRN ×3 (05:01→21:02)
[2019-06-13] MEDS: LEVOTHYROXINE SODIUM 0.1 MG TABLET PO SCH (05:01)
[2019-06-13] MEDS: CEFTRIAXONE 1 GM/D5W RTU 1 GM/50 ML RTUPB IV SCH (09:19)
[2019-06-13] MEDS: SERTRALINE HCL 50 MG TABLET PO SCH (09:21)
[2019-06-13] MEDS: SUCRALFATE 1 GM TABLET PO SCH ×4 (09:22→21:02)
[2019-06-13] MEDS: OXYCODONE HCL IR 5 MG TABLET PO PRN ×2 (09:22→17:38)
[2019-06-13] MEDS: OXYCODONE-ACETAMINOPHEN 5-325 MG TABLET PO PRN ×2 (09:22→17:38)
[2019-06-13] MEDS: CLOPIDOGREL BISULFATE 75 MG TABLET PO SCH (09:23)
[2019-06-13] MEDS: LIDOCAINE 5% (700 MG) TRANSDERMAL ADH..PATCH TP SCH (09:23)
[2019-06-13] MEDS: PANTOPRAZOLE SODIUM 40 MG TABLET.DR PO SCH ×2 (09:23→17:29)
[2019-06-13] MEDS: CYCLOBENZAPRINE HCL 10 MG TABLET PO PRN (13:53)
[2019-06-13 13:54] LABS: ABSOLUTE LYMPHOCYTES (AUTO) 1.2 10^3/uL (0.5-4.7); ABSOLUTE MONOCYTES (AUTO) 0.4 10^3/uL (0.1-1.4); ABSOLUTE NEUT (AUTO) 3.6 10^3/uL (1.7-8.2); BASOPHILS % (AUTO) 0.3 % (0-2); EOSINOPHILS % (AUTO) 0.4 % (0-6); HEMATOCRIT 30.7 % (36.0-47.0); HEMOGLOBIN 10.4 g/dL (12.0-15.5); LYMPHOCYTES % (AUTO) 22.8 % (13-45); MEAN CORPUSCULAR HEMOGLOBIN 24.8 pg (27.0-33.4); MEAN CORPUSCULAR HGB CONC 33.8 g/dL (32.0-36.0); MEAN CORPUSCULAR VOLUME 74 fl (80-97); MONOCYTES % (AUTO) 7.8 % (3-13); PLATELET COUNT 294 10^3/uL (150-450); RED BLOOD COUNT 4.18 10^6/uL (3.72-5.28); RED CELL DISTRIBUTION WIDTH 16.2 % (11.5-14.0); SEGMENTED NEUTROPHILS % (AUTO) 68.7 % (42-78); TOTAL CELLS COUNTED % (AUTO) 100 %; WHITE BLOOD COUNT 5.3 10^3/uL (4.0-10.5)
[2019-06-13 14:18] LABS: ALBUMIN 2.9 g/dL (3.5-5.0); ALKALINE PHOSPHATASE 77 U/L (38-126); ANION GAP 9 (5-19); ASPARTATE AMINO TRANSFERASE 51 U/L (14-36); BILIRUBIN,DIRECT 0.2 mg/dL (0.0-0.4); BILIRUBIN,TOTAL 0.2 mg/dL (0.2-1.3); BLOOD UREA NITROGEN 11 mg/dL (7-20); CALCIUM 8.3 mg/dL (8.4-10.2); CARBON DIOXIDE 24 mmol/L (22-30); CHLORIDE 105 mmol/L (98-107); GLUCOSE 140 mg/dL (75-110); TOTAL PROTEIN 5.3 g/dL (6.3-8.2)
[2019-06-13 14:39] LABS: POTASSIUM 2.9 mmol/L (3.6-5.0)
[2019-06-13] MEDS: POTASSIUM CHLORIDE 10 MEQ CAPSULE.ER PO SCH ×2 (17:29→19:55)
[2019-06-13] MEDS: DEXTROSE 5%-NORMAL SALINE 1,000 ML IV PRN (17:33)
[2019-06-13] MEDS: ONDANSETRON 4 MG TAB.RAPDIS PO PRN (21:02)
[2019-06-13] MEDS: MONTELUKAST SODIUM 10 MG TABLET PO SCH (21:02)
--- NOTE | 2019-06-13 21:06 | PDOC DISCHARGE SUMMARY ---
Impression - Admit/DC Date/PCP Admission Date/Primary Care Provider: 06/06/19 14:58 IAN MUÑOZ MD Discharge Date: 06/14/19 - Discharge Diagnosis (1) Acute gastroenteritis Is this a current diagnosis for this admission?: Yes (2) Coronary artery disease Is this a current diagnosis for this admission?: Yes (3) Dehydration Is this a current diagnosis for this admission?: Yes (4) History of SIADH Is this a current diagnosis for this admission?: Yes (5) Systemic lupus erythematosus Is this a current diagnosis for this admission?: Yes (6) Fever Is this a current diagnosis for this admission?: Yes - Additional Information Referrals: IAN MUÑOZ MD [Primary Care Provider] - 06/18/19 9:30 am Home Medications: Hydrocodone Bitartrate [Zohydro ER] 40 mg PO Q12 07/08/18 Levothyroxine Sodium [Synthroid] 100 mcg PO Q6AM 07/08/18 Pantoprazole Sodium [Protonix] 40 mg PO BID 07/08/18 Sertraline HCl [Zoloft 50 mg Tablet] 100 mg PO DAILY 07/08/18 Sucralfate [Carafate 1 gm Tablet] 1 gm PO QID 07/08/18 Bethanechol Chloride [Urecholine 10 mg Tablet] 10 mg PO Q8 08/19/18 Gabapentin [Neurontin] 600 mg PO Q8 08/19/18 Lidocaine [Lidoderm 5% (700 mg) Transdermal Patch] 1 patch TP DAILY 08/19/18 Oxycodone HCl/Acetaminophen [Percocet 10-325 mg Tablet] 1 each PO Q6HP PRN 08/19/18 Cyanocobalamin (Vitamin B-12) [Vitamin B-12 Inj 1000 Mcg/1 ml Vial] 1,000 mcg IM .MONTHLY 09/16/18 Montelukast Sodium [Singulair 10 mg Tablet] 10 mg PO QHS 09/16/18 Cyclobenzaprine HCl [Flexeril 10 mg Tablet] 10 mg PO Q8HP PRN 10/04/18 Zaleplon [Sonata] 10 mg PO HSP PRN 10/04/18 Clopidogrel Bisulfate [Plavix 75 mg Tablet] 75 mg PO DAILY 06/07/19 History of Present Illiness History of Present Illness: VALENTE MUNOZ is a 63 year old female,Patient is well-known to me, she has a history of systemic lupus erythematosus, SLE, gastroparesis, history of coronary artery disease, hip arthropathy status post hip replacement, history of recurrent UTI partly due to bladder atony/dystony. She presented to the office for evaluation of persistent, intractable vomiting, diarrhea. She has had these problems previously, she was particularly concerned about dehydration, she stated that she is not able to keep any food down. She was admitted directly from the office into the hospital for evaluation Hospital Course Hospital Course: Patient was admitted for the management of acute gastroenteritis, dehydration, abdominal pain. She was treated IV fluid for rehydration, pain control was achieved with intravenous Dilaudid. Patient did not produce any stool sample throughout hospital stay, she had vomiting. She has a history of gastroparesis, she was admitted previously when she presented in a similar fashion, in prior admission there is usually associated urinary tract infection, dehydration. On this admission there was no documented UTI, diarrhea. It was felt that patient at this point as optimized inpatient care and needed to be discharged homeShe was supposed to be discharged on June 11, 2019 but she developed fever of unknown etiology, she was treated empirically with IV antibiotic Rocephin Physical Exam Vital Signs: Temp Pulse Resp BP Pulse Ox 98.3 F 67 18 106/45 L 99 06/13/19 20:24 06/13/19 20:24 06/13/19 20:24 06/13/19 20:24 06/13/19 20:24 Intake & Output 06/12/19 06/13/19 06/14/19 06:59 06:59 06:59 Intake Total 6543 568 8569 Balance 3076 800 5371 Weight 79 kg 77.8 kg General appearance: PRESENT: no acute distress Eye exam: PRESENT: PERRLA Respiratory exam: PRESENT: clear to auscultation martínez Cardiovascular exam: PRESENT: +S1, +S2 GI/Abdominal exam: PRESENT: soft Neurological exam: PRESENT: alert, CN II-XII grossly intact Results Laboratory Results: WBC 5.3 10^3/uL (4.0-10.5) 06/13/19 13:32 RBC 4.18 10^6/uL (3.72-5.28) 06/13/19 13:32 Hgb 10.4 g/dL (12.0-15.5) L 06/13/19 13:32 Hct 30.7 % (36.0-47.0) L 06/13/19 13:32 MCV 74 fl (80-97) L 06/13/19 13:32 MCH 24.8 pg (27.0-33.4) L 06/13/19 13:32 MCHC 33.8 g/dL (32.0-36.0) 06/13/19 13:32 RDW 16.2 % (11.5-14.0) H 06/13/19 13:32 Plt Count 294 10^3/uL (150-450) 06/13/19 13:32 Lymph % (Auto) 22.8 % (13-45) 06/13/19 13:32 [place] % (Auto) 7.8 % (3-13) 06/13/19 13:32 Eos % (Auto) 0.4 % (0-6) 06/13/19 13:32 Baso % (Auto) 0.3 % (0-2) 06/13/19 13:32 Absolute Neuts (auto) 3.6 10^3/uL (1.7-8.2) 06/13/19 13:32 Absolute Lymphs (auto) 1.2 10^3/uL (0.5-4.7) 06/13/19 13:32 Absolute Monos (auto) 0.4 10^3/uL (0.1-1.4) 06/13/19 13:32 Absolute Eos (auto) 0.0 10^3/uL (0.0-0.6) 06/13/19 13:32 Absolute Basos (auto) 0.0 10^3/uL (0.0-0.2) 06/13/19 13:32 Total Counted 100 06/11/19 14:29 Seg Neutrophils % 68.7 % (42-78) 06/13/19 13:32 Seg Neuts % (Manual) 90 % (42-78) H 06/11/19 14:29 Band Neutrophils % 1 % (3-5) L 06/11/19 14:29 Lymphocytes % (Manual) 5 % (13-45) L 06/11/19 14:29 Monocytes % (Manual) 4 % (3-13) 06/11/19 14:29 Eosinophils % (Manual) 0 % (0-6) 06/11/19 14:29 Basophils % (Manual) 0 % (0-2) 06/11/19 14:29 Abs Neuts (Manual) 8.4 10^3/uL (1.7-8.2) H 06/11/19 14:29 Abs Lymphs (Manual) 0.5 10^3/uL (0.5-4.7) 06/11/19 14:29 Abs Monocytes (Manual) 0.4 10^3/uL (0.1-1.4) 06/11/19 14:29 Absolute Eos (Manual) 0.0 10^3/uL (0.0-0.6) 06/11/19 14:29 Abs Basophils (Manual) 0.0 10^3/uL (0.0-0.2) 06/11/19 14:29 Platelet Comment ADEQUATE 06/11/19 14:29 Anisocytosis 1+ 06/11/19 14:29 Microcytosis 1+ 06/11/19 14:29 Sodium 138.0 mmol/L (137-145) 06/13/19 13:32 Potassium 2.9 mmol/L (3.6-5.0) L* 06/13/19 13:32 Chloride 105 mmol/L (98-107) 06/13/19 13:32 Carbon Dioxide 24 mmol/L (22-30) 06/13/19 13:32 Anion Gap 9 (5-19) 06/13/19 13:32 BUN 11 mg/dL (7-20) 06/13/19 13:32 Creatinine 0.90 mg/dL (0.52-1.25) 06/13/19 13:32 Est GFR ( Amer) > 60 (>60) 06/13/19 13:32 Est GFR (MDRD) Non-Af > 60 (>60) 06/13/19 13:32 Glucose 140 mg/dL (75-110) H 06/13/19 13:32 POC Glucose 188 mg/dL (70-110) H 06/11/19 08:34 Calcium 8.3 mg/dL (8.4-10.2) L 06/13/19 13:32 Total Bilirubin 0.2 mg/dL (0.2-1.3) 06/13/19 13:32 Direct Bilirubin 0.2 mg/dL (0.0-0.4) 06/13/19 13:32 Neonat Total Bilirubin Not Reportable 06/13/19 13:32 Neonat Direct Bilirubin Not Reportable 06/13/19 13:32 Neonat Indirect Bili Not Reportable 06/13/19 13:32 AST 51 U/L (14-36) H 06/13/19 13:32 ALT 11 U/L (<35) 06/13/19 13:32 Alkaline Phosphatase 77 U/L (38-126) 06/13/19 13:32 Total Protein 5.3 g/dL (6.3-8.2) L 06/13/19 13:32 Albumin 2.9 g/dL (3.5-5.0) L 06/13/19 13:32 TSH 1.82 uIU/mL (0.47-4.68) 06/06/19 15:44 Free T4 1.06 ng/dL (0.78-2.19) 06/06/19 15:44 Urine Color YELLOW 06/11/19 16:00 Urine Appearance CLEAR 06/11/19 16:00 Urine pH 6.0 (5.0-9.0) 06/11/19 16:00 Ur Specific [place] 1.010 06/11/19 16:00 Urine Protein NEGATIVE mg/dL (NEGATIVE) 06/11/19 16:00 Urine Glucose (UA) NEGATIVE mg/dL (NEGATIVE) 06/11/19 16:00 Urine Ketones NEGATIVE mg/dL (NEGATIVE) 06/11/19 16:00 Urine Blood MODERATE (NEGATIVE) H 06/11/19 16:00 Urine Nitrite NEGATIVE (NEGATIVE) 06/11/19 16:00 Urine Bilirubin NEGATIVE (NEGATIVE) 06/11/19 16:00 Urine Urobilinogen NEGATIVE mg/dL (<2.0) 06/11/19 16:00 Ur Leukocyte Esterase NEGATIVE (NEGATIVE) 06/11/19 16:00 Urine WBC (Auto) 2 /HPF 06/11/19 16:00 Urine RBC (Auto) 3 /HPF 06/11/19 16:00 Squamous Epi Cells Auto <1 /HPF 06/11/19 16:00 Urine Mucus (Auto) RARE /LPF 06/11/19 16:00 Urine Ascorbic Acid NEGATIVE (NEGATIVE) 06/11/19 16:00 Impressions: KUB X-Ray 06/06/19 00:00 IMPRESSION: NO RADIOGRAPHIC EVIDENCE FOR ACUTE ABDOMINAL DISEASE. Chest X-Ray 06/11/19 00:00 IMPRESSION: NO SIGNIFICANT RADIOGRAPHIC FINDING IN THE CHEST. Stroke Is this a Stroke Patient?: No Stroke Pt being discharged on Anti-thrombolytic therapy?: No Reason(s) for not prescribing Anti-thrombolytic therapy:: Not indicated Stroke Pt being discharged on Anti-coagulation therapy?: No Reason(s) for not prescribing Anti-coagulation therapy:: Not indicated Stroke Pt being discharged on Statins?: No Reason(s) for not prescribing Statins therapy:: Not indicated Acute Heart Failure - Is this a Heart Failure Patient?: No Follow-up Appointment scheduled within 7 days?: Yes
[2019-06-13] MEDS: PHARMACY COMMUNICATION ORDER MC SCH (21:09)
[2019-06-14] MEDS: POTASSIUM CHLORIDE 10 MEQ CAPSULE.ER PO SCH (00:14)
[2019-06-14] MEDS: OXYCODONE HCL IR 5 MG TABLET PO PRN (04:02)
[2019-06-14] MEDS: OXYCODONE-ACETAMINOPHEN 5-325 MG TABLET PO PRN (04:03)
[2019-06-14] MEDS: LEVOTHYROXINE SODIUM 0.1 MG TABLET PO SCH (05:25)
[2019-06-14] MEDS: GABAPENTIN 300 MG CAPSULE PO SCH (05:25)
[2019-06-14 06:30] LABS: ANION GAP 5 (5-19); BLOOD UREA NITROGEN 11 mg/dL (7-20); CALCIUM 8.4 mg/dL (8.4-10.2); CARBON DIOXIDE 26 mmol/L (22-30); CHLORIDE 109 mmol/L (98-107); GLUCOSE 96 mg/dL (75-110)
[2019-06-14 06:31] LABS: POTASSIUM 4.3 mmol/L (3.6-5.0)
[2019-06-14] MEDS: CYCLOBENZAPRINE HCL 10 MG TABLET PO PRN (07:59)
[2019-06-14] MEDS: ONDANSETRON 4 MG TAB.RAPDIS PO PRN (07:59)
[2019-06-14 09:10] VITALS: BP 154/67
[2019-06-14] MEDS: CEFTRIAXONE 1 GM/D5W RTU 1 GM/50 ML RTUPB IV SCH (09:14)
[2019-06-14] MEDS: CLOPIDOGREL BISULFATE 75 MG TABLET PO SCH (09:24)
[2019-06-14] MEDS: ACETAMINOPHEN 325 MG TABLET PO PRN (09:25)
[2019-06-14] MEDS: SERTRALINE HCL 50 MG TABLET PO SCH (09:25)
[2019-06-14] MEDS: SUCRALFATE 1 GM TABLET PO SCH (09:25)
[2019-06-14] MEDS: PANTOPRAZOLE SODIUM 40 MG TABLET.DR PO SCH (09:26)
[2019-06-14] MEDS: LIDOCAINE 5% (700 MG) TRANSDERMAL ADH..PATCH TP SCH (09:26)
== END 2019-06-14 09:41 | disposition home or self-care (01) | DRG 641 ==
LOC: 4S 14:58
PROVIDERS: ADMIT Internal Medicine; ATTEND Internal Medicine
DX: E86.0 Dehydration (principal); K52.9 Noninfective gastroenteritis and colitis, unspecified; I25.10 Atherosclerotic heart disease of native coronary artery without angina pectoris; M32.9 Systemic lupus erythematosus, unspecified; E78.5 Hyperlipidemia, unspecified; I10 Essential (primary) hypertension; E03.9 Hypothyroidism, unspecified; F32.9 Major depressive disorder, single episode, unspecified; K21.9 Gastro-esophageal reflux disease without esophagitis; Z96.653 Presence of artificial knee joint, bilateral; M96.1 Postlaminectomy syndrome, not elsewhere classified; Y84.8 Other medical procedures as the cause of abnormal reaction of the patient, or of later complication, without mention of misadventure at the time of the procedure; G89.4 Chronic pain syndrome; Z96.641 Presence of right artificial hip joint; I25.2 Old myocardial infarction; Z79.02 Long term (current) use of antithrombotics/antiplatelets; Z79.890 Hormone replacement therapy; Z79.899 Other long term (current) drug therapy; Z86.718 Personal history of other venous thrombosis and embolism; Z85.41 Personal history of malignant neoplasm of cervix uteri; Z95.5 Presence of coronary angioplasty implant and graft; Z88.3 Allergy status to other anti-infective agents; Z88.8 Allergy status to other drugs, medicaments and biological substances; Z88.0 Allergy status to penicillin; Z91.030 Bee allergy status
CPT/HCPCS: 36415; 71045; 74018; 80048; 80053; 80076; 81001; 82962; 84439; 84443; 85025; 87040; 87086; J0696; J1170; J2310; J2550; J3420; J3490; J7042; S0119

== ENCOUNTER 2019-07-10 15:04 | Observation (INO) | payer MEDICARE, OTHER ==
[2019-07-10 16:32] LABS: HEMATOCRIT 43.2 % (36.0-47.0); HEMOGLOBIN 14.6 g/dL (12.0-15.5); MEAN CORPUSCULAR HEMOGLOBIN 25.2 pg (27.0-33.4); MEAN CORPUSCULAR HGB CONC 33.8 g/dL (32.0-36.0); MEAN CORPUSCULAR VOLUME 75 fl (80-97); PLATELET COUNT 254 10^3/uL (150-450); RED CELL DISTRIBUTION WIDTH 16.3 % (11.5-14.0); WHITE BLOOD COUNT 7.9 10^3/uL (4.0-10.5)
[2019-07-10 16:49] LABS: ANION GAP 13 (5-19); BLOOD UREA NITROGEN 13 mg/dL (7-20); CALCIUM 9.8 mg/dL (8.4-10.2); CARBON DIOXIDE 21 mmol/L (22-30); CHLORIDE 105 mmol/L (98-107); GLUCOSE 98 mg/dL (75-110); POTASSIUM 4.4 mmol/L (3.6-5.0)
[2019-07-10] MEDS ORDERED: (PENDING PHARMACY ID) (Zaleplon [Sonata] 10 MG) PO PRN (18:54)
[2019-07-10] MEDS ORDERED: (PENDING PHARMACY ID) (Oxycodone Hcl/Acetaminophen [Percocet 10-325 Mg Tablet] 1 TAB) PO PRN (18:54)
[2019-07-10] MEDS ORDERED: CYANOCOBALAMIN (VITAMIN B-12) INJ 1000 MCG/1 ML VIAL IM SCH (19:00)
[2019-07-10] MEDS: ONDANSETRON HCL INJ/PF 4 MG/2 ML SDV IV PRN (21:09)
[2019-07-10] MEDS: OXYCODONE-ACETAMINOPHEN 5-325 MG TABLET PO PRN (21:31)
[2019-07-10] MEDS: OXYCODONE HCL IR 5 MG TABLET PO PRN (21:32)
[2019-07-10] MEDS: CYCLOBENZAPRINE HCL 10 MG TABLET PO PRN (21:32)
--- NOTE | 2019-07-10 21:32 | PDOC H&P ---
History of Present Illness Admission Date/PCP: 07/10/19 15:04 IAN MUÑOZ MD History of Present Illness: VALENTE MUNOZ is a 63 year old female, She came to the office for evaluation of persistent vomiting, not able to keep any food downShe has a history of gastroparesis with multiple hospitalization for the management of intractable vomiting. She was evaluated in the past with CAT scans, EGD, the primary reason for admission is to administer fluid to prevent dehydration because of persistent vomiting and volume loss. I felt opioid could also be a factor in the etiology of this vomiting, she is a chronic pain patient follows with pain management on chronic opioid therapy, she has a penchant for opioid usage, whenever she is vomiting she always prefer to have intravenous Dilaudid, I am trying to dissuade her From this behavior Past Medical History Cardiac Medical History: Reports: Congestive Heart Failure, Coronary Artery Disease, DVT, Myocardial Infarction, Hyperlipidema, Hypertension, Pulmonary Embolism Pulmonary Medical History: Reports: Bronchitis, Chronic Obstructive Pulmonary Disease (COPD) Endocrine Medical History: Reports: Hypothyroidism Malignancy Medical History: Reports: Cervical Cancer GI Medical History: Reports: Gastroesophageal Reflux Disease, Hiatal Hernia - Repaired Musculoskeltal Medical History: Reports: Arthritis, Fibromyalgia - Lupus Psychiatric Medical History: Reports: Depression Hematology: Reports: Anemia Infectious Medical History: Reports: Clostridium Difficile - Was negative in October2015. Not yet successfully collected stool, Methicillin-Resistant Staph Aureus, Vancomycin-Resistant Enterococci Denies: HIV Past Surgical History Past Surgical History: Reports: Appendectomy, Cardiac Catheterization, Section, Cholecystectomy, Coronary Stent - 3 stents, Herniorrhaphy, Hysterectomy, Orthopedic Surgery - Right knee, bilateral knee replacements and hip replacement metal plate in, Tonsillectomy Social History Smoking Status: Former Smoker Frequency of Alcohol Use: None Hx Recreational Drug Use: No Drugs: None Hx Prescription Drug Abuse: No - Advance Directive Resuscitation Status: Full Code Family History Family History: Arthritis, COPD, Hyperlipidemia, Hypertension, Malignancy, Thyroid Disfunction Parental Family History Reviewed: Yes Children Family History Reviewed: Yes Sibling(s) Family History Reviewed.: Yes Medication/Allergy Home Medications: Bethanechol Chloride [Urecholine 10 mg Tablet] 10 mg PO Q8 07/10/19 Clopidogrel Bisulfate [Plavix 75 mg Tablet] 75 mg PO DAILY 07/10/19 Cyanocobalamin (Vitamin B-12) [Vitamin B-12 Inj 1000 Mcg/1 ml Vial] 1,000 mcg IM .15TH OF THE MONTH 07/10/19 Cyclobenzaprine HCl [Flexeril 10 mg Tablet] 10 mg PO Q8HP PRN 07/10/19 Hydrocodone Bitartrate [Zohydro ER] 40 mg PO Q12 07/10/19 Levothyroxine Sodium [Synthroid 0.1 mg Tablet] 0.1 mg PO Q6AM 07/10/19 Lidocaine [Lidoderm 5% (700 mg) Transdermal Patch] 1 patch TOP DAILY 07/10/19 Montelukast Sodium [Singulair 10 mg Tablet] 10 mg PO DAILY 07/10/19 Oxycodone HCl/Acetaminophen [Percocet 10-325 mg Tablet] 1 tab PO Q6HP PRN 07/10/19 Pantoprazole Sodium [Protonix [address] Tablet] 40 mg PO BID 07/10/19 Sertraline HCl [Zoloft] 100 mg PO DAILY 07/10/19 Sucralfate [Carafate 1 gm Tablet] 1 gm PO QID 07/10/19 Zaleplon [Sonata] 10 mg PO HSP PRN 07/10/19 Allergies/Adverse Reactions: irbesartan [From Avapro] Allergy (Severe, Verified 04/19/19 01:21) swelling of face nitrofurantoin macrocrystalline [From Macrobid] Allergy (Severe, Verified 04/19/19 01:21) Generalized edema Penicillins Allergy (Severe, Verified 04/19/19 01:21) eyes swelled pregabalin [From Lyrica] Allergy (Severe, Verified 04/19/19 01:21) Equilibrium Issues venom-honey bee [bee venom (honey bee)] Allergy (Verified 04/19/19 01:21) Anaphylaxis Review of Systems Constitutional: ABSENT: chills, fever(s), headache(s), weight gain, weight loss Eyes: ABSENT: visual disturbances Ears: ABSENT: hearing changes Cardiovascular: ABSENT: chest pain, dyspnea on exertion, edema, orthropnea, palpitations Respiratory: ABSENT: cough, hemoptysis Gastrointestinal: PRESENT: vomiting. ABSENT: abdominal pain, constipation, d iarrhea, hematemesis, hematochezia, nausea Genitourinary: ABSENT: dysuria, hematuria Musculoskeletal: ABSENT: joint swelling Integumentary: ABSENT: rash, wounds Neurological: ABSENT: abnormal gait, abnormal speech, confusion, dizziness, focal weakness, syncope Psychiatric: ABSENT: anxiety, depression, homidical ideation, suicidal ideation Endocrine: ABSENT: cold intolerance, heat intolerance, menstrual abnormalities, polydipsia, polyuria Hematologic/Lymphatic: ABSENT: easy bleeding, easy bruising, lymphadenopathy Physical Exam Vital Signs: Temp Pulse Resp BP Pulse Ox 98.7 F 76 23 H 137/80 H 100 07/10/19 15:45 07/10/19 15:45 07/10/19 15:45 07/10/19 15:45 07/10/19 15:45 Intake & Output 07/09/19 07/10/19 07/11/19 06:59 06:59 06:59 Weight 89.7 kg General appearance: PRESENT: no acute distress, well-developed, well-nourished Head exam: PRESENT: atraumatic, normocephalic Eye exam: PRESENT: conjunctiva pink, EOMI, PERRLA Ear exam: PRESENT: normal external ear exam Mouth exam: PRESENT: moist, tongue midline Neck exam: PRESENT: full ROM Respiratory exam: PRESENT: clear to auscultation martínez Cardiovascular exam: PRESENT: RRR, +S1, +S2 Pulses: PRESENT: normal dorsalis pedis pul, +2 pedal pulses bilateral Vascular exam: PRESENT: normal capillary refill GI/Abdominal exam: PRESENT: normal bowel sounds, soft Rectal exam: PRESENT: deferred Neurological exam: PRESENT: alert, awake, oriented to person, oriented to place, oriented to time, oriented to situation, CN II-XII grossly intact Psychiatric exam: PRESENT: appropriate affect, normal mood Skin exam: PRESENT: dry, intact, warm Results Laboratory Results: 07/10/19 16:25 07/10/19 16:25 07/10/19 07/10/19 16:25 16:25 WBC 7.9 RBC 5.80 H Hgb 14.6 Hct 43.2 MCV 75 L MCH 25.2 L MCHC 33.8 RDW 16.3 H Plt Count 254 Sodium 139.3 Potassium 4.4 Chloride 105 Carbon Dioxide 21 L Anion Gap 13 BUN 13 Creatinine 1.02 Est GFR ( Amer) > 60 Glucose 98 Calcium 9.8 Assessment & Plan - Diagnosis (1) Intractable vomiting Qualifiers: Vomiting type: unspecified Nausea presence: with nausea Qualified Code(s): R11.2 - Nausea with vomiting, unspecified Is this a current diagnosis for this admission?: Yes Plan: Patient is admitted for the management of vomiting to prevent dehydration. She has a history of gastroparesis with multiple hospitalization for the management of protracted, intractable vomiting. She would be treated with IV normal saline to restore volume and prevent dehydration (2) Dehydration Is this a current diagnosis for this admission?: Yes
[2019-07-10] MEDS: SUCRALFATE 1 GM TABLET PO SCH (21:33)
[2019-07-10] MEDS: MONTELUKAST SODIUM 10 MG TABLET PO SCH (21:33)
[2019-07-10] MEDS ORDERED: BETHANECHOL CHLORIDE 10 MG PO SCH (22:00)
[2019-07-10] MEDS ORDERED: HYDROCODONE BITARTRATE 40 MG PO SCH (22:00)
--- NOTE | 2019-07-10 23:00 | PDOC CONSULTATION ---
Consultation Consult Date: 07/10/19 Provider Consulted: ERICA OLEVRA Consult reason:: Evaluate nausea vomiting History of Present Illness Admission Date/PCP: 07/10/19 15:04 IAN MUÑOZ MD History of Present Illness: VALENTE MUNOZ is a 63 year old female with multiple medical problems with chronic abdominal issues presenting with several day history of nausea and vomiting along with diarrhea and epigastric abdominal pain. Patient states that she has had C. difficile colitis in the past and her current symptoms are similar to what she experienced in the past. She has been unable to hold down any food for few days now and was subsequently admitted for evaluation. She has had upper and lower endoscopy last year and was told that she had gastritis. The endoscopist did recommend to her a repeat EGD and colonoscopy this year. There is no family history of intestinal malignancies. Past Medical History Cardiac Medical History: Reports: Congestive Heart Failure, Coronary Artery Disease, DVT, Myocardial Infarction, Hyperlipidema, Hypertension, Pulmonary Embolism Denies: Atrial Fibrillation, Peripheral Vascular Disease, Heart Murmur Pulmonary Medical History: Reports: Bronchitis, Chronic Obstructive Pulmonary Disease (COPD) Denies: Asthma, Pneumonia, Respiratory Failure, Sleep Apnea, Tuberculosis Neurological Medical History: Denies: Seizures Endocrine Medical History: Reports: Hypothyroidism Denies: Hyperthyroidism Renal/ Medical History: Denies: End Stage Renal Disease Malignancy Medical History: Reports: Cervical Cancer, Ovarian Cancer Denies: Breast Cancer, Leukemia, Lung Cancer GI Medical History: Reports: Gastroesophageal Reflux Disease, Hiatal Hernia - Repaired Denies: Cirrhosis, Crohn's Disease, Hepatitis Musculoskeltal Medical History: Reports: Arthritis, Fibromyalgia - Lupus Psychiatric Medical History: Reports: Depression Denies: Bipolar Disorder, Dementia, Post Traumatic Stress Disorder Hematology: Reports: Anemia Denies: Hemophilia, Sickle Cell Disease, Bleeding Tendencies Infectious Medical History: Reports: Clostridium Difficile - Was negative in October2015. Not yet successfully collected stool, Methicillin-Resistant Staph Aureus, Vancomycin-Resistant Enterococci Denies: HIV Past Surgical History Past Surgical History: Reports: Appendectomy, Cardiac Catheterization, Section, Cholecystectomy, Coronary Stent - 3 stents, Herniorrhaphy, Hysterectomy, Orthopedic Surgery - Right knee, bilateral knee replacements and hip replacement metal plate in, Tonsillectomy Denies: Amputation, Colostomy, Coronary Artery Bypass Graft, Gastric Bypass Surgery, Mastectomy, Pacemaker, Tubal Ligation Social History Smoking Status: Former Smoker Frequency of Alcohol Use: None Hx Recreational Drug Use: No Drugs: None Hx Prescription Drug Abuse: No - Patient is however on chronic narcotics for back pain. - Advance Directive Resuscitation Status: Full Code Family History Family History: Arthritis, COPD, Hyperlipidemia, Hypertension, Malignancy, Thyroid Disfunction Parental Family History Reviewed: Yes - Mother with [employer] COUN[employer] PERSON associated cancer. Children Family History Reviewed: Yes Sibling(s) Family History Reviewed.: Yes Medication/Allergy Home Medications: Bethanechol Chloride [Urecholine 10 mg Tablet] 10 mg PO Q8 07/10/19 Clopidogrel Bisulfate [Plavix 75 mg Tablet] 75 mg PO DAILY 07/10/19 Cyanocobalamin (Vitamin B-12) [Vitamin B-12 Inj 1000 Mcg/1 ml Vial] 1,000 mcg IM .15TH OF THE MONTH 07/10/19 Cyclobenzaprine HCl [Flexeril 10 mg Tablet] 10 mg PO Q8HP PRN 07/10/19 Hydrocodone Bitartrate [Zohydro ER] 40 mg PO Q12 07/10/19 Levothyroxine Sodium [Synthroid 0.1 mg Tablet] 0.1 mg PO Q6AM 07/10/19 Lidocaine [Lidoderm 5% (700 mg) Transdermal Patch] 1 patch TOP DAILY 07/10/19 Montelukast Sodium [Singulair 10 mg Tablet] 10 mg PO DAILY 07/10/19 Oxycodone HCl/Acetaminophen [Percocet 10-325 mg Tablet] 1 tab PO Q6HP PRN 07/10/19 Pantoprazole Sodium [Protonix [address] Tablet] 40 mg PO BID 07/10/19 Sertraline HCl [Zoloft] 100 mg PO DAILY 07/10/19 Sucralfate [Carafate 1 gm Tablet] 1 gm PO QID 07/10/19 Zaleplon [Sonata] 10 mg PO HSP PRN 07/10/19 Allergies/Adverse Reactions: irbesartan [From Avapro] Allergy (Severe, Verified 04/19/19 01:21) swelling of face nitrofurantoin macrocrystalline [From Macrobid] Allergy (Severe, Verified 04/19/19 01:21) Generalized edema Penicillins Allergy (Severe, Verified 04/19/19 01:21) eyes swelled pregabalin [From Lyrica] Allergy (Severe, Verified 04/19/19 01:21) Equilibrium Issues venom-honey bee [bee venom (honey bee)] Allergy (Verified 04/19/19 01:21) Anaphylaxis Physical Exam Vital Signs: Temp Pulse Resp BP Pulse Ox 98.7 F 76 23 H 137/80 H 100 07/10/19 15:45 07/10/19 15:45 07/10/19 15:45 07/10/19 15:45 07/10/19 15:45 Intake & Output 07/09/19 07/10/19 07/11/19 06:59 06:59 06:59 Weight 89.7 kg General appearance: PRESENT: no acute distress, cooperative Eye exam: PRESENT: conjunctiva pink Neck exam: PRESENT: other - Supple with no masses and no tenderness Respiratory exam: PRESENT: clear to auscultation martínez Cardiovascular exam: PRESENT: RRR GI/Abdominal exam: PRESENT: other - Soft, nondistended, very mild epigastric abdominal tenderness without peritoneal signs Neurological exam: PRESENT: alert, awake Psychiatric exam: PRESENT: appropriate affect Results Laboratory Results: 07/10/19 16:25 07/10/19 16:25 07/10/19 07/10/19 16:25 16:25 WBC 7.9 RBC 5.80 H Hgb 14.6 Hct 43.2 MCV 75 L MCH 25.2 L MCHC 33.8 RDW 16.3 H Plt Count 254 Sodium 139.3 Potassium 4.4 Chloride 105 Carbon Dioxide 21 L Anion Gap 13 BUN 13 Creatinine 1.02 Est GFR ( Amer) > 60 Glucose 98 Calcium 9.8 Assessment & Plan - Diagnosis (1) Abdominal pain Qualifiers: Abdominal location: generalized Qualified Code(s): R10.84 - Generalized abdominal pain Is this a current diagnosis for this admission?: Yes Plan: Of unclear etiology. Patient has a diarrheal illness along with nausea and vomi ting. Will obtain a abdominal pelvic CT scan to begin our evaluation. We will also obtain stool studies for C. difficile. Patient may very well may have a functional disorder as well and would highly benefit from a gastroenterology consultation when available.
[2019-07-10] MEDS: NORMAL SALINE 1000 ML 1,000 ML IV PRN (23:38)
--- NOTE | 2019-07-11 02:55 | RADIOLOGY REPORT (SQ) ---
CLINICAL HISTORY: Abdominal pain and nausea and vomiting. COMPARISON: None. TECHNIQUE: CT ABDOMEN PELVIS WITHOUT IV CONTRAST on 07/11/2019 12:00 AM CDT This exam was performed according to our departmental dose-optimization program, which includes automated exposure control, adjustment of the mA and/or kV according to patient size and/or use of iterative reconstruction technique. FINDINGS: Lower lungs are clear. Abdomen: The liver is normal in appearance. There is no biliary dilatation. Cholecystectomy was performed. The pancreas and spleen are normal in appearance. Adrenal glands are normal. Kidneys are moderately atrophic. Abdominal aorta is densely calcified without aneurysm. There is no free air. There is no retroperitoneal adenopathy. Pelvis: There is no bowel obstruction. Urinary bladder is unremarkable. There is no free fluid. Hysterectomy was performed. Skeleton: There is old compression fracture of L1. Lower lumbar fusion was performed. Spinal stimulator is in place with the generator in the right buttocks subcutaneous fat. IMPRESSION: No definite acute inflammatory process.
[2019-07-11] MEDS: ONDANSETRON HCL INJ/PF 4 MG/2 ML SDV IV PRN ×3 (03:15→16:02)
[2019-07-11] MEDS: LEVOTHYROXINE SODIUM 0.1 MG TABLET PO SCH (05:26)
[2019-07-11] MEDS: OXYCODONE-ACETAMINOPHEN 5-325 MG TABLET PO PRN ×3 (07:57→21:59)
[2019-07-11] MEDS: OXYCODONE HCL IR 5 MG TABLET PO PRN ×3 (07:57→21:58)
[2019-07-11] MEDS: SUCRALFATE 1 GM TABLET PO SCH ×4 (07:57→22:02)
[2019-07-11] MEDS: PANTOPRAZOLE SODIUM 40 MG TABLET.DR PO SCH ×2 (09:23→17:39)
[2019-07-11] MEDS: SERTRALINE HCL 50 MG TABLET PO SCH (09:23)
[2019-07-11] MEDS: LIDOCAINE 5% (700 MG) TRANSDERMAL ADH..PATCH TP SCH (09:23)
[2019-07-11] MEDS ORDERED: CLOPIDOGREL BISULFATE 75 MG TABLET PO SCH (10:00)
--- NOTE | 2019-07-11 10:12 | PDOC PROGRESS REPORT ---
Subjective Progress Note for:: 07/11/19 Subjective:: Diarrhea has stopped and her nausea has improved. Reason For Visit: PERSISTENT INTRACTABLE VOMITING AND DIARRHEA Physical Exam Vital Signs: Temp Pulse Resp BP Pulse Ox 97.9 F 66 16 150/65 H 99 07/11/19 00:00 07/11/19 00:00 07/11/19 00:00 07/11/19 00:00 07/11/19 00:00 Intake & Output 07/10/19 07/11/19 07/12/19 06:59 06:59 06:59 Weight 89.7 kg Exam: Abdomen is soft with minimal tenderness of the epigastric area Results Laboratory Results: 07/10/19 16:25 07/10/19 16:25 07/10/19 07/10/19 16:25 16:25 WBC 7.9 RBC 5.80 H Hgb 14.6 Hct 43.2 MCV 75 L MCH 25.2 L MCHC 33.8 RDW 16.3 H Plt Count 254 Sodium 139.3 Potassium 4.4 Chloride 105 Carbon Dioxide 21 L Anion Gap 13 BUN 13 Creatinine 1.02 Est GFR ( Amer) > 60 Glucose 98 Calcium 9.8 Impressions: Abdomen/Pelvis CT 07/11/19 00:00 IMPRESSION: No definite acute inflammatory process. 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 She had her last upper and lower endoscopy about 3 years ago. She had C. difficile of the colon in September 2018 and treated medically at the hospital. Plans: Okay to gradually increase p.o. intake. She needs follow-up with GI Will sign off. Call for any questions
[2019-07-11] MEDS: CLOPIDOGREL BISULFATE 75 MG TABLET PO SCH (11:08)
[2019-07-11] MEDS: NORMAL SALINE 1000 ML 1,000 ML IV PRN ×2 (11:09→22:00)
--- NOTE | 2019-07-11 13:57 | RADIOLOGY REPORT (SQ) ---
EXAM DESCRIPTION: VENOUS UNILATERAL LOWER COMPLETED DATE/TIME: 07/11/2019 1:30 pm REASON FOR STUDY: possible blood clot near right calf R11.10 VOMITING, UNSPECIFIED COMPARISON: None. TECHNIQUE: Dynamic and static metzger scale and color images acquired of the right leg venous system. S elected spectral images acquired with additional compression and augmentation maneuvers. The contrala teral common femoral vein and saphenofemoral junction were also imaged. Images stored on PACS. LIMITATIONS: None. FINDINGS: COMMON FEMORAL: Normal phasicity, compression and augmentation. No visualized echogenic ma terial on metzger scale. No defects on color images. FEMORAL: Normal compression and augmentation. No visualized echogenic material on metzger scale. No defe cts on color images. POPLITEAL: Normal compression, augmentation. No visualized echogenic material on metzger scale. No defec ts on color images. CALF VESSELS: Normal compression, augmentation. No visualized echogenic material on metzger scale. No de fects on color images. GSV and SSV: Normal compression, augmentation. No visualized echogenic material on metzger scale. No def ects on color images. ANY DEEP VENOUS INSUFFICIENCY: Not evaluated. ANY EVIDENCE OF POPLITEAL CYST: No. OTHER: No other significant finding. CONTRALATERAL COMMON FEMORAL VEIN AND SAPHENOFEMORAL JUNCTION: Normal phasicity, compression and augmentation. No visualized echogenic material on metzger scale. No de fects on color images. IMPRESSION: NO EVIDENCE DVT OR SVT IN THE RIGHT LEG. TECHNICAL DOCUMENTATION: JOB ID: [id number] [employer]- All Rights Reserved Reading location - IP/workstation name: [email or web address]
--- NOTE | 2019-07-11 20:44 | PDOC PROGRESS REPORT ---
Subjective Progress Note for:: 07/11/19 Subjective:: Patient was admitted yesterday for the management of vomiting, diarrhea, she has not had any diarrhea since admission, she is upset because she is not getting IV Dilaudid Reason For Visit: INTRACTABLE NAUSEA/VOMITING,DIARRHEA Physical Exam Vital Signs: Temp Pulse Resp BP Pulse Ox 98.4 F 74 20 155/99 H 99 07/11/19 16:05 07/11/19 16:05 07/11/19 12:00 07/11/19 16:05 07/11/19 16:05 Intake & Output 07/10/19 07/11/19 07/12/19 06:59 06:59 06:59 Intake Total 1000 Balance 1000 Weight 89.7 kg General appearance: PRESENT: no acute distress Eye exam: PRESENT: PERRLA Cardiovascular exam: PRESENT: +S1, +S2 GI/Abdominal exam: PRESENT: soft Neurological exam: PRESENT: alert Results Laboratory Results: 07/10/19 16:25 07/10/19 16:25 Impressions: Abdomen/Pelvis CT 07/11/19 00:00 IMPRESSION: No definite acute inflammatory process. Venous Doppler Study 07/11/19 00:00 IMPRESSION: NO EVIDENCE DVT OR SVT IN THE RIGHT LEG. Assessment & Plan - Diagnosis (1) Intractable vomiting Qualifiers: Vomiting type: unspecified Nausea presence: with nausea Qualified Code(s): R11.2 - Nausea with vomiting, unspecified Is this a current diagnosis for this admission?: Yes (2) Dehydration Is this a current diagnosis for this admission?: Yes - Time Time Spent with patient: 35 or more minutes
[2019-07-11] MEDS: MONTELUKAST SODIUM 10 MG TABLET PO SCH (21:57)
[2019-07-11] MEDS: CYCLOBENZAPRINE HCL 10 MG TABLET PO PRN (21:57)
[2019-07-12] MEDS: LEVOTHYROXINE SODIUM 0.1 MG TABLET PO SCH (05:10)
[2019-07-12] MEDS: OXYCODONE HCL IR 5 MG TABLET PO PRN ×2 (05:10→18:00)
[2019-07-12] MEDS: OXYCODONE-ACETAMINOPHEN 5-325 MG TABLET PO PRN ×2 (05:11→18:00)
[2019-07-12] MEDS: ONDANSETRON HCL INJ/PF 4 MG/2 ML SDV IV PRN ×4 (05:11→22:11)
[2019-07-12] MEDS: NORMAL SALINE 1000 ML 1,000 ML IV PRN (09:03)
[2019-07-12] MEDS: SUCRALFATE 1 GM TABLET PO SCH ×4 (09:04→22:09)
[2019-07-12] MEDS: CLOPIDOGREL BISULFATE 75 MG TABLET PO SCH (09:04)
[2019-07-12] MEDS: LIDOCAINE 5% (700 MG) TRANSDERMAL ADH..PATCH TP SCH (09:04)
[2019-07-12] MEDS: SERTRALINE HCL 50 MG TABLET PO SCH (09:04)
[2019-07-12] MEDS: PANTOPRAZOLE SODIUM 40 MG TABLET.DR PO SCH ×2 (09:04→17:32)
--- NOTE | 2019-07-12 14:37 | PDOC PROGRESS REPORT ---
Subjective Progress Note for:: 07/12/19 Subjective:: Patient reported unwitnessed episode of diarrhea so far today and nausea with need for Zofran administration. No chest pain or difficulty with breathing. No fever or chills. Reason For Visit: INTRACTABLE NAUSEA/VOMITING,DIARRHEA Physical Exam Vital Signs: Temp Pulse Resp BP Pulse Ox 97.8 F 66 16 150/80 H 97 07/12/19 11:49 07/12/19 11:49 07/12/19 11:49 07/12/19 11:49 07/12/19 11:49 Intake & Output 07/11/19 07/12/19 07/13/19 06:59 06:59 05:59 Intake Total 2420 1360 Output Total 680 550 Balance 1740 810 Weight 89.7 kg General appearance: PRESENT: no acute distress, obese Head exam: PRESENT: atraumatic, normocephalic Eye exam: PRESENT: conjunctiva pink. ABSENT: scleral icterus Ear exam: PRESENT: normal external ear exam Mouth exam: PRESENT: moist Respiratory exam: PRESENT: clear to auscultation martínez Cardiovascular exam: PRESENT: RRR. ABSENT: diastolic murmur, rubs, systolic murmur GI/Abdominal exam: PRESENT: normal bowel sounds, soft, tenderness - mid gastric region. ABSENT: distended, guarding, mass, organolmegaly, rebound Rectal exam: PRESENT: deferred Extremities exam: ABSENT: pedal edema Musculoskeletal exam: PRESENT: normal inspection Neurological exam: PRESENT: alert, awake, oriented to person, oriented to place, oriented to time, oriented to situation, CN II-XII grossly intact. ABSENT: motor sensory deficit Psychiatric exam: PRESENT: appropriate affect, normal mood. ABSENT: homicidal ideation, suicidal ideation Skin exam: PRESENT: dry, warm Results Laboratory Results: 07/10/19 16:25 07/10/19 16:25 Impressions: Abdomen/Pelvis CT 07/11/19 00:00 IMPRESSION: No definite acute inflammatory process. Venous Doppler Study 07/11/19 00:00 IMPRESSION: NO EVIDENCE DVT OR SVT IN THE RIGHT LEG. Assessment & Plan - Diagnosis (1) Intractable vomiting Qualifiers: Vomiting type: unspecified Nausea presence: with nausea Qualified Code(s): R11.2 - Nausea with vomiting, unspecified Is this a current diagnosis for this admission?: Yes Plan: Maintain on current medication management. (2) Dehydration Is this a current diagnosis for this admission?: Yes Plan: Continue current medication management and IV hydration support. (3) HTN (hypertension) Qualifiers: Hypertension type: essential hypertension Qualified Code(s): I10 - Essential (primary) hypertension Is this a current diagnosis for this admission?: Yes Plan: Start on Lisinopril 10 mg po daily. (4) Hypothyroidism Qualifiers: Hypothyroidism type: unspecified Qualified Code(s): E03.9 - Hypothyroidism, unspecified Is this a current diagnosis for this admission?: Yes Plan: Maintain on current medication management. - Time Time Spent with patient: 25-34 minutes Medications reviewed and adjusted accordingly: Yes Anticipated discharge: Home Within: Other - Inpatient Certification Based on my medical assessment, after consideration of the patient's comorbidities, presenting symptoms, or acuity I expect that the services needed warrant INPATIENT care.: Yes I certify that my determination is in accordance with my understanding of Medicare's requirements for reasonable and necessary INPATIENT services [42 CFR 412.3e].: Yes Medical Necessity: Significant Comorbidiites Make Outpatient Treatment Too Risky, Need Close Monitoring Due to Risk of Patient Decompensation, Need For IV Fluids, Risk of Complication if Not Cared For in Hospital, Risk of Diagnosis Which Will Require Inpatient Eval/Care/Monitoring Post 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 Maintain on all other current medication management.
[2019-07-12] MEDS: LISINOPRIL 10 MG TABLET PO SCH (16:27)
[2019-07-12] MEDS: MONTELUKAST SODIUM 10 MG TABLET PO SCH (22:09)
[2019-07-12] MEDS: CYCLOBENZAPRINE HCL 10 MG TABLET PO PRN (22:11)
[2019-07-13] MEDS: NORMAL SALINE 1000 ML 1,000 ML IV PRN ×2 (02:46→19:22)
[2019-07-13] MEDS: OXYCODONE HCL IR 5 MG TABLET PO PRN ×3 (02:46→17:38)
[2019-07-13] MEDS: OXYCODONE-ACETAMINOPHEN 5-325 MG TABLET PO PRN ×3 (02:46→17:38)
[2019-07-13] MEDS: ONDANSETRON HCL INJ/PF 4 MG/2 ML SDV IV PRN ×3 (02:56→21:18)
[2019-07-13] MEDS: CLOPIDOGREL BISULFATE 75 MG TABLET PO SCH (10:18)
[2019-07-13] MEDS: SERTRALINE HCL 50 MG TABLET PO SCH (10:18)
[2019-07-13] MEDS: LISINOPRIL 10 MG TABLET PO SCH (10:18)
[2019-07-13] MEDS: PANTOPRAZOLE SODIUM 40 MG TABLET.DR PO SCH ×2 (10:18→17:38)
[2019-07-13] MEDS: SUCRALFATE 1 GM TABLET PO SCH ×4 (10:19→21:17)
[2019-07-13] MEDS: LIDOCAINE 5% (700 MG) TRANSDERMAL ADH..PATCH TP SCH (10:19)
[2019-07-13] MEDS: LEVOTHYROXINE SODIUM 0.1 MG TABLET PO SCH (10:19)
--- NOTE | 2019-07-13 14:36 | PDOC PROGRESS REPORT ---
Subjective Progress Note for:: 07/13/19 Subjective:: Patient reported episode of nausea and vomiting but no diarrhea so far today. No chest pain or difficulty with breathing. No fever or chills. Reason For Visit: INTRACTABLE NAUSEA/VOMITING,DIARRHEA Physical Exam Vital Signs: Temp Pulse Resp BP Pulse Ox 98.4 F 71 16 141/59 H 99 07/13/19 12:00 07/13/19 12:00 07/13/19 12:00 07/13/19 12:00 07/13/19 12:00 Intake & Output 07/12/19 07/13/19 07/14/19 07:59 06:59 06:59 Intake Total 300 Output Total Balance 300 Physical Exam: General appearance: PRESENT: no acute distress, obese Head exam: PRESENT: atraumatic, normocephalic Eye exam: PRESENT: conjunctiva pink. ABSENT: pallor, scleral icterus Ear exam: PRESENT: normal external ear exam Mouth exam: PRESENT: moist Respiratory exam: PRESENT: clear to auscultation martínez Cardiovascular exam: PRESENT: RRR. ABSENT: diastolic murmur, rubs, systolic murmur GI/Abdominal exam: PRESENT: normal bowel sounds, soft, tenderness - mid gastric region. ABSENT: distended, guarding, mass, organomegaly, rebound Extremities exam: ABSENT: pedal edema Musculoskeletal exam: PRESENT: normal inspection Neurological exam: PRESENT: alert, awake, oriented to person, oriented to place, oriented to time, oriented to situation, CN II-XII grossly intact. ABSENT: motor sensory deficit Psychiatric exam: PRESENT: appropriate affect, normal mood. ABSENT: homicidal ideation, suicidal ideation Skin exam: PRESENT: dry, warm Results Laboratory Results: 07/10/19 16:25 07/10/19 16:25 Impressions: Abdomen/Pelvis CT 07/11/19 00:00 IMPRESSION: No definite acute inflammatory process. Venous Doppler Study 07/11/19 00:00 IMPRESSION: NO EVIDENCE DVT OR SVT IN THE RIGHT LEG. Assessment & Plan - Diagnosis (1) Intractable vomiting Qualifiers: Vomiting type: unspecified Nausea presence: with nausea Qualified Code(s): R11.2 - Nausea with vomiting, unspecified Is this a current diagnosis for this admission?: Yes (2) Dehydration Is this a current diagnosis for this admission?: Yes (3) HTN (hypertension) Qualifiers: Hypertension type: essential hypertension Qualified Code(s): I10 - Essential (primary) hypertension Is this a current diagnosis for this admission?: Yes (4) Hypothyroidism Qualifiers: Hypothyroidism type: unspecified Qualified Code(s): E03.9 - Hypothyroidism, unspecified Is this a current diagnosis for this admission?: Yes - Time Time Spent with patient: 25-34 minutes Medications reviewed and adjusted accordingly: Yes Anticipated discharge: Home Within: Other - Inpatient Certification Based on my medical assessment, after consideration of the patient's com orbidities, presenting symptoms, or acuity I expect that the services needed warrant INPATIENT care.: Yes I certify that my determination is in accordance with my understanding of Medicare's requirements for reasonable and necessary INPATIENT services [42 CFR 412.3e].: Yes Medical Necessity: Significant Comorbidiites Make Outpatient Treatment Too Risky, Need Close Monitoring Due to Risk of Patient Decompensation, Risk of Complication if Not Cared For in Hospital, Risk of Diagnosis Which Will Require Inpatient Eval/Care/Monitoring Post Hospital Care: 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
[2019-07-13] MEDS: CYCLOBENZAPRINE HCL 10 MG TABLET PO PRN (21:17)
[2019-07-13] MEDS: MONTELUKAST SODIUM 10 MG TABLET PO SCH (21:17)
[2019-07-14] MEDS: NORMAL SALINE 1000 ML 1,000 ML IV PRN ×2 (04:49→15:30)
[2019-07-14] MEDS: OXYCODONE HCL IR 5 MG TABLET PO PRN ×3 (04:49→22:20)
[2019-07-14] MEDS: OXYCODONE-ACETAMINOPHEN 5-325 MG TABLET PO PRN (04:50)
[2019-07-14] MEDS: ONDANSETRON HCL INJ/PF 4 MG/2 ML SDV IV PRN ×3 (04:50→21:05)
[2019-07-14] MEDS: LEVOTHYROXINE SODIUM 0.1 MG TABLET PO SCH (05:06)
[2019-07-14] MEDS: LISINOPRIL 10 MG TABLET PO SCH (09:36)
[2019-07-14] MEDS: SERTRALINE HCL 50 MG TABLET PO SCH (09:36)
[2019-07-14] MEDS: LIDOCAINE 5% (700 MG) TRANSDERMAL ADH..PATCH TP SCH (09:36)
[2019-07-14] MEDS: PANTOPRAZOLE SODIUM 40 MG TABLET.DR PO SCH ×2 (09:36→18:33)
[2019-07-14] MEDS: CLOPIDOGREL BISULFATE 75 MG TABLET PO SCH (09:36)
[2019-07-14] MEDS: SUCRALFATE 1 GM TABLET PO SCH ×4 (09:38→21:05)
[2019-07-14] MEDS: MONTELUKAST SODIUM 10 MG TABLET PO SCH (21:05)
[2019-07-14] MEDS ORDERED: PHARMACY COMMUNICATION ORDER MC SCH (22:00)
--- NOTE | 2019-07-14 22:08 | PDOC DISCHARGE SUMMARY ---
Impression - Admit/DC Date/PCP Admission Date/Primary Care Provider: 07/10/19 15:04 IAN MUÑOZ MD Discharge Date: 07/14/19 - Discharge Diagnosis (1) Intractable vomiting Is this a current diagnosis for this admission?: Yes (2) Dehydration Is this a current diagnosis for this admission?: Yes (3) Gastroparesis Is this a current diagnosis for this admission?: Yes - Additional Information Resuscitation Status: Full Code Referrals: IAN MUÑOZ MD [Primary Care Provider] - Home Medications: Bethanechol Chloride [Urecholine 10 mg Tablet] 10 mg PO Q8 07/10/19 Clopidogrel Bisulfate [Plavix 75 mg Tablet] 75 mg PO DAILY 07/10/19 Cyanocobalamin (Vitamin B-12) [Vitamin B-12 Inj 1000 Mcg/1 ml Vial] 1,000 mcg IM .15TH OF THE MONTH 07/10/19 Cyclobenzaprine HCl [Flexeril 10 mg Tablet] 10 mg PO Q8HP PRN 07/10/19 Hydrocodone Bitartrate [Zohydro ER] 40 mg PO Q12 07/10/19 Levothyroxine Sodium [Synthroid 0.1 mg Tablet] 0.1 mg PO Q6AM 07/10/19 Lidocaine [Lidoderm 5% (700 mg) Transdermal Patch] 1 patch TOP DAILY 07/10/19 Montelukast Sodium [Singulair 10 mg Tablet] 10 mg PO DAILY 07/10/19 Oxycodone HCl/Acetaminophen [Percocet 10-325 mg Tablet] 1 tab PO Q6HP PRN 07/10/19 Pantoprazole Sodium [Protonix [address] Tablet] 40 mg PO BID 07/10/19 Sertraline HCl [Zoloft] 100 mg PO DAILY 07/10/19 Sucralfate [Carafate 1 gm Tablet] 1 gm PO QID 07/10/19 Zaleplon [Sonata] 10 mg PO HSP PRN 07/10/19 History of Present Illiness History of Present Illness: VALENTE MUNOZ is a 63 year old female, She came to the office for evaluation of persistent vomiting, not able to keep any food downShe has a history of gastroparesis with multiple hospitalization for the management of intractable vomiting. She was evaluated in the past with CAT scans, EGD, the primary reason for admission is to administer fluid to prevent dehydration because of persistent vomiting and volume loss. I felt opioid could also be a factor in the etiology of this vomiting, she is a chronic pain patient follows with pain management on chronic opioid therapy, she has a penchant for opioid usage, whenever she is vomiting she always prefer to have intravenous Dilaudid, I am trying to dissuade her From this behavior Hospital Course Hospital Course: Patient was admitted for the management of intractable vomiting due to gastroparesis she was admitted for hydration due to dehydration. She was seen by the surgeon, a CAT scan of the abdomen and pelvis was obtained the CAT scan did not demonstrate any acute pathology Physical Exam Vital Signs: Temp Pulse Resp BP Pulse Ox 98.6 F 66 20 156/64 H 96 07/14/19 21:10 07/14/19 21:10 07/14/19 21:10 07/14/19 21:10 07/14/19 21:10 Intake & Output 07/13/19 07/14/19 07/15/19 06:59 06:59 06:59 Intake Total 2082 1000 Output Total 600 1650 Balance 1482 -650 Weight 89.7 kg General appearance: PRESENT: no acute distress Eye exam: PRESENT: PERRLA Respiratory exam: PRESENT: clear to auscultation martínez Cardiovascular exam: PRESENT: +S1, +S2 GI/Abdominal exam: PRESENT: soft Neurological exam: PRESENT: alert Results Laboratory Results: WBC 7.9 10^3/uL (4.0-10.5) 07/10/19 16:25 RBC 5.80 10^6/uL (3.72-5.28) H 07/10/19 16:25 Hgb 14.6 g/dL (12.0-15.5) 07/10/19 16:25 Hct 43.2 % (36.0-47.0) 07/10/19 16:25 MCV 75 fl (80-97) L 07/10/19 16:25 MCH 25.2 pg (27.0-33.4) L 07/10/19 16:25 MCHC 33.8 g/dL (32.0-36.0) 07/10/19 16:25 RDW 16.3 % (11.5-14.0) H 07/10/19 16:25 Plt Count 254 10^3/uL (150-450) 07/10/19 16:25 Sodium 139.3 mmol/L (137-145) 07/10/19 16:25 Potassium 4.4 mmol/L (3.6-5.0) 07/10/19 16:25 Chloride 105 mmol/L (98-107) 07/10/19 16:25 Carbon Dioxide 21 mmol/L (22-30) L 07/10/19 16:25 Anion Gap 13 (5-19) 07/10/19 16:25 BUN 13 mg/dL (7-20) 07/10/19 16:25 Creatinine 1.02 mg/dL (0.52-1.25) 07/10/19 16:25 Est GFR ( Amer) > 60 (>60) 07/10/19 16:25 Est GFR (MDRD) Non-Af 54 (>60) L 07/10/19 16:25 Glucose 98 mg/dL (75-110) 07/10/19 16:25 Calcium 9.8 mg/dL (8.4-10.2) 07/10/19 16:25 Impressions: Abdomen/Pelvis CT 07/11/19 00:00 IMPRESSION: No definite acute inflammatory process. Venous Doppler Study 07/11/19 00:00 IMPRESSION: NO EVIDENCE DVT OR SVT IN THE RIGHT LEG. Stroke Is this a Stroke Patient?: No Acute Heart Failure - Is this a Heart Failure Patient?: No
[2019-07-15] MEDS: NORMAL SALINE 1000 ML 1,000 ML IV PRN (01:45)
[2019-07-15] MEDS: ONDANSETRON HCL INJ/PF 4 MG/2 ML SDV IV PRN ×2 (01:52→05:50)
[2019-07-15] MEDS: LEVOTHYROXINE SODIUM 0.1 MG TABLET PO SCH (05:00)
[2019-07-15] MEDS: OXYCODONE HCL IR 5 MG TABLET PO PRN (05:06)
[2019-07-15] MEDS: OXYCODONE-ACETAMINOPHEN 5-325 MG TABLET PO PRN (05:06)
[2019-07-15] MEDS: SUCRALFATE 1 GM TABLET PO SCH (07:38)
[2019-07-15 08:13] VITALS: BP 151/83
== END 2019-07-15 08:30 | disposition home or self-care (01) ==
LOC: 4S 15:04
PROVIDERS: ADMIT Internal Medicine; ATTEND Internal Medicine
DX: R11.2 Nausea with vomiting, unspecified (principal); E86.0 Dehydration; K31.84 Gastroparesis; M32.9 Systemic lupus erythematosus, unspecified; M79.7 Fibromyalgia; I25.10 Atherosclerotic heart disease of native coronary artery without angina pectoris; M19.90 Unspecified osteoarthritis, unspecified site; Z79.899 Other long term (current) drug therapy; K21.9 Gastro-esophageal reflux disease without esophagitis; E03.9 Hypothyroidism, unspecified; J44.9 Chronic obstructive pulmonary disease, unspecified; E66.9 Obesity, unspecified; I10 Essential (primary) hypertension; G89.4 Chronic pain syndrome; E78.5 Hyperlipidemia, unspecified; Z87.19 Personal history of other diseases of the digestive system; Z79.02 Long term (current) use of antithrombotics/antiplatelets; Z85.41 Personal history of malignant neoplasm of cervix uteri; Z85.43 Personal history of malignant neoplasm of ovary; Z95.5 Presence of coronary angioplasty implant and graft; Z90.49 Acquired absence of other specified parts of digestive tract; Z87.891 Personal history of nicotine dependence; Z96.653 Presence of artificial knee joint, bilateral; Z96.643 Presence of artificial hip joint, bilateral; Z98.1 Arthrodesis status
CPT/HCPCS: 36415; 85027; 80048; 93971; 74176; G0378 ×6; G0379; A9270 ×51; J2405 ×6; J7030 ×6; J1642; J3490

== ENCOUNTER 2020-05-27 11:46 | Inpatient (IN) | payer MEDICARE, OTHER ==
[2020-05-27] MEDS ORDERED: RINGERS SOLUTION,LACTATED 1,000 ML IV ONE ×2 (13:04→16:59)
--- NOTE | 2020-05-27 14:34 | ER Document Report ---
Entered by NEHA CUNNINGHAM SCRIBE 05/27/20 1303 Acting as scribe for:FATEMEH LARKIN MD ED General - General Chief Complaint: Weakness Stated Complaint: WEAKNESS Time Seen by Provider: 05/27/20 12:58 Primary Care Provider: IAN MUÑOZ MD [Primary Care Provider] - Follow up as needed Mode of Arrival: Medic Information source: Relative Notes: This 64 year old male patient brought in by EMS from home presents to the ED today with complaints of altered mental status. Relative at bedside reports that the patient was recently diagnosed with pyelonephritis and finished a course of antibiotics on 05/24. Relative states that the patient has not gotten any better with the antibiotic treatment and has actually become gradually lethargic for the last x1.5 days. She states that the patient had a telehealth appointment with her PCP this morning and was altered, so they were advised to call for EMS and come to the ED for evaluation. Relative mentions that the patient wears a Fentanyl patch for arthritis. TRAVEL OUTSIDE OF THE [place] IN LAST 30 DAYS: No - Related Data Allergies/Adverse Reactions: irbesartan [From Avapro] Allergy (Severe, Verified 04/19/19 01:21) swelling of face nitrofurantoin macrocrystalline [From Macrobid] Allergy (Severe, Verified 04/19/19 01:21) Generalized edema Penicillins Allergy (Severe, Verified 04/19/19 01:21) eyes swelled pregabalin [From Lyrica] Allergy (Severe, Verified 04/19/19 01:21) Equilibrium Issues venom-honey bee [bee venom (honey bee)] Allergy (Verified 04/19/19 01:21) Anaphylaxis Past Medical History - General Information source: [facility] Records - Social History Smoking Status: Never Smoker Cigarette use (# per day): No Chew tobacco use (# tins/day): No Smoking Education Provided: No Lives with: Family Family History: Arthritis, COPD, Hyperlipidemia, Hypertension, Malignancy, Th yroid Disfunction - Past Medical History Cardiac Medical History: Reports: Hx Congestive Heart Failure, Hx Coronary Artery Disease, Hx DVT, Hx Heart Attack, Hx Hypercholesterolemia, Hx Hypertension, Hx Pulmonary Embolism Pulmonary Medical History: Reports: Hx Bronchitis, Hx COPD Endocrine Medical History: Reports: Hx Hypothyroidism Renal/ Medical History: Reports: Hx Ovarian Cysts Malignancy Medical History: Reports: Hx Cervical Cancer, Hx Ovarian Cancer GI Medical History: Reports: Hx Gastroesophageal Reflux Disease, Hx Hiatal Hernia - Repaired, Hx Irritable Bowel, Hx Colonoscopy, Hx Endoscopy Musculoskeletal Medical History: Reports Hx Arthritis, Reports Hx Fibromyalgia - Lupus, Reports Hx Musculoskeletal Deformity, Reports Hx Musculoskeletal Trauma, Reports Hx Systemic Lupus Erythematosus Skin Medical History: Reports Hx Cellulitis - Recently treated, right breast Psychiatric Medical History: Reports: Hx Anxiety, Hx Depression Traumatic Medical History: Reports: Hx Fractures - Knee and hip Infectious Medical History: Reports: Hx C-Diff - Was negative in October2015. Not yet successfully collected stool, Hx MRSA, Hx VRE Past Surgical History: Reports: Hx Appendectomy, Hx Bowel Surgery - Polyps, adhesions, Hx Cardiac Catheterization, Hx Section, Hx Cholecystectomy, Hx Coronary Stent - x3, Hx Genitourinary Surgery - bladder sling, Hx Herniorrhaphy, Hx Hysterectomy, Hx Orthopedic Surgery - Bilateral knee replacements, hip replacement, Hx Tonsillectomy - Immunizations Immunizations up to date: Yes Hx Diphtheria, Pertussis, Tetanus Vaccination: No Hx Pneumococcal Vaccination: 05/20/11 Review of Systems - Review of Systems -: Yes ROS unobtainable due to patient's medical condition - Altered mental status Physical Exam - Vital signs Vitals: Pulse Resp BP Pulse Ox 66 18 103/67 98 05/27/20 11:58 05/27/20 11:58 05/27/20 11:58 05/27/20 11:58 Interpretation: Normal - General General appearance: Other - Somnolent, but easily arousable In distress: None - HEENT Notes: Head: Normocephalic, Atraumatic Eyes: Normal Pupils: 3 mm bilaterally - Respiratory Respiratory status: No respiratory distress Chest status: Nontender Breath sounds: Normal Chest palpation: Normal - Cardiovascular Rhythm: Regular Heart sounds: Normal auscultation Murmur: No Friction rub: No Gallop: None auscultated - Abdominal Inspection: Obese Distension: No distension Bowel sounds: Normal Tenderness: Nontender - Firm Organomegaly: No organomegaly - Back Back: Normal, Nontender - Extremities General upper extremity: Normal inspection General lower extremity: Normal inspection. No: Edema - Neurological Neuro grossly intact: Yes - Patient is somnolent, but easily arousable - Skin Skin Temperature: Warm Skin Moisture: Dry Skin Color: Normal Course - Re-evaluation Re-evalutation: 05/27/20 17:54 The patient was evaluated during the global COVID-19 pandemic and that diagnosis was suspected/considered upon their initial presentation. Their evaluation, treatment and testing was consistent with current guidelines for patients who present with complaints or symptoms that may be related to COVID-19. 05/27/20 17:55 Patient's most recent blood pressure is now up to 131/104 with a heart rate of 67. - Vital Signs Vital signs: Temp Pulse Resp BP Pulse Ox 97.4 F 66 17 101/54 L 96 05/27/20 12:04 05/27/20 11:58 05/27/20 16:12 05/27/20 16:12 05/27/20 16:12 - Laboratory Result Diagrams: 05/27/20 16:14 05/27/20 16:14 Laboratory results interpreted by me: 05/27/20 05/27/20 05/27/20 14:10 16:14 16:14 WBC 10.6 H Hgb 11.5 L Hct 32.4 L MCV 74 L MCH 26.0 L RDW 16.3 H Lymph % (Auto) 5.9 L Absolute Neuts (auto) 9.3 H Seg Neutrophils % 87.4 H Sodium 115.7 L* Potassium 3.4 L Chloride 85 L Carbon Dioxide 19 L BUN 52 H Creatinine 3.81 H Est GFR ( Amer) 14 L Est GFR (MDRD) Non-Af 12 L Calcium 8.0 L Alkaline Phosphatase 140 H Creatine Kinase 367 H Total Protein 6.2 L Urine Blood LARGE H - Diagnostic Test Radiology reviewed: Image reviewed, Reports reviewed - Chest x-ray does not show acute radiographic abnormalities. - EKG Interpretation by Me EKG shows normal: Sinus rhythm, [place], Intervals, QRS Complexes. abnormal: ST-T Waves - Diffuse borderline T abnormalities Rate: Normal - 64 Rhythm: NSR Voltage: Decreased voltage, Throughout When compared to previous EKG there are: Changes noted - Consults Dr. Muñoz Time consulted: 17:20 Consulted provider: will see as inpatient Critical Care Note - Critical Care Note Total time excluding time spent on procedures (mins): 40 Comments: At least 40 minutes spent evaluating the patient, reviewing prior records, speaking with her family members. Re-evaluations as we hydrated her to improve her blood pressure, and her sensorium. Time spent discussing the case with her primary care and getting the admission done. Discharge - Discharge Clinical Impression: Acute kidney injury, Hyponatremia, Hypokalemia Mental status change Qualifiers: Altered mental status type: unspecified Qualified Code(s): R41.82 - Altered mental status, unspecified Anemia Qualifiers: Anemia type: iron deficiency Iron deficiency anemia type: unspecified iron deficiency Qualified Code(s): D50.9 - Iron deficiency anemia, unspecified Hypotension Qualifiers: Hypotension type: unspecified hypotension type Qualified Code(s): I95.9 - Hypotension, unspecified Condition: Fair Disposition: ADMITTED INPATIENT Admitting Provider: [facility] Admitted: [facility] Referrals: IAN MUÑOZ MD [Primary Care Provider] - Follow up as needed I personally performed the services described in the documentation, reviewed and edited the documentation which was dictated to the scribe in my presence, and it accurately records my words and actions.
[2020-05-27 14:40] LABS: APPEARANCE,URINE CLEAR; BILIRUBIN,URINE NEGATIVE (NEGATIVE); COLOR,URINE YELLOW; GLUCOSE, URINE NEGATIVE (NEGATIVE); KETONES,URINE NEGATIVE (NEGATIVE); LEUKOCYTE ESTERASE,URINE NEGATIVE (NEGATIVE); NITRITE,URINE NEGATIVE (NEGATIVE); PROTEIN,URINE NEGATIVE (NEGATIVE); URINE SPECIFIC GRAVITY 1.011; UROBILINOGEN,URINE NEGATIVE mg/dL (<2.0)
--- NOTE | 2020-05-27 15:59 | RADIOLOGY REPORT (SQ) ---
EXAM DESCRIPTION: CHEST SINGLE VIEW IMAGES COMPLETED DATE/TIME: 05/27/2020 3:19 pm REASON FOR STUDY: lethargic COMPARISON: 06/11/2019 EXAM PARAMETERS: NUMBER OF VIEWS: One view. TECHNIQUE: Single frontal radiographic view of the chest acquired. RADIATION DOSE: NA LIMITATIONS: None. FINDINGS: LUNGS AND PLEURA: No opacities, masses or pneumothorax. No pleural effusion. MEDIASTINUM AND HILAR STRUCTURES: No masses. Contour normal. HEART AND VASCULAR STRUCTURES: Heart normal in size. Normal vasculature. BONES: No acute findings. HARDWARE: None in the chest. OTHER: Stable position of right-sided port. IMPRESSION: NO ACUTE RADIOGRAPHIC FINDING IN THE CHEST. TECHNICAL DOCUMENTATION: JOB ID: [id number] 2010 [id number] All Rights Reserved Reading location - IP/workstation name: [email or web address]
[2020-05-27 16:32] LABS: ABSOLUTE LYMPHOCYTES (AUTO) 0.6 10^3/uL (0.5-4.7); ABSOLUTE MONOCYTES (AUTO) 0.7 10^3/uL (0.1-1.4); ABSOLUTE NEUT (AUTO) 9.3 10^3/uL (1.7-8.2); BASOPHILS % (AUTO) 0.2 % (0-2); EOSINOPHILS % (AUTO) 0.3 % (0-6); HEMATOCRIT 32.4 % (36.0-47.0); HEMOGLOBIN 11.5 g/dL (12.0-15.5); LYMPHOCYTES % (AUTO) 5.9 % (13-45); MEAN CORPUSCULAR HGB CONC 35.3 g/dL (32.0-36.0); MEAN CORPUSCULAR VOLUME 74 fl (80-97); MONOCYTES % (AUTO) 6.2 % (3-13); PLATELET COUNT 322 10^3/uL (150-450); RED CELL DISTRIBUTION WIDTH 16.3 % (11.5-14.0); SEGMENTED NEUTROPHILS % (AUTO) 87.4 % (42-78); TOTAL CELLS COUNTED % (AUTO) 100 %; WHITE BLOOD COUNT 10.6 10^3/uL (4.0-10.5)
[2020-05-27 16:49] LABS: ALBUMIN 3.7 g/dL (3.5-5.0); ALKALINE PHOSPHATASE 140 U/L (38-126); ANION GAP 12 (5-19); ASPARTATE AMINO TRANSFERASE 26 U/L (14-36); BILIRUBIN,DIRECT 0.4 mg/dL (0.0-0.4); BILIRUBIN,TOTAL 0.7 mg/dL (0.2-1.3); BLOOD UREA NITROGEN 52 mg/dL (7-20); CARBON DIOXIDE 19 mmol/L (22-30); CHLORIDE 85 mmol/L (98-107); CREATINE KINASE 367 U/L (30-135); GLUCOSE 98 mg/dL (75-110); POTASSIUM 3.4 mmol/L (3.6-5.0); TOTAL PROTEIN 6.2 g/dL (6.3-8.2)
--- NOTE | 2020-05-27 18:32 | EKG REPORT ---
SEVERITY:- BORDERLINE ECG - SINUS RHYTHM LOW VOLTAGE THROUGHOUT BORDERLINE T ABNORMALITIES, DIFFUSE LEADS : Confirmed by: Ellen Gutierrez 27-May-2020 18:31:21
[2020-05-27] MEDS ORDERED: NORMAL SALINE 1000 ML 1,000 ML IV PRN (21:37)
--- NOTE | 2020-05-27 21:42 | PDOC H&P ---
History of Present Illness Admission Date/PCP: 05/27/20 18:37 IAN MUÑOZ MD History of Present Illness: VALENTE MUNOZ is a 64 year old female,I had a telemedicine encounter with the patient daughter because she has altered mental status, I advised the daughter to call 911 for her to be transported to the emergency room for evaluation. The emergency room she was found to have profound hyponatremia, serum sodium was 115, the creatinine was 3.81. She has a history of SIADH ,Patient could not contribute to the history because she was extremely stuporous and confused. I saw patient on the floor, she has erythema and swelling of the right face that suggest erysipelas Past Medical History Cardiac Medical History: Reports: Coronary Artery Disease, DVT, Myocardial Infarction, Hyperlipidema, Hypertension, Pulmonary Embolism Pulmonary Medical History: Reports: Bronchitis, Chronic Obstructive Pulmonary Disease (COPD) Endocrine Medical History: Reports: Hypothyroidism Malignancy Medical History: Reports: Cervical Cancer GI Medical History: Reports: Gastroesophageal Reflux Disease, Hiatal Hernia - Repaired Musculoskeltal Medical History: Reports: Arthritis, Fibromyalgia - Lupus Psychiatric Medical History: Reports: Depression Hematology: Reports: Anemia Infectious Medical History: Reports: Clostridium Difficile - Was negative in October2015. Not yet successfully collected stool, Methicillin-Resistant Staph Aureus, Vancomycin-Resistant Enterococci Past Surgical History Past Surgical History: Reports: Appendectomy, Cardiac Catheterization, Section, Cholecystectomy, Coronary Stent - x3, Herniorrhaphy, Hysterectomy, Orthopedic Surgery - Bilateral knee replacements, hip replacement, Tonsillectomy Social History Lives with: Family Smoking Status: Never Smoker Frequency of Alcohol Use: None Hx Recreational Drug Use: No Drugs: None Hx Prescription Drug Abuse: No Family History Family History: Arthritis, COPD, Hyperlipidemia, Hypertension, Malignancy, Thyroid Disfunction Parental Family History Reviewed: Yes Children Family History Reviewed: Yes Sibling(s) Family History Reviewed.: Yes Medication/Allergy Home Medications: Clopidogrel Bisulfate [Plavix 75 mg Tablet] 75 mg PO DAILY 07/10/19 Cyanocobalamin (Vitamin B-12) [Vitamin B-12 Inj 1000 Mcg/1 ml Vial] 1,000 mcg IM [id number] 07/10/19 Cyclobenzaprine HCl [Flexeril 10 mg Tablet] 10 mg PO Q8H 07/10/19 Levothyroxine Sodium [Synthroid 0.1 mg Tablet] 0.1 mg PO Q6AM 07/10/19 Montelukast Sodium [Singulair 10 mg Tablet] 10 mg PO DAILY 07/10/19 Sertraline HCl [Zoloft] 100 mg PO DAILY 07/10/19 Sucralfate [Carafate 1 gm Tablet] 1 gm PO QID 07/10/19 Apixaban [Eliquis 5 mg Tablet] 5 mg PO BID 05/27/20 Atorvastatin Calcium [Lipitor 40 mg Tablet] 40 mg PO QHS 05/27/20 Fentanyl [Duragesic 25 Mcg/Hr Transdermal Patch] 1 each TD Q3D 05/27/20 Gabapentin [Neurontin] 600 mg PO TID 05/27/20 Lemborexant [Dayvigo] 10 mg PO QHS 05/27/20 Losartan/Hydrochlorothiazide [Losartan-Hctz 100-25 mg Tab] 1 each PO DAILY 05/27/20 Ranolazine [Ranolazine ER] 500 mg PO BID 05/27/20 Allergies/Adverse Reactions: irbesartan [From Avapro] Allergy (Severe, Verified 04/19/19 01:21) swelling of face nitrofurantoin macrocrystalline [From Macrobid] Allergy (Severe, Verified 0 04/19/19 01:21) Generalized edema Penicillins Allergy (Severe, Verified 04/19/19 01:21) eyes swelled pregabalin [From Lyrica] Allergy (Severe, Verified 04/19/19 01:21) Equilibrium Issues venom-honey bee [bee venom (honey bee)] Allergy (Verified 04/19/19 01:21) Anaphylaxis Review of Systems ROS unobtainable: Due to mental status Physical Exam Vital Signs: Temp Pulse Resp BP Pulse Ox 98.2 F 66 14 107/54 L 95 05/27/20 20:39 05/27/20 11:58 05/27/20 20:37 05/27/20 20:37 05/27/20 20:37 Intake & Output 05/26/20 05/27/20 05/28/20 06:59 06:59 06:59 Intake Total 1999 Balance 1999 Weight 90.718 kg General appearance: PRESENT: no acute distress, well-developed, well-nourished Head exam: PRESENT: atraumatic, normocephalic Eye exam: PRESENT: PERRLA Ear exam: PRESENT: normal external ear exam Mouth exam: PRESENT: moist, tongue midline Neck exam: PRESENT: full ROM Respiratory exam: PRESENT: clear to auscultation martínez Cardiovascular exam: PRESENT: RRR, +S1, +S2 Pulses: PRESENT: normal dorsalis pedis pul, +2 pedal pulses bilateral GI/Abdominal exam: PRESENT: normal bowel sounds, soft Rectal exam: PRESENT: deferred Neurological exam: PRESENT: alert, awake, oriented to person, oriented to place, oriented to time, oriented to situation, CN II-XII grossly intact Psychiatric exam: PRESENT: appropriate affect, normal mood Skin exam: PRESENT: dry, erythema - erythema ,swelling ,warm of the left face, intact, warm Results Laboratory Results: 05/27/20 16:14 05/27/20 16:14 05/27/20 05/27/20 05/27/20 14:10 16:14 16:14 WBC 10.6 H RBC 4.40 Hgb 11.5 L Hct 32.4 L MCV 74 L MCH 26.0 L MCHC 35.3 RDW 16.3 H Plt Count 322 Seg Neutrophils % 87.4 H Sodium 115.7 L* Potassium 3.4 L Chloride 85 L Carbon Dioxide 19 L Anion Gap 12 BUN 52 H Creatinine 3.81 H Est GFR ( Amer) 14 L Glucose 98 Lactic Acid Calcium 8.0 L Magnesium 2.2 Total Bilirubin 0.7 AST 26 Alkaline Phosphatase 140 H Total Protein 6.2 L Albumin 3.7 Urine Color YELLOW Urine Appearance CLEAR Urine pH 5.0 Ur Specific [place] 1.011 Urine Protein NEGATIVE Urine Glucose (UA) NEGATIVE Urine Ketones NEGATIVE Urine Blood LARGE H Urine Nitrite NEGATIVE Ur Leukocyte Esterase NEGATIVE Urine WBC (Auto) 3 Urine RBC (Auto) 31 05/27/20 17:15 WBC RBC Hgb Hct MCV MCH MCHC RDW Plt Count Seg Neutrophils % Sodium Potassium Chloride Carbon Dioxide Anion Gap BUN Creatinine Est GFR ( Amer) Glucose Lactic Acid 0.7 Calcium Magnesium Total Bilirubin AST Alkaline Phosphatase Total Protein Albumin Urine Color Urine Appearance Urine pH Ur Specific [place] Urine Protein Urine Glucose (UA) Urine Ketones Urine Blood Urine Nitrite Ur Leukocyte Esterase Urine WBC (Auto) Urine RBC (Auto) 05/27/20 05/27/20 16:14 16:14 Creatine Kinase 367 H Troponin I < 0.012 Impressions: Chest X-Ray 05/27/20 13:04 IMPRESSION: NO ACUTE RADIOGRAPHIC FINDING IN THE CHEST. Assessment & Plan - Diagnosis (1) Hyponatremia Is this a current diagnosis for this admission?: Yes Plan: She has severe hyponatremia, history of SIADH, slowly replace sodium (2) Erysipelas Is this a current diagnosis for this admission?: Yes Plan: Start IV antibiotic clindamycin (3) Acute kidney injury Is this a current diagnosis for this admission?: Yes Plan: Kidney ultrasound demonstrated cortical thinning of the kidneys, suggesting CKD, Acute kidney injury with underlying CKD (4) Metabolic encephalopathy Is this a current diagnosis for this admission?: Yes - Time Time Spent: Greater than 70 Minutes Medications reviewed and adjusted accordingly: Yes Anticipated Discharge Disposition: Home, Self Care Anticipated Discharge Timeframe: > 7 days - Inpatient Certification Based on my medical assessment, after consideration of the patient's comorbidities, presenting symptoms, or acuity I expect that the services needed warrant INPATIENT care.: No I certify that my determination is in accordance with my understanding of Medicare's requirements for reasonable and necessary INPATIENT services [42 CFR 412.3e].: No
[2020-05-27] MEDS ORDERED: FENTANYL 25 MCG/HR PATCH.TD72 TD SCH (21:45)
[2020-05-27] MEDS ORDERED: CYANOCOBALAMIN (VITAMIN B-12) INJ 1000 MCG/1 ML VIAL IM SCH (21:45)
[2020-05-27] MEDS ORDERED: (PENDING PHARMACY ID) (Losartan/Hydrochlorothiazide [Losartan-Hctz 100-25 Mg Tab] 1 EACH) PO SCH (21:45)
[2020-05-27] MEDS ORDERED: HEPARIN SOD (PORCINE) 5,000 UNIT/ML 1 ML VIAL SUBCUT SCH (22:00)
[2020-05-27] MEDS ORDERED: LEMBOREXANT 10 MG PO SCH (22:00)
[2020-05-27] MEDS: SUCRALFATE 1 GM TABLET PO SCH (22:42)
[2020-05-27] MEDS: ATORVASTATIN CALCIUM 40 MG TABLET PO SCH (22:44)
[2020-05-27] MEDS: RANOLAZINE 500 MG TAB.SR.12H PO SCH (22:44)
[2020-05-27] MEDS: CLOPIDOGREL BISULFATE 75 MG TABLET PO SCH (22:44)
[2020-05-27] MEDS: APIXABAN 5 MG TABLET PO SCH (22:45)
[2020-05-27] MEDS: MONTELUKAST SODIUM 10 MG TABLET PO SCH (22:45)
[2020-05-27 23:10] LABS: FREE T4 (FREE THYROXINE) 1.4 ng/dL (0.78-2.19)
[2020-05-27 23:13] LABS: PROTHROMBIN TIME 18.3 SEC (11.4-15.4)
[2020-05-27 23:14] LABS: PARTIAL THROMBOPLASTIN TIME 49.2 SEC (23.5-35.8)
[2020-05-27] MEDS ORDERED: DIPHENHYDRAMINE HCL 50 MG/ML VIAL ONE (23:19)
[2020-05-27 23:24] LABS: THYROID STIMULATING HORMONE 0.51 uIU/mL (0.47-4.68)
[2020-05-27 23:34] LABS: AMYLASE 49 U/L (30-110); BLOOD UREA NITROGEN 53 mg/dL (7-20); CALCIUM 8.6 mg/dL (8.4-10.2); CARBON DIOXIDE 21 mmol/L (22-30); CHLORIDE 83 mmol/L (98-107); GLUCOSE 92 mg/dL (75-110); PHOSPHORUS 5.5 mg/dL (2.5-4.5); POTASSIUM 3.4 mmol/L (3.6-5.0)
[2020-05-27 23:36] LABS: ANION GAP 12 (5-19)
[2020-05-27 23:45] LABS: CREATINE KINASE MB 7.03 ng/mL (<4.55)
[2020-05-27 23:46] LABS: TROPONIN I < 0.012 ng/mL
[2020-05-28] MEDS: DIPHENHYDRAMINE HCL 50 MG/ML VIAL IV PRN ×2 (00:12→06:18)
[2020-05-28 04:04] LABS: URINE AMPHETAMINES SCREEN NEGATIVE; URINE BARBITURATES SCREEN NEGATIVE; URINE BENZODIAZEPINES SCREEN NEGATIVE; URINE COCAINE SCREEN NEGATIVE; URINE MARIJUANA (THC) SCREEN NEGATIVE; URINE METHADONE SCREEN NEGATIVE; URINE PHENCYCLIDINE SCREEN NEGATIVE
[2020-05-28] MEDS: LEVOTHYROXINE SODIUM 0.1 MG TABLET PO SCH (06:14)
[2020-05-28] MEDS: GABAPENTIN 300 MG CAPSULE PO SCH ×3 (06:14→21:23)
[2020-05-28 06:43] LABS: ALBUMIN 3.8 g/dL (3.5-5.0); ALKALINE PHOSPHATASE 131 U/L (38-126); ASPARTATE AMINO TRANSFERASE 33 U/L (14-36); BILIRUBIN,DIRECT 0.5 mg/dL (0.0-0.4); BILIRUBIN,TOTAL 0.8 mg/dL (0.2-1.3); CHOLESTEROL 161.22 mg/dL (0-200); TOTAL PROTEIN 6.3 g/dL (6.3-8.2); TRIGLYCERIDES 152 mg/dL (<150)
[2020-05-28 06:45] LABS: HEMATOCRIT 32.4 % (36.0-47.0); HEMOGLOBIN 11.3 g/dL (12.0-15.5); MEAN CORPUSCULAR HEMOGLOBIN 25.7 pg (27.0-33.4); MEAN CORPUSCULAR HGB CONC 34.9 g/dL (32.0-36.0); MEAN CORPUSCULAR VOLUME 74 fl (80-97); PLATELET COUNT 313 10^3/uL (150-450); RED CELL DISTRIBUTION WIDTH 15.8 % (11.5-14.0); WHITE BLOOD COUNT 11.5 10^3/uL (4.0-10.5)
[2020-05-28 06:54] LABS: CREATINE KINASE MB 6.58 ng/mL (<4.55); DIRECT LDL 76 mg/dL (<100)
[2020-05-28 06:55] LABS: VLDL CHOLESTEROL 30.4 mg/dL (10-31)
[2020-05-28 07:00] LABS: TROPONIN I < 0.012 ng/mL
[2020-05-28 07:01] LABS: ABSOLUTE MONOCYTES # (MANUAL) 0.3 10^3/uL (0.1-1.4); BASOPHILS % (MANUAL) 0 % (0-2); EOSINOPHILS % (MANUAL) 0 % (0-6); LYMPHOCYTES % (MANUAL) 9 % (13-45); MONOCYTES % (MANUAL) 3 % (3-13); SEGMENTED NEUTROPHILS % (MAN) 88 % (42-78); TOTAL CELLS COUNTED 100
[2020-05-28 07:04] LABS: ANISOCYTOSIS SLIGHT; HYPOCHROMASIA SLIGHT; PLATELET COMMENT ADEQUATE; TOXIC GRANULATION SLIGHT
[2020-05-28] MEDS ORDERED: NORMAL SALINE 1000 ML 1,000 ML IV PRN (08:12)
[2020-05-28 08:32] LABS: ALBUMIN 3.7 g/dL (3.5-5.0); ALKALINE PHOSPHATASE 132 U/L (38-126); ANION GAP 15 (5-19); ASPARTATE AMINO TRANSFERASE 33 U/L (14-36); BILIRUBIN,DIRECT 0.5 mg/dL (0.0-0.4); BILIRUBIN,TOTAL 0.8 mg/dL (0.2-1.3); BLOOD UREA NITROGEN 56 mg/dL (7-20); CALCIUM 8.3 mg/dL (8.4-10.2); CARBON DIOXIDE 16 mmol/L (22-30); CHLORIDE 85 mmol/L (98-107); GLUCOSE 71 mg/dL (75-110); POTASSIUM 3.4 mmol/L (3.6-5.0); TOTAL PROTEIN 6.2 g/dL (6.3-8.2)
[2020-05-28] MEDS ORDERED: HYDROCHLOROTHIAZIDE 25 MG TABLET PO SCH (10:00)
[2020-05-28] MEDS: NYSTATIN/TRIAMCIN CREAM 15 GM TP SCH (10:00)
--- NOTE | 2020-05-28 10:26 | RADIOLOGY REPORT (SQ) ---
EXAM DESCRIPTION: CT HEAD WITHOUT IMAGES COMPLETED DATE/TIME: 05/28/2020 9:54 am REASON FOR STUDY: altered mental status COMPARISON: CT of the head without contrast from 11/05/2017. TECHNIQUE: Axial images acquired through the brain without intravenous contrast. Images reviewed wi th bone, brain and subdural windows. Additional sagittal and coronal reconstructions were generated. Images stored on PACS. All CT scanners at this facility use dose modulation, iterative reconstruction, and/or weight based d osing when appropriate to reduce radiation dose to as low as reasonably achievable (ALARA). [facility]: Dose Right [facility]: CareDose [facility]: Dose Right [facility]: Teradose 4D [facility]: LED Light Sense RADIATION DOSE: CT Rad equipment meets quality standard of care and radiation dose reduction techniq ues were employed. CTDIvol: 48.6 mGy. DLP: 904 mGy-cm. LIMITATIONS: None. FINDINGS: There is no acute intracranial hemorrhage, vascular territorial infarct, extra-axial fluid collection, mass effect or midline shift. The metzger-white matter differentiation is preserved. The caliber of the ventricles is concordant with the degree of sulcation. There is no effacement of the cerebral sulci or basal subarachnoid cisterns. The globes are aphakic. The orbits are intact. The paranasal sinuses are clear. There is no fractu re of the calvarium. IMPRESSION: No acute intracranial abnormality. EVIDENCE OF ACUTE STROKE: NO. COMMENT: Quality ID # [id number]: Final reports with documentation of one or more dose reduction techniques (e.g., Automated exposure control, adjustment of the mA and/or kV according to patient size, use of iterative reconstruction technique) TECHNICAL DOCUMENTATION: JOB ID: [id number] 2010 [employer]- All Rights Reserved Reading location - IP/workstation name: [email or web address]
[2020-05-28 11:57] LABS: TROPONIN I < 0.012 ng/mL
[2020-05-28] MEDS: APIXABAN 5 MG TABLET PO SCH ×2 (12:11→18:22)
[2020-05-28] MEDS: SUCRALFATE 1 GM TABLET PO SCH ×4 (12:11→21:23)
[2020-05-28] MEDS: LOSARTAN POTASSIUM 50 MG TABLET PO SCH (12:11)
[2020-05-28] MEDS: SERTRALINE HCL 50 MG TABLET PO SCH (12:12)
[2020-05-28] MEDS: CLOPIDOGREL BISULFATE 75 MG TABLET PO SCH (12:12)
[2020-05-28] MEDS: RANOLAZINE 500 MG TAB.SR.12H PO SCH ×2 (12:12→18:23)
[2020-05-28] MEDS: MONTELUKAST SODIUM 10 MG TABLET PO SCH (12:12)
[2020-05-28] MEDS: CLINDAMYCIN 300 MG/D5W RTU 300 MG/50 ML RTUPB IV SCH ×2 (14:00→21:21)
--- NOTE | 2020-05-28 18:13 | RADIOLOGY REPORT (SQ) ---
EXAM DESCRIPTION: U/S RETROPERITON (RENAL/AORTA) IMAGES COMPLETED DATE/TIME: 05/28/2020 5:50 pm REASON FOR STUDY: acute kidney injury COMPARISON: 03/16/2018 TECHNIQUE: Dynamic and static grayscale images acquired of the kidneys and bladder and recorded on P ACS. Additional selected color Doppler and spectral images recorded. LIMITATIONS: None. FINDINGS: RIGHT KIDNEY: Normal size, 10.3 cm. Cortical thinning. No suspicious masses. No calcifi cations. No hydronephrosis. LEFT KIDNEY: Normal size, 10.1 cm. Cortical thinning. No suspicious masses. No calcifications. N o hydronephrosis. BLADDER: No masses. OTHER FINDINGS: No other significant finding. IMPRESSION: Cortical thinning bilaterally. No other significant finding. TECHNICAL DOCUMENTATION: JOB ID: [id number] 2010 [employer]- All Rights Reserved Reading location - IP/workstation name: [email or web address]
[2020-05-28] MEDS: ATORVASTATIN CALCIUM 40 MG TABLET PO SCH (21:23)
[2020-05-29] MEDS: GABAPENTIN 300 MG CAPSULE PO SCH (05:14)
[2020-05-29] MEDS: CLINDAMYCIN 300 MG/D5W RTU 300 MG/50 ML RTUPB IV SCH ×3 (05:14→21:24)
[2020-05-29] MEDS: LEVOTHYROXINE SODIUM 0.1 MG TABLET PO SCH (05:14)
[2020-05-29 06:23] LABS: ALBUMIN 3.8 g/dL (3.5-5.0); ALKALINE PHOSPHATASE 132 U/L (38-126); ASPARTATE AMINO TRANSFERASE 45 U/L (14-36); BILIRUBIN,DIRECT 0.6 mg/dL (0.0-0.4); BILIRUBIN,TOTAL 0.8 mg/dL (0.2-1.3); TOTAL PROTEIN 6.8 g/dL (6.3-8.2)
[2020-05-29 06:30] LABS: HEMATOCRIT 30.2 % (36.0-47.0); HEMOGLOBIN 10.6 g/dL (12.0-15.5); MEAN CORPUSCULAR HEMOGLOBIN 25.7 pg (27.0-33.4); MEAN CORPUSCULAR HGB CONC 35.1 g/dL (32.0-36.0); MEAN CORPUSCULAR VOLUME 73 fl (80-97); PLATELET COUNT 272 10^3/uL (150-450); RED BLOOD COUNT 4.13 10^6/uL (3.72-5.28); WHITE BLOOD COUNT 9.1 10^3/uL (4.0-10.5)
[2020-05-29 07:06] LABS: ABSOLUTE LYMPHOCYTES# (MANUAL) 0.6 10^3/uL (0.5-4.7); ABSOLUTE MONOCYTES # (MANUAL) 0.6 10^3/uL (0.1-1.4); ANISOCYTOSIS 1+; BASOPHILS % (MANUAL) 0 % (0-2); EOSINOPHILS % (MANUAL) 0 % (0-6); LYMPHOCYTES % (MANUAL) 7 % (13-45); MONOCYTES % (MANUAL) 7 % (3-13); SEGMENTED NEUTROPHILS % (MAN) 86 % (42-78); TOTAL CELLS COUNTED 100; TOXIC GRANULATION SLIGHT
[2020-05-29 07:07] LABS: HYPOCHROMASIA SLIGHT; PLATELET COMMENT ADEQUATE
[2020-05-29 08:26] LABS: ANION GAP 16 (5-19); BLOOD UREA NITROGEN 70 mg/dL (7-20); CALCIUM 8.5 mg/dL (8.4-10.2); CARBON DIOXIDE 16 mmol/L (22-30); CHLORIDE 85 mmol/L (98-107); POTASSIUM 3.5 mmol/L (3.6-5.0)
[2020-05-29 08:29] LABS: GLUCOSE 61 mg/dL (75-110)
[2020-05-29] MEDS ORDERED: DEXTROSE 50%-WATER 25 GM/50 ML DISP.SYRIN IV ONE (08:39)
[2020-05-29] MEDS ORDERED: DEXTROSE 40% GEL 15 GM TUBE X 2 PO PRN (09:30)
[2020-05-29] MEDS ORDERED: GLUCAGON,HUMAN RECOMB 1 MG INJ IM PRN (09:30)
[2020-05-29] MEDS ORDERED: NORMAL SALINE 1000 ML 1,000 ML IV PRN ×3 (09:30→10:06)
[2020-05-29] MEDS ORDERED: DEXTROSE 40% GEL 15 GM TUBE PO PRN ×3 (09:30→10:06)
[2020-05-29] MEDS ORDERED: DEXTROSE 50%-WATER SYRINGE 25 GM/50 ML DOSE IV PRN (09:30)
[2020-05-29] MEDS ORDERED: DEXTROSE 50%-WATER SYRINGE 12.5 GM/25 ML DOSE IV PRN (09:30)
[2020-05-29] MEDS ORDERED: DEXTROSE 50%-WATER 25 GM/50 ML DISP.SYRIN IV PRN ×2 (10:06)
[2020-05-29] MEDS ORDERED: GLUCAGON,HUMAN RECOMB 1 MG INJ SUBCUT PRN (10:06)
[2020-05-29] MEDS ORDERED: ACETAMINOPHEN 650 MG SUPP.RECT PR PRN (10:06)
--- NOTE | 2020-05-29 10:06 | CRITICAL CARE ADMISSION REPORT ---
HPI Date:: 05/29/20 Time:: 09:00 Reason for ICU Reason:: Risk of intubation and aspiration Admission Date/Time & PCP: Admission Date/Time: 05/27/20 18:37 Primary Care Provider: IAN MUÑOZ MD HPI: This patient is a 64 yo woman who was admitted with hyponatremia, AMS and ARF. Her Cr/GFR had been fairly normal until recently when she was diagnosed with pyelonephritis, antibiotic not known at this time. She was admitted with a CR now at 4.88 and GFR now is 9. She is acidotic not overloaded or hyperkalemic. She is still receiving a Duragesic patch of 25mcg/hr, neurontin up until yesterday. Asked to see her for possible ICU placement due to obtundation. Na level 116 probably from dehydration. She is an aspiration risk. She is protecting her airway but this may change given her LOC. She would benefit from an ICU placement until more awake. - Diagnosis/Plan (1) Altered mental status Qualifiers: Altered mental status type: somnolence Qualified Code(s): R40.0 - Somnolence Is this a current diagnosis for this admission?: Yes Plan: On exam she only grunted to stimuli with drool and sputum draining from nose and mouth. (2) ARF (acute renal failure) Qualifiers: Acute renal failure type: with acute tubular necrosis Qualified Code(s): N17.0 - Acute kidney failure with tubular necrosis Is this a current diagnosis for this admission?: Yes Plan: Cr 4.8 with GFR 9. This is getting into dialysis range. She is not hyperkalemic but is acidotic. (3) Chronic pain syndrome Is this a current diagnosis for this admission?: Yes Plan: She will need to have duragesic removed and stop neurontin. (4) Dehydration Is this a current diagnosis for this admission?: Yes Plan: She apparently did not want to eat or drink at home and will need IVF resucitation. Past Medical History Cardiac Medical History: Reports: Congestive Heart Failure, Coronary Artery Disease, DVT, Myocardial Infarction, Hyperlipidema, Hypertension, Pulmonary Embolism Denies: Atrial Fibrillation, Peripheral Vascular Disease, Heart Murmur Pulmonary Medical History: Reports: Bronchitis, Chronic Obstructive Pulmonary Disease (COPD) Denies: Asthma, Pneumonia, Respiratory Failure, Sleep Apnea, Tuberculosis Neurological Medical History: Denies: Seizures Endocrine Medical History: Reports: Hypothyroidism Denies: Hyperthyroidism Renal/ Medical History: Denies: End Stage Renal Disease Malignancy Medical History: Reports: Cervical Cancer, Ovarian Cancer Denies: Breast Cancer, Leukemia, Lung Cancer GI Medical History: Reports: Gastroesophageal Reflux Disease, Hiatal Hernia - Repaired Denies: Cirrhosis, Crohn's Disease, Hepatitis Musculoskeltal Medical History: Reports: Arthritis, Fibromyalgia - Lupus Psychiatric Medical History: Reports: Depression Denies: Bipolar Disorder, Dementia, Post Traumatic Stress Disorder Hematology: Reports: Anemia Denies: Hemophilia, Sickle Cell Disease, Bleeding Tendencies Infectious Medical History: Reports: Clostridium Difficile - Was negative in October2015. Not yet successfully collected stool, Methicillin-Resistant Staph Aureus, Vancomycin-Resistant Enterococci Denies: HIV Past Surgical History Past Surgical History: Reports: Appendectomy, Cardiac Catheterization, Section, Cholecystectomy, Coronary Stent - x3, Herniorrhaphy, Hysterectomy, Orthopedic Surgery - Bilateral knee replacements, hip replacement, Tonsillectomy Denies: Amputation, Colostomy, Coronary Artery Bypass Graft, Gastric Bypass Surgery, Mastectomy, Pacemaker, Tubal Ligation Social/Family History - Social History Lives with: Family Smoking Status: Never Smoker Frequency of Alcohol Use: None Hx Recreational Drug Use: No Drugs: None Hx Prescription Drug Abuse: No - Medication/Allergies Home Medications: Clopidogrel Bisulfate [Plavix 75 mg Tablet] 75 mg PO DAILY 07/10/19 Cyanocobalamin (Vitamin B-12) [Vitamin B-12 Inj 1000 Mcg/1 ml Vial] 1,000 mcg IM [id number] 07/10/19 Cyclobenzaprine HCl [Flexeril 10 mg Tablet] 10 mg PO Q8H 07/10/19 Levothyroxine Sodium [Synthroid 0.1 mg Tablet] 0.1 mg PO Q6AM 07/10/19 Montelukast Sodium [Singulair 10 mg Tablet] 10 mg PO DAILY 07/10/19 Sertraline HCl [Zoloft] 100 mg PO DAILY 07/10/19 Sucralfate [Carafate 1 gm Tablet] 1 gm PO QID 07/10/19 Apixaban [Eliquis 5 mg Tablet] 5 mg PO BID 05/27/20 Atorvastatin Calcium [Lipitor 40 mg Tablet] 40 mg PO QHS 05/27/20 Fentanyl [Duragesic 25 Mcg/Hr Transdermal Patch] 1 each TD Q3D 05/27/20 Gabapentin [Neurontin] 600 mg PO TID 05/27/20 Lemborexant [Dayvigo] 10 mg PO QHS 05/27/20 Losartan/Hydrochlorothiazide [Losartan-Hctz 100-25 mg Tab] 1 each PO DAILY 05/27/20 Ranolazine [Ranolazine ER] 500 mg PO BID 05/27/20 Allergies/Adverse Reactions: irbesartan [From Avapro] Allergy (Severe, Verified 04/19/19 01:21) swelling of face nitrofurantoin macrocrystalline [From Macrobid] Allergy (Severe, Verified 01:21) Generalized edema Penicillins Allergy (Severe, Verified 04/19/19:) eyes swelled pregabalin [From Lyrica] Allergy (Severe, Verified 04/19/19:) Equilibrium Issues venom-honey bee [bee venom (honey bee)] Allergy (Verified 04/19/19) Anaphylaxis Review of Systems ROS unobtainable: Due to mental status Physical Exam Vital Signs: Temp Pulse Resp BP Pulse Ox 97.8 F 82 17 117/45 L 100 05/29/20 08:00 05/29/20 08:00 05/29/20 08:00 05/29/20 08:00 05/29/20 08:00 Intake & Output 05/28/20 05/29/20 05/30/20 06:59 06:59 06:59 Intake Total 2049 150 Output Total 0 Balance 2049 150 Weight 109.6 kg 108.3 kg Weight/Height Weight 108.3 kg Height 5 ft 2 in General appearance: PRESENT: no acute distress, disheveled, morbidly obese Head exam: PRESENT: atraumatic, normocephalic Eye exam: PRESENT: conjunctiva pink, EOMI, PERRLA. ABSENT: scleral icterus Ear exam: PRESENT: normal external ear exam Mouth exam: PRESENT: moist, tongue midline, other - Drooling from mouth. Discharge from nose. Respiratory exam: PRESENT: clear to auscultation martínez, decreased breath sounds, rhonchi. ABSENT: rales, wheezes Cardiovascular exam: PRESENT: RRR. ABSENT: diastolic murmur, rubs, systolic murmur GI/Abdominal exam: PRESENT: normal bowel sounds, soft. ABSENT: distended, guarding, mass, organolmegaly, rebound, tenderness Rectal exam: PRESENT: deferred Gentrourinary exam: PRESENT: indwelling catheter Extremities exam: PRESENT: full ROM. ABSENT: calf tenderness, clubbing, pedal edema Musculoskeletal exam: PRESENT: normal inspection Neurological exam: PRESENT: altered Skin exam: PRESENT: dry, intact, warm. ABSENT: cyanosis, rash Laboratory/Radiographs Laboratory Results: 05/29/20 05:07 05/29/20 05:07 05/29/20 05/29/20 05/29/20 05:07 05:07 05:07 WBC 9.1 RBC 4.13 Hgb 10.6 L Hct 30.2 L MCV 73 L MCH 25.7 L MCHC 35.1 RDW 16.0 H Plt Count 272 Seg Neutrophils % Not Reportable Sodium 116.6 L* Potassium 3.5 L Chloride 85 L Carbon Dioxide 16 L Anion Gap 16 BUN 70 H Creatinine 4.88 H Est GFR ( Amer) 11 L Glucose 61 L Calcium 8.5 Total Bilirubin 0.8 AST 45 H Alkaline Phosphatase 132 H Total Protein 6.8 Albumin 3.8 05/27/20 16:50 Blood Blood Culture (PCR) - Final 05/27/20 05/27/20 05/27/20 16:14 16:14 16:14 Creatine Kinase 367 H CK-MB (CK-2) Troponin I < 0.012 NT-Pro-B Natriuret Pep 168 H 05/27/20 05/27/20 05/28/20 22:52 22:52 05:24 Creatine Kinase 573 H 648 H CK-MB (CK-2) 7.03 H Troponin I < 0.012 NT-Pro-B Natriuret Pep 05/28/20 05/28/20 05/28/20 05:24 10:45 13:37 Creatine Kinase 595 H CK-MB (CK-2) 6.58 H 6.50 H Troponin I < 0.012 < 0.012 NT-Pro-B Natriuret Pep Impressions: Chest X-Ray 05/27/20 13:04 IMPRESSION: NO ACUTE RADIOGRAPHIC FINDING IN THE CHEST. Head CT 05/28/20 00:00 IMPRESSION: No acute intracranial abnormality. EVIDENCE OF ACUTE STROKE: NO. Renal Ultrasound 05/28/20 00:00 IMPRESSION: Cortical thinning bilaterally. No other significant finding. EKG: NSR without ischemia. All labs, radiographs, diagnostic studies and EKGs were personally reviewed: Yes In addition, reports of radiographic and diagnostic studies were read: Yes Critical Time Critical Time (minutes): 40 -: The care of a critically ill patient is dynamic. This note represents a static moment in the admission process. Orders and treatments may be given simultaneously and urgently, and time is not sales representative trainee of the treatment process. This patient requires Critical Care secondary to life threatening organ or limb dysfunction. Without Critical Care services, the patient is at risk for increased mortality and morbidity.
[2020-05-29] MEDS ORDERED: PHARMACY COMMUNICATION ORDER MC NR (10:15)
--- NOTE | 2020-05-29 10:39 | PDOC PROGRESS REPORT ---
Subjective Progress Note for:: 05/29/20 Subjective:: Patient was admitted for the dehydration renal failure severe hyponatremia and a sepsis When I saw the patient's patient's was not responding very well her sodium level is only 116s Discussed with the training lead and see the patient with the training lead because of the patient's severe hyponatremia not responding and acidotic transfer the patient to the intensive care unit for further more aggressive care and management Reason For Visit: HYPONATREMIC ENCEPHALOPATHY/ACUTE KIDNEY INJURY Physical Exam Vital Signs: Temp Pulse Resp BP Pulse Ox 97.8 F 82 17 117/45 L 100 05/29/20 10:00 05/29/20 08:00 05/29/20 08:00 05/29/20 08:00 05/29/20 08:00 Intake & Output 05/28/20 05/29/20 05/30/20 06:59 06:59 06:59 Intake Total 2049 150 Output Total 0 Balance 2049 150 Weight 109.6 kg 108.3 kg General appearance: PRESENT: no acute distress Eye exam: PRESENT: PERRLA Mouth exam: PRESENT: neck supple Respiratory exam: PRESENT: decreased breath sounds Cardiovascular exam: PRESENT: +S1, +S2 GI/Abdominal exam: PRESENT: normal bowel sounds, soft Neurological exam: PRESENT: altered Skin exam: PRESENT: dry Results Laboratory Results: 05/29/20 05:07 05/29/20 05:07 05/29/20 05/29/20 05/29/20 05:07 05:07 05:07 WBC 9.1 RBC 4.13 Hgb 10.6 L Hct 30.2 L MCV 73 L MCH 25.7 L MCHC 35.1 RDW 16.0 H Plt Count 272 Seg Neutrophils % Not Reportable Sodium 116.6 L* Potassium 3.5 L Chloride 85 L Carbon Dioxide 16 L Anion Gap 16 BUN 70 H Creatinine 4.88 H Est GFR ( Amer) 11 L Glucose 61 L Calcium 8.5 Total Bilirubin 0.8 AST 45 H Alkaline Phosphatase 132 H Total Protein 6.8 Albumin 3.8 05/27/20 16:50 Blood Blood Culture (PCR) - Final 05/27/20 05/27/20 05/27/20 16:14 16:14 16:14 Creatine Kinase 367 H CK-MB (CK-2) Troponin I < 0.012 NT-Pro-B Natriuret Pep 168 H 05/27/20 05/27/20 05/28/20 22:52 22:52 05:24 Creatine Kinase 573 H 648 H CK-MB (CK-2) 7.03 H Troponin I < 0.012 NT-Pro-B Natriuret Pep 05/28/20 05/28/20 05/28/20 05:24 10:45 13:37 Creatine Kinase 595 H CK-MB (CK-2) 6.58 H 6.50 H Troponin I < 0.012 < 0.012 NT-Pro-B Natriuret Pep Impressions: Chest X-Ray 05/27/20 13:04 IMPRESSION: NO ACUTE RADIOGRAPHIC FINDING IN THE CHEST. Head CT 05/28/20 00:00 IMPRESSION: No acute intracranial abnormality. EVIDENCE OF ACUTE STROKE: NO. Renal Ultrasound 05/28/20 00:00 IMPRESSION: Cortical thinning bilaterally. No other significant finding. Assessment & Plan - Diagnosis (1) ARF (acute renal failure) Qualifiers: Acute renal failure type: with acute tubular necrosis Qualified Code(s): N17.0 - Acute kidney failure with tubular necrosis Is this a current diagnosis for this admission?: Yes (2) Altered mental status Qualifiers: Altered mental status type: somnolence Qualified Code(s): R40.0 - Somnolence Is this a current diagnosis for this admission?: Yes (3) Anemia Qualifiers: Anemia type: iron deficiency Iron deficiency anemia type: unspecified iron deficiency Qualified Code(s): D50.9 - Iron deficiency anemia, unspecified Is this a current diagnosis for this admission?: Yes (4) Hypokalemia Is this a current diagnosis for this admission?: Yes (5) Hyponatremia Is this a current diagnosis for this admission?: Yes (6) Coronary artery disease Qualifiers: Coronary Disease-Associated Artery/Lesion type: [place] artery Crow vs. tr ansplanted heart: [place] heart Associated angina: without angina Qualified Code(s): I25.10 - Atherosclerotic heart disease of [place] coronary artery without angina pectoris Is this a current diagnosis for this admission?: Yes (7) Dehydration Is this a current diagnosis for this admission?: Yes - Time Time Spent with patient: 35 or more minutes Total Critical Time (Minutes): 35 Level of Care: IMCU Medications reviewed and adjusted accordingly: Yes Anticipated discharge: Other Anticipated DC Timeframe: Other - Plan Summary Plan Summary: Very extensive discussions with the training lead to see the patient's with the training lead in IMCU discussed with the nursing staff transfer the patient to the ICU for further care
[2020-05-29 15:39] LABS: BLOOD UREA NITROGEN 68 mg/dL (7-20); CALCIUM 7.4 mg/dL (8.4-10.2); CARBON DIOXIDE 15 mmol/L (22-30); CHLORIDE 89 mmol/L (98-107); GLUCOSE 78 mg/dL (75-110); POTASSIUM 3.2 mmol/L (3.6-5.0)
[2020-05-29 15:45] LABS: ANION GAP 13 (5-19)
--- NOTE | 2020-05-29 16:44 | RADIOLOGY REPORT (SQ) ---
EXAM DESCRIPTION: KUB/ABDOMEN (SINGLE VIEW) IMAGES COMPLETED DATE/TIME: 05/29/2020 1:57 pm REASON FOR STUDY: Check Placement of NG Tube COMPARISON: None. NUMBER OF VIEWS: One view. TECHNIQUE: Supine radiographic image of the abdomen acquired. LIMITATIONS: None. FINDINGS: BOWEL GAS PATTERN: Multiple small large bowel loops nonspecific. CALCIFICATIONS: No suspicious calcifications. SOFT TISSUES: No gross mass or suggestion of organomegaly. HARDWARE: Surgical changes. Neurostimulator. Nasogastric tube present in the antrum of the stomach. BONES: No acute fracture. No worrisome bone lesions. OTHER: No other significant finding. IMPRESSION: Nasogastric tube tip in the antrum of the stomach. TECHNICAL DOCUMENTATION: JOB ID: [id number] 2010 [email or web address]- All Rights Reserved Reading location - IP/workstation name: [email or web address]
[2020-05-29] MEDS: NYSTATIN/TRIAMCIN CREAM 15 GM TP SCH (17:15)
[2020-05-29] MEDS: PANTOPRAZOLE SODIUM 40 MG VIAL IV SCH (17:15)
[2020-05-29] MEDS: LOSARTAN POTASSIUM 50 MG TABLET PO SCH (17:29)
[2020-05-29] MEDS: APIXABAN 5 MG TABLET PO SCH (17:29)
[2020-05-29] MEDS: RANOLAZINE 500 MG TAB.SR.12H PO SCH (17:30)
[2020-05-29] MEDS: SERTRALINE HCL 50 MG TABLET PO SCH (17:30)
[2020-05-29] MEDS: CLOPIDOGREL BISULFATE 75 MG TABLET PO SCH (17:30)
[2020-05-29] MEDS: MONTELUKAST SODIUM 10 MG TABLET PO SCH (17:30)
[2020-05-29] MEDS: APIXABAN 5 MG TABLET NG SCH (17:46)
[2020-05-29] MEDS ORDERED: RINGERS SOLUTION,LACTATED 1,000 ML IV PRN (19:07)
[2020-05-29] MEDS ORDERED: POTASSI CL 20 MEQ/1/2NS 1L 20 MEQ/1,000 ML RTUINJ IV PRN (20:55)
[2020-05-29] MEDS: ATORVASTATIN CALCIUM 40 MG TABLET NG SCH (21:24)
[2020-05-29 21:46] LABS: ANION GAP 13 (5-19); BLOOD UREA NITROGEN 64 mg/dL (7-20); CALCIUM 7.6 mg/dL (8.4-10.2); CARBON DIOXIDE 14 mmol/L (22-30); CHLORIDE 93 mmol/L (98-107); GLUCOSE 81 mg/dL (75-110); POTASSIUM 3.1 mmol/L (3.6-5.0)
[2020-05-29] MEDS ORDERED: POTASSIUM CHLORIDE 20 MEQ PACKET NG ONE (22:30)
[2020-05-29] MEDS ORDERED: POTASSIUM CHLORIDE 20 MEQ PACKET PO ONE (22:30)
[2020-05-30 01:08] LABS: ANION GAP 11 (5-19); BLOOD UREA NITROGEN 61 mg/dL (7-20); CALCIUM 7.7 mg/dL (8.4-10.2); CARBON DIOXIDE 16 mmol/L (22-30); CHLORIDE 95 mmol/L (98-107); GLUCOSE 75 mg/dL (75-110); POTASSIUM 3.7 mmol/L (3.6-5.0)
[2020-05-30] MEDS ORDERED: POTASSI CL 20 MEQ/D5-1/2NS 1L 1,000 ML IV PRN (01:26)
[2020-05-30 04:14] LABS: ANION GAP 12 (5-19); BLOOD UREA NITROGEN 57 mg/dL (7-20); CALCIUM 7.7 mg/dL (8.4-10.2); CARBON DIOXIDE 16 mmol/L (22-30); CHLORIDE 95 mmol/L (98-107); GLUCOSE 94 mg/dL (75-110); POTASSIUM 3.5 mmol/L (3.6-5.0)
[2020-05-30] MEDS: CLINDAMYCIN 300 MG/D5W RTU 300 MG/50 ML RTUPB IV SCH ×3 (05:24→21:21)
[2020-05-30 07:38] LABS: HEMATOCRIT 28.4 % (36.0-47.0); HEMOGLOBIN 10.3 g/dL (12.0-15.5); MEAN CORPUSCULAR HEMOGLOBIN 26.7 pg (27.0-33.4); MEAN CORPUSCULAR HGB CONC 36.2 g/dL (32.0-36.0); MEAN CORPUSCULAR VOLUME 74 fl (80-97); PLATELET COUNT 290 10^3/uL (150-450); RED BLOOD COUNT 3.85 10^6/uL (3.72-5.28); RED CELL DISTRIBUTION WIDTH 16.3 % (11.5-14.0); WHITE BLOOD COUNT 11.5 10^3/uL (4.0-10.5)
[2020-05-30 07:57] LABS: ABSOLUTE LYMPHOCYTES# (MANUAL) 0.6 10^3/uL (0.5-4.7); ABSOLUTE MONOCYTES # (MANUAL) 0.3 10^3/uL (0.1-1.4); BAND NEUTROPHILS % (MANUAL) 3 % (3-5); BASOPHILS % (MANUAL) 0 % (0-2); EOSINOPHILS % (MANUAL) 0 % (0-6); LYMPHOCYTES % (MANUAL) 5 % (13-45); MONOCYTES % (MANUAL) 3 % (3-13); SEGMENTED NEUTROPHILS % (MAN) 89 % (42-78); TOTAL CELLS COUNTED 100
[2020-05-30 08:01] LABS: ANISOCYTOSIS 1+; HYPOCHROMASIA SLIGHT; OVALOCYTES SLIGHT; PLATELET CLUMPS PRESENT; PLATELET COMMENT ADEQUATE
[2020-05-30 08:33] LABS: ALBUMIN 3.1 g/dL (3.5-5.0); ALKALINE PHOSPHATASE 111 U/L (38-126); ANION GAP 11 (5-19); ASPARTATE AMINO TRANSFERASE 56 U/L (14-36); BILIRUBIN,DIRECT 0.4 mg/dL (0.0-0.4); BILIRUBIN,TOTAL 0.5 mg/dL (0.2-1.3); BLOOD UREA NITROGEN 54 mg/dL (7-20); CALCIUM 8.1 mg/dL (8.4-10.2); CARBON DIOXIDE 20 mmol/L (22-30); CHLORIDE 95 mmol/L (98-107); GLUCOSE 87 mg/dL (75-110); POTASSIUM 3.4 mmol/L (3.6-5.0); TOTAL PROTEIN 5.3 g/dL (6.3-8.2)
--- NOTE | 2020-05-30 09:36 | PDOC CRITICAL CARE PROG REPORT ---
General Date:: 05/30/20 Hospital Day:: 3 Resuscitation Status: Full Code Events in the past 12 to 24 Hours:: She has responded to fluid. Awake. Sodium better. Review of systems relevant to events:: Neurological Reason for ICU Addmission:: Risk of intubation and aspiration, now resolved - Medications: Medications reviewed and adjusted accordingly: Yes Vasopressors:: None Sedation:: None Physical Exam Vital Signs: Temp Pulse Resp BP Pulse Ox 98.9 F 79 10 L 102/54 L 96 05/30/20 03:50 05/30/20 08:00 05/30/20 08:23 05/30/20 08:23 05/30/20 08:23 Intake & Output 05/29/20 05/30/20 05/31/20 06:59 06:59 06:59 Intake Total 150 525 Output Total 0 6150 250 Balance 150 -5625 -250 Weight 108.3 kg 106.7 kg Weight/Height Weight 106.7 kg Height 5 ft 2 in General appearance: PRESENT: no acute distress, cooperative, obese Head exam: PRESENT: atraumatic, normocephalic Eye exam: PRESENT: conjunctiva pink, EOMI, PERRLA. ABSENT: scleral icterus Ear exam: PRESENT: normal external ear exam Mouth exam: PRESENT: moist, tongue midline Respiratory exam: PRESENT: clear to auscultation martínez. ABSENT: rales, rhonchi, wheezes Cardiovascular exam: PRESENT: RRR. ABSENT: diastolic murmur, rubs, systolic murmur GI/Abdominal exam: PRESENT: normal bowel sounds, soft. ABSENT: distended, guarding, mass, organolmegaly, rebound, tenderness Rectal exam: PRESENT: deferred Gentrourinary exam: PRESENT: indwelling catheter Extremities exam: PRESENT: full ROM. ABSENT: calf tenderness, clubbing, pedal edema Musculoskeletal exam: PRESENT: normal inspection Neurological exam: PRESENT: alert, awake, oriented to person, oriented to place Skin exam: PRESENT: dry, intact, warm. ABSENT: cyanosis, rash Tubes/Lines: PRESENT: Endotracheal Tube, Nasogastic Tube Laboratory/Radiographs Laboratory Results: 05/30/20 06:55 05/30/20 07:50 05/29/20 05/29/20 05/29/20 15:00 20:30 21:15 WBC RBC Hgb Hct MCV MCH MCHC RDW Plt Count Seg Neutrophils % Sodium 117.3 L* Cancelled 120.4 L* Potassium 3.2 L Cancelled 3.1 L Chloride 89 L Cancelled 93 L Carbon Dioxide 15 L Cancelled 14 L Anion Gap 13 Cancelled 13 BUN 68 H Cancelled 64 H Creatinine 4.06 H Cancelled 3.48 H Est GFR ( Amer) 13 L Cancelled 16 L Est GFR (Non-Af Amer) Cancelled Glucose 78 Cancelled 81 Calcium 7.4 L Cancelled 7.6 L Total Bilirubin AST Alkaline Phosphatase Total Protein Albumin 05/30/20 05/30/20 05/30/20 00:30 03:15 06:55 WBC 11.5 H RBC 3.85 Hgb 10.3 L Hct 28.4 L MCV 74 L MCH 26.7 L MCHC 36.2 H RDW 16.3 H Plt Count 290 Seg Neutrophils % Not Reportable Sodium 122.3 L 123.3 L Potassium 3.7 3.5 L Chloride 95 L 95 L Carbon Dioxide 16 L 16 L Anion Gap 11 12 BUN 61 H 57 H Creatinine 3.04 H 2.78 H Est GFR ( Amer) 19 L 21 L Est GFR (Non-Af Amer) Glucose 75 94 Calcium 7.7 L 7.7 L Total Bilirubin AST Alkaline Phosphatase Total Protein Albumin 05/30/20 07:50 WBC RBC Hgb Hct MCV MCH MCHC RDW Plt Count Seg Neutrophils % Sodium 125.5 L Potassium 3.4 L Chloride 95 L Carbon Dioxide 20 L Anion Gap 11 BUN 54 H Creatinine 2.75 H Est GFR ( Amer) 21 L Est GFR (Non-Af Amer) Glucose 87 Calcium 8.1 L Total Bilirubin 0.5 AST 56 H Alkaline Phosphatase 111 Total Protein 5.3 L Albumin 3.1 L 05/27/20 14:10 Catheterized Urine Urine Culture - Final NO GROWTH 2 DAYS 05/27/20 17:15 Blood Blood Culture (PCR) - Final 05/27/20 16:50 Blood Blood Culture (PCR) - Final 05/27/20 05/27/20 05/27/20 16:14 16:14 16:14 Creatine Kinase 367 H CK-MB (CK-2) Troponin I < 0.012 NT-Pro-B Natriuret Pep 168 H 05/27/20 05/27/20 05/28/20 22:52 22:52 05:24 Creatine Kinase 573 H 648 H CK-MB (CK-2) 7.03 H Troponin I < 0.012 NT-Pro-B Natriuret Pep 05/28/20 05/28/20 05/28/20 05:24 10:45 13:37 Creatine Kinase 595 H CK-MB (CK-2) 6.58 H 6.50 H Troponin I < 0.012 < 0.012 NT-Pro-B Natriuret Pep Impressions: Chest X-Ray 05/27/20 13:04 IMPRESSION: NO ACUTE RADIOGRAPHIC FINDING IN THE CHEST. Head CT 05/28/20 00:00 IMPRESSION: No acute intracranial abnormality. EVIDENCE OF ACUTE STROKE: NO. Renal Ultrasound 05/28/20 00:00 IMPRESSION: Cortical thinning bilaterally. No other significant finding. KUB X-Ray 05/29/20 10:09 IMPRESSION: Nasogastric tube tip in the antrum of the stomach. EKG: NSR without ischemia. All labs, radiographs, diagnostic studies and EKGs were personally reviewed: Yes In addition, reports of radiographic and diagnostic studies were read: Yes Assessment and Plan - Diagnosis (1) Altered mental status Qualifiers: Altered mental status type: somnolence Qualified Code(s): R40.0 - Somnolence Is this a current diagnosis for this admission?: Yes Plan: Her mental status is much improved with her being sleepy but oriented. If she is in pain dilaudid, IV or PO is better for someone with poor renal function. Neurontin I would add back at a lower dose. Largely to keep her from going through neurontin withdrawal. (2) ARF (acute renal failure) Qualifiers: Acute renal failure type: with acute tubular necrosis Qualified Code(s): N17.0 - Acute kidney failure with tubular necrosis Is this a current diagnosis for this admission?: Yes Plan: Improved but still impaired with a CR 2.75 and GFR 17. (3) Chronic pain syndrome Is this a current diagnosis for this admission?: Yes Plan: As mentioned stop fentanyl and substitue small doses of dilaudid. Add bad neurontin carefully (4) Dehydration Is this a current diagnosis for this admission?: Yes Plan: Improved Plan Summary: Stable to return to [facility]. Critical Time Critical Time (minutes): 30 Level of Care: IMCU Anticipated discharge: Home Anticipated DC Timeframe: Other -: 1. The care of a critical patient is a dynamic process. This note is a charter representative synopsis but static in nature. The timeframe for treatments given in order is not necessarily the actual time these treatments may have been done. 2. This patient requires critical care secondary to ongoing requirements for therapy not offered or safe outside the critical care environment. Transfer to a lower level of care will result in altered life or limb morbidity and mortality. 3. Multidisciplinary rounds completed. 4. ABCDE bundle addressed.
[2020-05-30] MEDS: NYSTATIN/TRIAMCIN CREAM 15 GM TP SCH (10:43)
[2020-05-30] MEDS: SERTRALINE HCL 50 MG TABLET NG SCH (10:44)
[2020-05-30] MEDS: APIXABAN 5 MG TABLET NG SCH ×2 (10:44→17:49)
[2020-05-30] MEDS: PANTOPRAZOLE SODIUM 40 MG VIAL IV SCH (10:44)
[2020-05-30 11:08] LABS: ANION GAP 9 (5-19); BLOOD UREA NITROGEN 49 mg/dL (7-20); CARBON DIOXIDE 23 mmol/L (22-30); CHLORIDE 95 mmol/L (98-107); GLUCOSE 87 mg/dL (75-110); POTASSIUM 3.3 mmol/L (3.6-5.0)
[2020-05-30 14:20] LABS: ANION GAP 8 (5-19); BLOOD UREA NITROGEN 49 mg/dL (7-20); CALCIUM 8.3 mg/dL (8.4-10.2); CARBON DIOXIDE 23 mmol/L (22-30); CHLORIDE 95 mmol/L (98-107); GLUCOSE 93 mg/dL (75-110); POTASSIUM 3.7 mmol/L (3.6-5.0)
[2020-05-30] MEDS: POTASSI CL 20 MEQ/D5-1/2NS 1L 1,000 ML IV PRN (15:00)
[2020-05-30 17:22] LABS: ANION GAP 11 (5-19); BLOOD UREA NITROGEN 43 mg/dL (7-20); CALCIUM 8.2 mg/dL (8.4-10.2); CARBON DIOXIDE 21 mmol/L (22-30); CHLORIDE 96 mmol/L (98-107); GLUCOSE 93 mg/dL (75-110); POTASSIUM 3.6 mmol/L (3.6-5.0)
[2020-05-30 20:20] LABS: ANION GAP 8 (5-19); BLOOD UREA NITROGEN 40 mg/dL (7-20); CALCIUM 7.9 mg/dL (8.4-10.2); CARBON DIOXIDE 21 mmol/L (22-30); CHLORIDE 97 mmol/L (98-107); GLUCOSE 102 mg/dL (75-110); POTASSIUM 3.4 mmol/L (3.6-5.0)
[2020-05-30] MEDS: ATORVASTATIN CALCIUM 40 MG TABLET NG SCH (21:21)
[2020-05-31 00:05] LABS: ANION GAP 8 (5-19); BLOOD UREA NITROGEN 37 mg/dL (7-20); CARBON DIOXIDE 23 mmol/L (22-30); CHLORIDE 96 mmol/L (98-107); GLUCOSE 102 mg/dL (75-110); POTASSIUM 3.5 mmol/L (3.6-5.0)
[2020-05-31] MEDS: CLINDAMYCIN 300 MG/D5W RTU 300 MG/50 ML RTUPB IV SCH (08:08)
[2020-05-31] MEDS: SERTRALINE HCL 50 MG TABLET NG SCH (11:04)
[2020-05-31] MEDS: PANTOPRAZOLE SODIUM 40 MG VIAL IV SCH (11:04)
[2020-05-31] MEDS: APIXABAN 5 MG TABLET NG SCH ×2 (11:04→17:13)
--- NOTE | 2020-05-31 12:30 | CDI QUERY ---
CDI Query CDI Review: Dear Provider, Please document in PROGRESS NOTES and D/C summary if you agree with the following clinical data: ACUTE METABOLIC ENCEPHALOPATHY? ACUTE TOXIC ENCEPHALOPATHY? ACUTE CONFUSIONAL STATE? OTHER? Clinical data: Na+ 116-125 ALTERED MENTAL STATUS SOMNOLENCE Thanks, Katharine Walton, CDI [phone]
[2020-05-31] MEDS: POTASSI CL 20 MEQ/D5-1/2NS 1L 1,000 ML IV PRN (12:46)
--- NOTE | 2020-05-31 13:53 | PDOC CRITICAL CARE PROG REPORT ---
General Date:: 05/31/20 ICU Day:: 3 Hospital Day:: 3 Resuscitation Status: Full Code Events in the past 12 to 24 Hours:: She has responded to fluid. Awake. Sodium better. The patient is alert and responsive. her kidney fmn. has gotten progressively better. Her last sodium was 127. Reason for ICU Addmission:: Risk of intubation and aspiration, now resolved Physical Exam Vital Signs: Temp Pulse Resp BP Pulse Ox 98.8 F 80 20 140/54 H 98 05/31/20 12:00 05/31/20 12:00 05/31/20 12:00 05/31/20 11:57 05/31/20 12:00 Intake & Output 05/30/20 05/31/20 06/01/20 06:59 06:59 06:59 Intake Total 929 222 3790 Output Total 6150 4750 200 Balance -5575 -4650 1040 Weight 106.7 kg 103.1 kg Weight/Height Weight 103.1 kg Height 5 ft 2 in General appearance: PRESENT: no acute distress Head exam: PRESENT: atraumatic, normocephalic Eye exam: PRESENT: conjunctiva pink, EOMI, PERRLA Mouth exam: PRESENT: neck supple Neck exam: ABSENT: lymphadenopathy, thyromegaly, tracheal deviation Respiratory exam: PRESENT: clear to auscultation martínez Cardiovascular exam: PRESENT: RRR, +S1, +S2 GI/Abdominal exam: PRESENT: normal bowel sounds, soft. ABSENT: tenderness Rectal exam: PRESENT: deferred Extremities exam: PRESENT: full ROM. ABSENT: calf tenderness Neurological exam: PRESENT: alert, awake, oriented to place, oriented to time, oriented to situation Psychiatric exam: PRESENT: appropriate affect Laboratory/Radiographs Laboratory Results: 05/30/20 06:55 05/30/20 23:24 05/30/20 05/30/20 05/30/20 13:50 16:54 19:45 Sodium 126.2 L 127.7 L 126.0 L Potassium 3.7 3.6 3.4 L Chloride 95 L 96 L 97 L Carbon Dioxide 23 21 L 21 L Anion Gap 8 11 8 BUN 49 H 43 H 40 H Creatinine 2.33 H 2.11 H 1.87 H Est GFR ( Amer) 25 L 28 L 33 L Glucose 93 93 102 Calcium 8.3 L 8.2 L 7.9 L 05/30/20 23:24 Sodium 126.8 L Potassium 3.5 L Chloride 96 L Carbon Dioxide 23 Anion Gap 8 BUN 37 H Creatinine 1.80 H Est GFR ( Amer) 34 L Glucose 102 Calcium 8.0 L 05/27/20 16:50 Blood Blood Culture (PCR) - Final 05/27/20 16:50 Blood Blood Culture - Final Micrococcus Species Corynebacterium Species 05/27/20 17:15 Blood Blood Culture (PCR) - Final 05/27/20 17:15 Blood Blood Culture - Final Micrococcus Species Parvimonas(Peptostrep) Species 05/27/20 05/27/20 05/27/20 16:14 16:14 16:14 Creatine Kinase 367 H CK-MB (CK-2) Troponin I < 0.012 NT-Pro-B Natriuret Pep 168 H 05/27/20 05/27/20 05/28/20 22:52 22:52 05:24 Creatine Kinase 573 H 648 H CK-MB (CK-2) 7.03 H Troponin I < 0.012 NT-Pro-B Natriuret Pep 05/28/20 05/28/20 05/28/20 05:24 10:45 13:37 Creatine Kinase 595 H CK-MB (CK-2) 6.58 H 6.50 H Troponin I < 0.012 < 0.012 NT-Pro-B Natriuret Pep Impressions: Chest X-Ray 05/27/20 13:04 IMPRESSION: NO ACUTE RADIOGRAPHIC FINDING IN THE CHEST. Head CT 05/28/20 00:00 IMPRESSION: No acute intracranial abnormality. EVIDENCE OF ACUTE STROKE: NO. Renal Ultrasound 05/28/20 00:00 IMPRESSION: Cortical thinning bilaterally. No other significant finding. KUB X-Ray 05/29/20 10:09 IMPRESSION: Nasogastric tube tip in the antrum of the stomach. Assessment and Plan - Diagnosis (1) Bacteremia Is this a current diagnosis for this admission?: Yes Plan: Thepatient has grown micrococcus and peptostrep out of her blood.the source is unclear. the patient remains on clindamycin at this time. (2) Altered mental status Qualifiers: Altered mental status type: somnolence Qualified Code(s): R40.0 - Somnolence Is this a current diagnosis for this admission?: Yes Plan: Her mental status is much improved with her being sleepy but oriented. If she is in pain dilaudid, IV or PO is better for someone with poor renal function. Neurontin I would add back at a lower dose. Largely to keep her from going through neurontin withdrawal. 05/31 The patient responds appropriately and appears to know where she is and why she is here. (3) Anemia Qualifiers: Anemia type: iron deficiency Iron deficiency anemia type: unspecified iron deficiency Qualified Code(s): D50.9 - Iron deficiency anemia, unspecified Is this a current diagnosis for this admission?: Yes Plan: It appears that thepatient has had a low grade anemia going bck to 10/09/18. It appears that her Hb for the most part has been under 10.6. (4) Hyponatremia Is this a current diagnosis for this admission?: Yes Plan: She has severe hyponatremia, history of SIADH, slowly replace sodium. 05/31 The patient apparenrtly has had lw serum sodiums previously. However loking back about 2 years her sodium appears to have been normal. There is no urine electrolytes or osmol;arity from the time of admission. The cuse therefore remains unclear. However, it is clear her nembers have gottenbetter withour use of 3% NaCL. (5) Acute kidney injury Is this a current diagnosis for this admission?: Yes Plan: Kidney ultrasound demonstrated cortical thinning of the kidneys, suggesting CKD, Acute kidney injury with underlying CKD. her kidney fn. it reached a high of 4.88 on 05/28. Since than it ios trending down and is now 1.8 1 year ago her creatinine was 1.02 (6) Diarrhea Qualifiers: Qualified Code(s): R19.7 - Diarrhea, unspecified Is this a current diagnosis for this admission?: Yes Plan: The opatient has been on Clindamycinfor a few days. we will sending a stool c diff. screen. Critical Time Critical Time (minutes): 20 Level of Care: ICU -: 1. The care of a critical patient is a dynamic process. This note is a senior patient account representative synopsis but static in nature. The timeframe for treatments given in order is not necessarily the actual time these treatments may have been done. 2. This patient requires critical care secondary to ongoing requirements for t herapy not offered or safe outside the critical care environment. Transfer to a lower level of care will result in altered life or limb morbidity and mortality. 3. Multidisciplinary rounds completed. 4. ABCDE bundle addressed.
[2020-05-31] MEDS: CLINDAMYCIN 600 MG/D5W RTU 600 MG/50 ML RTUPB IV SCH ×2 (15:17→22:19)
--- NOTE | 2020-05-31 17:05 | Progress Note ---
Provider Note Provider Note: ID Telephone / Remote consultation - brief note I was asked by Pharmacy to comment on the blood culture results for this patient. From review of the patient's chart it appears that she was admitted due to symptomatic hyponatremia. Per documentation in the H&P, pt has a h/o SIADH, and she also was described as having an area of erythema and swelling on her face concerning for erysipelas. Her blood cultures grew Micrococcus and Corynebacterium species from one set and Peptostreptococcus and Micrococcus from the other set. Impression/Recommendations The organisms isolated from her blood cx results are more suggestive of contamination rather than true bacteremia. Micrococcus species are part of the normal skin jeni and are typically contaminants when found in blood cultures. Corynebacterium species are also part of the normal human skin jeni and only rarely represent true bacteremia. Likewise, anaerobic gram positive cocci, such as Peptostreptococcus, and microaerophilic streptococci can be found as skin jeni as well. The sites from which the blood cultures were drawn are labeled as "left breast" and "right breast." This is unusual and suggests potentially that the patient is a difficult stick, which may increase the risk for contamination, particularly in the setting in which these cultures need to be obtained emergently. While the patient has a port, right now there is also no compelling indication that the patient has a port infection. If there are concerns that this is the case, carefully drawn paired blood cultures from a peripheral stick and the port should be obtained while the patient is off of antibiotics. Length of treatment for her presenting diagnosis of erysipelas - like other skin/soft tissue infections, the optimal duration of treatment is variable and will depend upon clinical progress but could be as short as 5 days if it improves/resolves as expected but could be longer if patient is slower to respond. Tyson Gray MD [facility] Infectious Diseases pager [phone]
[2020-05-31 21:33] LABS: C DIFFICILE GDH NEGATIVE (NEGATIVE)
[2020-05-31] MEDS: ATORVASTATIN CALCIUM 40 MG TABLET NG SCH (22:20)
[2020-06-01] MEDS: CLINDAMYCIN 600 MG/D5W RTU 600 MG/50 ML RTUPB IV SCH ×3 (05:22→22:03)
[2020-06-01] MEDS: SERTRALINE HCL 50 MG TABLET NG SCH (10:35)
[2020-06-01] MEDS: APIXABAN 5 MG TABLET NG SCH ×2 (10:35→17:22)
[2020-06-01] MEDS: PANTOPRAZOLE SODIUM 40 MG VIAL IV SCH (10:35)
[2020-06-01] MEDS: POTASSI CL 20 MEQ/D5-1/2NS 1L 1,000 ML IV PRN (13:49)
[2020-06-01 19:51] LABS: ABSOLUTE LYMPHOCYTES (AUTO) 0.4 10^3/uL (0.5-4.7); ABSOLUTE MONOCYTES (AUTO) 0.2 10^3/uL (0.1-1.4); ABSOLUTE NEUT (AUTO) 1.9 10^3/uL (1.7-8.2); BASOPHILS % (AUTO) 0.1 % (0-2); EOSINOPHILS % (AUTO) 0.1 % (0-6); HEMATOCRIT 25.1 % (36.0-47.0); HEMOGLOBIN 8.9 g/dL (12.0-15.5); MEAN CORPUSCULAR HEMOGLOBIN 25.8 pg (27.0-33.4); MEAN CORPUSCULAR HGB CONC 35.2 g/dL (32.0-36.0); MEAN CORPUSCULAR VOLUME 74 fl (80-97); MONOCYTES % (AUTO) 8.2 % (3-13); PLATELET COUNT 171 10^3/uL (150-450); RED BLOOD COUNT 3.42 10^6/uL (3.72-5.28); RED CELL DISTRIBUTION WIDTH 16.6 % (11.5-14.0); SEGMENTED NEUTROPHILS % (AUTO) 75.6 % (42-78); TOTAL CELLS COUNTED % (AUTO) 100 %
[2020-06-01 19:58] LABS: WHITE BLOOD COUNT 2.5 10^3/uL (4.0-10.5)
[2020-06-01 20:21] LABS: ALBUMIN 2.6 g/dL (3.5-5.0); ALKALINE PHOSPHATASE 82 U/L (38-126); ANION GAP 7 (5-19); ASPARTATE AMINO TRANSFERASE 74 U/L (14-36); BILIRUBIN,DIRECT 0.3 mg/dL (0.0-0.4); BILIRUBIN,TOTAL 0.4 mg/dL (0.2-1.3); BLOOD UREA NITROGEN 20 mg/dL (7-20); CALCIUM 7.3 mg/dL (8.4-10.2); CARBON DIOXIDE 25 mmol/L (22-30); CHLORIDE 98 mmol/L (98-107); GLUCOSE 93 mg/dL (75-110); POTASSIUM 3.4 mmol/L (3.6-5.0); TOTAL PROTEIN 4.6 g/dL (6.3-8.2)
--- NOTE | 2020-06-01 22:01 | PDOC PROGRESS REPORT ---
Subjective Progress Note for:: 06/01/20 Subjective:: Patient seen by the bedside, she continues to improve, she is alert she is responsive the erysipelas is improved on antibiotic Reason For Visit: AMS,HYPONATREMIA,ARF RISK OF INTUBATION Physical Exam Vital Signs: Temp Pulse Resp BP Pulse Ox 97.7 F 79 17 133/52 H 98 06/01/20 20:04 06/01/20 20:04 06/01/20 20:04 06/01/20 20:04 06/01/20 20:04 Intake & Output 05/31/20 06/01/20 06/02/20 06:59 06:59 06:59 Intake Total 100 1390 1160 Output Total 4750 1275 480 Balance -4650 115 680 Weight 103.1 kg 101.4 kg General appearance: PRESENT: no acute distress Eye exam: PRESENT: PERRLA Respiratory exam: PRESENT: clear to auscultation martínez Cardiovascular exam: PRESENT: +S1, +S2 GI/Abdominal exam: PRESENT: soft Neurological exam: PRESENT: alert, CN II-XII grossly intact Results Laboratory Results: 06/01/20 19:37 06/01/20 19:37 06/01/20 06/01/20 19:37 19:37 WBC 2.5 L D RBC 3.42 L Hgb 8.9 L Hct 25.1 L MCV 74 L MCH 25.8 L MCHC 35.2 RDW 16.6 H Plt Count 171 Seg Neutrophils % 75.6 Sodium 130.4 L Potassium 3.4 L Chloride 98 Carbon Dioxide 25 Anion Gap 7 BUN 20 Creatinine 1.30 H Est GFR ( Amer) 50 L Glucose 93 Calcium 7.3 L Total Bilirubin 0.4 AST 74 H Alkaline Phosphatase 82 Total Protein 4.6 L Albumin 2.6 L 05/27/20 05/27/20 05/27/20 16:14 16:14 16:14 Creatine Kinase 367 H CK-MB (CK-2) Troponin I < 0.012 NT-Pro-B Natriuret Pep 168 H 05/27/20 05/27/20 05/28/20 22:52 22:52 05:24 Creatine Kinase 573 H 648 H CK-MB (CK-2) 7.03 H Troponin I < 0.012 NT-Pro-B Natriuret Pep 05/28/20 05/28/20 05/28/20 05:24 10:45 13:37 Creatine Kinase 595 H CK-MB (CK-2) 6.58 H 6.50 H Troponin I < 0.012 < 0.012 NT-Pro-B Natriuret Pep Impressions: Chest X-Ray 05/27/20 13:04 IMPRESSION: NO ACUTE RADIOGRAPHIC FINDING IN THE CHEST. Head CT 05/28/20 00:00 IMPRESSION: No acute intracranial abnormality. EVIDENCE OF ACUTE STROKE: NO. Renal Ultrasound 05/28/20 00:00 IMPRESSION: Cortical thinning bilaterally. No other significant finding. KUB X-Ray 05/29/20 10:09 IMPRESSION: Nasogastric tube tip in the antrum of the stomach. Assessment & Plan - Diagnosis (1) Hyponatremia Is this a current diagnosis for this admission?: Yes Plan: improved (2) Erysipelas Is this a current diagnosis for this admission?: Yes Plan: improved (3) Acute kidney injury Is this a current diagnosis for this admission?: Yes Plan: improved (4) Metabolic encephalopathy Is this a current diagnosis for this admission?: Yes Plan: improved - Time Time Spent with patient: 25-34 minutes Level of Care: IMCU Medications reviewed and adjusted accordingly: Yes Anticipated discharge: Home Anticipated DC Timeframe: within 72 hours
[2020-06-01] MEDS: ATORVASTATIN CALCIUM 40 MG TABLET NG SCH (22:03)
[2020-06-02] MEDS: CLINDAMYCIN 600 MG/D5W RTU 600 MG/50 ML RTUPB IV SCH ×3 (05:42→22:13)
[2020-06-02 09:44] LABS: ALBUMIN 2.6 g/dL (3.5-5.0); ALKALINE PHOSPHATASE 78 U/L (38-126); ANION GAP 7 (5-19); ASPARTATE AMINO TRANSFERASE 70 U/L (14-36); BILIRUBIN,DIRECT 0.4 mg/dL (0.0-0.4); BILIRUBIN,TOTAL 0.4 mg/dL (0.2-1.3); BLOOD UREA NITROGEN 14 mg/dL (7-20); CARBON DIOXIDE 25 mmol/L (22-30); CHLORIDE 99 mmol/L (98-107); GLUCOSE 89 mg/dL (75-110); POTASSIUM 3.2 mmol/L (3.6-5.0); TOTAL PROTEIN 4.8 g/dL (6.3-8.2)
[2020-06-02] MEDS: APIXABAN 5 MG TABLET NG SCH ×2 (09:45→17:37)
[2020-06-02] MEDS: PANTOPRAZOLE SODIUM 40 MG VIAL IV SCH (09:45)
[2020-06-02] MEDS: SERTRALINE HCL 50 MG TABLET NG SCH (09:45)
[2020-06-02 09:58] LABS: CALCIUM 6.8 mg/dL (8.4-10.2)
--- NOTE | 2020-06-02 16:37 | PDOC PROGRESS REPORT ---
Subjective Progress Note for:: 06/02/20 Subjective:: Patient seen by the bedside, she is alert, there is a concern about potential exposure to SARS-CoV-2, rapid COVID test is to be administered to patient Reason For Visit: AMS,HYPONATREMIA,ARF RISK OF INTUBATION Physical Exam Vital Signs: Temp Pulse Resp BP Pulse Ox 98.2 F 79 18 149/66 H 100 06/02/20 11:38 06/02/20 14:00 06/02/20 11:38 06/02/20 11:38 06/02/20 11:38 Intake & Output 06/01/20 06/02/20 06/03/20 06:59 06:59 06:59 Intake Total 1390 1310 Output Total 1275 1155 Balance 115 155 Weight 101.4 kg 100.9 kg General appearance: PRESENT: no acute distress Eye exam: PRESENT: PERRLA Respiratory exam: PRESENT: clear to auscultation martínez Cardiovascular exam: PRESENT: +S1, +S2 GI/Abdominal exam: PRESENT: soft Neurological exam: PRESENT: alert, CN II-XII grossly intact Results Laboratory Results: 06/01/20 19:37 06/02/20 09:00 06/01/20 06/01/20 06/02/20 19:37 19:37 09:00 WBC 2.5 L D RBC 3.42 L Hgb 8.9 L Hct 25.1 L MCV 74 L MCH 25.8 L MCHC 35.2 RDW 16.6 H Plt Count 171 Seg Neutrophils % 75.6 Sodium 130.4 L 131.1 L Potassium 3.4 L 3.2 L Chloride 98 99 Carbon Dioxide 25 25 Anion Gap 7 7 BUN 20 14 Creatinine 1.30 H 1.10 Est GFR ( Amer) 50 L > 60 Glucose 93 89 Calcium 7.3 L 6.8 L* Total Bilirubin 0.4 0.4 AST 74 H 70 H Alkaline Phosphatase 82 78 Total Protein 4.6 L 4.8 L Albumin 2.6 L 2.6 L 05/27/20 05/27/20 05/27/20 16:14 16:14 16:14 Creatine Kinase 367 H CK-MB (CK-2) Troponin I < 0.012 NT-Pro-B Natriuret Pep 168 H 05/27/20 05/27/20 05/28/20 22:52 22:52 05:24 Creatine Kinase 573 H 648 H CK-MB (CK-2) 7.03 H Troponin I < 0.012 NT-Pro-B Natriuret Pep 05/28/20 05/28/20 05/28/20 05:24 10:45 13:37 Creatine Kinase 595 H CK-MB (CK-2) 6.58 H 6.50 H Troponin I < 0.012 < 0.012 NT-Pro-B Natriuret Pep Impressions: Chest X-Ray 05/27/20 13:04 IMPRESSION: NO ACUTE RADIOGRAPHIC FINDING IN THE CHEST. Head CT 05/28/20 00:00 IMPRESSION: No acute intracranial abnormality. EVIDENCE OF ACUTE STROKE: NO. Renal Ultrasound 05/28/20 00:00 IMPRESSION: Cortical thinning bilaterally. No other significant finding. KUB X-Ray 05/29/20 10:09 IMPRESSION: Nasogastric tube tip in the antrum of the stomach. Assessment & Plan - Diagnosis (1) Hyponatremia Is this a current diagnosis for this admission?: Yes Plan: This is resolved (2) Erysipelas Is this a current diagnosis for this admission?: Yes Plan: This is improved (3) Acute kidney injury Is this a current diagnosis for this admission?: Yes Plan: This is resolved (4) Metabolic encephalopathy Is this a current diagnosis for this admission?: Yes Plan: This is improved - Time Time Spent with patient: 25-34 minutes Level of Care: IMCU Medications reviewed and adjusted accordingly: Yes Anticipated discharge: Home Anticipated DC Timeframe: within 72 hours - Inpatient Certification Based on my medical assessment, after consideration of the patient's comorbidities, presenting symptoms, or acuity I expect that the services needed warrant INPATIENT care.: Yes I certify that my determination is in accordance with my understanding of Medicare's requirements for reasonable and necessary INPATIENT services [42 CFR 412.3e].: Yes
[2020-06-02] MEDS ORDERED: POTASSI CL 20 MEQ/50 ML RIDER 20 MEQ/50 ML RTUPB IV ONE (17:00)
--- NOTE | 2020-06-02 21:39 | RADIOLOGY REPORT (SQ) ---
EXAM DESCRIPTION: [facility]: XR CHEST 1 VIEW CLINICAL HISTORY: 64 years Female; COVID ; COMPARISON: 05/27/2020 FINDINGS: Lungs: There is an ill-defined alveolar interstitial infiltrate in the medial right upper lobe, new since prior exam. Left lung remains clear. No pneumothorax or pleural effusion. Mediastinum: Right subclavian line is again noted, tip in the SVC. Left PICC line remains in place, tip in the left subclavian vein near the confluence with the internal jugular vein. Mediastinum is otherwise unremarkable. Bones: Thoracic spinal electrodes are again noted. IMPRESSION: 1. Right upper lobe infiltrate, new since 05/27/2020, consistent with pneumonia
[2020-06-02] MEDS: DEXAMETHASONE SOD PHOSPHATE INJ 4 MG/1 ML VIAL IV SCH (22:13)
[2020-06-02] MEDS: ATORVASTATIN CALCIUM 40 MG TABLET NG SCH (22:14)
[2020-06-03 05:27] LABS: ABSOLUTE LYMPHOCYTES (AUTO) 0.3 10^3/uL (0.5-4.7); ABSOLUTE MONOCYTES (AUTO) 0.2 10^3/uL (0.1-1.4); ABSOLUTE NEUT (AUTO) 3.1 10^3/uL (1.7-8.2); BASOPHILS % (AUTO) 0.1 % (0-2); HEMATOCRIT 27.5 % (36.0-47.0); HEMOGLOBIN 9.6 g/dL (12.0-15.5); LYMPHOCYTES % (AUTO) 8.7 % (13-45); MEAN CORPUSCULAR HEMOGLOBIN 25.9 pg (27.0-33.4); MEAN CORPUSCULAR HGB CONC 35.1 g/dL (32.0-36.0); MEAN CORPUSCULAR VOLUME 74 fl (80-97); PLATELET COUNT 167 10^3/uL (150-450); RED BLOOD COUNT 3.72 10^6/uL (3.72-5.28); SEGMENTED NEUTROPHILS % (AUTO) 86.2 % (42-78); TOTAL CELLS COUNTED % (AUTO) 100 %; WHITE BLOOD COUNT 3.6 10^3/uL (4.0-10.5)
[2020-06-03] MEDS: CLINDAMYCIN 600 MG/D5W RTU 600 MG/50 ML RTUPB IV SCH ×2 (05:32→14:06)
[2020-06-03 05:48] LABS: ALBUMIN 2.9 g/dL (3.5-5.0); ALKALINE PHOSPHATASE 83 U/L (38-126); ANION GAP 12 (5-19); ASPARTATE AMINO TRANSFERASE 69 U/L (14-36); BILIRUBIN,DIRECT 0.4 mg/dL (0.0-0.4); BILIRUBIN,TOTAL 0.6 mg/dL (0.2-1.3); BLOOD UREA NITROGEN 13 mg/dL (7-20); CARBON DIOXIDE 20 mmol/L (22-30); CHLORIDE 100 mmol/L (98-107); GLUCOSE 85 mg/dL (75-110); POTASSIUM 3.7 mmol/L (3.6-5.0); TOTAL PROTEIN 5.2 g/dL (6.3-8.2)
[2020-06-03 06:04] LABS: CALCIUM 6.9 mg/dL (8.4-10.2)
[2020-06-03] MEDS: SERTRALINE HCL 50 MG TABLET NG SCH (09:01)
[2020-06-03] MEDS: APIXABAN 5 MG TABLET NG SCH ×2 (09:01→17:08)
[2020-06-03] MEDS: PANTOPRAZOLE SODIUM 40 MG TABLET.DR PO SCH (09:01)
[2020-06-03] MEDS: DEXAMETHASONE SOD PHOSPHATE INJ 4 MG/1 ML VIAL IV SCH ×2 (09:01→21:55)
--- NOTE | 2020-06-03 20:20 | PDOC PROGRESS REPORT ---
Subjective Progress Note for:: 06/03/20 Subjective:: Patient seen by the bedside, the chest x-ray that was done demonstrated new right upper lobe infiltrate, the SARS-CoV-2 test was positive, this suggests that this may be COVID-19 positive test (U07.1, COVID-19) with Acute Pneumonia (J12.89, Other viral pneumonia)(If respiratory failure or sepsis present, add as separate assessment) Difficult to rule out bacterial pneumonia, the oxygen saturation is 100% suggesting no hypoxemia, no particular need for Remdesivir st art dexamethasone Reason For Visit: AMS,HYPONATREMIA,ARF RISK OF INTUBATION Physical Exam Vital Signs: Temp Pulse Resp BP Pulse Ox 97.9 F 67 17 144/90 H 100 06/03/20 15:31 06/03/20 19:00 06/03/20 15:31 06/03/20 15:31 06/03/20 15:31 Intake & Output 06/02/20 06/03/20 06/04/20 06:59 06:59 06:59 Intake Total 1310 400 248 Output Total 1155 1125 300 Balance 155 -725 -52 Weight 100.9 kg 98.9 kg General appearance: PRESENT: no acute distress Eye exam: PRESENT: PERRLA Respiratory exam: PRESENT: clear to auscultation martínez Cardiovascular exam: PRESENT: +S1, +S2 GI/Abdominal exam: PRESENT: soft Neurological exam: PRESENT: alert Results Laboratory Results: 06/03/20 04:35 06/03/20 04:35 06/03/20 06/03/20 04:35 04:35 WBC 3.6 L RBC 3.72 Hgb 9.6 L Hct 27.5 L MCV 74 L MCH 25.9 L MCHC 35.1 RDW 17.0 H Plt Count 167 Seg Neutrophils % 86.2 H Sodium 131.9 L Potassium 3.7 Chloride 100 Carbon Dioxide 20 L Anion Gap 12 BUN 13 Creatinine 0.96 Est GFR ( Amer) > 60 Glucose 85 Calcium 6.9 L* Total Bilirubin 0.6 AST 69 H Alkaline Phosphatase 83 Total Protein 5.2 L Albumin 2.9 L 05/27/20 05/27/20 05/27/20 16:14 16:14 16:14 Creatine Kinase 367 H CK-MB (CK-2) Troponin I < 0.012 NT-Pro-B Natriuret Pep 168 H 05/27/20 05/27/20 05/28/20 22:52 22:52 05:24 Creatine Kinase 573 H 648 H CK-MB (CK-2) 7.03 H Troponin I < 0.012 NT-Pro-B Natriuret Pep 05/28/20 05/28/20 05/28/20 05:24 10:45 13:37 Creatine Kinase 595 H CK-MB (CK-2) 6.58 H 6.50 H Troponin I < 0.012 < 0.012 NT-Pro-B Natriuret Pep Impressions: Head CT 05/28/20 00:00 IMPRESSION: No acute intracranial abnormality. EVIDENCE OF ACUTE STROKE: NO. Renal Ultrasound 05/28/20 00:00 IMPRESSION: Cortical thinning bilaterally. No other significant finding. KUB X-Ray 05/29/20 10:09 IMPRESSION: Nasogastric tube tip in the antrum of the stomach. Chest X-Ray 06/02/20 00:00 IMPRESSION: 1. Right upper lobe infiltrate, new since 05/27/2020, consistent with pneumonia Assessment & Plan - Diagnosis (1) Hyponatremia Is this a current diagnosis for this admission?: Yes (2) Erysipelas Is this a current diagnosis for this admission?: Yes Plan: This is improved (3) Acute kidney injury Is this a current diagnosis for this admission?: Yes Plan: This is resolved (4) Metabolic encephalopathy Is this a current diagnosis for this admission?: Yes Plan: This is improved (5) Pneumonia due to COVID-19 virus Is this a current diagnosis for this admission?: Yes Plan: She has a new right upper lobe infiltrate, positive SARS-CoV-2 infection, continue dexamethasone,? remdesivir,also start antibiotic to cover hospital acquired pneumonia ,she has pencillin allergy ,start IV ertapenem - Time Time Spent with patient: 25-34 minutes Level of Care: IMCU Medications reviewed and adjusted accordingly: Yes Anticipated discharge: Home Anticipated DC Timeframe: within 72 hours
[2020-06-03] MEDS ORDERED: ERTAPENEM SODIUM 1 GM in NORMAL SALINE 50 ML IV SCH (20:30)
[2020-06-03] MEDS: ATORVASTATIN CALCIUM 40 MG TABLET NG SCH (21:55)
[2020-06-03] MEDS ORDERED: CLINDAMYCIN HCL 150 MG CAPSULE PO SCH (22:00)
[2020-06-03] MEDS: MEROPENEM 1 GM in NORMAL SALINE 50 ML IV SCH (22:00)
[2020-06-03] MEDS: POTASSI CL 20 MEQ/D5-1/2NS 1L 1,000 ML IV PRN (22:03)
[2020-06-04] MEDS: MEROPENEM 1 GM in NORMAL SALINE 50 ML IV SCH ×3 (05:38→21:19)
[2020-06-04] MEDS: PANTOPRAZOLE SODIUM 40 MG TABLET.DR PO SCH (05:43)
[2020-06-04] MEDS: SERTRALINE HCL 50 MG TABLET NG SCH (09:05)
[2020-06-04] MEDS: DEXAMETHASONE SOD PHOSPHATE INJ 4 MG/1 ML VIAL IV SCH ×2 (09:05→21:18)
[2020-06-04] MEDS: APIXABAN 5 MG TABLET NG SCH ×2 (09:05→17:08)
[2020-06-04] MEDS: POTASSI CL 20 MEQ/D5-1/2NS 1L 1,000 ML IV PRN (19:50)
--- NOTE | 2020-06-04 21:12 | PDOC PROGRESS REPORT ---
Subjective Progress Note for:: 06/04/20 Subjective:: Patient seen by the bedside she has right upper lobe pneumonia, positive for SARS-CoV-2 infection Reason For Visit: AMS,HYPONATREMIA,ARF RISK OF INTUBATION Physical Exam Vital Signs: Temp Pulse Resp BP Pulse Ox 98.0 F 75 15 150/76 H 96 06/04/20 17:16 06/04/20 19:00 06/04/20 17:16 06/04/20 17:16 06/04/20 17:16 Intake & Output 06/03/20 06/04/20 06/05/20 06:59 06:59 06:59 Intake Total 6422 060 9204 Output Total 1125 675 400 Balance 275 -77 650 Weight 98.9 kg 97.3 kg 97.3 kg General appearance: PRESENT: no acute distress Eye exam: PRESENT: PERRLA Respiratory exam: PRESENT: clear to auscultation martínez Cardiovascular exam: PRESENT: +S1, +S2 GI/Abdominal exam: PRESENT: soft Neurological exam: PRESENT: alert Results Laboratory Results: 06/03/20 04:35 06/03/20 04:35 05/27/20 05/27/20 05/27/20 16:14 16:14 16:14 Creatine Kinase 367 H CK-MB (CK-2) Troponin I < 0.012 NT-Pro-B Natriuret Pep 168 H 05/27/20 05/27/20 05/28/20 22:52 22:52 05:24 Creatine Kinase 573 H 648 H CK-MB (CK-2) 7.03 H Troponin I < 0.012 NT-Pro-B Natriuret Pep 05/28/20 05/28/20 05/28/20 05:24 10:45 13:37 Creatine Kinase 595 H CK-MB (CK-2) 6.58 H 6.50 H Troponin I < 0.012 < 0.012 NT-Pro-B Natriuret Pep Impressions: Head CT 05/28/20 00:00 IMPRESSION: No acute intracranial abnormality. EVIDENCE OF ACUTE STROKE: NO. Renal Ultrasound 05/28/20 00:00 IMPRESSION: Cortical thinning bilaterally. No other significant finding. KUB X-Ray 05/29/20 10:09 IMPRESSION: Nasogastric tube tip in the antrum of the stomach. Chest X-Ray 06/02/20 00:00 IMPRESSION: 1. Right upper lobe infiltrate, new since 05/27/2020, consistent with pneumonia Assessment & Plan - Diagnosis (1) Hyponatremia Is this a current diagnosis for this admission?: Yes Plan: Resolved (2) Erysipelas Is this a current diagnosis for this admission?: Yes Plan: This is improved (3) Acute kidney injury Is this a current diagnosis for this admission?: Yes Plan: This is resolved (4) Metabolic encephalopathy Is this a current diagnosis for this admission?: Yes Plan: This is improved (5) Pneumonia due to COVID-19 virus Is this a current diagnosis for this admission?: Yes Plan: She has a new right upper lobe infiltrate, positive SARS-CoV-2 infection, continue dexamethasone,? remdesivir,also start antibiotic to cover hospital acquired pneumonia ,she has pencillin allergy ,on IV meropenem - Time Time Spent with patient: 25-34 minutes Level of Care: IMCU Medications reviewed and adjusted accordingly: Yes Anticipated discharge: Home Anticipated DC Timeframe: within 72 hours - Inpatient Certification Based on my medical assessment, after consideration of the patient's comorbidities, presenting symptoms, or acuity I expect that the services needed warrant INPATIENT care.: Yes I certify that my determination is in accordance with my understanding of Medicare's requirements for reasonable and necessary INPATIENT services [42 CFR 412.3e].: Yes
[2020-06-04] MEDS: ATORVASTATIN CALCIUM 40 MG TABLET NG SCH (21:18)
[2020-06-05] MEDS: PANTOPRAZOLE SODIUM 40 MG TABLET.DR PO SCH (05:53)
[2020-06-05] MEDS: MEROPENEM 1 GM in NORMAL SALINE 50 ML IV SCH ×3 (05:53→22:31)
[2020-06-05] MEDS: HYDROMORPHONE HCL INJ/PF 2 MG/ML AMPULE IV PRN ×3 (08:56→22:30)
[2020-06-05] MEDS: DEXAMETHASONE SOD PHOSPHATE INJ 4 MG/1 ML VIAL IV SCH ×2 (09:02→22:31)
[2020-06-05] MEDS: SERTRALINE HCL 50 MG TABLET NG SCH (09:02)
[2020-06-05] MEDS: APIXABAN 5 MG TABLET NG SCH ×2 (09:02→17:23)
--- NOTE | 2020-06-05 13:39 | PDOC PROGRESS REPORT ---
Subjective Progress Note for:: 06/05/20 Subjective:: Patient seen by the bedside, she has less cough Reason For Visit: AMS,HYPONATREMIA,ARF RISK OF INTUBATION Physical Exam Vital Signs: Temp Pulse Resp BP Pulse Ox 98.7 F 72 19 145/69 H 96 06/05/20 12:00 06/05/20 12:00 06/05/20 12:00 06/05/20 12:00 06/05/20 12:00 Intake & Output 06/04/20 06/05/20 06/06/20 06:59 06:59 06:59 Intake Total 598 1450 Output Total 675 1000 400 Balance -77 450 -400 Weight 97.3 kg 97.5 kg General appearance: PRESENT: no acute distress Eye exam: PRESENT: PERRLA Respiratory exam: PRESENT: clear to auscultation martínez Cardiovascular exam: PRESENT: +S1, +S2 Neurological exam: PRESENT: alert Results Laboratory Results: 06/03/20 04:35 06/03/20 04:35 05/27/20 05/27/20 05/27/20 16:14 16:14 16:14 Creatine Kinase 367 H CK-MB (CK-2) Troponin I < 0.012 NT-Pro-B Natriuret Pep 168 H 05/27/20 05/27/20 05/28/20 22:52 22:52 05:24 Creatine Kinase 573 H 648 H CK-MB (CK-2) 7.03 H Troponin I < 0.012 NT-Pro-B Natriuret Pep 05/28/20 05/28/20 05/28/20 05:24 10:45 13:37 Creatine Kinase 595 H CK-MB (CK-2) 6.58 H 6.50 H Troponin I < 0.012 < 0.012 NT-Pro-B Natriuret Pep Impressions: Head CT 05/28/20 00:00 IMPRESSION: No acute intracranial abnormality. EVIDENCE OF ACUTE STROKE: NO. Renal Ultrasound 05/28/20 00:00 IMPRESSION: Cortical thinning bilaterally. No other significant finding. KUB X-Ray 05/29/20 10:09 IMPRESSION: Nasogastric tube tip in the antrum of the stomach. Chest X-Ray 06/02/20 00:00 IMPRESSION: 1. Right upper lobe infiltrate, new since 05/27/2020, consistent with pneumonia Assessment & Plan - Diagnosis (1) Hyponatremia Is this a current diagnosis for this admission?: Yes Plan: Resolved (2) Erysipelas Is this a current diagnosis for this admission?: Yes Plan: This is improved (3) Acute kidney injury Is this a current diagnosis for this admission?: Yes Plan: This is resolved (4) Metabolic encephalopathy Is this a current diagnosis for this admission?: Yes (5) Pneumonia due to COVID-19 virus Is this a current diagnosis for this admission?: Yes Plan: Continue dexamethasone, followed chest x-ray, continue antibiotic - Time Time Spent with patient: 35 or more minutes Level of Care: IMCU Medications reviewed and adjusted accordingly: Yes Anticipated discharge: Home Anticipated DC Timeframe: Other
--- NOTE | 2020-06-05 14:30 | RADIOLOGY REPORT (SQ) ---
EXAM DESCRIPTION: CHEST SINGLE VIEW IMAGES COMPLETED DATE/TIME: 06/05/2020 2:15 pm REASON FOR STUDY: pneumonia COMPARISON: 06/02/2020 TECHNIQUE: Single frontal radiographic view of the chest acquired. NUMBER OF VIEWS: One view. LIMITATIONS: None. FINDINGS: LUNGS AND PLEURA: No pneumothorax. No consolidation or pleural effusion. MEDIASTINUM AND HILAR STRUCTURES: Stable. HEART AND VASCULAR STRUCTURES: Stable. BONES: No acute findings. HARDWARE: Old right subclavian catheter. Similar appearance of left-sided PICC line catheter tip ove rlying the region of the medial left subclavian vein. Thoracic stimulator leads. OTHER: No other significant finding. IMPRESSION: NO ACUTE FINDINGS. TECHNICAL DOCUMENTATION: JOB ID: [id number] [id number] 2010 [employer]- All Rights Reserved Reading location - IP/workstation name: [employer]
[2020-06-05 15:00] LABS: ABSOLUTE LYMPHOCYTES (AUTO) 0.6 10^3/uL (0.5-4.7); ABSOLUTE MONOCYTES (AUTO) 0.4 10^3/uL (0.1-1.4); ABSOLUTE NEUT (AUTO) 5.2 10^3/uL (1.7-8.2); BASOPHILS % (AUTO) 0.1 % (0-2); HEMATOCRIT 27.3 % (36.0-47.0); HEMOGLOBIN 9.5 g/dL (12.0-15.5); LYMPHOCYTES % (AUTO) 9.4 % (13-45); MEAN CORPUSCULAR HEMOGLOBIN 25.9 pg (27.0-33.4); MEAN CORPUSCULAR VOLUME 74 fl (80-97); MONOCYTES % (AUTO) 5.8 % (3-13); PLATELET COUNT 185 10^3/uL (150-450); RED BLOOD COUNT 3.69 10^6/uL (3.72-5.28); SEGMENTED NEUTROPHILS % (AUTO) 84.7 % (42-78); TOTAL CELLS COUNTED % (AUTO) 100 %; WHITE BLOOD COUNT 6.1 10^3/uL (4.0-10.5)
[2020-06-05 15:07] LABS: ALBUMIN 3.1 g/dL (3.5-5.0); ALKALINE PHOSPHATASE 77 U/L (38-126); ANION GAP 10 (5-19); ASPARTATE AMINO TRANSFERASE 43 U/L (14-36); BILIRUBIN,DIRECT 0.4 mg/dL (0.0-0.4); BILIRUBIN,TOTAL 0.7 mg/dL (0.2-1.3); BLOOD UREA NITROGEN 12 mg/dL (7-20); CARBON DIOXIDE 20 mmol/L (22-30); CHLORIDE 103 mmol/L (98-107); GLUCOSE 98 mg/dL (75-110); POTASSIUM 3.7 mmol/L (3.6-5.0); TOTAL PROTEIN 5.6 g/dL (6.3-8.2)
[2020-06-05 15:15] LABS: CALCIUM 6.8 mg/dL (8.4-10.2)
[2020-06-05] MEDS: POTASSI CL 20 MEQ/D5-1/2NS 1L 1,000 ML IV PRN (17:57)
[2020-06-05] MEDS: ATORVASTATIN CALCIUM 40 MG TABLET NG SCH (22:32)
[2020-06-06] MEDS: HYDROMORPHONE HCL INJ/PF 2 MG/ML AMPULE IV PRN ×5 (04:09→23:37)
[2020-06-06] MEDS: PANTOPRAZOLE SODIUM 40 MG TABLET.DR PO SCH (05:17)
[2020-06-06] MEDS: MEROPENEM 1 GM in NORMAL SALINE 50 ML IV SCH ×3 (05:17→21:37)
[2020-06-06 07:10] LABS: ABSOLUTE LYMPHOCYTES (AUTO) 0.5 10^3/uL (0.5-4.7); ABSOLUTE MONOCYTES (AUTO) 0.4 10^3/uL (0.1-1.4); ABSOLUTE NEUT (AUTO) 6.6 10^3/uL (1.7-8.2); BASOPHILS % (AUTO) 0.1 % (0-2); HEMATOCRIT 29.2 % (36.0-47.0); HEMOGLOBIN 10.2 g/dL (12.0-15.5); LYMPHOCYTES % (AUTO) 6.1 % (13-45); MEAN CORPUSCULAR HEMOGLOBIN 26.1 pg (27.0-33.4); MEAN CORPUSCULAR HGB CONC 35.1 g/dL (32.0-36.0); MEAN CORPUSCULAR VOLUME 74 fl (80-97); MONOCYTES % (AUTO) 5.3 % (3-13); PLATELET COUNT 214 10^3/uL (150-450); RED BLOOD COUNT 3.92 10^6/uL (3.72-5.28); RED CELL DISTRIBUTION WIDTH 16.9 % (11.5-14.0); SEGMENTED NEUTROPHILS % (AUTO) 88.5 % (42-78); TOTAL CELLS COUNTED % (AUTO) 100 %; WHITE BLOOD COUNT 7.5 10^3/uL (4.0-10.5)
[2020-06-06 07:34] LABS: ALBUMIN 3.5 g/dL (3.5-5.0); ALKALINE PHOSPHATASE 83 U/L (38-126); ANION GAP 10 (5-19); ASPARTATE AMINO TRANSFERASE 41 U/L (14-36); BILIRUBIN,DIRECT 0.4 mg/dL (0.0-0.4); BILIRUBIN,TOTAL 0.8 mg/dL (0.2-1.3); BLOOD UREA NITROGEN 13 mg/dL (7-20); CALCIUM 7.1 mg/dL (8.4-10.2); CARBON DIOXIDE 19 mmol/L (22-30); CHLORIDE 104 mmol/L (98-107); GLUCOSE 105 mg/dL (75-110); POTASSIUM 4.2 mmol/L (3.6-5.0); TOTAL PROTEIN 6.2 g/dL (6.3-8.2)
[2020-06-06] MEDS: DEXAMETHASONE SOD PHOSPHATE INJ 4 MG/1 ML VIAL IV SCH ×2 (09:15→21:37)
[2020-06-06] MEDS: APIXABAN 5 MG TABLET NG SCH ×2 (09:16→18:14)
[2020-06-06] MEDS: SERTRALINE HCL 50 MG TABLET NG SCH (09:16)
--- NOTE | 2020-06-06 14:56 | PDOC PROGRESS REPORT ---
Subjective Progress Note for:: 06/06/20 Subjective:: Patient seen by the bedside, she continues to make progress Reason For Visit: AMS,HYPONATREMIA,ARF RISK OF INTUBATION Physical Exam Vital Signs: Temp Pulse Resp BP Pulse Ox 97.7 F 85 16 146/85 H 96 06/06/20 11:46 06/06/20 11:46 06/06/20 11:46 06/06/20 11:46 06/06/20 11:46 Intake & Output 06/05/20 06/06/20 06/07/20 06:59 06:59 06:59 Intake Total 1450 1250 Output Total 1000 1200 Balance 450 50 Weight 97.5 kg 97.5 kg General appearance: PRESENT: no acute distress, well-developed, well-nourished Head exam: PRESENT: atraumatic, normocephalic Eye exam: PRESENT: conjunctiva pink, EOMI, PERRLA Ear exam: PRESENT: normal external ear exam Mouth exam: PRESENT: moist, tongue midline Neck exam: PRESENT: full ROM Respiratory exam: PRESENT: clear to auscultation martínez Cardiovascular exam: PRESENT: RRR, +S1, +S2 Pulses: PRESENT: normal dorsalis pedis pul, +2 pedal pulses bilateral Vascular exam: PRESENT: normal capillary refill GI/Abdominal exam: PRESENT: normal bowel sounds, soft Rectal exam: PRESENT: deferred Neurological exam: PRESENT: alert, CN II-XII grossly intact Psychiatric exam: PRESENT: appropriate affect, normal mood Skin exam: PRESENT: dry, intact, warm. ABSENT: cyanosis, rash Results Laboratory Results: 06/06/20 06:55 06/06/20 06:55 06/05/20 06/05/20 06/06/20 14:35 14:35 06:55 WBC 6.1 7.5 RBC 3.69 L 3.92 Hgb 9.5 L 10.2 L Hct 27.3 L 29.2 L MCV 74 L 74 L MCH 25.9 L 26.1 L MCHC 35.0 35.1 RDW 17.0 H 16.9 H Plt Count 185 214 Seg Neutrophils % 84.7 H 88.5 H Sodium 132.8 L Potassium 3.7 Chloride 103 Carbon Dioxide 20 L Anion Gap 10 BUN 12 Creatinine 0.89 Est GFR ( Amer) > 60 Glucose 98 Calcium 6.8 L* Total Bilirubin 0.7 AST 43 H Alkaline Phosphatase 77 Total Protein 5.6 L Albumin 3.1 L 06/06/20 06:55 WBC RBC Hgb Hct MCV MCH MCHC RDW Plt Count Seg Neutrophils % Sodium 133.4 L Potassium 4.2 Chloride 104 Carbon Dioxide 19 L Anion Gap 10 BUN 13 Creatinine 0.86 Est GFR ( Amer) > 60 Glucose 105 Calcium 7.1 L Total Bilirubin 0.8 AST 41 H Alkaline Phosphatase 83 Total Protein 6.2 L Albumin 3.5 05/27/20 05/27/20 05/27/20 16:14 16:14 16:14 Creatine Kinase 367 H CK-MB (CK-2) Troponin I < 0.012 NT-Pro-B Natriuret Pep 168 H 05/27/20 05/27/20 05/28/20 22:52 22:52 05:24 Creatine Kinase 573 H 648 H CK-MB (CK-2) 7.03 H Troponin I < 0.012 NT-Pro-B Natriuret Pep 05/28/20 05/28/20 05/28/20 05:24 10:45 13:37 Creatine Kinase 595 H CK-MB (CK-2) 6.58 H 6.50 H Troponin I < 0.012 < 0.012 NT-Pro-B Natriuret Pep Impressions: Head CT 05/28/20 00:00 IMPRESSION: No acute intracranial abnormality. EVIDENCE OF ACUTE STROKE: NO. Renal Ultrasound 05/28/20 00:00 IMPRESSION: Cortical thinning bilaterally. No other significant finding. KUB X-Ray 05/29/20 10:09 IMPRESSION: Nasogastric tube tip in the antrum of the stomach. Chest X-Ray 06/05/20 00:00 IMPRESSION: NO ACUTE FINDINGS. Assessment & Plan - Diagnosis (1) Hyponatremia Is this a current diagnosis for this admission?: Yes Plan: Resolved (2) Erysipelas Is this a current diagnosis for this admission?: Yes Plan: Resolved (3) Acute kidney injury Is this a current diagnosis for this admission?: Yes Plan: Resolved (4) Metabolic encephalopathy Is this a current diagnosis for this admission?: Yes Plan: Resolved (5) Pneumonia due to COVID-19 virus Is this a current diagnosis for this admission?: Yes Plan: Continue dexamethasone, followed chest x-ray, continue antibiotic - Time Time Spent with patient: 25-34 minutes Medications reviewed and adjusted accordingly: Yes Anticipated discharge: Home Anticipated DC Timeframe: within 72 hours, Other
[2020-06-06] MEDS: POTASSI CL 20 MEQ/D5-1/2NS 1L 1,000 ML IV PRN (15:13)
[2020-06-06] MEDS: NYSTATIN CREAM 15 GM TP SCH (18:15)
[2020-06-06] MEDS: ATORVASTATIN CALCIUM 40 MG TABLET NG SCH (21:37)
[2020-06-07] MEDS: HYDROMORPHONE HCL INJ/PF 2 MG/ML AMPULE IV PRN ×3 (04:03→23:54)
[2020-06-07] MEDS: PANTOPRAZOLE SODIUM 40 MG TABLET.DR PO SCH (05:38)
[2020-06-07] MEDS: MEROPENEM 1 GM in NORMAL SALINE 50 ML IV SCH ×3 (05:38→22:37)
[2020-06-07] MEDS: DEXAMETHASONE SOD PHOSPHATE INJ 4 MG/1 ML VIAL IV SCH ×2 (09:25→22:36)
[2020-06-07] MEDS: NYSTATIN CREAM 15 GM TP SCH ×3 (09:26→17:15)
[2020-06-07] MEDS: SERTRALINE HCL 50 MG TABLET NG SCH (09:26)
[2020-06-07] MEDS: APIXABAN 5 MG TABLET NG SCH ×2 (09:26→17:15)
[2020-06-07] MEDS: POTASSI CL 20 MEQ/D5-1/2NS 1L 1,000 ML IV PRN (09:27)
--- NOTE | 2020-06-07 21:42 | PDOC PROGRESS REPORT ---
Subjective Progress Note for:: 06/07/20 Subjective:: Patient seen by the bedside, she complain of pain, requesting opioids for pain control Reason For Visit: AMS,HYPONATREMIA,ARF RISK OF INTUBATION Physical Exam Vital Signs: Temp Pulse Resp BP Pulse Ox 97.3 F 97 18 112/68 97 06/07/20 20:00 06/07/20 20:00 06/07/20 20:00 06/07/20 20:00 06/07/20 20:00 Intake & Output 06/06/20 06/07/20 06/08/20 06:59 06:59 06:59 Intake Total 1250 1670 1242 Output Total 1200 1370 800 Balance 50 300 442 Weight 97.5 kg 96.7 kg 96.7 kg General appearance: PRESENT: no acute distress Eye exam: PRESENT: PERRLA Respiratory exam: PRESENT: clear to auscultation martínez Cardiovascular exam: PRESENT: +S1, +S2 Neurological exam: PRESENT: alert, CN II-XII grossly intact Results Laboratory Results: 06/06/20 06:55 06/06/20 06:55 05/27/20 05/27/20 05/27/20 16:14 16:14 16:14 Creatine Kinase 367 H CK-MB (CK-2) Troponin I < 0.012 NT-Pro-B Natriuret Pep 168 H 05/27/20 05/27/20 05/28/20 22:52 22:52 05:24 Creatine Kinase 573 H 648 H CK-MB (CK-2) 7.03 H Troponin I < 0.012 NT-Pro-B Natriuret Pep 05/28/20 05/28/20 05/28/20 05:24 10:45 13:37 Creatine Kinase 595 H CK-MB (CK-2) 6.58 H 6.50 H Troponin I < 0.012 < 0.012 NT-Pro-B Natriuret Pep Impressions: Head CT 05/28/20 00:00 IMPRESSION: No acute intracranial abnormality. EVIDENCE OF ACUTE STROKE: NO. Renal Ultrasound 05/28/20 00:00 IMPRESSION: Cortical thinning bilaterally. No other significant finding. KUB X-Ray 05/29/20 10:09 IMPRESSION: Nasogastric tube tip in the antrum of the stomach. Chest X-Ray 06/05/20 00:00 IMPRESSION: NO ACUTE FINDINGS. Assessment & Plan - Diagnosis (1) Hyponatremia Is this a current diagnosis for this admission?: Yes Plan: Resolved (2) Erysipelas Is this a current diagnosis for this admission?: Yes Plan: Resolved (3) Acute kidney injury Is this a current diagnosis for this admission?: Yes Plan: Resolved (4) Metabolic encephalopathy Is this a current diagnosis for this admission?: Yes Plan: Resolved (5) Pneumonia due to COVID-19 virus Is this a current diagnosis for this admission?: Yes Plan: Continue dexamethasone, followed chest x-ray, continue antibiotic - Time Time Spent with patient: 25-34 minutes Level of Care: IMCU Medications reviewed and adjusted accordingly: Yes Anticipated discharge: Home Anticipated DC Timeframe: within 72 hours
[2020-06-07] MEDS: ATORVASTATIN CALCIUM 40 MG TABLET NG SCH (22:37)
[2020-06-08] MEDS: PANTOPRAZOLE SODIUM 40 MG TABLET.DR PO SCH (05:17)
[2020-06-08] MEDS: MEROPENEM 1 GM in NORMAL SALINE 50 ML IV SCH ×3 (05:17→21:48)
[2020-06-08] MEDS: DEXAMETHASONE SOD PHOSPHATE INJ 4 MG/1 ML VIAL IV SCH ×2 (09:34→21:49)
[2020-06-08] MEDS: APIXABAN 5 MG TABLET NG SCH ×2 (09:34→16:59)
[2020-06-08] MEDS: POTASSI CL 20 MEQ/D5-1/2NS 1L 1,000 ML IV PRN (09:36)
[2020-06-08] MEDS: NYSTATIN CREAM 15 GM TP SCH ×3 (09:36→16:59)
[2020-06-08] MEDS: SERTRALINE HCL 50 MG TABLET NG SCH (13:06)
[2020-06-08] MEDS: HYDROMORPHONE HCL INJ/PF 2 MG/ML AMPULE IV PRN ×2 (16:54→21:49)
--- NOTE | 2020-06-08 19:39 | PDOC PROGRESS REPORT ---
Subjective Progress Note for:: 06/08/20 Subjective:: Patient seen by the bedside ,she is improving Reason For Visit: AMS,HYPONATREMIA,ARF RISK OF INTUBATION Physical Exam Vital Signs: Temp Pulse Resp BP Pulse Ox 98.2 F 74 20 119/62 100 06/08/20 11:07 06/08/20 13:57 06/08/20 11:07 06/08/20 11:07 06/08/20 11:07 Intake & Output 06/07/20 06/08/20 06/09/20 06:59 06:59 06:59 Intake Total 1670 2292 100 Output Total 1370 1800 1900 Balance 300 492 -1800 Weight 96.7 kg 96.7 kg General appearance: PRESENT: no acute distress Head exam: PRESENT: atraumatic, normocephalic Eye exam: PRESENT: PERRLA Neck exam: PRESENT: full ROM Cardiovascular exam: PRESENT: RRR, +S1, +S2 Vascular exam: PRESENT: normal capillary refill GI/Abdominal exam: PRESENT: normal bowel sounds, soft Rectal exam: PRESENT: deferred Neurological exam: PRESENT: alert, CN II-XII grossly intact. ABSENT: motor sensory deficit Psychiatric exam: PRESENT: appropriate affect, normal mood Skin exam: PRESENT: dry, intact, warm Results Laboratory Results: 06/06/20 06:55 06/06/20 06:55 05/27/20 05/27/20 05/27/20 16:14 16:14 16:14 Creatine Kinase 367 H CK-MB (CK-2) Troponin I < 0.012 NT-Pro-B Natriuret Pep 168 H 05/27/20 05/27/20 05/28/20 22:52 22:52 05:24 Creatine Kinase 573 H 648 H CK-MB (CK-2) 7.03 H Troponin I < 0.012 NT-Pro-B Natriuret Pep 05/28/20 05/28/20 05/28/20 05:24 10:45 13:37 Creatine Kinase 595 H CK-MB (CK-2) 6.58 H 6.50 H Troponin I < 0.012 < 0.012 NT-Pro-B Natriuret Pep Impressions: Head CT 05/28/20 00:00 IMPRESSION: No acute intracranial abnormality. EVIDENCE OF ACUTE STROKE: NO. Renal Ultrasound 05/28/20 00:00 IMPRESSION: Cortical thinning bilaterally. No other significant finding. KUB X-Ray 05/29/20 10:09 IMPRESSION: Nasogastric tube tip in the antrum of the stomach. Chest X-Ray 06/05/20 00:00 IMPRESSION: NO ACUTE FINDINGS. Assessment & Plan - Diagnosis (1) Hyponatremia Is this a current diagnosis for this admission?: Yes Plan: Resolved (2) Erysipelas Is this a current diagnosis for this admission?: Yes Plan: Resolved (3) Acute kidney injury Is this a current diagnosis for this admission?: Yes Plan: Resolved (4) Metabolic encephalopathy Is this a current diagnosis for this admission?: Yes Plan: Resolved (5) Pneumonia due to COVID-19 virus Is this a current diagnosis for this admission?: Yes Plan: Continue dexamethasone, followed chest x-ray, continue antibiotic - Time Time Spent with patient: 25-34 minutes Level of Care: IMCU Medications reviewed and adjusted accordingly: Yes Anticipated discharge: Home
[2020-06-08] MEDS: ATORVASTATIN CALCIUM 40 MG TABLET NG SCH (21:50)
[2020-06-09] MEDS: PANTOPRAZOLE SODIUM 40 MG TABLET.DR PO SCH (05:10)
[2020-06-09] MEDS: MEROPENEM 1 GM in NORMAL SALINE 50 ML IV SCH ×3 (05:10→22:29)
[2020-06-09] MEDS: NYSTATIN CREAM 15 GM TP SCH ×3 (10:32→17:42)
[2020-06-09] MEDS: APIXABAN 5 MG TABLET NG SCH ×2 (10:32→17:42)
[2020-06-09] MEDS: DEXAMETHASONE SOD PHOSPHATE INJ 4 MG/1 ML VIAL IV SCH ×2 (10:32→22:29)
[2020-06-09] MEDS: SERTRALINE HCL 50 MG TABLET NG SCH (10:33)
[2020-06-09] MEDS: POTASSI CL 20 MEQ/D5-1/2NS 1L 1,000 ML IV PRN (15:00)
--- NOTE | 2020-06-09 15:56 | PDOC PROGRESS REPORT ---
Subjective Progress Note for:: 06/09/20 Subjective:: Patient is seen by the bedside, she is clinically stable for discharge, she wants to go home tomorrow, we will transition the IV dexamethasone to p.o., she is to take a total of 10 days of dexamethasone, she has 3 days left. Reason For Visit: AMS,HYPONATREMIA,ARF RISK OF INTUBATION Physical Exam Vital Signs: Temp Pulse Resp BP Pulse Ox 97.6 F 99 19 114/72 97 06/09/20 11:15 06/09/20 14:00 06/09/20 11:15 06/09/20 11:15 06/09/20 11:15 Intake & Output 06/08/20 06/09/20 06/10/20 06:59 06:59 06:59 Intake Total 2292 150 1100 Output Total 1800 2475 Balance 492 -2325 1100 Weight 96.7 kg 93.6 kg General appearance: PRESENT: no acute distress Eye exam: PRESENT: PERRLA Respiratory exam: PRESENT: clear to auscultation martínez Cardiovascular exam: PRESENT: +S1, +S2 GI/Abdominal exam: PRESENT: soft Neurological exam: PRESENT: alert, CN II-XII grossly intact Results Laboratory Results: 06/06/20 06:55 06/06/20 06:55 05/27/20 05/27/20 05/27/20 16:14 16:14 16:14 Creatine Kinase 367 H CK-MB (CK-2) Troponin I < 0.012 NT-Pro-B Natriuret Pep 168 H 05/27/20 05/27/20 05/28/20 22:52 22:52 05:24 Creatine Kinase 573 H 648 H CK-MB (CK-2) 7.03 H Troponin I < 0.012 NT-Pro-B Natriuret Pep 05/28/20 05/28/20 05/28/20 05:24 10:45 13:37 Creatine Kinase 595 H CK-MB (CK-2) 6.58 H 6.50 H Troponin I < 0.012 < 0.012 NT-Pro-B Natriuret Pep Impressions: Head CT 05/28/20 00:00 IMPRESSION: No acute intracranial abnormality. EVIDENCE OF ACUTE STROKE: NO. Renal Ultrasound 05/28/20 00:00 IMPRESSION: Cortical thinning bilaterally. No other significant finding. KUB X-Ray 05/29/20 10:09 IMPRESSION: Nasogastric tube tip in the antrum of the stomach. Chest X-Ray 06/05/20 00:00 IMPRESSION: NO ACUTE FINDINGS. Assessment & Plan - Diagnosis (1) Hyponatremia Is this a current diagnosis for this admission?: Yes Plan: Resolved (2) Erysipelas Is this a current diagnosis for this admission?: Yes Plan: Resolved (3) Acute kidney injury Is this a current diagnosis for this admission?: Yes Plan: Resolved (4) Metabolic encephalopathy Is this a current diagnosis for this admission?: Yes Plan: Resolved (5) Pneumonia due to COVID-19 virus Is this a current diagnosis for this admission?: Yes Plan: Continue dexamethasone, followed chest x-ray, continue antibiotic - Time Time Spent with patient: 25-34 minutes Level of Care: IMCU Medications reviewed and adjusted accordingly: Yes Anticipated discharge: Home Anticipated DC Timeframe: within 24 hours
[2020-06-09] MEDS: HYDROMORPHONE HCL INJ/PF 2 MG/ML AMPULE IV PRN ×2 (16:04→20:37)
[2020-06-09] MEDS: ATORVASTATIN CALCIUM 40 MG TABLET NG SCH (22:30)
[2020-06-10] MEDS: MEROPENEM 1 GM in NORMAL SALINE 50 ML IV SCH (05:40)
[2020-06-10] MEDS: HYDROMORPHONE HCL INJ/PF 2 MG/ML AMPULE IV PRN (06:11)
[2020-06-10] MEDS: PANTOPRAZOLE SODIUM 40 MG TABLET.DR PO SCH (06:11)
--- NOTE | 2020-06-10 08:12 | PDOC DISCHARGE SUMMARY ---
Impression - Admit/DC Date/PCP Admission Date/Primary Care Provider: 05/27/20 18:37 IAN MUÑOZ MD Discharge Date: 06/10/20 - Discharge Diagnosis (1) Hyponatremia Is this a current diagnosis for this admission?: Yes (2) Erysipelas Is this a current diagnosis for this admission?: Yes (3) Acute kidney injury Is this a current diagnosis for this admission?: Yes (4) Metabolic encephalopathy Is this a current diagnosis for this admission?: Yes (5) Pneumonia due to COVID-19 virus Is this a current diagnosis for this admission?: Yes - Additional Information Resuscitation Status: Full Code Referrals: IAN MUÑOZ MD [Primary Care Provider] - 06/17/20 1:30 pm Prescriptions: Dexamethasone 6 mg PO DAILY #3 tablet Home Medications: Clopidogrel Bisulfate [Plavix 75 mg Tablet] 75 mg PO DAILY 07/10/19 Cyanocobalamin (Vitamin B-12) [Vitamin B-12 Inj 1000 Mcg/1 ml Vial] 1,000 mcg IM [id number] 07/10/19 Cyclobenzaprine HCl [Flexeril 10 mg Tablet] 10 mg PO Q8H 07/10/19 Levothyroxine Sodium [Synthroid 0.1 mg Tablet] 0.1 mg PO Q6AM 07/10/19 Montelukast Sodium [Singulair 10 mg Tablet] 10 mg PO DAILY 07/10/19 Sertraline HCl [Zoloft] 100 mg PO DAILY 07/10/19 Sucralfate [Carafate 1 gm Tablet] 1 gm PO QID 07/10/19 Apixaban [Eliquis 5 mg Tablet] 5 mg PO BID 05/27/20 Atorvastatin Calcium [Lipitor 40 mg Tablet] 40 mg PO QHS 05/27/20 Fentanyl [Duragesic 25 mcg/hr Transdermal Patch] 1 each TD Q3D 05/27/20 Gabapentin [Neurontin] 600 mg PO TID 05/27/20 Lemborexant [Dayvigo] 10 mg PO QHS 05/27/20 Losartan/Hydrochlorothiazide [Losartan-Hctz 100-25 mg Tab] 1 each PO DAILY 05/27/20 Ranolazine [Ranolazine ER] 500 mg PO BID 05/27/20 Dexamethasone 6 mg PO DAILY #3 tablet 06/09/20 History of Present Illiness History of Present Illness: VALENTE MUNOZ is a 64 year old female,I had a telemedicine encounter with the patient daughter because she has altered mental status, I advised the daughter to call 911 for her to be transported to the emergency room for evaluation. The emergency room she was found to have profound hyponatremia, serum sodium was 115, the creatinine was 3.81. She has a history of SIADH,Patient could not contribute to the history because she was extremely stuporous and confused. I saw patient on the floor, she has erythema and swelli ng of the right face that suggest erysipelas Hospital Course Hospital Course: Patient was admitted for the management of hyponatremia, acute kidney injury or metabolic encephalopathy. She has profound hyponatremia,She was managed with a low dose IV normal saline, ultimately she required ICU care. The hyponatremia was felt to be from SIADH.Patient's son in law coworker was positive for SARS-CoV-2, the son-in-law lives with the patient, because of this information patient was tested for SARS-CoV-2 and she was positive, she was isolated in the COVID unit, subsequent chest x-ray was done demonstrated right upper lobe pneumonia, but there was no hypoxemia, the oxygen saturation was normal, she was treated with IV dexamethasone, she did not require IV Remdesivir .She also have erysipelas on admission she was treated empirically with IV clindamycin the antibiotic was changed to meropenem for pneumonia Physical Exam Vital Signs: Temp Pulse Resp BP Pulse Ox 98.4 F 74 19 115/67 94 06/10/20 07:28 06/10/20 07:00 06/09/20 15:45 06/09/20 15:45 06/09/20 15:45 Intake & Output 06/09/20 06/10/20 06/11/20 06:59 06:59 06:59 Intake Total 150 1150 Output Total 2475 1325 Balance -2325 -175 Weight 93.6 kg 92.1 kg General appearance: PRESENT: no acute distress Eye exam: PRESENT: PERRLA Respiratory exam: PRESENT: clear to auscultation martínez Cardiovascular exam: PRESENT: +S1, +S2 GI/Abdominal exam: PRESENT: soft Neurological exam: PRESENT: alert, CN II-XII grossly intact Results Laboratory Results: WBC 7.5 10^3/uL (4.0-10.5) 06/06/20 06:55 RBC 3.92 10^6/uL (3.72-5.28) 06/06/20 06:55 Hgb 10.2 g/dL (12.0-15.5) L 06/06/20 06:55 Hct 29.2 % (36.0-47.0) L 06/06/20 06:55 MCV 74 fl (80-97) L 06/06/20 06:55 MCH 26.1 pg (27.0-33.4) L 06/06/20 06:55 MCHC 35.1 g/dL (32.0-36.0) 06/06/20 06:55 RDW 16.9 % (11.5-14.0) H 06/06/20 06:55 Plt Count 214 10^3/uL (150-450) 06/06/20 06:55 Lymph % (Auto) 6.1 % (13-45) L 06/06/20 06:55 [place] % (Auto) 5.3 % (3-13) 06/06/20 06:55 Eos % (Auto) 0.0 % (0-6) 06/06/20 06:55 Baso % (Auto) 0.1 % (0-2) 06/06/20 06:55 Absolute Neuts (auto) 6.6 10^3/uL (1.7-8.2) 06/06/20 06:55 Absolute Lymphs (auto) 0.5 10^3/uL (0.5-4.7) 06/06/20 06:55 Absolute Monos (auto) 0.4 10^3/uL (0.1-1.4) 06/06/20 06:55 Absolute Eos (auto) 0.0 10^3/uL (0.0-0.6) 06/06/20 06:55 Absolute Basos (auto) 0.0 10^3/uL (0.0-0.2) 06/06/20 06:55 Total Counted 100 05/30/20 06:55 Seg Neutrophils % 88.5 % (42-78) H 06/06/20 06:55 Seg Neuts % (Manual) 89 % (42-78) H 05/30/20 06:55 Band Neutrophils % 3 % (3-5) 05/30/20 06:55 Lymphocytes % (Manual) 5 % (13-45) L 05/30/20 06:55 Monocytes % (Manual) 3 % (3-13) 05/30/20 06:55 Eosinophils % (Manual) 0 % (0-6) 05/30/20 06:55 Basophils % (Manual) 0 % (0-2) 05/30/20 06:55 Abs Neuts (Manual) 10.6 10^3/uL (1.7-8.2) H 05/30/20 06:55 Abs Lymphs (Manual) 0.6 10^3/uL (0.5-4.7) 05/30/20 06:55 Abs Monocytes (Manual) 0.3 10^3/uL (0.1-1.4) 05/30/20 06:55 Absolute Eos (Manual) 0.0 10^3/uL (0.0-0.6) 05/30/20 06:55 Abs Basophils (Manual) 0.0 10^3/uL (0.0-0.2) 05/30/20 06:55 Toxic Granulation SLIGHT 05/29/20 05:07 Clumped Platelets PRESENT 05/30/20 06:55 Platelet Comment ADEQUATE 05/30/20 06:55 Hypochromasia SLIGHT 05/30/20 06:55 Anisocytosis 1+ 05/30/20 06:55 Microcytosis 1+ 05/30/20 06:55 Ovalocytes SLIGHT 05/30/20 06:55 PT 18.3 SEC (11.4-15.4) H 05/27/20 22:51 INR 1.50 05/27/20 22:51 APTT 49.2 SEC (23.5-35.8) H 05/27/20 22:51 Sodium 133.4 mmol/L (137-145) L 06/06/20 06:55 Potassium 4.2 mmol/L (3.6-5.0) 06/06/20 06:55 Chloride 104 mmol/L (98-107) 06/06/20 06:55 Carbon Dioxide 19 mmol/L (22-30) L 06/06/20 06:55 Anion Gap 10 (5-19) 09/27/20 06:55 BUN 13 mg/dL (7-20) 06/06/20 06:55 Creatinine 0.86 mg/dL (0.52-1.25) 06/06/20 06:55 Est GFR ( Amer) > 60 (>60) 06/06/20 06:55 Est GFR (Non-Af Amer) Cancelled 05/29/20 20:30 Est GFR (MDRD) Non-Af > 60 (>60) 06/06/20 06:55 Glucose 105 mg/dL (75-110) 06/06/20 06:55 POC Glucose 123 mg/dL (70-110) H 05/29/20 10:04 Hemoglobin A1c % 5.1 % (4.7-6.0) 05/28/20 05:24 Lactic Acid 0.7 mmol/L (0.7-2.1) 05/27/20 17:15 Calcium 7.1 mg/dL (8.4-10.2) L 06/06/20 06:55 Phosphorus 5.5 mg/dL (2.5-4.5) H 05/27/20 22:52 Magnesium 2.3 mg/dL (1.6-2.3) 05/27/20 22:52 Total Bilirubin 0.8 mg/dL (0.2-1.3) 06/06/20 06:55 Direct Bilirubin 0.4 mg/dL (0.0-0.4) 06/06/20 06:55 Neonat Total Bilirubin Not Reportable 06/06/20 06:55 Neonat Direct Bilirubin Not Reportable 06/06/20 06:55 Neonat Indirect Bili Not Reportable 06/06/20 06:55 AST 41 U/L (14-36) H 06/06/20 06:55 ALT 16 U/L (<35) 06/06/20 06:55 Alkaline Phosphatase 83 U/L (38-126) 06/06/20 06:55 Ammonia < 8.7 umol/L (9-33) L 05/28/20 00:33 Creatine Kinase 595 U/L (30-135) H 05/28/20 13:37 CK-MB (CK-2) 6.50 ng/mL (<4.55) H 05/28/20 10:45 Troponin I < 0.012 ng/mL 05/28/20 10:45 NT-Pro-B Natriuret Pep 168 pg/mL (<125) H 05/27/20 16:14 Total Protein 6.2 g/dL (6.3-8.2) L 06/06/20 06:55 Albumin 3.5 g/dL (3.5-5.0) 06/06/20 06:55 Triglycerides 152 mg/dL (<150) H 05/28/20 05:24 Cholesterol 161.22 mg/dL (0-200) 05/28/20 05:24 LDL Cholesterol Direct 76 mg/dL (<100) 05/28/20 05:24 VLDL Cholesterol 30.4 mg/dL (10-31) 05/28/20 05:24 HDL Cholesterol 59 mg/dL (>40) 05/28/20 05:24 Amylase 49 U/L (30-110) 05/27/20 22:52 Lipase 59.3 U/L (23-300) 05/27/20 22:52 EGFR Cancelled 05/29/20 20:30 TSH 0.51 uIU/mL (0.47-4.68) 05/27/20 16:14 Free T4 1.40 ng/dL (0.78-2.19) 05/27/20 16:14 Urine Color YELLOW 05/27/20 14:10 Urine Appearance CLEAR 05/27/20 14:10 Urine pH 5.0 (5.0-9.0) 05/27/20 14:10 Ur Specific [place] 1.011 05/27/20 14:10 Urine Protein NEGATIVE mg/dL (NEGATIVE) 05/27/20 14:10 Urine Glucose (UA) NEGATIVE mg/dL (NEGATIVE) 05/27/20 14:10 Urine Ketones NEGATIVE mg/dL (NEGATIVE) 05/27/20 14:10 Urine Blood LARGE (NEGATIVE) H 05/27/20 14:10 Urine Nitrite NEGATIVE (NEGATIVE) 05/27/20 14:10 Urine Bilirubin NEGATIVE (NEGATIVE) 05/27/20 14:10 Urine Urobilinogen NEGATIVE mg/dL (<2.0) 05/27/20 14:10 Ur Leukocyte Esterase NEGATIVE (NEGATIVE) 05/27/20 14:10 Urine WBC (Auto) 3 /HPF 05/27/20 14:10 Urine RBC (Auto) 31 /HPF 05/27/20 14:10 U Hyaline Cast (Auto) 1 /LPF 05/27/20 14:10 Urine Bacteria (Auto) TRACE /HPF 05/27/20 14:10 Squamous Epi Cells Auto 1 /HPF 05/27/20 14:10 Urine Mucus (Auto) RARE /LPF 05/27/20 14:10 Urine Ascorbic Acid NEGATIVE (NEGATIVE) 05/27/20 14:10 Stl C. Difficile GDH Ag NEGATIVE (NEGATIVE) 05/31/20 15:12 Stl C.difficile Tox A&B NEGATIVE (NEGATIVE) 05/31/20 15:12 Urine Opiates Screen NEGATIVE 05/27/20 14:10 Urine Methadone Screen NEGATIVE 05/27/20 14:10 Ur Barbiturates Screen NEGATIVE 05/27/20 14:10 Ur Phencyclidine Scrn NEGATIVE 05/27/20 14:10 Ur Amphetamines Screen NEGATIVE 05/27/20 14:10 U Benzodiazepines Scrn NEGATIVE 05/27/20 14:10 Urine Cocaine Screen NEGATIVE 05/27/20 14:10 U Marijuana (THC) Screen NEGATIVE 05/27/20 14:10 SARS-CoV-2 (PCR) POSITIVE (NEGATIVE) H 06/02/20 16:04 05/27/20 05/27/20 05/27/20 16:14 16:14 22:52 CK-MB (CK-2) 7.03 H Troponin I < 0.012 < 0.012 NT-Pro-B Natriuret Pep 168 H 05/28/20 05/28/20 05:24 10:45 CK-MB (CK-2) 6.58 H 6.50 H Troponin I < 0.012 < 0.012 NT-Pro-B Natriuret Pep Impressions: Chest X-Ray 05/27/20 13:04 IMPRESSION: NO ACUTE RADIOGRAPHIC FINDING IN THE CHEST. Head CT 05/28/20 00:00 IMPRESSION: No acute intracranial abnormality. EVIDENCE OF ACUTE STROKE: NO. Renal Ultrasound 05/28/20 00:00 IMPRESSION: Cortical thinning bilaterally. No other significant finding. KUB X-Ray 05/29/20 10:09 IMPRESSION: Nasogastric tube tip in the antrum of the stomach. Chest X-Ray 06/02/20 00:00 IMPRESSION: 1. Right upper lobe infiltrate, new since 05/27/2020, consistent with pneumonia Chest X-Ray 06/05/20 00:00 IMPRESSION: NO ACUTE FINDINGS. Stroke Is this a Stroke Patient?: No Acute Heart Failure Is this a Heart Failure Patient?: No
[2020-06-10 09:10] VITALS: BP 112/68
== END 2020-06-10 10:20 | disposition home or self-care (01) | DRG 177 ==
LOC: ER 11:46 → EH 18:37 → 5 21:50 → ICU 05-29 13:00 → 3S 05-31 22:00 → 3N 06-02 19:16
PROVIDERS: ADMIT Anesthesiology; ATTEND Internal Medicine
DX: U07.1 COVID-19 (principal); J12.89 Other viral pneumonia; G93.41 Metabolic encephalopathy; E87.1 Hypo-osmolality and hyponatremia; N17.9 Acute kidney failure, unspecified; A46 Erysipelas; D50.9 Iron deficiency anemia, unspecified; E87.6 Hypokalemia; I25.10 Atherosclerotic heart disease of native coronary artery without angina pectoris; G89.4 Chronic pain syndrome; I11.0 Hypertensive heart disease with heart failure; I50.9 Heart failure, unspecified; Z86.718 Personal history of other venous thrombosis and embolism; Z86.711 Personal history of pulmonary embolism; J44.9 Chronic obstructive pulmonary disease, unspecified; Z85.43 Personal history of malignant neoplasm of ovary; Z85.41 Personal history of malignant neoplasm of cervix uteri; M32.9 Systemic lupus erythematosus, unspecified; Z88.8 Allergy status to other drugs, medicaments and biological substances; Z90.49 Acquired absence of other specified parts of digestive tract; Z96.653 Presence of artificial knee joint, bilateral; Z88.0 Allergy status to penicillin; Z96.649 Presence of unspecified artificial hip joint; M79.7 Fibromyalgia; Z95.5 Presence of coronary angioplasty implant and graft; Z79.01 Long term (current) use of anticoagulants; Z79.899 Other long term (current) drug therapy
CPT/HCPCS: 36415; 51701; 70450; 71045; 74018; 76770; 80048; 80053; 80061; 80076; 80307; 81001; 82140; 82150; 82550; 82553; 82962; 83036; 83605; 83690; 83735; 83880; 84100; 84439; 84443; 84484; 85025; 85610; 85730; 87040; 87070; 87077; 87086; 87150; 87324; 87449; 87635; 93005; 93010; 96360; 96361; 99221; 99291; C9113; C9803; J1100; J1170; J1200; J2185; J3480; J3490; J7030; J7120

== ENCOUNTER 2020-06-16 19:01 | Inpatient (IN) | payer MEDICARE ==
[2020-06-16] MEDS ORDERED: NALOXONE HCL INJ 2 MG/2 ML DISP.SYRIN IV ONE (19:19)
[2020-06-16] MEDS: NORMAL SALINE 1000 ML 1,000 ML IV PRN ×2 (19:29→23:18)
--- NOTE | 2020-06-16 20:24 | RADIOLOGY REPORT (SQ) ---
EXAM DESCRIPTION: XR CHEST 1 VIEW COMPLETED DATE/TME: 06/16/2020 19:16 CLINICAL HISTORY: 64 years, Female, htn COMPARISON: Prior study from 06/05/2020 NUMBER OF VIEWS: Single view is obtained TECHNIQUE: Single frontal radiograph of the chest was obtained portably LIMITATIONS: None. FINDINGS: Right subclavian approach dual lumen catheter tip projects over the SVC. Cardiac and mediastinal contours are stable. Spinal stimulator device is noted. Confluent right mid to upper lung zone airspace disease is noted. Lung volumes are overall low. Otherwise, no pneumothorax or pleural effusion. Left-sided PICC tip appears to be located within the left subclavian vein. IMPRESSION: Patchy right mid to upper lung zone airspace disease. Consider atelectasis or pneumonia to include aspiration. Recommend follow-up to clearing. copyright 2010 [employer]- All Rights Reserved
[2020-06-16 20:31] LABS: ABSOLUTE BASOPHILS # (AUTO) 0.1 10^3/uL (0.0-0.2); ABSOLUTE EOSINOPHILS # (AUTO) 0.1 10^3/uL (0.0-0.6); ABSOLUTE LYMPHOCYTES (AUTO) 1.8 10^3/uL (0.5-4.7); ABSOLUTE NEUT (AUTO) 8.6 10^3/uL (1.7-8.2); BASOPHILS % (AUTO) 0.6 % (0-2); EOSINOPHILS % (AUTO) 0.5 % (0-6); HEMATOCRIT 33.6 % (36.0-47.0); HEMOGLOBIN 11.2 g/dL (12.0-15.5); LYMPHOCYTES % (AUTO) 15.7 % (13-45); MEAN CORPUSCULAR HEMOGLOBIN 24.8 pg (27.0-33.4); MEAN CORPUSCULAR HGB CONC 33.2 g/dL (32.0-36.0); MEAN CORPUSCULAR VOLUME 75 fl (80-97); MONOCYTES % (AUTO) 8.4 % (3-13); PLATELET COUNT 379 10^3/uL (150-450); SEGMENTED NEUTROPHILS % (AUTO) 74.8 % (42-78); TOTAL CELLS COUNTED % (AUTO) 100 %; WHITE BLOOD COUNT 11.5 10^3/uL (4.0-10.5)
[2020-06-16] MEDS ORDERED: CEFEPIME 1 GM/D5W RTU 1 GM/50 ML RTUPB IV ONE (20:44)
[2020-06-16 20:50] LABS: ALBUMIN 3.5 g/dL (3.5-5.0); ALKALINE PHOSPHATASE 116 U/L (38-126); ANION GAP 12 (5-19); ASPARTATE AMINO TRANSFERASE 17 U/L (14-36); BILIRUBIN,DIRECT 0.5 mg/dL (0.0-0.4); BILIRUBIN,TOTAL 0.9 mg/dL (0.2-1.3); BLOOD UREA NITROGEN 29 mg/dL (7-20); CALCIUM 8.4 mg/dL (8.4-10.2); CARBON DIOXIDE 19 mmol/L (22-30); CHLORIDE 102 mmol/L (98-107); GLUCOSE 113 mg/dL (75-110); POTASSIUM 4.1 mmol/L (3.6-5.0); TOTAL PROTEIN 6.1 g/dL (6.3-8.2)
--- NOTE | 2020-06-16 22:32 | ER Document Report ---
Entered by ANGEL SAAVEDRA SCRIBE 06/16/201931 Acting as scribe for:ELIZA OTTO DO ED General - General Chief Complaint: Weakness Stated Complaint: WEAKNESS Time Seen by Provider: 06/16/20 19:14 Primary Care Provider: IAN MUÑOZ MD [Primary Care Provider] - Follow up as needed Information source: Patient Notes: This 64 year old female patient presents to the emergency department today with arrival via EMS from home for weakness and trouble ambulating. EMS reports patient was hypotensive on their arrival with low blood pressure. Patient states her PCP is Dr. Muñoz. Patient states she was diagnosed with covid last month and hospitalized for weeks with renal failure and hyponatremia. Patient is slow to respond to questions and a poor historian, unable to obtain a ROS. TRAVEL OUTSIDE OF THE [place] IN LAST 30 DAYS: No - Related Data Allergies/Adverse Reactions: irbesartan [From Avapro] Allergy (Severe, Verified 04/19/19 01:21) swelling of face nitrofurantoin macrocrystalline [From Macrobid] Allergy (Severe, Verified 04/19/19 01:21) Generalized edema Penicillins Allergy (Severe, Verified 04/19/19 01:21) eyes swelled pregabalin [From Lyrica] Allergy (Severe, Verified 04/19/19 01:21) Equilibrium Issues venom-honey bee [bee venom (honey bee)] Allergy (Verified 04/19/19 01:21) Anaphylaxis Past Medical History - General Information source: Patient - Social History Smoking Status: Never Smoker Cigarette use (# per day): No Family History: Arthritis, COPD, Hyperlipidemia, Hypertension, Malignancy, Thyroid Disfunction - Past Medical History Cardiac Medical History: Reports: Hx Congestive Heart Failure, Hx Coronary Artery Disease, Hx DVT, Hx Heart Attack, Hx Hypercholesterolemia, Hx Hypertension, Hx Pulmonary Embolism Pulmonary Medical History: Reports: Hx Bronchitis, Hx COPD Endocrine Medical History: Reports: Hx Hypothyroidism Renal/ Medical History: Reports: Hx Ovarian Cysts Malignancy Medical History: Reports: Hx Cervical Cancer, Hx Ovarian Cancer GI Medical History: Reports: Hx Gastroesophageal Reflux Disease, Hx Hiatal Hernia - Repaired, Hx Irritable Bowel, Hx Colonoscopy, Hx Endoscopy Musculoskeletal Medical History: Reports Hx Arthritis, Reports Hx Fibromyalgia - Lupus, Reports Hx Musculoskeletal Deformity, Reports Hx Musculoskeletal Trauma, Reports Hx Systemic Lupus Erythematosus Skin Medical History: Reports Hx Cellulitis - Recently treated, right breast Psychiatric Medical History: Reports: Hx Anxiety, Hx Depression Traumatic Medical History: Reports: Hx Fractures - Knee and hip Infectious Medical History: Reports: Hx C-Diff - Was negative in October2015. Not yet successfully collected stool, Hx MRSA, Hx VRE Past Surgical History: Reports: Hx Appendectomy, Hx Bowel Surgery - Polyps, adhesions, Hx Cardiac Catheterization, Hx Cardiac Surgery - 2 stents 2014, Hx Section, Hx Cholecystectomy, Hx Coronary Stent - x3, Hx Genitourinary Surgery - bladder sling, Hx Herniorrhaphy, Hx Hysterectomy, Hx Orthopedic Surgery - Bilateral knee replacements, hip replacement, Hx Tonsillectomy - Immunizations Immunizations up to date: Yes Hx Diphtheria, Pertussis, Tetanus Vaccination: No Hx Pneumococcal Vaccination: 05/20/11 Review of Systems - Review of Systems -: Yes ROS unobtainable due to patient's medical condition Neurological/Psychological: Weakness Physical Exam - Vital signs Vitals: BP 51/41 L 06/16/20 19:12 - General Notes: Awake. Appears chronically ill and older than stated age. - HEENT Head: Normocephalic, Atraumatic Eyes: Normal Pupils: PERRL Mucous membranes: Dry Neck: Supple. No: Lymphadenopathy - Respiratory Respiratory status: No respiratory distress Breath sounds: Normal Chest palpation: Normal Notes: Ecchymosis to the anterior chest. 2 ports in the left chest and 1 in the right. - Cardiovascular Rhythm: Regular Heart sounds: Normal auscultation Murmur: No - Abdominal Inspection: Obese, Other - Soft Distension: No distension Bowel sounds: Normal Tenderness: Nontender - Extremities Notes: Trace peripheral edema of the bilateral lower extremities. Port present in the left upper extremity. - Neurological Neuro grossly intact: Yes [place] Coma Scale Eye Opening: Spontaneous [place] Coma Scale Verbal: Oriented [place] Coma Scale Motor: Obeys Commands Paul[place] Coma Scale Total: 15 - Psychological Associated symptoms: Normal affect, Normal mood - Skin Skin Temperature: Warm Skin Moisture: Dry Notes: Ecchymosis all over the body in different stages of healing. Course - Re-evaluation Re-evalutation: 06/16/20 22:44 MDM Unfortunate 64 year old female that is brought by EMS after call for u nconscious person. She was not unconsciousness but was slow to respond. Her fentanyl patch was removed and she was transported here. Workup here shows NGOC and Right sided airspace disease along wiht likely sepsis. Recent hospitalization, so treated as HAP and maxipine ordered. NS bolus given and sbp approx 115. I have discussed the pt with Dr. Renteria and he will graciously admit to IMCU for IVF, antibiotics and further treatment. Discussed femoral line wiht the pt and she refused. - Vital Signs Vital signs: Temp Pulse Resp BP Pulse Ox 13 113/54 L 56 L 06/16/20 21:21 06/16/20 21:21 06/16/20 21:15 - Laboratory Result Diagrams: 06/16/20 20:13 06/16/20 20:13 Laboratory results interpreted by me: 06/16/20 06/16/20 06/16/20 20:13 20:13 20:13 WBC 11.5 H Hgb 11.2 L Hct 33.6 L MCV 75 L MCH 24.8 L RDW 17.0 H Absolute Neuts (auto) 8.6 H Sodium 133.3 L Carbon Dioxide 19 L BUN 29 H Creatinine 2.22 H Est GFR ( Amer) 27 L Est GFR (MDRD) Non-Af 22 L Glucose 113 H Lactic Acid 2.8 H Direct Bilirubin 0.5 H C-Reactive Protein 15.0 H Total Protein 6.1 L - Diagnostic Test Radiology reviewed: Image reviewed, Reports reviewed - EKG Interpretation by Me EKG shows normal: Sinus rhythm Rate: Normal Rhythm: NSR - NSR NL [place] [address] elevation or depression repolarization abnormality my interpretation. Critical Care Note - Critical Care Note Total time excluding time spent on procedures (mins): 30 Discharge - Discharge Clinical Impression: Acute kidney injury, Hospital-acquired pneumonia, Acute renal insufficiency Sepsis Qualifiers: Sepsis type: sepsis due to unspecified organism Sepsis acute organ dysfunction status: unspecified Qualified Code(s): A41.9 - Sepsis, unspecified organism Condition: Serious Disposition: ADMITTED INPATIENT Admitting Provider: [facility] Unit Admitted: IMCU Referrals: IAN MUÑOZ MD [Primary Care Provider] - Follow up as needed I personally performed the services described in the documentation, reviewed and edited the documentation which was dictated to the scribe in my presence, and it accurately records my words and actions.
[2020-06-16] MEDS ORDERED: MEROPENEM 1 GM VIAL IV PRN (23:27)
[2020-06-17] MEDS ORDERED: NORMAL SALINE 1000 ML 1,000 ML IV ONE (00:03)
[2020-06-17] MEDS: HEPARIN SOD (PORCINE) 5,000 UNIT/ML 1 ML VIAL SUBCUT SCH ×4 (02:28→22:23)
[2020-06-17] MEDS ORDERED: MEROPENEM 1 GM VIAL ONE (05:57)
[2020-06-17] MEDS: MEROPENEM 1 GM in NORMAL SALINE 50 ML IV SCH ×3 (06:26→22:22)
--- NOTE | 2020-06-17 08:58 | EKG REPORT ---
SEVERITY:- ABNORMAL ECG - SINUS RHYTHM RUN OF VENTRICULAR PREMATURE COMPLEXES BORDERLINE T ABNORMALITIES, DIFFUSE LEADS : Confirmed by: Patti Naylor MD 17-Jun-2020 08:57:56
[2020-06-17] MEDS ORDERED: LIDOCAINE 2% INJ-PF (100 MG/5 ML) SYRINGE ONE (14:04)
[2020-06-17] MEDS ORDERED: LIDOCAINE 1% INJ-PF (10 MG/ML) 30 ML SDV INJ PRN (14:12)
[2020-06-17] MEDS: RINGERS SOLUTION,LACTATED 1,000 ML IV PRN (15:23)
--- NOTE | 2020-06-17 16:07 | PDOC CONSULTATION ---
Consultation Consult Date: 06/17/20 Provider Consulted: CATRINA WOODS Consult reason:: Need of IV access History of Present Illness Admission Date/PCP: 06/16/20 23:14 IAN MUÑOZ MD History of Present Illness: VALENTE MUNOZ is a 64 year old female, obese, with multiple medical proble ms, admitted for weakness hypotension dizziness, in need of IV access for administration of fluids and medications. The patient reports to be a difficult IV access in the past. A few months ago, an attempt was made to place a femoral vein central line and this was unsuccessful. In addition, she reports very difficult if not impossible placement of a central venous line in the upper extremities or neck. Past Medical History Cardiac Medical History: Reports: Congestive Heart Failure, Coronary Artery Disease, DVT, Myocardial Infarction, Hyperlipidema, Hypertension, Pulmonary Embolism Denies: Atrial Fibrillation, Peripheral Vascular Disease, Heart Murmur Pulmonary Medical History: Reports: Bronchitis, Chronic Obstructive Pulmonary Disease (COPD) Denies: Asthma, Pneumonia, Respiratory Failure, Sleep Apnea, Tuberculosis Neurological Medical History: Denies: Seizures Endocrine Medical History: Reports: Hypothyroidism Denies: Hyperthyroidism Renal/ Medical History: Denies: End Stage Renal Disease Malignancy Medical History: Reports: Cervical Cancer, Ovarian Cancer Denies: Breast Cancer, Leukemia, Lung Cancer GI Medical History: Reports: Gastroesophageal Reflux Disease, Hiatal Hernia - Repaired Denies: Cirrhosis, Crohn's Disease, Hepatitis Musculoskeltal Medical History: Reports: Arthritis, Fibromyalgia - Lupus Psychiatric Medical History: Reports: Depression Denies: Bipolar Disorder, Dementia, Post Traumatic Stress Disorder Hematology: Reports: Anemia Denies: Hemophilia, Sickle Cell Disease, Bleeding Tendencies Infectious Medical History: Reports: Clostridium Difficile - Was negative in October2015. Not yet successfully collected stool, Methicillin-Resistant Staph Aureus, Vancomycin-Resistant Enterococci Denies: HIV Past Surgical History Past Surgical History: Reports: Appendectomy, Cardiac Catheterization, Section, Cholecystectomy, Coronary Stent - x3, Herniorrhaphy, Hysterectomy, Orthopedic Surgery - Bilateral knee replacements, hip replacement, Tonsillectomy Denies: Amputation, Colostomy, Coronary Artery Bypass Graft, Gastric Bypass Surgery, Mastectomy, Pacemaker, Tubal Ligation Social History Smoking Status: Former Smoker Electronic Cigarette use?: No Number of Years Smokin Last Time Smoked: 10 years ago Frequency of Alcohol Use: Occasional Hx Recreational Drug Use: No Drugs: None Hx Prescription Drug Abuse: No Family History Family History: Arthritis, COPD, Hyperlipidemia, Hypertension, Malignancy, Thyroid Disfunction Parental Family History Reviewed: Yes Children Family History Reviewed: No Sibling(s) Family History Reviewed.: No Medication/Allergy Home Medications: Fentanyl [Duragesic 25 mcg/hr Transdermal Patch] 1 each TD Q3D 05/27/20 Lemborexant [Dayvigo] 10 mg PO QHS 05/27/20 Dexamethasone 6 mg PO DAILY #3 tablet 06/09/20 Allergies/Adverse Reactions: irbesartan [From Avapro] Allergy (Severe, Verified 04/19/19 01:21) swelling of face nitrofurantoin macrocrystalline [From Macrobid] Allergy (Severe, Verified 04/19/19 01:21) Generalized edema Penicillins Allergy (Severe, Verified 04/19/19 01:21) eyes swelled pregabalin [From Lyrica] Allergy (Severe, Verified 04/19/19 01:21) Equilibrium Issues venom-honey bee [bee venom (honey bee)] Allergy (Verified 04/19/19 01:21) Anaphylaxis Physical Exam Vital Signs: Temp Pulse Resp BP Pulse Ox 98.0 F 81 19 83/51 L 94 06/17/20 10:44 06/17/20 10:44 06/17/20 10:44 06/17/20 10:44 06/17/20 10:44 Intake & Output 06/16/20 06/17/20 06/18/20 06:59 06:59 06:59 Intake Total 1883 50 Balance 1883 50 Weight 89.4 kg General appearance: PRESENT: mild distress, obese Eye exam: PRESENT: EOMI Mouth exam: PRESENT: dry mucosa, neck supple Teeth exam: PRESENT: poor dentation Neck exam: PRESENT: full ROM Respiratory exam: PRESENT: clear to auscultation martínez Cardiovascular exam: PRESENT: RRR GI/Abdominal exam: PRESENT: soft, other - Obese Rectal exam: PRESENT: deferred Extremities exam: PRESENT: full ROM Musculoskeletal exam: PRESENT: full ROM Neurological exam: PRESENT: alert, awake, CN II-XII grossly intact Psychiatric exam: PRESENT: appropriate affect Skin exam: PRESENT: other - Multiple cutaneous ecchymosis in the upper extremities and axilla Results Laboratory Results: 06/16/20 20:13 06/16/20 20:13 06/16/20 06/16/20 06/16/20 20:13 20:13 20:13 WBC 11.5 H RBC 4.50 Hgb 11.2 L Hct 33.6 L MCV 75 L MCH 24.8 L MCHC 33.2 RDW 17.0 H Plt Count 379 Seg Neutrophils % 74.8 Sodium 133.3 L Potassium 4.1 Chloride 102 Carbon Dioxide 19 L Anion Gap 12 BUN 29 H Creatinine 2.22 H Est GFR ( Amer) 27 L Glucose 113 H Lactic Acid 2.8 H Calcium 8.4 Magnesium 1.7 Total Bilirubin 0.9 AST 17 Alkaline Phosphatase 116 C-Reactive Protein 15.0 H Total Protein 6.1 L Albumin 3.5 06/16/20 06/16/20 06/16/20 20:13 20:13 20:13 Creatine Kinase 22 L CK-MB (CK-2) 1.11 Troponin I < 0.012 Cancelled Impressions: Chest X-Ray 06/16/20 19:16 IMPRESSION: Patchy right mid to upper lung zone airspace disease. Consider atelectasis or pneumonia to include aspiration. Recommend follow-up to clearing. copyright 2010 [facility] [employer]- All Rights Reserved Assessment & Plan - Plan Summary Plan Summary: Assessment: Multiple medical problems Current admission for weakness Need of IV access for administration of medication drugs Patient is a history of difficult IV access Plan: Placement of femoral vein central line under ultrasound today Procedure, risks, benefits, complications, explained to the patient, she understands all the above, she desires to proceed
--- NOTE | 2020-06-17 16:13 | Operative Report ---
Operative Report DATE OF SURGERY: 06/17/20 PREOPERATIVE DIAGNOSIS: Need of IV access; history of difficult central venous line access POSTOPERATIVE DIAGNOSIS: Same, occluded bilateral femoral veins OPERATION: Attempted placement of right and left femoral vein and central line; right or left groin ultrasound SURGEON: CATRINA WOODS ANESTHESIA: Local - 20 mL's 1% lidocaine without epinephrine TISSUE REMOVED OR ALTERED: Negative COMPLICATIONS: None ESTIMATED BLOOD LOSS: None INTRAOPERATIVE FINDINGS: No identification or right or left femoral vein by blind will stick or ultrasound PROCEDURE: The procedure was done at bedside. The patient was placed in a supine position, the left groin was prepped and draped in usual fashion, the left femoral 3 could not be palpated, blind stick with a 16-gauge needle was unsuccessful in identifying the femoral vein; venous ultrasound probe was used and the left femoral vein could not be identified. At this point, the right groin was prepped and draped in the usual fashion, right femoral artery could not be palpated; a venous ultrasound probe was used but identification of the left femoral vein was accessed as well; at this point, the procedure was aborted. The patient tolerated the procedure well. This was communicated to Dr. Hilliard
[2020-06-17] MEDS ORDERED: FENTANYL 25 MCG/HR PATCH.TD72 TD SCH (17:30)
[2020-06-17 18:46] LABS: APPEARANCE,URINE CLEAR; BILIRUBIN,URINE NEGATIVE (NEGATIVE); COLOR,URINE YELLOW; GLUCOSE, URINE NEGATIVE (NEGATIVE); KETONES,URINE NEGATIVE (NEGATIVE); LEUKOCYTE ESTERASE,URINE NEGATIVE (NEGATIVE); NITRITE,URINE NEGATIVE (NEGATIVE); PROTEIN,URINE 30 mg/dL (NEGATIVE); URINE SPECIFIC GRAVITY 1.015; UROBILINOGEN,URINE NEGATIVE mg/dL (<2.0)
--- NOTE | 2020-06-17 21:40 | PDOC H&P ---
History of Present Illness Admission Date/PCP: 06/16/20 23:14 IAN MUÑOZ MD History of Present Illness: VALENTE MUNOZ is a 64 year old female, She has a history of systemic lupus erythematosus, coronary artery disease pulmonary embolism, hypothyroidism, she was recently admitted in this hospital for the management of severe hyponatremic encephalopath pneumonia, positive SARS-CoV-2 infection without hypoxemia, at the last admission she was treated with meropenem, intravenous dexamethasone, she was not treated with remdesivir because she does not have hypoxemia and does not meet the criteria for initiation of remdesivir, she was transferred from home to the emergency room by the ambulance for evaluation of unresponsiveness but when she arrived in the ER she was responsive but slow to answer questions, The emergency room a chest x-ray was done, it demonstrated pneumonia in the left lung, She was also hypoxemic, the oxygen saturation was in the low 90s, she will need to be retested for SARS-CoV-2 infection.The medication that was reconciled by the pharmacist did not include her regular home meds Only 3 medication was reconciled. I am not sure of this patient ability to take care of herself at home, I believe she is becoming difficult for the daughter to take care of her. IV access is very challenging in this patient, the only IV access is in the foot which is not the best practice especially in the hospital setting, the surgeon could not access any IV access despite the use of ultrasound guidance Past Medical History Cardiac Medical History: Reports: Congestive Heart Failure, Coronary Artery Disease, DVT, Myocardial Infarction, Hyperlipidema, Hypertension, Pulmonary Embolism Pulmonary Medical History: Reports: Bronchitis, Chronic Obstructive Pulmonary Disease (COPD) Neurological Medical History: Denies: Seizures Endocrine Medical History: Reports: Hypothyroidism Malignancy Medical History: Reports: Cervical Cancer, Ovarian Cancer GI Medical History: Reports: Gastroesophageal Reflux Disease, Hiatal Hernia - Repaired Musculoskeltal Medical History: Reports: Arthritis, Fibromyalgia - Lupus Psychiatric Medical History: Reports: Depression Hematology: Reports: Anemia Infectious Medical History: Reports: Clostridium Difficile - Was negative in October2015. Not yet successfully collected stool, Methicillin-Resistant Staph Aureus, Vancomycin-Resistant Enterococci Past Surgical History Past Surgical History: Reports: Appendectomy, Cardiac Catheterization, Section, Cholecystectomy, Coronary Stent - x3, Herniorrhaphy, Hysterectomy, Orthopedic Surgery - Bilateral knee replacements, hip replacement, Tonsillectomy Social History Smoking Status: Former Smoker Electronic Cigarette use?: No Number of Years Smokin Last Time Smoked: 10 years ago Frequency of Alcohol Use: Occasional Hx Recreational Drug Use: No Drugs: None Hx Prescription Drug Abuse: No Family History Family History: Arthritis, COPD, Hyperlipidemia, Hypertension, Malignancy, Thyroid Disfunction Parental Family History Reviewed: Yes Children Family History Reviewed: Yes Sibling(s) Family History Reviewed.: Yes Medication/Allergy Home Medications: Fentanyl [Duragesic 25 mcg/hr Transdermal Patch] 1 each TD Q3D 05/27/20 Lemborexant [Dayvigo] 10 mg PO QHS 05/27/20 Dexamethasone 6 mg PO DAILY #3 tablet 06/09/20 Allergies/Adverse Reactions: irbesartan [From Avapro] Allergy (Severe, Verified 04/19/19 01:21) swelling of face nitrofurantoin macrocrystalline [From Macrobid] Allergy (Severe, Verified 04/19/19 01:21) Generalized edema Penicillins Allergy (Severe, Verified 04/19/19 01:21) eyes swelled pregabalin [From Lyrica] Allergy (Severe, Verified 04/19/19 01:21) Equilibrium Issues venom-honey bee [bee venom (honey bee)] Allergy (Verified 04/19/19 01:21) Anaphylaxis Review of Systems Constitutional: PRESENT: anorexia Eyes: ABSENT: visual disturbances Ears: ABSENT: hearing changes Cardiovascular: ABSENT: chest pain, dyspnea on exertion, edema, orthropnea, palpitations Respiratory: ABSENT: cough, hemoptysis Gastrointestinal: ABSENT: abdominal pain, constipation, diarrhea, hematemesis, hematochezia, nausea, vomiting Genitourinary: ABSENT: dysuria, hematuria Musculoskeletal: PRESENT: back pain Integumentary: ABSENT: rash, wounds Neurological: PRESENT: confusion, memory loss, numbness, paresthesias Psychiatric: ABSENT: anxiety, depression, homidical ideation, suicidal ideation Endocrine: ABSENT: cold intolerance, heat intolerance, menstrual abnormalities, polydipsia, polyuria Hematologic/Lymphatic: ABSENT: easy bleeding, easy bruising, lymphadenopathy Physical Exam Vital Signs: Temp Pulse Resp BP Pulse Ox 98.1 F 89 19 95/53 L 100 06/17/20 15:33 06/17/20 15:33 06/17/20 15:33 06/17/20 15:33 06/17/20 15:33 Intake & Output 06/16/20 06/17/20 06/18/20 06:59 06:59 06:59 Intake Total 1883 50 Output Total 1500 Balance 1883 -1450 Weight 89.4 kg General appearance: PRESENT: no acute distress Head exam: PRESENT: atraumatic, normocephalic Eye exam: PRESENT: PERRLA Mouth exam: PRESENT: moist, tongue midline Neck exam: PRESENT: full ROM Respiratory exam: PRESENT: rhonchi Cardiovascular exam: PRESENT: RRR, +S1, +S2 Vascular exam: PRESENT: normal capillary refill GI/Abdominal exam: PRESENT: normal bowel sounds, soft Rectal exam: PRESENT: deferred Neurological exam: PRESENT: alert Psychiatric exam: PRESENT: appropriate affect, normal mood Skin exam: PRESENT: dry, intact, warm. ABSENT: cyanosis, rash Results Laboratory Results: 06/16/20 20:13 06/16/20 20:13 06/17/20 18:00 Urine Color YELLOW Urine Appearance CLEAR Urine pH 6.0 Ur Specific [place] 1.015 Urine Protein 30 H Urine Glucose (UA) NEGATIVE Urine Ketones NEGATIVE Urine Blood NEGATIVE Urine Nitrite NEGATIVE Ur Leukocyte Esterase NEGATIVE Urine WBC (Auto) 3 Urine RBC (Auto) 0 06/16/20 06/16/20 06/16/20 20:13 20:13 20:13 Creatine Kinase 22 L CK-MB (CK-2) 1.11 Troponin I < 0.012 Cancelled Impressions: Chest X-Ray 06/16/20 19:16 IMPRESSION: Patchy right mid to upper lung zone airspace disease. Consider atelectasis or pneumonia to include aspiration. Recommend follow-up to clearing. copyright 2010 [facility] [employer]- All Rights Reserved Assessment & Plan - Diagnosis (1) Pneumonia Qualifiers: Pneumonia type: due to unspecified organism Laterality: left Lung location: unspecified part of lung Qualified Code(s): J18.9 - Pneumonia, unspecified organism Is this a current diagnosis for this admission?: Yes Plan: Patient probably have aspiration pneumonia, she will be treated with meropenem, it is reasonable to assume that she may have SARS-CoV-2 pneumonia but will have to confirm this infection before she could receive remdesivir (2) Acute hypoxemic respiratory failure Is this a current diagnosis for this admission?: Yes Plan: Continue supplemental oxygen with nasal cannula (3) Acute kidney injury Is this a current diagnosis for this admission?: Yes Plan: This is probably prerenal acute kidney injury - Time Time Spent: Greater than 70 Minutes Medications reviewed and adjusted accordingly: Yes Anticipated Discharge Disposition: Home, Self Care Anticipated Discharge Timeframe: 7 days
--- NOTE | 2020-06-17 21:48 | PDOC PROGRESS REPORT ---
Subjective Progress Note for:: 06/17/20 Subjective:: Patient seen by the bedside, IV access is challenging in this patient Reason For Visit: ASPIRATION PNEUMONIA, LACTIC ACIDOSIS, SEPSIS, Physical Exam Vital Signs: Temp Pulse Resp BP Pulse Ox 98.1 F 89 19 95/53 L 100 06/17/20 15:33 06/17/20 15:33 06/17/20 15:33 06/17/20 15:33 06/17/20 15:33 Intake & Output 06/16/20 06/17/20 06/18/20 06:59 06:59 06:59 Intake Total 1883 50 Output Total 1500 Balance 1883 -1450 Weight 89.4 kg General appearance: PRESENT: no acute distress Eye exam: PRESENT: PERRLA Respiratory exam: PRESENT: clear to auscultation martínez Cardiovascular exam: PRESENT: +S1, +S2 GI/Abdominal exam: PRESENT: soft Neurological exam: PRESENT: alert Results Laboratory Results: 06/16/20 20:13 06/16/20 20:13 06/17/20 18:00 Urine Color YELLOW Urine Appearance CLEAR Urine pH 6.0 Ur Specific [place] 1.015 Urine Protein 30 H Urine Glucose (UA) NEGATIVE Urine Ketones NEGATIVE Urine Blood NEGATIVE Urine Nitrite NEGATIVE Ur Leukocyte Esterase NEGATIVE Urine WBC (Auto) 3 Urine RBC (Auto) 0 06/16/20 06/16/20 06/16/20 20:13 20:13 20:13 Creatine Kinase 22 L CK-MB (CK-2) 1.11 Troponin I < 0.012 Cancelled Impressions: Chest X-Ray 06/16/20 19:16 IMPRESSION: Patchy right mid to upper lung zone airspace disease. Consider atelectasis or pneumonia to include aspiration. Recommend follow-up to clearing. copyright 2010 [employer]- All Rights Reserved Assessment & Plan - Diagnosis (1) Pneumonia Qualifiers: Pneumonia type: due to unspecified organism Laterality: left Lung location: unspecified part of lung Qualified Code(s): J18.9 - Pneumonia, unspecified organism Is this a current diagnosis for this admission?: Yes Plan: Continue IV antibiotic (2) Acute hypoxemic respiratory failure Is this a current diagnosis for this admission?: Yes Plan: Continue supplemental oxygen via nasal cannula (3) Acute kidney injury Is this a current diagnosis for this admission?: Yes - Time Time Spent with patient: 25-34 minutes Level of Care: IMCU Medications reviewed and adjusted accordingly: Yes Anticipated discharge: Home Anticipated DC Timeframe: within 72 hours - Inpatient Certification Based on my medical assessment, after consideration of the patient's comorbidities, presenting symptoms, or acuity I expect that the services needed warrant INPATIENT care.: Yes
[2020-06-17] MEDS: HYDROMORPHONE HCL INJ/PF 2 MG/ML AMPULE IV PRN (22:22)
[2020-06-17] MEDS: RANOLAZINE 500 MG TAB.SR.12H PO SCH (22:22)
[2020-06-17] MEDS: GABAPENTIN 300 MG CAPSULE PO SCH (22:22)
[2020-06-18] MEDS: GABAPENTIN 300 MG CAPSULE PO SCH ×3 (05:12→21:03)
[2020-06-18] MEDS: LEVOTHYROXINE SODIUM 0.1 MG TABLET PO SCH (05:12)
[2020-06-18] MEDS: MEROPENEM 1 GM in NORMAL SALINE 50 ML IV SCH ×3 (05:12→21:04)
[2020-06-18] MEDS: HEPARIN SOD (PORCINE) 5,000 UNIT/ML 1 ML VIAL SUBCUT SCH ×3 (05:13→21:04)
[2020-06-18] MEDS: RINGERS SOLUTION,LACTATED 1,000 ML IV PRN ×2 (05:18→15:12)
[2020-06-18 05:20] LABS: ABSOLUTE EOSINOPHILS # (AUTO) 0.1 10^3/uL (0.0-0.6); ABSOLUTE MONOCYTES (AUTO) 0.5 10^3/uL (0.1-1.4); ABSOLUTE NEUT (AUTO) 5.5 10^3/uL (1.7-8.2); BASOPHILS % (AUTO) 0.6 % (0-2); EOSINOPHILS % (AUTO) 0.9 % (0-6); HEMATOCRIT 27.8 % (36.0-47.0); HEMOGLOBIN 9.6 g/dL (12.0-15.5); LYMPHOCYTES % (AUTO) 14.2 % (13-45); MEAN CORPUSCULAR HEMOGLOBIN 25.6 pg (27.0-33.4); MEAN CORPUSCULAR HGB CONC 34.5 g/dL (32.0-36.0); MEAN CORPUSCULAR VOLUME 74 fl (80-97); MONOCYTES % (AUTO) 7.4 % (3-13); PLATELET COUNT 233 10^3/uL (150-450); RED BLOOD COUNT 3.74 10^6/uL (3.72-5.28); RED CELL DISTRIBUTION WIDTH 16.6 % (11.5-14.0); SEGMENTED NEUTROPHILS % (AUTO) 76.9 % (42-78); TOTAL CELLS COUNTED % (AUTO) 100 %; WHITE BLOOD COUNT 7.2 10^3/uL (4.0-10.5)
[2020-06-18 05:45] LABS: ALBUMIN 2.5 g/dL (3.5-5.0); ALKALINE PHOSPHATASE 94 U/L (38-126); ANION GAP 10 (5-19); ASPARTATE AMINO TRANSFERASE 13 U/L (14-36); BILIRUBIN,DIRECT 0.2 mg/dL (0.0-0.4); BILIRUBIN,TOTAL 0.6 mg/dL (0.2-1.3); BLOOD UREA NITROGEN 26 mg/dL (7-20); CALCIUM 7.9 mg/dL (8.4-10.2); CARBON DIOXIDE 18 mmol/L (22-30); CHLORIDE 106 mmol/L (98-107); GLUCOSE 85 mg/dL (75-110); POTASSIUM 3.2 mmol/L (3.6-5.0); TOTAL PROTEIN 4.6 g/dL (6.3-8.2)
[2020-06-18] MEDS: HYDROMORPHONE HCL INJ/PF 2 MG/ML AMPULE IV PRN ×3 (06:37→23:12)
[2020-06-18 08:09] LABS: APPEARANCE,URINE CLEAR; BILIRUBIN,URINE NEGATIVE (NEGATIVE); COLOR,URINE STRAW; GLUCOSE, URINE NEGATIVE (NEGATIVE); KETONES,URINE NEGATIVE (NEGATIVE); PROTEIN,URINE NEGATIVE (NEGATIVE); URINE SPECIFIC GRAVITY 1.009; UROBILINOGEN,URINE NEGATIVE mg/dL (<2.0)
[2020-06-18] MEDS: RANOLAZINE 500 MG TAB.SR.12H PO SCH ×2 (09:10→21:05)
[2020-06-18] MEDS: SERTRALINE HCL 50 MG TABLET PO SCH (09:10)
[2020-06-18] MEDS ORDERED: POTASSIUM CHLORIDE 10 MEQ TABLET.ER PO ONE (09:30)
[2020-06-18] MEDS: ONDANSETRON HCL INJ/PF 4 MG/2 ML SDV IV PRN ×2 (11:56→20:05)
--- NOTE | 2020-06-18 20:49 | PDOC PROGRESS REPORT ---
Subjective Progress Note for:: 06/18/20 Subjective:: Patient seen by the bedside,SARS-CoV-2 test was positive my understanding was that because patient has had SARS-CoV-2 consistently for more than 10 days, she does not meet the criteria for the administration of remdesivir Reason For Visit: ASPIRATION PNEUMONIA, LACTIC ACIDOSIS, SEPSIS, Physical Exam Vital Signs: Temp Pulse Resp BP Pulse Ox 98.5 F 86 12 136/97 H 95 06/18/20 19:44 06/18/20 19:44 06/18/20 19:44 06/18/20 19:44 06/18/20 19:44 Intake & Output 06/17/20 06/18/20 06/19/20 06:59 06:59 06:59 Intake Total 1883 1780 1090 Output Total 6399 1371 Balance 0061 -292 -089 Weight 89.4 kg 95.6 kg General appearance: PRESENT: no acute distress Eye exam: PRESENT: PERRLA Respiratory exam: PRESENT: clear to auscultation martínez Cardiovascular exam: PRESENT: +S1, +S2 GI/Abdominal exam: PRESENT: soft Neurological exam: PRESENT: alert Results Laboratory Results: 06/18/20 05:01 06/18/20 05:01 06/18/20 06/18/20 06/18/20 05:01 05:01 06:45 WBC 7.2 RBC 3.74 Hgb 9.6 L Hct 27.8 L MCV 74 L MCH 25.6 L MCHC 34.5 RDW 16.6 H Plt Count 233 Seg Neutrophils % 76.9 Sodium 133.8 L Potassium 3.2 L Chloride 106 Carbon Dioxide 18 L Anion Gap 10 BUN 26 H Creatinine 1.71 H Est GFR ( Amer) 36 L Glucose 85 Calcium 7.9 L Total Bilirubin 0.6 AST 13 L Alkaline Phosphatase 94 Total Protein 4.6 L Albumin 2.5 L Urine Color STRAW Urine Appearance CLEAR Urine pH 6.0 Ur Specific [place] 1.009 Urine Protein NEGATIVE Urine Glucose (UA) NEGATIVE Urine Ketones NEGATIVE Urine Blood NEGATIVE Urine RBC (Auto) 6 06/16/20 20:15 Blood Blood Culture (PCR) - Final Staphylococcus Species 06/16/20 06/16/20 06/16/20 20:13 20:13 20:13 Creatine Kinase 22 L CK-MB (CK-2) 1.11 Troponin I < 0.012 Cancelled Impressions: Chest X-Ray 06/16/20 19:16 IMPRESSION: Patchy right mid to upper lung zone airspace disease. Consider atelectasis or pneumonia to include aspiration. Recommend follow-up to clearing. copyright 2011 [employer]- All Rights Reserved Assessment & Plan - Diagnosis (1) Pneumonia Qualifiers: Pneumonia type: due to unspecified organism Laterality: left Lung location: unspecified part of lung Qualified Code(s): J18.9 - Pneumonia, unspecified organism Is this a current diagnosis for this admission?: Yes Plan: Continue IV antibiotic (2) Acute hypoxemic respiratory failure Is this a current diagnosis for this admission?: Yes Plan: Continue supplemental oxygen via nasal cannula (3) Acute kidney injury Is this a current diagnosis for this admission?: Yes - Time Time Spent with patient: 25-34 minutes Level of Care: IMCU Medications reviewed and adjusted accordingly: Yes Anticipated discharge: Home - Inpatient Certification Based on my medical assessment, after consideration of the patient's comorbidities, presenting symptoms, or acuity I expect that the services needed warrant INPATIENT care.: Yes I certify that my determination is in accordance with my understanding of Medicare's requirements for reasonable and necessary INPATIENT services [42 CFR 412.3e].: Yes
[2020-06-19] MEDS: RINGERS SOLUTION,LACTATED 1,000 ML IV PRN ×3 (01:20→23:45)
[2020-06-19] MEDS: LEVOTHYROXINE SODIUM 0.1 MG TABLET PO SCH (05:35)
[2020-06-19] MEDS: MEROPENEM 1 GM in NORMAL SALINE 50 ML IV SCH ×3 (05:35→21:33)
[2020-06-19] MEDS: GABAPENTIN 300 MG CAPSULE PO SCH ×3 (05:35→21:34)
[2020-06-19] MEDS: HEPARIN SOD (PORCINE) 5,000 UNIT/ML 1 ML VIAL SUBCUT SCH ×3 (05:35→21:34)
[2020-06-19 08:22] LABS: ABSOLUTE BASOPHILS # (AUTO) 0.1 10^3/uL (0.0-0.2); ABSOLUTE EOSINOPHILS # (AUTO) 0.1 10^3/uL (0.0-0.6); ABSOLUTE LYMPHOCYTES (AUTO) 1.3 10^3/uL (0.5-4.7); ABSOLUTE MONOCYTES (AUTO) 0.7 10^3/uL (0.1-1.4); ABSOLUTE NEUT (AUTO) 5.1 10^3/uL (1.7-8.2); EOSINOPHILS % (AUTO) 1.4 % (0-6); HEMATOCRIT 28.9 % (36.0-47.0); HEMOGLOBIN 9.7 g/dL (12.0-15.5); LYMPHOCYTES % (AUTO) 18.4 % (13-45); MEAN CORPUSCULAR HEMOGLOBIN 25.2 pg (27.0-33.4); MEAN CORPUSCULAR HGB CONC 33.7 g/dL (32.0-36.0); MEAN CORPUSCULAR VOLUME 75 fl (80-97); MONOCYTES % (AUTO) 10.1 % (3-13); PLATELET COUNT 215 10^3/uL (150-450); RED BLOOD COUNT 3.86 10^6/uL (3.72-5.28); RED CELL DISTRIBUTION WIDTH 16.8 % (11.5-14.0); SEGMENTED NEUTROPHILS % (AUTO) 69.1 % (42-78); TOTAL CELLS COUNTED % (AUTO) 100 %; WHITE BLOOD COUNT 7.3 10^3/uL (4.0-10.5)
[2020-06-19] MEDS: SERTRALINE HCL 50 MG TABLET PO SCH (10:03)
[2020-06-19] MEDS: RANOLAZINE 500 MG TAB.SR.12H PO SCH ×2 (10:03→21:34)
[2020-06-19] MEDS: HYDROMORPHONE HCL INJ/PF 2 MG/ML AMPULE IV PRN ×2 (11:21→20:45)
--- NOTE | 2020-06-19 14:41 | PDOC PROGRESS REPORT ---
Subjective Progress Note for:: 06/19/20 Subjective:: Patient seen by the bedside, she was advised to get out of bed to chair. Reason For Visit: ASPIRATION PNEUMONIA, LACTIC ACIDOSIS, SEPSIS, Physical Exam Vital Signs: Temp Pulse Resp BP Pulse Ox 98.7 F 86 20 113/64 96 06/19/20 10:47 06/19/20 10:47 06/19/20 10:47 06/19/20 10:47 06/19/20 10:47 Intake & Output 06/18/20 06/19/20 06/20/20 06:59 06:59 06:59 Intake Total 1780 2190 1275 Output Total 2325 2075 650 Balance -545 115 625 Weight 95.6 kg 96.6 kg General appearance: PRESENT: no acute distress Eye exam: PRESENT: PERRLA Respiratory exam: PRESENT: clear to auscultation martínez Cardiovascular exam: PRESENT: +S1, +S2 GI/Abdominal exam: PRESENT: soft Neurological exam: PRESENT: alert, CN II-XII grossly intact Results Laboratory Results: 06/19/20 07:37 06/18/20 05:01 06/19/20 07:37 WBC 7.3 RBC 3.86 Hgb 9.7 L Hct 28.9 L MCV 75 L MCH 25.2 L MCHC 33.7 RDW 16.8 H Plt Count 215 Seg Neutrophils % 69.1 06/18/20 06:45 Catheterized Urine Urine Culture - Final C.albicans/C.dubliniensis 06/16/20 20:15 Blood Blood Culture (PCR) - Final Staphylococcus Species 06/16/20 06/16/20 06/16/20 20:13 20:13 20:13 Creatine Kinase 22 L CK-MB (CK-2) 1.11 Troponin I < 0.012 Cancelled Impressions: Chest X-Ray 06/16/20 19:16 IMPRESSION: Patchy right mid to upper lung zone airspace disease. Consider atelectasis or pneumonia to include aspiration. Recommend follow-up to clearing. copyright 2011 [employer]- All Rights Reserved Assessment & Plan - Diagnosis (1) Pneumonia Qualifiers: Pneumonia type: due to unspecified organism Laterality: left Lung location: unspecified part of lung Qualified Code(s): J18.9 - Pneumonia, unspecified organism Is this a current diagnosis for this admission?: Yes Plan: Continue IV antibiotic (2) Acute hypoxemic respiratory failure Is this a current diagnosis for this admission?: Yes Plan: Continue supplemental oxygen via nasal cannula (3) Acute kidney injury Is this a current diagnosis for this admission?: Yes Plan: IV access is a challenge in this patient , difficult to get blood for blood test (4) Pneumonia due to COVID-19 virus Is this a current diagnosis for this admission?: Yes Plan: She has COVID-19 positive test (U07.1, COVID-19) with Acute Pneumonia (J12.89, Other viral pneumonia) (If respiratory failure or sepsis present, add as separate assessment), get a chest x-ray - Time Time Spent with patient: 35 or more minutes Level of Care: IMCU Medications reviewed and adjusted accordingly: Yes Anticipated discharge: Home
--- NOTE | 2020-06-19 15:12 | RADIOLOGY REPORT (SQ) ---
EXAM DESCRIPTION: CHEST SINGLE VIEW IMAGES COMPLETED DATE/TIME: 06/19/2020 3:00 pm REASON FOR STUDY: pneumonia COMPARISON: 06/16/2020 TECHNIQUE: Single frontal radiographic view of the chest acquired. NUMBER OF VIEWS: One view. LIMITATIONS: None. FINDINGS: LUNGS AND PLEURA: No pneumothorax. Mild persistent interstitial changes in the right para hilar region. No dense consolidation or pleural effusion. MEDIASTINUM AND HILAR STRUCTURES: Stable. HEART AND VASCULAR STRUCTURES: Stable. BONES: No acute findings. HARDWARE: Old right subclavian central venous catheter and intraspinal stimulator leads. OTHER: No other significant finding. IMPRESSION: Mild persistent interstitial changes in the right parahilar region. No dense consolidat ion or pleural effusion. TECHNICAL DOCUMENTATION: JOB ID: [id number] [id number] 2010 [employer]- All Rights Reserved Reading location - IP/workstation name: [email or web address]
[2020-06-19] MEDS: ONDANSETRON HCL INJ/PF 4 MG/2 ML SDV IV PRN (20:45)
[2020-06-20] MEDS ORDERED: MIDODRINE HCL 5 MG TABLET PO ONE (05:00)
[2020-06-20] MEDS: MEROPENEM 1 GM in NORMAL SALINE 50 ML IV SCH ×3 (05:16→21:17)
[2020-06-20] MEDS: HEPARIN SOD (PORCINE) 5,000 UNIT/ML 1 ML VIAL SUBCUT SCH ×3 (05:16→21:17)
[2020-06-20] MEDS: GABAPENTIN 300 MG CAPSULE PO SCH ×3 (05:17→21:16)
[2020-06-20] MEDS: LEVOTHYROXINE SODIUM 0.1 MG TABLET PO SCH (05:17)
[2020-06-20 07:24] LABS: ALBUMIN 2.7 g/dL (3.5-5.0); ALKALINE PHOSPHATASE 90 U/L (38-126); ANION GAP 9 (5-19); ASPARTATE AMINO TRANSFERASE 17 U/L (14-36); BILIRUBIN,DIRECT 0.4 mg/dL (0.0-0.4); BILIRUBIN,TOTAL 0.7 mg/dL (0.2-1.3); BLOOD UREA NITROGEN 12 mg/dL (7-20); CALCIUM 7.7 mg/dL (8.4-10.2); CARBON DIOXIDE 23 mmol/L (22-30); CHLORIDE 102 mmol/L (98-107); GLUCOSE 70 mg/dL (75-110); POTASSIUM 3.8 mmol/L (3.6-5.0); TOTAL PROTEIN 4.9 g/dL (6.3-8.2)
[2020-06-20] MEDS: MIDODRINE HCL 5 MG TABLET PO SCH ×3 (09:55→17:27)
[2020-06-20] MEDS: RINGERS SOLUTION,LACTATED 1,000 ML IV PRN ×2 (09:55→21:20)
[2020-06-20] MEDS: SERTRALINE HCL 50 MG TABLET PO SCH (09:55)
[2020-06-20] MEDS: RANOLAZINE 500 MG TAB.SR.12H PO SCH ×2 (09:55→21:17)
--- NOTE | 2020-06-20 13:41 | PDOC PROGRESS REPORT ---
Subjective Progress Note for:: 06/20/20 Subjective:: Patient seen by the bedside, the blood pressure is marginally low, she is requesting more pain medication but blood pressure is low, she was started on midodrine last night Reason For Visit: ASPIRATION PNEUMONIA, LACTIC ACIDOSIS, SEPSIS, Physical Exam Vital Signs: Temp Pulse Resp BP Pulse Ox 98.3 F 66 11 L 90/51 L 96 06/20/20 12:09 06/20/20 12:09 06/20/20 12:09 06/20/20 12:09 06/20/20 12:09 Intake & Output 06/19/20 06/20/20 06/21/20 06:59 06:59 06:59 Intake Total 2190 2855 1000 Output Total 2075 3275 Balance 115 -420 1000 Weight 96.6 kg 97.7 kg General appearance: PRESENT: no acute distress Head exam: PRESENT: atraumatic, normocephalic Eye exam: PRESENT: PERRLA Ear exam: PRESENT: normal external ear exam Mouth exam: PRESENT: moist, tongue midline Neck exam: PRESENT: full ROM Respiratory exam: PRESENT: clear to auscultation martínez Cardiovascular exam: PRESENT: RRR, +S1, +S2 Vascular exam: PRESENT: normal capillary refill Rectal exam: PRESENT: deferred Neurological exam: PRESENT: alert Psychiatric exam: PRESENT: appropriate affect, normal mood Skin exam: PRESENT: dry, intact, warm Results Laboratory Results: 06/19/20 07:37 06/20/20 06:20 06/20/20 06:20 Sodium 133.6 L Potassium 3.8 Chloride 102 Carbon Dioxide 23 Anion Gap 9 BUN 12 Creatinine 1.06 Est GFR ( Amer) > 60 Glucose 70 L Calcium 7.7 L Ferritin 182.00 Total Bilirubin 0.7 AST 17 Alkaline Phosphatase 90 Total Protein 4.9 L Albumin 2.7 L 06/16/20 20:15 Blood Blood Culture (PCR) - Final Staphylococcus Species 06/18/20 06:45 Catheterized Urine Urine Culture - Final C.albicans/C.dubliniensis 06/16/20 06/16/20 06/16/20 20:13 20:13 20:13 Creatine Kinase 22 L CK-MB (CK-2) 1.11 Troponin I < 0.012 Cancelled Impressions: Chest X-Ray 06/19/20 00:00 IMPRESSION: Mild persistent interstitial changes in the right parahilar region. No dense consolidation or pleural effusion. Assessment & Plan - Diagnosis (1) Pneumonia Qualifiers: Pneumonia type: due to unspecified organism Laterality: left Lung location: unspecified part of lung Qualified Code(s): J18.9 - Pneumonia, unspecified organism Is this a current diagnosis for this admission?: Yes Plan: Continue IV antibiotic (2) Acute hypoxemic respiratory failure Is this a current diagnosis for this admission?: Yes Plan: Continue supplemental oxygen via nasal cannula (3) Acute kidney injury Is this a current diagnosis for this admission?: Yes Plan: Resolved (4) Pneumonia due to COVID-19 virus Is this a current diagnosis for this admission?: Yes Plan: She has COVID-19 positive test (U07.1, COVID-19) with Acute Pneumonia (J12.89, Other viral pneumonia) (If respiratory failure or sepsis present, add as separate assessment) (5) Hypotension Qualifiers: Hypotension type: other hypotension type Qualified Code(s): I95.89 - Other hypotension Is this a current diagnosis for this admission?: Yes Plan: Start midodrine - Time Time Spent with patient: 35 or more minutes Level of Care: IMCU Medications reviewed and adjusted accordingly: Yes Anticipated discharge: Home Anticipated DC Timeframe: within 72 hours
[2020-06-21] MEDS: HYDROMORPHONE HCL INJ/PF 2 MG/ML AMPULE IV PRN ×2 (00:11→19:46)
[2020-06-21] MEDS: LEVOTHYROXINE SODIUM 0.1 MG TABLET PO SCH (05:32)
[2020-06-21] MEDS: GABAPENTIN 300 MG CAPSULE PO SCH ×3 (05:32→21:23)
[2020-06-21] MEDS: HEPARIN SOD (PORCINE) 5,000 UNIT/ML 1 ML VIAL SUBCUT SCH ×3 (05:32→21:24)
[2020-06-21] MEDS: MEROPENEM 1 GM in NORMAL SALINE 50 ML IV SCH ×3 (05:33→22:02)
[2020-06-21] MEDS: RINGERS SOLUTION,LACTATED 1,000 ML IV PRN ×2 (07:04→18:28)
[2020-06-21] MEDS: SERTRALINE HCL 50 MG TABLET PO SCH (10:33)
[2020-06-21] MEDS: RANOLAZINE 500 MG TAB.SR.12H PO SCH ×2 (10:33→21:23)
[2020-06-21] MEDS: MIDODRINE HCL 5 MG TABLET PO SCH ×3 (10:34→18:28)
--- NOTE | 2020-06-21 18:20 | PDOC PROGRESS REPORT ---
Subjective Progress Note for:: 06/21/20 Subjective:: Patient is alert,, blood pressure is low patient requiring midodrine Reason For Visit: ASPIRATION PNEUMONIA, LACTIC ACIDOSIS, SEPSIS, Physical Exam Vital Signs: Temp Pulse Resp BP Pulse Ox 98.4 F 71 16 92/46 L 99 06/21/20 15:47 06/21/20 15:47 06/21/20 15:47 06/21/20 15:47 06/21/20 15:47 Intake & Output 06/20/20 06/21/20 06/22/20 06:59 06:59 06:59 Intake Total 2855 2322 1132 Output Total 3275 2050 650 Balance -420 272 482 Weight 97.7 kg 97.7 kg General appearance: PRESENT: no acute distress Eye exam: PRESENT: PERRLA Respiratory exam: PRESENT: clear to auscultation martínez Cardiovascular exam: PRESENT: +S1, +S2 GI/Abdominal exam: PRESENT: soft Neurological exam: PRESENT: alert, CN II-XII grossly intact Results Laboratory Results: 06/19/20 07:37 06/20/20 06:20 06/16/20 20:15 Blood Blood Culture (PCR) - Final Staphylococcus Species 06/16/20 20:15 Blood Blood Culture - Final Staphylococcus Epidermidis 06/16/20 06/16/20 06/16/20 20:13 20:13 20:13 Creatine Kinase 22 L CK-MB (CK-2) 1.11 Troponin I < 0.012 Cancelled Impressions: Chest X-Ray 06/19/20 00:00 IMPRESSION: Mild persistent interstitial changes in the right parahilar region. No dense consolidation or pleural effusion. Assessment & Plan - Diagnosis (1) Pneumonia Qualifiers: Pneumonia type: due to unspecified organism Laterality: left Lung location: unspecified part of lung Qualified Code(s): J18.9 - Pneumonia, unspecified organism Is this a current diagnosis for this admission?: Yes Plan: Continue IV antibiotic (2) Acute hypoxemic respiratory failure Is this a current diagnosis for this admission?: Yes Plan: Continue supplemental oxygen via nasal cannula (3) Acute kidney injury Is this a current diagnosis for this admission?: Yes Plan: Resolved (4) Pneumonia due to COVID-19 virus Is this a current diagnosis for this admission?: Yes Plan: She has COVID-19 positive test (U07.1, COVID-19) with Acute Pneumonia (J12.89, Other viral pneumonia) (If respiratory failure or sepsis present, add as separate assessment) (5) Hypotension Qualifiers: Hypotension type: other hypotension type Qualified Code(s): I95.89 - Other hypotension Is this a current diagnosis for this admission?: Yes Plan: continue midodrine - Time Time Spent with patient: 25-34 minutes Level of Care: IMCU Medications reviewed and adjusted accordingly: Yes Anticipated discharge: Home Anticipated DC Timeframe: within 72 hours - Inpatient Certification Based on my medical assessment, after consideration of the patient's comorbidities, presenting symptoms, or acuity I expect that the services needed warrant INPATIENT care.: Yes I certify that my determination is in accordance with my understanding of Medicare's requirements for reasonable and necessary INPATIENT services [42 CFR 412.3e].: Yes
[2020-06-22] MEDS: HYDROMORPHONE HCL INJ/PF 2 MG/ML AMPULE IV PRN ×3 (04:01→21:32)
[2020-06-22] MEDS: RINGERS SOLUTION,LACTATED 1,000 ML IV PRN ×2 (04:02→18:05)
[2020-06-22] MEDS: MEROPENEM 1 GM in NORMAL SALINE 50 ML IV SCH ×3 (05:27→21:36)
[2020-06-22] MEDS: LEVOTHYROXINE SODIUM 0.1 MG TABLET PO SCH (05:28)
[2020-06-22] MEDS: GABAPENTIN 300 MG CAPSULE PO SCH ×3 (05:28→21:36)
[2020-06-22] MEDS: HEPARIN SOD (PORCINE) 5,000 UNIT/ML 1 ML VIAL SUBCUT SCH ×3 (05:28→21:36)
[2020-06-22] MEDS: SERTRALINE HCL 50 MG TABLET PO SCH (10:42)
[2020-06-22] MEDS: MIDODRINE HCL 5 MG TABLET PO SCH ×3 (10:43→17:27)
[2020-06-22] MEDS: RANOLAZINE 500 MG TAB.SR.12H PO SCH ×2 (10:43→21:36)
--- NOTE | 2020-06-22 20:42 | PDOC PROGRESS REPORT ---
Subjective Progress Note for:: 06/22/20 Subjective:: Patient is alert oriented, no new complaints Reason For Visit: ASPIRATION PNEUMONIA, LACTIC ACIDOSIS, SEPSIS, Physical Exam Vital Signs: Temp Pulse Resp BP Pulse Ox 98.2 F 80 18 108/73 98 06/22/20 19:50 06/22/20 19:50 06/22/20 19:50 06/22/20 19:50 06/22/20 19:50 Intake & Output 06/21/20 06/22/20 06/23/20 06:59 06:59 06:59 Intake Total 2322 3549 1310 Output Total 2049 2250 1475 Balance 272 1299 -165 Weight 97.7 kg 93.6 kg 93.6 kg General appearance: PRESENT: no acute distress Eye exam: PRESENT: PERRLA Respiratory exam: PRESENT: clear to auscultation martínez Cardiovascular exam: PRESENT: +S1, +S2 GI/Abdominal exam: PRESENT: soft Results Laboratory Results: 06/19/20 07:37 06/20/20 06:20 06/16/20 19:50 Blood Blood Culture - Final NO GROWTH IN 5 DAYS 06/16/20 06/16/20 06/16/20 20:13 20:13 20:13 Creatine Kinase 22 L CK-MB (CK-2) 1.11 Troponin I < 0.012 Cancelled Impressions: Chest X-Ray 06/19/20 00:00 IMPRESSION: Mild persistent interstitial changes in the right parahilar region. No dense consolidation or pleural effusion. Assessment & Plan - Diagnosis (1) Pneumonia Qualifiers: Pneumonia type: due to unspecified organism Laterality: left Lung location: unspecified part of lung Qualified Code(s): J18.9 - Pneumonia, unspecified organism Is this a current diagnosis for this admission?: Yes Plan: Continue IV antibiotic (2) Acute hypoxemic respiratory failure Is this a current diagnosis for this admission?: Yes Plan: Continue supplemental oxygen via nasal cannula (3) Acute kidney injury Is this a current diagnosis for this admission?: Yes Plan: Resolved (4) Pneumonia due to COVID-19 virus Is this a current diagnosis for this admission?: Yes (5) Hypotension Qualifiers: Hypotension type: other hypotension type Qualified Code(s): I95.89 - Other hypotension Is this a current diagnosis for this admission?: Yes Plan: continue midodrine - Time Time Spent with patient: 25-34 minutes Level of Care: IMCU Medications reviewed and adjusted accordingly: Yes Anticipated discharge: Home - Inpatient Certification Based on my medical assessment, after consideration of the patient's comorbidities, presenting symptoms, or acuity I expect that the services needed warrant INPATIENT care.: Yes I certify that my determination is in accordance with my understanding of [employer]'s requirements for reasonable and necessary INPATIENT services [42 CFR 412.3e].: Yes
[2020-06-22] MEDS: ONDANSETRON HCL INJ/PF 4 MG/2 ML SDV IV PRN (23:19)
[2020-06-23] MEDS: RINGERS SOLUTION,LACTATED 1,000 ML IV PRN ×2 (02:52→13:43)
[2020-06-23] MEDS: GABAPENTIN 300 MG CAPSULE PO SCH ×3 (05:27→22:03)
[2020-06-23] MEDS: HYDROMORPHONE HCL INJ/PF 2 MG/ML AMPULE IV PRN ×3 (05:28→22:05)
[2020-06-23] MEDS: HEPARIN SOD (PORCINE) 5,000 UNIT/ML 1 ML VIAL SUBCUT SCH ×2 (05:28→13:45)
[2020-06-23] MEDS: LEVOTHYROXINE SODIUM 0.1 MG TABLET PO SCH (05:28)
[2020-06-23] MEDS: MEROPENEM 1 GM in NORMAL SALINE 50 ML IV SCH ×3 (05:28→22:02)
[2020-06-23] MEDS: SERTRALINE HCL 50 MG TABLET PO SCH (09:43)
[2020-06-23] MEDS: MIDODRINE HCL 5 MG TABLET PO SCH ×3 (09:43→17:01)
[2020-06-23] MEDS: RANOLAZINE 500 MG TAB.SR.12H PO SCH ×2 (09:44→22:03)
[2020-06-23] MEDS: ONDANSETRON HCL INJ/PF 4 MG/2 ML SDV IV PRN ×2 (13:40→22:03)
--- NOTE | 2020-06-23 15:53 | RADIOLOGY REPORT (SQ) ---
EXAM DESCRIPTION: CHEST SINGLE VIEW IMAGES COMPLETED DATE/TIME: 06/23/2020 3:39 pm REASON FOR STUDY: chest pain COMPARISON: 06/19/2020 EXAM PARAMETERS: NUMBER OF VIEWS: One view. TECHNIQUE: Single frontal radiographic view of the chest acquired. RADIATION DOSE: NA LIMITATIONS: None. FINDINGS: LUNGS AND PLEURA: Persistent bilateral interstitial airspace disease some of which may be chronic. No interval change from prior study. Right-sided [id number] remains in place. MEDIASTINUM AND HILAR STRUCTURES: No masses. Contour normal. HEART AND VASCULAR STRUCTURES: Heart normal in size. Normal vasculature. BONES: No acute findings. HARDWARE: None in the chest. OTHER: No other significant finding. IMPRESSION: No interval change in the chest. TECHNICAL DOCUMENTATION: JOB ID: [id number] 2010 [employer]- All Rights Reserved Reading location - IP/workstation name: [email or web address]
--- NOTE | 2020-06-23 20:33 | PDOC PROGRESS REPORT ---
Subjective Progress Note for:: 06/23/20 Subjective:: Patient seen by the bedside, she complained of chest pain, chest x-ray demonstrated persistent bilateral interstitial airspace disease, CTA is indicated in this patient but she has CKD, IV access was a challenge, history of pulmonary embolism, she is supposed to be on Eliquis, this to be started today Reason For Visit: ASPIRATION PNEUMONIA, LACTIC ACIDOSIS, SEPSIS, Physical Exam Vital Signs: Temp Pulse Resp BP Pulse Ox 98.3 F 76 16 120/70 100 06/23/20 20:00 06/23/20 20:00 06/23/20 20:00 06/23/20 20:00 06/23/20 20:00 Intake & Output 06/22/20 06/23/20 06/24/20 06:59 06:59 06:59 Intake Total 3549 2288 1652 Output Total 2250 2775 1000 Balance 1299 -487 652 Weight 93.6 kg 93.6 kg General appearance: PRESENT: no acute distress Eye exam: PRESENT: PERRLA Respiratory exam: PRESENT: clear to auscultation martínez Cardiovascular exam: PRESENT: +S1, +S2 GI/Abdominal exam: PRESENT: soft Neurological exam: PRESENT: alert Results Laboratory Results: 06/19/20 07:37 06/20/20 06:20 06/16/20 06/16/20 06/16/20 20:13 20:13 20:13 Creatine Kinase 22 L CK-MB (CK-2) 1.11 Troponin I < 0.012 Cancelled Impressions: Chest X-Ray 06/23/20 00:00 IMPRESSION: No interval change in the chest. Assessment & Plan - Diagnosis (1) Pneumonia Qualifiers: Pneumonia type: due to unspecified organism Laterality: left Lung location: unspecified part of lung Qualified Code(s): J18.9 - Pneumonia, unspecified organism Is this a current diagnosis for this admission?: Yes (2) Acute hypoxemic respiratory failure Is this a current diagnosis for this admission?: Yes (3) Acute kidney injury Is this a current diagnosis for this admission?: Yes (4) Pneumonia due to COVID-19 virus Is this a current diagnosis for this admission?: Yes Plan: She has persistent abnormal chest x-ray, she has a history of pulmonary embolism, in the context of COVID, risk of PE is high in this patient, she will be started on Eliquis that she was on previously for this admission (5) Hypotension Qualifiers: Hypotension type: other hypotension type Qualified Code(s): I95.89 - Other hypotension Is this a current diagnosis for this admission?: Yes - Time Time Spent with patient: 25-34 minutes Level of Care: IMCU Medications reviewed and adjusted accordingly: Yes - Plan Summary Plan Summary: Order d-dimer and start Eliquis
[2020-06-23] MEDS: APIXABAN 5 MG TABLET PO SCH (22:04)
[2020-06-24] MEDS: RINGERS SOLUTION,LACTATED 1,000 ML IV PRN (02:23)
[2020-06-24] MEDS: GABAPENTIN 300 MG CAPSULE PO SCH ×3 (06:52→22:51)
[2020-06-24] MEDS: LEVOTHYROXINE SODIUM 0.1 MG TABLET PO SCH (06:52)
[2020-06-24] MEDS: APIXABAN 5 MG TABLET PO SCH ×2 (10:01→22:51)
[2020-06-24] MEDS: RANOLAZINE 500 MG TAB.SR.12H PO SCH ×2 (10:01→22:51)
[2020-06-24] MEDS: SERTRALINE HCL 50 MG TABLET PO SCH (10:01)
[2020-06-24] MEDS: MIDODRINE HCL 5 MG TABLET PO SCH ×3 (10:01→17:15)
[2020-06-24] MEDS: HYDROMORPHONE HCL INJ/PF 2 MG/ML AMPULE IV PRN ×2 (13:56→23:29)
--- NOTE | 2020-06-24 21:46 | PDOC PROGRESS REPORT ---
Subjective Progress Note for:: 06/24/20 Subjective:: Patient seen by the bedside admitted for the management of COVID-19 positive test (U07.1, COVID-19) with Acute Pneumonia (J12.89, Other viral pneumonia) She was started back on Eliquis yesterday Reason For Visit: ASPIRATION PNEUMONIA, LACTIC ACIDOSIS, SEPSIS, Physical Exam Vital Signs: Temp Pulse Resp BP Pulse Ox 99.2 F 82 16 91/53 L 94 06/24/20 19:30 06/24/20 19:30 06/24/20 19:30 06/24/20 19:30 06/24/20 19:30 Intake & Output 06/23/20 06/24/20 06/25/20 06:59 06:59 06:59 Intake Total 2288 3365 1480 Output Total 2775 2175 1200 Balance -487 1190 280 Weight 93.6 kg 101.3 kg General appearance: PRESENT: no acute distress Eye exam: PRESENT: PERRLA Respiratory exam: PRESENT: clear to auscultation martínez Cardiovascular exam: PRESENT: +S1, +S2 GI/Abdominal exam: PRESENT: soft Neurological exam: PRESENT: alert, CN II-XII grossly intact Results Laboratory Results: 06/19/20 07:37 06/20/20 06:20 06/16/20 06/16/20 06/16/20 20:13 20:13 20:13 Creatine Kinase 22 L CK-MB (CK-2) 1.11 Troponin I < 0.012 Cancelled Impressions: Chest X-Ray 06/23/20 00:00 IMPRESSION: No interval change in the chest. Assessment & Plan - Diagnosis (1) Pneumonia Qualifiers: Pneumonia type: due to unspecified organism Laterality: left Lung location: unspecified part of lung Qualified Code(s): J18.9 - Pneumonia, unspecified organism Is this a current diagnosis for this admission?: Yes (2) Acute hypoxemic respiratory failure Is this a current diagnosis for this admission?: Yes (3) Acute kidney injury Is this a current diagnosis for this admission?: Yes (4) Pneumonia due to COVID-19 virus Is this a current diagnosis for this admission?: Yes Plan: She has persistent abnormal chest x-ray, she has a history of pulmonary embolism, in the context of COVID, risk of PE is high in this patient, she was started on Eliquis (5) Hypotension Qualifiers: Hypotension type: other hypotension type Qualified Code(s): I95.89 - Other hypotension Is this a current diagnosis for this admission?: Yes - Time Time Spent with patient: 25-34 minutes Level of Care: IMCU Medications reviewed and adjusted accordingly: Yes Anticipated discharge: Home Anticipated DC Timeframe: within 72 hours
[2020-06-24] MEDS: ONDANSETRON HCL INJ/PF 4 MG/2 ML SDV IV PRN (22:51)
[2020-06-25] MEDS: RINGERS SOLUTION,LACTATED 1,000 ML IV PRN ×2 (03:34→14:36)
[2020-06-25] MEDS: GABAPENTIN 300 MG CAPSULE PO SCH ×3 (05:17→21:49)
[2020-06-25] MEDS: LEVOTHYROXINE SODIUM 0.1 MG TABLET PO SCH (05:17)
[2020-06-25] MEDS: RANOLAZINE 500 MG TAB.SR.12H PO SCH ×2 (11:44→21:49)
[2020-06-25] MEDS: SERTRALINE HCL 50 MG TABLET PO SCH (11:44)
[2020-06-25] MEDS: MIDODRINE HCL 5 MG TABLET PO SCH ×3 (11:44→17:37)
[2020-06-25] MEDS: APIXABAN 5 MG TABLET PO SCH ×2 (11:44→21:50)
[2020-06-25] MEDS: HYDROMORPHONE HCL INJ/PF 2 MG/ML AMPULE IV PRN ×2 (14:33→22:15)
--- NOTE | 2020-06-25 22:55 | PDOC PROGRESS REPORT ---
Subjective Progress Note for:: 06/25/20 Subjective:: Patient seen by the bedside admitted for the management of COVID-19 positive test (U07.1, COVID-19) with Acute Pneumonia (J12.89, Other viral pneumonia) She was started back on Eliquis She will hopefully be discharged home next week Reason For Visit: ASPIRATION PNEUMONIA, LACTIC ACIDOSIS, SEPSIS, Physical Exam Vital Signs: Temp Pulse Resp BP Pulse Ox 99.1 F 75 18 151/85 H 92 06/25/20 15:33 06/25/20 15:33 06/25/20 15:33 06/25/20 17:37 06/25/20 15:33 Intake & Output 06/24/20 06/25/20 06/26/20 06:59 06:59 06:59 Intake Total 3365 1801 1730 Output Total 2175 1600 1400 Balance 1190 201 330 Weight 101.3 kg 101.3 kg General appearance: PRESENT: no acute distress Eye exam: PRESENT: PERRLA Respiratory exam: PRESENT: clear to auscultation martínez Cardiovascular exam: PRESENT: +S1, +S2 GI/Abdominal exam: PRESENT: soft Neurological exam: PRESENT: alert Results Laboratory Results: 06/19/20 07:37 06/20/20 06:20 06/16/20 06/16/20 06/16/20 20:13 20:13 20:13 Creatine Kinase 22 L CK-MB (CK-2) 1.11 Troponin I < 0.012 Cancelled Impressions: Chest X-Ray 06/23/20 00:00 IMPRESSION: No interval change in the chest. Assessment & Plan - Diagnosis (1) Pneumonia Qualifiers: Pneumonia type: due to unspecified organism Laterality: left Lung location: unspecified part of lung Qualified Code(s): J18.9 - Pneumonia, unspecified organism Is this a current diagnosis for this admission?: Yes (2) Acute hypoxemic respiratory failure Is this a current diagnosis for this admission?: Yes (3) Acute kidney injury Is this a current diagnosis for this admission?: Yes (4) Pneumonia due to COVID-19 virus Is this a current diagnosis for this admission?: Yes Plan: She has persistent abnormal chest x-ray, she has a history of pulmonary embolism, in the context of COVID, risk of PE is high in this patient, she was started on Eliquis (5) Hypotension Qualifiers: Hypotension type: other hypotension type Qualified Code(s): I95.89 - Other hypotension Is this a current diagnosis for this admission?: Yes - Time Time Spent with patient: 35 or more minutes Level of Care: MEDICAL Medications reviewed and adjusted accordingly: Yes - Inpatient Certification Based on my medical assessment, after consideration of the patient's comorbidities, presenting symptoms, or acuity I expect that the services needed warrant INPATIENT care.: Yes I certify that my determination is in accordance with my understanding of Medicare's requirements for reasonable and necessary INPATIENT services [42 CFR 412.3e].: Yes
[2020-06-26] MEDS: HYDROMORPHONE HCL INJ/PF 2 MG/ML AMPULE IV PRN ×2 (06:13→16:44)
[2020-06-26] MEDS: LEVOTHYROXINE SODIUM 0.1 MG TABLET PO SCH (06:14)
[2020-06-26] MEDS: GABAPENTIN 300 MG CAPSULE PO SCH ×3 (06:14→23:13)
[2020-06-26] MEDS: APIXABAN 5 MG TABLET PO SCH ×2 (09:58→23:13)
[2020-06-26] MEDS: SERTRALINE HCL 50 MG TABLET PO SCH (09:58)
[2020-06-26] MEDS: MIDODRINE HCL 5 MG TABLET PO SCH ×3 (09:58→18:57)
[2020-06-26] MEDS: RANOLAZINE 500 MG TAB.SR.12H PO SCH ×2 (09:58→23:13)
--- NOTE | 2020-06-26 10:37 | PDOC PROGRESS REPORT ---
Subjective Progress Note for:: 06/26/20 Subjective:: Patient is currently doing well Patient is denied any chest pain no short of breath Patient having no fever no chills Discussed with nursing staff no other concern except the IV access Patient have a Port-A-Cath Reason For Visit: ASPIRATION PNEUMONIA, LACTIC ACIDOSIS, SEPSIS, Physical Exam Vital Signs: Temp Pulse Resp BP Pulse Ox 98.7 F 76 20 97/47 L 94 06/26/20 08:48 06/26/20 08:48 06/26/20 08:48 06/26/20 08:48 06/26/20 08:48 Intake & Output 06/25/20 06/26/20 06/27/20 06:59 06:59 06:59 Intake Total 1801 1730 Output Total 1600 2325 Balance 201 -595 Weight 101.3 kg 101.6 kg General appearance: PRESENT: no acute distress, well-developed, well-nourished Eye exam: PRESENT: PERRLA Mouth exam: PRESENT: neck supple Respiratory exam: PRESENT: decreased breath sounds Cardiovascular exam: PRESENT: +S1, +S2 Neurological exam: PRESENT: alert, awake, oriented to person, oriented to place, oriented to time, oriented to situation Results Laboratory Results: 06/19/20 07:37 06/20/20 06:20 06/16/20 06/16/20 06/16/20 20:13 20:13 20:13 Creatine Kinase 22 L CK-MB (CK-2) 1.11 Troponin I < 0.012 Cancelled Impressions: Chest X-Ray 06/23/20 00:00 IMPRESSION: No interval change in the chest. Assessment & Plan - Diagnosis (1) NGOC (acute kidney injury) Is this a current diagnosis for this admission?: Yes (2) Acute hypoxemic respiratory failure Is this a current diagnosis for this admission?: Yes (3) Pneumonia due to COVID-19 virus Is this a current diagnosis for this admission?: Yes - Time Time Spent with patient: 15-24 minutes Medications reviewed and adjusted accordingly: Yes Anticipated discharge: Home Anticipated DC Timeframe: Other - Plan Summary Plan Summary: Continues to current medications
[2020-06-26] MEDS: ONDANSETRON HCL INJ/PF 4 MG/2 ML SDV IV PRN (16:44)
[2020-06-27] MEDS: ONDANSETRON HCL INJ/PF 4 MG/2 ML SDV IV PRN ×3 (00:33→18:01)
[2020-06-27] MEDS: HYDROMORPHONE HCL INJ/PF 2 MG/ML AMPULE IV PRN ×3 (00:33→18:00)
[2020-06-27] MEDS: LEVOTHYROXINE SODIUM 0.1 MG TABLET PO SCH (05:35)
[2020-06-27] MEDS: GABAPENTIN 300 MG CAPSULE PO SCH ×3 (05:35→22:38)
[2020-06-27 06:49] LABS: ABSOLUTE BASOPHILS # (AUTO) 0.1 10^3/uL (0.0-0.2); ABSOLUTE EOSINOPHILS # (AUTO) 0.2 10^3/uL (0.0-0.6); ABSOLUTE LYMPHOCYTES (AUTO) 1.3 10^3/uL (0.5-4.7); ABSOLUTE MONOCYTES (AUTO) 0.6 10^3/uL (0.1-1.4); ABSOLUTE NEUT (AUTO) 4.6 10^3/uL (1.7-8.2); BASOPHILS % (AUTO) 0.8 % (0-2); EOSINOPHILS % (AUTO) 2.7 % (0-6); HEMATOCRIT 28.1 % (36.0-47.0); HEMOGLOBIN 9.5 g/dL (12.0-15.5); MEAN CORPUSCULAR HEMOGLOBIN 25.4 pg (27.0-33.4); MEAN CORPUSCULAR HGB CONC 33.6 g/dL (32.0-36.0); MEAN CORPUSCULAR VOLUME 76 fl (80-97); MONOCYTES % (AUTO) 8.5 % (3-13); PLATELET COUNT 197 10^3/uL (150-450); RED BLOOD COUNT 3.73 10^6/uL (3.72-5.28); RED CELL DISTRIBUTION WIDTH 16.9 % (11.5-14.0); TOTAL CELLS COUNTED % (AUTO) 100 %; WHITE BLOOD COUNT 6.6 10^3/uL (4.0-10.5)
[2020-06-27 07:19] LABS: ANION GAP 6 (5-19); BLOOD UREA NITROGEN 8 mg/dL (7-20); CALCIUM 7.8 mg/dL (8.4-10.2); CARBON DIOXIDE 27 mmol/L (22-30); CHLORIDE 102 mmol/L (98-107); GLUCOSE 90 mg/dL (75-110); POTASSIUM 3.8 mmol/L (3.6-5.0)
[2020-06-27] MEDS: MIDODRINE HCL 5 MG TABLET PO SCH ×3 (09:33→17:57)
[2020-06-27] MEDS: SERTRALINE HCL 50 MG TABLET PO SCH (09:34)
[2020-06-27] MEDS: APIXABAN 5 MG TABLET PO SCH ×2 (09:34→22:38)
--- NOTE | 2020-06-27 09:48 | PDOC PROGRESS REPORT ---
Subjective Progress Note for:: 06/27/20 Subjective:: Patient is currently doing fair Denied any chest pain no short of breath Patient's appetite is very poor No fever Reason For Visit: ASPIRATION PNEUMONIA, LACTIC ACIDOSIS, SEPSIS, Physical Exam Vital Signs: Temp Pulse Resp BP Pulse Ox 98.1 F 76 16 124/53 L 100 06/27/20 08:24 06/27/20 08:24 06/27/20 08:24 06/27/20 08:24 06/27/20 08:24 Intake & Output 06/26/20 06/27/20 06/28/20 06:59 06:59 06:59 Intake Total 1730 580 Output Total 2325 775 Balance -595 -195 Weight 101.6 kg 100.1 kg General appearance: PRESENT: no acute distress, obese, well-developed, well- nourished Head exam: PRESENT: atraumatic, normocephalic Eye exam: PRESENT: conjunctiva pink, EOMI, PERRLA. ABSENT: scleral icterus Ear exam: PRESENT: normal external ear exam Mouth exam: PRESENT: moist, tongue midline Neck exam: PRESENT: full ROM. ABSENT: carotid bruit, JVD, lymphadenopathy, thyromegaly Cardiovascular exam: PRESENT: RRR. ABSENT: diastolic murmur, rubs, systolic murmur Vascular exam: PRESENT: normal capillary refill GI/Abdominal exam: PRESENT: normal bowel sounds, soft. ABSENT: distended, guarding, mass, organolmegaly, rebound, tenderness Rectal exam: PRESENT: deferred Neurological exam: PRESENT: alert, awake, oriented to person, oriented to place, oriented to time, oriented to situation. ABSENT: motor sensory deficit Psychiatric exam: PRESENT: appropriate affect, normal mood. ABSENT: homicidal ideation, suicidal ideation Skin exam: PRESENT: dry, intact, warm. ABSENT: cyanosis, rash Results Laboratory Results: 06/27/20 05:35 06/27/20 05:35 06/27/20 06/27/20 05:35 05:35 WBC 6.6 RBC 3.73 Hgb 9.5 L Hct 28.1 L MCV 76 L MCH 25.4 L MCHC 33.6 RDW 16.9 H Plt Count 197 Seg Neutrophils % 69.0 Sodium 134.8 L Potassium 3.8 Chloride 102 Carbon Dioxide 27 Anion Gap 6 BUN 8 Creatinine 0.96 Est GFR ( Amer) > 60 Glucose 90 Calcium 7.8 L 06/16/20 06/16/20 06/16/20 20:13 20:13 20:13 Creatine Kinase 22 L CK-MB (CK-2) 1.11 Troponin I < 0.012 Cancelled Impressions: Chest X-Ray 06/23/20 00:00 IMPRESSION: No interval change in the chest. Assessment & Plan - Diagnosis (1) NGOC (acute kidney injury) Is this a current diagnosis for this admission?: Yes (2) Acute hypoxemic respiratory failure Is this a current diagnosis for this admission?: Yes (3) Pneumonia due to COVID-19 virus Is this a current diagnosis for this admission?: Yes - Time Time Spent with patient: 15-24 minutes Level of Care: IMCU Medications reviewed and adjusted accordingly: Yes Anticipated discharge: Home, Home with Homehealth Anticipated DC Timeframe: within 48 hours - Plan Summary Plan Summary: Continues to current medications Dietary consult Physical therapy consult
[2020-06-27] MEDS: RANOLAZINE 500 MG TAB.SR.12H PO SCH ×2 (14:27→22:38)
[2020-06-28] MEDS: HYDROMORPHONE HCL INJ/PF 2 MG/ML AMPULE IV PRN ×3 (02:00→21:00)
[2020-06-28] MEDS: ONDANSETRON HCL INJ/PF 4 MG/2 ML SDV IV PRN ×3 (02:00→21:01)
[2020-06-28] MEDS: GABAPENTIN 300 MG CAPSULE PO SCH ×3 (06:43→21:21)
[2020-06-28] MEDS: LEVOTHYROXINE SODIUM 0.1 MG TABLET PO SCH (06:43)
[2020-06-28] MEDS: RANOLAZINE 500 MG TAB.SR.12H PO SCH ×2 (09:28→21:22)
[2020-06-28] MEDS: SERTRALINE HCL 50 MG TABLET PO SCH (09:28)
[2020-06-28] MEDS: MIDODRINE HCL 5 MG TABLET PO SCH ×3 (09:28→17:14)
[2020-06-28] MEDS: APIXABAN 5 MG TABLET PO SCH ×2 (09:28→21:22)
[2020-06-28 10:47] LABS: ANION GAP 9 (5-19); BLOOD UREA NITROGEN 6 mg/dL (7-20); CALCIUM 7.7 mg/dL (8.4-10.2); CARBON DIOXIDE 27 mmol/L (22-30); CHLORIDE 100 mmol/L (98-107); GLUCOSE 91 mg/dL (75-110); POTASSIUM 3.8 mmol/L (3.6-5.0)
--- NOTE | 2020-06-28 18:17 | RADIOLOGY REPORT (SQ) ---
EXAM DESCRIPTION: CHEST SINGLE VIEW IMAGES COMPLETED DATE/TIME: 06/28/2020 5:36 pm REASON FOR STUDY: pneumonia COMPARISON: 06/23/2020 EXAM PARAMETERS: NUMBER OF VIEWS: One view. TECHNIQUE: Single frontal radiographic view of the chest acquired. RADIATION DOSE: NA LIMITATIONS: None. FINDINGS: LUNGS AND PLEURA: No opacities, masses or pneumothorax. No pleural effusion. MEDIASTINUM AND HILAR STRUCTURES: No masses. Contour normal. HEART AND VASCULAR STRUCTURES: Heart normal in size. Normal vasculature. BONES: No acute findings. HARDWARE: None in the chest. OTHER: No other significant finding. IMPRESSION: NO ACUTE RADIOGRAPHIC FINDING IN THE CHEST. TECHNICAL DOCUMENTATION: JOB ID: [id number] 2010 [email or web address]- All Rights Reserved Reading location - IP/workstation name: [email or web address]
--- NOTE | 2020-06-28 20:22 | PDOC PROGRESS REPORT ---
Subjective Progress Note for:: 06/28/20 Subjective:: Patient was seen by the bedside today, she has non specific complaints of fatigue, congestion, she said she has congestion in the chest area, a repeat chest x-ray was done today it was clear suggesting resolution of pneumonia. She will be started on atorvastatin, beta-mariana Coreg, she has a history of CAD, she will be discharged home tomorrow or Sunday Reason For Visit: ASPIRATION PNEUMONIA, LACTIC ACIDOSIS, SEPSIS, Physical Exam Vital Signs: Temp Pulse Resp BP Pulse Ox 97.9 F 82 12 137/68 H 94 06/28/20 14:58 06/28/20 14:58 06/28/20 14:58 06/28/20 14:58 06/28/20 14:58 Intake & Output 06/27/20 06/28/20 06/29/20 06:59 06:59 06:59 Intake Total 580 1188 500 Output Total 775 1175 275 Balance -195 13 225 Weight 100.1 kg 99.2 kg General appearance: PRESENT: no acute distress Eye exam: PRESENT: PERRLA Respiratory exam: PRESENT: clear to auscultation martínez Cardiovascular exam: PRESENT: +S1, +S2 GI/Abdominal exam: PRESENT: soft Neurological exam: PRESENT: alert Results Laboratory Results: 06/27/20 05:35 06/28/20 10:10 06/28/20 10:10 Sodium 135.9 L Potassium 3.8 Chloride 100 Carbon Dioxide 27 Anion Gap 9 BUN 6 L Creatinine 0.93 Est GFR ( Amer) > 60 Glucose 91 Calcium 7.7 L 06/16/20 06/16/20 06/16/20 20:13 20:13 20:13 Creatine Kinase 22 L CK-MB (CK-2) 1.11 Troponin I < 0.012 Cancelled Impressions: Chest X-Ray 06/28/20 00:00 IMPRESSION: NO ACUTE RADIOGRAPHIC FINDING IN THE CHEST. Assessment & Plan - Diagnosis (1) Pneumonia Qualifiers: Pneumonia type: due to unspecified organism Laterality: left Lung location: unspecified part of lung Qualified Code(s): J18.9 - Pneumonia, unspecified organism Is this a current diagnosis for this admission?: Yes Plan: Resolved (2) Acute hypoxemic respiratory failure Is this a current diagnosis for this admission?: Yes Plan: Resolved (3) Acute kidney injury Is this a current diagnosis for this admission?: Yes Plan: Resolved (4) Pneumonia due to COVID-19 virus Is this a current diagnosis for this admission?: Yes Plan: Resolved (5) Hypotension Qualifiers: Hypotension type: other hypotension type Qualified Code(s): I95.89 - Other hypotension Is this a current diagnosis for this admission?: Yes Plan: Resolved (6) Coronary artery disease Qualifiers: Coronary Disease-Associated Artery/Lesion type: [place] artery [place] vs. transplanted heart: [place] heart Associated angina: without angina Qualified Code(s): I25.10 - Atherosclerotic heart disease of [place] coronary artery w ithout angina pectoris Is this a current diagnosis for this admission?: Yes Plan: Start Coreg, atorvastatin - Time Time Spent with patient: 35 or more minutes Level of Care: IMCU Medications reviewed and adjusted accordingly: Yes Anticipated DC Timeframe: within 24 hours
[2020-06-28] MEDS: ATORVASTATIN CALCIUM 20 MG TABLET PO SCH (21:21)
[2020-06-28] MEDS: CARVEDILOL 3.125 MG TABLET PO SCH (21:22)
[2020-06-29] MEDS: LEVOTHYROXINE SODIUM 0.1 MG TABLET PO SCH (05:19)
[2020-06-29] MEDS: GABAPENTIN 300 MG CAPSULE PO SCH ×3 (05:19→21:45)
[2020-06-29 05:37] LABS: ANION GAP 7 (5-19); BLOOD UREA NITROGEN 6 mg/dL (7-20); CALCIUM 7.7 mg/dL (8.4-10.2); CARBON DIOXIDE 27 mmol/L (22-30); CHLORIDE 100 mmol/L (98-107); GLUCOSE 84 mg/dL (75-110); POTASSIUM 3.8 mmol/L (3.6-5.0)
[2020-06-29] MEDS: APIXABAN 5 MG TABLET PO SCH ×2 (11:22→21:45)
[2020-06-29] MEDS: MIDODRINE HCL 5 MG TABLET PO SCH ×3 (11:22→17:57)
[2020-06-29] MEDS: CARVEDILOL 3.125 MG TABLET PO SCH ×2 (11:22→21:45)
[2020-06-29] MEDS: SERTRALINE HCL 50 MG TABLET PO SCH (11:22)
[2020-06-29] MEDS: RANOLAZINE 500 MG TAB.SR.12H PO SCH ×2 (11:23→21:45)
[2020-06-29] MEDS: ONDANSETRON HCL INJ/PF 4 MG/2 ML SDV IV PRN ×2 (11:48→20:36)
[2020-06-29] MEDS: HYDROMORPHONE HCL INJ/PF 2 MG/ML AMPULE IV PRN ×2 (11:48→20:37)
--- NOTE | 2020-06-29 19:44 | PDOC PROGRESS REPORT ---
Subjective Progress Note for:: 06/29/20 Subjective:: Patient is alert she is extremely deconditioned, but will be discharged home with PT tomorrow ,does not want to go to a facility for rehabilitation Reason For Visit: ASPIRATION PNEUMONIA, LACTIC ACIDOSIS, SEPSIS, Physical Exam Vital Signs: Temp Pulse Resp BP Pulse Ox 98.9 F 75 18 114/57 L 95 06/29/20 13:04 06/29/20 19:00 06/29/20 13:04 06/29/20 13:04 06/29/20 13:04 Intake & Output 06/28/20 06/29/20 06/30/20 06:59 06:59 06:59 Intake Total 1188 1020 355 Output Total 7312 477 0878 Balance 13 345 -945 Weight 99.2 kg 99.1 kg General appearance: PRESENT: no acute distress Eye exam: PRESENT: PERRLA Respiratory exam: PRESENT: clear to auscultation martínez Cardiovascular exam: PRESENT: +S1, +S2 GI/Abdominal exam: PRESENT: soft Neurological exam: PRESENT: alert, CN II-XII grossly intact Results Laboratory Results: 06/27/20 05:35 06/29/20 04:35 06/29/20 04:35 Sodium 133.8 L Potassium 3.8 Chloride 100 Carbon Dioxide 27 Anion Gap 7 BUN 6 L Creatinine 0.99 Est GFR ( Amer) > 60 Glucose 84 Calcium 7.7 L 06/16/20 06/16/20 06/16/20 20:13 20:13 20:13 Creatine Kinase 22 L CK-MB (CK-2) 1.11 Troponin I < 0.012 Cancelled Impressions: Chest X-Ray 06/28/20 00:00 IMPRESSION: NO ACUTE RADIOGRAPHIC FINDING IN THE CHEST. Assessment & Plan - Diagnosis (1) Pneumonia Qualifiers: Pneumonia type: due to unspecified organism Laterality: left Lung location: unspecified part of lung Qualified Code(s): J18.9 - Pneumonia, unspecified organism Is this a current diagnosis for this admission?: Yes Plan: Resolved (2) Acute hypoxemic respiratory failure Is this a current diagnosis for this admission?: Yes Plan: Resolved (3) Acute kidney injury Is this a current diagnosis for this admission?: Yes Plan: Resolved (4) Pneumonia due to COVID-19 virus Is this a current diagnosis for this admission?: Yes Plan: Resolved (5) Hypotension Qualifiers: Hypotension type: other hypotension type Qualified Code(s): I95.89 - Other hypotension Is this a current diagnosis for this admission?: Yes Plan: Resolved (6) Coronary artery disease Qualifiers: Coronary Disease-Associated Artery/Lesion type: [place] artery [place] vs. transplanted heart: [place] heart Associated angina: without angina Qualified Code(s): I25.10 - Atherosclerotic heart disease of [place] coronary artery without angina pectoris Is this a current diagnosis for this admission?: Yes - Time Time Spent with patient: 25-34 minutes Level of Care: IMCU Medications reviewed and adjusted accordingly: Yes Anticipated discharge: Home Anticipated DC Timeframe: within 24 hours
--- NOTE | 2020-06-29 19:50 | PDOC DISCHARGE SUMMARY ---
Impression - Admit/DC Date/PCP Admission Date/Primary Care Provider: 06/16/20 23:14 IAN MUÑOZ MD Discharge Date: 06/30/20 - Discharge Diagnosis (1) Acute hypoxemic respiratory failure Is this a current diagnosis for this admission?: Yes (2) Pneumonia Is this a current diagnosis for this admission?: Yes (3) Acute kidney injury Is this a current diagnosis for this admission?: Yes (4) Pneumonia due to COVID-19 virus Is this a current diagnosis for this admission?: Yes (5) Hypotension Is this a current diagnosis for this admission?: Yes (6) Coronary artery disease Is this a current diagnosis for this admission?: Yes - Additional Information Discharge Diet: Regular Referrals: IAN MUÑOZ MD [Primary Care Provider] - 07/05/20 2:00 pm Prescriptions: RX: Atorvastatin Calcium [Lipitor 20 mg Tablet] 20 mg PO QHS #90 tablet RX: Carvedilol [Coreg 3.125 mg Tablet] 3.125 mg PO Q12 #180 tablet RX: Apixaban [Eliquis 5 mg Tablet] 5 mg PO Q12 #60 tablet RX: Gabapentin [Neurontin 300 mg Capsule] 600 mg PO Q8 #360 capsule RX: Ranolazine [Ranexa 500 mg Tab.sr] 500 mg PO Q12 #60 tab.sr.12h RX: Levothyroxine Sodium [Synthroid 0.1 mg Tablet] 0.1 mg PO Q6AM #90 tablet RX: Sertraline HCl [Zoloft 50 mg Tablet] 100 mg PO DAILY #90 tablet Home Medications: RX: Lemborexant [Dayvigo] 10 mg PO QHS 05/27/20 RX: Apixaban [Eliquis 5 mg Tablet] 5 mg PO Q12 #60 tablet 06/29/20 RX: Atorvastatin Calcium [Lipitor 20 mg Tablet] 20 mg PO QHS #90 tablet 06/29/20 RX: Carvedilol [Coreg 3.125 mg Tablet] 3.125 mg PO Q12 #180 tablet 06/29/20 RX: Gabapentin [Neurontin 300 mg Capsule] 600 mg PO Q8 #360 capsule 06/29/20 RX: Levothyroxine Sodium [Synthroid 0.1 mg Tablet] 0.1 mg PO Q6AM #90 tablet 06/29/20 RX: Ranolazine [Ranexa 500 mg Tab.sr] 500 mg PO Q12 #60 tab.sr.12h 06/29/20 RX: Sertraline HCl [Zoloft 50 mg Tablet] 100 mg PO DAILY #90 tablet 06/29/20 History of Present Illiness History of Present Illness: VALENTE MUNOZ is a 64 year old female, She has a history of systemic lupus erythematosus, coronary artery disease pulmonary embolism, hypothyroidism, she was recently admitted in this hospital for the management of severe hyponatremic encephalopath pneumonia, positive SARS-CoV-2 infection without hypoxemia, at the last admission she was treated with meropenem, intravenous dexamethasone, she was not treated with remdesivir because she does not have hypoxemia and does not meet the criteria for initiation of remdesivir, she was transferred from home to the emergency room by the ambulance for evaluation of unresponsiveness but when she arrived in the ER she was responsive but slow to answer questions, The em ergency room a chest x-ray was done, it demonstrated pneumonia in the left lung, She was also hypoxemic, the oxygen saturation was in the low 90s, she will need to be retested for SARS-CoV-2 infection.The medication that was reconciled by the pharmacist did not include her regular home meds Only 3 medication was reconciled. I am not sure of this patient ability to take care of herself at home, I believe she is becoming difficult for the daughter to take care of her. IV access is very challenging in this patient, the only IV access is in the foot which is not the best practice especially in the hospital setting, the surgeon could not access any IV access despite the use of ultrasound guidance Hospital Course Hospital Course: Patient was admitted for the management of pneumonia, she was diagnosed with SARS-CoV-2 pneumonia last time she was admitted, she did not require remdesivir because there was no hypoxemia. On this admission she presented with hypoxemia but because she was diagnosed with SARS-CoV-2 infection more than 10 days she did not meet the criteria set for administration of remdesivir. She was treated with IV antibiotic, dexamethasone, she also had episode of hypotension this was treated with IV fluid and midodrine.She had serial chest x-ray done the last chest x-ray from yesterday suggest complete resolution of the pneumonia. She was also restarted back on anticoagulant Eliquis she was supposed to be on lifelong anticoagulant she has a history of pulmonary embolism, unprovoked. She has history of ischemic heart disease she was started on statin therapy, beta- mariana. Patient was estimate deconditioned but she refused to be referred to detention for rehabilitation she preferred to go home with physical therapy Physical Exam Vital Signs: Temp Pulse Resp BP Pulse Ox 97.9 F 75 16 99/47 L 95 06/29/20 18:23 06/29/20 19:00 06/29/20 18:23 06/29/20 18:23 06/29/20 13:04 Intake & Output 06/28/20 06/29/20 06/30/20 06:59 06:59 06:59 Intake Total 1188 1020 910 Output Total 1206 220 2335 Balance 13 345 -390 Weight 99.2 kg 99.1 kg General appearance: PRESENT: no acute distress Eye exam: PRESENT: PERRLA Respiratory exam: PRESENT: clear to auscultation martínez Cardiovascular exam: PRESENT: +S1, +S2 GI/Abdominal exam: PRESENT: soft Neurological exam: PRESENT: alert, CN II-XII grossly intact Results Laboratory Results: WBC 6.6 10^3/uL (4.0-10.5) 06/27/20 05:35 RBC 3.73 10^6/uL (3.72-5.28) 06/27/20 05:35 Hgb 9.5 g/dL (12.0-15.5) L 06/27/20 05:35 Hct 28.1 % (36.0-47.0) L 06/27/20 05:35 MCV 76 fl (80-97) L 06/27/20 05:35 MCH 25.4 pg (27.0-33.4) L 06/27/20 05:35 MCHC 33.6 g/dL (32.0-36.0) 06/27/20 05:35 RDW 16.9 % (11.5-14.0) H 06/27/20 05:35 Plt Count 197 10^3/uL (150-450) 06/27/20 05:35 Lymph % (Auto) 19.0 % (13-45) 06/27/20 05:35 [place] % (Auto) 8.5 % (3-13) 06/27/20 05:35 Eos % (Auto) 2.7 % (0-6) 06/27/20 05:35 Baso % (Auto) 0.8 % (0-2) 06/27/20 05:35 Absolute Neuts (auto) 4.6 10^3/uL (1.7-8.2) 06/27/20 05:35 Absolute Lymphs (auto) 1.3 10^3/uL (0.5-4.7) 06/27/20 05:35 Absolute Monos (auto) 0.6 10^3/uL (0.1-1.4) 06/27/20 05:35 Absolute Eos (auto) 0.2 10^3/uL (0.0-0.6) 06/27/20 05:35 Absolute Basos (auto) 0.1 10^3/uL (0.0-0.2) 06/27/20 05:35 Seg Neutrophils % 69.0 % (42-78) 06/27/20 05:35 D-Dimer 3.34 ug/mL (0.00-0.50) H 06/23/20 20:59 Sodium 133.8 mmol/L (137-145) L 06/29/20 04:35 Potassium 3.8 mmol/L (3.6-5.0) 06/29/20 04:35 Chloride 100 mmol/L (98-107) 06/29/20 04:35 Carbon Dioxide 27 mmol/L (22-30) 06/29/20 04:35 Anion Gap 7 (5-19) 06/29/20 04:35 BUN 6 mg/dL (7-20) L 06/29/20 04:35 Creatinine 0.99 mg/dL (0.52-1.25) 06/29/20 04:35 Est GFR ( Amer) > 60 (>60) 06/29/20 04:35 Est GFR (MDRD) Non-Af 56 (>60) L 06/29/20 04:35 Glucose 84 mg/dL (75-110) 06/29/20 04:35 POC Glucose 121 mg/dL (70-110) H 06/16/20 19:24 Hemoglobin A1c % 5.1 % (4.7-6.0) 06/20/20 06:20 Lactic Acid 2.8 mmol/L (0.7-2.1) H 06/16/20 20:13 Calcium 7.7 mg/dL (8.4-10.2) L 06/29/20 04:35 Magnesium 1.7 mg/dL (1.6-2.3) 06/16/20 20:13 Ferritin 182.00 ng/mL (11.1-264.0) 06/20/20 06:20 Total Bilirubin 0.7 mg/dL (0.2-1.3) 06/20/20 06:20 Direct Bilirubin 0.4 mg/dL (0.0-0.4) 06/20/20 06:20 Neonat Total Bilirubin Not Reportable 06/20/20 06:20 Neonat Direct Bilirubin Not Reportable 06/20/20 06:20 Neonat Indirect Bili Not Reportable 06/20/20 06:20 AST 17 U/L (14-36) 06/20/20 06:20 ALT 7 U/L (<35) 06/20/20 06:20 Alkaline Phosphatase 90 U/L (38-126) 06/20/20 06:20 Creatine Kinase 22 U/L (30-135) L 06/16/20 20:13 CK-MB (CK-2) 1.11 ng/mL (<4.55) 06/16/20 20:13 Troponin I < 0.012 ng/mL 06/16/20 20:13 Troponin I Cancelled 06/16/20 20:13 C-Reactive Protein 15.0 mg/L (<10.0) H 06/16/20 20:13 Total Protein 4.9 g/dL (6.3-8.2) L 06/20/20 06:20 Albumin 2.7 g/dL (3.5-5.0) L 06/20/20 06:20 Urine Color STRAW 06/18/20 06:45 Urine Appearance CLEAR 06/18/20 06:45 Urine pH 6.0 (5.0-9.0) 06/18/20 06:45 Ur Specific [place] 1.009 06/18/20 06:45 Urine Protein NEGATIVE mg/dL (NEGATIVE) 06/18/20 06:45 Urine Glucose (UA) NEGATIVE mg/dL (NEGATIVE) 06/18/20 06:45 Urine Ketones NEGATIVE mg/dL (NEGATIVE) 06/18/20 06:45 Urine Blood NEGATIVE (NEGATIVE) 06/18/20 06:45 Urine Nitrite NEGATIVE (NEGATIVE) 06/17/20 18:00 Urine Nitrite (Reflex) NEGATIVE (NEGATIVE) 06/18/20 06:45 Urine Bilirubin NEGATIVE (NEGATIVE) 06/18/20 06:45 Urine Urobilinogen NEGATIVE mg/dL (<2.0) 06/18/20 06:45 Ur Leukocyte Esterase NEGATIVE (NEGATIVE) 06/17/20 18:00 Leukocyte Esterase Rfl LARGE (NEGATIVE) H 06/18/20 06:45 Urine WBC (Auto) 3 /HPF 06/17/20 18:00 Urine RBC (Auto) 6 /HPF 06/18/20 06:45 Urine Bacteria (Auto) TRACE /HPF 06/18/20 06:45 Urine WBC (Reflex) 44 /HPF 06/18/20 06:45 Squamous Epi Cells Auto <1 /HPF 06/18/20 06:45 Urine Mucus (Auto) RARE /LPF 06/18/20 06:45 Ur Yeast w Hyphae PRESENT /HPF 06/18/20 06:45 Urine Yeast (Budding) PRESENT /HPF 06/18/20 06:45 Urine Ascorbic Acid NEGATIVE (NEGATIVE) 06/18/20 06:45 COVID-19 Source See comment 06/17/20 03:45 COVID-19 ([place]) DETECTED (Not Detect) A 06/17/20 03:45 06/16/20 06/16/20 20:13 20:13 CK-MB (CK-2) 1.11 Troponin I < 0.012 Cancelled Impressions: Chest X-Ray 06/16/20 19:16 IMPRESSION: Patchy right mid to upper lung zone airspace disease. Consider atelectasis or pneumonia to include aspiration. Recommend follow-up to clearing. copyright 2010 [employer]- All Rights Reserved Chest X-Ray 06/19/20 00:00 IMPRESSION: Mild persistent interstitial changes in the right parahilar region. No dense consolidation or pleural effusion. Chest X-Ray 06/23/20 00:00 IMPRESSION: No interval change in the chest. Chest X-Ray 06/28/20 00:00 IMPRESSION: NO ACUTE RADIOGRAPHIC FINDING IN THE CHEST. Stroke Is this a Stroke Patient?: No Acute Heart Failure Is this a Heart Failure Patient?: No
[2020-06-29] MEDS: ATORVASTATIN CALCIUM 20 MG TABLET PO SCH (21:45)
[2020-06-30] MEDS: HYDROMORPHONE HCL INJ/PF 2 MG/ML AMPULE IV PRN (05:20)
[2020-06-30] MEDS: LEVOTHYROXINE SODIUM 0.1 MG TABLET PO SCH (05:20)
[2020-06-30] MEDS: GABAPENTIN 300 MG CAPSULE PO SCH (05:20)
[2020-06-30] MEDS: ONDANSETRON HCL INJ/PF 4 MG/2 ML SDV IV PRN (05:21)
[2020-06-30 08:57] VITALS: BP 151/85
[2020-06-30] MEDS: SERTRALINE HCL 50 MG TABLET PO SCH (10:04)
[2020-06-30] MEDS: RANOLAZINE 500 MG TAB.SR.12H PO SCH (10:04)
[2020-06-30] MEDS: MIDODRINE HCL 5 MG TABLET PO SCH (10:04)
[2020-06-30] MEDS: APIXABAN 5 MG TABLET PO SCH (10:04)
[2020-06-30] MEDS: CARVEDILOL 3.125 MG TABLET PO SCH (10:04)
== END 2020-06-30 11:15 | disposition home health service (06) | DRG 177 ==
LOC: ER 19:01 → EH 23:14 → 3W 06-17 02:35 → 3N 06-26 19:56
PROVIDERS: ADMIT Internal Medicine; ATTEND Internal Medicine
PROC: 06JY3ZZ Inspection of Lower Vein, Percutaneous Approach (ICD-10-PCS; principal; 2020-06-17)
DX: U07.1 COVID-19 (principal); J96.01 Acute respiratory failure with hypoxia; J12.89 Other viral pneumonia; E87.1 Hypo-osmolality and hyponatremia; J44.0 Chronic obstructive pulmonary disease with (acute) lower respiratory infection; I95.9 Hypotension, unspecified; I25.10 Atherosclerotic heart disease of native coronary artery without angina pectoris; M32.9 Systemic lupus erythematosus, unspecified; E03.9 Hypothyroidism, unspecified; E66.9 Obesity, unspecified; E78.5 Hyperlipidemia, unspecified; I10 Essential (primary) hypertension; K21.9 Gastro-esophageal reflux disease without esophagitis; F32.9 Major depressive disorder, single episode, unspecified; Z96.653 Presence of artificial knee joint, bilateral; Z96.649 Presence of unspecified artificial hip joint; I25.2 Old myocardial infarction; I87.2 Venous insufficiency (chronic) (peripheral); Z86.718 Personal history of other venous thrombosis and embolism; Z86.711 Personal history of pulmonary embolism; Z85.41 Personal history of malignant neoplasm of cervix uteri; Z85.43 Personal history of malignant neoplasm of ovary; Z86.14 Personal history of Methicillin resistant Staphylococcus aureus infection; Z95.5 Presence of coronary angioplasty implant and graft; Z87.891 Personal history of nicotine dependence; Z88.0 Allergy status to penicillin; Z88.8 Allergy status to other drugs, medicaments and biological substances; Z88.6 Allergy status to analgesic agent; Z88.3 Allergy status to other anti-infective agents; Z91.030 Bee allergy status; Z82.49 Family history of ischemic heart disease and other diseases of the circulatory system; Z80.9 Family history of malignant neoplasm, unspecified
CPT/HCPCS: 36415; 71045; 80048; 80053; 81001; 82550; 82553; 82728; 82962; 83036; 83605; 83735; 84484; 85025; 85379; 86140; 87040; 87077; 87086; 87150; 87186; 87635; 93005; 93010; 96361; 96374; 99285; C9803; J0692; J1170; J1642; J1644; J2185; J2310; J2405; J3490; J7030; J7120